=== PATIENT | female | born 1970 | race Caucasian/White ===

== ENCOUNTER 2016-10-11 20:53 | Emergency (ER) | payer MEDICARE, MEDICAID ==
[~2016-10-11] VITALS: Ht 160 cm; Wt 63.5 kg
--- NOTE | 2016-10-11 21:13 | Emergency Room Report ---
History of Present Illness General Chief Complaint: Female Urogenital Problems Source: Patient, EMS Present Illness HPI Patient is a 46-year-old female brought in from home for a possible clogged Huber catheter. Patient was noted to have a decreased urine output for the past 2 hours. Patient was noted a prior history of spina bifida. She had not been having any noted fever. Allergies: Coded Allergies: PENICILLIN G (Verified Allergy, Unknown, 10/11/16) Patient History Last Menstrual Period: Unable to obtain Now: No Reviewed Nursing Documentation: PMH: Agreed, PSxH: Agreed Nursing Documentation-PMH Past Medical History: No History, Except For Review of Systems All Other Systems: limited - by poor historian Physical Exam Vital Signs Date Time Temp Pulse Resp B/P Pulse Ox O2 Delivery O2 Flow Rate FiO2 10/11/16 20:53 96.8 98 16 112/74 94 Room Air General Appearance: well appearing, no apparent distress, alert, GCS 15 Head: normocephalic, atraumatic ENT: hearing grossly normal, normal voice Neck: full range of motion, supple Respiratory: no respiratory distress, speaking full sentences Cardiovascular #1: normal inspection, regular rate, rhythm Gastrointestinal: non tender, soft Musculoskeletal: no calf tenderness Neurologic: responsive, normal gait, other - eyes open, verbal output with echolalia Psychiatric: normal inspection, mood/affect normal Skin: no rash Medical Decision Making ER Course Patient presented for Huber catheter malfunction. Differential diagnosis included was not limited to the displacement Huber, clogged, renal failure among others.The patient was given prescription for Macrobid. She was discharged with family. The suprapubic catheter appeared to be working well.Patient family was advised to return if she began having fever persistent vomiting or other concerns. Last Vital Signs Date Time Temp Pulse Resp B/P Pulse Ox O2 Delivery O2 Flow Rate FiO2 10/11/16 20:53 96.8 98 16 112/74 94 Room Air Status: improved Disposition: HOME, SELF-CARE Condition: Stable Scripts Nitrofurantoin Monohyd/M-Cryst* (MACROBID 100 MG*) 100 Mg Capsule 100 MG ORAL EVERY 12 HOURS, #7 CAP Prov: Ahsan Simon 10/11/16 Ahsan Simon Oct 11, 2016 21:13
[2016-10-11] MEDS ORDERED: NITROFURANTOIN100 M2 ORAL (21:39)
[2016-10-11 21:51] VITALS: BP 115/86
[2016-10-11 22:00] VITALS: BP 115/86
[2016-11-13] MEDS ORDERED: LEVAQUIN750 MG ORAL (06:54)
== END 2016-10-11 22:10 | disposition home or self-care (01) ==
LOC: EDBD 20:53 → EMR 21:18
DX: Z46.6 Encounter for fitting and adjustment of urinary device (principal); R39.14 Feeling of incomplete bladder emptying; Q05.9 Spina bifida, unspecified; Z88.0 Allergy status to penicillin
CPT/HCPCS: 99283

== ENCOUNTER 2016-11-06 00:41 | Inpatient (IN) | payer MEDICARE, MEDICAID ==
[2016-11-06] VITALS (10 sets, daily range): BP systolic 104–126; BP diastolic 50–80
[~2016-11-06] VITALS: Ht 157.5 cm; Wt 77.1 kg
[~2016-11-06 00:41] MED LIST: NITROFURANTOIN100 M2 ORAL
[2016-11-06] MEDS ORDERED: Azithromycin 500 MG in NS 275 ML IV ONE (00:45)
[2016-11-06] MEDS ORDERED: Ipratropium 0.02% Inh Soln 2.5ml UD HHN ONE (00:45)
[2016-11-06] MEDS ORDERED: Albuterol ud Inhalation HHN ONE (00:45)
[2016-11-06] MEDS ORDERED: cefTRIAXone 1 GM in NS 55 ML IV ONE (00:45)
--- NOTE | 2016-11-06 00:52 | Emergency Room Report ---
History of Present Illness General Chief Complaint: To Be Triaged Source: Patient, Family Member, EMS Present Illness HPI EMS was called because the family is having difficulty with CPAP and the patient had low oxygen saturations. Apparently they couldn't get the oxygen O2 sat above 88%. Once EMS started high flow oxygen the oxygen saturation went up to 98%. The patient denies any pain. She denies any cough. She does have a nebulizer at home. She denies any wheezing also. The patient has spina bifida and mental retardation but is able to answer questions. She also has a suprapubic catheter. H/O hydrocephalus post COYOTE HUNTER shunt. Allergies: Coded Allergies: PENICILLIN G (Verified Allergy, Unknown, 10/11/16) Patient History Past Medical History: see triage record Past Surgical History: other - suprapubic catheter, COYOTE HUNTER shunt Social History: Denies: smoking Social History Narrative at home with sister Last Menstrual Period: Unknown Now: No Reviewed Nursing Documentation: PMH: Agreed, PSxH: Agreed Nursing Documentation-PMH Past Medical History: No History, Except For Hx Neurological Problems: Yes - Spina Bifida (Gustavo in place) Review of Systems All Other Systems: negative except mentioned in HPI Physical Exam Vital Signs Date Time Temp Pulse Resp B/P Pulse Ox O2 Delivery O2 Flow Rate FiO2 11/06/16 00:33 97.9 98 22 123/78 99 Non-Rebreather 15.0 General Appearance: other - short stature, Chronically Ill Head: other - facial assymmetry Eyes: bilateral eye PERRL, bilateral eye normal inspection ENT: moist mucus membranes Neck: supple Respiratory: no retraction, crackles, rales Cardiovascular #1: regular rate, rhythm Cardiovascular #2: 2+ radial (L) Gastrointestinal: normal bowel sounds, non tender, soft, no mass Genitourinary: other - suprapubic catheter Musculoskeletal: other - short stature with deformity of LE Neurologic: alert, responsive, other - yes no questions, LE parasis Psychiatric: depressed affect Skin: normal color, no rash Medical Decision Making Diagnostic Impression: Primary Impression: Sepsis Qualified Codes: A41.9 - Sepsis, unspecified organism Additional Impressions: Bilateral pneumonia Qualified Codes: J18.9 - Pneumonia, unspecified organism Spina bifida Qualified Codes: Q05.2 - Lumbar spina bifida with hydrocephalus Suprapubic catheter S/P COYOTE HUNTER shunt ER Course Patient presents with hypoxia. Ddx: pneumonia, aspiration, asthma, bronchitis amongst others. Patient complex. Also risk for UTI with suprapubic catheter. Evaluation with labs, EKG, CXR. Treatment with albuterol and antibiotics. CXR with bilateral infiltrates. WBC elevated as is lactic acid. Pyuria. Fluid resuscitation for sepsis initiated. BP improved. Patient improved with stable sats. Admitted tele Dr. Pryor. Laboratory Tests Test 11/06/16 00:46 11/06/16 00:57 White Blood Count 24.5 K/UL (4.8-10.8) *H Red Blood Count 6.05 M/UL (4.20-5.40) H Hemoglobin 13.4 G/DL (12.0-16.0) Hematocrit 43.6 % (37.0-47.0) Mean Corpuscular Volume 72 FL (80-99) L Mean Corpuscular Hemoglobin 22.1 PG (27.0-31.0) L Mean Corpuscular Hemoglobin Concent 30.7 G/DL (32.0-36.0) L Red Cell Distribution Width 17.4 % (11.6-14.8) H Platelet Count 365 K/UL (150-450) Mean Platelet Volume 6.2 FL (6.5-10.1) L Neutrophils (%) (Auto) % (45.0-75.0) Lymphocytes (%) (Auto) % (20.0-45.0) Monocytes (%) (Auto) % (1.0-10.0) Eosinophils (%) (Auto) % (0.0-3.0) Basophils (%) (Auto) % (0.0-2.0) Neutrophils % (Manual) Pending Lymphocytes % (Manual) Pending Platelet Estimate Pending Platelet Morphology Pending Prothrombin Time 10.1 SEC (9.30-11.50) Prothrombin Time INR 1.0 (0.9-1.1) PTT 30 SEC (23-33) Sodium Level 140 mEQ/L (135-145) Potassium Level 3.9 mEQ/L (3.4-4.9) Chloride Level 97 mEQ/L (98-107) L Carbon Dioxide Level 29 mEQ/L (20-30) Anion Gap 14 (5-15) Blood Urea Nitrogen 10 mg/dL (7-23) Creatinine 0.4 mg/dL (0.5-0.9) L Estimate Glomerular Filtration Rate > 60 mL/min (>60) Glucose Level 158 mg/dL (74-106) H Lactic Acid Level 3.50 mmol/L (0.66-2.22) H Calcium Level 9.3 mg/dL (8.6-10.2) Total Bilirubin 0.3 mg/dL (0.0-1.2) Aspartate Amino Transferase (AST) 12 U/L (5-40) Alanine Aminotransferase (ALT) 7 U/L (3-33) Alkaline Phosphatase 109 U/L (35-104) H Total Creatine Kinase 14 U/L (26-140) L Troponin I < 0.30 ng/mL (<=0.30) Pro-B-Type Natriuretic Peptide 62 pg/mL (0-125) Total Protein 7.9 g/dL (6.6-8.7) Albumin 3.4 g/dL (3.5-5.2) L Globulin 4.5 g/dL Albumin/Globulin Ratio 0.7 (1.0-2.7) L Urine Color Yellow Urine Appearance Cloudy Urine pH 8 (4.5-8.0) Urine Specific [place] 1.015 (1.005-1.035) Urine Protein 3+ (NEGATIVE) H Urine Glucose (UA) Negative (NEGATIVE) Urine Ketones 1+ (NEGATIVE) H Urine Occult Blood 4+ (NEGATIVE) H Urine Nitrite Positive (NEGATIVE) H Urine Bilirubin Negative (NEGATIVE) Urine Urobilinogen Normal MG/DL (0.0-1.0) Urine Leukocyte Esterase 3+ (NEGATIVE) H Urine RBC 5-10 /HPF (0 - 2) H Urine WBC 15-20 /HPF (0 - 2) H Urine Squamous Epithelial Cells None /LPF (NONE/OCC) Urine Triple Phosphate Crystals Moderate /LPF (NONE) H Urine Amorphous Sediment Many /LPF (NONE) H Urine Bacteria Many /HPF (NONE) H EKG Diagnostic Results Rate: tachycardiac ST Segments: no acute changes Rhythm Strip Diag. Results EP Interpretation: yes Rhythm: no PVC's, no ectopy, other - ST Chest X-Ray Diagnostic Results EP Interpretation: Yes Findings: no effusion, no pneumothorax, other - bilateral infiltrates, COYOTE HUNTER shunt , [place] rods Number of Views: 1 Last Vital Signs Date Time Temp Pulse Resp B/P Pulse Ox O2 Delivery O2 Flow Rate FiO2 11/06/16 00:33 97.9 98 22 123/78 99 Non-Rebreather 15.0 Status: improved Disposition: ADMITTED INPATIENT Condition: Serious Perfecto Patel M.D. Nov 06, 2016 00:52
[2016-11-06 01:07] LABS: APPEARANCE,URINE CLOUDY; KETONES,URINE 1+ (NEGATIVE); LEUKOCYTE ESTERASE ,URINE 3+ (NEGATIVE); NITRITE,URINE POSITIVE (NEGATIVE); PH,URINE 8 (4.5-8.0); PROTEIN,URINE 3+ (NEGATIVE); UROBILINOGEN,URINE NORMAL MG/DL (0.0-1.0)
[2016-11-06 01:08] LABS: MEAN CORPUSCULAR HEMOGLOBIN 22.1 PG (27.0-31.0); MEAN CORPUSCULAR HGB CONC 30.7 G/DL (32.0-36.0); MEAN CORPUSCULAR VOLUME 72 FL (80-99); MEAN PLATELET VOLUME 6.2 FL (6.5-10.1); PLATELET COUNT 365 K/UL (150-450); RED BLOOD COUNT 6.05 M/UL (4.20-5.40); RED CELL DISTRIBUTION WIDTH 17.4 % (11.6-14.8)
[2016-11-06 01:17] LABS: PROTHROMBIN TIME 10.1 SEC (9.30-11.50)
[2016-11-06] MEDS ORDERED: Azithromycin Inj IV ONE (01:18)
[2016-11-06 01:25] LABS: ALANINE AMINOTRANSFERASE 7 U/L (3-33); ALBUMIN/GLOBULIN RATIO 0.7 (1.0-2.7); ANION GAP 14 (5-15); ASPARTATE AMINO TRANSFERASE 12 U/L (5-40); CALCIUM 9.3 mg/dL (8.6-10.2); CARBON DIOXIDE 29 mEQ/L (20-30); CHLORIDE 97 mEQ/L (98-107); CREATININE 0.4 mg/dL (0.5-0.9); GLOMERULAR FILTRATION RATE > 60 mL/min (>60); HEMOLYSIS 8; POTASSIUM 3.9 mEQ/L (3.4-4.9); SODIUM 140 mEQ/L (135-145); TOTAL PROTEIN 7.9 g/dL (6.6-8.7)
[2016-11-06 01:30] LABS: WHITE BLOOD COUNT 24.5 K/UL (4.8-10.8)
[2016-11-06 01:32] LABS: REFLEX LACTIC ACID YES OR NO YES
[2016-11-06 01:38] LABS: WBC,URINE 15-20 /HPF (0 - 2)
[2016-11-06] MEDS ORDERED: DOCUSATE SODIU100 MG ORAL (01:38)
[2016-11-06] MEDS ORDERED: ELIQUIS5 MG PO (01:38)
[2016-11-06] MEDS ORDERED: MULTIVITAMINS1 EAC2 ORAL (01:38)
[2016-11-06] MEDS ORDERED: SENNA8.6 M2 PO (01:38)
[2016-11-06] MEDS ORDERED: ASCORBIC ACID500 MG ORAL (01:38)
[2016-11-06] MEDS ORDERED: TYLENOL325 MG ORAL (01:38)
[2016-11-06] MEDS ORDERED: LACTULOSE20 GM/301 ORAL (01:38)
[2016-11-06 01:39] LABS: AMORPHOUS SEDIMENT,UR MANY /LPF; BACTERIA,URINE MANY /HPF; TRIPLE PHOSPHATE CRYSTAL,UR MODERATE /LPF
[2016-11-06 01:40] LABS: TROPONIN I < 0.30 ng/mL (<=0.30)
[2016-11-06] MEDS ORDERED: Vancomycin 1 GM in D5W 275 ML IVPB ONE (01:45)
[2016-11-06 02:51] LABS: BAND NEUTROPHILS % (MANUAL) 31 % (0-8); BASOPHILS % (MANUAL) 0 % (0-2); EOSINOPHILS % (MANUAL) 0 % (0-3); LYMPHOCYTES % (MANUAL) 7 % (20-45); NEUTROPHILS % (MANUAL) 58 % (45-75); PLATELET ESTIMATE ADEQUATE; PLATELET MORPHOLOGY NORMAL; TOTAL CELLS COUNTED 100
[2016-11-06] MEDS ORDERED: Vancomycin 1gm inj IVPB ONE (02:59)
[2016-11-06 03:14] LABS: REFLEX LACTIC ACID YES OR NO YES
[2016-11-06] MEDS ORDERED: Mylanta II UD 30ml ORAL PRN (07:15)
[2016-11-06] MEDS ORDERED: Nitroglycerin Subl 0.4mg tab (Bottle Of 25) SL PRN (07:15)
[2016-11-06] MEDS ORDERED: DuoNeb 0.5-3(2.5)mg/3ml neb HHN PRN (07:15)
[2016-11-06] MEDS ORDERED: Miralax 17gm pkt ORAL PRN (07:15)
[2016-11-06] MEDS ORDERED: Amikacin Rx to dose MISC PRN (07:15)
[2016-11-06] MEDS ORDERED: Promethazine/Codeine 5ml UD ORAL PRN (07:15)
[2016-11-06] MEDS ORDERED: Amikacin 750 MG in NS 110 ML IV SCH (09:00)
[2016-11-06] MEDS: Heparin 5000 units/ml inj SUBQ SCH ×2 (10:03→21:52)
--- NOTE | 2016-11-06 11:22 | Consultation ---
Consult Note Consult Note ID Dic# [id number] ACE LIND M.D. Nov 06, 2016 11:22
[2016-11-06] MEDS: Vancomycin 1250mg/D5W 275ml IVPB SCH ×2 (12:28)
--- NOTE | 2016-11-06 13:41 | Cardiology Report ---
APPROVED REPORT EKG Measurement Heart [id number] [id number] Sinus tachycardia RAD Otherwise normal ECG
[2016-11-06] MEDS ORDERED: Vancomycin 1 GM in D5W 275 ML IVPB SCH (14:00)
[2016-11-06] MEDS: Aztreonam Inj 1 GM in NS 55 ML IVPB SCH ×2 (14:20→21:53)
--- NOTE | 2016-11-06 14:43 | History and Physical ---
History of Present Illness General Date patient seen: Nov 06, 2016 Reason for Hospitalization: Dyspnea/Respdistress Present Illness HPI 46 year old female with hx of leggett bifida and mental retardation, suprapubic catheter, hydrocephalus with HUMAN SERVICES SUPERVISOR shunt brought in by paramedics with CC of had low oxygen saturations. Once EMS started high flow oxygen the oxygen saturation went up to 98%. Initial evaluation in ER , showed that she had pulmonary edema in her CXR and very high WBC. She looked comfortable. She is admitted to [facility] for sepsis,pulmonary edema. Allergies: Coded Allergies: PENICILLIN G (Verified Allergy, Unknown, 10/11/16) Medication History Scheduled Apixaban (Eliquis), 5 MG PO BID, (Reported) Ascorbic Acid* (Ascorbic Acid*), 500 MG ORAL TWICE A DAY, (Reported) Docusate Sodium* (Docusate Sodium*), 100 MG ORAL TWICE A DAY, (Reported) Multivitamins* (Multivitamins*), 1 TAB ORAL DAILY, (Reported) Nitrofurantoin Monohyd/M-Cryst* (Macrobid 100 Mg*), 100 MG ORAL EVERY 12 HOURS Scheduled PRN Acetaminophen (Tylenol), 650 MG ORAL Q6H PRN for Prn Pain/Headache/Temp > 101, ( Reported) Miscellaneous Medications Lactulose (Lactulose*), 10 ML ORAL, (Reported) Sennosides (Senna), 8.6 MG PO, (Reported) Patient History Healthcare decision maker Resuscitation status Full Code Advanced Directive on File Past Medical/Surgical History Past Medical/Surgical History: (1) S/P HUMAN SERVICES SUPERVISOR shunt (2) Spina bifida (3) Suprapubic catheter Review of Systems All Other Systems: negative except mentioned in HPI Physical Exam General Appearance: WD/WN, no apparent distress Lines, tubes and drains: peripheral HEENT: normocephalic, atraumatic Neck: non-tender, normal alignment Respiratory/Chest: chest wall non-tender, lungs clear Cardiovascular/Chest: normal peripheral pulses Abdomen: normal bowel sounds Skin Exam: normal pigmentation 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, no motor/sensory deficits Last 24 Hour Vital Signs Date Time Temp Pulse Resp B/P Pulse Ox O2 Delivery O2 Flow Rate FiO2 11/06/16 11:36 98.3 108 20 111/80 97 Nasal Cannula 3.0 11/06/16 09:05 103 11/06/16 08:50 98.1 105 20 112/65 96 Nasal Cannula 3.0 11/06/16 08:10 95 17 113/62 97 Nasal Cannula 2.0 11/06/16 07:14 97.7 105 17 121/51 97 Nasal Cannula 2.0 11/06/16 06:44 97.7 105 17 121/51 97 Nasal Cannula 2.0 11/06/16 05:34 97.7 105 17 116/61 97 Nasal Cannula 2.0 11/06/16 03:46 97.7 104 18 126/76 100 Nasal Cannula 2.0 11/06/16 02:30 98.7 105 18 108/62 100 Nasal Cannula 2.0 11/06/16 01:51 101 18 100 Nasal Cannula 2.0 11/06/16 01:23 113 18 96 Nasal Cannula 2.0 11/06/16 01:22 113 18 Nasal Cannula 2.0 11/06/16 00:45 98.7 118 23 104/50 99 Nasal Cannula 4.0 11/06/16 00:45 118 23 Nasal Cannula 4.0 11/06/16 00:33 97.9 98 22 123/78 99 Non-Rebreather 15.0 Intake and Output 11/05/16 11/06/16 19:00 07:00 Intake Total 3935 ml Balance 3935 ml IV Total 1330 ml Other 2605 ml Laboratory Tests Test 11/06/16 00:46 11/06/16 00:57 11/06/16 02:30 11/06/16 10:20 White Blood Count 24.5 K/UL (4.8-10.8) *H Red Blood Count 6.05 M/UL (4.20-5.40) H Hemoglobin 13.4 G/DL (12.0-16.0) Hematocrit 43.6 % (37.0-47.0) Mean Corpuscular Volume 72 FL (80-99) L Mean Corpuscular Hemoglobin 22.1 PG (27.0-31.0) L Mean Corpuscular Hemoglobin Concent 30.7 G/DL (32.0-36.0) L Red Cell Distribution Width 17.4 % (11.6-14.8) H Platelet Count 365 K/UL (150-450) Mean Platelet Volume 6.2 FL (6.5-10.1) L Neutrophils (%) (Auto) % (45.0-75.0) Lymphocytes (%) (Auto) % (20.0-45.0) Monocytes (%) (Auto) % (1.0-10.0) Eosinophils (%) (Auto) % (0.0-3.0) Basophils (%) (Auto) % (0.0-2.0) Differential Total Cells Counted 100 Neutrophils % (Manual) 58 % (45-75) Lymphocytes % (Manual) 7 % (20-45) L Monocytes % (Manual) 4 % (1-10) Eosinophils % (Manual) 0 % (0-3) Basophils % (Manual) 0 % (0-2) Band Neutrophils 31 % (0-8) H Platelet Estimate Adequate Platelet Morphology Normal Red Blood Cell Morphology Normal Prothrombin Time 10.1 SEC (9.30-11.50) Prothromb Time International Ratio 1.0 (0.9-1.1) Activated Partial Thromboplast Time 30 SEC (23-33) Sodium Level 140 mEQ/L (135-145) Potassium Level 3.9 mEQ/L (3.4-4.9) Chloride Level 97 mEQ/L (98-107) L Carbon Dioxide Level 29 mEQ/L (20-30) Anion Gap 14 (5-15) Blood Urea Nitrogen 10 mg/dL (7-23) Creatinine 0.4 mg/dL (0.5-0.9) L Estimat Glomerular Filtration Rate > 60 mL/min (>60) Glucose Level 158 mg/dL (74-106) H Lactic Acid Level 3.50 mmol/L (0.66-2.22) H 3.00 mmol/L (0.66-2.22) H 1.90 mmol/L (0.66-2.22) Calcium Level 9.3 mg/dL (8.6-10.2) Total Bilirubin 0.3 mg/dL (0.0-1.2) Aspartate Amino Transf (AST/SGOT) 12 U/L (5-40) Alanine Aminotransferase (ALT/SGPT) 7 U/L (3-33) Alkaline Phosphatase 109 U/L (35-104) H Total Creatine Kinase 14 U/L (26-140) L Troponin I < 0.30 ng/mL (<=0.30) Pro-B-Type Natriuretic Peptide 62 pg/mL (0-125) Total Protein 7.9 g/dL (6.6-8.7) Albumin 3.4 g/dL (3.5-5.2) L Globulin 4.5 g/dL Albumin/Globulin Ratio 0.7 (1.0-2.7) L Urine Color Yellow Urine Appearance Cloudy Urine pH 8 (4.5-8.0) Urine Specific [place] 1.015 (1.005-1.035) Urine Protein 3+ (NEGATIVE) H Urine Glucose (UA) Negative (NEGATIVE) Urine Ketones 1+ (NEGATIVE) H Urine Occult Blood 4+ (NEGATIVE) H Urine Nitrite Positive (NEGATIVE) H Urine Bilirubin Negative (NEGATIVE) Urine Urobilinogen Normal MG/DL (0.0-1.0) Urine Leukocyte Esterase 3+ (NEGATIVE) H Urine RBC 5-10 /HPF (0 - 2) H Urine WBC 15-20 /HPF (0 - 2) H Urine Squamous Epithelial Cells None /LPF (NONE/OCC) Urine Triple Phosphate Crystals Moderate /LPF (NONE) H Urine Amorphous Sediment Many /LPF (NONE) H Urine Bacteria Many /HPF (NONE) H Height (Feet): 5 Height (Inches): 2.00 Weight (Pounds): 170 Medications Current Medications Medications (Trade) Dose Ordered Sig/Sandeep Route PRN Reason Start Time Stop Time Status Last Admin Dose Admin Acetaminophen (Tylenol) 650 mg Q4H PRN ORAL T>100.5 11/06/16 07:15 12/06/16 07:14 Al Hydroxide/Mg Hydroxide (Mylanta II) 30 ml Q6H PRN ORAL dyspepsia 11/06/16 07:15 12/06/16 07:14 Albuterol/ Ipratropium (DuoNeb 0.5-3(2.5)mg/3ml) 3 ml Q4H PRN HHN Shortness of Breath 11/06/16 07:15 11/11/16 07:14 Aztreonam/Sodium Chloride (Azactam/Sodium Chloride) 55 ml @ 110 mls/hr EVERY 8 HOURS IVPB 11/06/16 14:00 11/13/16 13:59 11/06/16 14:20 Heparin Sodium (Porcine) (Heparin 5000 units/ml) 5,000 units EVERY 12 HOURS SUBQ 4/17/17 09:00 12/06/16 08:59 11/06/16 10:03 Levofloxacin (Levaquin 750mg/ D5W) 150 ml @ 100 mls/hr Q24H IVPB 11/06/16 14:00 11/13/16 13:59 Nitroglycerin (Ntg) 0.4 mg Q5M PRN SL Prn Chest Pain 11/06/16 07:15 12/06/16 07:14 Polyethylene Glycol (Miralax) 17 gm DAILYPRN PRN ORAL Constipation 11/06/16 07:15 12/06/16 07:14 Promethazine HCl/ Codeine 5 ml 5 ml Q4H PRN ORAL For Cough 11/06/16 07:15 12/06/16 07:14 Temazepam (Restoril) 15 mg HSPRN PRN ORAL Insomnia 11/06/16 21:00 11/13/16 20:59 Vancomycin HCl 1.25 gm/Dextrose 275 ml @ 183.333 mls/hr Q12HR@0000,1200 IVPB 11/06/16 12:00 11/11/16 11:59 11/06/16 12:28 Vancomycin HCl 1 ea 1 ea DAILY PRN MISC . 11/06/16 07:30 12/06/16 07:29 Assessment/Plan Problem List: (1) Bilateral pneumonia ICD Codes: J18.9 - Pneumonia, unspecified organism SNOMED: 278486038, 545184007 Qualifiers: Qualified Codes: J18.9 - Pneumonia, unspecified organism (2) Sepsis ICD Codes: A41.9 - Sepsis, unspecified organism SNOMED: 42192225, 009127801 Qualifiers: Qualified Codes: A41.9 - Sepsis, unspecified organism (3) Pulmonary edema ICD Codes: J81.1 - Chronic pulmonary edema SNOMED: 55066635 (4) Spina bifida ICD Codes: Q05.9 - Spina bifida, unspecified SNOMED: 52734951, 440329249 Qualifiers: Qualified Codes: Q05.2 - Lumbar spina bifida with hydrocephalus (5) S/P HUMAN SERVICES SUPERVISOR shunt ICD Codes: Z98.2 - Presence of cerebrospinal fluid drainage device SNOMED: 229179688, 24785178 Assessment/Plan dominguez culture Iv antibiotics check echo sputum for c/s f/u wbc f/u BNP JARET HERNÁNDEZ Nov 06, 2016 14:43
--- NOTE | 2016-11-06 14:48 | Diagnostic Imaging Report ---
Indication: COUGH Technique: One view of the chest Comparison: none Findings: There is scoliotic deformity. There is a spinal fusion alysha. There is a right sided ventriculoperitoneal shunt tubing noted. There is diffuse interstitial and alveolar probable disease, likely pulmonary edema. The heart is mildly enlarged. No definite effusions. Impression: Bilateral diffuse interstitial and alveolar infiltrates versus edema. Borderline cardiomegaly Postsurgical changes, as described This agrees with the preliminary interpretation provided by the emergency room physician
--- NOTE | 2016-11-06 16:06 | Wound Care Consultation ---
Wound Assessment Wound Assessment : Wound Present on Admission: Yes New Wound: No Status Change of Wound: No Wound Location Body Site Modif: left Wound Location Body Site: buttocks Wound Type: pressure ulcer Alyssa Test: Does not Alyssa Pressure Ulcer Stage: IV/unstageable Wound Thickness: Full Thickness Wound Length: 8.0 Wound Width: 10.0 Wound Depth: 0.3 Percent of Wound [place]/Red: 100 Wound Drainage Description: Serosanguineous Wound Drainage Amount: Scant Wound Drainage Odor: Mild Odor Tissue Surrounding Wound: Macerated Wound General Appearance: Reddened, Draining Wound Comment #1 Left buttock stage IV/unstageable chronic pressure ulcer Recommendation -Left buttock chronic stage IV/unstageable pressure ulcer Cleanse with saline, pat dry, apply Hydrogel, apply calcium alginate, cover with bordered gauze daily and PRN soiled/dislodged -Turn and reposition -Keep clean and dry -Optimize nutrition -Offload both heels -Heel protector -Low air loss mattress -Assess and f/u accordingly for any changes YANN OWEN RN Nov 06, 2016 16:06
--- NOTE | 2016-11-06 21:28 | Consultation ---
DATE OF CONSULTATION: INFECTIOUS DISEASES CONSULTATION CONSULTING PHYSICIAN: Serafin Buck M.D REFERRING PHYSICIAN: Chyna Pryor M.D. REASON FOR CONSULTATION: Evaluation of the patient for sepsis, pneumonia, antibiotic management. HISTORY OF PRESENT ILLNESS: The patient is a 46-year-old female with multiple medical problems who resides at home with family, developed sudden onset of shortness of breath, diaphoresis and was brought to the hospital. With impression of pneumonia, the patient has been started on IV antibiotics. An Infectious diseases consultation has been requested for further evaluation of the patient and antibiotic management. The patient has history of episode about a month ago thus the patient was admitted in [facility] for two weeks. Infectious diseases consultation requested for further evaluation of patient antibiotic management. PAST MEDICAL HISTORY: 1. Spina bifida. 2. History of hydrocephalus status post AIR TRAFFIC CONTROL EQUIPMENT REPAIRER shunt. 3. History of suprapubic catheter placement. MEDICATIONS: IV Aztreonam, vancomycin, and amikacin. ALLERGIES: Penicillin. SOCIAL HISTORY: The patient lives at home. FAMILY HISTORY: Noncontributory. REVIEW OF SYMPTOMS: A 10-point review was done and except what is mentioned has been negative. PHYSICAL EXAMINATION: VITAL SIGNS: Temperature 98 degrees, blood pressure 112/65, pulse 86, respiratory rate 18. HEENT: Mild pale conjunctivae. No icterus. NECK: No lymphadenopathy. CHEST: Coarse breathing sounds. HEART: S1 and S2. ABDOMEN: Soft and obese. EXTREMITIES: No cyanosis or lesions. NEUROLOGIC: Awake and alert. LABORATORY DATA: White blood cells 24, hemoglobin 13, platelets 365,000. UA showed 15 to 20 white blood cells and 5 to 10 red blood cells. BUN 10 creatinine 0.4. ALT and AST unremarkable. Alkaline phosphatase 109. ASSESSMENT: The patient is a 46-year-old female, who was brought to the hospital due to shortness of breath. The patient was found to have leukocytosis. The patient has history of penicillin allergy. According to family, the patient does not have a significant cough; however, in view of her leukocytosis, it is important to rule out real bacteremia, also urinary tract infection is the likely source of patient's infection. PLAN: 1. We will continue the patient on the aztreonam, vancomycin, and start the patient on Levaquin. We will hold amikacin. 2. Monitor CBC. 3. Monitor BMP. 4. Monitor cultures( blood, urine, and sputum). 5. Monitor the patient's clinical course and laboratories, based on those we will do further recommendation. Thank you, Dr. Pryor, for allowing me to participate in the care of this patient. I will follow the patient with you during this hospitalization. Serafin Buck M.D. DR: Ki JOB#: [id number] CC:
--- NOTE | 2016-11-06 22:48 | Cardiology Report ---
APPROVED REPORT EXAM: Two-dimensional and M-mode echocardiogram with Doppler and color Doppler. INDICATION Left Ventricular Function M-Mode DIMENSIONS IVSd1.0 (0.7-1.1cm)Left Atrium (MM)3.5 (1.6-4.0cm) LVDd4.5 (3.5-5.6cm)Aortic Root3.4 (2.0-3.7cm) PWd0.7 (0.7-1.1cm)Aortic Cusp Exc.1.9 (1.5-2.0cm) LVDs2.0 (2.5-4.0cm) PWs1.2 cm Technically difficult study due to poor acoustic windows. Study quality precludes accurate assessment of regional wall motion. Normal left ventricular chamber size, systolic function and wall motion. Left ventricular ejection fraction estimated to be 60 %. No evidence of ventricular hypertrophy. No evidence of pericardial fat or effusion. All other cardiac chamber sizes are within normal limits. Mild focal aortic valve sclerosis with adequate cusp excursion. Mildly thickened mitral valve leaflets with normal excursion. Mild mitral annulus and aortic root calcification. Pulmonic valve not well visualized. Normal tricuspid valve structure. A color flow and spectral Doppler study was performed and revealed: No aortic regurgitation. Trace mitral regurgitation. Mitral diastolic velocities suggest reduced left ventricular relaxation (Grade I). Trace tricuspid regurgitation. Tricuspid systolic velocities suggests peak right ventricular systolic pressure of 47 mmHg, consistent with moderate pulmonary hypertension. No pulmonic regurgitation present.
[2016-11-07] VITALS: BP 111/56
[2016-11-07] MEDS: Vancomycin 1250mg/D5W 275ml IVPB SCH ×2 (00:53)
[2016-11-07 04:00] VITALS: BP 117/74
[2016-11-07] MEDS: Aztreonam Inj 1 GM in NS 55 ML IVPB SCH ×3 (06:01→21:43)
[2016-11-07 07:34] VITALS: BP 115/63
[2016-11-07 08:10] LABS: ALANINE AMINOTRANSFERASE 6 U/L (3-33); ANION GAP 10 (5-15); ASPARTATE AMINO TRANSFERASE 9 U/L (5-40); CALCIUM 8.6 mg/dL (8.6-10.2); CARBON DIOXIDE 29 mEQ/L (20-30); CHLORIDE 100 mEQ/L (98-107); CREATININE 0.2 mg/dL (0.5-0.9); GLOMERULAR FILTRATION RATE > 60 mL/min (>60); HEMOLYSIS 3; PHOSPHORUS 3.8 mg/dL (2.5-4.8); POTASSIUM 3.9 mEQ/L (3.4-4.9); SODIUM 139 mEQ/L (135-145); TOTAL PROTEIN 5.9 g/dL (6.6-8.7)
[2016-11-07 08:18] LABS: BASOPHILS % (AUTO) 0.2 % (0.0-2.0); EOSINOPHILS % (AUTO) 2.4 % (0.0-3.0); LYMPHOCYTES % (AUTO) 14.2 % (20.0-45.0); MEAN CORPUSCULAR HEMOGLOBIN 21.4 PG (27.0-31.0); MEAN CORPUSCULAR HGB CONC 29.8 G/DL (32.0-36.0); MEAN CORPUSCULAR VOLUME 72 FL (80-99); MEAN PLATELET VOLUME 6.1 FL (6.5-10.1); MONOCYTES % (AUTO) 2.9 % (1.0-10.0); NEUTROPHILS % (AUTO) 80.3 % (45.0-75.0); PLATELET COUNT 274 K/UL (150-450); RED BLOOD COUNT 4.36 M/UL (4.20-5.40); RED CELL DISTRIBUTION WIDTH 17.3 % (11.6-14.8); WHITE BLOOD COUNT 13.5 K/UL (4.8-10.8)
[2016-11-07] MEDS: Heparin 5000 units/ml inj SUBQ SCH ×2 (08:56→21:52)
--- NOTE | 2016-11-07 09:45 | Cardiology Progress Note ---
Assessment/Plan Assessment/Plan bilat pulm, infiltrate likely infectious mild diastolic dysfunction norm lv systolic function rece pulm embolism pulm htn nephrostomy decub / osteo chronic indwellin catheter dout pulm edema abdiaziz lfollwo repat ekg and trop [id number] Objective Last 24 Hour Vital Signs Date Time Temp Pulse Resp B/P Pulse Ox O2 Delivery O2 Flow Rate FiO2 11/07/16 07:34 97.9 92 15 115/63 93 Room Air 11/07/16 07:33 Nasal Cannula 3.0 32 11/07/16 07:32 98 Nasal Cannula 3.0 11/07/16 07:30 89 18 Nasal Cannula 3.0 11/07/16 04:00 98.0 83 20 117/74 98 Nasal Cannula 2.0 11/07/16 04:00 89 11/07/16 03:44 92 18 97 Nasal Cannula 2.0 11/07/16 00:00 97.2 92 19 111/56 98 Nasal Cannula 2.0 11/07/16 00:00 92 11/06/16 20:00 97.4 99 20 119/76 91 Room Air 11/06/16 20:00 99 11/06/16 19:40 96 Nasal Cannula 3.0 11/06/16 19:40 Nasal Cannula 3.0 32 11/06/16 19:38 103 18 Nasal Cannula 3.0 11/06/16 16:00 103 11/06/16 15:41 97.9 103 20 114/60 95 Nasal Cannula 3.0 11/06/16 12:00 109 11/06/16 11:36 98.3 108 20 111/80 97 Nasal Cannula 3.0 Intake and Output 11/06/16 11/07/16 19:00 07:00 Intake Total 959.666 ml 476.666 ml Output Total 1800 ml 800 ml Balance -840.334 ml -323.334 ml Intake Oral 170 ml IV Total 789.666 ml 476.666 ml Output Urine Total 1800 ml 800 ml # Bowel Movements 2 Laboratory Tests Test 11/06/16 10:20 11/07/16 07:05 Lactic Acid Level 1.90 mmol/L (0.66-2.22) White Blood Count 13.5 K/UL (4.8-10.8) H Red Blood Count 4.36 M/UL (4.20-5.40) Hemoglobin 9.4 G/DL (12.0-16.0) L Hematocrit 31.4 % (37.0-47.0) L Mean Corpuscular Volume 72 FL (80-99) L Mean Corpuscular Hemoglobin 21.4 PG (27.0-31.0) L Mean Corpuscular Hemoglobin Concent 29.8 G/DL (32.0-36.0) L Red Cell Distribution Width 17.3 % (11.6-14.8) H Platelet Count 274 K/UL (150-450) Mean Platelet Volume 6.1 FL (6.5-10.1) L Neutrophils (%) (Auto) 80.3 % (45.0-75.0) H Lymphocytes (%) (Auto) 14.2 % (20.0-45.0) L Monocytes (%) (Auto) 2.9 % (1.0-10.0) Eosinophils (%) (Auto) 2.4 % (0.0-3.0) Basophils (%) (Auto) 0.2 % (0.0-2.0) Sodium Level 139 mEQ/L (135-145) Potassium Level 3.9 mEQ/L (3.4-4.9) Chloride Level 100 mEQ/L (98-107) Carbon Dioxide Level 29 mEQ/L (20-30) Anion Gap 10 (5-15) Blood Urea Nitrogen 7 mg/dL (7-23) Creatinine 0.2 mg/dL (0.5-0.9) L Estimat Glomerular Filtration Rate > 60 mL/min (>60) Glucose Level 108 mg/dL (74-106) H Calcium Level 8.6 mg/dL (8.6-10.2) Phosphorus Level 3.8 mg/dL (2.5-4.8) Total Bilirubin < 0.2 mg/dL (0.0-1.2) Aspartate Amino Transf (AST/SGOT) 9 U/L (5-40) Alanine Aminotransferase (ALT/SGPT) 6 U/L (3-33) Alkaline Phosphatase 81 U/L (35-104) Pro-B-Type Natriuretic Peptide 364 pg/mL (0-125) H Total Protein 5.9 g/dL (6.6-8.7) L Albumin 3.0 g/dL (3.5-5.2) L Globulin 2.9 g/dL Albumin/Globulin Ratio 1.0 (1.0-2.7) Microbiology Date/Time Source Procedure Growth Status 11/06/16 00:46 Blood Blood Culture - Preliminary NO GROWTH AFTER 24 HOURS Resulted 11/06/16 00:31 Blood Blood Culture - Preliminary NO GROWTH AFTER 24 HOURS Resulted SABINE BOSS Nov 07, 2016 09:45
[2016-11-07] MEDS ORDERED: NS 275ml ONE (10:57)
[2016-11-07] MEDS ORDERED: Tubing IV Secondary IV ONE (10:57)
--- NOTE | 2016-11-07 11:43 | Diagnostic Imaging Report ---
Indication: DYSPNEA Technique: One view of the chest Comparison: 11/06/2016 Findings: Allowing for technical differences, stable or slightly improved bilateral interstitial and alveolar infiltrates versus edema. The heart remains mildly enlarged. Other findings are unchanged Impression: Stable or minimally improved bilateral parenchymal disease, over one day
[2016-11-07 11:47] LABS: TROPONIN I < 0.30 ng/mL (<=0.30)
[2016-11-07] MEDS ORDERED: LR 1000ml ONE (12:00)
[2016-11-07] MEDS ORDERED: Lidocaine 1% MPF 10mg/ml 5ml ONE (12:00)
[2016-11-07] MEDS ORDERED: Propofol 10mg/ml 20ml IV ONE (12:00)
[2016-11-07 12:18] VITALS: BP 117/60
--- NOTE | 2016-11-07 13:22 | Pulmonology Progress Note ---
Assessment/Plan Problems: (1) Bilateral pneumonia (2) Sepsis (3) Pulmonary edema (4) Spina bifida (5) S/P GUIDE RAIL CLEANER shunt Assessment/Plan improving cardio note appreciated IV antibiotics check cultures med/surg Subjective ROS Limited/Unobtainable: No Constitutional: Reports: no symptoms HEENT: Repors: no symptoms Allergies: Coded Allergies: PENICILLIN G (Verified Allergy, Unknown, 10/11/16) All Systems: reviewed and negative except above Objective Last 24 Hour Vital Signs Date Time Temp Pulse Resp B/P Pulse Ox O2 Delivery O2 Flow Rate FiO2 11/07/16 12:18 97.0 89 14 117/60 98 Room Air 11/07/16 08:00 100 11/07/16 07:34 97.9 92 15 115/63 93 Room Air 11/07/16 07:33 Nasal Cannula 3.0 32 11/07/16 07:32 98 Nasal Cannula 3.0 11/07/16 07:30 89 18 Nasal Cannula 3.0 11/07/16 04:00 98.0 83 20 117/74 98 Nasal Cannula 2.0 11/07/16 04:00 89 11/07/16 03:44 92 18 97 Nasal Cannula 2.0 11/07/16 00:00 97.2 92 19 111/56 98 Nasal Cannula 2.0 11/07/16 00:00 92 11/06/16 20:00 97.4 99 20 119/76 91 Room Air 11/06/16 20:00 99 11/06/16 19:40 96 Nasal Cannula 3.0 11/06/16 19:40 Nasal Cannula 3.0 32 11/06/16 19:38 103 18 Nasal Cannula 3.0 11/06/16 16:00 103 11/06/16 15:41 97.9 103 20 114/60 95 Nasal Cannula 3.0 Intake and Output 11/06/16 11/07/16 19:00 07:00 Intake Total 959.666 ml 476.666 ml Output Total 1800 ml 800 ml Balance -840.334 ml -323.334 ml Intake Oral 170 ml IV Total 789.666 ml 476.666 ml Output Urine Total 1800 ml 800 ml # Bowel Movements 2 General Appearance: WD/WN HEENT: normocephalic, atraumatic Respiratory/Chest: chest wall non-tender, lungs clear Breasts: no masses Cardiovascular: normal peripheral pulses, normal rate Abdomen: normal bowel sounds Genitourinary: normal external genitalia Neurologic/Psychiatric: buhr dresser II-XII grossly normal Microbiology Date/Time Source Procedure Growth Status 11/06/16 00:46 Blood Blood Culture - Preliminary NO GROWTH AFTER 24 HOURS Resulted 11/06/16 00:31 Blood Blood Culture - Preliminary NO GROWTH AFTER 24 HOURS Resulted 11/06/16 00:57 Urine,Clean Catch Urine Culture - Preliminary Resulted Laboratory Tests 11/07/16 07:05: White Blood Count 13.5H, Red Blood Count 4.36, Hemoglobin 9.4L, Hematocrit 31.4L , Mean Corpuscular Volume 72L, Mean Corpuscular Hemoglobin 21.4L, Mean Corpuscular Hemoglobin Concent 29.8L, Red Cell Distribution Width 17.3H, Platelet Count 274, Mean Platelet Volume 6.1L, Neutrophils (%) (Auto) 80.3H, Lymphocytes (%) (Auto) 14.2L, Monocytes (%) (Auto) 2.9, Eosinophils (%) (Auto) 2.4, Basophils (%) (Auto) 0.2, Sodium Level 139, Potassium Level 3.9, Chloride Level 100, Carbon Dioxide Level 29, Anion Gap 10, Blood Urea Nitrogen 7, Creatinine 0.2L, Estimat Glomerular Filtration Rate > 60, Glucose Level 108H, Calcium Level 8.6, Phosphorus Level 3.8, Total Bilirubin < 0.2, Aspartate Amino Transf (AST/SGOT) 9, Alanine Aminotransferase (ALT/SGPT) 6, Alkaline Phosphatase 81, Pro-B-Type Natriuretic Peptide 364H, Total Protein 5.9L, Albumin 3.0L, Globulin 2.9, Albumin/Globulin Ratio 1.0 11/07/16 11:20: Troponin I < 0.30, Vancomycin Level Trough 20.4H Current Medications Medications (Trade) Dose Ordered Sig/Sandeep Route PRN Reason Start Time Stop Time Status Last Admin Dose Admin Acetaminophen (Tylenol) 650 mg Q4H PRN ORAL T>100.5 11/06/16 07:15 12/06/16 07:14 Al Hydroxide/Mg Hydroxide (Mylanta II) 30 ml Q6H PRN ORAL dyspepsia 11/06/16 07:15 12/06/16 07:14 Albuterol/ Ipratropium (DuoNeb 0.5-3(2.5)mg/3ml) 3 ml Q4H PRN HHN Shortness of Breath 11/06/16 07:15 11/11/16 07:14 11/07/16 03:44 Aztreonam/Sodium Chloride (Azactam/Sodium Chloride) 55 ml @ 110 mls/hr EVERY 8 HOURS IVPB 11/06/16 14:00 11/13/16 13:59 11/07/16 06:01 Heparin Sodium (Porcine) (Heparin 5000 units/ml) 5,000 units EVERY 12 HOURS SUBQ 11/06/16 09:00 12/06/16 08:59 11/07/16 08:56 Levofloxacin 150 ml @ 100 mls/hr Q24H IVPB 11/06/16 14:00 11/13/16 13:59 11/06/16 14:55 Nitroglycerin (Ntg) 0.4 mg Q5M PRN SL Prn Chest Pain 11/06/16 07:15 12/06/16 07:14 Polyethylene Glycol (Miralax) 17 gm DAILYPRN PRN ORAL Constipation 11/06/16 07:15 12/06/16 07:14 Promethazine HCl/ Codeine 5 ml 5 ml Q4H PRN ORAL For Cough 11/06/16 07:15 12/06/16 07:14 Temazepam (Restoril) 15 mg HSPRN PRN ORAL Insomnia 11/06/16 21:00 11/13/16 20:59 Vancomycin HCl 1 ea 1 ea DAILY PRN MISC . 11/06/16 07:30 12/06/16 07:29 Vancomycin HCl/ Dextrose (Vancomycin/D5W) 275 ml @ 183.708 mls/hr Q12HR@0300,1500 IVPB 11/07/16 15:00 11/12/16 14:59 JARET HERNÁNDEZ Nov 07, 2016 13:22
[2016-11-07] MEDS ORDERED: Vancomycin 1gm/D5W 275ml IVPB SCH ×2 (15:00)
[2016-11-07 16:01] VITALS: BP 121/69
[2016-11-07] MEDS ORDERED: Nitroglycerin Subl 0.4mg tab (Bottle Of 25) SL PRN (18:00)
[2016-11-07] MEDS ORDERED: Mylanta II UD 30ml ORAL PRN (19:15)
[2016-11-07] MEDS ORDERED: DuoNeb 0.5-3(2.5)mg/3ml neb HHN PRN (19:15)
[2016-11-07] MEDS ORDERED: Promethazine/Codeine 5ml UD ORAL PRN (19:15)
[2016-11-07 20:00] VITALS: BP_SYST 114; BP_SYST 176; BP_DIAS 64; BP_DIAS 90
--- NOTE | 2016-11-07 20:48 | Consultation ---
DATE OF CONSULTATION: 11/07/2016 CARDIOLOGY CONSULTATION REFERRING PHYSICIAN: Chyna Pryor M.D. REASON FOR REFERRAL: Possible pulmonary edema. HISTORY OF PRESENT ILLNESS: This is a very unfortunate young female with multiple medical problems. The patient was apparently brought to the emergency room of [facility] because of low oxygen saturation and concern about pneumonia versus pulmonary edema has been there, so this consultation is requested. The patient herself is really not able to provide any meaningful answers and reliable answers and her responses to the questions appeared to be different on repeat questioning. It appears from [facility] data, which I have been able to report that the patient was at [facility] in August 2016 with a diagnosis of sepsis secondary to catheter associated E. coli urinary tract infection and recent pulmonary embolism in the segmental branch of the left lower lobe and has been in a convalescent facility, was noted to be in low oxygen saturation. PAST MEDICAL HISTORY: Positive sepsis, as mentioned history of pulmonary embolism, sleep apnea, stricture status post left nephrostomy tube due to urinary obstruction and hydronephrosis and history of ureteral erosion, long-term indwelling Huber catheter, history of cystocele and bladder prolapse complicated by incomplete emptying and stones, uterine prolapse, chronic left buttock and sacral stage IV decubitus ulcers complicated by osteomyelitis with posterior iliac crest and sacral osteomyelitis, Down's syndrome with congenital cognitive impairment, spina bifida complicated with chronic paraplegia, status post hip and spinal surgery and MANAGER PROGRAMMING shunting, chronic anemia secondary to chronic disease and she has had femur fracture surgery, cystoscopy, debridement of wounds. ALLERGIES: She is allergic to penicillin. SOCIAL HISTORY: She does not smoke or drink. She lives at the present time at the facility. She is single. Never worked. REVIEW OF SYSTEMS: Really unable to obtain. Information is obtained from review of the [facility] medical records. On questioning, review of systems, the patient denies and then admits to abdominal pain. Denies and admits to chest pain. Denies and admits to shortness of breath. Denies and admits to coughing on questioning. Denies history of having any fevers or chills. She indicates she is 11 years old. PHYSICAL EXAMINATION: GENERAL: The patient is a middle-aged female. NECK: Supple. No jugular venous distention. LUNGS: Crackles noted bilaterally. CARDIAC: Regular rate and rhythm. No heaves, thrills, gallops, or rubs are noted. ABDOMEN: Soft and nontender. Positive bowel sounds. EXTREMITIES: There is no clubbing, cyanosis, nor is there any edema. NEUROLOGICAL: She is awake, alert, and responsive and in no apparent respiratory distress. Lower extremities are malformed and no edema is noted. LABORATORY AND DIAGNOSTIC DATA: White count 24.5 yesterday and now gone to 13.5, hemoglobin 13.4, yesterday and now to 9.4, and the platelet count of 365,000 and now down to 274,000. She had a differential of 58 polys and 31% bands yesterday. Her sodium is 139, potassium 3.9, chloride 100, bicarbonate 29, BUN of 7, creatinine 0.2 and glucose of 108. Liver function tests were all normal, except pro-BNP was only 364 and was 62 at the time of admission yesterday. The lactic acid was 3.5 and now down to 1.9. Coagulation, INR 1.2 and PTT of 30. Urinalysis shows 15 to 20 WBCs, 5 to 10 RBCs, and 3+ leukocyte esterase. Chest x-ray shows bilateral diffuse interstitial and alveolar infiltrates versus edema, borderline cardiomegaly. An echocardiogram has been performed and shows technically difficult study with normal left ventricular systolic function with extent visualized ejection fraction 50%. No significant valvular pathology. There is mild diastolic relaxation abnormality. Pulmonary systolic pressure is 47. Telemetry shows sinus rhythm. EKG shows sinus tachycardia, rate of 115 from yesterday and no ST or T-wave abnormalities were noted. ASSESSMENT: 1. Bilateral pulmonary infiltrates probably likely infectious and less likely pulmonary edema. 2. Diastolic dysfunction. 3. History of pulmonary embolism on Eliquis. 4. Recurrent infections urinary tract infection. 5. Down's syndrome. 6. Spina bifida. 7. Sacral decubitus ulcers. 8. Hydrocephalus status post ventriculoperitoneal shunting. 9. Hydronephrosis status post nephrostomy tube placement. 10. Pulmonary embolism. PLAN: Dr. Pryor, this patient was seen in cardiac consultation. The patient's LV function appears to be normal and she has no significant ST or T-wave abnormalities on her EKG and repeat troponin was negative yesterday and I will repeat again. Her proBNP was only 62 yesterday and it is only 364 today, not much to suggest congestive heart failure in the patient's diagnosis for this respiratory insufficiency. The fact that she has such elevated white count with left shift is more suggestive of infectious process than heart failure, as a cause of her symptoms. I will repeat the cardiac enzymes and an EKG and will follow vital signs and provide further assistance as become necessary. She does have some pulmonary hypertension, which may be result of her obesity as well as pulmonary emboli that she had sustained previously. The patient has been followed by Infectious Disease and I will follow the patient along with you. Irving Mackey M.D. DR: URIEL JOB#: [id number] CC:
[2016-11-08] VITALS (7 sets, daily range): BP systolic 105–127; BP diastolic 61–83
[2016-11-08] MEDS: Vancomycin 1 GM in D5W 275 ML IVPB SCH ×2 (02:47→16:03)
[2016-11-08] MEDS: Aztreonam Inj 1 GM in NS 55 ML IVPB SCH ×3 (05:37→20:47)
[2016-11-08 06:55] LABS: BASOPHILS % (AUTO) 0.7 % (0.0-2.0); EOSINOPHILS % (AUTO) 2.8 % (0.0-3.0); LYMPHOCYTES % (AUTO) 16.9 % (20.0-45.0); MEAN CORPUSCULAR HEMOGLOBIN 21.8 PG (27.0-31.0); MEAN CORPUSCULAR HGB CONC 30.6 G/DL (32.0-36.0); MEAN CORPUSCULAR VOLUME 71 FL (80-99); MEAN PLATELET VOLUME 6.2 FL (6.5-10.1); NEUTROPHILS % (AUTO) 75.7 % (45.0-75.0); PLATELET COUNT 293 K/UL (150-450); RED BLOOD COUNT 4.97 M/UL (4.20-5.40); RED CELL DISTRIBUTION WIDTH 17.1 % (11.6-14.8); WHITE BLOOD COUNT 10.1 K/UL (4.8-10.8)
[2016-11-08 07:02] LABS: PROTHROMBIN TIME 10.5 SEC (9.30-11.50)
[2016-11-08 07:06] LABS: ALANINE AMINOTRANSFERASE 5 U/L (3-33); ALBUMIN/GLOBULIN RATIO 0.7 (1.0-2.7); ANION GAP 11 (5-15); ASPARTATE AMINO TRANSFERASE 10 U/L (5-40); CALCIUM 9.1 mg/dL (8.6-10.2); CARBON DIOXIDE 30 mEQ/L (20-30); CHLORIDE 97 mEQ/L (98-107); CREATININE 0.3 mg/dL (0.5-0.9); GLOMERULAR FILTRATION RATE > 60 mL/min (>60); HEMOLYSIS 12; MAGNESIUM 1.8 mg/dL (1.7-2.5); PHOSPHORUS 4.3 mg/dL (2.5-4.8); POTASSIUM 4.3 mEQ/L (3.4-4.9); SODIUM 138 mEQ/L (135-145)
[2016-11-08] MEDS ORDERED: Miralax 17gm pkt ORAL PRN (07:15)
[2016-11-08] MEDS: Heparin 5000 units/ml inj SUBQ SCH ×2 (08:46→20:54)
[2016-11-08] MEDS ORDERED: Tubing IV Secondary IV ONE (09:52)
--- NOTE | 2016-11-08 16:08 | Infectious Diseases Prog Note ---
Assessment/Plan Assessment/Plan A: The patient is a 46-year-old female with Sepsis Pneumonia cxray : Stable or minimally improved bilateral parenchymal disease, over one day UTI : GNR x 2 Spina bifida History of hydrocephalus status post LOW PRESSURE KETTLE OPERATOR shunt History of suprapubic catheter placement PLAN: cont on the aztreonam, vancomycin and Levaquin d# 2 Monitor CBC. Monitor BMP. Monitor cultures( blood, urine, and sputum) Subjective Constitutional: Denies: anorexia, chills, drenching sweats, fatigue, fever, no symptoms, other Allergies: Coded Allergies: PENICILLIN G (Verified Allergy, Unknown, 10/11/16) Objective Vital Signs Last 24 Hour Vital Signs Date Time Temp Pulse Resp B/P Pulse Ox O2 Delivery O2 Flow Rate FiO2 11/08/16 12:15 97.2 81 18 127/80 92 Nasal Cannula 2.0 11/08/16 08:56 95 Nasal Cannula 3.0 11/08/16 08:56 90 16 Nasal Cannula 3.0 11/08/16 08:56 Nasal Cannula 3.0 32 11/08/16 08:15 97.3 85 18 115/74 91 Nasal Cannula 2.0 11/08/16 04:00 97.3 96 18 120/73 98 Nasal Cannula 2.0 11/08/16 00:00 97.3 90 18 116/74 96 Nasal Cannula 2.0 11/07/16 20:45 94 Nasal Cannula 2.0 11/07/16 20:00 98.1 94 18 114/64 90 Room Air 11/07/16 19:34 Nasal Cannula 3.0 32 11/07/16 19:33 90 18 Nasal Cannula 3.0 11/07/16 19:33 96 Nasal Cannula 3.0 11/07/16 16:01 97.0 101 20 121/69 96 Room Air 11/07/16 16:00 94 Height (Feet): 5 Height (Inches): 2.00 Weight (Pounds): 170 HEENT: anicteric Respiratory/Chest: normal breath sounds Cardiovascular: regular rhythm Abdomen: no organomegaly Microbiology Date/Time Source Procedure Growth Status 11/06/16 00:46 Blood Blood Culture - Preliminary NO GROWTH AFTER 48 HOURS Resulted 11/06/16 00:31 Blood Blood Culture - Preliminary NO GROWTH AFTER 48 HOURS Resulted 11/06/16 00:57 Urine,Clean Catch Urine Culture - Preliminary Gram Negative Bacillus 1 Gram Negative Bacillus 2 Resulted Laboratory Tests Test 11/08/16 06:25 White Blood Count 10.1 K/UL (4.8-10.8) Red Blood Count 4.97 M/UL (4.20-5.40) Hemoglobin 10.8 G/DL (12.0-16.0) L Hematocrit 35.4 % (37.0-47.0) L Mean Corpuscular Volume 71 FL (80-99) L Mean Corpuscular Hemoglobin 21.8 PG (27.0-31.0) L Mean Corpuscular Hemoglobin Concent 30.6 G/DL (32.0-36.0) L Red Cell Distribution Width 17.1 % (11.6-14.8) H Platelet Count 293 K/UL (150-450) Mean Platelet Volume 6.2 FL (6.5-10.1) L Neutrophils (%) (Auto) 75.7 % (45.0-75.0) H Lymphocytes (%) (Auto) 16.9 % (20.0-45.0) L Monocytes (%) (Auto) 4.0 % (1.0-10.0) Eosinophils (%) (Auto) 2.8 % (0.0-3.0) Basophils (%) (Auto) 0.7 % (0.0-2.0) Prothrombin Time 10.5 SEC (9.30-11.50) Prothromb Time International Ratio 1.0 (0.9-1.1) Activated Partial Thromboplast Time 29 SEC (23-33) Sodium Level 138 mEQ/L (135-145) Potassium Level 4.3 mEQ/L (3.4-4.9) Chloride Level 97 mEQ/L (98-107) L Carbon Dioxide Level 30 mEQ/L (20-30) Anion Gap 11 (5-15) Blood Urea Nitrogen 7 mg/dL (7-23) Creatinine 0.3 mg/dL (0.5-0.9) L Estimat Glomerular Filtration Rate > 60 mL/min (>60) Glucose Level 112 mg/dL (74-106) H Calcium Level 9.1 mg/dL (8.6-10.2) Phosphorus Level 4.3 mg/dL (2.5-4.8) Magnesium Level 1.8 mg/dL (1.7-2.5) Total Bilirubin < 0.2 mg/dL (0.0-1.2) Aspartate Amino Transf (AST/SGOT) 10 U/L (5-40) Alanine Aminotransferase (ALT/SGPT) 5 U/L (3-33) Alkaline Phosphatase 82 U/L (35-104) Total Protein 7.0 g/dL (6.6-8.7) Albumin 3.1 g/dL (3.5-5.2) L Globulin 3.9 g/dL Albumin/Globulin Ratio 0.7 (1.0-2.7) L Current Medications Medications (Trade) Dose Ordered Sig/Sandeep Route PRN Reason Start Time Stop Time Status Last Admin Dose Admin Acetaminophen (Tylenol) 650 mg Q4H PRN ORAL T>100.5 11/07/16 19:15 12/07/16 19:14 Al Hydroxide/Mg Hydroxide (Mylanta II) 30 ml Q6H PRN ORAL dyspepsia 11/07/16 19:15 12/07/16 19:14 Albuterol/ Ipratropium (DuoNeb 0.5-3(2.5)mg/3ml) 3 ml Q4H PRN HHN Shortness of Breath 11/07/16 19:15 11/12/16 19:14 Aztreonam 1 gm/ Sodium Chloride 55 ml @ 110 mls/hr EVERY 8 HOURS IVPB 11/07/16 22:00 11/14/16 21:59 11/08/16 13:28 Heparin Sodium (Porcine) (Heparin 5000 units/ml) 5,000 units EVERY 12 HOURS SUBQ 11/07/16 21:00 12/07/16 20:59 11/08/16 08:46 Levofloxacin 150 ml @ 100 mls/hr Q24H IVPB 11/08/16 14:00 11/15/16 13:59 11/08/16 14:02 Nitroglycerin (Ntg) 0.4 mg Q5M PRN SL Prn Chest Pain 11/07/16 18:00 12/07/16 17:59 Polyethylene Glycol (Miralax) 17 gm DAILYPRN PRN ORAL Constipation 11/08/16 07:15 12/08/16 07:14 Promethazine HCl/ Codeine (Phenergan with Codeine) 5 ml Q4H PRN ORAL For Cough 11/07/16 19:15 12/07/16 19:14 Temazepam (Restoril) 15 mg HSPRN PRN ORAL Insomnia 11/07/16 21:00 11/14/16 20:59 Vancomycin HCl (Vanco rx to dose) 1 ea DAILY PRN MISC . 11/08/16 09:00 12/08/16 08:59 Vancomycin HCl/ Dextrose (Vancomycin/D5W) 275 ml @ 183.708 mls/hr Q12HR@0300,1500 IVPB 11/08/16 03:00 11/13/16 02:59 11/08/16 02:47 ACE LIND M.D. Nov 08, 2016 16:07
--- NOTE | 2016-11-08 18:06 | Pulmonology Progress Note ---
Assessment/Plan Problems: (1) Bilateral pneumonia (2) Sepsis (3) Pulmonary edema (4) Spina bifida (5) S/P NURSE MIDWIFE shunt Assessment/Plan afebrile wbc normal now cultures still pending improving cardio note appreciated IV antibiotics check cultures med/surg Subjective ROS Limited/Unobtainable: No Interval Events: comfortable, awake, wants her mama Allergies: Coded Allergies: PENICILLIN G (Verified Allergy, Unknown, 10/11/16) Objective Last 24 Hour Vital Signs Date Time Temp Pulse Resp B/P Pulse Ox O2 Delivery O2 Flow Rate FiO2 11/08/16 16:00 97.4 81 18 127/77 98 Nasal Cannula 2.0 11/08/16 12:15 97.2 81 18 127/80 92 Nasal Cannula 2.0 11/08/16 08:56 95 Nasal Cannula 3.0 11/08/16 08:56 90 16 Nasal Cannula 3.0 11/08/16 08:56 Nasal Cannula 3.0 32 11/08/16 08:15 97.3 85 18 115/74 91 Nasal Cannula 2.0 11/08/16 04:00 97.3 96 18 120/73 98 Nasal Cannula 2.0 11/08/16 00:00 97.3 90 18 116/74 96 Nasal Cannula 2.0 11/07/16 20:45 94 Nasal Cannula 2.0 11/07/16 20:00 98.1 94 18 114/64 90 Room Air 11/07/16 19:34 Nasal Cannula 3.0 32 11/07/16 19:33 90 18 Nasal Cannula 3.0 11/07/16 19:33 96 Nasal Cannula 3.0 Intake and Output 11/07/16 11/08/16 18:59 06:59 Intake Total 1138.708 ml 385.000 ml Output Total 1500 ml 550 ml Balance -361.292 ml -165.000 ml Intake Oral 750 ml IV Total 388.708 ml 385.000 ml Output Urine Total 1500 ml 550 ml Objective General Appearance: WD/WN HEENT: normocephalic Respiratory/Chest: chest wall non-tender, lungs clear Cardiovascular: normal peripheral pulses, normal rate Abdomen: normal bowel sounds EXT: no c/c/e Microbiology Date/Time Source Procedure Growth Status 11/06/16 00:46 Blood Blood Culture - Preliminary NO GROWTH AFTER 48 HOURS Resulted 11/06/16 00:31 Blood Blood Culture - Preliminary NO GROWTH AFTER 48 HOURS Resulted 11/06/16 00:57 Urine,Clean Catch Urine Culture - Preliminary Gram Negative Bacillus 1 Gram Negative Bacillus 2 Resulted Laboratory Tests 11/08/16 06:25: White Blood Count 10.1, Red Blood Count 4.97, Hemoglobin 10.8L, Hematocrit 35.4L , Mean Corpuscular Volume 71L, Mean Corpuscular Hemoglobin 21.8L, Mean Corpuscular Hemoglobin Concent 30.6L, Red Cell Distribution Width 17.1H, Platelet Count 293, Mean Platelet Volume 6.2L, Neutrophils (%) (Auto) 75.7H, Lymphocytes (%) (Auto) 16.9L, Monocytes (%) (Auto) 4.0, Eosinophils (%) (Auto) 2.8, Basophils (%) (Auto) 0.7, Prothrombin Time 10.5, Prothromb Time International Ratio 1.0, Activated Partial Thromboplast Time 29, Sodium Level 138, Potassium Level 4.3, Chloride Level 97L, Carbon Dioxide Level 30, Anion Gap 11, Blood Urea Nitrogen 7, Creatinine 0.3L, Estimat Glomerular Filtration Rate > 60, Glucose Level 112H, Calcium Level 9.1, Phosphorus Level 4.3, Magnesium Level 1.8, Total Bilirubin < 0.2, Aspartate Amino Transf (AST/SGOT) 10 , Alanine Aminotransferase (ALT/SGPT) 5, Alkaline Phosphatase 82, Total Protein 7.0, Albumin 3.1L, Globulin 3.9, Albumin/Globulin Ratio 0.7L Current Medications Medications (Trade) Dose Ordered Sig/Sandeep Route PRN Reason Start Time Stop Time Status Last Admin Dose Admin Acetaminophen (Tylenol) 650 mg Q4H PRN ORAL T>100.5 11/07/16 19:15 12/07/16 19:14 Al Hydroxide/Mg Hydroxide (Mylanta II) 30 ml Q6H PRN ORAL dyspepsia 11/07/16 19:15 12/07/16 19:14 Albuterol/ Ipratropium (DuoNeb 0.5-3(2.5)mg/3ml) 3 ml Q4H PRN HHN Shortness of Breath 11/07/16 19:15 11/12/16 19:14 Aztreonam 1 gm/ Sodium Chloride 55 ml @ 110 mls/hr EVERY 8 HOURS IVPB 11/07/16 22:00 11/14/16 21:59 11/08/16 13:28 Heparin Sodium (Porcine) (Heparin 5000 units/ml) 5,000 units EVERY 12 HOURS SUBQ 11/07/16 21:00 12/07/16 20:59 11/08/16 08:46 Levofloxacin 150 ml @ 100 mls/hr Q24H IVPB 11/08/16 14:00 11/15/16 13:59 11/08/16 14:02 Nitroglycerin (Ntg) 0.4 mg Q5M PRN SL Prn Chest Pain 11/07/16 18:00 12/07/16 17:59 Polyethylene Glycol (Miralax) 17 gm DAILYPRN PRN ORAL Constipation 11/08/16 07:15 12/08/16 07:14 Promethazine HCl/ Codeine (Phenergan with Codeine) 5 ml Q4H PRN ORAL For Cough 11/07/16 19:15 12/07/16 19:14 Temazepam (Restoril) 15 mg HSPRN PRN ORAL Insomnia 11/07/16 21:00 11/14/16 20:59 Vancomycin HCl (Vanco rx to dose) 1 ea DAILY PRN MISC . 11/08/16 09:00 12/08/16 08:59 Vancomycin HCl/ Dextrose (Vancomycin/D5W) 275 ml @ 183.708 mls/hr Q12HR@0300,1500 IVPB 11/08/16 03:00 11/13/16 02:59 11/08/16 16:03 JARET HERNÁNDEZ Nov 08, 2016 18:06
[2016-11-09] MEDS: Vancomycin 1 GM in D5W 275 ML IVPB SCH (02:56)
[2016-11-09 03:49] VITALS: BP 112/71
[2016-11-09] MEDS: Aztreonam Inj 1 GM in NS 55 ML IVPB SCH ×3 (04:51→21:42)
[2016-11-09 07:20] LABS: BASOPHILS % (AUTO) 0.6 % (0.0-2.0); EOSINOPHILS % (AUTO) 3.4 % (0.0-3.0); MEAN CORPUSCULAR HEMOGLOBIN 21.8 PG (27.0-31.0); MEAN CORPUSCULAR HGB CONC 29.8 G/DL (32.0-36.0); MEAN CORPUSCULAR VOLUME 73 FL (80-99); MEAN PLATELET VOLUME 5.9 FL (6.5-10.1); MONOCYTES % (AUTO) 5.5 % (1.0-10.0); NEUTROPHILS % (AUTO) 68.6 % (45.0-75.0); PLATELET COUNT 358 K/UL (150-450); RED BLOOD COUNT 5.44 M/UL (4.20-5.40); RED CELL DISTRIBUTION WIDTH 17.8 % (11.6-14.8); WHITE BLOOD COUNT 8.4 K/UL (4.8-10.8)
[2016-11-09 07:46] LABS: ALANINE AMINOTRANSFERASE 7 U/L (3-33); ALBUMIN/GLOBULIN RATIO 0.8 (1.0-2.7); ANION GAP 10 (5-15); ASPARTATE AMINO TRANSFERASE 9 U/L (5-40); CALCIUM 9.2 mg/dL (8.6-10.2); CARBON DIOXIDE 32 mEQ/L (20-30); CHLORIDE 96 mEQ/L (98-107); CREATININE 0.3 mg/dL (0.5-0.9); GLOMERULAR FILTRATION RATE > 60 mL/min (>60); HEMOLYSIS 4; MAGNESIUM 1.9 mg/dL (1.7-2.5); PHOSPHORUS 4.6 mg/dL (2.5-4.8); POTASSIUM 3.8 mEQ/L (3.4-4.9); SODIUM 138 mEQ/L (135-145); TOTAL PROTEIN 7.2 g/dL (6.6-8.7)
[2016-11-09 08:14] VITALS: BP 115/60
[2016-11-09 09:24] LABS: ERYTHROCYTE SEDIMENTATION RATE 30 MM/HR (0-20)
[2016-11-09] MEDS: Heparin 5000 units/ml inj SUBQ SCH ×2 (09:56→21:50)
--- NOTE | 2016-11-09 10:25 | Infectious Diseases Prog Note ---
Assessment/Plan Assessment/Plan A: The patient is a 46-year-old female with leukocytosis , SP Sepsis Pneumonia cxray : Stable or minimally improved bilateral parenchymal disease, over one day UTI : P mirabilis, E coli Spina bifida History of hydrocephalus status post SOLDERER TORCH shunt History of suprapubic catheter placement PLAN: cont on the aztreonam and Levaquin d# 3 / 7 , DC vancomycin d# 3 Monitor CBC. Monitor BMP. Monitor cultures( blood and sputum) Subjective Constitutional: Denies: anorexia, chills, drenching sweats, fatigue, fever, no symptoms, other Allergies: Coded Allergies: PENICILLIN G (Verified Allergy, Unknown, 10/11/16) Objective Vital Signs Last 24 Hour Vital Signs Date Time Temp Pulse Resp B/P Pulse Ox O2 Delivery O2 Flow Rate FiO2 11/09/16 08:14 98.4 74 20 115/60 100 Nasal Cannula 2.0 11/09/16 07:26 81 18 Nasal Cannula 2.0 28 11/09/16 07:26 Nasal Cannula 2.0 28 11/09/16 07:26 98 Nasal Cannula 2.0 28 11/09/16 03:49 97.9 82 18 112/71 98 Nasal Cannula 2.0 11/08/16 23:36 97.9 99 18 105/61 97 Room Air 11/08/16 20:00 98.2 85 18 115/83 94 Nasal Cannula 2.0 11/08/16 19:30 93 Nasal Cannula 2.0 28 11/08/16 19:30 86 18 Nasal Cannula 2.0 28 11/08/16 19:30 Nasal Cannula 2.0 28 11/08/16 16:00 97.4 81 18 127/77 98 Nasal Cannula 2.0 11/08/16 12:15 97.2 81 18 127/80 92 Nasal Cannula 2.0 Height (Feet): 5 Height (Inches): 2.00 Weight (Pounds): 170 HEENT: atraumatic Respiratory/Chest: normal breath sounds Cardiovascular: regular rhythm Abdomen: no organomegaly Laboratory Tests Test 11/09/16 06:35 White Blood Count 8.4 K/UL (4.8-10.8) Red Blood Count 5.44 M/UL (4.20-5.40) H Hemoglobin 11.9 G/DL (12.0-16.0) L Hematocrit 39.8 % (37.0-47.0) Mean Corpuscular Volume 73 FL (80-99) L Mean Corpuscular Hemoglobin 21.8 PG (27.0-31.0) L Mean Corpuscular Hemoglobin Concent 29.8 G/DL (32.0-36.0) L Red Cell Distribution Width 17.8 % (11.6-14.8) H Platelet Count 358 K/UL (150-450) Mean Platelet Volume 5.9 FL (6.5-10.1) L Neutrophils (%) (Auto) 68.6 % (45.0-75.0) Lymphocytes (%) (Auto) 22.0 % (20.0-45.0) Monocytes (%) (Auto) 5.5 % (1.0-10.0) Eosinophils (%) (Auto) 3.4 % (0.0-3.0) H Basophils (%) (Auto) 0.6 % (0.0-2.0) Erythrocyte Sedimentation Rate 30 MM/HR (0-20) H Sodium Level 138 mEQ/L (135-145) Potassium Level 3.8 mEQ/L (3.4-4.9) Chloride Level 96 mEQ/L (98-107) L Carbon Dioxide Level 32 mEQ/L (20-30) H Anion Gap 10 (5-15) Blood Urea Nitrogen 7 mg/dL (7-23) Creatinine 0.3 mg/dL (0.5-0.9) L Estimat Glomerular Filtration Rate > 60 mL/min (>60) Glucose Level 97 mg/dL (74-106) Calcium Level 9.2 mg/dL (8.6-10.2) Phosphorus Level 4.6 mg/dL (2.5-4.8) Magnesium Level 1.9 mg/dL (1.7-2.5) Total Bilirubin < 0.2 mg/dL (0.0-1.2) Aspartate Amino Transf (AST/SGOT) 9 U/L (5-40) Alanine Aminotransferase (ALT/SGPT) 7 U/L (3-33) Alkaline Phosphatase 83 U/L (35-104) Total Protein 7.2 g/dL (6.6-8.7) Albumin 3.2 g/dL (3.5-5.2) L Globulin 4.0 g/dL Albumin/Globulin Ratio 0.8 (1.0-2.7) L Current Medications Medications (Trade) Dose Ordered Sig/Sandeep Route PRN Reason Start Time Stop Time Status Last Admin Dose Admin Acetaminophen (Tylenol) 650 mg Q4H PRN ORAL T>100.5 11/07/16 19:15 12/07/16 19:14 Al Hydroxide/Mg Hydroxide (Mylanta II) 30 ml Q6H PRN ORAL dyspepsia 11/07/16 19:15 12/07/16 19:14 Albuterol/ Ipratropium (DuoNeb 0.5-3(2.5)mg/3ml) 3 ml Q4H PRN HHN Shortness of Breath 11/07/16 19:15 11/12/16 19:14 Aztreonam 1 gm/ Sodium Chloride 55 ml @ 110 mls/hr EVERY 8 HOURS IVPB 11/07/16 22:00 11/14/16 21:59 11/09/16 04:51 Heparin Sodium (Porcine) (Heparin 5000 units/ml) 5,000 units EVERY 12 HOURS SUBQ 11/07/16 21:00 12/07/16 20:59 11/09/16 09:56 Levofloxacin 150 ml @ 100 mls/hr Q24H IVPB 11/08/16 14:00 11/15/16 13:59 11/08/16 14:02 Nitroglycerin (Ntg) 0.4 mg Q5M PRN SL Prn Chest Pain 11/07/16 18:00 12/07/16 17:59 Polyethylene Glycol (Miralax) 17 gm DAILYPRN PRN ORAL Constipation 11/08/16 07:15 12/08/16 07:14 Promethazine HCl/ Codeine (Phenergan with Codeine) 5 ml Q4H PRN ORAL For Cough 11/07/16 19:15 12/07/16 19:14 Temazepam (Restoril) 15 mg HSPRN PRN ORAL Insomnia 11/07/16 21:00 11/14/16 20:59 11/08/16 20:46 Vancomycin HCl (Vanco rx to dose) 1 ea DAILY PRN MISC . 11/08/16 09:00 12/08/16 08:59 Vancomycin HCl/ Dextrose (Vancomycin/D5W) 275 ml @ 183.708 mls/hr Q12HR@0300,1500 IVPB 11/08/16 03:00 11/13/16 02:59 11/09/16 02:56 ACE LIND M.D. Nov 09, 2016 10:25
[2016-11-09 12:17] VITALS: BP 123/77
[2016-11-09 15:58] VITALS: BP 123/92
--- NOTE | 2016-11-09 19:12 | Pulmonology Progress Note ---
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 with multiple resistance pattern improving cardio note appreciated IV antibiotics check cultures med/surg dc home when OK with ID to switch to po abx Subjective ROS Limited/Unobtainable: No Interval Events: improving Allergies: Coded Allergies: PENICILLIN G (Verified Allergy, Unknown, 10/11/16) Objective Last 24 Hour Vital Signs Date Time Temp Pulse Resp B/P Pulse Ox O2 Delivery O2 Flow Rate FiO2 11/09/16 15:58 97.8 84 20 123/92 97 Nasal Cannula 2.0 11/09/16 12:17 98.0 83 20 123/77 98 Nasal Cannula 2.0 11/09/16 08:14 98.4 74 20 115/60 100 Nasal Cannula 2.0 11/09/16 07:26 81 18 Nasal Cannula 2.0 28 11/09/16 07:26 Nasal Cannula 2.0 28 11/09/16 07:26 98 Nasal Cannula 2.0 28 11/09/16 03:49 97.9 82 18 112/71 98 Nasal Cannula 2.0 11/08/16 23:36 97.9 99 18 105/61 97 Room Air 11/08/16 20:00 98.2 85 18 115/83 94 Nasal Cannula 2.0 11/08/16 19:30 93 Nasal Cannula 2.0 28 11/08/16 19:30 86 18 Nasal Cannula 2.0 28 11/08/16 19:30 Nasal Cannula 2.0 28 Intake and Output 11/08/16 11/09/16 19:00 07:00 Intake Total 360 ml 385 ml Output Total 2800 ml Balance -2440 ml 385 ml Intake Oral 360 ml IV Total 385 ml Output Urine Total 2800 ml # Voids 1 Objective General Appearance: WD/WN HEENT: normocephalic Respiratory/Chest: chest wall non-tender, lungs clear Cardiovascular: normal peripheral pulses, normal rate Abdomen: normal bowel sounds EXT: no c/c/e Laboratory Tests 11/09/16 06:35: White Blood Count 8.4, Red Blood Count 5.44H, Hemoglobin 11.9L, Hematocrit 39.8 , Mean Corpuscular Volume 73L, Mean Corpuscular Hemoglobin 21.8L, Mean Corpuscular Hemoglobin Concent 29.8L, Red Cell Distribution Width 17.8H, Platelet Count 358, Mean Platelet Volume 5.9L, Neutrophils (%) (Auto) 68.6, Lymphocytes (%) (Auto) 22.0, Monocytes (%) (Auto) 5.5, Eosinophils (%) (Auto) 3.4H, Basophils (%) (Auto) 0.6, Erythrocyte Sedimentation Rate 30H, Sodium Level 138, Potassium Level 3.8, Chloride Level 96L, Carbon Dioxide Level 32H, Anion Gap 10, Blood Urea Nitrogen 7, Creatinine 0.3L, Estimat Glomerular Filtration Rate > 60, Glucose Level 97, Calcium Level 9.2, Phosphorus Level 4.6 , Magnesium Level 1.9, Total Bilirubin < 0.2, Aspartate Amino Transf (AST/SGOT) 9, Alanine Aminotransferase (ALT/SGPT) 7, Alkaline Phosphatase 83, Total Protein 7.2, Albumin 3.2L, Globulin 4.0, Albumin/Globulin Ratio 0.8L Current Medications Medications (Trade) Dose Ordered Sig/Sandeep Route PRN Reason Start Time Stop Time Status Last Admin Dose Admin Acetaminophen (Tylenol) 650 mg Q4H PRN ORAL T>100.5 11/07/16 19:15 12/07/16 19:14 Al Hydroxide/Mg Hydroxide (Mylanta II) 30 ml Q6H PRN ORAL dyspepsia 11/07/16 19:15 12/07/16 19:14 Albuterol/ Ipratropium (DuoNeb 0.5-3(2.5)mg/3ml) 3 ml Q4H PRN HHN Shortness of Breath 11/07/16 19:15 11/12/16 19:14 Aztreonam 1 gm/ Sodium Chloride 55 ml @ 110 mls/hr EVERY 8 HOURS IVPB 11/07/16 22:00 11/14/16 21:59 11/09/16 14:48 Heparin Sodium (Porcine) (Heparin 5000 units/ml) 5,000 units EVERY 12 HOURS SUBQ 11/07/16 21:00 12/07/16 20:59 11/09/16 09:56 Levofloxacin (Levaquin 750mg/ D5W) 150 ml @ 100 mls/hr Q24H IVPB 11/08/16 14:00 11/15/16 13:59 11/09/16 15:30 Nitroglycerin (Ntg) 0.4 mg Q5M PRN SL Prn Chest Pain 11/07/16 18:00 12/07/16 17:59 Polyethylene Glycol (Miralax) 17 gm DAILYPRN PRN ORAL Constipation 11/08/16 07:15 12/08/16 07:14 Promethazine HCl/ Codeine (Phenergan with Codeine) 5 ml Q4H PRN ORAL For Cough 11/07/16 19:15 12/07/16 19:14 Temazepam (Restoril) 15 mg HSPRN PRN ORAL Insomnia 11/07/16 21:00 11/14/16 20:59 11/08/16 20:46 JARET HERNÁNDEZ Nov 09, 2016 19:12
[2016-11-09 20:00] VITALS: BP 117/68
[2016-11-10] VITALS: BP 116/60
[2016-11-10 04:00] VITALS: BP 103/71
[2016-11-10] MEDS: Aztreonam Inj 1 GM in NS 55 ML IVPB SCH ×2 (05:38→14:18)
[2016-11-10 08:19] VITALS: BP 109/73
[2016-11-10] MEDS: Heparin 5000 units/ml inj SUBQ SCH (08:29)
--- NOTE | 2016-11-10 09:48 | Cardiology Report ---
APPROVED REPORT EKG Measurement Heart [id number] Normal sinus rhythm Low voltage QRS Borderline ECG
[2016-11-10 11:49] VITALS: BP 112/70
[2016-11-10 16:04] VITALS: BP 106/65
--- NOTE | 2016-11-10 17:35 | Infectious Diseases Prog Note ---
Assessment/Plan Assessment/Plan A: The patient is a 46-year-old female with leukocytosis , SP Sepsis Pneumonia cxray : Stable or minimally improved bilateral parenchymal disease, over one day UTI : P mirabilis, E coli Spina bifida History of hydrocephalus status post DBA shunt History of suprapubic catheter placement PLAN: cont on the aztreonam and Levaquin d# 4 / 7 , upon DC will cont with oral Levaquin only to complete the 1 wk course ( 11/09 SP vancomycin d# 3) Monitor CBC. Monitor BMP. Monitor cultures( blood and sputum) Subjective Constitutional: Denies: anorexia, chills, drenching sweats, fatigue, fever, no symptoms, other Allergies: Coded Allergies: PENICILLIN G (Verified Allergy, Unknown, 10/11/16) Objective Vital Signs Last 24 Hour Vital Signs Date Time Temp Pulse Resp B/P Pulse Ox O2 Delivery O2 Flow Rate FiO2 11/10/16 16:04 97.4 82 20 106/65 98 Room Air 11/10/16 11:49 98.0 94 20 112/70 97 Nasal Cannula 2.0 11/10/16 08:19 98.4 90 20 109/73 97 Nasal Cannula 2.0 11/10/16 07:05 96 Nasal Cannula 2.0 28 11/10/16 07:05 Nasal Cannula 2.0 28 11/10/16 07:05 80 18 Nasal Cannula 2.0 28 11/10/16 04:00 97.3 87 20 103/71 98 Nasal Cannula 2.0 11/10/16 00:00 97.2 94 22 116/60 97 Nasal Cannula 2.0 11/09/16 20:00 98.2 83 20 117/68 95 Nasal Cannula 2.0 11/09/16 19:37 98 Nasal Cannula 2.0 28 11/09/16 19:37 89 18 Nasal Cannula 2.0 28 11/09/16 19:37 Nasal Cannula 2.0 28 Height (Feet): 5 Height (Inches): 2.00 Weight (Pounds): 170 HEENT: anicteric Respiratory/Chest: no respiratory distress Cardiovascular: regularly irregular Abdomen: no organomegaly Extremities: no cyanosis Current Medications Medications (Trade) Dose Ordered Sig/Sandeep Route PRN Reason Start Time Stop Time Status Last Admin Dose Admin Acetaminophen (Tylenol) 650 mg Q4H PRN ORAL T>100.5 4/18/17 19:15 12/07/16 19:14 Al Hydroxide/Mg Hydroxide (Mylanta II) 30 ml Q6H PRN ORAL dyspepsia 11/07/16 19:15 12/07/16 19:14 Albuterol/ Ipratropium (DuoNeb 0.5-3(2.5)mg/3ml) 3 ml Q4H PRN HHN Shortness of Breath 11/07/16 19:15 11/12/16 19:14 Aztreonam 1 gm/ Sodium Chloride 55 ml @ 110 mls/hr EVERY 8 HOURS IVPB 11/07/16 22:00 11/14/16 21:59 11/10/16 14:18 Heparin Sodium (Porcine) (Heparin 5000 units/ml) 5,000 units EVERY 12 HOURS SUBQ 11/07/16 21:00 12/07/16 20:59 11/10/16 08:29 Levofloxacin (Levaquin 750mg/ D5W) 150 ml @ 100 mls/hr Q24H IVPB 11/08/16 14:00 11/15/16 13:59 11/10/16 14:00 Nitroglycerin (Ntg) 0.4 mg Q5M PRN SL Prn Chest Pain 11/07/16 18:00 12/07/16 17:59 Polyethylene Glycol (Miralax) 17 gm DAILYPRN PRN ORAL Constipation 11/08/16 07:15 12/08/16 07:14 Promethazine HCl/ Codeine (Phenergan with Codeine) 5 ml Q4H PRN ORAL For Cough 11/07/16 19:15 12/07/16 19:14 Temazepam (Restoril) 15 mg HSPRN PRN ORAL Insomnia 11/07/16 21:00 11/14/16 20:59 11/09/16 21:42 ACE LIND M.D. Nov 10, 2016 17:35
[2016-11-10] MEDS ORDERED: Tubing IV Secondary IV ONE (17:44)
--- NOTE | 2016-11-10 21:18 | Cardiology Report ---
APPROVED REPORT EKG Measurement Heart [id number] Normal sinus rhythm Normal ECG
--- NOTE | 2016-11-10 22:19 | Pulmonology Progress Note ---
Assessment/Plan Problems: (1) Bilateral pneumonia (2) Sepsis (3) Pulmonary edema (4) Spina bifida (5) S/P MAJOR GENERAL shunt Assessment/Plan afebrile wbc normal now cultures available now. with multiple resistance pattern improving cardio note appreciated IV antibiotics check cultures med/surg dc home when OK with ID to switch to po abx Subjective Allergies: Coded Allergies: PENICILLIN G (Verified Allergy, Unknown, 10/11/16) Objective Last 24 Hour Vital Signs Date Time Temp Pulse Resp B/P Pulse Ox O2 Delivery O2 Flow Rate FiO2 11/10/16 16:04 97.4 82 20 106/65 98 Room Air 11/10/16 11:49 98.0 94 20 112/70 97 Nasal Cannula 2.0 11/10/16 08:19 98.4 90 20 109/73 97 Nasal Cannula 2.0 11/10/16 07:05 96 Nasal Cannula 2.0 28 11/10/16 07:05 Nasal Cannula 2.0 28 11/10/16 07:05 80 18 Nasal Cannula 2.0 28 11/10/16 04:00 97.3 87 20 103/71 98 Nasal Cannula 2.0 11/10/16 00:00 97.2 94 22 116/60 97 Nasal Cannula 2.0 Intake and Output 11/09/16 11/10/16 19:00 07:00 Intake Total 600 ml 255 ml Output Total 600 ml 575 ml Balance 0 ml -320 ml Intake Oral 600 ml 200 ml IV Total 55 ml Output Urine Total 600 ml 575 ml Objective General Appearance: WD/WN HEENT: normocephalic Respiratory/Chest: chest wall non-tender, lungs clear Cardiovascular: normal peripheral pulses, normal rate Abdomen: normal bowel sounds EXT: no c/c/e JARET HERNÁNDEZ Nov 10, 2016 22:19
[2016-11-13] MEDS ORDERED: LEVAQUIN750 MG ORAL (06:54)
--- NOTE | 2016-11-13 07:02 | Discharge Summary ---
Discharge Summary Hospital Course Date of Admission Nov 06, 2016 at 01:30 Date of Discharge Nov 10, 2016 at 17:45 Admitting Diagnosis pneumonia HPI Eusebia Mueller is a 46 year old female who was admitted on Nov 06, 2016 at 01: 30 for Pneumonia Hospital Course dc summary #[id number] Discharge Medications New Medications: Levofloxacin* (Levaquin*) 750 Mg Tablet 750 MG ORAL DAILY, #3 TAB Continued Medications: Acetaminophen (Tylenol) 325 Mg Tablet 650 MG ORAL Q6H PRN for Prn Pain/Headache/Temp > 101, #30 TAB 0 Refills Apixaban (Eliquis) 5 Mg Tablet 5 MG PO BID, TAB Ascorbic Acid* (Ascorbic Acid*) 500 Mg Tablet 500 MG ORAL TWICE A DAY, TAB Docusate Sodium* (Docusate Sodium*) 100 Mg Capsule 100 MG ORAL TWICE A DAY, CAP Multivitamins* (Multivitamins*) 1 Each Tablet 1 TAB ORAL DAILY, TAB 0 Refills Sennosides (Senna) 8.6 Mg Tablet 8.6 MG PO, TAB Discharge Condition Upon Discharge: stable Discharge Disposition Patient was discharged home with home health services Discharge Diagnoses: Discharge Instructions Discharge Instructions Special Instructions I have been assigned to complete a D/C Summary on this account. I was not involved in the patient management Trinh Muñiz NP (Vanchtein) Nov 13, 2016 07:02
--- NOTE | 2016-11-13 21:08 | Discharge Summary 2 SIG ---
DATE OF ADMISSION: 11/06/2016 DATE OF DISCHARGE: 11/10/2016 REASON FOR ADMISSION: The patient is a 46-year-old female with past medical history of spina bifida, hydrocephalus, status post GLOBAL CREATIVE CHAIRMAN shunt, and suprapubic catheter, who presented to the emergency department due to hypoxemia. The patient was placed on 100% nonrebreathing mask. Pulse oximetry was up from 88 to 98 per minute. Workup in the ED revealed leukocytosis of 24.6, and elevated lactic acid 3.5. Chest x-ray revealed bilateral diffuse interstitial and alveolar infiltrates versus edema. Urinalysis was consistent with UTI. EKG shows sinus tachycardia. The patient was admitted for further management. ADMITTING DIAGNOSES: 1. Sepsis. 2. Bilateral pneumonia. 3. Possible pulmonary edema. 4. Urinary tract infection. 5. Spina bifida. 6. History of hydrocephalus, status post ventriculoperitoneal shunt. 7. Suprapubic catheter. HOSPITAL STAY: The patient was admitted to monitored floor. The patient was pancultured and started on empiric antibiotics. ID doctor and hybrid derivatives trader were called on the case. Urine culture revealed E. coli, Proteus mirabilis. Blood cultures were negative. Follow up chest x-ray revealed minimally improved bilateral parenchymal disease over one day. The patient was on the IV antibiotic as per ID doctor regimen. Upon discharge, she was switched to oral antibiotics to complete 7 days of course. Echocardiogram was done in lieu of possible pulmonary edema revealed preserved ejection fraction of 60%, no evidence of ventricular hypertrophy, right ventricular systolic pressure of 47, consistent with moderate pulmonary hypertension. Progressive Care Unit Registered Nurse doubt pulmonary edema. Per hybrid derivatives trader, bilateral infiltrates are likely infectious. Troponin was repeated and was negative again. EKG was repeated and shows normal sinus rhythm. No ST changes. No T-wave inversion. Leukocytosis resolved. As the patient's clinical condition improved, the patient subsequently was able to be weaned from nonrebreathing mask to oxygen via nasal cannula and into the room air. The patient was stable for discharge home with home health on oral antibiotics to complete 7 days of treatment. DISCHARGE DIAGNOSES: 1. Sepsis. 2. Bilateral pneumonia. 3. Urinary tract infection/Escherichia coli, Proteus mirabilis. 4. History of spina bifida. 5. History of hydrocephalus, status post ventriculoperitoneal shunt. 6. Suprapubic catheter. DISCHARGE MEDICATIONS: See medication reconciliation list. DISCHARGE INSTRUCTIONS: The patient was discharged home with home health to follow. Continue oral Levaquin for additional 3 days. Chyna Pryor M.D. I have been assigned to dictate discharge summary on this account and I was not involved in the patient's management. Trinh Muñiz N.P. (vanchtein) DR: NEETA JOB#: [id number] CC:
== END 2016-11-10 17:45 | disposition home or self-care (01) | DRG 871 ==
LOC: EDBD 00:41 → EMR 01:26 → 2E 01:30 → EDBEDREQ 01:47 → 2E 05:50 → 4W 11-07 17:57
DX: A41.9 Sepsis, unspecified organism (principal); J18.9 Pneumonia, unspecified organism; L89.154 Pressure ulcer of sacral region, stage 4; Q05.4 Unspecified spina bifida with hydrocephalus; N39.0 Urinary tract infection, site not specified; M86.9 Osteomyelitis, unspecified; Z98.2 Presence of cerebrospinal fluid drainage device; Z88.0 Allergy status to penicillin; B96.20 Unspecified Escherichia coli [E. coli] as the cause of diseases classified elsewhere; B96.4 Proteus (mirabilis) (morganii) as the cause of diseases classified elsewhere; Z43.5 Encounter for attention to cystostomy; Q90.9 Down syndrome, unspecified; F79 Unspecified intellectual disabilities; Z86.711 Personal history of pulmonary embolism; Z79.01 Long term (current) use of anticoagulants
CPT/HCPCS: 36415; 71010; 80053; 80069; 80202; 81003; 82550; 83605; 83735; 83880; 84100; 84484; 85007; 85025; 85610; 85651; 85730; 87040; 87086; 87181; 93005; 93306; 94640; 94664; 94760; J7620

== ENCOUNTER 2016-12-18 14:09 | Emergency (ER) | payer MEDICARE, MEDICAID ==
[~2016-12-18] VITALS: Ht 157.5 cm; Wt 81.6 kg
[~2016-12-18 14:09] MED LIST changes: +ASCORBIC ACID500 MG ORAL; +DOCUSATE SODIU100 MG ORAL; +ELIQUIS5 MG PO; +LACTULOSE20 GM/301 ORAL; +LEVAQUIN750 MG ORAL; +MULTIVITAMINS1 EAC2 ORAL; +SENNA8.6 M2 PO; +TYLENOL325 MG ORAL
[2016-12-18 14:50] VITALS: BP 103/70
[2016-12-18 15:30] VITALS: BP 103/70
--- NOTE | 2016-12-18 15:56 | Emergency Room Report ---
History of Present Illness General Chief Complaint: Female Urogenital Problems Source: Family Member Present Illness HPI 46-year-old female presents to ED for suprapubic catheter replacement. Son is at bedside states that patient has history of spina bifida and is non- ambulatory at baseline. They attempted to flush the Mena catheter this morning and was unsuccessful. Noted urine flowing from around the suprapubic catheter site. States that the catheter was working last night. Upon arrival patient showing no signs of distress. No reported fevers or chills. No reported nausea or vomiting. No other aggravating relieving factors. No other associated symptoms Allergies: Coded Allergies: PENICILLIN G (Verified Allergy, Unknown, 10/11/16) Patient History Past Medical History: other - spinabifida Past Surgical History: none Pertinent Family History: none Social History: Denies: alcohol use, drug use, smoking Now: No Immunizations: UTD Reviewed Nursing Documentation: PMH: Agreed, PSxH: Agreed Nursing Documentation-PMH Past Medical History: No History, Except For Hx Hypertension: Yes - shunt in the brain Hx Cancer: No Hx Gastrointestinal Problems: No Hx Neurological Problems: Yes - Spina Bifida (Gustavo in place) Review of Systems All Other Systems: negative except mentioned in HPI Physical Exam Vital Signs Date Time Temp Pulse Resp B/P Pulse Ox O2 Delivery O2 Flow Rate FiO2 12/18/16 14:36 100.4 91 18 103/70 93 Room Air Sp02 EP Interpretation: reviewed, normal General Appearance: no apparent distress, alert, GCS 15, non-toxic Head: normocephalic Eyes: bilateral eye PERRL, bilateral eye normal inspection ENT: normal ENT inspection Neck: normal inspection Respiratory: chest non-tender, lungs clear, normal breath sounds, speaking full sentences Cardiovascular #1: regular rate, rhythm, no edema Gastrointestinal: normal bowel sounds, soft, non-distended, no guarding, no rebound, other - suprapubic catheter site C/D/I patent Rectal: deferred Genitourinary: no CVA tenderness Musculoskeletal: normal inspection Neurologic: alert, oriented x3, responsive, sensory intact, speech normal Psychiatric: normal inspection Skin: normal inspection Lymphatic: normal inspection Medical Decision Making Diagnostic Impression: Primary Impression: Blocked suprapubic catheter Qualified Codes: T83.090A - Other mechanical complication of cystostomy catheter, initial encounter ER Course Hospital Course 46-year-old F presents to ED for suprapubic catheter change Differential diagnoses include: obstruction, UTI, BPH Clinical course Patient placed on stretcher. After initial history and physical I removed the old superpubic catheter. Using sterile technique and was able to replace with a new suprapubic catheter. Urine flow noted. Diagnosis - blocked supraupbic catheter Stable and discharged home with mena + leg bag. Instructed to followup with PMD/urologist. Return to ED if symptoms recur or worsen Last Vital Signs Date Time Temp Pulse Resp B/P Pulse Ox O2 Delivery O2 Flow Rate FiO2 12/18/16 14:36 100.4 91 18 103/70 93 Room Air Status: improved Disposition: HOME, SELF-CARE Condition: Stable Patient Instructions: Suprapubic Catheter Home Guide SHANKAR BLACKWELL M.D. December 18, 2016 15:56
== END 2016-12-18 15:40 | disposition home or self-care (01) ==
LOC: EMR 15:40
DX: T83.090A Other mechanical complication of cystostomy catheter, initial encounter (principal); Y84.6 Urinary catheterization as the cause of abnormal reaction of the patient, or of later complication, without mention of misadventure at the time of the procedure; Y92.89 Other specified places as the place of occurrence of the external cause; Q05.9 Spina bifida, unspecified; G82.20 Paraplegia, unspecified; I10 Essential (primary) hypertension; Z88.0 Allergy status to penicillin; Z98.2 Presence of cerebrospinal fluid drainage device
CPT/HCPCS: 51702

== ENCOUNTER 2016-12-24 18:01 | Emergency (ER) | payer MEDICARE, MEDICAID ==
[~2016-12-24] VITALS: Ht 154.9 cm; Wt 59.0 kg
[2016-12-24 19:25] VITALS: BP 121/67
[2016-12-24 19:26] VITALS: BP 121/67
--- NOTE | 2016-12-27 07:08 | Emergency Room Report ---
History of Present Illness General Chief Complaint: Female Urogenital Problems Source: Family Member Present Illness HPI [id number] brought in for concern for dysfunctional suprapubic catheter. Has had indwelling for a while. Had replaced last week for dysfunction as well. Not followed up with Urologist. Per caregiver, urine leaking "From the vagina" but not coming out from catheter itself. Denies c/o abd pain, nausea/vomiting, diarrhea, fever/chills. Allergies: Coded Allergies: PENICILLIN G (Verified Allergy, Unknown, 10/11/16) Patient History Past Medical History: see triage record, old chart reviewed Past Surgical History: none Pertinent Family History: none Social History: Denies: alcohol use, drug use, smoking Last Menstrual Period: unk Now: No Immunizations: UTD Reviewed Nursing Documentation: PMH: Agreed, PSxH: Agreed Nursing Documentation-PMH Past Medical History: No History, Except For Hx Hypertension: Yes - shunt in the brain Hx Cancer: No Hx Gastrointestinal Problems: No Hx Neurological Problems: Yes - Spina Bifida (Gustavo in place) Review of Systems All Other Systems: negative except mentioned in HPI Physical Exam Vital Signs Date Time Temp Pulse Resp B/P Pulse Ox O2 Delivery O2 Flow Rate FiO2 12/24/16 18:16 98.1 88 23 121/63 90 Room Air Sp02 EP Interpretation: reviewed, normal General Appearance: normal inspection, well appearing, no apparent distress, alert, GCS 15, non-toxic Head: normocephalic, atraumatic Eyes: bilateral eye EOMI, bilateral eye PERRL ENT: normal ENT inspection, hearing grossly normal, normal voice Neck: normal inspection, full range of motion, supple, no bony tend Respiratory: normal inspection, lungs clear, normal breath sounds, no respiratory distress, no retraction, no wheezing Cardiovascular #1: regular rate, rhythm, no edema Gastrointestinal: normal inspection, normal bowel sounds, non tender, soft, no guarding, no hernia Genitourinary: no CVA tenderness, other - Suprapubic catheter in place. No surrounding erythema or sign of infection. Unable to flush or irrigate port. Bedside sono shows catheter balloon in place and full bladder. Neurologic: normal inspection, alert, responsive, nursery laborer III-XII nml as tested, speech normal Psychiatric: normal inspection, judgement/insight normal, mood/affect normal Skin: normal inspection, normal color, no rash Procedures Additional Procedure Procedure Narrative Suprapubic catheter replacement - Balloon deflated on existing catheter and removed - Sterile gloves warn and access site cleaned with chlorhe - Tip of new catheter lubricated - Using sterile procedure, new catheter inserted into site and balloon inflated. Confirmed on bedside sono - Immediate return/drainage of urine from new catheter observed - Bladder empty on serial abd sono - Patient tolerated procedure - No complications Medical Decision Making Diagnostic Impression: Primary Impression: Blocked suprapubic catheter Qualified Codes: T83.090A - Other mechanical complication of cystostomy catheter, initial encounter Additional Impression: Encounter for care or replacement of suprapubic tube ER Course Dysfunctional suprapubic catheter replaced (see procedure note) VSS. Afebrile. No systemic signs or symptoms warranting additional laboratory, imaging or admission Patient to followup with Urologist tomorrow Last Vital Signs Date Time Temp Pulse Resp B/P Pulse Ox O2 Delivery O2 Flow Rate FiO2 12/24/16 19:26 85 21 121/67 94 Room Air 12/24/16 19:25 98.1 Status: improved Disposition: HOME, SELF-CARE Condition: Improved Referrals: NON PHYSICIAN (PCP) Patient Instructions: Suprapubic Catheter Replacement, Care After ANGEL DAWSON M.D. Dec 27, 2016 07:08
== END 2016-12-24 19:26 | disposition home or self-care (01) ==
LOC: EMR 18:41
DX: T83.090A Other mechanical complication of cystostomy catheter, initial encounter (principal); Z88.0 Allergy status to penicillin; I10 Essential (primary) hypertension; Q05.9 Spina bifida, unspecified; X58.XXXA Exposure to other specified factors, initial encounter; Y93.9 Activity, unspecified; Y92.9 Unspecified place or not applicable
CPT/HCPCS: 51702

== ENCOUNTER 2017-01-17 12:52 | Emergency (ER) | payer MEDICARE, MEDICAID ==
[~2017-01-17] VITALS: Ht 154.9 cm; Wt 59.0 kg
[2017-01-17] MEDS ORDERED: Lidocaine 1% Plain 30 ml INJ ONE (13:15)
[2017-01-17] MEDS ORDERED: Bacitracin Oint UD TOPIC ONE (13:42)
[2017-01-17] MEDS ORDERED: BACTRIM-DS1 EA ORAL (13:42)
[2017-01-17 14:01] LABS: APPEARANCE,URINE SLIGHTLY CLOUDY; KETONES,URINE NEGATIVE (NEGATIVE); LEUKOCYTE ESTERASE ,URINE 3+ (NEGATIVE); NITRITE,URINE NEGATIVE (NEGATIVE); PH,URINE 7 (4.5-8.0); PROTEIN,URINE 2+ (NEGATIVE); UROBILINOGEN,URINE NORMAL MG/DL (0.0-1.0)
--- NOTE | 2017-01-17 14:06 | Emergency Room Report ---
History of Present Illness General Chief Complaint: General Complaint Source: Family Member, Medical Record Present Illness HPI [id number] here with marble installation helper with blocked suprapubic catheter. Has occurred frequently. I changed it on las visit here. Intervally has had it changed by outside provider. Urologist stated "it'll happen, keep going to ED." Denies abd pain, nausea/vomiting, fever/chills. Also c/o abscess to left upper chest - wasnt there yesterday per marble installation helper. No history of DM, frequent abscesses. Allergies: Coded Allergies: PENICILLIN G (Verified Allergy, Unknown, 10/11/16) Patient History Limited by: medical condition Past Medical History: see triage record, old chart reviewed Past Surgical History: other - Suprapubic catheter Pertinent Family History: none Social History: Denies: alcohol use, drug use, smoking Now: No Immunizations: UTD Reviewed Nursing Documentation: PMH: Agreed, PSxH: Agreed Nursing Documentation-PMH Past Medical History: No History, Except For Hx Hypertension: Yes - shunt in the brain Hx Cancer: No Hx Gastrointestinal Problems: No Hx Neurological Problems: Yes - Spina Bifida (Gustavo in place) Review of Systems All Other Systems: negative except mentioned in HPI Physical Exam Vital Signs Date Time Temp Pulse Resp B/P Pulse Ox O2 Delivery O2 Flow Rate FiO2 01/17/17 13:04 97.9 91 17 109/61 94 Room Air Sp02 EP Interpretation: reviewed, normal General Appearance: normal inspection, well appearing, no apparent distress, alert, GCS 15, non-toxic Head: normocephalic, atraumatic Eyes: bilateral eye EOMI, bilateral eye PERRL ENT: normal ENT inspection, hearing grossly normal, normal voice Neck: normal inspection, full range of motion, supple, no bony tend Respiratory: normal inspection, lungs clear, normal breath sounds, no respiratory distress, no retraction, no wheezing Cardiovascular #1: regular rate, rhythm, no edema Gastrointestinal: normal inspection, normal bowel sounds, non tender, soft, no guarding, no hernia Genitourinary: no CVA tenderness, other - Suprapubic cath visualized. Scant urine drainage. No site cellulitis. Non-tender suprapubic area and abdomen Musculoskeletal: normal inspection, back normal, normal range of motion, Juliette' s Sign negative Neurologic: normal inspection, alert, responsive, quality analyst/technical writer III-XII nml as tested, speech normal Psychiatric: normal inspection, judgement/insight normal, mood/affect normal Skin: normal inspection, normal color, no rash Lymphatic: other - Left upper chest: 1cm area of fluctuance with ?necrotic tip with foll Procedures Incision and Drainage Incision and Drainage : Consent: Verbal Blade Size: 15 I & D Procedure: betadine prep Wound's Depth, Shape: superficial Wound Explored: clean Anesthesia: Lidocaine w/ Epi Splint Applied?: No Sling Applied?: No Patient Tolerated: Well Complications: None Additional Procedure Procedure Narrative Suprapubic catheter replacement - Balloon deflated on existing catheter and removed - Sterile gloves warn and access site cleaned with chlorhex - Tip of new catheter lubricated, 20F, tri-valve. - Using sterile procedure, new catheter inserted into site and balloon inflated. Confirmed on bedside sono - Immediate return/drainage of urine from new catheter observed - Bladder empty on serial abd sono - Patient tolerated procedure - No complications Medical Decision Making Diagnostic Impression: Primary Impression: Cellulitis Qualified Codes: L03.90 - Cellulitis, unspecified Additional Impression: Blocked suprapubic catheter Qualified Codes: T83.090A - Other mechanical complication of cystostomy catheter, initial encounter ER Course 1) Blocked suprapubic catheter - replaced in ED (see procedure note). UA pending. On Abx for Abscess. Will call for Urine Cx that shows resistant if positive for UTI. Results not back from lab at time of DC and my end of shift. 2) Left upper chest wall abscess. Not a significant amount of pus obtained. Likely folliculitis/cellulitis. Rx Bactrim. PMD followup DC home Last Vital Signs Date Time Temp Pulse Resp B/P Pulse Ox O2 Delivery O2 Flow Rate FiO2 01/17/17 13:04 97.9 91 17 109/61 94 Room Air Status: improved Disposition: HOME, SELF-CARE Condition: Improved Scripts Trimethoprim/Sulfamethoxazole (Bactrim Ds Tablet) 1 Each Tablet 1 TAB ORAL TWICE A DAY for 7 Days, #14 TAB Prov: ANGEL DAWSON M.D. 01/17/17 Patient Instructions: Cellulitis, [id number], Suprapubic Catheter Replacement , Care After Additional Instructions: - Take ALL antibiotics to treat cellulitis of upper left chest - If the Urine Cx comes back in 1-2 days and shows resistant to Bactrim, we will call you with a new antibiotic - Follow up with Urologist regarding recurrent Suprapubic catheter blockage ANGEL DAWSON M.D. Jan 17, 2017 14:06
[2017-01-17 14:07] VITALS: BP 109/61
[2017-01-17 14:09] LABS: SQUAMOUS EPITHELIAL CELL,UR FEW /LPF (NONE/OCC); WBC,URINE 30-40 /HPF (0 - 2)
[2017-01-17 14:10] LABS: BACTERIA,URINE MODERATE /HPF
[2017-01-17 14:12] VITALS: BP 109/61
[2017-01-20] MEDS ORDERED: NITROFURANTOIN100 M2 ORAL (07:51)
== END 2017-01-17 14:00 | disposition home or self-care (01) ==
LOC: EMR 13:20
DX: T83.090A Other mechanical complication of cystostomy catheter, initial encounter (principal); L03.90 Cellulitis, unspecified; Z88.0 Allergy status to penicillin; I10 Essential (primary) hypertension; X58.XXXA Exposure to other specified factors, initial encounter; Y93.9 Activity, unspecified; Y92.9 Unspecified place or not applicable
CPT/HCPCS: 10060; 51702; 81003; 87086; 87181; 99284; J2001

== ENCOUNTER 2017-02-06 12:40 | Emergency (ER) | payer MEDICARE, MEDICAID ==
[~2017-02-06] VITALS: Ht 142.2 cm; Wt 63.5 kg
[~2017-02-06 12:40] MED LIST changes: +BACTRIM-DS1 EA ORAL
[2017-02-06 12:50] VITALS: BP 132/71
[2017-02-06] MEDS ORDERED: NS 1000ml 1,900 ML IVLG ONE (13:45)
[2017-02-06] MEDS ORDERED: Vancomycin 1 GM in NS 275 ML IV ONE (13:45)
[2017-02-06] MEDS ORDERED: Cefepime HCl 1 GM in NS 55 ML IV SCH (13:45)
[2017-02-06 13:48] LABS: APPEARANCE,URINE CLOUDY; KETONES,URINE NEGATIVE (NEGATIVE); LEUKOCYTE ESTERASE ,URINE 3+ (NEGATIVE); NITRITE,URINE POSITIVE (NEGATIVE); PH,URINE 8 (4.5-8.0); PROTEIN,URINE 3+ (NEGATIVE); UROBILINOGEN,URINE NORMAL MG/DL (0.0-1.0)
[2017-02-06 14:00] VITALS: BP 115/51
[2017-02-06 14:02] LABS: RBC,URINE 20-30 /HPF (0 - 2); SQUAMOUS EPITHELIAL CELL,UR FEW /LPF (NONE/OCC); WBC,URINE 60-80 /HPF (0 - 2)
[2017-02-06 14:03] LABS: BACTERIA,URINE MANY /HPF
[2017-02-06] MEDS ORDERED: Aspirin Baby 81mg ORAL ONE (14:15)
[2017-02-06 14:44] LABS: BASOPHILS % (AUTO) 0.6 % (0.0-2.0); EOSINOPHILS % (AUTO) 2.3 % (0.0-3.0); LYMPHOCYTES % (AUTO) 19.3 % (20.0-45.0); MEAN CORPUSCULAR HEMOGLOBIN 22.8 PG (27.0-31.0); MEAN CORPUSCULAR HGB CONC 29.7 G/DL (32.0-36.0); MEAN CORPUSCULAR VOLUME 77 FL (80-99); MEAN PLATELET VOLUME 5.6 FL (6.5-10.1); MONOCYTES % (AUTO) 6.7 % (1.0-10.0); NEUTROPHILS % (AUTO) 71.2 % (45.0-75.0); PLATELET COUNT 374 K/UL (150-450); RED BLOOD COUNT 5.15 M/UL (4.20-5.40); RED CELL DISTRIBUTION WIDTH 17.6 % (11.6-14.8); WHITE BLOOD COUNT 13.2 K/UL (4.8-10.8)
--- NOTE | 2017-02-06 14:48 | Emergency Room Report ---
History of Present Illness General Chief Complaint: Dyspnea/Respdistress Source: Patient (LENOREERROL Dai D.O.) Present Illness HPI This patient is brought in by a family member. The patient has a history of spina bifida. She also has a history of hydrocephalus with a BACK HOE OPERATOR shunt. She has had multiple spinal surgeries. She has an indwelling suprapubic catheter. She was brought in by the family because it is noted that starting this morning she is less talkative and length of herself than usual. Usually she is verbal and communicative. She does only have the vocabulary of a 4-year-old. However , she is able to verbalize basic requests and communicate. The family member also notes that the urine coming from the suprapubic catheter is cloudy. There was concern that she is also having difficulty breathing. Also noted was a distended abdomen today. She does have a history of sepsis to include aspiration pneumonia and pyelonephritis. There were no other specific complaints. (ERROL GROVER D.O.) Allergies: Coded Allergies: PENICILLIN G (Verified Allergy, Unknown, 10/11/16) Patient History Past Medical History: see triage record, other - spina bifida, Developmental delay Past Surgical History: other - spinal rods, BACK HOE OPERATOR shunt, supra-pubic catheter. Social History: Denies: alcohol use, drug use, smoking Reviewed Nursing Documentation: PMH: Agreed, PSxH: Agreed (ERROL GROVER D.O. ) Nursing Documentation-PMH Past Medical History: No History, Except For Hx Hypertension: Yes - shunt in the brain Hx Cancer: No Hx Gastrointestinal Problems: No Hx Neurological Problems: Yes - Spina Bifida (Gustavo in place) (ERROL GROVER D.O.) Review of Systems All Other Systems: negative except mentioned in HPI (ERROL GROVER D.O.) Physical Exam Vital Signs Date Time Temp Pulse Resp B/P Pulse Ox O2 Delivery O2 Flow Rate FiO2 02/06/17 12:50 97 24 Nasal Cannula 4.0 02/06/17 12:50 97.3 132/71 71 Sp02 EP Interpretation: reviewed, normal General Appearance: no apparent distress, alert, GCS 15, non-toxic Head: normocephalic, atraumatic Eyes: bilateral eye PERRL, bilateral eye normal inspection ENT: hearing grossly normal, normal pharynx, no angioedema, normal voice Neck: full range of motion, supple/symm/no masses Respiratory: chest non-tender, lungs clear, normal breath sounds, no respiratory distress, no retraction, no accessory muscle use, speaking full sentences Cardiovascular #1: regular rate, rhythm, no edema Gastrointestinal: normal bowel sounds, soft, no guarding, no rebound, distended , tenderness - mild tenderness diffusely Rectal: deferred Genitourinary: other - supra-pubic catheter in place. Cloudy urine. Musculoskeletal: non-tender, other - At baseline Neurologic: alert, responsive, sensory intact, other - sleepy but arousable and will answer simple questions. Psychiatric: mood/affect normal Skin: warm/dry, well hydrated (ERROL GROVER D.O.) Procedures Central Line Central Line : Central Line Lumen: triple Maximal Sterile Barrier Tech: yes cap, yes mask, yes sterile gown, yes sterile gloves, yes large sterile sheet, yes hand hygiene, yes chlorhexidine prep No Max Barrier Tech Because: emergency insertion Central Line Postion: subclavian (L) Anesthesia: Lidocaine cc's of anesthesia: 3 Complications: none Central Line Post Position: sutured, good blood return, position confirmed w / CXR Attempts: Other - 3 Patient Tolerated: Well Complications: None (Ahsan Simon) Medical Decision Making Diagnostic Impression: Primary Impression: UTI (urinary tract infection) Additional Impressions: EKG abnormalities Dyspnea Hydrocephalus BACK HOE OPERATOR (ventriculoperitoneal) shunt status ER Course This patient has many chronic medical conditions. She has an indwelling suprapubic catheter with cloudy urine. UA is consistent with an infection. However, it is difficult to fully assess given it is likely colonized. The patient is found to have new flipped T waves in leads V1, V2 and V3. Troponin is negative. I did discuss the case with the on-call clinical technician who felt that this patient could be admitted here to [facility]. She was given aspirin. She is also given broad-spectrum antibiotics. At the time of this dictation, she is pending a CT of the abdomen and pelvis and a chest x-ray which I have not visualized. Please see Dr. Simon note for results. Labs Test 02/06/17 13:15 02/06/17 14:30 Urine Color Yellow Urine Appearance Cloudy Urine pH 8 (4.5-8.0) Urine Specific Alexander 1.015 (1.005-1.035) Urine Protein 3+ (NEGATIVE) Urine Glucose (UA) Negative (NEGATIVE) Urine Ketones Negative (NEGATIVE) Urine Occult Blood 4+ (NEGATIVE) Urine Nitrite Positive (NEGATIVE) Urine Bilirubin Negative (NEGATIVE) Urine Urobilinogen Normal MG/DL (0.0-1.0) Urine Leukocyte Esterase 3+ (NEGATIVE) Urine RBC 20-30 /HPF (0 - 2) Urine WBC 60-80 /HPF (0 - 2) Urine Squamous Epithelial Cells Few /LPF (NONE/OCC) Urine Bacteria Many /HPF (NONE) White Blood Count 13.2 K/UL (4.8-10.8) Red Blood Count 5.15 M/UL (4.20-5.40) Hemoglobin 11.7 G/DL (12.0-16.0) Hematocrit 39.5 % (37.0-47.0) Mean Corpuscular Volume 77 FL (80-99) Mean Corpuscular Hemoglobin 22.8 PG (27.0-31.0) Mean Corpuscular Hemoglobin Concent 29.7 G/DL (32.0-36.0) Red Cell Distribution Width 17.6 % (11.6-14.8) Platelet Count 374 K/UL (150-450) Mean Platelet Volume 5.6 FL (6.5-10.1) Neutrophils (%) (Auto) 71.2 % (45.0-75.0) Lymphocytes (%) (Auto) 19.3 % (20.0-45.0) Monocytes (%) (Auto) 6.7 % (1.0-10.0) Eosinophils (%) (Auto) 2.3 % (0.0-3.0) Basophils (%) (Auto) 0.6 % (0.0-2.0) Sodium Level 137 mEQ/L (135-145) Potassium Level 4.1 mEQ/L (3.4-4.9) Chloride Level 92 mEQ/L (98-107) Carbon Dioxide Level 38 mEQ/L (20-30) Anion Gap 7 (5-15) Blood Urea Nitrogen 10 mg/dL (7-23) Creatinine 0.3 mg/dL (0.5-0.9) Estimat Glomerular Filtration Rate > 60 mL/min (>60) Glucose Level 122 mg/dL (74-106) Lactic Acid Level 1.10 mmol/L (0.66-2.22) Calcium Level 8.2 mg/dL (8.6-10.2) Total Bilirubin < 0.2 mg/dL (0.0-1.2) Aspartate Amino Transf (AST/SGOT) 9 U/L (5-40) Alanine Aminotransferase (ALT/SGPT) < 5 U/L (3-33) Alkaline Phosphatase 86 U/L (35-104) Total Creatine Kinase 9 U/L (26-140) Troponin I < 0.30 ng/mL (<=0.30) Total Protein 7.4 g/dL (6.6-8.7) Albumin 3.2 g/dL (3.5-5.2) Globulin 4.2 g/dL Albumin/Globulin Ratio 0.7 (1.0-2.7) (ERROL GROVER D.O.) ER Course The patient was endorsed to me by Dr. Drummond, patient was noted to have a CT pending of head and abdomen pelvis. CT the head read by radiologist showed marked hydrocephalus with BACK HOE OPERATOR shunt present. Patient was noted to the abdominal wall CT multiple findings including BACK HOE OPERATOR shunt discontinuity in the abdominal wall approximately 2 cm. The patient's case was discussed with Dr. Lara from [facility] who agreed except patient in transfer for higher level of care. The patient had been given IV antibiotics for urinary tract infection.The patient's CT findings were consistent with hydrocephalus. The patient's IV access subsequently was dislodged. Patient was noted to have a right upper extremity edema. A right subclavian central venous catheter was attempted without success. A left subclavian central line was placed under sterile technique. Post procedure x-ray showed no evidence of pneumothorax adequate line placement Labs Test 02/06/17 13:15 02/06/17 14:30 Urine Color Yellow Urine Appearance Cloudy Urine pH 8 (4.5-8.0) Urine Specific Alexander 1.015 (1.005-1.035) Urine Protein 3+ (NEGATIVE) Urine Glucose (UA) Negative (NEGATIVE) Urine Ketones Negative (NEGATIVE) Urine Occult Blood 4+ (NEGATIVE) Urine Nitrite Positive (NEGATIVE) Urine Bilirubin Negative (NEGATIVE) Urine Urobilinogen Normal MG/DL (0.0-1.0) Urine Leukocyte Esterase 3+ (NEGATIVE) Urine RBC 20-30 /HPF (0 - 2) Urine WBC 60-80 /HPF (0 - 2) Urine Squamous Epithelial Cells Few /LPF (NONE/OCC) Urine Bacteria Many /HPF (NONE) White Blood Count 13.2 K/UL (4.8-10.8) Red Blood Count 5.15 M/UL (4.20-5.40) Hemoglobin 11.7 G/DL (12.0-16.0) Hematocrit 39.5 % (37.0-47.0) Mean Corpuscular Volume 77 FL (80-99) Mean Corpuscular Hemoglobin 22.8 PG (27.0-31.0) Mean Corpuscular Hemoglobin Concent 29.7 G/DL (32.0-36.0) Red Cell Distribution Width 17.6 % (11.6-14.8) Platelet Count 374 K/UL (150-450) Mean Platelet Volume 5.6 FL (6.5-10.1) Neutrophils (%) (Auto) 71.2 % (45.0-75.0) Lymphocytes (%) (Auto) 19.3 % (20.0-45.0) Monocytes (%) (Auto) 6.7 % (1.0-10.0) Eosinophils (%) (Auto) 2.3 % (0.0-3.0) Basophils (%) (Auto) 0.6 % (0.0-2.0) Sodium Level 137 mEQ/L (135-145) Potassium Level 4.1 mEQ/L (3.4-4.9) Chloride Level 92 mEQ/L (98-107) Carbon Dioxide Level 38 mEQ/L (20-30) Anion Gap 7 (5-15) Blood Urea Nitrogen 10 mg/dL (7-23) Creatinine 0.3 mg/dL (0.5-0.9) Estimat Glomerular Filtration Rate > 60 mL/min (>60) Glucose Level 122 mg/dL (74-106) Lactic Acid Level 1.10 mmol/L (0.66-2.22) Calcium Level 8.2 mg/dL (8.6-10.2) Total Bilirubin < 0.2 mg/dL (0.0-1.2) Aspartate Amino Transf (AST/SGOT) 9 U/L (5-40) Alanine Aminotransferase (ALT/SGPT) < 5 U/L (3-33) Alkaline Phosphatase 86 U/L (35-104) Total Creatine Kinase 9 U/L (26-140) Creatine Kinase MB < 1.5 ng/mL (< 3.8) Creatine Kinase MB Relative Index Troponin I < 0.30 ng/mL (<=0.30) Total Protein 7.4 g/dL (6.6-8.7) Albumin 3.2 g/dL (3.5-5.2) Globulin 4.2 g/dL Albumin/Globulin Ratio 0.7 (1.0-2.7) (Ahsan Simon) EKG Diagnostic Results Rate: normal Rhythm: NSR ST Segments: other Other Impression Flipped T-waves in V1, V2, V3. New from October of this year. (ERROL GROVER D.O.) Rhythm Strip Diag. Results EP Interpretation: yes Rate: 80's Rhythm: NSR, no PVC's, no ectopy (ERROL GROVER D.O.) CT/MRI/US Diagnostic Results CT/MRI/US Diagnostic Results : Imaging Test Ordered: CT abd pending (ERROL GROVER D.O.) Last Vital Signs Date Time Temp Pulse Resp B/P Pulse Ox O2 Delivery O2 Flow Rate FiO2 02/06/17 14:00 89 20 115/51 94 Nasal Cannula 4.0 02/06/17 12:50 97.3 (ERROL GROVER D.O.) Status: unchanged (Ahsan Simon) Disposition: XFER SHT-TRM HOSP Condition: Serious Referrals: NON PHYSICIAN (PCP) ERROL GROVER D.O. Feb 06, 2017 14:48 Ahsan Simon Feb 06, 2017 17:06
[2017-02-06] MEDS ORDERED: Tubing IV Cassette IV ONE (14:52)
[2017-02-06] MEDS ORDERED: Tubing IV Secondary IV ONE (14:52)
[2017-02-06] MEDS ORDERED: Cefepime 1gm vial ONE (14:52)
[2017-02-06] MEDS ORDERED: NS 275 ML ONE (14:52)
[2017-02-06] MEDS ORDERED: Vancomycin 1gm inj IVPB ONE (14:52)
[2017-02-06] MEDS ORDERED: NS 55 ML IV ONE (14:52)
[2017-02-06 14:59] LABS: ALANINE AMINOTRANSFERASE < 5 U/L (3-33); ALBUMIN/GLOBULIN RATIO 0.7 (1.0-2.7); ANION GAP 7 (5-15); ASPARTATE AMINO TRANSFERASE 9 U/L (5-40); CALCIUM 8.2 mg/dL (8.6-10.2); CARBON DIOXIDE 38 mEQ/L (20-30); CHLORIDE 92 mEQ/L (98-107); CREATININE 0.3 mg/dL (0.5-0.9); GLOMERULAR FILTRATION RATE > 60 mL/min (>60); HEMOLYSIS 0; POTASSIUM 4.1 mEQ/L (3.4-4.9); SODIUM 137 mEQ/L (135-145); TOTAL PROTEIN 7.4 g/dL (6.6-8.7); TROPONIN I < 0.30 ng/mL (<=0.30)
[2017-02-06 15:09] LABS: CKMB < 1.5 ng/mL (< 3.8)
--- NOTE | 2017-02-06 15:54 | Diagnostic Imaging Report ---
Indication: Altered mental status Technique: Contiguous 5 mm thick transaxial imaging of the head obtained in a Siemens Sensation [address] scanner. Soft tissue and bone windows generated. Total Dose length Product (DLP): [address] Dose Index Volume (CTDIvol): 70.38 mGy Comparison: none Findings: There is a right posterior parietal ventriculostomy present. The tip is in good position within the left lateral ventricle. The lateral ventricle third ventricle and fourth ventricle are markedly dilated. There is no acute hemorrhage. The fourth ventricle has a highly unusual appearance. There is a little to no cerebellar vermis identified. The fourth ventricle opens up to the right side of the cerebellum. Very little cerebellar parenchymal tissue is noted on the right. The brainstem is also very small. Osseous structures are unremarkable. Impression: Marked hydrocephalus. Ventriculostomy noted in the position. Please correlate clinically. There are no prior studies for comparison. Unusually small posterior fossa structures with absent or small cerebellar vermis and hypoplastic cerebellum/sloan. The CT scanner at [facility] is accredited by the [employer] and the scans are performed using dose optimization techniques as appropriate to a performed exam including Automatic Exposure control.
[2017-02-06 16:00] VITALS: BP 110/47
--- NOTE | 2017-02-06 16:09 | Diagnostic Imaging Report ---
Indication: Abdominal pain Technique: Continuous helical transaxial imaging of the abdomen and pelvis was obtained from the lung bases to the pubic symphysis during intravenous contrast administration. Coronal 2-D reformats were also obtained. Study obtained in a Siemens sensation [address] Total Dose length Product (DLP): [address] Dose Index Volume (CTDIvol): 20 mGy Comparison: None Findings: The heart is moderately enlarged. There is some posterior basilar atelectasis noted. Trace pericardial fluid demonstrated. Spinal rods traversing the entirety of the lumbar spine and visualized portion of the lower thoracic spine. The liver and spleen are prominent. The left kidney is small. There is a ureteral stent present which appears to be in good position. Suprapubic catheter and balloon is noted in the urinary bladder. Multiple small stones are present within the calyces of the left kidney. There is no hydronephrosis definitely seen. Severe deformities of the pelvis which appears hypoplastic noted. Most of the left ilium is absent. Gross spinal dysraphism noted in the posterior lower aspect of the lumbar and sacral spine. Both hips are dislocated. Prominent tumor is also noted posterior to the sacrum tracking to the sacrum and ilium, which appear abnormally sclerotic, suggestive of chronic osteomyelitis.. There is moderate to severe scoliosis convex to the left. HEAD MEN'S GOLF COACH shunt partially visualized in the right subcutaneous fat in the anterior abdominal and chest wall. Note that the is fractured and by 2 cm within the subcutaneous fat. The noncontiguous distal part of the HEAD MEN'S GOLF COACH shunt is in the abdomen. There is no ascites. There is moderate stool in the colon. Impression: HEAD MEN'S GOLF COACH shunt malfunction noted. Noncontiguous, fractured subcutaneous portion of the catheter noted. No acute intra-abdominal findings demonstrated. No evidence of intra-abdominal abscess or bowel obstruction. Chronic, large decubitus ulcer in the sacral region with the bony changes suggestive of chronic osteomyelitis. Deformity, hypoplastic pelvis, chronic dislocation of both hips, scoliosis. These are stigmata of nonspecific neurodegenerative disease. Hepatosplenomegaly Cardiomegaly. Scoliosis with spinal stabilization alysha Suprapubic catheter in good position The CT scanner at [facility] is accredited by the [employer] and the scans are performed using dose optimization techniques as appropriate to a performed exam including Automatic Exposure control.
[2017-02-06 17:00] VITALS: BP 97/67
[2017-02-06] MEDS ORDERED: MYRBETRIQ50 MG PO (17:32)
[2017-02-06 18:00] VITALS: BP 100/74
[2017-02-06] MEDS ORDERED: Lidocaine 1% Plain 30 ml INJ ONE (18:03)
[2017-02-06] MEDS ORDERED: LACTULOSE10 GM/153 PO (18:07)
[2017-02-06 18:40] VITALS: BP 100/74
[2017-02-06] MEDS ORDERED: SENNA8.6 M2 PO (19:10)
--- NOTE | 2017-02-07 08:14 | Diagnostic Imaging Report ---
Indication: Dyspnea Comparison: 11/07/2006 A single view chest radiograph was obtained. 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 The film does not show what was seen on the CT, which showed discontinuous in fracture distal part of the POULTRY FARM LABORER shunt. There is a right lower thoracic and lumbar spinal alysha. Scoliosis is noted. Bones are osteopenic. Cardiomegaly is present. Mild interstitial edema suspected. Impression: Mild interstitial edema suspected. However this appears chronic. Other findings as above
--- NOTE | 2017-02-07 11:37 | Diagnostic Imaging Report ---
Indication: Status post line placement Technique: One view of the chest Comparison: 3 hours earlier Findings: Placed selectively central venous catheter, tip which projects at level of mid superior vena cava. Right ventriculoperitoneal shunt tubing remains. Again demonstrated is retrocardiac consolidation and possibly generalized interstitial congestion. There is no pneumothorax The heart remains enlarged. Again demonstrated is chest wall deformity and a single spinal fusion alysha. Impression: Status post uncomplicated satisfactory left subclavian central venous catheter placement Other stable findings as described
--- NOTE | 2017-02-07 16:33 | Cardiology Report ---
APPROVED REPORT EKG Measurement Heart [id number] Normal sinus rhythm Possible Inferior infarct, age undetermined T wave abnormality, consider anterior ischemia Prolonged QT Abnormal ECG
== END 2017-02-06 19:04 | disposition short-term general hospital (02) ==
LOC: EMR 13:40
DX: N39.0 Urinary tract infection, site not specified (principal); R94.31 Abnormal electrocardiogram [ECG] [EKG]; G91.9 Hydrocephalus, unspecified; Z98.2 Presence of cerebrospinal fluid drainage device; R06.00 Dyspnea, unspecified; I10 Essential (primary) hypertension; Q05.9 Spina bifida, unspecified; Z88.0 Allergy status to penicillin; R16.2 Hepatomegaly with splenomegaly, not elsewhere classified; M41.9 Scoliosis, unspecified
CPT/HCPCS: 36415; 70450; 71010; 74177; 80053; 81003; 82550; 82553; 83605; 84484; 85025; 87040; 87086; 87181; 93005; 96360; 96361; 96374; 99285; J2001; J3370; J7050; Q9967

== ENCOUNTER 2017-03-04 04:23 | Inpatient (IN) | payer MEDICARE, MEDICAID ==
[~2017-03-04] VITALS: Ht 154.9 cm; Wt 56.7 kg
[~2017-03-04 04:23] MED LIST changes: +LACTULOSE10 GM/153 PO; +MYRBETRIQ50 MG PO
[2017-03-04 04:50] VITALS: BP 99/61
--- NOTE | 2017-03-04 04:51 | Emergency Room Report ---
History of Present Illness General Chief Complaint: Fever Source: Family Member, Medical Record Present Illness HPI This is a 46-year-old female who is wheelchair-bound. She has a history of suprapubic catheter and frequent urinary tract infection. She brought in by her brother for chief complaint of fever and weakness. Onset last night. No nausea no vomiting. Fever is 100. No abdominal pain or diarrhea. Allergies: Coded Allergies: PENICILLIN G (Verified Allergy, Unknown, 10/11/16) Patient History Past Medical History: see triage record, old chart reviewed Past Surgical History: other Pertinent Family History: none Social History: Denies: drug use Now: No Immunizations: other Reviewed Nursing Documentation: PMH: Agreed, PSxH: Agreed Nursing Documentation-PMH Hx Hypertension: Yes - shunt in the brain Hx Cancer: No Hx Gastrointestinal Problems: No Hx Neurological Problems: Yes - Spina Bifida (Gustavo in place) Review of Systems Constitutional: Reports: fever, malaise, weakness Eye: Denies: blurred vision, eye pain ENT: Denies: ear pain, nose congestion, throat swelling Respiratory: Denies: cough, shortness of breath Cardiovascular: Denies: chest pain, palpitations Gastrointestinal: Denies: abdominal pain, diarrhea, nausea, vomiting Musculoskeletal: Denies: back pain, joint pain Skin: Denies: rash Neurological: Denies: headache, numbness Endocrine: Denies: increased thirst, increased urine Hematologic/Lymphatic: Denies: easy bruising All Other Systems: negative except mentioned in HPI Physical Exam Vital Signs Date Time Temp Pulse Resp B/P Pulse Ox O2 Delivery O2 Flow Rate FiO2 03/04/17 04:35 99.1 102 20 99/61 87 Room Air vitals with hypoxia. repeat pulse ox is 98% room air Sp02 EP Interpretation: normal General Appearance: alert, mild distress Head: normocephalic, atraumatic Eyes: bilateral eye EOMI, bilateral eye PERRL ENT: hearing grossly normal, normal pharynx Neck: full range of motion, supple, no meningismus Respiratory: chest non-tender, lungs clear, normal breath sounds Cardiovascular #1: regular rate, rhythm, no murmur Gastrointestinal: normal bowel sounds, non tender, no mass, no organomegaly, no bruit, non-distended Genitourinary: other - Suprapubic catheter with cloudy urine Musculoskeletal: back normal, normal range of motion Neurologic: alert Psychiatric: mood/affect normal Skin: warm/dry Procedures Critical Care Time Critical Care Time Critical care is mandated in this patient who presented with sepsis from UTI. Patient require my urgent intervention to attenuate the risks of metabolic collapse which may lead to cardiovascular collapse and . Critical care time is 35 minutes excluding any reportable procedure. Critical care time included evaluation, multiple reevaluation, looking at old charts, interpreting laboratory and diagnostic data, discussing case with patient and family and consultants, and charting. Medical Decision Making Diagnostic Impression: Primary Impression: Sepsis Qualified Codes: A41.9 - Sepsis, unspecified organism Additional Impressions: ESBL (extended spectrum beta-lactamase) producing bacteria infection Proteinuria Qualified Codes: R80.9 - Proteinuria, unspecified ER Course Patient presents with sepsis secondary to UTI infection. She grew out ESBL Escherichia coli and Proteus last month. Both are sensitive to Invanz. Chest x -ray unremarkable. No evidence of CHF. Notice of pneumonia. Again pulse ox is normal on room air. Lab Results Impression labs with leukocytosis EKG Diagnostic Results EKG Time: 06:02 Rate: normal Rhythm: NSR ST Segments: no acute changes Rhythm Strip Diag. Results Rhythm Strip Time: 06:02 EP Interpretation: yes Rate: 92 Rhythm: NSR, no PVC's, no ectopy Chest X-Ray Diagnostic Results Chest X-Ray Diagnostic Results : Chest X-Ray Ordered: Yes # of Views/Limited/Complete: 1 View Indication: Other - Fever EP Interpretation: Yes Interpretation: no consolidation, no effusion, no pneumothorax, no acute cardiopulmonary disease, other - Cardiomegaly Impression: No acute disease Interpreting ER Provider: Electronically signed by Ajit Coates MD Last Vital Signs Date Time Temp Pulse Resp B/P Pulse Ox O2 Delivery O2 Flow Rate FiO2 03/04/17 04:35 99.1 102 20 99/61 87 Room Air Status: improved Disposition: ADMITTED INPATIENT Condition: Serious AJIT COATES M.D. Mar 04, 2017 04:51
[2017-03-04 06:09] LABS: MEAN CORPUSCULAR HEMOGLOBIN 22.4 PG (27.0-31.0); MEAN CORPUSCULAR HGB CONC 30.3 G/DL (32.0-36.0); MEAN CORPUSCULAR VOLUME 74 FL (80-99); PLATELET COUNT 392 K/UL (150-450); RED BLOOD COUNT 4.84 M/UL (4.20-5.40); RED CELL DISTRIBUTION WIDTH 16.8 % (11.6-14.8)
[2017-03-04] MEDS ORDERED: Ertapenem 1 GM in NS 55 ML IV ONE (06:15)
[2017-03-04 06:27] LABS: APPEARANCE,URINE CLOUDY; KETONES,URINE NEGATIVE (NEGATIVE); LEUKOCYTE ESTERASE ,URINE 3+ (NEGATIVE); NITRITE,URINE POSITIVE (NEGATIVE); PH,URINE 8 (4.5-8.0); PROTEIN,URINE 3+ (NEGATIVE); UROBILINOGEN,URINE NORMAL MG/DL (0.0-1.0)
[2017-03-04 06:29] LABS: INR 1.1 (0.9-1.1); PROTHROMBIN TIME 11.7 SEC (9.30-11.50)
[2017-03-04] MEDS ORDERED: Ertapenem (INVanz) Inj ONE (06:31)
[2017-03-04 06:32] LABS: TROPONIN I < 0.30 ng/mL (<=0.30)
[2017-03-04 06:34] LABS: ALANINE AMINOTRANSFERASE 5 U/L (3-33); ALBUMIN/GLOBULIN RATIO 0.6 (1.0-2.7); ANION GAP 6 (5-15); ASPARTATE AMINO TRANSFERASE 8 U/L (5-40); CALCIUM 9.2 mg/dL (8.6-10.2); CARBON DIOXIDE 36 mEQ/L (20-30); CHLORIDE 94 mEQ/L (98-107); CREATININE 0.3 mg/dL (0.5-0.9); GLOMERULAR FILTRATION RATE > 60 mL/min (>60); HEMOLYSIS 0; SODIUM 136 mEQ/L (135-145); TOTAL PROTEIN 7.5 g/dL (6.6-8.7)
[2017-03-04 06:44] LABS: CKMB < 1.5 ng/mL (< 3.8)
[2017-03-04 06:50] LABS: BACTERIA,URINE MODERATE /HPF; SQUAMOUS EPITHELIAL CELL,UR FEW /LPF (NONE/OCC)
[2017-03-04 06:51] LABS: CALCIUM OXALATE CRYSTALS,UR FEW /LPF; TRIPLE PHOSPHATE CRYSTAL,UR FEW /LPF
[2017-03-04 06:53] LABS: ICTOTEST NEGATIVE
[2017-03-04 06:54] VITALS: BP 104/44
[2017-03-04] MEDS ORDERED: Nitroglycerin Subl 0.4mg tab (Bottle Of 25) SL PRN ×2 (08:00→20:00)
[2017-03-04] MEDS ORDERED: Miralax 17gm pkt ORAL PRN ×2 (08:00→20:00)
[2017-03-04] MEDS ORDERED: Morphine Sulfate 2mg/ml Inj IVP PRN ×2 (08:00→20:00)
[2017-03-04] MEDS ORDERED: DuoNeb 0.5-3(2.5)mg/3ml neb HHN PRN ×2 (08:00→20:00)
[2017-03-04 08:01] LABS: ANISOCYTOSIS 1+; BAND NEUTROPHILS % (MANUAL) 0 % (0-8); BASOPHILS % (MANUAL) 0 % (0-2); EOSINOPHILS % (MANUAL) 0 % (0-3); LYMPHOCYTES % (MANUAL) 19 % (20-45); MICROCYTES 1+; NEUTROPHILS % (MANUAL) 76 % (45-75); PLATELET ESTIMATE ADEQUATE; PLATELET MORPHOLOGY NORMAL; TOTAL CELLS COUNTED 100
[2017-03-04 08:02] LABS: HYPOCHROMASIA 1+
[2017-03-04] MEDS ORDERED: Heparin 5000 units/ml inj SUBQ SCH (09:00)
[2017-03-04] MEDS: Docusate 100mg cap ORAL SCH ×2 (09:31→17:08)
[2017-03-04] MEDS ORDERED: Vancomycin 1 GM in D5W 275 ML IVPB SCH (10:00)
--- NOTE | 2017-03-04 10:43 | History and Physical ---
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 Onset last night. No nausea no vomiting. Fever is 100. No abdominal pain or diarrhea. Pt is admitted to telemetry for sepsis. Allergies: Coded Allergies: PENICILLIN G (Verified Allergy, Unknown, 10/11/16) Medication History Scheduled Ascorbic Acid* (Ascorbic Acid*), 500 MG ORAL TWICE A DAY, (Reported) Docusate Sodium* (Docusate Sodium*), 100 MG ORAL TWICE A DAY, (Reported) Mirabegron (Myrbetriq), 50 MG PO DAILY, (Reported) Multivitamins* (Multivitamins*), 1 TAB ORAL DAILY, (Reported) Sennosides (Senna), 8.6 MG PO BID, (Reported) Patient History Healthcare decision maker Quinn Mueller (Brother) Resuscitation status Full Code Advanced Directive on File Past Medical/Surgical History Past Medical/Surgical History: (1) Spina bifida (2) Urinary catheter in place (3) ESBL (extended spectrum beta-lactamase) producing bacteria infection Review of Systems All Other Systems: negative except mentioned in HPI Physical Exam General Appearance: WD/WN Lines, tubes and drains: peripheral HEENT: normocephalic Neck: non-tender, normal alignment Respiratory/Chest: chest wall non-tender, lungs clear Cardiovascular/Chest: normal peripheral pulses, normal rate Abdomen: normal bowel sounds, non tender Genitourinary/Rectal: normal genital exam, normal rectal exam Extremities: normal range of motion Last 24 Hour Vital Signs Date Time Temp Pulse Resp B/P Pulse Ox O2 Delivery O2 Flow Rate FiO2 03/04/17 07:40 98.5 93 24 104/44 97 Room Air 03/04/17 06:54 98.5 93 24 104/44 97 Room Air 03/04/17 04:50 99.1 102 20 99/61 87 Room Air 03/04/17 04:35 99.1 102 20 99/61 87 Room Air Intake and Output 03/03/17 03/04/17 19:00 07:00 Intake Total 0 ml Balance 0 ml Intake Oral 0 ml Other 0 ml Laboratory Tests Test 03/04/17 04:50 03/04/17 06:00 White Blood Count 21.0 K/UL (4.8-10.8) H Red Blood Count 4.84 M/UL (4.20-5.40) Hemoglobin 10.9 G/DL (12.0-16.0) L Hematocrit 35.9 % (37.0-47.0) L Mean Corpuscular Volume 74 FL (80-99) L Mean Corpuscular Hemoglobin 22.4 PG (27.0-31.0) L Mean Corpuscular Hemoglobin Concent 30.3 G/DL (32.0-36.0) L Red Cell Distribution Width 16.8 % (11.6-14.8) H Platelet Count 392 K/UL (150-450) Mean Platelet Volume 6.0 FL (6.5-10.1) L Neutrophils (%) (Auto) % (45.0-75.0) Lymphocytes (%) (Auto) % (20.0-45.0) Monocytes (%) (Auto) % (1.0-10.0) Eosinophils (%) (Auto) % (0.0-3.0) Basophils (%) (Auto) % (0.0-2.0) Differential Total Cells Counted 100 Neutrophils % (Manual) 76 % (45-75) H Lymphocytes % (Manual) 19 % (20-45) L Monocytes % (Manual) 5 % (1-10) Eosinophils % (Manual) 0 % (0-3) Basophils % (Manual) 0 % (0-2) Band Neutrophils 0 % (0-8) Platelet Estimate Adequate Platelet Morphology Normal Hypochromasia 1+ Anisocytosis 1+ Microcytosis 1+ Prothrombin Time 11.7 SEC (9.30-11.50) H Prothromb Time International Ratio 1.1 (0.9-1.1) Activated Partial Thromboplast Time 35 SEC (23-33) H Sodium Level 136 mEQ/L (135-145) Potassium Level 4.0 mEQ/L (3.4-4.9) Chloride Level 94 mEQ/L (98-107) L Carbon Dioxide Level 36 mEQ/L (20-30) H Anion Gap 6 (5-15) Blood Urea Nitrogen 15 mg/dL (7-23) Creatinine 0.3 mg/dL (0.5-0.9) L Estimat Glomerular Filtration Rate > 60 mL/min (>60) Glucose Level 139 mg/dL (74-106) H Lactic Acid Level 1.00 mmol/L (0.66-2.22) Calcium Level 9.2 mg/dL (8.6-10.2) Total Bilirubin 0.2 mg/dL (0.0-1.2) Aspartate Amino Transf (AST/SGOT) 8 U/L (5-40) Alanine Aminotransferase (ALT/SGPT) 5 U/L (3-33) Alkaline Phosphatase 94 U/L (35-104) Total Creatine Kinase 7 U/L (26-140) L Creatine Kinase MB < 1.5 ng/mL (< 3.8) Creatine Kinase MB Relative Index 21.4 Troponin I < 0.30 ng/mL (<=0.30) Total Protein 7.5 g/dL (6.6-8.7) Albumin 3.0 g/dL (3.5-5.2) L Globulin 4.5 g/dL Albumin/Globulin Ratio 0.6 (1.0-2.7) L Urine Color [place] Urine Appearance Cloudy Urine pH 8 (4.5-8.0) Urine Specific [place] 1.010 (1.005-1.035) Urine Protein 3+ (NEGATIVE) H Urine Glucose (UA) Negative (NEGATIVE) Urine Ketones Negative (NEGATIVE) Urine Occult Blood 4+ (NEGATIVE) H Urine Nitrite Positive (NEGATIVE) H Urine Bilirubin Negative (NEGATIVE) Urine Ictotest Negative Urine Urobilinogen Normal MG/DL (0.0-1.0) Urine Leukocyte Esterase 3+ (NEGATIVE) H Urine RBC 5-10 /HPF (0 - 2) H Urine WBC 5-10 /HPF (0 - 2) H Urine Squamous Epithelial Cells Few /LPF (NONE/OCC) Urine Calcium Oxalate Crystals Few /LPF (NONE) Urine Triple Phosphate Crystals Few /LPF (NONE) H Urine Bacteria Moderate /HPF (NONE) H Height (Feet): 5 Height (Inches): 1.00 Weight (Pounds): 125 Medications Current Medications Medications (Trade) Dose Ordered Sig/Sandeep Route PRN Reason Start Time Stop Time Status Last Admin Dose Admin Acetaminophen (Tylenol) 650 mg Q4H PRN ORAL fever>100.5 03/04/17 08:00 04/03/17 07:59 Albuterol/ Ipratropium 3 ml 3 ml Q4H PRN HHN Shortness of Breath 03/04/17 08:00 03/09/17 07:59 Docusate Sodium (Colace) 100 mg TWICE A DAY ORAL 03/04/17 09:00 04/03/17 08:59 03/04/17 09:31 Ertapenem 1 gm/ Sodium Chloride 50 ml @ 100 mls/hr Q24H IVPB 03/05/17 06:00 03/10/17 05:59 Heparin Sodium (Porcine) (Heparin 5000 units/ml) 5,000 units EVERY 12 HOURS SUBQ 03/04/17 09:00 04/03/17 08:59 03/04/17 09:33 Morphine Sulfate (Morphine Sulfate) 2 mg Q4H PRN IVP Moderate Pain (Pain Scale 4-6) 03/04/17 08:00 03/11/17 07:59 Nitroglycerin 0.4 mg 0.4 mg Q5M PRN SL Prn Chest Pain 03/04/17 08:00 04/03/17 07:59 Ondansetron HCl (Zofran) 4 mg Q6H PRN IVP Nausea & Vomiting 03/04/17 08:00 04/03/17 07:59 Polyethylene Glycol (Miralax) 17 gm DAILYPRN PRN ORAL Constipation 03/04/17 08:00 04/03/17 07:59 Sennosides (Senokot) 8.6 mg BID ORAL 03/04/17 09:00 04/03/17 08:59 03/04/17 09:39 Temazepam (Restoril) 15 mg HSPRN PRN ORAL Insomnia 03/04/17 21:00 03/11/17 20:59 Vancomycin HCl/ Dextrose (Vancomycin/D5W) 275 ml @ 183.3 mls/ hr Q24H IVPB 03/04/17 10:00 03/04/17 11:00 Vancomycin HCl/ Dextrose (Vancomycin/D5W) 275 ml @ 183.708 mls/hr Q12H IVPB 03/04/17 22:00 03/09/17 21:59 Assessment/Plan Problem List: (1) Sepsis ICD Codes: A41.9 - Sepsis, unspecified organism SNOMED: 26683028 Qualifiers: Qualified Codes: A41.9 - Sepsis, unspecified organism (2) Spina bifida ICD Codes: Q05.9 - Spina bifida, unspecified SNOMED: 93629844 (3) Suprapubic catheter ICD Codes: Z93.59 - Other cystostomy status SNOMED: 472007402, 822425463 (4) Paraplegia ICD Codes: G82.20 - Paraplegia, unspecified SNOMED: 27392958 Assessment/Plan dominguez cultures IV abx check electrolytes anemia w/u med/surg JARET HERNÁNDEZ Mar 04, 2017 10:43
[2017-03-04 12:24] VITALS: BP 125/65
[2017-03-04 15:32] VITALS: BP 104/71
--- NOTE | 2017-03-04 17:49 | Cardiology Report ---
APPROVED REPORT EKG Measurement Heart [id number] Normal sinus rhythm Inferior infarct, age undetermined Cannot rule out Anterior infarct, age undetermined Abnormal ECG
[2017-03-04 19:42] LABS: APPEARANCE,URINE CLEAR; KETONES,URINE NEGATIVE (NEGATIVE); LEUKOCYTE ESTERASE ,URINE 3+ (NEGATIVE); NITRITE,URINE POSITIVE (NEGATIVE); PH,URINE 7 (4.5-8.0); PROTEIN,URINE 2+ (NEGATIVE); UROBILINOGEN,URINE NORMAL MG/DL (0.0-1.0)
[2017-03-04 19:52] LABS: BACTERIA,URINE FEW /HPF; SQUAMOUS EPITHELIAL CELL,UR FEW /LPF (NONE/OCC)
[2017-03-04 20:00] VITALS: BP 107/59
[2017-03-04] MEDS: Heparin 5000 units/ml inj SUBQ SCH (21:09)
[2017-03-04] MEDS: Vancomycin 750 MG in D5W 275 ML IVPB SCH (21:10)
[2017-03-04] MEDS ORDERED: Vancomycin 750mg/D5W 275ml IVPB SCH ×2 (22:00)
[2017-03-05] VITALS: BP 114/64
[2017-03-05 04:00] VITALS: BP 103/56
[2017-03-05 07:43] LABS: ALANINE AMINOTRANSFERASE 5 U/L (3-33); ALBUMIN/GLOBULIN RATIO 0.6 (1.0-2.7); ANION GAP 4 (5-15); ASPARTATE AMINO TRANSFERASE 7 U/L (5-40); CALCIUM 8.7 mg/dL (8.6-10.2); CARBON DIOXIDE 34 mEQ/L (20-30); CHLORIDE 99 mEQ/L (98-107); CREATININE 0.3 mg/dL (0.5-0.9); GLOMERULAR FILTRATION RATE > 60 mL/min (>60); HEMOLYSIS 2; POTASSIUM 3.8 mEQ/L (3.4-4.9); SODIUM 137 mEQ/L (135-145)
[2017-03-05 07:44] LABS: MEAN CORPUSCULAR HEMOGLOBIN 22.9 PG (27.0-31.0); MEAN CORPUSCULAR HGB CONC 30.3 G/DL (32.0-36.0); MEAN CORPUSCULAR VOLUME 76 FL (80-99); PLATELET COUNT 333 K/UL (150-450); RED CELL DISTRIBUTION WIDTH 17.3 % (11.6-14.8); WHITE BLOOD COUNT 12.8 K/UL (4.8-10.8)
[2017-03-05 07:49] LABS: PROTHROMBIN TIME 10.3 SEC (9.30-11.50)
--- NOTE | 2017-03-05 08:31 | Diagnostic Imaging Report ---
Indication: Dyspnea Comparison: 02/06/17 A single view chest radiograph was obtained. Findings: There is stabilization spinal rods from about the mid part of the thoracic spine to below the [id number] somewhat within the lumbar sacral spine. Bones are osteopenic. There is obvious scoliosis. Heart is enlarged. Interstitial opacities and pulmonary vascularity are slightly prominent but this was also seen previously as well. There is a LUNG PULLER shunt projected over the right side of the chest. Impression: Mild interstitial edema or pneumonitis may be present. However findings appear stable compared to last study.
[2017-03-05 09:24] LABS: ERYTHROCYTE SEDIMENTATION RATE 37 MM/HR (0-20)
[2017-03-05 09:56] LABS: BAND NEUTROPHILS % (MANUAL) 0 % (0-8); BASOPHILS % (MANUAL) 1 % (0-2); EOSINOPHILS % (MANUAL) 2 % (0-3); HYPOCHROMASIA 1+; LYMPHOCYTES % (MANUAL) 13 % (20-45); NEUTROPHILS % (MANUAL) 82 % (45-75); PLATELET ESTIMATE ADEQUATE; PLATELET MORPHOLOGY NORMAL; TOTAL CELLS COUNTED 100
[2017-03-05 09:57] LABS: ANISOCYTOSIS 1+; MICROCYTES 1+; STOMATOCYTES OCCASIONAL
[2017-03-05] MEDS: Vancomycin 750 MG in D5W 275 ML IVPB SCH ×2 (10:00→21:17)
[2017-03-05] MEDS: Docusate 100mg cap ORAL SCH ×2 (10:04→18:24)
[2017-03-05] MEDS: Heparin 5000 units/ml inj SUBQ SCH ×2 (10:06→21:18)
[2017-03-05 10:41] LABS: PATH BLOOD SMEAR/OMC SENT TO PATHOLOGIST; RETICULOCYTE COUNT 0.7 % (0.0-2.0)
[2017-03-05 12:15] VITALS: BP 114/64
[2017-03-05 12:25] LABS: OTHERS PATHOLOGIST COMMENT
--- NOTE | 2017-03-05 14:59 | Pulmonology Progress Note ---
Assessment/Plan Problems: (1) Sepsis (2) Spina bifida (3) Suprapubic catheter (4) Paraplegia Assessment/Plan wbc decreasing continue abx check cultures IV venofer Subjective ROS Limited/Unobtainable: Yes Constitutional: Reports: no symptoms HEENT: Repors: no symptoms Respiratory: Reports: no symptoms Allergies: Coded Allergies: PENICILLIN G (Verified Allergy, Unknown, 10/11/16) Objective Last 24 Hour Vital Signs Date Time Temp Pulse Resp B/P Pulse Ox O2 Delivery O2 Flow Rate FiO2 03/05/17 12:15 97.6 85 20 114/64 97 Nasal Cannula 2.0 03/05/17 08:35 97 Nasal Cannula 2.0 28 03/05/17 08:35 Nasal Cannula 2.0 28 03/05/17 08:32 95 20 Nasal Cannula 2.0 28 03/05/17 04:00 98.1 107 20 103/56 98 Nasal Cannula 2.0 03/05/17 00:00 98.4 95 20 114/64 96 Nasal Cannula 2.0 03/04/17 20:00 97.7 94 20 107/59 96 Nasal Cannula 2.0 03/04/17 19:25 98 03/04/17 16:00 95 03/04/17 15:32 97.5 98 22 104/71 95 Nasal Cannula 2.0 Intake and Output 03/04/17 03/05/17 19:00 07:00 Intake Total 325.000 ml Output Total 1000 ml 375 ml Balance -1000 ml -50.000 ml IV Total 325.000 ml Output Urine Total 1000 ml 375 ml General Appearance: WD/WN HEENT: normocephalic, atraumatic Respiratory/Chest: chest wall non-tender, lungs clear Breasts: no masses Cardiovascular: normal peripheral pulses Genitourinary: normal external genitalia Extremities: no clubbing Skin: no ulcers Neurologic/Psychiatric: no motor/sensory deficits, alert Microbiology Date/Time Source Procedure Growth Status 03/04/17 06:00 Urine,Clean Catch Urine Culture - Preliminary Resulted Laboratory Tests 03/04/17 18:50: Urine Color Pale yellow, Urine Appearance Clear, Urine pH 7, Urine Specific [place] 1.005, Urine Protein 2+H, Urine Glucose (UA) Negative, Urine Ketones Negative, Urine Occult Blood 4+H, Urine Nitrite PositiveH, Urine Bilirubin Negative, Urine Urobilinogen Normal, Urine Leukocyte Esterase 3+H, Urine RBC 5- 10H, Urine WBC 5-10H, Urine Squamous Epithelial Cells Few, Urine Bacteria Few 03/05/17 06:40: White Blood Count 12.8H, Red Blood Count 4.30, Hemoglobin 9.8L, Hematocrit 32.5L , Mean Corpuscular Volume 76L, Mean Corpuscular Hemoglobin 22.9L, Mean Corpuscular Hemoglobin Concent 30.3L, Red Cell Distribution Width 17.3H, Platelet Count 333, Mean Platelet Volume 6.0L, Neutrophils (%) (Auto) , Lymphocytes (%) (Auto) , Monocytes (%) (Auto) , Eosinophils (%) (Auto) , Basophils (%) (Auto) , Differential Total Cells Counted 100, Neutrophils % ( Manual) 82H, Lymphocytes % (Manual) 13L, Monocytes % (Manual) 2, Eosinophils % ( Manual) 2, Basophils % (Manual) 1, Band Neutrophils 0, Other Cell Type Pathologist comment, Platelet Estimate Adequate, Platelet Morphology Normal, Hypochromasia 1+, Anisocytosis 1+, Microcytosis 1+, Stomatocytes Occasional, Erythrocyte Sedimentation Rate 37H, Reticulocyte Count 0.7, Prothrombin Time 10.3, Prothromb Time International Ratio 1.0, Activated Partial Thromboplast Time 36H, Sodium Level 137, Potassium Level 3.8, Chloride Level 99, Carbon Dioxide Level 34H, Anion Gap 4L, Blood Urea Nitrogen 10, Creatinine 0.3L, Estimat Glomerular Filtration Rate > 60, Glucose Level 131H, Calcium Level 8.7, Iron Level 17L, Total Iron Binding Capacity 182L, Percent Iron Saturation 9L, Unsaturated Iron Binding 165, Total Bilirubin < 0.2, Aspartate Amino Transf (AST /SGOT) 7, Alanine Aminotransferase (ALT/SGPT) 5, Alkaline Phosphatase 105H, Lactate Dehydrogenase 127L, Total Protein 7.0, Albumin 2.7L, Globulin 4.3, Albumin/Globulin Ratio 0.6L, Carcinoembryonic Antigen 1.4, Vitamin B12 Level 695 , Folate [Pending] 03/05/17 09:00: Vancomycin Level Trough 8.9 Current Medications Medications (Trade) Dose Ordered Sig/Sandeep Route PRN Reason Start Time Stop Time Status Last Admin Dose Admin Acetaminophen (Tylenol) 650 mg Q4H PRN ORAL fever>100.5 03/04/17 20:00 04/03/17 19:59 Albuterol/ Ipratropium (DuoNeb 0.5-3(2.5)mg/3ml) 3 ml Q4H PRN HHN Shortness of Breath 03/04/17 20:00 03/09/17 19:59 Docusate Sodium (Colace) 100 mg TWICE A DAY ORAL 03/05/17 09:00 04/04/17 08:59 03/05/17 10:04 Ertapenem 1 gm/ Sodium Chloride 50 ml @ 100 mls/hr Q24H IVPB 03/05/17 06:00 03/10/17 05:59 03/05/17 05:30 Heparin Sodium (Porcine) (Heparin 5000 units/ml) 5,000 units EVERY 12 HOURS SUBQ 03/04/17 21:00 04/03/17 20:59 03/05/17 10:06 Morphine Sulfate (Morphine Sulfate) 2 mg Q4H PRN IVP Moderate Pain (Pain Scale 4-6) 03/04/17 20:00 03/11/17 19:59 Nitroglycerin (Ntg) 0.4 mg Q5MIN PRN SL Prn Chest Pain 03/04/17 20:00 04/03/17 19:59 Non-Formulary Medication (Non-Formulary Med) 1 ea DAILY ORAL 03/05/17 09:00 04/04/17 08:59 UNV Ondansetron HCl (Zofran) 4 mg Q6H PRN IVP Nausea & Vomiting 03/04/17 20:00 04/03/17 19:59 Polyethylene Glycol (Miralax) 17 gm DAILYPRN PRN ORAL Constipation 03/04/17 20:00 04/03/17 19:59 Sennosides (Senokot) 8.6 mg BID ORAL 03/05/17 09:00 04/04/17 08:59 03/05/17 10:04 Temazepam (Restoril) 15 mg HSPRN PRN ORAL Insomnia 03/04/17 21:00 03/11/17 20:59 Vancomycin HCl/ Dextrose (Vancomycin/D5W) 275 ml @ 183.708 mls/hr Q12H IVPB 03/04/17 22:00 03/09/17 21:59 03/05/17 10:00 JARET HERNÁNDEZ Mar 05, 2017 14:59
[2017-03-05 15:46] VITALS: BP 115/58
[2017-03-05] MEDS ORDERED: NS 275ml ONE (16:27)
[2017-03-05] MEDS ORDERED: D5NS 1000ml IV ONE (16:27)
[2017-03-05] MEDS ORDERED: Iron Sucrose 100 MG in NS 55 ML IV ONE (17:00)
[2017-03-05 20:00] VITALS: BP 116/61
[2017-03-06] VITALS (7 sets, daily range): BP systolic 100–133; BP diastolic 46–68
[2017-03-06] MEDS: Docusate 100mg cap ORAL SCH (09:38)
[2017-03-06] MEDS: Heparin 5000 units/ml inj SUBQ SCH ×2 (09:40→20:11)
[2017-03-06] MEDS: Vancomycin 750 MG in D5W 275 ML IVPB SCH (10:02)
--- NOTE | 2017-03-06 14:07 | Infectious Diseases Prog Note ---
Assessment/Plan Assessment/Plan ID consult dictated # [id number] Subjective Allergies: Coded Allergies: PENICILLIN G (Verified Allergy, Unknown, 10/11/16) Objective Vital Signs Last 24 Hour Vital Signs Date Time Temp Pulse Resp B/P Pulse Ox O2 Delivery O2 Flow Rate FiO2 03/06/17 12:46 97.5 82 20 124/46 97 2.0 03/06/17 08:56 97.0 89 20 120/61 98 Room Air 03/06/17 07:40 Nasal Cannula 2.0 03/06/17 07:40 98 17 Nasal Cannula 2.0 03/06/17 07:40 97 Nasal Cannula 2.0 03/06/17 04:00 98.1 91 20 123/61 97 Nasal Cannula 2.0 03/06/17 00:00 98.2 83 20 100/51 99 Nasal Cannula 2.0 03/05/17 20:00 97.7 87 20 116/61 99 Nasal Cannula 2.0 03/05/17 19:56 99 20 Nasal Cannula 2.0 28 03/05/17 19:56 Nasal Cannula 2.0 28 03/05/17 19:56 97 Nasal Cannula 2.0 28 03/05/17 15:46 97.8 85 20 115/58 98 Nasal Cannula 2.0 Height (Feet): 5 Height (Inches): 1.00 Weight (Pounds): 125 Microbiology Date/Time Source Procedure Growth Status 03/04/17 05:15 Blood Blood Culture - Preliminary NO GROWTH AFTER 24 HOURS Resulted 03/04/17 05:00 Blood Blood Culture - Preliminary NO GROWTH AFTER 24 HOURS Resulted 03/04/17 06:00 Urine,Clean Catch Urine Culture - Preliminary Gram Negative Bacillus 1 Resulted 03/05/17 20:00 Sacral Lower Gram Stain - Final Resulted 03/05/17 20:00 Sacral Lower Wound Culture Pending Resulted Current Medications Medications (Trade) Dose Ordered Sig/Sandeep Route PRN Reason Start Time Stop Time Status Last Admin Dose Admin Acetaminophen (Tylenol) 650 mg Q4H PRN ORAL fever>100.5 03/04/17 20:00 04/03/17 19:59 Albuterol/ Ipratropium (DuoNeb 0.5-3(2.5)mg/3ml) 3 ml Q4H PRN HHN Shortness of Breath 03/04/17 20:00 03/09/17 19:59 Docusate Sodium (Colace) 100 mg TWICE A DAY ORAL 03/05/17 09:00 04/04/17 08:59 03/06/17 09:38 Ertapenem 1 gm/ Sodium Chloride 50 ml @ 100 mls/hr Q24H IVPB 03/05/17 06:00 03/10/17 05:59 03/06/17 05:10 Heparin Sodium (Porcine) (Heparin 5000 units/ml) 5,000 units EVERY 12 HOURS SUBQ 03/04/17 21:00 04/03/17 20:59 03/06/17 09:40 Morphine Sulfate (Morphine Sulfate) 2 mg Q4H PRN IVP Moderate Pain (Pain Scale 4-6) 03/04/17 20:00 03/11/17 19:59 Nitroglycerin (Ntg) 0.4 mg Q5MIN PRN SL Prn Chest Pain 03/04/17 20:00 04/03/17 19:59 Ondansetron HCl (Zofran) 4 mg Q6H PRN IVP Nausea & Vomiting 03/04/17 20:00 04/03/17 19:59 Polyethylene Glycol (Miralax) 17 gm DAILYPRN PRN ORAL Constipation 03/04/17 20:00 04/03/17 19:59 Sennosides (Senokot) 8.6 mg BID ORAL 03/05/17 09:00 04/04/17 08:59 03/06/17 09:38 Temazepam (Restoril) 15 mg HSPRN PRN ORAL Insomnia 03/04/17 21:00 03/11/17 20:59 Vancomycin HCl/ Dextrose (Vancomycin/D5W) 275 ml @ 183.708 mls/hr Q12H IVPB 03/04/17 22:00 03/09/17 21:59 03/06/17 10:02 DEREK SULLIVAN Mar 06, 2017 14:07
--- NOTE | 2017-03-06 16:07 | Pulmonology Progress Note ---
Assessment/Plan Problems: (1) Sepsis (2) Spina bifida (3) Suprapubic catheter (4) Paraplegia Assessment/Plan wbc decreasing continue abx check cultures IV venofer cultures still pending Subjective ROS Limited/Unobtainable: No Constitutional: Reports: no symptoms HEENT: Repors: no symptoms Respiratory: Reports: no symptoms Allergies: Coded Allergies: PENICILLIN G (Verified Allergy, Unknown, 10/11/16) Objective Last 24 Hour Vital Signs Date Time Temp Pulse Resp B/P Pulse Ox O2 Delivery O2 Flow Rate FiO2 03/06/17 16:02 97.9 98 20 119/57 97 Nasal Cannula 2.0 03/06/17 12:46 97.5 82 20 124/46 97 2.0 03/06/17 08:56 97.0 89 20 120/61 98 Room Air 03/06/17 07:40 Nasal Cannula 2.0 03/06/17 07:40 98 17 Nasal Cannula 2.0 03/06/17 07:40 97 Nasal Cannula 2.0 03/06/17 04:00 98.1 91 20 123/61 97 Nasal Cannula 2.0 03/06/17 00:00 98.2 83 20 100/51 99 Nasal Cannula 2.0 03/05/17 20:00 97.7 87 20 116/61 99 Nasal Cannula 2.0 03/05/17 19:56 99 20 Nasal Cannula 2.0 28 03/05/17 19:56 Nasal Cannula 2.0 28 03/05/17 19:56 97 Nasal Cannula 2.0 28 Intake and Output 03/05/17 03/06/17 19:00 07:00 Intake Total 1100 ml 275.000 ml Output Total 900 ml 450 ml Balance 200 ml -175.000 ml Intake Oral 1100 ml IV Total 275.000 ml Output Urine Total 900 ml 450 ml General Appearance: WD/WN, no acute distress HEENT: normocephalic, atraumatic Respiratory/Chest: chest wall non-tender, lungs clear Breasts: no masses Cardiovascular: normal rate Abdomen: normal bowel sounds, soft, non tender, no organomegaly Extremities: no cyanosis Neurologic/Psychiatric: 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/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 grossly normal, abnormal gait Lymphatic: no neck adenopathy Microbiology Date/Time Source Procedure Growth Status 03/04/17 05:15 Blood Blood Culture - Preliminary NO GROWTH AFTER 24 HOURS Resulted 03/04/17 05:00 Blood Blood Culture - Preliminary NO GROWTH AFTER 24 HOURS Resulted 03/04/17 06:00 Urine,Clean Catch Urine Culture - Preliminary Gram Negative Bacillus 1 Resulted 03/05/17 20:00 Sacral Lower Gram Stain - Final Resulted 03/05/17 20:00 Sacral Lower Wound Culture Pending Resulted Current Medications Medications (Trade) Dose Ordered Sig/Sandeep Route PRN Reason Start Time Stop Time Status Last Admin Dose Admin Acetaminophen (Tylenol) 650 mg Q4H PRN ORAL fever>100.5 03/04/17 20:00 04/03/17 19:59 Albuterol/ Ipratropium (DuoNeb 0.5-3(2.5)mg/3ml) 3 ml Q4H PRN HHN Shortness of Breath 03/04/17 20:00 03/09/17 19:59 Docusate Sodium (Colace) 100 mg TWICE A DAY ORAL 03/05/17 09:00 04/04/17 08:59 03/06/17 09:38 Ertapenem/Sodium Chloride (INVanz/Sodium Chloride) 50 ml @ 100 mls/hr Q24H IVPB 03/05/17 06:00 03/10/17 05:59 03/06/17 05:10 Heparin Sodium (Porcine) (Heparin 5000 units/ml) 5,000 units EVERY 12 HOURS SUBQ 03/04/17 21:00 04/03/17 20:59 03/06/17 09:40 Morphine Sulfate (Morphine Sulfate) 2 mg Q4H PRN IVP Moderate Pain (Pain Scale 4-6) 03/04/17 20:00 03/11/17 19:59 Nitroglycerin (Ntg) 0.4 mg Q5MIN PRN SL Prn Chest Pain 03/04/17 20:00 04/03/17 19:59 Ondansetron HCl (Zofran) 4 mg Q6H PRN IVP Nausea & Vomiting 03/04/17 20:00 04/03/17 19:59 Polyethylene Glycol (Miralax) 17 gm DAILYPRN PRN ORAL Constipation 03/04/17 20:00 04/03/17 19:59 Sennosides (Senokot) 8.6 mg BID ORAL 03/05/17 09:00 04/04/17 08:59 03/06/17 09:38 Temazepam (Restoril) 15 mg HSPRN PRN ORAL Insomnia 03/04/17 21:00 03/11/17 20:59 JARET HERNÁNDEZ Mar 06, 2017 16:07
[2017-03-06] MEDS: Docusate 100mg/10ml Liq NG SCH (17:22)
--- NOTE | 2017-03-06 23:13 | Wound Care Consultation ---
Wound Assessment Wound Assessment #1: Wound Number: #1 Wound Present on Admission: Yes New Wound: No Status Change of Wound: No Wound Location Body Site Modif: left Wound Location Body Site: sacral Wound Type: pressure ulcer Alyssa Test: Does not Alysas Pressure Ulcer Stage: IV/unstageable Wound Thickness: Full Thickness Wound Length: 6.5 Wound Width: 9.5 Wound Depth: utd Percent of Wound Leigh/Red: 20 Percent of Wound Bed Yellow/Wh: 80 Wound Drainage Description: Serosanguineous Wound Drainage Amount: Copious Wound Drainage Odor: None/Absent Tissue Surrounding Wound: Macerated Wound General Appearance: Draining, Unapproximated Wound Assessment #2: Wound Number: #2 Wound Present on Admission: Yes New Wound: No Status Change of Wound: No Wound Location Body Site Modif: right Wound Location Body Site: buttocks Wound Type: pressure ulcer Alyssa Test: Does not Alyssa Pressure Ulcer Stage: IV/unstageable Wound Thickness: Full Thickness Wound Length: 5.5 Wound Width: 4.0 Wound Depth: utd Percent of Wound Leigh/Red: 80 Percent of Wound Purple/Maroon: 20 Wound Drainage Description: Serosanguineous Wound Drainage Amount: Moderate Wound Drainage Odor: None/Absent Tissue Surrounding Wound: purple/maroon Wound General Appearance: Draining Wound Comment #1 Left sacral unstaeable pressure ulcer #2 Right buttocks unstageable pressure ulcer Recommendation -Left sacral unstaeable pressure ulcer and Right buttock unstageable pressure ulcer Cleanse with saline, pat dry, apply Triad cream to periwound area, apply Therahoney to wound bed, apply calcium alginate, cover with bordered gauze daily and PRN soiled/dislodged. -Low air loss mattress -Optimize nutrition -Keep clean and dry -Turn and reposition -Offload both heels -Heel protector on both heels -Assess and f/u accordingly for any changes YANN OWEN RN Mar 06, 2017 23:13
[2017-03-07 00:01] VITALS: BP 112/60
--- NOTE | 2017-03-07 01:15 | Consultation ---
DATE OF CONSULTATION: 03/06/2017 INFECTIOUS DISEASE CONSULTATION This consult is for coverage of Dr. Buck. PRIMARY ATTENDING PHYSICIAN: Chyna Pryor M.D. REASON FOR CONSULTATION: UTI, sepsis. HISTORY OF PRESENT ILLNESS: This is a 46-year-old female with past history of paraplegia and suprapubic catheter, admitted on 03/04/2017 because of weakness and fever. The patient had no fever in the hospital, but had significant leukocytosis and tachycardia at the time of admission. PAST MEDICAL HISTORY: Significant for spina bifida, paraplegia, the patient is wheelchair bound, had history of hydrocephalus, status post OVEN TENDER shunt, status post suprapubic catheter. ALLERGIES: Allergic to penicillin. MEDICATIONS: Getting Colace, Senokot, ertapenem, vancomycin, heparin, temazepam, Tylenol, DuoNeb, morphine, nitroglycerin, Zofran, and MiraLax. SOCIAL HISTORY: Lives at home. No history of alcohol, drug abuse, or smoking. REVIEW OF SYSTEMS: The patient currently has no pain, fever, or any other complaint. PHYSICAL EXAMINATION: VITAL SIGNS: Temperature is 97.5 degrees, pulse of 82, and blood pressure 124/46. GENERAL: The patient is in no acute distress. HEAD AND NECK: [place] conjunctivae. Has some mild nystagmus that is horizontal. HEART: S1 and S2, regular. LUNGS: Clear. ABDOMEN: Obese, soft, and nontender. There is a suprapubic catheter. EXTREMITIES: Has no edema. SKIN: Has some erythema in the buttock area. LABORATORY AND DIAGNOSTIC DATA: WBC yesterday was 12.8, coming down from 21,000 at the time of admission, hemoglobin 9.8, hematocrit 32.5; and platelets are 233,000. Sodium 137, potassium 3.8, chloride 99, bicarbonate 34, BUN 10, creatinine 0.3, and glucose 131. Albumin 2.7. Urine culture Gram-negative rods. Blood cultures x2 so far negative. Chest x-ray was stable compared to previous admission. IMPRESSION: Sepsis, likely due to urinary tract infection. Urine culture grew Gram negative. The patient is allergic to penicillin, has spina bifida, is paraplegic, has suprapubic catheter, and has anemia. RECOMMENDATIONS: We will continue with ertapenem. We will discontinue vancomycin. We will follow up the culture. At the end of my exam, I thank, Dr. Pryor, for involving me in the care of this patient. Anthony Collins M.D. DR: Neema JOB#: [id number] CC:
[2017-03-07 04:00] VITALS: BP 107/58
[2017-03-07 08:36] VITALS: BP 110/61
[2017-03-07] MEDS: Docusate 100mg/10ml Liq NG SCH ×2 (09:53→17:31)
[2017-03-07] MEDS: Heparin 5000 units/ml inj SUBQ SCH ×2 (09:55→20:08)
[2017-03-07 11:56] VITALS: BP 103/67
--- NOTE | 2017-03-07 13:48 | Infectious Diseases Prog Note ---
Assessment/Plan Assessment/Plan Assessment: sepsis, resolving Proteus UTI, complicated Left sacral unstaeable pressure ulcer and Right buttock unstageable pressure ulcer Leukocytosis, improving (last labs 03/05/17) afebrile negative blood cx, 03/04/17 h/o PCN G allergy, tolerating carbapenem spina bifida w/ paraplegic suprapubic catheter DIGITAL OPERATIONS ANALYST shunt anemia Plan: --continue ertapanem D#2 (03/06 s/p IV vancomycin D#2) --further antibiotics recs pending results of sacral wound cx --s/p wound care consult, receiving topical care --monitor CBC --monitor mena output Subjective ROS Limited/Unobtainable: Yes Allergies: Coded Allergies: PENICILLIN G (Verified Allergy, Unknown, 10/11/16) Objective Vital Signs Last 24 Hour Vital Signs Date Time Temp Pulse Resp B/P Pulse Ox O2 Delivery O2 Flow Rate FiO2 03/07/17 11:56 96.9 78 19 103/67 100 Nasal Cannula 2.0 03/07/17 08:36 97.3 77 19 110/61 100 Nasal Cannula 2.0 03/07/17 07:53 Nasal Cannula 2.0 28 03/07/17 07:53 99 Nasal Cannula 2.0 28 03/07/17 07:53 76 20 Nasal Cannula 2.0 28 03/07/17 04:00 97.7 83 18 107/58 99 Nasal Cannula 2.0 03/07/17 00:01 98.2 85 18 112/60 97 Nasal Cannula 2.0 03/06/17 20:00 98.2 94 18 133/68 91 Nasal Cannula 2.0 03/06/17 19:15 85 17 Nasal Cannula 2.0 03/06/17 19:10 Nasal Cannula 2.0 03/06/17 19:10 96 Nasal Cannula 2.0 03/06/17 16:02 97.9 98 20 119/57 97 Nasal Cannula 2.0 Height (Feet): 5 Height (Inches): 1.00 Weight (Pounds): 125 Objective GENERAL: The patient is in no acute distress. HEAD AND NECK: [place] conjunctivae. Has some mild nystagmus that is horizontal. HEART: S1 and S2, regular. LUNGS: Clear. ABDOMEN: Obese, soft, and nontender. There is a suprapubic catheter. EXTREMITIES: Has no edema. SKIN: Has some erythema in the buttock area. Microbiology Date/Time Source Procedure Growth Status 03/05/17 20:00 Sacral Lower Gram Stain - Final Resulted 03/05/17 20:00 Wound Culture - Preliminary Gram Negative Bacillus 1 Resulted Current Medications Medications (Trade) Dose Ordered Sig/Sandeep Route PRN Reason Start Time Stop Time Status Last Admin Dose Admin Acetaminophen (Tylenol) 650 mg Q4H PRN ORAL fever>100.5 03/04/17 20:00 04/03/17 19:59 Albuterol/ Ipratropium (DuoNeb 0.5-3(2.5)mg/3ml) 3 ml Q4H PRN HHN Shortness of Breath 03/04/17 20:00 03/09/17 19:59 Docusate Sodium (Colace) 100 mg TWICE A DAY NG 03/06/17 18:00 04/05/17 17:59 03/07/17 09:53 Ertapenem/Sodium Chloride (INVanz/Sodium Chloride) 50 ml @ 100 mls/hr Q24H IVPB 03/05/17 06:00 03/10/17 05:59 03/07/17 05:41 Heparin Sodium (Porcine) (Heparin 5000 units/ml) 5,000 units EVERY 12 HOURS SUBQ 03/04/17 21:00 04/03/17 20:59 03/07/17 09:55 Morphine Sulfate (Morphine Sulfate) 2 mg Q4H PRN IVP Moderate Pain (Pain Scale 4-6) 03/04/17 20:00 03/11/17 19:59 Nitroglycerin (Ntg) 0.4 mg Q5MIN PRN SL Prn Chest Pain 03/04/17 20:00 04/03/17 19:59 Ondansetron HCl (Zofran) 4 mg Q6H PRN IVP Nausea & Vomiting 03/04/17 20:00 04/03/17 19:59 Polyethylene Glycol (Miralax) 17 gm DAILYPRN PRN ORAL Constipation 03/04/17 20:00 04/03/17 19:59 Sennosides (Senokot) 8.6 mg BID ORAL 03/05/17 09:00 04/04/17 08:59 03/07/17 09:53 Temazepam (Restoril) 15 mg HSPRN PRN ORAL Insomnia 03/04/17 21:00 03/11/17 20:59 Zacarias Ngo M.D. Mar 07, 2017 13:48
[2017-03-07 16:03] VITALS: BP 115/67
--- NOTE | 2017-03-07 17:19 | Pulmonology Progress Note ---
Assessment/Plan Problems: (1) Sepsis (2) Spina bifida (3) Suprapubic catheter (4) Paraplegia Assessment/Plan wbc decreasing continue abx check cultures IV venofer repeat lasb in am probably dc in am cultures still pending Subjective Allergies: Coded Allergies: PENICILLIN G (Verified Allergy, Unknown, 10/11/16) Objective Last 24 Hour Vital Signs Date Time Temp Pulse Resp B/P Pulse Ox O2 Delivery O2 Flow Rate FiO2 03/07/17 16:03 97.3 82 19 115/67 100 Room Air 03/07/17 11:56 96.9 78 19 103/67 100 Nasal Cannula 2.0 03/07/17 08:36 97.3 77 19 110/61 100 Nasal Cannula 2.0 03/07/17 07:53 Nasal Cannula 2.0 28 03/07/17 07:53 99 Nasal Cannula 2.0 28 03/07/17 07:53 76 20 Nasal Cannula 2.0 28 03/07/17 04:00 97.7 83 18 107/58 99 Nasal Cannula 2.0 03/07/17 00:01 98.2 85 18 112/60 97 Nasal Cannula 2.0 03/06/17 20:00 98.2 94 18 133/68 91 Nasal Cannula 2.0 03/06/17 19:15 85 17 Nasal Cannula 2.0 03/06/17 19:10 Nasal Cannula 2.0 03/06/17 19:10 96 Nasal Cannula 2.0 Intake and Output 03/06/17 03/07/17 19:00 07:00 Intake Total 395.000 ml Output Total 600 ml 1160 ml Balance -205.000 ml -1160 ml Intake Oral 120 ml IV Total 275.000 ml Output Urine Total 600 ml 1160 ml General Appearance: WD/WN HEENT: normocephalic, atraumatic Respiratory/Chest: chest wall non-tender, lungs clear Cardiovascular: normal peripheral pulses, normal rate Abdomen: normal bowel sounds, soft, non tender Extremities: no cyanosis, no clubbing Neurologic/Psychiatric: no motor/sensory deficits, responsive Lymphatic: no neck adenopathy Microbiology Date/Time Source Procedure Growth Status 03/05/17 20:00 Sacral Lower Gram Stain - Final Resulted 03/05/17 20:00 Wound Culture - Preliminary Gram Negative Bacillus 1 Resulted Current Medications Medications (Trade) Dose Ordered Sig/Sandeep Route PRN Reason Start Time Stop Time Status Last Admin Dose Admin Acetaminophen (Tylenol) 650 mg Q4H PRN ORAL fever>100.5 03/04/17 20:00 04/03/17 19:59 Albuterol/ Ipratropium (DuoNeb 0.5-3(2.5)mg/3ml) 3 ml Q4H PRN HHN Shortness of Breath 03/04/17 20:00 03/09/17 19:59 Docusate Sodium (Colace) 100 mg TWICE A DAY NG 03/06/17 18:00 04/05/17 17:59 03/07/17 09:53 Ertapenem/Sodium Chloride (INVanz/Sodium Chloride) 50 ml @ 100 mls/hr Q24H IVPB 03/05/17 06:00 03/10/17 05:59 03/07/17 05:41 Heparin Sodium (Porcine) (Heparin 5000 units/ml) 5,000 units EVERY 12 HOURS SUBQ 03/04/17 21:00 04/03/17 20:59 03/07/17 09:55 Morphine Sulfate (Morphine Sulfate) 2 mg Q4H PRN IVP Moderate Pain (Pain Scale 4-6) 03/04/17 20:00 03/11/17 19:59 Nitroglycerin (Ntg) 0.4 mg Q5MIN PRN SL Prn Chest Pain 03/04/17 20:00 04/03/17 19:59 Ondansetron HCl (Zofran) 4 mg Q6H PRN IVP Nausea & Vomiting 03/04/17 20:00 04/03/17 19:59 Polyethylene Glycol (Miralax) 17 gm DAILYPRN PRN ORAL Constipation 03/04/17 20:00 04/03/17 19:59 Sennosides (Senokot) 8.6 mg BID ORAL 03/05/17 09:00 04/04/17 08:59 03/07/17 09:53 Temazepam (Restoril) 15 mg HSPRN PRN ORAL Insomnia 03/04/17 21:00 03/11/17 20:59 JARET HERNÁNDEZ Mar 07, 2017 17:19
[2017-03-07 20:00] VITALS: BP 112/62
[2017-03-08] VITALS: BP 140/76
[2017-03-08 04:00] VITALS: BP 125/71
[2017-03-08 07:27] LABS: BASOPHILS % (AUTO) 0.7 % (0.0-2.0); LYMPHOCYTES % (AUTO) 16.8 % (20.0-45.0); MEAN CORPUSCULAR HEMOGLOBIN 22.4 PG (27.0-31.0); MEAN CORPUSCULAR HGB CONC 29.9 G/DL (32.0-36.0); MEAN CORPUSCULAR VOLUME 75 FL (80-99); MEAN PLATELET VOLUME 5.3 FL (6.5-10.1); MONOCYTES % (AUTO) 4.4 % (1.0-10.0); NEUTROPHILS % (AUTO) 75.2 % (45.0-75.0); PLATELET COUNT 345 K/UL (150-450); RED BLOOD COUNT 4.18 M/UL (4.20-5.40); RED CELL DISTRIBUTION WIDTH 16.8 % (11.6-14.8)
[2017-03-08 07:35] LABS: ALANINE AMINOTRANSFERASE 5 U/L (3-33); ALBUMIN/GLOBULIN RATIO 0.5 (1.0-2.7); ASPARTATE AMINO TRANSFERASE 5 U/L (5-40); CALCIUM 8.4 mg/dL (8.6-10.2); CHLORIDE 92 mEQ/L (98-107); CRP QUANT 5.7 mg/dL (< 0.5); GLOMERULAR FILTRATION RATE > 60 mL/min (>60); HEMOLYSIS 0; MAGNESIUM 1.8 mg/dL (1.7-2.5); PHOSPHORUS 2.4 mg/dL (2.5-4.8); POTASSIUM 3.7 mEQ/L (3.4-4.9); SODIUM 138 mEQ/L (135-145); TOTAL PROTEIN 6.7 g/dL (6.6-8.7)
[2017-03-08 07:49] LABS: ANION GAP 4 (5-15)
[2017-03-08 07:55] LABS: CARBON DIOXIDE 42 mEQ/L (20-30); CREATININE 0.2 mg/dL (0.5-0.9)
[2017-03-08 08:00] VITALS: BP 122/71
[2017-03-08] MEDS: Docusate 100mg/10ml Liq NG SCH ×2 (09:46→18:36)
[2017-03-08] MEDS: Heparin 5000 units/ml inj SUBQ SCH ×2 (09:48→21:27)
[2017-03-08 11:55] VITALS: BP 121/51
[2017-03-08 16:00] VITALS: BP 140/75
--- NOTE | 2017-03-08 18:34 | Infectious Diseases Prog Note ---
Assessment/Plan Assessment/Plan Assessment: 46 y/o with spina bifida, paraplegia, h/o chronic deep sacral pressure ulcer, now with good clinical response to D#3 of ertapenem for treatment of complicated Proteus UTI with h/o SP cath. 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 sepsis, resolving Proteus UTI, complicated Left sacral unstageable pressure ulcer and Right buttock unstageable pressure ulcer; prior CT in January2017 demonstrated bony erosive changes. superficial culture growing carbapenem resistant (amikacin and tmp/smx susceptible) ACB,so leukocytosis resolved despite not on coverage for this Leukocytosis, normalized afebrile negative blood cx, 03/04/17 h/o PCN G allergy, tolerating carbapenem spina bifida w/ paraplegic suprapubic catheter NUCLEAR INSTRUCTOR shunt; h/o fractured distal tip anemia Plan: --continue ertapanem D#3 of 10. Can continue at SNF from ID perspective. (03/06 s/p IV vancomycin D#2) --s/p wound care consult, receiving topical care. If wound fails to show any improvement with chronic wound care, may need outpatient repeat surgical evaluation with bone biopsy for histopath and culture. --monitor CBC --monitor urine cath output Subjective ROS Limited/Unobtainable: Yes Allergies: Coded Allergies: PENICILLIN G (Verified Allergy, Unknown, 10/11/16) Objective Vital Signs Last 24 Hour Vital Signs Date Time Temp Pulse Resp B/P Pulse Ox O2 Delivery O2 Flow Rate FiO2 03/08/17 16:00 97.5 78 18 140/75 93 Room Air 03/08/17 11:55 97.0 77 17 121/51 95 Room Air 03/08/17 10:12 75 18 Nasal Cannula 2.0 03/08/17 10:11 99 Nasal Cannula 2.0 03/08/17 10:10 Nasal Cannula 2.0 03/08/17 08:00 97.7 76 18 122/71 100 Nasal Cannula 2.0 03/08/17 04:00 97.0 80 20 125/71 98 Nasal Cannula 03/08/17 00:00 97.7 89 18 140/76 93 Nasal Cannula 3.5 03/07/17 21:07 Nasal Cannula 2.0 28 03/07/17 21:07 98 Nasal Cannula 2.0 28 03/07/17 21:07 82 20 Nasal Cannula 2.0 28 03/07/17 20:00 97.2 83 18 112/62 97 Nasal Cannula 3.5 Height (Feet): 5 Height (Inches): 1.00 Weight (Pounds): 125 Objective GENERAL: The patient is in no acute distress. HEAD AND NECK: [place] conjunctivae. Has some mild nystagmus that is horizontal. HEART: S1 and S2, regular. LUNGS: Clear. ABDOMEN: Obese, soft, and nontender. There is a suprapubic catheter. EXTREMITIES: Has no edema. SKIN: Has some erythema in the buttock area. Microbiology Date/Time Source Procedure Growth Status 03/05/17 20:00 Sacral Lower Gram Stain - Final Resulted 03/05/17 20:00 Wound Culture - Preliminary Acinetobacter Baumannii Complx Resulted Prior Radiology: Patient : ITZEL KEENE Referring Physician: ERROL GROVER D.O. ID Number: [id number] Service Date: 02/06/17 : 1970 Report Date: 02/06/17 Gender: F Accession No.: [id number] Location: [facility] Procedure: CT Abdomen Pelvis w/Contrast Indication: Abdominal pain Technique: Continuous helical transaxial imaging of the abdomen and pelvis was obtained from the lung bases to the pubic symphysis during intravenous contrast administration. Coronal 2-D reformats were also obtained. Study obtained in a Siemens sensation [address] Total Dose length Product (DLP): [address] Dose Index Volume (CTDIvol): 20 mGy Comparison: None Findings: The heart is moderately enlarged. There is some posterior basilar atelectasis noted. Trace pericardial fluid demonstrated. Spinal rods traversing the entirety of the lumbar spine and visualized portion of the lower thoracic spine. The liver and spleen are prominent. The left kidney is small. There is a ureteral stent present which appears to be in good position. Suprapubic catheter and balloon is noted in the urinary bladder. Multiple small stones are present within the calyces of the left kidney. There is no hydronephrosis definitely seen. Severe deformities of the pelvis which appears hypoplastic noted. Most of the left ilium is absent. Gross spinal dysraphism noted in the posterior lower aspect of the lumbar and sacral spine. Both hips are dislocated. Prominent tumor is also noted posterior to the sacrum tracking to the sacrum and ilium, which appear abnormally sclerotic, suggestive of chronic osteomyelitis.. There is moderate to severe scoliosis convex to the left. NUCLEAR INSTRUCTOR shunt partially visualized in the right subcutaneous fat in the anterior abdominal and chest wall. Note that the is fractured and by 2 cm within the subcutaneous fat. The noncontiguous distal part of the NUCLEAR INSTRUCTOR shunt is in the abdomen. There is no ascites. There is moderate stool in the colon. Impression: NUCLEAR INSTRUCTOR shunt malfunction noted. Noncontiguous, fractured subcutaneous portion of the catheter noted. No acute intra-abdominal findings demonstrated. No evidence of intra-abdominal abscess or bowel obstruction. Chronic, large decubitus ulcer in the sacral region with the bony changes suggestive of chronic osteomyelitis. Deformity, hypoplastic pelvis, chronic dislocation of both hips, scoliosis. These are stigmata of nonspecific neurodegenerative disease. Hepatosplenomegaly Cardiomegaly. Scoliosis with spinal stabilization alysha Suprapubic catheter in good position Laboratory Tests Test 03/08/17 06:40 White Blood Count 10.0 K/UL (4.8-10.8) Red Blood Count 4.18 M/UL (4.20-5.40) L Hemoglobin 9.3 G/DL (12.0-16.0) L Hematocrit 31.2 % (37.0-47.0) L Mean Corpuscular Volume 75 FL (80-99) L Mean Corpuscular Hemoglobin 22.4 PG (27.0-31.0) L Mean Corpuscular Hemoglobin Concent 29.9 G/DL (32.0-36.0) L Red Cell Distribution Width 16.8 % (11.6-14.8) H Platelet Count 345 K/UL (150-450) Mean Platelet Volume 5.3 FL (6.5-10.1) L Neutrophils (%) (Auto) 75.2 % (45.0-75.0) H Lymphocytes (%) (Auto) 16.8 % (20.0-45.0) L Monocytes (%) (Auto) 4.4 % (1.0-10.0) Eosinophils (%) (Auto) 3.0 % (0.0-3.0) Basophils (%) (Auto) 0.7 % (0.0-2.0) Erythrocyte Sedimentation Rate 98 MM/HR (0-20) H Sodium Level 138 mEQ/L (135-145) Potassium Level 3.7 mEQ/L (3.4-4.9) Chloride Level 92 mEQ/L (98-107) L Carbon Dioxide Level 42 mEQ/L (20-30) *H Anion Gap 4 (5-15) L Blood Urea Nitrogen 8 mg/dL (7-23) Creatinine 0.2 mg/dL (0.5-0.9) L Estimat Glomerular Filtration Rate > 60 mL/min (>60) Glucose Level 105 mg/dL (74-106) Calcium Level 8.4 mg/dL (8.6-10.2) L Phosphorus Level 2.4 mg/dL (2.5-4.8) L Magnesium Level 1.8 mg/dL (1.7-2.5) Total Bilirubin < 0.2 mg/dL (0.0-1.2) Aspartate Amino Transf (AST/SGOT) 5 U/L (5-40) Alanine Aminotransferase (ALT/SGPT) 5 U/L (3-33) Alkaline Phosphatase 89 U/L (35-104) C-Reactive Protein, Quantitative 5.7 mg/dL (< 0.5) H Total Protein 6.7 g/dL (6.6-8.7) Albumin 2.5 g/dL (3.5-5.2) L Globulin 4.2 g/dL Albumin/Globulin Ratio 0.5 (1.0-2.7) L Current Medications Medications (Trade) Dose Ordered Sig/Sandeep Route PRN Reason Start Time Stop Time Status Last Admin Dose Admin Acetaminophen (Tylenol) 650 mg Q4H PRN ORAL fever>100.5 03/04/17 20:00 04/03/17 19:59 Albuterol/ Ipratropium (DuoNeb 0.5-3(2.5)mg/3ml) 3 ml Q4H PRN HHN Shortness of Breath 03/04/17 20:00 03/09/17 19:59 Docusate Sodium (Colace) 100 mg TWICE A DAY NG 03/06/17 18:00 04/05/17 17:59 03/08/17 09:46 Ertapenem/Sodium Chloride (INVanz/Sodium Chloride) 50 ml @ 100 mls/hr Q24H IVPB 03/05/17 06:00 03/10/17 05:59 03/08/17 05:15 Heparin Sodium (Porcine) (Heparin 5000 units/ml) 5,000 units EVERY 12 HOURS SUBQ 03/04/17 21:00 04/03/17 20:59 03/08/17 09:48 Morphine Sulfate (Morphine Sulfate) 2 mg Q4H PRN IVP Moderate Pain (Pain Scale 4-6) 03/04/17 20:00 03/11/17 19:59 Nitroglycerin (Ntg) 0.4 mg Q5MIN PRN SL Prn Chest Pain 03/04/17 20:00 04/03/17 19:59 Ondansetron HCl (Zofran) 4 mg Q6H PRN IVP Nausea & Vomiting 03/04/17 20:00 04/03/17 19:59 Polyethylene Glycol (Miralax) 17 gm DAILYPRN PRN ORAL Constipation 03/04/17 20:00 04/03/17 19:59 03/07/17 17:31 Sennosides (Senokot) 8.6 mg BID ORAL 03/05/17 09:00 04/04/17 08:59 03/08/17 09:46 Temazepam (Restoril) 15 mg HSPRN PRN ORAL Insomnia 03/04/17 21:00 03/11/17 20:59 Zacarias Ngo M.D. Mar 08, 2017 18:34
[2017-03-08 20:00] VITALS: BP 152/83
--- NOTE | 2017-03-08 21:50 | Pulmonology Progress Note ---
Assessment/Plan Problems: (1) Sepsis (2) Spina bifida (3) Suprapubic catheter (4) Paraplegia Assessment/Plan wbc decreasing continue abx, Ertapenem for total of 10 days check cultures IV venofer repeat lasb in am probably dc in am dc home in am to finish abx Subjective ROS Limited/Unobtainable: No Constitutional: Reports: no symptoms HEENT: Repors: no symptoms Respiratory: Reports: no symptoms Allergies: Coded Allergies: PENICILLIN G (Verified Allergy, Unknown, 10/11/16) Objective Last 24 Hour Vital Signs Date Time Temp Pulse Resp B/P Pulse Ox O2 Delivery O2 Flow Rate FiO2 03/08/17 20:00 98.2 85 19 152/83 94 Nasal Cannula 03/08/17 16:00 97.5 78 18 140/75 93 Room Air 03/08/17 11:55 97.0 77 17 121/51 95 Room Air 03/08/17 10:12 75 18 Nasal Cannula 2.0 03/08/17 10:11 99 Nasal Cannula 2.0 03/08/17 10:10 Nasal Cannula 2.0 03/08/17 08:00 97.7 76 18 122/71 100 Nasal Cannula 2.0 03/08/17 04:00 97.0 80 20 125/71 98 Nasal Cannula 03/08/17 00:00 97.7 89 18 140/76 93 Nasal Cannula 3.5 Intake and Output 03/07/17 03/08/17 19:00 07:00 Intake Total 240 ml Output Total 420 ml 650 ml Balance -180 ml -650 ml Intake Oral 240 ml Output Urine Total 420 ml 650 ml General Appearance: WD/WN HEENT: normocephalic, atraumatic Respiratory/Chest: chest wall non-tender, lungs clear Breasts: no masses Cardiovascular: normal peripheral pulses Abdomen: normal bowel sounds, soft, non tender Genitourinary: normal external genitalia Extremities: no cyanosis Laboratory Tests 03/08/17 06:40: White Blood Count 10.0, Red Blood Count 4.18L, Hemoglobin 9.3L, Hematocrit 31.2L , Mean Corpuscular Volume 75L, Mean Corpuscular Hemoglobin 22.4L, Mean Corpuscular Hemoglobin Concent 29.9L, Red Cell Distribution Width 16.8H, Platelet Count 345, Mean Platelet Volume 5.3L, Neutrophils (%) (Auto) 75.2H, Lymphocytes (%) (Auto) 16.8L, Monocytes (%) (Auto) 4.4, Eosinophils (%) (Auto) 3.0, Basophils (%) (Auto) 0.7, Erythrocyte Sedimentation Rate 98H, Sodium Level 138, Potassium Level 3.7, Chloride Level 92L, Carbon Dioxide Level 42*H, Anion Gap 4L, Blood Urea Nitrogen 8, Creatinine 0.2L, Estimat Glomerular Filtration Rate > 60, Glucose Level 105, Calcium Level 8.4L, Phosphorus Level 2.4L, Magnesium Level 1.8, Total Bilirubin < 0.2, Aspartate Amino Transf (AST/SGOT) 5 , Alanine Aminotransferase (ALT/SGPT) 5, Alkaline Phosphatase 89, C-Reactive Protein, Quantitative 5.7H, Total Protein 6.7, Albumin 2.5L, Globulin 4.2, Albumin/Globulin Ratio 0.5L Current Medications Medications (Trade) Dose Ordered Sig/Sandeep Route PRN Reason Start Time Stop Time Status Last Admin Dose Admin Acetaminophen (Tylenol) 650 mg Q4H PRN ORAL fever>100.5 03/04/17 20:00 04/03/17 19:59 Albuterol/ Ipratropium (DuoNeb 0.5-3(2.5)mg/3ml) 3 ml Q4H PRN HHN Shortness of Breath 03/04/17 20:00 03/09/17 19:59 Docusate Sodium (Colace) 100 mg TWICE A DAY NG 03/06/17 18:00 04/05/17 17:59 03/08/17 18:36 Ertapenem/Sodium Chloride (INVanz/Sodium Chloride) 50 ml @ 100 mls/hr Q24H IVPB 03/05/17 06:00 03/10/17 05:59 03/08/17 05:15 Heparin Sodium (Porcine) (Heparin 5000 units/ml) 5,000 units EVERY 12 HOURS SUBQ 03/04/17 21:00 04/03/17 20:59 03/08/17 21:27 Morphine Sulfate (Morphine Sulfate) 2 mg Q4H PRN IVP Moderate Pain (Pain Scale 4-6) 03/04/17 20:00 03/11/17 19:59 Nitroglycerin (Ntg) 0.4 mg Q5MIN PRN SL Prn Chest Pain 8/13/17 20:00 04/03/17 19:59 Ondansetron HCl (Zofran) 4 mg Q6H PRN IVP Nausea & Vomiting 03/04/17 20:00 04/03/17 19:59 Polyethylene Glycol (Miralax) 17 gm DAILYPRN PRN ORAL Constipation 03/04/17 20:00 04/03/17 19:59 03/07/17 17:31 Sennosides (Senokot) 8.6 mg BID ORAL 03/05/17 09:00 04/04/17 08:59 03/08/17 18:36 Temazepam (Restoril) 15 mg HSPRN PRN ORAL Insomnia 03/04/17 21:00 03/11/17 20:59 JARET HERNÁNDEZ Mar 08, 2017 21:50
[2017-03-09 00:05] VITALS: BP 147/88
[2017-03-09 04:14] VITALS: BP 121/56
--- NOTE | 2017-03-09 07:37 | Pulmonology Progress Note ---
Assessment/Plan Assessment/Plan ASSESSMENT sepsis complicated UTI with Proteus hx of recurrent UTI spina bifida paraplegia s/p catheter status anemia Lt sacral decub POA R buttock decub POA PLAN OF CARE MS floor abx ID follows urine cx + Proteus wound cx +ACB ,blood cx preliminary negative leucocytosis resoled CXR with Mild interstitial edema or pneumonitis may be present. However findings appear stable compared to last study. O2 HHN prn monitor HH , transfuse prn, stable small trend down today, goal to keep Hgb above 7 DVT prophylaxis PT/OT wound care as per wound nurse recommendations dc today after HH services arranged for IV abx, need Invanz for 7 more days as per ID recommendations case discussed and evaluated by supervising physician Subjective Allergies: Coded Allergies: PENICILLIN G (Verified Allergy, Unknown, 10/11/16) Subjective leukocytosis resolved, afebrile no signs of respiratory distress pulse oximetry stable on O2- 2L via NC Objective Last 24 Hour Vital Signs Date Time Temp Pulse Resp B/P Pulse Ox O2 Delivery O2 Flow Rate FiO2 03/09/17 04:14 98.6 71 19 121/56 96 Nasal Cannula 03/09/17 00:05 98.6 81 19 147/88 96 Nasal Cannula 03/08/17 23:53 97 Nasal Cannula 1.0 24 03/08/17 23:53 79 16 Nasal Cannula 1.0 24 03/08/17 23:53 Nasal Cannula 1.0 24 03/08/17 20:00 98.2 85 19 152/83 94 Nasal Cannula 03/08/17 16:00 97.5 78 18 140/75 93 Room Air 03/08/17 11:55 97.0 77 17 121/51 95 Room Air 03/08/17 10:12 75 18 Nasal Cannula 2.0 03/08/17 10:11 99 Nasal Cannula 2.0 03/08/17 10:10 Nasal Cannula 2.0 03/08/17 08:00 97.7 76 18 122/71 100 Nasal Cannula 2.0 Intake and Output 03/08/17 03/09/17 19:00 07:00 Intake Total 1120 ml 180 ml Output Total 1200 ml 1400 ml Balance -80 ml -1220 ml Intake Oral 1120 ml 180 ml Output Urine Total 1200 ml 1400 ml General Appearance: other - chronically ill looking, bedridden, middle age female in NAD HEENT: normocephalic, atraumatic, anicteric Respiratory/Chest: lungs clear, no respiratory distress, no accessory muscle use Cardiovascular: normal rate, regular rhythm Abdomen: soft, non tender Genitourinary: other - s/p catheter Extremities: no edema Neurologic/Psychiatric: abnormal gait - bedridden , alert, responsive Musculoskeletal: atrophy Current Medications Medications (Trade) Dose Ordered Sig/Sandeep Route PRN Reason Start Time Stop Time Status Last Admin Dose Admin Acetaminophen (Tylenol) 650 mg Q4H PRN ORAL fever>100.5 03/04/17 20:00 04/03/17 19:59 Albuterol/ Ipratropium (DuoNeb 0.5-3(2.5)mg/3ml) 3 ml Q4H PRN HHN Shortness of Breath 03/04/17 20:00 03/09/17 19:59 Docusate Sodium (Colace) 100 mg TWICE A DAY NG 03/06/17 18:00 04/05/17 17:59 03/08/17 18:36 Ertapenem/Sodium Chloride (INVanz/Sodium Chloride) 50 ml @ 100 mls/hr Q24H IVPB 03/05/17 06:00 03/10/17 05:59 03/09/17 06:12 Heparin Sodium (Porcine) (Heparin 5000 units/ml) 5,000 units EVERY 12 HOURS SUBQ 03/04/17 21:00 04/03/17 20:59 03/08/17 21:27 Morphine Sulfate (Morphine Sulfate) 2 mg Q4H PRN IVP Moderate Pain (Pain Scale 4-6) 03/04/17 20:00 03/11/17 19:59 Nitroglycerin (Ntg) 0.4 mg Q5MIN PRN SL Prn Chest Pain 03/04/17 20:00 04/03/17 19:59 Ondansetron HCl (Zofran) 4 mg Q6H PRN IVP Nausea & Vomiting 03/04/17 20:00 04/03/17 19:59 Polyethylene Glycol (Miralax) 17 gm DAILYPRN PRN ORAL Constipation 03/04/17 20:00 04/03/17 19:59 03/07/17 17:31 Sennosides (Senokot) 8.6 mg BID ORAL 03/05/17 09:00 04/04/17 08:59 03/08/17 18:36 Temazepam (Restoril) 15 mg HSPRN PRN ORAL Insomnia 03/04/17 21:00 03/11/17 20:59 Antonino ([facility])Trinh NP Mar 09, 2017 07:37
[2017-03-09 08:00] VITALS: BP 127/77
[2017-03-09] MEDS: Docusate 100mg/10ml Liq NG SCH ×2 (08:48→18:00)
[2017-03-09] MEDS: Heparin 5000 units/ml inj SUBQ SCH ×2 (08:52→21:29)
[2017-03-09 11:52] VITALS: BP 107/75
--- NOTE | 2017-03-09 14:06 | Infectious Diseases Prog Note ---
Assessment/Plan Assessment/Plan Assessment: 46 y/o with spina bifida, paraplegia, h/o chronic deep sacral pressure ulcer, now with good clinical response to D#4 of ertapenem for treatment of complicated Proteus UTI with h/o SP cath. 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 sepsis, resolving Proteus UTI, complicated Left sacral unstageable pressure ulcer and Right buttock unstageable pressure ulcer; prior CT in January2017 demonstrated bony erosive changes. superficial culture growing carbapenem resistant (amikacin and tmp/smx susceptible) ACB,so leukocytosis resolved despite not on coverage for this Leukocytosis, normalized afebrile negative blood cx, 03/04/17 h/o PCN G allergy, tolerating carbapenem spina bifida w/ paraplegic suprapubic urinary catheter W[employer] shunt; h/o fractured distal tip anemia Plan: --continue ertapanem D#4 of 10. Can continue with HH from ID perspective. confirm with rn case manager that home health will be able to administer abx through peripheral IV for this fairly short course. (03/06 s/p IV vancomycin D#2) --s/p wound care consult, receiving topical care. If wound fails to show any improvement with chronic wound care, may need outpatient repeat surgical evaluation with bone biopsy for histopath and culture. --monitor CBC --monitor urine cath output Subjective Constitutional: Reports: no symptoms Respiratory: Reports: no symptoms Cardiovascular: Reports: no symptoms Allergies: Coded Allergies: PENICILLIN G (Verified Allergy, Unknown, 10/11/16) Objective Vital Signs Last 24 Hour Vital Signs Date Time Temp Pulse Resp B/P Pulse Ox O2 Delivery O2 Flow Rate FiO2 03/09/17 11:52 97.9 75 20 107/75 97 Nasal Cannula 2.0 03/09/17 08:38 Nasal Cannula 1.0 24 03/09/17 08:37 100 Nasal Cannula 1.0 24 03/09/17 08:35 74 16 Nasal Cannula 1.0 24 03/09/17 08:00 97.5 70 19 127/77 98 Nasal Cannula 2.0 03/09/17 04:14 98.6 71 19 121/56 96 Nasal Cannula 03/09/17 00:05 98.6 81 19 147/88 96 Nasal Cannula 03/08/17 23:53 97 Nasal Cannula 1.0 24 03/08/17 23:53 79 16 Nasal Cannula 1.0 24 03/08/17 23:53 Nasal Cannula 1.0 24 03/08/17 20:00 98.2 85 19 152/83 94 Nasal Cannula 03/08/17 16:00 97.5 78 18 140/75 93 Room Air Height (Feet): 5 Height (Inches): 1.00 Weight (Pounds): 125 Objective GENERAL: The patient is in no acute distress. HEAD AND NECK: [place] conjunctivae. Has some mild nystagmus that is horizontal. HEART: S1 and S2, regular. LUNGS: Clear. ABDOMEN: Obese, soft, and nontender. There is a suprapubic catheter. EXTREMITIES: Has no edema. SKIN: Has some erythema in the buttock area. Lines: R EJ PIV c/d/i. Current Medications Medications (Trade) Dose Ordered Sig/Sandeep Route PRN Reason Start Time Stop Time Status Last Admin Dose Admin Acetaminophen (Tylenol) 650 mg Q4H PRN ORAL fever>100.5 03/04/17 20:00 04/03/17 19:59 Albuterol/ Ipratropium (DuoNeb 0.5-3(2.5)mg/3ml) 3 ml Q4H PRN HHN Shortness of Breath 03/04/17 20:00 03/09/17 19:59 Docusate Sodium (Colace) 100 mg TWICE A DAY NG 03/06/17 18:00 04/05/17 17:59 03/09/17 08:48 Ertapenem/Sodium Chloride (INVanz/Sodium Chloride) 50 ml @ 100 mls/hr Q24H IVPB 03/05/17 06:00 03/14/17 05:59 03/09/17 06:12 Heparin Sodium (Porcine) (Heparin 5000 units/ml) 5,000 units EVERY 12 HOURS SUBQ 03/04/17 21:00 04/03/17 20:59 03/09/17 08:52 Morphine Sulfate (Morphine Sulfate) 2 mg Q4H PRN IVP Moderate Pain (Pain Scale 4-6) 03/04/17 20:00 03/11/17 19:59 Nitroglycerin (Ntg) 0.4 mg Q5MIN PRN SL Prn Chest Pain 03/04/17 20:00 04/03/17 19:59 Ondansetron HCl (Zofran) 4 mg Q6H PRN IVP Nausea & Vomiting 03/04/17 20:00 04/03/17 19:59 Polyethylene Glycol (Miralax) 17 gm DAILYPRN PRN ORAL Constipation 03/04/17 20:00 04/03/17 19:59 03/07/17 17:31 Sennosides (Senokot) 8.6 mg BID ORAL 03/05/17 09:00 04/04/17 08:59 03/09/17 08:48 Temazepam (Restoril) 15 mg HSPRN PRN ORAL Insomnia 03/04/17 21:00 03/11/17 20:59 Zacarias Ngo M.D. Mar 09, 2017 14:06
[2017-03-09 16:00] VITALS: BP 107/74
[2017-03-09 20:00] VITALS: BP 129/81
[2017-03-10] VITALS: BP 120/63
[2017-03-10 04:00] VITALS: BP 97/64
[2017-03-10 08:18] VITALS: BP 116/68
[2017-03-10] MEDS: Heparin 5000 units/ml inj SUBQ SCH ×2 (08:58→21:43)
[2017-03-10] MEDS: Docusate 100mg/10ml Liq NG SCH ×2 (09:00→18:24)
[2017-03-10] MEDS ORDERED: Tubing IV Secondary IV ONE (09:23)
[2017-03-10] MEDS ORDERED: NS 275ml ONE (09:24)
--- NOTE | 2017-03-10 11:02 | Pulmonology Progress Note ---
Assessment/Plan Assessment/Plan ASSESSMENT sepsis complicated UTI with Proteus hx of recurrent UTI spina bifida paraplegia s/p catheter status anemia Lt sacral decub POA R buttock decub POA PLAN OF CARE MS floor abx ID follows urine cx + Proteus wound cx +ACB ,blood cx preliminary negative leucocytosis resoled CXR with Mild interstitial edema or pneumonitis may be present. However findings appear stable compared to last study. O2 HHN prn monitor HH , transfuse prn, stable goal to keep Hgb above 7 DVT prophylaxis PT/OT wound care as per wound nurse recommendations dc today after HH services arranged for IV abx, need Invanz for 6 more days as per ID recommendations case discussed and evaluated by supervising physician Subjective Allergies: Coded Allergies: PENICILLIN G (Verified Allergy, Unknown, 10/11/16) Subjective leukocytosis resolved, afebrile no signs of respiratory distress pulse oximetry stable on O2- 2L via NC was not dc yesterday 03/09 as ordered ( no arrangements were made for HH services) Objective Last 24 Hour Vital Signs Date Time Temp Pulse Resp B/P Pulse Ox O2 Delivery O2 Flow Rate FiO2 03/10/17 08:18 98.4 77 20 116/68 95 Nasal Cannula 2.0 03/10/17 04:00 98.6 82 20 97/64 96 Nasal Cannula 2.0 03/10/17 00:00 97.7 69 18 120/63 97 Nasal Cannula 2.0 03/09/17 20:00 97.2 85 20 129/81 96 Nasal Cannula 2.0 03/09/17 19:34 97 Nasal Cannula 2.0 28 03/09/17 19:34 Nasal Cannula 2.0 28 03/09/17 19:34 83 18 Nasal Cannula 2.0 28 03/09/17 16:00 97.9 84 20 107/74 97 Nasal Cannula 2.0 03/09/17 11:52 97.9 75 20 107/75 97 Nasal Cannula 2.0 Intake and Output 03/09/17 03/10/17 19:00 07:00 Intake Total 120 ml Output Total 800 ml 650 ml Balance -800 ml -530 ml Intake Oral 120 ml Output Urine Total 800 ml 650 ml # Bowel Movements 1 2 Objective General Appearance: other - chronically ill looking, bedridden, middle age female in NAD HEENT: normocephalic, atraumatic, anicteric Respiratory/Chest: lungs clear, no respiratory distress, no accessory muscle use Cardiovascular: normal rate, regular rhythm Abdomen: soft, non tender Genitourinary: other - s/p catheter Extremities: no edema Neurologic/Psychiatric: abnormal gait - bedridden , alert, responsive Musculoskeletal: atrophy Laboratory Tests 03/09/17 18:00: Stool Occult Blood [Pending] Current Medications Medications (Trade) Dose Ordered Sig/Sandeep Route PRN Reason Start Time Stop Time Status Last Admin Dose Admin Acetaminophen (Tylenol) 650 mg Q4H PRN ORAL fever>100.5 03/04/17 20:00 04/03/17 19:59 Docusate Sodium (Colace) 100 mg TWICE A DAY NG 03/06/17 18:00 04/05/17 17:59 03/09/17 08:48 Ertapenem/Sodium Chloride (INVanz/Sodium Chloride) 50 ml @ 100 mls/hr Q24H IVPB 03/05/17 06:00 03/14/17 05:59 03/10/17 06:54 Heparin Sodium (Porcine) (Heparin 5000 units/ml) 5,000 units EVERY 12 HOURS SUBQ 03/04/17 21:00 04/03/17 20:59 03/10/17 08:58 Morphine Sulfate (Morphine Sulfate) 2 mg Q4H PRN IVP Moderate Pain (Pain Scale 4-6) 03/04/17 20:00 03/11/17 19:59 Nitroglycerin (Ntg) 0.4 mg Q5MIN PRN SL Prn Chest Pain 03/04/17 20:00 04/03/17 19:59 Ondansetron HCl (Zofran) 4 mg Q6H PRN IVP Nausea & Vomiting 03/04/17 20:00 04/03/17 19:59 Polyethylene Glycol (Miralax) 17 gm DAILYPRN PRN ORAL Constipation 03/04/17 20:00 04/03/17 19:59 03/07/17 17:31 Sennosides (Senokot) 8.6 mg BID ORAL 03/05/17 09:00 04/04/17 08:59 03/09/17 08:48 Temazepam (Restoril) 15 mg HSPRN PRN ORAL Insomnia 03/04/17 21:00 03/11/17 20:59 Trinh Muñiz NP ([facility]) Mar 10, 2017 11:02
[2017-03-10 11:33] VITALS: BP 118/65
--- NOTE | 2017-03-10 14:48 | Infectious Diseases Prog Note ---
Assessment/Plan Assessment/Plan Assessment: 46 y/o with spina bifida, paraplegia, h/o chronic deep sacral pressure ulcer, now with good clinical response to D#5 of ertapenem for treatment of complicated Proteus UTI with h/o SP cath. 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 sepsis, resolving Proteus UTI, complicated Left sacral unstageable pressure ulcer and Right buttock unstageable pressure ulcer; prior CT in January2017 demonstrated bony erosive changes. 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 Can continue with HH from ID perspective. confirm with case operator that home health will be able to administer abx through peripheral IV for this fairly short course. (03/06 s/p IV vancomycin D#2) --s/p wound care consult, receiving topical care, has colonization of wound with ACB, proteus, and MRSA. If wound fails to show any improvement with chronic wound care, may need outpatient repeat surgical evaluation with bone biopsy for histopath and culture and eventual flap coverage. --monitor CBC --monitor urine cath output Subjective Constitutional: Reports: no symptoms Respiratory: Reports: no symptoms Cardiovascular: Reports: no symptoms Allergies: Coded Allergies: PENICILLIN G (Verified Allergy, Unknown, 10/11/16) Objective Vital Signs Last 24 Hour Vital Signs Date Time Temp Pulse Resp B/P Pulse Ox O2 Delivery O2 Flow Rate FiO2 03/10/17 11:33 98.0 72 20 118/65 95 Nasal Cannula 2.0 03/10/17 08:18 98.4 77 20 116/68 95 Nasal Cannula 2.0 03/10/17 06:54 Nasal Cannula 1.0 24 03/10/17 06:53 98 Nasal Cannula 2.0 28 03/10/17 04:00 98.6 82 20 97/64 96 Nasal Cannula 2.0 03/10/17 00:00 97.7 69 18 120/63 97 Nasal Cannula 2.0 03/09/17 20:00 97.2 85 20 129/81 96 Nasal Cannula 2.0 03/09/17 19:34 97 Nasal Cannula 2.0 28 03/09/17 19:34 Nasal Cannula 2.0 28 03/09/17 19:34 83 18 Nasal Cannula 2.0 28 03/09/17 16:00 97.9 84 20 107/74 97 Nasal Cannula 2.0 Height (Feet): 5 Height (Inches): 1.00 Weight (Pounds): 125 Objective GENERAL: The patient is in no acute distress. HEAD AND NECK: [place] conjunctivae. Has some mild nystagmus that is horizontal. HEART: S1 and S2, regular. LUNGS: Clear. ABDOMEN: Obese, soft, and nontender. There is a suprapubic catheter. EXTREMITIES: Has no edema. SKIN: Has some erythema in the buttock area. Lines: R EJ PIV c/d/i. Laboratory Tests Test 03/09/17 18:00 Stool Occult Blood Pending Current Medications Medications (Trade) Dose Ordered Sig/Sandeep Route PRN Reason Start Time Stop Time Status Last Admin Dose Admin Acetaminophen (Tylenol) 650 mg Q4H PRN ORAL fever>100.5 03/04/17 20:00 04/03/17 19:59 Docusate Sodium (Colace) 100 mg TWICE A DAY NG 03/06/17 18:00 04/05/17 17:59 03/09/17 08:48 Ertapenem/Sodium Chloride (INVanz/Sodium Chloride) 50 ml @ 100 mls/hr Q24H IVPB 03/05/17 06:00 03/14/17 05:59 03/10/17 06:54 Heparin Sodium (Porcine) (Heparin 5000 units/ml) 5,000 units EVERY 12 HOURS SUBQ 03/04/17 21:00 04/03/17 20:59 03/10/17 08:58 Morphine Sulfate (Morphine Sulfate) 2 mg Q4H PRN IVP Moderate Pain (Pain Scale 4-6) 03/04/17 20:00 03/11/17 19:59 Nitroglycerin (Ntg) 0.4 mg Q5MIN PRN SL Prn Chest Pain 03/04/17 20:00 04/03/17 19:59 Ondansetron HCl (Zofran) 4 mg Q6H PRN IVP Nausea & Vomiting 03/04/17 20:00 04/03/17 19:59 Polyethylene Glycol (Miralax) 17 gm DAILYPRN PRN ORAL Constipation 03/04/17 20:00 04/03/17 19:59 03/07/17 17:31 Sennosides (Senokot) 8.6 mg BID ORAL 03/05/17 09:00 04/04/17 08:59 03/09/17 08:48 Temazepam (Restoril) 15 mg HSPRN PRN ORAL Insomnia 03/04/17 21:00 03/11/17 20:59 Zacarias Ngo M.D. Mar 10, 2017 14:48
[2017-03-10 16:15] VITALS: BP 109/78
[2017-03-10 20:00] VITALS: BP 144/83
[2017-03-11] VITALS: BP 134/71
[2017-03-11 04:00] VITALS: BP 128/69
[2017-03-11 08:09] VITALS: BP 104/58
--- NOTE | 2017-03-11 08:54 | Pulmonology Progress Note ---
Assessment/Plan Assessment/Plan ASSESSMENT sepsis complicated UTI with Proteus hx of recurrent UTI spina bifida paraplegia s/p catheter status anemia Lt sacral decub POA R buttock decub POA PLAN OF CARE MS floor abx ID follows urine cx + Proteus wound cx +ACB ,blood cx preliminary negative leucocytosis resoled CXR with Mild interstitial edema or pneumonitis may be present. However findings appear stable compared to last study. O2 HHN prn monitor HH , transfuse prn, stable goal to keep Hgb above 7 DVT prophylaxis PT/OT wound care as per wound nurse recommendations check O2 sat on RA 15 min after O2 removed dc today after HH services arranged for IV abx, need Invanz for 5 more days as per ID recommendations case discussed and evaluated by supervising physician Subjective Allergies: Coded Allergies: PENICILLIN G (Verified Allergy, Unknown, 10/11/16) Subjective leukocytosis resolved, afebrile no signs of respiratory distress pulse oximetry stable on O2- 2L via NC was not dc 03/09 as ordered ( no arrangements were made for HH services) Objective Last 24 Hour Vital Signs Date Time Temp Pulse Resp B/P Pulse Ox O2 Delivery O2 Flow Rate FiO2 03/11/17 08:09 97.5 67 17 104/58 91 Nasal Cannula 2.0 03/11/17 04:00 97.5 84 18 128/69 97 Nasal Cannula 2.0 03/11/17 01:35 Nasal Cannula 2.0 28 03/11/17 01:35 99 Nasal Cannula 2.0 28 03/11/17 00:00 97.1 82 18 134/71 96 Nasal Cannula 2.0 03/10/17 21:10 96.8 03/10/17 20:00 98.2 87 18 144/83 98 Nasal Cannula 2.0 03/10/17 16:15 98.2 79 20 109/78 99 Nasal Cannula 2.0 03/10/17 11:33 98.0 72 20 118/65 95 Nasal Cannula 2.0 Intake and Output 03/10/17 03/11/17 19:00 07:00 Intake Total 1010 ml 240 ml Output Total 600 ml 1200 ml Balance 410 ml -960 ml Intake Oral 960 ml 240 ml IV Total 50 ml Output Urine Total 600 ml 1200 ml Objective General Appearance: other - chronically ill looking, bedridden, middle age female in NAD HEENT: normocephalic, atraumatic, anicteric Respiratory/Chest: lungs clear, no respiratory distress, no accessory muscle use Cardiovascular: normal rate, regular rhythm Abdomen: soft, non tender Genitourinary: other - s/p catheter Extremities: no edema Neurologic/Psychiatric: abnormal gait - bedridden , alert, responsive Musculoskeletal: atrophy Current Medications Medications (Trade) Dose Ordered Sig/Sandeep Route PRN Reason Start Time Stop Time Status Last Admin Dose Admin Acetaminophen (Tylenol) 650 mg Q4H PRN ORAL fever>100.5 03/04/17 20:00 04/03/17 19:59 Docusate Sodium (Colace) 100 mg TWICE A DAY NG 03/06/17 18:00 04/05/17 17:59 03/10/17 18:24 Ertapenem/Sodium Chloride (INVanz/Sodium Chloride) 50 ml @ 100 mls/hr Q24H IVPB 03/05/17 06:00 03/14/17 05:59 03/11/17 06:07 Heparin Sodium (Porcine) (Heparin 5000 units/ml) 5,000 units EVERY 12 HOURS SUBQ 03/04/17 21:00 04/03/17 20:59 03/10/17 21:43 Morphine Sulfate (Morphine Sulfate) 2 mg Q4H PRN IVP Moderate Pain (Pain Scale 4-6) 03/04/17 20:00 03/11/17 19:59 Nitroglycerin (Ntg) 0.4 mg Q5MIN PRN SL Prn Chest Pain 03/04/17 20:00 04/03/17 19:59 Ondansetron HCl (Zofran) 4 mg Q6H PRN IVP Nausea & Vomiting 03/04/17 20:00 04/03/17 19:59 Polyethylene Glycol (Miralax) 17 gm DAILYPRN PRN ORAL Constipation 03/04/17 20:00 04/03/17 19:59 03/07/17 17:31 Sennosides (Senokot) 8.6 mg BID ORAL 03/05/17 09:00 04/04/17 08:59 03/10/17 17:14 Temazepam (Restoril) 15 mg HSPRN PRN ORAL Insomnia 03/04/17 21:00 03/11/17 20:59 Trinh Muñiz NP ([facility]) Mar 11, 2017 08:54
[2017-03-11] MEDS ORDERED: DuoNeb 0.5-3(2.5)mg/3ml neb HHN PRN (09:00)
[2017-03-11] MEDS: Docusate 100mg/10ml Liq NG SCH ×2 (09:30→17:19)
[2017-03-11] MEDS: Heparin 5000 units/ml inj SUBQ SCH ×2 (09:32→22:16)
[2017-03-11] MEDS ORDERED: Morphine Sulfate 2mg/ml Inj IVP PRN (10:00)
[2017-03-11 12:00] VITALS: BP 114/68
[2017-03-11 16:00] VITALS: BP 128/68
--- NOTE | 2017-03-11 16:17 | Infectious Diseases Prog Note ---
Assessment/Plan Assessment/Plan Assessment: 46 y/o with spina bifida, paraplegia, h/o chronic deep sacral pressure ulcer, now with good clinical response to D#6 of ertapenem for treatment of complicated Proteus UTI with h/o SP cath. 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 sepsis, resolving Proteus UTI, complicated Left sacral unstageable pressure ulcer and Right buttock unstageable pressure ulcer; prior CT in January2017 demonstrated bony erosive changes. 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 Can continue with HH from ID perspective. confirm with behavioral health case manager that home health will be able to administer abx through peripheral IV for this fairly short course. (03/06 s/p IV vancomycin D#2) --s/p wound care consult, receiving topical care, has colonization of wound with ACB, proteus, and MRSA. If wound fails to show any improvement with chronic wound care, may need outpatient repeat surgical evaluation with bone biopsy for histopath and culture and eventual flap coverage. --monitor CBC --monitor urine cath output Subjective Constitutional: Reports: no symptoms Respiratory: Reports: no symptoms Cardiovascular: Reports: no symptoms Genitourinary: Reports: no symptoms Skin: Reports: no symptoms Allergies: Coded Allergies: PENICILLIN G (Verified Allergy, Unknown, 10/11/16) Objective Vital Signs Last 24 Hour Vital Signs Date Time Temp Pulse Resp B/P Pulse Ox O2 Delivery O2 Flow Rate FiO2 03/11/17 12:00 97.7 70 18 114/68 92 Room Air 03/11/17 10:08 Nasal Cannula 2.0 03/11/17 10:07 98 Nasal Cannula 2.0 03/11/17 08:09 97.5 67 17 104/58 91 Nasal Cannula 2.0 03/11/17 04:00 97.5 84 18 128/69 97 Nasal Cannula 2.0 03/11/17 01:35 Nasal Cannula 2.0 28 03/11/17 01:35 99 Nasal Cannula 2.0 28 03/11/17 00:00 97.1 82 18 134/71 96 Nasal Cannula 2.0 03/10/17 21:10 96.8 03/10/17 20:00 98.2 87 18 144/83 98 Nasal Cannula 2.0 Height (Feet): 5 Height (Inches): 1.00 Weight (Pounds): 125 Objective GENERAL: The patient is in no acute distress. HEAD AND NECK: [place] conjunctivae. Has some mild nystagmus that is horizontal. HEART: S1 and S2, regular. LUNGS: Clear. ABDOMEN: Obese, soft, and nontender. There is a suprapubic catheter. EXTREMITIES: Has no edema. SKIN: Has some erythema in the buttock area. Lines: R EJ PIV c/d/i. Current Medications Medications (Trade) Dose Ordered Sig/Sandeep Route PRN Reason Start Time Stop Time Status Last Admin Dose Admin Acetaminophen (Tylenol) 650 mg Q4H PRN ORAL fever>100.5 03/04/17 20:00 04/03/17 19:59 Albuterol/ Ipratropium (DuoNeb 0.5-3(2.5)mg/3ml) 3 ml Q4H PRN HHN Shortness of Breath 03/11/17 09:00 03/16/17 08:59 Docusate Sodium (Colace) 100 mg TWICE A DAY NG 03/06/17 18:00 04/05/17 17:59 03/11/17 09:30 Ertapenem/Sodium Chloride (INVanz/Sodium Chloride) 50 ml @ 100 mls/hr Q24H IVPB 03/05/17 06:00 03/14/17 05:59 03/11/17 06:07 Heparin Sodium (Porcine) (Heparin 5000 units/ml) 5,000 units EVERY 12 HOURS SUBQ 03/04/17 21:00 04/03/17 20:59 03/11/17 09:32 Morphine Sulfate (Morphine Sulfate) 2 mg Q4H PRN IVP Moderate Pain (Pain Scale 4-6) 03/11/17 10:00 03/18/17 09:59 Nitroglycerin (Ntg) 0.4 mg Q5MIN PRN SL Prn Chest Pain 03/04/17 20:00 04/03/17 19:59 Ondansetron HCl (Zofran) 4 mg Q6H PRN IVP Nausea & Vomiting 03/04/17 20:00 04/03/17 19:59 Polyethylene Glycol (Miralax) 17 gm DAILYPRN PRN ORAL Constipation 03/04/17 20:00 04/03/17 19:59 03/07/17 17:31 Sennosides (Senokot) 8.6 mg BID ORAL 03/05/17 09:00 04/04/17 08:59 03/11/17 09:44 Temazepam (Restoril) 15 mg HSPRN PRN ORAL Insomnia 03/11/17 10:00 03/18/17 09:59 Zacarias Ngo M.D. Mar 11, 2017 16:17
[2017-03-11 20:00] VITALS: BP 137/70
[2017-03-12] VITALS (7 sets, daily range): BP systolic 110–119; BP diastolic 53–76
[2017-03-12 06:16] LABS: BASOPHILS % (AUTO) 0.8 % (0.0-2.0); EOSINOPHILS % (AUTO) 2.3 % (0.0-3.0); LYMPHOCYTES % (AUTO) 21.2 % (20.0-45.0); MEAN CORPUSCULAR HEMOGLOBIN 23.2 PG (27.0-31.0); MEAN CORPUSCULAR HGB CONC 30.8 G/DL (32.0-36.0); MEAN CORPUSCULAR VOLUME 75 FL (80-99); MEAN PLATELET VOLUME 5.6 FL (6.5-10.1); MONOCYTES % (AUTO) 4.5 % (1.0-10.0); NEUTROPHILS % (AUTO) 71.2 % (45.0-75.0); PLATELET COUNT 402 K/UL (150-450); RED BLOOD COUNT 5.36 M/UL (4.20-5.40); WHITE BLOOD COUNT 10.2 K/UL (4.8-10.8)
[2017-03-12 06:34] LABS: ANION GAP 10 (5-15); CALCIUM 9.1 mg/dL (8.6-10.2); CARBON DIOXIDE 31 mEQ/L (20-30); CHLORIDE 95 mEQ/L (98-107); CREATININE 0.4 mg/dL (0.5-0.9); GLOMERULAR FILTRATION RATE > 60 mL/min (>60); HEMOLYSIS 27; SODIUM 136 mEQ/L (135-145)
[2017-03-12] MEDS ORDERED: INVANZ1 GM IVPB (07:57)
[2017-03-12] MEDS: Docusate 100mg/10ml Liq NG SCH ×2 (08:34→17:41)
[2017-03-12] MEDS: Heparin 5000 units/ml inj SUBQ SCH ×2 (08:37→21:00)
--- NOTE | 2017-03-12 13:35 | Infectious Diseases Prog Note ---
Assessment/Plan Assessment/Plan A; Complicated UTI Anemia Paraplegia Sacral pressure ulcer MRSA colonization P; continue Ertapenem X 3 days Subjective ROS Limited/Unobtainable: No Constitutional: Reports: no symptoms Respiratory: Reports: no symptoms Cardiovascular: Reports: no symptoms Gastrointestinal/Abdominal: Reports: no symptoms Genitourinary: Reports: no symptoms Allergies: Coded Allergies: PENICILLIN G (Verified Allergy, Unknown, 10/11/16) Objective Vital Signs Last 24 Hour Vital Signs Date Time Temp Pulse Resp B/P Pulse Ox O2 Delivery O2 Flow Rate FiO2 03/12/17 12:00 96.4 77 18 115/76 98 Nasal Cannula 2.0 03/12/17 11:00 87 Room Air 03/12/17 10:36 91 Room Air 03/12/17 10:21 Nasal Cannula 2.0 03/12/17 10:21 96 Nasal Cannula 2.0 03/12/17 08:00 97.9 96 18 114/53 93 Nasal Cannula 2.0 03/12/17 04:00 98.6 104 18 119/69 95 Nasal Cannula 2.0 03/12/17 00:00 98.1 85 20 110/59 97 Nasal Cannula 2.0 03/11/17 20:00 98.1 92 18 137/70 96 Nasal Cannula 2.0 03/11/17 19:05 98 Nasal Cannula 2.0 03/11/17 19:05 Nasal Cannula 2.0 03/11/17 16:00 97.0 70 18 128/68 87 Room Air Height (Feet): 5 Height (Inches): 1.00 Weight (Pounds): 125 General Appearance: no acute distress HEENT: mucous membranes moist Respiratory/Chest: lungs clear Cardiovascular: normal rate Abdomen: soft, non tender Genitourinary: other - suprapubic catheter Extremities: no edema Skin: ulcers Neurologic/Psychiatric: alert, responsive, other - paraplegic Laboratory Tests Test 03/12/17 05:50 White Blood Count 10.2 K/UL (4.8-10.8) Red Blood Count 5.36 M/UL (4.20-5.40) Hemoglobin 12.4 G/DL (12.0-16.0) Hematocrit 40.3 % (37.0-47.0) Mean Corpuscular Volume 75 FL (80-99) L Mean Corpuscular Hemoglobin 23.2 PG (27.0-31.0) L Mean Corpuscular Hemoglobin Concent 30.8 G/DL (32.0-36.0) L Red Cell Distribution Width 18.0 % (11.6-14.8) H Platelet Count 402 K/UL (150-450) Mean Platelet Volume 5.6 FL (6.5-10.1) L Neutrophils (%) (Auto) 71.2 % (45.0-75.0) Lymphocytes (%) (Auto) 21.2 % (20.0-45.0) Monocytes (%) (Auto) 4.5 % (1.0-10.0) Eosinophils (%) (Auto) 2.3 % (0.0-3.0) Basophils (%) (Auto) 0.8 % (0.0-2.0) Sodium Level 136 mEQ/L (135-145) Potassium Level 5.0 mEQ/L (3.4-4.9) H Chloride Level 95 mEQ/L (98-107) L Carbon Dioxide Level 31 mEQ/L (20-30) H Anion Gap 10 (5-15) Blood Urea Nitrogen 11 mg/dL (7-23) Creatinine 0.4 mg/dL (0.5-0.9) L Estimat Glomerular Filtration Rate > 60 mL/min (>60) Glucose Level 114 mg/dL (74-106) H Calcium Level 9.1 mg/dL (8.6-10.2) Current Medications Medications (Trade) Dose Ordered Sig/Sandeep Route PRN Reason Start Time Stop Time Status Last Admin Dose Admin Acetaminophen (Tylenol) 650 mg Q4H PRN ORAL fever>100.5 03/04/17 20:00 04/03/17 19:59 Albuterol/ Ipratropium (DuoNeb 0.5-3(2.5)mg/3ml) 3 ml Q4H PRN HHN Shortness of Breath 03/11/17 09:00 03/16/17 08:59 Docusate Sodium (Colace) 100 mg TWICE A DAY NG 03/06/17 18:00 04/05/17 17:59 03/12/17 08:34 Ertapenem/Sodium Chloride (INVanz/Sodium Chloride) 50 ml @ 100 mls/hr Q24H IVPB 03/05/17 06:00 03/14/17 05:59 03/12/17 05:16 Heparin Sodium (Porcine) (Heparin 5000 units/ml) 5,000 units EVERY 12 HOURS SUBQ 03/04/17 21:00 04/03/17 20:59 03/12/17 08:37 Morphine Sulfate (Morphine Sulfate) 2 mg Q4H PRN IVP Moderate Pain (Pain Scale 4-6) 03/11/17 10:00 03/18/17 09:59 Nitroglycerin (Ntg) 0.4 mg Q5MIN PRN SL Prn Chest Pain 03/04/17 20:00 04/03/17 19:59 Ondansetron HCl (Zofran) 4 mg Q6H PRN IVP Nausea & Vomiting 03/04/17 20:00 04/03/17 19:59 Polyethylene Glycol (Miralax) 17 gm DAILYPRN PRN ORAL Constipation 03/04/17 20:00 04/03/17 19:59 03/07/17 17:31 Sennosides (Senokot) 8.6 mg BID ORAL 03/05/17 09:00 04/04/17 08:59 03/12/17 08:34 Temazepam (Restoril) 15 mg HSPRN PRN ORAL Insomnia 03/11/17 10:00 03/18/17 09:59 03/11/17 22:09 DEREK SULLIVAN Mar 12, 2017 13:35
--- NOTE | 2017-03-12 16:07 | Wound Care Consultation ---
Wound Assessment Wound Assessment #1: Wound Number: #1 Wound Present on Admission: Yes New Wound: No Status Change of Wound: No Wound Location Body Site Modif: left Wound Location Body Site: sacral Wound Type: pressure ulcer Alyssa Test: Does not Alyssa Pressure Ulcer Stage: IV/unstageable Wound Thickness: Full Thickness Wound Length: 6.5 Wound Width: 9.5 Wound Depth: utd Percent of Wound [place]/Red: 75 Percent of Wound Bed Yellow/Wh: 25 Wound Drainage Description: Serosanguineous Wound Drainage Amount: Moderate - noted decrease in drainage. Wound Drainage Odor: None/Absent Tissue Surrounding Wound: Macerated - noted decrease in masceration. Wound General Appearance: Reddened, Draining, Unapproximated, Necrotic Wound Assessment #2: Wound Number: #2 Wound Present on Admission: Yes New Wound: No Status Change of Wound: No Wound Location Body Site Modif: right Wound Location Body Site: buttocks Wound Type: pressure ulcer Alyssa Test: Does not Alyssa Pressure Ulcer Stage: III - admitted unstageable appearing stage III. Wound Thickness: Full Thickness Wound Length: 4.0 Wound Width: 3.0 Wound Depth: 0.3 Percent of Wound [place]/Red: 90 Percent of Wound Bed Yellow/Wh: 10 Wound Drainage Description: Serosanguineous Wound Drainage Amount: Moderate Wound Drainage Odor: None/Absent Wound General Appearance: Reddened, Necrotic Wound Assessment #3: Wound Number: #3 Wound Present on Admission: No New Wound: Yes Status Change of Wound: No Wound Location Body Site Modif: right Wound Location Body Site: ischial tuberosity Wound Type: pressure ulcer Alyssa Test: Does not Alyssa Pressure Ulcer Stage: deep tissue injury Wound Thickness: Full Thickness Wound Length: 4.5 Wound Width: 2.5 Wound Depth: utd Percent of Wound Purple/Maroon: 100 Wound Drainage Amount: None Wound Drainage Odor: None/Absent Tissue Surrounding Wound: Intact Wound General Appearance: Reddened - maroon. Wound Assessment #4: Wound Number: #4 Wound Present on Admission: No New Wound: Yes Status Change of Wound: No Wound Location Body Site Modif: right, upper Wound Location Body Site: trochanter Wound Type: pressure ulcer Alyssa Test: Does not Alyssa Pressure Ulcer Stage: deep tissue injury Wound Thickness: Full Thickness Wound Length: 2.5 Wound Width: 2.0 Wound Depth: utd Percent of Wound Purple/Maroon: 100 Wound Drainage Amount: None Wound Drainage Odor: None/Absent Tissue Surrounding Wound: Intact Wound General Appearance: Reddened - maroon. Wound Comment #1 Left sacral unstageable pressure ulcer - no further deterioration present current recommended wound care is effective. #2 Right buttocks unstageable appearing stage III pressure ulcer.- noted good progress to unstageable wound now appearing stage III decrease in size, noted increase in pink tissue to wound bed. #3 Right upper trochanter deep tissue injury. #4 Right ischial tuberosity deep tissue injury. Recommendation -Left sacral unstageable pressure ulcer and Right buttock unstageable pressure ulcer appearing stage III. Cleanse with saline, pat dry, apply Triad cream to periwound area, apply Therahoney to wound bed, apply calcium alginate, cover with bordered gauze daily and PRN soiled/dislodged. -Right upper trochanter deep tissue injury. -Right ischial tuberosity deep tissue injury. Cleanse with normal saline, pat dry, apply No sting skin barrier film, cover with Biatain Silicone DAILY and PRN if soiled/dislodged. Avoid shear or friction. OFFLOAD affected sites. -Low air loss mattress -Optimize nutrition -Keep clean and dry -Turn and reposition -Offload both heels -Heel protector on both heels -Assess and f/u with MD for any further changed of condition noted. VINAY STRE[address] Mar 12, 2017 16:07
--- NOTE | 2017-03-12 16:31 | Pulmonology Progress Note ---
Assessment/Plan Problems: (1) Sepsis (2) Spina bifida (3) Suprapubic catheter (4) Paraplegia (5) Restrictive lung disease due to kyphoscoliosis Assessment/Plan wbc decreasing continue abx, Ertapenem for total of 10 days check cultures hypoxemia secondary to restrictive lung disease caused by Spina Bifida dc home in am to finish abx Subjective ROS Limited/Unobtainable: No Interval Events: comfortable, NAD Allergies: Coded Allergies: PENICILLIN G (Verified Allergy, Unknown, 10/11/16) Objective Last 24 Hour Vital Signs Date Time Temp Pulse Resp B/P Pulse Ox O2 Delivery O2 Flow Rate FiO2 03/12/17 16:00 96.8 68 18 116/62 97 Nasal Cannula 2.0 03/12/17 12:00 96.4 77 18 115/76 98 Nasal Cannula 2.0 03/12/17 11:00 87 Room Air 03/12/17 10:36 91 Room Air 03/12/17 10:21 Nasal Cannula 2.0 03/12/17 10:21 96 Nasal Cannula 2.0 03/12/17 08:00 97.9 96 18 114/53 93 Nasal Cannula 2.0 03/12/17 04:00 98.6 104 18 119/69 95 Nasal Cannula 2.0 03/12/17 00:00 98.1 85 20 110/59 97 Nasal Cannula 2.0 03/11/17 20:00 98.1 92 18 137/70 96 Nasal Cannula 2.0 03/11/17 19:05 98 Nasal Cannula 2.0 03/11/17 19:05 Nasal Cannula 2.0 Intake and Output 03/11/17 03/12/17 19:00 07:00 Intake Total 610 ml 410 ml Output Total 2800 ml Balance 610 ml -2390 ml Intake Oral 610 ml 360 ml IV Total 50 ml Output Urine Total 2800 ml General Appearance: WD/WN HEENT: normocephalic, atraumatic Respiratory/Chest: chest wall non-tender, lungs clear, normal breath sounds Abdomen: soft, non tender Extremities: no clubbing 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 Lymphatic: no neck adenopathy Laboratory Tests 03/12/17 05:50: White Blood Count 10.2, Red Blood Count 5.36, Hemoglobin 12.4, Hematocrit 40.3, Mean Corpuscular Volume 75L, Mean Corpuscular Hemoglobin 23.2L, Mean Corpuscular Hemoglobin Concent 30.8L, Red Cell Distribution Width 18.0H, Platelet Count 402, Mean Platelet Volume 5.6L, Neutrophils (%) (Auto) 71.2, Lymphocytes (%) (Auto) 21.2, Monocytes (%) (Auto) 4.5, Eosinophils (%) (Auto) 2.3, Basophils (%) (Auto) 0.8, Sodium Level 136, Potassium Level 5.0H, Chloride Level 95L, Carbon Dioxide Level 31H, Anion Gap 10, Blood Urea Nitrogen 11, Creatinine 0.4L, Estimat Glomerular Filtration Rate > 60, Glucose Level 114H, Calcium Level 9.1 Current Medications Medications (Trade) Dose Ordered Sig/Sandeep Route PRN Reason Start Time Stop Time Status Last Admin Dose Admin Acetaminophen (Tylenol) 650 mg Q4H PRN ORAL fever>100.5 03/04/17 20:00 04/03/17 19:59 Albuterol/ Ipratropium (DuoNeb 0.5-3(2.5)mg/3ml) 3 ml Q4H PRN HHN Shortness of Breath 03/11/17 09:00 03/16/17 08:59 Docusate Sodium (Colace) 100 mg TWICE A DAY NG 03/06/17 18:00 04/05/17 17:59 03/12/17 08:34 Ertapenem/Sodium Chloride (INVanz/Sodium Chloride) 50 ml @ 100 mls/hr Q24H IVPB 03/05/17 06:00 03/14/17 05:59 03/12/17 05:16 Heparin Sodium (Porcine) (Heparin 5000 units/ml) 5,000 units EVERY 12 HOURS SUBQ 03/04/17 21:00 04/03/17 20:59 03/12/17 08:37 Morphine Sulfate (Morphine Sulfate) 2 mg Q4H PRN IVP Moderate Pain (Pain Scale 4-6) 03/11/17 10:00 03/18/17 09:59 Nitroglycerin (Ntg) 0.4 mg Q5MIN PRN SL Prn Chest Pain 03/04/17 20:00 04/03/17 19:59 Ondansetron HCl (Zofran) 4 mg Q6H PRN IVP Nausea & Vomiting 03/04/17 20:00 04/03/17 19:59 Polyethylene Glycol (Miralax) 17 gm DAILYPRN PRN ORAL Constipation 03/04/17 20:00 04/03/17 19:59 03/07/17 17:31 Sennosides (Senokot) 8.6 mg BID ORAL 03/05/17 09:00 04/04/17 08:59 03/12/17 08:34 Temazepam (Restoril) 15 mg HSPRN PRN ORAL Insomnia 03/11/17 10:00 03/18/17 09:59 03/11/17 22:09 JARET HERNÁNDEZ Mar 12, 2017 16:31
[2017-03-13 04:19] VITALS: BP 97/51
[2017-03-13] MEDS: Docusate 100mg/10ml Liq NG SCH (08:55)
[2017-03-13] MEDS: Heparin 5000 units/ml inj SUBQ SCH (08:57)
[2017-03-13 08:58] VITALS: BP 114/63
[2017-03-13 12:36] VITALS: BP 117/77
--- NOTE | 2017-03-13 18:23 | Pulmonology Progress Note ---
Assessment/Plan Problems: (1) Sepsis (2) Spina bifida (3) Suprapubic catheter (4) Paraplegia (5) Restrictive lung disease due to kyphoscoliosis Assessment/Plan wbc decreasing continue abx, Ertapenem for total of 10 days check cultures hypoxemia secondary to restrictive lung disease caused by Spina Bifida dc home itoday to finish abx Subjective ROS Limited/Unobtainable: No Constitutional: Reports: no symptoms HEENT: Repors: no symptoms Respiratory: Reports: no symptoms Allergies: Coded Allergies: PENICILLIN G (Verified Allergy, Unknown, 10/11/16) Objective Last 24 Hour Vital Signs Date Time Temp Pulse Resp B/P Pulse Ox O2 Delivery O2 Flow Rate FiO2 03/13/17 12:36 97.5 86 19 117/77 98 Nasal Cannula 2.0 03/13/17 09:44 97.3 03/13/17 08:58 97.3 95 19 114/63 99 Room Air 03/13/17 07:40 Nasal Cannula 2.0 28 03/13/17 07:40 96 Nasal Cannula 2.0 28 03/13/17 04:19 97.3 88 20 97/51 95 Room Air 03/12/17 23:58 97.3 80 18 112/56 94 Nasal Cannula 3.0 03/12/17 23:18 98 Nasal Cannula 2.0 28 03/12/17 23:18 Nasal Cannula 2.0 28 03/12/17 20:00 96.8 80 18 112/58 95 Nasal Cannula 3.0 Intake and Output 03/12/17 03/13/17 19:00 07:00 Intake Total 740 ml Output Total 400 ml 950 ml Balance 340 ml -950 ml Intake Oral 740 ml Output Urine Total 400 ml 950 ml # Voids 1 # Bowel Movements 1 2 General Appearance: WD/WN HEENT: normocephalic Respiratory/Chest: chest wall non-tender Breasts: no masses Cardiovascular: normal peripheral pulses Abdomen: normal bowel sounds, soft, non tender Genitourinary: normal external genitalia 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
--- NOTE | 2017-03-15 15:29 | Discharge Summary ---
Discharge Summary Hospital Course Date of Admission Mar 04, 2017 at 06:12 Date of Discharge Mar 13, 2017 at 13:49 Admitting Diagnosis sepsis, uti HPI Eusebia Mueller is a 46 year old female who was admitted on Mar 04, 2017 at 06: 12 for Sepsis,Urinary Tract Infection Hospital Course [id number] Discharge Discharge Disposition Patient was discharged to Home with Discharge Diagnoses: Dulce Gong NP Mar 15, 2017 15:29
--- NOTE | 2017-03-16 06:47 | Discharge Summary 2 SIG ---
DATE OF ADMISSION: 03/04/2017 DATE OF DISCHARGE: 03/13/2017 CONSULTANTS: Zacarias Ngo M.D. 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 On evaluation at ED, labs showed leukocytosis. WBC was elevated to 21. Urinalysis with pyuria. She had a history of ESBL E. coli and Proteus last month. She had an EKG done, which showed normal sinus rhythm, and chest x-ray showed no consolidation, no effusion, no pneumothorax, and no acute cardiopulmonary disease. There was no evidence of CHF, no evidence of pneumonia. She was admitted to telemetry for sepsis. She was pancultured and was started on ertapenem. She is allergic to penicillin. Vancomycin was discontinued. She had a left sacral unstageable pressure ulcer and the right buttock unstageable pressure ulcer with prior CT scan in January 2017 showing bony erosive changes. Superficial culture showed carbapenem-resistant Acinetobacter, Proteus, and MRSA. She was given local wound care and topical care for wound colonized with Acinetobacter, Proteus, and MRSA. She had been afebrile with resolution of leukocytosis while on treatment for UTI. Chest x-ray showed mild interstitial edema or pneumonitis, appeared to be stable compared to last study. Hypoxemia was assessed to be secondary to restrictive lung disease caused by spina bifida. She was eventually discharged home with home health to continue ertapenem for 10 days. FINAL DIAGNOSES: 1. Sepsis. 2. Spina bifida. 3. Suprapubic catheter. 4. Paraplegia. 5. Restrictive lung disease due to kyphoscoliosis. 6. Complicated urinary tract infection. 7. Sacral unsteageable pressure ulcer, present on admission. 8. Anemia. 9. Ventriculoperitoneal shunt. 10. Right trochanter and ischial tuberosity DTI. DISPOSITION: The patient was discharged home with home health. FOLLOWUP: The patient was advised to follow up with PMD in a week. DISCHARGE MEDICATIONS: Refer to medication list. Chyna Pryor M.D. I have been assigned to dictate discharge summary on this account and I was not involved in the patient's management. Dulce Gong N.P. DR: Brendan JOB#: [id number] CC: IZAIAH
== END 2017-03-13 13:49 | disposition home health service (06) | DRG 872 ==
LOC: ENRESERVDT → ENRESERV → ENRESERVTM → EMR 05:02 → 2E 06:12 → EDBEDREQSVC 06:15 → EDBEDREQ 06:19 → 4W 20:05
DX: A41.9 Sepsis, unspecified organism (principal); L89.150 Pressure ulcer of sacral region, unstageable; G82.20 Paraplegia, unspecified; L89.210 Pressure ulcer of right hip, unstageable; J98.4 Other disorders of lung; Q67.5 Congenital deformity of spine; L89.310 Pressure ulcer of right buttock, unstageable; Q05.4 Unspecified spina bifida with hydrocephalus; N39.0 Urinary tract infection, site not specified; Z98.2 Presence of cerebrospinal fluid drainage device; Z88.0 Allergy status to penicillin; D64.9 Anemia, unspecified; B96.4 Proteus (mirabilis) (morganii) as the cause of diseases classified elsewhere; Z22.39 Carrier of other specified bacterial diseases; Z22.322 Carrier or suspected carrier of Methicillin resistant Staphylococcus aureus; Z43.5 Encounter for attention to cystostomy
CPT/HCPCS: 36415; 71010; 80048; 80053; 80202; 81001; 81003; 82270; 82378; 82550; 82553; 82607; 82746; 83540; 83550; 83605; 83615; 83735; 84100; 84484; 85007; 85025; 85044; 85060; 85610; 85651; 85730; 86140; 87040; 87070; 87086; 87181; 87205; 93005; 94664; 94760; 96360; 96361; 96375

== ENCOUNTER 2017-03-21 17:04 | Inpatient (IN) | payer MEDICARE, MEDICAID ==
[~2017-03-21] VITALS: Ht 152.4 cm; Wt 61.2 kg
[~2017-03-21 17:04] MED LIST changes: +INVANZ1 GM IVPB
[2017-03-21] MEDS ORDERED: Cefepime HCl 1 GM in NS 55 ML IV STA (17:23)
[2017-03-21] MEDS ORDERED: metroNIDAZOLE 500mg 100 ML IV STA (17:23)
[2017-03-21] MEDS ORDERED: Vancomycin 1 GM in NS 275 ML IV ONE (17:30)
--- NOTE | 2017-03-21 18:04 | Emergency Room Report ---
History of Present Illness General Chief Complaint: Upper Respiratory Illness Source: Patient, Medical Record Present Illness HPI The patient is discharged from the hospital on Tuesday 03/13. Antibiotics were stopped at that time. She's had fevers and her urine has been turbid. Also her saturation dropped today to 85% today. She's on oxygen and was discharged on oxygen from the hospital. Her brother denies any cough. She is a sacral decubitus which is followed by a tractor trailer mechanic. Temperature last night was 100. No chills or rigors. No change in bowels. The patient suffers from spina bifida. 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 He doesn't think this is what the problem is although she has some altered mental status recently. She does not answer if pain. These are her discharge diagnoses: FINAL DIAGNOSES: 1. Sepsis. 2. Spina bifida. 3. Suprapubic catheter. 4. Paraplegia. 5. Restrictive lung disease due to kyphoscoliosis. 6. Complicated urinary tract infection. 7. Sacral unsteageable pressure ulcer, present on admission. 8. Anemia. 9. Ventriculoperitoneal shunt. 10. Right trochanter and ischial tuberosity DTI. 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 Reviewed Nursing Documentation: PMH: Agreed, PSxH: Agreed Nursing Documentation-PM Past Medical History: No History, Except For Hx Hypertension: Yes - shunt in the brain Hx Cancer: No Hx Gastrointestinal Problems: No Hx Neurological Problems: Yes - Spina Bifida (Gustavo in place) Hx Cerebrovascular Accident: No Hx Transient Ischemic Attacks: No Hx Dementia: No Hx Alzheimer's Disease: No Hx Parkinson's Disease: No Hx Meningitis: No Hx Encephalitis: No Hx Seizures: No Hx Epilepsy: No Hx Multiple Sclerosis: No Hx Cerebral Palsy: No Hx Amyotrophic Lat Sclerosis: No Hx Guillian-Buckley Syndrome: No Hx Paralysis: Yes - below waist Hx Peripheral Neuropathy: No Hx Spinal Cord Injury: Yes - spinal bifida Hx Head Trauma: No Hx Traumatic Brain Injury: No Hx Memory Loss: No Hx Concentration Difficulty: No Hx Speech Problem: Yes Hx Tremors: No Hx Vertigo: No Hx Headaches: No Hx Aphasia: No Hx Dysphasia: No Hx Numbness: No Hx Weakness: No Hx Fatigue: No Hx Neurologic Surgery: No Hx Brain Shunt: Yes Review of Systems All Other Systems: limited Physical Exam Vital Signs Date Time Temp Pulse Resp B/P (MAP) Pulse Ox O2 Delivery O2 Flow Rate FiO2 03/21/17 17:15 98.6 82 18 100/53 97 Nasal Cannula 2.0 Sp02 EP Interpretation: reviewed, normal General Appearance: no apparent distress, lethargic - but responsive, other, Chronically Ill Head: normocephalic Eyes: bilateral eye PERRL, bilateral eye EOMI - nystagmus ENT: moist mucus membranes - poor dentition Neck: supple Respiratory: lungs clear, normal breath sounds, decreased breath sounds Cardiovascular #1: regular rate, rhythm Cardiovascular #2: 2+ radial (L) Gastrointestinal: normal inspection, normal bowel sounds, non tender, no mass, non-distended, other - suprapubic cath Musculoskeletal: other - shortened LE with paraplegia Neurologic: responsive, DTRs symmetric - hyper upper, motor weakness - LE, other - spasticity upper extrem, nystagmus, occasionally vocalized and repeats phrases spoken to her Psychiatric: depressed affect Skin: warm/dry, other - decubitus sacral Stage 4 Procedures Additional Procedure Procedure Narrative EJ started by REUBEN - bloods drawn Medical Decision Making Diagnostic Impression: Primary Impression: Sepsis Qualified Codes: A41.9 - Sepsis, unspecified organism Additional Impressions: UTI (urinary tract infection) Qualified Codes: T83.510A - Infection and inflammatory reaction due to cystostomy catheter, initial encounter; N39.0 - Urinary tract infection, site not specified Spina bifida Qualified Codes: Q05.4 - Unspecified spina bifida with hydrocephalus Paraplegia Suprapubic catheter Decubitus skin ulcer Qualified Codes: L89.154 - Pressure ulcer of sacral region, stage 4 Restrictive lung disease due to kyphoscoliosis ER Course The patient presents with fever, altered mental status and decreased oxygen saturation. Differential includes sepsis, pneumonia, urinary tract infection with sepsis amongst others. Evaluation with with blood cultures, lactate, EKG. The patient be treated with IV hydration and antibiotics. Very complicated patient needs readmission to the hospital as potential for resistant organisms. Bloods drawn and IV begun by REUBEN. Labs with leukocytosis. CXR no infiltrate. Pyuria. Patient VS improved. Admit telemetry Dr. Pryor. Laboratory Tests Test 03/21/17 18:00 White Blood Count 14.7 K/UL (4.8-10.8) H Red Blood Count 4.42 M/UL (4.20-5.40) Hemoglobin 10.4 G/DL (12.0-16.0) L Hematocrit 32.8 % (37.0-47.0) L Mean Corpuscular Volume 74 FL (80-99) L Mean Corpuscular Hemoglobin 23.6 PG (27.0-31.0) L Mean Corpuscular Hemoglobin Concent 31.8 G/DL (32.0-36.0) L Red Cell Distribution Width 18.8 % (11.6-14.8) H Platelet Count 423 K/UL (150-450) Mean Platelet Volume 5.6 FL (6.5-10.1) L Neutrophils (%) (Auto) 67.5 % (45.0-75.0) Lymphocytes (%) (Auto) 22.8 % (20.0-45.0) Monocytes (%) (Auto) 5.9 % (1.0-10.0) Eosinophils (%) (Auto) 2.9 % (0.0-3.0) Basophils (%) (Auto) 0.9 % (0.0-2.0) Prothrombin Time 10.7 SEC (9.30-11.50) Prothrombin Time INR 1.0 (0.9-1.1) PTT 32 SEC (23-33) Urine Color Yellow Urine Appearance Slightly cloudy Urine pH 6.5 (4.5-8.0) Urine Specific [place] 1.010 (1.005-1.035) Urine Protein 3+ (NEGATIVE) H Urine Glucose (UA) Negative (NEGATIVE) Urine Ketones Negative (NEGATIVE) Urine Occult Blood 4+ (NEGATIVE) H Urine Nitrite Negative (NEGATIVE) Urine Bilirubin Negative (NEGATIVE) Urine Urobilinogen Normal MG/DL (0.0-1.0) Urine Leukocyte Esterase 3+ (NEGATIVE) H Urine RBC 10-15 /HPF (0 - 2) H Urine WBC Tntc /HPF (0 - 2) H Urine Squamous Epithelial Cells Moderate /LPF (NONE/OCC) H Urine Calcium Oxalate Crystals Few /LPF (NONE) Urine Bacteria Moderate /HPF (NONE) H Urine Yeast Moderate /HPF (NONE) H Sodium Level 134 mEQ/L (135-145) L Potassium Level 4.0 mEQ/L (3.4-4.9) Chloride Level 91 mEQ/L (98-107) L Carbon Dioxide Level 36 mEQ/L (20-30) H Anion Gap 7 (5-15) Blood Urea Nitrogen 18 mg/dL (7-23) Creatinine 0.3 mg/dL (0.5-0.9) L Estimate Glomerular Filtration Rate > 60 mL/min (>60) Glucose Level 99 mg/dL (74-106) Lactic Acid Level 0.80 mmol/L (0.66-2.22) Calcium Level 8.7 mg/dL (8.6-10.2) Total Bilirubin 0.2 mg/dL (0.0-1.2) Aspartate Amino Transferase (AST) 9 U/L (5-40) Alanine Aminotransferase (ALT) 6 U/L (3-33) Alkaline Phosphatase 80 U/L (35-104) Total Creatine Kinase 14 U/L (26-140) L Troponin I < 0.30 ng/mL (<=0.30) Pro-B-Type Natriuretic Peptide 289 pg/mL (0-125) H Total Protein 7.8 g/dL (6.6-8.7) Albumin 3.0 g/dL (3.5-5.2) L Globulin 4.8 g/dL Albumin/Globulin Ratio 0.6 (1.0-2.7) L EKG Diagnostic Results Rate: normal Rhythm: NSR ST Segments: no acute changes Rhythm Strip Diag. Results EP Interpretation: yes Rhythm: NSR, no PVC's, no ectopy Chest X-Ray Diagnostic Results Chest X-Ray Diagnostic Results : Chest X-Ray Ordered: Yes # of Views/Limited/Complete: 1 View Indication: Other EP Interpretation: Yes Interpretation: no consolidation, no effusion, no pneumothorax, other - poor inspiration Impression: Other Interpreting ER Provider: signed Perfecto Patel MD Last Vital Signs Date Time Temp Pulse Resp B/P (MAP) Pulse Ox O2 Delivery O2 Flow Rate FiO2 03/22/17 00:30 73 03/22/17 00:00 96.9 16 101/53 100 Nasal Cannula 2.0 Status: improved Disposition: ADMITTED INPATIENT Condition: Serious Referrals: NON PHYSICIAN (PCP) Perfecto Patel M.D. Mar 21, 2017 18:04
[2017-03-21 18:15] VITALS: BP 115/53
[2017-03-21] MEDS ORDERED: Cefepime 1gm vial ONE (18:15)
[2017-03-21 18:23] LABS: BASOPHILS % (AUTO) 0.9 % (0.0-2.0); EOSINOPHILS % (AUTO) 2.9 % (0.0-3.0); LYMPHOCYTES % (AUTO) 22.8 % (20.0-45.0); MEAN CORPUSCULAR HEMOGLOBIN 23.6 PG (27.0-31.0); MEAN CORPUSCULAR HGB CONC 31.8 G/DL (32.0-36.0); MEAN CORPUSCULAR VOLUME 74 FL (80-99); MEAN PLATELET VOLUME 5.6 FL (6.5-10.1); MONOCYTES % (AUTO) 5.9 % (1.0-10.0); NEUTROPHILS % (AUTO) 67.5 % (45.0-75.0); PLATELET COUNT 423 K/UL (150-450); RED BLOOD COUNT 4.42 M/UL (4.20-5.40); RED CELL DISTRIBUTION WIDTH 18.8 % (11.6-14.8); WHITE BLOOD COUNT 14.7 K/UL (4.8-10.8)
[2017-03-21 18:25] LABS: APPEARANCE,URINE SLIGHTLY CLOUDY; KETONES,URINE NEGATIVE (NEGATIVE); LEUKOCYTE ESTERASE ,URINE 3+ (NEGATIVE); NITRITE,URINE NEGATIVE (NEGATIVE); PH,URINE 6.5 (4.5-8.0); PROTEIN,URINE 3+ (NEGATIVE); UROBILINOGEN,URINE NORMAL MG/DL (0.0-1.0)
[2017-03-21 18:33] LABS: SQUAMOUS EPITHELIAL CELL,UR MODERATE /LPF (NONE/OCC); WBC,URINE TNTC /HPF (0 - 2)
[2017-03-21 18:34] LABS: BACTERIA,URINE MODERATE /HPF; CALCIUM OXALATE CRYSTALS,UR FEW /LPF
[2017-03-21 18:35] LABS: YEAST,URINE MODERATE /HPF
[2017-03-21 18:38] LABS: PROTHROMBIN TIME 10.7 SEC (9.30-11.50)
[2017-03-21 18:44] LABS: ALANINE AMINOTRANSFERASE 6 U/L (3-33); ALBUMIN/GLOBULIN RATIO 0.6 (1.0-2.7); ANION GAP 7 (5-15); ASPARTATE AMINO TRANSFERASE 9 U/L (5-40); CALCIUM 8.7 mg/dL (8.6-10.2); CARBON DIOXIDE 36 mEQ/L (20-30); CHLORIDE 91 mEQ/L (98-107); CREATININE 0.3 mg/dL (0.5-0.9); GLOMERULAR FILTRATION RATE > 60 mL/min (>60); HEMOLYSIS 2; SODIUM 134 mEQ/L (135-145); TOTAL PROTEIN 7.8 g/dL (6.6-8.7); TROPONIN I < 0.30 ng/mL (<=0.30)
[2017-03-21 19:22] VITALS: BP 106/52
[2017-03-21] MEDS ORDERED: Vancomycin 1gm inj IVPB ONE ×2 (20:18→20:32)
[2017-03-21 20:45] VITALS: BP 98/54
[2017-03-21] MEDS ORDERED: DuoNeb 0.5-3(2.5)mg/3ml neb HHN PRN (21:45)
[2017-03-21] MEDS ORDERED: Morphine Sulfate 2mg/ml Inj IVP PRN (21:45)
[2017-03-21] MEDS ORDERED: Miralax 17gm pkt ORAL PRN (21:45)
[2017-03-21] MEDS ORDERED: Nitroglycerin Subl 0.4mg tab (Bottle Of 25) SL PRN (21:45)
[2017-03-21 22:02] VITALS: BP 107/32
[2017-03-21 23:00] VITALS: BP 101/53
[2017-03-22 03:52] VITALS: BP 105/69
[2017-03-22] MEDS ORDERED: Vancomycin 1gm inj IVPB ONE (04:07)
[2017-03-22] MEDS: Vancomycin 1 GM in D5W 275 ML IVPB SCH ×2 (04:23→12:39)
[2017-03-22 08:24] VITALS: BP 104/61
[2017-03-22 08:24] LABS: BASOPHILS % (AUTO) 0.8 % (0.0-2.0); EOSINOPHILS % (AUTO) 3.2 % (0.0-3.0); LYMPHOCYTES % (AUTO) 15.2 % (20.0-45.0); MEAN CORPUSCULAR HEMOGLOBIN 22.9 PG (27.0-31.0); MEAN CORPUSCULAR HGB CONC 30.1 G/DL (32.0-36.0); MEAN CORPUSCULAR VOLUME 76 FL (80-99); MEAN PLATELET VOLUME 5.7 FL (6.5-10.1); MONOCYTES % (AUTO) 4.6 % (1.0-10.0); NEUTROPHILS % (AUTO) 76.4 % (45.0-75.0); PLATELET COUNT 367 K/UL (150-450); RED BLOOD COUNT 4.39 M/UL (4.20-5.40); RED CELL DISTRIBUTION WIDTH 18.6 % (11.6-14.8); WHITE BLOOD COUNT 9.6 K/UL (4.8-10.8)
[2017-03-22] MEDS: Heparin 5000 units/ml inj SUBQ SCH ×2 (08:28→20:47)
[2017-03-22 08:47] LABS: ALANINE AMINOTRANSFERASE 7 U/L (3-33); ALBUMIN/GLOBULIN RATIO 0.6 (1.0-2.7); ANION GAP 8 (5-15); ASPARTATE AMINO TRANSFERASE 14 U/L (5-40); CALCIUM 8.5 mg/dL (8.6-10.2); CARBON DIOXIDE 33 mEQ/L (20-30); CHLORIDE 98 mEQ/L (98-107); CREATININE 0.3 mg/dL (0.5-0.9); GLOMERULAR FILTRATION RATE > 60 mL/min (>60); HEMOLYSIS 8; POTASSIUM 3.9 mEQ/L (3.4-4.9); SODIUM 139 mEQ/L (135-145); TOTAL PROTEIN 7.1 g/dL (6.6-8.7)
--- NOTE | 2017-03-22 11:01 | Diagnostic Imaging Report ---
Indication: Dyspnea Comparison: 03/04/17 A single view chest radiograph was obtained. Findings: The heart is enlarged. Pulmonary vascularity is mildly prominent but stable. There is a right-sided DISC RECORDIST shunt. Spinous stabilization alysha noted a from the midthoracic spine into the lumbar spine. Impression: Cardiopulmonary status appears stable. Mild congestion could be present. Please correlate clinically
[2017-03-22 11:51] VITALS: BP 114/60
--- NOTE | 2017-03-22 13:03 | History and Physical ---
History of Present Illness General Date patient seen: Mar 22, 2017 Reason for Hospitalization: Upper Respiratory Illness Present Illness HPI 46 year old female with hx of spina bifida a TECHNICIAN AUTOMATIC shunt discharged from the hospital on Tuesday 03/13 with home Iv abx, she started having fevers and also her saturation dropped today to 85% today. Her brother denies any cough. She has a sacral decubitus which is followed by a lumber carrier operator. Temperature last night was 100. No chills or rigors. No change in bowels. She was tachycardic and admitted to telemetry for further w/u. Allergies: Coded Allergies: PENICILLIN G (Verified Allergy, Unknown, 10/11/16) Medication History Scheduled Ascorbic Acid* (Ascorbic Acid*), 500 MG ORAL TWICE A DAY, (Reported) Docusate Sodium* (Docusate Sodium*), 100 MG ORAL TWICE A DAY, (Reported) Ertapenem Sodium* (INVanz*), 1 GM IVPB Q24H, (Reported) Mirabegron (Myrbetriq), 50 MG PO DAILY, (Reported) Multivitamins* (Multivitamins*), 1 TAB ORAL DAILY, (Reported) Sennosides (Senna), 8.6 MG PO BID, (Reported) Patient History Healthcare decision maker Resuscitation status Full Code Advanced Directive on File No Past Medical/Surgical History Past Medical/Surgical History: (1) Spina bifida (2) Restrictive lung disease due to kyphoscoliosis (3) Paraplegia (4) Decubitus skin ulcer Review of Systems All Other Systems: negative except mentioned in HPI Physical Exam General Appearance: WD/WN Lines, tubes and drains: peripheral HEENT: normocephalic, atraumatic Neck: non-tender, normal alignment, limited range of motion Respiratory/Chest: normal breath sounds Cardiovascular/Chest: normal peripheral pulses, normal rate Last 24 Hour Vital Signs Date Time Temp Pulse Resp B/P (MAP) Pulse Ox O2 Delivery O2 Flow Rate FiO2 03/22/17 11:51 97.7 73 20 114/60 96 Nasal Cannula 2.0 03/22/17 08:24 97.3 77 20 104/61 95 Nasal Cannula 2.0 03/22/17 08:00 70 03/22/17 04:00 73 03/22/17 03:52 97.0 71 18 105/69 98 Nasal Cannula 2.0 03/22/17 00:30 73 03/22/17 00:00 96.9 76 16 101/53 100 Nasal Cannula 2.0 76 76 03/21/17 23:00 96.9 76 16 101/53 100 Nasal Cannula 2.0 76 76 03/21/17 22:02 96.9 78 17 107/32 100 Nasal Cannula 2.0 78 78 03/21/17 20:45 96.9 87 18 98/54 100 Nasal Cannula 2.0 87 03/21/17 19:22 96.9 76 16 106/52 100 Nasal Cannula 2.0 03/21/17 18:15 98.7 72 18 115/53 99 Room Air 03/21/17 17:45 72 19 Nasal Cannula 2.0 03/21/17 17:15 98.6 82 18 100/53 97 Nasal Cannula 2.0 Laboratory Tests Test 03/21/17 18:00 03/22/17 07:30 White Blood Count 14.7 K/UL (4.8-10.8) H 9.6 K/UL (4.8-10.8) Red Blood Count 4.42 M/UL (4.20-5.40) 4.39 M/UL (4.20-5.40) Hemoglobin 10.4 G/DL (12.0-16.0) L 10.1 G/DL (12.0-16.0) L Hematocrit 32.8 % (37.0-47.0) L 33.4 % (37.0-47.0) L Mean Corpuscular Volume 74 FL (80-99) L 76 FL (80-99) L Mean Corpuscular Hemoglobin 23.6 PG (27.0-31.0) L 22.9 PG (27.0-31.0) L Mean Corpuscular Hemoglobin Concent 31.8 G/DL (32.0-36.0) L 30.1 G/DL (32.0-36.0) L Red Cell Distribution Width 18.8 % (11.6-14.8) H 18.6 % (11.6-14.8) H Platelet Count 423 K/UL (150-450) 367 K/UL (150-450) Mean Platelet Volume 5.6 FL (6.5-10.1) L 5.7 FL (6.5-10.1) L Neutrophils (%) (Auto) 67.5 % (45.0-75.0) 76.4 % (45.0-75.0) H Lymphocytes (%) (Auto) 22.8 % (20.0-45.0) 15.2 % (20.0-45.0) L Monocytes (%) (Auto) 5.9 % (1.0-10.0) 4.6 % (1.0-10.0) Eosinophils (%) (Auto) 2.9 % (0.0-3.0) 3.2 % (0.0-3.0) H Basophils (%) (Auto) 0.9 % (0.0-2.0) 0.8 % (0.0-2.0) Prothrombin Time 10.7 SEC (9.30-11.50) Prothromb Time International Ratio 1.0 (0.9-1.1) Activated Partial Thromboplast Time 32 SEC (23-33) Urine Color Yellow Urine Appearance Slightly cloudy Urine pH 6.5 (4.5-8.0) Urine Specific [place] 1.010 (1.005-1.035) Urine Protein 3+ (NEGATIVE) H Urine Glucose (UA) Negative (NEGATIVE) Urine Ketones Negative (NEGATIVE) Urine Occult Blood 4+ (NEGATIVE) H Urine Nitrite Negative (NEGATIVE) Urine Bilirubin Negative (NEGATIVE) Urine Urobilinogen Normal MG/DL (0.0-1.0) Urine Leukocyte Esterase 3+ (NEGATIVE) H Urine RBC 10-15 /HPF (0 - 2) H Urine WBC Tntc /HPF (0 - 2) H Urine Squamous Epithelial Cells Moderate /LPF (NONE/OCC) H Urine Calcium Oxalate Crystals Few /LPF (NONE) Urine Bacteria Moderate /HPF (NONE) H Urine Yeast Moderate /HPF (NONE) H Sodium Level 134 mEQ/L (135-145) L 139 mEQ/L (135-145) Potassium Level 4.0 mEQ/L (3.4-4.9) 3.9 mEQ/L (3.4-4.9) Chloride Level 91 mEQ/L (98-107) L 98 mEQ/L (98-107) Carbon Dioxide Level 36 mEQ/L (20-30) H 33 mEQ/L (20-30) H Anion Gap 7 (5-15) 8 (5-15) Blood Urea Nitrogen 18 mg/dL (7-23) 11 mg/dL (7-23) Creatinine 0.3 mg/dL (0.5-0.9) L 0.3 mg/dL (0.5-0.9) L Estimat Glomerular Filtration Rate > 60 mL/min (>60) > 60 mL/min (>60) Glucose Level 99 mg/dL (74-106) 131 mg/dL (74-106) H Lactic Acid Level 0.80 mmol/L (0.66-2.22) Calcium Level 8.7 mg/dL (8.6-10.2) 8.5 mg/dL (8.6-10.2) L Total Bilirubin 0.2 mg/dL (0.0-1.2) < 0.2 mg/dL (0.0-1.2) Aspartate Amino Transf (AST/SGOT) 9 U/L (5-40) 14 U/L (5-40) Alanine Aminotransferase (ALT/SGPT) 6 U/L (3-33) 7 U/L (3-33) Alkaline Phosphatase 80 U/L (35-104) 83 U/L (35-104) Total Creatine Kinase 14 U/L (26-140) L Troponin I < 0.30 ng/mL (<=0.30) Pro-B-Type Natriuretic Peptide 289 pg/mL (0-125) H Total Protein 7.8 g/dL (6.6-8.7) 7.1 g/dL (6.6-8.7) Albumin 3.0 g/dL (3.5-5.2) L 2.8 g/dL (3.5-5.2) L Globulin 4.8 g/dL 4.3 g/dL Albumin/Globulin Ratio 0.6 (1.0-2.7) L 0.6 (1.0-2.7) L Microbiology Date/Time Source Procedure Growth Status 03/21/17 18:00 Blood Blood Culture - Preliminary Resulted 03/21/17 18:00 Indwelling Cath Urine Culture - Preliminary Resulted 03/22/17 02:00 Back Gram Stain - Final Resulted 03/22/17 02:00 Back Wound Culture Pending Resulted Height (Feet): 5 Height (Inches): 0.00 Weight (Pounds): 135 Medications Current Medications Medications (Trade) Dose Ordered Sig/Sandeep Route PRN Reason Start Time Stop Time Status Last Admin Dose Admin Acetaminophen (Tylenol) 650 mg Q4H PRN ORAL fever 03/21/17 21:45 04/20/17 21:44 Albuterol/ Ipratropium (DuoNeb 0.5-3(2.5)mg/3ml) 3 ml Q4H PRN HHN Shortness of Breath 03/21/17 21:45 03/26/17 21:44 Cefepime HCl 1 gm/ Dextrose 55 ml @ 110 mls/hr Q12HR@0200,1400 IVPB 03/22/17 14:00 03/29/17 13:59 Heparin Sodium (Porcine) (Heparin 5000 units/ml) 5,000 units EVERY 12 HOURS SUBQ 03/22/17 09:00 04/21/17 08:59 03/22/17 08:28 Morphine Sulfate (Morphine Sulfate) 2 mg Q4H PRN IVP Moderate Pain (Pain Scale 4-6) 03/21/17 21:45 03/28/17 21:44 Nitroglycerin (Ntg) 0.4 mg Q5MIN X 3 DOSES PRN SL Prn Chest Pain 03/21/17 21:45 04/20/17 21:44 Ondansetron HCl (Zofran) 4 mg Q6H PRN IVP Nausea & Vomiting 03/21/17 21:45 04/20/17 21:44 Polyethylene Glycol (Miralax) 17 gm DAILYPRN PRN ORAL Constipation 03/21/17 21:45 04/20/17 21:44 Temazepam (Restoril) 15 mg HSPRN PRN ORAL Insomnia 03/21/17 21:45 03/28/17 21:44 Vancomycin HCl (Vanco rx to dose) 1 ea DAILY PRN MISC PER RX PROTOCOL 03/22/17 10:00 04/21/17 09:59 Vancomycin HCl 1 gm/Dextrose 275 ml @ 183.3 mls/ hr Q8HR@0500,1300,2100 IVPB 03/22/17 05:00 03/27/17 04:59 03/22/17 12:39 Assessment/Plan Problem List: (1) Sepsis ICD Codes: A41.9 - Sepsis, unspecified organism SNOMED: 45742578 Qualifiers: Qualified Codes: A41.9 - Sepsis, unspecified organism (2) Decubitus skin ulcer ICD Codes: L89.90 - Pressure ulcer of unspecified site, unspecified stage SNOMED: 495718131 Qualifiers: Qualified Codes: L89.154 - Pressure ulcer of sacral region, stage 4 (3) Paraplegia ICD Codes: G82.20 - Paraplegia, unspecified SNOMED: 83116890 (4) Suprapubic catheter ICD Codes: Z93.59 - Other cystostomy status SNOMED: 302536184, 470100550 (5) Restrictive lung disease due to kyphoscoliosis ICD Codes: J98.4 - Other disorders of lung; M41.9 - Scoliosis, unspecified SNOMED: 553513206 (6) UTI (urinary tract infection) ICD Codes: N39.0 - Urinary tract infection, site not specified SNOMED: 49284681 Qualifiers: Qualified Codes: T83.510A - Infection and inflammatory reaction due to cystostomy catheter, initial encounter; N39.0 - Urinary tract infection, site not specified (7) Spina bifida ICD Codes: Q05.9 - Spina bifida, unspecified SNOMED: 36735800 Qualifiers: Qualified Codes: Q05.4 - Unspecified spina bifida with hydrocephalus Assessment/Plan Iv fluids IV antibiotics dominguez culture ID evaluation wound care dvt prophylaxis AJRET HERNÁNDEZ Mar 22, 2017 13:03
[2017-03-22 15:57] VITALS: BP 109/52
[2017-03-22] MEDS: Cefepime 1gm/D5W 55ml IVPB SCH ×2 (16:08)
--- NOTE | 2017-03-22 17:02 | Infectious Diseases Prog Note ---
Infectious Disease Consult Infectious Disease Consult Infectious Disease Consult INFECTIOUS DISEASE CONSULTATION DATE OF CONSULTATION: 22Mar2017 CONSULTING PHYSICIAN: Zacarias Ngo M.D., MTM&H, CTropMed Covering for Dr. Buck REFERRING PHYSICIAN: Jaret Pryor MD REASON FOR CONSULTATION: Fever, recent abx for UTI HISTORY OF PRESENT ILLNESS: 46y/o female with spina bidida, paraplegia, h/o chronic deep sacral pressure with radiographic evidence of chronic osteomyelitis of sacrum and ilium , recently hospitalized for complicated SP cath associated Proteus UTI requiring admission at [facility], discharged on 03/13/17 on D6/10 of IV ertapenem, now admitted with low grade temps to 100F, turbid urine from SP cath, and acute desats to 85% x1. ID consultation now requested for additional evaluation and management, currently on full D#1 IV vanc/cefepime. she's been on chronic/subacute supplemental O2, patient denies subjective fevers , chills, no change in bowel habits. She has an indwelling SP cath from which a U/A obtained last night demonstrated pyuria with cx pending. evaluated by global process owner now and in the past. aerobic blood cx bottle from admission growing GPC in clusters at <24 hrs culture time. She does have a COMMUNITY HEALTH AGENT shunt known to be fractured/non contiguous for some time, with non contiguous distal part in the abdomen. Also is s/p mid thoracic to lumbar spinal fusion for severe scolosios. 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 PAST MEDICAL HISTORY: 1. Sepsis. 2. Spina bifida. 3. Suprapubic catheter. 4. Paraplegia. 5. Restrictive lung disease due to kyphoscoliosis. 6. Complicated urinary tract infection. 7. Sacral unsteageable pressure ulcer, with prior radiographic sclerotic bony changes suggestive of chronic sacral/ileal osteomyelitis 8. Anemia. 9. Ventriculoperitoneal shunt, non functioning, fractured at level of anterior chest wall 10. Right trochanter and ischial tuberosity DTI. 11. SP catheter complicated Proteus UTI, s/p 10 Days ertapenem completed on 12. chronic dislocation of both hips 13. L nephrolithiasis 14. Hepatosplenomegaly ALLERGIES: PCN G-->reaction unknown. tolerates carbapenem. ANTIBIOTICS: Vancomycin 1gm IV q8hr (03/21-- cefepime 1gm IV q12hr (03/21-- s/p flagyl x1 dose (03/21) Home and hospitalized medications reviewed. SOCIAL HISTORY: currently at SNF. FAMILY HISTORY: Noncontributory REVIEW OF SYSTEMS: 11 point ROS negative except for that mentioned in HPI above. PHYSICAL EXAM: VITAL SIGNS: Tm 98.7F Tc 97.5F bp 109/52 hr 76 97% on 2L NC GENERAL: The patient is in no acute distress. HEAD AND NECK: [place] conjunctivae. Has some mild nystagmus that is horizontal. oral mucosa dry, pharynx w/o exudate or effusion. No icterus. Head normocephalic, neck supple. no pain along COMMUNITY HEALTH AGENT shunt path. NECK: No cervical LAD HEART: S1 and S2, regular, no murmurs, no rubs LUNGS: Clear to auscultation b/l anteriorly. ABDOMEN: Obese, soft, and nontender. no pain along path of COMMUNITY HEALTH AGENT shunt. : There is a suprapubic catheter w/o surrounding erythema EXTREMITIES: Has no edema. no erythema. extremities not cool. SKIN: deferred perirectal exam. Lines: R EJ PIV c/d/i. LABORATORY AND DIAGNOSTIC DATA: 03/21 blood cx: aerobic bottle: GPC clusters (pending speciation) ucx: pending 03/22 sacral wound cx: pending WBC 14.7, hgb 10.4, plt 428, n 67.5%, eos 2.9% PRIOR MICRO PATIENT: ITZEL KEENE LOC: 4W U # : [id number] AGE/SX: 46/F ROOM: [facility] REG : 03/04/[address]: JARET PRYOR : 1970 BED: 1 DIS : STATUS: ADM IN TLOC: SPEC #: [id number] FABIANO: 03/04/17 STATUS: COMP REQ #: [id number] RECD: 03/04/[address]: CHRIS TRIPLETT M.D. SOURCE: URINE CC ENTR: 03/04/[address]: AYESHA: ORDERED: URINE CULT Procedure Result URINE CULTURE Final Organism 1 PROTEUS MIRABILIS COLONY COUNT: >100,000 CFU/ML PRO CODIE M.I.C. RX --------- --- AMPICILLIN <=2 S CEFAZOLIN <=4 S CEFTRIAXONE <=1 S CIPROFLOXACIN >=4 R ERTAPENEM <=0.5 S GENTAMICIN <=1 S LEVOFLOXACIN 4 I TRIMETHOPRIM/SULFA >=320 R AMIKACIN 4 S PIPERACILLIN/TAZOBACTAM <=4 S --------- Specimen: [id number] Collected: 03/05/17 Received: 03/05/17 (Continued) Procedure Result WOUND CULTURE Final (continued) OSVALDO CPLX PRO MIRABI STA AUR MR M.I.C. RX M.I.C. RX M.I.C. RX --------- --- --------- --- --------- --- AMPICILLIN <=2 S CEFAZOLIN 8 S CEFTAZIDIME >=64 R CEFTRIAXONE >=64 R <=1 S CEFEPIME >=64 R CIPROFLOXACIN >=4 R >=4 R >=8 R CLINDAMYCIN 2 I ERYTHROMYCIN >=8 R ERTAPENEM <=0.5 S GENTAMICIN >=16 R <=1 S <=0.5 S LEVOFLOXACIN >=8 R 4 I >=8 R IMIPENEM >=16 R OXACILLIN >=4 R BENZYLPENICILLIN >=0.5 R TETRACYCLINE <=1 S TRIMETHOPRIM/SULFA <=20 S >=320 R <=10 S VANCOMYCIN 1 S AMIKACIN <=2 S 4 S PIPERACILLIN/TAZOBACTAM <=4 S RIFAMPIN <=0.5 S RADIOLOGY: Patient : ITZEL KEENE Referring Physician: Perfecto Patel M.D. ID Number: [id number] Service Date: 03/21/17 : 1970 Report Date: 03/21/17 Gender: F Accession No.: [id number] Location: 2E Procedure: XRAY Chest 1v Indication: Dyspnea Comparison: 03/04/17 A single view chest radiograph was obtained. Findings: The heart is enlarged. Pulmonary vascularity is mildly prominent but stable. There is a right-sided COMMUNITY HEALTH AGENT shunt. Spinous stabilization alysha noted a from the midthoracic spine into the lumbar spine. Impression: Cardiopulmonary status appears stable. Mild congestion could be present. Please correlate clinically ASSESSMENT AND PLAN ASSESSMENT: Admitted with probable recurrent SP cath associated urosepsis, now with GPC clusters in blood concerning for skin (eg. chronic sacral wound source). she does have a COMMUNITY HEALTH AGENT shunt that is fractured at upper abd level w/o any change in neurological status and no prior h/o SERVICE DESK TECHNICIAN infection. If this gram positive cocci in blood ends up being staph aureus, will need TTE, consider imaging of her spinal hardware, and consider eval of COMMUNITY HEALTH AGENT shunt. sepsis leukocytosis low grade fever, resolving pyuria, pending urine cx, probable suprapubic catheter associated complicated UTI gram positive cocci bacteremia, pending identification; no indwelling PICC or CVC h/o Proteus UTI, complicated, s/p 10D ertapenem completed on 17mar2017 Left sacral unstageable pressure ulcer and Right buttock unstageable pressure ulcer; prior CT in January2017 demonstrated bony erosive changes. superficial culture growing carbapenem resistant (amikacin and tmp/smx susceptible) ACB, Proteus, and MRSA PCXR negative for infiltrate or effusion h/o PCN G allergy, tolerating carbapenem spina bifida w/ paraplegic suprapubic urinary catheter COMMUNITY HEALTH AGENT shunt; h/o fractured distal tip anemia PLAN: --continue empiric IV cefepime 1gm q12hr and IV vancomycin D#1. --f/u 03/21 blood cx final result --surveillance blood cx now --renal u/s to r/o pyelonephritis or evidence of infected L renal stone --f/u 03/21 urine cx --ESR and CRP --s/p wound care consult, receiving topical care, has colonization of wound with ACB, proteus, and MRSA previously, with repeat culture pending. If wound fails to show any improvement with chronic wound care, and if her current bacteremia ends up being clearly secondary to this wound, may need outpatient repeat surgical evaluation with bone biopsy for histopath and culture and eventual flap coverage. --monitor CBC --monitor SP urine cath output --monitor temp curve Thank you for this consultation. Will continue to follow. Covering for Dr. Buck, please call me with questions, Zacarias Ngo M.D. Mar 22, 2017 17:02
--- NOTE | 2017-03-22 18:28 | Consultation ---
History of Present Illness General Date patient seen: Mar 22, 2017 Time patient seen: 18:25 Chief Complaint: Upper Respiratory Illness Referring physician: omayra Reason for Consultation: SP tube Present Illness HPI 46 yo female hx of MRCP, spina bifida, SP tube dependence. Re-admission for sepsis workup. Etiology unclear right now, possibly decubitus ulcer infection vs. UTI. Patient minimally communicative. Allergies: Coded Allergies: PENICILLIN G (Verified Allergy, Unknown, 10/11/16) Medication History Scheduled Ascorbic Acid* (Ascorbic Acid*), 500 MG ORAL TWICE A DAY, (Reported) Docusate Sodium* (Docusate Sodium*), 100 MG ORAL TWICE A DAY, (Reported) Ertapenem Sodium* (INVanz*), 1 GM IVPB Q24H, (Reported) Mirabegron (Myrbetriq), 50 MG PO DAILY, (Reported) Multivitamins* (Multivitamins*), 1 TAB ORAL DAILY, (Reported) Sennosides (Senna), 8.6 MG PO BID, (Reported) Patient History Limited by: language barrier, medical condition History Provided By: Family Member, Medical Record Healthcare decision maker Resuscitation status Full Code Advanced Directive on File No Past Medical/Surgical History Past Medical/Surgical History: (1) Decubitus skin ulcer (2) Paraplegia (3) Suprapubic catheter (4) Spina bifida Review of Systems Constitutional: Denies: no symptoms, see HPI, chills, sweats, fever, malaise, weakness, other All Other Systems: negative except mentioned in HPI Physical Exam General Appearance: no apparent distress Cardiovascular/Chest: normal rate Abdomen: other - obese, SP tube site clean dry intact Last 24 Hour Vital Signs Date Time Temp Pulse Resp B/P (MAP) Pulse Ox O2 Delivery O2 Flow Rate FiO2 03/22/17 16:00 79 03/22/17 15:57 97.5 76 20 109/52 97 Nasal Cannula 2.0 03/22/17 12:00 75 03/22/17 11:51 97.7 73 20 114/60 96 Nasal Cannula 2.0 03/22/17 09:50 75 19 Nasal Cannula 2.0 03/22/17 09:50 97 Nasal Cannula 2.0 28 03/22/17 09:50 Nasal Cannula 2.0 28 03/22/17 08:24 97.3 77 20 104/61 95 Nasal Cannula 2.0 03/22/17 08:00 70 03/22/17 04:00 73 03/22/17 03:52 97.0 71 18 105/69 98 Nasal Cannula 2.0 03/22/17 00:30 73 03/22/17 00:00 96.9 76 16 101/53 100 Nasal Cannula 2.0 76 76 03/21/17 23:00 96.9 76 16 101/53 100 Nasal Cannula 2.0 76 76 03/21/17 22:02 96.9 78 17 107/32 100 Nasal Cannula 2.0 78 78 03/21/17 20:45 96.9 87 18 98/54 100 Nasal Cannula 2.0 87 03/21/17 19:22 96.9 76 16 106/52 100 Nasal Cannula 2.0 Intake and Output 03/22/17 03/23/17 19:00 07:00 Intake Total 360 ml Output Total 400 ml Balance -40 ml Intake Oral 360 ml Output Urine Total 400 ml Laboratory Tests Test 03/22/17 07:30 White Blood Count 9.6 K/UL (4.8-10.8) Red Blood Count 4.39 M/UL (4.20-5.40) Hemoglobin 10.1 G/DL (12.0-16.0) L Hematocrit 33.4 % (37.0-47.0) L Mean Corpuscular Volume 76 FL (80-99) L Mean Corpuscular Hemoglobin 22.9 PG (27.0-31.0) L Mean Corpuscular Hemoglobin Concent 30.1 G/DL (32.0-36.0) L Red Cell Distribution Width 18.6 % (11.6-14.8) H Platelet Count 367 K/UL (150-450) Mean Platelet Volume 5.7 FL (6.5-10.1) L Neutrophils (%) (Auto) 76.4 % (45.0-75.0) H Lymphocytes (%) (Auto) 15.2 % (20.0-45.0) L Monocytes (%) (Auto) 4.6 % (1.0-10.0) Eosinophils (%) (Auto) 3.2 % (0.0-3.0) H Basophils (%) (Auto) 0.8 % (0.0-2.0) Sodium Level 139 mEQ/L (135-145) Potassium Level 3.9 mEQ/L (3.4-4.9) Chloride Level 98 mEQ/L (98-107) Carbon Dioxide Level 33 mEQ/L (20-30) H Anion Gap 8 (5-15) Blood Urea Nitrogen 11 mg/dL (7-23) Creatinine 0.3 mg/dL (0.5-0.9) L Estimat Glomerular Filtration Rate > 60 mL/min (>60) Glucose Level 131 mg/dL (74-106) H Calcium Level 8.5 mg/dL (8.6-10.2) L Total Bilirubin < 0.2 mg/dL (0.0-1.2) Aspartate Amino Transf (AST/SGOT) 14 U/L (5-40) Alanine Aminotransferase (ALT/SGPT) 7 U/L (3-33) Alkaline Phosphatase 83 U/L (35-104) Total Protein 7.1 g/dL (6.6-8.7) Albumin 2.8 g/dL (3.5-5.2) L Globulin 4.3 g/dL Albumin/Globulin Ratio 0.6 (1.0-2.7) L Microbiology Date/Time Source Procedure Growth Status 03/22/17 02:00 Back Gram Stain - Final Resulted 03/22/17 02:00 Back Wound Culture Pending Resulted Height (Feet): 5 Height (Inches): 0.00 Weight (Pounds): 135 Medications Current Medications Medications (Trade) Dose Ordered Sig/Sandeep Route PRN Reason Start Time Stop Time Status Last Admin Dose Admin Acetaminophen (Tylenol) 650 mg Q4H PRN ORAL fever 03/21/17 21:45 04/20/17 21:44 Albuterol/ Ipratropium (DuoNeb 0.5-3(2.5)mg/3ml) 3 ml Q4H PRN HHN Shortness of Breath 03/21/17 21:45 03/26/17 21:44 Cefepime HCl 1 gm/ Dextrose 55 ml @ 110 mls/hr Q12HR@0200,1400 IVPB 03/22/17 14:00 03/29/17 13:59 03/22/17 16:08 Heparin Sodium (Porcine) (Heparin 5000 units/ml) 5,000 units EVERY 12 HOURS SUBQ 03/22/17 09:00 04/21/17 08:59 03/22/17 08:28 Morphine Sulfate (Morphine Sulfate) 2 mg Q4H PRN IVP Moderate Pain (Pain Scale 4-6) 03/21/17 21:45 03/28/17 21:44 Nitroglycerin (Ntg) 0.4 mg Q5MIN X 3 DOSES PRN SL Prn Chest Pain 03/21/17 21:45 04/20/17 21:44 Ondansetron HCl (Zofran) 4 mg Q6H PRN IVP Nausea & Vomiting 03/21/17 21:45 04/20/17 21:44 Polyethylene Glycol (Miralax) 17 gm DAILYPRN PRN ORAL Constipation 03/21/17 21:45 04/20/17 21:44 Temazepam (Restoril) 15 mg HSPRN PRN ORAL Insomnia 03/21/17 21:45 03/28/17 21:44 Vancomycin HCl (Vanco rx to dose) 1 ea DAILY PRN MISC PER RX PROTOCOL 03/22/17 10:00 04/21/17 09:59 Vancomycin HCl 1 gm/Dextrose 275 ml @ 183.3 mls/ hr Q8HR@0500,1300,2100 IVPB 03/22/17 05:00 03/27/17 04:59 03/22/17 12:39 Objective Narrative Procedure: under sterile conditions old SP tube removed and replaced with [address] with 20 mL water in balloon. Bladder irrigated, minimal debris found. Assessment/Plan Status: stable Assessment/Plan 46 yo female with multiple medical conditions, possible sepsis. UTI could be source, old SP tube was about 3 weeks old. Changed and bladder irrigated. Will allow hospitalist and ID team to continue further workup. 1. continue monthly SP tube changes. Eris Devi M.D. Mar 22, 2017 18:28
[2017-03-22 20:00] VITALS: BP 121/72
--- NOTE | 2017-03-22 21:21 | Wound Care Consultation ---
Wound Assessment Wound Assessment #1: Wound Number: 1 Wound Present on Admission: Yes New Wound: No Status Change of Wound: No Wound Location Body Site Modif: right Wound Location Body Site: buttocks Wound Type: pressure ulcer Alyssa Test: Does not Alyssa Pressure Ulcer Stage: IV/unstageable Wound Thickness: Full Thickness Wound Length: 10.0 Wound Width: 7.5 Wound Depth: 0.5 Percent of Wound [place]/Red: 70 Percent of Wound Bed Yellow/Wh: 20 Percent of Wound Purple/Maroon: 10 Wound Drainage Amount: Moderate Wound Drainage Odor: None/Absent Tissue Surrounding Wound: Macerated Wound Undermining at 6:00: 0.5 Wound Undermining at 9:00: 0.5 Wound General Appearance: Reddened, Draining Wound Assessment #2: Wound Number: 2 Wound Present on Admission: Yes New Wound: No Status Change of Wound: No Wound Location Body Site Modif: mid Wound Location Body Site: sacral - extended to left buttock Wound Type: pressure ulcer Alyssa Test: Does not Alyssa Pressure Ulcer Stage: III - scattered Wound Thickness: Full Thickness Wound Length: 10.0 Wound Width: 5.5 Wound Depth: 0.2 Percent of Wound [place]/Red: 80 Percent of Wound Bed Yellow/Wh: 20 Wound Drainage Description: Serosanguineous Wound Drainage Amount: Moderate Wound Drainage Odor: None/Absent Tissue Surrounding Wound: Macerated Wound General Appearance: Reddened, Draining Wound Assessment #3: Wound Number: 3 Wound Present on Admission: Yes New Wound: No Status Change of Wound: No Wound Location Body Site Modif: left Wound Location Body Site: trochanter Wound Type: pressure ulcer Alyssa Test: Does not Alyssa Pressure Ulcer Stage: deep tissue injury Wound Thickness: Full Thickness Wound Length: 2.5 Wound Width: 3.0 Wound Depth: utd Percent of Wound Purple/Maroon: 100 Wound Drainage Amount: None Wound Drainage Odor: None/Absent Tissue Surrounding Wound: Erythemic Wound General Appearance: Reddened Wound Comment #1 Sacral scattered stage III pressure ulcer #2 Right buttock stage IV pressure ulcer #3 Left trochanter DTI pressure ulcer Recommendation -Mid sacral stage III pressure ulcer extended to left buttock and Right buttock stage IV pressure ulcer Cleanse with saline, pat dry, apply Triad cream to periwound area, apply Therahoney to wound bed, apply calcium alginate, cover with bordered gauze daily and PRN soiled/dislodged. -Local wound per protocol for DTI pressure ulcer on Left trochanter -Low air loss mattress -Optimize nutrition -Keep clean and dry -Turn and reposition -Offload both heels -Heel protector on both heels -Assess and f/u accordingly for any changes YANN OWEN RN Mar 22, 2017 21:21
[2017-03-23] VITALS: BP 133/74
[2017-03-23] MEDS: Cefepime 1gm/D5W 55ml IVPB SCH ×4 (01:52→13:59)
[2017-03-23 04:00] VITALS: BP 112/65
[2017-03-23 08:00] VITALS: BP 115/74
[2017-03-23] MEDS: Heparin 5000 units/ml inj SUBQ SCH ×2 (08:25→20:40)
--- NOTE | 2017-03-23 11:56 | Diagnostic Imaging Report ---
Indication:Elevated Bun and Creatinine. History of pyelonephritis. Suprapubic catheter. Technique: Grayscale and duplex Doppler imaging of the kidneys performed. Comparison: None Findings: There is no obvious hydronephrosis or renal abscess identified. Evaluation of the kidneys in the setting of a infection is limited by ultrasound. Generally an abscess will be visible. However bacterial nephritis, even severe may be undetectable by ultrasound. Generally, contrast-enhanced CT is a much better exam in the setting of infection. There is an apparent stent partially visualized within the left kidney at the level of the renal pelvis. The bladder is nondistended on this examination. There is a suprapubic catheter noted. The right kidney measures about 12 cm. The left kidney measures about 10 cm in length. Impression: Negative ultrasound evaluation of the kidneys. No obvious renal abscess. Apparent left ureteral stent only imaged at the level the renal pelvis. Suprapubic catheter. Bladder nondistended.
[2017-03-23 12:00] VITALS: BP 123/75
--- NOTE | 2017-03-23 12:21 | Pulmonology Progress Note ---
Assessment/Plan Problems: (1) Sepsis (2) Decubitus skin ulcer (3) Paraplegia (4) Suprapubic catheter (5) Restrictive lung disease due to kyphoscoliosis (6) UTI (urinary tract infection) (7) Spina bifida Assessment/Plan IV abx vital signs better check cultures dvt prophylaxis suprapubic catheter was changed yesterday. Subjective Interval Events: awake comfortable Allergies: Coded Allergies: PENICILLIN G (Verified Allergy, Unknown, 10/11/16) Objective Last 24 Hour Vital Signs Date Time Temp Pulse Resp B/P (MAP) Pulse Ox O2 Delivery O2 Flow Rate FiO2 03/23/17 08:00 83 03/23/17 08:00 97.6 83 21 115/74 98 Nasal Cannula 2.0 03/23/17 06:36 98 Nasal Cannula 2.0 03/23/17 06:36 64 17 Nasal Cannula 2.0 03/23/17 06:36 Nasal Cannula 2.0 03/23/17 04:00 77 03/23/17 04:00 97.0 82 20 112/65 89 Nasal Cannula 2.0 03/23/17 00:00 97.0 77 21 133/74 97 Nasal Cannula 2.0 03/23/17 00:00 76 03/22/17 20:00 85 03/22/17 20:00 97.7 86 20 121/72 97 Nasal Cannula 2.0 03/22/17 16:00 79 03/22/17 15:57 97.5 76 20 109/52 97 Nasal Cannula 2.0 General Appearance: WD/WN HEENT: normocephalic, atraumatic Respiratory/Chest: chest wall non-tender, lungs clear Cardiovascular: normal peripheral pulses, normal rate Abdomen: normal bowel sounds, soft, non tender Genitourinary: normal external genitalia Extremities: no cyanosis Skin: no rash Microbiology Date/Time Source Procedure Growth Status 03/21/17 18:15 Blood Blood Culture - Preliminary NO GROWTH AFTER 24 HOURS Resulted 03/21/17 18:00 Blood Blood Culture - Preliminary Staphylococcus Sp Coag Neg Resulted 03/21/17 18:00 Indwelling Cath Urine Culture - Preliminary Gram Negative Bacillus 1 Resulted 03/22/17 02:00 Back Gram Stain - Final Resulted 03/22/17 02:00 Wound Culture - Preliminary Staphylococcus Aureus Resulted 03/21/17 18:17 Rectum VRE Culture - Final Enterococcus Faecalis - Vre Complete Laboratory Tests 03/22/17 19:45: Erythrocyte Sedimentation Rate 98H, C-Reactive Protein, Quantitative 5.0H, Vancomycin Level Trough 28.6H Current Medications Medications (Trade) Dose Ordered Sig/Sandeep Route PRN Reason Start Time Stop Time Status Last Admin Dose Admin Acetaminophen (Tylenol) 650 mg Q4H PRN ORAL fever 03/21/17 21:45 04/20/17 21:44 Albuterol/ Ipratropium (DuoNeb 0.5-3(2.5)mg/3ml) 3 ml Q4H PRN HHN Shortness of Breath 03/21/17 21:45 03/26/17 21:44 Cefepime HCl 1 gm/ Dextrose 55 ml @ 110 mls/hr Q12HR@0200,1400 IVPB 03/22/17 14:00 03/29/17 13:59 03/23/17 01:52 Heparin Sodium (Porcine) (Heparin 5000 units/ml) 5,000 units EVERY 12 HOURS SUBQ 03/22/17 09:00 04/21/17 08:59 03/23/17 08:25 Morphine Sulfate (Morphine Sulfate) 2 mg Q4H PRN IVP Moderate Pain (Pain Scale 4-6) 03/21/17 21:45 03/28/17 21:44 Nitroglycerin (Ntg) 0.4 mg Q5MIN X 3 DOSES PRN SL Prn Chest Pain 03/21/17 21:45 04/20/17 21:44 Ondansetron HCl (Zofran) 4 mg Q6H PRN IVP Nausea & Vomiting 03/21/17 21:45 04/20/17 21:44 Polyethylene Glycol (Miralax) 17 gm DAILYPRN PRN ORAL Constipation 03/21/17 21:45 04/20/17 21:44 Temazepam (Restoril) 15 mg HSPRN PRN ORAL Insomnia 03/21/17 21:45 03/28/17 21:44 Vancomycin HCl (Vanco rx to dose) 1 ea DAILY PRN MISC PER RX PROTOCOL 03/22/17 10:00 04/21/17 09:59 JARET HERNÁNDEZ Mar 23, 2017 12:21
--- NOTE | 2017-03-23 15:54 | Infectious Diseases Prog Note ---
Assessment/Plan Assessment/Plan ASSESSMENT: Admitted with probable recurrent SP cath associated gram negative urosepsis, s/ p change of SP cath yesterday, with resolution of low grade fevers and leukocytosis. admission blood cx growing coag neg staph both bottle from one set and second set ngtd at >24 hrs. 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 She is responding to treatment for SP cath associated urosepsis, s/p cath change yesterday, pending speciation of this urinary pathogen. sepsis SP cath associated gram negative complicated UTI s/p renal u/s negative for abscess or infected stone. does have a ureteral stent. leukocytosis, resolved low grade fever, resolved pyuria, pending urine cx, probable suprapubic catheter associated complicated UTI CoNS from one blood cx, suspect contaminant; no indwelling PICC or CVC h/o Proteus UTI, complicated, s/p 10D ertapenem completed on 17mar2017 Left sacral unstageable pressure ulcer and Right buttock unstageable pressure ulcer; prior CT in January2017 demonstrated bony erosive changes. superficial culture growing carbapenem resistant (amikacin and tmp/smx susceptible) ACB, Proteus, and MRSA PCXR negative for infiltrate or effusion elevated inflammatory markers h/o PCN G allergy, tolerated carbapenem, tolerating cephalosporin spina bifida w/ paraplegic suprapubic urinary catheter LICENSED MORTGAGE LOAN OFFICER shunt; h/o fractured distal tip anemia PLAN: --continue empiric IV cefepime 1gm q12hr and IV vancomycin D#2. --f/u 03/21 blood cx final result, the other set remains negative at 48 hrs. --f/u 03/22 surveillance blood cx --f/u 03/21 urine cx --s/p wound care consult, receiving topical care, has colonization of wound with ACB, proteus, and MRSA previously, with repeat culture with a staph aureus pending sens. If wound fails to show any improvement with chronic wound care , may need outpatient repeat surgical evaluation with bone biopsy for histopath and culture and eventual flap coverage. isolated cons from blood cx not associated with this wound. --monitor CBC --monitor SP urine cath output --monitor temp curve further abx recs pending identification of urinary pathogen. if 2nd set of blood cx from 03/11 remains neg at >72 hrs and surveillance blood cx from 03/22 neg at >48 hrs, will consider d/c vancomycin over the weekend. Subjective Constitutional: Reports: no symptoms Respiratory: Reports: no symptoms Gastrointestinal/Abdominal: Reports: no symptoms Allergies: Coded Allergies: PENICILLIN G (Verified Allergy, Unknown, 10/11/16) Objective Vital Signs Last 24 Hour Vital Signs Date Time Temp Pulse Resp B/P (MAP) Pulse Ox O2 Delivery O2 Flow Rate FiO2 03/23/17 12:00 86 03/23/17 12:00 98.1 85 19 123/75 95 Nasal Cannula 2.0 03/23/17 08:00 83 03/23/17 08:00 97.6 83 21 115/74 98 Nasal Cannula 2.0 03/23/17 06:36 98 Nasal Cannula 2.0 03/23/17 06:36 64 17 Nasal Cannula 2.0 03/23/17 06:36 Nasal Cannula 2.0 03/23/17 04:00 77 03/23/17 04:00 97.0 82 20 112/65 89 Nasal Cannula 2.0 03/23/17 00:00 97.0 77 21 133/74 97 Nasal Cannula 2.0 03/23/17 00:00 76 03/22/17 20:00 85 03/22/17 20:00 97.7 86 20 121/72 97 Nasal Cannula 2.0 03/22/17 16:00 79 03/22/17 15:57 97.5 76 20 109/52 97 Nasal Cannula 2.0 Height (Feet): 5 Height (Inches): 0.00 Weight (Pounds): 135 Objective GENERAL: The patient is in no acute distress. HEAD AND NECK: [place] conjunctivae. Has some mild nystagmus that is horizontal. oral mucosa dry, pharynx w/o exudate or effusion. No icterus. Head normocephalic, neck supple. no pain along LICENSED MORTGAGE LOAN OFFICER shunt path. NECK: No cervical LAD HEART: S1 and S2, regular, no murmurs, no rubs LUNGS: Clear to auscultation b/l anteriorly. ABDOMEN: Obese, soft, and nontender. no pain along path of LICENSED MORTGAGE LOAN OFFICER shunt. : There is a suprapubic catheter w/o surrounding erythema EXTREMITIES: Has no edema. no erythema. extremities not cool. SKIN: deferred perirectal exam. Lines: R EJ PIV c/d/i. Microbiology Date/Time Source Procedure Growth Status 03/21/17 18:15 Blood Blood Culture - Preliminary NO GROWTH AFTER 24 HOURS Resulted 03/21/17 18:00 Blood Blood Culture - Preliminary Staphylococcus Sp Coag Neg Resulted 03/21/17 18:00 Indwelling Cath Urine Culture - Preliminary Gram Negative Bacillus 1 Resulted 03/22/17 02:00 Back Gram Stain - Final Resulted 03/22/17 02:00 Wound Culture - Preliminary Staphylococcus Aureus Resulted 03/21/17 18:17 Rectum VRE Culture - Final Enterococcus Faecalis - Vre Complete Laboratory Tests Test 03/22/17 19:45 Erythrocyte Sedimentation Rate 98 MM/HR (0-20) H C-Reactive Protein, Quantitative 5.0 mg/dL (< 0.5) H Vancomycin Level Trough 28.6 ug/mL (5.0-12.0) H Patient : ITZEL KEENE Referring Physician: Zacarias Ngo M.D. ID Number: [id number] Service Date: 03/22/17 : 1970 Report Date: 03/22/17 Gender: F Accession No.: [id number] Location: Procedure: US Renal Indication:Elevated Bun and Creatinine. History of pyelonephritis. Suprapubic catheter. Technique: Grayscale and duplex Doppler imaging of the kidneys performed. Comparison: None Findings: There is no obvious hydronephrosis or renal abscess identified. Evaluation of the kidneys in the setting of a infection is limited by ultrasound. Generally an abscess will be visible. However bacterial nephritis, even severe may be undetectable by ultrasound. Generally, contrast-enhanced CT is a much better exam in the setting of infection. There is an apparent stent partially visualized within the left kidney at the level of the renal pelvis. The bladder is nondistended on this examination. There is a suprapubic catheter noted. The right kidney measures about 12 cm. The left kidney measures about 10 cm in length. Impression: Negative ultrasound evaluation of the kidneys. No obvious renal abscess. Apparent left ureteral stent only imaged at the level the renal pelvis. Suprapubic catheter. Bladder nondistended. Current Medications Medications (Trade) Dose Ordered Sig/Sandeep Route PRN Reason Start Time Stop Time Status Last Admin Dose Admin Acetaminophen (Tylenol) 650 mg Q4H PRN ORAL fever 03/21/17 21:45 04/20/17 21:44 Albuterol/ Ipratropium (DuoNeb 0.5-3(2.5)mg/3ml) 3 ml Q4H PRN HHN Shortness of Breath 03/21/17 21:45 03/26/17 21:44 Cefepime HCl 1 gm/ Dextrose 55 ml @ 110 mls/hr Q12HR@0200,1400 IVPB 03/22/17 14:00 03/29/17 13:59 03/23/17 13:59 Heparin Sodium (Porcine) (Heparin 5000 units/ml) 5,000 units EVERY 12 HOURS SUBQ 03/22/17 09:00 04/21/17 08:59 03/23/17 08:25 Morphine Sulfate (Morphine Sulfate) 2 mg Q4H PRN IVP Moderate Pain (Pain Scale 4-6) 03/21/17 21:45 03/28/17 21:44 Nitroglycerin (Ntg) 0.4 mg Q5MIN X 3 DOSES PRN SL Prn Chest Pain 03/21/17 21:45 04/20/17 21:44 Ondansetron HCl (Zofran) 4 mg Q6H PRN IVP Nausea & Vomiting 03/21/17 21:45 04/20/17 21:44 Polyethylene Glycol (Miralax) 17 gm DAILYPRN PRN ORAL Constipation 03/21/17 21:45 04/20/17 21:44 Temazepam (Restoril) 15 mg HSPRN PRN ORAL Insomnia 03/21/17 21:45 03/28/17 21:44 Vancomycin HCl (Vanco rx to dose) 1 ea DAILY PRN MISC PER RX PROTOCOL 03/22/17 10:00 04/21/17 09:59 Zacarias Ngo M.D. Mar 23, 2017 15:54
[2017-03-23 16:00] VITALS: BP 134/76
[2017-03-23 20:13] VITALS: BP 130/82
[2017-03-23] MEDS ORDERED: Vancomycin 1250mg/D5W 250ml 250 ML IVPB SCH (22:00)
[2017-03-24 00:02] VITALS: BP 115/64
[2017-03-24] MEDS: Cefepime 1gm/D5W 55ml IVPB SCH ×2 (01:50)
[2017-03-24 04:02] VITALS: BP 108/60
[2017-03-24] MEDS ORDERED: Nitroglycerin Subl 0.4mg tab (Bottle Of 25) SL PRN (06:45)
[2017-03-24] MEDS ORDERED: Morphine Sulfate 2mg/ml Inj IVP PRN (07:00)
[2017-03-24] MEDS ORDERED: Miralax 17gm pkt ORAL PRN (07:00)
[2017-03-24] MEDS ORDERED: DuoNeb 0.5-3(2.5)mg/3ml neb HHN PRN (07:15)
[2017-03-24 08:00] VITALS: BP 112/61
[2017-03-24] MEDS ORDERED: Vancomycin 750mg/NS 250ml 250 ML IVPB SCH (09:00)
[2017-03-24] MEDS: Heparin 5000 units/ml inj SUBQ SCH ×2 (09:38→21:39)
[2017-03-24] MEDS ORDERED: NS 275ml ONE ×2 (09:46→16:06)
[2017-03-24] MEDS ORDERED: D5W 275ml ONE (09:46)
[2017-03-24] MEDS ORDERED: Tubing IV Secondary IV ONE ×2 (09:46→16:06)
[2017-03-24] MEDS ORDERED: Sterile Water Irrig 1000ml IRRIG ONE (09:46)
[2017-03-24] MEDS: Vancomycin 750mg/NS 250ml 250 ML IVPB SCH ×2 (10:37→21:29)
[2017-03-24 12:00] VITALS: BP 123/73
--- NOTE | 2017-03-24 13:52 | Infectious Diseases Prog Note ---
Assessment/Plan Assessment/Plan ASSESSMENT: Admitted with SP cath associated stenotrophomonas complicated UTI, s/p change of SP cath 03/22/17, with resolution of low grade fevers and leukocytosis. admission blood cx growing coag neg staph both bottle from one set and second set ngtd at >48 hrs, and surveillance blood cx from 03/22 ngtd. 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 She is responding to treatment for SP cath associated urosepsis, s/p cath change, and will narrow therapy now. drug of choice for Stenotrophomas is tmp/smx. sepsis SP cath associated stenotrophomas UTI s/p renal u/s negative for abscess or infected stone. does have a L ureteral stent. leukocytosis, resolved low grade fever, resolved CoNS from one blood cx, suspect contaminant; no indwelling PICC or CVC h/o Proteus UTI, complicated, s/p 10D ertapenem completed on 17mar2017 Left sacral unstageable pressure ulcer and Right buttock unstageable pressure ulcer; prior CT in January2017 demonstrated bony erosive changes. superficial culture growing carbapenem resistant (amikacin and tmp/smx susceptible) ACB, Proteus, and MRSA PCXR negative for infiltrate or effusion elevated inflammatory markers h/o PCN G allergy, tolerated carbapenem, tolerating cephalosporin spina bifida w/ paraplegic suprapubic urinary catheter DIETETIC INTERN shunt; h/o fractured distal tip anemia PLAN: --D/c empiric IV cefepime 1gm q12hr (D#3) now --Continue IV vancomycin D#3, plan to d/c on sunday after 5 days therapy if surveillance blood cx remains negative --Start tmp/smx DS suspension twice daily for 14 days, D#0 for the stenotrophomas UTI --f/u 03/22 surveillance blood cx --s/p wound care consult, receiving topical care, has colonization of wound with ACB, proteus, and MRSA previously, with repeat culture with MRSA (tmp/smx sensitive) considered colonized. If wound fails to show any improvement with chronic wound care, may need outpatient repeat surgical evaluation with bone biopsy for histopath and culture and eventual flap coverage. isolated cons from blood cx not associated with this wound. --monitor CBC --monitor SCr, check BMP in AM. --monitor SP urine cath output --monitor temp curve Subjective Constitutional: Reports: no symptoms Gastrointestinal/Abdominal: Reports: no symptoms Genitourinary: Reports: no symptoms Allergies: Coded Allergies: PENICILLIN G (Verified Allergy, Unknown, 10/11/16) Objective Vital Signs Last 24 Hour Vital Signs Date Time Temp Pulse Resp B/P (MAP) Pulse Ox O2 Delivery O2 Flow Rate FiO2 03/24/17 12:00 98.2 92 19 123/73 94 Nasal Cannula 2.0 03/24/17 08:00 Nasal Cannula 2.0 28 03/24/17 08:00 95 Nasal Cannula 2.0 28 03/24/17 08:00 97.8 83 19 112/61 97 Nasal Cannula 2.0 03/24/17 07:58 82 20 Nasal Cannula 2.0 28 03/24/17 04:02 97.7 81 22 108/60 96 Nasal Cannula 2.0 03/24/17 00:02 98.1 87 17 115/64 96 Room Air 03/24/17 00:00 89 03/23/17 20:13 97.9 91 20 130/82 94 Nasal Cannula 2.0 03/23/17 20:00 97 03/23/17 19:47 Nasal Cannula 2.0 28 03/23/17 19:47 93 Nasal Cannula 2.0 28 03/23/17 19:46 95 18 Nasal Cannula 2.0 28 03/23/17 16:00 97.6 83 21 134/76 97 Room Air 03/23/17 16:00 85 Height (Feet): 5 Height (Inches): 0.00 Weight (Pounds): 135 Objective GENERAL: The patient is in no acute distress. HEAD AND NECK: [place] conjunctivae. Has some mild nystagmus that is horizontal. oral mucosa dry, pharynx w/o exudate or effusion. No icterus. Head normocephalic, neck supple. no pain along DIETETIC INTERN shunt path. NECK: No cervical LAD HEART: S1 and S2, regular, no murmurs, no rubs LUNGS: Clear to auscultation b/l anteriorly. ABDOMEN: Obese, soft, and nontender. no pain along path of DIETETIC INTERN shunt. : There is a suprapubic catheter w/o surrounding erythema. catheter changed 03/22/17. EXTREMITIES: Has no edema. no erythema. extremities not cool. SKIN: deferred perirectal exam. Lines: R EJ PIV c/d/i. Microbiology Date/Time Source Procedure Growth Status 03/21/17 18:15 Blood Blood Culture - Preliminary NO GROWTH AFTER 24 HOURS Resulted 03/21/17 18:00 Blood Blood Culture - Final Staphylococcus Sp Coag Neg Complete 03/21/17 18:17 Nasal Nares MRSA Culture - Final Staphylococcus Aureus - Mrsa Complete 03/21/17 18:00 Indwelling Cath Urine Culture - Final Stenotrophomonas Maltophilia Complete 03/22/17 02:00 Back Gram Stain - Final Complete 03/22/17 02:00 Wound Culture - Final Staphylococcus Aureus - Mrsa Complete 03/21/17 18:17 Rectum VRE Culture - Final Enterococcus Faecalis - Vre Complete Laboratory Tests Test 03/23/17 19:45 Random Vancomycin Level 5.6 ug/mL Current Medications Medications (Trade) Dose Ordered Sig/Sandeep Route PRN Reason Start Time Stop Time Status Last Admin Dose Admin Acetaminophen (Tylenol) 650 mg Q4H PRN ORAL fever 03/24/17 09:45 04/20/17 21:44 Albuterol/ Ipratropium (DuoNeb 0.5-3(2.5)mg/3ml) 3 ml Q4H PRN HHN Shortness of Breath 03/24/17 07:15 03/26/17 07:14 Cefepime HCl 1 gm/ Dextrose 55 ml @ 110 mls/hr Q12HR@0200,1400 IVPB 03/24/17 14:00 03/29/17 13:59 Heparin Sodium (Porcine) (Heparin 5000 units/ml) 5,000 units EVERY 12 HOURS SUBQ 03/24/17 09:00 04/21/17 08:59 03/24/17 09:38 Morphine Sulfate (Morphine Sulfate) 2 mg Q4H PRN IVP Moderate Pain (Pain Scale 4-6) 03/24/17 07:00 03/28/17 06:59 Nitroglycerin (Ntg) 0.4 mg Q5MIN X 3 DOSES PRN SL Prn Chest Pain 03/24/17 06:45 04/20/17 21:44 Ondansetron HCl (Zofran) 4 mg Q6H PRN IVP Nausea & Vomiting 03/24/17 09:45 04/20/17 21:44 Polyethylene Glycol (Miralax) 17 gm DAILYPRN PRN ORAL Constipation 03/24/17 07:00 04/20/17 06:59 Temazepam (Restoril) 15 mg HSPRN PRN ORAL Insomnia 03/24/17 20:00 03/28/17 19:59 Vancomycin HCl (Vanco rx to dose) 1 ea DAILY PRN MISC PER RX PROTOCOL 03/24/17 09:00 04/21/17 09:59 Vancomycin/Sodium Chloride 250 ml @ 166.667 mls/hr Q12HR@0900,2100 IVPB 03/24/17 09:00 03/29/17 08:59 03/24/17 10:37 Zacarias Ngo M.D. Mar 24, 2017 13:52
[2017-03-24] MEDS ORDERED: Cefepime HCl 1 GM in D5W 55 ML IVPB SCH (14:00)
--- NOTE | 2017-03-24 15:23 | Pulmonology Progress Note ---
Assessment/Plan Problems: (1) Sepsis (2) Decubitus skin ulcer (3) Paraplegia (4) Suprapubic catheter (5) Restrictive lung disease due to kyphoscoliosis (6) UTI (urinary tract infection) (7) Spina bifida Assessment/Plan IV abx vital signs better check cultures dvt prophylaxis suprapubic catheter was changed yesterday. Subjective Allergies: Coded Allergies: PENICILLIN G (Verified Allergy, Unknown, 10/11/16) Objective Last 24 Hour Vital Signs Date Time Temp Pulse Resp B/P (MAP) Pulse Ox O2 Delivery O2 Flow Rate FiO2 03/24/17 12:00 98.2 92 19 123/73 94 Nasal Cannula 2.0 03/24/17 08:00 Nasal Cannula 2.0 28 03/24/17 08:00 95 Nasal Cannula 2.0 28 03/24/17 08:00 97.8 83 19 112/61 97 Nasal Cannula 2.0 03/24/17 07:58 82 20 Nasal Cannula 2.0 28 03/24/17 04:02 97.7 81 22 108/60 96 Nasal Cannula 2.0 03/24/17 00:02 98.1 87 17 115/64 96 Room Air 03/24/17 00:00 89 03/23/17 20:13 97.9 91 20 130/82 94 Nasal Cannula 2.0 03/23/17 20:00 97 03/23/17 19:47 Nasal Cannula 2.0 28 03/23/17 19:47 93 Nasal Cannula 2.0 28 03/23/17 19:46 95 18 Nasal Cannula 2.0 28 03/23/17 16:00 97.6 83 21 134/76 97 Room Air 03/23/17 16:00 85 Intake and Output 03/24/17 03/25/17 19:00 07:00 Intake Total 850.000 ml Balance 850.000 ml Intake Oral 600 ml IV Total 250.000 ml Microbiology Date/Time Source Procedure Growth Status 03/21/17 18:15 Blood Blood Culture - Preliminary NO GROWTH AFTER 24 HOURS Resulted 03/21/17 18:00 Blood Blood Culture - Final Staphylococcus Sp Coag Neg Complete 03/21/17 18:17 Nasal Nares MRSA Culture - Final Staphylococcus Aureus - Mrsa Complete 03/21/17 18:00 Indwelling Cath Urine Culture - Final Stenotrophomonas Maltophilia Complete 03/22/17 02:00 Back Gram Stain - Final Complete 03/22/17 02:00 Wound Culture - Final Staphylococcus Aureus - Mrsa Complete 03/21/17 18:17 Rectum VRE Culture - Final Enterococcus Faecalis - Vre Complete Laboratory Tests 03/23/17 19:45: Random Vancomycin Level 5.6 Current Medications Medications (Trade) Dose Ordered Sig/Sandeep Route PRN Reason Start Time Stop Time Status Last Admin Dose Admin Acetaminophen (Tylenol) 650 mg Q4H PRN ORAL fever 03/24/17 09:45 04/20/17 21:44 Albuterol/ Ipratropium (DuoNeb 0.5-3(2.5)mg/3ml) 3 ml Q4H PRN HHN Shortness of Breath 03/24/17 07:15 03/26/17 07:14 Heparin Sodium (Porcine) (Heparin 5000 units/ml) 5,000 units EVERY 12 HOURS SUBQ 03/24/17 09:00 04/21/17 08:59 03/24/17 09:38 Morphine Sulfate (Morphine Sulfate) 2 mg Q4H PRN IVP Moderate Pain (Pain Scale 4-6) 03/24/17 07:00 03/28/17 06:59 Nitroglycerin (Ntg) 0.4 mg Q5MIN X 3 DOSES PRN SL Prn Chest Pain 03/24/17 06:45 04/20/17 21:44 Ondansetron HCl (Zofran) 4 mg Q6H PRN IVP Nausea & Vomiting 03/24/17 09:45 04/20/17 21:44 Polyethylene Glycol (Miralax) 17 gm DAILYPRN PRN ORAL Constipation 03/24/17 07:00 04/20/17 06:59 Temazepam (Restoril) 15 mg HSPRN PRN ORAL Insomnia 03/24/17 20:00 03/28/17 19:59 Trimethoprim/ Sulfamethoxazole (Bactrim-DS) 20 ml EVERY 12 HOURS NG 03/24/17 15:00 04/07/17 14:59 Vancomycin HCl (Vanco rx to dose) 1 ea DAILY PRN MISC PER RX PROTOCOL 03/24/17 09:00 04/21/17 09:59 Vancomycin/Sodium Chloride 250 ml @ 166.667 mls/hr Q12HR@0900,2100 IVPB 03/24/17 09:00 03/29/17 08:59 03/24/17 10:37 JARET HERNÁNDEZ Mar 24, 2017 15:23
[2017-03-24 16:00] VITALS: BP 114/68
[2017-03-24] MEDS: Bactrim Susp 20ml NG SCH ×2 (16:49→21:29)
[2017-03-24 20:00] VITALS: BP 135/70
[2017-03-25] VITALS: BP 121/71
[2017-03-25 04:00] VITALS: BP 116/73
[2017-03-25 08:15] VITALS: BP 110/55
[2017-03-25] MEDS: Vancomycin 750mg/NS 250ml 250 ML IVPB SCH (08:16)
[2017-03-25] MEDS: Bactrim Susp 20ml NG SCH ×2 (08:16→21:13)
[2017-03-25] MEDS: Heparin 5000 units/ml inj SUBQ SCH ×2 (08:19→21:16)
[2017-03-25 09:06] LABS: ANION GAP 11 (5-15); CALCIUM 9.1 mg/dL (8.6-10.2); CARBON DIOXIDE 33 mEQ/L (20-30); CHLORIDE 96 mEQ/L (98-107); CREATININE 0.4 mg/dL (0.5-0.9); GLOMERULAR FILTRATION RATE > 60 mL/min (>60); HEMOLYSIS 7; POTASSIUM 4.8 mEQ/L (3.4-4.9); SODIUM 140 mEQ/L (135-145)
[2017-03-25 12:07] VITALS: BP 113/62
--- NOTE | 2017-03-25 14:01 | Pulmonology Progress Note ---
Assessment/Plan Problems: (1) Sepsis (2) Decubitus skin ulcer (3) Paraplegia (4) Suprapubic catheter (5) Restrictive lung disease due to kyphoscoliosis (6) UTI (urinary tract infection) (7) Spina bifida Assessment/Plan IV abx vital signs better check cultures dvt prophylaxis suprapubic catheter was changed yesterday. Subjective Allergies: Coded Allergies: PENICILLIN G (Verified Allergy, Unknown, 10/11/16) Objective Last 24 Hour Vital Signs Date Time Temp Pulse Resp B/P (MAP) Pulse Ox O2 Delivery O2 Flow Rate FiO2 03/25/17 12:07 97.9 91 18 113/62 99 Nasal Cannula 2.0 03/25/17 08:15 98.2 93 20 110/55 97 Room Air 03/25/17 08:14 Nasal Cannula 2.0 28 03/25/17 08:13 97 Nasal Cannula 2.0 28 03/25/17 08:12 89 16 Nasal Cannula 2.0 28 03/25/17 04:00 98.2 97 20 116/73 96 Nasal Cannula 2.0 03/25/17 00:00 98.6 90 20 121/71 94 Room Air 03/24/17 20:25 97 Nasal Cannula 2.0 28 03/24/17 20:25 97 17 Nasal Cannula 2.0 28 03/24/17 20:25 Nasal Cannula 2.0 28 03/24/17 20:00 98.9 92 20 135/70 96 Nasal Cannula 2.0 03/24/17 16:00 98.1 82 19 114/68 95 Nasal Cannula 2.0 Intake and Output 03/25/17 03/26/17 19:00 07:00 Intake Total 813.337 ml Balance 813.337 ml Intake Oral 480 ml IV Total 333.337 ml Microbiology Date/Time Source Procedure Growth Status 03/22/17 19:45 Blood Blood Culture - Preliminary NO GROWTH AFTER 48 HOURS Resulted 03/22/17 19:30 Blood Blood Culture - Preliminary NO GROWTH AFTER 48 HOURS Resulted Laboratory Tests 03/25/17 06:00: Sodium Level 140, Potassium Level 4.8, Chloride Level 96L, Carbon Dioxide Level 33H, Anion Gap 11, Blood Urea Nitrogen 13, Creatinine 0.4L, Estimat Glomerular Filtration Rate > 60, Glucose Level 98, Calcium Level 9.1 Current Medications Medications (Trade) Dose Ordered Sig/Sandeep Route PRN Reason Start Time Stop Time Status Last Admin Dose Admin Acetaminophen (Tylenol) 650 mg Q4H PRN ORAL fever 03/24/17 09:45 04/20/17 21:44 Albuterol/ Ipratropium (DuoNeb 0.5-3(2.5)mg/3ml) 3 ml Q4H PRN HHN Shortness of Breath 03/24/17 07:15 03/26/17 07:14 Heparin Sodium (Porcine) (Heparin 5000 units/ml) 5,000 units EVERY 12 HOURS SUBQ 03/24/17 09:00 04/21/17 08:59 03/25/17 08:19 Morphine Sulfate (Morphine Sulfate) 2 mg Q4H PRN IVP Moderate Pain (Pain Scale 4-6) 03/24/17 07:00 03/28/17 06:59 Nitroglycerin (Ntg) 0.4 mg Q5MIN X 3 DOSES PRN SL Prn Chest Pain 03/24/17 06:45 04/20/17 21:44 Ondansetron HCl (Zofran) 4 mg Q6H PRN IVP Nausea & Vomiting 03/24/17 09:45 04/20/17 21:44 Polyethylene Glycol (Miralax) 17 gm DAILYPRN PRN ORAL Constipation 03/24/17 07:00 04/20/17 06:59 Temazepam (Restoril) 15 mg HSPRN PRN ORAL Insomnia 03/24/17 20:00 03/28/17 19:59 Trimethoprim/ Sulfamethoxazole (Bactrim-DS) 20 ml EVERY 12 HOURS NG 03/24/17 15:00 04/07/17 14:59 03/25/17 08:16 Vancomycin HCl (Vanco rx to dose) 1 ea DAILY PRN MISC PER RX PROTOCOL 03/24/17 09:00 04/21/17 09:59 Vancomycin/Sodium Chloride 250 ml @ 166.667 mls/hr Q12HR@0900,2100 IVPB 03/24/17 09:00 03/29/17 08:59 03/25/17 08:16 JARET HERNÁNDEZ Mar 25, 2017 14:01
--- NOTE | 2017-03-25 15:40 | Infectious Diseases Prog Note ---
Assessment/Plan Assessment/Plan ASSESSMENT: Admitted with SP cath associated stenotrophomonas complicated UTI, s/p change of SP cath 03/22/17, with resolution of low grade fevers and leukocytosis. admission blood cx growing coag neg staph both bottle from one set and second set ngtd at >48 hrs, and surveillance blood cx from 03/22 ngtd. 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 She is responding to treatment for SP cath associated urosepsis, s/p cath change, and narrowed abx 03/25/17. sepsis SP cath associated stenotrophomas UTI s/p renal u/s negative for abscess or infected stone. does have a L ureteral stent. leukocytosis, resolved low grade fever, resolved CoNS from one blood cx, suspect contaminant; no indwelling PICC or CVC 03/22 surveillance blood cx ngtd at >72 hrs h/o Proteus UTI, complicated, s/p 10D ertapenem completed on [id number] Left sacral unstageable pressure ulcer and Right buttock unstageable pressure ulcer; prior CT in January2017 demonstrated bony erosive changes. superficial culture growing carbapenem resistant (amikacin and tmp/smx susceptible) ACB, Proteus, and MRSA PCXR negative for infiltrate or effusion elevated inflammatory markers h/o PCN G allergy, tolerated carbapenem, tolerating cephalosporin spina bifida w/ paraplegic suprapubic urinary catheter PREFITTER DOORS shunt; h/o fractured distal tip anemia PLAN: --Continue IV vancomycin D#4, plan to d/c on sunday after 5 days therapy if surveillance blood cx remains negative (03/24 s/p IV cefepime 1gm q12hr D#3) --Continue tmp/smx DS suspension twice daily D#08/05 for the stenotrophomas UTI --f/u 03/22 surveillance blood cx --s/p wound care consult, receiving topical care, has colonization of wound with ACB, proteus, and MRSA previously, with repeat culture with MRSA (tmp/smx sensitive) considered colonized. If wound fails to show any improvement with chronic wound care, may need outpatient repeat surgical evaluation with bone biopsy for histopath and culture and eventual flap coverage. isolated cons from blood cx not associated with this wound. --monitor CBC --monitor SCr, check BMP in AM. --monitor SP urine cath output --monitor temp curve Subjective ROS Limited/Unobtainable: Yes Allergies: Coded Allergies: PENICILLIN G (Verified Allergy, Unknown, 10/11/16) Objective Vital Signs Last 24 Hour Vital Signs Date Time Temp Pulse Resp B/P (MAP) Pulse Ox O2 Delivery O2 Flow Rate FiO2 03/25/17 12:07 97.9 91 18 113/62 99 Nasal Cannula 2.0 03/25/17 08:15 98.2 93 20 110/55 97 Room Air 03/25/17 08:14 Nasal Cannula 2.0 28 03/25/17 08:13 97 Nasal Cannula 2.0 28 03/25/17 08:12 89 16 Nasal Cannula 2.0 28 03/25/17 04:00 98.2 97 20 116/73 96 Nasal Cannula 2.0 03/25/17 00:00 98.6 90 20 121/71 94 Room Air 03/24/17 20:25 97 Nasal Cannula 2.0 28 03/24/17 20:25 97 17 Nasal Cannula 2.0 28 03/24/17 20:25 Nasal Cannula 2.0 28 03/24/17 20:00 98.9 92 20 135/70 96 Nasal Cannula 2.0 03/24/17 16:00 98.1 82 19 114/68 95 Nasal Cannula 2.0 Height (Feet): 5 Height (Inches): 0.00 Weight (Pounds): 135 Objective GENERAL: The patient is in no acute distress. HEAD AND NECK: [place] conjunctivae. Has some mild nystagmus that is horizontal. oral mucosa dry, pharynx w/o exudate or effusion. No icterus. Head normocephalic, neck supple. no pain along PREFITTER DOORS shunt path. NECK: No cervical LAD HEART: S1 and S2, regular, no murmurs, no rubs LUNGS: Clear to auscultation b/l anteriorly. ABDOMEN: Obese, soft, and nontender. no pain along path of PREFITTER DOORS shunt. : There is a suprapubic catheter w/o surrounding erythema. catheter changed 03/22/17. EXTREMITIES: Has no edema. no erythema. extremities not cool. SKIN: deferred perirectal exam. Lines: R EJ PIV c/d/i. Microbiology Date/Time Source Procedure Growth Status 03/22/17 19:45 Blood Blood Culture - Preliminary NO GROWTH AFTER 48 HOURS Resulted 03/22/17 19:30 Blood Blood Culture - Preliminary NO GROWTH AFTER 48 HOURS Resulted Laboratory Tests Test 03/25/17 06:00 Sodium Level 140 mEQ/L (135-145) Potassium Level 4.8 mEQ/L (3.4-4.9) Chloride Level 96 mEQ/L (98-107) L Carbon Dioxide Level 33 mEQ/L (20-30) H Anion Gap 11 (5-15) Blood Urea Nitrogen 13 mg/dL (7-23) Creatinine 0.4 mg/dL (0.5-0.9) L Estimat Glomerular Filtration Rate > 60 mL/min (>60) Glucose Level 98 mg/dL (74-106) Calcium Level 9.1 mg/dL (8.6-10.2) Current Medications Medications (Trade) Dose Ordered Sig/Sandeep Route PRN Reason Start Time Stop Time Status Last Admin Dose Admin Acetaminophen (Tylenol) 650 mg Q4H PRN ORAL fever 03/24/17 09:45 04/20/17 21:44 Albuterol/ Ipratropium (DuoNeb 0.5-3(2.5)mg/3ml) 3 ml Q4H PRN HHN Shortness of Breath 03/24/17 07:15 03/26/17 07:14 Heparin Sodium (Porcine) (Heparin 5000 units/ml) 5,000 units EVERY 12 HOURS SUBQ 03/24/17 09:00 04/21/17 08:59 03/25/17 08:19 Morphine Sulfate (Morphine Sulfate) 2 mg Q4H PRN IVP Moderate Pain (Pain Scale 4-6) 03/24/17 07:00 03/28/17 06:59 Nitroglycerin (Ntg) 0.4 mg Q5MIN X 3 DOSES PRN SL Prn Chest Pain 03/24/17 06:45 04/20/17 21:44 Ondansetron HCl (Zofran) 4 mg Q6H PRN IVP Nausea & Vomiting 03/24/17 09:45 04/20/17 21:44 Polyethylene Glycol (Miralax) 17 gm DAILYPRN PRN ORAL Constipation 03/24/17 07:00 04/20/17 06:59 Temazepam (Restoril) 15 mg HSPRN PRN ORAL Insomnia 03/24/17 20:00 03/28/17 19:59 Trimethoprim/ Sulfamethoxazole (Bactrim-DS) 20 ml EVERY 12 HOURS NG 03/24/17 15:00 04/07/17 14:59 03/25/17 08:16 Vancomycin HCl (Vanco rx to dose) 1 ea DAILY PRN MISC PER RX PROTOCOL 03/24/17 09:00 04/21/17 09:59 Vancomycin/Sodium Chloride 250 ml @ 166.667 mls/hr Q12HR@0900,2100 IVPB 03/24/17 09:00 03/29/17 08:59 03/25/17 08:16 Zacarias Ngo M.D. Mar 25, 2017 15:40
[2017-03-25 15:50] VITALS: BP 110/79
[2017-03-25 20:00] VITALS: BP 144/77
[2017-03-25] MEDS ORDERED: Vancomycin 750mg/NS 250ml 250 ML IVPB SCH (21:00)
[2017-03-26] VITALS: BP 119/58
[2017-03-26 04:46] VITALS: BP 109/67
[2017-03-26 08:00] VITALS: BP 117/64
[2017-03-26] MEDS: Bactrim Susp 20ml NG SCH ×2 (08:27→22:00)
[2017-03-26] MEDS: Heparin 5000 units/ml inj SUBQ SCH ×2 (08:29→22:01)
[2017-03-26 12:34] VITALS: BP 127/75
--- NOTE | 2017-03-26 15:02 | Infectious Diseases Prog Note ---
Assessment/Plan Assessment/Plan ASSESSMENT: Admitted with SP cath associated stenotrophomonas complicated UTI, s/p change of SP cath 03/22/17, with resolution of low grade fevers and leukocytosis. admission blood cx growing coag neg staph both bottle from one set and second set ngtd at >48 hrs, and surveillance blood cx from 03/22 ngtd. 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 She is responding to treatment for SP cath associated urosepsis, s/p cath change, and narrowed abx 03/25/17. sepsis SP cath associated stenotrophomas UTI s/p renal u/s negative for abscess or infected stone. does have a L ureteral stent. leukocytosis, resolved low grade fever, resolved CoNS from one blood cx, suspect contaminant; no indwelling PICC or CVC 03/22 surveillance blood cx neg h/o Proteus UTI, complicated, s/p 10D ertapenem completed on [id number] Left sacral unstageable pressure ulcer and Right buttock unstageable pressure ulcer; prior CT in January2017 demonstrated bony erosive changes. superficial culture growing carbapenem resistant (amikacin and tmp/smx susceptible) ACB, Proteus, and MRSA PCXR negative for infiltrate or effusion elevated inflammatory markers h/o PCN G allergy, tolerated carbapenem, tolerating cephalosporin spina bifida w/ paraplegic suprapubic urinary catheter BOAT WORKER shunt; h/o fractured distal tip anemia PLAN: --Continue tmp/smx DS suspension twice daily D#2/ for the stenotrophomas UTI --Dc'ed IV vancomycin D#5 this morning. (03/24 s/p IV cefepime 1gm q12hr D#3) --f/u 03/22 surveillance blood cx --s/p wound care consult, receiving topical care, has colonization of wound with ACB, proteus, and MRSA previously, with repeat culture with MRSA (tmp/smx sensitive) considered colonized. If wound fails to show any improvement with chronic wound care, may need outpatient repeat surgical evaluation with bone biopsy for histopath and culture and eventual flap coverage. isolated cons from blood cx not associated with this wound. --monitor CBC --monitor SCr --monitor SP urine cath output --monitor temp curve Subjective Constitutional: Reports: no symptoms HEENT: Reports: no symptoms Respiratory: Reports: no symptoms Cardiovascular: Reports: no symptoms Genitourinary: Reports: no symptoms Skin: Reports: no symptoms Allergies: Coded Allergies: PENICILLIN G (Verified Allergy, Unknown, 10/11/16) Objective Vital Signs Last 24 Hour Vital Signs Date Time Temp Pulse Resp B/P (MAP) Pulse Ox O2 Delivery O2 Flow Rate FiO2 03/26/17 12:34 98.2 96 20 127/75 91 Nasal Cannula 2.0 03/26/17 08:00 99.6 96 18 117/64 93 Nasal Cannula 2.0 03/26/17 07:56 Nasal Cannula 2.0 28 03/26/17 07:55 92 Nasal Cannula 2.0 28 03/26/17 07:52 Room Air 03/26/17 07:51 Room Air 03/26/17 07:50 97 16 Nasal Cannula 2.0 03/26/17 04:46 97.6 84 18 109/67 97 Nasal Cannula 2.0 03/26/17 00:00 97.8 96 18 119/58 96 Nasal Cannula 2.0 03/25/17 21:45 Nasal Cannula 2.0 28 03/25/17 21:45 87 16 Nasal Cannula 2.0 03/25/17 21:45 97 Nasal Cannula 2.0 28 03/25/17 20:00 97.7 89 18 144/77 99 Nasal Cannula 2.0 03/25/17 15:50 98.1 84 20 110/79 94 Nasal Cannula 2.0 Height (Feet): 5 Height (Inches): 0.00 Weight (Pounds): 135 Objective GENERAL: The patient is in no acute distress. HEAD AND NECK: [place] conjunctivae. Has some mild nystagmus that is horizontal. oral mucosa dry, pharynx w/o exudate or effusion. No icterus. Head normocephalic, neck supple. no pain along BOAT WORKER shunt path. NECK: No cervical LAD HEART: S1 and S2, regular, no murmurs, no rubs LUNGS: Clear to auscultation b/l anteriorly. ABDOMEN: Obese, soft, and nontender. no pain along path of BOAT WORKER shunt. : There is a suprapubic catheter w/o surrounding erythema. catheter changed 03/22/17. EXTREMITIES: Has no edema. no erythema. extremities not cool. SKIN: deferred perirectal exam. Lines: No CVC, no picc. Current Medications Medications (Trade) Dose Ordered Sig/Sandeep Route PRN Reason Start Time Stop Time Status Last Admin Dose Admin Acetaminophen (Tylenol) 650 mg Q4H PRN ORAL fever 03/24/17 09:45 04/20/17 21:44 Heparin Sodium (Porcine) (Heparin 5000 units/ml) 5,000 units EVERY 12 HOURS SUBQ 03/24/17 09:00 04/21/17 08:59 03/26/17 08:29 Morphine Sulfate (Morphine Sulfate) 2 mg Q4H PRN IVP Moderate Pain (Pain Scale 4-6) 03/24/17 07:00 03/28/17 06:59 Nitroglycerin (Ntg) 0.4 mg Q5MIN X 3 DOSES PRN SL Prn Chest Pain 03/24/17 06:45 04/20/17 21:44 Ondansetron HCl (Zofran) 4 mg Q6H PRN IVP Nausea & Vomiting 03/24/17 09:45 04/20/17 21:44 Polyethylene Glycol (Miralax) 17 gm DAILYPRN PRN ORAL Constipation 03/24/17 07:00 04/20/17 06:59 Temazepam (Restoril) 15 mg HSPRN PRN ORAL Insomnia 03/24/17 20:00 03/28/17 19:59 Trimethoprim/ Sulfamethoxazole (Bactrim-DS) 20 ml EVERY 12 HOURS NG 03/24/17 15:00 04/07/17 14:59 03/26/17 08:27 Zacarias Ngo M.D. Mar 26, 2017 15:02
[2017-03-26] MEDS ORDERED: SULFAMETHOXAZO480 ML ORAL (15:04)
--- NOTE | 2017-03-26 15:27 | Pulmonology Progress Note ---
Assessment/Plan Assessment/Plan ASSESSMENT sepsis UTI with Stenotrophomonas , suprapubic catheter associated hx of complicated UTI paraplegia spina bifida restrictive lung disease 2 to kyphoscoliosis SOLID WASTE ENGINEER shunt suprapubic catheter status ( change 03/22) anemia sacral decub st 3, POA; R buttock decub st 4, POA PLAN OF CARE [facility] floor IVF abx, ID follows urine cx + Stenotrophomonas blood cx 07/26 + SCON, repeated 03/22 -negative DVT prophylaxis wound care as per wound nurse recommendations bowel regimen s/p catheter changed 03/22, renal US negative O2 prn keep sat above 92% pulmonary toilet prn CXR no acute changes, mild congestion bowel regimen dc today to SNF on oral Bactrim x 12 more days case discussed and evaluated by supervising physician Subjective Allergies: Coded Allergies: PENICILLIN G (Verified Allergy, Unknown, 10/11/16) Subjective leukocytosis resolved, afebrile no signs of respiratory distress Objective Last 24 Hour Vital Signs Date Time Temp Pulse Resp B/P (MAP) Pulse Ox O2 Delivery O2 Flow Rate FiO2 03/26/17 12:34 98.2 96 20 127/75 91 Nasal Cannula 2.0 03/26/17 08:00 99.6 96 18 117/64 93 Nasal Cannula 2.0 03/26/17 07:56 Nasal Cannula 2.0 28 03/26/17 07:55 92 Nasal Cannula 2.0 28 03/26/17 07:52 Room Air 03/26/17 07:51 Room Air 03/26/17 07:50 97 16 Nasal Cannula 2.0 03/26/17 04:46 97.6 84 18 109/67 97 Nasal Cannula 2.0 03/26/17 00:00 97.8 96 18 119/58 96 Nasal Cannula 2.0 03/25/17 21:45 Nasal Cannula 2.0 28 03/25/17 21:45 87 16 Nasal Cannula 2.0 28 03/25/17 21:45 97 Nasal Cannula 2.0 28 03/25/17 20:00 97.7 89 18 144/77 99 Nasal Cannula 2.0 03/25/17 15:50 98.1 84 20 110/79 94 Nasal Cannula 2.0 Intake and Output 03/26/17 03/27/17 19:00 07:00 Intake Total 480 ml Balance 480 ml Intake Oral 480 ml Objective GENERAL: bedridden middle age female, chronically ill looking in NAD HEAD AND NECK: Mild horizontal nystagmus, No icterus. NC/AT, no TTP along SOLID WASTE ENGINEER shunt path. NECK: Supple, no JVD, no cervical LAD, trachea midline HEART: S1 and S2, regular, no murmurs, no rubs LUNGS: CTAB ABDOMEN: Obese, soft, and nontender. no TTP along path of SOLID WASTE ENGINEER shunt. : suprapubic catheter w/o surrounding erythema. catheter changed 03/22/17. EXTREMITIES: No edema. no erythema. Warm to touch Current Medications Medications (Trade) Dose Ordered Sig/Sandeep Route PRN Reason Start Time Stop Time Status Last Admin Dose Admin Acetaminophen (Tylenol) 650 mg Q4H PRN ORAL fever 03/24/17 09:45 04/20/17 21:44 Heparin Sodium (Porcine) (Heparin 5000 units/ml) 5,000 units EVERY 12 HOURS SUBQ 03/24/17 09:00 04/21/17 08:59 03/26/17 08:29 Morphine Sulfate (Morphine Sulfate) 2 mg Q4H PRN IVP Moderate Pain (Pain Scale 4-6) 03/24/17 07:00 03/28/17 06:59 Nitroglycerin (Ntg) 0.4 mg Q5MIN X 3 DOSES PRN SL Prn Chest Pain 03/24/17 06:45 04/20/17 21:44 Ondansetron HCl (Zofran) 4 mg Q6H PRN IVP Nausea & Vomiting 03/24/17 09:45 04/20/17 21:44 Polyethylene Glycol (Miralax) 17 gm DAILYPRN PRN ORAL Constipation 03/24/17 07:00 04/20/17 06:59 Temazepam (Restoril) 15 mg HSPRN PRN ORAL Insomnia 03/24/17 20:00 03/28/17 19:59 Trimethoprim/ Sulfamethoxazole (Bactrim-DS) 20 ml EVERY 12 HOURS NG 03/24/17 15:00 04/07/17 14:59 03/26/17 08:27 Trinh Muñiz NP ([place]) Mar 26, 2017 15:27
[2017-03-26 16:59] VITALS: BP 116/76
[2017-03-26 20:00] VITALS: BP 114/78
[2017-03-27] VITALS: BP 150/73
[2017-03-27 04:00] VITALS: BP 103/77
[2017-03-27 08:00] VITALS: BP 112/71
[2017-03-27] MEDS: Bactrim Susp 20ml NG SCH (09:05)
[2017-03-27] MEDS: Heparin 5000 units/ml inj SUBQ SCH (09:07)
[2017-03-27 12:00] VITALS: BP 109/70
--- NOTE | 2017-03-27 13:34 | Infectious Diseases Prog Note ---
Assessment/Plan Assessment/Plan ASSESSMENT: Admitted with SP cath associated stenotrophomonas complicated UTI, s/p change of SP cath 03/22/17, with resolution of low grade fevers and leukocytosis. admission blood cx growing coag neg staph both bottle from one set and second set neg hrs, and surveillance blood cx from 03/22 ngtd. 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 She is responding to treatment for SP cath associated urosepsis, s/p cath change, and narrowed abx 03/25/17. sepsis SP cath associated stenotrophomas UTI s/p renal u/s negative for abscess or infected stone. does have a L ureteral stent. leukocytosis, resolved low grade fever, resolved CoNS from one blood cx, suspect contaminant; no indwelling PICC or CVC 03/22 surveillance blood cx neg h/o Proteus UTI, complicated, s/p 10D ertapenem completed on [id number] Left sacral unstageable pressure ulcer and Right buttock unstageable pressure ulcer; prior CT in January2017 demonstrated bony erosive changes. superficial culture growing carbapenem resistant (amikacin and tmp/smx susceptible) ACB, Proteus, and MRSA PCXR negative for infiltrate or effusion elevated inflammatory markers h/o PCN G allergy, tolerated carbapenem, tolerating cephalosporin spina bifida w/ paraplegic suprapubic urinary catheter CONTRACTS DIRECTOR shunt; h/o fractured distal tip anemia PLAN: --Continue tmp/smx DS suspension twice daily D#3/ for the stenotrophomas UTI (03/26 s/p IV vancomycin D#5) (03/24 s/p IV cefepime 1gm q12hr D#3) --s/p wound care consult, receiving topical care, has colonization of wound with ACB, proteus, and MRSA previously, with repeat culture with MRSA (tmp/smx sensitive) considered colonized. If wound fails to show any improvement with chronic wound care, may need outpatient repeat surgical evaluation with bone biopsy for histopath and culture and eventual flap coverage. isolated cons from blood cx not associated with this wound. --monitor CBC --monitor SCr --monitor SP urine cath output --monitor temp curve Okay for discharge from ID standpoint on tmp/smx through PEG. Subjective ROS Limited/Unobtainable: Yes Allergies: Coded Allergies: PENICILLIN G (Verified Allergy, Unknown, 10/11/16) Objective Vital Signs Last 24 Hour Vital Signs Date Time Temp Pulse Resp B/P (MAP) Pulse Ox O2 Delivery O2 Flow Rate FiO2 03/27/17 12:00 97.5 85 20 109/70 93 Nasal Cannula 2.0 03/27/17 08:00 97.3 81 20 112/71 96 Nasal Cannula 2.0 03/27/17 04:00 98.1 82 18 103/77 96 Nasal Cannula 2.0 03/27/17 00:00 98.0 88 18 150/73 94 Nasal Cannula 2.0 03/26/17 20:00 97.7 91 18 114/78 95 Nasal Cannula 03/26/17 19:14 94 Nasal Cannula 2.0 28 03/26/17 19:14 88 18 Nasal Cannula 2.0 28 03/26/17 19:14 Nasal Cannula 2.0 28 03/26/17 16:59 97.7 96 20 116/76 95 Nasal Cannula 2.0 Height (Feet): 5 Height (Inches): 0.00 Weight (Pounds): 135 Objective GENERAL: The patient is in no acute distress. HEAD AND NECK: [place] conjunctivae. Has some mild nystagmus that is horizontal. oral mucosa dry, pharynx w/o exudate or effusion. No icterus. Head normocephalic, neck supple. no pain along CONTRACTS DIRECTOR shunt path. NECK: No cervical LAD HEART: S1 and S2, regular, no murmurs, no rubs LUNGS: Clear to auscultation b/l anteriorly. ABDOMEN: Obese, soft, and nontender. no pain along path of CONTRACTS DIRECTOR shunt. : There is a suprapubic catheter w/o surrounding erythema. catheter changed 03/22/17. EXTREMITIES: Has no edema. no erythema. extremities not cool. SKIN: deferred perirectal exam. Lines: No CVC, no picc. Current Medications Medications (Trade) Dose Ordered Sig/Sandeep Route PRN Reason Start Time Stop Time Status Last Admin Dose Admin Acetaminophen (Tylenol) 650 mg Q4H PRN ORAL fever 03/24/17 09:45 04/20/17 21:44 Heparin Sodium (Porcine) (Heparin 5000 units/ml) 5,000 units EVERY 12 HOURS SUBQ 03/24/17 09:00 04/21/17 08:59 03/27/17 09:07 Morphine Sulfate (Morphine Sulfate) 2 mg Q4H PRN IVP Moderate Pain (Pain Scale 4-6) 03/24/17 07:00 03/28/17 06:59 Nitroglycerin (Ntg) 0.4 mg Q5MIN X 3 DOSES PRN SL Prn Chest Pain 03/24/17 06:45 04/20/17 21:44 Ondansetron HCl (Zofran) 4 mg Q6H PRN IVP Nausea & Vomiting 03/24/17 09:45 04/20/17 21:44 Polyethylene Glycol (Miralax) 17 gm DAILYPRN PRN ORAL Constipation 03/24/17 07:00 04/20/17 06:59 Temazepam (Restoril) 15 mg HSPRN PRN ORAL Insomnia 03/24/17 20:00 03/28/17 19:59 Trimethoprim/ Sulfamethoxazole (Bactrim-DS) 20 ml EVERY 12 HOURS NG 03/24/17 15:00 04/07/17 14:59 03/27/17 09:05 Zacarias Ngo M.D. Mar 27, 2017 13:34
[2017-03-27 16:00] VITALS: BP 112/68
--- NOTE | 2017-03-27 16:25 | Pulmonology Progress Note ---
Assessment/Plan Problems: (1) Sepsis (2) Decubitus skin ulcer (3) Paraplegia (4) Suprapubic catheter (5) Restrictive lung disease due to kyphoscoliosis (6) UTI (urinary tract infection) (7) Spina bifida Assessment/Plan change abx to po vital signs better check cultures dvt prophylaxis dc home with oral abx home benedicto Subjective ROS Limited/Unobtainable: No Constitutional: Reports: no symptoms HEENT: Repors: no symptoms Respiratory: Reports: no symptoms Allergies: Coded Allergies: PENICILLIN G (Verified Allergy, Unknown, 10/11/16) Objective Last 24 Hour Vital Signs Date Time Temp Pulse Resp B/P (MAP) Pulse Ox O2 Delivery O2 Flow Rate FiO2 03/27/17 12:00 97.5 85 20 109/70 93 Nasal Cannula 2.0 03/27/17 08:00 97.3 81 20 112/71 96 Nasal Cannula 2.0 03/27/17 04:00 98.1 82 18 103/77 96 Nasal Cannula 2.0 03/27/17 00:00 98.0 88 18 150/73 94 Nasal Cannula 2.0 03/26/17 20:00 97.7 91 18 114/78 95 Nasal Cannula 03/26/17 19:14 94 Nasal Cannula 2.0 28 03/26/17 19:14 88 18 Nasal Cannula 2.0 28 03/26/17 19:14 Nasal Cannula 2.0 28 03/26/17 16:59 97.7 96 20 116/76 95 Nasal Cannula 2.0 General Appearance: WD/WN HEENT: normocephalic, atraumatic Respiratory/Chest: chest wall non-tender, lungs clear Breasts: no masses Cardiovascular: normal peripheral pulses Abdomen: normal bowel sounds, soft, non tender Genitourinary: normal external genitalia Extremities: no cyanosis Skin: no lesions Neurologic/Psychiatric: 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 normal, no motor/sensory deficits Lymphatic: no neck adenopathy, no groin adenopathy Musculoskeletal: normal muscle bulk Current Medications Medications (Trade) Dose Ordered Sig/Sandeep Route PRN Reason Start Time Stop Time Status Last Admin Dose Admin Acetaminophen (Tylenol) 650 mg Q4H PRN ORAL fever 03/24/17 09:45 04/20/17 21:44 Heparin Sodium (Porcine) (Heparin 5000 units/ml) 5,000 units EVERY 12 HOURS SUBQ 03/24/17 09:00 04/21/17 08:59 03/27/17 09:07 Morphine Sulfate (Morphine Sulfate) 2 mg Q4H PRN IVP Moderate Pain (Pain Scale 4-6) 03/24/17 07:00 03/28/17 06:59 Nitroglycerin (Ntg) 0.4 mg Q5MIN X 3 DOSES PRN SL Prn Chest Pain 03/24/17 06:45 04/20/17 21:44 Ondansetron HCl (Zofran) 4 mg Q6H PRN IVP Nausea & Vomiting 03/24/17 09:45 04/20/17 21:44 Polyethylene Glycol (Miralax) 17 gm DAILYPRN PRN ORAL Constipation 03/24/17 07:00 04/20/17 06:59 Temazepam (Restoril) 15 mg HSPRN PRN ORAL Insomnia 03/24/17 20:00 03/28/17 19:59 Trimethoprim/ Sulfamethoxazole (Bactrim-DS) 20 ml EVERY 12 HOURS NG 03/24/17 15:00 04/07/17 14:59 03/27/17 09:05 JARET HERNÁNDEZ Mar 27, 2017 16:25
--- NOTE | 2017-03-29 11:51 | Discharge Summary ---
Discharge Summary Hospital Course Date of Admission Mar 21, 2017 at 17:46 Date of Discharge Mar 27, 2017 at 18:15 Admitting Diagnosis sepsis HPI Eusebia Mueller is a 46 year old female who was admitted on Mar 21, 2017 at 17: 46 for Sepsis Hospital Course [id number] Discharge Discharge Disposition Patient was discharged to Home with HH Discharge Diagnoses: Dulce Gong NP Mar 29, 2017 11:51
--- NOTE | 2017-03-30 03:30 | Discharge Summary 2 SIG ---
DATE OF ADMISSION: 03/21/2017 DATE OF DISCHARGE: 03/27/2017 CONSULTANTS: 1. Zacarias Ngo M.D. 2. Eris Devi M.D. 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 She was discharged on 02/10/2017 to continue home intravenous antibiotics. She started to develop fever and O2 saturation dropped to 85% and had fever. She was then taken to [facility] ED for further evaluation. On arrival to ED, O2 saturation was 87% on room air. Laboratories showed leukocytosis. WBC was elevated to 21. Chest x-ray showed mild interstitial edema and pneumonitis. Urinalysis showed infection. She has a history of Proteus urinary tract infection and was on ertapenem. She had a stage III mid sacral pressure ulcer extending to the left buttock and right buttock stage IV pressure ulcer. Wound care was provided. Suprapubic catheter was replaced by urologist on 03/22/2017. She was recommended to continue monthly suprapubic tube change. She had a blood culture that showed coagulase negative Staph from one sample, suspect contaminant. Wound culture with Acinetobacter, Proteus, and methicillin-resistant Staphylococcus aureus. Repeat blood culture did not isolate any growth. Vancomycin was discontinued. Urine showed growth of Stenotrophomonas. Vancomycin and cefepime discontinued and was given Bactrim b.i.d. She was eventually discharged to home to continue with antibiotic treatment. DISPOSITION: Home with home health. DISCHARGE MEDICATIONS: Refer to med list. FOLLOWUP: Follow up with PMD in a week. FINAL DIAGNOSES: 1. Sepsis. 2. Paraplegia. 3. Urinary tract infection with Stenotrophomonas, suprapubic catheter associated. 4. Spina bifida. 5. Restrictive lung disease secondary to kyphoscoliosis. 6. Ventriculoperitoneal shunt. 7. Suprapubic catheter, change on 03/22/2017. 8. Anemia. 9. Sacral decubitus stage III and right buttock decubitus ulcer stage IV, present on admission. 10. Elevated inflammatory markers. Mirali Zarrabi, M.D. I have been assigned to dictate discharge summary on this account and I was not involved in the patient's management. Dulce Gong N.P. DR: HÉCTOR JOB#: [id number] CC: [id number]
== END 2017-03-27 18:15 | disposition home health service (06) | DRG 871 ==
LOC: EMR 17:43 → 2E 17:46 → EDBEDREQ 21:31 → 4E 03-24 06:54
PROC: 0T2BX0Z Change Drainage Device in Bladder, External Approach (ICD-10-PCS; principal; 2017-03-22)
DX: A41.9 Sepsis, unspecified organism (principal); L89.153 Pressure ulcer of sacral region, stage 3; G82.20 Paraplegia, unspecified; L89.220 Pressure ulcer of left hip, unstageable; L89.314 Pressure ulcer of right buttock, stage 4; Q05.4 Unspecified spina bifida with hydrocephalus; L89.310 Pressure ulcer of right buttock, unstageable; J98.4 Other disorders of lung; M41.80 Other forms of scoliosis, site unspecified; N39.0 Urinary tract infection, site not specified; T83.518A Infection and inflammatory reaction due to other urinary catheter, initial encounter; Z98.2 Presence of cerebrospinal fluid drainage device; D50.9 Iron deficiency anemia, unspecified; Y84.6 Urinary catheterization as the cause of abnormal reaction of the patient, or of later complication, without mention of misadventure at the time of the procedure; B96.89 Other specified bacterial agents as the cause of diseases classified elsewhere; Z43.5 Encounter for attention to cystostomy; Z88.0 Allergy status to penicillin; Z22.322 Carrier or suspected carrier of Methicillin resistant Staphylococcus aureus
CPT/HCPCS: 36415; 71010; 76775; 80048; 80053; 80202; 81003; 82550; 83605; 83880; 84484; 85025; 85610; 85651; 85730; 86140; 87040; 87070; 87081; 87086; 87181; 87205; 93005; 94664; 94760; 99285

== ENCOUNTER 2018-03-11 18:34 | Inpatient (IN) | payer MEDICARE, MEDICAID ==
[~2018-03-11] VITALS: Ht 157.5 cm; Wt 60.4 kg
[~2018-03-11 18:34] MED LIST changes: +SULFAMETHOXAZO480 ML ORAL
--- NOTE | 2018-03-11 19:04 | Emergency Room Report ---
History of Present Illness General Chief Complaint: General Complaint Source: Patient, Medical Record Present Illness HPI Patient is a 47-year-old female brought in by brother after decreased urine output. Patient was noted to have prior history of spina bifida. She had chronic indwelling Huber catheter. The patient had been having decreased amount of urine output. The patient catheter change approximately 3 weeks ago. She not been noted to have any fever. Patient has home health nurse. Allergies: Coded Allergies: PENICILLIN G (Verified Allergy, Unknown, 10/11/16) Patient History Past Medical History: see triage record Reviewed Nursing Documentation: PMH: Agreed; PSxH: Agreed Nursing Documentation-PMH Past Medical History: No History, Except For Hx Hypertension: Yes Hx Cancer: No Hx Gastrointestinal Problems: No Hx Neurological Problems: Yes - Spina Bifida (Gustavo in place) Hx Cerebrovascular Accident: No Hx Transient Ischemic Attacks: No Hx Dementia: No Hx Alzheimer's Disease: No Hx Parkinson's Disease: No Hx Meningitis: No Hx Encephalitis: No Hx Seizures: No Hx Epilepsy: No Hx Multiple Sclerosis: No Hx Cerebral Palsy: No Hx Amyotrophic Lat Sclerosis: No Hx Guillian-Fenton Syndrome: No Hx Paralysis: Yes - below waist Hx Peripheral Neuropathy: No Hx Spinal Cord Injury: Yes - spinal bifida Hx Head Trauma: No Hx Traumatic Brain Injury: No Hx Memory Loss: No Hx Concentration Difficulty: No Hx Speech Problem: Yes Hx Tremors: No Hx Vertigo: No Hx Headaches: No Hx Aphasia: No Hx Dysphasia: No Hx Numbness: No Hx Weakness: No Hx Fatigue: No Hx Neurologic Surgery: No Hx Brain Shunt: Yes Physical Exam Vital Signs Date Time Temp Pulse Resp B/P (MAP) Pulse Ox O2 Delivery O2 Flow Rate FiO2 03/11/18 18:40 99.3 125 18 103/67 93 Room Air 99.3 Medical Decision Making Diagnostic Impression: Primary Impression: Spina bifida Additional Impressions: Urinary catheter in place Urinary tract infection 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 Differential diagnosis included wasn't limited to pneumonia, urinary tract infection, drug fever, allergic reaction, sepsis, cholecystitis, among others.Because of complexity of patient' s case laboratory testing and imaging studies were ordered. The patient noted have evidence of had decreased urine output. The laboratory testing was ordered due to patient's symptoms. Patient was started on IV antibiotics and IV fluids. Dr. Pryor was contacted for inpatient management due to complexity of medical condition. Labs Test 03/11/18 19:36 03/11/18 20:03 White Blood Count 22.4 K/UL (4.8-10.8) Red Blood Count 5.12 M/UL (4.20-5.40) Hemoglobin 11.6 G/DL (12.0-16.0) Hematocrit 37.2 % (37.0-47.0) Mean Corpuscular Volume 73 FL (80-99) Mean Corpuscular Hemoglobin 22.6 PG (27.0-31.0) Mean Corpuscular Hemoglobin Concent 31.1 G/DL (32.0-36.0) Red Cell Distribution Width 15.9 % (11.6-14.8) Platelet Count 369 K/UL (150-450) Mean Platelet Volume 5.7 FL (6.5-10.1) Neutrophils (%) (Auto) % (45.0-75.0) Lymphocytes (%) (Auto) % (20.0-45.0) Monocytes (%) (Auto) % (1.0-10.0) Eosinophils (%) (Auto) % (0.0-3.0) Basophils (%) (Auto) % (0.0-2.0) Differential Total Cells Counted 100 Neutrophils % (Manual) 80 % (45-75) Lymphocytes % (Manual) 14 % (20-45) Monocytes % (Manual) 5 % (1-10) Eosinophils % (Manual) 0 % (0-3) Basophils % (Manual) 0 % (0-2) Band Neutrophils 1 % (0-8) Platelet Estimate Adequate Platelet Morphology Normal Hypochromasia 1+ Anisocytosis 1+ Sodium Level 132 MMOL/L (136-145) Potassium Level 6.0 MMOL/L (3.5-5.1) Chloride Level 99 MMOL/L (98-107) Carbon Dioxide Level 21 MMOL/L (21-32) Anion Gap 13 mmol/L (5-15) Blood Urea Nitrogen 54 mg/dL (7-18) Creatinine 1.1 MG/DL (0.55-1.30) Estimat Glomerular Filtration Rate 53.7 mL/min (>60) Glucose Level 171 MG/DL (74-106) Calcium Level 8.9 MG/DL (8.5-10.1) Total Bilirubin 0.5 MG/DL (0.2-1.0) Aspartate Amino Transf (AST/SGOT) 12 U/L (15-37) Alanine Aminotransferase (ALT/SGPT) 9 U/L (12-78) Alkaline Phosphatase 136 U/L (46-116) Total Creatine Kinase 17 U/L (26-308) Creatine Kinase MB < 0.5 NG/ML (0.0-3.6) Creatine Kinase MB Relative Index 2.9 Troponin I 0.000 ng/mL (0.000-0.056) Total Protein 9.1 G/DL (6.4-8.2) Albumin 3.1 G/DL (3.4-5.0) Globulin 6.0 g/dL Albumin/Globulin Ratio 0.5 (1.0-2.7) Urine Color Yellow Urine Appearance Slightly cloudy Urine pH 9 (4.5-8.0) Urine Specific [place] 1.010 (1.005-1.035) Urine Protein 3+ (NEGATIVE) Urine Glucose (UA) Negative (NEGATIVE) Urine Ketones Negative (NEGATIVE) Urine Occult Blood 5+ (NEGATIVE) Urine Nitrite Negative (NEGATIVE) Urine Bilirubin Negative (NEGATIVE) Urine Urobilinogen Normal MG/DL (0.0-1.0) Urine Leukocyte Esterase 3+ (NEGATIVE) Urine RBC 10-15 /HPF (0 - 2) Urine WBC 5-10 /HPF (0 - 2) Urine Squamous Epithelial Cells Few /LPF (NONE/OCC) Urine Uric Acid Crystals Few /LPF (NONE) Urine Amorphous Sediment Few /LPF (NONE) Urine Bacteria Many /HPF (NONE) EKG Diagnostic Results Rate: tachycardiac Rhythm: NSR ST Segments: no acute changes Last Vital Signs Date Time Temp Pulse Resp B/P (MAP) Pulse Ox O2 Delivery O2 Flow Rate FiO2 03/11/18 18:40 99.3 125 18 103/67 93 Room Air 99.3 Status: unchanged Disposition: ADMITTED INPATIENT Condition: Ahsan George MD Mar 11, 2018 19:04
[2018-03-11] MEDS ORDERED: Sodium Chloride 500ML 500 ML IV ONE (19:15)
[2018-03-11 19:59] LABS: HEMATOCRIT 37.2 % (37.0-47.0); HEMOGLOBIN 11.6 G/DL (12.0-16.0); MEAN CORPUSCULAR VOLUME 73 FL (80-99); PLATELET COUNT 369 K/UL (150-450); RED BLOOD COUNT 5.12 M/UL (4.20-5.40); RED CELL DISTRIBUTION WIDTH 15.9 % (11.6-14.8)
[2018-03-11 20:05] LABS: WHITE BLOOD COUNT 22.4 K/UL (4.8-10.8)
[2018-03-11 20:26] LABS: ALANINE AMINOTRANSFERASE 9 U/L (12-78); ALBUMIN 3.1 G/DL (3.4-5.0); ALBUMIN/GLOBULIN RATIO 0.5 (1.0-2.7); ALKALINE PHOSPHATASE 136 U/L (46-116); ANION GAP 13 mmol/L (5-15); ASPARTATE AMINO TRANSFERASE 12 U/L (15-37); BILIRUBIN,TOTAL 0.5 MG/DL (0.2-1.0); BLOOD UREA NITROGEN 54 mg/dL (7-18); CALCIUM 8.9 MG/DL (8.5-10.1); CARBON DIOXIDE 21 MMOL/L (21-32); CHLORIDE 99 MMOL/L (98-107); CKMB < 0.5 NG/ML (0.0-3.6); CREATINE KINASE 17 U/L (26-308); CREATININE 1.1 MG/DL (0.55-1.30); SODIUM 132 MMOL/L (136-145)
[2018-03-11 20:45] LABS: APPEARANCE,URINE SLIGHTLY CLOUDY; BILIRUBIN, URINE NEGATIVE (NEGATIVE); GLUCOSE, URINE (UA) NEGATIVE (NEGATIVE); KETONES,URINE NEGATIVE (NEGATIVE); LEUKOCYTE ESTERASE ,URINE 3+ (NEGATIVE); NITRITE,URINE NEGATIVE (NEGATIVE); PH,URINE 9 (4.5-8.0); PROTEIN,URINE 3+ (NEGATIVE); UROBILINOGEN,URINE NORMAL MG/DL (0.0-1.0)
[2018-03-11 20:46] LABS: COLOR,URINE YELLOW
[2018-03-11 22:38] VITALS: BP 113/79
[2018-03-11 23:30] VITALS: BP 113/63
[2018-03-12 04:00] VITALS: BP 115/68
[2018-03-12] MEDS ORDERED: BIOTIN800 MCG PO (05:51)
[2018-03-12] MEDS ORDERED: ELIQUIS5 MG PO (05:51)
[2018-03-12] MEDS ORDERED: ZINC SULFATE220 M2 ORAL (05:51)
[2018-03-12] MEDS ORDERED: Morphine Sulfate 2mg/ml Inj(IV/IM USE ONLY) IVP PRN ×2 (06:45→16:30)
[2018-03-12] MEDS ORDERED: Miralax 17gm pkt ORAL PRN (06:45)
[2018-03-12] MEDS ORDERED: Albuterol/Ipratropium 3ml neb HHN PRN ×2 (06:45→16:30)
[2018-03-12 08:00] VITALS: BP 104/59
[2018-03-12] MEDS ORDERED: Vancomycin 1 GM in D5W 275 ML IVPB SCH (08:00)
[2018-03-12] MEDS ORDERED: Sodium Polystyrene Sulfonate 15gm Powder ORAL SCH (08:15)
[2018-03-12] MEDS ORDERED: Heparin 5000 units/ml inj SUBQ SCH (09:00)
--- NOTE | 2018-03-12 09:54 | Diagnostic Imaging Report ---
Indication: Shortness of breath Technique: One view of the chest Comparison: 03/21/2017 Findings: Ventriculoperitoneal shunt tubing overlies the right neck, chest, and abdomen. There is a spinal fusion alysha again noted. There is mild scoliotic deformity. No definite acute infiltrates, effusions, or congestion. The heart size is upper limits of normal. No significant interim change Impression: Stable findings as noted. No definite acute process
[2018-03-12 12:00] VITALS: BP 113/58
--- NOTE | 2018-03-12 12:07 | History and Physical ---
History of Present Illness General Date patient seen: Mar 12, 2018 Reason for Hospitalization: General Complaint Present Illness HPI 47-year-old female with hx of spina bifida brought in by brother with CC of decreased urine output from suprapubic catheter. The patient catheter was changed approximately 3 weeks ago. She not been noted to have any fever. She was found to be in renal failure with hyperkalemia. She was also tachycardic and admitted to telemetry for further work up. Allergies: Coded Allergies: PENICILLIN G (Verified Allergy, Unknown, 10/11/16) Medication History Scheduled Apixaban (Eliquis), 5 MG PO BID, (Reported) Ascorbic Acid* (Ascorbic Acid*), 500 MG ORAL TWICE A DAY, (Reported) Docusate Sodium* (Docusate Sodium*), 100 MG ORAL TWICE A DAY, (Reported) Ertapenem Sodium* (INVanz*), 1 GM IVPB Q24H, (Reported) Mirabegron (Myrbetriq), 50 MG PO DAILY, (Reported) Multivitamins* (Multivitamins*), 1 TAB ORAL DAILY, (Reported) Sennosides (Senna), 8.6 MG PO BID, (Reported) Zinc Sulfate (Zinc Sulfate), 220 MG ORAL DAILY, (Reported) Miscellaneous Medications Biotin (Biotin), 1,000 MCG PO, (Reported) Patient History Healthcare decision maker Resuscitation status Full Code Advanced Directive on File Past Medical/Surgical History Past Medical/Surgical History: (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 (2) Spina bifida (3) Restrictive lung disease due to kyphoscoliosis (4) Paraplegia Review of Systems All Other Systems: negative except mentioned in HPI Physical Exam General Appearance: cachetic Lines, tubes and drains: peripheral HEENT: normocephalic, atraumatic Neck: non-tender, normal alignment Respiratory/Chest: chest wall non-tender, lungs clear Cardiovascular/Chest: normal peripheral pulses Abdomen: normal bowel sounds, non tender Genitourinary/Rectal: normal genital exam, normal rectal exam Extremities: normal range of motion Skin Exam: normal pigmentation 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 Last 24 Hour Vital Signs Date Time Temp Pulse Resp B/P (MAP) Pulse Ox O2 Delivery O2 Flow Rate FiO2 03/12/18 09:58 97 18 Room Air 21 03/12/18 09:00 Room Air 03/12/18 08:00 99.2 103 18 104/59 (74) 95 99.2 03/12/18 04:00 110 03/12/18 04:00 99.0 112 18 115/68 (84) 95 99.0 03/12/18 00:00 Room Air 03/12/18 00:00 114 03/11/18 23:31 118 03/11/18 23:30 99.4 118 20 113/63 (80) 97 99.4 03/11/18 23:15 99.3 18 113/79 93 Room Air 99.3 03/11/18 22:38 99.3 18 113/79 93 Room Air 99.3 03/11/18 18:40 99.3 125 18 103/67 93 Room Air 99.3 Intake and Output 03/11/18 03/12/18 19:00 07:00 Intake Total 0 ml Output Total 100 ml Balance -100 ml Intake Oral 0 ml Output Urine Total 100 ml # Voids 2 # Bowel Movements 2 Laboratory Tests Test 03/11/18 19:36 03/11/18 20:03 03/11/18 23:13 White Blood Count 22.4 K/UL (4.8-10.8) *H Red Blood Count 5.12 M/UL (4.20-5.40) Hemoglobin 11.6 G/DL (12.0-16.0) L Hematocrit 37.2 % (37.0-47.0) Mean Corpuscular Volume 73 FL (80-99) L Mean Corpuscular Hemoglobin 22.6 PG (27.0-31.0) L Mean Corpuscular Hemoglobin Concent 31.1 G/DL (32.0-36.0) L Red Cell Distribution Width 15.9 % (11.6-14.8) H Platelet Count 369 K/UL (150-450) Mean Platelet Volume 5.7 FL (6.5-10.1) L Neutrophils (%) (Auto) % (45.0-75.0) Lymphocytes (%) (Auto) % (20.0-45.0) Monocytes (%) (Auto) % (1.0-10.0) Eosinophils (%) (Auto) % (0.0-3.0) Basophils (%) (Auto) % (0.0-2.0) Differential Total Cells Counted 100 Neutrophils % (Manual) 80 % (45-75) H Lymphocytes % (Manual) 14 % (20-45) L Monocytes % (Manual) 5 % (1-10) Eosinophils % (Manual) 0 % (0-3) Basophils % (Manual) 0 % (0-2) Band Neutrophils 1 % (0-8) Platelet Estimate Adequate Platelet Morphology Normal Hypochromasia 1+ Anisocytosis 1+ Sodium Level 132 MMOL/L (136-145) L Potassium Level 6.0 MMOL/L (3.5-5.1) *H Chloride Level 99 MMOL/L (98-107) Carbon Dioxide Level 21 MMOL/L (21-32) Anion Gap 13 mmol/L (5-15) Blood Urea Nitrogen 54 mg/dL (7-18) H Creatinine 1.1 MG/DL (0.55-1.30) Estimat Glomerular Filtration Rate 53.7 mL/min (>60) Glucose Level 171 MG/DL (74-106) H Calcium Level 8.9 MG/DL (8.5-10.1) Total Bilirubin 0.5 MG/DL (0.2-1.0) Aspartate Amino Transf (AST/SGOT) 12 U/L (15-37) L Alanine Aminotransferase (ALT/SGPT) 9 U/L (12-78) L Alkaline Phosphatase 136 U/L (46-116) H Total Creatine Kinase 17 U/L (26-308) L Creatine Kinase MB < 0.5 NG/ML (0.0-3.6) Creatine Kinase MB Relative Index 2.9 Troponin I 0.000 ng/mL (0.000-0.056) Total Protein 9.1 G/DL (6.4-8.2) H Albumin 3.1 G/DL (3.4-5.0) L Globulin 6.0 g/dL Albumin/Globulin Ratio 0.5 (1.0-2.7) L Urine Color Yellow Urine Appearance Slightly cloudy Urine pH 9 (4.5-8.0) Urine Specific [place] 1.010 (1.005-1.035) Urine Protein 3+ (NEGATIVE) H Urine Glucose (UA) Negative (NEGATIVE) Urine Ketones Negative (NEGATIVE) Urine Occult Blood 5+ (NEGATIVE) H Urine Nitrite Negative (NEGATIVE) Urine Bilirubin Negative (NEGATIVE) Urine Urobilinogen Normal MG/DL (0.0-1.0) Urine Leukocyte Esterase 3+ (NEGATIVE) H Urine RBC 10-15 /HPF (0 - 2) H Urine WBC 5-10 /HPF (0 - 2) H Urine Squamous Epithelial Cells Few /LPF (NONE/OCC) Urine Uric Acid Crystals Few /LPF (NONE) H Urine Amorphous Sediment Few /LPF (NONE) H Urine Bacteria Many /HPF (NONE) H Lactic Acid Level 2.20 mmol/L (0.4-2.0) H Height (Feet): 5 Height (Inches): 2.00 Weight (Pounds): 120 Medications Current Medications Medications (Trade) Dose Ordered Sig/Sandeep Route PRN Reason Start Time Stop Time Status Last Admin Dose Admin Acetaminophen (Tylenol) 650 mg Q4H PRN ORAL fever 03/12/18 06:45 04/11/18 06:44 Albuterol/ Ipratropium (Albuterol/ Ipratropium) 3 ml Q4H PRN HHN Shortness of Breath 03/12/18 06:45 03/17/18 06:44 Heparin Sodium (Porcine) (Heparin 5000 units/ml) 5,000 units EVERY 12 HOURS SUBQ 03/12/18 09:00 04/11/18 08:59 03/12/18 08:23 Morphine Sulfate (Morphine Sulfate) 2 mg Q4H PRN IVP Moderate Pain (Pain Scale 4-6) 03/12/18 06:45 03/19/18 06:44 Ondansetron HCl (Zofran) 4 mg Q6H PRN IVP Nausea & Vomiting 03/12/18 06:45 04/11/18 06:44 Phenazopyridine HCl (Pyridium) 100 mg DAILY PRN ORAL dysuria 03/12/18 06:45 04/11/18 06:44 Polyethylene Glycol (Miralax) 17 gm DAILYPRN PRN ORAL Constipation 03/12/18 06:45 04/11/18 06:44 Sodium Chloride 1,000 ml @ 150 mls/hr Q6H40M IV 03/12/18 06:45 04/11/18 06:44 03/12/18 06:54 Temazepam (Restoril) 15 mg HSPRN PRN ORAL Insomnia 03/12/18 06:45 03/19/18 06:44 Vancomycin HCl (Vanco rx to dose) 1 ea DAILY PRN MISC . 03/12/18 08:00 04/11/18 07:59 Vancomycin HCl 1 gm/Dextrose 275 ml @ 183.3 mls/ hr Q12H IVPB 03/12/18 08:00 03/17/18 07:59 03/12/18 08:15 Assessment/Plan Problem List: (1) Sepsis ICD Codes: A41.9 - Sepsis, unspecified organism SNOMED: 87797441 (2) Urinary tract infection ICD Codes: N39.0 - Urinary tract infection, site not specified SNOMED: 27761831 (3) ATN (acute tubular necrosis) ICD Codes: N17.0 - Acute kidney failure with tubular necrosis SNOMED: 36080312 (4) Hyperkalemia ICD Codes: E87.5 - Hyperkalemia SNOMED: 24808758 (5) Paraplegia ICD Codes: G82.20 - Paraplegia, unspecified SNOMED: 48518386 (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 Chyna Pryor MD Mar 12, 2018 12:07
--- NOTE | 2018-03-12 12:40 | Consultation ---
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 Catheter was changed ~3 weeks ago. In ED found to have ANGEL, tachycardia and hyperkalemia. Denies fever Of note, admitted here on 03/2017 with CAUTI 2ry to [place], low grade CONS bacteremia, thought to be contaminant. Treated with 14 days of Bactrim. Also hx of Proteus UTI in 04/2017, s/p 10 days of ertapenem Noted per RN, suprapubic catheter not functioning well and leaking. Urology has been notified. Allergies: Coded Allergies: PENICILLIN G (Verified Allergy, Unknown, 03/12/18) Tolerates cabapenem, cephalosporin Medication History Scheduled Apixaban (Eliquis), 5 MG PO BID, (Reported) Ascorbic Acid* (Ascorbic Acid*), 500 MG ORAL TWICE A DAY, (Reported) Docusate Sodium* (Docusate Sodium*), 100 MG ORAL TWICE A DAY, (Reported) Ertapenem Sodium* (INVanz*), 1 GM IVPB Q24H, (Reported) Mirabegron (Myrbetriq), 50 MG PO DAILY, (Reported) Multivitamins* (Multivitamins*), 1 TAB ORAL DAILY, (Reported) Sennosides (Senna), 8.6 MG PO BID, (Reported) Zinc Sulfate (Zinc Sulfate), 220 MG ORAL DAILY, (Reported) Miscellaneous Medications Biotin (Biotin), 1,000 MCG PO, (Reported) Patient History Healthcare decision maker Resuscitation status Full Code Advanced Directive on File Patient History Narrative Pmhx: as above Shx: reviewed FHx: non contributory Review of Systems All Other Systems: negative except mentioned in HPI Physical Exam Physical Exam Narrative Physical exam: General: Patient Chronically ill HEENT: dry oral mucous membranes Neck limited ROM CV: tachycardia, no murmurs. Abdomen, soft nondistended Extremity decreased ROM, Neuro: Moves all extremities, dehydration mena catheter draining small amount of cloudy urine. Last 24 Hour Vital Signs Date Time Temp Pulse Resp B/P (MAP) Pulse Ox O2 Delivery O2 Flow Rate FiO2 03/12/18 12:00 95 03/12/18 09:58 97 18 Room Air 21 03/12/18 09:00 Room Air 03/12/18 08:00 110 03/12/18 08:00 99.2 103 18 104/59 (74) 95 99.2 03/12/18 04:00 110 03/12/18 04:00 99.0 112 18 115/68 (84) 95 99.0 03/12/18 00:00 Room Air 03/12/18 00:00 114 03/11/18 23:31 118 03/11/18 23:30 99.4 118 20 113/63 (80) 97 99.4 03/11/18 23:15 99.3 18 113/79 93 Room Air 99.3 03/11/18 22:38 99.3 18 113/79 93 Room Air 99.3 03/11/18 18:40 99.3 125 18 103/67 93 Room Air 99.3 Intake and Output 03/11/18 03/12/18 19:00 07:00 Intake Total 0 ml Output Total 100 ml Balance -100 ml Intake Oral 0 ml Output Urine Total 100 ml # Voids 2 # Bowel Movements 2 Laboratory Tests Test 03/11/18 19:36 03/11/18 20:03 03/11/18 23:13 03/12/18 04:50 White Blood Count 22.4 K/UL (4.8-10.8) *H Red Blood Count 5.12 M/UL (4.20-5.40) Hemoglobin 11.6 G/DL (12.0-16.0) L Hematocrit 37.2 % (37.0-47.0) Mean Corpuscular Volume 73 FL (80-99) L Mean Corpuscular Hemoglobin 22.6 PG (27.0-31.0) L Mean Corpuscular Hemoglobin Concent 31.1 G/DL (32.0-36.0) L Red Cell Distribution Width 15.9 % (11.6-14.8) H Platelet Count 369 K/UL (150-450) Mean Platelet Volume 5.7 FL (6.5-10.1) L Neutrophils (%) (Auto) % (45.0-75.0) Lymphocytes (%) (Auto) % (20.0-45.0) Monocytes (%) (Auto) % (1.0-10.0) Eosinophils (%) (Auto) % (0.0-3.0) Basophils (%) (Auto) % (0.0-2.0) Differential Total Cells Counted 100 Neutrophils % (Manual) 80 % (45-75) H Lymphocytes % (Manual) 14 % (20-45) L Monocytes % (Manual) 5 % (1-10) Eosinophils % (Manual) 0 % (0-3) Basophils % (Manual) 0 % (0-2) Band Neutrophils 1 % (0-8) Platelet Estimate Adequate Platelet Morphology Normal Hypochromasia 1+ Anisocytosis 1+ Sodium Level 132 MMOL/L (136-145) L Pending Potassium Level 6.0 MMOL/L (3.5-5.1) *H Pending Chloride Level 99 MMOL/L (98-107) Pending Carbon Dioxide Level 21 MMOL/L (21-32) Pending Anion Gap 13 mmol/L (5-15) Blood Urea Nitrogen 54 mg/dL (7-18) H Pending Creatinine 1.1 MG/DL (0.55-1.30) Pending Estimat Glomerular Filtration Rate 53.7 mL/min (>60) Pending Glucose Level 171 MG/DL (74-106) H Pending Calcium Level 8.9 MG/DL (8.5-10.1) Pending Total Bilirubin 0.5 MG/DL (0.2-1.0) Aspartate Amino Transf (AST/SGOT) 12 U/L (15-37) L Alanine Aminotransferase (ALT/SGPT) 9 U/L (12-78) L Alkaline Phosphatase 136 U/L (46-116) H Total Creatine Kinase 17 U/L (26-308) L Creatine Kinase MB < 0.5 NG/ML (0.0-3.6) Creatine Kinase MB Relative Index 2.9 Troponin I 0.000 ng/mL (0.000-0.056) Total Protein 9.1 G/DL (6.4-8.2) H Albumin 3.1 G/DL (3.4-5.0) L Globulin 6.0 g/dL Albumin/Globulin Ratio 0.5 (1.0-2.7) L Urine Color Yellow Urine Appearance Slightly cloudy Urine pH 9 (4.5-8.0) Urine Specific [place] 1.010 (1.005-1.035) Urine Protein 3+ (NEGATIVE) H Urine Glucose (UA) Negative (NEGATIVE) Urine Ketones Negative (NEGATIVE) Urine Occult Blood 5+ (NEGATIVE) H Urine Nitrite Negative (NEGATIVE) Urine Bilirubin Negative (NEGATIVE) Urine Urobilinogen Normal MG/DL (0.0-1.0) Urine Leukocyte Esterase 3+ (NEGATIVE) H Urine RBC 10-15 /HPF (0 - 2) H Urine WBC 5-10 /HPF (0 - 2) H Urine Squamous Epithelial Cells Few /LPF (NONE/OCC) Urine Uric Acid Crystals Few /LPF (NONE) H Urine Amorphous Sediment Few /LPF (NONE) H Urine Bacteria Many /HPF (NONE) H Lactic Acid Level 2.20 mmol/L (0.4-2.0) H Height (Feet): 5 Height (Inches): 2.00 Weight (Pounds): 120 Medications Current Medications Medications (Trade) Dose Ordered Sig/Sandeep Route PRN Reason Start Time Stop Time Status Last Admin Dose Admin Acetaminophen (Tylenol) 650 mg Q4H PRN ORAL fever 03/12/18 06:45 04/11/18 06:44 Albuterol/ Ipratropium (Albuterol/ Ipratropium) 3 ml Q4H PRN HHN Shortness of Breath 03/12/18 06:45 03/17/18 06:44 Heparin Sodium (Porcine) (Heparin 5000 units/ml) 5,000 units EVERY 12 HOURS SUBQ 03/12/18 09:00 04/11/18 08:59 03/12/18 08:23 Morphine Sulfate (Morphine Sulfate) 2 mg Q4H PRN IVP Moderate Pain (Pain Scale 4-6) 03/12/18 06:45 03/19/18 06:44 Ondansetron HCl (Zofran) 4 mg Q6H PRN IVP Nausea & Vomiting 03/12/18 06:45 04/11/18 06:44 Phenazopyridine HCl (Pyridium) 100 mg DAILY PRN ORAL dysuria 03/12/18 06:45 04/11/18 06:44 Polyethylene Glycol (Miralax) 17 gm DAILYPRN PRN ORAL Constipation 03/12/18 06:45 04/11/18 06:44 Sodium Chloride 1,000 ml @ 150 mls/hr Q6H40M IV 03/12/18 06:45 04/11/18 06:44 03/12/18 06:54 Temazepam (Restoril) 15 mg HSPRN PRN ORAL Insomnia 03/12/18 06:45 03/19/18 06:44 Vancomycin HCl (Vanco rx to dose) 1 ea DAILY PRN MISC . 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 Will continue to follow along with you. Discussed with Joaquina Rivera M.D. Mar 12, 2018 12:40
[2018-03-12] MEDS ORDERED: Cefepime HCl 1 GM in D5W 55 ML IVPB SCH (14:00)
[2018-03-12 15:03] LABS: ANION GAP 13 mmol/L (5-15); BLOOD UREA NITROGEN 31 mg/dL (7-18); CALCIUM 7.7 MG/DL (8.5-10.1); CARBON DIOXIDE 22 MMOL/L (21-32); CHLORIDE 100 MMOL/L (98-107); CREATININE 0.6 MG/DL (0.55-1.30); POTASSIUM 4.2 MMOL/L (3.5-5.1); SODIUM 135 MMOL/L (136-145)
[2018-03-12 16:28] VITALS: BP 116/50
[2018-03-12 20:00] VITALS: BP 130/71
[2018-03-12] MEDS: Vancomycin 1 GM in D5W 275 ML IVPB SCH (21:01)
[2018-03-12] MEDS: Heparin 5000 units/ml inj SUBQ SCH (21:05)
[2018-03-12 23:54] LABS: BILIRUBIN, URINE NEGATIVE (NEGATIVE); COLOR,URINE PALE YELLOW; GLUCOSE, URINE (UA) NEGATIVE (NEGATIVE); KETONES,URINE NEGATIVE (NEGATIVE); LEUKOCYTE ESTERASE ,URINE 3+ (NEGATIVE); NITRITE,URINE NEGATIVE (NEGATIVE); PH,URINE 8 (4.5-8.0); PROTEIN,URINE 2+ (NEGATIVE); UROBILINOGEN,URINE NORMAL MG/DL (0.0-1.0)
[2018-03-13] VITALS: BP 127/68
[2018-03-13 00:06] LABS: APPEARANCE,URINE CLOUDY
[2018-03-13] MEDS ORDERED: Sodium Chloride 500ML 500 ML IV ONE (00:30)
[2018-03-13] MEDS: Cefepime HCl 1 GM in D5W 55 ML IVPB SCH ×3 (00:42→20:36)
[2018-03-13 04:00] VITALS: BP 92/51
--- NOTE | 2018-03-13 07:32 | Consultation ---
DATE OF CONSULTATION: 03/12/2018 UROLOGY CONSULTATION CONSULTING PHYSICIAN: Waldemar Lui M.D. ATTENDING/REFERRING PHYSICIAN: Chyna Pryor M.D. CHIEF COMPLAINT/HISTORY OF PRESENT ILLNESS: I was asked by Dr. Pryor to evaluate this 47-year-old female regarding history of a suprapubic tube in the setting of infection and poor urine output. Briefly, the patient has history of spina bifida and neurogenic bladder secondary to same. She is managed with a chronic indwelling suprapubic catheter. The output decreased today. The catheter was changed last about 3 weeks ago. Given the above, I was asked to evaluate the patient and change the catheter. PAST MEDICAL HISTORY: 1. Spina bifida with paraplegia. 2. Neurogenic bladder secondary to same. 3. Urinary tract infection. 4. Hydrocephalus. 5. Restrictive lung disease. 6. Decubitus ulceration. 7. Anemia. PAST SURGICAL HISTORY: 1. SP tube placement. 2. Ventriculoperitoneal shunt. 3. Spinal surgery. MEDICATIONS: Please see chart for current medications and administration details. ALLERGIES: Include penicillin. SOCIAL HISTORY: Unremarkable for tobacco, alcohol, or drug use. FAMILY HISTORY: Noncontributory. REVIEW OF SYSTEMS: A 14-system review of systems is limited by the patient's difficulty communicating, but appeared unremarkable outside of what was described above. PHYSICAL EXAMINATION: GENERAL: The patient is a middle-aged female, awake and alert, somewhat oriented, in no obvious distress. HEENT: NC/AT. EOMI. Oropharynx clear. NECK: Supple. Full range of motion. CHEST: Within normal limits. ABDOMEN: Soft, nontender, and nondistended. EXTREMITIES: Normally perfused. No cyanosis, clubbing, or edema. BACK: No CVA tenderness to percussion. NEUROLOGIC: Notable for spina bifida and paraplegia. GENITOURINARY: Reveals a suprapubic catheter in place with poor urine output. LABORATORY DATA: White blood cell count 22.4, hematocrit 37.2, platelets 369,000. Sodium 135, potassium 4.2, chloride 100, bicarbonate 22, BUN 31, creatinine 0.6, glucose 122, calcium 7.7. Urinalysis, specific gravity 1.010, pH 9.0. Dip test notable for 3+ protein, 5+ occult blood, and 3+ leukocyte esterase. Microanalysis with 10-15 red blood cells and 5-10 white blood cells per high-power field, there are many bacteria seen. Microbiology, sacral wound culture and urine culture pending. DIAGNOSTIC IMAGING: Chest x-ray, stable findings, no acute process. ASSESSMENT AND PLAN: In summary, the patient is a 47-year-old with history of spina bifida and neurogenic bladder secondary to the same. She is managed with a suprapubic catheter. She presents to the hospital with decreased output from the same. Physical exam reveals a suprapubic catheter in place and the patient with spina bifida and paraplegia with poor output. Laboratory data is notable for elevated white blood cell count and evidence of infection of the urinary tract. There is no relevant diagnostic imaging. Today at the bedside, I removed and replaced the patient's suprapubic catheter. It was hand-irrigated and irrigated easily indicating good position within the bladder. It can be kept in place as needed. The patient should be continued on antibiotics. She is currently receiving cefepime and vancomycin for antibiotic coverage. These can be adjusted as culture results warrant. Once the infection has been treated, she can be discharged home to finish 10 days of total therapy. Her suprapubic catheter can be changed as needed per her usual regimen. Thank you for allowing me to participate in the care of this nice lady. Please do not hesitate to contact me for any questions that you may further have regarding her care. I will be happy to see her with you as needed. Waldemar Lui M.D. DR: Laith JOB#: [id number] CC:
[2018-03-13 07:36] LABS: BASOPHILS % (AUTO) 0.6 % (0.0-2.0); EOSINOPHILS % (AUTO) 1.3 % (0.0-3.0); HEMATOCRIT 29.5 % (37.0-47.0); HEMOGLOBIN 9.3 G/DL (12.0-16.0); MEAN CORPUSCULAR VOLUME 72 FL (80-99); NEUTROPHILS % (AUTO) 70.1 % (45.0-75.0); PLATELET COUNT 275 K/UL (150-450); RED CELL DISTRIBUTION WIDTH 16.2 % (11.6-14.8); WHITE BLOOD COUNT 8.7 K/UL (4.8-10.8)
[2018-03-13 07:50] LABS: ALANINE AMINOTRANSFERASE 11 U/L (12-78); ALBUMIN 2.3 G/DL (3.4-5.0); ALBUMIN/GLOBULIN RATIO 0.5 (1.0-2.7); ALKALINE PHOSPHATASE 120 U/L (46-116); ANION GAP 12 mmol/L (5-15); ASPARTATE AMINO TRANSFERASE 12 U/L (15-37); BILIRUBIN,TOTAL 0.3 MG/DL (0.2-1.0); BLOOD UREA NITROGEN 19 mg/dL (7-18); CALCIUM 7.6 MG/DL (8.5-10.1); CARBON DIOXIDE 23 MMOL/L (21-32); CHLORIDE 106 MMOL/L (98-107); CREATININE 0.5 MG/DL (0.55-1.30); POTASSIUM 2.9 MMOL/L (3.5-5.1); SODIUM 141 MMOL/L (136-145)
[2018-03-13 08:00] VITALS: BP 112/62
[2018-03-13] MEDS: Heparin 5000 units/ml inj SUBQ SCH ×2 (08:09→20:08)
[2018-03-13] MEDS: Vancomycin 1 GM in D5W 275 ML IVPB SCH (08:16)
[2018-03-13 12:00] VITALS: BP 107/51
--- NOTE | 2018-03-13 12:08 | Pulmonology Progress Note ---
Assessment/Plan Problems: (1) Sepsis (2) Urinary tract infection (3) ATN (acute tubular necrosis) (4) Hyperkalemia (5) Paraplegia (6) HEALTH TECH (ventriculoperitoneal) shunt status (7) Spina bifida Assessment/Plan bun/creatinine decreasing suprapubic catheter was changed Urology consult was appreciated check cultures continue abx dvt prophylaxis. Subjective ROS Limited/Unobtainable: No Constitutional: Reports: no symptoms HEENT: Repors: no symptoms Allergies: Coded Allergies: PENICILLIN G (Verified Allergy, Unknown, 03/12/18) Tolerates cabapenem, cephalosporin Objective Last 24 Hour Vital Signs Date Time Temp Pulse Resp B/P (MAP) Pulse Ox O2 Delivery O2 Flow Rate FiO2 03/13/18 09:00 Room Air 03/13/18 08:00 97.7 89 18 112/62 (79) 97.7 03/13/18 04:00 98.9 98 19 92/51 (65) 94 98.9 03/13/18 01:40 99.2 03/13/18 00:41 100.0 03/13/18 00:00 100.0 103 19 127/68 (87) 93 100.0 03/12/18 21:00 Room Air 03/12/18 20:00 100.0 108 19 130/71 (90) 92 100.0 03/12/18 16:28 98.1 98 20 116/50 (72) 97 98.1 Intake and Output 03/12/18 03/13/18 19:00 07:00 Intake Total 270 ml 1050.0 ml Output Total 1300 ml Balance 270 ml -250.0 ml Intake Oral 120 ml IV Total 150 ml 1050.0 ml Output Urine Total 1300 ml # Voids 2 2 General Appearance: WD/WN HEENT: normocephalic, atraumatic Cardiovascular: normal peripheral pulses, normal rate Abdomen: normal bowel sounds, soft, non tender, non distended Genitourinary: normal external genitalia Extremities: no clubbing Skin: no rash Neurologic/Psychiatric: normal mood/affect Microbiology Date/Time Source Procedure Growth Status 03/11/18 20:03 Blood Blood Culture - Preliminary NO GROWTH AFTER 24 HOURS Resulted 03/11/18 20:03 Blood Blood Culture - Preliminary NO GROWTH AFTER 24 HOURS Resulted 03/11/18 23:30 Sacral Wound Gram Stain - Final Resulted 03/11/18 23:30 Wound Culture - Preliminary Staphylococcus Aureus Gram Negative Bacillus 2 Resulted Laboratory Tests 03/12/18 14:10: Sodium Level 135L, Potassium Level 4.2, Chloride Level 100, Carbon Dioxide Level 22, Anion Gap 13, Blood Urea Nitrogen 31H, Creatinine 0.6, Estimat Glomerular Filtration Rate > 60, Glucose Level 122H, Calcium Level 7.7L 03/12/18 22:40: Urine Color Pale yellow, Urine Appearance Cloudy, Urine pH 8, Urine Specific [place] 1.010, Urine Protein 2+H, Urine Glucose (UA) Negative, Urine Ketones Negative, Urine Occult Blood 5+H, Urine Nitrite Negative, Urine Bilirubin Negative, Urine Urobilinogen Normal, Urine Leukocyte Esterase 3+H, Urine RBC TntcH, Urine WBC TntcH, Urine Squamous Epithelial Cells Few, Urine Bacteria ManyH 03/13/18 06:05: Sodium Level 141, Potassium Level 2.9L, Chloride Level 106, Carbon Dioxide Level 23, Anion Gap 12, Blood Urea Nitrogen 19H, Creatinine 0.5L, Estimat Glomerular Filtration Rate > 60, Glucose Level 100, Calcium Level 7.6L, White Blood Count 8.7#, Red Blood Count 4.10L, Hemoglobin 9.3L, Hematocrit 29.5L, Mean Corpuscular Volume 72L, Mean Corpuscular Hemoglobin 22.8L, Mean Corpuscular Hemoglobin Concent 31.7L, Red Cell Distribution Width 16.2H, Platelet Count 275, Mean Platelet Volume 6.9, Neutrophils (%) (Auto) 70.1, Lymphocytes (%) (Auto) 18.0L, Monocytes (%) (Auto) 10.0, Eosinophils (%) (Auto) 1.3, Basophils (%) (Auto) 0.6, Total Bilirubin 0.3, Aspartate Amino Transf (AST/ SGOT) 12L, Alanine Aminotransferase (ALT/SGPT) 11L, Alkaline Phosphatase 120H, Total Protein 6.7, Albumin 2.3L, Globulin 4.4, Albumin/Globulin Ratio 0.5L Current Medications Medications (Trade) Dose Ordered Sig/Sandeep Route PRN Reason Start Time Stop Time Status Last Admin Dose Admin Acetaminophen (Tylenol) 650 mg Q4H PRN ORAL fever 03/12/18 16:20 04/11/18 16:19 03/13/18 00:41 Albuterol/ Ipratropium (Albuterol/ Ipratropium) 3 ml Q4H PRN HHN Shortness of Breath 03/12/18 16:30 03/17/18 16:29 Cefepime HCl 1 gm/ Dextrose 55 ml @ 110 mls/hr Q12HR@0930,2130 IVPB 03/12/18 21:30 03/19/18 21:29 03/13/18 10:24 Heparin Sodium (Porcine) (Heparin 5000 units/ml) 5,000 units EVERY 12 HOURS SUBQ 03/12/18 21:00 04/11/18 08:59 03/13/18 08:09 Morphine Sulfate (Morphine Sulfate) 2 mg Q4H PRN IVP Moderate Pain (Pain Scale 4-6) 03/12/18 16:30 03/19/18 16:29 Ondansetron HCl (Zofran) 4 mg Q6H PRN IVP Nausea & Vomiting 03/12/18 16:30 04/11/18 16:29 Phenazopyridine HCl (Pyridium) 100 mg DAILYPRN PRN ORAL dysuria 03/12/18 16:30 04/11/18 16:29 Polyethylene Glycol (Miralax) 17 gm DAILYPRN PRN ORAL Constipation 03/13/18 16:30 04/11/18 16:29 Sodium Chloride 1,000 ml @ 150 mls/hr Q6H40M IV 03/12/18 16:15 04/11/18 06:44 03/13/18 05:03 Temazepam (Restoril) 15 mg HSPRN PRN ORAL Insomnia 03/12/18 21:00 03/19/18 20:59 Vancomycin HCl (Vanco rx to dose) 1 ea DAILY PRN MISC . 03/12/18 16:30 04/11/18 16:29 Vancomycin HCl 1 gm/Dextrose 275 ml @ 183.3 mls/ hr Q12H IVPB 03/12/18 20:00 03/17/18 07:59 03/13/18 08:16 Chyna Pryor MD Mar 13, 2018 12:08
--- NOTE | 2018-03-13 15:49 | Infectious Diseases Prog Note ---
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 Will continue to follow along with you. Discussed with RN. Subjective Allergies: Coded Allergies: PENICILLIN G (Verified Allergy, Unknown, 03/12/18) Tolerates cabapenem, cephalosporin Subjective tm 100 leukocytois resolved bcx ntd ucx p Objective Vital Signs Last 24 Hour Vital Signs Date Time Temp Pulse Resp B/P (MAP) Pulse Ox O2 Delivery O2 Flow Rate FiO2 03/13/18 12:00 98.1 82 20 107/51 (69) 98.1 03/13/18 09:00 Room Air 03/13/18 08:00 97.7 89 18 112/62 (79) 97.7 03/13/18 04:00 98.9 98 19 92/51 (65) 94 98.9 03/13/18 01:40 99.2 03/13/18 00:41 100.0 03/13/18 00:00 100.0 103 19 127/68 (87) 93 100.0 03/12/18 21:00 Room Air 03/12/18 20:00 100.0 108 19 130/71 (90) 92 100.0 03/12/18 16:28 98.1 98 20 116/50 (72) 97 98.1 Height (Feet): 5 Height (Inches): 2.00 Weight (Pounds): 133 Objective General: Patient Chronically ill HEENT: dry oral mucous membranes Neck limited ROM CV: tachycardia, no murmurs. Abdomen, soft nondistended Extremity decreased ROM, Neuro: Moves all extremities, dehydration mena catheter draining small amount of cloudy urine. Microbiology Date/Time Source Procedure Growth Status 03/11/18 20:03 Blood Blood Culture - Preliminary NO GROWTH AFTER 24 HOURS Resulted 03/11/18 20:03 Blood Blood Culture - Preliminary NO GROWTH AFTER 24 HOURS Resulted 03/11/18 23:30 Sacral Wound Gram Stain - Final Resulted 03/11/18 23:30 Wound Culture - Preliminary Staphylococcus Aureus Gram Negative Bacillus 2 Resulted Laboratory Tests Test 03/12/18 22:40 03/13/18 06:05 Urine Color Pale yellow Urine Appearance Cloudy Urine pH 8 (4.5-8.0) Urine Specific [place] 1.010 (1.005-1.035) Urine Protein 2+ (NEGATIVE) H Urine Glucose (UA) Negative (NEGATIVE) Urine Ketones Negative (NEGATIVE) Urine Occult Blood 5+ (NEGATIVE) H Urine Nitrite Negative (NEGATIVE) Urine Bilirubin Negative (NEGATIVE) Urine Urobilinogen Normal MG/DL (0.0-1.0) Urine Leukocyte Esterase 3+ (NEGATIVE) H Urine RBC Tntc /HPF (0 - 2) H Urine WBC Tntc /HPF (0 - 2) H Urine Squamous Epithelial Cells Few /LPF (NONE/OCC) Urine Bacteria Many /HPF (NONE) H White Blood Count 8.7 K/UL (4.8-10.8) # Red Blood Count 4.10 M/UL (4.20-5.40) L Hemoglobin 9.3 G/DL (12.0-16.0) L Hematocrit 29.5 % (37.0-47.0) L Mean Corpuscular Volume 72 FL (80-99) L Mean Corpuscular Hemoglobin 22.8 PG (27.0-31.0) L Mean Corpuscular Hemoglobin Concent 31.7 G/DL (32.0-36.0) L Red Cell Distribution Width 16.2 % (11.6-14.8) H Platelet Count 275 K/UL (150-450) Mean Platelet Volume 6.9 FL (6.5-10.1) Neutrophils (%) (Auto) 70.1 % (45.0-75.0) Lymphocytes (%) (Auto) 18.0 % (20.0-45.0) L Monocytes (%) (Auto) 10.0 % (1.0-10.0) Eosinophils (%) (Auto) 1.3 % (0.0-3.0) Basophils (%) (Auto) 0.6 % (0.0-2.0) Sodium Level 141 MMOL/L (136-145) Potassium Level 2.9 MMOL/L (3.5-5.1) L Chloride Level 106 MMOL/L (98-107) Carbon Dioxide Level 23 MMOL/L (21-32) Anion Gap 12 mmol/L (5-15) Blood Urea Nitrogen 19 mg/dL (7-18) H Creatinine 0.5 MG/DL (0.55-1.30) L Estimat Glomerular Filtration Rate > 60 mL/min (>60) Glucose Level 100 MG/DL (74-106) Calcium Level 7.6 MG/DL (8.5-10.1) L Total Bilirubin 0.3 MG/DL (0.2-1.0) Aspartate Amino Transf (AST/SGOT) 12 U/L (15-37) L Alanine Aminotransferase (ALT/SGPT) 11 U/L (12-78) L Alkaline Phosphatase 120 U/L (46-116) H Total Protein 6.7 G/DL (6.4-8.2) Albumin 2.3 G/DL (3.4-5.0) L Globulin 4.4 g/dL Albumin/Globulin Ratio 0.5 (1.0-2.7) L Current Medications Medications (Trade) Dose Ordered Sig/Sandeep Route PRN Reason Start Time Stop Time Status Last Admin Dose Admin Acetaminophen (Tylenol) 650 mg Q4H PRN ORAL fever 03/12/18 16:20 04/11/18 16:19 03/13/18 00:41 Albuterol/ Ipratropium (Albuterol/ Ipratropium) 3 ml Q4H PRN HHN Shortness of Breath 03/12/18 16:30 03/17/18 16:29 Cefepime HCl 1 gm/ Dextrose 55 ml @ 110 mls/hr Q12HR@0930,2130 IVPB 03/12/18 21:30 03/19/18 21:29 03/13/18 10:24 Heparin Sodium (Porcine) (Heparin 5000 units/ml) 5,000 units EVERY 12 HOURS SUBQ 03/12/18 21:00 04/11/18 08:59 03/13/18 08:09 Morphine Sulfate (Morphine Sulfate) 2 mg Q4H PRN IVP Moderate Pain (Pain Scale 4-6) 03/12/18 16:30 03/19/18 16:29 Ondansetron HCl (Zofran) 4 mg Q6H PRN IVP Nausea & Vomiting 03/12/18 16:30 04/11/18 16:29 Phenazopyridine HCl (Pyridium) 100 mg DAILYPRN PRN ORAL dysuria 03/12/18 16:30 04/11/18 16:29 Polyethylene Glycol (Miralax) 17 gm DAILYPRN PRN ORAL Constipation 03/13/18 16:30 04/11/18 16:29 Potassium Chloride 100 ml @ 100 mls/hr Q1H IVPB 03/13/18 12:30 03/13/18 16:29 03/13/18 14:58 Sodium Chloride 1,000 ml @ 50 mls/hr Q20H IV 03/13/18 12:30 04/11/18 12:29 03/13/18 12:14 Temazepam (Restoril) 15 mg HSPRN PRN ORAL Insomnia 03/12/18 21:00 03/19/18 20:59 Vancomycin HCl (Vanco rx to dose) 1 ea DAILY PRN MISC . 03/12/18 16:30 04/11/18 16:29 Vancomycin HCl 1 gm/Dextrose 275 ml @ 183.3 mls/ hr Q12H IVPB 03/12/18 20:00 03/17/18 07:59 03/13/18 08:16 Joaquina Hill M.D. Mar 13, 2018 15:49
[2018-03-13 16:00] VITALS: BP 110/59
[2018-03-13] MEDS ORDERED: Miralax 17gm pkt ORAL PRN (16:30)
[2018-03-13 20:00] VITALS: BP 127/61
[2018-03-14] VITALS: BP 127/79
[2018-03-14 04:00] VITALS: BP 112/70
[2018-03-14 04:54] LABS: BASOPHILS % (AUTO) 0.7 % (0.0-2.0); EOSINOPHILS % (AUTO) 2.6 % (0.0-3.0); HEMATOCRIT 29.7 % (37.0-47.0); HEMOGLOBIN 9.2 G/DL (12.0-16.0); LYMPHOCYTES % (AUTO) 23.6 % (20.0-45.0); MEAN CORPUSCULAR VOLUME 72 FL (80-99); MONOCYTES % (AUTO) 8.9 % (1.0-10.0); NEUTROPHILS % (AUTO) 64.3 % (45.0-75.0); PLATELET COUNT 299 K/UL (150-450); RED CELL DISTRIBUTION WIDTH 16.4 % (11.6-14.8); WHITE BLOOD COUNT 9.1 K/UL (4.8-10.8)
[2018-03-14 05:04] LABS: ALANINE AMINOTRANSFERASE 11 U/L (12-78); ALBUMIN 2.3 G/DL (3.4-5.0); ALBUMIN/GLOBULIN RATIO 0.4 (1.0-2.7); ALKALINE PHOSPHATASE 120 U/L (46-116); ANION GAP 10 mmol/L (5-15); ASPARTATE AMINO TRANSFERASE 10 U/L (15-37); BILIRUBIN,TOTAL 0.2 MG/DL (0.2-1.0); BLOOD UREA NITROGEN 14 mg/dL (7-18); CALCIUM 8.1 MG/DL (8.5-10.1); CARBON DIOXIDE 27 MMOL/L (21-32); CHLORIDE 104 MMOL/L (98-107); CREATININE 0.6 MG/DL (0.55-1.30); PHOSPHORUS 2.7 MG/DL (2.5-4.9); SODIUM 141 MMOL/L (136-145)
[2018-03-14 08:00] VITALS: BP 123/73
[2018-03-14] MEDS ORDERED: Vancomycin 1gm/D5W 275ml IVPB SCH ×2 (08:00)
[2018-03-14] MEDS: Heparin 5000 units/ml inj SUBQ SCH ×2 (09:19→21:14)
[2018-03-14] MEDS: Cefepime HCl 1 GM in D5W 55 ML IVPB SCH ×2 (11:01→21:15)
[2018-03-14 12:00] VITALS: BP 137/78
--- NOTE | 2018-03-14 12:09 | Infectious Diseases Prog Note ---
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 Will continue to follow along with you. Discussed with RN. Subjective Allergies: Coded Allergies: PENICILLIN G (Verified Allergy, Unknown, 03/12/18) Tolerates cabapenem, cephalosporin Subjective afebrile in ~36hrs no leukocytois bcx ntd Objective Vital Signs Last 24 Hour Vital Signs Date Time Temp Pulse Resp B/P (MAP) Pulse Ox O2 Delivery O2 Flow Rate FiO2 03/14/18 08:00 97.7 83 20 123/73 (90) 97.7 03/14/18 07:10 90 19 Room Air 21 03/14/18 04:00 99.3 88 20 112/70 (84) 94 99.3 03/14/18 00:00 99.9 95 20 127/79 (95) 94 99.9 03/13/18 21:00 Room Air 03/13/18 20:00 98.6 95 18 127/61 (83) 93 98.6 03/13/18 19:10 92 20 Room Air 21 03/13/18 16:00 98.2 86 18 110/59 (76) 98.2 Height (Feet): 5 Height (Inches): 2.00 Weight (Pounds): 133 Objective General: Patient Chronically ill HEENT: dry oral mucous membranes Neck limited ROM CV: tachycardia, no murmurs. Abdomen, soft nondistended Extremity decreased ROM, Neuro: Moves all extremities, dehydration mena catheter draining small amount of cloudy urine. Microbiology Date/Time Source Procedure Growth Status 03/12/18 07:10 Blood Blood Culture - Preliminary NO GROWTH AFTER 24 HOURS Resulted 03/12/18 07:00 Blood Blood Culture - Preliminary NO GROWTH AFTER 24 HOURS Resulted 03/11/18 20:03 Blood Blood Culture - Preliminary NO GROWTH AFTER 48 HOURS Resulted 03/11/18 20:03 Blood Blood Culture - Preliminary NO GROWTH AFTER 48 HOURS Resulted 03/12/18 22:40 Urine,Clean Catch Urine Culture - Preliminary NO GROWTH Resulted 03/11/18 23:30 Sacral Wound Gram Stain - Final Complete 03/11/18 23:30 Wound Culture - Final Staphylococcus Aureus - Mrsa Proteus Mirabilis Diphtheroids Complete Laboratory Tests Test 03/13/18 19:20 03/14/18 04:20 Vancomycin Level Trough 39.4 ug/mL (5.0-12.0) H White Blood Count 9.1 K/UL (4.8-10.8) Red Blood Count 4.10 M/UL (4.20-5.40) L Hemoglobin 9.2 G/DL (12.0-16.0) L Hematocrit 29.7 % (37.0-47.0) L Mean Corpuscular Volume 72 FL (80-99) L Mean Corpuscular Hemoglobin 22.4 PG (27.0-31.0) L Mean Corpuscular Hemoglobin Concent 31.0 G/DL (32.0-36.0) L Red Cell Distribution Width 16.4 % (11.6-14.8) H Platelet Count 299 K/UL (150-450) Mean Platelet Volume 6.1 FL (6.5-10.1) L Neutrophils (%) (Auto) 64.3 % (45.0-75.0) Lymphocytes (%) (Auto) 23.6 % (20.0-45.0) Monocytes (%) (Auto) 8.9 % (1.0-10.0) Eosinophils (%) (Auto) 2.6 % (0.0-3.0) Basophils (%) (Auto) 0.7 % (0.0-2.0) Sodium Level 141 MMOL/L (136-145) Potassium Level 3.0 MMOL/L (3.5-5.1) L Chloride Level 104 MMOL/L (98-107) Carbon Dioxide Level 27 MMOL/L (21-32) Anion Gap 10 mmol/L (5-15) Blood Urea Nitrogen 14 mg/dL (7-18) Creatinine 0.6 MG/DL (0.55-1.30) Estimat Glomerular Filtration Rate > 60 mL/min (>60) Glucose Level 105 MG/DL (74-106) Calcium Level 8.1 MG/DL (8.5-10.1) L Phosphorus Level 2.7 MG/DL (2.5-4.9) Magnesium Level 1.5 MG/DL (1.8-2.4) L Total Bilirubin 0.2 MG/DL (0.2-1.0) Aspartate Amino Transf (AST/SGOT) 10 U/L (15-37) L Alanine Aminotransferase (ALT/SGPT) 11 U/L (12-78) L Alkaline Phosphatase 120 U/L (46-116) H Total Protein 7.7 G/DL (6.4-8.2) Albumin 2.3 G/DL (3.4-5.0) L Globulin 5.4 g/dL Albumin/Globulin Ratio 0.4 (1.0-2.7) L Random Vancomycin Level 12.4 ug/mL Current Medications Medications (Trade) Dose Ordered Sig/Sandeep Route PRN Reason Start Time Stop Time Status Last Admin Dose Admin Acetaminophen (Tylenol) 650 mg Q4H PRN ORAL fever 03/12/18 16:20 04/11/18 16:19 03/13/18 00:41 Albuterol/ Ipratropium (Albuterol/ Ipratropium) 3 ml Q4H PRN HHN Shortness of Breath 03/12/18 16:30 03/17/18 16:29 Cefepime HCl 1 gm/ Dextrose 55 ml @ 110 mls/hr Q12HR@0930,2130 IVPB 03/12/18 21:30 03/19/18 21:29 03/14/18 11:01 Heparin Sodium (Porcine) (Heparin 5000 units/ml) 5,000 units EVERY 12 HOURS SUBQ 03/12/18 21:00 04/11/18 08:59 03/14/18 09:19 Morphine Sulfate (Morphine Sulfate) 2 mg Q4H PRN IVP Moderate Pain (Pain Scale 4-6) 03/12/18 16:30 03/19/18 16:29 Ondansetron HCl (Zofran) 4 mg Q6H PRN IVP Nausea & Vomiting 03/12/18 16:30 04/11/18 16:29 Phenazopyridine HCl (Pyridium) 100 mg DAILYPRN PRN ORAL dysuria 03/12/18 16:30 04/11/18 16:29 Polyethylene Glycol (Miralax) 17 gm DAILYPRN PRN ORAL Constipation 03/13/18 16:30 04/11/18 16:29 Sodium Chloride 1,000 ml @ 50 mls/hr Q20H IV 03/13/18 12:30 04/11/18 12:29 03/14/18 09:17 Temazepam (Restoril) 15 mg HSPRN PRN ORAL Insomnia 03/12/18 21:00 03/19/18 20:59 Vancomycin HCl (Vanco rx to dose) 1 ea DAILY PRN MISC . 03/12/18 16:30 04/11/18 16:29 Vancomycin HCl 1 gm/Dextrose 275 ml @ 183.708 mls/hr Q24H IVPB 03/14/18 08:00 03/19/18 07:59 03/14/18 09:07 Joaquina Hill M.D. Mar 14, 2018 12:09
--- NOTE | 2018-03-14 12:38 | Pulmonology Progress Note ---
Assessment/Plan Problems: (1) Sepsis (2) Urinary tract infection (3) ATN (acute tubular necrosis) (4) Hyperkalemia (5) Paraplegia (6) PHARMACIST CRITICAL CARE (ventriculoperitoneal) shunt status (7) Spina bifida Assessment/Plan bun/creatinine decreasing suprapubic catheter was changed Urology consult was appreciated check cultures continue abx dvt prophylaxis. dc planning soon Subjective ROS Limited/Unobtainable: No Constitutional: Reports: no symptoms HEENT: Repors: no symptoms Respiratory: Reports: no symptoms Allergies: Coded Allergies: PENICILLIN G (Verified Allergy, Unknown, 03/12/18) Tolerates cabapenem, cephalosporin Objective Last 24 Hour Vital Signs Date Time Temp Pulse Resp B/P (MAP) Pulse Ox O2 Delivery O2 Flow Rate FiO2 03/14/18 12:00 97.6 63 137/78 (97) 98 97.6 03/14/18 08:00 97.7 83 20 123/73 (90) 97.7 03/14/18 07:10 90 19 Room Air 21 03/14/18 04:00 99.3 88 20 112/70 (84) 94 99.3 03/14/18 00:00 99.9 95 20 127/79 (95) 94 99.9 03/13/18 21:00 Room Air 03/13/18 20:00 98.6 95 18 127/61 (83) 93 98.6 03/13/18 19:10 92 20 Room Air 21 03/13/18 16:00 98.2 86 18 110/59 (76) 98.2 Intake and Output 03/13/18 03/14/18 19:00 07:00 Intake Total 1300 ml 260 ml Output Total 2200 ml 2550 ml Balance -900 ml -2290 ml Intake Oral 1250 ml 60 ml IV Total 50 ml 200 ml Output Urine Total 2200 ml 2550 ml General Appearance: WD/WN HEENT: normocephalic, atraumatic Respiratory/Chest: chest wall non-tender, lungs clear Breasts: no masses Cardiovascular: normal peripheral pulses, normal rate Abdomen: normal bowel sounds, soft, non tender Genitourinary: normal external genitalia Extremities: no clubbing Skin: no rash 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 Microbiology Date/Time Source Procedure Growth Status 03/12/18 07:10 Blood Blood Culture - Preliminary NO GROWTH AFTER 24 HOURS Resulted 03/12/18 07:00 Blood Blood Culture - Preliminary NO GROWTH AFTER 24 HOURS Resulted 03/11/18 20:03 Blood Blood Culture - Preliminary NO GROWTH AFTER 48 HOURS Resulted 03/11/18 20:03 Blood Blood Culture - Preliminary NO GROWTH AFTER 48 HOURS Resulted 03/12/18 22:40 Urine,Clean Catch Urine Culture - Preliminary NO GROWTH Resulted 03/11/18 23:30 Sacral Wound Gram Stain - Final Complete 03/11/18 23:30 Wound Culture - Final Staphylococcus Aureus - Mrsa Proteus Mirabilis Diphtheroids Complete Laboratory Tests 03/13/18 19:20: Vancomycin Level Trough 39.4H 03/14/18 04:20: White Blood Count 9.1, Red Blood Count 4.10L, Hemoglobin 9.2L, Hematocrit 29.7L , Mean Corpuscular Volume 72L, Mean Corpuscular Hemoglobin 22.4L, Mean Corpuscular Hemoglobin Concent 31.0L, Red Cell Distribution Width 16.4H, Platelet Count 299, Mean Platelet Volume 6.1L, Neutrophils (%) (Auto) 64.3, Lymphocytes (%) (Auto) 23.6, Monocytes (%) (Auto) 8.9, Eosinophils (%) (Auto) 2.6, Basophils (%) (Auto) 0.7, Sodium Level 141, Potassium Level 3.0L, Chloride Level 104, Carbon Dioxide Level 27, Anion Gap 10, Blood Urea Nitrogen 14, Creatinine 0.6, Estimat Glomerular Filtration Rate > 60, Glucose Level 105, Calcium Level 8.1L, Phosphorus Level 2.7, Magnesium Level 1.5L, Total Bilirubin 0.2, Aspartate Amino Transf (AST/SGOT) 10L, Alanine Aminotransferase (ALT/SGPT) 11L, Alkaline Phosphatase 120H, Total Protein 7.7, Albumin 2.3L, Globulin 5.4, Albumin/Globulin Ratio 0.4L, Random Vancomycin Level 12.4 Current Medications Medications (Trade) Dose Ordered Sig/Sandeep Route PRN Reason Start Time Stop Time Status Last Admin Dose Admin Acetaminophen (Tylenol) 650 mg Q4H PRN ORAL fever 03/12/18 16:20 04/11/18 16:19 03/13/18 00:41 Albuterol/ Ipratropium (Albuterol/ Ipratropium) 3 ml Q4H PRN HHN Shortness of Breath 03/12/18 16:30 03/17/18 16:29 Cefepime HCl 1 gm/ Dextrose 55 ml @ 110 mls/hr Q12HR@0930,2130 IVPB 03/12/18 21:30 03/19/18 21:29 03/14/18 11:01 Heparin Sodium (Porcine) (Heparin 5000 units/ml) 5,000 units EVERY 12 HOURS SUBQ 03/12/18 21:00 04/11/18 08:59 03/14/18 09:19 Morphine Sulfate (Morphine Sulfate) 2 mg Q4H PRN IVP Moderate Pain (Pain Scale 4-6) 03/12/18 16:30 03/19/18 16:29 Ondansetron HCl (Zofran) 4 mg Q6H PRN IVP Nausea & Vomiting 03/12/18 16:30 04/11/18 16:29 Phenazopyridine HCl (Pyridium) 100 mg DAILYPRN PRN ORAL dysuria 03/12/18 16:30 04/11/18 16:29 Polyethylene Glycol (Miralax) 17 gm DAILYPRN PRN ORAL Constipation 03/13/18 16:30 04/11/18 16:29 Sodium Chloride 1,000 ml @ 50 mls/hr Q20H IV 03/13/18 12:30 04/11/18 12:29 03/14/18 09:17 Temazepam (Restoril) 15 mg HSPRN PRN ORAL Insomnia 03/12/18 21:00 03/19/18 20:59 Chyna Pryor MD Mar 14, 2018 12:38
[2018-03-14 16:00] VITALS: BP 147/95
[2018-03-14 20:00] VITALS: BP 123/68
[2018-03-15] VITALS: BP 121/70
[2018-03-15 04:00] VITALS: BP 108/52
[2018-03-15 08:00] VITALS: BP 98/55
[2018-03-15] MEDS: Cefepime HCl 1 GM in D5W 55 ML IVPB SCH (08:46)
[2018-03-15] MEDS: Heparin 5000 units/ml inj SUBQ SCH (08:52)
[2018-03-15 12:00] VITALS: BP 134/69
--- NOTE | 2018-03-15 13:04 | Pulmonology Progress Note ---
Assessment/Plan Problems: (1) Sepsis (2) Urinary tract infection (3) ATN (acute tubular necrosis) (4) Hyperkalemia (5) Paraplegia (6) PART TIME RECEPTIONIST (ventriculoperitoneal) shunt status (7) Spina bifida Assessment/Plan urine culture negative sofar bun/creatinine decreasing suprapubic catheter was changed Urology consult was appreciated check cultures continue abx dvt prophylaxis. dc planning soon Subjective ROS Limited/Unobtainable: No Interval Events: doing better, afebrile Allergies: Coded Allergies: PENICILLIN G (Verified Allergy, Unknown, 03/12/18) Tolerates cabapenem, cephalosporin Objective Last 24 Hour Vital Signs Date Time Temp Pulse Resp B/P (MAP) Pulse Ox O2 Delivery O2 Flow Rate FiO2 03/15/18 12:00 97.5 90 21 134/69 (90) 94 97.5 03/15/18 09:00 Room Air 03/15/18 08:00 98.1 97 22 98/55 (69) 93 98.1 03/15/18 04:00 97.7 95 20 108/52 (70) 96 97.7 03/15/18 00:00 97.5 92 20 121/70 (87) 93 97.5 03/14/18 21:00 Room Air 03/14/18 20:00 98.1 87 20 123/68 (86) 95 98.1 03/14/18 19:02 88 18 Room Air 21 03/14/18 16:00 97.6 80 147/95 (112) 98 97.6 Intake and Output 03/14/18 03/15/18 19:00 07:00 Intake Total 1470 ml 915 ml Output Total 2000 ml 360 ml Balance -530 ml 555 ml Intake Oral 1320 ml 360 ml IV Total 150 ml 555 ml Output Urine Total 2000 ml 360 ml General Appearance: WD/WN HEENT: normocephalic, atraumatic Respiratory/Chest: chest wall non-tender, lungs clear Breasts: no masses Cardiovascular: normal peripheral pulses Abdomen: normal bowel sounds, soft, non tender Genitourinary: normal external genitalia Extremities: no cyanosis 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, no motor/sensory deficits Lymphatic: no neck adenopathy Musculoskeletal: normal muscle bulk Microbiology Date/Time Source Procedure Growth Status 03/12/18 22:40 Urine,Clean Catch Urine Culture - Preliminary NO GROWTH AFTER 24 HOURS Resulted Current Medications Medications (Trade) Dose Ordered Sig/Asndeep Route PRN Reason Start Time Stop Time Status Last Admin Dose Admin Acetaminophen (Tylenol) 650 mg Q4H PRN ORAL fever 03/12/18 16:20 04/11/18 16:19 03/13/18 00:41 Albuterol/ Ipratropium (Albuterol/ Ipratropium) 3 ml Q4H PRN HHN Shortness of Breath 03/12/18 16:30 03/17/18 16:29 Cefepime HCl 1 gm/ Dextrose 55 ml @ 110 mls/hr Q12HR@0930,2130 IVPB 03/12/18 21:30 03/19/18 21:29 03/15/18 08:46 Heparin Sodium (Porcine) (Heparin 5000 units/ml) 5,000 units EVERY 12 HOURS SUBQ 03/12/18 21:00 04/11/18 08:59 03/15/18 08:52 Morphine Sulfate (Morphine Sulfate) 2 mg Q4H PRN IVP Moderate Pain (Pain Scale 4-6) 03/12/18 16:30 03/19/18 16:29 03/14/18 18:56 Ondansetron HCl (Zofran) 4 mg Q6H PRN IVP Nausea & Vomiting 03/12/18 16:30 04/11/18 16:29 Phenazopyridine HCl (Pyridium) 100 mg DAILYPRN PRN ORAL dysuria 03/12/18 16:30 04/11/18 16:29 Polyethylene Glycol (Miralax) 17 gm DAILYPRN PRN ORAL Constipation 03/13/18 16:30 04/11/18 16:29 Sodium Chloride 1,000 ml @ 50 mls/hr Q20H IV 03/13/18 12:30 04/11/18 12:29 03/14/18 23:46 Temazepam (Restoril) 15 mg HSPRN PRN ORAL Insomnia 03/12/18 21:00 03/19/18 20:59 Chyna Pryor MD Mar 15, 2018 13:04
[2018-03-15] MEDS ORDERED: CEPHALEXIN500 MG ORAL (13:14)
[2018-03-15 16:00] VITALS: BP 128/76
--- NOTE | 2018-03-15 17:35 | Infectious Diseases Prog Note ---
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 Will continue to follow along with you. Discussed with RN, case finisher and Dr Pryor. Subjective Allergies: Coded Allergies: PENICILLIN G (Verified Allergy, Unknown, 03/12/18) Tolerates cabapenem, cephalosporin Subjective afebrile in >48 hrs no leukocytois bcx ntd Objective Vital Signs Last 24 Hour Vital Signs Date Time Temp Pulse Resp B/P (MAP) Pulse Ox O2 Delivery O2 Flow Rate FiO2 03/15/18 16:00 98.1 85 20 128/76 (93) 95 98.1 03/15/18 12:00 97.5 90 21 134/69 (90) 94 97.5 03/15/18 09:00 Room Air 03/15/18 08:00 98.1 97 22 98/55 (69) 93 98.1 03/15/18 04:00 97.7 95 20 108/52 (70) 96 97.7 03/15/18 00:00 97.5 92 20 121/70 (87) 93 97.5 03/14/18 21:00 Room Air 03/14/18 20:00 98.1 87 20 123/68 (86) 95 98.1 03/14/18 19:02 88 18 Room Air 21 Height (Feet): 5 Height (Inches): 2.00 Weight (Pounds): 133 Objective General: Patient Chronically ill HEENT: dry oral mucous membranes Neck limited ROM CV: tachycardia, no murmurs. Abdomen, soft nondistended Extremity decreased ROM, Neuro: Moves all extremities, dehydration mena catheter draining small amount of cloudy urine. Microbiology Date/Time Source Procedure Growth Status 03/12/18 22:40 Urine,Clean Catch Urine Culture - Preliminary NO GROWTH AFTER 24 HOURS Resulted Current Medications Medications (Trade) Dose Ordered Sig/Sandeep Route PRN Reason Start Time Stop Time Status Last Admin Dose Admin Acetaminophen (Tylenol) 650 mg Q4H PRN ORAL fever 03/12/18 16:20 04/11/18 16:19 03/13/18 00:41 Albuterol/ Ipratropium (Albuterol/ Ipratropium) 3 ml Q4H PRN HHN Shortness of Breath 03/12/18 16:30 03/17/18 16:29 Cefepime HCl 1 gm/ Dextrose 55 ml @ 110 mls/hr Q12HR@0930,2130 IVPB 03/12/18 21:30 03/19/18 21:29 03/15/18 08:46 Heparin Sodium (Porcine) (Heparin 5000 units/ml) 5,000 units EVERY 12 HOURS SUBQ 03/12/18 21:00 04/11/18 08:59 03/15/18 08:52 Morphine Sulfate (Morphine Sulfate) 2 mg Q4H PRN IVP Moderate Pain (Pain Scale 4-6) 03/12/18 16:30 03/19/18 16:29 03/14/18 18:56 Ondansetron HCl (Zofran) 4 mg Q6H PRN IVP Nausea & Vomiting 03/12/18 16:30 04/11/18 16:29 Phenazopyridine HCl (Pyridium) 100 mg DAILYPRN PRN ORAL dysuria 03/12/18 16:30 04/11/18 16:29 Polyethylene Glycol (Miralax) 17 gm DAILYPRN PRN ORAL Constipation 03/13/18 16:30 04/11/18 16:29 Sodium Chloride 1,000 ml @ 50 mls/hr Q20H IV 03/13/18 12:30 04/11/18 12:29 03/14/18 23:46 Temazepam (Restoril) 15 mg HSPRN PRN ORAL Insomnia 03/12/18 21:00 03/19/18 20:59 Joaquina Hill M.D. Mar 15, 2018 17:35
--- NOTE | 2018-03-17 09:59 | Discharge Summary ---
Discharge Summary Discharge Summary _ DATE OF ADMISSION: 03/11/2018 DATE OF DISCHARGE: 03/15/2018 REASON FOR ADMISSION: 47 years old female with past medical history of spina bifida with paraplegia, recurrent urinary tract infection, suprapubic catheter, ventriculoperitoneal shunt, was brought to emergency Department from home due to decreased urinary output. Upon evaluation patient had fever and was tachycardic. Blood pressure was low. Laboratory workup revealed leukocytosis with WBC 22.4, hemoglobin 11.6 hematocrit 37.2. Lactic acid 2.2 . Potassium 6.0, BUN 54 creatinine 1.1. Urinalysis with evidence of UTI. Patient admitted with diagnoses of sepsis, UTI with history of recurrent UTI, acute tubular necrosis ,hyperkalemia. 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 spina bifida with paraplegia. CONSULTANTS: ID specialist Dr. Buck Urologist Dr. Lui [facility] COURSE: Patient admitted. Patient started on on IV hydration and empiric antibiotics. ID specialist closely followed. Blood culture were negative, initial and repeated. Urine culture was negative. Sacral decubitus culture revealed [place] and MRSA , t likely colonization , since no evidence of infection. Patient was treated with IV antibiotic based on ID specialist recommendations. Prior to discharge IV antibiotic changed to oral Keflex to complete the course. Urologist seen and evaluated the patient. Suprapubic catheter was changed. Hand irrigated easily. Urologist recommended to continue antibiotic for total of 10 days treatment and change suprapubic per patient's usual regimen. Neurogenic bladder due to spina bifida. Renal parameters and electrolytes were closely monitored. Hyperkalemia was treated. Acute kidney injury resolved prior to discharge, likely due to sepsis. BUN 14 and creatinine 0.6. DVT prophylaxis provided. Wound care for sacral decub provided as per wound protocol. Supportive care provided. Bowel regimen instituted. Pain management was addressed. 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 DISCHARGE INSTRUCTIONS: Patient was discharged home with home health services. Follow up with primary care provider in one week. I have been assigned to dictate discharge summary for this account. I was not involved in the patient's management. Trinh Muñiz NP Mar 17, 2018 09:59
== END 2018-03-15 18:30 | disposition home or self-care (01) | DRG 871 ==
LOC: EMR 19:16 → 2E 21:06 → EDBEDREQ 22:16 → 2E 23:29 → 4E 03-12 15:50
DX: A41.9 Sepsis, unspecified organism (principal); N17.0 Acute kidney failure with tubular necrosis; N39.0 Urinary tract infection, site not specified; G82.20 Paraplegia, unspecified; Q05.9 Spina bifida, unspecified; E87.5 Hyperkalemia; N31.9 Neuromuscular dysfunction of bladder, unspecified; L89.159 Pressure ulcer of sacral region, unspecified stage; Z88.0 Allergy status to penicillin; Z98.2 Presence of cerebrospinal fluid drainage device
CPT/HCPCS: 36415; 71045; 80048; 80053; 80202; 81001; 81003; 82550; 82553; 83605; 83735; 84100; 84484; 85007; 85025; 87040; 87070; 87086; 87181; 87205; 93005; 94664; 99285

== ENCOUNTER 2018-08-23 22:56 | Emergency (ER) | payer MEDICARE, MEDICAID ==
[~2018-08-23] VITALS: Ht 137.2 cm; Wt 68.0 kg
[~2018-08-23 22:56] MED LIST changes: +BIOTIN800 MCG PO; +CEPHALEXIN500 MG ORAL; +ZINC SULFATE220 M2 ORAL
--- NOTE | 2018-08-23 23:00 | NUR ---
ED Nurse Note: Patient LEMUEL RA 826 from home c/o abdominal pain. Per patient's patient has a new mass on the left side of the abdomen. AO3. NAD. Denies SOB. Attached to monitor. Family at bedside.
[2018-08-23 23:13] VITALS: BP 107/72
--- NOTE | 2018-08-23 23:44 | Diagnostic Imaging Report ---
EXAM: CT Abdomen and Pelvis Without Intravenous Contrast CLINICAL HISTORY: PAIN TECHNIQUE: Axial computed tomography images of the abdomen and pelvis without intravenous contrast. CTDI is 0.15, 15.70 mGy and DLP is 740 mGy-cm. One or more of the following dose reduction techniques were used: automated exposure control, adjustment of the mA and/or kV according to patient size, use of iterative reconstruction technique. COMPARISON: CT abdomen and pelvis dated 02/06/2017 FINDINGS: Lung bases: Heart is enlarged. Dependent atelectasis. ABDOMEN: Liver: Unremarkable. Gallbladder and bile ducts: Unremarkable. Pancreas: Unremarkable. Spleen: Unremarkable. Adrenals: Unremarkable. Kidneys and ureters: Nonobstructing calculus within both kidneys. Marked atrophy of the left kidney with stable double-J left ureteral stent. No hydronephrosis. Double-J right ureteral stent which appears to be in appropriate position. No hydronephrosis. Stomach and bowel: Unremarkable. PELVIS: Appendix: Appendix is unremarkable. Bladder: Urinary bladder is decompressed with suprapubic catheter noted. Reproductive: Unremarkable as visualized. ABDOMEN and PELVIS: Intraperitoneal space: Unremarkable. Bones/joints: Scoliosis of the spine with orthopedic hardware noted. Chronic degenerative changes of the hips with chronic dislocation right hip. Post surgical changes within the right femur. Spinal dysraphism noted. No acute fracture. Soft tissues: Unremarkable. Vasculature: Unremarkable. No abdominal aortic aneurysm. Lymph nodes: Subcentimeter retroperitoneal lymph nodes, likely reactive. 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 Other findings: Nodular hyperdense lesion seen within the posterior left upper quadrant which may represent fatty infarct. This is unchanged. IMPRESSION: Bilateral double-J ureteral stents which appear in appropriate position. Nonobstructing calculus within both kidneys. No hydronephrosis.
--- NOTE | 2018-08-24 00:50 | NUR ---
ED Nurse Note: Patient cleared for discharge per ERMD. NAD. VSS. Patient given prescriptions and discharge instructions; verbalized understanding. ID band removed. Patient left department with [facility] on [facility] with all personal belongings.
--- NOTE | 2018-08-24 00:52 | Emergency Room Report ---
History of Present Illness General Chief Complaint: Abdominal Pain Source: Patient, Family Member, EMS Present Illness HPI Is a 48 year female who is bedbound. She has spina bifida. Patient presents with chief complaint of abdominal mass. Family noticed her abdominal area is swollen and there was concern. His been ongoing for about a week. No trauma. No pain. No other complaint. Allergies: Coded Allergies: PENICILLIN G (Verified Allergy, Unknown, 03/12/18) Tolerates cabapenem, cephalosporin PENICILLINS (Unverified Allergy, Unknown, 08/23/18) Patient History Past Medical History: see triage record, old chart reviewed Past Surgical History: other Pertinent Family History: none Social History: Denies: smoking Last Menstrual Period: UNK Now: No Immunizations: other Reviewed Nursing Documentation: PMH: Agreed; PSxH: Agreed Nursing Documentation-PMH Past Medical History: No History, Except For Hx Hypertension: Yes Hx Diabetes: Yes Hx Cancer: No - spina bifida Hx Gastrointestinal Problems: No Hx Neurological Problems: Yes - Spina Bifida (Gustavo in place) Hx Cerebrovascular Accident: No Hx Transient Ischemic Attacks: No Hx Dementia: No Hx Alzheimer's Disease: No Hx Parkinson's Disease: No Hx Meningitis: No Hx Encephalitis: No Hx Seizures: No Hx Epilepsy: No Hx Multiple Sclerosis: No Hx Cerebral Palsy: No Hx Amyotrophic Lat Sclerosis: No Hx Guillian-[place] Syndrome: No Hx Paralysis: Yes - Below the waste Hx Peripheral Neuropathy: No Hx Spinal Cord Injury: Yes - Spina Bifida Hx Head Trauma: No Hx Traumatic Brain Injury: No Hx Memory Loss: No Hx Concentration Difficulty: No Hx Speech Problem: Yes Hx Tremors: No Hx Vertigo: No Hx Headaches: No Hx Aphasia: No Hx Dysphasia: No Hx Numbness: No Hx Weakness: No Hx Fatigue: No Hx Neurologic Surgery: No Hx Brain Shunt: Yes Review of Systems Eye: Denies: eye pain, blurred vision ENT: Denies: ear pain, nose congestion, throat swelling Respiratory: Denies: cough, shortness of breath Cardiovascular: Denies: chest pain, palpitations Gastrointestinal: Denies: abdominal pain, diarrhea, nausea, vomiting Musculoskeletal: Denies: back pain, joint pain Skin: Denies: rash Neurological: Denies: headache, numbness Endocrine: Denies: increased thirst, increased urine Hematologic/Lymphatic: Denies: easy bruising All Other Systems: negative except mentioned in HPI Physical Exam Vital Signs Date Time Temp Pulse Resp B/P (MAP) Pulse Ox O2 Delivery O2 Flow Rate FiO2 08/23/18 22:50 98.2 90 18 107/72 94 Room Air vitals normal Sp02 EP Interpretation: reviewed, normal General Appearance: well appearing, no apparent distress, alert Head: normocephalic, atraumatic Eyes: bilateral eye PERRL, bilateral eye EOMI ENT: hearing grossly normal, normal pharynx Neck: full range of motion, supple, no meningismus Respiratory: chest non-tender, lungs clear, normal breath sounds Cardiovascular #1: regular rate, rhythm, no murmur Gastrointestinal: normal bowel sounds, non tender, no mass, no organomegaly, no bruit, non-distended, other - Mild abdominal distention, soft Musculoskeletal: back normal, normal range of motion Neurologic: alert, oriented x3 Psychiatric: mood/affect normal Skin: warm/dry Medical Decision Making Diagnostic Impression: Primary Impression: Gaseous abdominal distention ER Course Patient with abdominal distention. Most likely gas. Abdominal exam benign. CT negative. We'll discharge home. CT/MRI/US Diagnostic Results CT/MRI/US Diagnostic Results : Imaging Test Ordered: CT abdomen and pelvis Impression Read by radiologist. Negative. Last Vital Signs Date Time Temp Pulse Resp B/P (MAP) Pulse Ox O2 Delivery O2 Flow Rate FiO2 08/23/18 23:13 90 18 Room Air 08/23/18 23:13 98.2 107/72 94 Status: improved Disposition: HOME, SELF-CARE Condition: Stable Additional Instructions: Follow-up with your doctor in 7 days. Return if worse. Ajit Coates MD Aug 24, 2018 00:52
[2018-08-24 00:55] VITALS: BP 107/72
== END 2018-08-24 00:50 | disposition home or self-care (01) ==
LOC: EDBD 22:56 → EMR 23:09
DX: R14.0 Abdominal distension (gaseous) (principal); Q05.9 Spina bifida, unspecified; I10 Essential (primary) hypertension; E11.9 Type 2 diabetes mellitus without complications; Z88.0 Allergy status to penicillin
CPT/HCPCS: 74176; 99284

== ENCOUNTER 2018-10-07 16:05 | Inpatient (IN) | payer MEDICARE, MEDICAID ==
[~2018-10-07] VITALS: Ht 157.5 cm; Wt 59.0 kg
--- NOTE | 2018-10-07 16:35 | NUR ---
ED Nurse Note: Pt on wheelchair came in with brother due to cloudy urine noted in Huber catheter, coughing with congestion noticed since yesterday. Pt Aox1, vital signs stable at this time. Will cont to monitor.
[2018-10-07 17:26] LABS: APPEARANCE,URINE SLIGHTLY CLOUDY; BILIRUBIN, URINE NEGATIVE (NEGATIVE); COLOR,URINE PALE YELLOW; GLUCOSE, URINE (UA) NEGATIVE (NEGATIVE); KETONES,URINE NEGATIVE (NEGATIVE); LEUKOCYTE ESTERASE ,URINE 3+ (NEGATIVE); NITRITE,URINE POSITIVE (NEGATIVE); PH,URINE 8 (4.5-8.0); PROTEIN,URINE 3+ (NEGATIVE); UROBILINOGEN,URINE NORMAL MG/DL (0.0-1.0)
[2018-10-07 17:32] LABS: BASOPHILS % (AUTO) 0.8 % (0.0-2.0); EOSINOPHILS % (AUTO) 3.2 % (0.0-3.0); HEMATOCRIT 36.4 % (37.0-47.0); HEMOGLOBIN 11.2 G/DL (12.0-16.0); LYMPHOCYTES % (AUTO) 23.4 % (20.0-45.0); MEAN CORPUSCULAR VOLUME 75 FL (80-99); MONOCYTES % (AUTO) 6.9 % (1.0-10.0); NEUTROPHILS % (AUTO) 65.8 % (45.0-75.0); PLATELET COUNT 392 K/UL (150-450); RED BLOOD COUNT 4.88 M/UL (4.20-5.40); RED CELL DISTRIBUTION WIDTH 17.1 % (11.6-14.8); WHITE BLOOD COUNT 14.6 K/UL (4.8-10.8)
--- NOTE | 2018-10-07 17:34 | NUR ---
ED Nurse Note: REPORT RECEIVED FROM EMMA GARNER.
[2018-10-07 17:39] VITALS: BP 110/65
[2018-10-07 17:39] LABS: ANION GAP 7 mmol/L (5-15); BLOOD UREA NITROGEN 16 mg/dL (7-18); CARBON DIOXIDE 32 MMOL/L (21-32); CHLORIDE 97 MMOL/L (98-107); CREATININE 0.4 MG/DL (0.55-1.30); POTASSIUM 4.4 MMOL/L (3.5-5.1); SODIUM 136 MMOL/L (136-145)
[2018-10-07 17:43] LABS: ALANINE AMINOTRANSFERASE 6 U/L (12-78); ALBUMIN 2.8 G/DL (3.4-5.0); ALBUMIN/GLOBULIN RATIO 0.5 (1.0-2.7); ALKALINE PHOSPHATASE 109 U/L (46-116); ASPARTATE AMINO TRANSFERASE 15 U/L (15-37); BILIRUBIN,TOTAL 0.3 MG/DL (0.2-1.0)
--- NOTE | 2018-10-07 19:03 | NUR ---
ED Nurse Note: REPORT GIVEN TO EMMA FLETCHER.
--- NOTE | 2018-10-07 19:40 | NUR ---
ED Nurse Note: RECEIVED REPORT FROM RN JASWINDER, NOTED PT IN BED RESTING, FATHER AT THE BEDSIDE, SUPRAPUBIC CATH INTACT WITH CLOUDY YELLOW URINE IN BAG. PT CLEANED AND CHANGED, NOTED PRESSURE ULCER POSTERIOR COCCYX AREA UNSTAGEABLE WITH FOUL ODOR, PICTURE TAKEN.
--- NOTE | 2018-10-07 20:59 | Emergency Room Report ---
History of Present Illness General Chief Complaint: General Complaint Source: Family Member Present Illness HPI The patient is accompanied by her brother. She has a history of developmental delay, CP shunt and suprapubic catheter. She is nonambulatory at baseline. The brother brings her in because he noted that her urine was cloudy. He also reports that she has had a cough and congestion for the past few days it. He states she has a history of getting sepsis easily, especially pneumonia. There is no fever or chills. There is no nausea or vomiting. There is no chest pain or shortness of breath. There are no other complaints. Allergies: Coded Allergies: PENICILLIN G (Verified Allergy, Unknown, 03/12/18) Tolerates cabapenem, cephalosporin PENICILLINS (Unverified Allergy, Unknown, 08/23/18) Patient History Past Medical History: see triage record, other - Development delay, hydrocephalus, spinabifida, scoliosis Past Surgical History: other - supra-pubic catheter, FERTILIZER LOADER shunt, spinal fixation Social History: Denies: smoking, alcohol use, drug use Now: No Reviewed Nursing Documentation: PMH: Agreed; PSxH: Agreed Nursing Documentation-PMH Hx Hypertension: Yes Hx Diabetes: Yes Hx Cancer: No - spina bifida Hx Gastrointestinal Problems: No Hx Neurological Problems: Yes - Spina Bifida (Gustavo in place) Hx Cerebrovascular Accident: No Hx Transient Ischemic Attacks: No Hx Dementia: No Hx Alzheimer's Disease: No Hx Parkinson's Disease: No Hx Meningitis: No Hx Encephalitis: No Hx Seizures: No Hx Epilepsy: No Hx Multiple Sclerosis: No Hx Cerebral Palsy: No Hx Amyotrophic Lat Sclerosis: No Hx Guillian-[place] Syndrome: No Hx Paralysis: Yes - Below the waste Hx Peripheral Neuropathy: No Hx Spinal Cord Injury: Yes - Spina Bifida Hx Head Trauma: No Hx Traumatic Brain Injury: No Hx Memory Loss: No Hx Concentration Difficulty: No Hx Speech Problem: Yes Hx Tremors: No Hx Vertigo: No Hx Headaches: No Hx Aphasia: No Hx Dysphasia: No Hx Numbness: No Hx Weakness: No Hx Fatigue: No Hx Neurologic Surgery: No Hx Brain Shunt: Yes Review of Systems All Other Systems: negative except mentioned in HPI Physical Exam Vital Signs Date Time Temp Pulse Resp B/P (MAP) Pulse Ox O2 Delivery O2 Flow Rate FiO2 10/07/18 16:28 98.2 88 22 107/71 90 Room Air Sp02 EP Interpretation: reviewed, normal General Appearance: no apparent distress, alert, GCS 15, non-toxic Head: normocephalic, atraumatic ENT: hearing grossly normal, normal pharynx, no angioedema Respiratory: chest non-tender, lungs clear, normal breath sounds, no respiratory distress, no retraction, no accessory muscle use, speaking full sentences Cardiovascular #1: regular rate, rhythm Gastrointestinal: normal bowel sounds, non tender, soft, non-distended, no guarding, no rebound Rectal: deferred Musculoskeletal: other - At baseline, kyphoscoliosis, contractures Neurologic: alert, other - At baseline Psychiatric: mood/affect normal Skin: warm/dry, well hydrated, other - See RN skin exam Medical Decision Making Diagnostic Impression: Primary Impression: Pyelonephritis ER Course This patient is admitted for pyelonephritis. The patient's chest x-ray is limited, but there is no obvious pneumonia identified. The patient was given Rocephin IV. She also has an elevated white blood cell count. She has a history of developing sepsis easily and so I felt that this patient should be admitted for IV antibiotics. She also has an indwelling suprapubic catheter so this could be a resistant infection. The patient is admitted for IV antibiotics and further motion and treatment. Laboratory Tests Test 10/07/18 17:00 White Blood Count 14.6 K/UL (4.8-10.8) H Red Blood Count 4.88 M/UL (4.20-5.40) Hemoglobin 11.2 G/DL (12.0-16.0) L Hematocrit 36.4 % (37.0-47.0) L Mean Corpuscular Volume 75 FL (80-99) L Mean Corpuscular Hemoglobin 22.9 PG (27.0-31.0) L Mean Corpuscular Hemoglobin Concent 30.7 G/DL (32.0-36.0) L Red Cell Distribution Width 17.1 % (11.6-14.8) H Platelet Count 392 K/UL (150-450) Mean Platelet Volume 5.1 FL (6.5-10.1) L Neutrophils (%) (Auto) 65.8 % (45.0-75.0) Lymphocytes (%) (Auto) 23.4 % (20.0-45.0) Monocytes (%) (Auto) 6.9 % (1.0-10.0) Eosinophils (%) (Auto) 3.2 % (0.0-3.0) H Basophils (%) (Auto) 0.8 % (0.0-2.0) Urine Color Pale yellow Urine Appearance Slightly cloudy Urine pH 8 (4.5-8.0) Urine Specific [place] 1.010 (1.005-1.035) Urine Protein 3+ (NEGATIVE) H Urine Glucose (UA) Negative (NEGATIVE) Urine Ketones Negative (NEGATIVE) Urine Blood 5+ (NEGATIVE) H Urine Nitrite Positive (NEGATIVE) H Urine Bilirubin Negative (NEGATIVE) Urine Urobilinogen Normal MG/DL (0.0-1.0) Urine Leukocyte Esterase 3+ (NEGATIVE) H Urine RBC 10-15 /HPF (0 - 2) H Urine WBC 5-10 /HPF (0 - 2) H Urine Squamous Epithelial Cells Moderate /LPF (NONE/OCC) H Urine Bacteria Many /HPF (NONE) H Urine HCG, Qualitative Negative (NEGATIVE) Sodium Level 136 MMOL/L (136-145) Potassium Level 4.4 MMOL/L (3.5-5.1) Chloride Level 97 MMOL/L (98-107) L Carbon Dioxide Level 32 MMOL/L (21-32) Anion Gap 7 mmol/L (5-15) Blood Urea Nitrogen 16 mg/dL (7-18) Creatinine 0.4 MG/DL (0.55-1.30) L Estimate Glomerular Filtration Rate > 60 mL/min (>60) Glucose Level 90 MG/DL (74-106) Calcium Level 9.0 MG/DL (8.5-10.1) Total Bilirubin 0.3 MG/DL (0.2-1.0) Aspartate Amino Transferase (AST) 15 U/L (15-37) Alanine Aminotransferase (ALT) 6 U/L (12-78) L Alkaline Phosphatase 109 U/L (46-116) Total Protein 8.5 G/DL (6.4-8.2) H Albumin 2.8 G/DL (3.4-5.0) L Globulin 5.7 g/dL Albumin/Globulin Ratio 0.5 (1.0-2.7) L Lipase 92 U/L (73-393) EKG Diagnostic Results Rate: normal Rhythm: NSR ST Segments: no acute changes Rhythm Strip Diag. Results EP Interpretation: yes Rate: 80's Rhythm: NSR, no PVC's, no ectopy Chest X-Ray Diagnostic Results Chest X-Ray Diagnostic Results : Chest X-Ray Ordered: Yes # of Views/Limited/Complete: 1 View Indication: Other - cough EP Interpretation: Yes Interpretation: no consolidation, no effusion, no pneumothorax, no acute cardiopulmonary disease Impression: No acute disease Electronically Signed by: Liberty Doyle DO Last Vital Signs Date Time Temp Pulse Resp B/P (MAP) Pulse Ox O2 Delivery O2 Flow Rate FiO2 10/07/18 17:39 98.4 87 21 110/65 93 Room Air Disposition: ADMITTED INPATIENT Condition: Serious Referrals: NON PHYSICIAN (PCP) Liberty Doyle DO Oct 07, 2018 20:59
[2018-10-07] MEDS ORDERED: cefTRIAXone 1 GM in NS 55 ML IVPB ONE (21:00)
--- NOTE | 2018-10-07 21:43 | NUR ---
ED Nurse Note: REPORT GIVEN TO RN RAPHAEL PT vss, resp even and unlabored on RA pt transferred to [facility].
--- NOTE | 2018-10-07 21:44 | NUR ---
ED Nurse Note: all belongings sent w/ pt.
[2018-10-07] MEDS ORDERED: Miralax 17gm pkt ORAL PRN (21:45)
[2018-10-07] MEDS ORDERED: Morphine Sulfate 2mg/ml Inj(IV/IM USE ONLY) IVP PRN (21:45)
[2018-10-07] MEDS ORDERED: Albuterol/Ipratropium 3ml neb HHN PRN (21:45)
--- NOTE | 2018-10-07 22:15 | NUR ---
NURSE NOTES: Received patient from ER, patient is Turkmen speaking, total care, verbal but confused and disoriented, VSS, afebrile, patient turned and repositioned in bed, call light is within reach, bed is in low position, locked, belongings list been verified with ER nurse and accounted for. Will continue to monitor for safety and comfort.
[2018-10-07] MEDS: Vancomycin 1 GM in D5W 275 ML IVPB SCH (23:42)
[2018-10-08] VITALS: BP 118/65
[2018-10-08 04:00] VITALS: BP 119/85
--- NOTE | 2018-10-08 06:55 | NUR ---
HAND-OFF: Report given to Sanam CARTER.
[2018-10-08 08:00] VITALS: BP 130/67
--- NOTE | 2018-10-08 08:00 | NUR ---
NURSE NOTES: RECEIVED PATIENT IN BED, RESTING AND ALERT TO NAME. PATIENT PALAUAN SPEAKING. IV INTACT. SPO2 HIGH 80'S. NOTIFIED MD AND WILL INPUT O2 ORDERS. NC 2 L APPLIED. PATIENT O2 INCREASED TO MID 90'S. BED IN LOWEST POSITION, CALL LIGHT WITHIN REACH. WILL CONTINUE TO MONITOR.
[2018-10-08] MEDS: Heparin 5000 units/ml inj SUBQ SCH ×2 (08:08→20:56)
[2018-10-08 08:49] LABS: BASOPHILS % (AUTO) 0.6 % (0.0-2.0); EOSINOPHILS % (AUTO) 4.1 % (0.0-3.0); HEMATOCRIT 36.8 % (37.0-47.0); HEMOGLOBIN 11.2 G/DL (12.0-16.0); LYMPHOCYTES % (AUTO) 18.3 % (20.0-45.0); MEAN CORPUSCULAR VOLUME 75 FL (80-99); MONOCYTES % (AUTO) 4.9 % (1.0-10.0); NEUTROPHILS % (AUTO) 72.1 % (45.0-75.0); PLATELET COUNT 384 K/UL (150-450); RED BLOOD COUNT 4.89 M/UL (4.20-5.40); RED CELL DISTRIBUTION WIDTH 17.4 % (11.6-14.8); WHITE BLOOD COUNT 10.1 K/UL (4.8-10.8)
[2018-10-08 08:59] LABS: ALANINE AMINOTRANSFERASE 9 U/L (12-78); ALBUMIN 2.6 G/DL (3.4-5.0); ALBUMIN/GLOBULIN RATIO 0.5 (1.0-2.7); ALKALINE PHOSPHATASE 99 U/L (46-116); ANION GAP 6 mmol/L (5-15); ASPARTATE AMINO TRANSFERASE 7 U/L (15-37); BILIRUBIN,TOTAL 0.2 MG/DL (0.2-1.0); BLOOD UREA NITROGEN 13 mg/dL (7-18); CALCIUM 8.6 MG/DL (8.5-10.1); CARBON DIOXIDE 33 MMOL/L (21-32); CHLORIDE 102 MMOL/L (98-107); CREATININE 0.5 MG/DL (0.55-1.30); POTASSIUM 3.6 MMOL/L (3.5-5.1); SODIUM 141 MMOL/L (136-145)
--- NOTE | 2018-10-08 11:21 | NUR ---
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
[2018-10-08] MEDS: Vancomycin 1 GM in D5W 275 ML IVPB SCH (11:29)
[2018-10-08 12:00] VITALS: BP 112/62
--- NOTE | 2018-10-08 12:38 | Diagnostic Imaging Report ---
Indication: Cough Comparison: 03/11/2018 A single view chest radiograph was obtained. Findings: Lung volumes remain low. No obvious infiltrate identified. There is likely scarring or atelectasis at the left lung base with a similar appearance previously. Spinal stabilization rods noted and projected over the mid thoracic spine extending into the lumbar spine. Ventriculoperitoneal shunt noted over the right side of the chest. Bones are osteopenic. IMPRESSION: No acute findings appreciated. No significant change
--- NOTE | 2018-10-08 13:26 | Consultation ---
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 Of note, patient admitted here back in February 2018 for UTI. Allergies: Coded Allergies: PENICILLIN G (Verified Allergy, Unknown, 03/12/18) Tolerates cabapenem, cephalosporin PENICILLINS (Unverified Allergy, Unknown, 08/23/18) Medication History Scheduled Apixaban (Eliquis), 5 MG PO BID, (Reported) Ascorbic Acid* (Ascorbic Acid*), 500 MG ORAL TWICE A DAY, (Reported) Docusate Sodium* (Docusate Sodium*), 100 MG ORAL TWICE A DAY, (Reported) Ertapenem Sodium* (INVanz*), 1 GM IVPB Q24H, (Reported) Mirabegron (Myrbetriq), 50 MG PO DAILY, (Reported) Multivitamins* (Multivitamins*), 1 TAB ORAL DAILY, (Reported) Sennosides (Senna), 8.6 MG PO BID, (Reported) Zinc Sulfate (Zinc Sulfate), 220 MG ORAL DAILY, (Reported) Miscellaneous Medications Biotin (Biotin), 1,000 MCG PO, (Reported) Patient History Healthcare decision maker Resuscitation status Full Code Advanced Directive on File No Patient History Narrative Pmhx: as above Shx:Denies: smoking, alcohol use, drug use Fhx non contributory Review of Systems All Other Systems: negative except mentioned in HPI Physical Exam Physical Exam Narrative General Appearance: no apparent distress, alert HEENT normocephalic, atraumatic hearing grossly normal, normal pharynx, no angioedema Respiratory: chest non-tender, lungs clear, normal breath sounds, no respiratory distress, no retraction, no accessory muscle use, speaking full sentences Cardiovascular: regular rate, rhythm Gastrointestinal: normal bowel sounds, non tender, soft, non-distended, no guarding, no rebound Musculoskeletal: other - At baseline, kyphoscoliosis, contractures Neurologic: alert, other - At baseline Skin: warm/dry, well hydrated, other - See RN skin exam Last 24 Hour Vital Signs Date Time Temp Pulse Resp B/P (MAP) Pulse Ox O2 Delivery O2 Flow Rate FiO2 10/08/18 09:00 Nasal Cannula 2.0 10/08/18 08:00 97.7 102 18 130/67 (88) 10/08/18 04:00 98.0 78 20 119/85 (96) 10/08/18 00:00 98.9 98 20 118/65 (82) 10/07/18 22:58 Room Air 10/07/18 21:44 98.4 80 18 105/61 96 Room Air 10/07/18 17:39 98.4 87 21 110/65 93 Room Air 10/07/18 16:38 88 22 Room Air 10/07/18 16:28 98.2 88 22 107/71 90 Room Air Intake and Output 10/07/18 10/08/18 19:00 07:00 Intake Total 1055 ml Output Total 300 ml 400 ml Balance -300 ml 655 ml IV Total 1055 ml Output Urine Total 300 ml 400 ml # Bowel Movements 1 Laboratory Tests Test 10/07/18 17:00 10/08/18 08:25 White Blood Count 14.6 K/UL (4.8-10.8) H 10.1 K/UL (4.8-10.8) Red Blood Count 4.88 M/UL (4.20-5.40) 4.89 M/UL (4.20-5.40) Hemoglobin 11.2 G/DL (12.0-16.0) L 11.2 G/DL (12.0-16.0) L Hematocrit 36.4 % (37.0-47.0) L 36.8 % (37.0-47.0) L Mean Corpuscular Volume 75 FL (80-99) L 75 FL (80-99) L Mean Corpuscular Hemoglobin 22.9 PG (27.0-31.0) L 22.9 PG (27.0-31.0) L Mean Corpuscular Hemoglobin Concent 30.7 G/DL (32.0-36.0) L 30.5 G/DL (32.0-36.0) L Red Cell Distribution Width 17.1 % (11.6-14.8) H 17.4 % (11.6-14.8) H Platelet Count 392 K/UL (150-450) 384 K/UL (150-450) Mean Platelet Volume 5.1 FL (6.5-10.1) L 5.6 FL (6.5-10.1) L Neutrophils (%) (Auto) 65.8 % (45.0-75.0) 72.1 % (45.0-75.0) Lymphocytes (%) (Auto) 23.4 % (20.0-45.0) 18.3 % (20.0-45.0) L Monocytes (%) (Auto) 6.9 % (1.0-10.0) 4.9 % (1.0-10.0) Eosinophils (%) (Auto) 3.2 % (0.0-3.0) H 4.1 % (0.0-3.0) H Basophils (%) (Auto) 0.8 % (0.0-2.0) 0.6 % (0.0-2.0) Urine Color Pale yellow Urine Appearance Slightly cloudy Urine pH 8 (4.5-8.0) Urine Specific [place] 1.010 (1.005-1.035) Urine Protein 3+ (NEGATIVE) H Urine Glucose (UA) Negative (NEGATIVE) Urine Ketones Negative (NEGATIVE) Urine Blood 5+ (NEGATIVE) H Urine Nitrite Positive (NEGATIVE) H Urine Bilirubin Negative (NEGATIVE) Urine Urobilinogen Normal MG/DL (0.0-1.0) Urine Leukocyte Esterase 3+ (NEGATIVE) H Urine RBC 10-15 /HPF (0 - 2) H Urine WBC 5-10 /HPF (0 - 2) H Urine Squamous Epithelial Cells Moderate /LPF (NONE/OCC) H Urine Bacteria Many /HPF (NONE) H Urine HCG, Qualitative Negative (NEGATIVE) Sodium Level 136 MMOL/L (136-145) 141 MMOL/L (136-145) Potassium Level 4.4 MMOL/L (3.5-5.1) 3.6 MMOL/L (3.5-5.1) Chloride Level 97 MMOL/L (98-107) L 102 MMOL/L (98-107) Carbon Dioxide Level 32 MMOL/L (21-32) 33 MMOL/L (21-32) H Anion Gap 7 mmol/L (5-15) 6 mmol/L (5-15) Blood Urea Nitrogen 16 mg/dL (7-18) 13 mg/dL (7-18) Creatinine 0.4 MG/DL (0.55-1.30) L 0.5 MG/DL (0.55-1.30) L Estimat Glomerular Filtration Rate > 60 mL/min (>60) > 60 mL/min (>60) Glucose Level 90 MG/DL (74-106) 164 MG/DL (74-106) H Calcium Level 9.0 MG/DL (8.5-10.1) 8.6 MG/DL (8.5-10.1) Total Bilirubin 0.3 MG/DL (0.2-1.0) 0.2 MG/DL (0.2-1.0) Aspartate Amino Transf (AST/SGOT) 15 U/L (15-37) 7 U/L (15-37) L Alanine Aminotransferase (ALT/SGPT) 6 U/L (12-78) L 9 U/L (12-78) L Alkaline Phosphatase 109 U/L (46-116) 99 U/L (46-116) Total Protein 8.5 G/DL (6.4-8.2) H 8.0 G/DL (6.4-8.2) Albumin 2.8 G/DL (3.4-5.0) L 2.6 G/DL (3.4-5.0) L Globulin 5.7 g/dL 5.4 g/dL Albumin/Globulin Ratio 0.5 (1.0-2.7) L 0.5 (1.0-2.7) L Lipase 92 U/L (73-393) Microbiology Date/Time Source Procedure Growth Status 10/07/18 17:00 Urine,Clean Catch Urine Culture - Preliminary Resulted Height (Feet): 5 Height (Inches): 2.00 Weight (Pounds): 130 Medications Current Medications Medications (Trade) Dose Ordered Sig/Sandeep Route PRN Reason Start Time Stop Time Status Last Admin Dose Admin Acetaminophen (Tylenol) 650 mg Q4H PRN ORAL fever 10/07/18 21:45 11/06/18 21:44 Albuterol/ Ipratropium (Albuterol/ Ipratropium) 3 ml Q4H PRN HHN Shortness of Breath 10/07/18 21:45 10/12/18 21:44 Heparin Sodium (Porcine) (Heparin 5000 units/ml) 5,000 units EVERY 12 HOURS SUBQ 10/08/18 09:00 11/07/18 08:59 10/08/18 08:08 Morphine Sulfate (Morphine Sulfate) 2 mg Q4H PRN IVP Moderate Pain (Pain Scale 4-6) 10/07/18 21:45 10/14/18 21:44 Ondansetron HCl (Zofran) 4 mg Q6H PRN IVP Nausea & Vomiting 10/07/18 21:45 11/06/18 21:44 Phenazopyridine HCl (Pyridium) 100 mg DAILY PRN ORAL dysuria 10/07/18 21:45 11/06/18 21:44 Polyethylene Glycol (Miralax) 17 gm DAILYPRN PRN ORAL Constipation 10/07/18 21:45 11/06/18 21:44 Temazepam (Restoril) 15 mg HSPRN PRN ORAL Insomnia 10/07/18 21:45 10/14/18 21:44 Vancomycin HCl 1 gm/Dextrose 275 ml @ 183.3 mls/ hr Q12HR@1100,2300 IVPB 10/07/18 23:00 10/12/18 22:59 10/08/18 11:29 Assessment/Plan Assessment/Plan Abx: IV Vancomycin 10/07- Ceftriaxone x1 10/07 Assessment: Probable UTI -u.a wbc 5-10, nit +, leuk +3; ucx p Afebrile Leukocytosis, resolved -CXR: No acute findings appreciated. 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 Will continue to follow along with you. Joaquina Hill M.D. Oct 08, 2018 13:26
--- NOTE | 2018-10-08 13:30 | History and Physical ---
History of Present Illness General Reason for Hospitalization: General Complaint Present Illness HPI 48 year old female with history of developmental delay, CP shunt and suprapubic catheter, nonambulatory at baseline. The brother brings her in because he noted that her urine was cloudy. He also reports that she has had a cough and congestion for the past few days it. There is no fever or chills. There is no nausea or vomiting. There is no chest pain or shortness of breath. she was found to be septic and admitted for further evaluation. Allergies: Coded Allergies: PENICILLIN G (Verified Allergy, Unknown, 03/12/18) Tolerates cabapenem, cephalosporin PENICILLINS (Unverified Allergy, Unknown, 08/23/18) Medication History Scheduled Apixaban (Eliquis), 5 MG PO BID, (Reported) Ascorbic Acid* (Ascorbic Acid*), 500 MG ORAL TWICE A DAY, (Reported) Ciprofloxacin (Cipro), 500 MG PO EVERY 12 HOURS Docusate Sodium* (Docusate Sodium*), 100 MG ORAL TWICE A DAY, (Reported) Ertapenem Sodium* (INVanz*), 1 GM IVPB Q24H, (Reported) Mirabegron (Myrbetriq), 50 MG PO DAILY, (Reported) Multivitamins* (Multivitamins*), 1 TAB ORAL DAILY, (Reported) Sennosides (Senna), 8.6 MG PO BID, (Reported) Zinc Sulfate (Zinc Sulfate), 220 MG ORAL DAILY, (Reported) Miscellaneous Medications Biotin (Biotin), 1,000 MCG PO, (Reported) Patient History Healthcare decision maker Resuscitation status Full Code Advanced Directive on File No Past Medical/Surgical History Past Medical/Surgical History: (1) Restrictive lung disease due to kyphoscoliosis (2) Suprapubic catheter (3) Spina bifida (4) Paraplegia Review of Systems Constitutional: Reports: no symptoms Eye: Reports: no symptoms Physical Exam General Appearance: WD/WN, no apparent distress Lines, tubes and drains: peripheral, central line, other - suprapubic catheter HEENT: normocephalic, atraumatic Neck: non-tender, normal alignment Respiratory/Chest: chest wall non-tender, lungs clear Breasts: no masses Cardiovascular/Chest: normal peripheral pulses Abdomen: normal bowel sounds, non tender Genitourinary/Rectal: normal genital exam Extremities: normal range of motion Skin Exam: normal pigmentation Neurologic: abstract checker II-XII grossly normal Last 24 Hour Vital Signs Date Time Temp Pulse Resp B/P (MAP) Pulse Ox O2 Delivery O2 Flow Rate FiO2 10/08/18 09:00 Nasal Cannula 2.0 10/08/18 08:00 97.7 102 18 130/67 (88) 10/08/18 04:00 98.0 78 20 119/85 (96) 10/08/18 00:00 98.9 98 20 118/65 (82) 10/07/18 22:58 Room Air 10/07/18 21:44 98.4 80 18 105/61 96 Room Air 10/07/18 17:39 98.4 87 21 110/65 93 Room Air 10/07/18 16:38 88 22 Room Air 10/07/18 16:28 98.2 88 22 107/71 90 Room Air Intake and Output 10/07/18 10/08/18 19:00 07:00 Intake Total 1055 ml Output Total 300 ml 400 ml Balance -300 ml 655 ml IV Total 1055 ml Output Urine Total 300 ml 400 ml # Bowel Movements 1 Laboratory Tests Test 10/07/18 17:00 10/08/18 08:25 White Blood Count 14.6 K/UL (4.8-10.8) H 10.1 K/UL (4.8-10.8) Red Blood Count 4.88 M/UL (4.20-5.40) 4.89 M/UL (4.20-5.40) Hemoglobin 11.2 G/DL (12.0-16.0) L 11.2 G/DL (12.0-16.0) L Hematocrit 36.4 % (37.0-47.0) L 36.8 % (37.0-47.0) L Mean Corpuscular Volume 75 FL (80-99) L 75 FL (80-99) L Mean Corpuscular Hemoglobin 22.9 PG (27.0-31.0) L 22.9 PG (27.0-31.0) L Mean Corpuscular Hemoglobin Concent 30.7 G/DL (32.0-36.0) L 30.5 G/DL (32.0-36.0) L Red Cell Distribution Width 17.1 % (11.6-14.8) H 17.4 % (11.6-14.8) H Platelet Count 392 K/UL (150-450) 384 K/UL (150-450) Mean Platelet Volume 5.1 FL (6.5-10.1) L 5.6 FL (6.5-10.1) L Neutrophils (%) (Auto) 65.8 % (45.0-75.0) 72.1 % (45.0-75.0) Lymphocytes (%) (Auto) 23.4 % (20.0-45.0) 18.3 % (20.0-45.0) L Monocytes (%) (Auto) 6.9 % (1.0-10.0) 4.9 % (1.0-10.0) Eosinophils (%) (Auto) 3.2 % (0.0-3.0) H 4.1 % (0.0-3.0) H Basophils (%) (Auto) 0.8 % (0.0-2.0) 0.6 % (0.0-2.0) Urine Color Pale yellow Urine Appearance Slightly cloudy Urine pH 8 (4.5-8.0) Urine Specific [place] 1.010 (1.005-1.035) Urine Protein 3+ (NEGATIVE) H Urine Glucose (UA) Negative (NEGATIVE) Urine Ketones Negative (NEGATIVE) Urine Blood 5+ (NEGATIVE) H Urine Nitrite Positive (NEGATIVE) H Urine Bilirubin Negative (NEGATIVE) Urine Urobilinogen Normal MG/DL (0.0-1.0) Urine Leukocyte Esterase 3+ (NEGATIVE) H Urine RBC 10-15 /HPF (0 - 2) H Urine WBC 5-10 /HPF (0 - 2) H Urine Squamous Epithelial Cells Moderate /LPF (NONE/OCC) H Urine Bacteria Many /HPF (NONE) H Urine HCG, Qualitative Negative (NEGATIVE) Sodium Level 136 MMOL/L (136-145) 141 MMOL/L (136-145) Potassium Level 4.4 MMOL/L (3.5-5.1) 3.6 MMOL/L (3.5-5.1) Chloride Level 97 MMOL/L (98-107) L 102 MMOL/L (98-107) Carbon Dioxide Level 32 MMOL/L (21-32) 33 MMOL/L (21-32) H Anion Gap 7 mmol/L (5-15) 6 mmol/L (5-15) Blood Urea Nitrogen 16 mg/dL (7-18) 13 mg/dL (7-18) Creatinine 0.4 MG/DL (0.55-1.30) L 0.5 MG/DL (0.55-1.30) L Estimat Glomerular Filtration Rate > 60 mL/min (>60) > 60 mL/min (>60) Glucose Level 90 MG/DL (74-106) 164 MG/DL (74-106) H Calcium Level 9.0 MG/DL (8.5-10.1) 8.6 MG/DL (8.5-10.1) Total Bilirubin 0.3 MG/DL (0.2-1.0) 0.2 MG/DL (0.2-1.0) Aspartate Amino Transf (AST/SGOT) 15 U/L (15-37) 7 U/L (15-37) L Alanine Aminotransferase (ALT/SGPT) 6 U/L (12-78) L 9 U/L (12-78) L Alkaline Phosphatase 109 U/L (46-116) 99 U/L (46-116) Total Protein 8.5 G/DL (6.4-8.2) H 8.0 G/DL (6.4-8.2) Albumin 2.8 G/DL (3.4-5.0) L 2.6 G/DL (3.4-5.0) L Globulin 5.7 g/dL 5.4 g/dL Albumin/Globulin Ratio 0.5 (1.0-2.7) L 0.5 (1.0-2.7) L Lipase 92 U/L (73-393) Microbiology Date/Time Source Procedure Growth Status 10/07/18 17:00 Urine,Clean Catch Urine Culture - Preliminary Resulted Height (Feet): 5 Height (Inches): 2.00 Weight (Pounds): 130 Medications Current Medications Medications (Trade) Dose Ordered Sig/Sandeep Route PRN Reason Start Time Stop Time Status Last Admin Dose Admin Acetaminophen (Tylenol) 650 mg Q4H PRN ORAL fever 10/07/18 21:45 11/06/18 21:44 Albuterol/ Ipratropium (Albuterol/ Ipratropium) 3 ml Q4H PRN HHN Shortness of Breath 10/07/18 21:45 10/12/18 21:44 Ceftriaxone Sodium 1 gm/ Dextrose 55 ml @ 110 mls/hr Q24H IVPB 10/08/18 21:00 10/15/18 20:59 UNV Heparin Sodium (Porcine) (Heparin 5000 units/ml) 5,000 units EVERY 12 HOURS SUBQ 10/08/18 09:00 11/07/18 08:59 10/08/18 08:08 Morphine Sulfate (Morphine Sulfate) 2 mg Q4H PRN IVP Moderate Pain (Pain Scale 4-6) 10/07/18 21:45 10/14/18 21:44 Ondansetron HCl (Zofran) 4 mg Q6H PRN IVP Nausea & Vomiting 10/07/18 21:45 11/06/18 21:44 Phenazopyridine HCl (Pyridium) 100 mg DAILY PRN ORAL dysuria 10/07/18 21:45 11/06/18 21:44 Polyethylene Glycol (Miralax) 17 gm DAILYPRN PRN ORAL Constipation 10/07/18 21:45 11/06/18 21:44 Temazepam (Restoril) 15 mg HSPRN PRN ORAL Insomnia 10/07/18 21:45 10/14/18 21:44 Vancomycin HCl 1 gm/Dextrose 275 ml @ 183.3 mls/ hr Q12HR@1100,2300 IVPB 10/07/18 23:00 10/12/18 22:59 10/08/18 11:29 Assessment/Plan Problem List: (1) Sepsis ICD Codes: A41.9 - Sepsis, unspecified organism SNOMED: 92015998 (2) Pyelonephritis ICD Codes: N12 - Tubulo-interstitial nephritis, not specified as acute or chronic SNOMED: 99306749 (3) Spina bifida ICD Codes: Q05.9 - Spina bifida, unspecified SNOMED: 43377930 (4) Suprapubic catheter ICD Codes: Z93.59 - Other cystostomy status SNOMED: 304588228, 042646516 (5) Paraplegia ICD Codes: G82.20 - Paraplegia, unspecified SNOMED: 07132443 (6) Restrictive lung disease due to kyphoscoliosis ICD Codes: J98.4 - Other disorders of lung; M41.9 - Scoliosis, unspecified SNOMED: 418868019 Assessment/Plan dominguez culture iv abx ID evaluation. check electrolytes symptomatic treatment dvt prophylaxis. Chyna Pryor MD Oct 08, 2018 13:30
[2018-10-08 13:58] LABS: APPEARANCE,URINE SLIGHTLY CLOUDY; BILIRUBIN, URINE NEGATIVE (NEGATIVE); COLOR,URINE PALE YELLOW; GLUCOSE, URINE (UA) NEGATIVE (NEGATIVE); KETONES,URINE NEGATIVE (NEGATIVE); LEUKOCYTE ESTERASE ,URINE 3+ (NEGATIVE); NITRITE,URINE POSITIVE (NEGATIVE); PH,URINE 8 (4.5-8.0); PROTEIN,URINE 3+ (NEGATIVE); UROBILINOGEN,URINE NORMAL MG/DL (0.0-1.0)
--- NOTE | 2018-10-08 14:24 | NUR ---
NURSE NOTES:WOUND CARE NOTES:Pt presented on admission with resolving full thickness pressure injury to sacrum. Historical scars noted to lumbar area. Base of wound at sacrum with scattered slough,Bone is palpable ,otherwise pink. (+) maceration along borders. NO odor noted. Small amt serous exudate.(L)2.1cm x (W)1.4cm x (D)0.7cm. Hyperpigmentation noted periwound. Shearing with loose dry skin noted to R buttocks /R ischial area . Both heels are soft with dry peeling skin. Both heels are blanchable. Tx.Plan: Cleanse sacral wound with Saline.Apply Therahoney. Apply Triad periwound. Cover with Optifoam drsg Daily and prn. Apply Triad Paste to L Buttocks/L Ischial area with each perineal care. Apply Cavilon Skin Barrier to both heels. Off-load heels with Pillow. Reposition at least every 2hours or as tolerated. APM/JOSE mattress.
--- NOTE | 2018-10-08 15:13 | Consultation ---
History of Present Illness General Date patient seen: Oct 08, 2018 Chief Complaint: General Complaint Present Illness HPI This is a 48-year-old female with multiple medical comorbidities who is care dependent who presents with worsening cloudy urine, nasal congestion, respiratory concerns. In emergency department patient was identified to have a leukocytosis and given her history with suprapubic catheter and prior UTI was admitted for care and management. Upon admission patient was noted to have multiple wounds requiring care therefore surgery was called to evaluate and assist with care and management. Patient seen, patient evaluated, chart reviewed. Patient is very pleasant with history developed mental delay seemingly comfortable in hospital bed. Allergies: Coded Allergies: PENICILLIN G (Verified Allergy, Unknown, 03/12/18) Tolerates cabapenem, cephalosporin PENICILLINS (Unverified Allergy, Unknown, 08/23/18) Medication History Scheduled Apixaban (Eliquis), 5 MG PO BID, (Reported) Ascorbic Acid* (Ascorbic Acid*), 500 MG ORAL TWICE A DAY, (Reported) Docusate Sodium* (Docusate Sodium*), 100 MG ORAL TWICE A DAY, (Reported) Ertapenem Sodium* (INVanz*), 1 GM IVPB Q24H, (Reported) Mirabegron (Myrbetriq), 50 MG PO DAILY, (Reported) Multivitamins* (Multivitamins*), 1 TAB ORAL DAILY, (Reported) Sennosides (Senna), 8.6 MG PO BID, (Reported) Zinc Sulfate (Zinc Sulfate), 220 MG ORAL DAILY, (Reported) Miscellaneous Medications Biotin (Biotin), 1,000 MCG PO, (Reported) Patient History Limited by: medical condition History Provided By: Medical Record, PMD Healthcare decision maker Resuscitation status Full Code Advanced Directive on File No Past Medical/Surgical History Past Medical/Surgical History: (1) Pulmonary edema (2) Encounter for care or replacement of suprapubic tube (3) Cellulitis (4) Blocked suprapubic catheter (5) Urinary catheter in place (6) Hyperkalemia (7) Hypotension (8) Paraplegia (9) Pyelonephritis (10) Sepsis (11) ATN (acute tubular necrosis) (12) Spina bifida (13) Suprapubic catheter (14) Restrictive lung disease due to kyphoscoliosis Review of Systems ROS Narrative CAnnot Obtain given patient's history Physical Exam General Appearance: no apparent distress Lines, tubes and drains: peripheral HEENT: mucous membranes moist Neck: supple, normal inspection Respiratory/Chest: no respiratory distress, no accessory muscle use, decreased breath sounds Cardiovascular/Chest: normal rate, regular rhythm Abdomen: normal bowel sounds, soft, no organomegaly, no mass Extremities: other Skin Exam: other Neurologic: alert, responsive Last 24 Hour Vital Signs Date Time Temp Pulse Resp B/P (MAP) Pulse Ox O2 Delivery O2 Flow Rate FiO2 10/08/18 12:00 97.5 71 16 112/62 (79) 95 10/08/18 09:00 Nasal Cannula 2.0 10/08/18 08:00 97.7 102 18 130/67 (88) 10/08/18 04:00 98.0 78 20 119/85 (96) 10/08/18 00:00 98.9 98 20 118/65 (82) 10/07/18 22:58 Room Air 10/07/18 21:44 98.4 80 18 105/61 96 Room Air 10/07/18 17:39 98.4 87 21 110/65 93 Room Air 10/07/18 16:38 88 22 Room Air 10/07/18 16:28 98.2 88 22 107/71 90 Room Air Intake and Output 10/07/18 10/08/18 19:00 07:00 Intake Total 1055 ml Output Total 300 ml 400 ml Balance -300 ml 655 ml IV Total 1055 ml Output Urine Total 300 ml 400 ml # Bowel Movements 1 Laboratory Tests Test 10/07/18 17:00 10/08/18 08:25 10/08/18 11:55 White Blood Count 14.6 K/UL (4.8-10.8) H 10.1 K/UL (4.8-10.8) Red Blood Count 4.88 M/UL (4.20-5.40) 4.89 M/UL (4.20-5.40) Hemoglobin 11.2 G/DL (12.0-16.0) L 11.2 G/DL (12.0-16.0) L Hematocrit 36.4 % (37.0-47.0) L 36.8 % (37.0-47.0) L Mean Corpuscular Volume 75 FL (80-99) L 75 FL (80-99) L Mean Corpuscular Hemoglobin 22.9 PG (27.0-31.0) L 22.9 PG (27.0-31.0) L Mean Corpuscular Hemoglobin Concent 30.7 G/DL (32.0-36.0) L 30.5 G/DL (32.0-36.0) L Red Cell Distribution Width 17.1 % (11.6-14.8) H 17.4 % (11.6-14.8) H Platelet Count 392 K/UL (150-450) 384 K/UL (150-450) Mean Platelet Volume 5.1 FL (6.5-10.1) L 5.6 FL (6.5-10.1) L Neutrophils (%) (Auto) 65.8 % (45.0-75.0) 72.1 % (45.0-75.0) Lymphocytes (%) (Auto) 23.4 % (20.0-45.0) 18.3 % (20.0-45.0) L Monocytes (%) (Auto) 6.9 % (1.0-10.0) 4.9 % (1.0-10.0) Eosinophils (%) (Auto) 3.2 % (0.0-3.0) H 4.1 % (0.0-3.0) H Basophils (%) (Auto) 0.8 % (0.0-2.0) 0.6 % (0.0-2.0) Urine Color Pale yellow Pale yellow Urine Appearance Slightly cloudy Slightly cloudy Urine pH 8 (4.5-8.0) 8 (4.5-8.0) Urine Specific [place] 1.010 (1.005-1.035) 1.010 (1.005-1.035) Urine Protein 3+ (NEGATIVE) H 3+ (NEGATIVE) H Urine Glucose (UA) Negative (NEGATIVE) Negative (NEGATIVE) Urine Ketones Negative (NEGATIVE) Negative (NEGATIVE) Urine Blood 5+ (NEGATIVE) H 5+ (NEGATIVE) H Urine Nitrite Positive (NEGATIVE) H Positive (NEGATIVE) H Urine Bilirubin Negative (NEGATIVE) Negative (NEGATIVE) Urine Urobilinogen Normal MG/DL (0.0-1.0) Normal MG/DL (0.0-1.0) Urine Leukocyte Esterase 3+ (NEGATIVE) H 3+ (NEGATIVE) H Urine RBC 10-15 /HPF (0 - 2) H 10-15 /HPF (0 - 2) H Urine WBC 5-10 /HPF (0 - 2) H 10-15 /HPF (0 - 2) H Urine Squamous Epithelial Cells Moderate /LPF (NONE/OCC) H Few /LPF (NONE/OCC) Urine Bacteria Many /HPF (NONE) H Few /HPF (NONE) Urine HCG, Qualitative Negative (NEGATIVE) Sodium Level 136 MMOL/L (136-145) 141 MMOL/L (136-145) Potassium Level 4.4 MMOL/L (3.5-5.1) 3.6 MMOL/L (3.5-5.1) Chloride Level 97 MMOL/L (98-107) L 102 MMOL/L (98-107) Carbon Dioxide Level 32 MMOL/L (21-32) 33 MMOL/L (21-32) H Anion Gap 7 mmol/L (5-15) 6 mmol/L (5-15) Blood Urea Nitrogen 16 mg/dL (7-18) 13 mg/dL (7-18) Creatinine 0.4 MG/DL (0.55-1.30) L 0.5 MG/DL (0.55-1.30) L Estimat Glomerular Filtration Rate > 60 mL/min (>60) > 60 mL/min (>60) Glucose Level 90 MG/DL (74-106) 164 MG/DL (74-106) H Calcium Level 9.0 MG/DL (8.5-10.1) 8.6 MG/DL (8.5-10.1) Total Bilirubin 0.3 MG/DL (0.2-1.0) 0.2 MG/DL (0.2-1.0) Aspartate Amino Transf (AST/SGOT) 15 U/L (15-37) 7 U/L (15-37) L Alanine Aminotransferase (ALT/SGPT) 6 U/L (12-78) L 9 U/L (12-78) L Alkaline Phosphatase 109 U/L (46-116) 99 U/L (46-116) Total Protein 8.5 G/DL (6.4-8.2) H 8.0 G/DL (6.4-8.2) Albumin 2.8 G/DL (3.4-5.0) L 2.6 G/DL (3.4-5.0) L Globulin 5.7 g/dL 5.4 g/dL Albumin/Globulin Ratio 0.5 (1.0-2.7) L 0.5 (1.0-2.7) L Lipase 92 U/L (73-393) Microbiology Date/Time Source Procedure Growth Status 10/08/18 13:52 Nasopharynx Influenza Types A,B Antigen (KRISTINA) - Final Complete 10/07/18 17:00 Urine,Clean Catch Urine Culture - Preliminary Resulted Height (Feet): 5 Height (Inches): 2.00 Weight (Pounds): 130 Medications Current Medications Medications (Trade) Dose Ordered Sig/Sandeep Route PRN Reason Start Time Stop Time Status Last Admin Dose Admin Acetaminophen (Tylenol) 650 mg Q4H PRN ORAL fever 10/07/18 21:45 11/06/18 21:44 Albuterol/ Ipratropium (Albuterol/ Ipratropium) 3 ml Q4H PRN HHN Shortness of Breath 10/07/18 21:45 10/12/18 21:44 Ceftriaxone Sodium 1 gm/ Dextrose 55 ml @ 110 mls/hr Q24H IVPB 10/08/18 21:00 10/15/18 20:59 Heparin Sodium (Porcine) (Heparin 5000 units/ml) 5,000 units EVERY 12 HOURS SUBQ 10/08/18 09:00 11/07/18 08:59 10/08/18 08:08 Morphine Sulfate (Morphine Sulfate) 2 mg Q4H PRN IVP Moderate Pain (Pain Scale 4-6) 10/07/18 21:45 10/14/18 21:44 Ondansetron HCl (Zofran) 4 mg Q6H PRN IVP Nausea & Vomiting 10/07/18 21:45 11/06/18 21:44 Phenazopyridine HCl (Pyridium) 100 mg DAILY PRN ORAL dysuria 10/07/18 21:45 11/06/18 21:44 Polyethylene Glycol (Miralax) 17 gm DAILYPRN PRN ORAL Constipation 10/07/18 21:45 11/06/18 21:44 Temazepam (Restoril) 15 mg HSPRN PRN ORAL Insomnia 10/07/18 21:45 10/14/18 21:44 Vancomycin HCl (Vanco rx to dose) 1 ea DAILY PRN MISC Per rx protocol 10/08/18 14:00 11/07/18 13:59 Vancomycin HCl 1 gm/Dextrose 275 ml @ 183.3 mls/ hr Q12HR@1100,2300 IVPB 10/07/18 23:00 10/12/18 22:59 10/08/18 11:29 Assessment/Plan Problem List: (1) Decubitus skin ulcer Assessment & Plan: Patient presented on admission with resolving 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 Historical scars noted to lumbar area. Base of wound at sacrum with scattered slough, Bone is palpable , otherwise pink. (+) maceration along borders. NO odor noted. Small amt serous exudate.(L)2.1cm x (W)1.4cm x (D)0.7cm. Hyperpigmentation noted periwound. Shearing with loose dry skin noted to R buttocks /R ischial area Both heels are soft with dry peeling skin. Both heels are blanchable. Hypoalbuminemia noted Malnutrition Tx.Plan: Cleanse sacral wound with Saline.Apply Therahoney. Apply Triad periwound. Cover with Optifoam drsg Daily and prn. Apply Triad Paste to L Buttocks/L Ischial area with each perineal care. Apply Cavilon Skin Barrier to both heels. Off-load heels with Pillow. Reposition at least every 2hours or as tolerated. APM/JOSE mattress. Nutritional optimization for wound healing Nutrition consult Labs noted ICD Codes: L89.90 - Pressure ulcer of unspecified site, unspecified stage SNOMED: 544900027 (2) Suprapubic catheter Assessment & Plan: noted prior hx uti associated currently with likely uti / infectious etiology on IV abx as per ID cont with abx and strict catheter precautions. ICD Codes: Z93.59 - Other cystostomy status SNOMED: 293336768, [id number] Saad Neves Oct 08, 2018 15:13
--- NOTE | 2018-10-08 15:37 | Cardiology Report ---
APPROVED REPORT EKG Measurement Heart [id number] Normal sinus rhythm Low voltage QRS Borderline ECG
[2018-10-08 16:00] VITALS: BP 112/71
--- NOTE | 2018-10-08 19:16 | NUR ---
HAND-OFF: Report given to EMMA LIM.
--- NOTE | 2018-10-08 19:29 | NUR ---
NURSE NOTES: Received patient in bed, asleep, no acute distress noted or reported, VSS, afebrile, call light is within reach, bed is in lowest position, locked and alarm is on. Will continue to monitor for safety and comfort.
[2018-10-08 20:00] VITALS: BP 116/78
[2018-10-08] MEDS: cefTRIAXone 1 GM in D5W 55 ML IVPB SCH (20:53)
--- NOTE | 2018-10-08 23:39 | Internal Med Progress Note ---
Subjective Physician Name GuerreroWil lozano Attending Physician Chyna Pryor MD Current Medications Medications (Trade) Dose Ordered Sig/Sandeep Route PRN Reason Start Time Stop Time Status Last Admin Dose Admin Acetaminophen (Tylenol) 650 mg Q4H PRN ORAL fever 10/07/18 21:45 11/06/18 21:44 10/08/18 20:55 Albuterol/ Ipratropium (Albuterol/ Ipratropium) 3 ml Q4H PRN HHN Shortness of Breath 10/07/18 21:45 10/12/18 21:44 Ceftriaxone Sodium 1 gm/ Dextrose 55 ml @ 110 mls/hr Q24H IVPB 10/08/18 21:00 10/15/18 20:59 10/08/18 20:53 Heparin Sodium (Porcine) (Heparin 5000 units/ml) 5,000 units EVERY 12 HOURS SUBQ 10/08/18 09:00 11/07/18 08:59 10/08/18 20:56 Morphine Sulfate (Morphine Sulfate) 2 mg Q4H PRN IVP Moderate Pain (Pain Scale 4-6) 10/07/18 21:45 10/14/18 21:44 Ondansetron HCl (Zofran) 4 mg Q6H PRN IVP Nausea & Vomiting 10/07/18 21:45 11/06/18 21:44 Phenazopyridine HCl (Pyridium) 100 mg DAILY PRN ORAL dysuria 10/07/18 21:45 11/06/18 21:44 Polyethylene Glycol (Miralax) 17 gm DAILYPRN PRN ORAL Constipation 10/07/18 21:45 11/06/18 21:44 Temazepam (Restoril) 15 mg HSPRN PRN ORAL Insomnia 10/07/18 21:45 10/14/18 21:44 Vancomycin HCl (Vanco rx to dose) 1 ea DAILY PRN MISC Per rx protocol 10/08/18 14:00 11/07/18 13:59 Vancomycin HCl/ Dextrose 275 ml @ 137.5 mls/ hr Q12H IVPB 10/08/18 23:00 10/13/18 22:59 Allergies: Coded Allergies: PENICILLIN G (Verified Allergy, Unknown, 03/12/18) Tolerates cabapenem, cephalosporin PENICILLINS (Unverified Allergy, Unknown, 08/23/18) Subjective awake, responsive, slow expressive, NAD Objective Last Vital Signs Date Time Temp Pulse Resp B/P (MAP) Pulse Ox O2 Delivery O2 Flow Rate FiO2 10/08/18 21:00 Nasal Cannula 2.0 10/08/18 20:00 97.9 87 18 116/78 (91) 10/08/18 16:00 97 Laboratory Tests Test 10/08/18 08:25 10/08/18 11:55 10/08/18 21:45 White Blood Count 10.1 K/UL (4.8-10.8) Red Blood Count 4.89 M/UL (4.20-5.40) Hemoglobin 11.2 G/DL (12.0-16.0) L Hematocrit 36.8 % (37.0-47.0) L Mean Corpuscular Volume 75 FL (80-99) L Mean Corpuscular Hemoglobin 22.9 PG (27.0-31.0) L Mean Corpuscular Hemoglobin Concent 30.5 G/DL (32.0-36.0) L Red Cell Distribution Width 17.4 % (11.6-14.8) H Platelet Count 384 K/UL (150-450) Mean Platelet Volume 5.6 FL (6.5-10.1) L Neutrophils (%) (Auto) 72.1 % (45.0-75.0) Lymphocytes (%) (Auto) 18.3 % (20.0-45.0) L Monocytes (%) (Auto) 4.9 % (1.0-10.0) Eosinophils (%) (Auto) 4.1 % (0.0-3.0) H Basophils (%) (Auto) 0.6 % (0.0-2.0) Sodium Level 141 MMOL/L (136-145) Potassium Level 3.6 MMOL/L (3.5-5.1) Chloride Level 102 MMOL/L (98-107) Carbon Dioxide Level 33 MMOL/L (21-32) H Anion Gap 6 mmol/L (5-15) Blood Urea Nitrogen 13 mg/dL (7-18) Creatinine 0.5 MG/DL (0.55-1.30) L Estimat Glomerular Filtration Rate > 60 mL/min (>60) Glucose Level 164 MG/DL (74-106) H Calcium Level 8.6 MG/DL (8.5-10.1) Total Bilirubin 0.2 MG/DL (0.2-1.0) Aspartate Amino Transf (AST/SGOT) 7 U/L (15-37) L Alanine Aminotransferase (ALT/SGPT) 9 U/L (12-78) L Alkaline Phosphatase 99 U/L (46-116) Total Protein 8.0 G/DL (6.4-8.2) Albumin 2.6 G/DL (3.4-5.0) L Globulin 5.4 g/dL Albumin/Globulin Ratio 0.5 (1.0-2.7) L Urine Color Pale yellow Urine Appearance Slightly cloudy Urine pH 8 (4.5-8.0) Urine Specific [place] 1.010 (1.005-1.035) Urine Protein 3+ (NEGATIVE) H Urine Glucose (UA) Negative (NEGATIVE) Urine Ketones Negative (NEGATIVE) Urine Blood 5+ (NEGATIVE) H Urine Nitrite Positive (NEGATIVE) H Urine Bilirubin Negative (NEGATIVE) Urine Urobilinogen Normal MG/DL (0.0-1.0) Urine Leukocyte Esterase 3+ (NEGATIVE) H Urine RBC 10-15 /HPF (0 - 2) H Urine WBC 10-15 /HPF (0 - 2) H Urine Squamous Epithelial Cells Few /LPF (NONE/OCC) Urine Bacteria Few /HPF (NONE) Vancomycin Level Trough 11.6 ug/mL (5.0-12.0) Microbiology Date/Time Source Procedure Growth Status 10/08/18 13:52 Nasopharynx Influenza Types A,B Antigen (KRISTINA) - Final Complete 10/07/18 17:00 Urine,Clean Catch Urine Culture - Preliminary Resulted Intake and Output 10/07/18 10/08/18 19:00 07:00 Intake Total 1055 ml Output Total 300 ml 400 ml Balance -300 ml 655 ml IV Total 1055 ml Output Urine Total 300 ml 400 ml # Bowel Movements 1 Objective General: No acute distress, awake and responsive. HEENT: NCAT, sclera anicteric, PERRL, EOMI. Neck: Supple, no significant jugular venous distention, Lungs: Fair inspiratory effort, decrease air at bases, no Wheeze or Rales. Heart: Regular rate and rhythm, normal S1/S2, no murmur. Abdomen: soft, nontender, nondistended. Normoactive bowel sounds. / Rectal: suprapubic cath Extremities: No Cyanosis , clubbing or edema. Neuro: A&O x 3, Able to move upper extremitas only, paraplegia. Skin: warm, no rash,t Assessment/Plan Assessment/Plan 1) Sepsis ICD Codes: A41.9 - Sepsis, unspecified organism SNOMED: 81678964 (2) Pyelonephritis ICD Codes: N12 - Tubulo-interstitial nephritis, not specified as acute or chronic SNOMED: 63199569 (3) Spina bifida ICD Codes: Q05.9 - Spina bifida, unspecified SNOMED: 21009766 (4) Neurogenetic bladder s/p Suprapubic catheter ICD Codes: Z93.59 - Other cystostomy status SNOMED: 636703853, 950913058 (5) Paraplegia ICD Codes: G82.20 - Paraplegia, unspecified SNOMED: 21135451 (6) Restrictive lung disease due to kyphoscoliosis ICD Codes: J98.4 - Other disorders of lung; M41.9 - Scoliosis, unspecified SNOMED: 929111782 Abx: Rocephin and Vanco IV Monitor labs and cultures Heparin SQ Full code. Wil Masters MD Oct 08, 2018 23:39
[2018-10-08] MEDS: Vancomycin 1.5gm Premix q24h IVPB SCH (23:41)
[2018-10-09] VITALS: BP 118/78
[2018-10-09 04:00] VITALS: BP 129/75
--- NOTE | 2018-10-09 07:30 | NUR ---
nurse notes received patient in bed, awake, no sign of distress,HL not in place, plastic is already out, on fall and aspiration precaution , turn q2h for comfort and good circulation,kept clean dry and comfortable in bed evie irwin
--- NOTE | 2018-10-09 07:38 | NUR ---
HAND-OFF: Report given to Nishi CARTER.
[2018-10-09 08:00] VITALS: BP 145/75
[2018-10-09] MEDS: Heparin 5000 units/ml inj SUBQ SCH ×2 (08:26→21:09)
--- NOTE | 2018-10-09 09:50 | NUR ---
nurse notes dressing changed done, sacral area tolerated well evie irwin
[2018-10-09] MEDS: Vancomycin 1.5gm Premix q24h IVPB SCH (10:44)
[2018-10-09 12:00] VITALS: BP 117/66
--- NOTE | 2018-10-09 13:00 | Pulmonology Progress Note ---
Assessment/Plan Problems: (1) Sepsis (2) Pyelonephritis (3) Spina bifida (4) Suprapubic catheter (5) Paraplegia (6) Restrictive lung disease due to kyphoscoliosis Assessment/Plan check cultures continue abx symptomatic treatment dvrt prophylaxis supra-pubic catheter care check electrolytes Subjective ROS Limited/Unobtainable: No Constitutional: Reports: no symptoms HEENT: Repors: no symptoms Respiratory: Reports: no symptoms Allergies: Coded Allergies: PENICILLIN G (Verified Allergy, Unknown, 03/12/18) Tolerates cabapenem, cephalosporin PENICILLINS (Unverified Allergy, Unknown, 08/23/18) Objective Last 24 Hour Vital Signs Date Time Temp Pulse Resp B/P (MAP) Pulse Ox O2 Delivery O2 Flow Rate FiO2 10/09/18 12:00 96.8 61 14 117/66 (83) 10/09/18 08:10 Nasal Cannula 2.0 10/09/18 08:00 96.3 70 13 145/75 (98) 10/09/18 04:00 98.5 89 18 129/75 (93) 10/09/18 00:00 98.9 85 20 118/78 (91) 10/08/18 21:00 Nasal Cannula 2.0 10/08/18 20:00 97.9 87 18 116/78 (91) 10/08/18 16:00 98.9 83 18 112/71 (85) 97 Intake and Output 10/08/18 10/09/18 18:59 06:59 Intake Total 960 ml Output Total 700 ml 400 ml Balance 260 ml -400 ml Intake Oral 960 ml Output Urine Total 700 ml 400 ml General Appearance: WD/WN HEENT: normocephalic, anicteric Respiratory/Chest: chest wall non-tender, lungs clear, chest wall tender Cardiovascular: normal peripheral pulses, regular rhythm Abdomen: normal bowel sounds, no organomegaly Genitourinary: normal external genitalia Skin: no rash Microbiology Date/Time Source Procedure Growth Status 10/08/18 13:52 Nasopharynx Influenza Types A,B Antigen (KRISTINA) - Final Complete 10/08/18 11:55 Indwelling Cath Urine Culture - Preliminary Resulted 10/07/18 17:00 Urine,Clean Catch Urine Culture - Preliminary Gram Negative Bacillus 1 Resulted Laboratory Tests 10/08/18 21:45: Vancomycin Level Trough 11.6 Current Medications Medications (Trade) Dose Ordered Sig/Sandeep Route PRN Reason Start Time Stop Time Status Last Admin Dose Admin Acetaminophen (Tylenol) 650 mg Q4H PRN ORAL fever 10/07/18 21:45 11/06/18 21:44 10/08/18 20:55 Albuterol/ Ipratropium (Albuterol/ Ipratropium) 3 ml Q4H PRN HHN Shortness of Breath 10/07/18 21:45 10/12/18 21:44 Ceftriaxone Sodium 1 gm/ Dextrose 55 ml @ 110 mls/hr Q24H IVPB 10/08/18 21:00 10/15/18 20:59 10/08/18 20:53 Heparin Sodium (Porcine) (Heparin 5000 units/ml) 5,000 units EVERY 12 HOURS SUBQ 10/08/18 09:00 11/07/18 08:59 10/09/18 08:26 Morphine Sulfate (Morphine Sulfate) 2 mg Q4H PRN IVP Moderate Pain (Pain Scale 4-6) 10/07/18 21:45 10/14/18 21:44 Ondansetron HCl (Zofran) 4 mg Q6H PRN IVP Nausea & Vomiting 10/07/18 21:45 11/06/18 21:44 Phenazopyridine HCl (Pyridium) 100 mg DAILY PRN ORAL dysuria 10/07/18 21:45 11/06/18 21:44 Polyethylene Glycol (Miralax) 17 gm DAILYPRN PRN ORAL Constipation 10/07/18 21:45 11/06/18 21:44 Temazepam (Restoril) 15 mg HSPRN PRN ORAL Insomnia 10/07/18 21:45 10/14/18 21:44 Vancomycin HCl (Vanco rx to dose) 1 ea DAILY PRN MISC Per rx protocol 10/08/18 14:00 11/07/18 13:59 Vancomycin HCl/ Dextrose 275 ml @ 137.5 mls/ hr Q12H IVPB 10/08/18 23:00 10/13/18 22:59 10/09/18 10:44 Chyna Pryor MD Oct 09, 2018 13:00
--- NOTE | 2018-10-09 14:16 | Surgery Progress Note ---
Surgery Progress Note Subjective Additional Comments no acute events. leukocytosis improved. labs okay. cultures noted with UTI Objective Last 24 Hour Vital Signs Date Time Temp Pulse Resp B/P (MAP) Pulse Ox O2 Delivery O2 Flow Rate FiO2 10/09/18 12:00 96.8 61 14 117/66 (83) 10/09/18 08:10 Nasal Cannula 2.0 10/09/18 08:00 96.3 70 13 145/75 (98) 10/09/18 04:00 98.5 89 18 129/75 (93) 10/09/18 00:00 98.9 85 20 118/78 (91) 10/08/18 21:00 Nasal Cannula 2.0 10/08/18 20:00 97.9 87 18 116/78 (91) 10/08/18 16:00 98.9 83 18 112/71 (85) 97 I&O Intake and Output 10/08/18 10/09/18 18:59 06:59 Intake Total 960 ml Output Total 700 ml 400 ml Balance 260 ml -400 ml Intake Oral 960 ml Output Urine Total 700 ml 400 ml Dressing: other Wound: other Drains: other Cardiovascular: RSR Respiratory: clear Abdomen: soft, other, non-distended Extremities: no cyanosis Laboratory Tests Test 10/08/18 21:45 Vancomycin Level Trough 11.6 ug/mL (5.0-12.0) Plan Problems: (1) Decubitus skin ulcer Assessment & Plan: Patient presented on admission with resolving 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 Historical scars noted to lumbar area. Base of wound at sacrum with scattered slough, Bone is palpable , otherwise pink. (+) maceration along borders. NO odor noted. Small amt serous exudate.(L)2.1cm x (W)1.4cm x (D)0.7cm. Hyperpigmentation noted periwound. Shearing with loose dry skin noted to R buttocks /R ischial area Both heels are soft with dry peeling skin. Both heels are blanchable. Hypoalbuminemia noted Malnutrition Tx.Plan: Cleanse sacral wound with Saline.Apply Therahoney. Apply Triad periwound. Cover with Optifoam drsg Daily and prn. Apply Triad Paste to L Buttocks/L Ischial area with each perineal care. Apply Cavilon Skin Barrier to both heels. Off-load heels with Pillow. Reposition at least every 2hours or as tolerated. APM/JOSE mattress. Nutritional optimization for wound healing Nutrition consult Labs noted (2) Suprapubic catheter Assessment & Plan: noted prior hx uti associated currently with likely uti / infectious etiology micro with uti on IV abx as per ID cont with abx and strict catheter precautions. Saad Neves Oct 09, 2018 14:16
--- NOTE | 2018-10-09 15:09 | Infectious Diseases Prog Note ---
Assessment/Plan Assessment/Plan Abx: IV Vancomycin 10/07- Ceftriaxone x1 10/07 Assessment: Probable UTI -u.a wbc 5-10, nit +, leuk +3; ucx >100k GNR Afebrile Leukocytosis, resolved -CXR: No acute findings appreciated. 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 Will continue to follow along with you. Subjective Allergies: Coded Allergies: PENICILLIN G (Verified Allergy, Unknown, 03/12/18) Tolerates cabapenem, cephalosporin PENICILLINS (Unverified Allergy, Unknown, 08/23/18) Subjective afebrile at 2l NC Objective Vital Signs Last 24 Hour Vital Signs Date Time Temp Pulse Resp B/P (MAP) Pulse Ox O2 Delivery O2 Flow Rate FiO2 10/09/18 12:00 96.8 61 14 117/66 (83) 10/09/18 08:10 Nasal Cannula 2.0 10/09/18 08:00 96.3 70 13 145/75 (98) 10/09/18 04:00 98.5 89 18 129/75 (93) 10/09/18 00:00 98.9 85 20 118/78 (91) 10/08/18 21:00 Nasal Cannula 2.0 10/08/18 20:00 97.9 87 18 116/78 (91) 10/08/18 16:00 98.9 83 18 112/71 (85) 97 Height (Feet): 5 Height (Inches): 2.00 Weight (Pounds): 130 Objective General Appearance: no apparent distress, alert HEENT normocephalic, atraumatic hearing grossly normal, normal pharynx, no angioedema Respiratory: chest non-tender, lungs clear, normal breath sounds, no respiratory distress, no retraction, no accessory muscle use, speaking full sentences Cardiovascular: regular rate, rhythm Gastrointestinal: normal bowel sounds, non tender, soft, non-distended, no guarding, no rebound Musculoskeletal: other - At baseline, kyphoscoliosis, contractures Neurologic: alert, other - At baseline Skin: warm/dry, well hydrated, other - See RN skin exam Microbiology Date/Time Source Procedure Growth Status 10/08/18 13:52 Nasopharynx Influenza Types A,B Antigen (KRISTINA) - Final Complete 10/08/18 11:55 Indwelling Cath Urine Culture - Preliminary Resulted 10/07/18 17:00 Urine,Clean Catch Urine Culture - Preliminary Gram Negative Bacillus 1 Resulted Laboratory Tests Test 10/08/18 21:45 Vancomycin Level Trough 11.6 ug/mL (5.0-12.0) Current Medications Medications (Trade) Dose Ordered Sig/Sandeep Route PRN Reason Start Time Stop Time Status Last Admin Dose Admin Acetaminophen (Tylenol) 650 mg Q4H PRN ORAL fever 10/07/18 21:45 11/06/18 21:44 10/08/18 20:55 Albuterol/ Ipratropium (Albuterol/ Ipratropium) 3 ml Q4H PRN HHN Shortness of Breath 10/07/18 21:45 10/12/18 21:44 Ceftriaxone Sodium 1 gm/ Dextrose 55 ml @ 110 mls/hr Q24H IVPB 10/08/18 21:00 10/15/18 20:59 10/08/18 20:53 Heparin Sodium (Porcine) (Heparin 5000 units/ml) 5,000 units EVERY 12 HOURS SUBQ 10/08/18 09:00 11/07/18 08:59 10/09/18 08:26 Morphine Sulfate (Morphine Sulfate) 2 mg Q4H PRN IVP Moderate Pain (Pain Scale 4-6) 10/07/18 21:45 10/14/18 21:44 Ondansetron HCl (Zofran) 4 mg Q6H PRN IVP Nausea & Vomiting 10/07/18 21:45 11/06/18 21:44 Phenazopyridine HCl (Pyridium) 100 mg DAILY PRN ORAL dysuria 10/07/18 21:45 11/06/18 21:44 Polyethylene Glycol (Miralax) 17 gm DAILYPRN PRN ORAL Constipation 10/07/18 21:45 11/06/18 21:44 Temazepam (Restoril) 15 mg HSPRN PRN ORAL Insomnia 10/07/18 21:45 10/14/18 21:44 Vancomycin HCl (Vanco rx to dose) 1 ea DAILY PRN MISC Per rx protocol 10/08/18 14:00 11/07/18 13:59 Vancomycin HCl/ Dextrose 275 ml @ 137.5 mls/ hr Q12H IVPB 10/08/18 23:00 10/13/18 22:59 10/09/18 10:44 Joaquina Hill M.D. Oct 09, 2018 15:09
[2018-10-09 16:00] VITALS: BP 140/57
--- NOTE | 2018-10-09 18:21 | Internal Med Progress Note ---
Subjective Physician Name GuerreroWil lozano Attending Physician Chyna Pryor MD Current Medications Medications (Trade) Dose Ordered Sig/Sandeep Route PRN Reason Start Time Stop Time Status Last Admin Dose Admin Acetaminophen (Tylenol) 650 mg Q4H PRN ORAL fever 10/07/18 21:45 11/06/18 21:44 10/08/18 20:55 Albuterol/ Ipratropium (Albuterol/ Ipratropium) 3 ml Q4H PRN HHN Shortness of Breath 10/07/18 21:45 10/12/18 21:44 Ceftriaxone Sodium 1 gm/ Dextrose 55 ml @ 110 mls/hr Q24H IVPB 10/08/18 21:00 10/15/18 20:59 10/08/18 20:53 Heparin Sodium (Porcine) (Heparin 5000 units/ml) 5,000 units EVERY 12 HOURS SUBQ 10/08/18 09:00 11/07/18 08:59 10/09/18 08:26 Morphine Sulfate (Morphine Sulfate) 2 mg Q4H PRN IVP Moderate Pain (Pain Scale 4-6) 10/07/18 21:45 10/14/18 21:44 Ondansetron HCl (Zofran) 4 mg Q6H PRN IVP Nausea & Vomiting 10/07/18 21:45 11/06/18 21:44 Phenazopyridine HCl (Pyridium) 100 mg DAILY PRN ORAL dysuria 10/07/18 21:45 11/06/18 21:44 Polyethylene Glycol (Miralax) 17 gm DAILYPRN PRN ORAL Constipation 10/07/18 21:45 11/06/18 21:44 Temazepam (Restoril) 15 mg HSPRN PRN ORAL Insomnia 10/07/18 21:45 10/14/18 21:44 Allergies: Coded Allergies: PENICILLIN G (Verified Allergy, Unknown, 03/12/18) Tolerates cabapenem, cephalosporin PENICILLINS (Unverified Allergy, Unknown, 08/23/18) Subjective awake, responsive, mentally challenged, NAD Objective Last Vital Signs Date Time Temp Pulse Resp B/P (MAP) Pulse Ox O2 Delivery O2 Flow Rate FiO2 10/09/18 16:00 97.7 77 14 140/57 (84) 10/09/18 08:10 Nasal Cannula 2.0 10/08/18 16:00 97 Laboratory Tests Test 10/08/18 21:45 Vancomycin Level Trough 11.6 ug/mL (5.0-12.0) Microbiology Date/Time Source Procedure Growth Status 10/08/18 13:52 Nasopharynx Influenza Types A,B Antigen (KRISTINA) - Final Complete 10/08/18 11:55 Indwelling Cath Urine Culture - Preliminary Resulted 10/07/18 17:00 Urine,Clean Catch Urine Culture - Preliminary Gram Negative Bacillus 1 Resulted Intake and Output 10/08/18 10/09/18 19:00 07:00 Intake Total 960 ml Output Total 700 ml 400 ml Balance 260 ml -400 ml Intake Oral 960 ml Output Urine Total 700 ml 400 ml Objective General: No acute distress, awake and responsive. HEENT: NCAT, sclera anicteric, PERRL, EOMI. Neck: Supple, no significant jugular venous distention, Lungs: Fair inspiratory effort, decrease air at bases, no Wheeze or Rales. Heart: Regular rate and rhythm, normal S1/S2, no murmur. Abdomen: soft, nontender, nondistended. Normoactive bowel sounds. / Rectal: suprapubic cath Extremities: No Cyanosis , clubbing or edema. Neuro: A&O x 3, Able to move upper extremitas only, paraplegia. Skin: warm, no rash,t Assessment/Plan Assessment/Plan 1) Sepsis ICD Codes: A41.9 - Sepsis, unspecified organism SNOMED: 14031902 (2) Pyelonephritis / GNB UTI. ICD Codes: N12 - Tubulo-interstitial nephritis, not specified as acute or chronic SNOMED: 09515564 (3) Spina bifida ICD Codes: Q05.9 - Spina bifida, unspecified SNOMED: 29322528 (4) Neurogenetic bladder s/p Suprapubic catheter ICD Codes: Z93.59 - Other cystostomy status SNOMED: 160777159, 000160508 (5) Paraplegia ICD Codes: G82.20 - Paraplegia, unspecified SNOMED: 20812283 (6) Restrictive lung disease due to kyphoscoliosis ICD Codes: J98.4 - Other disorders of lung; M41.9 - Scoliosis, unspecified SNOMED: 265695956 (7) Decubitus skin ulcer Abx: Rocephin Monitor labs and cultures Heparin SQ Full code. Guerrero,Wil MD Oct 09, 2018 18:21
--- NOTE | 2018-10-09 19:55 | NUR ---
HAND-OFF: Report given to EMMA FALL. EMMA BERMUDEZ
[2018-10-09 20:00] VITALS: BP 135/62
--- NOTE | 2018-10-09 20:20 | NUR ---
NURSE NOTES: Received patient awake in bed, unable to verbalize needs, no s/s of acute distress. Nasal cannula on 2L noted. Suprapubic catheter noted, draining well, dressing intact. IV site asymptomatic, dressing reinforced. Call light within reach. 3 side rails up.
[2018-10-09] MEDS: cefTRIAXone 1 GM in D5W 55 ML IVPB SCH (20:53)
[2018-10-10] VITALS: BP 122/76
[2018-10-10 04:00] VITALS: BP 118/63
--- NOTE | 2018-10-10 07:10 | NUR ---
HAND-OFF: Report given to EMMA Almodovar.
[2018-10-10 08:00] VITALS: BP 117/61
[2018-10-10] MEDS: Heparin 5000 units/ml inj SUBQ SCH ×2 (08:26→20:23)
[2018-10-10 09:39] LABS: BASOPHILS % (AUTO) 0.7 % (0.0-2.0); EOSINOPHILS % (AUTO) 4.8 % (0.0-3.0); HEMATOCRIT 32.5 % (37.0-47.0); HEMOGLOBIN 9.8 G/DL (12.0-16.0); LYMPHOCYTES % (AUTO) 22.9 % (20.0-45.0); MEAN CORPUSCULAR VOLUME 75 FL (80-99); MONOCYTES % (AUTO) 4.3 % (1.0-10.0); NEUTROPHILS % (AUTO) 67.4 % (45.0-75.0); PLATELET COUNT 343 K/UL (150-450); RED BLOOD COUNT 4.33 M/UL (4.20-5.40); RED CELL DISTRIBUTION WIDTH 17.2 % (11.6-14.8)
[2018-10-10 10:01] LABS: ALANINE AMINOTRANSFERASE 8 U/L (12-78); ALBUMIN 2.5 G/DL (3.4-5.0); ALBUMIN/GLOBULIN RATIO 0.5 (1.0-2.7); ALKALINE PHOSPHATASE 86 U/L (46-116); ANION GAP 5 mmol/L (5-15); ASPARTATE AMINO TRANSFERASE 6 U/L (15-37); BILIRUBIN,TOTAL 0.1 MG/DL (0.2-1.0); BLOOD UREA NITROGEN 14 mg/dL (7-18); CALCIUM 8.5 MG/DL (8.5-10.1); CARBON DIOXIDE 35 MMOL/L (21-32); CHLORIDE 101 MMOL/L (98-107); CREATININE 0.5 MG/DL (0.55-1.30); POTASSIUM 3.5 MMOL/L (3.5-5.1); SODIUM 141 MMOL/L (136-145)
--- NOTE | 2018-10-10 10:22 | NUR ---
nurse notes received patient in bed, awake, no sign of distress,HL patent, on fall and aspiration precaution , turn q2h for comfort and good circulation,kept clean dry and comfortable in bed evie irwin
[2018-10-10 12:00] VITALS: BP 105/66
--- NOTE | 2018-10-10 12:50 | Pulmonology Progress Note ---
Assessment/Plan Problems: (1) Sepsis (2) Pyelonephritis (3) Spina bifida (4) Suprapubic catheter (5) Paraplegia (6) Restrictive lung disease due to kyphoscoliosis Assessment/Plan doing better afebrile check cultures continue abx symptomatic treatment dvrt prophylaxis supra-pubic catheter care check electrolytes dc in 1-2 days Subjective ROS Limited/Unobtainable: No Constitutional: Reports: no symptoms HEENT: Repors: no symptoms Respiratory: Reports: no symptoms Allergies: Coded Allergies: PENICILLIN G (Verified Allergy, Unknown, 03/12/18) Tolerates cabapenem, cephalosporin PENICILLINS (Unverified Allergy, Unknown, 08/23/18) Objective Last 24 Hour Vital Signs Date Time Temp Pulse Resp B/P (MAP) Pulse Ox O2 Delivery O2 Flow Rate FiO2 10/10/18 08:15 Nasal Cannula 2.0 10/10/18 08:00 97.5 82 17 117/61 (79) 10/10/18 04:00 97.7 82 16 118/63 (81) 10/10/18 00:00 97.8 92 16 122/76 (91) 10/09/18 21:00 Nasal Cannula 2.0 10/09/18 20:00 97.3 72 16 135/62 (86) 10/09/18 16:00 97.7 77 14 140/57 (84) Intake and Output 10/09/18 10/10/18 18:59 06:59 Intake Total 3012.5 ml Output Total 1800 ml 950 ml Balance 1212.5 ml -950 ml Intake Oral 1500 ml IV Total 1512.5 ml Output Urine Total 1800 ml 950 ml Objective General Appearance: WD/WN Respiratory/Chest: chest wall non-tender, lungs clear Cardiovascular: normal peripheral pulses, regular rhythm Abdomen: normal bowel sounds Genitourinary: normal external genitalia Skin: no rash Microbiology Date/Time Source Procedure Growth Status 10/08/18 08:25 Blood Blood Culture - Preliminary NO GROWTH AFTER 24 HOURS Resulted 10/08/18 08:10 Blood Blood Culture - Preliminary NO GROWTH AFTER 24 HOURS Resulted 10/08/18 13:52 Nasopharynx Influenza Types A,B Antigen (KRISTINA) - Final Complete 10/08/18 11:55 Indwelling Cath Urine Culture - Preliminary Resulted 10/07/18 17:00 Urine,Clean Catch Urine Culture - Preliminary Proteus Mirabilis Gram Negative Bacillus 2 Streptococcus Species Resulted Laboratory Tests 10/10/18 09:20: White Blood Count 8.0, Red Blood Count 4.33, Hemoglobin 9.8L, Hematocrit 32.5L, Mean Corpuscular Volume 75L, Mean Corpuscular Hemoglobin 22.7L, Mean Corpuscular Hemoglobin Concent 30.3L, Red Cell Distribution Width 17.2H, Platelet Count 343, Mean Platelet Volume 4.7L, Neutrophils (%) (Auto) 67.4, Lymphocytes (%) (Auto) 22.9, Monocytes (%) (Auto) 4.3, Eosinophils (%) (Auto) 4.8H, Basophils (%) (Auto) 0.7, Sodium Level 141, Potassium Level 3.5, Chloride Level 101, Carbon Dioxide Level 35H, Anion Gap 5, Blood Urea Nitrogen 14, Creatinine 0.5L, Estimat Glomerular Filtration Rate > 60, Glucose Level 128H, Calcium Level 8.5, Total Bilirubin 0.1L, Aspartate Amino Transf (AST/SGOT) 6L, Alanine Aminotransferase (ALT/SGPT) 8L, Alkaline Phosphatase 86, Total Protein 7.7, Albumin 2.5L, Globulin 5.2, Albumin/Globulin Ratio 0.5L Current Medications Medications (Trade) Dose Ordered Sig/Sandeep Route PRN Reason Start Time Stop Time Status Last Admin Dose Admin Acetaminophen (Tylenol) 650 mg Q4H PRN ORAL fever 10/07/18 21:45 11/06/18 21:44 10/08/18 20:55 Albuterol/ Ipratropium (Albuterol/ Ipratropium) 3 ml Q4H PRN HHN Shortness of Breath 10/07/18 21:45 10/12/18 21:44 Ceftriaxone Sodium 1 gm/ Dextrose 55 ml @ 110 mls/hr Q24H IVPB 10/08/18 21:00 10/15/18 20:59 10/09/18 20:53 Heparin Sodium (Porcine) (Heparin 5000 units/ml) 5,000 units EVERY 12 HOURS SUBQ 10/08/18 09:00 11/07/18 08:59 10/10/18 08:26 Morphine Sulfate (Morphine Sulfate) 2 mg Q4H PRN IVP Moderate Pain (Pain Scale 4-6) 10/07/18 21:45 10/14/18 21:44 Ondansetron HCl (Zofran) 4 mg Q6H PRN IVP Nausea & Vomiting 10/07/18 21:45 11/06/18 21:44 Phenazopyridine HCl (Pyridium) 100 mg DAILY PRN ORAL dysuria 10/07/18 21:45 11/06/18 21:44 Polyethylene Glycol (Miralax) 17 gm DAILYPRN PRN ORAL Constipation 10/07/18 21:45 11/06/18 21:44 Temazepam (Restoril) 15 mg HSPRN PRN ORAL Insomnia 10/07/18 21:45 10/14/18 21:44 Chyna Pryor MD Oct 10, 2018 12:50
--- NOTE | 2018-10-10 13:48 | Infectious Diseases Prog Note ---
Assessment/Plan Assessment/Plan Abx: IV Vancomycin 10/07- Ceftriaxone x1 10/07 Assessment: Probable UTI -u.a wbc 5-10, nit +, leuk +3; ucx >100k P. mirabilis (R amp, bactrim; otherwise S); >100k GNR #2, >100k Srep sp Afebrile Leukocytosis, resolved -CXR: No acute findings appreciated. No significant change -influenza sc neg Sacral decub ulcer- no signs of infection -hx of wound cx 02/2018 MRSA, P.mirabilis: colonizers Hx of UTI -MRSA 02/2018 -S. 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 Will continue to follow along with you. Subjective Allergies: Coded Allergies: PENICILLIN G (Verified Allergy, Unknown, 03/12/18) Tolerates cabapenem, cephalosporin PENICILLINS (Unverified Allergy, Unknown, 08/23/18) Subjective afebrile at 2l NC Objective Vital Signs Last 24 Hour Vital Signs Date Time Temp Pulse Resp B/P (MAP) Pulse Ox O2 Delivery O2 Flow Rate FiO2 10/10/18 12:00 97.5 80 19 105/66 (79) 10/10/18 08:15 Nasal Cannula 2.0 10/10/18 08:00 97.5 82 17 117/61 (79) 10/10/18 04:00 97.7 82 16 118/63 (81) 10/10/18 00:00 97.8 92 16 122/76 (91) 10/09/18 21:00 Nasal Cannula 2.0 10/09/18 20:00 97.3 72 16 135/62 (86) 10/09/18 16:00 97.7 77 14 140/57 (84) Height (Feet): 5 Height (Inches): 2.00 Weight (Pounds): 130 Objective General Appearance: no apparent distress, alert HEENT normocephalic, atraumatic hearing grossly normal, normal pharynx, no angioedema Respiratory: chest non-tender, lungs clear, normal breath sounds, no respiratory distress, no retraction, no accessory muscle use, speaking full sentences Cardiovascular: regular rate, rhythm Gastrointestinal: normal bowel sounds, non tender, soft, non-distended, no guarding, no rebound Musculoskeletal: other - At baseline, kyphoscoliosis, contractures Neurologic: alert, other - At baseline Skin: warm/dry, well hydrated, other - See RN skin exam Microbiology Date/Time Source Procedure Growth Status 10/08/18 08:25 Blood Blood Culture - Preliminary NO GROWTH AFTER 24 HOURS Resulted 10/08/18 08:10 Blood Blood Culture - Preliminary NO GROWTH AFTER 24 HOURS Resulted 10/08/18 13:52 Nasopharynx Influenza Types A,B Antigen (KRISTINA) - Final Complete 10/08/18 11:55 Indwelling Cath Urine Culture - Preliminary Resulted 10/07/18 17:00 Urine,Clean Catch Urine Culture - Preliminary Proteus Mirabilis Gram Negative Bacillus 2 Streptococcus Species Resulted Laboratory Tests Test 10/10/18 09:20 White Blood Count 8.0 K/UL (4.8-10.8) Red Blood Count 4.33 M/UL (4.20-5.40) Hemoglobin 9.8 G/DL (12.0-16.0) L Hematocrit 32.5 % (37.0-47.0) L Mean Corpuscular Volume 75 FL (80-99) L Mean Corpuscular Hemoglobin 22.7 PG (27.0-31.0) L Mean Corpuscular Hemoglobin Concent 30.3 G/DL (32.0-36.0) L Red Cell Distribution Width 17.2 % (11.6-14.8) H Platelet Count 343 K/UL (150-450) Mean Platelet Volume 4.7 FL (6.5-10.1) L Neutrophils (%) (Auto) 67.4 % (45.0-75.0) Lymphocytes (%) (Auto) 22.9 % (20.0-45.0) Monocytes (%) (Auto) 4.3 % (1.0-10.0) Eosinophils (%) (Auto) 4.8 % (0.0-3.0) H Basophils (%) (Auto) 0.7 % (0.0-2.0) Sodium Level 141 MMOL/L (136-145) Potassium Level 3.5 MMOL/L (3.5-5.1) Chloride Level 101 MMOL/L (98-107) Carbon Dioxide Level 35 MMOL/L (21-32) H Anion Gap 5 mmol/L (5-15) Blood Urea Nitrogen 14 mg/dL (7-18) Creatinine 0.5 MG/DL (0.55-1.30) L Estimat Glomerular Filtration Rate > 60 mL/min (>60) Glucose Level 128 MG/DL (74-106) H Calcium Level 8.5 MG/DL (8.5-10.1) Total Bilirubin 0.1 MG/DL (0.2-1.0) L Aspartate Amino Transf (AST/SGOT) 6 U/L (15-37) L Alanine Aminotransferase (ALT/SGPT) 8 U/L (12-78) L Alkaline Phosphatase 86 U/L (46-116) Total Protein 7.7 G/DL (6.4-8.2) Albumin 2.5 G/DL (3.4-5.0) L Globulin 5.2 g/dL Albumin/Globulin Ratio 0.5 (1.0-2.7) L Current Medications Medications (Trade) Dose Ordered Sig/Sandeep Route PRN Reason Start Time Stop Time Status Last Admin Dose Admin Acetaminophen (Tylenol) 650 mg Q4H PRN ORAL fever 10/07/18 21:45 11/06/18 21:44 10/08/18 20:55 Albuterol/ Ipratropium (Albuterol/ Ipratropium) 3 ml Q4H PRN HHN Shortness of Breath 10/07/18 21:45 10/12/18 21:44 Ceftriaxone Sodium 1 gm/ Dextrose 55 ml @ 110 mls/hr Q24H IVPB 10/08/18 21:00 10/15/18 20:59 10/09/18 20:53 Heparin Sodium (Porcine) (Heparin 5000 units/ml) 5,000 units EVERY 12 HOURS SUBQ 10/08/18 09:00 11/07/18 08:59 10/10/18 08:26 Morphine Sulfate (Morphine Sulfate) 2 mg Q4H PRN IVP Moderate Pain (Pain Scale 4-6) 10/07/18 21:45 10/14/18 21:44 Ondansetron HCl (Zofran) 4 mg Q6H PRN IVP Nausea & Vomiting 10/07/18 21:45 11/06/18 21:44 Phenazopyridine HCl (Pyridium) 100 mg DAILY PRN ORAL dysuria 10/07/18 21:45 11/06/18 21:44 Polyethylene Glycol (Miralax) 17 gm DAILYPRN PRN ORAL Constipation 10/07/18 21:45 11/06/18 21:44 Temazepam (Restoril) 15 mg HSPRN PRN ORAL Insomnia 10/07/18 21:45 10/14/18 21:44 Joaquina Hill M.D. Oct 10, 2018 13:48
--- NOTE | 2018-10-10 14:06 | Surgery Progress Note ---
Surgery Progress Note Subjective Symptoms: improved, pain absent, passing flatus Objective Last 24 Hour Vital Signs Date Time Temp Pulse Resp B/P (MAP) Pulse Ox O2 Delivery O2 Flow Rate FiO2 10/10/18 12:00 97.5 80 19 105/66 (79) 10/10/18 08:15 Nasal Cannula 2.0 10/10/18 08:00 97.5 82 17 117/61 (79) 10/10/18 04:00 97.7 82 16 118/63 (81) 10/10/18 00:00 97.8 92 16 122/76 (91) 10/09/18 21:00 Nasal Cannula 2.0 10/09/18 20:00 97.3 72 16 135/62 (86) 10/09/18 16:00 97.7 77 14 140/57 (84) I&O Intake and Output 10/09/18 10/10/18 18:59 06:59 Intake Total 3012.5 ml Output Total 1800 ml 950 ml Balance 1212.5 ml -950 ml Intake Oral 1500 ml IV Total 1512.5 ml Output Urine Total 1800 ml 950 ml Dressing: saturated Wound: clean Drains: other Cardiovascular: RSR Respiratory: decreased breath sounds Abdomen: soft, present bowel sounds, non-distended Extremities: no cyanosis Laboratory Tests Test 10/10/18 09:20 White Blood Count 8.0 K/UL (4.8-10.8) Red Blood Count 4.33 M/UL (4.20-5.40) Hemoglobin 9.8 G/DL (12.0-16.0) L Hematocrit 32.5 % (37.0-47.0) L Mean Corpuscular Volume 75 FL (80-99) L Mean Corpuscular Hemoglobin 22.7 PG (27.0-31.0) L Mean Corpuscular Hemoglobin Concent 30.3 G/DL (32.0-36.0) L Red Cell Distribution Width 17.2 % (11.6-14.8) H Platelet Count 343 K/UL (150-450) Mean Platelet Volume 4.7 FL (6.5-10.1) L Neutrophils (%) (Auto) 67.4 % (45.0-75.0) Lymphocytes (%) (Auto) 22.9 % (20.0-45.0) Monocytes (%) (Auto) 4.3 % (1.0-10.0) Eosinophils (%) (Auto) 4.8 % (0.0-3.0) H Basophils (%) (Auto) 0.7 % (0.0-2.0) Sodium Level 141 MMOL/L (136-145) Potassium Level 3.5 MMOL/L (3.5-5.1) Chloride Level 101 MMOL/L (98-107) Carbon Dioxide Level 35 MMOL/L (21-32) H Anion Gap 5 mmol/L (5-15) Blood Urea Nitrogen 14 mg/dL (7-18) Creatinine 0.5 MG/DL (0.55-1.30) L Estimat Glomerular Filtration Rate > 60 mL/min (>60) Glucose Level 128 MG/DL (74-106) H Calcium Level 8.5 MG/DL (8.5-10.1) Total Bilirubin 0.1 MG/DL (0.2-1.0) L Aspartate Amino Transf (AST/SGOT) 6 U/L (15-37) L Alanine Aminotransferase (ALT/SGPT) 8 U/L (12-78) L Alkaline Phosphatase 86 U/L (46-116) Total Protein 7.7 G/DL (6.4-8.2) Albumin 2.5 G/DL (3.4-5.0) L Globulin 5.2 g/dL Albumin/Globulin Ratio 0.5 (1.0-2.7) L Plan Problems: (1) Decubitus skin ulcer Assessment & Plan: Patient presented on admission with resolving 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 Historical scars noted to lumbar area. Base of wound at sacrum with scattered slough, Bone is palpable , otherwise pink. (+) maceration along borders. NO odor noted. Small amt serous exudate.(L)2.1cm x (W)1.4cm x (D)0.7cm. Hyperpigmentation noted periwound. Shearing with loose dry skin noted to R buttocks /R ischial area Both heels are soft with dry peeling skin. Both heels are blanchable. Hypoalbuminemia noted Malnutrition Tx.Plan: Cleanse sacral wound with Saline.Apply Therahoney. Apply Triad periwound. Cover with Optifoam drsg Daily and prn. Apply Triad Paste to L Buttocks/L Ischial area with each perineal care. Apply Cavilon Skin Barrier to both heels. Off-load heels with Pillow. Reposition at least every 2hours or as tolerated. APM/JOSE mattress. Nutritional optimization for wound healing Nutrition consult Labs noted (2) Suprapubic catheter Assessment & Plan: noted prior hx uti associated currently with likely uti / infectious etiology micro with uti on IV abx as per ID cont with abx and strict catheter precautions. Saad Neves Oct 10, 2018 14:06
[2018-10-10 16:00] VITALS: BP 115/73
--- NOTE | 2018-10-10 18:50 | Internal Med Progress Note ---
Subjective Date of Service: Oct 10, 2018 Physician Name Niraj Teixeira Attending Physician Chyna Pryor MD Current Medications Medications (Trade) Dose Ordered Sig/Sandeep Route PRN Reason Start Time Stop Time Status Last Admin Dose Admin Acetaminophen (Tylenol) 650 mg Q4H PRN ORAL fever 10/07/18 21:45 11/06/18 21:44 10/08/18 20:55 Albuterol/ Ipratropium (Albuterol/ Ipratropium) 3 ml Q4H PRN HHN Shortness of Breath 10/07/18 21:45 10/12/18 21:44 Ceftriaxone Sodium 1 gm/ Dextrose 55 ml @ 110 mls/hr Q24H IVPB 10/08/18 21:00 10/15/18 20:59 10/09/18 20:53 Heparin Sodium (Porcine) (Heparin 5000 units/ml) 5,000 units EVERY 12 HOURS SUBQ 10/08/18 09:00 11/07/18 08:59 10/10/18 08:26 Morphine Sulfate (Morphine Sulfate) 2 mg Q4H PRN IVP Moderate Pain (Pain Scale 4-6) 10/07/18 21:45 10/14/18 21:44 Ondansetron HCl (Zofran) 4 mg Q6H PRN IVP Nausea & Vomiting 10/07/18 21:45 11/06/18 21:44 Phenazopyridine HCl (Pyridium) 100 mg DAILY PRN ORAL dysuria 10/07/18 21:45 11/06/18 21:44 Polyethylene Glycol (Miralax) 17 gm DAILYPRN PRN ORAL Constipation 10/07/18 21:45 11/06/18 21:44 Temazepam (Restoril) 15 mg HSPRN PRN ORAL Insomnia 10/07/18 21:45 10/14/18 21:44 Allergies: Coded Allergies: PENICILLIN G (Verified Allergy, Unknown, 03/12/18) Tolerates cabapenem, cephalosporin PENICILLINS (Unverified Allergy, Unknown, 08/23/18) ROS Limited/Unobtainable: No Constitutional: Reports: no symptoms HEENT: Reports: no symptoms Cardiovascular: Reports: no symptoms Respiratory: Reports: no symptoms Gastrointestinal/Abdominal: Reports: no symptoms Genitourinary: Reports: no symptoms Neurologic/Psychiatric: Reports: no symptoms Subjective 48 YO F admitted with. Cover for Int Med-Dr Masters Objective Last Vital Signs Date Time Temp Pulse Resp B/P (MAP) Pulse Ox O2 Delivery O2 Flow Rate FiO2 10/10/18 16:00 98.2 80 19 115/73 (87) 10/10/18 08:15 Nasal Cannula 2.0 10/08/18 16:00 97 Laboratory Tests Test 10/10/18 09:20 White Blood Count 8.0 K/UL (4.8-10.8) Red Blood Count 4.33 M/UL (4.20-5.40) Hemoglobin 9.8 G/DL (12.0-16.0) L Hematocrit 32.5 % (37.0-47.0) L Mean Corpuscular Volume 75 FL (80-99) L Mean Corpuscular Hemoglobin 22.7 PG (27.0-31.0) L Mean Corpuscular Hemoglobin Concent 30.3 G/DL (32.0-36.0) L Red Cell Distribution Width 17.2 % (11.6-14.8) H Platelet Count 343 K/UL (150-450) Mean Platelet Volume 4.7 FL (6.5-10.1) L Neutrophils (%) (Auto) 67.4 % (45.0-75.0) Lymphocytes (%) (Auto) 22.9 % (20.0-45.0) Monocytes (%) (Auto) 4.3 % (1.0-10.0) Eosinophils (%) (Auto) 4.8 % (0.0-3.0) H Basophils (%) (Auto) 0.7 % (0.0-2.0) Sodium Level 141 MMOL/L (136-145) Potassium Level 3.5 MMOL/L (3.5-5.1) Chloride Level 101 MMOL/L (98-107) Carbon Dioxide Level 35 MMOL/L (21-32) H Anion Gap 5 mmol/L (5-15) Blood Urea Nitrogen 14 mg/dL (7-18) Creatinine 0.5 MG/DL (0.55-1.30) L Estimat Glomerular Filtration Rate > 60 mL/min (>60) Glucose Level 128 MG/DL (74-106) H Calcium Level 8.5 MG/DL (8.5-10.1) Total Bilirubin 0.1 MG/DL (0.2-1.0) L Aspartate Amino Transf (AST/SGOT) 6 U/L (15-37) L Alanine Aminotransferase (ALT/SGPT) 8 U/L (12-78) L Alkaline Phosphatase 86 U/L (46-116) Total Protein 7.7 G/DL (6.4-8.2) Albumin 2.5 G/DL (3.4-5.0) L Globulin 5.2 g/dL Albumin/Globulin Ratio 0.5 (1.0-2.7) L Microbiology Date/Time Source Procedure Growth Status 10/08/18 08:25 Blood Blood Culture - Preliminary NO GROWTH AFTER 24 HOURS Resulted 10/08/18 08:10 Blood Blood Culture - Preliminary NO GROWTH AFTER 24 HOURS Resulted 10/08/18 13:52 Nasopharynx Influenza Types A,B Antigen (KRISTINA) - Final Complete 10/08/18 11:55 Indwelling Cath Urine Culture - Preliminary Resulted Intake and Output 10/09/18 10/10/18 19:00 07:00 Intake Total 3012.5 ml Output Total 1800 ml 950 ml Balance 1212.5 ml -950 ml Intake Oral 1500 ml IV Total 1512.5 ml Output Urine Total 1800 ml 950 ml Objective Objective General: No acute distress, awake and responsive. HEENT: NCAT, sclera anicteric, PERRL, EOMI. Neck: Supple, no significant jugular venous distention, Lungs: Fair inspiratory effort, decrease air at bases, no Wheeze or Rales. Heart: Regular rate and rhythm, normal S1/S2, no murmur. Abdomen: soft, nontender, nondistended. Normoactive bowel sounds. / Rectal: suprapubic cath Extremities: No Cyanosis , clubbing or edema. Neuro: A&O x 3, Able to move upper extremitas only, paraplegia. Skin: warm, no rash,t Assessment/Plan Assessment/Plan Assessment/Plan Assessment/Plan 1) Sepsis ICD Codes: A41.9 - Sepsis, unspecified organism SNOMED: 29506508 (2) Pyelonephritis / GNB UTI. ICD Codes: N12 - Tubulo-interstitial nephritis, not specified as acute or chronic SNOMED: 79820595 (3) Spina bifida ICD Codes: Q05.9 - Spina bifida, unspecified SNOMED: 55313554 (4) Neurogenetic bladder s/p Suprapubic catheter ICD Codes: Z93.59 - Other cystostomy status SNOMED: 140128396, 069681194 (5) Paraplegia ICD Codes: G82.20 - Paraplegia, unspecified SNOMED: 51737249 (6) Restrictive lung disease due to kyphoscoliosis ICD Codes: J98.4 - Other disorders of lung; M41.9 - Scoliosis, unspecified SNOMED: 494887915 (7) Decubitus skin ulcer Abx: Rocephin Monitor labs and cultures Heparin SQ Full code. Niraj Teixeira MD Oct 10, 2018 18:49
--- NOTE | 2018-10-10 19:19 | NUR ---
HAND-OFF: Report given to EMMA Joseph.
--- NOTE | 2018-10-10 19:48 | NUR ---
NURSE NOTES: Received patient awake in bed, able to verbalize needs, no c/o pain at this time, no s/s of acute distress. IV patent and asymptomatic. Bed on lowest position, 2 side rails up, call light within reach. Family at the bedside.
[2018-10-10 20:00] VITALS: BP 129/87
[2018-10-10] MEDS: cefTRIAXone 1 GM in D5W 55 ML IVPB SCH (20:23)
[2018-10-11] VITALS: BP 130/87
[2018-10-11 04:00] VITALS: BP 119/76
[2018-10-11 07:32] LABS: BASOPHILS % (AUTO) 0.5 % (0.0-2.0); EOSINOPHILS % (AUTO) 3.7 % (0.0-3.0); HEMATOCRIT 36.2 % (37.0-47.0); HEMOGLOBIN 11.2 G/DL (12.0-16.0); LYMPHOCYTES % (AUTO) 23.3 % (20.0-45.0); MEAN CORPUSCULAR VOLUME 76 FL (80-99); MONOCYTES % (AUTO) 5.2 % (1.0-10.0); NEUTROPHILS % (AUTO) 67.3 % (45.0-75.0); PLATELET COUNT 351 K/UL (150-450); RED BLOOD COUNT 4.78 M/UL (4.20-5.40); RED CELL DISTRIBUTION WIDTH 17.9 % (11.6-14.8); WHITE BLOOD COUNT 8.9 K/UL (4.8-10.8)
[2018-10-11 07:35] VITALS: BP 117/71
[2018-10-11 07:45] LABS: BLOOD UREA NITROGEN 14 mg/dL (7-18); CALCIUM 8.7 MG/DL (8.5-10.1); CARBON DIOXIDE 39 MMOL/L (21-32); CHLORIDE 101 MMOL/L (98-107); CREATININE 0.5 MG/DL (0.55-1.30); POTASSIUM 4.3 MMOL/L (3.5-5.1); SODIUM 139 MMOL/L (136-145)
--- NOTE | 2018-10-11 07:48 | NUR ---
HAND-OFF: Report given to EMMA Burk.
--- NOTE | 2018-10-11 07:53 | NUR ---
NURSE NOTES: pt awake alert, no distress. no sob. call light within reach. bed in lowest position, locked. will monitor.
[2018-10-11] MEDS: Heparin 5000 units/ml inj SUBQ SCH (08:10)
--- NOTE | 2018-10-11 10:01 | NUR ---
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
[2018-10-11 12:00] VITALS: BP 110/81
--- NOTE | 2018-10-11 12:02 | NUR ---
RD ASSESSMENT & RECOMMENDATIONS SEE CARE ACTIVITY FOR COMPLETE ASSESSMENT DAILY ESTIMATED NEEDS: Needs based on wound, paraplegia/ 59kg 28-33kcal/kg kcals/kg 4956-4100 total kcals 1.25-1.5 g protein/kg 73-88 g total protein 25-30 mL/kg 0187-2984 total fluid mLs NUTRITION DIAGNOSIS: (1) Increased kcal/pro/micronutrients needs R/T wound healing as evidenced by pt is paraplegic, h/o spina bifida, adm w/ resolving full thickness pressure wound @ sacral. CURRENT DIET:REGULAR PO DIET RECOMMENDATIONS: REGULAR/ texture as tolerated or per ACOUSTICAL MATERIAL WORKER ADDITIONAL RECOMMENDATIONS: 1) Wound healing: GREGG BID + MVI x 1, Vit C 500mg QD 2) Txr pt to bed with bedscale, obtain calibrated bedscale wt 3) Monitor for continued good PO intake . . . .
[2018-10-11] MEDS ORDERED: CIPRO500 MG/51 PO (14:18)
--- NOTE | 2018-10-11 14:19 | Pulmonology Progress Note ---
Assessment/Plan Problems: (1) Sepsis (2) Pyelonephritis (3) Spina bifida (4) Suprapubic catheter (5) Paraplegia (6) Restrictive lung disease due to kyphoscoliosis Assessment/Plan doing better afebrile check cultures continue abx symptomatic treatment dvrt prophylaxis supra-pubic catheter care check electrolytes dc in 1-2 days cultures are available now, will dc home with po Cipro Subjective ROS Limited/Unobtainable: No Constitutional: Reports: no symptoms HEENT: Repors: no symptoms Respiratory: Reports: no symptoms Allergies: Coded Allergies: PENICILLIN G (Verified Allergy, Unknown, 03/12/18) Tolerates cabapenem, cephalosporin PENICILLINS (Unverified Allergy, Unknown, 08/23/18) Objective Last 24 Hour Vital Signs Date Time Temp Pulse Resp B/P (MAP) Pulse Ox O2 Delivery O2 Flow Rate FiO2 10/11/18 12:00 98.5 76 18 110/81 (91) 99 10/11/18 07:47 Nasal Cannula 2.0 10/11/18 07:35 98.5 94 18 117/71 (86) 99 10/11/18 04:00 98.5 92 18 119/76 (90) 99 10/11/18 00:00 97.9 79 18 130/87 (101) 94 10/10/18 21:54 Nasal Cannula 2.0 10/10/18 20:00 98.4 91 18 129/87 (101) 94 10/10/18 16:00 98.2 80 19 115/73 (87) Intake and Output 10/10/18 10/11/18 19:00 07:00 Intake Total 900 ml Output Total 1000 ml 1300 ml Balance -100 ml -1300 ml Intake Oral 900 ml Output Urine Total 1000 ml 1300 ml Objective General Appearance: WD/WN Respiratory/Chest: chest wall non-tender, lungs clear Cardiovascular: normal peripheral pulses, regular rhythm Abdomen: normal bowel sounds Genitourinary: normal external genitalia Skin: no rash Laboratory Tests 10/11/18 06:47: White Blood Count 8.9, Red Blood Count 4.78, Hemoglobin 11.2L, Hematocrit 36.2L , Mean Corpuscular Volume 76L, Mean Corpuscular Hemoglobin 23.5L, Mean Corpuscular Hemoglobin Concent 31.0L, Red Cell Distribution Width 17.9H, Platelet Count 351, Mean Platelet Volume 5.3L, Neutrophils (%) (Auto) 67.3, Lymphocytes (%) (Auto) 23.3, Monocytes (%) (Auto) 5.2, Eosinophils (%) (Auto) 3.7H, Basophils (%) (Auto) 0.5, Sodium Level 139, Potassium Level 4.3, Chloride Level 101, Carbon Dioxide Level 39H, Blood Urea Nitrogen 14, Creatinine 0.5L, Estimat Glomerular Filtration Rate > 60, Glucose Level 104, Calcium Level 8.7 Current Medications Medications (Trade) Dose Ordered Sig/Sandeep Route PRN Reason Start Time Stop Time Status Last Admin Dose Admin Acetaminophen (Tylenol) 650 mg Q4H PRN ORAL fever 10/07/18 21:45 11/06/18 21:44 10/08/18 20:55 Albuterol/ Ipratropium (Albuterol/ Ipratropium) 3 ml Q4H PRN HHN Shortness of Breath 10/07/18 21:45 10/12/18 21:44 Ceftriaxone Sodium 1 gm/ Dextrose 55 ml @ 110 mls/hr Q24H IVPB 10/08/18 21:00 10/15/18 20:59 10/10/18 20:23 Heparin Sodium (Porcine) (Heparin 5000 units/ml) 5,000 units EVERY 12 HOURS SUBQ 10/08/18 09:00 11/07/18 08:59 10/11/18 08:10 Morphine Sulfate (Morphine Sulfate) 2 mg Q4H PRN IVP Moderate Pain (Pain Scale 4-6) 10/07/18 21:45 10/14/18 21:44 Ondansetron HCl (Zofran) 4 mg Q6H PRN IVP Nausea & Vomiting 10/07/18 21:45 11/06/18 21:44 Phenazopyridine HCl (Pyridium) 100 mg DAILY PRN ORAL dysuria 10/07/18 21:45 11/06/18 21:44 Polyethylene Glycol (Miralax) 17 gm DAILYPRN PRN ORAL Constipation 10/07/18 21:45 11/06/18 21:44 Temazepam (Restoril) 15 mg HSPRN PRN ORAL Insomnia 10/07/18 21:45 10/14/18 21:44 Chyna Pryor MD Oct 11, 2018 14:19
--- NOTE | 2018-10-11 14:32 | NUR ---
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
--- NOTE | 2018-10-11 15:12 | Surgery Progress Note ---
Surgery Progress Note Subjective Additional Comments no acute events. doing well. comfortable. labs improved. on abx Objective Last 24 Hour Vital Signs Date Time Temp Pulse Resp B/P (MAP) Pulse Ox O2 Delivery O2 Flow Rate FiO2 10/11/18 12:00 98.5 76 18 110/81 (91) 99 10/11/18 07:47 Nasal Cannula 2.0 10/11/18 07:35 98.5 94 18 117/71 (86) 99 10/11/18 04:00 98.5 92 18 119/76 (90) 99 10/11/18 00:00 97.9 79 18 130/87 (101) 94 10/10/18 21:54 Nasal Cannula 2.0 10/10/18 20:00 98.4 91 18 129/87 (101) 94 10/10/18 16:00 98.2 80 19 115/73 (87) I&O Intake and Output 10/10/18 10/11/18 19:00 07:00 Intake Total 900 ml Output Total 1000 ml 1300 ml Balance -100 ml -1300 ml Intake Oral 900 ml Output Urine Total 1000 ml 1300 ml Dressing: other Wound: other Drains: other Cardiovascular: RSR Respiratory: clear Abdomen: soft, present bowel sounds, non-distended Extremities: other Laboratory Tests Test 10/11/18 06:47 White Blood Count 8.9 K/UL (4.8-10.8) Red Blood Count 4.78 M/UL (4.20-5.40) Hemoglobin 11.2 G/DL (12.0-16.0) L Hematocrit 36.2 % (37.0-47.0) L Mean Corpuscular Volume 76 FL (80-99) L Mean Corpuscular Hemoglobin 23.5 PG (27.0-31.0) L Mean Corpuscular Hemoglobin Concent 31.0 G/DL (32.0-36.0) L Red Cell Distribution Width 17.9 % (11.6-14.8) H Platelet Count 351 K/UL (150-450) Mean Platelet Volume 5.3 FL (6.5-10.1) L Neutrophils (%) (Auto) 67.3 % (45.0-75.0) Lymphocytes (%) (Auto) 23.3 % (20.0-45.0) Monocytes (%) (Auto) 5.2 % (1.0-10.0) Eosinophils (%) (Auto) 3.7 % (0.0-3.0) H Basophils (%) (Auto) 0.5 % (0.0-2.0) Sodium Level 139 MMOL/L (136-145) Potassium Level 4.3 MMOL/L (3.5-5.1) Chloride Level 101 MMOL/L (98-107) Carbon Dioxide Level 39 MMOL/L (21-32) H Blood Urea Nitrogen 14 mg/dL (7-18) Creatinine 0.5 MG/DL (0.55-1.30) L Estimat Glomerular Filtration Rate > 60 mL/min (>60) Glucose Level 104 MG/DL (74-106) Calcium Level 8.7 MG/DL (8.5-10.1) Plan Problems: (1) Decubitus skin ulcer Assessment & Plan: Patient presented on admission with resolving 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 Historical scars noted to lumbar area. Base of wound at sacrum with scattered slough, Bone is palpable , otherwise pink. (+) maceration along borders. NO odor noted. Small amt serous exudate.(L)2.1cm x (W)1.4cm x (D)0.7cm. Hyperpigmentation noted periwound. Shearing with loose dry skin noted to R buttocks /R ischial area Both heels are soft with dry peeling skin. Both heels are blanchable. Hypoalbuminemia noted Malnutrition Tx.Plan: Cleanse sacral wound with Saline.Apply Therahoney. Apply Triad periwound. Cover with Optifoam drsg Daily and prn. Apply Triad Paste to L Buttocks/L Ischial area with each perineal care. Apply Cavilon Skin Barrier to both heels. Off-load heels with Pillow. Reposition at least every 2hours or as tolerated. APM/JOSE mattress. Nutritional optimization for wound healing Nutrition consult Labs noted (2) Suprapubic catheter Assessment & Plan: noted prior hx uti associated currently with likely uti / infectious etiology micro with uti on IV abx as per ID cont with abx and strict catheter precautions. Saad Neves Oct 11, 2018 15:12
--- NOTE | 2018-10-11 15:43 | Infectious Diseases Prog Note ---
Assessment/Plan Assessment/Plan Abx: IV Vancomycin 10/07- Ceftriaxone x1 10/07 Assessment: Probable UTI -u.a wbc 5-10, nit +, leuk +3; ucx >100k P. mirabilis (R amp, bactrim; otherwise S); >100k PsA (I cefepime; R ceftazidime), >100k E. fecalis (S Amp, vanco, nitrofurantoin) Afebrile Leukocytosis, resolved -CXR: No acute findings appreciated. No significant change -influenza sc neg Sacral decub ulcer- no signs of infection -hx of wound cx 02/2018 MRSA, P.mirabilis: colonizers Hx of UTI -MRSA 02/2018 -S. 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 10/09/18 SP IV Vancomycin #3 03/21/18 SP Keflex #3 03/19 SP Cefepime #4 03/14/18 SP IV Vancomcyin #3 -04/07/17 SP Bactrim #14 -/ s/p IV vancomycin D#5 -9/ s/p IV cefepime 1gm q12hr D#3 -02/2017 SP Ertapenem #14 -f.u cx -Monitor CBC/CMP, temperatures -suprapubic catheter -wound care per hospital protocol Thank you for this consultation. Will continue to follow along with you. Subjective Allergies: Coded Allergies: PENICILLIN G (Verified Allergy, Unknown, 03/12/18) Tolerates cabapenem, cephalosporin PENICILLINS (Unverified Allergy, Unknown, 08/23/18) Subjective afebrile at 2l NC Objective Vital Signs Last 24 Hour Vital Signs Date Time Temp Pulse Resp B/P (MAP) Pulse Ox O2 Delivery O2 Flow Rate FiO2 10/11/18 12:00 98.5 76 18 110/81 (91) 99 10/11/18 07:47 Nasal Cannula 2.0 10/11/18 07:35 98.5 94 18 117/71 (86) 99 10/11/18 04:00 98.5 92 18 119/76 (90) 99 10/11/18 00:00 97.9 79 18 130/87 (101) 94 10/10/18 21:54 Nasal Cannula 2.0 10/10/18 20:00 98.4 91 18 129/87 (101) 94 10/10/18 16:00 98.2 80 19 115/73 (87) Height (Feet): 5 Height (Inches): 2.00 Weight (Pounds): 130 Objective General Appearance: no apparent distress, alert HEENT normocephalic, atraumatic hearing grossly normal, normal pharynx, no angioedema Respiratory: chest non-tender, lungs clear, normal breath sounds, no respiratory distress, no retraction, no accessory muscle use, speaking full sentences Cardiovascular: regular rate, rhythm Gastrointestinal: normal bowel sounds, non tender, soft, non-distended, no guarding, no rebound Musculoskeletal: other - At baseline, kyphoscoliosis, contractures Neurologic: alert, other - At baseline Skin: warm/dry, well hydrated, other - See RN skin exam Laboratory Tests Test 10/11/18 06:47 White Blood Count 8.9 K/UL (4.8-10.8) Red Blood Count 4.78 M/UL (4.20-5.40) Hemoglobin 11.2 G/DL (12.0-16.0) L Hematocrit 36.2 % (37.0-47.0) L Mean Corpuscular Volume 76 FL (80-99) L Mean Corpuscular Hemoglobin 23.5 PG (27.0-31.0) L Mean Corpuscular Hemoglobin Concent 31.0 G/DL (32.0-36.0) L Red Cell Distribution Width 17.9 % (11.6-14.8) H Platelet Count 351 K/UL (150-450) Mean Platelet Volume 5.3 FL (6.5-10.1) L Neutrophils (%) (Auto) 67.3 % (45.0-75.0) Lymphocytes (%) (Auto) 23.3 % (20.0-45.0) Monocytes (%) (Auto) 5.2 % (1.0-10.0) Eosinophils (%) (Auto) 3.7 % (0.0-3.0) H Basophils (%) (Auto) 0.5 % (0.0-2.0) Sodium Level 139 MMOL/L (136-145) Potassium Level 4.3 MMOL/L (3.5-5.1) Chloride Level 101 MMOL/L (98-107) Carbon Dioxide Level 39 MMOL/L (21-32) H Blood Urea Nitrogen 14 mg/dL (7-18) Creatinine 0.5 MG/DL (0.55-1.30) L Estimat Glomerular Filtration Rate > 60 mL/min (>60) Glucose Level 104 MG/DL (74-106) Calcium Level 8.7 MG/DL (8.5-10.1) Current Medications Medications (Trade) Dose Ordered Sig/Sandeep Route PRN Reason Start Time Stop Time Status Last Admin Dose Admin Acetaminophen (Tylenol) 650 mg Q4H PRN ORAL fever 10/07/18 21:45 11/06/18 21:44 10/08/18 20:55 Albuterol/ Ipratropium (Albuterol/ Ipratropium) 3 ml Q4H PRN HHN Shortness of Breath 10/07/18 21:45 10/12/18 21:44 Ceftriaxone Sodium 1 gm/ Dextrose 55 ml @ 110 mls/hr Q24H IVPB 10/08/18 21:00 10/15/18 20:59 10/10/18 20:23 Heparin Sodium (Porcine) (Heparin 5000 units/ml) 5,000 units EVERY 12 HOURS SUBQ 10/08/18 09:00 11/07/18 08:59 10/11/18 08:10 Morphine Sulfate (Morphine Sulfate) 2 mg Q4H PRN IVP Moderate Pain (Pain Scale 4-6) 10/07/18 21:45 10/14/18 21:44 Ondansetron HCl (Zofran) 4 mg Q6H PRN IVP Nausea & Vomiting 10/07/18 21:45 11/06/18 21:44 Phenazopyridine HCl (Pyridium) 100 mg DAILY PRN ORAL dysuria 10/07/18 21:45 11/06/18 21:44 Polyethylene Glycol (Miralax) 17 gm DAILYPRN PRN ORAL Constipation 10/07/18 21:45 11/06/18 21:44 Temazepam (Restoril) 15 mg HSPRN PRN ORAL Insomnia 10/07/18 21:45 10/14/18 21:44 Joaquina Hill M.D. Oct 11, 2018 15:43
--- NOTE | 2018-10-11 15:53 | Internal Med Progress Note ---
Subjective Physician Name GuerreroWil lozano Attending Physician Chyna Pryor MD Current Medications Medications (Trade) Dose Ordered Sig/Sandeep Route PRN Reason Start Time Stop Time Status Last Admin Dose Admin Acetaminophen (Tylenol) 650 mg Q4H PRN ORAL fever 10/07/18 21:45 11/06/18 21:44 10/08/18 20:55 Albuterol/ Ipratropium (Albuterol/ Ipratropium) 3 ml Q4H PRN HHN Shortness of Breath 10/07/18 21:45 10/12/18 21:44 Ciprofloxacin (Cipro 500mg tab) 500 mg EVERY 12 HOURS ORAL 10/11/18 15:45 10/18/18 15:44 UNV Heparin Sodium (Porcine) (Heparin 5000 units/ml) 5,000 units EVERY 12 HOURS SUBQ 10/08/18 09:00 11/07/18 08:59 10/11/18 08:10 Morphine Sulfate (Morphine Sulfate) 2 mg Q4H PRN IVP Moderate Pain (Pain Scale 4-6) 10/07/18 21:45 10/14/18 21:44 Nitrofurantoin (Macrobid) 100 mg EVERY 12 HOURS ORAL 10/11/18 15:45 11/10/18 15:44 UNV Ondansetron HCl (Zofran) 4 mg Q6H PRN IVP Nausea & Vomiting 10/07/18 21:45 11/06/18 21:44 Phenazopyridine HCl (Pyridium) 100 mg DAILY PRN ORAL dysuria 10/07/18 21:45 11/06/18 21:44 Polyethylene Glycol (Miralax) 17 gm DAILYPRN PRN ORAL Constipation 10/07/18 21:45 11/06/18 21:44 Temazepam (Restoril) 15 mg HSPRN PRN ORAL Insomnia 10/07/18 21:45 10/14/18 21:44 Allergies: Coded Allergies: PENICILLIN G (Verified Allergy, Unknown, 03/12/18) Tolerates cabapenem, cephalosporin PENICILLINS (Unverified Allergy, Unknown, 08/23/18) Subjective awake, responsive, mentally challenged, NAD Objective Last Vital Signs Date Time Temp Pulse Resp B/P (MAP) Pulse Ox O2 Delivery O2 Flow Rate FiO2 10/11/18 12:00 98.5 76 18 110/81 (91) 99 10/11/18 07:47 Nasal Cannula 2.0 Laboratory Tests Test 10/11/18 06:47 White Blood Count 8.9 K/UL (4.8-10.8) Red Blood Count 4.78 M/UL (4.20-5.40) Hemoglobin 11.2 G/DL (12.0-16.0) L Hematocrit 36.2 % (37.0-47.0) L Mean Corpuscular Volume 76 FL (80-99) L Mean Corpuscular Hemoglobin 23.5 PG (27.0-31.0) L Mean Corpuscular Hemoglobin Concent 31.0 G/DL (32.0-36.0) L Red Cell Distribution Width 17.9 % (11.6-14.8) H Platelet Count 351 K/UL (150-450) Mean Platelet Volume 5.3 FL (6.5-10.1) L Neutrophils (%) (Auto) 67.3 % (45.0-75.0) Lymphocytes (%) (Auto) 23.3 % (20.0-45.0) Monocytes (%) (Auto) 5.2 % (1.0-10.0) Eosinophils (%) (Auto) 3.7 % (0.0-3.0) H Basophils (%) (Auto) 0.5 % (0.0-2.0) Sodium Level 139 MMOL/L (136-145) Potassium Level 4.3 MMOL/L (3.5-5.1) Chloride Level 101 MMOL/L (98-107) Carbon Dioxide Level 39 MMOL/L (21-32) H Blood Urea Nitrogen 14 mg/dL (7-18) Creatinine 0.5 MG/DL (0.55-1.30) L Estimat Glomerular Filtration Rate > 60 mL/min (>60) Glucose Level 104 MG/DL (74-106) Calcium Level 8.7 MG/DL (8.5-10.1) Intake and Output 10/10/18 10/11/18 19:00 07:00 Intake Total 900 ml Output Total 1000 ml 1300 ml Balance -100 ml -1300 ml Intake Oral 900 ml Output Urine Total 1000 ml 1300 ml Objective General: No acute distress, awake and responsive. HEENT: NCAT, sclera anicteric, PERRL, EOMI. Neck: Supple, no significant jugular venous distention, Lungs: Fair inspiratory effort, decrease air at bases, no Wheeze or Rales. Heart: Regular rate and rhythm, normal S1/S2, no murmur. Abdomen: soft, nontender, nondistended. Normoactive bowel sounds. / Rectal: suprapubic cath Extremities: No Cyanosis , clubbing or edema. Neuro: A&O x 3, Able to move upper extremitas only, paraplegia. Skin: warm, no rash,t Assessment/Plan Assessment/Plan 1) Sepsis ICD Codes: A41.9 - Sepsis, unspecified organism SNOMED: 17970064 (2) Pyelonephritis PSEUDOMONAS AERUGINOSA / ENTEROCOCCUS FAECALIS UTI. ICD Codes: N12 - Tubulo-interstitial nephritis, not specified as acute or chronic SNOMED: 21369478 (3) Spina bifida ICD Codes: Q05.9 - Spina bifida, unspecified SNOMED: 84151846 (4) Neurogenetic bladder s/p Suprapubic catheter ICD Codes: Z93.59 - Other cystostomy status SNOMED: 722856297, 925912087 (5) Paraplegia ICD Codes: G82.20 - Paraplegia, unspecified SNOMED: 61047673 (6) Restrictive lung disease due to kyphoscoliosis ICD Codes: J98.4 - Other disorders of lung; M41.9 - Scoliosis, unspecified SNOMED: 812394749 (7) Decubitus skin ulcer Abx: Ciprofloxacin, Macrobid Monitor labs and cultures Heparin SQ Full code. Wil Masters MD Oct 11, 2018 15:53
[2018-10-11 16:19] VITALS: BP 130/81
--- NOTE | 2018-10-11 16:42 | NUR ---
NURSE NOTES: pt left in stable condition, iv removed from left foot, no bleeding. abx sent with the pt.
[2018-10-11] MEDS ORDERED: Ciprofloxacin 500mg tab ORAL SCH (17:00)
[2018-10-12] MEDS ORDERED: Ciprofloxacin 500mg tab ORAL SCH (09:00)
--- NOTE | 2018-10-14 12:43 | Discharge Summary ---
Discharge Summary Discharge Summary _ DATE OF ADMISSION: 10/07/2018 DATE OF DISCHARGE: 10/11/2018 DISCHARGED BY: Dr. Masters REASON FOR ADMISSION: 48 years old female with past medical history of spina bifida , MECHANICAL ARTIST, shunt suprapubic catheter, developmental delay , nonambulatory at baseline , was brought for evaluation by her brother after he noted cloudy urine. He also reported that patient had cough and congestion for the past few days. No documented fever or chills. No reported chest pain or shortness of breath. Upon evaluation vital signs were stable. Laboratory workup revealed leukocytosis WBC 14.6, hemoglobin 11.2, hematocrit 36.4. Urinalysis revealed evidence of UTI. Urine test was negative. Stable electrolytes and renal parameters. Stable LFT. EKG revealed normal sinus rhythm. Chest X-ray revealed no acute findings. Patient was admitted for pyelonephritis. CONSULTANTS: pulmonary Dr. Pryor ID specialist Dr. Buck surgery Dr. Neves [facility] COURSE: Patient admitted to medical surgical floor. Patient started on IV fluids and empiric antibiotics. Infectious disease specialist closely followed. Urine culture revealed Proteus, Pseudomonas aeruginosa and Enterococci. Blood cultures were negative. Rapid influenza screen test was negative. Repeated urine culture revealed Pseudomonas and Enterococci. Patient remained afebrile. Leukocytosis resolved. Pyridium provided as needed for comfort. Sacral decubitus ulcer revealed no signs of infection. Patient was on IV antibiotic , while in the hospital , t which changed to oral ciprofloxacin and nitrofurantoin for additional 5 days based on urine culture to complete the course at home. Wound care for sacral decubitus ulcer stage IV , present on admission , provided as per general surgeon recommendation. Continue wound care at home. Bowel regimen instituted. Supportive care provided. Antiemetic were on board as needed. Pain management was addressed. DVT prophylaxis provided. Suprapubic catheter care provided. Supplemental oxygen provided as needed to keep pulse oximetry above 92%. Pulse oximetry was stable on 2 L of oxygen via nasal cannula. Chest x-ray revealed no acute cardiopulmonary pathology. Patient clinically stabilized and was ready for discharge home to complete the course of antibiotic FINAL DIAGNOSES: Sepsis Pyelonephritis Pseudomonas aeruginosa, Enterococcus faecalis UTI Spina bifida Neurogenic bladder , status post suprapubic catheter Paraplegia Restrictive lung disease due to kyphoscoliosis Sacral decubitus ulcer stage IV, present on admission MECHANICAL ARTIST shunt DISCHARGE MEDICATIONS: See Medication Reconciliation list. DISCHARGE INSTRUCTIONS: Patient was discharged home . Follow up with primary care provider in one week. I have been assigned to dictate discharge summary for this account. I was not involved in the patient's management. Trinh Muñiz NP Oct 14, 2018 12:43
== END 2018-10-11 16:24 | disposition home or self-care (01) | DRG 871 ==
LOC: EMR 17:00 → EDBEDREQ 19:06 → 4E 19:21 → EDBEDREQ 20:52 → 4E 10-08 00:58
DX: A41.9 Sepsis, unspecified organism (principal); L89.154 Pressure ulcer of sacral region, stage 4; N39.0 Urinary tract infection, site not specified; G82.20 Paraplegia, unspecified; N12 Tubulo-interstitial nephritis, not specified as acute or chronic; F79 Unspecified intellectual disabilities; Q05.9 Spina bifida, unspecified; M41.9 Scoliosis, unspecified; Z43.5 Encounter for attention to cystostomy; J98.4 Other disorders of lung; Z98.2 Presence of cerebrospinal fluid drainage device; B95.2 Enterococcus as the cause of diseases classified elsewhere; B96.5 Pseudomonas (aeruginosa) (mallei) (pseudomallei) as the cause of diseases classified elsewhere; N31.9 Neuromuscular dysfunction of bladder, unspecified; Z86.14 Personal history of Methicillin resistant Staphylococcus aureus infection; Z88.0 Allergy status to penicillin
CPT/HCPCS: 36415; 71045; 80048; 80053; 80202; 81001; 81003; 81025; 82962; 83690; 85025; 86710; 87040; 87086; 87181; 93005; 96361; 96365; 99285

== ENCOUNTER 2018-12-02 18:09 | Inpatient (IN) | payer MEDICARE, MEDICAID ==
[~2018-12-02] VITALS: Ht 160 cm; Wt 63.0 kg
[~2018-12-02 18:09] MED LIST changes: +CIPRO500 MG/51 PO
[2018-12-02 19:20] VITALS: BP 108/67
--- NOTE | 2018-12-02 19:30 | NUR ---
ED Nurse Note: received report from RN Lexie and assumed care. pt's brother at the bedside, pt brother brought pt in because pt was acting differently, decrease in oral intake and per brother statement, pt usually has uti when changes in condition. pt AA&ox1, icelandic speaking, resp even and unlabored on RA, noted suprapubic cath x 1, sediments noted in urine, yellow and cloudy. vss. will cont monitor.
--- NOTE | 2018-12-02 19:31 | NUR ---
HAND-OFF: Report given to Carrie CARTER. patient is stable in bed, brother at bedside. attempted to start an IV, unable to. endorsed to Carrie CARTER
--- NOTE | 2018-12-02 19:35 | NUR ---
ED Nurse Note: pt cleaned and changed, noted pressure wound on back and sacral area, picture taken.
--- NOTE | 2018-12-02 20:00 | NUR ---
ED Nurse Note: IV 20G INSERTED BY ERMD LEFT EJ, PT TOLERATED WELL, DRESSING APPLIED.
[2018-12-02 20:20] VITALS: BP 104/64
[2018-12-02 20:24] LABS: APPEARANCE,URINE SLIGHTLY CLOUDY; BILIRUBIN, URINE NEGATIVE (NEGATIVE); COLOR,URINE PALE YELLOW; GLUCOSE, URINE (UA) NEGATIVE (NEGATIVE); KETONES,URINE NEGATIVE (NEGATIVE); LEUKOCYTE ESTERASE ,URINE 3+ (NEGATIVE); NITRITE,URINE NEGATIVE (NEGATIVE); PH,URINE 8 (4.5-8.0); PROTEIN,URINE 3+ (NEGATIVE); UROBILINOGEN,URINE NORMAL MG/DL (0.0-1.0)
[2018-12-02 20:26] LABS: ANION GAP 7 mmol/L (5-15); BLOOD UREA NITROGEN 21 mg/dL (7-18); CALCIUM 9.2 MG/DL (8.5-10.1); CARBON DIOXIDE 34 MMOL/L (21-32); CHLORIDE 102 MMOL/L (98-107); CREATININE 0.5 MG/DL (0.55-1.30); SODIUM 143 MMOL/L (136-145)
[2018-12-02 20:31] LABS: BASOPHILS % (AUTO) 0.9 % (0.0-2.0); EOSINOPHILS % (AUTO) 2.3 % (0.0-3.0); HEMATOCRIT 38.4 % (37.0-47.0); HEMOGLOBIN 11.8 G/DL (12.0-16.0); LYMPHOCYTES % (AUTO) 20.7 % (20.0-45.0); MEAN CORPUSCULAR VOLUME 71 FL (80-99); MONOCYTES % (AUTO) 5.3 % (1.0-10.0); NEUTROPHILS % (AUTO) 70.9 % (45.0-75.0); PLATELET COUNT 336 K/UL (150-450); RED BLOOD COUNT 5.43 M/UL (4.20-5.40); RED CELL DISTRIBUTION WIDTH 16.2 % (11.6-14.8); WHITE BLOOD COUNT 15.3 K/UL (4.8-10.8)
[2018-12-02 20:38] LABS: ALANINE AMINOTRANSFERASE 6 U/L (12-78); ALBUMIN 3.1 G/DL (3.4-5.0); ALBUMIN/GLOBULIN RATIO 0.5 (1.0-2.7); ALKALINE PHOSPHATASE 94 U/L (46-116); ASPARTATE AMINO TRANSFERASE 11 U/L (15-37); BILIRUBIN,TOTAL 0.2 MG/DL (0.2-1.0)
[2018-12-02] MEDS ORDERED: Vancomycin 1 GM in NS 275 ML IV ONE (21:00)
--- NOTE | 2018-12-02 21:30 | NUR ---
ED Nurse Note: NOTED PULLED OUT EJ NEXT TO PT, DRESSING APPLIED, 24G IV STARTED ON RIGHT HAND. PT TOLERATED WELL.
[2018-12-02] MEDS ORDERED: Acetaminophen 650 MG SUPP RECTAL ONE ×2 (21:41→22:00)
--- NOTE | 2018-12-02 21:45 | NUR ---
ED Nurse Note: pt had bm x1, formed brown stool, pt cleaned and changed
--- NOTE | 2018-12-02 21:47 | Emergency Room Report ---
History of Present Illness General Chief Complaint: Female Urogenital Problems Source: Patient Present Illness HPI 48-year-old female presents ED for evaluation. Family at bedside states that patient is wheelchair bound, has spina bifida history. Has chronic Huber catheter. Family noted cloudy sediment in the Huber catheter for the last few days. Patient also noted to be increasingly irritable to the family. Family states that whenever this happened she has an infection. No reported fevers or chills. No reported chest pain or shortness of breath. No other aggravating relieving factors. No other associated symptoms Allergies: Coded Allergies: PENICILLIN G (Verified Allergy, Unknown, 12/02/18) Tolerates cabapenem, cephalosporin PENICILLINS (Unverified Allergy, Unknown, 12/02/18) Patient History Past Medical History: DM, HTN, other - spina bifida Past Surgical History: none Pertinent Family History: none Social History: Denies: smoking, alcohol use, drug use Now: No Immunizations: UTD Reviewed Nursing Documentation: PMH: Agreed; PSxH: Agreed Nursing Documentation-PMH Past Medical History: No History, Except For Hx Hypertension: Yes Hx Diabetes: Yes Hx Cancer: No - spina bifida Hx Gastrointestinal Problems: No Hx Neurological Problems: Yes - Spina Bifida (Gustavo in place) Hx Cerebrovascular Accident: No Hx Transient Ischemic Attacks: No Hx Dementia: No Hx Alzheimer's Disease: No Hx Parkinson's Disease: No Hx Meningitis: No Hx Encephalitis: No Hx Seizures: No Hx Epilepsy: No Hx Multiple Sclerosis: No Hx Cerebral Palsy: No Hx Amyotrophic Lat Sclerosis: No Hx Guillian-Chandler Syndrome: No Hx Paralysis: Yes - Below the waste Hx Peripheral Neuropathy: No Hx Spinal Cord Injury: Yes - Spina Bifida Hx Head Trauma: No Hx Traumatic Brain Injury: No Hx Memory Loss: No Hx Concentration Difficulty: No Hx Speech Problem: Yes Hx Tremors: No Hx Vertigo: No Hx Headaches: No Hx Aphasia: No Hx Dysphasia: No Hx Numbness: No Hx Weakness: No Hx Fatigue: No Hx Neurologic Surgery: No Hx Brain Shunt: Yes Review of Systems All Other Systems: negative except mentioned in HPI Physical Exam Vital Signs Date Time Temp Pulse Resp B/P (MAP) Pulse Ox O2 Delivery O2 Flow Rate FiO2 12/02/18 18:16 98.4 96 18 92 Room Air 12/02/18 19:20 108/67 Sp02 EP Interpretation: reviewed, normal General Appearance: no apparent distress, alert, GCS 15, non-toxic Head: normocephalic, atraumatic Eyes: bilateral eye normal inspection, bilateral eye PERRL ENT: hearing grossly normal, normal pharynx, no angioedema, normal voice Neck: full range of motion, supple/symm/no masses Respiratory: chest non-tender, lungs clear, normal breath sounds, speaking full sentences Cardiovascular #1: regular rate, rhythm, no edema Cardiovascular #2: 2+ carotid (R), 2+ carotid (L), 2+ radial (R), 2+ radial (L) , 2+ dorsalis pedis (R), 2+ dorsalis pedis (L) Gastrointestinal: normal bowel sounds, non tender, soft, non-distended, no guarding, no rebound Rectal: deferred Genitourinary: normal inspection, no CVA tenderness Musculoskeletal: back normal Neurologic: alert, oriented x3, responsive, motor strength/tone normal, sensory intact, speech normal Psychiatric: judgement/insight normal, memory normal, mood/affect normal, no suicidal/homicidal ideation Reflexes: 3+ bicep (R), 3+ bicep (L), 3+ tricep (R), 3+ tricep (L), 3+ knee (R) , 3+ knee (L) Skin: normal color, no rash, warm/dry, well hydrated Lymphatic: no adenopathy Medical Decision Making Diagnostic Impression: Primary Impression: Spina bifida Qualified Codes: Q05.9 - Spina bifida, unspecified Additional Impression: UTI (urinary tract infection) Qualified Codes: N39.0 - Urinary tract infection, site not specified ER Course Hospital Course 48 yo F with cloudy sediment in catheter. h/o UTI. increaed irritability Differential diagnoses include: Pneumonia, UTI, sepsis, dehydration Clinical course Patient placed on stretcher. 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 After initial history and physical, I ordered labs, IV fluids, EKG, chest x-ray, blood cultures, UA. Labs - electrolytes ok, no leukocytosis, hb/hct stable, UA + bacteria, lactic ok CXR - no acute process Patient has difficult IV access. Peripheral EJ line placed broad spectrum Abx given. IVFs given. Case discussed with Dr Pryor and they agreed to admit patient to their service for further care and support I feel this is a highly complex case requiring extensive working including EKG/ Rhythm strip, Xray/CT/US, Blood/urine lab work, repeat exams while in ED, and administration of strong opiates/narcotics for pain control, admission to hospital or close patient follow up. Diagnosis - UTI, spina bifida Patient admitted to floor in serious condition Labs Test 12/02/18 19:40 White Blood Count 15.3 K/UL (4.8-10.8) Red Blood Count 5.43 M/UL (4.20-5.40) Hemoglobin 11.8 G/DL (12.0-16.0) Hematocrit 38.4 % (37.0-47.0) Mean Corpuscular Volume 71 FL (80-99) Mean Corpuscular Hemoglobin 21.7 PG (27.0-31.0) Mean Corpuscular Hemoglobin Concent 30.7 G/DL (32.0-36.0) Red Cell Distribution Width 16.2 % (11.6-14.8) Platelet Count 336 K/UL (150-450) Mean Platelet Volume 5.0 FL (6.5-10.1) Neutrophils (%) (Auto) 70.9 % (45.0-75.0) Lymphocytes (%) (Auto) 20.7 % (20.0-45.0) Monocytes (%) (Auto) 5.3 % (1.0-10.0) Eosinophils (%) (Auto) 2.3 % (0.0-3.0) Basophils (%) (Auto) 0.9 % (0.0-2.0) Urine Color Pale yellow Urine Appearance Slightly cloudy Urine pH 8 (4.5-8.0) Urine Specific Perry 1.010 (1.005-1.035) Urine Protein 3+ (NEGATIVE) Urine Glucose (UA) Negative (NEGATIVE) Urine Ketones Negative (NEGATIVE) Urine Blood 4+ (NEGATIVE) Urine Nitrite Negative (NEGATIVE) Urine Bilirubin Negative (NEGATIVE) Urine Urobilinogen Normal MG/DL (0.0-1.0) Urine Leukocyte Esterase 3+ (NEGATIVE) Urine RBC Tntc /HPF (0 - 2) Urine WBC Tntc /HPF (0 - 2) Urine Squamous Epithelial Cells Few /LPF (NONE/OCC) Urine Bacteria Many /HPF (NONE) Sodium Level 143 MMOL/L (136-145) Potassium Level 4.0 MMOL/L (3.5-5.1) Chloride Level 102 MMOL/L (98-107) Carbon Dioxide Level 34 MMOL/L (21-32) Anion Gap 7 mmol/L (5-15) Blood Urea Nitrogen 21 mg/dL (7-18) Creatinine 0.5 MG/DL (0.55-1.30) Estimat Glomerular Filtration Rate > 60 mL/min (>60) Glucose Level 110 MG/DL (74-106) Lactic Acid Level 1.60 mmol/L (0.4-2.0) Calcium Level 9.2 MG/DL (8.5-10.1) Total Bilirubin 0.2 MG/DL (0.2-1.0) Aspartate Amino Transf (AST/SGOT) 11 U/L (15-37) Alanine Aminotransferase (ALT/SGPT) 6 U/L (12-78) Alkaline Phosphatase 94 U/L (46-116) Pro-B-Type Natriuretic Peptide 35 pg/mL (0-125) Total Protein 9.0 G/DL (6.4-8.2) Albumin 3.1 G/DL (3.4-5.0) Globulin 5.9 g/dL Albumin/Globulin Ratio 0.5 (1.0-2.7) Chest X-Ray Diagnostic Results Chest X-Ray Diagnostic Results : Chest X-Ray Ordered: Yes # of Views/Limited/Complete: 1 View Indication: Other EP Interpretation: Yes Interpretation: no consolidation, no effusion, no pneumothorax, no acute cardiopulmonary disease Impression: No acute disease Electronically Signed by: Electronically signed by Jamie Barrios MD Last Vital Signs Date Time Temp Pulse Resp B/P (MAP) Pulse Ox O2 Delivery O2 Flow Rate FiO2 12/02/18 19:20 98.4 98 18 108/67 96 Room Air Status: improved Disposition: ADMITTED INPATIENT Condition: Serious Referrals: NON PHYSICIAN (PCP) Jamie Barrios MD December 02, 2018 21:47
--- NOTE | 2018-12-02 22:01 | NUR ---
ED Nurse Note: report given to RN Sandoval from [facility], notified RN regarding pt's condition, temp 101.4 and given tylenol 650mg rectal, pt uses bipap at night for sleep apnea, o2=3L via NC for comfort at home. all belonging sent w/ pt.
--- NOTE | 2018-12-02 22:10 | NUR ---
ED Nurse Note: PT sent to [facility], all belongings sent w/ pt, pt transferred to floor via gurney by driver license technician. vss.
[2018-12-02] MEDS ORDERED: Miralax 17gm pkt ORAL PRN (22:30)
[2018-12-02] MEDS ORDERED: Albuterol/Ipratropium 3ml neb HHN PRN (22:30)
[2018-12-02] MEDS: Morphine Sulfate 2mg/ml Inj(IV/IM USE ONLY) IVP PRN (23:30)
--- NOTE | 2018-12-02 23:50 | NUR ---
NURSE NOTES: Pt is admitted from ER in stable condition, vitals stable. Report received from [facility]. Pt has Hx spina bifida; paraplegic. Pt has sacral and buttocks pressure ulcers, pt also has flaking skin and ecchymosis on the back. Wound care provided per protocol , wound picture uploaded in the [facility]. Dr. Pryor is called for admission orders, admission orders acknowledged from Dr. Pryor. Pt uses CPAP for sleep apnea during night at home, CPAP placed by RT per dr. Pryor's order. Pt has a suprapubic catheter draining cloudy urine. UA done at ER. Pt oriented to the unit. Pt is given some hydration and snack. Pt has no belongings, pt's belongings taken home by her brother. Fall precaution in place. Bed locked low in position,side rails up call light within reach. Bed alarm on. Pt will be turned at least q2hrs. Pt will be monitored.
--- NOTE | 2018-12-02 23:55 | NUR ---
NURSE NOTES: Dr. Pryor is called for wound care physician consult, no orders received.
[2018-12-03] VITALS: BP 113/58
[2018-12-03] MEDS ORDERED: Vancomycin 1 GM in D5W 275 ML IV SCH (00:30)
--- NOTE | 2018-12-03 02:54 | NUR ---
NURSE NOTES: Pt is transferred from room 402-1 to room 401-1. Pt is in bed, asleep. RR 18. CPAP on.
[2018-12-03 04:00] VITALS: BP 126/73
[2018-12-03 06:44] LABS: BASOPHILS % (AUTO) 0.3 % (0.0-2.0); HEMATOCRIT 35.8 % (37.0-47.0); HEMOGLOBIN 10.9 G/DL (12.0-16.0); LYMPHOCYTES % (AUTO) 20.2 % (20.0-45.0); MEAN CORPUSCULAR VOLUME 71 FL (80-99); MONOCYTES % (AUTO) 4.7 % (1.0-10.0); NEUTROPHILS % (AUTO) 71.9 % (45.0-75.0); PLATELET COUNT 330 K/UL (150-450); RED BLOOD COUNT 5.04 M/UL (4.20-5.40); RED CELL DISTRIBUTION WIDTH 17.2 % (11.6-14.8); WHITE BLOOD COUNT 14.3 K/UL (4.8-10.8)
[2018-12-03 06:56] LABS: ALANINE AMINOTRANSFERASE 6 U/L (12-78); ALBUMIN 2.8 G/DL (3.4-5.0); ALBUMIN/GLOBULIN RATIO 0.5 (1.0-2.7); ALKALINE PHOSPHATASE 86 U/L (46-116); ANION GAP 7 mmol/L (5-15); ASPARTATE AMINO TRANSFERASE 9 U/L (15-37); BILIRUBIN,TOTAL 0.3 MG/DL (0.2-1.0); BLOOD UREA NITROGEN 22 mg/dL (7-18); CALCIUM 8.7 MG/DL (8.5-10.1); CARBON DIOXIDE 31 MMOL/L (21-32); CHLORIDE 103 MMOL/L (98-107); CREATININE 0.4 MG/DL (0.55-1.30); POTASSIUM 3.7 MMOL/L (3.5-5.1); SODIUM 141 MMOL/L (136-145)
--- NOTE | 2018-12-03 07:15 | NUR ---
HAND-OFF: Report given to Helen Dai RN.Informed to have P200 mattress on pt's bed.
--- NOTE | 2018-12-03 07:41 | NUR ---
NURSE NOTES: Patient is resting in bed. Bed is locked and in lowest position. Suprapubic catheter is anchored and draining. No reports of discomfort at the moment. Will continue to monitor.
[2018-12-03 08:00] VITALS: BP 124/67
[2018-12-03] MEDS: Heparin 5000 units/ml inj SUBQ SCH ×2 (08:22→21:00)
[2018-12-03] MEDS: Vancomycin 750mg/D5W 275ml IVPB SCH ×4 (08:23→20:59)
--- NOTE | 2018-12-03 09:44 | Diagnostic Imaging Report ---
Indication: Dyspnea Comparison: 10/07/2018 A single view chest radiograph was obtained. Findings: No obvious infiltrate identified. The heart is enlarged. Right-sided thoracolumbar stabilization alysha noted. DRY ICE MAKER shunt projected over the right chest. Bones are osteopenic. IMPRESSION: No acute cardiopulmonary abnormalities. No change
--- NOTE | 2018-12-03 09:48 | NUR ---
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 WEAKNESS . SPINA BIFIDA VS: BP 100/51, P 92, T 100.9, RR 18, SpO2 92 WBC 15.3, RBC 5.43, H&H 11.8/35.8, BUN 21, CR 0.5, URINE: Bacteria-MANY, Protein 3+, Blood 4+ IS:NSx1L IV VANCOMYCIN 275ml IV TYLENOL 650 RECTAL ADMITTED TO MED/SURG DCP: RETURN HOME
--- NOTE | 2018-12-03 11:53 | NUR ---
RD ASSESSMENT & RECOMMENDATIONS SEE CARE ACTIVITY FOR COMPLETE ASSESSMENT DAILY ESTIMATED NEEDS: Needs based on wound, paraplegia/ 63kg 27-32kcal/kg kcals/kg 6159-0785 total kcals 1.25-1.5 g protein/kg 79-95 g total protein 25-30 mL/kg 2102-5401 total fluid mLs NUTRITION DIAGNOSIS: Increased kcal/pro/micronutrients needs R/T wound healing as evidenced by pt is paraplegic, h/o spina bifida, adm w/ sacral wound/ unstageable, R buttock full thickness wound, full WC eval is pending. PO DIET RECOMMENDATIONS: REGULAR/ texture as tolerated or per MEETING MANAGER ---- ADDITIONAL RECOMMENDATIONS: 1) Wound healing: GREGG BID + MVI x 1, Vit C 500mg QD 2) Obtain calibrated bedscale wt 3) Monitor for continued good PO intake 4) F/up w/ WC eval and H&P 5) MEETING MANAGER eval as appropriate . .
--- NOTE | 2018-12-03 11:59 | Consultation ---
History of Present Illness General Date patient seen: December 03, 2018 Chief Complaint: Female Urogenital Problems Present Illness HPI 48 y/o F with hx of DM2, HTN, spina bifida, wheelchair bound, chronic mena presented to ED on 12/02 with increasing irritability and cloudy sediments in mena catheter. Denied f/c, CP, SOB. Allergies: Coded Allergies: PENICILLIN G (Verified Allergy, Unknown, 12/02/18) Tolerates cabapenem, cephalosporin PENICILLINS (Unverified Allergy, Unknown, 12/02/18) Medication History Scheduled Apixaban (Eliquis), 5 MG PO BID, (Reported) Ascorbic Acid* (Ascorbic Acid*), 500 MG ORAL TWICE A DAY, (Reported) Ciprofloxacin (Cipro), 500 MG PO EVERY 12 HOURS Docusate Sodium* (Docusate Sodium*), 100 MG ORAL TWICE A DAY, (Reported) Ertapenem Sodium* (INVanz*), 1 GM IVPB Q24H, (Reported) Mirabegron (Myrbetriq), 50 MG PO DAILY, (Reported) Multivitamins* (Multivitamins*), 1 TAB ORAL DAILY, (Reported) Sennosides (Senna), 8.6 MG PO BID, (Reported) Zinc Sulfate (Zinc Sulfate), 220 MG ORAL DAILY, (Reported) Miscellaneous Medications Biotin (Biotin), 1,000 MCG PO, (Reported) Patient History Healthcare decision maker Resuscitation status Full Code Advanced Directive on File Patient History Narrative Pmhx: as above Shx: Denies: smoking, alcohol use, drug use Fhx: non contributory Review of Systems All Other Systems: negative except mentioned in HPI Physical Exam Physical Exam Narrative General Appearance: no apparent distress, alertnon-toxic HEENT: normocephalic, atraumatic bilateral eye PERRL normal pharynx Neck: full range of motion, supple/symm/no masses Respiratory: chest non-tender, lungs clear, normal breath sounds, speaking full sentences Cardiovascular : regular rate, rhythm, no edema Gastrointestinal: normal bowel sounds, non tender, soft, non-distended, no guarding, no rebound Genitourinary: normal inspection, no CVA tenderness Musculoskeletal: back normal Neurologic: alert, oriented x3, responsive, motor strength/tone normal, sensory intact, speech normal Skin: normal color, no rash, warm/dry, well hydrated Last 24 Hour Vital Signs Date Time Temp Pulse Resp B/P (MAP) Pulse Ox O2 Delivery O2 Flow Rate FiO2 12/03/18 10:32 Nasal Cannula 4.0 12/03/18 08:00 97.3 75 16 124/67 (86) 100 12/03/18 08:00 Nasal Cannula 2.0 12/03/18 07:20 3.0 32 12/03/18 05:05 82 12 97 Facial 30 12/03/18 04:00 98.1 76 18 126/73 (90) 99 12/03/18 03:12 80 12 98 Facial 30 12/03/18 00:10 89 14 Bi-pap 30 12/03/18 00:08 89 14 98 Facial 30 12/03/18 00:00 97.7 94 18 113/58 (76) 98 12/02/18 23:02 Bi-pap 30.0 12/02/18 22:00 100.9 98 18 100/51 96 Room Air 12/02/18 20:20 99.4 97 18 104/64 93 Room Air 12/02/18 19:20 98 18 Room Air 12/02/18 19:20 98.4 98 18 108/67 96 Room Air 12/02/18 18:16 98.4 96 18 92 Room Air Intake and Output 12/02/18 12/03/18 19:00 07:00 Intake Total 2000 ml Output Total 1200 ml Balance 800 ml Intake Oral 1000 ml IV Total 1000 ml Output Urine Total 1200 ml Laboratory Tests Test 12/02/18 19:40 12/03/18 05:28 White Blood Count 15.3 K/UL (4.8-10.8) H 14.3 K/UL (4.8-10.8) H Red Blood Count 5.43 M/UL (4.20-5.40) H 5.04 M/UL (4.20-5.40) Hemoglobin 11.8 G/DL (12.0-16.0) L 10.9 G/DL (12.0-16.0) L Hematocrit 38.4 % (37.0-47.0) 35.8 % (37.0-47.0) L Mean Corpuscular Volume 71 FL (80-99) L 71 FL (80-99) L Mean Corpuscular Hemoglobin 21.7 PG (27.0-31.0) L 21.7 PG (27.0-31.0) L Mean Corpuscular Hemoglobin Concent 30.7 G/DL (32.0-36.0) L 30.5 G/DL (32.0-36.0) L Red Cell Distribution Width 16.2 % (11.6-14.8) H 17.2 % (11.6-14.8) H Platelet Count 336 K/UL (150-450) 330 K/UL (150-450) Mean Platelet Volume 5.0 FL (6.5-10.1) L 5.9 FL (6.5-10.1) L Neutrophils (%) (Auto) 70.9 % (45.0-75.0) 71.9 % (45.0-75.0) Lymphocytes (%) (Auto) 20.7 % (20.0-45.0) 20.2 % (20.0-45.0) Monocytes (%) (Auto) 5.3 % (1.0-10.0) 4.7 % (1.0-10.0) Eosinophils (%) (Auto) 2.3 % (0.0-3.0) 3.0 % (0.0-3.0) Basophils (%) (Auto) 0.9 % (0.0-2.0) 0.3 % (0.0-2.0) Urine Color Pale yellow Urine Appearance Slightly cloudy Urine pH 8 (4.5-8.0) Urine Specific [place] 1.010 (1.005-1.035) Urine Protein 3+ (NEGATIVE) H Urine Glucose (UA) Negative (NEGATIVE) Urine Ketones Negative (NEGATIVE) Urine Blood 4+ (NEGATIVE) H Urine Nitrite Negative (NEGATIVE) Urine Bilirubin Negative (NEGATIVE) Urine Urobilinogen Normal MG/DL (0.0-1.0) Urine Leukocyte Esterase 3+ (NEGATIVE) H Urine RBC Tntc /HPF (0 - 2) H Urine WBC Tntc /HPF (0 - 2) H Urine Squamous Epithelial Cells Few /LPF (NONE/OCC) Urine Bacteria Many /HPF (NONE) H Sodium Level 143 MMOL/L (136-145) 141 MMOL/L (136-145) Potassium Level 4.0 MMOL/L (3.5-5.1) 3.7 MMOL/L (3.5-5.1) Chloride Level 102 MMOL/L (98-107) 103 MMOL/L (98-107) Carbon Dioxide Level 34 MMOL/L (21-32) H 31 MMOL/L (21-32) Anion Gap 7 mmol/L (5-15) 7 mmol/L (5-15) Blood Urea Nitrogen 21 mg/dL (7-18) H 22 mg/dL (7-18) H Creatinine 0.5 MG/DL (0.55-1.30) L 0.4 MG/DL (0.55-1.30) L Estimat Glomerular Filtration Rate > 60 mL/min (>60) > 60 mL/min (>60) Glucose Level 110 MG/DL (74-106) H 119 MG/DL (74-106) H Lactic Acid Level 1.60 mmol/L (0.4-2.0) Calcium Level 9.2 MG/DL (8.5-10.1) 8.7 MG/DL (8.5-10.1) Total Bilirubin 0.2 MG/DL (0.2-1.0) 0.3 MG/DL (0.2-1.0) Aspartate Amino Transf (AST/SGOT) 11 U/L (15-37) L 9 U/L (15-37) L Alanine Aminotransferase (ALT/SGPT) 6 U/L (12-78) L 6 U/L (12-78) L Alkaline Phosphatase 94 U/L (46-116) 86 U/L (46-116) Pro-B-Type Natriuretic Peptide 35 pg/mL (0-125) Total Protein 9.0 G/DL (6.4-8.2) H 8.3 G/DL (6.4-8.2) H Albumin 3.1 G/DL (3.4-5.0) L 2.8 G/DL (3.4-5.0) L Globulin 5.9 g/dL 5.5 g/dL Albumin/Globulin Ratio 0.5 (1.0-2.7) L 0.5 (1.0-2.7) L Height (Feet): 5 Height (Inches): 3.00 Weight (Pounds): 139 Medications Current Medications Medications (Trade) Dose Ordered Sig/Sandeep Route PRN Reason Start Time Stop Time Status Last Admin Dose Admin Acetaminophen (Tylenol) 650 mg Q4H PRN ORAL fever 12/02/18 22:30 01/01/19 22:29 Albuterol/ Ipratropium (Albuterol/ Ipratropium) 3 ml Q4H PRN HHN Shortness of Breath 12/02/18 22:30 12/07/18 22:29 Heparin Sodium (Porcine) (Heparin 5000 units/ml) 5,000 units EVERY 12 HOURS SUBQ 12/03/18 09:00 01/02/19 08:59 12/03/18 08:22 Morphine Sulfate (Morphine Sulfate) 2 mg Q4H PRN IVP Moderate Pain (Pain Scale 4-6) 12/02/18 22:30 12/09/18 22:29 12/02/18 23:30 Ondansetron HCl (Zofran) 4 mg Q6H PRN IVP Nausea & Vomiting 12/02/18 22:30 01/01/19 22:29 Phenazopyridine HCl (Pyridium) 100 mg DAILY PRN ORAL dysuria 12/02/18 22:30 01/01/19 22:29 Polyethylene Glycol (Miralax) 17 gm DAILYPRN PRN ORAL Constipation 12/02/18 22:30 01/01/19 22:29 Temazepam (Restoril) 15 mg HSPRN PRN ORAL Insomnia 12/02/18 22:30 12/09/18 22:29 12/02/18 23:29 Vancomycin HCl (Vanco rx to dose) 1 ea DAILY PRN MISC VANC MONITORING 12/02/18 23:00 01/01/19 22:59 Vancomycin HCl 750 mg/Dextrose 275 ml @ 183.333 mls/hr Q12H IVPB 12/03/18 09:00 12/08/18 08:59 12/03/18 08:23 Assessment/Plan Assessment/Plan: Abx: IV Vancomycin 12/02- Assessment: Sepsis-2ry to UTI -u/a wbc tnct, nit +, leuk +3; ucx p -CXR: No acute cardiopulmonary abnormalities. No change Low grade fever Leukocytosis, improving hx of UTI -09/2018 ucx >100k P. mirabilis (R amp, bactrim; otherwise S); >100k PsA (I cefepime; R ceftazidime), >100k E. fecalis (S Amp, vanco, nitrofurantoin) --MRSA 02/2018 -S. 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 Will continue to follow along with you. Discussed with Joaquina Rivera M.D. December 03, 2018 11:59
[2018-12-03 12:00] VITALS: BP 130/77
[2018-12-03] MEDS: Ciprofloxacin 500mg tab ORAL SCH ×2 (12:28→20:58)
--- NOTE | 2018-12-03 13:08 | History and Physical ---
History of Present Illness General Date patient seen: December 03, 2018 Reason for Hospitalization: Female Urogenital Problems Present Illness HPI 48 year old female with history of developmental delay, CP shunt and suprapubic catheter, nonambulatory at baseline. She was brought to ER because her urine was cloudy. Family noted cloudy sediment in the Huber catheter for the last few days. Patient also noted to be increasingly irritable to the family. Family states that whenever this happened she has an infection There is no fever or chills. There is no nausea or vomiting. There is no chest pain or shortness of breath. she was found to be septic and admitted for further evaluation. Allergies: Coded Allergies: PENICILLIN G (Verified Allergy, Unknown, 12/02/18) Tolerates cabapenem, cephalosporin PENICILLINS (Unverified Allergy, Unknown, 12/02/18) Medication History Scheduled Apixaban (Eliquis), 5 MG PO BID, (Reported) Ascorbic Acid* (Ascorbic Acid*), 500 MG ORAL TWICE A DAY, (Reported) Ciprofloxacin (Cipro), 500 MG PO EVERY 12 HOURS Docusate Sodium* (Docusate Sodium*), 100 MG ORAL TWICE A DAY, (Reported) Ertapenem Sodium* (INVanz*), 1 GM IVPB Q24H, (Reported) Mirabegron (Myrbetriq), 50 MG PO DAILY, (Reported) Multivitamins* (Multivitamins*), 1 TAB ORAL DAILY, (Reported) Sennosides (Senna), 8.6 MG PO BID, (Reported) Zinc Sulfate (Zinc Sulfate), 220 MG ORAL DAILY, (Reported) Miscellaneous Medications Biotin (Biotin), 1,000 MCG PO, (Reported) Patient History Healthcare decision maker Resuscitation status Full Code Advanced Directive on File Past Medical/Surgical History Past Medical/Surgical History: (1) Spina bifida (2) Urinary catheter in place (3) Restrictive lung disease due to kyphoscoliosis (4) Suprapubic catheter (5) Decubitus skin ulcer (6) Paraplegia Review of Systems All Other Systems: negative except mentioned in HPI Physical Exam General Appearance: WD/WN Lines, tubes and drains: peripheral HEENT: normocephalic, atraumatic Neck: non-tender, normal alignment Respiratory/Chest: chest wall non-tender, lungs clear Breasts: no masses Cardiovascular/Chest: normal peripheral pulses Abdomen: normal bowel sounds, non tender Genitourinary/Rectal: normal genital exam Extremities: normal range of motion Neurologic: track rider II-XII grossly normal Last 24 Hour Vital Signs Date Time Temp Pulse Resp B/P (MAP) Pulse Ox O2 Delivery O2 Flow Rate FiO2 12/03/18 10:32 Nasal Cannula 4.0 12/03/18 08:00 97.3 75 16 124/67 (86) 100 12/03/18 08:00 Nasal Cannula 2.0 12/03/18 07:20 3.0 32 12/03/18 05:05 82 12 97 Facial 30 12/03/18 04:00 98.1 76 18 126/73 (90) 99 12/03/18 03:12 80 12 98 Facial 30 12/03/18 00:10 89 14 Bi-pap 30 12/03/18 00:08 89 14 98 Facial 30 12/03/18 00:00 97.7 94 18 113/58 (76) 98 12/02/18 23:02 Bi-pap 30.0 12/02/18 22:00 100.9 98 18 100/51 96 Room Air 12/02/18 20:20 99.4 97 18 104/64 93 Room Air 12/02/18 19:20 98 18 Room Air 12/02/18 19:20 98.4 98 18 108/67 96 Room Air 12/02/18 18:16 98.4 96 18 92 Room Air Intake and Output 12/02/18 12/03/18 19:00 07:00 Intake Total 2000 ml Output Total 1200 ml Balance 800 ml Intake Oral 1000 ml IV Total 1000 ml Output Urine Total 1200 ml Laboratory Tests Test 12/02/18 19:40 12/03/18 05:28 White Blood Count 15.3 K/UL (4.8-10.8) H 14.3 K/UL (4.8-10.8) H Red Blood Count 5.43 M/UL (4.20-5.40) H 5.04 M/UL (4.20-5.40) Hemoglobin 11.8 G/DL (12.0-16.0) L 10.9 G/DL (12.0-16.0) L Hematocrit 38.4 % (37.0-47.0) 35.8 % (37.0-47.0) L Mean Corpuscular Volume 71 FL (80-99) L 71 FL (80-99) L Mean Corpuscular Hemoglobin 21.7 PG (27.0-31.0) L 21.7 PG (27.0-31.0) L Mean Corpuscular Hemoglobin Concent 30.7 G/DL (32.0-36.0) L 30.5 G/DL (32.0-36.0) L Red Cell Distribution Width 16.2 % (11.6-14.8) H 17.2 % (11.6-14.8) H Platelet Count 336 K/UL (150-450) 330 K/UL (150-450) Mean Platelet Volume 5.0 FL (6.5-10.1) L 5.9 FL (6.5-10.1) L Neutrophils (%) (Auto) 70.9 % (45.0-75.0) 71.9 % (45.0-75.0) Lymphocytes (%) (Auto) 20.7 % (20.0-45.0) 20.2 % (20.0-45.0) Monocytes (%) (Auto) 5.3 % (1.0-10.0) 4.7 % (1.0-10.0) Eosinophils (%) (Auto) 2.3 % (0.0-3.0) 3.0 % (0.0-3.0) Basophils (%) (Auto) 0.9 % (0.0-2.0) 0.3 % (0.0-2.0) Urine Color Pale yellow Urine Appearance Slightly cloudy Urine pH 8 (4.5-8.0) Urine Specific [place] 1.010 (1.005-1.035) Urine Protein 3+ (NEGATIVE) H Urine Glucose (UA) Negative (NEGATIVE) Urine Ketones Negative (NEGATIVE) Urine Blood 4+ (NEGATIVE) H Urine Nitrite Negative (NEGATIVE) Urine Bilirubin Negative (NEGATIVE) Urine Urobilinogen Normal MG/DL (0.0-1.0) Urine Leukocyte Esterase 3+ (NEGATIVE) H Urine RBC Tntc /HPF (0 - 2) H Urine WBC Tntc /HPF (0 - 2) H Urine Squamous Epithelial Cells Few /LPF (NONE/OCC) Urine Bacteria Many /HPF (NONE) H Sodium Level 143 MMOL/L (136-145) 141 MMOL/L (136-145) Potassium Level 4.0 MMOL/L (3.5-5.1) 3.7 MMOL/L (3.5-5.1) Chloride Level 102 MMOL/L (98-107) 103 MMOL/L (98-107) Carbon Dioxide Level 34 MMOL/L (21-32) H 31 MMOL/L (21-32) Anion Gap 7 mmol/L (5-15) 7 mmol/L (5-15) Blood Urea Nitrogen 21 mg/dL (7-18) H 22 mg/dL (7-18) H Creatinine 0.5 MG/DL (0.55-1.30) L 0.4 MG/DL (0.55-1.30) L Estimat Glomerular Filtration Rate > 60 mL/min (>60) > 60 mL/min (>60) Glucose Level 110 MG/DL (74-106) H 119 MG/DL (74-106) H Lactic Acid Level 1.60 mmol/L (0.4-2.0) Calcium Level 9.2 MG/DL (8.5-10.1) 8.7 MG/DL (8.5-10.1) Total Bilirubin 0.2 MG/DL (0.2-1.0) 0.3 MG/DL (0.2-1.0) Aspartate Amino Transf (AST/SGOT) 11 U/L (15-37) L 9 U/L (15-37) L Alanine Aminotransferase (ALT/SGPT) 6 U/L (12-78) L 6 U/L (12-78) L Alkaline Phosphatase 94 U/L (46-116) 86 U/L (46-116) Pro-B-Type Natriuretic Peptide 35 pg/mL (0-125) Total Protein 9.0 G/DL (6.4-8.2) H 8.3 G/DL (6.4-8.2) H Albumin 3.1 G/DL (3.4-5.0) L 2.8 G/DL (3.4-5.0) L Globulin 5.9 g/dL 5.5 g/dL Albumin/Globulin Ratio 0.5 (1.0-2.7) L 0.5 (1.0-2.7) L Height (Feet): 5 Height (Inches): 3.00 Weight (Pounds): 139 Medications Current Medications Medications (Trade) Dose Ordered Sig/Sandeep Route PRN Reason Start Time Stop Time Status Last Admin Dose Admin Acetaminophen (Tylenol) 650 mg Q4H PRN ORAL fever 12/02/18 22:30 01/01/19 22:29 Albuterol/ Ipratropium (Albuterol/ Ipratropium) 3 ml Q4H PRN HHN Shortness of Breath 12/02/18 22:30 12/07/18 22:29 Cefepime HCl 1 gm/ Dextrose 55 ml @ 110 mls/hr EVERY 12 HOURS IVPB 12/03/18 13:00 12/10/18 12:59 Ciprofloxacin (Cipro 500mg tab) 500 mg EVERY 12 HOURS ORAL 12/03/18 12:00 12/10/18 11:59 12/03/18 12:28 Heparin Sodium (Porcine) (Heparin 5000 units/ml) 5,000 units EVERY 12 HOURS SUBQ 12/03/18 09:00 01/02/19 08:59 12/03/18 08:22 Morphine Sulfate (Morphine Sulfate) 2 mg Q4H PRN IVP Moderate Pain (Pain Scale 4-6) 12/02/18 22:30 12/09/18 22:29 12/02/18 23:30 Ondansetron HCl (Zofran) 4 mg Q6H PRN IVP Nausea & Vomiting 12/02/18 22:30 01/01/19 22:29 Phenazopyridine HCl (Pyridium) 100 mg DAILY PRN ORAL dysuria 12/02/18 22:30 01/01/19 22:29 Polyethylene Glycol (Miralax) 17 gm DAILYPRN PRN ORAL Constipation 12/02/18 22:30 01/01/19 22:29 Temazepam (Restoril) 15 mg HSPRN PRN ORAL Insomnia 12/02/18 22:30 12/09/18 22:29 12/02/18 23:29 Vancomycin HCl (Vanco rx to dose) 1 ea DAILY PRN MISC VANC MONITORING 12/02/18 23:00 01/01/19 22:59 Vancomycin HCl 750 mg/Dextrose 275 ml @ 183.333 mls/hr Q12H IVPB 12/03/18 09:00 12/08/18 08:59 12/03/18 08:23 Assessment/Plan Problem List: (1) Sepsis ICD Codes: A41.9 - Sepsis, unspecified organism SNOMED: 11444092 (2) UTI (urinary tract infection) ICD Codes: N39.0 - Urinary tract infection, site not specified SNOMED: 59484880 Qualifiers: Qualified Codes: N39.0 - Urinary tract infection, site not specified (3) Decubitus skin ulcer ICD Codes: L89.90 - Pressure ulcer of unspecified site, unspecified stage SNOMED: 213742596 (4) Restrictive lung disease due to kyphoscoliosis ICD Codes: J98.4 - Other disorders of lung; M41.9 - Scoliosis, unspecified SNOMED: 015331200 (5) Suprapubic catheter ICD Codes: Z93.59 - Other cystostomy status SNOMED: 355678889, 183775909 (6) Paraplegia ICD Codes: G82.20 - Paraplegia, unspecified SNOMED: 80021597 (7) Spina bifida ICD Codes: Q05.9 - Spina bifida, unspecified SNOMED: 20770873 Qualifiers: Qualified Codes: Q05.9 - Spina bifida, unspecified Assessment/Plan: urine cultures IV abx avoid PCN wound cultures symptomatic treatment check electrolytes dvt prophylaxis. Chyna Pryor MD December 03, 2018 13:08
[2018-12-03] MEDS: Cefepime HCl 1 GM in D5W 55 ML IVPB SCH ×2 (14:05→20:07)
[2018-12-03 16:00] VITALS: BP 127/80
--- NOTE | 2018-12-03 16:04 | Consultation ---
History of Present Illness General Date patient seen: December 03, 2018 Reason for Hospitalization: Female Urogenital Problems Present Illness HPI 48 year old female known to me from prior with multiple medical comorbidities who presented with discomfort and cloudy urine concerning for infection. Admitted for care once noted to have leukocytosis and abnormal labs. On admission noted to have multiple wounds requiring care. Surgery called to evaluate and assist with care. patient seen, chart reviewed, patient examined. states she is comfortable now Allergies: Coded Allergies: PENICILLIN G (Verified Allergy, Unknown, 12/02/18) Tolerates cabapenem, cephalosporin PENICILLINS (Unverified Allergy, Unknown, 12/02/18) Medication History Scheduled Apixaban (Eliquis), 5 MG PO BID, (Reported) Ascorbic Acid* (Ascorbic Acid*), 500 MG ORAL TWICE A DAY, (Reported) Ciprofloxacin (Cipro), 500 MG PO EVERY 12 HOURS Docusate Sodium* (Docusate Sodium*), 100 MG ORAL TWICE A DAY, (Reported) Ertapenem Sodium* (INVanz*), 1 GM IVPB Q24H, (Reported) Mirabegron (Myrbetriq), 50 MG PO DAILY, (Reported) Multivitamins* (Multivitamins*), 1 TAB ORAL DAILY, (Reported) Sennosides (Senna), 8.6 MG PO BID, (Reported) Zinc Sulfate (Zinc Sulfate), 220 MG ORAL DAILY, (Reported) Miscellaneous Medications Biotin (Biotin), 1,000 MCG PO, (Reported) Patient History Limited by: medical condition History Provided By: Patient, Medical Record Healthcare decision maker Resuscitation status Full Code Advanced Directive on File Past Medical/Surgical History Past Medical/Surgical History: (1) Paraplegia (2) Sepsis (3) ATN (acute tubular necrosis) (4) Suprapubic catheter (5) Restrictive lung disease due to kyphoscoliosis (6) Hyperkalemia (7) Cellulitis (8) Pulmonary edema (9) Hypotension (10) Urinary catheter in place (11) Encounter for care or replacement of suprapubic tube (12) Blocked suprapubic catheter (13) Decubitus skin ulcer (14) Spina bifida (15) UTI (urinary tract infection) Review of Systems Review of Symptoms General ROS: no weight loss or fever Psychological ROS: no depression or mood changes, no memory loss Ophthalmic ROS: no visual changes or eye irritation ENT ROS: no nasal congestion, hearing loss, dizziness Allergy and Immunology ROS: no allergic symptoms or urticaria Hematological and Lymphatic ROS: no swollen glands, unusual bleeding or bruising Endocrine ROS: no polyuria, polydipsia, weight changes, temperature intolerance Respiratory ROS: no cough, shortness of breath, or wheezing Cardiovascular ROS: no chest pain or dyspnea on exertion Gastrointestinal ROS: denies abdominal pain, bright red blood in stool. Musculoskeletal ROS: no myalgias or arthralgias Neurological ROS: no TIA or stroke symptoms Dermatological ROS: no new or changing skin lesions, rashes or pruritis Physical Exam Physical Exam General appearance: alert, cooperative, no distress, appears stated age Head: Normocephalic, without obvious abnormality, atraumatic Eyes: conjunctivae/corneas clear. PERRL, EOM's intact. Fundi benign Throat: Lips, mucosa, and tongue normal. Teeth and gums normal Neck: supple, symmetrical, trachea midline, no adenopathy, thyroid: not enlarged, symmetric, no tenderness/mass/nodules, no carotid bruit and no JVD Lungs: clear to auscultation bilaterally Heart: regular rate and rhythm, S1, S2 normal, no murmur, click, rub or gallop Abdomen: soft, non-tender. Bowel sounds normal. No masses, no organomegaly Extremities: extremities normal, atraumatic, no cyanosis or edema Pulses: 2+ and symmetric Skin: Skin color, texture, turgor normal. No rashes or lesions Neurologic: Grossly normal Last 24 Hour Vital Signs Date Time Temp Pulse Resp B/P (MAP) Pulse Ox O2 Delivery O2 Flow Rate FiO2 12/03/18 12:00 98.8 79 16 130/77 (94) 100 12/03/18 10:32 Nasal Cannula 4.0 12/03/18 08:00 97.3 75 16 124/67 (86) 100 12/03/18 08:00 Nasal Cannula 2.0 12/03/18 07:20 3.0 32 12/03/18 05:05 82 12 97 Facial 30 12/03/18 04:00 98.1 76 18 126/73 (90) 99 12/03/18 03:12 80 12 98 Facial 30 12/03/18 00:10 89 14 Bi-pap 30 12/03/18 00:08 89 14 98 Facial 30 12/03/18 00:00 97.7 94 18 113/58 (76) 98 12/02/18 23:02 Bi-pap 30.0 12/02/18 22:00 100.9 98 18 100/51 96 Room Air 12/02/18 20:20 99.4 97 18 104/64 93 Room Air 12/02/18 19:20 98 18 Room Air 12/02/18 19:20 98.4 98 18 108/67 96 Room Air 12/02/18 18:16 98.4 96 18 92 Room Air Intake and Output 12/02/18 12/03/18 18:59 06:59 Intake Total 2000 ml Output Total 1200 ml Balance 800 ml Intake Oral 1000 ml IV Total 1000 ml Output Urine Total 1200 ml Laboratory Tests Test 12/02/18 19:40 12/03/18 05:28 White Blood Count 15.3 K/UL (4.8-10.8) H 14.3 K/UL (4.8-10.8) H Red Blood Count 5.43 M/UL (4.20-5.40) H 5.04 M/UL (4.20-5.40) Hemoglobin 11.8 G/DL (12.0-16.0) L 10.9 G/DL (12.0-16.0) L Hematocrit 38.4 % (37.0-47.0) 35.8 % (37.0-47.0) L Mean Corpuscular Volume 71 FL (80-99) L 71 FL (80-99) L Mean Corpuscular Hemoglobin 21.7 PG (27.0-31.0) L 21.7 PG (27.0-31.0) L Mean Corpuscular Hemoglobin Concent 30.7 G/DL (32.0-36.0) L 30.5 G/DL (32.0-36.0) L Red Cell Distribution Width 16.2 % (11.6-14.8) H 17.2 % (11.6-14.8) H Platelet Count 336 K/UL (150-450) 330 K/UL (150-450) Mean Platelet Volume 5.0 FL (6.5-10.1) L 5.9 FL (6.5-10.1) L Neutrophils (%) (Auto) 70.9 % (45.0-75.0) 71.9 % (45.0-75.0) Lymphocytes (%) (Auto) 20.7 % (20.0-45.0) 20.2 % (20.0-45.0) Monocytes (%) (Auto) 5.3 % (1.0-10.0) 4.7 % (1.0-10.0) Eosinophils (%) (Auto) 2.3 % (0.0-3.0) 3.0 % (0.0-3.0) Basophils (%) (Auto) 0.9 % (0.0-2.0) 0.3 % (0.0-2.0) Urine Color Pale yellow Urine Appearance Slightly cloudy Urine pH 8 (4.5-8.0) Urine Specific [place] 1.010 (1.005-1.035) Urine Protein 3+ (NEGATIVE) H Urine Glucose (UA) Negative (NEGATIVE) Urine Ketones Negative (NEGATIVE) Urine Blood 4+ (NEGATIVE) H Urine Nitrite Negative (NEGATIVE) Urine Bilirubin Negative (NEGATIVE) Urine Urobilinogen Normal MG/DL (0.0-1.0) Urine Leukocyte Esterase 3+ (NEGATIVE) H Urine RBC Tntc /HPF (0 - 2) H Urine WBC Tntc /HPF (0 - 2) H Urine Squamous Epithelial Cells Few /LPF (NONE/OCC) Urine Bacteria Many /HPF (NONE) H Sodium Level 143 MMOL/L (136-145) 141 MMOL/L (136-145) Potassium Level 4.0 MMOL/L (3.5-5.1) 3.7 MMOL/L (3.5-5.1) Chloride Level 102 MMOL/L (98-107) 103 MMOL/L (98-107) Carbon Dioxide Level 34 MMOL/L (21-32) H 31 MMOL/L (21-32) Anion Gap 7 mmol/L (5-15) 7 mmol/L (5-15) Blood Urea Nitrogen 21 mg/dL (7-18) H 22 mg/dL (7-18) H Creatinine 0.5 MG/DL (0.55-1.30) L 0.4 MG/DL (0.55-1.30) L Estimat Glomerular Filtration Rate > 60 mL/min (>60) > 60 mL/min (>60) Glucose Level 110 MG/DL (74-106) H 119 MG/DL (74-106) H Lactic Acid Level 1.60 mmol/L (0.4-2.0) Calcium Level 9.2 MG/DL (8.5-10.1) 8.7 MG/DL (8.5-10.1) Total Bilirubin 0.2 MG/DL (0.2-1.0) 0.3 MG/DL (0.2-1.0) Aspartate Amino Transf (AST/SGOT) 11 U/L (15-37) L 9 U/L (15-37) L Alanine Aminotransferase (ALT/SGPT) 6 U/L (12-78) L 6 U/L (12-78) L Alkaline Phosphatase 94 U/L (46-116) 86 U/L (46-116) Pro-B-Type Natriuretic Peptide 35 pg/mL (0-125) Total Protein 9.0 G/DL (6.4-8.2) H 8.3 G/DL (6.4-8.2) H Albumin 3.1 G/DL (3.4-5.0) L 2.8 G/DL (3.4-5.0) L Globulin 5.9 g/dL 5.5 g/dL Albumin/Globulin Ratio 0.5 (1.0-2.7) L 0.5 (1.0-2.7) L Height (Feet): 5 Height (Inches): 3.00 Weight (Pounds): 139 Medications Current Medications Medications (Trade) Dose Ordered Sig/Sandeep Route PRN Reason Start Time Stop Time Status Last Admin Dose Admin Acetaminophen (Tylenol) 650 mg Q4H PRN ORAL fever 12/02/18 22:30 01/01/19 22:29 Albuterol/ Ipratropium (Albuterol/ Ipratropium) 3 ml Q4H PRN HHN Shortness of Breath 12/02/18 22:30 12/07/18 22:29 Cefepime HCl 1 gm/ Dextrose 55 ml @ 110 mls/hr EVERY 12 HOURS IVPB 12/03/18 13:00 12/10/18 12:59 12/03/18 14:05 Ciprofloxacin (Cipro 500mg tab) 500 mg EVERY 12 HOURS ORAL 12/03/18 12:00 12/10/18 11:59 12/03/18 12:28 Heparin Sodium (Porcine) (Heparin 5000 units/ml) 5,000 units EVERY 12 HOURS SUBQ 12/03/18 09:00 01/02/19 08:59 12/03/18 08:22 Morphine Sulfate (Morphine Sulfate) 2 mg Q4H PRN IVP Moderate Pain (Pain Scale 4-6) 12/02/18 22:30 12/09/18 22:29 12/02/18 23:30 Ondansetron HCl (Zofran) 4 mg Q6H PRN IVP Nausea & Vomiting 12/02/18 22:30 01/01/19 22:29 Phenazopyridine HCl (Pyridium) 100 mg DAILY PRN ORAL dysuria 12/02/18 22:30 01/01/19 22:29 Polyethylene Glycol (Miralax) 17 gm DAILYPRN PRN ORAL Constipation 12/02/18 22:30 01/01/19 22:29 Temazepam (Restoril) 15 mg HSPRN PRN ORAL Insomnia 12/02/18 22:30 12/09/18 22:29 12/02/18 23:29 Vancomycin HCl (Vanco rx to dose) 1 ea DAILY PRN MISC VANC MONITORING 12/02/18 23:00 01/01/19 22:59 Vancomycin HCl 750 mg/Dextrose 275 ml @ 183.333 mls/hr Q12H IVPB 12/03/18 09:00 12/08/18 08:59 12/03/18 08:23 Assessment/Plan Problem List: (1) Paraplegia ICD Codes: G82.20 - Paraplegia, unspecified SNOMED: 97529722 (2) Sepsis Assessment & Plan: HD stable, leukocytosis, abnormal labs pending blood cultures on IV Abx as per ID trend labs ICD Codes: A41.9 - Sepsis, unspecified organism SNOMED: 46870168 (3) ATN (acute tubular necrosis) ICD Codes: N17.0 - Acute kidney failure with tubular necrosis SNOMED: 77077309 (4) Suprapubic catheter ICD Codes: Z93.59 - Other cystostomy status SNOMED: 142063067, 225750124 (5) Restrictive lung disease due to kyphoscoliosis ICD Codes: J98.4 - Other disorders of lung; M41.9 - Scoliosis, unspecified SNOMED: 195734763 (6) Hyperkalemia ICD Codes: E87.5 - Hyperkalemia SNOMED: 26301181 (7) Cellulitis ICD Codes: L03.90 - Cellulitis, unspecified SNOMED: 534359753 (8) Pulmonary edema ICD Codes: J81.1 - Chronic pulmonary edema SNOMED: 97131152 (9) Hypotension ICD Codes: I95.9 - Hypotension, unspecified SNOMED: 48531265 (10) Urinary catheter in place ICD Codes: Z92.89 - Personal history of other medical treatment SNOMED: 684801728 (11) Encounter for care or replacement of suprapubic tube ICD Codes: Z43.5 - Encounter for attention to cystostomy SNOMED: 033528554, 80110226 (12) Blocked suprapubic catheter ICD Codes: T83.090A - Other mechanical complication of cystostomy catheter, initial encounter SNOMED: 755745767, 150521934 (13) Decubitus skin ulcer Assessment & Plan: Patient presented on admission with resolving 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 Historical scars noted to lumbar area. Base of wound at sacrum with scattered slough, Bone is palpable , otherwise pink. (+) maceration along borders. No odor noted. Small amt serous exudate. Hyperpigmentation noted periwound. Both heels are soft with dry peeling skin. Both heels are blanchable. Tx.Plan: Cleanse sacral wound with Saline.Apply Therahoney. Apply Triad periwound. Cover with Optifoam drsg Daily and prn. Apply Triad Paste to L Buttocks/L Ischial area with each perineal care. Apply Cavilon Skin Barrier to both heels. Off-load heels with Pillow. Reposition at least every 2hours or as tolerated. APM/JOSE mattress. Nutritional optimization for wound healing Nutrition consult Labs noted ICD Codes: L89.90 - Pressure ulcer of unspecified site, unspecified stage SNOMED: 057919407 (14) Spina bifida Assessment & Plan: DAILY ESTIMATED NEEDS: Needs based on wound, paraplegia/ 63kg 27-32kcal/kg kcals/kg 9353-2141 total kcals 1.25-1.5 g protein/kg 79-95 g total protein 25-30 mL/kg 6267-4976 total fluid mLs NUTRITION DIAGNOSIS: Increased kcal/pro/micronutrients needs R/T wound healing as evidenced by pt is paraplegic, h/o spina bifida, adm w/ sacral wound/ unstageable, R buttock full thickness wound, full WC eval is pending. PO DIET RECOMMENDATIONS: REGULAR/ texture as tolerated or per MOBILE LOUNGE DRIVER OR OPERATOR ---- ADDITIONAL RECOMMENDATIONS: 1) Wound healing: GREGG BID + MVI x 1, Vit C 500mg QD 2) Obtain calibrated bedscale wt 3) Monitor for continued good PO intake 4) F/up w/ WC eval and H&P 5) MOBILE LOUNGE DRIVER OR OPERATOR eval as appropriate ICD Codes: Q05.9 - Spina bifida, unspecified SNOMED: 72514347 Qualifiers: Qualified Codes: Q05.9 - Spina bifida, unspecified (15) UTI (urinary tract infection) ICD Codes: N39.0 - Urinary tract infection, site not specified SNOMED: 65595765 Qualifiers: Qualified Codes: N39.0 - Urinary tract infection, site not specified Saad Neves December 03, 2018 16:04
--- NOTE | 2018-12-03 16:09 | NUR ---
NURSE NOTES:WOUND CARE NOTES:Pt presented on admission with resolving pressure injury to sacrum with pink epithelial and # 2 full thickness pressure injuries within base of wound at R and L sacrum. (L)sacral wound moist viable ,macerated borders.[place] epithelial periwound (L)1cm x (W)0.8cm x (D)0.4cm. R sacrum full thickness pressure injury .Base of wound moist-viable ,macerated borders, [place] epithelial periwound. Multiple partial thickness wounds scattered to R and L buttocks and both ischial l areas. Both heels are soft but pink and blanchable. No evidence of Skin breakdown noted to all other bony prominences. Tx.Plan: Cleanse wounds R and L sacrum with Saline. Apply Therahoney to wounds. Apply Triad Paste to surrounding areas. Cover with Optifoam drsg. Change every 3 days and prn. Apply Cavilon Skin Barrier to R and L heels and Malleoli daily. Reposition at least every 2hours or as tolerated. APM/JOSE Mattress overlay. Off-load heels with pillow.
--- NOTE | 2018-12-03 19:19 | NUR ---
HAND-OFF: Report given to EMMA Palma.
--- NOTE | 2018-12-03 19:20 | NUR ---
NURSE NOTES: Received patient in bed, no acute distress noted, patient is bed bound, on 3 liters of oxygen, family at bedside, call light is within reach, bed is in low position, locked and alarm is on. Will continue to monitor for safety and comfort.
[2018-12-03 20:00] VITALS: BP 129/72
[2018-12-03] MEDS: Morphine Sulfate 2mg/ml Inj(IV/IM USE ONLY) IVP PRN (20:58)
[2018-12-04] VITALS: BP 110/53
[2018-12-04 04:00] VITALS: BP 105/66
--- NOTE | 2018-12-04 06:49 | NUR ---
HAND-OFF: Report given to Perfecto CARTER.
--- NOTE | 2018-12-04 07:35 | NUR ---
NURSE NOTES: Received patient on bed, awake. IV site in tact and patent. Dressings dry and intact. Bed in low and locked position, call light in reach. No signs of respiratory distress or pain. Suprapubic catheter in pace and intact and patent. Room board updated, will continue to monitor.
[2018-12-04 08:00] VITALS: BP 105/59
[2018-12-04] MEDS: Cefepime HCl 1 GM in D5W 55 ML IVPB SCH ×2 (08:26→20:41)
[2018-12-04] MEDS: Ciprofloxacin 500mg tab ORAL SCH ×2 (08:38→20:41)
[2018-12-04] MEDS: Heparin 5000 units/ml inj SUBQ SCH ×2 (08:39→20:43)
[2018-12-04 09:11] LABS: BASOPHILS % (AUTO) 0.3 % (0.0-2.0); EOSINOPHILS % (AUTO) 4.4 % (0.0-3.0); HEMATOCRIT 35.6 % (37.0-47.0); HEMOGLOBIN 10.6 G/DL (12.0-16.0); LYMPHOCYTES % (AUTO) 21.8 % (20.0-45.0); MEAN CORPUSCULAR VOLUME 72 FL (80-99); MONOCYTES % (AUTO) 4.2 % (1.0-10.0); NEUTROPHILS % (AUTO) 69.2 % (45.0-75.0); PLATELET COUNT 294 K/UL (150-450); RED BLOOD COUNT 4.97 M/UL (4.20-5.40); RED CELL DISTRIBUTION WIDTH 16.8 % (11.6-14.8); WHITE BLOOD COUNT 9.1 K/UL (4.8-10.8)
[2018-12-04 09:45] LABS: ALANINE AMINOTRANSFERASE < 6 U/L (12-78); ALBUMIN 2.7 G/DL (3.4-5.0); ALBUMIN/GLOBULIN RATIO 0.5 (1.0-2.7); ALKALINE PHOSPHATASE 79 U/L (46-116); ANION GAP 6 mmol/L (5-15); ASPARTATE AMINO TRANSFERASE 9 U/L (15-37); BILIRUBIN,TOTAL 0.2 MG/DL (0.2-1.0); BLOOD UREA NITROGEN 15 mg/dL (7-18); CALCIUM 8.5 MG/DL (8.5-10.1); CARBON DIOXIDE 31 MMOL/L (21-32); CHLORIDE 102 MMOL/L (98-107); CREATININE 0.5 MG/DL (0.55-1.30); POTASSIUM 3.3 MMOL/L (3.5-5.1); SODIUM 139 MMOL/L (136-145)
[2018-12-04] MEDS: Vancomycin 750mg/D5W 275ml IVPB SCH ×4 (10:53→21:34)
[2018-12-04 12:00] VITALS: BP 120/60
--- NOTE | 2018-12-04 12:49 | Pulmonology Progress Note ---
Assessment/Plan Problems: (1) Sepsis (2) UTI (urinary tract infection) (3) Decubitus skin ulcer (4) Restrictive lung disease due to kyphoscoliosis (5) Suprapubic catheter (6) Paraplegia (7) Spina bifida Assessment/Plan BC negative so far urine cultures pending wbc decreasing K supplement check electrolytes in am dc home soon, once urine cultures are available dvt prophylaxis. Subjective ROS Limited/Unobtainable: No Constitutional: Reports: no symptoms HEENT: Repors: no symptoms Respiratory: Reports: no symptoms Allergies: Coded Allergies: PENICILLIN G (Verified Allergy, Unknown, 12/02/18) Tolerates cabapenem, cephalosporin PENICILLINS (Unverified Allergy, Unknown, 12/02/18) Objective Last 24 Hour Vital Signs Date Time Temp Pulse Resp B/P (MAP) Pulse Ox O2 Delivery O2 Flow Rate FiO2 12/04/18 12:00 98.2 78 20 120/60 (80) 100 12/04/18 09:00 Nasal Cannula 2.0 12/04/18 08:00 97.8 76 18 105/59 (74) 98 12/04/18 05:48 69 12 98 12/04/18 04:00 97.8 65 16 105/66 (79) 65 12/04/18 02:42 70 15 98 Facial 30 12/04/18 01:30 75 12 98 Facial 30 12/04/18 00:00 97.6 78 16 110/53 (72) 78 12/03/18 23:00 76 12 98 Facial 30 12/03/18 21:00 Nasal Cannula 2.0 12/03/18 20:00 96.0 89 19 129/72 (91) 89 12/03/18 16:00 98.4 79 18 127/80 (96) 100 Intake and Output 12/03/18 12/04/18 19:00 07:00 Intake Total 600 ml Output Total 1600 ml 800 ml Balance -1000 ml -800 ml Intake Oral 600 ml Output Urine Total 1600 ml 800 ml General Appearance: WD/WN HEENT: normocephalic, atraumatic Respiratory/Chest: chest wall non-tender, lungs clear Cardiovascular: normal peripheral pulses, normal rate Abdomen: normal bowel sounds, soft, non tender, no scars Extremities: no clubbing Skin: no rash Microbiology Date/Time Source Procedure Growth Status 12/02/18 19:40 Blood Blood Culture - Preliminary NO GROWTH AFTER 24 HOURS Resulted 12/02/18 19:30 Blood Blood Culture - Preliminary NO GROWTH AFTER 24 HOURS Resulted 12/02/18 19:40 Urine,Clean Catch Urine Culture - Preliminary Resulted Laboratory Tests 12/04/18 08:05: White Blood Count 9.1, Red Blood Count 4.97, Hemoglobin 10.6L, Hematocrit 35.6L , Mean Corpuscular Volume 72L, Mean Corpuscular Hemoglobin 21.4L, Mean Corpuscular Hemoglobin Concent 29.8L, Red Cell Distribution Width 16.8H, Platelet Count 294, Mean Platelet Volume 5.8L, Neutrophils (%) (Auto) 69.2, Lymphocytes (%) (Auto) 21.8, Monocytes (%) (Auto) 4.2, Eosinophils (%) (Auto) 4.4H, Basophils (%) (Auto) 0.3, Sodium Level 139, Potassium Level 3.3L, Chloride Level 102, Carbon Dioxide Level 31, Anion Gap 6, Blood Urea Nitrogen 15 , Creatinine 0.5L, Estimat Glomerular Filtration Rate > 60, Glucose Level 157H, Calcium Level 8.5, Total Bilirubin 0.2, Aspartate Amino Transf (AST/SGOT) 9L, Alanine Aminotransferase (ALT/SGPT) < 6L, Alkaline Phosphatase 79, Pro-B-Type Natriuretic Peptide 148H, Total Protein 8.0, Albumin 2.7L, Globulin 5.3, Albumin /Globulin Ratio 0.5L, Vancomycin Level Trough 12.2H Current Medications Medications (Trade) Dose Ordered Sig/Sandeep Route PRN Reason Start Time Stop Time Status Last Admin Dose Admin Acetaminophen (Tylenol) 650 mg Q4H PRN ORAL fever 12/02/18 22:30 01/01/19 22:29 Albuterol/ Ipratropium (Albuterol/ Ipratropium) 3 ml Q4H PRN HHN Shortness of Breath 12/02/18 22:30 12/07/18 22:29 Cefepime HCl 1 gm/ Dextrose 55 ml @ 110 mls/hr EVERY 12 HOURS IVPB 12/03/18 13:00 12/10/18 12:59 12/04/18 08:26 Ciprofloxacin (Cipro 500mg tab) 500 mg EVERY 12 HOURS ORAL 12/03/18 12:00 12/10/18 11:59 12/04/18 08:38 Heparin Sodium (Porcine) (Heparin 5000 units/ml) 5,000 units EVERY 12 HOURS SUBQ 12/03/18 09:00 01/02/19 08:59 12/04/18 08:39 Morphine Sulfate (Morphine Sulfate) 2 mg Q4H PRN IVP Moderate Pain (Pain Scale 4-6) 12/02/18 22:30 12/09/18 22:29 12/03/18 20:58 Ondansetron HCl (Zofran) 4 mg Q6H PRN IVP Nausea & Vomiting 12/02/18 22:30 01/01/19 22:29 Phenazopyridine HCl (Pyridium) 100 mg DAILY PRN ORAL dysuria 12/02/18 22:30 01/01/19 22:29 Polyethylene Glycol (Miralax) 17 gm DAILYPRN PRN ORAL Constipation 12/02/18 22:30 01/01/19 22:29 Temazepam (Restoril) 15 mg HSPRN PRN ORAL Insomnia 12/02/18 22:30 12/09/18 22:29 12/02/18 23:29 Vancomycin HCl (Vanco rx to dose) 1 ea DAILY PRN MISC VANC MONITORING 12/02/18 23:00 01/01/19 22:59 Vancomycin HCl 750 mg/Dextrose 275 ml @ 183.333 mls/hr Q12H IVPB 12/03/18 09:00 12/08/18 08:59 12/04/18 10:53 Chyna Pryor MD December 04, 2018 12:49
--- NOTE | 2018-12-04 13:54 | Diagnostic Imaging Report ---
Indication: Dyspnea Comparison: 12/02/2018 A single view chest radiograph was obtained. Findings: Evidence of worsening vascular congestion with prominent vascularity and heart size. No change otherwise. IMPRESSION: Worsening CHF
[2018-12-04 16:00] VITALS: BP 121/80
--- NOTE | 2018-12-04 16:44 | Surgery Progress Note ---
Surgery Progress Note Subjective Additional Comments no acute events. comfortable. stable. labs noted. leukocytosis resolved. Objective Last 24 Hour Vital Signs Date Time Temp Pulse Resp B/P (MAP) Pulse Ox O2 Delivery O2 Flow Rate FiO2 12/04/18 12:00 98.2 78 20 120/60 (80) 100 12/04/18 09:00 Nasal Cannula 2.0 12/04/18 08:00 97.8 76 18 105/59 (74) 98 12/04/18 05:48 69 12 98 12/04/18 04:00 97.8 65 16 105/66 (79) 65 12/04/18 02:42 70 15 98 Facial 30 12/04/18 01:30 75 12 98 Facial 30 12/04/18 00:00 97.6 78 16 110/53 (72) 78 12/03/18 23:00 76 12 98 Facial 30 12/03/18 21:00 Nasal Cannula 2.0 12/03/18 20:00 96.0 89 19 129/72 (91) 89 I&O Intake and Output 12/03/18 12/04/18 19:00 07:00 Intake Total 600 ml Output Total 1600 ml 800 ml Balance -1000 ml -800 ml Intake Oral 600 ml Output Urine Total 1600 ml 800 ml Dressing: saturated Wound: other Drains: other Cardiovascular: RSR Respiratory: decreased breath sounds Abdomen: soft, non-tender, present bowel sounds, non-distended Extremities: no cyanosis Laboratory Tests Test 12/04/18 08:05 White Blood Count 9.1 K/UL (4.8-10.8) Red Blood Count 4.97 M/UL (4.20-5.40) Hemoglobin 10.6 G/DL (12.0-16.0) L Hematocrit 35.6 % (37.0-47.0) L Mean Corpuscular Volume 72 FL (80-99) L Mean Corpuscular Hemoglobin 21.4 PG (27.0-31.0) L Mean Corpuscular Hemoglobin Concent 29.8 G/DL (32.0-36.0) L Red Cell Distribution Width 16.8 % (11.6-14.8) H Platelet Count 294 K/UL (150-450) Mean Platelet Volume 5.8 FL (6.5-10.1) L Neutrophils (%) (Auto) 69.2 % (45.0-75.0) Lymphocytes (%) (Auto) 21.8 % (20.0-45.0) Monocytes (%) (Auto) 4.2 % (1.0-10.0) Eosinophils (%) (Auto) 4.4 % (0.0-3.0) H Basophils (%) (Auto) 0.3 % (0.0-2.0) Sodium Level 139 MMOL/L (136-145) Potassium Level 3.3 MMOL/L (3.5-5.1) L Chloride Level 102 MMOL/L (98-107) Carbon Dioxide Level 31 MMOL/L (21-32) Anion Gap 6 mmol/L (5-15) Blood Urea Nitrogen 15 mg/dL (7-18) Creatinine 0.5 MG/DL (0.55-1.30) L Estimat Glomerular Filtration Rate > 60 mL/min (>60) Glucose Level 157 MG/DL (74-106) H Calcium Level 8.5 MG/DL (8.5-10.1) Total Bilirubin 0.2 MG/DL (0.2-1.0) Aspartate Amino Transf (AST/SGOT) 9 U/L (15-37) L Alanine Aminotransferase (ALT/SGPT) < 6 U/L (12-78) L Alkaline Phosphatase 79 U/L (46-116) Pro-B-Type Natriuretic Peptide 148 pg/mL (0-125) H Total Protein 8.0 G/DL (6.4-8.2) Albumin 2.7 G/DL (3.4-5.0) L Globulin 5.3 g/dL Albumin/Globulin Ratio 0.5 (1.0-2.7) L Vancomycin Level Trough 12.2 ug/mL (5.0-12.0) H Plan Problems: (1) Paraplegia (2) Sepsis Assessment & Plan: HD stable, leukocytosis, abnormal labs pending blood cultures on IV Abx as per ID trend labs (3) ATN (acute tubular necrosis) (4) Suprapubic catheter (5) Restrictive lung disease due to kyphoscoliosis (6) Hyperkalemia (7) Cellulitis (8) Pulmonary edema (9) Hypotension (10) Urinary catheter in place (11) Encounter for care or replacement of suprapubic tube (12) Blocked suprapubic catheter (13) Decubitus skin ulcer Assessment & Plan: Patient presented on admission with resolving 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 Historical scars noted to lumbar area. Base of wound at sacrum with scattered slough, Bone is palpable , otherwise pink. (+) maceration along borders. No odor noted. Small amt serous exudate. Hyperpigmentation noted periwound. Both heels are soft with dry peeling skin. Both heels are blanchable. Pt presented on admission with resolving pressure injury to sacrum with pink epithelial and # 2 full thickness pressure injuries within base of wound at R and L sacrum. (L)sacral wound moist viable ,macerated borders.[place] epithelial periwound (L)1cm x (W)0.8cm x (D)0.4cm. R sacrum full thickness pressure injury .Base of wound moist-viable ,macerated borders, [place] epithelial periwound. Multiple partial thickness wounds scattered to R and L buttocks and both ischial l areas. Both heels are soft but pink and blanchable. No evidence of Skin breakdown noted to all other bony prominences. Tx.Plan: Cleanse wounds R and L sacrum with Saline. Apply Therahoney to wounds. Apply Triad Paste to surrounding areas. Cover with Optifoam drsg. Change every 3 days and prn. Apply Cavilon Skin Barrier to R and L heels and Malleoli daily. Reposition at least every 2hours or as tolerated. APM/JOSE Mattress overlay. Off-load heels with pillow. Nutritional optimization for wound healing Nutrition consult Labs noted (14) Spina bifida Assessment & Plan: DAILY ESTIMATED NEEDS: Needs based on wound, paraplegia/ 63kg 27-32kcal/kg kcals/kg 1462-6901 total kcals 1.25-1.5 g protein/kg 79-95 g total protein 25-30 mL/kg 2933-5310 total fluid mLs NUTRITION DIAGNOSIS: Increased kcal/pro/micronutrients needs R/T wound healing as evidenced by pt is paraplegic, h/o spina bifida, adm w/ sacral wound/ unstageable, R buttock full thickness wound, full WC eval is pending. PO DIET RECOMMENDATIONS: REGULAR/ texture as tolerated or per VP PRODUCT ---- ADDITIONAL RECOMMENDATIONS: 1) Wound healing: GREGG BID + MVI x 1, Vit C 500mg QD 2) Obtain calibrated bedscale wt 3) Monitor for continued good PO intake 4) F/up w/ WC eval and H&P 5) VP PRODUCT eval as appropriate (15) UTI (urinary tract infection) Saad Neves December 04, 2018 16:44
--- NOTE | 2018-12-04 18:35 | Infectious Diseases Prog Note ---
Assessment/Plan Assessment/Plan Abx: IV Vancomycin 12/02- Assessment: Sepsis-2ry to UTI -u/a wbc tnct, nit +, leuk +3; ucx p -CXR: No acute cardiopulmonary abnormalities. No change -Bcx NTD Low grade fever; improving Leukocytosis, SP hx of UTI -09/2018 ucx >100k P. mirabilis (R amp, bactrim; otherwise S); >100k PsA (I cefepime; R ceftazidime), >100k E. fecalis (S Amp, vanco, nitrofurantoin) --MRSA 02/2018 -S. 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 Will continue to follow along with you. Discussed with RN. Subjective Allergies: Coded Allergies: PENICILLIN G (Verified Allergy, Unknown, 12/02/18) Tolerates cabapenem, cephalosporin PENICILLINS (Unverified Allergy, Unknown, 12/02/18) Subjective afebrile >36hrs bcxNTD ucx p leukocytosis resolved Objective Vital Signs Last 24 Hour Vital Signs Date Time Temp Pulse Resp B/P (MAP) Pulse Ox O2 Delivery O2 Flow Rate FiO2 12/04/18 16:00 98.8 76 20 121/80 (94) 100 12/04/18 12:00 98.2 78 20 120/60 (80) 100 12/04/18 09:00 Nasal Cannula 2.0 12/04/18 08:00 97.8 76 18 105/59 (74) 98 12/04/18 05:48 69 12 98 12/04/18 04:00 97.8 65 16 105/66 (79) 65 12/04/18 02:42 70 15 98 Facial 30 12/04/18 01:30 75 12 98 Facial 30 12/04/18 00:00 97.6 78 16 110/53 (72) 78 12/03/18 23:00 76 12 98 Facial 30 12/03/18 21:00 Nasal Cannula 2.0 12/03/18 20:00 96.0 89 19 129/72 (91) 89 Height (Feet): 5 Height (Inches): 3.00 Weight (Pounds): 139 Objective General Appearance: no apparent distress, alertnon-toxic HEENT: normocephalic, atraumatic bilateral eye PERRL normal pharynx Neck: full range of motion, supple/symm/no masses Respiratory: chest non-tender, lungs clear, normal breath sounds, speaking full sentences Cardiovascular : regular rate, rhythm, no edema Gastrointestinal: normal bowel sounds, non tender, soft, non-distended, no guarding, no rebound Genitourinary: normal inspection, no CVA tenderness Musculoskeletal: back normal Neurologic: alert, oriented x3, responsive, motor strength/tone normal, sensory intact, speech normal Skin: normal color, no rash, warm/dry, well hydrated Microbiology Date/Time Source Procedure Growth Status 12/02/18 19:40 Blood Blood Culture - Preliminary NO GROWTH AFTER 24 HOURS Resulted 12/02/18 19:30 Blood Blood Culture - Preliminary NO GROWTH AFTER 24 HOURS Resulted 12/02/18 19:40 Urine,Clean Catch Urine Culture - Preliminary Resulted Laboratory Tests Test 12/04/18 08:05 White Blood Count 9.1 K/UL (4.8-10.8) Red Blood Count 4.97 M/UL (4.20-5.40) Hemoglobin 10.6 G/DL (12.0-16.0) L Hematocrit 35.6 % (37.0-47.0) L Mean Corpuscular Volume 72 FL (80-99) L Mean Corpuscular Hemoglobin 21.4 PG (27.0-31.0) L Mean Corpuscular Hemoglobin Concent 29.8 G/DL (32.0-36.0) L Red Cell Distribution Width 16.8 % (11.6-14.8) H Platelet Count 294 K/UL (150-450) Mean Platelet Volume 5.8 FL (6.5-10.1) L Neutrophils (%) (Auto) 69.2 % (45.0-75.0) Lymphocytes (%) (Auto) 21.8 % (20.0-45.0) Monocytes (%) (Auto) 4.2 % (1.0-10.0) Eosinophils (%) (Auto) 4.4 % (0.0-3.0) H Basophils (%) (Auto) 0.3 % (0.0-2.0) Sodium Level 139 MMOL/L (136-145) Potassium Level 3.3 MMOL/L (3.5-5.1) L Chloride Level 102 MMOL/L (98-107) Carbon Dioxide Level 31 MMOL/L (21-32) Anion Gap 6 mmol/L (5-15) Blood Urea Nitrogen 15 mg/dL (7-18) Creatinine 0.5 MG/DL (0.55-1.30) L Estimat Glomerular Filtration Rate > 60 mL/min (>60) Glucose Level 157 MG/DL (74-106) H Calcium Level 8.5 MG/DL (8.5-10.1) Total Bilirubin 0.2 MG/DL (0.2-1.0) Aspartate Amino Transf (AST/SGOT) 9 U/L (15-37) L Alanine Aminotransferase (ALT/SGPT) < 6 U/L (12-78) L Alkaline Phosphatase 79 U/L (46-116) Pro-B-Type Natriuretic Peptide 148 pg/mL (0-125) H Total Protein 8.0 G/DL (6.4-8.2) Albumin 2.7 G/DL (3.4-5.0) L Globulin 5.3 g/dL Albumin/Globulin Ratio 0.5 (1.0-2.7) L Vancomycin Level Trough 12.2 ug/mL (5.0-12.0) H Current Medications Medications (Trade) Dose Ordered Sig/Sandeep Route PRN Reason Start Time Stop Time Status Last Admin Dose Admin Acetaminophen (Tylenol) 650 mg Q4H PRN ORAL fever 12/02/18 22:30 01/01/19 22:29 Albuterol/ Ipratropium (Albuterol/ Ipratropium) 3 ml Q4H PRN HHN Shortness of Breath 12/02/18 22:30 12/07/18 22:29 Cefepime HCl 1 gm/ Dextrose 55 ml @ 110 mls/hr EVERY 12 HOURS IVPB 12/03/18 13:00 12/10/18 12:59 12/04/18 08:26 Ciprofloxacin (Cipro 500mg tab) 500 mg EVERY 12 HOURS ORAL 12/03/18 12:00 12/10/18 11:59 12/04/18 08:38 Heparin Sodium (Porcine) (Heparin 5000 units/ml) 5,000 units EVERY 12 HOURS SUBQ 12/03/18 09:00 01/02/19 08:59 12/04/18 08:39 Morphine Sulfate (Morphine Sulfate) 2 mg Q4H PRN IVP Moderate Pain (Pain Scale 4-6) 12/02/18 22:30 12/09/18 22:29 12/03/18 20:58 Ondansetron HCl (Zofran) 4 mg Q6H PRN IVP Nausea & Vomiting 12/02/18 22:30 01/01/19 22:29 Phenazopyridine HCl (Pyridium) 100 mg DAILY PRN ORAL dysuria 12/02/18 22:30 01/01/19 22:29 Polyethylene Glycol (Miralax) 17 gm DAILYPRN PRN ORAL Constipation 12/02/18 22:30 01/01/19 22:29 Temazepam (Restoril) 15 mg HSPRN PRN ORAL Insomnia 12/02/18 22:30 12/09/18 22:29 12/02/18 23:29 Vancomycin HCl (Vanco rx to dose) 1 ea DAILY PRN MISC VANC MONITORING 12/02/18 23:00 01/01/19 22:59 Vancomycin HCl 750 mg/Dextrose 275 ml @ 183.333 mls/hr Q12H IVPB 12/03/18 09:00 12/08/18 08:59 12/04/18 10:53 Joaquina Hill M.D. December 04, 2018 18:35
--- NOTE | 2018-12-04 19:30 | NUR ---
HAND-OFF: Report given to EMMA Wu.
--- NOTE | 2018-12-04 19:40 | NUR ---
NURSE NOTES: Pt is in bed, awake and verbal. No acute distress noted. No SOB. Pt's brother is by bedside. Brother had question regarding the chest x-ray, dr. Pryor's phone number given to pt's brother to contact. Wound dressing dry and intact. Suprapubic cath draining yellow urine. Bed locked low in position,side rails up and call light within reach. Bed alarm on.
[2018-12-04 20:00] VITALS: BP 148/83
--- NOTE | 2018-12-04 21:21 | NUR ---
RESPIRATORY NOTE: Pt placed on BiPAP for nightly use. Pt is on BiPAP 15/5, backup rate 12, 30%. Pt placed on a Facial mask, skin intact, no redness/irritations noted. Foam tape applied on pt's nosebridge/cheeks/chin to prevent any mask irritations. Pt alert/awake, follows commands. B/S guillermo. clear/diminished, nonproductive cough. BiPAP plugged into red outlet, alarms audible. Pt resting comfortably on current settings, in no apparent distress at this time. Will continue plan of care.
[2018-12-05] VITALS: BP 120/65
[2018-12-05 04:00] VITALS: BP 102/61
--- NOTE | 2018-12-05 05:00 | NUR ---
NURSE NOTES: Pt is on biPAP, no acute distress noted. No SOB. Vitals stable. Pt was turned at least q2hrs. Pt is on p200 matrass. Wound dressing dry and intact.
--- NOTE | 2018-12-05 07:10 | NUR ---
HAND-OFF: Report given to EMMA Pacheco.
--- NOTE | 2018-12-05 07:30 | NUR ---
NURSE NOTES: Received pt from RN SONIA. Pt is forgetful and orient x3. pt has NC 2LMP. pt has supra pubic cath is running well. pt has DILLON 22G SL.all needs attended, bed is locked and is in the lowest position, call light within easy reach. will continue to monitor.
[2018-12-05 08:00] VITALS: BP 121/59
[2018-12-05] MEDS: Ciprofloxacin 500mg tab ORAL SCH ×2 (08:50→20:17)
[2018-12-05] MEDS: Vancomycin 750mg/D5W 275ml IVPB SCH ×2 (08:51)
[2018-12-05] MEDS: Cefepime HCl 1 GM in D5W 55 ML IVPB SCH ×2 (08:51→20:13)
[2018-12-05] MEDS: Heparin 5000 units/ml inj SUBQ SCH ×2 (08:52→20:14)
--- NOTE | 2018-12-05 11:56 | Pulmonology Progress Note ---
Assessment/Plan Problems: (1) Sepsis (2) UTI (urinary tract infection) (3) Decubitus skin ulcer (4) Restrictive lung disease due to kyphoscoliosis (5) Suprapubic catheter (6) Paraplegia (7) Spina bifida Assessment/Plan c xr showing pulmonary edema, will give one dose of laxis and repeat cxr in am. BC negative so far urine cultures pending, two strains of GNR wbc decreasing K supplement check electrolytes in am dc home soon, once urine cultures are available dvt prophylaxis. Subjective ROS Limited/Unobtainable: No Interval Events: no new complains, comfortable Allergies: Coded Allergies: PENICILLIN G (Verified Allergy, Unknown, 12/02/18) Tolerates cabapenem, cephalosporin PENICILLINS (Unverified Allergy, Unknown, 12/02/18) Objective Last 24 Hour Vital Signs Date Time Temp Pulse Resp B/P (MAP) Pulse Ox O2 Delivery O2 Flow Rate FiO2 12/05/18 09:00 Nasal Cannula 2.0 12/05/18 08:00 97.5 67 20 121/59 (79) 100 12/05/18 07:03 67 98 12/05/18 07:01 Bi-pap 30 12/05/18 07:01 67 13 99 Facial 30 12/05/18 07:01 99 Bi-pap 30 12/05/18 05:26 70 15 97 Facial 30 12/05/18 04:00 97.1 75 18 102/61 (75) 98 12/05/18 02:53 69 14 98 Facial 30 12/05/18 01:27 68 14 98 Facial 30 12/05/18 00:00 97.8 76 18 120/65 (83) 98 12/04/18 23:12 67 15 97 Facial 30 12/04/18 21:19 68 15 99 Facial 30 12/04/18 21:00 Nasal Cannula 2.0 12/04/18 20:20 Nasal Cannula 2.0 28 12/04/18 20:20 99 Nasal Cannula 2.0 28 12/04/18 20:00 98.6 94 18 148/83 (104) 98 12/04/18 16:00 98.8 76 20 121/80 (94) 100 12/04/18 12:00 98.2 78 20 120/60 (80) 100 Intake and Output 12/04/18 12/05/18 18:59 06:59 Intake Total 810.000 ml 330.000 ml Output Total 1725 ml 1050 ml Balance -915.000 ml -720.000 ml Intake Oral 480 ml IV Total 330.000 ml 330.000 ml Output Urine Total 1725 ml 1050 ml General Appearance: WD/WN HEENT: normocephalic, atraumatic Respiratory/Chest: chest wall non-tender, lungs clear Breasts: no masses Cardiovascular: normal peripheral pulses, normal rate, regular rhythm Abdomen: normal bowel sounds, soft, non tender Genitourinary: normal external genitalia 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 Complete Current Medications Medications (Trade) Dose Ordered Sig/Sandeep Route PRN Reason Start Time Stop Time Status Last Admin Dose Admin Acetaminophen (Tylenol) 650 mg Q4H PRN ORAL fever 12/02/18 22:30 01/01/19 22:29 Albuterol/ Ipratropium (Albuterol/ Ipratropium) 3 ml Q4H PRN HHN Shortness of Breath 12/02/18 22:30 12/07/18 22:29 Cefepime HCl 1 gm/ Dextrose 55 ml @ 110 mls/hr EVERY 12 HOURS IVPB 12/03/18 13:00 12/10/18 12:59 12/05/18 08:51 Ciprofloxacin (Cipro 500mg tab) 500 mg EVERY 12 HOURS ORAL 12/03/18 12:00 12/10/18 11:59 12/05/18 08:50 Heparin Sodium (Porcine) (Heparin 5000 units/ml) 5,000 units EVERY 12 HOURS SUBQ 12/03/18 09:00 01/02/19 08:59 12/05/18 08:52 Morphine Sulfate (Morphine Sulfate) 2 mg Q4H PRN IVP Moderate Pain (Pain Scale 4-6) 12/02/18 22:30 12/09/18 22:29 12/03/18 20:58 Ondansetron HCl (Zofran) 4 mg Q6H PRN IVP Nausea & Vomiting 12/02/18 22:30 01/01/19 22:29 Phenazopyridine HCl (Pyridium) 100 mg DAILY PRN ORAL dysuria 12/02/18 22:30 01/01/19 22:29 Polyethylene Glycol (Miralax) 17 gm DAILYPRN PRN ORAL Constipation 12/02/18 22:30 01/01/19 22:29 Temazepam (Restoril) 15 mg HSPRN PRN ORAL Insomnia 12/02/18 22:30 12/09/18 22:29 12/04/18 20:41 Vancomycin HCl (Vanco rx to dose) 1 ea DAILY PRN MISC VANC MONITORING 12/02/18 23:00 01/01/19 22:59 Vancomycin HCl 750 mg/Dextrose 275 ml @ 183.333 mls/hr Q12H IVPB 12/03/18 09:00 12/08/18 08:59 12/05/18 08:51 Chyna Pryor MD December 05, 2018 11:56
--- NOTE | 2018-12-05 11:58 | Infectious Diseases Prog Note ---
Assessment/Plan Assessment/Plan Abx: IV Vancomycin 12/02- Assessment: Sepsis-2ry to UTI -u/a wbc tnct, nit +, leuk +3; ucx >100k GNB #1, >100k GNB #2 -CXR: No acute cardiopulmonary abnormalities. No change -Bcx NTD Low grade fever; improving Leukocytosis, SP hx of UTI -09/2018 ucx >100k P. mirabilis (R amp, bactrim; otherwise S); >100k PsA (I cefepime; R ceftazidime), >100k E. fecalis (S Amp, vanco, nitrofurantoin) --MRSA 02/2018 -S. 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 Will continue to follow along with you. Discussed with RN. Subjective Allergies: Coded Allergies: PENICILLIN G (Verified Allergy, Unknown, 12/02/18) Tolerates cabapenem, cephalosporin PENICILLINS (Unverified Allergy, Unknown, 12/02/18) Subjective afebrile >48hrs bcxNTD no leukocytosis Objective Vital Signs Last 24 Hour Vital Signs Date Time Temp Pulse Resp B/P (MAP) Pulse Ox O2 Delivery O2 Flow Rate FiO2 12/05/18 09:00 Nasal Cannula 2.0 12/05/18 08:00 97.5 67 20 121/59 (79) 100 12/05/18 07:03 67 98 12/05/18 07:01 Bi-pap 30 12/05/18 07:01 67 13 99 Facial 30 12/05/18 07:01 99 Bi-pap 30 12/05/18 05:26 70 15 97 Facial 30 12/05/18 04:00 97.1 75 18 102/61 (75) 98 12/05/18 02:53 69 14 98 Facial 30 12/05/18 01:27 68 14 98 Facial 30 12/05/18 00:00 97.8 76 18 120/65 (83) 98 12/04/18 23:12 67 15 97 Facial 30 12/04/18 21:19 68 15 99 Facial 30 12/04/18 21:00 Nasal Cannula 2.0 12/04/18 20:20 Nasal Cannula 2.0 28 12/04/18 20:20 99 Nasal Cannula 2.0 28 12/04/18 20:00 98.6 94 18 148/83 (104) 98 12/04/18 16:00 98.8 76 20 121/80 (94) 100 12/04/18 12:00 98.2 78 20 120/60 (80) 100 Height (Feet): 5 Height (Inches): 3.00 Weight (Pounds): 139 Objective General Appearance: no apparent distress, alertnon-toxic HEENT: normocephalic, atraumatic bilateral eye PERRL normal pharynx Neck: full range of motion, supple/symm/no masses Respiratory: chest non-tender, lungs clear, normal breath sounds, speaking full sentences Cardiovascular : regular rate, rhythm, no edema Gastrointestinal: normal bowel sounds, non tender, soft, non-distended, no guarding, no rebound Genitourinary: normal inspection, no CVA tenderness Musculoskeletal: back normal Neurologic: alert, oriented x3, responsive, motor strength/tone normal, sensory intact, speech normal Skin: normal color, no rash, warm/dry, well hydrated Microbiology Date/Time Source Procedure Growth Status 12/02/18 19:40 Blood Blood Culture - Preliminary NO GROWTH AFTER 48 HOURS Resulted 12/02/18 19:30 Blood Blood Culture - Preliminary NO GROWTH AFTER 48 HOURS Resulted 12/02/18 19:40 Urine,Clean Catch Urine Culture - Preliminary Gram Negative Bacillus 1 Gram Negative Bacillus 2 Resulted 12/02/18 21:33 Rectum - Final NO CARBAPENEM-RESISTANT ENTEROBACTERI... Complete Current Medications Medications (Trade) Dose Ordered Sig/Sandeep Route PRN Reason Start Time Stop Time Status Last Admin Dose Admin Acetaminophen (Tylenol) 650 mg Q4H PRN ORAL fever 12/02/18 22:30 01/01/19 22:29 Albuterol/ Ipratropium (Albuterol/ Ipratropium) 3 ml Q4H PRN HHN Shortness of Breath 12/02/18 22:30 12/07/18 22:29 Cefepime HCl 1 gm/ Dextrose 55 ml @ 110 mls/hr EVERY 12 HOURS IVPB 12/03/18 13:00 12/10/18 12:59 12/05/18 08:51 Ciprofloxacin (Cipro 500mg tab) 500 mg EVERY 12 HOURS ORAL 12/03/18 12:00 12/10/18 11:59 12/05/18 08:50 Furosemide (Lasix) 20 mg ONCE ONCE IV 12/05/18 12:00 12/05/18 12:01 UNV Heparin Sodium (Porcine) (Heparin 5000 units/ml) 5,000 units EVERY 12 HOURS SUBQ 12/03/18 09:00 01/02/19 08:59 12/05/18 08:52 Morphine Sulfate (Morphine Sulfate) 2 mg Q4H PRN IVP Moderate Pain (Pain Scale 4-6) 12/02/18 22:30 12/09/18 22:29 12/03/18 20:58 Ondansetron HCl (Zofran) 4 mg Q6H PRN IVP Nausea & Vomiting 12/02/18 22:30 01/01/19 22:29 Phenazopyridine HCl (Pyridium) 100 mg DAILY PRN ORAL dysuria 12/02/18 22:30 01/01/19 22:29 Polyethylene Glycol (Miralax) 17 gm DAILYPRN PRN ORAL Constipation 12/02/18 22:30 01/01/19 22:29 Temazepam (Restoril) 15 mg HSPRN PRN ORAL Insomnia 12/02/18 22:30 12/09/18 22:29 12/04/18 20:41 Vancomycin HCl (Vanco rx to dose) 1 ea DAILY PRN MISC VANC MONITORING 12/02/18 23:00 01/01/19 22:59 Vancomycin HCl 750 mg/Dextrose 275 ml @ 183.333 mls/hr Q12H IVPB 12/03/18 09:00 12/08/18 08:59 12/05/18 08:51 Joaquina Hill M.D. December 05, 2018 11:58
[2018-12-05 12:00] VITALS: BP 121/75
--- NOTE | 2018-12-05 14:40 | Surgery Progress Note ---
Surgery Progress Note Subjective Additional Comments no acute events. resting comfortable. no complaints. no n/v/f/c. labs noted Objective Last 24 Hour Vital Signs Date Time Temp Pulse Resp B/P (MAP) Pulse Ox O2 Delivery O2 Flow Rate FiO2 12/05/18 12:00 98.2 73 20 121/75 (90) 98 12/05/18 09:00 Nasal Cannula 2.0 12/05/18 08:00 97.5 67 20 121/59 (79) 100 12/05/18 07:03 67 98 12/05/18 07:01 Bi-pap 30 12/05/18 07:01 67 13 99 Facial 30 12/05/18 07:01 99 Bi-pap 30 12/05/18 05:26 70 15 97 Facial 30 12/05/18 04:00 97.1 75 18 102/61 (75) 98 12/05/18 02:53 69 14 98 Facial 30 12/05/18 01:27 68 14 98 Facial 30 12/05/18 00:00 97.8 76 18 120/65 (83) 98 12/04/18 23:12 67 15 97 Facial 30 12/04/18 21:19 68 15 99 Facial 30 12/04/18 21:00 Nasal Cannula 2.0 12/04/18 20:20 Nasal Cannula 2.0 28 12/04/18 20:20 99 Nasal Cannula 2.0 28 12/04/18 20:00 98.6 94 18 148/83 (104) 98 12/04/18 16:00 98.8 76 20 121/80 (94) 100 I&O Intake and Output 12/04/18 12/05/18 19:00 07:00 Intake Total 810.000 ml 330.000 ml Output Total 1725 ml 1050 ml Balance -915.000 ml -720.000 ml Intake Oral 480 ml IV Total 330.000 ml 330.000 ml Output Urine Total 1725 ml 1050 ml Dressing: saturated Wound: other Drains: other Cardiovascular: RSR Respiratory: clear Abdomen: soft, present bowel sounds, non-distended Extremities: no tenderness, no cyanosis Plan Problems: (1) Paraplegia (2) Sepsis Assessment & Plan: HD stable, leukocytosis resolved, abnormal labs cultures ntoed urine with gram negative on IV Abx as per ID trend labs (3) ATN (acute tubular necrosis) (4) Suprapubic catheter (5) Restrictive lung disease due to kyphoscoliosis (6) Hyperkalemia (7) Cellulitis (8) Pulmonary edema (9) Hypotension (10) Urinary catheter in place (11) Encounter for care or replacement of suprapubic tube (12) Blocked suprapubic catheter (13) Decubitus skin ulcer Assessment & Plan: Patient presented on admission with resolving 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 Historical scars noted to lumbar area. Base of wound at sacrum with scattered slough, Bone is palpable , otherwise pink. (+) maceration along borders. No odor noted. Small amt serous exudate. Hyperpigmentation noted periwound. Both heels are soft with dry peeling skin. Both heels are blanchable. Pt presented on admission with resolving pressure injury to sacrum with pink epithelial and # 2 full thickness pressure injuries within base of wound at R and L sacrum. (L)sacral wound moist viable ,macerated borders.[place] epithelial periwound (L)1cm x (W)0.8cm x (D)0.4cm. R sacrum full thickness pressure injury .Base of wound moist-viable ,macerated borders, [place] epithelial periwound. Multiple partial thickness wounds scattered to R and L buttocks and both ischial l areas. Both heels are soft but pink and blanchable. No evidence of Skin breakdown noted to all other bony prominences. Tx.Plan: Cleanse wounds R and L sacrum with Saline. Apply Therahoney to wounds. Apply Triad Paste to surrounding areas. Cover with Optifoam drsg. Change every 3 days and prn. Apply Cavilon Skin Barrier to R and L heels and Malleoli daily. Reposition at least every 2hours or as tolerated. APM/JOSE Mattress overlay. Off-load heels with pillow. Nutritional optimization for wound healing Nutrition consult Labs noted (14) Spina bifida Assessment & Plan: DAILY ESTIMATED NEEDS: Needs based on wound, paraplegia/ 63kg 27-32kcal/kg kcals/kg 5695-8615 total kcals 1.25-1.5 g protein/kg 79-95 g total protein 25-30 mL/kg 3441-9365 total fluid mLs NUTRITION DIAGNOSIS: Increased kcal/pro/micronutrients needs R/T wound healing as evidenced by pt is paraplegic, h/o spina bifida, adm w/ sacral wound/ unstageable, R buttock full thickness wound, full WC eval is pending. PO DIET RECOMMENDATIONS: REGULAR/ texture as tolerated or per EVENT SECURITY OFFICER ---- ADDITIONAL RECOMMENDATIONS: 1) Wound healing: GREGG BID + MVI x 1, Vit C 500mg QD 2) Obtain calibrated bedscale wt 3) Monitor for continued good PO intake 4) F/up w/ WC eval and H&P 5) EVENT SECURITY OFFICER eval as appropriate (15) UTI (urinary tract infection) Saad Neves December 05, 2018 14:40
[2018-12-05 16:00] VITALS: BP 125/78
--- NOTE | 2018-12-05 19:35 | NUR ---
HAND-OFF: Report given to EMMA FALL.
[2018-12-05 20:00] VITALS: BP 134/87
--- NOTE | 2018-12-05 20:10 | NUR ---
NURSE NOTES: Received patient awake in bed, no s/s of acute distress, no c/o pain at this time. Suprapubic catheter noted, urine light yellow. IV access asymptomatic, on saline lock. Fall and safety precautions taken. Sister Karolyn added to contact list. Contact info written on face sheet in patient's paper chart.
[2018-12-06] VITALS: BP 126/72
[2018-12-06 04:00] VITALS: BP 121/56
[2018-12-06 04:39] LABS: APPEARANCE,URINE SLIGHTLY CLOUDY; BILIRUBIN, URINE NEGATIVE (NEGATIVE); COLOR,URINE PALE YELLOW; GLUCOSE, URINE (UA) NEGATIVE (NEGATIVE); KETONES,URINE NEGATIVE (NEGATIVE); LEUKOCYTE ESTERASE ,URINE 3+ (NEGATIVE); NITRITE,URINE POSITIVE (NEGATIVE); PH,URINE 7 (4.5-8.0); PROTEIN,URINE 3+ (NEGATIVE); UROBILINOGEN,URINE NORMAL MG/DL (0.0-1.0)
--- NOTE | 2018-12-06 07:21 | NUR ---
HAND-OFF: Report given to EMMA Pacheco.
--- NOTE | 2018-12-06 07:30 | NUR ---
NURSE NOTES: Received pt from EMMA FALL. Pt is forgetful and orient x3. pt has NC 2LMP. pt has supra pubic cath is running well. pt has DILLON 22G SL.all needs attended, bed is locked and is in the lowest position, call light within easy reach. will continue to monitor.
[2018-12-06 07:37] LABS: BASOPHILS % (AUTO) 0.6 % (0.0-2.0); HEMATOCRIT 34.1 % (37.0-47.0); HEMOGLOBIN 10.4 G/DL (12.0-16.0); LYMPHOCYTES % (AUTO) 22.4 % (20.0-45.0); MEAN CORPUSCULAR VOLUME 71 FL (80-99); MONOCYTES % (AUTO) 5.6 % (1.0-10.0); NEUTROPHILS % (AUTO) 67.5 % (45.0-75.0); PLATELET COUNT 328 K/UL (150-450); RED BLOOD COUNT 4.82 M/UL (4.20-5.40); RED CELL DISTRIBUTION WIDTH 17.1 % (11.6-14.8); WHITE BLOOD COUNT 9.3 K/UL (4.8-10.8)
[2018-12-06 07:59] LABS: ALANINE AMINOTRANSFERASE 9 U/L (12-78); ALBUMIN 2.9 G/DL (3.4-5.0); ALBUMIN/GLOBULIN RATIO 0.6 (1.0-2.7); ALKALINE PHOSPHATASE 82 U/L (46-116); ANION GAP 5 mmol/L (5-15); ASPARTATE AMINO TRANSFERASE 10 U/L (15-37); BILIRUBIN,TOTAL 0.2 MG/DL (0.2-1.0); BLOOD UREA NITROGEN 15 mg/dL (7-18); CALCIUM 8.8 MG/DL (8.5-10.1); CARBON DIOXIDE 34 MMOL/L (21-32); CHLORIDE 102 MMOL/L (98-107); CREATININE 0.4 MG/DL (0.55-1.30); POTASSIUM 3.9 MMOL/L (3.5-5.1); SODIUM 141 MMOL/L (136-145)
[2018-12-06 08:00] VITALS: BP 117/63
--- NOTE | 2018-12-06 08:55 | NUR ---
RADIOLOGY DEPT.,CHEST X-RAY DONE.-P.DYE
[2018-12-06] MEDS: Cefepime HCl 1 GM in D5W 55 ML IVPB SCH (09:08)
[2018-12-06] MEDS: Ciprofloxacin 500mg tab ORAL SCH (09:08)
[2018-12-06] MEDS: Heparin 5000 units/ml inj SUBQ SCH (09:08)
[2018-12-06 11:57] VITALS: BP 125/72
--- NOTE | 2018-12-06 12:17 | Diagnostic Imaging Report ---
Indication: Dyspnea Comparison: 12/04/2018 A single view chest radiograph was obtained. Findings: Cardiomegaly is present. There is a thoracic spine stabilization rods noted. There is a right-sided FOOD PRODUCTION ASSOCIATE shunt. Pulmonary vascularity may be slightly improved compared to the previous occasion. Correlate clinically. IMPRESSION: Mild CHF may be slightly improved.
--- NOTE | 2018-12-06 12:44 | Pulmonology Progress Note ---
Assessment/Plan Problems: (1) Sepsis (2) UTI (urinary tract infection) (3) Decubitus skin ulcer (4) Restrictive lung disease due to kyphoscoliosis (5) Suprapubic catheter (6) Paraplegia (7) Spina bifida Assessment/Plan c xr showing pulmonary edema, better than yesterday BC negative so far urine cultures pending, two strains of GNR, Pseudomonas and Proteus wbc decreasing, normal now K supplement check electrolytes in am dc home in am dvt prophylaxis. Subjective ROS Limited/Unobtainable: No Constitutional: Reports: no symptoms HEENT: Repors: no symptoms Respiratory: Reports: no symptoms Allergies: Coded Allergies: PENICILLIN G (Verified Allergy, Unknown, 12/02/18) Tolerates cabapenem, cephalosporin PENICILLINS (Unverified Allergy, Unknown, 12/02/18) Objective Last 24 Hour Vital Signs Date Time Temp Pulse Resp B/P (MAP) Pulse Ox O2 Delivery O2 Flow Rate FiO2 12/06/18 11:57 99.3 77 18 125/72 (89) 96 12/06/18 09:00 Nasal Cannula 2.0 12/06/18 08:00 98.0 85 18 117/63 (81) 98 12/06/18 07:40 Nasal Cannula 2.0 28 12/06/18 07:40 99 Nasal Cannula 2.0 28 12/06/18 04:00 97.8 72 20 121/56 (77) 99 12/06/18 02:57 65 16 98 Facial 30 12/06/18 01:32 75 15 99 Facial 30 12/06/18 00:00 97.3 80 20 126/72 (90) 99 12/05/18 22:32 Bi-pap 30 12/05/18 22:32 99 Bi-pap 30 12/05/18 22:30 80 13 99 Facial 30 12/05/18 21:00 Nasal Cannula 2.0 12/05/18 20:00 98.7 85 18 134/87 (103) 99 12/05/18 16:00 98.1 74 20 125/78 (94) 99 Intake and Output 12/05/18 12/06/18 18:59 06:59 Intake Total 1330.000 ml Output Total 1300 ml 1700 ml Balance 30.000 ml -1700 ml Intake Oral 1000 ml IV Total 330.000 ml Output Urine Total 1300 ml 1700 ml # Voids 2 General Appearance: WD/WN HEENT: normocephalic Respiratory/Chest: chest wall non-tender, lungs clear Cardiovascular: normal peripheral pulses, normal rate, no JVD Abdomen: soft, non tender Genitourinary: normal external genitalia Extremities: no clubbing Skin: no rash Laboratory Tests 12/06/18 04:00: Urine Color Pale yellow, Urine Appearance Slightly cloudy, Urine pH 7, Urine Specific [place] 1.005, Urine Protein 3+H, Urine Glucose (UA) Negative, Urine Ketones Negative, Urine Blood 5+H, Urine Nitrite PositiveH, Urine Bilirubin Negative, Urine Urobilinogen Normal, Urine Leukocyte Esterase 3+H, Urine RBC 20- 30H, Urine WBC 60-80H, Urine Squamous Epithelial Cells Few, Urine Bacteria ManyH , Urine Mucus FewH 12/06/18 05:24: White Blood Count 9.3, Red Blood Count 4.82, Hemoglobin 10.4L, Hematocrit 34.1L , Mean Corpuscular Volume 71L, Mean Corpuscular Hemoglobin 21.6L, Mean Corpuscular Hemoglobin Concent 30.5L, Red Cell Distribution Width 17.1H, Platelet Count 328, Mean Platelet Volume 5.5L, Neutrophils (%) (Auto) 67.5, Lymphocytes (%) (Auto) 22.4, Monocytes (%) (Auto) 5.6, Eosinophils (%) (Auto) 4.0H, Basophils (%) (Auto) 0.6, Sodium Level 141, Potassium Level 3.9, Chloride Level 102, Carbon Dioxide Level 34H, Anion Gap 5, Blood Urea Nitrogen 15, Creatinine 0.4L, Estimat Glomerular Filtration Rate > 60, Glucose Level 118H, Calcium Level 8.8, Total Bilirubin 0.2, Aspartate Amino Transf (AST/SGOT) 10L, Alanine Aminotransferase (ALT/SGPT) 9L, Alkaline Phosphatase 82, Pro-B-Type Natriuretic Peptide 254H, Total Protein 7.9, Albumin 2.9L, Globulin 5.0, Albumin /Globulin Ratio 0.6L Current Medications Medications (Trade) Dose Ordered Sig/Sandeep Route PRN Reason Start Time Stop Time Status Last Admin Dose Admin Acetaminophen (Tylenol) 650 mg Q4H PRN ORAL fever 12/02/18 22:30 01/01/19 22:29 Albuterol/ Ipratropium (Albuterol/ Ipratropium) 3 ml Q4H PRN HHN Shortness of Breath 12/02/18 22:30 12/07/18 22:29 Cefepime HCl 1 gm/ Dextrose 55 ml @ 110 mls/hr EVERY 12 HOURS IVPB 12/03/18 13:00 12/10/18 12:59 12/06/18 09:08 Ciprofloxacin (Cipro 500mg tab) 500 mg EVERY 12 HOURS ORAL 12/03/18 12:00 12/10/18 11:59 12/06/18 09:08 Heparin Sodium (Porcine) (Heparin 5000 units/ml) 5,000 units EVERY 12 HOURS SUBQ 12/03/18 09:00 01/02/19 08:59 12/06/18 09:08 Morphine Sulfate (Morphine Sulfate) 2 mg Q4H PRN IVP Moderate Pain (Pain Scale 4-6) 12/02/18 22:30 12/09/18 22:29 12/03/18 20:58 Ondansetron HCl (Zofran) 4 mg Q6H PRN IVP Nausea & Vomiting 12/02/18 22:30 01/01/19 22:29 Phenazopyridine HCl (Pyridium) 100 mg DAILY PRN ORAL dysuria 12/02/18 22:30 01/01/19 22:29 Polyethylene Glycol (Miralax) 17 gm DAILYPRN PRN ORAL Constipation 12/02/18 22:30 01/01/19 22:29 Temazepam (Restoril) 15 mg HSPRN PRN ORAL Insomnia 12/02/18 22:30 12/09/18 22:29 12/04/18 20:41 Chyna Pryor MD December 06, 2018 12:44
[2018-12-06 16:00] VITALS: BP 114/72
--- NOTE | 2018-12-06 16:07 | Surgery Progress Note ---
Surgery Progress Note Subjective Additional Comments no acute events. exam stable. labs improved. blood cultures noted on IV Abx. comfortable. Objective Last 24 Hour Vital Signs Date Time Temp Pulse Resp B/P (MAP) Pulse Ox O2 Delivery O2 Flow Rate FiO2 12/06/18 11:57 99.3 77 18 125/72 (89) 96 12/06/18 09:00 Nasal Cannula 2.0 12/06/18 08:00 98.0 85 18 117/63 (81) 98 12/06/18 07:40 Nasal Cannula 2.0 28 12/06/18 07:40 99 Nasal Cannula 2.0 28 12/06/18 04:00 97.8 72 20 121/56 (77) 99 12/06/18 02:57 65 16 98 Facial 30 12/06/18 01:32 75 15 99 Facial 30 12/06/18 00:00 97.3 80 20 126/72 (90) 99 12/05/18 22:32 Bi-pap 30 12/05/18 22:32 99 Bi-pap 30 12/05/18 22:30 80 13 99 Facial 30 12/05/18 21:00 Nasal Cannula 2.0 12/05/18 20:00 98.7 85 18 134/87 (103) 99 I&O Intake and Output 12/05/18 12/06/18 19:00 07:00 Intake Total 1330.000 ml Output Total 1300 ml 1700 ml Balance 30.000 ml -1700 ml Intake Oral 1000 ml IV Total 330.000 ml Output Urine Total 1300 ml 1700 ml # Voids 2 Wound: clean Drains: other Cardiovascular: RSR Respiratory: decreased breath sounds Abdomen: soft, present bowel sounds, non-distended Extremities: no cyanosis Laboratory Tests Test 12/06/18 04:00 12/06/18 05:24 Urine Color Pale yellow Urine Appearance Slightly cloudy Urine pH 7 (4.5-8.0) Urine Specific [place] 1.005 (1.005-1.035) Urine Protein 3+ (NEGATIVE) H Urine Glucose (UA) Negative (NEGATIVE) Urine Ketones Negative (NEGATIVE) Urine Blood 5+ (NEGATIVE) H Urine Nitrite Positive (NEGATIVE) H Urine Bilirubin Negative (NEGATIVE) Urine Urobilinogen Normal MG/DL (0.0-1.0) Urine Leukocyte Esterase 3+ (NEGATIVE) H Urine RBC 20-30 /HPF (0 - 2) H Urine WBC 60-80 /HPF (0 - 2) H Urine Squamous Epithelial Cells Few /LPF (NONE/OCC) Urine Bacteria Many /HPF (NONE) H Urine Mucus Few /LPF (NONE/OCC) H White Blood Count 9.3 K/UL (4.8-10.8) Red Blood Count 4.82 M/UL (4.20-5.40) Hemoglobin 10.4 G/DL (12.0-16.0) L Hematocrit 34.1 % (37.0-47.0) L Mean Corpuscular Volume 71 FL (80-99) L Mean Corpuscular Hemoglobin 21.6 PG (27.0-31.0) L Mean Corpuscular Hemoglobin Concent 30.5 G/DL (32.0-36.0) L Red Cell Distribution Width 17.1 % (11.6-14.8) H Platelet Count 328 K/UL (150-450) Mean Platelet Volume 5.5 FL (6.5-10.1) L Neutrophils (%) (Auto) 67.5 % (45.0-75.0) Lymphocytes (%) (Auto) 22.4 % (20.0-45.0) Monocytes (%) (Auto) 5.6 % (1.0-10.0) Eosinophils (%) (Auto) 4.0 % (0.0-3.0) H Basophils (%) (Auto) 0.6 % (0.0-2.0) Sodium Level 141 MMOL/L (136-145) Potassium Level 3.9 MMOL/L (3.5-5.1) Chloride Level 102 MMOL/L (98-107) Carbon Dioxide Level 34 MMOL/L (21-32) H Anion Gap 5 mmol/L (5-15) Blood Urea Nitrogen 15 mg/dL (7-18) Creatinine 0.4 MG/DL (0.55-1.30) L Estimat Glomerular Filtration Rate > 60 mL/min (>60) Glucose Level 118 MG/DL (74-106) H Calcium Level 8.8 MG/DL (8.5-10.1) Total Bilirubin 0.2 MG/DL (0.2-1.0) Aspartate Amino Transf (AST/SGOT) 10 U/L (15-37) L Alanine Aminotransferase (ALT/SGPT) 9 U/L (12-78) L Alkaline Phosphatase 82 U/L (46-116) Pro-B-Type Natriuretic Peptide 254 pg/mL (0-125) H Total Protein 7.9 G/DL (6.4-8.2) Albumin 2.9 G/DL (3.4-5.0) L Globulin 5.0 g/dL Albumin/Globulin Ratio 0.6 (1.0-2.7) L Plan Problems: (1) Paraplegia (2) Sepsis Assessment & Plan: HD stable, leukocytosis resolved, abnormal labs cultures ntoed urine with gram negative on IV Abx as per ID trend labs (3) ATN (acute tubular necrosis) (4) Suprapubic catheter (5) Restrictive lung disease due to kyphoscoliosis (6) Hyperkalemia (7) Cellulitis (8) Pulmonary edema (9) Hypotension (10) Urinary catheter in place (11) Encounter for care or replacement of suprapubic tube (12) Blocked suprapubic catheter (13) Decubitus skin ulcer Assessment & Plan: Patient presented on admission with resolving 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 Historical scars noted to lumbar area. Base of wound at sacrum with scattered slough, Bone is palpable , otherwise pink. (+) maceration along borders. No odor noted. Small amt serous exudate. Hyperpigmentation noted periwound. Both heels are soft with dry peeling skin. Both heels are blanchable. Pt presented on admission with resolving pressure injury to sacrum with pink epithelial and # 2 full thickness pressure injuries within base of wound at R and L sacrum. (L)sacral wound moist viable ,macerated borders.[place] epithelial periwound (L)1cm x (W)0.8cm x (D)0.4cm. R sacrum full thickness pressure injury .Base of wound moist-viable ,macerated borders, [place] epithelial periwound. Multiple partial thickness wounds scattered to R and L buttocks and both ischial l areas. Both heels are soft but pink and blanchable. No evidence of Skin breakdown noted to all other bony prominences. Tx.Plan: Cleanse wounds R and L sacrum with Saline. Apply Therahoney to wounds. Apply Triad Paste to surrounding areas. Cover with Optifoam drsg. Change every 3 days and prn. Apply Cavilon Skin Barrier to R and L heels and [place] daily. Reposition at least every 2hours or as tolerated. APM/JOSE Mattress overlay. Off-load heels with pillow. Nutritional optimization for wound healing Nutrition consult Labs noted (14) Spina bifida Assessment & Plan: DAILY ESTIMATED NEEDS: Needs based on wound, paraplegia/ 63kg 27-32kcal/kg kcals/kg 4523-3895 total kcals 1.25-1.5 g protein/kg 79-95 g total protein 25-30 mL/kg 7190-6775 total fluid mLs NUTRITION DIAGNOSIS: Increased kcal/pro/micronutrients needs R/T wound healing as evidenced by pt is paraplegic, h/o spina bifida, adm w/ sacral wound/ unstageable, R buttock full thickness wound, full WC eval is pending. PO DIET RECOMMENDATIONS: REGULAR/ texture as tolerated or per COOK FROZEN DESSERT ---- ADDITIONAL RECOMMENDATIONS: 1) Wound healing: GREGG BID + MVI x 1, Vit C 500mg QD 2) Obtain calibrated bedscale wt 3) Monitor for continued good PO intake 4) F/up w/ WC eval and H&P 5) COOK FROZEN DESSERT eval as appropriate (15) UTI (urinary tract infection) Saad Neves December 06, 2018 16:07
--- NOTE | 2018-12-06 16:10 | Consultation ---
History of Present Illness General Date patient seen: December 06, 2018 Chief Complaint: Female Urogenital Problems Present Illness HPI afebrile>72hrs no leukocytosis Bcx N TD Allergies: Coded Allergies: PENICILLIN G (Verified Allergy, Unknown, 12/02/18) Tolerates cabapenem, cephalosporin PENICILLINS (Unverified Allergy, Unknown, 12/02/18) Medication History Scheduled Apixaban (Eliquis), 5 MG PO BID, (Reported) Ascorbic Acid* (Ascorbic Acid*), 500 MG ORAL TWICE A DAY, (Reported) Ciprofloxacin (Cipro), 500 MG PO EVERY 12 HOURS Docusate Sodium* (Docusate Sodium*), 100 MG ORAL TWICE A DAY, (Reported) Ertapenem Sodium* (INVanz*), 1 GM IVPB Q24H, (Reported) Mirabegron (Myrbetriq), 50 MG PO DAILY, (Reported) Multivitamins* (Multivitamins*), 1 TAB ORAL DAILY, (Reported) Sennosides (Senna), 8.6 MG PO BID, (Reported) Zinc Sulfate (Zinc Sulfate), 220 MG ORAL DAILY, (Reported) Miscellaneous Medications Biotin (Biotin), 1,000 MCG PO, (Reported) Patient History Healthcare decision maker Resuscitation status Full Code Advanced Directive on File Physical Exam Physical Exam Narrative HEENT: normocephalic, atraumatic bilateral eye PERRL normal pharynx Neck: full range of motion, supple/symm/no masses Respiratory: chest non-tender, lungs clear, normal breath sounds, speaking full sentences Cardiovascular : regular rate, rhythm, no edema Gastrointestinal: normal bowel sounds, non tender, soft, non-distended, no guarding, no rebound Genitourinary: normal inspection, no CVA tenderness Musculoskeletal: back normal Neurologic: alert, oriented x3, responsive, motor strength/tone normal, sensory intact, speech normal Skin: normal color, no rash, warm/dry, well hydrated Last 24 Hour Vital Signs Date Time Temp Pulse Resp B/P (MAP) Pulse Ox O2 Delivery O2 Flow Rate FiO2 12/06/18 11:57 99.3 77 18 125/72 (89) 96 12/06/18 09:00 Nasal Cannula 2.0 12/06/18 08:00 98.0 85 18 117/63 (81) 98 12/06/18 07:40 Nasal Cannula 2.0 28 12/06/18 07:40 99 Nasal Cannula 2.0 28 12/06/18 04:00 97.8 72 20 121/56 (77) 99 12/06/18 02:57 65 16 98 Facial 30 12/06/18 01:32 75 15 99 Facial 30 12/06/18 00:00 97.3 80 20 126/72 (90) 99 12/05/18 22:32 Bi-pap 30 12/05/18 22:32 99 Bi-pap 30 12/05/18 22:30 80 13 99 Facial 30 12/05/18 21:00 Nasal Cannula 2.0 12/05/18 20:00 98.7 85 18 134/87 (103) 99 12/05/18 16:00 98.1 74 20 125/78 (94) 99 Intake and Output 12/05/18 12/06/18 19:00 07:00 Intake Total 1330.000 ml Output Total 1300 ml 1700 ml Balance 30.000 ml -1700 ml Intake Oral 1000 ml IV Total 330.000 ml Output Urine Total 1300 ml 1700 ml # Voids 2 Laboratory Tests Test 12/06/18 04:00 12/06/18 05:24 Urine Color Pale yellow Urine Appearance Slightly cloudy Urine pH 7 (4.5-8.0) Urine Specific [place] 1.005 (1.005-1.035) Urine Protein 3+ (NEGATIVE) H Urine Glucose (UA) Negative (NEGATIVE) Urine Ketones Negative (NEGATIVE) Urine Blood 5+ (NEGATIVE) H Urine Nitrite Positive (NEGATIVE) H Urine Bilirubin Negative (NEGATIVE) Urine Urobilinogen Normal MG/DL (0.0-1.0) Urine Leukocyte Esterase 3+ (NEGATIVE) H Urine RBC 20-30 /HPF (0 - 2) H Urine WBC 60-80 /HPF (0 - 2) H Urine Squamous Epithelial Cells Few /LPF (NONE/OCC) Urine Bacteria Many /HPF (NONE) H Urine Mucus Few /LPF (NONE/OCC) H White Blood Count 9.3 K/UL (4.8-10.8) Red Blood Count 4.82 M/UL (4.20-5.40) Hemoglobin 10.4 G/DL (12.0-16.0) L Hematocrit 34.1 % (37.0-47.0) L Mean Corpuscular Volume 71 FL (80-99) L Mean Corpuscular Hemoglobin 21.6 PG (27.0-31.0) L Mean Corpuscular Hemoglobin Concent 30.5 G/DL (32.0-36.0) L Red Cell Distribution Width 17.1 % (11.6-14.8) H Platelet Count 328 K/UL (150-450) Mean Platelet Volume 5.5 FL (6.5-10.1) L Neutrophils (%) (Auto) 67.5 % (45.0-75.0) Lymphocytes (%) (Auto) 22.4 % (20.0-45.0) Monocytes (%) (Auto) 5.6 % (1.0-10.0) Eosinophils (%) (Auto) 4.0 % (0.0-3.0) H Basophils (%) (Auto) 0.6 % (0.0-2.0) Sodium Level 141 MMOL/L (136-145) Potassium Level 3.9 MMOL/L (3.5-5.1) Chloride Level 102 MMOL/L (98-107) Carbon Dioxide Level 34 MMOL/L (21-32) H Anion Gap 5 mmol/L (5-15) Blood Urea Nitrogen 15 mg/dL (7-18) Creatinine 0.4 MG/DL (0.55-1.30) L Estimat Glomerular Filtration Rate > 60 mL/min (>60) Glucose Level 118 MG/DL (74-106) H Calcium Level 8.8 MG/DL (8.5-10.1) Total Bilirubin 0.2 MG/DL (0.2-1.0) Aspartate Amino Transf (AST/SGOT) 10 U/L (15-37) L Alanine Aminotransferase (ALT/SGPT) 9 U/L (12-78) L Alkaline Phosphatase 82 U/L (46-116) Pro-B-Type Natriuretic Peptide 254 pg/mL (0-125) H Total Protein 7.9 G/DL (6.4-8.2) Albumin 2.9 G/DL (3.4-5.0) L Globulin 5.0 g/dL Albumin/Globulin Ratio 0.6 (1.0-2.7) L Height (Feet): 5 Height (Inches): 3.00 Weight (Pounds): 139 Medications Current Medications Medications (Trade) Dose Ordered Sig/Sandeep Route PRN Reason Start Time Stop Time Status Last Admin Dose Admin Acetaminophen (Tylenol) 650 mg Q4H PRN ORAL fever 12/02/18 22:30 01/01/19 22:29 Albuterol/ Ipratropium (Albuterol/ Ipratropium) 3 ml Q4H PRN HHN Shortness of Breath 12/02/18 22:30 12/07/18 22:29 Cefepime HCl 1 gm/ Dextrose 55 ml @ 110 mls/hr EVERY 12 HOURS IVPB 12/03/18 13:00 12/10/18 12:59 12/06/18 09:08 Ciprofloxacin (Cipro 500mg tab) 500 mg EVERY 12 HOURS ORAL 12/03/18 12:00 12/10/18 11:59 12/06/18 09:08 Heparin Sodium (Porcine) (Heparin 5000 units/ml) 5,000 units EVERY 12 HOURS SUBQ 12/03/18 09:00 01/02/19 08:59 12/06/18 09:08 Morphine Sulfate (Morphine Sulfate) 2 mg Q4H PRN IVP Moderate Pain (Pain Scale 4-6) 12/02/18 22:30 12/09/18 22:29 12/03/18 20:58 Ondansetron HCl (Zofran) 4 mg Q6H PRN IVP Nausea & Vomiting 12/02/18 22:30 01/01/19 22:29 Phenazopyridine HCl (Pyridium) 100 mg DAILY PRN ORAL dysuria 12/02/18 22:30 01/01/19 22:29 Polyethylene Glycol (Miralax) 17 gm DAILYPRN PRN ORAL Constipation 12/02/18 22:30 01/01/19 22:29 Temazepam (Restoril) 15 mg HSPRN PRN ORAL Insomnia 12/02/18 22:30 12/09/18 22:29 12/04/18 20:41 Assessment/Plan Assessment/Plan: Assessment: Sepsis-2ry to UTI -u/a wbc tnct, nit +, leuk +3; ucx >100k P. mirabilis (R ancef, amp, bactrim; S Cipro), >100k PsA (R Ceftazidime; I Cefepime; S Cipro/levo) -CXR: No acute cardiopulmonary abnormalities. No change -Bcx NTD Low grade fever; SP Leukocytosis, SP hx of UTI -09/2018 ucx >100k P. mirabilis (R amp, bactrim; otherwise S); >100k PsA (I cefepime; R ceftazidime), >100k E. fecalis (S Amp, vanco, nitrofurantoin) --MRSA 02/2018 -S. maltophilia 03/2017 -Proteus 02/2017 Sacral decub ulcer- no signs of infection -hx of wound cx 02/2018 MRSA, P.mirabilis: colonizers DM2 HTN wheelchair bound chronic mena h/o PCN G allergy, tolerates carbapenem, cephalosporin spina bifida w/ paraplegic (alysha in place) suprapubic urinary catheter [employer] shunt; h/o fractured distal tip Plan: -D/c empiric Cefepime #4 -Continue PO Cipro #4/10 for UTI -12/05 SP IV Vancomycin #4 -f/u cx -Monitor CBC/CMP, temperatures -aspiration precautions -Wound care per hospital protocol Thank you for this consultation. Will continue to follow along with you. Discussed with Joaquina Rivera M.D. December 06, 2018 16:10
--- NOTE | 2018-12-06 18:13 | NUR ---
NURSE NOTES: pt has discharge order, all discharge assessments and instructions done. pt is stable, V/S stable. pt's sister HAMMAD and father are aware about discharging and all instructions. wound treatment done as order, pictures taken and uploaded to the computer. iv access D/C and pt left hospital with accompany of ambulance personnel.
[2018-12-06] MEDS ORDERED: D5 1/2NS 1000ml IV ONE (18:14)
[2018-12-06] MEDS ORDERED: Tubing IV Secondary IV ONE (18:14)
--- NOTE | 2018-12-08 12:53 | Discharge Summary ---
Discharge Summary Discharge Summary _ DATE OF ADMISSION: 12/02/2018 DATE OF DISCHARGE: 12/06/2018 DISCHARGED BY: Dr. 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 Family noted cloudy 6 sediment in the Huber catheter but the suprapubic catheter for the last few days. Patient also was becoming increasingly irritable per family it usually happened when she had infection. No documented fever or chills. No nausea or vomiting. No chest pain or shortness of breath. Upon evaluation emergency department patient was found to have leukocytosis to 15.3 hemoglobin 11.8 hematocrit 38.4. Urinalysis evidence of UTI. Stable electrolytes and renal parameters. Lactic acid 1.6 glucose 110 stable LFT. proBNP 35 albumin 3.1 chest x-ray revealed no acute cardiopulmonary pathology CONSULTANTS: ID specialist Dr. Hill surgery Dr. Neves HOSPITAL COURSE: Patient admitted to the floor and started on the IV fluids and empiric antibiotic ID specialist closely followed. DVT prophylaxis provided. Supplemental oxygen provided as needed to keep pulse oximetry above 92%. Pulmonary toilet was on standby as needed. Patient was followed -up with chest x-ray , which showed some vascular congestion and cardiomegaly. Pro BNP 254 . Patient received 1 dose of Lasix. Patient with noted improvement in breathing prior to discharge. Blood cultures were negative. Urine culture revealed growth of Enterococcus faecalis, Proteus mirabilis and Pseudomonas aeruginosa all with colony count more than 100,000 K. Repeated urine culture showed growth of Enterococcus faecalis VRE with colony count more than 100,000. Antibiotic regimen provided as per ID specialist recommendation. Leukocytosis resolved. Low-grade fever improved. Sacral decubitus ulcer did not show any signs of infection. Wound care provided as per surgeon recommendation. Continue wound care at the at home as recommended by surgeon. Protein supplements provided as per screening unit registered nurse recommendations. Renal parameters and electrolytes were closely monitored. Electrolytes corrected as needed/potassium, and nephrotoxins were avoided. DVT prophylaxis provided. Bowel regimen instituted. Supportive care provided. Patient clinically stabilized and was ready for discharge home. FINAL DIAGNOSES: Sepsis due to UTI UTI Restrictive lung disease due to kyphoscoliosis Suprapubic catheter Spina bifida Paraplegia Decubitus ulcer, present on admission Protein calorie malnutrition DISCHARGE MEDICATIONS: See Medication Reconciliation list. DISCHARGE INSTRUCTIONS: Patient was discharged home Follow up with primary care provider in one week. I have been assigned to dictate discharge summary for this account. I was not involved in the patient's management. Trinh Muñiz NP December 08, 2018 12:53
== END 2018-12-06 18:15 | disposition home or self-care (01) | DRG 871 ==
LOC: EMR 18:50 → 4E 19:37 → EDBEDREQ 19:54 → 4E 21:42
DX: A41.9 Sepsis, unspecified organism (principal); L89.154 Pressure ulcer of sacral region, stage 4; N17.0 Acute kidney failure with tubular necrosis; N39.0 Urinary tract infection, site not specified; G82.20 Paraplegia, unspecified; E46 Unspecified protein-calorie malnutrition; T83.090A Other mechanical complication of cystostomy catheter, initial encounter; N99.512 Cystostomy malfunction; Q05.9 Spina bifida, unspecified; J98.4 Other disorders of lung; M41.80 Other forms of scoliosis, site unspecified; Z93.59 Other cystostomy status; Y83.3 Surgical operation with formation of external stoma as the cause of abnormal reaction of the patient, or of later complication, without mention of misadventure at the time of the procedure; Z88.0 Allergy status to penicillin; E11.9 Type 2 diabetes mellitus without complications; L89.90 Pressure ulcer of unspecified site, unspecified stage
CPT/HCPCS: 36415; 71045; 80053; 80202; 81001; 81003; 83605; 83880; 85025; 87040; 87081; 87086; 87181; 94660; 94664; 94760; 96361; 96365; 99285; J8499

== ENCOUNTER 2019-07-11 21:27 | Inpatient (IN) | payer MEDICARE, MEDICAID ==
[~2019-07-11] VITALS: Ht 147.3 cm; Wt 60.3 kg
--- NOTE | 2019-07-11 21:30 | NUR ---
ED Nurse Note: BROUGHT IN BY [facility] FROM HOME C/O SOB. SPO2 AT SCENE 88% ON NRB 10L. HX OF FREQUENT PNA. PATIENT OPENS EYES SPONTANEOUSLY, FOLLOWS COMMAND, APHASIC. CHANGED INTO GOWN; ATTACHED TO MONITOR; SPO2 96% ON 2L NC. NAD. SUPRAPUBIC CATHETER NOTED. IV ACCESS ESTABLISHED. BLOOD, INITIAL LACTIC, BLOOD CULTURE, URINE COLLECTED; SENT DOWN TO LAB. FAMILY A BEDSIDE.
--- NOTE | 2019-07-11 21:38 | Emergency Room Report ---
History of Present Illness General Chief Complaint: Dyspnea/Respdistress Source: Family Member, Medical Record, EMS Present Illness HPI Is a 49-year-old female with a history of spina bifida status post ADMINISTRATIVE OPERATIONS COORDINATOR shunt. She is wheelchair-bound and is a paraplegic. She has bilateral renal stents and suprapubic catheter. She presents with complaint of shortness of breath. Onset just prior to arrival. Family said that she appeared to be choking and pale. Said that she was agitated and try to pull off the oxygen. They called 911. EMS said that her oxygenation was 88% on room air. They put her on oxygen and brought her here. Unable to get any history from this patient because she is nonverbal. Family says she appeared to be pale. There was no fever or chills. Allergies: Coded Allergies: PENICILLIN G (Verified Allergy, Unknown, 12/02/18) Tolerates cabapenem, cephalosporin PENICILLINS (Unverified Allergy, Unknown, 12/02/18) Patient History Past Medical History: see triage record, old chart reviewed Past Surgical History: other Pertinent Family History: none Social History: Denies: smoking Now: No Immunizations: other Reviewed Nursing Documentation: PMH: Agreed; PSxH: Agreed Nursing Documentation-PMH Past Medical History: No History, Except For Hx Hypertension: Yes Hx Diabetes: Yes Hx Cancer: No Hx Gastrointestinal Problems: No Hx Neurological Problems: Yes Hx Cerebrovascular Accident: No Hx Transient Ischemic Attacks: No Hx Dementia: No Hx Alzheimer's Disease: No Hx Parkinson's Disease: No Hx Meningitis: No Hx Encephalitis: No Hx Seizures: No Hx Epilepsy: No Hx Multiple Sclerosis: No Hx Cerebral Palsy: No Hx Amyotrophic Lat Sclerosis: No Hx Guillian-Downey Syndrome: No Hx Paralysis: Yes - Below the waste Hx Peripheral Neuropathy: No Hx Spinal Cord Injury: Yes - Spina Bifida Hx Head Trauma: No Hx Traumatic Brain Injury: No Hx Memory Loss: No Hx Concentration Difficulty: No Hx Speech Problem: Yes Hx Tremors: No Hx Vertigo: No Hx Headaches: No Hx Aphasia: No Hx Dysphasia: No Hx Numbness: No Hx Weakness: No Hx Fatigue: No Hx Neurologic Surgery: No Hx Brain Shunt: Yes Review of Systems Eye: Denies: eye pain, blurred vision ENT: Denies: ear pain, nose congestion, throat swelling Respiratory: Reports: shortness of breath; Denies: cough Cardiovascular: Denies: chest pain, palpitations Gastrointestinal: Denies: abdominal pain, diarrhea, nausea, vomiting Musculoskeletal: Denies: back pain, joint pain Skin: Denies: rash Neurological: Denies: headache, numbness Endocrine: Denies: increased thirst, increased urine Hematologic/Lymphatic: Denies: easy bruising All Other Systems: negative except mentioned in HPI Physical Exam Vital Signs Date Time Temp Pulse Resp B/P (MAP) Pulse Ox O2 Delivery O2 Flow Rate FiO2 07/11/19 21:23 98.4 90 20 128/48 (74) 99 Room Air Vitals normal Sp02 EP Interpretation: reviewed, normal General Appearance: well appearing, no apparent distress, alert Head: normocephalic, atraumatic Eyes: bilateral eye PERRL, bilateral eye EOMI ENT: hearing grossly normal, normal pharynx Neck: full range of motion, supple, no meningismus Respiratory: chest non-tender, normal breath sounds, decreased breath sounds Cardiovascular #1: regular rate, rhythm, no murmur Gastrointestinal: normal bowel sounds, non tender, no mass, no organomegaly, no bruit, non-distended Musculoskeletal: back normal, other - Lower extremities are atrophied. She has ulceration to the lateral lower extremities. Psychiatric: mood/affect normal Medical Decision Making Diagnostic Impression: Primary Impression: HCAP (healthcare-associated pneumonia) Additional Impressions: Respiratory failure with hypoxia Qualified Codes: J96.21 - Acute and chronic respiratory failure with hypoxia UTI (urinary tract infection) Qualified Codes: N30.00 - Acute cystitis without hematuria Spina bifida Qualified Codes: Q05.4 - Unspecified spina bifida with hydrocephalus ER Course Patient presents with respiratory distress. She has a history of pneumonia. Gave her antibiotics here. Labs unremarkable. Breathing treatment. Patient felt better. Will admit for IV antibiotics. I discussed the case with Dr. Neri for admission. EKG Diagnostic Results Rate: normal Rhythm: NSR ST Segments: no acute changes Rhythm Strip Diag. Results EP Interpretation: yes Rate: 88 Rhythm: NSR, no PVC's, no ectopy Chest X-Ray Diagnostic Results Chest X-Ray Diagnostic Results : Chest X-Ray Ordered: Yes # of Views/Limited/Complete: 1 View Indication: Shortness of Breath EP Interpretation: Yes Interpretation: no pneumothorax, other - Bilateral lower lobe infiltrates Impression: Other - b/l lower lobe infiltrates Electronically Signed by: Ajit Coates MD Last Vital Signs Date Time Temp Pulse Resp B/P (MAP) Pulse Ox O2 Delivery O2 Flow Rate FiO2 07/11/19 21:23 98.4 90 20 128/48 (74) 99 Room Air Status: improved Disposition: ADMITTED INPATIENT Condition: Serious Ajit Coates MD Jul 11, 2019 21:38
[2019-07-11] MEDS ORDERED: PROTONIX20 MG ORAL (21:48)
[2019-07-11] MEDS ORDERED: ELIQUIS5 MG PO (21:48)
--- NOTE | 2019-07-11 22:01 | NUR ---
ED Nurse Note: IMAGING AT BEDSIDE.
[2019-07-11 22:03] VITALS: BP 128/48
[2019-07-11 22:20] LABS: BASOPHILS % (AUTO) 0.3 % (0.0-2.0); EOSINOPHILS % (AUTO) 1.7 % (0.0-3.0); HEMATOCRIT 37.5 % (37.0-47.0); HEMOGLOBIN 10.9 G/DL (12.0-16.0); LYMPHOCYTES % (AUTO) 23.2 % (20.0-45.0); MEAN CORPUSCULAR VOLUME 70 FL (80-99); MONOCYTES % (AUTO) 6.5 % (1.0-10.0); NEUTROPHILS % (AUTO) 68.4 % (45.0-75.0); PLATELET COUNT 308 K/UL (150-450); RED BLOOD COUNT 5.35 M/UL (4.20-5.40); RED CELL DISTRIBUTION WIDTH 18.9 % (11.6-14.8); WHITE BLOOD COUNT 9.9 K/UL (4.8-10.8)
[2019-07-11 22:21] LABS: APPEARANCE,URINE CLOUDY; BILIRUBIN, URINE NEGATIVE (NEGATIVE); COLOR,URINE PALE YELLOW; GLUCOSE, URINE (UA) NEGATIVE (NEGATIVE); KETONES,URINE NEGATIVE (NEGATIVE); LEUKOCYTE ESTERASE ,URINE 3+ (NEGATIVE); NITRITE,URINE NEGATIVE (NEGATIVE); PH,URINE 7 (4.5-8.0); PROTEIN,URINE 2+ (NEGATIVE); UROBILINOGEN,URINE NORMAL MG/DL (0.0-1.0)
[2019-07-11 22:30] LABS: ANION GAP 2 mmol/L (5-15); BLOOD UREA NITROGEN 19 mg/dL (7-18); CALCIUM 8.6 MG/DL (8.5-10.1); CARBON DIOXIDE 38 MMOL/L (21-32); CHLORIDE 99 MMOL/L (98-107); CREATININE 0.4 MG/DL (0.55-1.30); POTASSIUM 3.8 MMOL/L (3.5-5.1); SODIUM 139 MMOL/L (136-145)
[2019-07-11] MEDS ORDERED: Cefepime HCl 1 GM in D5W 55 ML IVPB ONE (22:30)
[2019-07-11] MEDS ORDERED: Albuterol ud Inhalation HHN ONE (22:30)
--- NOTE | 2019-07-11 22:30 | NUR ---
ED Nurse Note: RT AT BEDSIDE FOR BREATHING TX
[2019-07-11 22:44] LABS: ALANINE AMINOTRANSFERASE 21 U/L (12-78); ALBUMIN/GLOBULIN RATIO 0.6 (1.0-2.7); ALKALINE PHOSPHATASE 98 U/L (46-116); ASPARTATE AMINO TRANSFERASE 12 U/L (15-37); BILIRUBIN,TOTAL 0.1 MG/DL (0.2-1.0); CKMB < 0.5 NG/ML (0.0-3.6)
--- NOTE | 2019-07-11 22:52 | Diagnostic Imaging Report ---
EXAM: XR Chest, 1 View CLINICAL HISTORY: SOB TECHNIQUE: Frontal view of the chest. COMPARISON: No relevant prior studies available. FINDINGS: Lungs: Bilateral pulmonary edema/infiltrates. Pleural space: Possible small pleural effusions. No pneumothorax. Heart: Cardiomegaly. Mediastinum: Unremarkable. Bones/joints: Spine postop changes. Tubes, lines and devices: DOG SITTER shunt catheter. IMPRESSION: 1. Bilateral pulmonary edema/infiltrates. 2. Possible small pleural effusions.
--- NOTE | 2019-07-11 23:40 | NUR ---
ED Nurse Note: SACRAL WOUND NOTED; PHOTOS TAKEN AND UPLOADED. VRE CRE MRSA SWAB COLLECTED; SENT DOWN TO LAB.
[2019-07-12] VITALS (16 sets, daily range): BP systolic 96–144; BP diastolic 46–75
--- NOTE | 2019-07-12 00:20 | NUR ---
NURSE NOTES: Received report from Sixto Whitney RN ED. Patient was transferred from ED to telemetry via gurney accompanied by 2 staff members without any incident. Patient is awake, nonverbal, lying in semi greer's; resting comfortably; on oxygen via NC @ 2LPM. No signs of pain nor distress noted. Patient was put on tele box, SR on the monitor, 87 bpm. Checked IV site and flushed. No erythema, bleeding or infiltration noted. With suprapubic catheter draining well to gravity. Body assessment done with sacral wound, and multiple old healed scars at the back and hip. Bed at lowest position, brakes on, [id number]. Call light within reach. Paged Dr. Neri for admitting orders. Will continue to monitor. Addendum: 07/13/19 at 2248 by Maggie Portillo RN Belongings list checked with transferring RN.
--- NOTE | 2019-07-12 00:20 | NUR ---
TRANSFER TO FLOOR: Patient transferred to [facility] 216-2 as ordered, per shahana mccord. Report given to tori case. patient stable for transport. pt transferred to floor via gurney with doris and rn. belongings list and admission packet sent with patient.
--- NOTE | 2019-07-12 03:00 | NUR ---
NURSE NOTES: Received admitting orders from Dr. Neri, noted and carried out.
[2019-07-12] MEDS: Albuterol ud Inhalation HHN SCH ×3 (03:13→10:35)
[2019-07-12] MEDS ORDERED: Albuterol/Ipratropium 3ml neb HHN PRN ×2 (03:45→15:00)
--- NOTE | 2019-07-12 04:30 | NUR ---
NURSE NOTES: Called [facility] and spoke with Shalini regarding patient's medication Zosyn and was advised to confirm with Dr Neri if it is ok to administer medication since patient is allergic to penicillin. Paged Dr. Neri, awaiting for callback.
[2019-07-12] MEDS ORDERED: Vancomycin 1gm in D5W 275ml IVPB SCH (05:00)
--- NOTE | 2019-07-12 05:00 | NUR ---
NURSE NOTES: Paged Dr. Neri regarding Zosyn. Awaiting for callback.
--- NOTE | 2019-07-12 05:30 | NUR ---
NURSE NOTES: Paged Dr. Neri regarding Zosyn. Awaiting for callback.
--- NOTE | 2019-07-12 07:00 | NUR ---
NURSE NOTES: Per Dr. Pearson, to consult with Dr. Pearson regarding Bipap settings and to notify Dr. Sanabria about zosyn antibiotic since patient is allergic to penicillin and to stop zosyn. Noted and carried out. Will endorsed to AM shift RN. Addendum: 07/12/19 at 0730 by Maggie Portillo RN Wrong entry.
--- NOTE | 2019-07-12 07:10 | NUR ---
HAND-OFF: Report given to EMMA Meek. Plan of care endorsed.
--- NOTE | 2019-07-12 07:10 | NUR ---
NURSE NOTES: Received report from EMMA Serrano. The patient is resting on the bed and only arousable to deep pain. The patient's oxygen saturation is low 90s in 2L NC. Notified to Dr. Pearson and Dr. Neri. The patient's bed in the lowest position, call light in reach, and fall and aspiration precaution reinforced. Suprapubic cath intact and draining well. IV site intact and patent. Will continue plan fo care.
[2019-07-12] MEDS ORDERED: Piperacillin/Tazobactam 3.375 GM in NS 110 ML IVPB SCH (08:00)
--- NOTE | 2019-07-12 08:20 | NUR ---
NURSE NOTES: Notified Dr. Sanabria regarding new admission with consult. Notified the patient's condition including respiratory status, ENVELOPE MACHINE ADJUSTER shunt, suprapubic catheter with UA result. Dr. Sanabria ordered to continue Vancomycin QD pharmacy to dose but discontinue Zosyn as the patient is allergic to Penicillin. Dr. Sanabria ordered Azetreonam 2gm IVPB Q8HR. Will carry out the order as soon as possible. Will continue plan of care.
[2019-07-12] MEDS: Eliquis 5mg tablet ORAL SCH ×3 (09:00→17:33)
[2019-07-12] MEDS ORDERED: Aztreonam Inj 2 GM in D5W 110 ML IVPB SCH (09:00)
[2019-07-12] MEDS: Sennosides 8.6mg tab ORAL SCH ×3 (09:00→17:33)
--- NOTE | 2019-07-12 09:00 | NUR ---
NURSE NOTES: Dr. Neri at the bedside assessed the patient. Dr. Neri ordered stat chest x-ray, strict NPO, continuous bipap, and transfer to [facility]. Notified to the charge nurse. Will carry out the order as soon as possible. Will continue plan of care.
--- NOTE | 2019-07-12 09:35 | NUR ---
NURSE NOTES: The patient is on Bipap 10/[address] Neri's order. The patient's oxygen saturation within normal range. Will wait for Dr. Pearson's order.
--- NOTE | 2019-07-12 10:15 | NUR ---
NURSE NOTES: Reported ABG result to Dr. Neri and Dr. Pearson. Will continue plan of care.
--- NOTE | 2019-07-12 10:22 | History & Physical ---
History and Physical History & Physicial Dictation completed on 1022 hrs -[id number] Denise Neri MD Jul 12, 2019 10:22
--- NOTE | 2019-07-12 10:24 | General Progress Note ---
Assessment/Plan Assessment/Plan: seen and examined. Full Dictation in progress A/P: 1- Acute Hypoxemic respiratory failure 2- Sepsis 2- PNA 3- UTI 4- Neurologic bladder Plan: urology, ID Pulmonary services are consulted Transfer to Step Down Subjective Allergies: Coded Allergies: PENICILLIN G (Verified Allergy, Unknown, 12/02/18) Tolerates cabapenem, cephalosporin PENICILLINS (Unverified Allergy, Unknown, 12/02/18) Objective Last 24 Hour Vital Signs Date Time Temp Pulse Resp B/P (MAP) Pulse Ox O2 Delivery O2 Flow Rate FiO2 07/12/19 08:00 99.5 97 20 120/67 (84) 97 07/12/19 07:59 100 22 98 Nasal Cannula 4.0 36 98 18 97 07/12/19 04:00 98 07/12/19 04:00 2.0 28 07/12/19 04:00 98.4 90 20 130/75 (93) 98 07/12/19 03:17 103 20 97 Nasal Cannula 4.0 36 101 20 95 07/12/19 03:12 Nasal Cannula 2.0 07/12/19 00:20 93.9 90 20 144/52 (82) 98 07/12/19 00:20 98.4 89 18 134/65 98 Room Air 4.0 36 07/12/19 00:20 88 07/12/19 00:00 98.4 88 18 134/65 98 Room Air 4.0 36 07/11/19 22:32 85 18 98 Nasal Cannula 4.0 36 07/11/19 22:32 90 16 100 Nasal Cannula 4.0 36 85 18 98 07/11/19 22:03 98.4 89 20 128/48 99 Room Air 07/11/19 22:03 90 20 Room Air 07/11/19 21:23 98.4 90 20 128/48 (74) 99 Room Air Intake and Output 07/11/19 07/12/19 19:00 07:00 Output Total 600 ml Balance -600 ml Output Urine Total 600 ml # Bowel Movements 1 Laboratory Tests 07/11/19 21:45: White Blood Count 9.9, Red Blood Count 5.35, Hemoglobin 10.9L, Hematocrit 37.5, Mean Corpuscular Volume 70L, Mean Corpuscular Hemoglobin 20.3L, Mean Corpuscular Hemoglobin Concent 29.0L, Red Cell Distribution Width 18.9H, Platelet Count 308, Mean Platelet Volume 5.3L, Neutrophils (%) (Auto) 68.4, Lymphocytes (%) (Auto) 23.2, Monocytes (%) (Auto) 6.5, Eosinophils (%) (Auto) 1.7, Basophils (%) (Auto) 0.3, Prothrombin Time 10.2, Prothromb Time International Ratio 1.0, Activated Partial Thromboplast Time 29, Urine Color Pale yellow, Urine Appearance Cloudy, Urine pH 7, Urine Specific [place] 1.010, Urine Protein 2+H, Urine Glucose (UA) Negative, Urine Ketones Negative, Urine Blood 3+H, Urine Nitrite Negative, Urine Bilirubin Negative, Urine Urobilinogen Normal, Urine Leukocyte Esterase 3+H, Urine RBC 2-4H, Urine WBC TntcH, Urine Squamous Epithelial Cells Few, Urine Bacteria ManyH, Sodium Level 139, Potassium Level 3.8, Chloride Level 99, Carbon Dioxide Level 38H, Anion Gap 2L, Blood Urea Nitrogen 19H, Creatinine 0.4L, Estimat Glomerular Filtration Rate > 60, Glucose Level 133H, Lactic Acid Level 1.70, Calcium Level 8.6, Total Bilirubin 0.1L, Aspartate Amino Transf (AST/SGOT) 12L, Alanine Aminotransferase (ALT/SGPT) 21, Alkaline Phosphatase 98, Creatine Kinase MB < 0.5, Troponin I 0.000, Total Protein 7.9, Albumin 3.0L, Globulin 4.9, Albumin/Globulin Ratio 0.6L Height (Feet): 4 Height (Inches): 10.00 Weight (Pounds): 145 Denise Neri MD Jul 12, 2019 10:24
--- NOTE | 2019-07-12 10:41 | NUR ---
NURSE NOTES: Dr. Pearson ordered to increase Bipap to 17/5 and repeat ABG in an hour. Setting adjusted by respiratory therapist. Will continue plan of care. Still waiting for the [facility] bed assignment for transfer.
[2019-07-12 11:08] LABS: CHOLESTEROL 100 MG/DL (< 200); HDL CHOLESTEROL 21 MG/DL (40-60); TRIGLYCERIDES 126 MG/DL (30-150)
--- NOTE | 2019-07-12 11:26 | NUR ---
NURSE NOTES: Notified Dr. Pearson and Dr. Neri regarding abnormal ABG result. Dr. Pearson ordered the patient to be transferred to ICU stat with intubation. Notified to charge nurse. Will continue plan of care until ICU bed is available.
--- NOTE | 2019-07-12 11:38 | Diagnostic Imaging Report ---
EXAM: XR Chest, 1 View CLINICAL HISTORY: COUGH TECHNIQUE: Frontal view of the chest. COMPARISON: Chest radiograph on 07/11/2019 FINDINGS: Hardware: Right-sided ventriculoperitoneal shunt catheter. Lungs/pleura: Persistent diffuse hazy opacities throughout the lungs, slightly decreased in the right lung. Possible small bilateral pleural effusions. Heart/mediastinum: Stable enlargement of the cardiomediastinal silhouette. Soft tissues: Unremarkable. Bones: No acute fracture. Probable spinal fusion alysha again noted. Upper abdomen: Normal. IMPRESSION: Persistent diffuse hazy opacities throughout the lungs, slightly decreased in the right lung. Possible small bilateral pleural effusions.
--- NOTE | 2019-07-12 11:50 | NUR ---
NURSE NOTES: Safely transferred the patient to ICU 246-G with the charge nurse per Dr. Pearson's order. Full report given to EMMA Aguilera, the receiving nurse. Comprehensive report and detailed patient's condition information provided to EMMA Aguilera. Endorsed plan of care.
--- NOTE | 2019-07-12 12:00 | NUR ---
NURSE NOTES: Received pt transferred from Tele via hospital bed. Hand off report was received from Gaviota CARTER. Pt has no belongings, list was signed with the transferring nurse. Pt is awake, alert, with incomprehensible speech/rambling. continuous pillowcase cutter was placed on pt, displays NSR with heart rate in the 70's with weak peripheral pulses. Temp 99.7F axillary. Pt is currently on Bipap with settings 17/5 with O2Sat in the low 90's/upper 80's. Bilateral diminished lung sounds are noted on auscultation. Pt has one peripheral IV access on left FA #[id number], patent/intact. Suprapubic catheter is in place 22F, patent/draining mildly cloudy/dark yellow urine. Abdomen is round, soft, nontender to touch with hypoactive bowel sounds. Skin has sacral old/healed pressure wound/now DTI and right hip skin tear. Bilateral lower extremities/feet are contracted with 0/5 strength. Head of bed is at semi-greer's, bed locked, in lowest position, three side rails up and call light within reach.
--- NOTE | 2019-07-12 12:41 | Infectious Diseases Prog Note ---
Assessment/Plan Problems: (1) Pneumonia of both lower lobes Assessment & Plan: possible aspiration related . continue vancomycin and start aztreonam empirically, send sputum culture if she produces ant, aspiration precaution (2) Catheter-associated urinary tract infection Assessment & Plan: will send urine culture and start aztreonam empirically , continue local catheter care, may need to change the suprapubic catheter (3) Sepsis Assessment & Plan: due to the above, continue wide spectrum antibiotics pending cultures (4) Decubitus skin ulcer Assessment & Plan: of the sacrum, continue off loading and local wound care as per hospital protocol (5) Respiratory failure with hypoxia Assessment & Plan: due to the above, on BIPAP , monitor ABG and CXR , pulmonary is following (6) Spina bifida Subjective Allergies: Coded Allergies: PENICILLIN G (Verified Allergy, Unknown, 12/02/18) Tolerates cabapenem, cephalosporin PENICILLINS (Unverified Allergy, Unknown, 12/02/18) Objective Vital Signs Last 24 Hour Vital Signs Date Time Temp Pulse Resp B/P (MAP) Pulse Ox O2 Delivery O2 Flow Rate FiO2 07/12/19 10:38 96 19 98 Bi-Pap 100 07/12/19 10:36 99 19 98 Facial 100 07/12/19 09:44 Bi-pap 07/12/19 09:00 Nasal Cannula 2.0 07/12/19 08:00 95 07/12/19 08:00 99.5 97 20 120/67 (84) 97 07/12/19 08:00 2.0 07/12/19 07:59 100 22 98 Nasal Cannula 4.0 36 98 18 97 07/12/19 04:00 98 07/12/19 04:00 2.0 28 07/12/19 04:00 98.4 90 20 130/75 (93) 98 07/12/19 03:17 103 20 97 Nasal Cannula 4.0 36 101 20 95 07/12/19 03:12 Nasal Cannula 2.0 07/12/19 00:20 93.9 90 20 144/52 (82) 98 07/12/19 00:20 98.4 89 18 134/65 98 Room Air 4.0 36 07/12/19 00:20 88 07/12/19 00:00 98.4 88 18 134/65 98 Room Air 4.0 36 07/11/19 22:32 85 18 98 Nasal Cannula 4.0 36 07/11/19 22:32 90 16 100 Nasal Cannula 4.0 36 85 18 98 07/11/19 22:03 98.4 89 20 128/48 99 Room Air 07/11/19 22:03 90 20 Room Air 07/11/19 21:23 98.4 90 20 128/48 (74) 99 Room Air Height (Feet): 4 Height (Inches): 10.00 Weight (Pounds): 145 Laboratory Tests Test 07/11/19 21:45 07/12/19 10:00 07/12/19 10:15 07/12/19 11:26 White Blood Count 9.9 K/UL (4.8-10.8) Red Blood Count 5.35 M/UL (4.20-5.40) Hemoglobin 10.9 G/DL (12.0-16.0) L Hematocrit 37.5 % (37.0-47.0) Mean Corpuscular Volume 70 FL (80-99) L Mean Corpuscular Hemoglobin 20.3 PG (27.0-31.0) L Mean Corpuscular Hemoglobin Concent 29.0 G/DL (32.0-36.0) L Red Cell Distribution Width 18.9 % (11.6-14.8) H Platelet Count 308 K/UL (150-450) Mean Platelet Volume 5.3 FL (6.5-10.1) L Neutrophils (%) (Auto) 68.4 % (45.0-75.0) Lymphocytes (%) (Auto) 23.2 % (20.0-45.0) Monocytes (%) (Auto) 6.5 % (1.0-10.0) Eosinophils (%) (Auto) 1.7 % (0.0-3.0) Basophils (%) (Auto) 0.3 % (0.0-2.0) Prothrombin Time 10.2 SEC (9.30-11.50) Prothromb Time International Ratio 1.0 (0.9-1.1) Activated Partial Thromboplast Time 29 SEC (23-33) Urine Color Pale yellow Urine Appearance Cloudy Urine pH 7 (4.5-8.0) Urine Specific [place] 1.010 (1.005-1.035) Urine Protein 2+ (NEGATIVE) H Urine Glucose (UA) Negative (NEGATIVE) Urine Ketones Negative (NEGATIVE) Urine Blood 3+ (NEGATIVE) H Urine Nitrite Negative (NEGATIVE) Urine Bilirubin Negative (NEGATIVE) Urine Urobilinogen Normal MG/DL (0.0-1.0) Urine Leukocyte Esterase 3+ (NEGATIVE) H Urine RBC 2-4 /HPF (0 - 2) H Urine WBC Tntc /HPF (0 - 2) H Urine Squamous Epithelial Cells Few /LPF (NONE/OCC) Urine Bacteria Many /HPF (NONE) H Sodium Level 139 MMOL/L (136-145) Potassium Level 3.8 MMOL/L (3.5-5.1) Chloride Level 99 MMOL/L (98-107) Carbon Dioxide Level 38 MMOL/L (21-32) H Anion Gap 2 mmol/L (5-15) L Blood Urea Nitrogen 19 mg/dL (7-18) H Creatinine 0.4 MG/DL (0.55-1.30) L Estimat Glomerular Filtration Rate > 60 mL/min (>60) Glucose Level 133 MG/DL (74-106) H Lactic Acid Level 1.70 mmol/L (0.4-2.0) Calcium Level 8.6 MG/DL (8.5-10.1) Total Bilirubin 0.1 MG/DL (0.2-1.0) L Aspartate Amino Transf (AST/SGOT) 12 U/L (15-37) L Alanine Aminotransferase (ALT/SGPT) 21 U/L (12-78) Alkaline Phosphatase 98 U/L (46-116) Creatine Kinase MB < 0.5 NG/ML (0.0-3.6) Troponin I 0.000 ng/mL (0.000-0.056) Total Protein 7.9 G/DL (6.4-8.2) Albumin 3.0 G/DL (3.4-5.0) L Globulin 4.9 g/dL Albumin/Globulin Ratio 0.6 (1.0-2.7) L Hemoglobin A1c 6.0 % (4.3-6.0) Pro-B-Type Natriuretic Peptide 358 pg/mL (0-125) H Triglycerides Level 126 MG/DL (30-150) Cholesterol Level 100 MG/DL (< 200) LDL Cholesterol 63 mg/dL (<100) HDL Cholesterol 21 MG/DL (40-60) L Cholesterol/HDL Ratio 4.8 (3.3-4.4) H Thyroid Stimulating Hormone (TSH) 2.756 uiU/mL (0.358-3.740) Arterial Blood pH 7.210 (7.350-7.450) 7.209 (7.350-7.450) Arterial Blood Partial Pressure CO2 90.2 mmHg (35.0-45.0) *H 119.7 mmHg (35.0-45.0) *H Arterial Blood Partial Pressure O2 86.1 mmHg (75.0-100.0) 91.9 mmHg (75.0-100.0) Arterial Blood HCO3 35.3 mmol/L (22.0-26.0) H 46.7 mmol/L (22.0-26.0) *H Arterial Blood Oxygen Saturation 94.7 % (95-100) L 95.8 % (95-100) Arterial Blood Base Excess 5.2 (-2-2) H 15 (-2-2) *H Gerard Test Positive Positive Current Medications Medications (Trade) Dose Ordered Sig/Sandeep Route PRN Reason Start Time Stop Time Status Last Admin Dose Admin Acetaminophen (Tylenol) 650 mg Q6H PRN ORAL Mild Pain/Temp > 100.5 07/12/19 12:30 08/11/19 12:29 Albuterol/ Ipratropium (Albuterol/ Ipratropium) 3 ml Q4HRT PRN HHN Shortness of Breath 07/12/19 15:00 07/17/19 03:44 Apixaban (Eliquis) 5 mg BID ORAL 07/12/19 18:00 08/11/19 08:59 Aztreonam 2 gm/ Dextrose 110 ml @ 220 mls/hr Q8H IVPB 07/12/19 17:00 07/19/19 08:59 Pantoprazole (Protonix) 40 mg DAILY ORAL 07/13/19 09:00 08/11/19 08:59 Sennosides (Senokot) 8.6 mg BID ORAL 07/12/19 18:00 08/11/19 08:59 Vancomycin HCl (Vanco rx to dose) 1 ea DAILY PRN MISC rx protocol 07/13/19 09:00 08/11/19 08:59 Vancomycin HCl 1 gm/Dextrose 275 ml @ 183.708 mls/hr Q12H IVPB 07/12/19 17:00 07/17/19 04:59 Gigi Sanabria M.D. Jul 12, 2019 12:41
--- NOTE | 2019-07-12 13:00 | NUR ---
NURSE NOTES: Urine, sputum and blood cultures have been collected and sent to lab. Venous duplex of lower extremities was done, resulted negative. Chest xray was done and ET tube has been confirmed in place.
[2019-07-12 13:12] LABS: BASOPHILS % (AUTO) 0.7 % (0.0-2.0); EOSINOPHILS % (AUTO) 0.8 % (0.0-3.0); HEMATOCRIT 29.4 % (37.0-47.0); HEMOGLOBIN 8.6 G/DL (12.0-16.0); MEAN CORPUSCULAR VOLUME 71 FL (80-99); MONOCYTES % (AUTO) 7.3 % (1.0-10.0); NEUTROPHILS % (AUTO) 75.3 % (45.0-75.0); PLATELET COUNT 304 K/UL (150-450); RED BLOOD COUNT 4.18 M/UL (4.20-5.40); RED CELL DISTRIBUTION WIDTH 18.9 % (11.6-14.8); WHITE BLOOD COUNT 11.1 K/UL (4.8-10.8)
[2019-07-12 13:19] LABS: ANION GAP 1 mmol/L (5-15); BLOOD UREA NITROGEN 14 mg/dL (7-18); CALCIUM 7.9 MG/DL (8.5-10.1); CARBON DIOXIDE 39 MMOL/L (21-32); CHLORIDE 104 MMOL/L (98-107); CREATININE 0.3 MG/DL (0.55-1.30); POTASSIUM 4.2 MMOL/L (3.5-5.1); SODIUM 144 MMOL/L (136-145)
[2019-07-12 13:22] LABS: ALANINE AMINOTRANSFERASE 13 U/L (12-78); ALBUMIN 2.8 G/DL (3.4-5.0); ALBUMIN/GLOBULIN RATIO 0.6 (1.0-2.7); ALKALINE PHOSPHATASE 86 U/L (46-116); ASPARTATE AMINO TRANSFERASE 9 U/L (15-37); BILIRUBIN,TOTAL 0.2 MG/DL (0.2-1.0); PHOSPHORUS 3.7 MG/DL (2.5-4.9)
--- NOTE | 2019-07-12 13:27 | Consultation ---
Consult Note Assessment/Plan DICT # [id number] Regino Pearson MD Jul 12, 2019 13:27
--- NOTE | 2019-07-12 14:00 | NUR ---
NURSE NOTES: Patient arrived to the ICU and was urgently intubated at 1312 by ER MD. After intubation, patient because hypotensive. Dr Pearson arrived shortly after and ordered a Bronchoscopy as well as a Bolus of 1L of IVF to be urgently given to avoid pressers. Initially patient's SBP was 77. After 250 ml, patient's BP improved. Bronchoscopy was performed bedside by Dr Pearson and tolerated by patient with the assistance of the RTs at bedside. Sputum was sent to the lab. Consents were obtained. Patient will continue to be monitored and MD orders carried out.
--- NOTE | 2019-07-12 14:00 | History and Physical Report ---
DATE OF ADMISSION: 07/11/2019 SOURCE OF INFORMATION: EMR. HISTORY OF PRESENT ILLNESS: The patient is a 49-year-old female with history of spina bifida, bed-bound, who is lethargic at the time of evaluation. Therefore, the source of information is from the ER attending documentation. Per ER documentation, the patient had been brought. The patient is wheelchair bound, paraplegic. She has bilateral renal stents and suprapubic catheter. The patient had been reported to be found choking and pale and hypoxemic at room air per EMS report. REVIEW OF SYSTEMS: Cannot be obtained as detailed above. ALLERGIES: To penicillin. PAST MEDICAL HISTORY: Including, but not limited to, the spina bifida, paraplegia, bilateral renal and suprapubic catheter, wheelchair bound. SOCIAL HISTORY: No reported history of illicit drug abuse, smoking, or alcohol abuse exist. CURRENT HOME MEDICATIONS: Including, but not limited to Eliquis, ertapenem, ciprofloxacin. PHYSICAL EXAMINATION: VITAL SIGNS: Blood pressure 120/40, temperature 98.2, pulse oximetry is 98% on 4 liters of nasal cannula, pulse rate 90-100, temperature 98.5. HEAD AND NECK: Atraumatic, normocephalic. CHEST: Diffuse bronchial breathing sounds. No wheezing. HEART: S1, S2. Regular rate and rhythm. ABDOMEN: Obese, positive for suprapubic catheter. MUSCULOSKELETAL: The atrophy of the lower extremities, paraplegia are noted. NEUROLOGY: The patient is delirious. LABORATORY AND DIAGNOSTIC DATA: Dated July 11 shows hemoglobin of 10.9, BUN 19. Many urine bacteria, positive for 3+ blood. Chest x-ray dated July 11 shows bilateral infiltrate and edema. ASSESSMENT AND PLAN: 1. Sepsis - healthcare associated. 2. Pneumonia, healthcare associated. 3. UTI - healthcare associated. 4. Congenital abnormalities, spina bifida, paraplegic, wheelchair-bound. 5. On New oral anticoagulation 6. GI and DVT prophylaxis. PLAN OF CARE: We will start the patient on empiric antibiotic treatment. Breathing treatments continue. Urology, Infectious Disease, Pulmonary have been consulted and notified. The time of this dictation does not reflect the actual time of encounter on July 11. Denise Neri M.D. DR: YUDY JOB#: [id number] CC: IZAIAH
--- NOTE | 2019-07-12 14:30 | Operative Note - PDOC ---
Operative Note Operative Note Date of Operation/Procedure: Jul 12, 2019 Chief Complaint: LUNG INFILTRATES Pre-op Diagnosis: LUNG INFILTRATES Procedure: FLEXIBLE FIBEROPTIC BRONCHOSCOPY WITH BRONCHOALVEOLAR LAVAGE AND THERAPEUTIC ASPIRATION OF MUCOUS PLUG LEFT LUNG Post-op Diagnosis: SAME Post-op Diagnosis: same as pre-op Operative Findings: consistent w/pre-op dx studies Surgeon: Regino Pearson MD V Belt Finisher: None Additional Surgeons: None Anesthesiologist: N/A Anesthesia: other - ICU sedation Specimen: yes - POOLED BAL Complications: none Condition: stable Estimated Blood Loss: none Drains: none Packing: N/A Implant(s) used?: No Indications for Procedure RESPIRATORY FAILURE Description of Procedure After consent obtained, patient verified as Eusebia Mueller, time out done. Bronchoscopy then passed through ETT into trachea. Careful inspection of tracheobronchial tree. Thorough aspiration of mucous plug L lung and BAL. At the conclusion of the procedure b airways clean and patent, bronchoscope then withdrawn. Regino Pearson MD Jul 12, 2019 14:30
[2019-07-12] MEDS ORDERED: Etomidate 40mg/20ml Inj IV ONE (14:32)
[2019-07-12] MEDS ORDERED: Rocuronium Bromide 50mg/5ml Inj IV ONE (14:32)
--- NOTE | 2019-07-12 14:40 | Emergency Room Report ---
History of Present Illness General Chief Complaint: Dyspnea/Respdistress Source: Family Member, Medical Record, EMS Present Illness HPI Called by primary care doctor and pulmonology for patient intubation. In short this is a 49-year-old female who presented to emergency room. With history of spina bifida status post MACHINE ADJUSTER LEADER shunt, bilateral renal stents suprapubic catheter, complaining of shortness of breath found to have healthcare associated pneumonia , respiratory failure with hypoxia, urinary tract infection. She was initially placed on nasal cannula with ABG showing respiratory failure and increase in CO2. Patient then transferred onto [facility] with repeat ABG performed showing worsening CO2 retention. As per nursing patient also becoming more lethargic with shallow respirations. Decision made to intubate patient. Allergies: Coded Allergies: PENICILLIN G (Verified Allergy, Unknown, 12/02/18) Tolerates cabapenem, cephalosporin PENICILLINS (Unverified Allergy, Unknown, 12/02/18) Patient History Now: No Nursing Documentation-PMH Past Medical History: No History, Except For Hx Hypertension: Yes Hx Diabetes: Yes Hx Cancer: No Hx Gastrointestinal Problems: No Hx Neurological Problems: Yes Hx Cerebrovascular Accident: No Hx Transient Ischemic Attacks: No Hx Dementia: No Hx Alzheimer's Disease: No Hx Parkinson's Disease: No Hx Meningitis: No Hx Encephalitis: No Hx Seizures: No Hx Epilepsy: No Hx Multiple Sclerosis: No Hx Cerebral Palsy: No Hx Amyotrophic Lat Sclerosis: No Hx Guillian-Hooper Syndrome: No Hx Paralysis: Yes - Below the waste Hx Peripheral Neuropathy: No Hx Spinal Cord Injury: Yes - Spina Bifida Hx Head Trauma: No Hx Traumatic Brain Injury: No Hx Memory Loss: No Hx Concentration Difficulty: No Hx Speech Problem: Yes Hx Tremors: No Hx Vertigo: No Hx Headaches: No Hx Aphasia: No Hx Dysphasia: No Hx Numbness: No Hx Weakness: No Hx Fatigue: No Hx Neurologic Surgery: No Hx Brain Shunt: Yes Physical Exam Vital Signs Date Time Temp Pulse Resp B/P (MAP) Pulse Ox O2 Delivery O2 Flow Rate FiO2 07/11/19 21:23 98.4 90 20 128/48 (74) 99 Room Air 07/11/19 22:32 4.0 36 Procedures Intubation Intubation : Consent: Emergent Time of Intubation: 13:12 Intubation Method: orotracheal Tube Size (cm): 8.0 Medications: Etomidate, Succinylcholine Breath Sounds after Intubation: equal, right greater than left, left greater than right Intubation Complications: no complications Post Intubation Xray: Yes Attempts: One Patient Tolerated: Well Complications: None Progress Patient tolerated procedure well. Procedure was done with glide scope assist. Medical Decision Making Diagnostic Impression: Primary Impression: HCAP (healthcare-associated pneumonia) Additional Impressions: Respiratory failure with hypoxia Qualified Codes: J96.21 - Acute and chronic respiratory failure with hypoxia UTI (urinary tract infection) Qualified Codes: N30.00 - Acute cystitis without hematuria Spina bifida Qualified Codes: Q05.4 - Unspecified spina bifida with hydrocephalus ER Course Discussed case with primary care doctor and pulmonology. Patient intubated as noted in procedure note. Patient tolerated procedure well. No complications. Nurses updated all care providers. Last Vital Signs Date Time Temp Pulse Resp B/P (MAP) Pulse Ox O2 Delivery O2 Flow Rate FiO2 07/12/19 14:28 80 14 100 Mechanical Ventilator 40 07/12/19 12:00 98.2 114/55 (74) 07/12/19 09:00 2.0 Disposition: ADMITTED INPATIENT Condition: Serious Referrals: NON PHYSICIAN (PCP) Kirill Guzmán M.D. Jul 12, 2019 14:40
--- NOTE | 2019-07-12 14:57 | Diagnostic Imaging Report ---
EXAM: XR Chest, 1 View CLINICAL HISTORY: F/U TECHNIQUE: Frontal view of the chest. COMPARISON: Chest radiograph on 07/12/2019 at 1018 hrs. FINDINGS: Hardware: Interval placement of an endotracheal tube which terminates in the region of the mid/lower thoracic trachea. Right-sided DRAFTER ASSISTANT shunt catheter again noted. Lungs/pleura: Persistent diffuse hazy opacities again noted throughout the lungs, slightly decreased in the left lung. Possible small bilateral pleural effusions. Heart/mediastinum: Normal. No cardiomegaly. Soft tissues: Unremarkable. Bones: No acute fracture. Probable spinal fusion alysha again noted. Upper abdomen: Normal. IMPRESSION: 1. Interval placement of an endotracheal tube which terminates in the region of the mid/lower thoracic trachea. 2. Persistent diffuse hazy opacities again noted throughout the lungs, slightly decreased in the left lung. Possible small bilateral pleural effusions.
[2019-07-12] MEDS ORDERED: Albuterol ud Inhalation HHN SCH (15:00)
--- NOTE | 2019-07-12 15:00 | NUR ---
NURSE NOTES: Pt was seen by Dr Devi for urology consult. No new orders received at this time. VS remain stable. Wound photos were taken and will be uploaded.
--- NOTE | 2019-07-12 15:15 | Consultation ---
History of Present Illness General Date patient seen: Jul 12, 2019 Time patient seen: 15:11 Chief Complaint: Dyspnea/Respdistress Referring physician: shahana Present Illness HPI 49 yo female, spina bifida, neurogenic bladder, recurrent UTI. Admitted for respiratory distress. Likely pneumonia. History garnered from chart review. SP tube has been upsized recently to 22 iranian and changed recently. Remote history of kidney stones and stent placement, but unclear where this was done. Patient seems to have outpatient urologist. Allergies: Coded Allergies: PENICILLIN G (Verified Allergy, Unknown, 12/02/18) Tolerates cabapenem, cephalosporin PENICILLINS (Unverified Allergy, Unknown, 12/02/18) Medication History Scheduled Apixaban (Eliquis), 5 MG PO BID, (Reported) Apixaban (Eliquis), 5 MG PO BID, (Reported) Ascorbic Acid* (Ascorbic Acid*), 500 MG ORAL TWICE A DAY, (Reported) Ciprofloxacin (Cipro), 500 MG PO EVERY 12 HOURS Docusate Sodium* (Docusate Sodium*), 100 MG ORAL TWICE A DAY, (Reported) Ertapenem Sodium* (INVanz*), 1 GM IVPB Q24H, (Reported) Mirabegron (Myrbetriq), 50 MG PO DAILY, (Reported) Multivitamins* (Multivitamins*), 1 TAB ORAL DAILY, (Reported) Pantoprazole Sodium (Protonix), 40 MG ORAL DAILY, (Reported) Sennosides (Senna), 8.6 MG PO BID, (Reported) Zinc Sulfate (Zinc Sulfate), 220 MG ORAL DAILY, (Reported) Miscellaneous Medications Biotin (Biotin), 1,000 MCG PO, (Reported) Patient History Healthcare decision maker Resuscitation status Full Code Advanced Directive on File Past Medical/Surgical History Past Medical/Surgical History: (1) Suprapubic catheter (2) Respiratory failure with hypoxia Review of Systems All Other Systems: negative except mentioned in HPI Physical Exam General Appearance: overweight, other - sedated Abdomen: other - sp tube in good position, draining, insertion site c/d/i Last 24 Hour Vital Signs Date Time Temp Pulse Resp B/P (MAP) Pulse Ox O2 Delivery O2 Flow Rate FiO2 07/12/19 14:28 80 14 100 Mechanical Ventilator 40 07/12/19 14:20 79 14 40 07/12/19 14:00 73 14 110/46 (67) 98 07/12/19 13:00 99.9 89 17 111/59 (76) 100 07/12/19 12:00 98.2 96 20 114/55 (74) 99 07/12/19 10:38 96 19 98 Bi-Pap 100 07/12/19 10:36 99 19 98 Facial 100 07/12/19 09:44 Bi-pap 07/12/19 09:00 Nasal Cannula 2.0 07/12/19 08:00 95 07/12/19 08:00 99.5 97 20 120/67 (84) 97 07/12/19 08:00 2.0 07/12/19 07:59 100 22 98 Nasal Cannula 4.0 36 98 18 97 07/12/19 04:00 98 07/12/19 04:00 2.0 28 07/12/19 04:00 98.4 90 20 130/75 (93) 98 07/12/19 03:17 103 20 97 Nasal Cannula 4.0 36 101 20 95 07/12/19 03:12 Nasal Cannula 2.0 07/12/19 00:20 93.9 90 20 144/52 (82) 98 07/12/19 00:20 98.4 89 18 134/65 98 Room Air 4.0 36 07/12/19 00:20 88 07/12/19 00:00 98.4 88 18 134/65 98 Room Air 4.0 36 07/11/19 22:32 85 18 98 Nasal Cannula 4.0 36 07/11/19 22:32 90 16 100 Nasal Cannula 4.0 36 85 18 98 07/11/19 22:03 98.4 89 20 128/48 99 Room Air 07/11/19 22:03 90 20 Room Air 07/11/19 21:23 98.4 90 20 128/48 (74) 99 Room Air Intake and Output 07/11/19 07/12/19 19:00 07:00 Output Total 600 ml Balance -600 ml Output Urine Total 600 ml # Bowel Movements 1 Laboratory Tests Test 07/11/19 21:45 07/12/19 10:00 07/12/19 10:15 07/12/19 11:26 White Blood Count 9.9 K/UL (4.8-10.8) Red Blood Count 5.35 M/UL (4.20-5.40) Hemoglobin 10.9 G/DL (12.0-16.0) L Hematocrit 37.5 % (37.0-47.0) Mean Corpuscular Volume 70 FL (80-99) L Mean Corpuscular Hemoglobin 20.3 PG (27.0-31.0) L Mean Corpuscular Hemoglobin Concent 29.0 G/DL (32.0-36.0) L Red Cell Distribution Width 18.9 % (11.6-14.8) H Platelet Count 308 K/UL (150-450) Mean Platelet Volume 5.3 FL (6.5-10.1) L Neutrophils (%) (Auto) 68.4 % (45.0-75.0) Lymphocytes (%) (Auto) 23.2 % (20.0-45.0) Monocytes (%) (Auto) 6.5 % (1.0-10.0) Eosinophils (%) (Auto) 1.7 % (0.0-3.0) Basophils (%) (Auto) 0.3 % (0.0-2.0) Prothrombin Time 10.2 SEC (9.30-11.50) Prothromb Time International Ratio 1.0 (0.9-1.1) Activated Partial Thromboplast Time 29 SEC (23-33) Urine Color Pale yellow Urine Appearance Cloudy Urine pH 7 (4.5-8.0) Urine Specific [place] 1.010 (1.005-1.035) Urine Protein 2+ (NEGATIVE) H Urine Glucose (UA) Negative (NEGATIVE) Urine Ketones Negative (NEGATIVE) Urine Blood 3+ (NEGATIVE) H Urine Nitrite Negative (NEGATIVE) Urine Bilirubin Negative (NEGATIVE) Urine Urobilinogen Normal MG/DL (0.0-1.0) Urine Leukocyte Esterase 3+ (NEGATIVE) H Urine RBC 2-4 /HPF (0 - 2) H Urine WBC Tntc /HPF (0 - 2) H Urine Squamous Epithelial Cells Few /LPF (NONE/OCC) Urine Bacteria Many /HPF (NONE) H Sodium Level 139 MMOL/L (136-145) Potassium Level 3.8 MMOL/L (3.5-5.1) Chloride Level 99 MMOL/L (98-107) Carbon Dioxide Level 38 MMOL/L (21-32) H Anion Gap 2 mmol/L (5-15) L Blood Urea Nitrogen 19 mg/dL (7-18) H Creatinine 0.4 MG/DL (0.55-1.30) L Estimat Glomerular Filtration Rate > 60 mL/min (>60) Glucose Level 133 MG/DL (74-106) H Lactic Acid Level 1.70 mmol/L (0.4-2.0) Calcium Level 8.6 MG/DL (8.5-10.1) Total Bilirubin 0.1 MG/DL (0.2-1.0) L Aspartate Amino Transf (AST/SGOT) 12 U/L (15-37) L Alanine Aminotransferase (ALT/SGPT) 21 U/L (12-78) Alkaline Phosphatase 98 U/L (46-116) Creatine Kinase MB < 0.5 NG/ML (0.0-3.6) Troponin I 0.000 ng/mL (0.000-0.056) Total Protein 7.9 G/DL (6.4-8.2) Albumin 3.0 G/DL (3.4-5.0) L Globulin 4.9 g/dL Albumin/Globulin Ratio 0.6 (1.0-2.7) L Hemoglobin A1c 6.0 % (4.3-6.0) Pro-B-Type Natriuretic Peptide 358 pg/mL (0-125) H Triglycerides Level 126 MG/DL (30-150) Cholesterol Level 100 MG/DL (< 200) LDL Cholesterol 63 mg/dL (<100) HDL Cholesterol 21 MG/DL (40-60) L Cholesterol/HDL Ratio 4.8 (3.3-4.4) H Thyroid Stimulating Hormone (TSH) 2.756 uiU/mL (0.358-3.740) Arterial Blood pH 7.210 (7.350-7.450) 7.209 (7.350-7.450) Arterial Blood Partial Pressure CO2 90.2 mmHg (35.0-45.0) *H 119.7 mmHg (35.0-45.0) *H Arterial Blood Partial Pressure O2 86.1 mmHg (75.0-100.0) 91.9 mmHg (75.0-100.0) Arterial Blood HCO3 35.3 mmol/L (22.0-26.0) H 46.7 mmol/L (22.0-26.0) *H Arterial Blood Oxygen Saturation 94.7 % (95-100) L 95.8 % (95-100) Arterial Blood Base Excess 5.2 (-2-2) H 15 (-2-2) *H Gerard Test Positive Positive Test 07/12/19 12:45 White Blood Count 11.1 K/UL (4.8-10.8) H Red Blood Count 4.18 M/UL (4.20-5.40) L Hemoglobin 8.6 G/DL (12.0-16.0) L Hematocrit 29.4 % (37.0-47.0) L Mean Corpuscular Volume 71 FL (80-99) L Mean Corpuscular Hemoglobin 20.5 PG (27.0-31.0) L Mean Corpuscular Hemoglobin Concent 29.1 G/DL (32.0-36.0) L Red Cell Distribution Width 18.9 % (11.6-14.8) H Platelet Count 304 K/UL (150-450) Mean Platelet Volume 5.3 FL (6.5-10.1) L Neutrophils (%) (Auto) 75.3 % (45.0-75.0) H Lymphocytes (%) (Auto) 16.0 % (20.0-45.0) L Monocytes (%) (Auto) 7.3 % (1.0-10.0) Eosinophils (%) (Auto) 0.8 % (0.0-3.0) Basophils (%) (Auto) 0.7 % (0.0-2.0) Sodium Level 144 MMOL/L (136-145) Potassium Level 4.2 MMOL/L (3.5-5.1) Chloride Level 104 MMOL/L (98-107) Carbon Dioxide Level 39 MMOL/L (21-32) H Anion Gap 1 mmol/L (5-15) L Blood Urea Nitrogen 14 mg/dL (7-18) Creatinine 0.3 MG/DL (0.55-1.30) L Estimat Glomerular Filtration Rate > 60 mL/min (>60) Glucose Level 102 MG/DL (74-106) Lactic Acid Level 1.40 mmol/L (0.4-2.0) Calcium Level 7.9 MG/DL (8.5-10.1) L Phosphorus Level 3.7 MG/DL (2.5-4.9) Magnesium Level 2.0 MG/DL (1.8-2.4) Total Bilirubin 0.2 MG/DL (0.2-1.0) Aspartate Amino Transf (AST/SGOT) 9 U/L (15-37) L Alanine Aminotransferase (ALT/SGPT) 13 U/L (12-78) Alkaline Phosphatase 86 U/L (46-116) Troponin I 0.003 ng/mL (0.000-0.056) Total Protein 7.2 G/DL (6.4-8.2) Albumin 2.8 G/DL (3.4-5.0) L Globulin 4.4 g/dL Albumin/Globulin Ratio 0.6 (1.0-2.7) L Height (Feet): 4 Height (Inches): 10.00 Weight (Pounds): 145 Medications Current Medications Medications (Trade) Dose Ordered Sig/Sandeep Route PRN Reason Start Time Stop Time Status Last Admin Dose Admin Acetaminophen (Tylenol) 650 mg Q6H PRN ORAL Mild Pain/Temp > 100.5 07/12/19 12:30 08/11/19 12:29 Albuterol/ Ipratropium (Albuterol/ Ipratropium) 3 ml Q4HRT PRN HHN Shortness of Breath 07/12/19 15:00 07/17/19 03:44 Apixaban (Eliquis) 5 mg BID ORAL 07/12/19 18:00 08/11/19 08:59 Aztreonam 2 gm/ Dextrose 110 ml @ 220 mls/hr Q8H IVPB 07/12/19 17:00 07/19/19 08:59 Pantoprazole (Protonix) 40 mg DAILY ORAL 07/13/19 09:00 08/11/19 08:59 Sennosides (Senokot) 8.6 mg BID ORAL 07/12/19 18:00 08/11/19 08:59 Vancomycin HCl (Vanco rx to dose) 1 ea DAILY PRN MISC rx protocol 07/13/19 09:00 08/11/19 08:59 Vancomycin HCl 1 gm/Dextrose 275 ml @ 183.708 mls/hr Q12H IVPB 07/12/19 17:00 12/26/19 04:59 Assessment/Plan Status: stable Assessment/Plan: 49 yo female with likely PNA and UTI. UTI may be just colonization given her SP tube is chronic. Unclear stone history. 1. abx per ID 2. change SP tube every 4-6 weeks. Eris Devi M.D. Jul 12, 2019 15:15
--- NOTE | 2019-07-12 16:15 | Consultation ---
DATE OF CONSULTATION: 07/12/2019 PULMONARY CONSULTATION CONSULTING PHYSICIAN: Regino Pearson M.D. REFERRING PHYSICIAN: Denise Neri M.D. REASON FOR CONSULTATION: Respiratory failure. HISTORY OF PRESENT ILLNESS: The patient is a very unfortunate 49-year-old female with a history of spina bifida, CREDIT PRODUCT ANALYST shunt, decubitus ulcers, nephrostomy tubes, presenting with bilateral pneumonia, respiratory failure, and UTI. She was initially on BiPAP on the floor, but subsequently was retaining, a repeat gas showed a pCO2 of 119, so I ordered her to be intubated and no history was obtainable from the patient. The patient was on Eliquis twice a day. It is unclear why. Nonetheless, she was intubated having bilateral rhonchi and thick secretions. I will proceed with bronchoscopy shortly. PAST MEDICAL HISTORY: 1. Spina bifida. 2. CREDIT PRODUCT ANALYST shunt. 3. Nephrostomy. 4. Decubitus ulcer. 5. Likely prior DVT. ALLERGIES: Penicillin. MEDICATIONS: Prior to admission medications reviewed. Current medications reviewed. SOCIAL HISTORY: Unobtainable. FAMILY HISTORY: Unobtainable. REVIEW OF SYSTEMS: Unobtainable. PHYSICAL EXAMINATION: VITAL SIGNS: The patient is intubated. T-max 99.5, pulse 97, blood pressure 120/67, respiratory rate 20, and saturating 97% on 2 L. GENERAL: She is an overweight female, in no distress, intubated. HEENT: Normocephalic, atraumatic. Oropharynx is clear. NECK: Supple. CHEST: Bilateral coarse rhonchi. HEART: Regular rate and rhythm. ABDOMEN: Soft, nontender, and nondistended. EXTREMITIES: No cyanosis, clubbing. Trace edema is noted. Suprapubic catheter noted. ANCILLARY DATA: White count 11.1, hemoglobin 8.6, hematocrit 29.4, and platelet count 304. ABG 7.2/19/91/46/95. Chemistry reviewed. Urinalysis noted. Cultures pending. Chest x-ray, diffuse bilateral infiltrates. ASSESSMENT: The patient is a 49-year-old female with a history of spina bifida, prior decubitus ulcers, suprapubic catheter, presenting with acute on chronic respiratory failure with bilateral pneumonia and UTI, now intubated. PROBLEM LIST: 1. Ventilator-dependent respiratory failure. 2. Acute on chronic hypercapnic respiratory failure. 3. Bilateral pneumonia. 4. UTI. 5. Spina bifida. 6. Decubitus ulcer. 7. Likely prior venous thromboembolism. 8. Suprapubic catheter. 9. History of CREDIT PRODUCT ANALYST shunt. TREATMENT PLAN: 1. Continue ventilatory support. 2. Settings reviewed and adjusted. 3. Repeat ABG pending. 4. Bronchoscopy today for BAL and lavage. 5. Antibiotics per ID (the patient is currently on aztreonam and vancomycin). 6. Galye-und-njksf and p.r.n. DuoNebs. 7. Monitor volumes and renal function, IV fluid hydration. 8. The patient may need a central line for pressors if she does not respond to IV fluids. 9. DVT prophylaxis. The patient is on Eliquis. 10. We will place an NG tube for oral medications. If NG tube unable to be placed, we will adjust Eliquis to heparin. 11. Continue PPI. 12. The patient is a Full Code, continue to discuss goals of the care. 13. A 60 minutes critical care time spent in the care of this patient. Dr. Neri, thank you for allowing me to assist in the care of your patient. If I may be of any assistance in the future, please do not hesitate to ask. Jimmy Griffin JOB#: [id number] CC:
--- NOTE | 2019-07-12 17:15 | Consultation ---
DATE OF CONSULTATION: 07/12/2019 INFECTIOUS DISEASE CONSULTATION CONSULTING PHYSICIAN: Gigi Sanabria M.D. REQUESTING PHYSICIAN: Denise Neri M.D. REASON FOR CONSULTATION: Pneumonia, catheter-associated UTI, and sepsis with respiratory failure. Recommendation for antibiotics treatment in the patient with penicillin allergy. HISTORY OF PRESENT ILLNESS: The patient is a 49-year-old female with past medical history of spina bifida and WINDOWS SYSTEMS ADMIN shunt placement, who is a wheelchair bound and paraplegic, status post suprapubic catheter, was brought into the emergency room at [facility] with progressive shortness of breath started yesterday. The patient was choking in pain as per family report, she was agitated and was trying to pull her oxygen off. Paramedics were called and her oxygen saturation was found to be 88% on room air. The patient was started on oxygen and was brought into the emergency room at [facility] for evaluation. No fever or chills as per the family. Her temperature was 98.4, saturating 99% on room air. Chest x-ray showed bilateral basal infiltrates concerning for pneumonia. Urinalysis showed evidence of infection. The patient was started on vancomycin and Levaquin and admitted to the step-down unit. Infectious Disease consultation was requested for antibiotics treatment and further management since she is allergic to penicillin. The patient was transferred subsequently to ICU due to alteration in mental status and more hypoxemia with CO2 retention up to 119 based on her last ABG blood test and she is being intubated at this point. She could not provide any history. She was lethargic and barely responsive to her name. REVIEW OF SYSTEMS: Unable to obtain. The patient could not provide any details. Per history was mainly obtained from the medical record by nursing staff. PAST MEDICAL HISTORY: Significant for hypertension, diabetes, paraplegia, spina bifida, status post WINDOWS SYSTEMS ADMIN shunt. PAST SURGICAL HISTORY: She had WINDOWS SYSTEMS ADMIN shunt and suprapubic catheter placement. FAMILY HISTORY: Noncontributory. SOCIAL HISTORY: The patient lives at home. She is bed ridden with family. No recent drugs, tobacco, or alcohol. ALLERGIES: She is allergic to penicillin, unclear reaction. Tolerated carbapenem and cephalosporin as per the report. LABORATORY AND DIAGNOSTIC DATA: Laboratories showed white count of 11.1, hemoglobin of 8.6, platelet count of 304. BUN of 19, creatinine of 0.4. AST of 12, ALT of 21, alkaline phosphatase of 98. Urinalysis showed +3 leukocyte esterase, wbc too numerous to count, and many urine bacteria. Imaging, chest x-ray on admission showed bilateral pulmonary edema, infiltrates, possible small pleural effusion. Repeated chest x-ray today showed persistent diffuse hazy opacity throughout the lungs, slightly decreased in the right lung, possible small bilateral pleural effusion. PHYSICAL EXAMINATION: VITAL SIGNS: Temperature 99.5, pulse 96, respirations 19, saturation 98% on BiPAP with FiO2 of 100%. GENERAL: Middle-aged female, morbidly obese, lethargic, barely responsive, lying in bed, not in acute distress. HEENT: Normocephalic and atraumatic. Pupils reactive to light. Pale sclerae. Moist oral mucosa. No exudate or ulceration. NECK: Supple. No lymphadenopathy. Old scar in the lower mid anterior neck site. CARDIOVASCULAR: She is tachycardic. S1, S2 normal. No murmur or gallop. LUNGS: She had diminished breathing sounds at the bases with crackles. Normal breathing efforts. ABDOMEN: Soft, obese, nontender, distended . Hypoactive bowel sounds. Suprapubic catheter site with mild draining of brownish fluid around the catheter and minimally inflamed skin. GENITOURINARY: Normal genitalia with suprapubic catheter in place. EXTREMITIES: No edema or cyanosis. No clubbing. SKIN: No rash. No hives. She had sacral pressure wound with no drainage or foul smell. ASSESSMENT AND RECOMMENDATION: 1. Pneumonia of both lower lobes, possible aspiration related. Continue vancomycin dose per pharmacy. Start aztreonam empirically since she has allergy to penicillin. We will send sputum culture if she produces any. Aspiration precaution. Keep head of bed more than 30 degrees. 2. Catheter-associated UTI. We will send urine culture and start aztreonam empirically. Continue local catheter care. May need to change her suprapubic catheter, if she grew any resistant organism from the urine. 3. Sepsis due to the above. Continue wide-spectrum antibiotics. Pending cultures. Continue blood pressure support. 4. Decubitus skin ulcer of the sacrum. Continue offloading and local wound care as per hospital protocol. 5. Respiratory failure with hypoxemia and CO2 retention. Due to the above on BiPAP, but being now intubated as per Pulmonary. Monitor ABG and chest x-ray. Pulmonary team is following. 6. Spina bifida. Continue supportive care as needed. Thank you for the consult. ID will continue to follow. Gigi Sanabria M.D. DR: ARNULFO JOB#: [id number] CC: [email or web address]
[2019-07-12] MEDS: Aztreonam Inj 2 GM in D5W 110 ML IVPB SCH (17:48)
[2019-07-12] MEDS: Vancomycin 1 GM in D5W 275 ML IVPB SCH (17:49)
--- NOTE | 2019-07-12 18:30 | NUR ---
NURSE NOTES: NGT was placed in left nare per MD order. KUB has been done and confirmed placement. Pt was cleaned, oral care done, gown/bed linens were changed. Pt has been repositioned. IV antibiotics are infusing. VS remain stable.
--- NOTE | 2019-07-12 18:43 | Diagnostic Imaging Report ---
History: NGT Exam: XR ABDOMEN Comparison: FINDINGS/IMPRESSION: 3 images. Nasogastric tube tip at the body of the stomach.
--- NOTE | 2019-07-12 19:30 | NUR ---
HAND-OFF: Report given to Ioana CARTER. Endorsed plan of care. VS remain stable.
--- NOTE | 2019-07-12 19:30 | NUR ---
NURSE NOTES: Received report from EMMA Aguilera. Pt is awake, alert, able to make needs known to staff. no moaning no facial grimaces. no s/s of acute distress noted. SR on radiation monitor HR 62. ETT to vent. satting 100%. Bilateral diminished lung sounds are noted on auscultation. Peripheral IV access on left FA #18G, patent/intact. Suprapubic catheter intact draining with light christy urine with sediments. Abdomen is round, soft, nontender to touch with hypoactive bowel sounds. Noted with sacral old, healed pressure wound DTI and right hip skin tear. Bilateral lower extremities feet are contracted , able to squeeze hands.bed alarm on. bed locked and in low position. will continue plan of care.
--- NOTE | 2019-07-12 20:49 | NUR ---
NURSE NOTES: Patient Temp 100.6 axillary cooling measure provided not effective. Tylenol 650mg via NGT given. will recheck Temp. Brother at bedside. Oral care and suctioned patient. noted with white tongue, will monitor and inform MD in am.
--- NOTE | 2019-07-12 21:30 | NUR ---
NURSE NOTES: Temp 99.0 axillary. patient watching TV. denies any pain or discomfort. skin warm and dry to touch.frequent visual checks continued. turned and repositioned. placed call light on patient right hand. will continue plan of care.
--- NOTE | 2019-07-12 23:30 | NUR ---
NURSE NOTES: Patient in bed sleeping comfortably. no s/s of acute distress noted. no n/v. no moaning no facial grimaces. turned and repositioned. frequent visual checks continued.
[2019-07-13] VITALS (23 sets, daily range): BP systolic 98–134; BP diastolic 45–73
[2019-07-13] MEDS: Aztreonam Inj 2 GM in D5W 110 ML IVPB SCH ×2 (00:54→09:04)
--- NOTE | 2019-07-13 01:30 | NUR ---
NURSE NOTES: Bed bath given tolerated well. suprapubic cath intact draining. denies any pain or discomfort. call light within easy reach. oral care and oral suctioned provided.
--- NOTE | 2019-07-13 03:30 | NUR ---
NURSE NOTES: patient in bed sleeping comfortably, easily arousable to verbal and tactile stimuli.suprapubic cath intact draining. denies any pain or discomfort. call light within easy reach.oral care and oral suctioned provided. Turned and repositioned. will continue plan of care.
[2019-07-13] MEDS: Vancomycin 1 GM in D5W 275 ML IVPB SCH ×2 (05:22→17:33)
--- NOTE | 2019-07-13 05:30 | NUR ---
NURSE NOTES: Patient in bed sleeping comfortably. no s/s of acute distress noted. no n/v. no moaning no facial grimaces. turned and repositioned. oral care provided, suctioned orally for secretion.frequent visual checks continued. will continue plan of care.
[2019-07-13 05:40] LABS: BASOPHILS % (AUTO) 0.3 % (0.0-2.0); EOSINOPHILS % (AUTO) 0.6 % (0.0-3.0); HEMATOCRIT 29.5 % (37.0-47.0); HEMOGLOBIN 9.3 G/DL (12.0-16.0); MEAN CORPUSCULAR VOLUME 67 FL (80-99); MONOCYTES % (AUTO) 5.4 % (1.0-10.0); NEUTROPHILS % (AUTO) 81.7 % (45.0-75.0); PLATELET COUNT 261 K/UL (150-450); WHITE BLOOD COUNT 16.9 K/UL (4.8-10.8)
[2019-07-13 06:00] LABS: ALANINE AMINOTRANSFERASE 13 U/L (12-78); ALBUMIN 2.5 G/DL (3.4-5.0); ALBUMIN/GLOBULIN RATIO 0.6 (1.0-2.7); ALKALINE PHOSPHATASE 79 U/L (46-116); ANION GAP 6 mmol/L (5-15); ASPARTATE AMINO TRANSFERASE 9 U/L (15-37); BILIRUBIN,TOTAL 0.3 MG/DL (0.2-1.0); BLOOD UREA NITROGEN 17 mg/dL (7-18); CARBON DIOXIDE 32 MMOL/L (21-32); CHLORIDE 104 MMOL/L (98-107); CREATININE 0.4 MG/DL (0.55-1.30); POTASSIUM 3.1 MMOL/L (3.5-5.1); SODIUM 142 MMOL/L (136-145)
--- NOTE | 2019-07-13 07:00 | NUR ---
RESPIRATORY NOTES: Received Patient on Vent settings ACVC 500, RR 14, FIO2 40%, PEEP +5. Patient intubated with a 8.0 ETT with a lip line of 21cm, secured with anchorfast. Suctioned small amount of quiroz secretions through ETT. Patient awake and alert. Vent plugged into red outlet. Alarms are on and audible. Will continue to monitor throughout the day.
--- NOTE | 2019-07-13 07:34 | NUR ---
HAND-OFF: Report given to Francisco Bashir RN.Endorsed to follow up with Md patient with white tongue and low grade fever.
--- NOTE | 2019-07-13 07:35 | NUR ---
NURSE NOTES: Late entry; PT and report received from EMMA Triplett; PT received intubated ETT 8.0; 21cm @ R-lip; AC 14, TV 500, 40%, peep 5; no S/S of respiratory distress, site monitor shows BP 109/51; HR 57; o2 saturation 99%; reported PT had 1 episode of fever overnight, fan is on at bedside, cooling measures with moist towel implemented; NPO status PT has NGtube in L-nare; has suprapubic catheter; paraplegia bilateral lower extremities due to spinal bifida; lower extremities elevated on pillows, PT has bilateral upper extremities 4/5 strength; able to follow commands; nod head yes/no to questions; responsive to name; press call light for RN; PIV in L-forearm 18g TKO flushes well, patent, intact; will continue with plan of care for PT.
--- NOTE | 2019-07-13 08:18 | NUR ---
NURSE NOTES: MD Halle made rounds, updates given and reported morning labs for PT; orders given for K to be replaced with 40mEq PO once; and nystatin. Will place orders for .
--- NOTE | 2019-07-13 08:49 | General Progress Note ---
Assessment/Plan Status: stable Assessment/Plan: S, O: Intubated, awake, not following command, vent setting reviewed PHYSICAL EXAMINATION:HEAD AND NECK: intubated , Atraumatic, normocephalic. CHEST: Diffuse bronchial breathing sounds. No wheezing.HEART: S1, S2. Regular rate and rhythm. ABDOMEN: Obese, positive for suprapubic catheter.MUSCULOSKELETAL: The atrophy of the lower extremities, paraplegia are noted.NEUROLOGY: The patient is Intubated, limited eval LABORATORY AND DIAGNOSTIC DATA: Dated July 13 reviewed ASSESSMENT AND PLAN: 1. Sepsis - healthcare associated. 2. Pneumonia, healthcare associated. 3. UTI - healthcare associated. 4. Congenital abnormalities, spina bifida, paraplegic, wheelchair-bound. 5. On New oral anticoagulation 6. GI and DVT prophylaxis. PLAN OF CARE: Current Pulmonary and ID care S/P Bronch, pending cultures Notes from urology, ID Pulmonary reviewed Discussed the care with ID and Pulmonary I spent 60 minutes in direct patient care. Subjective Allergies: Coded Allergies: PENICILLIN G (Verified Allergy, Unknown, 12/02/18) Tolerates cabapenem, cephalosporin PENICILLINS (Unverified Allergy, Unknown, 12/02/18) Objective Last 24 Hour Vital Signs Date Time Temp Pulse Resp B/P (MAP) Pulse Ox O2 Delivery O2 Flow Rate FiO2 07/13/19 08:38 56 14 40 07/13/19 07:17 62 14 40 07/13/19 06:00 58 14 103/54 (70) 99 07/13/19 05:16 55 14 40 07/13/19 05:00 60 14 100/73 (82) 100 07/13/19 04:00 Mechanical Ventilator 07/13/19 04:00 57 07/13/19 04:00 40 07/13/19 04:00 99.1 58 14 101/50 (67) 100 07/13/19 03:29 61 14 40 07/13/19 03:00 54 14 116/53 (74) 100 07/13/19 02:00 56 14 104/45 (64) 100 07/13/19 01:13 65 14 40 07/13/19 01:00 63 14 126/54 (78) 100 07/13/19 00:00 58 07/13/19 00:00 98.9 57 16 120/51 (74) 100 07/13/19 00:00 40 07/13/19 00:00 Mechanical Ventilator 07/12/19 23:00 58 16 109/53 (71) 100 07/12/19 22:40 53 14 40 07/12/19 22:00 60 16 114/65 (81) 100 07/12/19 21:19 99.0 07/12/19 21:00 64 14 40 07/12/19 21:00 100.6 62 16 114/65 (81) 100 07/12/19 20:00 40 07/12/19 20:00 Mechanical Ventilator 07/12/19 20:00 71 07/12/19 20:00 100.3 71 16 121/53 (75) 100 07/12/19 19:00 77 16 112/51 (71) 100 07/12/19 18:45 61 14 40 07/12/19 18:00 77 16 110/60 (77) 100 07/12/19 17:02 68 14 40 07/12/19 17:00 63 14 114/58 (76) 100 07/12/19 16:00 66 07/12/19 16:00 40 07/12/19 16:00 98.9 69 14 103/46 (65) 100 07/12/19 16:00 Mechanical Ventilator 07/12/19 15:00 64 14 96/50 (65) 100 07/12/19 14:28 80 14 100 Mechanical Ventilator 40 07/12/19 14:20 79 14 40 07/12/19 14:00 73 14 110/46 (67) 98 07/12/19 13:00 99.9 89 17 111/59 (76) 100 07/12/19 12:00 98.2 96 20 114/55 (74) 99 07/12/19 12:00 Mechanical Ventilator 07/12/19 12:00 88 07/12/19 10:38 96 19 98 Bi-Pap 100 07/12/19 10:36 99 19 98 Facial 100 07/12/19 09:44 Bi-pap 07/12/19 09:00 Nasal Cannula 2.0 Intake and Output 07/12/19 07/13/19 18:59 06:59 Intake Total 1000 ml 757.416 ml Output Total 230 ml 565 ml Balance 770 ml 192.416 ml Intake IV Total 1000 ml 697.416 ml Other 60 ml Output Urine Total 230 ml 565 ml # Bowel Movements 3 1 Laboratory Tests 07/12/19 10:00: Hemoglobin A1c 6.0, Pro-B-Type Natriuretic Peptide 358H, Triglycerides Level 126 , Cholesterol Level 100, LDL Cholesterol 63, HDL Cholesterol 21L, Cholesterol/ HDL Ratio 4.8H, Thyroid Stimulating Hormone (TSH) 2.756 07/12/19 10:15: Arterial Blood pH 7.210*L, Arterial Blood Partial Pressure CO2 90.2*H, Arterial Blood Partial Pressure O2 86.1, Arterial Blood HCO3 35.3H, Arterial Blood Oxygen Saturation 94.7L, Arterial Blood Base Excess 5.2H, Gerard Test Positive 07/12/19 11:26: Arterial Blood pH 7.209*L, Arterial Blood Partial Pressure CO2 119.7*H, Arterial Blood Partial Pressure O2 91.9, Arterial Blood HCO3 46.7*H, Arterial Blood Oxygen Saturation 95.8, Arterial Blood Base Excess 15*H, Gerard Test Positive 07/12/19 12:45: White Blood Count 11.1H, Red Blood Count 4.18L, Hemoglobin 8.6L, Hematocrit 29.4L, Mean Corpuscular Volume 71L, Mean Corpuscular Hemoglobin 20.5L, Mean Corpuscular Hemoglobin Concent 29.1L, Red Cell Distribution Width 18.9H, Platelet Count 304, Mean Platelet Volume 5.3L, Neutrophils (%) (Auto) 75.3H, Lymphocytes (%) (Auto) 16.0L, Monocytes (%) (Auto) 7.3, Eosinophils (%) (Auto) 0.8, Basophils (%) (Auto) 0.7, Sodium Level 144, Potassium Level 4.2, Chloride Level 104, Carbon Dioxide Level 39H, Anion Gap 1L, Blood Urea Nitrogen 14, Creatinine 0.3L, Estimat Glomerular Filtration Rate > 60, Glucose Level 102, Lactic Acid Level 1.40, Calcium Level 7.9L, Phosphorus Level 3.7, Magnesium Level 2.0, Total Bilirubin 0.2, Aspartate Amino Transf (AST/SGOT) 9L, Alanine Aminotransferase (ALT/SGPT) 13, Alkaline Phosphatase 86, Troponin I 0.003, Total Protein 7.2, Albumin 2.8L, Globulin 4.4, Albumin/Globulin Ratio 0.6L 07/12/19 15:40: Arterial Blood pH 7.460H, Arterial Blood Partial Pressure CO2 50.1H, Arterial Blood Partial Pressure O2 86.1, Arterial Blood HCO3 34.8H, Arterial Blood Oxygen Saturation 97.0, Arterial Blood Base Excess 9.7*H, Gerard Test Positive 07/12/19 17:00: D-Dimer 0.72H 07/13/19 05:03: White Blood Count 16.9#H, Red Blood Count 4.40, Hemoglobin 9.3L, Hematocrit 29.5L, Mean Corpuscular Volume 67L, Mean Corpuscular Hemoglobin 21.1L, Mean Corpuscular Hemoglobin Concent 31.4L, Red Cell Distribution Width 18.0H, Platelet Count 261, Mean Platelet Volume 5.6L, Neutrophils (%) (Auto) 81.7H, Lymphocytes (%) (Auto) 12.0L, Monocytes (%) (Auto) 5.4, Eosinophils (%) (Auto) 0.6, Basophils (%) (Auto) 0.3, Sodium Level 142, Potassium Level 3.1L, Chloride Level 104, Carbon Dioxide Level 32, Anion Gap 6, Blood Urea Nitrogen 17, Creatinine 0.4L, Estimat Glomerular Filtration Rate > 60, Glucose Level 124H, Calcium Level 8.0L, Total Bilirubin 0.3, Aspartate Amino Transf (AST/SGOT) 9L, Alanine Aminotransferase (ALT/SGPT) 13, Alkaline Phosphatase 79, Total Protein 6.7, Albumin 2.5L, Globulin 4.2, Albumin/Globulin Ratio 0.6L Height (Feet): 4 Height (Inches): 10.00 Weight (Pounds): 131 Denise Neri MD Jul 13, 2019 08:49
[2019-07-13] MEDS: Eliquis 5mg tablet ORAL SCH ×2 (09:05→17:33)
[2019-07-13] MEDS: Sennosides 8.6mg tab ORAL SCH ×2 (09:05→17:33)
[2019-07-13] MEDS: Nystatin Susp 500,000 units/5ml ORAL SCH ×4 (09:06→21:25)
--- NOTE | 2019-07-13 10:12 | Diagnostic Imaging Report ---
EXAM: XR Chest, 1 View CLINICAL HISTORY: F/U TECHNIQUE: Frontal view of the chest. COMPARISON: Chest x-rays dated 07/12/19 FINDINGS: Lungs: Subsegmental atelectasis versus infiltrates in bilateral lung bases. Mild bilateral pulmonary vascular congestion. Pleural space: Cannot exclude tiny effusions. No visible pneumothorax. Heart: Unremarkable. No cardiomegaly. Mediastinum: Unremarkable. Bones/joints: Unremarkable. Tubes, lines and devices: Stable positioning of endotracheal tube. Telemetry leads overlie the thorax. NG tube extends below the diaphragm and its tip is not visualized. GRINDING WHEEL OPERATOR shunt catheter tubing coursing down the right neck and thorax. IMPRESSION: No significant interval change from the prior exam.
--- NOTE | 2019-07-13 10:41 | NUR ---
NURSE NOTES: Informed MD Lili about PT having fever last night and this morning, informed cooling measures in place, d-dimer lab results from this morning, PT having episodes of SB; HR going as low as 46. No new orders given by . Will continue to monitor PT.
--- NOTE | 2019-07-13 10:59 | NUR ---
RD ASSESSMENT & RECOMMENDATIONS SEE CARE ACTIVITY FOR COMPLETE ASSESSMENT DAILY ESTIMATED NEEDS: Needs based on wound, critical care/ 47.6kg abw 25-30 kcals/kg 4403-1695 total kcals 1.25-2 g protein/kg 60-95 g total protein 25-30 mL/kg 6812-5676 total fluid mLs NUTRITION DIAGNOSIS: Increased kcal/pro needs r/t wound healing as evidenced by h/o spina bifida, adm w/ R-ischial and sacral wound, eval pending. ENTERAL NUTRITION RECOMMENDATIONS: Vital AF 1.2 @50ml/hr x24 hrs to provide 1200ml, 1440 kcal, 90g pro, 973ml free H2O - As medically able, rec Vital 1.2 to meet est nutritional needs if unable to wean. - With GI access, start @20ml/hr for 6 hrs, advance as tolerated 10ml/hr q4-6 hrs to goal. - Flush per MD. HOB over 30 degrees - TF at goal meets 100% est kcal and pro needs: ADDITIONAL RECOMMENDATIONS: 1) Wound care: w/ GI access add GREGG in 4oz H2O BID Add VIT C 250mg daily; F/up w/ WC eval 2) Maintain calibrated bed scale wts 3) NISS for BG control on TF . . .
--- NOTE | 2019-07-13 12:56 | Pulmonolgy Critical Care Note ---
Critical Care - Asmt/Plan Problems: (1) Pneumonia of both lower lobes Assessment & Plan: VDRF, intubated 07/12/19, S/P FOB 07/12/19 (2) Catheter-associated urinary tract infection Assessment & Plan: GNR (3) Respiratory failure with hypoxia Assessment & Plan: Acute on chronic hypercapnic and hypoxemic RF 2/2 PNA VDRF as able Duplex neg, minimally elevated d-dimer, unlikely VTE and already on a NOAC (4) HCAP (healthcare-associated pneumonia) (5) Paraplegia (6) Sepsis (7) Suprapubic catheter (8) Restrictive lung disease due to kyphoscoliosis (9) Decubitus skin ulcer (10) Spina bifida Respiratory: monitor respiratory rate, weaning trial - SBT in am, other - HHN's , pulmonary hygiene/mobilize Cardiac: continue to monitor HR/BP Renal: check electrolytes, other - Replet K, start [id number]@100/hr Infectious Disease: check cultures, continue antibiotics - Aztreonam/Vanco per ID Gastrointestinal: start feedings - NGTF's, hold in am for SBT Endocrine: monitor blood sugar Hematologic: monitor H/H Neurologic: keep patient comfortable Prophylaxis: Protonix, other - Eliquis Disposition: keep in ICU Time Spent (Minutes): 40 Notes 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, ID Discussed with: nurses, consultants, other - FC, continue to discuss [facility] Critical Care - Objective Last 24 Hour Vital Signs Date Time Temp Pulse Resp B/P (MAP) Pulse Ox O2 Delivery O2 Flow Rate FiO2 07/13/19 12:00 99.9 62 14 104/54 (71) 100 07/13/19 12:00 40 07/13/19 12:00 Mechanical Ventilator 07/13/19 12:00 64 07/13/19 11:00 52 14 104/48 (66) 100 07/13/19 10:57 53 14 40 07/13/19 10:00 54 14 98/58 (71) 100 07/13/19 09:53 100.4 07/13/19 09:00 57 14 111/53 (72) 100 07/13/19 08:38 56 14 40 07/13/19 08:00 100.7 57 14 109/51 (70) 99 07/13/19 08:00 Mechanical Ventilator 07/13/19 08:00 66 07/13/19 08:00 40 07/13/19 07:17 62 14 40 07/13/19 07:00 65 14 105/65 (78) 98 07/13/19 06:00 58 14 103/54 (70) 99 07/13/19 05:16 55 14 40 07/13/19 05:00 60 14 100/73 (82) 100 07/13/19 04:00 Mechanical Ventilator 07/13/19 04:00 57 07/13/19 04:00 40 07/13/19 04:00 99.1 58 14 101/50 (67) 100 07/13/19 03:29 61 14 40 07/13/19 03:00 54 14 116/53 (74) 100 07/13/19 02:00 56 14 104/45 (64) 100 07/13/19 01:13 65 14 40 07/13/19 01:00 63 14 126/54 (78) 100 07/13/19 00:00 58 07/13/19 00:00 98.9 57 16 120/51 (74) 100 07/13/19 00:00 40 07/13/19 00:00 Mechanical Ventilator 07/12/19 23:00 58 16 109/53 (71) 100 07/12/19 22:40 53 14 40 07/12/19 22:00 60 16 114/65 (81) 100 07/12/19 21:00 64 14 40 07/12/19 21:00 100.6 62 16 114/65 (81) 100 07/12/19 20:00 40 07/12/19 20:00 Mechanical Ventilator 07/12/19 20:00 71 07/12/19 20:00 100.3 71 16 121/53 (75) 100 07/12/19 19:00 77 16 112/51 (71) 100 07/12/19 18:45 61 14 40 07/12/19 18:00 77 16 110/60 (77) 100 07/12/19 17:02 68 14 40 07/12/19 17:00 63 14 114/58 (76) 100 07/12/19 16:00 66 07/12/19 16:00 40 07/12/19 16:00 98.9 69 14 103/46 (65) 100 07/12/19 16:00 Mechanical Ventilator 07/12/19 15:00 64 14 96/50 (65) 100 07/12/19 14:28 80 14 100 Mechanical Ventilator 40 07/12/19 14:20 79 14 40 07/12/19 14:00 73 14 110/46 (67) 98 07/12/19 13:00 99.9 89 17 111/59 (76) 100 Status: awake - intubated Condition: critical HEENT: atraumatic, normocephalic Neck: full ROM Lungs: rhonchi Heart: HR/BP stable Abdomen: soft, non-tender, active bowel sounds, other - SPC Extremities: no C/C/E Decubiti: location - sac , stage - DTI Micro: Microbiology Date/Time Source Procedure Growth Status 07/11/19 21:45 Blood Blood Culture - Preliminary NO GROWTH AFTER 24 HOURS Resulted 07/11/19 21:30 Blood Blood Culture - Preliminary NO GROWTH AFTER 24 HOURS Resulted 07/12/19 13:35 Sputum Expectorated Gram Stain - Final Resulted 07/12/19 13:35 Sputum Expectorated Sputum Culture Pending Resulted 07/12/19 12:45 Urine,Suprapubic Urine Culture - Preliminary NO GROWTH Resulted 07/11/19 21:45 Urine,Clean Catch Urine Culture - Preliminary Gram Negative Gustavo Resulted Blood Sugars: BS controlled Critical Care - Subjective ROS Limited/Unobtainable: Yes ICU Day: 2 Intubation Day: 2 Interval Events: S/P FOB GNR in urine SB this am + lots of oral secretions Awake and alert on vent Condition: unchanged IV Access: peripheral EKG Rhythm: Sinus Bradycardia FI02: 40 Vent Support Breath Rate: 14 Vent Support Mode: AC Vent Tidal Volume: 500 Sputum Amount: Moderate PEEP: 5.0 PIP: 28 Secretions: Moderate thin clear Fluids: SLIV Drips: N/A I&O: Intake and Output 07/12/19 07/13/19 18:59 06:59 Intake Total 1000 ml 848.708 ml Output Total 230 ml 565 ml Balance 770 ml 283.708 ml Intake IV Total 1000 ml 788.708 ml Other 60 ml Output Urine Total 230 ml 565 ml # Bowel Movements 3 1 Subjective: ANDREWS CXR: B infiltrates ET-Tube: 8.0 ET Position: 21 Labs: Laboratory Tests Test 07/12/19 15:40 07/12/19 17:00 07/13/19 05:03 Arterial Blood pH 7.460 (7.350-7.450) Arterial Blood Partial Pressure CO2 50.1 mmHg (35.0-45.0) H Arterial Blood Partial Pressure O2 86.1 mmHg (75.0-100.0) Arterial Blood HCO3 34.8 mmol/L (22.0-26.0) H Arterial Blood Oxygen Saturation 97.0 % (95-100) Arterial Blood Base Excess 9.7 (-2-2) *H Gerard Test Positive D-Dimer 0.72 mg/L FEU (0.00-0.49) H White Blood Count 16.9 K/UL (4.8-10.8) #H Red Blood Count 4.40 M/UL (4.20-5.40) Hemoglobin 9.3 G/DL (12.0-16.0) L Hematocrit 29.5 % (37.0-47.0) L Mean Corpuscular Volume 67 FL (80-99) L Mean Corpuscular Hemoglobin 21.1 PG (27.0-31.0) L Mean Corpuscular Hemoglobin Concent 31.4 G/DL (32.0-36.0) L Red Cell Distribution Width 18.0 % (11.6-14.8) H Platelet Count 261 K/UL (150-450) Mean Platelet Volume 5.6 FL (6.5-10.1) L Neutrophils (%) (Auto) 81.7 % (45.0-75.0) H Lymphocytes (%) (Auto) 12.0 % (20.0-45.0) L Monocytes (%) (Auto) 5.4 % (1.0-10.0) Eosinophils (%) (Auto) 0.6 % (0.0-3.0) Basophils (%) (Auto) 0.3 % (0.0-2.0) Sodium Level 142 MMOL/L (136-145) Potassium Level 3.1 MMOL/L (3.5-5.1) L Chloride Level 104 MMOL/L (98-107) Carbon Dioxide Level 32 MMOL/L (21-32) Anion Gap 6 mmol/L (5-15) Blood Urea Nitrogen 17 mg/dL (7-18) Creatinine 0.4 MG/DL (0.55-1.30) L Estimat Glomerular Filtration Rate > 60 mL/min (>60) Glucose Level 124 MG/DL (74-106) H Calcium Level 8.0 MG/DL (8.5-10.1) L Total Bilirubin 0.3 MG/DL (0.2-1.0) Aspartate Amino Transf (AST/SGOT) 9 U/L (15-37) L Alanine Aminotransferase (ALT/SGPT) 13 U/L (12-78) Alkaline Phosphatase 79 U/L (46-116) Total Protein 6.7 G/DL (6.4-8.2) Albumin 2.5 G/DL (3.4-5.0) L Globulin 4.2 g/dL Albumin/Globulin Ratio 0.6 (1.0-2.7) L Regino Pearson MD Jul 13, 2019 12:56
--- NOTE | 2019-07-13 13:00 | NUR ---
NURSE NOTES: MD Lili made rounds, told to start feeding via NGtube with Jevity 1.2; goal 60cc/hr; told that if PT doesn't tolerate feeding, place PT on D5 1/2NS w/ 20mEq KCl @ 100cc/hr. PT placed on p200 mattress. also ordered 2D echo for PT. Will place orders on behalf of .
--- NOTE | 2019-07-13 13:46 | NUR ---
NURSE NOTES: MD Daniele made rounds, informed MD about fever/PT going SB to HR 48; informed MD that nystatin has been ordered, reported PT started on feeding per MD Lili. No new orders given by MD Daniele. Will continue to monitor PT.
[2019-07-13] MEDS ORDERED: D5 1/2NS w/KCl 20mEq 1,000 ML IV SCH (14:00)
--- NOTE | 2019-07-13 14:00 | Infectious Diseases Prog Note ---
Assessment/Plan Problems: (1) Pneumonia of both lower lobes Assessment & Plan: possible aspiration related S/P intubation and bronchoscopy with BAL . still has low grade fever with worsening WBC today. will continue vancomycin and switch aztreonam to meropenem to broaden her coverage pending BAL culture and other cultures , aspiration precaution (2) Catheter-associated urinary tract infection Assessment & Plan: with gram negative rods , await final urine culture and switch aztreonam empirically to meropenem to cover for possible ESBL producing organisms , continue local catheter care, may need to change the suprapubic catheter (3) Sepsis Assessment & Plan: due to the above, continue wide spectrum antibiotics pending cultures (4) Decubitus skin ulcer Assessment & Plan: of the sacrum, continue off loading and local wound care as per hospital protocol (5) Respiratory failure with hypoxia Assessment & Plan: due to the above, with CO2 retention S/P intubation on mechanical ventilation , monitor ABG and CXR , pulmonary is following (6) Spina bifida Subjective ROS Limited/Unobtainable: Yes Allergies: Coded Allergies: PENICILLIN G (Verified Allergy, Unknown, 12/02/18) Tolerates cabapenem, cephalosporin PENICILLINS (Unverified Allergy, Unknown, 12/02/18) Subjective she was intubated due to respiratory failure and retaining CO2, and had bronchoscopy done yesterday and BAL with cultures. she more more awake and responsive today , still intubated, on mechanical ventilation. had low grade fever , with clear thin secretions . no diarrhea . oral thrush Objective Vital Signs Last 24 Hour Vital Signs Date Time Temp Pulse Resp B/P (MAP) Pulse Ox O2 Delivery O2 Flow Rate FiO2 07/13/19 13:04 51 14 40 07/13/19 13:00 97.5 61 14 134/57 (82) 100 07/13/19 12:00 99.9 62 14 104/54 (71) 100 07/13/19 12:00 40 07/13/19 12:00 Mechanical Ventilator 07/13/19 12:00 64 07/13/19 11:00 52 14 104/48 (66) 100 07/13/19 10:57 53 14 40 07/13/19 10:00 54 14 98/58 (71) 100 07/13/19 09:53 100.4 07/13/19 09:00 57 14 111/53 (72) 100 07/13/19 08:38 56 14 40 07/13/19 08:00 100.7 57 14 109/51 (70) 99 07/13/19 08:00 Mechanical Ventilator 07/13/19 08:00 66 07/13/19 08:00 40 07/13/19 07:17 62 14 40 07/13/19 07:00 65 14 105/65 (78) 98 07/13/19 06:00 58 14 103/54 (70) 99 07/13/19 05:16 55 14 40 07/13/19 05:00 60 14 100/73 (82) 100 07/13/19 04:00 Mechanical Ventilator 07/13/19 04:00 57 07/13/19 04:00 40 07/13/19 04:00 99.1 58 14 101/50 (67) 100 07/13/19 03:29 61 14 40 07/13/19 03:00 54 14 116/53 (74) 100 07/13/19 02:00 56 14 104/45 (64) 100 07/13/19 01:13 65 14 40 07/13/19 01:00 63 14 126/54 (78) 100 07/13/19 00:00 58 07/13/19 00:00 98.9 57 16 120/51 (74) 100 07/13/19 00:00 40 07/13/19 00:00 Mechanical Ventilator 07/12/19 23:00 58 16 109/53 (71) 100 07/12/19 22:40 53 14 40 07/12/19 22:00 60 16 114/65 (81) 100 07/12/19 21:00 64 14 40 07/12/19 21:00 100.6 62 16 114/65 (81) 100 07/12/19 20:00 40 07/12/19 20:00 Mechanical Ventilator 07/12/19 20:00 71 07/12/19 20:00 100.3 71 16 121/53 (75) 100 07/12/19 19:00 77 16 112/51 (71) 100 07/12/19 18:45 61 14 40 07/12/19 18:00 77 16 110/60 (77) 100 07/12/19 17:02 68 14 40 07/12/19 17:00 63 14 114/58 (76) 100 07/12/19 16:00 66 07/12/19 16:00 40 07/12/19 16:00 98.9 69 14 103/46 (65) 100 07/12/19 16:00 Mechanical Ventilator 07/12/19 15:00 64 14 96/50 (65) 100 07/12/19 14:28 80 14 100 Mechanical Ventilator 40 07/12/19 14:20 79 14 40 07/12/19 14:00 73 14 110/46 (67) 98 Height (Feet): 4 Height (Inches): 10.00 Weight (Pounds): 131 General Appearance: WD/WN, no acute distress HEENT: normocephalic, atraumatic, anicteric, mucous membranes moist, PERRL, supple, no JVD, other - ET tube in her moputh with mild thrush Respiratory/Chest: chest wall non-tender, no respiratory distress, no accessory muscle use, decreased breath sounds, crackles/rales Cardiovascular: normal peripheral pulses, normal rate, regular rhythm, no gallop/murmur, no JVD Abdomen: normal bowel sounds, soft, non tender, no organomegaly, non distended , no mass, no scars Extremities: no cyanosis, no clubbing Skin: no rash, no lesions, ulcers 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, alert, responsive Lymphatic: no neck adenopathy, no groin adenopathy Musculoskeletal: normal muscle bulk, no effusion Microbiology Date/Time Source Procedure Growth Status 07/11/19 21:45 Blood Blood Culture - Preliminary NO GROWTH AFTER 24 HOURS Resulted 07/11/19 21:30 Blood Blood Culture - Preliminary NO GROWTH AFTER 24 HOURS Resulted 07/12/19 13:35 Sputum Expectorated Gram Stain - Final Resulted 07/12/19 13:35 Sputum Expectorated Sputum Culture Pending Resulted 07/12/19 12:45 Urine,Suprapubic Urine Culture - Preliminary NO GROWTH Resulted 07/11/19 21:45 Urine,Clean Catch Urine Culture - Preliminary Gram Negative Gustavo Resulted Laboratory Tests Test 07/12/19 15:40 07/12/19 17:00 07/13/19 05:03 Arterial Blood pH 7.460 (7.350-7.450) Arterial Blood Partial Pressure CO2 50.1 mmHg (35.0-45.0) H Arterial Blood Partial Pressure O2 86.1 mmHg (75.0-100.0) Arterial Blood HCO3 34.8 mmol/L (22.0-26.0) H Arterial Blood Oxygen Saturation 97.0 % (95-100) Arterial Blood Base Excess 9.7 (-2-2) *H Gerard Test Positive D-Dimer 0.72 mg/L FEU (0.00-0.49) H White Blood Count 16.9 K/UL (4.8-10.8) #H Red Blood Count 4.40 M/UL (4.20-5.40) Hemoglobin 9.3 G/DL (12.0-16.0) L Hematocrit 29.5 % (37.0-47.0) L Mean Corpuscular Volume 67 FL (80-99) L Mean Corpuscular Hemoglobin 21.1 PG (27.0-31.0) L Mean Corpuscular Hemoglobin Concent 31.4 G/DL (32.0-36.0) L Red Cell Distribution Width 18.0 % (11.6-14.8) H Platelet Count 261 K/UL (150-450) Mean Platelet Volume 5.6 FL (6.5-10.1) L Neutrophils (%) (Auto) 81.7 % (45.0-75.0) H Lymphocytes (%) (Auto) 12.0 % (20.0-45.0) L Monocytes (%) (Auto) 5.4 % (1.0-10.0) Eosinophils (%) (Auto) 0.6 % (0.0-3.0) Basophils (%) (Auto) 0.3 % (0.0-2.0) Sodium Level 142 MMOL/L (136-145) Potassium Level 3.1 MMOL/L (3.5-5.1) L Chloride Level 104 MMOL/L (98-107) Carbon Dioxide Level 32 MMOL/L (21-32) Anion Gap 6 mmol/L (5-15) Blood Urea Nitrogen 17 mg/dL (7-18) Creatinine 0.4 MG/DL (0.55-1.30) L Estimat Glomerular Filtration Rate > 60 mL/min (>60) Glucose Level 124 MG/DL (74-106) H Calcium Level 8.0 MG/DL (8.5-10.1) L Total Bilirubin 0.3 MG/DL (0.2-1.0) Aspartate Amino Transf (AST/SGOT) 9 U/L (15-37) L Alanine Aminotransferase (ALT/SGPT) 13 U/L (12-78) Alkaline Phosphatase 79 U/L (46-116) Total Protein 6.7 G/DL (6.4-8.2) Albumin 2.5 G/DL (3.4-5.0) L Globulin 4.2 g/dL Albumin/Globulin Ratio 0.6 (1.0-2.7) L Current Medications Medications (Trade) Dose Ordered Sig/Sandeep Route PRN Reason Start Time Stop Time Status Last Admin Dose Admin Acetaminophen (Tylenol) 650 mg Q6H PRN ORAL Mild Pain/Temp > 100.5 07/12/19 12:30 08/11/19 12:29 07/13/19 09:05 Albuterol/ Ipratropium (Albuterol/ Ipratropium) 3 ml Q4HRT PRN HHN Shortness of Breath 07/12/19 15:00 07/17/19 03:44 Apixaban (Eliquis) 5 mg BID ORAL 07/12/19 18:00 08/11/19 08:59 07/13/19 09:05 Meropenem 1 gm/ Sodium Chloride 55 ml @ 110 mls/hr Q8HR IVPB 07/13/19 15:00 07/18/19 14:59 Nystatin (Nystatin) 5 ml QID ORAL 07/13/19 09:00 07/20/19 08:59 07/13/19 09:06 Pantoprazole (Protonix) 40 mg DAILY ORAL 07/13/19 09:00 08/11/19 08:59 07/13/19 09:05 Sennosides (Senokot) 8.6 mg BID ORAL 07/12/19 18:00 08/11/19 08:59 07/13/19 09:05 Vancomycin HCl (Vanco rx to dose) 1 ea DAILY PRN MISC rx protocol 07/13/19 09:00 08/11/19 08:59 Vancomycin HCl 1 gm/Dextrose 275 ml @ 183.708 mls/hr Q12H IVPB 07/12/19 17:00 07/17/19 04:59 07/13/19 05:22 Gigi Sanabria M.D. Jul 13, 2019 14:00
[2019-07-13] MEDS: Meropenem 1 GM in NS 55 ML IVPB SCH ×2 (15:56→22:00)
[2019-07-13] MEDS ORDERED: D5W 275ml ONE (16:12)
[2019-07-13] MEDS ORDERED: NS 275ml ONE ×3 (16:12→16:21)
[2019-07-13] MEDS ORDERED: Sterile Water Irrig 1000ml IRRIG ONE (16:17)
--- NOTE | 2019-07-13 19:30 | NUR ---
NURSE NOTES: Received pt awake AOx3,paraplegic but able to move her arms slightly but flaccid on her lower extremities. SB-SR on the monitor, Mds are aware with the HR 45/min. Orally intubated on AC mode , BP stable. Left posterior arm IV access were swollen. IV antibiotics were stop by EMMA Bashir, Dr Guardado were notified that pt is a hard iv access. For PICC line placement in am. Suprapubic cath with yellowish colored urine, moderate in amt.,Fdg tolerating at this time. HOB kept elevated. On aspiration precaution.Sacral decub with optifoam drsg dry and intact, on P200 mattress. Turned q 2hrs prn with good skin care done.Will continue to monitor.
--- NOTE | 2019-07-13 21:00 | NUR ---
NURSE NOTES: Had x1 formed stool. Cleaned up pt.
--- NOTE | 2019-07-13 22:30 | NUR ---
NURSE NOTES: Unable to administer iv antibiotics due to no IV access and pt is a hard stick, Dr Neri was aware . For PICC line placement in am.
[2019-07-14] VITALS (23 sets, daily range): BP systolic 94–136; BP diastolic 40–73
--- NOTE | 2019-07-14 | NUR ---
NURSE NOTES: Tolerating fdg, no residuals. Fdg increased to 30ml/hr. will continue to monitor.
--- NOTE | 2019-07-14 02:00 | NUR ---
NURSE NOTES: Suctioned tk whitish quiroz secretions moderate in amt. 02 sat >100%.
--- NOTE | 2019-07-14 03:28 | NUR ---
NURSE NOTES: Resting well at this time with vss,
--- NOTE | 2019-07-14 04:09 | NUR ---
NURSE NOTES: Ativan 1mg ivp was given due to pt anxiety and extreme agitation. Addendum: 07/14/19 at 0439 by ALESSIA GUTIÉRREZ RN Wrong pt.
[2019-07-14 04:50] LABS: BASOPHILS % (AUTO) 0.6 % (0.0-2.0); EOSINOPHILS % (AUTO) 1.2 % (0.0-3.0); HEMATOCRIT 28.5 % (37.0-47.0); HEMOGLOBIN 8.8 G/DL (12.0-16.0); LYMPHOCYTES % (AUTO) 12.7 % (20.0-45.0); MEAN CORPUSCULAR VOLUME 68 FL (80-99); MONOCYTES % (AUTO) 4.3 % (1.0-10.0); NEUTROPHILS % (AUTO) 81.3 % (45.0-75.0); PLATELET COUNT 237 K/UL (150-450); RED CELL DISTRIBUTION WIDTH 18.1 % (11.6-14.8); WHITE BLOOD COUNT 15.5 K/UL (4.8-10.8)
[2019-07-14] MEDS: Vancomycin 1 GM in D5W 275 ML IVPB SCH ×2 (04:58→17:10)
[2019-07-14 05:02] LABS: ALANINE AMINOTRANSFERASE 13 U/L (12-78); ALBUMIN 2.2 G/DL (3.4-5.0); ALBUMIN/GLOBULIN RATIO 0.5 (1.0-2.7); ALKALINE PHOSPHATASE 75 U/L (46-116); ANION GAP 6 mmol/L (5-15); ASPARTATE AMINO TRANSFERASE 11 U/L (15-37); BILIRUBIN,TOTAL 0.3 MG/DL (0.2-1.0); BLOOD UREA NITROGEN 17 mg/dL (7-18); CALCIUM 7.8 MG/DL (8.5-10.1); CARBON DIOXIDE 29 MMOL/L (21-32); CHLORIDE 103 MMOL/L (98-107); CREATININE 0.3 MG/DL (0.55-1.30); POTASSIUM 3.2 MMOL/L (3.5-5.1); SODIUM 138 MMOL/L (136-145)
[2019-07-14] MEDS: Meropenem 1 GM in NS 55 ML IVPB SCH ×3 (06:13→22:09)
[2019-07-14] MEDS ORDERED: Heparin1,000 units/500ml Premix(Conc:2 units/ml) ONE (07:00)
[2019-07-14] MEDS ORDERED: Lidocaine 1% Plain 30 ml INJ ONE (07:00)
--- NOTE | 2019-07-14 07:29 | NUR ---
RESPIRATORY NOTE: received pt orally intubated on current vent settings. no signs of resp distress noted at this time. pt ETT size 8.0 placed 21cm at the lip. ETT secured via anchor fast with no visible redness or skin wounds around facial and mouth area. alarms are set and audible with ambu bag at bedside. will cont to monitor.
--- NOTE | 2019-07-14 07:36 | NUR ---
HAND-OFF: Report given to Yasmine CARTER.
--- NOTE | 2019-07-14 08:02 | NUR ---
NURSE NOTES: Patient awake when received, noted with low grade fever 99.9, cooling measure applied.Orally intubated ETT 03/12 AC 14 VT 500 FIO2 40% PEEP 5. On Jevity 1.2 at 40 and residual 10cc at this time,GT placement intact, NGT left nare.Right finger gauge 24 peripheral line with no apparent infiltrate.Left forearm previously infiltrate elevated with pillow and ice pack applied.Patient turned and repositioned, mouth care done.Suctioned as tolerated, HOB elevated to prevent aspiration.Awaiting for picc placement.Call light within easy reach, will continue to monitor
[2019-07-14] MEDS: Eliquis 5mg tablet ORAL SCH ×2 (08:29→17:11)
[2019-07-14] MEDS: Sennosides 8.6mg tab ORAL SCH ×2 (08:30→17:11)
[2019-07-14] MEDS: Nystatin Susp 500,000 units/5ml ORAL SCH ×4 (08:30→21:18)
[2019-07-14] MEDS ORDERED: Lidocaine 1% Plain 30 ml INJ PRN (10:00)
[2019-07-14] MEDS ORDERED: Heparin1,000 units/500ml Premix(Conc:2 units/ml) IV PRN (10:00)
--- NOTE | 2019-07-14 10:02 | NUR ---
NURSE NOTES: Patient awake watching tv with no apparent s/s acute distress.Turned and repositioned.Tolerate well feeding.Keep HOB elevated at 35 degree to prevent aspiration.Will continue to monitor.Call light within easy reach
--- NOTE | 2019-07-14 10:44 | General Progress Note ---
Assessment/Plan Status: stable Assessment/Plan: S, O: Intubated, awake, not following command, vent setting reviewed PHYSICAL EXAMINATION:HEAD AND NECK: intubated , Atraumatic, normocephalic. CHEST: Diffuse bronchial breathing sounds. No wheezing.HEART: S1, S2. Regular rate and rhythm. ABDOMEN: Obese, positive for suprapubic catheter.MUSCULOSKELETAL: The atrophy of the lower extremities, paraplegia are noted.NEUROLOGY: The patient is Intubated, limited eval LABORATORY AND DIAGNOSTIC DATA: Dated July 14 reviewed ASSESSMENT AND PLAN: 1. Sepsis - healthcare associated. 2. Pneumonia, healthcare associated. 3. UTI - healthcare associated. 4. Congenital abnormalities, spina bifida, paraplegic, wheelchair-bound. 5. On New oral anticoagulation 6. GI and DVT prophylaxis. PLAN OF CARE: Current Pulmonary and ID care S/P Bronch, pending cultures Notes from urology, ID Pulmonary reviewed Discussed the care with ID and Pulmonary Decreasing WBC counts, afebrile, KCL supplement I spent 60 minutes in direct patient care. Subjective Allergies: Coded Allergies: PENICILLIN G (Verified Allergy, Unknown, 12/02/18) Tolerates cabapenem, cephalosporin PENICILLINS (Unverified Allergy, Unknown, 12/02/18) Objective Last 24 Hour Vital Signs Date Time Temp Pulse Resp B/P (MAP) Pulse Ox O2 Delivery O2 Flow Rate FiO2 07/14/19 09:00 56 14 101/45 (63) 100 07/14/19 08:59 99.2 07/14/19 08:38 68 14 40 07/14/19 08:00 70 14 106/50 (68) 100 07/14/19 08:00 40 07/14/19 08:00 68 07/14/19 08:00 Mechanical Ventilator 07/14/19 07:26 61 14 40 07/14/19 07:00 99.3 75 16 94/47 (63) 100 07/14/19 06:00 61 14 103/44 (63) 100 07/14/19 05:13 61 14 40 07/14/19 05:00 62 14 103/44 (63) 99 07/14/19 04:00 66 07/14/19 04:00 66 14 103/45 (64) 100 07/14/19 04:00 Mechanical Ventilator 07/14/19 04:00 40 07/14/19 03:00 60 14 97/47 (64) 97 07/14/19 02:50 64 14 40 07/14/19 02:00 63 14 104/46 (65) 97 07/14/19 01:41 63 14 40 07/14/19 01:00 64 14 105/46 (65) 97 07/14/19 00:00 Mechanical Ventilator 07/14/19 00:00 40 07/14/19 00:00 98.6 68 14 103/43 (63) 100 07/14/19 00:00 51 07/14/19 00:00 68 07/13/19 23:10 51 14 40 07/13/19 23:00 55 14 103/45 (64) 100 07/13/19 22:00 54 14 121/56 (77) 100 07/13/19 21:12 58 14 40 07/13/19 21:00 53 14 120/56 (77) 100 07/13/19 20:00 Mechanical Ventilator 07/13/19 20:00 99.8 51 14 121/56 (77) 100 07/13/19 20:00 51 07/13/19 19:44 52 14 40 07/13/19 18:00 66 13 134/68 (90) 97 07/13/19 17:00 61 14 98/48 (65) 96 07/13/19 16:30 69 14 40 07/13/19 16:00 100.1 66 14 132/65 (87) 97 07/13/19 16:00 51 07/13/19 16:00 Mechanical Ventilator 07/13/19 16:00 40 07/13/19 15:22 70 14 40 07/13/19 15:00 52 14 129/63 (85) 100 07/13/19 14:00 55 14 124/59 (80) 100 07/13/19 13:04 51 14 40 07/13/19 13:00 97.5 61 14 134/57 (82) 100 07/13/19 12:00 99.9 62 14 104/54 (71) 100 07/13/19 12:00 40 07/13/19 12:00 Mechanical Ventilator 07/13/19 12:00 64 07/13/19 11:00 52 14 104/48 (66) 100 07/13/19 10:57 53 14 40 Intake and Output 07/13/19 07/14/19 19:00 07:00 Intake Total 315 ml 750 ml Output Total 410 ml 480 ml Balance -95 ml 270 ml Intake Free Water 60 ml IV Total 165 ml 330 ml Tube Feeding 90 ml 360 ml Other 60 ml Output Urine Total 410 ml 480 ml # Bowel Movements 6 Laboratory Tests 07/13/19 16:10: Vancomycin Level Trough 14.6H 07/14/19 04:00: White Blood Count 15.5H, Red Blood Count 4.20, Hemoglobin 8.8L, Hematocrit 28.5L , Mean Corpuscular Volume 68L, Mean Corpuscular Hemoglobin 20.9L, Mean Corpuscular Hemoglobin Concent 30.9L, Red Cell Distribution Width 18.1H, Platelet Count 237, Mean Platelet Volume 5.6L, Neutrophils (%) (Auto) 81.3H, Lymphocytes (%) (Auto) 12.7L, Monocytes (%) (Auto) 4.3, Eosinophils (%) (Auto) 1.2, Basophils (%) (Auto) 0.6, Sodium Level 138, Potassium Level 3.2L, Chloride Level 103, Carbon Dioxide Level 29, Anion Gap 6, Blood Urea Nitrogen 17, Creatinine 0.3L, Estimat Glomerular Filtration Rate > 60, Glucose Level 116H, Calcium Level 7.8L, Total Bilirubin 0.3, Aspartate Amino Transf (AST/SGOT) 11L, Alanine Aminotransferase (ALT/SGPT) 13, Alkaline Phosphatase 75, Total Protein 6.6, Albumin 2.2L, Globulin 4.4, Albumin/Globulin Ratio 0.5L Height (Feet): 4 Height (Inches): 10.00 Weight (Pounds): 154 Denise Neri MD Jul 14, 2019 10:44
[2019-07-14] MEDS: Sodium Chloride for KCL Premix x 2hrs IV SCH ×2 (11:15→13:02)
--- NOTE | 2019-07-14 11:40 | NUR ---
NURSE NOTES: Patient edematous and Potassium started , mix with TKO
--- NOTE | 2019-07-14 11:55 | Pulmonolgy Critical Care Note ---
Critical Care - Asmt/Plan Problems: (1) Pneumonia of both lower lobes Assessment & Plan: VDRF, intubated 07/12/19, S/P FOB 07/12/19 (2) Catheter-associated urinary tract infection Assessment & Plan: GNR (3) Respiratory failure with hypoxia Assessment & Plan: Acute on chronic hypercapnic and hypoxemic RF 2/2 PNA VDRF as able Duplex neg, minimally elevated d-dimer, unlikely VTE and already on a NOAC (4) HCAP (healthcare-associated pneumonia) (5) Paraplegia (6) Sepsis (7) Suprapubic catheter (8) Restrictive lung disease due to kyphoscoliosis (9) Decubitus skin ulcer (10) Spina bifida Respiratory: monitor respiratory rate, weaning trial, other - HHN's Cardiac: continue to monitor HR/BP Renal: other - SLIV Infectious Disease: continue antibiotics - OTILIA/VANCO per ID Gastrointestinal: continue feedings/current rate Endocrine: monitor blood sugar Neurologic: keep patient comfortable Prophylaxis: Protonix, other - Eliquis Time Spent (Minutes): other - 35 Notes Reviewed: client development manager, ID Discussed with: nurses, consultants, other - FC continue to discuss C Critical Care - Objective Last 24 Hour Vital Signs Date Time Temp Pulse Resp B/P (MAP) Pulse Ox O2 Delivery O2 Flow Rate FiO2 07/14/19 11:10 67 14 40 07/14/19 10:00 69 14 110/54 (72) 99 07/14/19 09:00 56 14 101/45 (63) 100 07/14/19 08:59 99.2 07/14/19 08:38 68 14 40 07/14/19 08:00 70 14 106/50 (68) 100 07/14/19 08:00 40 07/14/19 08:00 68 07/14/19 08:00 Mechanical Ventilator 07/14/19 07:26 61 14 40 07/14/19 07:00 99.3 75 16 94/47 (63) 100 07/14/19 06:00 61 14 103/44 (63) 100 07/14/19 05:13 61 14 40 07/14/19 05:00 62 14 103/44 (63) 99 07/14/19 04:00 66 07/14/19 04:00 66 14 103/45 (64) 100 07/14/19 04:00 Mechanical Ventilator 07/14/19 04:00 40 07/14/19 03:00 60 14 97/47 (64) 97 07/14/19 02:50 64 14 40 07/14/19 02:00 63 14 104/46 (65) 97 07/14/19 01:41 63 14 40 07/14/19 01:00 64 14 105/46 (65) 97 07/14/19 00:00 Mechanical Ventilator 07/14/19 00:00 40 07/14/19 00:00 98.6 68 14 103/43 (63) 100 07/14/19 00:00 51 07/14/19 00:00 68 07/13/19 23:10 51 14 40 07/13/19 23:00 55 14 103/45 (64) 100 07/13/19 22:00 54 14 121/56 (77) 100 07/13/19 21:12 58 14 40 07/13/19 21:00 53 14 120/56 (77) 100 07/13/19 20:00 Mechanical Ventilator 07/13/19 20:00 99.8 51 14 121/56 (77) 100 07/13/19 20:00 51 07/13/19 19:44 52 14 40 07/13/19 18:00 66 13 134/68 (90) 97 07/13/19 17:00 61 14 98/48 (65) 96 07/13/19 16:30 69 14 40 07/13/19 16:00 100.1 66 14 132/65 (87) 97 07/13/19 16:00 51 07/13/19 16:00 Mechanical Ventilator 07/13/19 16:00 40 07/13/19 15:22 70 14 40 07/13/19 15:00 52 14 129/63 (85) 100 07/13/19 14:00 55 14 124/59 (80) 100 07/13/19 13:04 51 14 40 07/13/19 13:00 97.5 61 14 134/57 (82) 100 07/13/19 12:00 99.9 62 14 104/54 (71) 100 07/13/19 12:00 40 07/13/19 12:00 Mechanical Ventilator 07/13/19 12:00 64 Status: awake - on vent Condition: improving HEENT: atraumatic, normocephalic Lungs: rhonchi Heart: HR/BP stable Abdomen: soft, non-tender, active bowel sounds Extremities: edema - trace Decubiti: location - sac, stage - dti Micro: Microbiology Date/Time Source Procedure Growth Status 07/12/19 13:00 Blood Blood Culture - Preliminary NO GROWTH AFTER 24 HOURS Resulted 07/12/19 12:45 Blood Blood Culture - Preliminary NO GROWTH AFTER 24 HOURS Resulted 07/11/19 21:45 Blood Blood Culture - Preliminary NO GROWTH AFTER 48 HOURS Resulted 07/11/19 21:30 Blood Blood Culture - Preliminary NO GROWTH AFTER 48 HOURS Resulted 07/12/19 13:35 Sputum Expectorated Gram Stain - Final Resulted 07/12/19 13:35 Sputum Expectorated Sputum Culture - Preliminary NORMAL UPPER RESPIRATORY KORTNEY PRESENT Resulted 07/11/19 23:30 Nasal Nares MRSA Culture - Final NO METHICILLIN RESISTANT STAPH AUREUS... Complete 07/12/19 12:45 Urine,Suprapubic Urine Culture - Preliminary Gram Negative Bacillus 1 Resulted 07/11/19 21:45 Urine,Clean Catch Urine Culture - Preliminary Gram Negative Gustavo Resulted 07/11/19 23:30 Rectum - Final NO CARBAPENEM-RESISTANT ENTEROBACTERI... Complete 07/11/19 23:30 Rectum VRE Culture - Final NO VANCOMYCIN RESISTANT ENTEROCOCCUS ... Complete Critical Care - Subjective ROS Limited/Unobtainable: Yes ICU Day: 3 Intubation Day: 3 Interval Events: Tm 100 awake on vent O2 needs Condition: stable IV Access: PICC EKG Rhythm: Sinus Rhythm FI02: 40 Vent Support Breath Rate: 14 Vent Support Mode: AC Vent Tidal Volume: 500 Sputum Amount: Small PEEP: 5.0 PIP: 27 Secretions: small Fluids: SLIV Tube Feeding Amount: 40 I&O: Intake and Output 07/13/19 07/14/19 19:00 07:00 Intake Total 315 ml 750 ml Output Total 410 ml 480 ml Balance -95 ml 270 ml Intake Free Water 60 ml IV Total 165 ml 330 ml Tube Feeding 90 ml 360 ml Other 60 ml Output Urine Total 410 ml 480 ml # Bowel Movements 6 Subjective: ANDREWS ET-Tube: 8.0 ET Position: 21 Labs: Laboratory Tests Test 07/13/19 16:10 07/14/19 04:00 Vancomycin Level Trough 14.6 ug/mL (5.0-12.0) H White Blood Count 15.5 K/UL (4.8-10.8) H Red Blood Count 4.20 M/UL (4.20-5.40) Hemoglobin 8.8 G/DL (12.0-16.0) L Hematocrit 28.5 % (37.0-47.0) L Mean Corpuscular Volume 68 FL (80-99) L Mean Corpuscular Hemoglobin 20.9 PG (27.0-31.0) L Mean Corpuscular Hemoglobin Concent 30.9 G/DL (32.0-36.0) L Red Cell Distribution Width 18.1 % (11.6-14.8) H Platelet Count 237 K/UL (150-450) Mean Platelet Volume 5.6 FL (6.5-10.1) L Neutrophils (%) (Auto) 81.3 % (45.0-75.0) H Lymphocytes (%) (Auto) 12.7 % (20.0-45.0) L Monocytes (%) (Auto) 4.3 % (1.0-10.0) Eosinophils (%) (Auto) 1.2 % (0.0-3.0) Basophils (%) (Auto) 0.6 % (0.0-2.0) Sodium Level 138 MMOL/L (136-145) Potassium Level 3.2 MMOL/L (3.5-5.1) L Chloride Level 103 MMOL/L (98-107) Carbon Dioxide Level 29 MMOL/L (21-32) Anion Gap 6 mmol/L (5-15) Blood Urea Nitrogen 17 mg/dL (7-18) Creatinine 0.3 MG/DL (0.55-1.30) L Estimat Glomerular Filtration Rate > 60 mL/min (>60) Glucose Level 116 MG/DL (74-106) H Calcium Level 7.8 MG/DL (8.5-10.1) L Total Bilirubin 0.3 MG/DL (0.2-1.0) Aspartate Amino Transf (AST/SGOT) 11 U/L (15-37) L Alanine Aminotransferase (ALT/SGPT) 13 U/L (12-78) Alkaline Phosphatase 75 U/L (46-116) Total Protein 6.6 G/DL (6.4-8.2) Albumin 2.2 G/DL (3.4-5.0) L Globulin 4.4 g/dL Albumin/Globulin Ratio 0.5 (1.0-2.7) L Regino Pearson MD Jul 14, 2019 11:55
--- NOTE | 2019-07-14 12:00 | NUR ---
RADIOLOGY NOTE: LEFT UPPER EXTREMITY PICC PLACED.
--- NOTE | 2019-07-14 12:10 | NUR ---
NURSE NOTES: No significant change in condition.Seen by Dr Pearson and started on weaning CPAP PS 12, tolerate well at this time.Turned and repositioned for skin management.Call light within easy reach, will continue to monitor
--- NOTE | 2019-07-14 13:19 | NUR ---
NURSE NOTES: Seen by Dr Sanabria,will follow up with new order
--- NOTE | 2019-07-14 13:33 | Diagnostic Imaging Report ---
Indication: roasterman venous access Findings: After the indications, procedure, risks, complications, and alternatives of the procedure were explained, written informed consent was obtained. The left upper extremity was prepped with alcohol. All elements of maximal sterile barrier technique were followed including usage of a cap, mask, sterile gown, sterile gloves, hand hygiene and a large sterile sheet. Sonographic evaluation of the upper extremity was performed demonstrating a patent and compressible brachial vein. Access was obtained under real-time ultrasound guidance (with utilization of sterile gel and sterile probe cover) and digital image was saved and archived. An .018 wire was introduced. Needle exchanged for a 5 Singaporean peel-away sheath. Measurements were obtained. A 5 Singaporean dual-lumen Power PICC line catheter was cut to 40 cm and introduced over the wire. Peel-away sheath and wire were removed.Catheter was secured to the skin using 2-0 Prolene suture. Both ports aspirate and flush easily. Post procedure chest x-ray demonstrates good position of the PICC line catheter within the SVC. Impression: Successful placement of an upper extremity PICC line catheter
--- NOTE | 2019-07-14 13:38 | Infectious Diseases Prog Note ---
Assessment/Plan Problems: (1) Pneumonia of both lower lobes Assessment & Plan: possible aspiration related S/P intubation and bronchoscopy with BAL . with improvement in her oxygen level , responded to vancomycin and meropenem coverage , pending BAL culture and other cultures , aspiration precaution, monitor CXR and ABG, continue weaning trials as per pulmonary (2) Catheter-associated urinary tract infection Assessment & Plan: with gram negative rods , await final urine culture , on meropenem to cover for possible ESBL producing organisms , continue local catheter care, may need to change the suprapubic catheter (3) Sepsis Assessment & Plan: due to the above, continue wide spectrum antibiotics pending cultures (4) Decubitus skin ulcer Assessment & Plan: of the sacrum, continue off loading and local wound care as per hospital protocol (5) Respiratory failure with hypoxia Assessment & Plan: due to the above, with CO2 retention S/P intubation on mechanical ventilation , monitor ABG and CXR , pulmonary is following (6) Spina bifida Subjective ROS Limited/Unobtainable: Yes Allergies: Coded Allergies: PENICILLIN G (Verified Allergy, Unknown, 12/02/18) Tolerates cabapenem, cephalosporin PENICILLINS (Unverified Allergy, Unknown, 12/02/18) Subjective she was more awake and alert and responsive today , still intubated due to respiratory failure and retaining CO2, had bronchoscopy done and BAL with cultures pending . no fever or chills today , with clear thin secretions . no diarrhea . mild oral thrush Objective Vital Signs Last 24 Hour Vital Signs Date Time Temp Pulse Resp B/P (MAP) Pulse Ox O2 Delivery O2 Flow Rate FiO2 07/14/19 13:00 74 20 114/45 (68) 100 07/14/19 12:55 77 19 40 40 07/14/19 12:00 Mechanical Ventilator 07/14/19 12:00 98.8 72 14 136/51 (79) 100 07/14/19 12:00 40 07/14/19 12:00 68 07/14/19 11:10 67 14 40 07/14/19 11:00 68 15 119/56 (77) 99 07/14/19 10:00 69 14 110/54 (72) 99 07/14/19 09:00 56 14 101/45 (63) 100 07/14/19 08:59 99.2 12/23/19 08:38 68 14 40 07/14/19 08:00 70 14 106/50 (68) 100 07/14/19 08:00 40 07/14/19 08:00 68 07/14/19 08:00 Mechanical Ventilator 07/14/19 07:26 61 14 40 07/14/19 07:00 99.3 75 16 94/47 (63) 100 07/14/19 06:00 61 14 103/44 (63) 100 07/14/19 05:13 61 14 40 07/14/19 05:00 62 14 103/44 (63) 99 07/14/19 04:00 66 07/14/19 04:00 66 14 103/45 (64) 100 07/14/19 04:00 Mechanical Ventilator 07/14/19 04:00 40 07/14/19 03:00 60 14 97/47 (64) 97 07/14/19 02:50 64 14 40 07/14/19 02:00 63 14 104/46 (65) 97 07/14/19 01:41 63 14 40 07/14/19 01:00 64 14 105/46 (65) 97 07/14/19 00:00 Mechanical Ventilator 07/14/19 00:00 40 07/14/19 00:00 98.6 68 14 103/43 (63) 100 07/14/19 00:00 51 07/14/19 00:00 68 07/13/19 23:10 51 14 40 07/13/19 23:00 55 14 103/45 (64) 100 07/13/19 22:00 54 14 121/56 (77) 100 07/13/19 21:12 58 14 40 07/13/19 21:00 53 14 120/56 (77) 100 07/13/19 20:00 Mechanical Ventilator 07/13/19 20:00 99.8 51 14 121/56 (77) 100 07/13/19 20:00 51 07/13/19 19:44 52 14 40 07/13/19 18:00 66 13 134/68 (90) 97 07/13/19 17:00 61 14 98/48 (65) 96 07/13/19 16:30 69 14 40 07/13/19 16:00 100.1 66 14 132/65 (87) 97 07/13/19 16:00 51 07/13/19 16:00 Mechanical Ventilator 07/13/19 16:00 40 07/13/19 15:22 70 14 40 07/13/19 15:00 52 14 129/63 (85) 100 07/13/19 14:00 55 14 124/59 (80) 100 Height (Feet): 4 Height (Inches): 10.00 Weight (Pounds): 154 General Appearance: WD/WN, no acute distress HEENT: normocephalic, atraumatic, anicteric, mucous membranes moist, PERRL, supple, no JVD Respiratory/Chest: no respiratory distress, no accessory muscle use, decreased breath sounds, crackles/rales Cardiovascular: normal peripheral pulses, normal rate, regular rhythm, no gallop/murmur, no JVD Abdomen: normal bowel sounds, soft, non tender, no organomegaly, non distended , no mass, no scars Extremities: no cyanosis, no clubbing Skin: no rash, no lesions, ulcers Neurologic/Psychiatric: 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 normal, alert, responsive Lymphatic: no neck adenopathy, no groin adenopathy Musculoskeletal: normal muscle bulk, no effusion Microbiology Date/Time Source Procedure Growth Status 07/12/19 13:00 Blood Blood Culture - Preliminary NO GROWTH AFTER 24 HOURS Resulted 07/12/19 12:45 Blood Blood Culture - Preliminary NO GROWTH AFTER 24 HOURS Resulted 07/11/19 21:45 Blood Blood Culture - Preliminary NO GROWTH AFTER 48 HOURS Resulted 07/11/19 21:30 Blood Blood Culture - Preliminary NO GROWTH AFTER 48 HOURS Resulted 07/12/19 13:35 Sputum Expectorated Gram Stain - Final Resulted 07/12/19 13:35 Sputum Expectorated Sputum Culture - Preliminary NORMAL UPPER RESPIRATORY KORTNEY PRESENT Resulted 07/11/19 23:30 Nasal Nares MRSA Culture - Final NO METHICILLIN RESISTANT STAPH AUREUS... Complete 07/12/19 12:45 Urine,Suprapubic Urine Culture - Preliminary Gram Negative Bacillus 1 Resulted 07/11/19 21:45 Urine,Clean Catch Urine Culture - Preliminary Gram Negative Gustavo Resulted 07/11/19 23:30 Rectum - Final NO CARBAPENEM-RESISTANT ENTEROBACTERI... Complete 07/11/19 23:30 Rectum VRE Culture - Final NO VANCOMYCIN RESISTANT ENTEROCOCCUS ... Complete Laboratory Tests Test 07/13/19 16:10 12/23/19 04:00 Vancomycin Level Trough 14.6 ug/mL (5.0-12.0) H White Blood Count 15.5 K/UL (4.8-10.8) H Red Blood Count 4.20 M/UL (4.20-5.40) Hemoglobin 8.8 G/DL (12.0-16.0) L Hematocrit 28.5 % (37.0-47.0) L Mean Corpuscular Volume 68 FL (80-99) L Mean Corpuscular Hemoglobin 20.9 PG (27.0-31.0) L Mean Corpuscular Hemoglobin Concent 30.9 G/DL (32.0-36.0) L Red Cell Distribution Width 18.1 % (11.6-14.8) H Platelet Count 237 K/UL (150-450) Mean Platelet Volume 5.6 FL (6.5-10.1) L Neutrophils (%) (Auto) 81.3 % (45.0-75.0) H Lymphocytes (%) (Auto) 12.7 % (20.0-45.0) L Monocytes (%) (Auto) 4.3 % (1.0-10.0) Eosinophils (%) (Auto) 1.2 % (0.0-3.0) Basophils (%) (Auto) 0.6 % (0.0-2.0) Sodium Level 138 MMOL/L (136-145) Potassium Level 3.2 MMOL/L (3.5-5.1) L Chloride Level 103 MMOL/L (98-107) Carbon Dioxide Level 29 MMOL/L (21-32) Anion Gap 6 mmol/L (5-15) Blood Urea Nitrogen 17 mg/dL (7-18) Creatinine 0.3 MG/DL (0.55-1.30) L Estimat Glomerular Filtration Rate > 60 mL/min (>60) Glucose Level 116 MG/DL (74-106) H Calcium Level 7.8 MG/DL (8.5-10.1) L Total Bilirubin 0.3 MG/DL (0.2-1.0) Aspartate Amino Transf (AST/SGOT) 11 U/L (15-37) L Alanine Aminotransferase (ALT/SGPT) 13 U/L (12-78) Alkaline Phosphatase 75 U/L (46-116) Total Protein 6.6 G/DL (6.4-8.2) Albumin 2.2 G/DL (3.4-5.0) L Globulin 4.4 g/dL Albumin/Globulin Ratio 0.5 (1.0-2.7) L Current Medications Medications (Trade) Dose Ordered Sig/Sandeep Route PRN Reason Start Time Stop Time Status Last Admin Dose Admin Acetaminophen (Tylenol) 650 mg Q6H PRN ORAL Mild Pain/Temp > 100.5 07/12/19 12:30 08/11/19 12:29 07/14/19 08:29 Albuterol/ Ipratropium (Albuterol/ Ipratropium) 3 ml Q4HRT PRN HHN Shortness of Breath 07/12/19 15:00 07/17/19 03:44 Apixaban (Eliquis) 5 mg BID ORAL 07/12/19 18:00 08/11/19 08:59 07/14/19 08:29 Chlorhexidine Gluconate (Debora-Hex 2%) 1 applic DAILY@2000 TOPIC 07/14/19 20:00 08/13/19 19:59 Heparin Sodium/ Sodium Chloride (Heparin 1000 units/500ml Premix) 1,000 unit ONCE PRN IV PICC PLACEMENT 07/14/19 10:00 07/14/19 23:59 Lidocaine HCl (Xylocaine 1% 30ml) 30 ml ONCE PRN INJ PICC PLACEMENT 07/14/19 10:00 07/14/19 23:59 Meropenem 1 gm/ Sodium Chloride 55 ml @ 110 mls/hr Q8HR IVPB 07/13/19 15:00 07/18/19 14:59 07/14/19 06:13 Nystatin (Nystatin) 5 ml QID ORAL 07/13/19 09:00 07/20/19 08:59 07/14/19 12:55 Pantoprazole (Protonix) 40 mg DAILY ORAL 07/13/19 09:00 08/11/19 08:59 07/14/19 08:28 Sennosides (Senokot) 8.6 mg BID ORAL 07/12/19 18:00 08/11/19 08:59 07/14/19 08:30 Sodium Chloride 200 ml @ 100 mls/hr Q2H IV 07/14/19 11:15 07/14/19 14:00 Vancomycin HCl (Vanco rx to dose) 1 ea DAILY PRN MISC rx protocol 07/13/19 09:00 08/11/19 08:59 Vancomycin HCl 1 gm/Dextrose 275 ml @ 183.708 mls/hr Q12H IVPB 07/12/19 17:00 07/17/19 04:59 07/14/19 04:58 Gigi Sanabria M.D. Jul 14, 2019 13:38
[2019-07-14] MEDS ORDERED: Tubing IV Secondary IV ONE (13:49)
--- NOTE | 2019-07-14 14:03 | NUR ---
NURSE NOTES: Patient turned and repositioned, HOB elevated to prevent aspiration.Call light within easy reach.No significant change in condition at this time.Kept on close monitoring
--- NOTE | 2019-07-14 14:24 | NUR ---
ST NOTES: REFERRED FOR SWALLOW EVAL. PATIENT STILL INTUBATED. PLEASE RE-CONSULT WHEN INDICATED. WILL DC FROM [facility] AT THIS TIME.
--- NOTE | 2019-07-14 16:14 | NUR ---
NURSE NOTES: Pt suctioned and tolerate well.Still noted with large amount clear secretion.HOB elevated to prevent aspiration.Will continue to monitor
--- NOTE | 2019-07-14 18:01 | NUR ---
NURSE NOTES: ADLS done, mouth care and suctioned provided.Tolerate well feeding.HOB elevated to prevent aspiration.Call light within easy reach.Will continue to monitor
--- NOTE | 2019-07-14 18:48 | NUR ---
RESPIRATORY NOTE: Received pt on AC 14, 500VT, 40%, PEEP +5. Pt intubated w/ ETT 8.0 @ 21 cm lipline, secured by anchorfast. Pt is alert/awake, follows commands. B/S guillermo. rhonchi, sxn small to moderate amounts of thick, pale-yellow to quiroz-yellow secretions. Vent plugged into red outlet, ambubag at bedside. Pt resting comfortably, in no apparent distress at this time. Will continue to monitor pt.
--- NOTE | 2019-07-14 19:11 | NUR ---
HAND-OFF: Report given to EMMA Mesa.
--- NOTE | 2019-07-14 19:51 | NUR ---
NURSE NOTES: Received pt with eyes close, orally intubated on ac mode SB-SR on the monitor. Bp stable, slightly febrile 100F, Tolerated NGT fdg at this time at 40ml/hr, no residuals. Increased to 50ml/hr. HOB kept elevated oN aspiration precaution, Pt with sacral decub with drsg dry and intact, On p200 mattress. Turned q 2hrs prn with good skin care done. Cooling measures were started.Will continue to monitor.
[2019-07-14] MEDS: Dyna-Hex 2% Top Sol 2oz TOPIC SCH (20:15)
--- NOTE | 2019-07-14 21:30 | NUR ---
NURSE NOTES: Pt had soft formed bowel movement. cleaned up pt
--- NOTE | 2019-07-14 22:00 | NUR ---
NURSE NOTES: Family at bedside- updated with pts condition.
[2019-07-15] VITALS (25 sets, daily range): BP systolic 87–128; BP diastolic 38–69
--- NOTE | 2019-07-15 | NUR ---
NURSE NOTES: Turned q 2hrs prn with good skin care done. Optifoam drsg was changed, soiled with stools,
--- NOTE | 2019-07-15 01:00 | NUR ---
NURSE NOTES: Tolerated NGT fdg, increased to 60ml/hr. HOB kept elevated. On aspiration precaution.
--- NOTE | 2019-07-15 03:00 | NUR ---
NURSE NOTES: Left upper arm PICC line drsg was changed
--- NOTE | 2019-07-15 05:00 | NUR ---
NURSE NOTES: Complete bath with bed changed was done.
[2019-07-15] MEDS: Vancomycin 1 GM in D5W 275 ML IVPB SCH (05:01)
[2019-07-15] MEDS: Meropenem 1 GM in NS 55 ML IVPB SCH ×3 (05:57→21:32)
--- NOTE | 2019-07-15 06:00 | NUR ---
NURSE NOTES: SWuctioned tk clear to beige secretions from ETT and mouth. Oral care done.
[2019-07-15 07:01] LABS: HEMATOCRIT 24.5 % (37.0-47.0); HEMOGLOBIN 7.3 G/DL (12.0-16.0); MEAN CORPUSCULAR VOLUME 69 FL (80-99); PLATELET COUNT 207 K/UL (150-450); RED BLOOD COUNT 3.53 M/UL (4.20-5.40); RED CELL DISTRIBUTION WIDTH 18.5 % (11.6-14.8); WHITE BLOOD COUNT 11.2 K/UL (4.8-10.8)
--- NOTE | 2019-07-15 07:15 | NUR ---
RESPIRATORY NOTE: Received patient on AC 14, 500Vt, 40% O2, and PEEP of 5. Patient intubated with ETT 8.0 at 21cm at the lip, secured with an anchorfast. Patient is alert and awake, follows commands. Breath Sounds are bilateral rhonchi. Suctioned moderate amounts of white-yellow secretions. Vent is plugged into red outlet, ambubag at bedside. Patient is resting comfortably, no sign of apparent distress at the this time. Will continue to monitor patient.
--- NOTE | 2019-07-15 07:20 | NUR ---
NURSE NOTES: RECEIVED BED SIDE REPORT FROM NIC CARTER OF NOC SHIFT.REC,D PT WITH HOB ELEVATED 45 DEGREE AWAKE , SEEMS RESTING COMFORTABLY ORALLY INTUBATED WITH ET-TUBE ,SZ#8 ,21CM AT RT BRIGHT CONNECTED TO VENTILATOR.PT TOLERATING WELL CURRENTS VENT SETTINGS,AC-14,TV 500,PEEP5 ,FI02 40%, O2 SAT 100%.RENDERED ORAL CARE AND SX,D MOD AMT OF WHITE TICK SECRETIONS.PICC-LINE ON LT UA INTACT. SUPRA PUBIC CATHETER DRAINING WELL YELLOW URINE COLOR .FULL BODY ASSESSMENT DONE.PT REPOSITIONED IN BED Q 2HRS TO PREVENT FURTHER SKIN BREAK DOWN.PLACED A TELEPHONE CALL TO DR MENDEZ ON HIS EMERGENCY VOICE MAIL REGARDING AND LEFT A MESSAGE REGARDING HGB 7.3 & HCT 24.5 .A WAITING FOR M.D TO CALL ME BACK. WILL CONT TO MONITOR.
--- NOTE | 2019-07-15 07:25 | NUR ---
HAND-OFF: Report given to Yunier CARTER.
[2019-07-15 08:35] LABS: ANION GAP 7 mmol/L (5-15); BLOOD UREA NITROGEN 13 mg/dL (7-18); CALCIUM 7.7 MG/DL (8.5-10.1); CARBON DIOXIDE 30 MMOL/L (21-32); CHLORIDE 105 MMOL/L (98-107); CREATININE 0.4 MG/DL (0.55-1.30); POTASSIUM 3.3 MMOL/L (3.5-5.1); SODIUM 141 MMOL/L (136-145)
[2019-07-15 08:39] LABS: ALANINE AMINOTRANSFERASE 8 U/L (12-78); ALBUMIN 2.1 G/DL (3.4-5.0); ALBUMIN/GLOBULIN RATIO 0.5 (1.0-2.7); ALKALINE PHOSPHATASE 67 U/L (46-116); ASPARTATE AMINO TRANSFERASE 7 U/L (15-37); BILIRUBIN,TOTAL 0.3 MG/DL (0.2-1.0)
[2019-07-15] MEDS ORDERED: NS 275ml ONE (09:37)
[2019-07-15] MEDS: Nystatin Susp 500,000 units/5ml ORAL SCH ×4 (10:00→21:32)
[2019-07-15] MEDS: Sennosides 8.6mg tab ORAL SCH ×2 (10:00→17:43)
[2019-07-15] MEDS: Eliquis 5mg tablet ORAL SCH ×2 (10:00→17:42)
--- NOTE | 2019-07-15 10:00 | NUR ---
NURSE NOTES: PLACED A TELEPHONE CALL TO DR MENDEZ REGARDING K+ 3.3 .MESSAGE LEFT ON HIS EMERGENCY VOICE MAIL. A WAITING FOR M.D TO CALL ME BACK. WILL CONT TO MONITOR.
[2019-07-15 10:54] LABS: BASOPHILS % (AUTO) 0.3 % (0.0-2.0); EOSINOPHILS % (AUTO) 2.2 % (0.0-3.0); HEMATOCRIT 30.7 % (37.0-47.0); HEMOGLOBIN 9.2 G/DL (12.0-16.0); LYMPHOCYTES % (AUTO) 14.4 % (20.0-45.0); MEAN CORPUSCULAR VOLUME 68 FL (80-99); MONOCYTES % (AUTO) 5.9 % (1.0-10.0); NEUTROPHILS % (AUTO) 77.2 % (45.0-75.0); PLATELET COUNT 258 K/UL (150-450); RED BLOOD COUNT 4.51 M/UL (4.20-5.40); RED CELL DISTRIBUTION WIDTH 18.1 % (11.6-14.8); WHITE BLOOD COUNT 12.9 K/UL (4.8-10.8)
--- NOTE | 2019-07-15 12:00 | NUR ---
NURSE NOTES:DR MENDEZ CALL ME BACK,RECEIVED A T.O TO GIVE KCL 40MEQ X1 VIA NGT. NEW ORDER NOTED AND CARRIED OUT. WILL CONT TO MONITOR.
--- NOTE | 2019-07-15 12:17 | NUR ---
RESPIRATORY NOTE: Patient weaned on a CPAP of 12 only lasted around 50 minutes before SpO2 stat started to drop
--- NOTE | 2019-07-15 13:15 | NUR ---
NURSE NOTES:PT WEANED BY RT .PT WEANED ON A CPAP OF 12 ,LASTED ABOUT 40 TO 50MINUTES BEFORE PT O2 SAT DROPPING AT 85%.PT PLACED BACK TO THE CURRENTS VENT SETTINGS THEM O2 SAT INCREASED TO 98%.DR ORTIZ AND DR MENDEZ CAME TO SEE THE PT AND MADE AWARE & NOTIFIED REGARDING PT WAS PLACED BY RT ON CPAP OF 12 AND LAST ONLY 40 TO 5O MINUTES BEFORE STARTED DESATURATING.Claribel ORTIZ STATED THAT WILL ORDER CHEST X-RAY. WILL CONT TO MONITOR.
--- NOTE | 2019-07-15 13:33 | Pulmonolgy Critical Care Note ---
Critical Care - Asmt/Plan Problems: (1) Pneumonia of both lower lobes Assessment & Plan: VDRF, intubated 07/12/19, S/P FOB 07/12/19 (2) Catheter-associated urinary tract infection Assessment & Plan: PsA and proteus (3) Respiratory failure with hypoxia Assessment & Plan: Acute on chronic hypercapnic and hypoxemic RF 2/2 PNA VDRF as able Duplex neg, minimally elevated d-dimer, unlikely VTE and already on a NOAC (4) HCAP (healthcare-associated pneumonia) (5) Paraplegia (6) Sepsis (7) Suprapubic catheter (8) Restrictive lung disease due to kyphoscoliosis (9) Decubitus skin ulcer (10) Spina bifida Respiratory: monitor respiratory rate, adjust FIO2, CXR, weaning trial - as able, other - HHN's Cardiac: continue to monitor HR/BP Renal: other - SLIV, replete electrolytes Infectious Disease: continue antibiotics - Vanco/Nikki per ID Gastrointestinal: continue feedings/current rate Endocrine: monitor blood sugar Hematologic: monitor H/H Neurologic: keep patient comfortable Prophylaxis: Protonix, other - Eliquis Disposition: keep in ICU Time Spent (Minutes): other Notes Reviewed: hand flatwork finisher, ID Discussed with: nurses, consultants, other - FC, continue to discuss GOC Critical Care - Objective Last 24 Hour Vital Signs Date Time Temp Pulse Resp B/P (MAP) Pulse Ox O2 Delivery O2 Flow Rate FiO2 07/15/19 13:19 67 16 40 07/15/19 13:00 67 15 94/44 (61) 100 07/15/19 12:00 62 07/15/19 12:00 40 07/15/19 12:00 98.1 66 22 100/64 (76) 99 07/15/19 12:00 Mechanical Ventilator 07/15/19 11:20 71 20 40 40 07/15/19 11:00 68 15 99/38 (58) 100 07/15/19 10:00 65 15 107/57 (74) 100 07/15/19 09:11 64 15 40 07/15/19 09:00 64 15 103/53 (70) 100 07/15/19 08:00 40 07/15/19 08:00 67 18 98/43 (61) 100 07/15/19 08:00 65 07/15/19 08:00 Mechanical Ventilator 07/15/19 07:23 71 15 40 07/15/19 07:00 98.8 70 18 116/50 (72) 100 07/15/19 06:00 54 15 102/46 (64) 99 07/15/19 05:25 61 14 40 07/15/19 05:00 57 16 101/46 (64) 99 07/15/19 04:00 Mechanical Ventilator 07/15/19 04:00 40 07/15/19 04:00 98.8 56 16 101/40 (60) 100 07/15/19 04:00 70 07/15/19 03:00 56 15 93/41 (58) 100 07/15/19 02:46 56 14 40 07/15/19 02:00 56 15 87/43 (58) 100 07/15/19 01:28 64 14 40 07/15/19 01:00 58 15 96/44 (61) 100 07/15/19 00:00 71 07/15/19 00:00 40 07/15/19 00:00 99.2 71 14 95/46 (62) 100 07/15/19 00:00 Mechanical Ventilator 07/14/19 23:00 71 14 105/55 (72) 100 07/14/19 22:51 66 14 40 07/14/19 22:00 69 15 106/50 (68) 100 07/14/19 21:25 76 15 40 07/14/19 21:00 99.8 75 16 95/40 (58) 100 07/14/19 20:00 Mechanical Ventilator 07/14/19 20:00 100.0 55 14 108/54 (72) 100 07/14/19 18:45 53 14 40 07/14/19 18:00 69 20 109/56 (73) 100 07/14/19 17:00 69 20 113/73 (86) 100 07/14/19 16:52 73 19 40 07/14/19 16:00 98.8 78 20 109/70 (83) 100 07/14/19 16:00 Mechanical Ventilator 07/14/19 16:00 75 07/14/19 16:00 40 07/14/19 15:03 81 23 40 40 07/14/19 15:00 78 20 135/55 (81) 100 07/14/19 14:00 82 20 133/62 (85) 100 Status: awake - on vent Condition: improving HEENT: atraumatic, normocephalic Neck: full ROM Lungs: rhonchi Heart: HR/BP stable Abdomen: soft, non-tender, active bowel sounds Extremities: edema - trace Decubiti: location - sac, stage - DTI Micro: Microbiology Date/Time Source Procedure Growth Status 07/12/19 13:35 Sputum Expectorated Gram Stain - Final Complete 07/12/19 13:35 Sputum Expectorated Sputum Culture - Final NORMAL UPPER RESPIRATORY KORTNEY PRESENT Complete Blood Sugars: BS controlled Critical Care - Subjective ROS Limited/Unobtainable: Yes ICU Day: 4 Intubation Day: 4 Interval Events: Failed SBT S/p PICC IV Access: PICC - LUE EKG Rhythm: Sinus Rhythm FI02: 40 Vent Support Breath Rate: 14 Vent Support Mode: AC Vent Tidal Volume: 500 Sputum Amount: Scant PEEP: 5.0 PIP: 26 Secretions: scant Fluids: SLIV Tube Feeding Amount: 60 Residuals: 0 I&O: Intake and Output 07/14/19 07/15/19 19:00 07:00 Intake Total 1018.708 ml 800 ml Output Total 400 ml 1190 ml Balance 618.708 ml -390 ml Intake Free Water 100 ml 70 ml IV Total 438.708 ml Tube Feeding 480 ml 730 ml Output Urine Total 400 ml 1190 ml # Bowel Movements 5 5 Subjective: ANDREWS ET-Tube: 8.0 ET Position: 21 Labs: Laboratory Tests Test 07/15/19 06:00 07/15/19 07:35 07/15/19 10:40 White Blood Count 11.2 K/UL (4.8-10.8) H 12.9 K/UL (4.8-10.8) H Red Blood Count 3.53 M/UL (4.20-5.40) L 4.51 M/UL (4.20-5.40) Hemoglobin 7.3 G/DL (12.0-16.0) L 9.2 G/DL (12.0-16.0) L Hematocrit 24.5 % (37.0-47.0) L 30.7 % (37.0-47.0) L Mean Corpuscular Volume 69 FL (80-99) L 68 FL (80-99) L Mean Corpuscular Hemoglobin 20.6 PG (27.0-31.0) L 20.3 PG (27.0-31.0) L Mean Corpuscular Hemoglobin Concent 29.7 G/DL (32.0-36.0) L 29.9 G/DL (32.0-36.0) L Red Cell Distribution Width 18.5 % (11.6-14.8) H 18.1 % (11.6-14.8) H Platelet Count 207 K/UL (150-450) 258 K/UL (150-450) Mean Platelet Volume 5.9 FL (6.5-10.1) L 6.2 FL (6.5-10.1) L Neutrophils (%) (Auto) % (45.0-75.0) 77.2 % (45.0-75.0) H Lymphocytes (%) (Auto) % (20.0-45.0) 14.4 % (20.0-45.0) L Monocytes (%) (Auto) % (1.0-10.0) 5.9 % (1.0-10.0) Eosinophils (%) (Auto) % (0.0-3.0) 2.2 % (0.0-3.0) Basophils (%) (Auto) % (0.0-2.0) 0.3 % (0.0-2.0) Differential Total Cells Counted 100 Neutrophils % (Manual) 78 % (45-75) H Lymphocytes % (Manual) 11 % (20-45) L Monocytes % (Manual) 10 % (1-10) Eosinophils % (Manual) 1 % (0-3) Basophils % (Manual) 0 % (0-2) Band Neutrophils 0 % (0-8) Platelet Estimate Adequate Platelet Morphology Normal Hypochromasia 1+ Anisocytosis 1+ Microcytosis 2+ Sodium Level 141 MMOL/L (136-145) Potassium Level 3.3 MMOL/L (3.5-5.1) L Chloride Level 105 MMOL/L (98-107) Carbon Dioxide Level 30 MMOL/L (21-32) Anion Gap 7 mmol/L (5-15) Blood Urea Nitrogen 13 mg/dL (7-18) Creatinine 0.4 MG/DL (0.55-1.30) L Estimat Glomerular Filtration Rate > 60 mL/min (>60) Glucose Level 148 MG/DL (74-106) H Calcium Level 7.7 MG/DL (8.5-10.1) L Total Bilirubin 0.3 MG/DL (0.2-1.0) Aspartate Amino Transf (AST/SGOT) 7 U/L (15-37) L Alanine Aminotransferase (ALT/SGPT) 8 U/L (12-78) L Alkaline Phosphatase 67 U/L (46-116) Total Protein 6.4 G/DL (6.4-8.2) Albumin 2.1 G/DL (3.4-5.0) L Globulin 4.3 g/dL Albumin/Globulin Ratio 0.5 (1.0-2.7) L Regino Pearson MD Jul 15, 2019 13:33
--- NOTE | 2019-07-15 13:54 | Infectious Diseases Prog Note ---
Assessment/Plan Problems: (1) Pneumonia of both lower lobes Assessment & Plan: possible aspiration related S/P intubation and bronchoscopy with BAL . with improvement in her oxygen level , responded to meropenem coverage , pending BAL culture and other cultures , aspiration precaution, monitor CXR as per pulmonary (2) Catheter-associated urinary tract infection Assessment & Plan: with MDR pseudomonas aeruginosa and proteus mirabilis already on meropenem , continue local catheter care, recommend to change the suprapubic catheter (3) Sepsis Assessment & Plan: due to the above, continue wide spectrum antibiotics pending cultures (4) Decubitus skin ulcer Assessment & Plan: of the sacrum, continue off loading and local wound care as per hospital protocol (5) Respiratory failure with hypoxia Assessment & Plan: due to the above, with CO2 retention S/P intubation on mechanical ventilation , monitor ABG and CXR , pulmonary is following (6) Spina bifida Subjective ROS Limited/Unobtainable: Yes Allergies: Coded Allergies: PENICILLIN G (Verified Allergy, Unknown, 12/02/18) Tolerates cabapenem, cephalosporin PENICILLINS (Unverified Allergy, Unknown, 12/02/18) Subjective she was extubated and started on BIPAP , awake and responsive . no fever or chills today , has mild cough no phlegm . no diarrhea . mild oral thrush Objective Vital Signs Last 24 Hour Vital Signs Date Time Temp Pulse Resp B/P (MAP) Pulse Ox O2 Delivery O2 Flow Rate FiO2 07/15/19 13:19 67 16 40 07/15/19 13:00 67 15 94/44 (61) 100 07/15/19 12:00 62 07/15/19 12:00 40 07/15/19 12:00 98.1 66 22 100/64 (76) 99 07/15/19 12:00 Mechanical Ventilator 07/15/19 11:20 71 20 40 40 07/15/19 11:00 68 15 99/38 (58) 100 07/15/19 10:00 65 15 107/57 (74) 100 07/15/19 09:11 64 15 40 07/15/19 09:00 64 15 103/53 (70) 100 07/15/19 08:00 40 07/15/19 08:00 67 18 98/43 (61) 100 07/15/19 08:00 65 07/15/19 08:00 Mechanical Ventilator 07/15/19 07:23 71 15 40 07/15/19 07:00 98.8 70 18 116/50 (72) 100 07/15/19 06:00 54 15 102/46 (64) 99 07/15/19 05:25 61 14 40 07/15/19 05:00 57 16 101/46 (64) 99 07/15/19 04:00 Mechanical Ventilator 07/15/19 04:00 40 07/15/19 04:00 98.8 56 16 101/40 (60) 100 07/15/19 04:00 70 07/15/19 03:00 56 15 93/41 (58) 100 07/15/19 02:46 56 14 40 07/15/19 02:00 56 15 87/43 (58) 100 07/15/19 01:28 64 14 40 07/15/19 01:00 58 15 96/44 (61) 100 07/15/19 00:00 71 07/15/19 00:00 40 07/15/19 00:00 99.2 71 14 95/46 (62) 100 07/15/19 00:00 Mechanical Ventilator 07/14/19 23:00 71 14 105/55 (72) 100 07/14/19 22:51 66 14 40 07/14/19 22:00 69 15 106/50 (68) 100 07/14/19 21:25 76 15 40 07/14/19 21:00 99.8 75 16 95/40 (58) 100 07/14/19 20:00 Mechanical Ventilator 07/14/19 20:00 100.0 55 14 108/54 (72) 100 07/14/19 18:45 53 14 40 07/14/19 18:00 69 20 109/56 (73) 100 07/14/19 17:00 69 20 113/73 (86) 100 07/14/19 16:52 73 19 40 07/14/19 16:00 98.8 78 20 109/70 (83) 100 07/14/19 16:00 Mechanical Ventilator 07/14/19 16:00 75 07/14/19 16:00 40 07/14/19 15:03 81 23 40 40 07/14/19 15:00 78 20 135/55 (81) 100 07/14/19 14:00 82 20 133/62 (85) 100 Height (Feet): 4 Height (Inches): 10.00 Weight (Pounds): 149 General Appearance: WD/WN, no acute distress HEENT: normocephalic, atraumatic, anicteric, mucous membranes moist, PERRL Respiratory/Chest: chest wall non-tender, no respiratory distress, no accessory muscle use, decreased breath sounds, crackles/rales Cardiovascular: normal peripheral pulses, normal rate, regular rhythm, no gallop/murmur, no JVD Abdomen: normal bowel sounds, soft, non tender, no organomegaly, non distended , no mass, no scars Genitourinary: normal external genitalia Extremities: no cyanosis, no clubbing Skin: no rash, no lesions, no ulcers Neurologic/Psychiatric: material spreader II-XII grossly normal, alert, responsive Lymphatic: no neck adenopathy, no groin adenopathy Musculoskeletal: normal muscle bulk, no effusion Laboratory Tests Test 07/15/19 06:00 07/15/19 07:35 07/15/19 10:40 White Blood Count 11.2 K/UL (4.8-10.8) H 12.9 K/UL (4.8-10.8) H Red Blood Count 3.53 M/UL (4.20-5.40) L 4.51 M/UL (4.20-5.40) Hemoglobin 7.3 G/DL (12.0-16.0) L 9.2 G/DL (12.0-16.0) L Hematocrit 24.5 % (37.0-47.0) L 30.7 % (37.0-47.0) L Mean Corpuscular Volume 69 FL (80-99) L 68 FL (80-99) L Mean Corpuscular Hemoglobin 20.6 PG (27.0-31.0) L 20.3 PG (27.0-31.0) L Mean Corpuscular Hemoglobin Concent 29.7 G/DL (32.0-36.0) L 29.9 G/DL (32.0-36.0) L Red Cell Distribution Width 18.5 % (11.6-14.8) H 18.1 % (11.6-14.8) H Platelet Count 207 K/UL (150-450) 258 K/UL (150-450) Mean Platelet Volume 5.9 FL (6.5-10.1) L 6.2 FL (6.5-10.1) L Neutrophils (%) (Auto) % (45.0-75.0) 77.2 % (45.0-75.0) H Lymphocytes (%) (Auto) % (20.0-45.0) 14.4 % (20.0-45.0) L Monocytes (%) (Auto) % (1.0-10.0) 5.9 % (1.0-10.0) Eosinophils (%) (Auto) % (0.0-3.0) 2.2 % (0.0-3.0) Basophils (%) (Auto) % (0.0-2.0) 0.3 % (0.0-2.0) Differential Total Cells Counted 100 Neutrophils % (Manual) 78 % (45-75) H Lymphocytes % (Manual) 11 % (20-45) L Monocytes % (Manual) 10 % (1-10) Eosinophils % (Manual) 1 % (0-3) Basophils % (Manual) 0 % (0-2) Band Neutrophils 0 % (0-8) Platelet Estimate Adequate Platelet Morphology Normal Hypochromasia 1+ Anisocytosis 1+ Microcytosis 2+ Sodium Level 141 MMOL/L (136-145) Potassium Level 3.3 MMOL/L (3.5-5.1) L Chloride Level 105 MMOL/L (98-107) Carbon Dioxide Level 30 MMOL/L (21-32) Anion Gap 7 mmol/L (5-15) Blood Urea Nitrogen 13 mg/dL (7-18) Creatinine 0.4 MG/DL (0.55-1.30) L Estimat Glomerular Filtration Rate > 60 mL/min (>60) Glucose Level 148 MG/DL (74-106) H Calcium Level 7.7 MG/DL (8.5-10.1) L Total Bilirubin 0.3 MG/DL (0.2-1.0) Aspartate Amino Transf (AST/SGOT) 7 U/L (15-37) L Alanine Aminotransferase (ALT/SGPT) 8 U/L (12-78) L Alkaline Phosphatase 67 U/L (46-116) Total Protein 6.4 G/DL (6.4-8.2) Albumin 2.1 G/DL (3.4-5.0) L Globulin 4.3 g/dL Albumin/Globulin Ratio 0.5 (1.0-2.7) L Current Medications Medications (Trade) Dose Ordered Sig/Sandeep Route PRN Reason Start Time Stop Time Status Last Admin Dose Admin Acetaminophen (Tylenol) 650 mg Q6H PRN ORAL Mild Pain/Temp > 100.5 07/12/19 12:30 08/11/19 12:29 07/14/19 08:29 Albuterol/ Ipratropium (Albuterol/ Ipratropium) 3 ml Q4HRT PRN HHN Shortness of Breath 07/12/19 15:00 07/17/19 03:44 Apixaban (Eliquis) 5 mg BID ORAL 07/12/19 18:00 08/11/19 08:59 07/15/19 10:00 Chlorhexidine Gluconate (Debora-Hex 2%) 1 applic DAILY@2000 TOPIC 07/14/19 20:00 08/13/19 19:59 07/14/19 20:15 Meropenem 1 gm/ Sodium Chloride 55 ml @ 110 mls/hr Q8HR IVPB 07/13/19 15:00 07/18/19 14:59 07/15/19 05:57 Nystatin (Nystatin) 5 ml QID ORAL 07/13/19 09:00 07/20/19 08:59 07/15/19 13:05 Pantoprazole (Protonix) 40 mg DAILY ORAL 07/13/19 09:00 08/11/19 08:59 07/15/19 10:00 Sennosides (Senokot) 8.6 mg BID ORAL 07/12/19 18:00 08/11/19 08:59 07/15/19 10:00 Vancomycin HCl (Vanco rx to dose) 1 ea DAILY PRN MISC rx protocol 07/13/19 09:00 08/11/19 08:59 Vancomycin HCl 1 gm/Dextrose 275 ml @ 183.708 mls/hr Q12H IVPB 07/12/19 17:00 07/17/19 04:59 07/15/19 05:01 Gigi Sanabria M.D. Jul 15, 2019 13:54
--- NOTE | 2019-07-15 15:16 | NUR ---
NURSE NOTES:WOUND CARE NOTES:Pt presented on admission with full thickness pressure injury sacrum with surrounding hyperpigmentation and historical surgical scars. Base of wound is moist and viable. Borders are macerated(L)2.5cm x (W)2cm.Resolving pressure injury R ischium. Loose dry eschar removed. [place] epithelial at base of injury. Both heels are boggy but blanchable. Tx.Plan: Apply Moisture Barrier Paste to Sacrum. Cover with Optifoam drsg. Change every 3 days and prn. Apply Moisture Barrier Paste to R and L ischium. Cover each site with Optifoam drsg. Change every 3 days and prn. Reposition at least every 2hours or as tolerated. Off-load heels with pillow.
--- NOTE | 2019-07-15 16:37 | NUR ---
CASE MANAGEMENT:REVIEW 07/15/19 SI;HCA PNA. HCA SEPSIS. UTI. RESP FAILURE W/HYPOXIA 97.8 63 15 104/50 98% MECH VENT FiO2 40 WBC 12.9 H/H 9.2/30.7 K 3.3 ALB 2.1 IS;MEROPENEM IV Q8 HR VANCO IV DUONEB HHN K CL ICU STATUS
--- NOTE | 2019-07-15 18:08 | General Progress Note ---
Assessment/Plan Status: stable Assessment/Plan: S, O: Intubated, awake, is following command, vent setting reviewed PHYSICAL EXAMINATION:HEAD AND NECK: intubated , Atraumatic, normocephalic. CHEST: Diffuse bronchial breathing sounds. No wheezing.HEART: S1, S2. Regular rate and rhythm. ABDOMEN: Obese, positive for suprapubic catheter.MUSCULOSKELETAL: The atrophy of the lower extremities, paraplegia are noted.NEUROLOGY: The patient is Intubated, limited eval LABORATORY AND DIAGNOSTIC DATA: Dated July 15 reviewed ASSESSMENT AND PLAN: 1. Sepsis - healthcare associated. 2. Pneumonia, healthcare associated. 3. UTI - healthcare associated. 4. Congenital abnormalities, spina bifida, paraplegic, wheelchair-bound. 5. On New oral anticoagulation 6. GI and DVT prophylaxis. PLAN OF CARE: Current Pulmonary and ID care S/P Bronch, pending cultures Notes from urology, ID Pulmonary reviewed Discussed the care with ID and Pulmonary Decreasing WBC counts, afebrile, Again, KCL supplement failed first attempt for extubation , will continue additional attempts per pulmonary I spent 60 minutes in direct patient care. Subjective Allergies: Coded Allergies: PENICILLIN G (Verified Allergy, Unknown, 12/02/18) Tolerates cabapenem, cephalosporin PENICILLINS (Unverified Allergy, Unknown, 12/02/18) Objective Last 24 Hour Vital Signs Date Time Temp Pulse Resp B/P (MAP) Pulse Ox O2 Delivery O2 Flow Rate FiO2 07/15/19 17:00 65 15 113/60 (77) 100 07/15/19 16:55 63 15 40 07/15/19 16:02 65 15 40 07/15/19 16:00 65 07/15/19 16:00 97.8 63 15 104/50 (68) 98 07/15/19 16:00 Mechanical Ventilator 07/15/19 16:00 40 07/15/19 15:00 64 15 107/62 (77) 100 07/15/19 14:00 61 15 120/53 (75) 100 07/15/19 14:00 66 15 120/53 (75) 100 07/15/19 13:19 67 16 40 07/15/19 13:00 67 15 94/44 (61) 100 07/15/19 12:15 40 07/15/19 12:00 62 07/15/19 12:00 98.1 66 22 100/64 (76) 99 07/15/19 12:00 Mechanical Ventilator 07/15/19 11:20 71 20 40 40 07/15/19 11:00 68 15 99/38 (58) 100 07/15/19 10:00 65 15 107/57 (74) 100 07/15/19 09:11 64 15 40 07/15/19 09:00 64 15 103/53 (70) 100 07/15/19 08:00 40 07/15/19 08:00 67 18 98/43 (61) 100 07/15/19 08:00 65 07/15/19 08:00 Mechanical Ventilator 07/15/19 07:23 71 15 40 07/15/19 07:00 98.8 70 18 116/50 (72) 100 07/15/19 06:00 54 15 102/46 (64) 99 07/15/19 05:25 61 14 40 07/15/19 05:00 57 16 101/46 (64) 99 07/15/19 04:00 Mechanical Ventilator 07/15/19 04:00 40 07/15/19 04:00 98.8 56 16 101/40 (60) 100 07/15/19 04:00 70 07/15/19 03:00 56 15 93/41 (58) 100 07/15/19 02:46 56 14 40 07/15/19 02:00 56 15 87/43 (58) 100 07/15/19 01:28 64 14 40 07/15/19 01:00 58 15 96/44 (61) 100 07/15/19 00:00 71 07/15/19 00:00 40 07/15/19 00:00 99.2 71 14 95/46 (62) 100 07/15/19 00:00 Mechanical Ventilator 07/14/19 23:00 71 14 105/55 (72) 100 07/14/19 22:51 66 14 40 07/14/19 22:00 69 15 106/50 (68) 100 07/14/19 21:25 76 15 40 07/14/19 21:00 99.8 75 16 95/40 (58) 100 07/14/19 20:00 Mechanical Ventilator 07/14/19 20:00 100.0 55 14 108/54 (72) 100 07/14/19 18:45 53 14 40 Intake and Output 07/14/19 07/15/19 19:00 07:00 Intake Total 1018.708 ml 800 ml Output Total 400 ml 1190 ml Balance 618.708 ml -390 ml Intake Free Water 100 ml 70 ml IV Total 438.708 ml Tube Feeding 480 ml 730 ml Output Urine Total 400 ml 1190 ml # Bowel Movements 5 5 Laboratory Tests 07/15/19 06:00: White Blood Count 11.2H, Red Blood Count 3.53L, Hemoglobin 7.3L, Hematocrit 24.5L, Mean Corpuscular Volume 69L, Mean Corpuscular Hemoglobin 20.6L, Mean Corpuscular Hemoglobin Concent 29.7L, Red Cell Distribution Width 18.5H, Platelet Count 207, Mean Platelet Volume 5.9L, Neutrophils (%) (Auto) , Lymphocytes (%) (Auto) , Monocytes (%) (Auto) , Eosinophils (%) (Auto) , Basophils (%) (Auto) , Differential Total Cells Counted 100, Neutrophils % ( Manual) 78H, Lymphocytes % (Manual) 11L, Monocytes % (Manual) 10, Eosinophils % (Manual) 1, Basophils % (Manual) 0, Band Neutrophils 0, Platelet Estimate Adequate, Platelet Morphology Normal, Hypochromasia 1+, Anisocytosis 1+, Microcytosis 2+ 07/15/19 07:35: Sodium Level 141, Potassium Level 3.3L, Chloride Level 105, Carbon Dioxide Level 30, Anion Gap 7, Blood Urea Nitrogen 13, Creatinine 0.4L, Estimat Glomerular Filtration Rate > 60, Glucose Level 148H, Calcium Level 7.7L, Total Bilirubin 0.3, Aspartate Amino Transf (AST/SGOT) 7L, Alanine Aminotransferase ( ALT/SGPT) 8L, Alkaline Phosphatase 67, Total Protein 6.4, Albumin 2.1L, Globulin 4.3, Albumin/Globulin Ratio 0.5L 07/15/19 10:40: White Blood Count 12.9H, Red Blood Count 4.51, Hemoglobin 9.2L, Hematocrit 30.7L , Mean Corpuscular Volume 68L, Mean Corpuscular Hemoglobin 20.3L, Mean Corpuscular Hemoglobin Concent 29.9L, Red Cell Distribution Width 18.1H, Platelet Count 258, Mean Platelet Volume 6.2L, Neutrophils (%) (Auto) 77.2H, Lymphocytes (%) (Auto) 14.4L, Monocytes (%) (Auto) 5.9, Eosinophils (%) (Auto) 2.2, Basophils (%) (Auto) 0.3 Height (Feet): 4 Height (Inches): 10.00 Weight (Pounds): 149 Denise Neri MD Jul 15, 2019 18:08
--- NOTE | 2019-07-15 18:58 | NUR ---
RESPIRATORY NOTE: Received pt on AC 14, 500VT, 40%, PEEP +5. Pt intubated w/ ETT 8.0 @ 21cm lipline, secured by anchorfast. Pt is alert/awake, follows commands. B/S guillermo. rhonchi, sxn small amounts of thin/thick, pale-yellow secretions. Vent plugged into red outlet, ambubag at bedside. Pt resting comfortably, in no apparent distress at this time. Will continue to monitor pt.
--- NOTE | 2019-07-15 19:10 | NUR ---
HAND-OFF: Report given to .MUKUL CARTER.
--- NOTE | 2019-07-15 19:20 | NUR ---
NURSE NOTES: Received patient and report from EMMA Faye. Pt's awake, alert, non verbal, Orally intubated ETT 8, 21LL, AC 14 VT 500 FIO2 40% PEEP 5. On Jevity 1.2 at 60ml/hr and residual 15cc at this time. NGT placement intact in left nare. Right finger gauge 24 peripheral line clamped, intact. Left UA PICC noted, intact, no redness noted. Patient turned and repositioned, oral care done. Suprapubic cath draining cloudy urine noted. Suctioned as tolerated, HOB elevated to prevent aspiration.Call light within easy reach, will continue to monitor
[2019-07-15] MEDS: Dyna-Hex 2% Top Sol 2oz TOPIC SCH (21:32)
--- NOTE | 2019-07-15 22:00 | NUR ---
NURSE NOTES: Pt's resting in bed, accompanied by her family members. Pt's in stable condition, in no acute distress. VS stable. Will continue to monitor.
[2019-07-16] VITALS (24 sets, daily range): BP systolic 99–138; BP diastolic 43–90
--- NOTE | 2019-07-16 | NUR ---
NURSE NOTES: Pt's resting in bed, asleep with eyes closed. VS stable, no acute distress noted. Will continue to monitor.
--- NOTE | 2019-07-16 02:00 | NUR ---
NURSE NOTES: Pt's resting in bed, asleep with eyes closed. VS stable, no acute distress noted. Will continue to monitor.
--- NOTE | 2019-07-16 04:00 | NUR ---
NURSE NOTES: Pt's resting in bed, asleep with eyes closed. VS stable, no acute distress noted. Will continue to monitor.
[2019-07-16 04:29] LABS: BASOPHILS % (AUTO) 0.4 % (0.0-2.0); EOSINOPHILS % (AUTO) 2.7 % (0.0-3.0); HEMATOCRIT 29.6 % (37.0-47.0); HEMOGLOBIN 8.9 G/DL (12.0-16.0); LYMPHOCYTES % (AUTO) 15.3 % (20.0-45.0); MEAN CORPUSCULAR VOLUME 68 FL (80-99); MONOCYTES % (AUTO) 5.8 % (1.0-10.0); NEUTROPHILS % (AUTO) 75.8 % (45.0-75.0); PLATELET COUNT 269 K/UL (150-450); RED BLOOD COUNT 4.33 M/UL (4.20-5.40); RED CELL DISTRIBUTION WIDTH 18.2 % (11.6-14.8); WHITE BLOOD COUNT 11.7 K/UL (4.8-10.8)
[2019-07-16 04:52] LABS: ALANINE AMINOTRANSFERASE 14 U/L (12-78); ALBUMIN 2.3 G/DL (3.4-5.0); ALBUMIN/GLOBULIN RATIO 0.5 (1.0-2.7); ALKALINE PHOSPHATASE 70 U/L (46-116); ANION GAP 5 mmol/L (5-15); ASPARTATE AMINO TRANSFERASE 9 U/L (15-37); BILIRUBIN,TOTAL 0.2 MG/DL (0.2-1.0); BLOOD UREA NITROGEN 12 mg/dL (7-18); CALCIUM 7.9 MG/DL (8.5-10.1); CARBON DIOXIDE 29 MMOL/L (21-32); CHLORIDE 105 MMOL/L (98-107); CREATININE 0.4 MG/DL (0.55-1.30); POTASSIUM 3.9 MMOL/L (3.5-5.1); SODIUM 139 MMOL/L (136-145)
[2019-07-16] MEDS: Meropenem 1 GM in NS 55 ML IVPB SCH ×3 (05:38→22:31)
--- NOTE | 2019-07-16 06:00 | NUR ---
NURSE NOTES: Pt's resting in bed, asleep with eyes closed. VS stable, no acute distress noted. Will continue to monitor.
--- NOTE | 2019-07-16 07:26 | NUR ---
RESPIRATORY NOTE: Received pt on AC 14-500ml-40%FiO2- peep 5 with ETT 8.0@21 cm lip line, secured by anchor fast. Pt is awake, alert and able to follow simple commands. No SOB or resp distress noted. Alarms are set and audible, vent is plugged into the red outlet, ambu bag is at bedside. Will continue to monitor pt.
--- NOTE | 2019-07-16 07:30 | NUR ---
HAND-OFF: Report given to EMMA Grove.
--- NOTE | 2019-07-16 07:35 | NUR ---
NURSE NOTES: upon initial assessment patient is noted to follow commands, track staff and use gestures to make needs known, report no pain at this time by shaking head from left to right, has thick quiroz-pink frothy secretions suctioned from ET tube, currently remains on AC 14, TV: 500, Fio2: 40% and Peep of 5 with Et-tube of 8.0 at 21cm. Patient has a Left upper arm PICC line with TKO fluids running, patient has sacral wound and a right buttock DTI,
--- NOTE | 2019-07-16 07:55 | NUR ---
NURSE NOTES: On bedside report, NG-tube noted to be displaced to approximately 30-32cm. tube feeding is on hold, Dr. Pearson called to inform of ng-tube displacement and awaiting for call back.
--- NOTE | 2019-07-16 08:55 | NUR ---
NURSE NOTES: Dr. Pearson returned call and ordered to have an abdominal X-ray taken to confirm NG-tube placement after reposition, patient is currently relaxed and sleeping, HR is 64-65 in sinus rhythm with BP of 104/85, remains on AC setting with RR of 17 and saturating at 100%, tube feeding remains on hold.
--- NOTE | 2019-07-16 10:33 | Diagnostic Imaging Report ---
EXAM: XR Abdomen, 2 Views CLINICAL HISTORY: NGT TECHNIQUE: Frontal view of the abdomen/pelvis . COMPARISON: Abdomen x-ray 07/12/19 FINDINGS: Lower thorax: Complete opacification of the left hemithorax may be pleural effusion or airspace disease, cannot exclude mucous impaction. Gastrointestinal tract: Large stool in the colon may be constipation. Nonspecific gassy small bowel. No definite obstruction. Bones/joints: Superiorly dislocated right femur with intramedullary alysha and wires. Tubes, lines and devices: NG tube traverses diaphragm into the stomach, good position. Bilateral nephroureteral tubes. Right chest and abdominal wall CARPET WEAVER shunt catheter. IMPRESSION: 1. NG tube traverses diaphragm into the stomach, good position. 2. Complete opacification of the left hemithorax may be pleural effusion or airspace disease, cannot exclude mucous impaction. Not fully imaged. 3. Bilateral nephroureteral tubes. 4. Superiorly dislocated right femur with intramedullary alysha and wires. 5. Large stool in the colon may be constipation. Nonspecific gassy small bowel. No definite obstruction. <MYCVCSECTION> Communications: 07/16/19 10:42 Verify Receipt with Nurse Verified receipt with [facility] in ICU for [facility] on 07/16 10:42 (-08:00)
--- NOTE | 2019-07-16 11:05 | NUR ---
NURSE NOTES: Abdominal X-ray confirms NG-tube is in good position, tube feeding started at 40ml/hr and morning medication given, Patient remains awake and oriented while weaning with PS of 8 and FIO2 of 40% with Peep of 5.
[2019-07-16] MEDS: Nystatin Susp 500,000 units/5ml ORAL SCH ×4 (11:07→21:05)
[2019-07-16] MEDS: Eliquis 5mg tablet ORAL SCH ×2 (11:07→17:36)
[2019-07-16] MEDS: Sennosides 8.6mg tab ORAL SCH ×2 (11:07→17:36)
--- NOTE | 2019-07-16 12:47 | General Progress Note ---
Assessment/Plan Status: stable Assessment/Plan: S, O: Intubated, awake, is following command, vent setting reviewed PHYSICAL EXAMINATION:HEAD AND NECK: intubated , Atraumatic, normocephalic. CHEST: Diffuse bronchial breathing sounds. No wheezing.HEART: S1, S2. Regular rate and rhythm. ABDOMEN: Obese, positive for suprapubic catheter.MUSCULOSKELETAL: The atrophy of the lower extremities, paraplegia are noted.NEUROLOGY: The patient is Intubated, limited eval LABORATORY AND DIAGNOSTIC DATA: Dated July 15 reviewed ASSESSMENT AND PLAN: 1. Sepsis - healthcare associated. 2. Pneumonia, healthcare associated. 3. UTI - healthcare associated. 4. Congenital abnormalities, spina bifida, paraplegic, wheelchair-bound. 5. On New oral anticoagulation 6. GI and DVT prophylaxis. PLAN OF CARE: Current Pulmonary and ID care S/P Bronch, pending cultures Notes from urology, ID Pulmonary reviewed Discussed the care with ID and Pulmonary Decreasing WBC counts, afebrile, failed second attempt for extubation , will continue additional attempts per pulmonary I spent 60 minutes in direct patient care. Subjective Allergies: Coded Allergies: PENICILLIN G (Verified Allergy, Unknown, 12/02/18) Tolerates cabapenem, cephalosporin PENICILLINS (Unverified Allergy, Unknown, 12/02/18) Objective Last 24 Hour Vital Signs Date Time Temp Pulse Resp B/P (MAP) Pulse Ox O2 Delivery O2 Flow Rate FiO2 07/16/19 12:00 98 07/16/19 12:00 Mechanical Ventilator 07/16/19 12:00 97.1 102 18 130/64 (86) 96 07/16/19 12:00 40 07/16/19 11:05 91 19 40 07/16/19 11:00 98 19 138/70 (92) 99 07/16/19 10:00 71 17 120/90 (100) 99 07/16/19 09:00 64 16 108/55 (72) 100 07/16/19 09:00 65 20 40 07/16/19 08:00 98.8 65 15 104/85 (91) 99 07/16/19 08:00 72 07/16/19 08:00 40 07/16/19 08:00 Mechanical Ventilator 07/16/19 07:26 61 20 40 07/16/19 07:00 71 14 120/58 (78) 100 07/16/19 06:00 70 14 100/57 (71) 100 07/16/19 05:05 74 15 40 07/16/19 05:00 75 14 110/57 (74) 100 07/16/19 04:00 68 07/16/19 04:00 Mechanical Ventilator 07/16/19 04:00 68 14 115/58 (77) 100 07/16/19 04:00 40 07/16/19 03:06 62 14 40 07/16/19 03:00 98.2 69 14 102/43 (62) 100 07/16/19 02:00 59 14 110/57 (74) 100 07/16/19 01:04 57 14 40 07/16/19 01:00 60 14 100/58 (72) 100 07/16/19 00:00 64 14 100/59 (73) 100 07/16/19 00:00 66 07/16/19 00:00 Mechanical Ventilator 07/16/19 00:00 40 07/15/19 23:17 74 15 40 07/15/19 23:00 74 14 104/59 (74) 100 07/15/19 22:00 71 14 89/69 (76) 100 07/15/19 21:05 75 15 40 07/15/19 21:00 72 14 110/50 (70) 100 07/15/19 20:00 98.4 72 14 111/50 (70) 100 07/15/19 20:00 72 07/15/19 20:00 Mechanical Ventilator 07/15/19 19:00 70 14 128/56 (80) 100 07/15/19 18:55 65 15 40 07/15/19 18:00 63 14 113/53 (73) 100 07/15/19 17:00 65 15 113/60 (77) 100 07/15/19 16:55 63 15 40 07/15/19 16:02 65 15 40 07/15/19 16:00 65 07/15/19 16:00 97.8 63 15 104/50 (68) 98 07/15/19 16:00 Mechanical Ventilator 07/15/19 16:00 40 07/15/19 15:00 64 15 107/62 (77) 100 07/15/19 14:00 61 15 120/53 (75) 100 07/15/19 14:00 66 15 120/53 (75) 100 12/24/19 13:19 67 16 40 07/15/19 13:00 67 15 94/44 (61) 100 Intake and Output 07/15/19 07/16/19 19:00 07:00 Intake Total 1075 ml 930 ml Output Total 900 ml 780 ml Balance 175 ml 150 ml Intake Free Water 300 ml 100 ml IV Total 55 ml 110 ml Tube Feeding 720 ml 720 ml Output Urine Total 900 ml 780 ml # Bowel Movements 4 1 Laboratory Tests 07/16/19 04:00: White Blood Count 11.7H, Red Blood Count 4.33, Hemoglobin 8.9L, Hematocrit 29.6L , Mean Corpuscular Volume 68L, Mean Corpuscular Hemoglobin 20.7L, Mean Corpuscular Hemoglobin Concent 30.2L, Red Cell Distribution Width 18.2H, Platelet Count 269, Mean Platelet Volume 5.6L, Neutrophils (%) (Auto) 75.8H, Lymphocytes (%) (Auto) 15.3L, Monocytes (%) (Auto) 5.8, Eosinophils (%) (Auto) 2.7, Basophils (%) (Auto) 0.4, Sodium Level 139, Potassium Level 3.9, Chloride Level 105, Carbon Dioxide Level 29, Anion Gap 5, Blood Urea Nitrogen 12, Creatinine 0.4L, Estimat Glomerular Filtration Rate > 60, Glucose Level 153H, Calcium Level 7.9L, Total Bilirubin 0.2, Aspartate Amino Transf (AST/SGOT) 9L, Alanine Aminotransferase (ALT/SGPT) 14, Alkaline Phosphatase 70, Total Protein 7.1, Albumin 2.3L, Globulin 4.8, Albumin/Globulin Ratio 0.5L 07/16/19 12:29: Arterial Blood pH 7.331L, Arterial Blood Partial Pressure CO2 50.6H, Arterial Blood Partial Pressure O2 65.5L, Arterial Blood HCO3 26.1H, Arterial Blood Oxygen Saturation 89.8*L, Arterial Blood Base Excess -0.2, Gerard Test Positive Height (Feet): 4 Height (Inches): 10.00 Weight (Pounds): 145 Denise Neri MD Jul 16, 2019 12:47
--- NOTE | 2019-07-16 14:15 | NUR ---
NURSE NOTES: Patient placed back to AC 14 and stopped weaning trial, she remained awake and alert, expressed she was tiring and would like to be placed back to AC and rest, saturations are stable at 94-97% on Fio2 of 40% with RR of 20-25, thick tannish secretions noted while suctioning.
--- NOTE | 2019-07-16 15:08 | NUR ---
NURSE NOTES: Dr. Bonilla covering for Dr. martin assessed patient at the bedside, updated on patient condition and progress while weaning, patient placed back to AC setting at 1415 since she expressed she was tiring, saturations remains 95-98% with RR of 20-25, hR noted to increase to 110. she remained awake and alert throughout weaning trial watching television, tube feeding remains at 40ml/hr with no residual noted and NG-tube at 60cm. after reviewing ABG results, he decided to place orders for ABG, Chest X-ray, Duoneb Q6hrs and a Pro BNP for 07/17/19 in the morning, continue to wean.
--- NOTE | 2019-07-16 15:31 | Pulmonolgy Critical Care Note ---
Critical Care - Asmt/Plan Assessment/Plan: (1) Pneumonia of both lower lobes Assessment & Plan: VDRF, intubated 07/12/19, S/P FOB 07/12/19 (2) Catheter-associated urinary tract infection Assessment & Plan: PsA and proteus (3) Respiratory failure with hypoxia Assessment & Plan: Acute on chronic hypercapnic and hypoxemic RF 2/2 PNA VDRF as able Duplex neg, minimally elevated d-dimer, unlikely VTE and already on a NOAC (4) HCAP (healthcare-associated pneumonia) (5) Paraplegia (6) Sepsis (7) Suprapubic catheter (8) Restrictive lung disease due to kyphoscoliosis (9) Decubitus skin ulcer (10) Spina bifida Respiratory: monitor respiratory rate, CXR, weaning trial Cardiac: continue to monitor HR/BP Renal: F/U I&O Time Spent (Minutes): 40 Discussed with: nurses Critical Care - Objective Last 24 Hour Vital Signs Date Time Temp Pulse Resp B/P (MAP) Pulse Ox O2 Delivery O2 Flow Rate FiO2 07/16/19 15:00 75 17 99/57 (71) 100 07/16/19 14:40 81 14 40 07/16/19 14:00 101 21 131/66 (87) 97 07/16/19 13:00 105 20 128/83 (98) 97 07/16/19 12:38 107 26 40 07/16/19 12:00 98 07/16/19 12:00 Mechanical Ventilator 07/16/19 12:00 97.1 102 18 130/64 (86) 96 07/16/19 12:00 40 07/16/19 11:05 91 19 40 07/16/19 11:00 98 19 138/70 (92) 99 07/16/19 10:00 71 17 120/90 (100) 99 07/16/19 09:00 64 16 108/55 (72) 100 07/16/19 09:00 65 20 40 07/16/19 08:00 98.8 65 15 104/85 (91) 99 07/16/19 08:00 72 07/16/19 08:00 40 07/16/19 08:00 Mechanical Ventilator 07/16/19 07:26 61 20 40 07/16/19 07:00 71 14 120/58 (78) 100 07/16/19 06:00 70 14 100/57 (71) 100 07/16/19 05:05 74 15 40 07/16/19 05:00 75 14 110/57 (74) 100 07/16/19 04:00 68 07/16/19 04:00 Mechanical Ventilator 07/16/19 04:00 68 14 115/58 (77) 100 07/16/19 04:00 40 07/16/19 03:06 62 14 40 07/16/19 03:00 98.2 69 14 102/43 (62) 100 07/16/19 02:00 59 14 110/57 (74) 100 07/16/19 01:04 57 14 40 07/16/19 01:00 60 14 100/58 (72) 100 07/16/19 00:00 64 14 100/59 (73) 100 07/16/19 00:00 66 07/16/19 00:00 Mechanical Ventilator 07/16/19 00:00 40 07/15/19 23:17 74 15 40 07/15/19 23:00 74 14 104/59 (74) 100 07/15/19 22:00 71 14 89/69 (76) 100 07/15/19 21:05 75 15 40 07/15/19 21:00 72 14 110/50 (70) 100 07/15/19 20:00 98.4 72 14 111/50 (70) 100 07/15/19 20:00 72 07/15/19 20:00 Mechanical Ventilator 07/15/19 19:00 70 14 128/56 (80) 100 07/15/19 18:55 65 15 40 07/15/19 18:00 63 14 113/53 (73) 100 07/15/19 17:00 65 15 113/60 (77) 100 07/15/19 16:55 63 15 40 07/15/19 16:02 65 15 40 07/15/19 16:00 65 07/15/19 16:00 97.8 63 15 104/50 (68) 98 07/15/19 16:00 Mechanical Ventilator 07/15/19 16:00 40 Status: sedated Condition: improving HEENT: atraumatic Lungs: rhonchi Heart: HR/BP stable Abdomen: soft, non-tender Extremities: no C/C/E Critical Care - Subjective ROS Limited/Unobtainable: Yes Interval Events: SBT today with PS 8, still acidotic, mildly. Coarse ronchi. No fevers. FI02: 40 Vent Support Breath Rate: 14 Vent Support Mode: AC Vent Tidal Volume: 500 Sputum Amount: Scant PEEP: 5.0 PIP: 31 Tube Feeding Amount: 40 I&O: Intake and Output 07/15/19 07/16/19 19:00 07:00 Intake Total 1075 ml 930 ml Output Total 900 ml 780 ml Balance 175 ml 150 ml Intake Free Water 300 ml 100 ml IV Total 55 ml 110 ml Tube Feeding 720 ml 720 ml Output Urine Total 900 ml 780 ml # Bowel Movements 4 1 ET-Tube: 8.0 ET Position: 21 Walker Bonilla MD Jul 16, 2019 15:31
[2019-07-16] MEDS ORDERED: NS 275ml ONE (16:15)
[2019-07-16] MEDS ORDERED: NS Irrig 1000ml ONE (16:15)
--- NOTE | 2019-07-16 19:21 | NUR ---
HAND-OFF: Report given to EMMA Velázquez.
--- NOTE | 2019-07-16 19:30 | NUR ---
NURSE NOTES: Received patient and report from EMMA Grove. Pt's awake, alert, non verbal, Orally intubated ETT 8, 21LL, AC 14 VT 500 FIO2 40% PEEP 5. On Jevity 1.2 at 60ml/hr and no residual at this time. NGT placement intact in left nare. Right finger gauge 24 peripheral line clamped, intact. Left UA PICC noted, intact, no redness noted. Patient turned and repositioned. Suprapubic cath draining cloudy straw urine noted. Suctioned as tolerated, HOB elevated to prevent aspiration.Call light within easy reach, will continue to monitor
--- NOTE | 2019-07-16 19:45 | Infectious Diseases Prog Note ---
Assessment/Plan Problems: (1) Pneumonia of both lower lobes Assessment & Plan: possible aspiration related S/P intubation and bronchoscopy with BAL . with improvement in her oxygen level , responded to meropenem coverage , sputum culture grew normal respiratory sunny . will treat with meropenem for two weeks total . aspiration precaution, monitor CXR as per pulmonary (2) Catheter-associated urinary tract infection Assessment & Plan: with MDR pseudomonas aeruginosa and Enterococcus Faecalis vancomycin resistant , will add zyvox and continue meropenem for total of two weeks , continue local catheter care, recommend to change the suprapubic catheter if not done yet (3) Sepsis Assessment & Plan: ruled out with negative blood culture x 2, already on wide spectrum antibiotics for pneumonia and CAUTI coverage (4) Decubitus skin ulcer Assessment & Plan: of the sacrum, continue off loading and local wound care as per hospital protocol (5) Respiratory failure with hypoxia Assessment & Plan: due to the above, with CO2 retention S/P intubation on mechanical ventilation , monitor ABG and CXR , pulmonary is following (6) Spina bifida Subjective ROS Limited/Unobtainable: Yes Allergies: Coded Allergies: PENICILLIN G (Verified Allergy, Unknown, 12/02/18) Tolerates cabapenem, cephalosporin PENICILLINS (Unverified Allergy, Unknown, 12/02/18) Subjective she was resting in bed comfortable still intubated on mechanical ventilation and failed weaning trials today again , awake and responsive . no fever or chills today , has mild cough no phlegm . no diarrhea . mild oral thrush Objective Vital Signs Last 24 Hour Vital Signs Date Time Temp Pulse Resp B/P (MAP) Pulse Ox O2 Delivery O2 Flow Rate FiO2 07/16/19 18:00 85 16 116/65 (82) 96 07/16/19 18:00 85 15 115/65 (82) 100 07/16/19 17:11 62 15 40 07/16/19 17:00 60 15 105/56 (72) 100 07/16/19 16:00 99.4 67 18 102/54 (70) 100 07/16/19 16:00 40 07/16/19 16:00 Mechanical Ventilator 07/16/19 15:40 62 07/16/19 15:00 75 17 99/57 (71) 100 07/16/19 14:40 81 14 40 07/16/19 14:00 101 21 131/66 (87) 97 07/16/19 13:00 105 20 128/83 (98) 97 07/16/19 12:38 107 26 40 07/16/19 12:00 98 07/16/19 12:00 Mechanical Ventilator 07/16/19 12:00 97.1 102 18 130/64 (86) 96 07/16/19 12:00 40 07/16/19 11:05 91 19 40 07/16/19 11:00 98 19 138/70 (92) 99 07/16/19 10:00 71 17 120/90 (100) 99 07/16/19 09:00 64 16 108/55 (72) 100 07/16/19 09:00 65 20 40 07/16/19 08:00 98.8 65 15 104/85 (91) 99 07/16/19 08:00 72 07/16/19 08:00 40 07/16/19 08:00 Mechanical Ventilator 07/16/19 07:26 61 20 40 07/16/19 07:00 71 14 120/58 (78) 100 07/16/19 06:00 70 14 100/57 (71) 100 07/16/19 05:05 74 15 40 07/16/19 05:00 75 14 110/57 (74) 100 07/16/19 04:00 68 07/16/19 04:00 Mechanical Ventilator 07/16/19 04:00 68 14 115/58 (77) 100 07/16/19 04:00 40 07/16/19 03:06 62 14 40 07/16/19 03:00 98.2 69 14 102/43 (62) 100 07/16/19 02:00 59 14 110/57 (74) 100 07/16/19 01:04 57 14 40 07/16/19 01:00 60 14 100/58 (72) 100 07/16/19 00:00 64 14 100/59 (73) 100 07/16/19 00:00 66 07/16/19 00:00 Mechanical Ventilator 07/16/19 00:00 40 07/15/19 23:17 74 15 40 07/15/19 23:00 74 14 104/59 (74) 100 07/15/19 22:00 71 14 89/69 (76) 100 07/15/19 21:05 75 15 40 07/15/19 21:00 72 14 110/50 (70) 100 07/15/19 20:00 98.4 72 14 111/50 (70) 100 07/15/19 20:00 72 07/15/19 20:00 Mechanical Ventilator Height (Feet): 4 Height (Inches): 10.00 Weight (Pounds): 145 General Appearance: WD/WN, no acute distress HEENT: normocephalic, atraumatic, anicteric, mucous membranes moist, PERRL, other - ET tube in place Respiratory/Chest: no respiratory distress, no accessory muscle use, decreased breath sounds, crackles/rales Cardiovascular: normal peripheral pulses, normal rate, regular rhythm, no gallop/murmur, no JVD Abdomen: normal bowel sounds, soft, non tender, no organomegaly, non distended , no mass, no scars Genitourinary: normal external genitalia, other - suprapubic catheter in place Extremities: no cyanosis, no clubbing Skin: no rash, no lesions, ulcers Neurologic/Psychiatric: alert, responsive Lymphatic: no neck adenopathy, no groin adenopathy Musculoskeletal: normal muscle bulk, no effusion Laboratory Tests Test 07/16/19 04:00 07/16/19 12:29 White Blood Count 11.7 K/UL (4.8-10.8) H Red Blood Count 4.33 M/UL (4.20-5.40) Hemoglobin 8.9 G/DL (12.0-16.0) L Hematocrit 29.6 % (37.0-47.0) L Mean Corpuscular Volume 68 FL (80-99) L Mean Corpuscular Hemoglobin 20.7 PG (27.0-31.0) L Mean Corpuscular Hemoglobin Concent 30.2 G/DL (32.0-36.0) L Red Cell Distribution Width 18.2 % (11.6-14.8) H Platelet Count 269 K/UL (150-450) Mean Platelet Volume 5.6 FL (6.5-10.1) L Neutrophils (%) (Auto) 75.8 % (45.0-75.0) H Lymphocytes (%) (Auto) 15.3 % (20.0-45.0) L Monocytes (%) (Auto) 5.8 % (1.0-10.0) Eosinophils (%) (Auto) 2.7 % (0.0-3.0) Basophils (%) (Auto) 0.4 % (0.0-2.0) Sodium Level 139 MMOL/L (136-145) Potassium Level 3.9 MMOL/L (3.5-5.1) Chloride Level 105 MMOL/L (98-107) Carbon Dioxide Level 29 MMOL/L (21-32) Anion Gap 5 mmol/L (5-15) Blood Urea Nitrogen 12 mg/dL (7-18) Creatinine 0.4 MG/DL (0.55-1.30) L Estimat Glomerular Filtration Rate > 60 mL/min (>60) Glucose Level 153 MG/DL (74-106) H Calcium Level 7.9 MG/DL (8.5-10.1) L Total Bilirubin 0.2 MG/DL (0.2-1.0) Aspartate Amino Transf (AST/SGOT) 9 U/L (15-37) L Alanine Aminotransferase (ALT/SGPT) 14 U/L (12-78) Alkaline Phosphatase 70 U/L (46-116) Total Protein 7.1 G/DL (6.4-8.2) Albumin 2.3 G/DL (3.4-5.0) L Globulin 4.8 g/dL Albumin/Globulin Ratio 0.5 (1.0-2.7) L Arterial Blood pH 7.331 (7.350-7.450) Arterial Blood Partial Pressure CO2 50.6 mmHg (35.0-45.0) H Arterial Blood Partial Pressure O2 65.5 mmHg (75.0-100.0) L Arterial Blood HCO3 26.1 mmol/L (22.0-26.0) H Arterial Blood Oxygen Saturation 89.8 % (95-100) *L Arterial Blood Base Excess -0.2 (-2-2) Gerard Test Positive Current Medications Medications (Trade) Dose Ordered Sig/Sandeep Route PRN Reason Start Time Stop Time Status Last Admin Dose Admin Acetaminophen (Tylenol) 650 mg Q6H PRN ORAL Mild Pain/Temp > 100.5 07/12/19 12:30 08/11/19 12:29 07/14/19 08:29 Albuterol/ Ipratropium (Albuterol/ Ipratropium) 3 ml Q4HRT PRN HHN Shortness of Breath 07/12/19 15:00 07/17/19 03:44 Albuterol/ Ipratropium (Albuterol/ Ipratropium) 3 ml Q6HRT HHN 07/16/19 19:00 07/21/19 18:59 Apixaban (Eliquis) 5 mg BID ORAL 07/12/19 18:00 08/11/19 08:59 07/16/19 17:36 Chlorhexidine Gluconate (Debora-Hex 2%) 1 applic DAILY@2000 TOPIC 07/14/19 20:00 08/13/19 19:59 07/15/19 21:32 Meropenem 1 gm/ Sodium Chloride 55 ml @ 110 mls/hr Q8HR IVPB 07/13/19 15:00 07/18/19 14:59 07/16/19 13:53 Nystatin (Nystatin) 5 ml QID ORAL 07/13/19 09:00 07/20/19 08:59 07/16/19 17:37 Pantoprazole (Protonix) 40 mg DAILY ORAL 07/13/19 09:00 08/11/19 08:59 07/16/19 11:07 Sennosides (Senokot) 8.6 mg BID ORAL 07/12/19 18:00 08/11/19 08:59 07/16/19 17:36 Gigi Sanabria M.D. Jul 16, 2019 19:45
[2019-07-16] MEDS: Albuterol/Ipratropium 3ml neb HHN SCH (20:02)
[2019-07-16] MEDS: Dyna-Hex 2% Top Sol 2oz TOPIC SCH (21:05)
--- NOTE | 2019-07-16 22:00 | NUR ---
NURSE NOTES: Pt's resting in in no acute distress. VS stable. Will continue to monitor.
[2019-07-17] VITALS (24 sets, daily range): BP systolic 100–142; BP diastolic 50–79
--- NOTE | 2019-07-17 | NUR ---
NURSE NOTES: Pt's resting in bed, in no acute distress. VS stable. Will continue to monitor.
[2019-07-17] MEDS: Albuterol/Ipratropium 3ml neb HHN SCH ×4 (01:15→19:36)
--- NOTE | 2019-07-17 02:00 | NUR ---
NURSE NOTES: Pt's resting in bed, eyes closed, in no acute distress. VS stable. Will continue to monitor.
--- NOTE | 2019-07-17 04:00 | NUR ---
NURSE NOTES: Pt's resting in bed, eyes closed, in no acute distress. VS stable. Will continue to monitor.
[2019-07-17 04:42] LABS: BASOPHILS % (AUTO) 0.5 % (0.0-2.0); EOSINOPHILS % (AUTO) 2.5 % (0.0-3.0); HEMATOCRIT 27.6 % (37.0-47.0); HEMOGLOBIN 8.6 G/DL (12.0-16.0); MEAN CORPUSCULAR VOLUME 67 FL (80-99); MONOCYTES % (AUTO) 5.5 % (1.0-10.0); NEUTROPHILS % (AUTO) 77.5 % (45.0-75.0); PLATELET COUNT 287 K/UL (150-450); RED CELL DISTRIBUTION WIDTH 17.7 % (11.6-14.8); WHITE BLOOD COUNT 11.7 K/UL (4.8-10.8)
[2019-07-17 05:10] LABS: ALANINE AMINOTRANSFERASE 11 U/L (12-78); ALBUMIN 2.4 G/DL (3.4-5.0); ALBUMIN/GLOBULIN RATIO 0.5 (1.0-2.7); ALKALINE PHOSPHATASE 68 U/L (46-116); ANION GAP 6 mmol/L (5-15); ASPARTATE AMINO TRANSFERASE 8 U/L (15-37); BILIRUBIN,TOTAL 0.2 MG/DL (0.2-1.0); BLOOD UREA NITROGEN 16 mg/dL (7-18); CALCIUM 8.2 MG/DL (8.5-10.1); CARBON DIOXIDE 29 MMOL/L (21-32); CHLORIDE 104 MMOL/L (98-107); CREATININE 0.3 MG/DL (0.55-1.30); POTASSIUM 3.6 MMOL/L (3.5-5.1); SODIUM 138 MMOL/L (136-145)
--- NOTE | 2019-07-17 06:00 | NUR ---
NURSE NOTES: Pt's resting in bed, eyes closed, in no acute distress. VS stable. Will continue to monitor.
[2019-07-17] MEDS: Meropenem 1 GM in NS 55 ML IVPB SCH ×3 (06:25→21:01)
--- NOTE | 2019-07-17 07:00 | NUR ---
RESPIRATORY NOTES: Received Patient on Vent settings ACVC 500, RR 14, FIO2 40%, PEEP +5. Patient intubated with a 8.0 ETT with a lip line of 21cm, secured with anchorfast. Suctioned small amount of white/ quiroz secretions through ETT. Patient awake and alert. Vent plugged into red outlet. Alarms are on and audible. Will continue to monitor throughout the day.
--- NOTE | 2019-07-17 07:30 | NUR ---
HAND-OFF: Report given to EMMA Aguilera.
--- NOTE | 2019-07-17 07:39 | NUR ---
RESPIRATORY NOTES: Attempted to wean patient however patient failed weaning trail. Placed on PS +8 PEEP +5 FIO2 40%. Immediately spontaneous tidal volumes dropped to <100mL and saturations dropped from 100% to 93%. Patient became agitated. Placed back onto ACVC settings. RN aware.
--- NOTE | 2019-07-17 08:00 | NUR ---
NURSE NOTES: Received change of shift report from Eber RN. Pt is awake, alert, orally intubated, oriented to name, nods head to yes/no questions. ETT 8.0 at 21cm right lipline with vent settings AC14, VT 500, Peep 5.0, FIO2 40% at 100% O2Sat. Bilateral inspiratory/expiratory rhonchi/rales is heard on auscultation. NSR on security monitor, heart rate fluctuating in the 70's with weak peripheral pulses on palpation. Pt has left upper arm double lumen PICC, currently TKO. Temp 98.5F axillary. NGT with feeding Jevity 1.2 infusing at goal rate of 60ml/hour. Pt is tolerating NGT feed well with zero residual. Abdomen is large, round, soft, nontender to touch with hypoactive bowel sounds. Pt has suprapubic catheter, draining mildly cloudy/yellow urine. Skin has sacral DTI, right hip and left FA skin tears, covered with optifoam dressings, dry/intact. Pt is on pressure releasing mattress with bilateral off heels. HOB at 30degrees, bed locked, three side rails up, and call light is within reach. Will continue with plan of care.
--- NOTE | 2019-07-17 09:02 | NUR ---
RD ASSESSMENT & RECOMMENDATIONS SEE CARE ACTIVITY FOR COMPLETE ASSESSMENT DAILY ESTIMATED NEEDS: Needs based on wound, critical care/ 47.6kg abw 25-30 kcals/kg 9644-8943 total kcals 1.25-2 g protein/kg 60-95 g total protein 25-30 mL/kg 8574-8427 total fluid mLs NUTRITION DIAGNOSIS: * Increased kcal/pro needs r/t wound healing as evidenced by h/o spina bifida, adm w/ full thickness wound @ sacrum and resolving pressure injury @ R-ischium. * Swallowing difficulty R/T respiratory status as evidenced by orally intubated, on NGT feeding. CURRENT TF:Jevity 1.2 @ 60ml/hr x 24 hrs PO DIET RECOMMENDATIONS: RN ONCOLOGY RESEARCH eval post extubation ENTERAL NUTRITION RECOMMENDATIONS: Vital AF 1.2 @ 45ml/hr x24 hrs to provide 1080ml, 1296kcal, 81g prot, 876ml free water - Rec TF change to Vital AF for GLYCEMIC CONTROL and CRITICAL CARE - Start Vital AF @25ml/hr for 6 hrs, advance as tolerated 10ml/hr q4-6 hrs to goal. - HOB over 30 degrees/ water flush of 140ml q 6hrs - TF at goal meets 100% est kcal and pro needs: ADDITIONAL RECOMMENDATIONS: 1) Wound care: add GREGG in 4oz H2O BID via NGT Add VIT C 500mg daily 2) Maintain calibrated bed scale wts 3) NISS for BG control on TF . . .
--- NOTE | 2019-07-17 09:15 | NUR ---
RESPIRATORY NOTES: Weaning trail attempted for a second time. Patient passed. Weaning started at 0915. Placed patient on PS +8 PEEP +5 fio2 40%. Will continue to closely monitor patient. RN Ale aware. RSBI 55, NIF -20, RR 22, VT >450mL
--- NOTE | 2019-07-17 09:35 | NUR ---
RADIOLOGY DEPT., CHEST X-RAY DONE.-P.DYE
[2019-07-17] MEDS: Sennosides 8.6mg tab ORAL SCH ×2 (09:56→18:12)
[2019-07-17] MEDS: Eliquis 5mg tablet ORAL SCH ×2 (09:56→18:12)
[2019-07-17] MEDS: Nystatin Susp 500,000 units/5ml ORAL SCH ×4 (09:56→21:09)
--- NOTE | 2019-07-17 10:00 | NUR ---
NURSE NOTES: AM meds were administered. NGT feed is currently on hold, while pt is being weaned off AC vent settings, currently on PS 8, Peep 5, FIO2 40%, started at 0915 by RT at bedside. Current O2Sat is 96%, RR 20. Pt was repositioned, HOB at high greer's now. VS remain stable. No s/s of pain/discomfort is noted.
--- NOTE | 2019-07-17 11:44 | NUR ---
RESPIRATORY NOTES: Weaning successful. ABG drawn on PS +8 PEEP +5 FIO2 40%. RN jamie aware. Placed patient back onto previous ACVC settings at 1142.
--- NOTE | 2019-07-17 12:30 | NUR ---
NURSE NOTES: Pt was weaned today for 2.5 hours and ABGs were drawn while pt was still on CPAP (per Dr Bonilla's order). Chest xray was done this morning, results still pending. Will contact Dr Hernández with results. Pt is currently resting with stable VS while on AC vent settings; remains afebrile. Pt was seen by Dr Neri at beside, no new orders were received at this time.
--- NOTE | 2019-07-17 13:26 | Diagnostic Imaging Report ---
Indication: Dyspnea Technique: XRAY Chest 1v Comparison: 07/13/2019 Findings: Heart size and mediastinal contours stable. Endotracheal tube, enteric tube and left arm PICC line stable in position. Spinal fixation hardware is again noted. Likely [employer] shunt catheter unchanged. There is worsening of aeration with increasing airspace opacification in the left lower lung with volume loss. There is increasing airspace disease in the right lung is well. Osseous structures stable. Impression: Worsening of aeration with increasing dense airspace consolidation in the left lower lung with volume loss which may be related to atelectasis and/or pneumonia. Support lines/tubes unchanged in position.
--- NOTE | 2019-07-17 13:58 | NUR ---
HEMATOLOGY TECHNOLOGISTOUTPATIENT PHYSICAL THERAPIST ASSISTANT SI; RESP FAILURE ETT/VENT SUPPORT,PNA T. 98.5 HR 83 RR 19 B/P 124/65 AC 14 TV 500 FIO2 40% PEEP 5 WBC 11.7 BNP 354 PH 7.36 PCO2 48.3 PO2 63.7 HCO3 27.1 O2 SAT 98.4 IS: ZYVOX IV MEROPENEM IV ELIQUISE ICU STATUS
--- NOTE | 2019-07-17 14:00 | NUR ---
NURSE NOTES: Pt was seen by Dr Hernández at bedside. Per MD, ok to maintain pt on CPAP as she is able to tolerate, however to switch back to AC during HS. Per MD no plan for extubation today; will repeat weaning again tomorrow. Pt is resting currently with stable VS. Pt was noted to have brown/hard/stool which was manually decompacted. Pt was cleaned and repositioned.
--- NOTE | 2019-07-17 14:54 | Pulmonolgy Critical Care Note ---
Critical Care - Asmt/Plan Problems: (1) Pneumonia of both lower lobes Assessment & Plan: VDRF, intubated 07/12/19, S/P FOB 07/12/19 (2) Catheter-associated urinary tract infection Assessment & Plan: PsA and proteus (3) Respiratory failure with hypoxia Assessment & Plan: Acute on chronic hypercapnic and hypoxemic RF 2/2 PNA VDRF as able Duplex neg, minimally elevated d-dimer, unlikely VTE and already on a NOAC (4) HCAP (healthcare-associated pneumonia) (5) Paraplegia (6) Sepsis (7) Suprapubic catheter (8) Restrictive lung disease due to kyphoscoliosis (9) Decubitus skin ulcer (10) Spina bifida Respiratory: monitor respiratory rate, weaning trial - daily SBT, other - HHN's , add Mucomyst Cardiac: continue to monitor HR/BP Renal: check electrolytes Infectious Disease: continue antibiotics - OTILIA/ZYVOX Gastrointestinal: continue feedings/current rate - hold in am for SBT Endocrine: monitor blood sugar Hematologic: monitor H/H Neurologic: keep patient comfortable Prophylaxis: Protonix, other - Eliquis Disposition: keep in ICU Time Spent (Minutes): other - 35 Notes Reviewed: assistant oceanographer, ID Discussed with: nurses, consultants, other - FC continue to discuss C Critical Care - Objective Last 24 Hour Vital Signs Date Time Temp Pulse Resp B/P (MAP) Pulse Ox O2 Delivery O2 Flow Rate FiO2 07/17/19 13:30 71 14 98 Mechanical Ventilator 40 07/17/19 13:28 77 14 100 Mechanical Ventilator 40 75 14 40 07/17/19 12:00 Mechanical Ventilator 07/17/19 12:00 40 07/17/19 11:42 89 19 40 07/17/19 11:29 95 22 40 40 07/17/19 11:00 95 21 142/70 (94) 100 07/17/19 10:00 93 20 142/70 (94) 100 07/17/19 09:15 89 24 40 40 07/17/19 09:00 83 19 127/66 (86) 100 07/17/19 08:00 98.5 90 20 124/65 (84) 100 07/17/19 08:00 82 07/17/19 08:00 Mechanical Ventilator 07/17/19 08:00 40 07/17/19 07:34 77 21 97 Mechanical Ventilator 40 74 15 40 07/17/19 07:00 67 16 119/58 (78) 100 07/17/19 06:00 66 16 125/57 (79) 100 07/17/19 05:21 75 17 40 07/17/19 05:00 68 16 110/56 (74) 100 07/17/19 04:00 Mechanical Ventilator 07/17/19 04:00 63 07/17/19 04:00 68 16 103/51 (68) 100 07/17/19 04:00 40 07/17/19 03:16 70 14 40 07/17/19 03:00 70 16 100/58 (72) 100 07/17/19 02:00 68 16 108/60 (76) 100 07/17/19 01:15 61 14 100 Mechanical Ventilator 40 60 14 40 07/17/19 01:00 72 16 110/60 (77) 100 07/17/19 00:00 74 07/17/19 00:00 72 16 107/53 (71) 100 07/17/19 00:00 Mechanical Ventilator 07/16/19 23:19 71 15 40 07/16/19 23:00 75 16 102/73 (83) 100 07/16/19 22:00 75 16 110/60 (77) 100 07/16/19 21:28 85 17 40 07/16/19 21:00 77 16 118/58 (78) 100 07/16/19 20:02 87 18 100 Mechanical Ventilator 40 92 21 40 07/16/19 20:00 82 16 113/73 (86) 96 07/16/19 20:00 Mechanical Ventilator 07/16/19 20:00 40 07/16/19 20:00 70 07/16/19 19:00 80 16 110/68 (82) 96 07/16/19 18:00 85 16 116/65 (82) 96 07/16/19 18:00 85 15 115/65 (82) 100 07/16/19 17:11 62 15 40 07/16/19 17:00 60 15 105/56 (72) 100 07/16/19 16:00 99.4 67 18 102/54 (70) 100 07/16/19 16:00 40 07/16/19 16:00 Mechanical Ventilator 07/16/19 15:40 62 07/16/19 15:00 75 17 99/57 (71) 100 07/16/19 14:40 81 14 40 Status: awake - on vent Condition: critical HEENT: atraumatic Neck: full ROM Lungs: rhonchi Heart: HR/BP stable Abdomen: soft, non-tender, active bowel sounds, other - SPC Extremities: no C/C/E Decubiti: location - sac, R hip, L FA, stage - DTI Blood Sugars: BS controlled Critical Care - Subjective ROS Limited/Unobtainable: Yes ICU Day: 6 Intubation Day: 6 Interval Events: Anabel SBT 7.36/48/63/ but placed back on AC Awake and able to follow some commands Condition: stable IV Access: PICC - LUE EKG Rhythm: Sinus Rhythm FI02: 40 Vent Support Breath Rate: 14 Vent Support Mode: AC Vent Tidal Volume: 500 Sputum Amount: Moderate PEEP: 5.0 PIP: 34 Secretions: moderate thick quiroz Fluids: SLIV Drips: N/A Tube Feeding Amount: 40 I&O: Intake and Output 07/16/19 07/17/19 19:00 07:00 Intake Total 595 ml 890 ml Output Total 1590 ml 530 ml Balance -995 ml 360 ml Intake Free Water 200 ml IV Total 55 ml 410 ml Tube Feeding 320 ml 480 ml Other 20 ml Output Urine Total 1590 ml 530 ml # Bowel Movements 1 Subjective: ANDREWS CXR: B inf ET-Tube: 8.0 ET Position: 21 Labs: Laboratory Tests Test 07/17/19 04:00 07/17/19 11:25 White Blood Count 11.7 K/UL (4.8-10.8) H Red Blood Count 4.10 M/UL (4.20-5.40) L Hemoglobin 8.6 G/DL (12.0-16.0) L Hematocrit 27.6 % (37.0-47.0) L Mean Corpuscular Volume 67 FL (80-99) L Mean Corpuscular Hemoglobin 21.0 PG (27.0-31.0) L Mean Corpuscular Hemoglobin Concent 31.2 G/DL (32.0-36.0) L Red Cell Distribution Width 17.7 % (11.6-14.8) H Platelet Count 287 K/UL (150-450) Mean Platelet Volume 6.0 FL (6.5-10.1) L Neutrophils (%) (Auto) 77.5 % (45.0-75.0) H Lymphocytes (%) (Auto) 14.0 % (20.0-45.0) L Monocytes (%) (Auto) 5.5 % (1.0-10.0) Eosinophils (%) (Auto) 2.5 % (0.0-3.0) Basophils (%) (Auto) 0.5 % (0.0-2.0) Sodium Level 138 MMOL/L (136-145) Potassium Level 3.6 MMOL/L (3.5-5.1) Chloride Level 104 MMOL/L (98-107) Carbon Dioxide Level 29 MMOL/L (21-32) Anion Gap 6 mmol/L (5-15) Blood Urea Nitrogen 16 mg/dL (7-18) Creatinine 0.3 MG/DL (0.55-1.30) L Estimat Glomerular Filtration Rate > 60 mL/min (>60) Glucose Level 142 MG/DL (74-106) H Calcium Level 8.2 MG/DL (8.5-10.1) L Total Bilirubin 0.2 MG/DL (0.2-1.0) Aspartate Amino Transf (AST/SGOT) 8 U/L (15-37) L Alanine Aminotransferase (ALT/SGPT) 11 U/L (12-78) L Alkaline Phosphatase 68 U/L (46-116) Pro-B-Type Natriuretic Peptide 354 pg/mL (0-125) H Total Protein 7.2 G/DL (6.4-8.2) Albumin 2.4 G/DL (3.4-5.0) L Globulin 4.8 g/dL Albumin/Globulin Ratio 0.5 (1.0-2.7) L Arterial Blood pH 7.367 (7.350-7.450) Arterial Blood Partial Pressure CO2 48.3 mmHg (35.0-45.0) H Arterial Blood Partial Pressure O2 63.7 mmHg (75.0-100.0) L Arterial Blood HCO3 27.1 mmol/L (22.0-26.0) H Arterial Blood Oxygen Saturation 90.4 % (95-100) L Arterial Blood Base Excess 1.3 (-2-2) Gerard Test Positive Regino Pearson MD Jul 17, 2019 14:54
--- NOTE | 2019-07-17 14:56 | NUR ---
RESPIRATORY NOTES: Started SBT at [address] Pearson. PS +8 PEEP +5 FIO2 40%. Will continue to closely monitor.
[2019-07-17] MEDS ORDERED: Albuterol/Ipratropium 3ml neb HHN PRN (15:00)
--- NOTE | 2019-07-17 15:00 | Infectious Diseases Prog Note ---
Assessment/Plan Problems: (1) Pneumonia of both lower lobes Assessment & Plan: possible aspiration related S/P intubation and bronchoscopy with BAL . with improvement in her oxygen level , responded to meropenem coverage , sputum culture grew normal respiratory sunny . will treat with meropenem for two weeks total . aspiration precaution, monitor CXR as per pulmonary (2) Catheter-associated urinary tract infection Assessment & Plan: with MDR pseudomonas aeruginosa , ESBL producing E coli and Enterococcus Faecalis vancomycin resistant , continue zyvox and meropenem for total of two weeks , continue local catheter care, recommend to change the suprapubic catheter if not done yet. D/W nurse (3) Sepsis Assessment & Plan: ruled out with negative blood culture x 2, already on wide spectrum antibiotics for pneumonia and CAUTI coverage (4) Decubitus skin ulcer Assessment & Plan: of the sacrum, continue off loading and local wound care as per hospital protocol (5) Respiratory failure with hypoxia Assessment & Plan: due to the above, with CO2 retention S/P intubation on mechanical ventilation , on weaning trials , monitor ABG and CXR , pulmonary is following (6) Spina bifida Subjective ROS Limited/Unobtainable: Yes Allergies: Coded Allergies: PENICILLIN G (Verified Allergy, Unknown, 12/02/18) Tolerates cabapenem, cephalosporin PENICILLINS (Unverified Allergy, Unknown, 12/02/18) Subjective she was comfortable lying in bed, still intubated on mechanical ventilation , awake and responsive . no fever or chills today , has mild cough no phlegm . no diarrhea . mild oral thrush Objective Vital Signs Last 24 Hour Vital Signs Date Time Temp Pulse Resp B/P (MAP) Pulse Ox O2 Delivery O2 Flow Rate FiO2 07/17/19 14:54 93 23 40 40 07/17/19 13:30 71 14 98 Mechanical Ventilator 40 07/17/19 13:28 77 14 100 Mechanical Ventilator 40 75 14 40 07/17/19 12:00 Mechanical Ventilator 07/17/19 12:00 40 07/17/19 11:42 89 19 40 07/17/19 11:29 95 22 40 40 07/17/19 11:00 95 21 142/70 (94) 100 07/17/19 10:00 93 20 142/70 (94) 100 07/17/19 09:15 89 24 40 40 07/17/19 09:00 83 19 127/66 (86) 100 07/17/19 08:00 98.5 90 20 124/65 (84) 100 07/17/19 08:00 82 07/17/19 08:00 Mechanical Ventilator 07/17/19 08:00 40 07/17/19 07:34 77 21 97 Mechanical Ventilator 40 74 15 40 07/17/19 07:00 67 16 119/58 (78) 100 07/17/19 06:00 66 16 125/57 (79) 100 07/17/19 05:21 75 17 40 07/17/19 05:00 68 16 110/56 (74) 100 07/17/19 04:00 Mechanical Ventilator 07/17/19 04:00 63 07/17/19 04:00 68 16 103/51 (68) 100 07/17/19 04:00 40 07/17/19 03:16 70 14 40 07/17/19 03:00 70 16 100/58 (72) 100 07/17/19 02:00 68 16 108/60 (76) 100 07/17/19 01:15 61 14 100 Mechanical Ventilator 40 60 14 40 07/17/19 01:00 72 16 110/60 (77) 100 07/17/19 00:00 74 07/17/19 00:00 72 16 107/53 (71) 100 07/17/19 00:00 Mechanical Ventilator 07/16/19 23:19 71 15 40 07/16/19 23:00 75 16 102/73 (83) 100 07/16/19 22:00 75 16 110/60 (77) 100 07/16/19 21:28 85 17 40 07/16/19 21:00 77 16 118/58 (78) 100 07/16/19 20:02 87 18 100 Mechanical Ventilator 40 92 21 40 07/16/19 20:00 82 16 113/73 (86) 96 07/16/19 20:00 Mechanical Ventilator 07/16/19 20:00 40 07/16/19 20:00 70 07/16/19 19:00 80 16 110/68 (82) 96 07/16/19 18:00 85 16 116/65 (82) 96 07/16/19 18:00 85 15 115/65 (82) 100 07/16/19 17:11 62 15 40 07/16/19 17:00 60 15 105/56 (72) 100 07/16/19 16:00 99.4 67 18 102/54 (70) 100 07/16/19 16:00 40 07/16/19 16:00 Mechanical Ventilator 07/16/19 15:40 62 07/16/19 15:00 75 17 99/57 (71) 100 Height (Feet): 4 Height (Inches): 10.00 Weight (Pounds): 145 General Appearance: WD/WN, no acute distress HEENT: normocephalic, atraumatic, anicteric, mucous membranes moist, PERRL, supple, no JVD Respiratory/Chest: chest wall non-tender, lungs clear, normal breath sounds, no respiratory distress, no accessory muscle use Cardiovascular: normal peripheral pulses, normal rate, regular rhythm, no gallop/murmur, no JVD Abdomen: normal bowel sounds, soft, non tender, no organomegaly, non distended , no mass, no scars Extremities: no cyanosis, no clubbing Skin: no rash, no lesions, no ulcers Neurologic/Psychiatric: alert, responsive Lymphatic: no neck adenopathy, no groin adenopathy Musculoskeletal: normal muscle bulk, no effusion Laboratory Tests Test 07/17/19 04:00 07/17/19 11:25 White Blood Count 11.7 K/UL (4.8-10.8) H Red Blood Count 4.10 M/UL (4.20-5.40) L Hemoglobin 8.6 G/DL (12.0-16.0) L Hematocrit 27.6 % (37.0-47.0) L Mean Corpuscular Volume 67 FL (80-99) L Mean Corpuscular Hemoglobin 21.0 PG (27.0-31.0) L Mean Corpuscular Hemoglobin Concent 31.2 G/DL (32.0-36.0) L Red Cell Distribution Width 17.7 % (11.6-14.8) H Platelet Count 287 K/UL (150-450) Mean Platelet Volume 6.0 FL (6.5-10.1) L Neutrophils (%) (Auto) 77.5 % (45.0-75.0) H Lymphocytes (%) (Auto) 14.0 % (20.0-45.0) L Monocytes (%) (Auto) 5.5 % (1.0-10.0) Eosinophils (%) (Auto) 2.5 % (0.0-3.0) Basophils (%) (Auto) 0.5 % (0.0-2.0) Sodium Level 138 MMOL/L (136-145) Potassium Level 3.6 MMOL/L (3.5-5.1) Chloride Level 104 MMOL/L (98-107) Carbon Dioxide Level 29 MMOL/L (21-32) Anion Gap 6 mmol/L (5-15) Blood Urea Nitrogen 16 mg/dL (7-18) Creatinine 0.3 MG/DL (0.55-1.30) L Estimat Glomerular Filtration Rate > 60 mL/min (>60) Glucose Level 142 MG/DL (74-106) H Calcium Level 8.2 MG/DL (8.5-10.1) L Total Bilirubin 0.2 MG/DL (0.2-1.0) Aspartate Amino Transf (AST/SGOT) 8 U/L (15-37) L Alanine Aminotransferase (ALT/SGPT) 11 U/L (12-78) L Alkaline Phosphatase 68 U/L (46-116) Pro-B-Type Natriuretic Peptide 354 pg/mL (0-125) H Total Protein 7.2 G/DL (6.4-8.2) Albumin 2.4 G/DL (3.4-5.0) L Globulin 4.8 g/dL Albumin/Globulin Ratio 0.5 (1.0-2.7) L Arterial Blood pH 7.367 (7.350-7.450) Arterial Blood Partial Pressure CO2 48.3 mmHg (35.0-45.0) H Arterial Blood Partial Pressure O2 63.7 mmHg (75.0-100.0) L Arterial Blood HCO3 27.1 mmol/L (22.0-26.0) H Arterial Blood Oxygen Saturation 90.4 % (95-100) L Arterial Blood Base Excess 1.3 (-2-2) Gerard Test Positive Current Medications Medications (Trade) Dose Ordered Sig/Sandeep Route PRN Reason Start Time Stop Time Status Last Admin Dose Admin Acetaminophen (Tylenol) 650 mg Q6H PRN ORAL Mild Pain/Temp > 100.5 07/12/19 12:30 08/11/19 12:29 07/14/19 08:29 Acetylcysteine (Mucomyst) 200 mg Q6HRT HHN 07/17/19 19:00 08/16/19 18:59 UNV Albuterol/ Ipratropium (Albuterol/ Ipratropium) 3 ml Q4H PRN HHN Shortness of Breath 07/17/19 15:00 07/22/19 14:59 UNV Albuterol/ Ipratropium (Albuterol/ Ipratropium) 3 ml Q6HRT HHN 07/16/19 19:00 07/21/19 18:59 07/17/19 13:31 Apixaban (Eliquis) 5 mg BID ORAL 07/12/19 18:00 08/11/19 08:59 07/17/19 09:56 Chlorhexidine Gluconate (Debora-Hex 2%) 1 applic DAILY@2000 TOPIC 07/14/19 20:00 08/13/19 19:59 07/16/19 21:05 Linezolid 300 ml @ 300 mls/hr Q12HR IVPB 07/16/19 21:00 07/23/19 20:59 07/17/19 09:57 Meropenem 1 gm/ Sodium Chloride 55 ml @ 110 mls/hr Q8HR IVPB 07/13/19 15:00 07/26/19 23:59 07/17/19 06:25 Nystatin (Nystatin) 5 ml QID ORAL 07/13/19 09:00 07/20/19 08:59 07/17/19 09:56 Pantoprazole (Protonix) 40 mg DAILY ORAL 07/13/19 09:00 08/11/19 08:59 07/17/19 09:56 Sennosides (Senokot) 8.6 mg BID ORAL 07/12/19 18:00 08/11/19 08:59 07/17/19 09:56 Gigi Sanabria M.D. Jul 17, 2019 15:00
--- NOTE | 2019-07-17 16:00 | NUR ---
NURSE NOTES: Pt is currently on CPAP with PS 8, Peep 5, FIO2 40% by Dr Hernández; currently tolerating well with O2Sat fluctuating from 96-99%. VS remain stable. Pt is afebrile. Per Dr Hernández ok to leave NGT feeding on now since no plan for extubation today. Pt was repositioned. Oral care was done.
[2019-07-17] MEDS ORDERED: NS 275ml ONE (17:44)
[2019-07-17] MEDS ORDERED: Tubing IV Secondary IV ONE (17:49)
--- NOTE | 2019-07-17 17:59 | NUR ---
RESPIRATORY NOTES: Placed Patient back on previous ACVC settings because of SOB at 1755.
--- NOTE | 2019-07-17 18:15 | NUR ---
NURSE NOTES: Pt was cleaned and repositioned. Oral care was done and pt suctioned. VS remain stable with no signs/symptoms of pain or discomfort noted. NGT feed-tube/bag was replaced, zero residual. Family is now at bedside.
--- NOTE | 2019-07-17 19:28 | NUR ---
HAND-OFF: Report given to Pasquale CARTER. Endorsed plan of care. VS remain stable. Family is at bedside.
--- NOTE | 2019-07-17 19:29 | NUR ---
NURSE NOTES: Received change of shift report from Ale CARTER. Pt is awake, alert, orally intubated, oriented to name, nods head to yes/no questions. ETT 8.0 at 21cm right lipline with vent settings AC14, VT 500, Peep 5.0, FIO2 40% at 100% O2Sat. NSR on acid conditioner, heart rate fluctuating in the 90. Weak peripheral pulses on palpation. Pt has left upper arm double lumen PICC, currently TKO. NGT with feeding Jevity 1.2 infusing at goal rate of 40ml/hour. Pt is tolerating NGT feed well with zero residual. Abdomen is large, round, soft, nontender to touch with hypoactive bowel sounds. Pt has suprapubic catheter, draining mildly cloudy/yellow urine. Skin has sacral DTI, right hip and left FA skin tears, covered with optifoam dressings, dry/intact. Pt is on pressure releasing mattress with bilateral off heels. HOB at 30degrees, bed locked, three side rails up, and call light is within reach. Will continue with plan of care.
[2019-07-17] MEDS: Acetylcysteine 20% Soln 4ml HHN SCH (19:36)
--- NOTE | 2019-07-17 20:00 | NUR ---
NURSE NOTES: Repositioned and oral care given. no signs of acute distress at this time, vitals have remained stable, afebrile at this time.
[2019-07-17] MEDS: Dyna-Hex 2% Top Sol 2oz TOPIC SCH (21:09)
--- NOTE | 2019-07-17 21:48 | General Progress Note ---
Assessment/Plan Status: stable Assessment/Plan: S, O: Intubated, awake, is following command, vent setting reviewed PHYSICAL EXAMINATION:HEAD AND NECK: intubated , Atraumatic, normocephalic. CHEST: Diffuse bronchial breathing sounds. No wheezing.HEART: S1, S2. Regular rate and rhythm. ABDOMEN: Obese, positive for suprapubic catheter.MUSCULOSKELETAL: The atrophy of the lower extremities, paraplegia are noted.NEUROLOGY: The patient is Intubated, limited eval LABORATORY AND DIAGNOSTIC DATA: Dated July 17 reviewed ASSESSMENT AND PLAN: 1. Sepsis - healthcare associated. 2. Pneumonia, healthcare associated. 3. UTI - healthcare associated. 4. Congenital abnormalities, spina bifida, paraplegic, wheelchair-bound. 5. On New oral anticoagulation 6. GI and DVT prophylaxis. PLAN OF CARE: Current Pulmonary and ID care S/P Bronch, pending cultures Notes from urology, ID Pulmonary reviewed Discussed the care with ID and Pulmonary Stable WBC counts, afebrile, failed second attempt for extubation , will continue additional attempts per pulmonary D/w Rn at bed side I spent 60 minutes in direct patient care. Subjective Allergies: Coded Allergies: PENICILLIN G (Verified Allergy, Unknown, 12/02/18) Tolerates cabapenem, cephalosporin PENICILLINS (Unverified Allergy, Unknown, 12/02/18) Objective Last 24 Hour Vital Signs Date Time Temp Pulse Resp B/P (MAP) Pulse Ox O2 Delivery O2 Flow Rate FiO2 07/17/19 21:00 85 16 102/53 (69) 98 07/17/19 20:33 98 17 40 07/17/19 20:00 Mechanical Ventilator 07/17/19 20:00 96 07/17/19 20:00 99.0 95 19 102/50 (67) 99 07/17/19 20:00 40 07/17/19 19:36 86 17 100 Mechanical Ventilator 40 85 14 40 07/17/19 19:00 92 22 125/60 (81) 97 07/17/19 18:00 90 22 40 07/17/19 18:00 102 22 118/76 (90) 97 07/17/19 17:22 94 22 40 40 07/17/19 17:00 97 22 116/56 (76) 96 07/17/19 16:00 Mechanical Ventilator 07/17/19 16:00 40 07/17/19 16:00 101 07/17/19 16:00 98.2 98 22 119/71 (87) 96 07/17/19 15:00 99 21 117/59 (78) 95 07/17/19 14:54 93 23 40 40 07/17/19 14:00 75 14 110/66 (81) 99 07/17/19 13:30 71 14 98 Mechanical Ventilator 40 07/17/19 13:28 77 14 100 Mechanical Ventilator 40 75 14 40 07/17/19 13:00 73 16 117/64 (81) 99 07/17/19 12:00 98.4 90 19 114/58 (76) 96 07/17/19 12:00 Mechanical Ventilator 07/17/19 12:00 40 07/17/19 12:00 85 07/17/19 11:42 89 19 40 07/17/19 11:29 95 22 40 40 07/17/19 11:00 95 21 142/70 (94) 100 07/17/19 10:00 93 20 142/70 (94) 100 07/17/19 09:15 89 24 40 40 07/17/19 09:00 83 19 127/66 (86) 100 07/17/19 08:00 98.5 90 20 124/65 (84) 100 07/17/19 08:00 82 07/17/19 08:00 Mechanical Ventilator 07/17/19 08:00 40 07/17/19 07:34 77 21 97 Mechanical Ventilator 40 74 15 40 07/17/19 07:00 67 16 119/58 (78) 100 07/17/19 06:00 66 16 125/57 (79) 100 07/17/19 05:21 75 17 40 07/17/19 05:00 68 16 110/56 (74) 100 07/17/19 04:00 Mechanical Ventilator 07/17/19 04:00 63 07/17/19 04:00 68 16 103/51 (68) 100 07/17/19 04:00 40 07/17/19 03:16 70 14 40 07/17/19 03:00 70 16 100/58 (72) 100 07/17/19 02:00 68 16 108/60 (76) 100 07/17/19 01:15 61 14 100 Mechanical Ventilator 40 60 14 40 07/17/19 01:00 72 16 110/60 (77) 100 07/17/19 00:00 74 07/17/19 00:00 72 16 107/53 (71) 100 07/17/19 00:00 Mechanical Ventilator 07/16/19 23:19 71 15 40 07/16/19 23:00 75 16 102/73 (83) 100 07/16/19 22:00 75 16 110/60 (77) 100 Intake and Output 07/16/19 07/17/19 19:00 07:00 Intake Total 595 ml 890 ml Output Total 1590 ml 530 ml Balance -995 ml 360 ml Intake Free Water 200 ml IV Total 55 ml 410 ml Tube Feeding 320 ml 480 ml Other 20 ml Output Urine Total 1590 ml 530 ml # Bowel Movements 1 Laboratory Tests 07/17/19 04:00: White Blood Count 11.7H, Red Blood Count 4.10L, Hemoglobin 8.6L, Hematocrit 27.6L, Mean Corpuscular Volume 67L, Mean Corpuscular Hemoglobin 21.0L, Mean Corpuscular Hemoglobin Concent 31.2L, Red Cell Distribution Width 17.7H, Platelet Count 287, Mean Platelet Volume 6.0L, Neutrophils (%) (Auto) 77.5H, Lymphocytes (%) (Auto) 14.0L, Monocytes (%) (Auto) 5.5, Eosinophils (%) (Auto) 2.5, Basophils (%) (Auto) 0.5, Sodium Level 138, Potassium Level 3.6, Chloride Level 104, Carbon Dioxide Level 29, Anion Gap 6, Blood Urea Nitrogen 16, Creatinine 0.3L, Estimat Glomerular Filtration Rate > 60, Glucose Level 142H, Calcium Level 8.2L, Total Bilirubin 0.2, Aspartate Amino Transf (AST/SGOT) 8L, Alanine Aminotransferase (ALT/SGPT) 11L, Alkaline Phosphatase 68, Pro-B-Type Natriuretic Peptide 354H, Total Protein 7.2, Albumin 2.4L, Globulin 4.8, Albumin /Globulin Ratio 0.5L 07/17/19 11:25: Arterial Blood pH 7.367, Arterial Blood Partial Pressure CO2 48.3H, Arterial Blood Partial Pressure O2 63.7L, Arterial Blood HCO3 27.1H, Arterial Blood Oxygen Saturation 90.4L, Arterial Blood Base Excess 1.3, Gerard Test Positive Height (Feet): 4 Height (Inches): 10.00 Weight (Pounds): 145 Denise Neri MD Jul 17, 2019 21:48
--- NOTE | 2019-07-17 22:00 | NUR ---
NURSE NOTES: Repositioned and adjusted pillows, no signs of acute distress at this time. Patient is awake and calm.
[2019-07-18] VITALS (24 sets, daily range): BP systolic 96–137; BP diastolic 46–73
--- NOTE | 2019-07-18 | NUR ---
NURSE NOTES: Repositioned and suctioned. Patient remains stable, is awake and able to nod head to simple questions, no signs of distress. Patient cooperative to plan of care. Vitals are stable, no fever.
[2019-07-18] MEDS: Acetylcysteine 20% Soln 4ml HHN SCH ×4 (00:01→19:16)
--- NOTE | 2019-07-18 02:00 | NUR ---
NURSE NOTES: Repositioned patient and given oral suction. No apparent distress noted. Vitals have remained stable, patient awake and alert. no acute changes
--- NOTE | 2019-07-18 04:00 | NUR ---
NURSE NOTES: Sponge bath given. Vitals continue to remain stable. Patient remains awake and alert. No acute events. Repositioned patient and adjusted pillows.
[2019-07-18] MEDS: Meropenem 1 GM in NS 55 ML IVPB SCH ×3 (05:15→21:10)
--- NOTE | 2019-07-18 06:00 | NUR ---
NURSE NOTES: epositioned patient and given oral suction. No apparent distress noted. Vitals have remained stable, patient awake and alert. no acute changes
--- NOTE | 2019-07-18 06:11 | NUR ---
RESPIRATORY NOTES: Received Patient on Vent settings ACVC 500, RR 14, FIO2 40%, PEEP +5. Patient intubated with a 8.0 ETT with a lip line of 21cm, secured with anchorfast. Suctioned moderate amount of quiroz secretions through ETT Q2 and PRN. Patient awake and alert. Vent plugged into red outlet. Alarms are on and audible. Will continue to monitor throughout the day.
--- NOTE | 2019-07-18 07:03 | NUR ---
RESPIRATORY NOTES: Weaning started at 0656. Placed Patient on PS +16 PEEP +5 FIO2 40%. Will titrate Pressure Support throughout the day. EMMA estrada.
[2019-07-18] MEDS: Albuterol/Ipratropium 3ml neb HHN SCH ×4 (07:04→19:15)
--- NOTE | 2019-07-18 07:17 | NUR ---
HAND-OFF: Report given to Francisco CARTER.
--- NOTE | 2019-07-18 07:20 | NUR ---
NURSE NOTES: Late entry. PT and report received from EMMA Giordano; PT received intubated ETT 8.0; 21cm @ R-lip; AC 14, TV 500, 40%, peep 5; no S/S of respiratory distress, no reports of fever from PM shift nurse, PT has NGtube in L-nare feeding held for weaning but PT has Jevity 1.2 @ 60cc/hr at goal; A/O x 3-4 able to follow commands; nod head yes/no to questions; responsive to name; press call light for RN; PT has JASON-PICC running TKO. PT has suprapubic catheter intact and draining; paraplegia of the bilateral lower extremities due to spinal bifida; lower extremities elevated on pillows. PT received in the process of weaning by RT Otilia; reported that PT was able to tolerate 20min of weaning and placed back to AC mode. Will continue to monitor PT.
--- NOTE | 2019-07-18 07:20 | NUR ---
RESPIRATORY NOTES: Weaning stopped. Patient went apneic multiple times. Placed back on ACVC at 0715 because of lack of spontaneous effort.
--- NOTE | 2019-07-18 08:33 | General Progress Note ---
Assessment/Plan Status: stable Assessment/Plan: S, O: Intubated, awake, is following command, vent setting reviewed PHYSICAL EXAMINATION:HEAD AND NECK: intubated , Atraumatic, normocephalic. CHEST: Diffuse bronchial breathing sounds. No wheezing.HEART: S1, S2. Regular rate and rhythm. ABDOMEN: Obese, positive for suprapubic catheter.MUSCULOSKELETAL: The atrophy of the lower extremities, paraplegia are noted.NEUROLOGY: The patient is Intubated, limited eval LABORATORY AND DIAGNOSTIC DATA: Dated July 18 reviewed ASSESSMENT AND PLAN: 1.VDRF 2. Sepsis - healthcare associated. 3. Pneumonia, healthcare associated. 3. UTI - healthcare associated. 4. Congenital abnormalities, spina bifida, paraplegic, wheelchair-bound. 5. On New oral anticoagulation 6. GI and DVT prophylaxis. PLAN OF CARE: Current Pulmonary and ID care S/P Bronch, pending cultures Notes from ID Pulmonary reviewed Stable WBC counts, afebrile, failed second attempt for extubation , will continue additional attempts per pulmonary D/w Rn at bed side I spent 60 minutes in direct patient care. Subjective Allergies: Coded Allergies: PENICILLIN G (Verified Allergy, Unknown, 12/02/18) Tolerates cabapenem, cephalosporin PENICILLINS (Unverified Allergy, Unknown, 12/02/18) Objective Last 24 Hour Vital Signs Date Time Temp Pulse Resp B/P (MAP) Pulse Ox O2 Delivery O2 Flow Rate FiO2 07/18/19 07:04 100 07/18/19 07:00 72 17 131/71 (91) 100 07/18/19 06:56 71 16 99 Mechanical Ventilator 40 69 14 40 40 07/18/19 06:00 57 14 114/55 (74) 100 07/18/19 05:26 67 14 40 07/18/19 05:00 98.7 71 14 112/55 (74) 100 07/18/19 04:00 78 15 109/59 (76) 100 07/18/19 04:00 40 07/18/19 04:00 Mechanical Ventilator 07/18/19 04:00 80 07/18/19 03:11 73 20 40 07/18/19 03:00 79 17 114/58 (76) 100 07/18/19 02:00 70 16 111/62 (78) 100 07/18/19 01:00 73 18 116/69 (85) 100 07/18/19 00:00 Mechanical Ventilator 07/18/19 00:00 99.2 84 15 96/54 (68) 100 07/18/19 00:00 73 14 100 Mechanical Ventilator 40 71 15 40 07/18/19 00:00 100 07/18/19 00:00 40 07/17/19 23:09 81 15 40 07/17/19 23:00 82 14 114/65 (81) 99 07/17/19 22:00 86 17 108/79 (89) 99 07/17/19 21:00 85 16 102/53 (69) 98 07/17/19 20:33 98 17 40 07/17/19 20:00 Mechanical Ventilator 07/17/19 20:00 96 07/17/19 20:00 99.0 95 19 102/50 (67) 99 07/17/19 20:00 40 07/17/19 19:36 86 17 100 Mechanical Ventilator 40 85 14 40 07/17/19 19:00 92 22 125/60 (81) 97 07/17/19 18:00 90 22 40 07/17/19 18:00 102 22 118/76 (90) 97 07/17/19 17:22 94 22 40 40 07/17/19 17:00 97 22 116/56 (76) 96 07/17/19 16:00 Mechanical Ventilator 07/17/19 16:00 40 07/17/19 16:00 101 07/17/19 16:00 98.2 98 22 119/71 (87) 96 07/17/19 15:00 99 21 117/59 (78) 95 07/17/19 14:54 93 23 40 40 07/17/19 14:00 75 14 110/66 (81) 99 07/17/19 13:30 71 14 98 Mechanical Ventilator 40 07/17/19 13:28 77 14 100 Mechanical Ventilator 40 75 14 40 07/17/19 13:00 73 16 117/64 (81) 99 07/17/19 12:00 98.4 90 19 114/58 (76) 96 07/17/19 12:00 Mechanical Ventilator 07/17/19 12:00 40 07/17/19 12:00 85 07/17/19 11:42 89 19 40 07/17/19 11:29 95 22 40 40 07/17/19 11:00 95 21 142/70 (94) 100 07/17/19 10:00 93 20 142/70 (94) 100 07/17/19 09:15 89 24 40 40 07/17/19 09:00 83 19 127/66 (86) 100 Intake and Output 07/17/19 07/18/19 19:00 07:00 Intake Total 730 ml 1080 ml Output Total 525 ml 605 ml Balance 205 ml 475 ml IV Total 410 ml 410 ml Tube Feeding 320 ml 670 ml Output Urine Total 525 ml 605 ml # Bowel Movements 1 Laboratory Tests 07/17/19 11:25: Arterial Blood pH 7.367, Arterial Blood Partial Pressure CO2 48.3H, Arterial Blood Partial Pressure O2 63.7L, Arterial Blood HCO3 27.1H, Arterial Blood Oxygen Saturation 90.4L, Arterial Blood Base Excess 1.3, Gerard Test Positive Height (Feet): 4 Height (Inches): 10.00 Weight (Pounds): 143 Denise Neri MD Jul 18, 2019 08:33
[2019-07-18] MEDS: Eliquis 5mg tablet ORAL SCH ×2 (08:46→18:30)
[2019-07-18] MEDS: Sennosides 8.6mg tab ORAL SCH ×2 (08:46→18:29)
[2019-07-18] MEDS: Nystatin Susp 500,000 units/5ml ORAL SCH (08:46)
--- NOTE | 2019-07-18 08:57 | NUR ---
RESPIRATORY NOTES: Attempted weaning again at 0850. Weaning successful. Placed Patient on PS +16 PEEP +5 Fio2 40%. Will continue to closely monitor.
--- NOTE | 2019-07-18 10:47 | NUR ---
RESPIRATORY NOTES: Weaning settings changed. Titrated PS from +16 to +14. Current weaning settings PS +14 PEEP +5 FIO2 40%.
[2019-07-18 11:05] LABS: BASOPHILS % (AUTO) 0.6 % (0.0-2.0); EOSINOPHILS % (AUTO) 3.1 % (0.0-3.0); HEMOGLOBIN 9.1 G/DL (12.0-16.0); LYMPHOCYTES % (AUTO) 13.2 % (20.0-45.0); MEAN CORPUSCULAR VOLUME 68 FL (80-99); MONOCYTES % (AUTO) 5.5 % (1.0-10.0); NEUTROPHILS % (AUTO) 77.7 % (45.0-75.0); PLATELET COUNT 327 K/UL (150-450); WHITE BLOOD COUNT 11.4 K/UL (4.8-10.8)
[2019-07-18 11:11] LABS: ANION GAP 7 mmol/L (5-15); BLOOD UREA NITROGEN 14 mg/dL (7-18); CALCIUM 8.4 MG/DL (8.5-10.1); CARBON DIOXIDE 27 MMOL/L (21-32); CHLORIDE 101 MMOL/L (98-107); CREATININE 0.4 MG/DL (0.55-1.30); POTASSIUM 3.7 MMOL/L (3.5-5.1); SODIUM 135 MMOL/L (136-145)
[2019-07-18 11:15] LABS: ALANINE AMINOTRANSFERASE 15 U/L (12-78); ALBUMIN 2.6 G/DL (3.4-5.0); ALBUMIN/GLOBULIN RATIO 0.5 (1.0-2.7); ALKALINE PHOSPHATASE 69 U/L (46-116); ASPARTATE AMINO TRANSFERASE 9 U/L (15-37); BILIRUBIN,TOTAL 0.3 MG/DL (0.2-1.0)
--- NOTE | 2019-07-18 12:47 | NUR ---
RESPIRATORY NOTES: Weaning settings changed. Titrated PS from +14 to +12. Current weaning settings PS +12 PEEP +5 FIO2 40%.
--- NOTE | 2019-07-18 13:04 | NUR ---
ASSOCIATE ART DIRECTORRELIABILITY TECHNICIANS SI: RESP FAILURE ETT/VENT SUPPORT T. 98.3 HR 72 RR 16 B/P 131/71 CPAP PEEP 5PS 12 FIO2 40% PH 7.40 PCO2 46.0 PO2 102.6 HCO3 28.0 O2 SAT 96.8 WBC 11.4 NA 135 IS: ZYVOX IV MEROPENEM IV ALB INLINE TX ICU STATUS
--- NOTE | 2019-07-18 13:06 | NUR ---
RESPIRATORY NOTES: Weaning stopped at 1306. Patient became SOB and could not pull tidal volumes greater than 150mL. RSBI 365. Back on previous ACVC settings.
--- NOTE | 2019-07-18 13:36 | Pulmonolgy Critical Care Note ---
Critical Care - Asmt/Plan Problems: (1) Pneumonia of both lower lobes Assessment & Plan: VDRF, intubated 07/12/19, S/P FOB 07/12/19 (2) Catheter-associated urinary tract infection Assessment & Plan: PsA and proteus (3) Respiratory failure with hypoxia Assessment & Plan: Acute on chronic hypercapnic and hypoxemic RF 2/2 PNA VDRF as able Duplex neg, minimally elevated d-dimer, unlikely VTE and already on a NOAC (4) HCAP (healthcare-associated pneumonia) (5) Paraplegia (6) Sepsis (7) Suprapubic catheter (8) Restrictive lung disease due to kyphoscoliosis (9) Decubitus skin ulcer (10) Spina bifida Respiratory: monitor respiratory rate, adjust FIO2, weaning trial - SBT in am, other - DUOnebs and NAC Cardiac: continue to monitor HR/BP Renal: F/U I&O, other - lasix 20 IV x 1 Infectious Disease: continue antibiotics - OTILIA/Zyvox Gastrointestinal: continue feedings/current rate - NGTF's, hold in am for SBT Endocrine: monitor blood sugar Hematologic: monitor H/H Neurologic: keep patient comfortable Prophylaxis: Protonix, other - Eliquis Disposition: keep in ICU Time Spent (Minutes): other - 35 Notes Reviewed: physical therapy manager, ID Discussed with: nurses, consultants, other - FC, continue to discuss [facility] Critical Care - Objective Last 24 Hour Vital Signs Date Time Temp Pulse Resp B/P (MAP) Pulse Ox O2 Delivery O2 Flow Rate FiO2 07/18/19 13:08 77 15 40 07/18/19 13:06 40 07/18/19 13:00 81 17 137/73 (94) 100 07/18/19 12:43 76 16 100 Mechanical Ventilator 40 72 21 40 40 07/18/19 12:00 98.1 71 20 114/64 (81) 100 07/18/19 12:00 40 07/18/19 11:00 70 19 132/72 (92) 100 07/18/19 10:50 40 07/18/19 10:49 76 20 40 40 07/18/19 10:00 70 19 119/72 (88) 100 07/18/19 09:00 70 19 133/67 (89) 99 07/18/19 08:59 74 18 40 40 07/18/19 08:50 40 07/18/19 08:00 98.3 72 15 128/61 (83) 98 07/18/19 08:00 60 07/18/19 08:00 40 07/18/19 08:00 Mechanical Ventilator 07/18/19 07:20 40 07/18/19 07:04 100 07/18/19 07:00 72 17 131/71 (91) 100 07/18/19 06:56 71 16 99 Mechanical Ventilator 40 69 14 40 40 07/18/19 06:00 57 14 114/55 (74) 100 07/18/19 05:26 67 14 40 07/18/19 05:00 98.7 71 14 112/55 (74) 100 07/18/19 04:00 78 15 109/59 (76) 100 07/18/19 04:00 40 07/18/19 04:00 Mechanical Ventilator 07/18/19 04:00 80 07/18/19 03:11 73 20 40 07/18/19 03:00 79 17 114/58 (76) 100 07/18/19 02:00 70 16 111/62 (78) 100 07/18/19 01:00 73 18 116/69 (85) 100 07/18/19 00:00 Mechanical Ventilator 07/18/19 00:00 99.2 84 15 96/54 (68) 100 07/18/19 00:00 73 14 100 Mechanical Ventilator 40 71 15 40 07/18/19 00:00 100 07/18/19 00:00 40 07/17/19 23:09 81 15 40 07/17/19 23:00 82 14 114/65 (81) 99 07/17/19 22:00 86 17 108/79 (89) 99 07/17/19 21:00 85 16 102/53 (69) 98 07/17/19 20:33 98 17 40 07/17/19 20:00 Mechanical Ventilator 07/17/19 20:00 96 07/17/19 20:00 99.0 95 19 102/50 (67) 99 07/17/19 20:00 40 07/17/19 19:36 86 17 100 Mechanical Ventilator 40 85 14 40 07/17/19 19:00 92 22 125/60 (81) 97 07/17/19 18:00 90 22 40 07/17/19 18:00 102 22 118/76 (90) 97 07/17/19 17:22 94 22 40 40 07/17/19 17:00 97 22 116/56 (76) 96 07/17/19 16:00 Mechanical Ventilator 07/17/19 16:00 40 07/17/19 16:00 101 07/17/19 16:00 98.2 98 22 119/71 (87) 96 07/17/19 15:00 99 21 117/59 (78) 95 07/17/19 14:54 93 23 40 40 07/17/19 14:00 75 14 110/66 (81) 99 Status: sedated - intubated Condition: improving HEENT: atraumatic, normocephalic Lungs: rales, rhonchi Heart: HR/BP stable Abdomen: soft, non-tender, active bowel sounds Extremities: no C/C/E Blood Sugars: BS controlled Critical Care - Subjective ROS Limited/Unobtainable: Yes ICU Day: 7 Intubation Day: 7 Interval Events: Anabel PS 16 then fatigued and failed SBT Condition: stable IV Access: PICC - LUE EKG Rhythm: Sinus Rhythm FI02: 40 Vent Support Breath Rate: 14 Vent Support Mode: AC Vent Tidal Volume: 500 Sputum Amount: Small PEEP: 5.0 PIP: 44 Secretions: small thin Fluids: SLIV Drips: N/A Tube Feeding Amount: 60 Residuals: 0 I&O: Intake and Output 07/17/19 07/18/19 19:00 07:00 Intake Total 730 ml 1080 ml Output Total 525 ml 605 ml Balance 205 ml 475 ml IV Total 410 ml 410 ml Tube Feeding 320 ml 670 ml Output Urine Total 525 ml 605 ml # Bowel Movements 1 Subjective: ANDREWS CXR: P inf and PVC ET-Tube: 8.0 ET Position: 21 Labs: Laboratory Tests Test 07/18/19 10:00 07/18/19 10:35 White Blood Count 11.4 K/UL (4.8-10.8) H Red Blood Count 4.40 M/UL (4.20-5.40) Hemoglobin 9.1 G/DL (12.0-16.0) L Hematocrit 30.0 % (37.0-47.0) L Mean Corpuscular Volume 68 FL (80-99) L Mean Corpuscular Hemoglobin 20.6 PG (27.0-31.0) L Mean Corpuscular Hemoglobin Concent 30.3 G/DL (32.0-36.0) L Red Cell Distribution Width 18.0 % (11.6-14.8) H Platelet Count 327 K/UL (150-450) Mean Platelet Volume 5.5 FL (6.5-10.1) L Neutrophils (%) (Auto) 77.7 % (45.0-75.0) H Lymphocytes (%) (Auto) 13.2 % (20.0-45.0) L Monocytes (%) (Auto) 5.5 % (1.0-10.0) Eosinophils (%) (Auto) 3.1 % (0.0-3.0) H Basophils (%) (Auto) 0.6 % (0.0-2.0) Sodium Level 135 MMOL/L (136-145) L Potassium Level 3.7 MMOL/L (3.5-5.1) Chloride Level 101 MMOL/L (98-107) Carbon Dioxide Level 27 MMOL/L (21-32) Anion Gap 7 mmol/L (5-15) Blood Urea Nitrogen 14 mg/dL (7-18) Creatinine 0.4 MG/DL (0.55-1.30) L Estimat Glomerular Filtration Rate > 60 mL/min (>60) Glucose Level 157 MG/DL (74-106) H Calcium Level 8.4 MG/DL (8.5-10.1) L Total Bilirubin 0.3 MG/DL (0.2-1.0) Aspartate Amino Transf (AST/SGOT) 9 U/L (15-37) L Alanine Aminotransferase (ALT/SGPT) 15 U/L (12-78) Alkaline Phosphatase 69 U/L (46-116) Total Protein 7.7 G/DL (6.4-8.2) Albumin 2.6 G/DL (3.4-5.0) L Globulin 5.1 g/dL Albumin/Globulin Ratio 0.5 (1.0-2.7) L Arterial Blood pH 7.403 (7.350-7.450) Arterial Blood Partial Pressure CO2 46.0 mmHg (35.0-45.0) H Arterial Blood Partial Pressure O2 102.6 mmHg (75.0-100.0) H Arterial Blood HCO3 28.0 mmol/L (22.0-26.0) H Arterial Blood Oxygen Saturation 96.8 % (95-100) Arterial Blood Base Excess 2.8 (-2-2) H Gerard Test Positive Regino Pearson MD Jul 18, 2019 13:36
--- NOTE | 2019-07-18 13:39 | NUR ---
NURSE NOTES: MD Lili made rounds, was told to endorse to tomorrow AM shift nurse to call with results of weaning results for possible extubation, orders to stop oral nystatin given. Will continue with plan of care for PT.
--- NOTE | 2019-07-18 13:42 | NUR ---
NURSE NOTES: Per MD Lili; PT to get Lasix 20mg IVP once. Will place order for .
--- NOTE | 2019-07-18 14:13 | Infectious Diseases Prog Note ---
Assessment/Plan Problems: (1) Pneumonia of both lower lobes Assessment & Plan: possible aspiration related S/P intubation and bronchoscopy with BAL . with improvement in her oxygen level , responded to meropenem coverage , sputum culture grew normal respiratory sunny . will treat with meropenem for two weeks total . aspiration precaution, monitor CXR as per pulmonary (2) Catheter-associated urinary tract infection Assessment & Plan: with MDR pseudomonas aeruginosa , ESBL producing E coli and Enterococcus Faecalis vancomycin resistant , continue zyvox and meropenem for total of two weeks , continue local catheter care, recommend to change the suprapubic catheter if not done yet. D/W nurse (3) Sepsis Assessment & Plan: ruled out with negative blood culture x 2, already on wide spectrum antibiotics for pneumonia and CAUTI coverage (4) Decubitus skin ulcer Assessment & Plan: of the sacrum, continue off loading and local wound care as per hospital protocol (5) Respiratory failure with hypoxia Assessment & Plan: due to the above, with CO2 retention S/P intubation on mechanical ventilation , on weaning trials , monitor ABG and CXR , pulmonary is following (6) Spina bifida Subjective ROS Limited/Unobtainable: Yes Allergies: Coded Allergies: PENICILLIN G (Verified Allergy, Unknown, 12/02/18) Tolerates cabapenem, cephalosporin PENICILLINS (Unverified Allergy, Unknown, 12/02/18) Subjective she was comfortable lying in bed, still intubated on mechanical ventilation , awake and responsive . no fever or chills today , has mild cough no phlegm . no diarrhea . mild oral thrush Objective Vital Signs Last 24 Hour Vital Signs Date Time Temp Pulse Resp B/P (MAP) Pulse Ox O2 Delivery O2 Flow Rate FiO2 07/18/19 13:08 77 15 40 07/18/19 13:06 40 07/18/19 13:00 81 17 137/73 (94) 100 07/18/19 12:43 76 16 100 Mechanical Ventilator 40 72 21 40 40 07/18/19 12:00 98.1 71 20 114/64 (81) 100 07/18/19 12:00 Mechanical Ventilator 07/18/19 12:00 72 07/18/19 12:00 40 07/18/19 11:00 70 19 132/72 (92) 100 07/18/19 10:50 40 07/18/19 10:49 76 20 40 40 07/18/19 10:00 70 19 119/72 (88) 100 07/18/19 09:00 70 19 133/67 (89) 99 07/18/19 08:59 74 18 40 40 07/18/19 08:50 40 07/18/19 08:00 98.3 72 15 128/61 (83) 98 07/18/19 08:00 60 07/18/19 08:00 40 07/18/19 08:00 Mechanical Ventilator 07/18/19 07:20 40 07/18/19 07:04 100 07/18/19 07:00 72 17 131/71 (91) 100 07/18/19 06:56 71 16 99 Mechanical Ventilator 40 69 14 40 40 07/18/19 06:00 57 14 114/55 (74) 100 07/18/19 05:26 67 14 40 07/18/19 05:00 98.7 71 14 112/55 (74) 100 07/18/19 04:00 78 15 109/59 (76) 100 07/18/19 04:00 40 07/18/19 04:00 Mechanical Ventilator 07/18/19 04:00 80 07/18/19 03:11 73 20 40 07/18/19 03:00 79 17 114/58 (76) 100 07/18/19 02:00 70 16 111/62 (78) 100 07/18/19 01:00 73 18 116/69 (85) 100 07/18/19 00:00 Mechanical Ventilator 07/18/19 00:00 99.2 84 15 96/54 (68) 100 07/18/19 00:00 73 14 100 Mechanical Ventilator 40 71 15 40 07/18/19 00:00 100 07/18/19 00:00 40 07/17/19 23:09 81 15 40 07/17/19 23:00 82 14 114/65 (81) 99 07/17/19 22:00 86 17 108/79 (89) 99 07/17/19 21:00 85 16 102/53 (69) 98 07/17/19 20:33 98 17 40 07/17/19 20:00 Mechanical Ventilator 07/17/19 20:00 96 07/17/19 20:00 99.0 95 19 102/50 (67) 99 07/17/19 20:00 40 07/17/19 19:36 86 17 100 Mechanical Ventilator 40 85 14 40 07/17/19 19:00 92 22 125/60 (81) 97 07/17/19 18:00 90 22 40 07/17/19 18:00 102 22 118/76 (90) 97 07/17/19 17:22 94 22 40 40 07/17/19 17:00 97 22 116/56 (76) 96 07/17/19 16:00 Mechanical Ventilator 07/17/19 16:00 40 07/17/19 16:00 101 07/17/19 16:00 98.2 98 22 119/71 (87) 96 07/17/19 15:00 99 21 117/59 (78) 95 07/17/19 14:54 93 23 40 40 Height (Feet): 4 Height (Inches): 10.00 Weight (Pounds): 143 General Appearance: WD/WN, no acute distress HEENT: normocephalic, atraumatic, anicteric, mucous membranes moist, PERRL Respiratory/Chest: chest wall non-tender, decreased breath sounds, crackles/ rales Cardiovascular: normal peripheral pulses, normal rate, regular rhythm, no gallop/murmur, no JVD Abdomen: normal bowel sounds, soft, non tender, no organomegaly, non distended , no mass, no scars Genitourinary: normal external genitalia Extremities: no cyanosis, no clubbing Skin: no rash, no lesions 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, alert, responsive Lymphatic: no neck adenopathy, no groin adenopathy Musculoskeletal: normal muscle bulk, no effusion Laboratory Tests Test 07/18/19 10:00 07/18/19 10:35 White Blood Count 11.4 K/UL (4.8-10.8) H Red Blood Count 4.40 M/UL (4.20-5.40) Hemoglobin 9.1 G/DL (12.0-16.0) L Hematocrit 30.0 % (37.0-47.0) L Mean Corpuscular Volume 68 FL (80-99) L Mean Corpuscular Hemoglobin 20.6 PG (27.0-31.0) L Mean Corpuscular Hemoglobin Concent 30.3 G/DL (32.0-36.0) L Red Cell Distribution Width 18.0 % (11.6-14.8) H Platelet Count 327 K/UL (150-450) Mean Platelet Volume 5.5 FL (6.5-10.1) L Neutrophils (%) (Auto) 77.7 % (45.0-75.0) H Lymphocytes (%) (Auto) 13.2 % (20.0-45.0) L Monocytes (%) (Auto) 5.5 % (1.0-10.0) Eosinophils (%) (Auto) 3.1 % (0.0-3.0) H Basophils (%) (Auto) 0.6 % (0.0-2.0) Sodium Level 135 MMOL/L (136-145) L Potassium Level 3.7 MMOL/L (3.5-5.1) Chloride Level 101 MMOL/L (98-107) Carbon Dioxide Level 27 MMOL/L (21-32) Anion Gap 7 mmol/L (5-15) Blood Urea Nitrogen 14 mg/dL (7-18) Creatinine 0.4 MG/DL (0.55-1.30) L Estimat Glomerular Filtration Rate > 60 mL/min (>60) Glucose Level 157 MG/DL (74-106) H Calcium Level 8.4 MG/DL (8.5-10.1) L Total Bilirubin 0.3 MG/DL (0.2-1.0) Aspartate Amino Transf (AST/SGOT) 9 U/L (15-37) L Alanine Aminotransferase (ALT/SGPT) 15 U/L (12-78) Alkaline Phosphatase 69 U/L (46-116) Total Protein 7.7 G/DL (6.4-8.2) Albumin 2.6 G/DL (3.4-5.0) L Globulin 5.1 g/dL Albumin/Globulin Ratio 0.5 (1.0-2.7) L Arterial Blood pH 7.403 (7.350-7.450) Arterial Blood Partial Pressure CO2 46.0 mmHg (35.0-45.0) H Arterial Blood Partial Pressure O2 102.6 mmHg (75.0-100.0) H Arterial Blood HCO3 28.0 mmol/L (22.0-26.0) H Arterial Blood Oxygen Saturation 96.8 % (95-100) Arterial Blood Base Excess 2.8 (-2-2) H Gerard Test Positive Current Medications Medications (Trade) Dose Ordered Sig/Sandeep Route PRN Reason Start Time Stop Time Status Last Admin Dose Admin Acetaminophen (Tylenol) 650 mg Q6H PRN ORAL Mild Pain/Temp > 100.5 07/12/19 12:30 08/11/19 12:29 07/14/19 08:29 Acetylcysteine (Mucomyst) 200 mg Q6HRT HHN 07/17/19 19:00 08/16/19 18:59 07/18/19 12:47 Albuterol/ Ipratropium (Albuterol/ Ipratropium) 3 ml Q4H PRN HHN Shortness of Breath 07/17/19 15:00 07/22/19 14:59 Albuterol/ Ipratropium (Albuterol/ Ipratropium) 3 ml Q6HRT N 07/16/19 19:00 07/21/19 18:59 07/18/19 12:47 Apixaban (Eliquis) 5 mg BID ORAL 07/12/19 18:00 08/11/19 08:59 07/18/19 08:46 Chlorhexidine Gluconate (Debora-Hex 2%) 1 applic DAILY@2000 TOPIC 07/14/19 20:00 08/13/19 19:59 07/17/19 21:09 Furosemide (Lasix) 20 mg ONCE IV 07/18/19 13:45 07/18/19 14:45 Linezolid 300 ml @ 300 mls/hr Q12HR IVPB 07/16/19 21:00 07/23/19 20:59 07/18/19 08:46 Meropenem 1 gm/ Sodium Chloride 55 ml @ 110 mls/hr Q8HR IVPB 07/13/19 15:00 07/26/19 23:59 07/18/19 05:15 Pantoprazole (Protonix) 40 mg DAILY ORAL 07/13/19 09:00 08/11/19 08:59 07/18/19 08:46 Sennosides (Senokot) 8.6 mg BID ORAL 07/12/19 18:00 08/11/19 08:59 07/18/19 08:46 Gigi Sanabria M.D. Jul 18, 2019 14:13
--- NOTE | 2019-07-18 16:00 | NUR ---
NURSE NOTES: PT observed removing BP cuff, reorientated PT not to remove cuff. No S/S of respiratory distress noted. Will continue to monitor.
[2019-07-18] MEDS ORDERED: Tubing IV Secondary IV ONE (16:19)
--- NOTE | 2019-07-18 19:23 | NUR ---
HAND-OFF: Report and PT given to EMMA Giordano.
--- NOTE | 2019-07-18 20:00 | NUR ---
NURSE NOTES: Repositioned and oral care given. Vitals are stable and no acute distress afebrile with temperature of 98.7F. Patient is awake and alert.
[2019-07-18] MEDS: Dyna-Hex 2% Top Sol 2oz TOPIC SCH (21:10)
--- NOTE | 2019-07-18 22:00 | NUR ---
NURSE NOTES: Patient repositioned, oral care given, vitals are stable. NAD at this time, patient is calm and collective at this time.
[2019-07-19] VITALS (24 sets, daily range): BP systolic 96–145; BP diastolic 45–89
--- NOTE | 2019-07-19 | NUR ---
NURSE NOTES: Repositioned, vitals remains stable, no acute distress, no feed residuals.
[2019-07-19] MEDS: Albuterol/Ipratropium 3ml neb HHN SCH ×4 (01:17→19:29)
[2019-07-19] MEDS: Acetylcysteine 20% Soln 4ml HHN SCH ×4 (01:17→19:29)
--- NOTE | 2019-07-19 02:00 | NUR ---
NURSE NOTES: Patient repositioned and given oral care. No acute distress at this time.
--- NOTE | 2019-07-19 04:00 | NUR ---
NURSE NOTES: Patient cleaned and repositioned. Blood drawn and taken to lab. Vitals remains stable, no fevers. Will continue to monitor.
[2019-07-19] MEDS: Meropenem 1 GM in NS 55 ML IVPB SCH ×3 (05:18→22:49)
[2019-07-19 05:42] LABS: BASOPHILS % (AUTO) 0.4 % (0.0-2.0); EOSINOPHILS % (AUTO) 3.1 % (0.0-3.0); HEMATOCRIT 30.4 % (37.0-47.0); HEMOGLOBIN 9.3 G/DL (12.0-16.0); LYMPHOCYTES % (AUTO) 14.1 % (20.0-45.0); MEAN CORPUSCULAR VOLUME 68 FL (80-99); MONOCYTES % (AUTO) 5.2 % (1.0-10.0); NEUTROPHILS % (AUTO) 77.1 % (45.0-75.0); PLATELET COUNT 355 K/UL (150-450); RED CELL DISTRIBUTION WIDTH 17.2 % (11.6-14.8); WHITE BLOOD COUNT 12.5 K/UL (4.8-10.8)
[2019-07-19 06:30] LABS: ALANINE AMINOTRANSFERASE 13 U/L (12-78); ALBUMIN 2.7 G/DL (3.4-5.0); ALBUMIN/GLOBULIN RATIO 0.5 (1.0-2.7); ALKALINE PHOSPHATASE 77 U/L (46-116); ASPARTATE AMINO TRANSFERASE 9 U/L (15-37); BILIRUBIN,TOTAL 0.2 MG/DL (0.2-1.0); BLOOD UREA NITROGEN 18 mg/dL (7-18); CALCIUM 8.8 MG/DL (8.5-10.1); CHLORIDE 100 MMOL/L (98-107); CREATININE 0.4 MG/DL (0.55-1.30); POTASSIUM 3.4 MMOL/L (3.5-5.1); SODIUM 136 MMOL/L (136-145)
--- NOTE | 2019-07-19 07:16 | NUR ---
HAND-OFF: Report given to Mel HIRSCH
--- NOTE | 2019-07-19 07:17 | NUR ---
NURSE NOTES: Pt received from EMMA Giordano in stable condition without cardiopulmonary distress. Pt is awake in bed, AAOx3, opens eyes spontaneously, able to follow commands, tracks eyes but with uncoordinated movements, pupils are equal and round, 4mm bilaterally and react to light. 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 Pt is intubated with 8 ETT 21cm at right lip AC 14 TV 500 FiO2 45% Peep 5 with spO2 98%. Lung sounds noted with rhonchi all lobes with sounds noted more diminished on left upper and lower lobes. Pt has a left nare NGT running Jevity at 60cc/hr with no gastric residuals noted at this time. Pt's abdomen is round and non-tender with bowel sounds present on all quadrants. Skin alterations noted. Pt has a JASON PICC line wityh dry and intact dressing running NS at 5cc/hr TKO. Pt has a suprapubic catheter noted in lower pelvic region draining yellow urine. Bed is in lowest position, alarm on, side rails up x 3, call light within reach, will continue to monitor. Message left for Dr. Neri for pt's potassium today of 3.4. Awaiting call back.
[2019-07-19 07:41] LABS: CARBON DIOXIDE 27 MMOL/L (21-32)
--- NOTE | 2019-07-19 07:52 | NUR ---
Received call back from Dr. Shah with new order for K-dur 40meq once via NGT. order placed. Addendum: 07/19/19 at 0753 by Mitra Le[address] RN Dr Neri
[2019-07-19] MEDS: Sennosides 8.6mg tab ORAL SCH (08:52)
[2019-07-19] MEDS: Eliquis 5mg tablet ORAL SCH (08:52)
--- NOTE | 2019-07-19 08:58 | NUR ---
NURSE NOTES: Pt now being weaned on CPAP with PS10, oral care provided and pt suctioned. Will continue to monitor. Pt in no acute distress spO2 noted 100% with RR 25.
--- NOTE | 2019-07-19 10:15 | General Progress Note ---
Assessment/Plan Status: stable Assessment/Plan: S, O: Intubated, awake, is following command, vent setting reviewed PHYSICAL EXAMINATION:HEAD AND NECK: intubated , Atraumatic, normocephalic. CHEST: Diffuse bronchial breathing sounds. No wheezing.HEART: S1, S2. Regular rate and rhythm. ABDOMEN: Obese, positive for suprapubic catheter.MUSCULOSKELETAL: The atrophy of the lower extremities, paraplegia are noted.NEUROLOGY: The patient is Intubated, limited eval LABORATORY AND DIAGNOSTIC DATA: Dated July 18 reviewed ASSESSMENT AND PLAN: 1.VDRF 2. Sepsis - healthcare associated. 3. Pneumonia, healthcare associated. 3. UTI - healthcare associated. 4. Congenital abnormalities, spina bifida, paraplegic, wheelchair-bound. 5. On New oral anticoagulation 6. GI and DVT prophylaxis. PLAN OF CARE: Current Pulmonary and ID care S/P Bronch, pending cultures Notes from ID Pulmonary reviewed Stable WBC counts, afebrile, failed second attempt for extubation , will continue additional attempts per pulmonary D/w Rn at bed side I spent 60 minutes in direct patient care. Subjective Allergies: Coded Allergies: PENICILLIN G (Verified Allergy, Unknown, 12/02/18) Tolerates cabapenem, cephalosporin PENICILLINS (Unverified Allergy, Unknown, 12/02/18) Objective Last 24 Hour Vital Signs Date Time Temp Pulse Resp B/P (MAP) Pulse Ox O2 Delivery O2 Flow Rate FiO2 07/19/19 08:57 45 07/19/19 08:42 67 14 45 45 07/19/19 08:00 97.5 84 16 119/70 (86) 100 07/19/19 08:00 45 07/19/19 07:01 67 14 100 Mechanical Ventilator 45 71 14 45 07/19/19 07:00 69 14 98/68 (78) 100 07/19/19 06:35 77 16 07/19/19 06:00 74 14 109/58 (75) 100 07/19/19 05:00 80 16 45 07/19/19 05:00 73 17 96/45 (62) 99 07/19/19 04:00 77 07/19/19 04:00 40 07/19/19 04:00 98.9 75 16 106/61 (76) 100 07/19/19 04:00 Mechanical Ventilator 07/19/19 03:06 84 15 45 07/19/19 03:00 85 17 116/53 (74) 99 07/19/19 02:00 68 15 133/59 (83) 100 07/19/19 01:17 62 15 100 Mechanical Ventilator 45 60 14 45 07/19/19 01:00 60 14 113/54 (73) 100 07/19/19 00:00 40 07/19/19 00:00 70 07/19/19 00:00 Mechanical Ventilator 07/19/19 00:00 99.0 85 17 113/75 (88) 99 07/18/19 23:01 80 14 45 07/18/19 23:00 78 15 118/58 (78) 100 07/18/19 22:00 84 16 111/67 (82) 100 07/18/19 21:07 86 16 45 07/18/19 21:00 88 15 117/60 (79) 99 07/18/19 20:00 98.7 81 15 96/67 (77) 100 07/18/19 20:00 85 07/18/19 20:00 40 07/18/19 20:00 Mechanical Ventilator 07/18/19 19:16 78 13 100 Mechanical Ventilator 45 69 14 45 07/18/19 19:00 70 14 100/52 (68) 100 07/18/19 18:00 83 15 105/59 (74) 100 07/18/19 17:17 78 18 40 07/18/19 17:00 72 15 97/56 (70) 99 07/18/19 16:00 98.0 76 15 96/46 (63) 100 07/18/19 16:00 Mechanical Ventilator 07/18/19 16:00 66 07/18/19 15:00 78 15 108/59 (75) 99 07/18/19 14:46 76 14 40 07/18/19 14:00 76 14 110/52 (71) 100 07/18/19 13:08 77 15 40 07/18/19 13:06 40 07/18/19 13:00 81 17 137/73 (94) 100 07/18/19 12:43 76 16 100 Mechanical Ventilator 40 72 21 40 40 07/18/19 12:00 98.1 71 20 114/64 (81) 100 07/18/19 12:00 Mechanical Ventilator 07/18/19 12:00 72 07/18/19 12:00 40 07/18/19 11:00 70 19 132/72 (92) 100 07/18/19 10:50 40 07/18/19 10:49 76 20 40 40 Intake and Output 07/18/19 07/19/19 19:00 07:00 Intake Total 895 ml 1180 ml Output Total 965 ml 590 ml Balance -70 ml 590 ml Intake Free Water 50 ml IV Total 355 ml 410 ml Tube Feeding 540 ml 720 ml Output Urine Total 965 ml 590 ml Laboratory Tests 07/18/19 10:35: Arterial Blood pH 7.403, Arterial Blood Partial Pressure CO2 46.0H, Arterial Blood Partial Pressure O2 102.6H, Arterial Blood HCO3 28.0H, Arterial Blood Oxygen Saturation 96.8, Arterial Blood Base Excess 2.8H, Gerard Test Positive 07/19/19 04:00: White Blood Count 12.5H, Red Blood Count 4.50, Hemoglobin 9.3L, Hematocrit 30.4L , Mean Corpuscular Volume 68L, Mean Corpuscular Hemoglobin 20.6L, Mean Corpuscular Hemoglobin Concent 30.5L, Red Cell Distribution Width 17.2H, Platelet Count 355, Mean Platelet Volume 5.5L, Neutrophils (%) (Auto) 77.1H, Lymphocytes (%) (Auto) 14.1L, Monocytes (%) (Auto) 5.2, Eosinophils (%) (Auto) 3.1H, Basophils (%) (Auto) 0.4, Sodium Level 136, Potassium Level 3.4L, Chloride Level 100, Carbon Dioxide Level 27, Blood Urea Nitrogen 18, Creatinine 0.4L, Estimat Glomerular Filtration Rate > 60, Glucose Level 168H, Calcium Level 8.8, Total Bilirubin 0.2, Aspartate Amino Transf (AST/SGOT) 9L, Alanine Aminotransferase (ALT/SGPT) 13, Alkaline Phosphatase 77, Total Protein 8.0, Albumin 2.7L, Globulin 5.3, Albumin/Globulin Ratio 0.5L 07/19/19 09:00: Arterial Blood pH 7.427, Arterial Blood Partial Pressure CO2 45.0, Arterial Blood Partial Pressure O2 87.7, Arterial Blood HCO3 29.0H, Arterial Blood Oxygen Saturation 96.0, Arterial Blood Base Excess 4.1H, Gerard Test Positive Height (Feet): 4 Height (Inches): 10.00 Weight (Pounds): 141 Rezvani,Mohammad MD Jul 19, 2019 10:15
--- NOTE | 2019-07-19 11:13 | NUR ---
NURSE NOTES: Spoke to Dr Pearson to let him know pt is tolerating CPAP mode. Per Dr Pearson, Dr. Billingsley will be making rounds today to determine readiness for extubation.
--- NOTE | 2019-07-19 12:00 | NUR ---
NURSE NOTES: Pt repositioned and oral care provided. Pt in stable condition on CPAP mode with PS8, tolerating weaning. Still awaiting Dr. Billingsley to see pt today. Will continue to monitor.
--- NOTE | 2019-07-19 14:00 | NUR ---
NURSE NOTES: Suprapubic catheter care provided, dressing changed. Will continue to monitor. Pt repositioned and in no acute distress.
[2019-07-19] MEDS ORDERED: Acetaminophen 650mg/20.3ml GT PRN (15:30)
--- NOTE | 2019-07-19 16:00 | NUR ---
NURSE NOTES: Pt repositioned and oral care provided. Pt in no acute distress at this time. Will continue to monitor.
[2019-07-19] MEDS: Sennosides 8.6mg tab GT SCH (18:06)
[2019-07-19] MEDS: Eliquis 5mg tablet GT SCH (18:07)
--- NOTE | 2019-07-19 18:08 | NUR ---
NURSE NOTES: oral care provided, pt repositioned and in no acute distress, still on CPAP, VS stable and charted. 1800 meds given. Will continue to monitor.
--- NOTE | 2019-07-19 18:17 | NUR ---
NURSE NOTES: Dr Billingsley at bedside and wants to keep pt on CPAP overnight with ABGs in the morning + STAT CXR. Will not extubate at this time until CXR and ABG results return. RT notified.
--- NOTE | 2019-07-19 18:18 | Pulmonolgy Critical Care Note ---
Critical Care - Asmt/Plan Assessment/Plan: (1) Pneumonia of both lower lobes Assessment & Plan: VDRF, intubated 07/12/19, S/P FOB 07/12/19 (2) Catheter-associated urinary tract infection Assessment & Plan: PsA and proteus (3) Respiratory failure with hypoxia Assessment & Plan: Acute on chronic hypercapnic and hypoxemic RF 2/2 PNA VDRF as able Duplex neg, minimally elevated d-dimer, unlikely VTE and already on a NOAC (4) HCAP (healthcare-associated pneumonia) (5) Paraplegia (6) Sepsis (7) Suprapubic catheter (8) Restrictive lung disease due to kyphoscoliosis (9) Decubitus skin ulcer (10) Spina bifida Respiratory: monitor respiratory rate, adjust FIO2, weaning trial - SBT in am, other - DUOnebs and NAC, if cxr improved and abg stable in am will extubate in am Cardiac: continue to monitor HR/BP Renal: F/U I&O, other - lasix 20 IV x 1 Infectious Disease: continue antibiotics - OTILIA/Zyvox Gastrointestinal: continue feedings/current rate - NGTF's, hold in am for SBT Endocrine: monitor blood sugar Hematologic: monitor H/H Neurologic: keep patient comfortable Prophylaxis: Protonix, other - Eliquis Disposition: keep in ICU Time Spent (Minutes): other - 35 Notes Reviewed: log cutter, ID Discussed with: nurses, consultants, other - FC, continue to discuss GOC Critical Care - Objective Last 24 Hour Vital Signs Date Time Temp Pulse Resp B/P (MAP) Pulse Ox O2 Delivery O2 Flow Rate FiO2 07/19/19 18:00 92 24 114/61 (78) 100 07/19/19 17:23 100 07/19/19 17:19 94 28 45 07/19/19 17:00 79 26 106/89 (95) 100 07/19/19 16:00 45 07/19/19 16:00 Mechanical Ventilator Mechanical Ventilator Mechanical Ventilator Mechanical Ventilator 07/19/19 16:00 100 07/19/19 16:00 97.4 96 24 125/48 (73) 95 07/19/19 15:09 94 25 45 07/19/19 15:00 96 23 114/57 (76) 98 07/19/19 14:00 98 23 122/66 (84) 99 07/19/19 13:20 87 23 100 Mechanical Ventilator 45 79 24 45 07/19/19 13:00 90 22 124/80 (95) 100 07/19/19 12:00 98.6 88 19 123/56 (78) 100 07/19/19 12:00 Mechanical Ventilator Mechanical Ventilator Mechanical Ventilator Mechanical Ventilator 07/19/19 12:00 90 07/19/19 11:11 45 07/19/19 11:00 89 19 134/76 (95) 100 07/19/19 10:47 92 26 45 07/19/19 10:00 86 23 145/77 (99) 100 07/19/19 09:00 85 23 113/53 (73) 100 07/19/19 08:57 45 07/19/19 08:42 67 14 45 45 07/19/19 08:00 97.5 84 16 119/70 (86) 100 07/19/19 08:00 84 07/19/19 08:00 45 07/19/19 08:00 Mechanical Ventilator Mechanical Ventilator Mechanical Ventilator Mechanical Ventilator 07/19/19 07:01 67 14 100 Mechanical Ventilator 45 71 14 45 07/19/19 07:00 69 14 98/68 (78) 100 07/19/19 06:35 77 16 07/19/19 06:00 74 14 109/58 (75) 100 07/19/19 05:00 80 16 45 07/19/19 05:00 73 17 96/45 (62) 99 07/19/19 04:00 77 07/19/19 04:00 40 07/19/19 04:00 98.9 75 16 106/61 (76) 100 07/19/19 04:00 Mechanical Ventilator 07/19/19 03:06 84 15 45 07/19/19 03:00 85 17 116/53 (74) 99 07/19/19 02:00 68 15 133/59 (83) 100 07/19/19 01:17 62 15 100 Mechanical Ventilator 45 60 14 45 07/19/19 01:00 60 14 113/54 (73) 100 07/19/19 00:00 40 07/19/19 00:00 70 07/19/19 00:00 Mechanical Ventilator 07/19/19 00:00 99.0 85 17 113/75 (88) 99 07/18/19 23:01 80 14 45 07/18/19 23:00 78 15 118/58 (78) 100 07/18/19 22:00 84 16 111/67 (82) 100 07/18/19 21:07 86 16 45 07/18/19 21:00 88 15 117/60 (79) 99 07/18/19 20:00 98.7 81 15 96/67 (77) 100 07/18/19 20:00 85 07/18/19 20:00 40 07/18/19 20:00 Mechanical Ventilator 07/18/19 19:16 78 13 100 Mechanical Ventilator 45 69 14 45 07/18/19 19:00 70 14 100/52 (68) 100 Status: awake Lungs: rhonchi - scant Heart: HR/BP stable Abdomen: soft, non-tender Extremities: edema Critical Care - Subjective Condition: critical, improving EKG Rhythm: Sinus Rhythm FI02: 45 Vent Support Breath Rate: 14 Vent Support Mode: CPAP Vent Tidal Volume: 500 Sputum Amount: None PEEP: 5.0 PIP: 13 Tube Feeding Amount: 60 I&O: Intake and Output 07/18/19 07/19/19 19:00 07:00 Intake Total 895 ml 1180 ml Output Total 965 ml 590 ml Balance -70 ml 590 ml Intake Free Water 50 ml IV Total 355 ml 410 ml Tube Feeding 540 ml 720 ml Output Urine Total 965 ml 590 ml Subjective: on vent cpap 5 ps 8 today tv 400 rr 20 comfortable no cxr for 2 days with last read of 'worsenign" infiltrates on [place] left unable to view film ABG noted she is awake and follows commands, simple ET-Tube: 8.0 ET Position: 21 Labs: Current Medications Medications (Trade) Dose Ordered Sig/Sandeep Route PRN Reason Start Time Stop Time Status Last Admin Dose Admin Acetaminophen (Tylenol) 650 mg Q6H PRN GT Mild Pain/Temp > 100.5 07/19/19 15:30 08/11/19 12:29 Acetylcysteine (Mucomyst) 200 mg Q6HRT HHN 07/17/19 19:00 08/16/19 18:59 07/19/19 13:19 Albuterol/ Ipratropium (Albuterol/ Ipratropium) 3 ml Q4H PRN HHN Shortness of Breath 07/17/19 15:00 07/22/19 14:59 Albuterol/ Ipratropium (Albuterol/ Ipratropium) 3 ml Q6HRT HHN 07/16/19 19:00 07/21/19 18:59 07/19/19 13:19 Apixaban (Eliquis) 5 mg BID GT 07/19/19 18:00 08/11/19 08:59 07/19/19 18:07 Chlorhexidine Gluconate (Debora-Hex 2%) 1 applic DAILY@2000 TOPIC 07/14/19 20:00 08/13/19 19:59 07/18/19 21:10 Famotidine (Pepcid) 20 mg BID GT 07/19/19 18:00 08/18/19 17:59 07/19/19 18:06 Linezolid 300 ml @ 300 mls/hr Q12HR IVPB 07/16/19 21:00 07/23/19 20:59 07/19/19 08:52 Meropenem 1 gm/ Sodium Chloride 55 ml @ 110 mls/hr Q8HR IVPB 07/13/19 15:00 07/26/19 23:59 07/19/19 14:25 Sennosides (Senokot) 8.6 mg BID GT 07/19/19 18:00 08/11/19 08:59 07/19/19 18:06 Laboratory Tests Test 07/19/19 04:00 07/19/19 09:00 White Blood Count 12.5 K/UL (4.8-10.8) H Red Blood Count 4.50 M/UL (4.20-5.40) Hemoglobin 9.3 G/DL (12.0-16.0) L Hematocrit 30.4 % (37.0-47.0) L Mean Corpuscular Volume 68 FL (80-99) L Mean Corpuscular Hemoglobin 20.6 PG (27.0-31.0) L Mean Corpuscular Hemoglobin Concent 30.5 G/DL (32.0-36.0) L Red Cell Distribution Width 17.2 % (11.6-14.8) H Platelet Count 355 K/UL (150-450) Mean Platelet Volume 5.5 FL (6.5-10.1) L Neutrophils (%) (Auto) 77.1 % (45.0-75.0) H Lymphocytes (%) (Auto) 14.1 % (20.0-45.0) L Monocytes (%) (Auto) 5.2 % (1.0-10.0) Eosinophils (%) (Auto) 3.1 % (0.0-3.0) H Basophils (%) (Auto) 0.4 % (0.0-2.0) Sodium Level 136 MMOL/L (136-145) Potassium Level 3.4 MMOL/L (3.5-5.1) L Chloride Level 100 MMOL/L (98-107) Carbon Dioxide Level 27 MMOL/L (21-32) Blood Urea Nitrogen 18 mg/dL (7-18) Creatinine 0.4 MG/DL (0.55-1.30) L Estimat Glomerular Filtration Rate > 60 mL/min (>60) Glucose Level 168 MG/DL (74-106) H Calcium Level 8.8 MG/DL (8.5-10.1) Total Bilirubin 0.2 MG/DL (0.2-1.0) Aspartate Amino Transf (AST/SGOT) 9 U/L (15-37) L Alanine Aminotransferase (ALT/SGPT) 13 U/L (12-78) Alkaline Phosphatase 77 U/L (46-116) Total Protein 8.0 G/DL (6.4-8.2) Albumin 2.7 G/DL (3.4-5.0) L Globulin 5.3 g/dL Albumin/Globulin Ratio 0.5 (1.0-2.7) L Arterial Blood pH 7.427 (7.350-7.450) Arterial Blood Partial Pressure CO2 45.0 mmHg (35.0-45.0) Arterial Blood Partial Pressure O2 87.7 mmHg (75.0-100.0) Arterial Blood HCO3 29.0 mmol/L (22.0-26.0) H Arterial Blood Oxygen Saturation 96.0 % (95-100) Arterial Blood Base Excess 4.1 (-2-2) H Gerard Test Positive Clara Billingsley DO Jul 19, 2019 18:18
--- NOTE | 2019-07-19 19:16 | NUR ---
Dr Billingsley reviewed CXR images with RAD team on the unit and decided pt may be extubated now. Hailey RT notified and orders placed for extubation.
--- NOTE | 2019-07-19 19:22 | NUR ---
HAND-OFF: Report given to EMMA Walsh. Pt in stable condition and tolerated CPAP all day, ready for extubation.
--- NOTE | 2019-07-19 19:23 | NUR ---
NURSE NOTES: Received patient from EMMA Manriquez. Will continue plan of care.
--- NOTE | 2019-07-19 20:00 | NUR ---
NURSE NOTES: Patient is awake, alert and oriented x3. Orders from MD to OK extubation and patient was extubated by RT around 1949. Currently placed on nasal cannula of 3L; tolerating well with O2 saturation of 93%, able to speak a bit. Remains on left nares NGT running Jevity @ 60ml/hr. Suprapubic catheter patent and draining well. Vital signs are stable. Bed low, locked and alarm is on. Will continue plan of care.
--- NOTE | 2019-07-19 20:06 | NUR ---
Patient received on CPAP 5 PS 10 FiO2 .45 which she's been on since 8:00 am. Weaning parameters and ABG done which were all within normal limits. DR. Torres seen patient at shift change and ordered to extubate pt. FiO2 titrated down to .35 and breathing tx given, extubated patient right after. Patient awake and responsive has a good cough, no stridor noted placed on 3l NC tolerating well with SpO2 of 97%. Bipap was ordered for prn use. Will continue to monitor.
[2019-07-19] MEDS: Dyna-Hex 2% Top Sol 2oz TOPIC SCH (20:16)
--- NOTE | 2019-07-19 20:31 | Infectious Diseases Prog Note ---
Assessment/Plan Problems: (1) Pneumonia of both lower lobes Assessment & Plan: possible aspiration related, S/P intubation and bronchoscopy with BAL . with improvement in her oxygen level , responded to meropenem coverage , sputum culture grew normal respiratory sunny . will treat with meropenem for two weeks total . aspiration precaution, monitor CXR as per pulmonary (2) Catheter-associated urinary tract infection Assessment & Plan: with MDR pseudomonas aeruginosa , ESBL producing E coli and Enterococcus Faecalis vancomycin resistant , continue zyvox and meropenem for total of two weeks , continue local catheter care, recommend to change the suprapubic catheter if not done yet. D/W nurse (3) Sepsis Assessment & Plan: ruled out with negative blood culture x 2, already on wide spectrum antibiotics for pneumonia and CAUTI coverage (4) Decubitus skin ulcer Assessment & Plan: of the sacrum, continue off loading and local wound care as per hospital protocol (5) Respiratory failure with hypoxia Assessment & Plan: due to the above, with CO2 retention S/P intubation on mechanical ventilation , failing weaning trials , monitor ABG and CXR , pulmonary is following (6) Spina bifida Subjective ROS Limited/Unobtainable: Yes Allergies: Coded Allergies: PENICILLIN G (Verified Allergy, Unknown, 12/02/18) Tolerates cabapenem, cephalosporin PENICILLINS (Unverified Allergy, Unknown, 12/02/18) Subjective she was comfortable lying in bed, still intubated on mechanical ventilation , awake and responsive . no fever or chills today , no secretions . no diarrhea . mild oral thrush Objective Vital Signs Last 24 Hour Vital Signs Date Time Temp Pulse Resp B/P (MAP) Pulse Ox O2 Delivery O2 Flow Rate FiO2 07/19/19 20:16 97 Nasal Cannula 3.0 32 07/19/19 20:00 3.0 07/19/19 19:55 Nasal Cannula 3.0 32 07/19/19 19:25 87 19 100 Mechanical Ventilator 35 88 21 35 07/19/19 19:00 82 18 117/55 (75) 100 07/19/19 18:00 92 24 114/61 (78) 100 07/19/19 17:23 100 07/19/19 17:19 94 28 45 07/19/19 17:00 79 26 106/89 (95) 100 07/19/19 16:00 45 07/19/19 16:00 Mechanical Ventilator Mechanical Ventilator Mechanical Ventilator Mechanical Ventilator 07/19/19 16:00 100 07/19/19 16:00 97.4 96 24 125/48 (73) 95 07/19/19 15:09 94 25 45 07/19/19 15:00 96 23 114/57 (76) 98 07/19/19 14:00 98 23 122/66 (84) 99 07/19/19 13:20 87 23 100 Mechanical Ventilator 45 79 24 45 07/19/19 13:00 90 22 124/80 (95) 100 07/19/19 12:00 98.6 88 19 123/56 (78) 100 07/19/19 12:00 Mechanical Ventilator Mechanical Ventilator Mechanical Ventilator Mechanical Ventilator 07/19/19 12:00 90 07/19/19 11:11 45 07/19/19 11:00 89 19 134/76 (95) 100 07/19/19 10:47 92 26 45 07/19/19 10:00 86 23 145/77 (99) 100 07/19/19 09:00 85 23 113/53 (73) 100 07/19/19 08:57 45 07/19/19 08:42 67 14 45 45 07/19/19 08:00 97.5 84 16 119/70 (86) 100 07/19/19 08:00 84 07/19/19 08:00 45 07/19/19 08:00 Mechanical Ventilator Mechanical Ventilator Mechanical Ventilator Mechanical Ventilator 07/19/19 07:01 67 14 100 Mechanical Ventilator 45 71 14 45 07/19/19 07:00 69 14 98/68 (78) 100 07/19/19 06:35 77 16 07/19/19 06:00 74 14 109/58 (75) 100 07/19/19 05:00 80 16 45 07/19/19 05:00 73 17 96/45 (62) 99 07/19/19 04:00 77 07/19/19 04:00 40 07/19/19 04:00 98.9 75 16 106/61 (76) 100 07/19/19 04:00 Mechanical Ventilator 07/19/19 03:06 84 15 45 07/19/19 03:00 85 17 116/53 (74) 99 07/19/19 02:00 68 15 133/59 (83) 100 07/19/19 01:17 62 15 100 Mechanical Ventilator 45 60 14 45 07/19/19 01:00 60 14 113/54 (73) 100 07/19/19 00:00 40 07/19/19 00:00 70 07/19/19 00:00 Mechanical Ventilator 07/19/19 00:00 99.0 85 17 113/75 (88) 99 07/18/19 23:01 80 14 45 07/18/19 23:00 78 15 118/58 (78) 100 07/18/19 22:00 84 16 111/67 (82) 100 07/18/19 21:07 86 16 45 07/18/19 21:00 88 15 117/60 (79) 99 Height (Feet): 4 Height (Inches): 10.00 Weight (Pounds): 141 General Appearance: WD/WN, no acute distress HEENT: normocephalic, atraumatic, anicteric, mucous membranes moist, PERRL Respiratory/Chest: chest wall non-tender, no respiratory distress, no accessory muscle use, decreased breath sounds, crackles/rales Cardiovascular: normal peripheral pulses, normal rate, regular rhythm, no gallop/murmur, no JVD Abdomen: normal bowel sounds, soft, non tender, no organomegaly, non distended , no mass, no scars Genitourinary: normal external genitalia Extremities: no cyanosis, no clubbing Skin: no rash, no lesions, no ulcers Neurologic/Psychiatric: first breaker feeder II-XII grossly normal, alert, responsive Laboratory Tests Test 07/19/19 04:00 07/19/19 09:00 White Blood Count 12.5 K/UL (4.8-10.8) H Red Blood Count 4.50 M/UL (4.20-5.40) Hemoglobin 9.3 G/DL (12.0-16.0) L Hematocrit 30.4 % (37.0-47.0) L Mean Corpuscular Volume 68 FL (80-99) L Mean Corpuscular Hemoglobin 20.6 PG (27.0-31.0) L Mean Corpuscular Hemoglobin Concent 30.5 G/DL (32.0-36.0) L Red Cell Distribution Width 17.2 % (11.6-14.8) H Platelet Count 355 K/UL (150-450) Mean Platelet Volume 5.5 FL (6.5-10.1) L Neutrophils (%) (Auto) 77.1 % (45.0-75.0) H Lymphocytes (%) (Auto) 14.1 % (20.0-45.0) L Monocytes (%) (Auto) 5.2 % (1.0-10.0) Eosinophils (%) (Auto) 3.1 % (0.0-3.0) H Basophils (%) (Auto) 0.4 % (0.0-2.0) Sodium Level 136 MMOL/L (136-145) Potassium Level 3.4 MMOL/L (3.5-5.1) L Chloride Level 100 MMOL/L (98-107) Carbon Dioxide Level 27 MMOL/L (21-32) Blood Urea Nitrogen 18 mg/dL (7-18) Creatinine 0.4 MG/DL (0.55-1.30) L Estimat Glomerular Filtration Rate > 60 mL/min (>60) Glucose Level 168 MG/DL (74-106) H Calcium Level 8.8 MG/DL (8.5-10.1) Total Bilirubin 0.2 MG/DL (0.2-1.0) Aspartate Amino Transf (AST/SGOT) 9 U/L (15-37) L Alanine Aminotransferase (ALT/SGPT) 13 U/L (12-78) Alkaline Phosphatase 77 U/L (46-116) Total Protein 8.0 G/DL (6.4-8.2) Albumin 2.7 G/DL (3.4-5.0) L Globulin 5.3 g/dL Albumin/Globulin Ratio 0.5 (1.0-2.7) L Arterial Blood pH 7.427 (7.350-7.450) Arterial Blood Partial Pressure CO2 45.0 mmHg (35.0-45.0) Arterial Blood Partial Pressure O2 87.7 mmHg (75.0-100.0) Arterial Blood HCO3 29.0 mmol/L (22.0-26.0) H Arterial Blood Oxygen Saturation 96.0 % (95-100) Arterial Blood Base Excess 4.1 (-2-2) H Gerard Test Positive Current Medications Medications (Trade) Dose Ordered Sig/Sandeep Route PRN Reason Start Time Stop Time Status Last Admin Dose Admin Acetaminophen (Tylenol) 650 mg Q6H PRN GT Mild Pain/Temp > 100.5 07/19/19 15:30 08/11/19 12:29 Acetylcysteine (Mucomyst) 200 mg Q6HRT HHN 07/17/19 19:00 08/16/19 18:59 07/19/19 19:29 Albuterol/ Ipratropium (Albuterol/ Ipratropium) 3 ml Q4H PRN [facility] Shortness of Breath 07/17/19 15:00 07/22/19 14:59 Albuterol/ Ipratropium (Albuterol/ Ipratropium) 3 ml Q6HRT HHN 07/16/19 19:00 07/21/19 18:59 07/19/19 19:29 Apixaban (Eliquis) 5 mg BID GT 07/19/19 18:00 08/11/19 08:59 07/19/19 18:07 Chlorhexidine Gluconate (Debora-Hex 2%) 1 applic DAILY@2000 TOPIC 07/14/19 20:00 08/13/19 19:59 07/19/19 20:16 Famotidine (Pepcid) 20 mg BID GT 07/19/19 18:00 08/18/19 17:59 07/19/19 18:06 Linezolid 300 ml @ 300 mls/hr Q12HR IVPB 07/16/19 21:00 07/23/19 20:59 07/19/19 20:16 Meropenem 1 gm/ Sodium Chloride 55 ml @ 110 mls/hr Q8HR IVPB 07/13/19 15:00 07/26/19 23:59 07/19/19 14:25 Sennosides (Senokot) 8.6 mg BID GT 07/19/19 18:00 08/11/19 08:59 07/19/19 18:06 Gigi Sanabria M.D. Jul 19, 2019 20:31
--- NOTE | 2019-07-19 22:00 | NUR ---
NURSE NOTES: Patient is stable and tolerating the nasal cannula at 3L well. O2 sat 92%. She is also able to ask for help and speak more. Family members at bedside.
[2019-07-20] VITALS (14 sets, daily range): BP systolic 84–150; BP diastolic 58–85
--- NOTE | 2019-07-20 | NUR ---
NURSE NOTES: Patient is awake and alert x3. Bed bath and linen change provided. Wound care pictures are taken and dressings are placed. Patient is stable and tolerating nasal cannula at 3L well O2 saturating at 96%. Turned and repositioned. Patient states she feels better. Will continue plan of care.
[2019-07-20] MEDS: Albuterol/Ipratropium 3ml neb HHN SCH ×4 (01:56→19:18)
[2019-07-20] MEDS: Acetylcysteine 20% Soln 4ml HHN SCH ×4 (01:56→19:18)
--- NOTE | 2019-07-20 02:00 | NUR ---
NURSE NOTES: Patient is stable. Nasal suctioning provided for congestion. Patient is also seen trying to take off the respiratory treatment mask and refuses it. Nasal cannula at 3L place back.
--- NOTE | 2019-07-20 04:00 | NUR ---
NURSE NOTES: Patient is stable and sleeping. Remains on nasal cannula at 3L O2 saturating at 97%. No changes in patient condition.
[2019-07-20] MEDS: Meropenem 1 GM in NS 55 ML IVPB SCH ×3 (05:50→22:14)
--- NOTE | 2019-07-20 06:00 | NUR ---
NURSE NOTES: Patient is sleeping comfortably. Doing well on nasal cannula at 3L and saturating 98%. Vital signs are stable, no change in condition.
--- NOTE | 2019-07-20 07:10 | NUR ---
HAND-OFF: Report given to EMMA Manriquez.
--- NOTE | 2019-07-20 07:15 | NUR ---
Report received from EMMA Walsh and given to EMMA Romo.
--- NOTE | 2019-07-20 07:56 | NUR ---
NURSE NOTES: Received report from EMMA Manriquez. Patient awake and alert, oriented x3. On O2 4L/min via NC and O2 sat 94% on the monitor. NGT intact and running with Jevity 1.2 @ 60ml/hr. Suprapubic cath intact and draining with yellow color urine. Left upper arm PICC intact and clean with TKO. Kept dry, clean, comfortable and HOB>30. Will continue plan of care.
--- NOTE | 2019-07-20 08:43 | NUR ---
NURSE NOTES: Seen by Dr. Neri and assessed patient. New orders read back and confirmed by
[2019-07-20] MEDS: Sennosides 8.6mg tab GT SCH ×2 (08:55→17:54)
[2019-07-20] MEDS: Eliquis 5mg tablet GT SCH ×2 (08:56→17:54)
--- NOTE | 2019-07-20 10:14 | General Progress Note ---
Assessment/Plan Status: stable Assessment/Plan: S, O: Extubated, awake, is following command, seems comfortable PHYSICAL EXAMINATION:HEAD AND NECK: awake , Atraumatic, normocephalic. CHEST: Diffuse bronchial breathing sounds. No wheezing.HEART: S1, S2. Regular rate and rhythm. ABDOMEN: Obese, positive for suprapubic catheter.MUSCULOSKELETAL: The atrophy of the lower extremities, paraplegia are noted.NEUROLOGY: The patient is Intubated, limited eval Medication and LABORATORY AND DIAGNOSTIC DATA: Dated July 19 reviewed ASSESSMENT AND PLAN: 1.VDRF, post extubation 2. Sepsis - healthcare associated. 3. Pneumonia, healthcare associated. 3. UTI - healthcare associated. 4. Congenital abnormalities, spina bifida, paraplegic, wheelchair-bound. 5. On New oral anticoagulation 6. GI and DVT prophylaxis. PLAN OF CARE: Current Pulmonary and ID care S/P Bronch, pending cultures Notes from ID Pulmonary reviewed Stable WBC counts, afebrile, D/w Rn at bed side for following items: extraction of NG tube, ok to transfer to [facility], Asp precaution I spent 60 minutes in direct patient care. Subjective Allergies: Coded Allergies: PENICILLIN G (Verified Allergy, Unknown, 12/02/18) Tolerates cabapenem, cephalosporin PENICILLINS (Unverified Allergy, Unknown, 12/02/18) Objective Last 24 Hour Vital Signs Date Time Temp Pulse Resp B/P (MAP) Pulse Ox O2 Delivery O2 Flow Rate FiO2 07/20/19 08:00 4.0 07/20/19 08:00 Nasal Cannula 4.0 07/20/19 07:05 116 20 98 Nasal Cannula 3.0 32 101 19 93 07/20/19 07:00 118 25 111/69 (83) 94 07/20/19 06:55 93 Nasal Cannula 3.0 32 07/20/19 06:00 113 20 112/79 (90) 93 07/20/19 05:00 109 21 84/58 (67) 93 07/20/19 04:00 98.8 107 21 112/70 (84) 98 07/20/19 04:00 3.0 07/20/19 03:00 101 20 105/65 (78) 95 07/20/19 02:59 110 07/20/19 02:00 113 21 135/78 (97) 93 07/20/19 01:57 113 18 98 Nasal Cannula 106 19 96 07/20/19 01:00 101 21 105/67 (80) 95 07/20/19 00:00 98.0 99 20 113/83 (93) 100 07/19/19 23:17 104 07/19/19 23:00 105 22 122/79 (93) 93 07/19/19 22:00 105 23 116/68 (84) 90 07/19/19 21:00 102 21 112/62 (79) 92 07/19/19 20:16 97 Nasal Cannula 3.0 32 07/19/19 20:00 98.3 108 20 96/53 (67) 96 07/19/19 20:00 3.0 07/19/19 19:55 Nasal Cannula 3.0 32 07/19/19 19:39 93 07/19/19 19:25 87 19 100 Mechanical Ventilator 35 88 21 35 07/19/19 19:00 82 18 117/55 (75) 100 07/19/19 18:00 92 24 114/61 (78) 100 07/19/19 17:23 100 07/19/19 17:19 94 28 45 07/19/19 17:00 79 26 106/89 (95) 100 07/19/19 16:00 45 07/19/19 16:00 Mechanical Ventilator Mechanical Ventilator Mechanical Ventilator Mechanical Ventilator 07/19/19 16:00 100 07/19/19 16:00 97.4 96 24 125/48 (73) 95 07/19/19 15:09 94 25 45 07/19/19 15:00 96 23 114/57 (76) 98 07/19/19 14:00 98 23 122/66 (84) 99 07/19/19 13:20 87 23 100 Mechanical Ventilator 45 79 24 45 07/19/19 13:00 90 22 124/80 (95) 100 07/19/19 12:00 98.6 88 19 123/56 (78) 100 07/19/19 12:00 Mechanical Ventilator Mechanical Ventilator Mechanical Ventilator Mechanical Ventilator 07/19/19 12:00 90 07/19/19 11:11 45 07/19/19 11:00 89 19 134/76 (95) 100 07/19/19 10:47 92 26 45 Intake and Output 07/19/19 07/20/19 19:00 07:00 Intake Total 1125 ml 1240 ml Output Total 1875 ml 1900 ml Balance -750 ml -660 ml Intake Free Water 50 ml IV Total 355 ml 520 ml Tube Feeding 720 ml 720 ml Output Urine Total 1875 ml 1900 ml Height (Feet): 4 Height (Inches): 10.00 Weight (Pounds): 142 Denise Neri MD Jul 20, 2019 10:14
--- NOTE | 2019-07-20 10:20 | NUR ---
NURSE NOTES: Oral suction provided and repositioned patient.
--- NOTE | 2019-07-20 12:10 | NUR ---
TRANSFER TO FLOOR: Patient transferred to [facility] via hospital bed. Report given to Walker/Charge nurse. No belongings. Patient is on O2 3L/min via NC. No distress/SOB noted. Patient kody any pain/discomfort. Endorsed plan of care.
--- NOTE | 2019-07-20 12:38 | Infectious Diseases Prog Note ---
Assessment/Plan Problems: (1) Pneumonia of both lower lobes Assessment & Plan: possible aspiration related, S/P extubation and bronchoscopy with BAL . responded to meropenem coverage , sputum culture grew normal respiratory sunny . will treat with meropenem for two weeks total . aspiration precaution, monitor CXR as per pulmonary (2) Catheter-associated urinary tract infection Assessment & Plan: with MDR pseudomonas aeruginosa , ESBL producing E coli and Enterococcus Faecalis vancomycin resistant , continue zyvox and meropenem for total of two weeks , continue local catheter care, recommend to change the suprapubic catheter if not done yet. D/W nurse (3) Sepsis Assessment & Plan: ruled out with negative blood culture x 2, already on wide spectrum antibiotics for pneumonia and CAUTI coverage (4) Decubitus skin ulcer Assessment & Plan: of the sacrum, continue off loading and local wound care as per hospital protocol (5) Respiratory failure with hypoxia Assessment & Plan: due to the above, with CO2 retention S/P intubation on mechanical ventilation , failing weaning trials , monitor ABG and CXR , pulmonary is following (6) Spina bifida Subjective Constitutional: Reports: no symptoms HEENT: Reports: no symptoms Respiratory: Reports: dry cough Breasts: Reports: no symptoms Cardiovascular: Reports: no symptoms Gastrointestinal/Abdominal: Reports: no symptoms Genitourinary: Reports: no symptoms Neurologic: Reports: no symptoms Psychiatric: Reports: no symptoms Skin: Reports: ulcer Endocrine: Reports: no symptoms Hematologic: Reports: no symptoms Musculoskeletal: Reports: no symptoms Allergies: Coded Allergies: PENICILLIN G (Verified Allergy, Unknown, 12/02/18) Tolerates cabapenem, cephalosporin PENICILLINS (Unverified Allergy, Unknown, 12/02/18) Subjective she was comfortable lying in bed, still intubated on mechanical ventilation , awake and responsive . no fever or chills today , no secretions . no diarrhea . mild oral thrush Objective Vital Signs Last 24 Hour Vital Signs Date Time Temp Pulse Resp B/P (MAP) Pulse Ox O2 Delivery O2 Flow Rate FiO2 07/20/19 12:00 3.0 07/20/19 11:00 100 20 126/83 (97) 99 07/20/19 10:00 100 20 128/71 (90) 98 07/20/19 09:00 106 21 112/71 (85) 94 07/20/19 08:00 98.2 104 22 120/68 (85) 96 07/20/19 08:00 109 07/20/19 08:00 4.0 07/20/19 08:00 Nasal Cannula 4.0 07/20/19 07:05 116 20 98 Nasal Cannula 3.0 32 101 19 93 07/20/19 07:00 118 25 111/69 (83) 94 07/20/19 06:55 93 Nasal Cannula 3.0 32 07/20/19 06:00 113 20 112/79 (90) 93 07/20/19 05:00 109 21 84/58 (67) 93 07/20/19 04:00 98.8 107 21 112/70 (84) 98 07/20/19 04:00 3.0 07/20/19 03:00 101 20 105/65 (78) 95 07/20/19 02:59 110 07/20/19 02:00 113 21 135/78 (97) 93 07/20/19 01:57 113 18 98 Nasal Cannula 106 19 96 07/20/19 01:00 101 21 105/67 (80) 95 07/20/19 00:00 98.0 99 20 113/83 (93) 100 07/19/19 23:17 104 07/19/19 23:00 105 22 122/79 (93) 93 07/19/19 22:00 105 23 116/68 (84) 90 07/19/19 21:00 102 21 112/62 (79) 92 07/19/19 20:16 97 Nasal Cannula 3.0 32 07/19/19 20:00 98.3 108 20 96/53 (67) 96 07/19/19 20:00 3.0 07/19/19 19:55 Nasal Cannula 3.0 32 07/19/19 19:39 93 07/19/19 19:25 87 19 100 Mechanical Ventilator 35 88 21 35 07/19/19 19:00 82 18 117/55 (75) 100 07/19/19 18:00 92 24 114/61 (78) 100 07/19/19 17:23 100 07/19/19 17:19 94 28 45 07/19/19 17:00 79 26 106/89 (95) 100 07/19/19 16:00 45 07/19/19 16:00 Mechanical Ventilator Mechanical Ventilator Mechanical Ventilator Mechanical Ventilator 07/19/19 16:00 100 07/19/19 16:00 97.4 96 24 125/48 (73) 95 07/19/19 15:09 94 25 45 07/19/19 15:00 96 23 114/57 (76) 98 07/19/19 14:00 98 23 122/66 (84) 99 07/19/19 13:20 87 23 100 Mechanical Ventilator 45 79 24 45 07/19/19 13:00 90 22 124/80 (95) 100 Height (Feet): 4 Height (Inches): 10.00 Weight (Pounds): 142 General Appearance: WD/WN, no acute distress HEENT: normocephalic, atraumatic, anicteric, mucous membranes moist, EOMI, pharynx normal, supple Respiratory/Chest: chest wall non-tender, no respiratory distress, no accessory muscle use, decreased breath sounds, crackles/rales Cardiovascular: normal peripheral pulses, normal rate, regular rhythm, no gallop/murmur, no JVD Abdomen: normal bowel sounds, soft, non tender, no organomegaly, non distended , no mass, no scars Genitourinary: normal external genitalia Extremities: no cyanosis, no clubbing Skin: no rash, no lesions Neurologic/Psychiatric: alert, responsive Lymphatic: no neck adenopathy, no groin adenopathy Musculoskeletal: normal muscle bulk, no effusion Current Medications Medications (Trade) Dose Ordered Sig/Sandeep Route PRN Reason Start Time Stop Time Status Last Admin Dose Admin Acetaminophen (Tylenol) 650 mg Q6H PRN GT Mild Pain/Temp > 100.5 07/19/19 15:30 08/11/19 12:29 Acetylcysteine (Mucomyst) 200 mg Q6HRT N 07/17/19 19:00 08/16/19 18:59 07/20/19 06:55 Albuterol/ Ipratropium (Albuterol/ Ipratropium) 3 ml Q4H PRN HHN Shortness of Breath 07/17/19 15:00 07/22/19 14:59 Albuterol/ Ipratropium (Albuterol/ Ipratropium) 3 ml Q6HRT N 07/16/19 19:00 07/21/19 18:59 07/20/19 06:55 Apixaban (Eliquis) 5 mg BID GT 07/19/19 18:00 08/11/19 08:59 07/20/19 08:56 Chlorhexidine Gluconate (Debora-Hex 2%) 1 applic DAILY@2000 TOPIC 07/14/19 20:00 08/13/19 19:59 07/19/19 20:16 Famotidine (Pepcid) 20 mg BID GT 07/19/19 18:00 08/18/19 17:59 07/20/19 08:55 Linezolid 300 ml @ 300 mls/hr Q12HR IVPB 07/16/19 21:00 07/23/19 20:59 07/20/19 08:56 Meropenem 1 gm/ Sodium Chloride 55 ml @ 110 mls/hr Q8HR IVPB 07/13/19 15:00 07/26/19 23:59 07/20/19 05:50 Sennosides (Senokot) 8.6 mg BID GT 07/19/19 18:00 08/11/19 08:59 07/20/19 08:55 Gigi Sanabria M.D. Jul 20, 2019 12:38
[2019-07-20] MEDS ORDERED: Acetaminophen 650mg/20.3ml GT PRN (12:44)
--- NOTE | 2019-07-20 13:20 | NUR ---
RESPIRATORY NOTE: Manually administered Mucomyst 20% and Duoneb because the scanner doesn't work.
--- NOTE | 2019-07-20 13:52 | NUR ---
RD ASSESSMENT & RECOMMENDATIONS SEE CARE ACTIVITY FOR COMPLETE ASSESSMENT DAILY ESTIMATED NEEDS: Needs based on wound, critical care/ 47.6kg abw 25-30 kcals/kg 4672-8325 total kcals 1.25-2 g protein/kg 60-95 g total protein 25-30 mL/kg 6124-7141 total fluid mLs NUTRITION DIAGNOSIS: * Increased kcal/pro needs r/t wound healing as evidenced by h/o spina bifida, adm w/ full thickness wound @ sacrum and resolving pressure injury @ R-ischium. * Swallowing difficulty R/T respiratory status as evidenced by orally intubated, on NGT feeding. (CURRENT TF: Jevity 1.2 @ 45ml/hr x 24 hrs) PO DIET RECOMMENDATIONS: DAY HABILITATION SPECIALIST eval post extubation ENTERAL NUTRITION RECOMMENDATIONS: Glucerna 1.2 @ 45ml/hr x24 hrs to provide 1080ml, 1296kcal, 65g prot, 869ml free water - Rec TF change to Glucerna 1.2 for GLYCEMIC CONTROL. - Start @25ml/hr for 6 hrs, advance as tolerated 10ml/hr q4-6 hrs to goal. - HOB over 30 degrees/ water flush of 140ml q 6hrs - TF at goal meets 100% est kcal and pro needs: ADDITIONAL RECOMMENDATIONS: 1) Wound care: add GREGG in 4oz H2O BID via NGT Add VIT C 500mg daily 2) Maintain calibrated bed scale wts 3) NISS for BG control on TF 4) F/up w/ DAY HABILITATION SPECIALIST eval for oral diet -> REC CCHO LOW . .
--- NOTE | 2019-07-20 18:40 | Pulmonolgy Critical Care Note ---
Critical Care - Asmt/Plan Assessment/Plan: (1) Pneumonia of both lower lobes Assessment & Plan: VDRF, intubated 07/12/19, S/P FOB 07/12/19 (2) Catheter-associated urinary tract infection Assessment & Plan: PsA and proteus (3) Respiratory failure with hypoxia Assessment & Plan: Acute on chronic hypercapnic and hypoxemic RF 2/2 PNA VDRF as able Duplex neg, minimally elevated d-dimer, unlikely VTE and already on a NOAC (4) HCAP (healthcare-associated pneumonia) (5) Paraplegia (6) Sepsis (7) Suprapubic catheter (8) Restrictive lung disease due to kyphoscoliosis (9) Decubitus skin ulcer (10) Spina bifida Respiratory: monitor respiratory rate, adjust FIO2, weaning trial - SBT in am, other - DUOnebs and NAC, if cxr improved and abg stable in am will extubate in am Cardiac: continue to monitor HR/BP Renal: F/U I&O, other - lasix 20 IV x 1 Infectious Disease: continue antibiotics - OTILIA/Zyvox Gastrointestinal: continue feedings/current rate - NGTF's, hold in am for SBT Endocrine: monitor blood sugar Hematologic: monitor H/H Neurologic: keep patient comfortable Prophylaxis: Protonix, other - Eliquis Disposition: keep in ICU Time Spent (Minutes): other - 35 Notes Reviewed: manager user interface, ID Discussed with: nurses, consultants, other - FC, continue to discuss GOC ordered bipap 18/5 qhs and prn distress added nt suction q 4 nebs q 4 cxr in am prn abgf ontinue o2 needs swallow Respiratory: CXR Cardiac: continue to monitor HR/BP Infectious Disease: continue antibiotics Prophylaxis: Protonix Time Spent (Minutes): 40 Notes Reviewed: manager user interface, renal Discussed with: nurses Critical Care - Objective Last 24 Hour Vital Signs Date Time Temp Pulse Resp B/P (MAP) Pulse Ox O2 Delivery O2 Flow Rate FiO2 07/20/19 16:00 Nasal Cannula 3.0 07/20/19 16:00 3.0 07/20/19 16:00 95 07/20/19 16:00 99 07/20/19 13:35 76 20 100 Nasal Cannula 3.0 32 73 21 97 07/20/19 12:00 3.0 07/20/19 12:00 Nasal Cannula 3.0 07/20/19 12:00 95 07/20/19 12:00 95 20 129/75 (93) 94 07/20/19 11:00 100 20 126/83 (97) 99 07/20/19 10:00 100 20 128/71 (90) 98 07/20/19 09:00 106 21 112/71 (85) 94 07/20/19 08:00 98.2 104 22 120/68 (85) 96 07/20/19 08:00 109 07/20/19 08:00 4.0 07/20/19 08:00 Nasal Cannula 4.0 07/20/19 07:05 116 20 98 Nasal Cannula 3.0 32 101 19 93 07/20/19 07:00 118 25 111/69 (83) 94 07/20/19 06:55 93 Nasal Cannula 3.0 32 07/20/19 06:00 113 20 112/79 (90) 93 07/20/19 05:00 109 21 84/58 (67) 93 07/20/19 04:00 98.8 107 21 112/70 (84) 98 07/20/19 04:00 3.0 07/20/19 03:00 101 20 105/65 (78) 95 07/20/19 02:59 110 07/20/19 02:00 113 21 135/78 (97) 93 07/20/19 01:57 113 18 98 Nasal Cannula 106 19 96 07/20/19 01:00 101 21 105/67 (80) 95 07/20/19 00:00 98.0 99 20 113/83 (93) 100 07/19/19 23:17 104 07/19/19 23:00 105 22 122/79 (93) 93 07/19/19 22:00 105 23 116/68 (84) 90 07/19/19 21:00 102 21 112/62 (79) 92 07/19/19 20:16 97 Nasal Cannula 3.0 32 07/19/19 20:00 98.3 108 20 96/53 (67) 96 07/19/19 20:00 3.0 07/19/19 19:55 Nasal Cannula 3.0 32 07/19/19 19:39 93 07/19/19 19:25 87 19 100 Mechanical Ventilator 35 88 21 35 07/19/19 19:00 82 18 117/55 (75) 100 Status: awake Condition: improving Lungs: rhonchi Heart: HR/BP stable Abdomen: soft, non-tender Extremities: edema Critical Care - Subjective ROS Limited/Unobtainable: Yes Condition: improving FI02: 32 Vent Support Breath Rate: 14 Vent Support Mode: CPAP Vent Tidal Volume: 500 Sputum Amount: None PEEP: 5.0 PIP: 13 Tube Feeding Amount: 45 I&O: Intake and Output 07/19/19 07/20/19 19:00 07:00 Intake Total 1125 ml 1240 ml Output Total 1875 ml 1900 ml Balance -750 ml -660 ml Intake Free Water 50 ml IV Total 355 ml 520 ml Tube Feeding 720 ml 720 ml Output Urine Total 1875 ml 1900 ml Subjective: extuated and toelrated transferred to tele cxr yesterday reviewed prior to extubation today with se;cretions and difficulty expectorating also states sh suese bipap 18/5 at home which was not ordered upon transfer ET-Tube: 8.0 ET Position: 21 Labs: Current Medications Medications (Trade) Dose Ordered Sig/Sandeep Route PRN Reason Start Time Stop Time Status Last Admin Dose Admin Acetaminophen (Tylenol) 650 mg Q6H PRN GT Mild Pain/Temp > 100.5 07/20/19 12:44 08/11/19 12:43 Acetylcysteine (Mucomyst) 200 mg Q6HRT [facility] 07/20/19 13:00 08/16/19 18:59 07/20/19 13:20 Albuterol/ Ipratropium (Albuterol/ Ipratropium) 3 ml Q4H PRN N Shortness of Breath 07/20/19 12:44 07/22/19 12:43 Albuterol/ Ipratropium (Albuterol/ Ipratropium) 3 ml Q6HRT N 07/20/19 13:00 07/21/19 18:59 07/20/19 13:20 Apixaban (Eliquis) 5 mg BID GT 07/20/19 18:00 08/11/19 08:59 07/20/19 17:54 Chlorhexidine Gluconate (Debora-Hex 2%) 1 applic DAILY@1999 TOPIC 07/20/19 20:00 08/13/19 19:59 Famotidine (Pepcid) 20 mg BID GT 07/20/19 18:00 08/18/19 17:59 07/20/19 17:53 Linezolid 300 ml @ 300 mls/hr Q12HR IVPB 07/20/19 21:00 07/23/19 20:59 Meropenem 1 gm/ Sodium Chloride 55 ml @ 110 mls/hr Q8HR IVPB 07/20/19 14:00 07/26/19 23:59 07/20/19 14:11 Sennosides (Senokot) 8.6 mg BID GT 07/20/19 18:00 08/11/19 08:59 07/20/19 17:54 Clara Billingsley DO Jul 20, 2019 18:40
[2019-07-20] MEDS ORDERED: NS 275ml ONE (19:38)
--- NOTE | 2019-07-20 19:45 | NUR ---
NURSE NOTES: Received patient from EMMA Downs. patient is observed resting in bed, AO X3, denies pain at this time. patient is on 3 L O2 via NC, tolerating well. no s/sx of respiratory distress noted. NGT noted in left nares, patent and intact, placement confirmed by auscultation; running Jevity 1.2 at 45 cc/hr. HOB elevated to 30 degrees, no residual noted. suprapubic f/c noted, patent and intact, draining yellow urine to gravity. JASON PICC noted, patent and intact, running NS at TKO. dressing dry and intact. bed in lowest position and locked, siderails up X3, call light within reach. will continue to monitor.
--- NOTE | 2019-07-20 19:51 | NUR ---
HAND-OFF: Report given to EMMA Barker. Patient is in stable condition.
[2019-07-20] MEDS: Dyna-Hex 2% Top Sol 2oz TOPIC SCH (20:31)
--- NOTE | 2019-07-20 22:25 | NUR ---
RESPIRATORY NOTE: Pt on BIPAP per MD orders. Pt is on 18/5, 35% Full Face mask, tape in place, skin intact. Pt sat 96% on 35% FIO2. Alarms on and audible. Bipap is not plugged in red outlet, RN aware. Recommended to transfer pt to room with red outlet.
[2019-07-21] VITALS: BP 115/57
[2019-07-21] MEDS: Albuterol/Ipratropium 3ml neb HHN SCH ×3 (01:10→12:49)
[2019-07-21] MEDS: Acetylcysteine 20% Soln 4ml HHN SCH ×4 (01:11→19:50)
[2019-07-21 04:00] VITALS: BP 126/60
[2019-07-21] MEDS: Meropenem 1 GM in NS 55 ML IVPB SCH ×3 (05:55→22:30)
--- NOTE | 2019-07-21 07:04 | NUR ---
NURSE NOTES: Received patient from EMMA Barker, in bed, AO X3, denies pain at this time. patient is on 3 L O2 via NC, tolerating well. no s/sx of respiratory distress noted. NGT noted in left nares, patent and intact, placement confirmed by auscultation; running Jevity 1.2 at 45 cc/hr. HOB elevated to 30 degrees, no residual noted. suprapubic f/c noted, patent and intact, draining yellow urine to gravity. JASON PICC noted, patent and intact at TKO. dressing dry and intact. bed in lowest position and locked, siderails up X3, call light within reach. will continue with the plan of care.
--- NOTE | 2019-07-21 07:37 | NUR ---
HAND-OFF: Report given to EMMA Downs. patient is in stable condition.
[2019-07-21 07:51] LABS: BASOPHILS % (AUTO) 0.7 % (0.0-2.0); EOSINOPHILS % (AUTO) 3.6 % (0.0-3.0); HEMOGLOBIN 9.8 G/DL (12.0-16.0); MEAN CORPUSCULAR VOLUME 70 FL (80-99); MONOCYTES % (AUTO) 5.9 % (1.0-10.0); NEUTROPHILS % (AUTO) 74.8 % (45.0-75.0); PLATELET COUNT 404 K/UL (150-450); RED BLOOD COUNT 4.68 M/UL (4.20-5.40); RED CELL DISTRIBUTION WIDTH 17.7 % (11.6-14.8); WHITE BLOOD COUNT 11.5 K/UL (4.8-10.8)
[2019-07-21 08:00] VITALS: BP 110/62
[2019-07-21 08:26] LABS: ALANINE AMINOTRANSFERASE 12 U/L (12-78); ALBUMIN 2.8 G/DL (3.4-5.0); ALBUMIN/GLOBULIN RATIO 0.5 (1.0-2.7); ALKALINE PHOSPHATASE 82 U/L (46-116); ANION GAP 2 mmol/L (5-15); ASPARTATE AMINO TRANSFERASE 9 U/L (15-37); BILIRUBIN,TOTAL 0.2 MG/DL (0.2-1.0); BLOOD UREA NITROGEN 19 mg/dL (7-18); CALCIUM 8.7 MG/DL (8.5-10.1); CARBON DIOXIDE 34 MMOL/L (21-32); CHLORIDE 99 MMOL/L (98-107); CREATININE 0.4 MG/DL (0.55-1.30); POTASSIUM 3.9 MMOL/L (3.5-5.1); SODIUM 135 MMOL/L (136-145)
[2019-07-21] MEDS: Eliquis 5mg tablet GT SCH ×2 (08:55→18:24)
[2019-07-21] MEDS: Sennosides 8.6mg tab GT SCH ×2 (08:57→18:23)
--- NOTE | 2019-07-21 10:11 | NUR ---
ST NOTES: REFERRED BY DR MENDEZ FOR SWALLOW EVALUATION, SEE FULL REPORT. DYSPHAGIA RISK FACTORS FOR THIS 49 Y.O. [place]-SPEAKING FEMALE: ACUTE ISSUES: BILATERAL (LL) PNA AND (HCAP VERUS ASPIRATION RELATED), SEPSIS, RESP FAILURE WITH HYPOXIA DESAT TO 88%, INTUBATED 07/13-07/20/19 AND ONE DAY S/P EXTUBATION, NOW ON 4 LITERS NC WITH RR 18-22, GOOD SATS 99% Fi02 36% ON CPAP AT NIGHT (LAST ON 07/19), UTI. 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 LIVES AT HOME ? DIET. LAST ADMIT NOT SEEN BY SENIOR LICENSING MANAGER AT [facility] WAS 12/08/18 DOWNGRADED TO MECH SOFT CHOPPED AND THIN LIQUIDS. WHEN SEEN BY SENIOR LICENSING MANAGER 2 YEARS AGO 03/05/17 HAD PNEUMONITIS AND APPEARED TO HAVE A MILD OROPHARYNGEAL DYSPHAGIA AND CLEARED ON MECH SOFT FINELY CHOPPED. FAMILY NOT IN FAVOR OF NONORAL FEEDINGS AND UNABLE TO HAVE MOD BARIUM SWALLOW STUDY DUE TO SCHEDULE CONFLICTS. PATIENT NPO NOW AND HAS NGT FEEDINGS (12 FR NGT) WITH MILD ORAL SECRETIONS THAT REQUIRE SUCTIONING WHICH SHE DISLIKES. ALERT AND ABLE TO COMMUNICATE SOME NEEDS IN [place] BUT MOD-SEVERE DYSPHONIA (VOICE BREATHY HOARSE) AND VERY DYSARTHRIC (IMPRECISE ARTICULATION). FOLLOWED SOME COMMANDS BUT REFUSED PO TRIALS WITH SENIOR LICENSING MANAGER EVEN WHEN SPOKEN TO IN [place]. INITIAL IMPRESSIONS: LIMITED EVAL PATIENT REFUSED ALL PO TRIALS WITH SENIOR LICENSING MANAGER HIGH RISK FOR PERSISTENT AND WORSENED OROPHARYNGEAL DYSPHAGIA WITH HIGH RISK FOR SILENT ASPIRATION GIVEN NEUROLOGICAL DX. HIGH RISK FOR POOR PO INTAKE (REFUSING PO TRIALS) DYSPHAGIA FOR ORAL SECRETIONS AND NEEDED ORAL SUCTION OF MILD AMOUNTS OF SALIVA FROM BILATERAL CHEEKS AND BACK OF THROAT. TONGUE SPEED MODERATELY SLOW AND WEAK AND POOR ROM FOR ELEVATION AND DEPRESSION. TONGUE DEVIATES SLIGHTLY LEFT WITH PROTRUSION. VOICE/COUGH WEAK AND LIPS ARE GROSSLY FUNCTIONAL (MILD RIGHT ASYMMETRY AND POSSIBLE WEAKNESS WITH RETRACTION). DIFFICULT TO VISUALIZE VELUM. GOOD DENTITION. RECOMMENDATIONS: CONTINUE WITH NPO AND NONORAL FEEDINGS (NGT) FOR NOW CONTINUE WITH ORAL CARE/SUCTION AND ASPIRATION PRECAUTIONS WITH NGT FEEDINGS PRN (EDUCATED/TRAINED OFFSET PRINTING OPERATOR JUMMY AND JOVANI ARAYA) CONSIDER MOD BARIUM SWALLOW STUDY ONLY WHEN PT RECEPTIVE TO PO TRIALS AND BARIUM (TRIED TO GET FAMILY INVOLVED BUT SISTER AND BROTHER DID NOT ANSWER PHONE AND NO WAY TO LEAVE MESSAGE). LEFT MESSAGES WITH DR MENDEZ AND DR EVANS Addendum: 07/21/19 at 1505 by JOSÉ GIMENEZ SPOKE WITH SISTER WHO WANTED TO SPEAK WITH SANDY DELA CRUZ PRESENT. ASKED Ana DELA CRUZ AND DR MENDEZ TO CALL PATIENT'S SISTER REGARDING MY RECOMMENDATIONS. D/W DR CASTRO ALSO WHO AGREED WITH NEED FOR NONORAL FEEDINGS IF FAMILY IS RECEPTIVE.
--- NOTE | 2019-07-21 10:57 | NUR ---
RADIOLOGY DEPT., CHEST X-RAY DONE.-P.DYE
[2019-07-21 12:00] VITALS: BP 109/72
--- NOTE | 2019-07-21 12:21 | General Progress Note ---
Assessment/Plan Status: stable Assessment/Plan: S, O: Extubated, awake, is following command, seems comfortable PHYSICAL EXAMINATION:HEAD AND NECK: awake , Atraumatic, normocephalic. CHEST: Diffuse bronchial breathing sounds. No wheezing.HEART: S1, S2. Regular rate and rhythm. ABDOMEN: Obese, positive for suprapubic catheter.MUSCULOSKELETAL: The atrophy of the lower extremities, paraplegia are noted.NEUROLOGY: The patient is Intubated, limited eval Medication and LABORATORY AND DIAGNOSTIC DATA: Dated July 20 reviewed ASSESSMENT AND PLAN: 1.VDRF, post extubation 2. Sepsis - healthcare associated. 3. Pneumonia, healthcare associated. 3. UTI - healthcare associated. 4. Congenital abnormalities, spina bifida, paraplegic, wheelchair-bound. 5. On New oral anticoagulation 6. GI and DVT prophylaxis. PLAN OF CARE: Current Pulmonary and ID care S/P Bronch, pending cultures Notes from ID Pulmonary reviewed Stable WBC counts, afebrile, Patient refuses ST. Medically needs SNIF Subjective Allergies: Coded Allergies: PENICILLIN G (Verified Allergy, Unknown, 12/02/18) Tolerates cabapenem, cephalosporin PENICILLINS (Unverified Allergy, Unknown, 12/02/18) Objective Last 24 Hour Vital Signs Date Time Temp Pulse Resp B/P (MAP) Pulse Ox O2 Delivery O2 Flow Rate FiO2 07/21/19 08:00 97.7 92 19 110/62 (78) 98 07/21/19 08:00 92 07/21/19 08:00 35 07/21/19 08:00 Bi-pap 07/21/19 07:45 100 22 96 Nasal Cannula 4.0 36 100 18 96 07/21/19 07:45 99 Nasal Cannula 4.0 36 07/21/19 05:15 96 20 93 Full Face 35 07/21/19 04:00 97.9 94 20 126/60 (82) 96 07/21/19 04:00 86 07/21/19 04:00 35 07/21/19 04:00 Bi-pap 07/21/19 03:06 92 16 96 Full Face 35 07/21/19 01:11 97 16 100 Bi-Pap 35 87 19 96 07/21/19 01:03 87 21 96 Full Face 35 07/21/19 00:00 98.0 91 18 115/57 (76) 97 07/21/19 00:00 Bi-pap 07/21/19 00:00 98 07/21/19 00:00 35 07/20/19 23:20 93 20 96 35 07/20/19 23:20 94 21 96 Bi-Pap 35 07/20/19 23:17 93 16 96 Full Face 35 07/20/19 22:20 94 22 96 Full Face 35 07/20/19 20:00 97.9 98 20 150/85 (106) 95 07/20/19 20:00 99 07/20/19 20:00 3.0 07/20/19 20:00 Nasal Cannula 3.0 07/20/19 19:18 94 21 100 Nasal Cannula 4.0 36 92 18 99 07/20/19 19:18 99 Nasal Cannula 4.0 36 07/20/19 16:00 Nasal Cannula 3.0 07/20/19 16:00 3.0 07/20/19 16:00 95 07/20/19 16:00 99 07/20/19 13:35 76 20 100 Nasal Cannula 3.0 32 73 21 97 Intake and Output 07/20/19 07/21/19 19:00 07:00 Intake Total 225 ml 855 ml Output Total 1140 ml 700 ml Balance -915 ml 155 ml Intake Free Water 50 ml IV Total 355 ml Tube Feeding 225 ml 450 ml Output Urine Total 1140 ml 700 ml Laboratory Tests 07/21/19 07:10: White Blood Count 11.5H, Red Blood Count 4.68, Hemoglobin 9.8L, Hematocrit 33.0L , Mean Corpuscular Volume 70L, Mean Corpuscular Hemoglobin 21.0L, Mean Corpuscular Hemoglobin Concent 29.7L, Red Cell Distribution Width 17.7H, Platelet Count 404, Mean Platelet Volume 5.7L, Neutrophils (%) (Auto) 74.8, Lymphocytes (%) (Auto) 15.0L, Monocytes (%) (Auto) 5.9, Eosinophils (%) (Auto) 3.6H, Basophils (%) (Auto) 0.7, Sodium Level 135L, Potassium Level 3.9, Chloride Level 99, Carbon Dioxide Level 34H, Anion Gap 2L, Blood Urea Nitrogen 19H, Creatinine 0.4L, Estimat Glomerular Filtration Rate > 60, Glucose Level 127H, Calcium Level 8.7, Total Bilirubin 0.2, Aspartate Amino Transf (AST/SGOT) 9L, Alanine Aminotransferase (ALT/SGPT) 12, Alkaline Phosphatase 82, Total Protein 8.3H, Albumin 2.8L, Globulin 5.5, Albumin/Globulin Ratio 0.5L Height (Feet): 4 Height (Inches): 10.00 Weight (Pounds): 77 Denise Neri MD Jul 21, 2019 12:21
--- NOTE | 2019-07-21 12:54 | Diagnostic Imaging Report ---
Indication: Shortness of breath Technique: One view of the chest Comparison: 07/19/2019 Findings: Interim removal of previously demonstrated endotracheal tube. There is increasing opacification and volume loss of the left lung. There is mild prominence of the interstitial markings in the otherwise well-aerated right lung. Ventriculoperitoneal shunt tubing, nasogastric tube, spinal fusion hardware remain Impression: Worsening left lung parenchymal disease and volume loss, over 2 days Mild interstitial congestion on the right is stable Interim extubation
--- NOTE | 2019-07-21 13:51 | Infectious Diseases Prog Note ---
Assessment/Plan Problems: (1) Pneumonia of both lower lobes Assessment & Plan: possible aspiration related, S/P extubation and bronchoscopy with BAL . responded to meropenem coverage , sputum culture grew normal respiratory sunny . will treat with meropenem for two weeks total . aspiration precaution, monitor CXR as per pulmonary (2) Catheter-associated urinary tract infection Assessment & Plan: with MDR pseudomonas aeruginosa , ESBL producing E coli and Enterococcus Faecalis vancomycin resistant , continue zyvox and meropenem for total of two weeks , continue local catheter care, recommend to change the suprapubic catheter if not done yet. D/W nurse (3) Sepsis Assessment & Plan: ruled out with negative blood culture x 2, already on wide spectrum antibiotics for pneumonia and CAUTI coverage (4) Decubitus skin ulcer Assessment & Plan: of the sacrum, continue off loading and local wound care as per hospital protocol (5) Respiratory failure with hypoxia Assessment & Plan: due to the above, with CO2 retention S/P intubation on mechanical ventilation , failing weaning trials , monitor ABG and CXR , pulmonary is following (6) Spina bifida Subjective Allergies: Coded Allergies: PENICILLIN G (Verified Allergy, Unknown, 12/02/18) Tolerates cabapenem, cephalosporin PENICILLINS (Unverified Allergy, Unknown, 12/02/18) Subjective she was comfortable lying in bed, still intubated on mechanical ventilation , awake and responsive . no fever or chills today , no secretions . no diarrhea . mild oral thrush Objective Vital Signs Last 24 Hour Vital Signs Date Time Temp Pulse Resp B/P (MAP) Pulse Ox O2 Delivery O2 Flow Rate FiO2 07/21/19 12:49 99 22 96 Nasal Cannula 4.0 36 100 18 93 07/21/19 12:00 98.1 101 19 109/72 (84) 95 07/21/19 12:00 Bi-pap 07/21/19 12:00 101 07/21/19 12:00 35 07/21/19 08:00 97.7 92 19 110/62 (78) 98 07/21/19 08:00 92 07/21/19 08:00 35 07/21/19 08:00 Bi-pap 07/21/19 07:45 100 22 96 Nasal Cannula 4.0 36 100 18 96 07/21/19 07:45 99 Nasal Cannula 4.0 36 07/21/19 05:15 96 20 93 Full Face 35 07/21/19 04:00 97.9 94 20 126/60 (82) 96 07/21/19 04:00 86 07/21/19 04:00 35 07/21/19 04:00 Bi-pap 07/21/19 03:06 92 16 96 Full Face 35 07/21/19 01:11 97 16 100 Bi-Pap 35 87 19 96 07/21/19 01:03 87 21 96 Full Face 35 07/21/19 00:00 98.0 91 18 115/57 (76) 97 07/21/19 00:00 Bi-pap 07/21/19 00:00 98 07/21/19 00:00 35 07/20/19 23:20 93 20 96 35 07/20/19 23:20 94 21 96 Bi-Pap 35 07/20/19 23:17 93 16 96 Full Face 35 07/20/19 22:20 94 22 96 Full Face 35 07/20/19 20:00 97.9 98 20 150/85 (106) 95 07/20/19 20:00 99 07/20/19 20:00 3.0 07/20/19 20:00 Nasal Cannula 3.0 07/20/19 19:18 94 21 100 Nasal Cannula 4.0 36 92 18 99 07/20/19 19:18 99 Nasal Cannula 4.0 36 07/20/19 16:00 Nasal Cannula 3.0 07/20/19 16:00 3.0 07/20/19 16:00 95 07/20/19 16:00 99 Height (Feet): 4 Height (Inches): 10.00 Weight (Pounds): 77 Laboratory Tests Test 07/21/19 07:10 White Blood Count 11.5 K/UL (4.8-10.8) H Red Blood Count 4.68 M/UL (4.20-5.40) Hemoglobin 9.8 G/DL (12.0-16.0) L Hematocrit 33.0 % (37.0-47.0) L Mean Corpuscular Volume 70 FL (80-99) L Mean Corpuscular Hemoglobin 21.0 PG (27.0-31.0) L Mean Corpuscular Hemoglobin Concent 29.7 G/DL (32.0-36.0) L Red Cell Distribution Width 17.7 % (11.6-14.8) H Platelet Count 404 K/UL (150-450) Mean Platelet Volume 5.7 FL (6.5-10.1) L Neutrophils (%) (Auto) 74.8 % (45.0-75.0) Lymphocytes (%) (Auto) 15.0 % (20.0-45.0) L Monocytes (%) (Auto) 5.9 % (1.0-10.0) Eosinophils (%) (Auto) 3.6 % (0.0-3.0) H Basophils (%) (Auto) 0.7 % (0.0-2.0) Sodium Level 135 MMOL/L (136-145) L Potassium Level 3.9 MMOL/L (3.5-5.1) Chloride Level 99 MMOL/L (98-107) Carbon Dioxide Level 34 MMOL/L (21-32) H Anion Gap 2 mmol/L (5-15) L Blood Urea Nitrogen 19 mg/dL (7-18) H Creatinine 0.4 MG/DL (0.55-1.30) L Estimat Glomerular Filtration Rate > 60 mL/min (>60) Glucose Level 127 MG/DL (74-106) H Calcium Level 8.7 MG/DL (8.5-10.1) Total Bilirubin 0.2 MG/DL (0.2-1.0) Aspartate Amino Transf (AST/SGOT) 9 U/L (15-37) L Alanine Aminotransferase (ALT/SGPT) 12 U/L (12-78) Alkaline Phosphatase 82 U/L (46-116) Total Protein 8.3 G/DL (6.4-8.2) H Albumin 2.8 G/DL (3.4-5.0) L Globulin 5.5 g/dL Albumin/Globulin Ratio 0.5 (1.0-2.7) L Current Medications Medications (Trade) Dose Ordered Sig/Sandeep Route PRN Reason Start Time Stop Time Status Last Admin Dose Admin Acetaminophen (Tylenol) 650 mg Q6H PRN GT Mild Pain/Temp > 100.5 07/20/19 12:44 08/11/19 12:43 Acetylcysteine (Mucomyst) 200 mg Q6HRT HHN 07/20/19 13:00 08/16/19 18:59 07/21/19 12:54 Albuterol/ Ipratropium (Albuterol/ Ipratropium) 3 ml Q4H PRN HHN Shortness of Breath 07/20/19 12:44 07/22/19 12:43 Albuterol/ Ipratropium (Albuterol/ Ipratropium) 3 ml Q6HRT HHN 07/20/19 13:00 07/21/19 18:59 07/21/19 12:49 Apixaban (Eliquis) 5 mg BID GT 07/20/19 18:00 08/11/19 08:59 07/21/19 08:55 Chlorhexidine Gluconate (Debora-Hex 2%) 1 applic DAILY@2000 TOPIC 07/20/19 20:00 08/13/19 19:59 07/20/19 20:31 Famotidine (Pepcid) 20 mg BID GT 07/20/19 18:00 08/18/19 17:59 07/21/19 08:57 Linezolid 300 ml @ 300 mls/hr Q12HR IVPB 07/20/19 21:00 07/23/19 20:59 07/21/19 08:59 Meropenem 1 gm/ Sodium Chloride 55 ml @ 110 mls/hr Q8HR IVPB 07/20/19 14:00 07/26/19 23:59 07/21/19 05:55 Sennosides (Senokot) 8.6 mg BID GT 07/20/19 18:00 08/11/19 08:59 07/21/19 08:57 Gigi Sanabria M.D. Jul 21, 2019 13:51
--- NOTE | 2019-07-21 14:19 | Infectious Diseases Prog Note ---
Assessment/Plan Problems: (1) Pneumonia of both lower lobes Assessment & Plan: possible aspiration related, S/P extubation and bronchoscopy with BAL . responded to meropenem coverage , sputum culture grew normal respiratory sunny . will treat with meropenem for two weeks total . aspiration precaution, monitor CXR as per pulmonary (2) Catheter-associated urinary tract infection Assessment & Plan: with MDR pseudomonas aeruginosa , ESBL producing E coli and Enterococcus Faecalis vancomycin resistant , continue zyvox and meropenem for total of two weeks , continue local catheter care, recommend to change the suprapubic catheter if not done yet. D/W nurse (3) Sepsis Assessment & Plan: ruled out with negative blood culture x 2, already on wide spectrum antibiotics for pneumonia and CAUTI coverage (4) Decubitus skin ulcer Assessment & Plan: of the sacrum, continue off loading and local wound care as per hospital protocol (5) Respiratory failure with hypoxia Assessment & Plan: due to the above, with CO2 retention S/P intubation on mechanical ventilation , failing weaning trials , monitor ABG and CXR , pulmonary is following (6) At risk for aspiration pneumonia Assessment & Plan: aspiration precaution, may benefit from tube feeding , since weak oral phase Subjective Constitutional: Reports: no symptoms HEENT: Reports: no symptoms Respiratory: Reports: shortness of breath, productive cough Breasts: Reports: no symptoms Cardiovascular: Reports: no symptoms Gastrointestinal/Abdominal: Reports: no symptoms Genitourinary: Reports: no symptoms Neurologic: Reports: no symptoms Psychiatric: Reports: no symptoms Skin: Reports: no symptoms Endocrine: Reports: no symptoms Hematologic: Reports: no symptoms Musculoskeletal: Reports: no symptoms Allergies: Coded Allergies: PENICILLIN G (Verified Allergy, Unknown, 12/02/18) Tolerates cabapenem, cephalosporin PENICILLINS (Unverified Allergy, Unknown, 12/02/18) Subjective she was comfortable lying in bed, awake and responsive was congested and coughing today , possible aspiration . no fever or chills today , no diarrhea Objective Vital Signs Last 24 Hour Vital Signs Date Time Temp Pulse Resp B/P (MAP) Pulse Ox O2 Delivery O2 Flow Rate FiO2 07/21/19 12:49 99 22 96 Nasal Cannula 4.0 36 100 18 93 07/21/19 12:00 98.1 101 19 109/72 (84) 95 07/21/19 12:00 Bi-pap 07/21/19 12:00 101 07/21/19 12:00 35 07/21/19 08:00 97.7 92 19 110/62 (78) 98 07/21/19 08:00 92 07/21/19 08:00 35 07/21/19 08:00 Bi-pap 07/21/19 07:45 100 22 96 Nasal Cannula 4.0 36 100 18 96 07/21/19 07:45 99 Nasal Cannula 4.0 36 07/21/19 05:15 96 20 93 Full Face 35 07/21/19 04:00 97.9 94 20 126/60 (82) 96 07/21/19 04:00 86 07/21/19 04:00 35 07/21/19 04:00 Bi-pap 07/21/19 03:06 92 16 96 Full Face 35 07/21/19 01:11 97 16 100 Bi-Pap 35 87 19 96 07/21/19 01:03 87 21 96 Full Face 35 07/21/19 00:00 98.0 91 18 115/57 (76) 97 07/21/19 00:00 Bi-pap 07/21/19 00:00 98 07/21/19 00:00 35 07/20/19 23:20 93 20 96 35 07/20/19 23:20 94 21 96 Bi-Pap 35 07/20/19 23:17 93 16 96 Full Face 35 07/20/19 22:20 94 22 96 Full Face 35 07/20/19 20:00 97.9 98 20 150/85 (106) 95 07/20/19 20:00 99 07/20/19 20:00 3.0 07/20/19 20:00 Nasal Cannula 3.0 07/20/19 19:18 94 21 100 Nasal Cannula 4.0 36 92 18 99 07/20/19 19:18 99 Nasal Cannula 4.0 36 07/20/19 16:00 Nasal Cannula 3.0 07/20/19 16:00 3.0 07/20/19 16:00 95 07/20/19 16:00 99 Height (Feet): 4 Height (Inches): 10.00 Weight (Pounds): 77 General Appearance: WD/WN, no acute distress HEENT: normocephalic, atraumatic, anicteric, mucous membranes moist, PERRL Respiratory/Chest: chest wall non-tender, no respiratory distress, no accessory muscle use, decreased breath sounds, crackles/rales Cardiovascular: normal peripheral pulses, normal rate, regular rhythm, no gallop/murmur, no JVD Abdomen: normal bowel sounds, soft, non tender, no organomegaly, non distended , no mass, no scars Extremities: no cyanosis, no clubbing Skin: no rash, no lesions, no ulcers Neurologic/Psychiatric: alert, responsive Lymphatic: no neck adenopathy, no groin adenopathy Musculoskeletal: normal muscle bulk, no effusion Laboratory Tests Test 07/21/19 07:10 White Blood Count 11.5 K/UL (4.8-10.8) H Red Blood Count 4.68 M/UL (4.20-5.40) Hemoglobin 9.8 G/DL (12.0-16.0) L Hematocrit 33.0 % (37.0-47.0) L Mean Corpuscular Volume 70 FL (80-99) L Mean Corpuscular Hemoglobin 21.0 PG (27.0-31.0) L Mean Corpuscular Hemoglobin Concent 29.7 G/DL (32.0-36.0) L Red Cell Distribution Width 17.7 % (11.6-14.8) H Platelet Count 404 K/UL (150-450) Mean Platelet Volume 5.7 FL (6.5-10.1) L Neutrophils (%) (Auto) 74.8 % (45.0-75.0) Lymphocytes (%) (Auto) 15.0 % (20.0-45.0) L Monocytes (%) (Auto) 5.9 % (1.0-10.0) Eosinophils (%) (Auto) 3.6 % (0.0-3.0) H Basophils (%) (Auto) 0.7 % (0.0-2.0) Sodium Level 135 MMOL/L (136-145) L Potassium Level 3.9 MMOL/L (3.5-5.1) Chloride Level 99 MMOL/L (98-107) Carbon Dioxide Level 34 MMOL/L (21-32) H Anion Gap 2 mmol/L (5-15) L Blood Urea Nitrogen 19 mg/dL (7-18) H Creatinine 0.4 MG/DL (0.55-1.30) L Estimat Glomerular Filtration Rate > 60 mL/min (>60) Glucose Level 127 MG/DL (74-106) H Calcium Level 8.7 MG/DL (8.5-10.1) Total Bilirubin 0.2 MG/DL (0.2-1.0) Aspartate Amino Transf (AST/SGOT) 9 U/L (15-37) L Alanine Aminotransferase (ALT/SGPT) 12 U/L (12-78) Alkaline Phosphatase 82 U/L (46-116) Total Protein 8.3 G/DL (6.4-8.2) H Albumin 2.8 G/DL (3.4-5.0) L Globulin 5.5 g/dL Albumin/Globulin Ratio 0.5 (1.0-2.7) L Current Medications Medications (Trade) Dose Ordered Sig/Sandeep Route PRN Reason Start Time Stop Time Status Last Admin Dose Admin Acetaminophen (Tylenol) 650 mg Q6H PRN GT Mild Pain/Temp > 100.5 07/20/19 12:44 08/11/19 12:43 Acetylcysteine (Mucomyst) 200 mg Q6HRT [facility] 07/20/19 13:00 08/16/19 18:59 07/21/19 12:54 Albuterol/ Ipratropium (Albuterol/ Ipratropium) 3 ml Q4H PRN N Shortness of Breath 07/20/19 12:44 07/22/19 12:43 Albuterol/ Ipratropium (Albuterol/ Ipratropium) 3 ml Q6HRT N 07/20/19 13:00 07/21/19 18:59 07/21/19 12:49 Apixaban (Eliquis) 5 mg BID GT 07/20/19 18:00 08/11/19 08:59 07/21/19 08:55 Chlorhexidine Gluconate (Debora-Hex 2%) 1 applic DAILY@2000 TOPIC 07/20/19 20:00 08/13/19 19:59 07/20/19 20:31 Famotidine (Pepcid) 20 mg BID GT 07/20/19 18:00 08/18/19 17:59 07/21/19 08:57 Linezolid 300 ml @ 300 mls/hr Q12HR IVPB 07/20/19 21:00 07/23/19 20:59 07/21/19 08:59 Meropenem 1 gm/ Sodium Chloride 55 ml @ 110 mls/hr Q8HR IVPB 07/20/19 14:00 07/26/19 23:59 07/21/19 05:55 Sennosides (Senokot) 8.6 mg BID GT 07/20/19 18:00 08/11/19 08:59 07/21/19 08:57 Gigi Sanabria M.D. Jul 21, 2019 14:19
--- NOTE | 2019-07-21 14:41 | Pulmonology Progress Note ---
Assessment/Plan Problems: (1) Pneumonia of both lower lobes (2) Respiratory failure with hypoxia (3) UTI (urinary tract infection) (4) Paraplegia (5) Restrictive lung disease due to kyphoscoliosis (6) Pulmonary edema (7) Spina bifida Assessment/Plan Optimize pulmonary hygiene/mobilize as tolerated Titrate O2 HHN's and NAC Abx (OTILIA/Zyvox) per ID NPO, NGTF's, [employer] therapy Monitor volumes and renal function DVT Px: Eliquis FC Subjective Allergies: Coded Allergies: PENICILLIN G (Verified Allergy, Unknown, 12/02/18) Tolerates cabapenem, cephalosporin PENICILLINS (Unverified Allergy, Unknown, 12/02/18) Subjective TTF AFVSS O2 needs stable did not participate with AIRLINE [employer]ENT + cough + SOB no FC Objective Last 24 Hour Vital Signs Date Time Temp Pulse Resp B/P (MAP) Pulse Ox O2 Delivery O2 Flow Rate FiO2 07/21/19 12:49 99 22 96 Nasal Cannula 4.0 36 100 18 93 07/21/19 12:00 98.1 101 19 109/72 (84) 95 07/21/19 12:00 Bi-pap 07/21/19 12:00 101 07/21/19 12:00 35 07/21/19 08:00 97.7 92 19 110/62 (78) 98 07/21/19 08:00 92 07/21/19 08:00 35 07/21/19 08:00 Bi-pap 07/21/19 07:45 100 22 96 Nasal Cannula 4.0 36 100 18 96 07/21/19 07:45 99 Nasal Cannula 4.0 36 07/21/19 05:15 96 20 93 Full Face 35 07/21/19 04:00 97.9 94 20 126/60 (82) 96 07/21/19 04:00 86 07/21/19 04:00 35 07/21/19 04:00 Bi-pap 07/21/19 03:06 92 16 96 Full Face 35 07/21/19 01:11 97 16 100 Bi-Pap 35 87 19 96 07/21/19 01:03 87 21 96 Full Face 35 07/21/19 00:00 98.0 91 18 115/57 (76) 97 07/21/19 00:00 Bi-pap 07/21/19 00:00 98 07/21/19 00:00 35 07/20/19 23:20 93 20 96 35 07/20/19 23:20 94 21 96 Bi-Pap 35 07/20/19 23:17 93 16 96 Full Face 35 07/20/19 22:20 94 22 96 Full Face 35 07/20/19 20:00 97.9 98 20 150/85 (106) 95 07/20/19 20:00 99 07/20/19 20:00 3.0 07/20/19 20:00 Nasal Cannula 3.0 07/20/19 19:18 94 21 100 Nasal Cannula 4.0 36 92 18 99 07/20/19 19:18 99 Nasal Cannula 4.0 36 07/20/19 16:00 Nasal Cannula 3.0 07/20/19 16:00 3.0 07/20/19 16:00 95 07/20/19 16:00 99 Intake and Output 07/20/19 07/21/19 19:00 07:00 Intake Total 225 ml 855 ml Output Total 1140 ml 700 ml Balance -915 ml 155 ml Intake Free Water 50 ml IV Total 355 ml Tube Feeding 225 ml 450 ml Output Urine Total 1140 ml 700 ml General Appearance: no acute distress, cachetic HEENT: normocephalic, atraumatic Respiratory/Chest: rhonchi Cardiovascular: normal peripheral pulses, normal rate, regular rhythm Abdomen: normal bowel sounds, soft, non tender, no organomegaly, non distended , no mass Extremities: no cyanosis, no clubbing, no edema Laboratory Tests 07/21/19 07:10: White Blood Count 11.5H, Red Blood Count 4.68, Hemoglobin 9.8L, Hematocrit 33.0L , Mean Corpuscular Volume 70L, Mean Corpuscular Hemoglobin 21.0L, Mean Corpuscular Hemoglobin Concent 29.7L, Red Cell Distribution Width 17.7H, Platelet Count 404, Mean Platelet Volume 5.7L, Neutrophils (%) (Auto) 74.8, Lymphocytes (%) (Auto) 15.0L, Monocytes (%) (Auto) 5.9, Eosinophils (%) (Auto) 3.6H, Basophils (%) (Auto) 0.7, Sodium Level 135L, Potassium Level 3.9, Chloride Level 99, Carbon Dioxide Level 34H, Anion Gap 2L, Blood Urea Nitrogen 19H, Creatinine 0.4L, Estimat Glomerular Filtration Rate > 60, Glucose Level 127H, Calcium Level 8.7, Total Bilirubin 0.2, Aspartate Amino Transf (AST/SGOT) 9L, Alanine Aminotransferase (ALT/SGPT) 12, Alkaline Phosphatase 82, Total Protein 8.3H, Albumin 2.8L, Globulin 5.5, Albumin/Globulin Ratio 0.5L Current Medications Medications (Trade) Dose Ordered Sig/Sandeep Route PRN Reason Start Time Stop Time Status Last Admin Dose Admin Acetaminophen (Tylenol) 650 mg Q6H PRN GT Mild Pain/Temp > 100.5 07/20/19 12:44 08/11/19 12:43 Acetylcysteine (Mucomyst) 200 mg Q6HRT N 07/20/19 13:00 08/16/19 18:59 07/21/19 12:54 Albuterol/ Ipratropium (Albuterol/ Ipratropium) 3 ml Q4H PRN N Shortness of Breath 07/20/19 12:44 07/22/19 12:43 Albuterol/ Ipratropium (Albuterol/ Ipratropium) 3 ml Q6HRT N 07/20/19 13:00 07/21/19 18:59 07/21/19 12:49 Apixaban (Eliquis) 5 mg BID GT 07/20/19 18:00 08/11/19 08:59 07/21/19 08:55 Chlorhexidine Gluconate (Debora-Hex 2%) 1 applic DAILY@2000 TOPIC 07/20/19 20:00 08/13/19 19:59 07/20/19 20:31 Famotidine (Pepcid) 20 mg BID GT 07/20/19 18:00 08/18/19 17:59 07/21/19 08:57 Linezolid 300 ml @ 300 mls/hr Q12HR IVPB 07/20/19 21:00 07/23/19 20:59 07/21/19 08:59 Meropenem 1 gm/ Sodium Chloride 55 ml @ 110 mls/hr Q8HR IVPB 07/20/19 14:00 07/26/19 23:59 07/21/19 05:55 Sennosides (Senokot) 8.6 mg BID GT 07/20/19 18:00 08/11/19 08:59 07/21/19 08:57 Regino Pearson MD Jul 21, 2019 14:41
--- NOTE | 2019-07-21 14:56 | NUR ---
RN STAFFINGMANAGER SOCIAL WORK SI: PNA,RESPIRATORY DISTRESS T. 98.1 HR 101 RR 19 B/P 109/72 WBC 11.5 BUN 19 IS: MEROPENEM IV ZOSYN IV ELIQUISE NGT SWALLOW EVAL FAILED TELE STATUS
--- NOTE | 2019-07-21 15:53 | Diagnostic Imaging Report ---
Indication: Shortness of breath Technique: One view of the chest Comparison: 07/17/2019 Findings: Endotracheal tube, nasogastric tube are again demonstrated. There is increasing volume loss an opacity of the left lung. Left arm PICC remains. Spinal fusion hardware again demonstrated Impression: Suspect increasing left pleural fluid and left lung parenchymal atelectasis. Other stable findings as described
[2019-07-21 16:00] VITALS: BP 117/88
--- NOTE | 2019-07-21 19:30 | NUR ---
NURSE NOTES: Pt report received from JIM CARTER. pt appears stable. pt is alert and oriented times two, however is able to respond yes or no to simple answers. pt is on mri specialist showing NSR, no cardiac distress noted. pt is on 2 L NC, able to sat at 95 %, no resp distress noted. pt bed is low, locked, armed, bed rails up times 3, call light within easy reach. will follow plan of care.
--- NOTE | 2019-07-21 19:39 | NUR ---
HAND-OFF: Report given to EMMA Bonilla. Patient is in stable condition.
[2019-07-21] MEDS: Albuterol/Ipratropium 3ml neb HHN PRN (19:49)
[2019-07-21 20:00] VITALS: BP 123/73
--- NOTE | 2019-07-21 20:00 | NUR ---
NURSE NOTES: Pt is currently off restraints. no restraints needed at this time. no indications of pulling medical devices. no abnormalities noted. on restraint body site. will re- evaluate if restraints are needed for further use, as of now, restraints are not needed. pt is stable.
[2019-07-21] MEDS: Dyna-Hex 2% Top Sol 2oz TOPIC SCH (20:26)
--- NOTE | 2019-07-21 20:30 | NUR ---
NURSE NOTES: Received patient from EMMA Elizabeth, patient in stable condition AOx2, able to make needs known to a degree, PICC line left upper arm Fr.5 double lumen, flushed and aspirated with no complications , NGT continuous, patent, F/C draining to gravity, O2@2L n/c, Bipap noc, bed low&locked, side rails upx3, call light within reach, will continue to monitor and reassess
--- NOTE | 2019-07-21 20:30 | NUR ---
HAND-OFF: Report given to Lucila PETER NOC. Pt remains stable.
[2019-07-22] VITALS: BP 133/74
[2019-07-22] MEDS: Acetylcysteine 20% Soln 4ml HHN SCH ×4 (01:14→19:05)
[2019-07-22] MEDS: Albuterol/Ipratropium 3ml neb HHN PRN ×2 (01:14→06:30)
[2019-07-22 04:00] VITALS: BP 116/62
[2019-07-22] MEDS: Meropenem 1 GM in NS 55 ML IVPB SCH ×3 (05:39→22:29)
[2019-07-22 06:10] LABS: BASOPHILS % (AUTO) 0.6 % (0.0-2.0); EOSINOPHILS % (AUTO) 3.3 % (0.0-3.0); HEMATOCRIT 33.7 % (37.0-47.0); LYMPHOCYTES % (AUTO) 15.1 % (20.0-45.0); MEAN CORPUSCULAR VOLUME 70 FL (80-99); MONOCYTES % (AUTO) 5.2 % (1.0-10.0); NEUTROPHILS % (AUTO) 75.9 % (45.0-75.0); PLATELET COUNT 421 K/UL (150-450); RED BLOOD COUNT 4.79 M/UL (4.20-5.40); RED CELL DISTRIBUTION WIDTH 17.7 % (11.6-14.8); WHITE BLOOD COUNT 12.2 K/UL (4.8-10.8)
[2019-07-22 06:24] LABS: ALANINE AMINOTRANSFERASE 11 U/L (12-78); ALBUMIN 2.8 G/DL (3.4-5.0); ALBUMIN/GLOBULIN RATIO 0.5 (1.0-2.7); ALKALINE PHOSPHATASE 88 U/L (46-116); ANION GAP 1 mmol/L (5-15); ASPARTATE AMINO TRANSFERASE 10 U/L (15-37); BILIRUBIN,TOTAL 0.2 MG/DL (0.2-1.0); BLOOD UREA NITROGEN 19 mg/dL (7-18); CALCIUM 8.6 MG/DL (8.5-10.1); CARBON DIOXIDE 37 MMOL/L (21-32); CHLORIDE 98 MMOL/L (98-107); CREATININE 0.3 MG/DL (0.55-1.30); POTASSIUM 4.1 MMOL/L (3.5-5.1); SODIUM 136 MMOL/L (136-145)
--- NOTE | 2019-07-22 07:30 | NUR ---
NURSE NOTES: receive dpatient report from génesis case. patient is on bed awake. not in acute distress. on 4li nc. saturating 92-94%. ngt on running feeding at prescribed rate. bed is low and locked for safety. will follow plan of care.
--- NOTE | 2019-07-22 07:56 | NUR ---
HAND-OFF: Report given to EMMA Beach, patient in stable condition,plan of care endorsed.
[2019-07-22 08:00] VITALS: BP 136/69
[2019-07-22] MEDS: Sennosides 8.6mg tab GT SCH ×2 (08:15→17:09)
[2019-07-22] MEDS: Eliquis 5mg tablet GT SCH ×2 (08:15→17:10)
[2019-07-22 12:00] VITALS: BP 131/80
--- NOTE | 2019-07-22 12:12 | General Progress Note ---
Assessment/Plan Status: stable Assessment/Plan: S, O: Extubated, awake, is following command, seems comfortable PHYSICAL EXAMINATION:HEAD AND NECK: awake , Atraumatic, normocephalic. CHEST: Diffuse bronchial breathing sounds. No wheezing.HEART: S1, S2. Regular rate and rhythm. ABDOMEN: Obese, positive for suprapubic catheter.MUSCULOSKELETAL: The atrophy of the lower extremities, paraplegia are noted.NEUROLOGY: The patient is Intubated, limited eval Medication and LABORATORY AND DIAGNOSTIC DATA: Dated July 22 reviewed ASSESSMENT AND PLAN: 1.VDRF, post extubation 2. Sepsis - healthcare associated. 3. Pneumonia, healthcare associated. 3. UTI - healthcare associated. 4. Congenital abnormalities, spina bifida, paraplegic, wheelchair-bound. 5. On New oral anticoagulation 6. GI and DVT prophylaxis. PLAN OF CARE: Current Pulmonary and ID care S/P Bronch, pending cultures Notes from ID Pulmonary reviewed Stable WBC counts, afebrile, Patient refuses ST. Medically needs SNIF D/w the brother ( reportedly DPOA), updated about overall medical cnd re-assess feeding. attempt feeding off NG today Subjective Allergies: Coded Allergies: PENICILLIN G (Verified Allergy, Unknown, 12/02/18) Tolerates cabapenem, cephalosporin PENICILLINS (Unverified Allergy, Unknown, 12/02/18) Objective Last 24 Hour Vital Signs Date Time Temp Pulse Resp B/P (MAP) Pulse Ox O2 Delivery O2 Flow Rate FiO2 07/22/19 08:37 91 07/22/19 08:00 97.5 98 20 136/69 (91) 95 07/22/19 08:00 35 07/22/19 06:34 94 18 98 Bi-Pap 35 90 16 98 07/22/19 06:33 98 Bi-Pap 35 07/22/19 06:02 91 20 97 Full Face 35 07/22/19 04:00 2.0 35 07/22/19 04:00 97.9 100 16 116/62 (80) 95 07/22/19 04:00 96 07/22/19 03:30 88 20 97 Full Face 35 07/22/19 01:14 95 18 98 Bi-Pap 35 93 18 95 07/22/19 01:00 91 17 93 Full Face 35 07/22/19 00:00 108 07/22/19 00:00 98.6 108 16 133/74 (93) 95 07/22/19 00:00 2.0 35 07/21/19 21:00 Nasal Cannula 4.0 07/21/19 20:00 99 07/21/19 20:00 2.0 35 07/21/19 20:00 Bi-pap 07/21/19 20:00 98.2 99 16 123/73 (90) 95 07/21/19 19:54 93 Nasal Cannula 4.0 36 07/21/19 19:50 103 18 97 Nasal Cannula 4.0 36 101 18 93 07/21/19 16:00 35 07/21/19 16:00 99 07/21/19 16:00 97.7 99 19 117/88 (98) 96 07/21/19 16:00 Bi-pap 07/21/19 12:49 99 22 96 Nasal Cannula 4.0 36 100 18 93 Intake and Output 07/21/19 07/22/19 19:00 07:00 Intake Total 300 ml Output Total 600 ml Balance -600 ml 300 ml IV Total 300 ml Output Urine Total 600 ml # Bowel Movements 1 Laboratory Tests 07/22/19 05:50: White Blood Count 12.2H, Red Blood Count 4.79, Hemoglobin 10.0L, Hematocrit 33.7L, Mean Corpuscular Volume 70L, Mean Corpuscular Hemoglobin 20.9L, Mean Corpuscular Hemoglobin Concent 29.8L, Red Cell Distribution Width 17.7H, Platelet Count 421, Mean Platelet Volume 5.3L, Neutrophils (%) (Auto) 75.9H, Lymphocytes (%) (Auto) 15.1L, Monocytes (%) (Auto) 5.2, Eosinophils (%) (Auto) 3.3H, Basophils (%) (Auto) 0.6, Sodium Level 136, Potassium Level 4.1, Chloride Level 98, Carbon Dioxide Level 37H, Anion Gap 1L, Blood Urea Nitrogen 19H, Creatinine 0.3L, Estimat Glomerular Filtration Rate > 60, Glucose Level 118H, Calcium Level 8.6, Total Bilirubin 0.2, Aspartate Amino Transf (AST/SGOT) 10L, Alanine Aminotransferase (ALT/SGPT) 11L, Alkaline Phosphatase 88, Total Protein 8.3H, Albumin 2.8L, Globulin 5.5, Albumin/Globulin Ratio 0.5L Height (Feet): 4 Height (Inches): 10.00 Weight (Pounds): 160 Denise Neri MD Jul 22, 2019 12:12
--- NOTE | 2019-07-22 12:19 | NUR ---
ST NOTES: SWALLOW STATUS: PATIENT ALERT AND ASKING (IN DYSARTHRIC SPEECH) FOR SOMETHING TO EAT/DRINK IN CHINESE. MORE ALERT AND RECEPTIVE TO PO TRIALS. VOICE STILL SOMETIMES SOUNDS WET ? PHLEGM WHICH SHE DOES NOT TRY TO COUGH UP WHEN TOLD TO IN CHINESE. SHE WILL NOT ALLOW ORAL SUCTION. GIVEN PO TRIAL OF NECTAR THICK LIQUID TSP (TO ASSESS MOD BARIUM SWALLOW STUDY READINESS), COUGHED AFTER THE SWALLOW AND SWALLOWED 3 TIMES WITH MILD DELAY EACH TIME AND FAIR HYOLARYNGEAL EXCURSION. DIFFICULT TO VISUALIZE ORAL RESIDUE SINCE SHE WILL NOT ALLOW FOR ORAL INSPECTION. SHE REFUSED MORE THICKENED WATER TRIALS. ASKED FOR APPLE JUICE (MAY PREFER SWEETS). GIVEN HONEY THICK LIQUID TSP (APPLE FLAVORED AND HER PREFERENCE), NO OVERT ASPIRATION BUT DID SWALLOW 3 TIMES AGAIN. NO ORAL RESIDUE NOTED AFTER THE 3RD SWALLOW FOR BOTH TRIALS. STILL RECEIVING NGT (12 PERSIAN) NGT FEEDINGS. HOLD PO INTAKE FOR MBSS. NEW STRAP MAKER RUBY AND JOVANI ROBERTSON EDUCATED/TRAINED IN ORAL CARE/SUCTION PRN AND ASPIRATION PRECAUTIONS WITH NGT FEEDINGS. PLAN: COMPLETE MOD BARIUM SWALLOW STUDY TODAY OR ON SUNDAY. CONTINUE WITH NONORAL FEEDINGS AND ORAL CARE/SUCTION PRN (IF RECEPTIVE) Addendum: 07/22/19 at 1441 by JOSÉ JAMES TURF MANAGER COMPLETE MOD BARIUM SWALLOW STUDY SUNDAY DUE TO SCHEDULE CONFLICT WITH BREATHING TX AND PATIENT NOT CONSISTENTLY ALERT NOW. PATIENT UNLIKELY TO MEET NUTRITION/HYDRATION NEEDS ON DIET IRRELEVANT OF ASPIRATION RISK. PATIENT ALSO HAS HIGHLY SELECTIVE FOOD/LIQUIDS PREFERENCES.
--- NOTE | 2019-07-22 13:02 | Pulmonology Progress Note ---
Assessment/Plan Problems: (1) Pneumonia of both lower lobes (2) Respiratory failure with hypoxia (3) UTI (urinary tract infection) (4) Paraplegia (5) Restrictive lung disease due to kyphoscoliosis (6) Pulmonary edema (7) Spina bifida Assessment/Plan Optimize pulmonary hygiene/mobilize as tolerated Titrate O2 HHN's and NAC Abx (OTILIA/Zyvox) per ID NPO, NGTF's, DIRECT MAIL MARKETER therapy Monitor volumes and renal function DVT Px: Eliquis FC Subjective Allergies: Coded Allergies: PENICILLIN G (Verified Allergy, Unknown, 12/02/18) Tolerates cabapenem, cephalosporin PENICILLINS (Unverified Allergy, Unknown, 12/02/18) Subjective TTF AFVSS O2 needs stable DIRECT MAIL MARKETER eval noted + cough + SOB no FC Objective Last 24 Hour Vital Signs Date Time Temp Pulse Resp B/P (MAP) Pulse Ox O2 Delivery O2 Flow Rate FiO2 07/22/19 08:37 91 07/22/19 08:00 97.5 98 20 136/69 (91) 95 07/22/19 08:00 35 07/22/19 06:34 94 18 98 Bi-Pap 35 90 16 98 07/22/19 06:33 98 Bi-Pap 35 07/22/19 06:02 91 20 97 Full Face 35 07/22/19 04:00 2.0 35 07/22/19 04:00 97.9 100 16 116/62 (80) 95 07/22/19 04:00 96 07/22/19 03:30 88 20 97 Full Face 35 07/22/19 01:14 95 18 98 Bi-Pap 35 93 18 95 07/22/19 01:00 91 17 93 Full Face 35 07/22/19 00:00 108 07/22/19 00:00 98.6 108 16 133/74 (93) 95 07/22/19 00:00 2.0 35 07/21/19 21:00 Nasal Cannula 4.0 07/21/19 20:00 99 07/21/19 20:00 2.0 35 07/21/19 20:00 Bi-pap 07/21/19 20:00 98.2 99 16 123/73 (90) 95 07/21/19 19:54 93 Nasal Cannula 4.0 36 07/21/19 19:50 103 18 97 Nasal Cannula 4.0 36 101 18 93 07/21/19 16:00 35 07/21/19 16:00 99 07/21/19 16:00 97.7 99 19 117/88 (98) 96 07/21/19 16:00 Bi-pap Intake and Output 07/21/19 07/22/19 19:00 07:00 Intake Total 300 ml Output Total 600 ml Balance -600 ml 300 ml IV Total 300 ml Output Urine Total 600 ml # Bowel Movements 1 General Appearance: no acute distress, cachetic HEENT: normocephalic, atraumatic, anicteric, mucous membranes moist Respiratory/Chest: crackles/rales Cardiovascular: normal peripheral pulses, normal rate, regular rhythm Abdomen: normal bowel sounds, soft, non tender, no organomegaly Extremities: no cyanosis, no clubbing, no edema Laboratory Tests 07/22/19 05:50: White Blood Count 12.2H, Red Blood Count 4.79, Hemoglobin 10.0L, Hematocrit 33.7L, Mean Corpuscular Volume 70L, Mean Corpuscular Hemoglobin 20.9L, Mean Corpuscular Hemoglobin Concent 29.8L, Red Cell Distribution Width 17.7H, Platelet Count 421, Mean Platelet Volume 5.3L, Neutrophils (%) (Auto) 75.9H, Lymphocytes (%) (Auto) 15.1L, Monocytes (%) (Auto) 5.2, Eosinophils (%) (Auto) 3.3H, Basophils (%) (Auto) 0.6, Sodium Level 136, Potassium Level 4.1, Chloride Level 98, Carbon Dioxide Level 37H, Anion Gap 1L, Blood Urea Nitrogen 19H, Creatinine 0.3L, Estimat Glomerular Filtration Rate > 60, Glucose Level 118H, Calcium Level 8.6, Total Bilirubin 0.2, Aspartate Amino Transf (AST/SGOT) 10L, Alanine Aminotransferase (ALT/SGPT) 11L, Alkaline Phosphatase 88, Total Protein 8.3H, Albumin 2.8L, Globulin 5.5, Albumin/Globulin Ratio 0.5L Current Medications Medications (Trade) Dose Ordered Sig/Sandeep Route PRN Reason Start Time Stop Time Status Last Admin Dose Admin Acetaminophen (Tylenol) 650 mg Q6H PRN GT Mild Pain/Temp > 100.5 07/20/19 12:44 08/11/19 12:43 Acetylcysteine (Mucomyst) 200 mg Q6HRT HHN 07/20/19 13:00 08/16/19 18:59 07/22/19 06:30 Apixaban (Eliquis) 5 mg BID GT 07/20/19 18:00 08/11/19 08:59 07/22/19 08:15 Chlorhexidine Gluconate (Debora-Hex 2%) 1 applic DAILY@2000 TOPIC 07/20/19 20:00 08/13/19 19:59 07/21/19 20:26 Famotidine (Pepcid) 20 mg BID GT 07/20/19 18:00 08/18/19 17:59 07/22/19 08:15 Linezolid 300 ml @ 300 mls/hr Q12HR IVPB 07/20/19 21:00 07/23/19 20:59 07/22/19 08:16 Meropenem 1 gm/ Sodium Chloride 55 ml @ 110 mls/hr Q8HR IVPB 07/20/19 14:00 07/26/19 23:59 07/22/19 05:39 Sennosides (Senokot) 8.6 mg BID GT 07/20/19 18:00 08/11/19 08:59 07/22/19 08:15 Regino Pearson MD Jul 22, 2019 13:02
[2019-07-22] MEDS: Albuterol/Ipratropium 3ml neb HHN SCH ×2 (13:15→19:05)
[2019-07-22] MEDS ORDERED: Albuterol/Ipratropium 3ml neb HHN PRN (13:15)
--- NOTE | 2019-07-22 14:15 | Infectious Diseases Prog Note ---
Assessment/Plan Problems: (1) Pneumonia of both lower lobes Assessment & Plan: possible aspiration related, S/P extubation and bronchoscopy with BAL . responded to meropenem coverage , sputum culture grew normal respiratory sunny . will treat with meropenem for two weeks total . aspiration precaution, monitor CXR as per pulmonary . EOT 07/27/2019 (2) Catheter-associated urinary tract infection Assessment & Plan: with MDR pseudomonas aeruginosa , ESBL producing E coli and Enterococcus Faecalis vancomycin resistant , continue zyvox and meropenem for total of two weeks , continue local catheter care, recommend to change the suprapubic catheter if not done yet. D/W nurse (3) Sepsis Assessment & Plan: ruled out with negative blood culture x 2, already on wide spectrum antibiotics for pneumonia and CAUTI coverage (4) Decubitus skin ulcer Assessment & Plan: of the sacrum, continue off loading and local wound care as per hospital protocol (5) Respiratory failure with hypoxia Assessment & Plan: due to the above, with CO2 retention S/P intubation on mechanical ventilation , failing weaning trials , monitor ABG and CXR , pulmonary is following (6) At risk for aspiration pneumonia Assessment & Plan: aspiration precaution, may benefit from tube feeding , since weak oral phase Subjective Constitutional: Reports: no symptoms HEENT: Reports: no symptoms Respiratory: Reports: dry cough Breasts: Reports: no symptoms Cardiovascular: Reports: no symptoms Gastrointestinal/Abdominal: Reports: no symptoms Genitourinary: Reports: no symptoms Neurologic: Reports: no symptoms Psychiatric: Reports: no symptoms Skin: Reports: no symptoms Endocrine: Reports: no symptoms Hematologic: Reports: no symptoms Musculoskeletal: Reports: no symptoms Allergies: Coded Allergies: PENICILLIN G (Verified Allergy, Unknown, 12/02/18) Tolerates cabapenem, cephalosporin PENICILLINS (Unverified Allergy, Unknown, 12/02/18) Subjective she was comfortable lying in bed, awake and responsive was congested and coughing today , possible aspiration . no fever or chills today , no diarrhea Objective Vital Signs Last 24 Hour Vital Signs Date Time Temp Pulse Resp B/P (MAP) Pulse Ox O2 Delivery O2 Flow Rate FiO2 07/22/19 13:20 96 18 97 Nasal Cannula 36 94 18 96 07/22/19 12:00 97.7 97 18 131/80 (97) 96 07/22/19 12:00 35 07/22/19 08:37 91 07/22/19 08:00 97.5 98 20 136/69 (91) 95 07/22/19 08:00 35 07/22/19 06:34 94 18 98 Bi-Pap 35 90 16 98 07/22/19 06:33 98 Bi-Pap 35 07/22/19 06:02 91 20 97 Full Face 35 07/22/19 04:00 2.0 35 07/22/19 04:00 97.9 100 16 116/62 (80) 95 07/22/19 04:00 96 07/22/19 03:30 88 20 97 Full Face 35 07/22/19 01:14 95 18 98 Bi-Pap 35 93 18 95 07/22/19 01:00 91 17 93 Full Face 35 07/22/19 00:00 108 07/22/19 00:00 98.6 108 16 133/74 (93) 95 07/22/19 00:00 2.0 35 07/21/19 21:00 Nasal Cannula 4.0 07/21/19 20:00 99 07/21/19 20:00 2.0 35 07/21/19 20:00 Bi-pap 07/21/19 20:00 98.2 99 16 123/73 (90) 95 07/21/19 19:54 93 Nasal Cannula 4.0 36 07/21/19 19:50 103 18 97 Nasal Cannula 4.0 36 101 18 93 07/21/19 16:00 35 07/21/19 16:00 99 07/21/19 16:00 97.7 99 19 117/88 (98) 96 07/21/19 16:00 Bi-pap Height (Feet): 4 Height (Inches): 10.00 Weight (Pounds): 160 General Appearance: WD/WN, no acute distress HEENT: normocephalic, atraumatic, anicteric, mucous membranes moist, pharynx normal, supple, no JVD Respiratory/Chest: chest wall non-tender, no respiratory distress, no accessory muscle use, decreased breath sounds, crackles/rales Cardiovascular: normal peripheral pulses, normal rate, regular rhythm, no gallop/murmur, no JVD Abdomen: normal bowel sounds, soft, non tender, no organomegaly, non distended , no mass, no scars Extremities: no cyanosis, no clubbing Skin: no rash, no lesions, no ulcers Neurologic/Psychiatric: alert, responsive Lymphatic: no neck adenopathy, no groin adenopathy Musculoskeletal: normal muscle bulk, no effusion Laboratory Tests Test 07/22/19 05:50 White Blood Count 12.2 K/UL (4.8-10.8) H Red Blood Count 4.79 M/UL (4.20-5.40) Hemoglobin 10.0 G/DL (12.0-16.0) L Hematocrit 33.7 % (37.0-47.0) L Mean Corpuscular Volume 70 FL (80-99) L Mean Corpuscular Hemoglobin 20.9 PG (27.0-31.0) L Mean Corpuscular Hemoglobin Concent 29.8 G/DL (32.0-36.0) L Red Cell Distribution Width 17.7 % (11.6-14.8) H Platelet Count 421 K/UL (150-450) Mean Platelet Volume 5.3 FL (6.5-10.1) L Neutrophils (%) (Auto) 75.9 % (45.0-75.0) H Lymphocytes (%) (Auto) 15.1 % (20.0-45.0) L Monocytes (%) (Auto) 5.2 % (1.0-10.0) Eosinophils (%) (Auto) 3.3 % (0.0-3.0) H Basophils (%) (Auto) 0.6 % (0.0-2.0) Sodium Level 136 MMOL/L (136-145) Potassium Level 4.1 MMOL/L (3.5-5.1) Chloride Level 98 MMOL/L (98-107) Carbon Dioxide Level 37 MMOL/L (21-32) H Anion Gap 1 mmol/L (5-15) L Blood Urea Nitrogen 19 mg/dL (7-18) H Creatinine 0.3 MG/DL (0.55-1.30) L Estimat Glomerular Filtration Rate > 60 mL/min (>60) Glucose Level 118 MG/DL (74-106) H Calcium Level 8.6 MG/DL (8.5-10.1) Total Bilirubin 0.2 MG/DL (0.2-1.0) Aspartate Amino Transf (AST/SGOT) 10 U/L (15-37) L Alanine Aminotransferase (ALT/SGPT) 11 U/L (12-78) L Alkaline Phosphatase 88 U/L (46-116) Total Protein 8.3 G/DL (6.4-8.2) H Albumin 2.8 G/DL (3.4-5.0) L Globulin 5.5 g/dL Albumin/Globulin Ratio 0.5 (1.0-2.7) L Current Medications Medications (Trade) Dose Ordered Sig/Sandeep Route PRN Reason Start Time Stop Time Status Last Admin Dose Admin Acetaminophen (Tylenol) 650 mg Q6H PRN GT Mild Pain/Temp > 100.5 07/20/19 12:44 08/11/19 12:43 Acetylcysteine (Mucomyst) 200 mg Q6HRT N 07/20/19 13:00 08/16/19 18:59 07/22/19 13:15 Albuterol/ Ipratropium (Albuterol/ Ipratropium) 3 ml Q4H PRN N Shortness of Breath 07/22/19 13:15 07/27/19 13:14 Albuterol/ Ipratropium (Albuterol/ Ipratropium) 3 ml Q6HRT N 07/22/19 13:15 07/27/19 13:14 07/22/19 13:15 Apixaban (Eliquis) 5 mg BID GT 07/20/19 18:00 08/11/19 08:59 07/22/19 08:15 Chlorhexidine Gluconate (Debora-Hex 2%) 1 applic DAILY@2000 TOPIC 07/20/19 20:00 08/13/19 19:59 07/21/19 20:26 Famotidine (Pepcid) 20 mg BID GT 07/20/19 18:00 08/18/19 17:59 07/22/19 08:15 Linezolid 300 ml @ 300 mls/hr Q12HR IVPB 07/20/19 21:00 07/23/19 20:59 07/22/19 08:16 Meropenem 1 gm/ Sodium Chloride 55 ml @ 110 mls/hr Q8HR IVPB 07/20/19 14:00 07/26/19 23:59 07/22/19 14:06 Sennosides (Senokot) 8.6 mg BID GT 07/20/19 18:00 08/11/19 08:59 07/22/19 08:15 Gigi Sanabria M.D. Jul 22, 2019 14:15
[2019-07-22 16:00] VITALS: BP 134/66
--- NOTE | 2019-07-22 19:32 | NUR ---
HAND-OFF: Report given to gualberto case.
--- NOTE | 2019-07-22 19:33 | NUR ---
NURSE NOTES: Got report from Baylee CARTER. Pt in stable condition. Denies any pain. No s/s of distress or discomfort noted. Pt resting in bed comfortably. Bed in low and locked position, call light within reach, bedside table within reach. Continue to monitor.
[2019-07-22 20:00] VITALS: BP 150/86
[2019-07-22] MEDS: Dyna-Hex 2% Top Sol 2oz TOPIC SCH (20:00)
[2019-07-23] VITALS: BP 124/76
[2019-07-23] MEDS: Albuterol/Ipratropium 3ml neb HHN SCH ×4 (01:42→18:56)
[2019-07-23] MEDS: Acetylcysteine 20% Soln 4ml HHN SCH ×4 (01:42→18:57)
[2019-07-23 04:00] VITALS: BP 126/77
[2019-07-23] MEDS: Meropenem 1 GM in NS 55 ML IVPB SCH ×3 (05:41→22:16)
--- NOTE | 2019-07-23 07:34 | NUR ---
NURSE NOTES: Received report from EMMA Robert. Pt in bed, Bipap on, pt is able to open eyes to verbal response and no to simple questions, no c/o pain, no apparent distress noted, JASON PICC DL running to TKO, bed in lowest position, call light within reach.
--- NOTE | 2019-07-23 07:34 | NUR ---
HAND-OFF: Report given to Aliza CARTER.
[2019-07-23 08:00] VITALS: BP 127/81
--- NOTE | 2019-07-23 08:43 | General Progress Note ---
Assessment/Plan Status: stable Assessment/Plan: S, O: Extubated, awake, is following command, seems comfortable. NG tube and Huber in place PHYSICAL EXAMINATION:HEAD AND NECK: awake , Atraumatic, normocephalic. CHEST: Diffuse bronchial breathing sounds. No wheezing.HEART: S1, S2. Regular rate and rhythm. ABDOMEN: Obese, positive for suprapubic catheter.MUSCULOSKELETAL: The atrophy of the lower extremities, paraplegia are noted.NEUROLOGY: The patient is Intubated, limited eval Medication and LABORATORY AND DIAGNOSTIC DATA: Dated Jul 23 reviewed ASSESSMENT AND PLAN: 1.VDRF, post extubation 2. Sepsis - healthcare associated. 3. Pneumonia, healthcare associated. 3. UTI - healthcare associated. 4. Congenital abnormalities, spina bifida, paraplegic, wheelchair-bound. 5. On New oral anticoagulation 6. GI and DVT prophylaxis. PLAN OF CARE: Current Pulmonary and ID care S/P Bronch, pending cultures Notes from ID Pulmonary reviewed Stable WBC counts, afebrile, Patient refuses ST. Medically needs SNIF D/w the brother ( reportedly DPOA), updated about overall medical cnd re-assessed feeding Worsening wbc and increased pulmonary infiltrate Subjective Allergies: Coded Allergies: PENICILLIN G (Verified Allergy, Unknown, 12/02/18) Tolerates cabapenem, cephalosporin PENICILLINS (Unverified Allergy, Unknown, 12/02/18) Objective Last 24 Hour Vital Signs Date Time Temp Pulse Resp B/P (MAP) Pulse Ox O2 Delivery O2 Flow Rate FiO2 07/23/19 07:59 96 20 100 Bi-Pap 40 92 20 100 07/23/19 07:58 92 Nasal Cannula 4.0 36 07/23/19 05:14 74 22 93 Facial 40 07/23/19 04:00 94 07/23/19 04:00 97.5 95 20 126/77 (93) 96 07/23/19 04:00 35 07/23/19 03:04 54 25 93 Facial 40 07/23/19 01:43 95 22 95 Bi-Pap 40 91 20 92 07/23/19 01:23 91 20 94 Full Face 40 07/23/19 00:15 93 18 92 Full Face 40 07/23/19 00:00 97.9 101 20 124/76 (92) 95 07/23/19 00:00 104 07/22/19 21:00 35 07/22/19 21:00 Nasal Cannula 4.0 07/22/19 20:00 98.2 99 16 150/86 (107) 95 07/22/19 20:00 98 07/22/19 19:06 95 17 92 Nasal Cannula 36 96 15 90 07/22/19 19:06 90 Nasal Cannula 4.0 36 07/22/19 16:09 93 07/22/19 16:00 35 07/22/19 16:00 97.5 99 20 134/66 (88) 95 07/22/19 14:59 75 16 96 Nasal Cannula 4.0 36 07/22/19 13:20 96 18 97 Nasal Cannula 36 94 18 96 07/22/19 12:06 97 07/22/19 12:00 97.7 97 18 131/80 (97) 96 07/22/19 12:00 35 Intake and Output 07/22/19 07/23/19 19:00 07:00 Intake Total 620 ml Output Total 800 ml Balance -180 ml Intake Free Water 80 ml Tube Feeding 540 ml Output Urine Total 800 ml # Bowel Movements 1 1 Height (Feet): 4 Height (Inches): 10.00 Weight (Pounds): 160 Denise Neri MD Jul 23, 2019 08:43
[2019-07-23] MEDS: Sennosides 8.6mg tab GT SCH ×2 (09:00→17:39)
[2019-07-23] MEDS: Eliquis 5mg tablet GT SCH ×2 (09:00→17:39)
[2019-07-23 09:04] LABS: BASOPHILS % (AUTO) 0.5 % (0.0-2.0); HEMOGLOBIN 10.5 G/DL (12.0-16.0); LYMPHOCYTES % (AUTO) 15.3 % (20.0-45.0); MEAN CORPUSCULAR VOLUME 70 FL (80-99); MONOCYTES % (AUTO) 5.2 % (1.0-10.0); PLATELET COUNT 458 K/UL (150-450); RED BLOOD COUNT 5.03 M/UL (4.20-5.40); RED CELL DISTRIBUTION WIDTH 17.4 % (11.6-14.8); WHITE BLOOD COUNT 11.7 K/UL (4.8-10.8)
[2019-07-23 10:49] LABS: ALANINE AMINOTRANSFERASE 16 U/L (12-78); ALBUMIN/GLOBULIN RATIO 0.5 (1.0-2.7); ALKALINE PHOSPHATASE 93 U/L (46-116); ANION GAP 2 mmol/L (5-15); ASPARTATE AMINO TRANSFERASE 13 U/L (15-37); BILIRUBIN,TOTAL 0.3 MG/DL (0.2-1.0); BLOOD UREA NITROGEN 21 mg/dL (7-18); CALCIUM 9.1 MG/DL (8.5-10.1); CARBON DIOXIDE 37 MMOL/L (21-32); CHLORIDE 99 MMOL/L (98-107); CREATININE 0.4 MG/DL (0.55-1.30); POTASSIUM 3.8 MMOL/L (3.5-5.1); SODIUM 138 MMOL/L (136-145)
[2019-07-23 12:00] VITALS: BP 122/60
[2019-07-23 16:00] VITALS: BP 113/69
--- NOTE | 2019-07-23 18:35 | NUR ---
NURSE NOTES: Pt's brother and POA, Quinn is asking for the pt to be transferred to [facility] as she has been a pt there a number of time. RN notified Dr. Neri of request to transfer pt and provided MD with contact numbers for Quinn and as well as the pt's sister, Karolyn. RN also left a message for SANDY Sousa as SANDY Aguiar has a full voicemail.
--- NOTE | 2019-07-23 19:05 | NUR ---
HAND-OFF: Report given to EMMA Robert.
--- NOTE | 2019-07-23 19:30 | Pulmonology Progress Note ---
Assessment/Plan Assessment/Plan (1) Pneumonia of both lower lobes (2) Respiratory failure with hypoxia (3) UTI (urinary tract infection) (4) Paraplegia (5) Restrictive lung disease due to kyphoscoliosis (6) Pulmonary edema (7) Spina bifida Assessment/Plan Optimize pulmonary hygiene/mobilize as tolerated Titrate O2 HHN's and NAC Abx (OTILIA/Zyvox) per ID NPO, NGTF's, FRUIT STUFFER therapy Monitor volumes and renal function DVT Px: Eliquis bipap qhs cxr am cxr 07/21 with increased LLL infiltrate collapse Subjective Constitutional: Reports: no symptoms HEENT: Repors: no symptoms Respiratory: Reports: no symptoms Cardiovascular: Reports: no symptoms Gastrointestinal/Abdominal: Reports: no symptoms Genitourinary: Reports: no symptoms Allergies: Coded Allergies: PENICILLIN G (Verified Allergy, Unknown, 12/02/18) Tolerates cabapenem, cephalosporin PENICILLINS (Unverified Allergy, Unknown, 12/02/18) Subjective no newevents no cp nv or bleeding no fever not etting oob on bipap and comfortable TV 500 on current settings Objective Last 24 Hour Vital Signs Date Time Temp Pulse Resp B/P (MAP) Pulse Ox O2 Delivery O2 Flow Rate FiO2 07/23/19 18:58 116 24 90 Facial 40 07/23/19 18:57 95 Bi-Pap 40 07/23/19 16:00 97.9 108 18 113/69 (84) 98 07/23/19 16:00 4.0 07/23/19 15:30 110 07/23/19 13:39 110 18 95 Bi-Pap 40 107 18 90 07/23/19 12:00 97.9 96 18 122/60 (80) 96 07/23/19 12:00 4.0 07/23/19 11:37 105 07/23/19 09:00 Nasal Cannula 4.0 07/23/19 08:40 101 07/23/19 08:00 35 07/23/19 08:00 98.1 88 21 127/81 (96) 96 07/23/19 07:59 96 20 100 Bi-Pap 40 92 20 100 07/23/19 07:58 92 Nasal Cannula 4.0 36 07/23/19 05:14 74 22 93 Facial 40 07/23/19 04:00 94 07/23/19 04:00 97.5 95 20 126/77 (93) 96 07/23/19 04:00 35 07/23/19 03:04 54 25 93 Facial 40 07/23/19 01:43 95 22 95 Bi-Pap 40 91 20 92 07/23/19 01:23 91 20 94 Full Face 40 07/23/19 00:15 93 18 92 Full Face 40 07/23/19 00:00 97.9 101 20 124/76 (92) 95 07/23/19 00:00 104 07/22/19 21:00 35 07/22/19 21:00 Nasal Cannula 4.0 07/22/19 20:00 98.2 99 16 150/86 (107) 95 07/22/19 20:00 98 Intake and Output 07/22/19 07/23/19 19:00 07:00 Intake Total 620 ml Output Total 800 ml Balance -180 ml Intake Free Water 80 ml Tube Feeding 540 ml Output Urine Total 800 ml # Bowel Movements 1 1 General Appearance: WD/WN Respiratory/Chest: rhonchi Cardiovascular: normal rate, regular rhythm, regularly irregular Abdomen: soft, non tender, no organomegaly Neurologic/Psychiatric: alert Lymphatic: no neck adenopathy Laboratory Tests 07/23/19 07:55: White Blood Count 11.7H, Red Blood Count 5.03, Hemoglobin 10.5L, Hematocrit 35.0L, Mean Corpuscular Volume 70L, Mean Corpuscular Hemoglobin 20.9L, Mean Corpuscular Hemoglobin Concent 30.0L, Red Cell Distribution Width 17.4H, Platelet Count 458H, Mean Platelet Volume 5.4L, Neutrophils (%) (Auto) 76.0H, Lymphocytes (%) (Auto) 15.3L, Monocytes (%) (Auto) 5.2, Eosinophils (%) (Auto) 3.0, Basophils (%) (Auto) 0.5, Sodium Level 138, Potassium Level 3.8, Chloride Level 99, Carbon Dioxide Level 37H, Anion Gap 2L, Blood Urea Nitrogen 21H, Creatinine 0.4L, Estimat Glomerular Filtration Rate > 60, Glucose Level 115H, Calcium Level 9.1, Total Bilirubin 0.3, Aspartate Amino Transf (AST/SGOT) 13L, Alanine Aminotransferase (ALT/SGPT) 16, Alkaline Phosphatase 93, Total Protein 8.5H, Albumin 3.0L, Globulin 5.5, Albumin/Globulin Ratio 0.5L Current Medications Medications (Trade) Dose Ordered Sig/Sandeep Route PRN Reason Start Time Stop Time Status Last Admin Dose Admin Acetaminophen (Tylenol) 650 mg Q6H PRN GT Mild Pain/Temp > 100.5 07/20/19 12:44 08/11/19 12:43 Acetylcysteine (Mucomyst) 200 mg Q6HRT N 07/20/19 13:00 08/16/19 18:59 07/23/19 13:36 Albuterol/ Ipratropium (Albuterol/ Ipratropium) 3 ml Q4H PRN N Shortness of Breath 07/22/19 13:15 07/27/19 13:14 Albuterol/ Ipratropium (Albuterol/ Ipratropium) 3 ml Q6HRT N 07/22/19 13:15 07/27/19 13:14 07/23/19 13:36 Apixaban (Eliquis) 5 mg BID GT 07/20/19 18:00 08/11/19 08:59 07/23/19 17:39 Chlorhexidine Gluconate (Debora-Hex 2%) 1 applic DAILY@2000 TOPIC 07/20/19 20:00 08/13/19 19:59 07/21/19 20:26 Famotidine (Pepcid) 20 mg BID GT 07/20/19 18:00 08/18/19 17:59 07/23/19 17:39 Linezolid 300 ml @ 300 mls/hr Q12HR IVPB 07/20/19 21:00 07/27/19 23:59 07/23/19 09:00 Meropenem 1 gm/ Sodium Chloride 55 ml @ 110 mls/hr Q8HR IVPB 07/20/19 14:00 07/27/19 23:59 07/23/19 13:38 Sennosides (Senokot) 8.6 mg BID GT 07/20/19 18:00 08/11/19 08:59 07/23/19 17:39 Clara Billingsley DO Jul 23, 2019 19:30
[2019-07-23 20:00] VITALS: BP 125/68
[2019-07-23] MEDS: Dyna-Hex 2% Top Sol 2oz TOPIC SCH (20:00)
--- NOTE | 2019-07-23 20:38 | Infectious Diseases Prog Note ---
Assessment/Plan Problems: (1) Pneumonia of both lower lobes Assessment & Plan: with worsening left side infiltrates and hypoxemia , suspect recurrent aspiration , already on meropenem and zyvox coverage for two weeks , will treat with meropenem and zyvox for two weeks . aspiration precaution, monitor CXR as per pulmonary . EOT 07/27/2019 (2) Catheter-associated urinary tract infection Assessment & Plan: with MDR pseudomonas aeruginosa , ESBL producing E coli and Enterococcus Faecalis vancomycin resistant , continue zyvox and meropenem for total of two weeks , continue local catheter care, recommend to change the suprapubic catheter if not done yet. D/W nurse (3) Sepsis Assessment & Plan: ruled out with negative blood culture x 2, already on wide spectrum antibiotics for pneumonia and CAUTI coverage (4) Decubitus skin ulcer Assessment & Plan: of the sacrum, continue off loading and local wound care as per hospital protocol (5) Respiratory failure with hypoxia Assessment & Plan: due to the above, with CO2 retention S/P intubation on mechanical ventilation , failing weaning trials , monitor ABG and CXR , pulmonary is following (6) At risk for aspiration pneumonia Assessment & Plan: aspiration precaution, may benefit from tube feeding , since weak oral phase Subjective Constitutional: Reports: no symptoms Respiratory: Reports: shortness of breath, productive cough Breasts: Reports: no symptoms Cardiovascular: Reports: no symptoms Gastrointestinal/Abdominal: Reports: no symptoms Genitourinary: Reports: no symptoms Neurologic: Reports: no symptoms Psychiatric: Reports: no symptoms Skin: Reports: no symptoms Endocrine: Reports: no symptoms Hematologic: Reports: no symptoms Musculoskeletal: Reports: no symptoms Allergies: Coded Allergies: PENICILLIN G (Verified Allergy, Unknown, 12/02/18) Tolerates cabapenem, cephalosporin PENICILLINS (Unverified Allergy, Unknown, 12/02/18) Subjective she was lying in bed, awake and responsive , was congested and coughing , required BIPAP . no fever or chills today , no diarrhea Objective Vital Signs Last 24 Hour Vital Signs Date Time Temp Pulse Resp B/P (MAP) Pulse Ox O2 Delivery O2 Flow Rate FiO2 07/23/19 18:58 116 24 90 Facial 40 07/23/19 18:57 95 Bi-Pap 40 07/23/19 16:00 97.9 108 18 113/69 (84) 98 07/23/19 16:00 4.0 07/23/19 15:30 110 07/23/19 13:39 110 18 95 Bi-Pap 40 107 18 90 07/23/19 12:00 97.9 96 18 122/60 (80) 96 07/23/19 12:00 4.0 07/23/19 11:37 105 07/23/19 09:00 Nasal Cannula 4.0 07/23/19 08:40 101 07/23/19 08:00 35 07/23/19 08:00 98.1 88 21 127/81 (96) 96 07/23/19 07:59 96 20 100 Bi-Pap 40 92 20 100 07/23/19 07:58 92 Nasal Cannula 4.0 36 07/23/19 05:14 74 22 93 Facial 40 07/23/19 04:00 94 07/23/19 04:00 97.5 95 20 126/77 (93) 96 07/23/19 04:00 35 07/23/19 03:04 54 25 93 Facial 40 07/23/19 01:43 95 22 95 Bi-Pap 40 91 20 92 07/23/19 01:23 91 20 94 Full Face 40 07/23/19 00:15 93 18 92 Full Face 40 07/23/19 00:00 97.9 101 20 124/76 (92) 95 07/23/19 00:00 104 07/22/19 21:00 35 07/22/19 21:00 Nasal Cannula 4.0 Height (Feet): 4 Height (Inches): 10.00 Weight (Pounds): 160 General Appearance: WD/WN, no acute distress HEENT: normocephalic, atraumatic, anicteric, mucous membranes moist, PERRL Respiratory/Chest: chest wall non-tender, no respiratory distress, no accessory muscle use, decreased breath sounds, crackles/rales Cardiovascular: normal peripheral pulses, normal rate, regular rhythm, no gallop/murmur, no JVD Abdomen: normal bowel sounds, soft, non tender, no organomegaly, non distended , no mass, no scars Genitourinary: normal external genitalia Extremities: no cyanosis, no clubbing Skin: no rash, no lesions Neurologic/Psychiatric: alert, responsive Lymphatic: no neck adenopathy, no groin adenopathy Musculoskeletal: normal muscle bulk, no effusion Laboratory Tests Test 07/23/19 07:55 White Blood Count 11.7 K/UL (4.8-10.8) H Red Blood Count 5.03 M/UL (4.20-5.40) Hemoglobin 10.5 G/DL (12.0-16.0) L Hematocrit 35.0 % (37.0-47.0) L Mean Corpuscular Volume 70 FL (80-99) L Mean Corpuscular Hemoglobin 20.9 PG (27.0-31.0) L Mean Corpuscular Hemoglobin Concent 30.0 G/DL (32.0-36.0) L Red Cell Distribution Width 17.4 % (11.6-14.8) H Platelet Count 458 K/UL (150-450) H Mean Platelet Volume 5.4 FL (6.5-10.1) L Neutrophils (%) (Auto) 76.0 % (45.0-75.0) H Lymphocytes (%) (Auto) 15.3 % (20.0-45.0) L Monocytes (%) (Auto) 5.2 % (1.0-10.0) Eosinophils (%) (Auto) 3.0 % (0.0-3.0) Basophils (%) (Auto) 0.5 % (0.0-2.0) Sodium Level 138 MMOL/L (136-145) Potassium Level 3.8 MMOL/L (3.5-5.1) Chloride Level 99 MMOL/L (98-107) Carbon Dioxide Level 37 MMOL/L (21-32) H Anion Gap 2 mmol/L (5-15) L Blood Urea Nitrogen 21 mg/dL (7-18) H Creatinine 0.4 MG/DL (0.55-1.30) L Estimat Glomerular Filtration Rate > 60 mL/min (>60) Glucose Level 115 MG/DL (74-106) H Calcium Level 9.1 MG/DL (8.5-10.1) Total Bilirubin 0.3 MG/DL (0.2-1.0) Aspartate Amino Transf (AST/SGOT) 13 U/L (15-37) L Alanine Aminotransferase (ALT/SGPT) 16 U/L (12-78) Alkaline Phosphatase 93 U/L (46-116) Total Protein 8.5 G/DL (6.4-8.2) H Albumin 3.0 G/DL (3.4-5.0) L Globulin 5.5 g/dL Albumin/Globulin Ratio 0.5 (1.0-2.7) L Current Medications Medications (Trade) Dose Ordered Sig/Sandeep Route PRN Reason Start Time Stop Time Status Last Admin Dose Admin Acetaminophen (Tylenol) 650 mg Q6H PRN GT Mild Pain/Temp > 100.5 07/20/19 12:44 08/11/19 12:43 Acetylcysteine (Mucomyst) 200 mg Q6HRT N 07/20/19 13:00 08/16/19 18:59 07/23/19 13:36 Albuterol/ Ipratropium (Albuterol/ Ipratropium) 3 ml Q4H PRN N Shortness of Breath 07/22/19 13:15 07/27/19 13:14 Albuterol/ Ipratropium (Albuterol/ Ipratropium) 3 ml Q6HRT [facility] 07/22/19 13:15 07/27/19 13:14 07/23/19 13:36 Apixaban (Eliquis) 5 mg BID GT 07/20/19 18:00 08/11/19 08:59 07/23/19 17:39 Chlorhexidine Gluconate (Debora-Hex 2%) 1 applic DAILY@2000 TOPIC 07/20/19 20:00 08/13/19 19:59 07/21/19 20:26 Famotidine (Pepcid) 20 mg BID GT 07/20/19 18:00 08/18/19 17:59 07/23/19 17:39 Linezolid 300 ml @ 300 mls/hr Q12HR IVPB 07/20/19 21:00 07/27/19 23:59 07/23/19 09:00 Meropenem 1 gm/ Sodium Chloride 55 ml @ 110 mls/hr Q8HR IVPB 07/20/19 14:00 07/27/19 23:59 07/23/19 13:38 Sennosides (Senokot) 8.6 mg BID GT 07/20/19 18:00 08/11/19 08:59 07/23/19 17:39 Gigi Sanabria M.D. Jul 23, 2019 20:38
[2019-07-24] VITALS: BP 133/76
[2019-07-24] MEDS: Albuterol/Ipratropium 3ml neb HHN SCH ×4 (00:28→19:29)
[2019-07-24] MEDS: Acetylcysteine 20% Soln 4ml HHN SCH ×4 (00:28→19:35)
[2019-07-24 04:00] VITALS: BP 126/74
[2019-07-24] MEDS: Meropenem 1 GM in NS 55 ML IVPB SCH ×3 (05:35→22:09)
--- NOTE | 2019-07-24 07:42 | NUR ---
HAND-OFF: Report given to Aliza CARTER.
--- NOTE | 2019-07-24 07:43 | NUR ---
NURSE NOTES: Received report from EMMA Robert. PT in bed, awake, alert but no oriented, able to answer simple question, no c/o pain, no apparent distress noted, oral care and oral suctioning provided to pt HOB >30degrees, on 4L NC, bed in lowest position, call light within reach.
[2019-07-24 08:00] VITALS: BP 122/88
[2019-07-24] MEDS: Eliquis 5mg tablet GT SCH ×2 (09:00→18:31)
[2019-07-24] MEDS: Sennosides 8.6mg tab GT SCH ×2 (09:00→18:31)
--- NOTE | 2019-07-24 09:09 | NUR ---
RADIOLOGY DEPT., CHEST X-RAY DONE.-P.DYE
--- NOTE | 2019-07-24 09:25 | NUR ---
CASE MANAGEMENT:REVIEW 07/24/19 SI: SEPSIS. PNA. UTI 97.7 103 20 122/88 92% ON 4L/NC IS: IV LINEZOLID Q12 IV MEROPENEM Q8HRS DUONEB HHN Q6HRS RTC MUCOMYST HHN Q6HRS RTC ELIQUIS GT BID PEPCID GT BID : TELEMETRY STATUS PLAN: PATIENT IS FROM HOME....FAMILY WANTS HER TRANSFERRED TO [facility]...PROBABLY NEEDS SNF
--- NOTE | 2019-07-24 09:30 | NUR ---
TRANSFER UPDATE THIS RADAR ENGINEERING TEACHER CALLED PATIENT'S BROTHER CHATO @ [phone] ~ NO ANSWER AND VOICEMAIL NOT SET UP Addendum: 07/24/19 at 0948 by DENISE ZAVALA LVN LVN CALLED [facility] AND SPOKE WITH ELSI WHO STATED PATIENT IS NOT ON THE LIST FOR TRANSFER DISCUSSED TRANSFER WITH DR MENDEZ AND PROVIDED HIM WITH TRANSFER CENTERS NUMBER FAXED FACESHEET TO [facility] T: [phone] F: [phone]
--- NOTE | 2019-07-24 11:31 | NUR ---
NURSE NOTES: Spoke to pt's sister, Karolyn. Family is upset as they would like her to be transferred to [facility]. Per SANDY Sousa transfer will be difficult as it is family request, not for higher level of care. Karolyn is upset with the care at [facility] and specifically with Dr. Neri as he told family that pt is aspirating on her own saliva. Per family, pt is able to eat solid food at home and needs constant observation and que. RN referred Karolyn to SANDY Sousa to discuss transfer and reassured Karolyn the pt is being suctioned PRN and at least Q4 hours as well as by RT. And will contact ST to discuss the swallow eval to possibly get to have NGT removed. Per ST Navya pt is aspirating and is at risk. Navya cannot do video swallow today 1/2 as she is not allowed to see pt today. Navya will contact Dr. Neri and Karolyn directly. RN called Karolyn,
--- NOTE | 2019-07-24 11:47 | Diagnostic Imaging Report ---
Indication: Shortness of breath Technique: One view of the chest Comparison: 07/21/2019 Findings: Left arm PICC remains. There is a nasogastric tube in place. Interstitial edema in the right lung appears slightly increased. However, there appears to be slightly improved aeration of the left lung, although there still considerable interstitial and airspace consolidation and volume loss. Scoliotic deformity, spinal fusion hardware, right-sided ventriculoperitoneal shunt tubing remains Impression: Shifting infiltrates or edema, slightly worsening on the right and slightly improving on the left, since prior exam of 07/21/2019
[2019-07-24 11:52] VITALS: BP 115/75
--- NOTE | 2019-07-24 12:01 | NUR ---
RD ASSESSMENT & RECOMMENDATIONS SEE CARE ACTIVITY FOR COMPLETE ASSESSMENT DAILY ESTIMATED NEEDS: Needs based on wound, critical care/ 47.6kg abw 25-30 kcals/kg 8247-0552 total kcals 1.25-2 g protein/kg 60-95 g total protein 25-30 mL/kg 3670-2432 total fluid mLs NUTRITION DIAGNOSIS: * Increased kcal/pro needs r/t wound healing as evidenced by h/o spina bifida, adm w/ full thickness wound @ sacrum and resolving pressure injury @ R-ischium. * Swallowing difficulty R/T respiratory status as evidenced by orally intubated, on NGT feeding. CURRENT TF:Jevity 1.2 @ 45ml/hr x 24 hrs ENTERAL NUTRITION RECOMMENDATIONS: Glucerna 1.2 @ 45ml/hr x24 hrs to provide 1080ml, 1296kcal, 65g prot, 869ml free water - Rec TF change to Glucerna 1.2 for GLYCEMIC CONTROL. - Start @25ml/hr for 6 hrs, advance as tolerated 10ml/hr q4-6 hrs to goal. - HOB over 30 degrees/ water flush of 140ml q 6hrs - TF at goal meets 100% est kcal and pro needs: ADDITIONAL RECOMMENDATIONS: 1) Wound care: add GREGG in 4oz H2O BID via NGT Add VIT C 500mg daily 2) Maintain calibrated bed scale wts 3) NISS for BG control on TF 4) F/up w/ HEALTHCARE PROJECT MANAGER eval for oral diet -> REC CCHO LOW HEALTHCARE PROJECT MANAGER recs for NGT feeds at this time .
--- NOTE | 2019-07-24 15:09 | Infectious Diseases Prog Note ---
Assessment/Plan Problems: (1) Pneumonia of both lower lobes Assessment & Plan: with shifting infiltrates and hypoxemia , suspect recurrent aspiration , already on meropenem and zyvox coverage for two weeks , will treat with meropenem and zyvox for two weeks . aspiration precaution, monitor CXR as per pulmonary . EOT 07/27/2019 (2) Catheter-associated urinary tract infection Assessment & Plan: with MDR pseudomonas aeruginosa , ESBL producing E coli and Enterococcus Faecalis vancomycin resistant , continue zyvox and meropenem for total of two weeks , continue local catheter care, recommend to change the suprapubic catheter if not done yet. D/W nurse (3) Sepsis Assessment & Plan: ruled out with negative blood culture x 2, already on wide spectrum antibiotics for pneumonia and CAUTI coverage (4) Decubitus skin ulcer Assessment & Plan: of the sacrum, continue off loading and local wound care as per hospital protocol (5) Respiratory failure with hypoxia Assessment & Plan: due to the above, with CO2 retention S/P intubation on mechanical ventilation , failing weaning trials , monitor ABG and CXR , pulmonary is following (6) At risk for aspiration pneumonia Assessment & Plan: aspiration precaution, may benefit from tube feeding , since weak oral phase Subjective Constitutional: Reports: no symptoms HEENT: Reports: no symptoms, congestion Respiratory: Reports: productive cough Breasts: Reports: no symptoms Cardiovascular: Reports: no symptoms Gastrointestinal/Abdominal: Reports: no symptoms Genitourinary: Reports: no symptoms Neurologic: Reports: no symptoms Psychiatric: Reports: no symptoms Skin: Reports: no symptoms Endocrine: Reports: no symptoms Hematologic: Reports: no symptoms Musculoskeletal: Reports: no symptoms Allergies: Coded Allergies: PENICILLIN G (Verified Allergy, Unknown, 12/02/18) Tolerates cabapenem, cephalosporin PENICILLINS (Unverified Allergy, Unknown, 12/02/18) Subjective she was lying in bed, awake and responsive , still coughing with high volume secretions via suctioning , on high flow oxygen . no fever or chills today , no diarrhea Objective Vital Signs Last 24 Hour Vital Signs Date Time Temp Pulse Resp B/P (MAP) Pulse Ox O2 Delivery O2 Flow Rate FiO2 07/24/19 13:45 97 20 97 Nasal Cannula 95 20 95 07/24/19 12:00 4.0 07/24/19 11:52 97.2 104 19 115/75 (88) 94 07/24/19 11:39 106 07/24/19 08:11 103 20 98 Nasal Cannula 101 20 92 07/24/19 08:10 92 Nasal Cannula 4.0 36 07/24/19 08:00 97.7 60 18 122/88 (99) 98 07/24/19 08:00 4.0 07/24/19 07:46 Nasal Cannula 4.0 07/24/19 07:24 99 07/24/19 04:06 4.0 07/24/19 04:00 98.0 99 18 126/74 (91) 99 07/24/19 04:00 101 07/24/19 00:29 101 16 96 Nasal Cannula 36 99 16 95 07/24/19 00:00 97.7 99 18 133/76 (95) 95 07/24/19 00:00 4.0 07/24/19 00:00 104 07/23/19 21:00 Nasal Cannula 4.0 07/23/19 20:00 4.0 07/23/19 20:00 104 07/23/19 20:00 97.9 89 20 125/68 (87) 100 07/23/19 18:58 116 24 90 Facial 40 07/23/19 18:57 95 Bi-Pap 40 07/23/19 16:00 97.9 108 18 113/69 (84) 98 07/23/19 16:00 4.0 07/23/19 15:30 110 Height (Feet): 4 Height (Inches): 10.00 Weight (Pounds): 161 General Appearance: WD/WN, no acute distress HEENT: normocephalic, atraumatic, anicteric, mucous membranes moist, PERRL Respiratory/Chest: chest wall non-tender, no respiratory distress, no accessory muscle use, decreased breath sounds, crackles/rales Cardiovascular: normal peripheral pulses, normal rate, regularly irregular, no gallop/murmur, no JVD Abdomen: normal bowel sounds, soft, non tender, no organomegaly, non distended , no mass, no scars Extremities: no cyanosis, no clubbing Skin: no rash, no lesions, no ulcers Neurologic/Psychiatric: alert, responsive Lymphatic: no neck adenopathy, no groin adenopathy Musculoskeletal: normal muscle bulk, no effusion Current Medications Medications (Trade) Dose Ordered Sig/Sandeep Route PRN Reason Start Time Stop Time Status Last Admin Dose Admin Acetaminophen (Tylenol) 650 mg Q6H PRN GT Mild Pain/Temp > 100.5 07/20/19 12:44 08/11/19 12:43 Acetylcysteine (Mucomyst) 200 mg Q6HRT N 07/20/19 13:00 08/16/19 18:59 07/24/19 13:00 Albuterol/ Ipratropium (Albuterol/ Ipratropium) 3 ml Q4H PRN N Shortness of Breath 07/22/19 13:15 07/27/19 13:14 Albuterol/ Ipratropium (Albuterol/ Ipratropium) 3 ml Q6HRT N 07/22/19 13:15 07/27/19 13:14 07/24/19 13:48 Apixaban (Eliquis) 5 mg BID GT 07/20/19 18:00 08/11/19 08:59 07/24/19 09:00 Chlorhexidine Gluconate (Debora-Hex 2%) 1 applic DAILY@2000 TOPIC 07/20/19 20:00 08/13/19 19:59 07/23/19 20:00 Famotidine (Pepcid) 20 mg BID GT 07/20/19 18:00 08/18/19 17:59 07/24/19 09:00 Linezolid 300 ml @ 300 mls/hr Q12HR IVPB 07/20/19 21:00 07/27/19 23:59 07/24/19 09:00 Meropenem 1 gm/ Sodium Chloride 55 ml @ 110 mls/hr Q8HR IVPB 07/20/19 14:00 07/27/19 23:59 07/24/19 14:46 Sennosides (Senokot) 8.6 mg BID GT 07/20/19 18:00 08/11/19 08:59 07/24/19 09:00 Gigi Sanabria M.D. Jul 24, 2019 15:09
--- NOTE | 2019-07-24 15:17 | General Progress Note ---
Assessment/Plan Status: stable Assessment/Plan: S, O: Extubated, awake, is following command, seems comfortable. lots of gurgling noises from upper respiratory tract, NG tube and Huber in place. PHYSICAL EXAMINATION:HEAD AND NECK: awake , Atraumatic, normocephalic. CHEST: Diffuse bronchial breathing sounds. No wheezing.HEART: S1, S2. Regular rate and rhythm. ABDOMEN: Obese, positive for suprapubic catheter.MUSCULOSKELETAL: The atrophy of the lower extremities, paraplegia are noted.NEUROLOGY: The patient is ex-tubated, not verbal, limited eval Medication and LABORATORY AND DIAGNOSTIC DATA: Dated Jul 24 reviewed ASSESSMENT AND PLAN: 1.VDRF, post extubation 2. Sepsis - healthcare associated. 3. Pneumonia, healthcare associated. 3. UTI - healthcare associated. 4. Congenital abnormalities, spina bifida, paraplegic, wheelchair-bound. 5. On New oral anticoagulation 6. GI and DVT prophylaxis. 7. Dysphagia, on NG tube, high risk for aspiration PLAN OF CARE: Current Pulmonary and ID care S/P Bronch, pending cultures Notes from ID Pulmonary reviewed Stable WBC counts, afebrile, Medically needs SNIF D/w the brother ( reportedly DPOA), updated about overall medical cnd on Jul 22. I called. I can not leave a VM Family requested transfer to [facility]. Subjective Allergies: Coded Allergies: PENICILLIN G (Verified Allergy, Unknown, 12/02/18) Tolerates cabapenem, cephalosporin PENICILLINS (Unverified Allergy, Unknown, 12/02/18) Objective Last 24 Hour Vital Signs Date Time Temp Pulse Resp B/P (MAP) Pulse Ox O2 Delivery O2 Flow Rate FiO2 07/24/19 13:45 97 20 97 Nasal Cannula 95 20 95 07/24/19 12:00 4.0 07/24/19 11:52 97.2 104 19 115/75 (88) 94 07/24/19 11:39 106 07/24/19 08:11 103 20 98 Nasal Cannula 101 20 92 07/24/19 08:10 92 Nasal Cannula 4.0 36 07/24/19 08:00 97.7 60 18 122/88 (99) 98 07/24/19 08:00 4.0 07/24/19 07:46 Nasal Cannula 4.0 07/24/19 07:24 99 07/24/19 04:06 4.0 07/24/19 04:00 98.0 99 18 126/74 (91) 99 07/24/19 04:00 101 07/24/19 00:29 101 16 96 Nasal Cannula 36 99 16 95 07/24/19 00:00 97.7 99 18 133/76 (95) 95 07/24/19 00:00 4.0 07/24/19 00:00 104 07/23/19 21:00 Nasal Cannula 4.0 07/23/19 20:00 4.0 07/23/19 20:00 104 07/23/19 20:00 97.9 89 20 125/68 (87) 100 07/23/19 18:58 116 24 90 Facial 40 07/23/19 18:57 95 Bi-Pap 40 07/23/19 16:00 97.9 108 18 113/69 (84) 98 07/23/19 16:00 4.0 07/23/19 15:30 110 Intake and Output 07/23/19 07/24/19 19:00 07:00 Output Total 800 ml 1400 ml Balance -800 ml -1400 ml Output Urine Total 800 ml 1400 ml # Bowel Movements 1 1 Height (Feet): 4 Height (Inches): 10.00 Weight (Pounds): 161 Denise Neri MD Jul 24, 2019 15:17
[2019-07-24 16:00] VITALS: BP 120/78
--- NOTE | 2019-07-24 16:48 | Pulmonology Progress Note ---
Assessment/Plan Problems: (1) Pneumonia of both lower lobes (2) Respiratory failure with hypoxia (3) UTI (urinary tract infection) (4) Paraplegia (5) Restrictive lung disease due to kyphoscoliosis (6) Pulmonary edema (7) Spina bifida Assessment/Plan Optimize pulmonary hygiene/mobilize as tolerated Titrate O2 HHN's and NAC Abx (OTILIA/Zyvox) per ID NPO, NGTF's, TALENT ACQUISITION RELATIONSHIP MANAGER therapy Monitor volumes and renal function DVT Px: Eliquis FC Subjective Allergies: Coded Allergies: PENICILLIN G (Verified Allergy, Unknown, 12/02/18) Tolerates cabapenem, cephalosporin PENICILLINS (Unverified Allergy, Unknown, 12/02/18) Subjective TTtele AFVSS O2 needs stable CXR worse + cough + SOB no FC Objective Last 24 Hour Vital Signs Date Time Temp Pulse Resp B/P (MAP) Pulse Ox O2 Delivery O2 Flow Rate FiO2 07/24/19 16:00 4.0 07/24/19 13:45 97 20 97 Nasal Cannula 95 20 95 07/24/19 12:00 4.0 07/24/19 11:52 97.2 104 19 115/75 (88) 94 07/24/19 11:39 106 07/24/19 08:11 103 20 98 Nasal Cannula 101 20 92 07/24/19 08:10 92 Nasal Cannula 4.0 36 07/24/19 08:00 97.7 60 18 122/88 (99) 98 07/24/19 08:00 4.0 07/24/19 07:46 Nasal Cannula 4.0 07/24/19 07:24 99 07/24/19 04:06 4.0 07/24/19 04:00 98.0 99 18 126/74 (91) 99 07/24/19 04:00 101 07/24/19 00:29 101 16 96 Nasal Cannula 36 99 16 95 07/24/19 00:00 97.7 99 18 133/76 (95) 95 07/24/19 00:00 4.0 07/24/19 00:00 104 07/23/19 21:00 Nasal Cannula 4.0 07/23/19 20:00 4.0 07/23/19 20:00 104 07/23/19 20:00 97.9 89 20 125/68 (87) 100 07/23/19 18:58 116 24 90 Facial 40 07/23/19 18:57 95 Bi-Pap 40 Intake and Output 07/23/19 07/24/19 19:00 07:00 Output Total 800 ml 1400 ml Balance -800 ml -1400 ml Output Urine Total 800 ml 1400 ml # Bowel Movements 1 1 General Appearance: no acute distress, cachetic HEENT: normocephalic, atraumatic, anicteric, mucous membranes moist Respiratory/Chest: rhonchi Cardiovascular: normal peripheral pulses, normal rate, regular rhythm Abdomen: normal bowel sounds, soft, non tender, no organomegaly, non distended Extremities: no cyanosis, no clubbing, no edema Current Medications Medications (Trade) Dose Ordered Sig/Sandeep Route PRN Reason Start Time Stop Time Status Last Admin Dose Admin Acetaminophen (Tylenol) 650 mg Q6H PRN GT Mild Pain/Temp > 100.5 07/20/19 12:44 08/11/19 12:43 Acetylcysteine (Mucomyst) 200 mg Q6HRT N 07/20/19 13:00 08/16/19 18:59 07/24/19 13:00 Albuterol/ Ipratropium (Albuterol/ Ipratropium) 3 ml Q4H PRN N Shortness of Breath 07/22/19 13:15 07/27/19 13:14 Albuterol/ Ipratropium (Albuterol/ Ipratropium) 3 ml Q6HRT N 07/22/19 13:15 07/27/19 13:14 07/24/19 13:48 Apixaban (Eliquis) 5 mg BID GT 07/20/19 18:00 08/11/19 08:59 07/24/19 09:00 Chlorhexidine Gluconate (Debora-Hex 2%) 1 applic DAILY@2000 TOPIC 07/20/19 20:00 08/13/19 19:59 07/23/19 20:00 Famotidine (Pepcid) 20 mg BID GT 07/20/19 18:00 08/18/19 17:59 07/24/19 09:00 Linezolid 300 ml @ 300 mls/hr Q12HR IVPB 07/20/19 21:00 07/27/19 23:59 07/24/19 09:00 Meropenem 1 gm/ Sodium Chloride 55 ml @ 110 mls/hr Q8HR IVPB 07/20/19 14:00 07/27/19 23:59 07/24/19 14:46 Sennosides (Senokot) 8.6 mg BID GT 07/20/19 18:00 08/11/19 08:59 07/24/19 09:00 Regino Pearson MD Jul 24, 2019 16:48
--- NOTE | 2019-07-24 19:29 | NUR ---
HAND-OFF: Report given to EMMA Berry. Pt stable. Family updated on transfer status.
--- NOTE | 2019-07-24 19:48 | NUR ---
NURSE NOTES: RECEIVED PATIENT RESTING IN BED, NO COMPLAINTS OF PAIN AT THIS TIME. FALL AND ASPIRATION PRECAUTIONS IN PLACE: CALL LIGHT WITHIN REACH, BED IN LOW POSITION AND BED ALARM ON; HOB ELEVATED AT LEAST 30 DEGREES. WILL CONTINUE WITH PLAN OF CARE.
[2019-07-24 20:00] VITALS: BP 111/70
[2019-07-24] MEDS: Dyna-Hex 2% Top Sol 2oz TOPIC SCH (20:37)
[2019-07-25] VITALS: BP 115/72
[2019-07-25] MEDS: Acetylcysteine 20% Soln 4ml HHN SCH ×4 (02:05→18:47)
[2019-07-25 04:00] VITALS: BP 135/65
[2019-07-25] MEDS: Meropenem 1 GM in NS 55 ML IVPB SCH ×2 (05:51→14:02)
[2019-07-25] MEDS: Albuterol/Ipratropium 3ml neb HHN SCH ×3 (07:28→18:46)
--- NOTE | 2019-07-25 07:28 | NUR ---
NURSE NOTES: Received report from Kristi CARTER. Pt alert and orientedx 2 with herself and purpose and able to follow the simple direction. Pt in bed and HOB elevated with 45 degree. On 4LPM via N/C. Bed in lowest position and locked. Call light within easy reach. Side railsx2 up for safety. No c/o pain. Denied SOB. IV site in left upper arm PICC with 2 lumens SL patent asymptomatic and able to flush to both lumens. Supra pubic cath in medial low abdomen patent and asymptomatic. Will continue to plan of care.
--- NOTE | 2019-07-25 07:28 | NUR ---
HAND-OFF: Report given to Timbo PETERSON RN. PATIENT ASLEEP, NO SIGNS OF DISTRESS NOTED.
[2019-07-25 08:00] VITALS: BP 135/75
[2019-07-25] MEDS: Eliquis 5mg tablet GT SCH ×3 (09:00→18:18)
[2019-07-25] MEDS: Sennosides 8.6mg tab GT SCH ×2 (09:40→18:08)
--- NOTE | 2019-07-25 11:54 | General Progress Note ---
Assessment/Plan Status: stable Assessment/Plan: S, O: Extubated,delirious today , is partially following command, seems comfortable. lots of gurgling noises from upper respiratory tract, NG tube and Huber in place. PHYSICAL EXAMINATION:HEAD AND NECK: awake , Atraumatic, normocephalic. CHEST: Diffuse bronchial breathing sounds. No wheezing.HEART: S1, S2. Regular rate and rhythm. ABDOMEN: Obese, positive for suprapubic catheter.MUSCULOSKELETAL: The atrophy of the lower extremities, paraplegia are noted.NEUROLOGY: The patient is ex-tubated, not verbal, limited eval Medication and LABORATORY AND DIAGNOSTIC DATA: Dated Jul 24 reviewed ASSESSMENT AND PLAN: 1.VDRF, post extubation 2. Sepsis - healthcare associated. 3. Pneumonia, healthcare associated. 3. UTI - healthcare associated. 4. Congenital abnormalities, spina bifida, paraplegic, wheelchair-bound. 5. On New oral anticoagulation 6. GI and DVT prophylaxis. 7. Dysphagia, on NG tube, high risk for aspiration PLAN OF CARE: Current Pulmonary and ID care S/P Bronch, pending cultures Notes from ID Pulmonary reviewed Stable WBC counts, afebrile, Medically needs SNIF D/w the brother ( reportedly DPOA), updated about overall medical cnd on Jul 22. I called IRON Brother, yesterday . I can not leave a VM Family requested transfer to [facility]. Subjective Allergies: Coded Allergies: PENICILLIN G (Verified Allergy, Unknown, 12/02/18) Tolerates cabapenem, cephalosporin PENICILLINS (Unverified Allergy, Unknown, 12/02/18) Objective Last 24 Hour Vital Signs Date Time Temp Pulse Resp B/P (MAP) Pulse Ox O2 Delivery O2 Flow Rate FiO2 07/25/19 09:00 Nasal Cannula 4.0 07/25/19 08:00 4.0 07/25/19 08:00 100 07/25/19 08:00 98.1 102 18 135/75 (95) 98 07/25/19 07:43 101 21 97 Nasal Cannula 108 22 96 07/25/19 07:28 96 Nasal Cannula 4.0 36 07/25/19 04:00 108 07/25/19 04:00 4.0 07/25/19 04:00 98.2 105 18 135/65 (88) 96 1/3/20 02:06 102 20 99 Nasal Cannula 103 20 97 07/25/19 01:00 102 17 90 Facial 40 07/25/19 00:00 4.0 07/25/19 00:00 97.8 102 19 115/72 (86) 93 07/25/19 00:00 103 07/24/19 21:00 Nasal Cannula 4.0 07/24/19 20:00 4.0 07/24/19 20:00 99 07/24/19 20:00 97.7 105 19 111/70 (84) 92 07/24/19 19:39 98 20 98 Nasal Cannula 97 20 96 07/24/19 19:37 96 Nasal Cannula 4.0 36 07/24/19 16:18 107 07/24/19 16:00 4.0 07/24/19 16:00 98.6 82 18 120/78 (92) 98 07/24/19 13:45 97 20 97 Nasal Cannula 95 20 95 07/24/19 12:00 4.0 Intake and Output 07/24/19 07/25/19 19:00 07:00 Intake Total 1080 ml Output Total 600 ml Balance 480 ml Intake Free Water 130 ml IV Total 410 ml Tube Feeding 540 ml Output Urine Total 600 ml # Bowel Movements 1 Height (Feet): 4 Height (Inches): 10.00 Weight (Pounds): 156 Denise Neri MD Jul 25, 2019 11:54
[2019-07-25 11:55] VITALS: BP 118/63
--- NOTE | 2019-07-25 12:31 | NUR ---
SWALLOW STATUS: PATIENT CLEARED FOR ST INTERVENTION BY RN MIN. PATIENT SEEN AT BEDSIDE AND WAS AGREEABLE TO INTERVENTION. BEFORE P.O. TRIALS OF HONEY THICK CONSISTENCY WERE PRESENTED, PATIENTS RESTING BASELINE FOR RESPIRATION RATE WAS TAKEN: SHE WAS BREATHING BETWEEN 30-36 BPM WHICH CONTRAINDICATES P.O. TRIALS. P.O. TRIALS DEFERRED. D/W RN: CONTINUE NON/ORAL FEEDING MANAGEMENT. HIGH ASPIRATION RISK.
--- NOTE | 2019-07-25 13:47 | NUR ---
CASE MANAGEMENT:REVIEW 07/25/19 SI: SEPSIS. PNA. UTI 98.6 103 20 118/63 98% ON 4L/NC IS: IV LINEZOLID Q12 IV MEROPENEM Q8HRS DUONEB HHN Q6HRS RTC MUCOMYST HHN Q6HRS RTC ELIQUIS GT BID PEPCID GT BID : TELEMETRY STATUS PLAN: PATIENT IS FROM HOME....FAMILY WANTS PATIENT TRANSFERRED TO [facility].
--- NOTE | 2019-07-25 13:49 | NUR ---
DISCHARGE PLANNING PATIENT'S MARCO A ZHANG IS DR AVINA...DR OLIVAS IS COVERING FOR DR KAILYN MARINO SPOKE WITH DR OLIVAS YESTERDAY AND REQUESTED HE PLACE PATIENT ON TRANSFER CENTER'S LIST AT [facility] CALLED [facility] AND SPOKE WITH SHWETA WHO STATED MD HAS NOT CALLED THEM TO ADD PATIENT TO LIST. HE ALSO MENTIONED THEY HAVE NOT RUN THE FINANCIAL[employer] [facility] T: [phone] Addendum: 07/25/19 at 1412 by DENISE ZAVALA LVN LVN RECEIVED CALL FROM GIANCARLO AT [facility] STATING DR MENDEZ CALLED AND PLACED PATIENT ON THE LIST FOR TRANSFER GIANCARLO REQUESTED ADDITIONAL CLINICALS TO BE FAXED ALONG WITH THE [facility], AGAIN. FAXED TO [facility] T: [phone] F: [phone]
--- NOTE | 2019-07-25 14:03 | Pulmonology Progress Note ---
Assessment/Plan Assessment/Plan Pulmonary Progress Note Assessment/Plan Problems: (1) Pneumonia of both lower lobes (2) Respiratory failure with hypoxia (3) UTI (urinary tract infection) (4) Paraplegia (5) Restrictive lung disease due to kyphoscoliosis (6) Pulmonary edema (7) Spina bifida Assessment/Plan Optimize pulmonary hygiene/mobilize as tolerated Titrate O2 HHN's and NAC Abx (OTILIA/Zyvox) per ID NPO, NGTF's, HEAD WRESTLING COACH therapy Monitor volumes and renal function DVT Px: Eliquis FC Subjective Allergies: Coded Allergies: PENICILLIN G (Verified Allergy, Unknown, 12/02/18) Tolerates cabapenem, cephalosporin PENICILLINS (Unverified Allergy, Unknown, 12/02/18) Subjective TTtele AFVSS O2 needs stable CXR worse + cough + SOB no FC Objective Vital Signs Noted General Appearance: no acute distress, cachetic HEENT: normocephalic, atraumatic, anicteric, mucous membranes moist Respiratory/Chest: rhonchi Cardiovascular: normal peripheral pulses, normal rate, regular rhythm Abdomen: normal bowel sounds, soft, non tender, no organomegaly, non distended Extremities: no cyanosis, no clubbing, no edema Current Medications Medications (Trade) Dose Ordered Sig/Sandeep Route PRN Reason Start Time Stop Time Status Last Admin Dose Admin Acetaminophen (Tylenol) 650 mg Q6H PRN GT Mild Pain/Temp > 100.5 07/20/19 12:44 08/11/19 12:43 Acetylcysteine (Mucomyst) 200 mg Q6HRT HHN 07/20/19 13:00 08/16/19 18:59 07/24/19 13:00 Albuterol/ Ipratropium (Albuterol/ Ipratropium) 3 ml Q4H PRN HHN Shortness of Breath 07/22/19 13:15 07/27/19 13:14 Albuterol/ Ipratropium (Albuterol/ Ipratropium) 3 ml Q6HRT HHN 07/22/19 13:15 07/27/19 13:14 07/24/19 13:48 Apixaban (Eliquis) 5 mg BID GT 07/20/19 18:00 08/11/19 08:59 07/24/19 09:00 Chlorhexidine Gluconate (Debora-Hex 2%) 1 applic DAILY@2000 TOPIC 07/20/19 20:00 08/13/19 19:59 07/23/19 20:00 Famotidine (Pepcid) 20 mg BID GT 07/20/19 18:00 08/18/19 17:59 07/24/19 09:00 Linezolid 300 ml @ 300 mls/hr Q12HR IVPB 07/20/19 21:00 07/27/19 23:59 07/24/19 09:00 Meropenem 1 gm/ Sodium Chloride 55 ml @ 110 mls/hr Q8HR IVPB 07/20/19 14:00 07/27/19 23:59 07/24/19 14:46 Sennosides (Senokot) 8.6 mg BID GT 07/20/19 18:00 08/11/19 08:59 07/24/19 09:00 Subjective ROS Limited/Unobtainable: No Allergies: Coded Allergies: PENICILLIN G (Verified Allergy, Unknown, 12/02/18) Tolerates cabapenem, cephalosporin PENICILLINS (Unverified Allergy, Unknown, 12/02/18) Objective Last 24 Hour Vital Signs Date Time Temp Pulse Resp B/P (MAP) Pulse Ox O2 Delivery O2 Flow Rate FiO2 07/25/19 12:00 99 07/25/19 12:00 4.0 07/25/19 11:55 98.6 103 20 118/63 (81) 97 07/25/19 09:00 Nasal Cannula 4.0 07/25/19 08:00 4.0 07/25/19 08:00 100 07/25/19 08:00 98.1 102 18 135/75 (95) 98 07/25/19 07:43 101 21 97 Nasal Cannula 108 22 96 07/25/19 07:28 96 Nasal Cannula 4.0 36 07/25/19 04:00 108 07/25/19 04:00 4.0 07/25/19 04:00 98.2 105 18 135/65 (88) 96 07/25/19 02:06 102 20 99 Nasal Cannula 103 20 97 07/25/19 01:00 102 17 90 Facial 40 07/25/19 00:00 4.0 07/25/19 00:00 97.8 102 19 115/72 (86) 93 07/25/19 00:00 103 07/24/19 21:00 Nasal Cannula 4.0 07/24/19 20:00 4.0 07/24/19 20:00 99 07/24/19 20:00 97.7 105 19 111/70 (84) 92 07/24/19 19:39 98 20 98 Nasal Cannula 97 20 96 07/24/19 19:37 96 Nasal Cannula 4.0 36 07/24/19 16:18 107 07/24/19 16:00 4.0 07/24/19 16:00 98.6 82 18 120/78 (92) 98 Intake and Output 07/24/19 07/25/19 19:00 07:00 Intake Total 1080 ml Output Total 600 ml Balance 480 ml Intake Free Water 130 ml IV Total 410 ml Tube Feeding 540 ml Output Urine Total 600 ml # Bowel Movements 1 Current Medications Medications (Trade) Dose Ordered Sig/Sandeep Route PRN Reason Start Time Stop Time Status Last Admin Dose Admin Acetaminophen (Tylenol) 650 mg Q6H PRN GT Mild Pain/Temp > 100.5 07/20/19 12:44 08/11/19 12:43 Acetylcysteine (Mucomyst) 200 mg Q6HRT N 07/20/19 13:00 08/16/19 18:59 07/25/19 13:10 Albuterol/ Ipratropium (Albuterol/ Ipratropium) 3 ml Q4H PRN HHN Shortness of Breath 07/22/19 13:15 07/27/19 13:14 Albuterol/ Ipratropium (Albuterol/ Ipratropium) 3 ml Q6HRT N 07/22/19 13:15 07/27/19 13:14 07/25/19 13:10 Apixaban (Eliquis) 5 mg BID GT 07/20/19 18:00 08/11/19 08:59 07/25/19 09:40 Chlorhexidine Gluconate (Debora-Hex 2%) 1 applic DAILY@1999 TOPIC 07/20/19 20:00 08/13/19 19:59 07/24/19 20:37 Famotidine (Pepcid) 20 mg BID GT 07/20/19 18:00 08/18/19 17:59 07/25/19 09:40 Linezolid 300 ml @ 300 mls/hr Q12HR IVPB 07/20/19 21:00 07/27/19 23:59 07/25/19 09:41 Meropenem 1 gm/ Sodium Chloride 55 ml @ 110 mls/hr Q8HR IVPB 07/20/19 14:00 07/27/19 23:59 07/25/19 05:51 Sennosides (Senokot) 8.6 mg BID GT 07/20/19 18:00 08/11/19 08:59 07/25/19 09:40 Perfecto Youngblood MD Jul 25, 2019 14:03
--- NOTE | 2019-07-25 15:13 | Infectious Diseases Prog Note ---
Assessment/Plan Problems: (1) Pneumonia of both lower lobes Assessment & Plan: with shifting infiltrates and hypoxemia , suspect recurrent aspiration , already on meropenem and zyvox coverage for two weeks , will treat with meropenem and zyvox for two weeks . aspiration precaution, monitor CXR as per pulmonary , may need tube feeding and tracheostomy . EOT 07/27/2019 (2) Catheter-associated urinary tract infection Assessment & Plan: with MDR pseudomonas aeruginosa , ESBL producing E coli and Enterococcus Faecalis vancomycin resistant , continue zyvox and meropenem for total of two weeks , continue local catheter care, recommend to change the suprapubic catheter if not done yet. D/W nurse (3) Sepsis Assessment & Plan: ruled out with negative blood culture x 2, already on wide spectrum antibiotics for pneumonia and CAUTI coverage (4) Decubitus skin ulcer Assessment & Plan: of the sacrum, continue off loading and local wound care as per hospital protocol (5) Respiratory failure with hypoxia Assessment & Plan: due to the above, with CO2 retention S/P intubation on mechanical ventilation , failing weaning trials , monitor ABG and CXR , pulmonary is following (6) At risk for aspiration pneumonia Assessment & Plan: aspiration precaution, may benefit from tube feeding , since weak oral phase Subjective Constitutional: Reports: no symptoms HEENT: Reports: no symptoms Respiratory: Reports: productive cough Breasts: Reports: no symptoms Cardiovascular: Reports: no symptoms Gastrointestinal/Abdominal: Reports: no symptoms Genitourinary: Reports: no symptoms Neurologic: Reports: no symptoms Psychiatric: Reports: no symptoms Skin: Reports: no symptoms Endocrine: Reports: no symptoms Hematologic: Reports: no symptoms Musculoskeletal: Reports: no symptoms Allergies: Coded Allergies: PENICILLIN G (Verified Allergy, Unknown, 12/02/18) Tolerates cabapenem, cephalosporin PENICILLINS (Unverified Allergy, Unknown, 12/02/18) Subjective she was lying in bed, awake and responsive , still coughing with high volume secretions via suctioning , on high flow oxygen . no fever or chills today , no diarrhea Objective Vital Signs Last 24 Hour Vital Signs Date Time Temp Pulse Resp B/P (MAP) Pulse Ox O2 Delivery O2 Flow Rate FiO2 07/25/19 13:25 106 21 98 Nasal Cannula 102 20 94 07/25/19 12:00 99 07/25/19 12:00 4.0 07/25/19 11:55 98.6 103 20 118/63 (81) 97 07/25/19 09:00 Nasal Cannula 4.0 07/25/19 08:00 4.0 07/25/19 08:00 100 07/25/19 08:00 98.1 102 18 135/75 (95) 98 07/25/19 07:43 101 21 97 Nasal Cannula 108 22 96 07/25/19 07:28 96 Nasal Cannula 4.0 36 07/25/19 04:00 108 07/25/19 04:00 4.0 07/25/19 04:00 98.2 105 18 135/65 (88) 96 07/25/19 02:06 102 20 99 Nasal Cannula 103 20 97 07/25/19 01:00 102 17 90 Facial 40 07/25/19 00:00 4.0 07/25/19 00:00 97.8 102 19 115/72 (86) 93 07/25/19 00:00 103 07/24/19 21:00 Nasal Cannula 4.0 07/24/19 20:00 4.0 07/24/19 20:00 99 07/24/19 20:00 97.7 105 19 111/70 (84) 92 07/24/19 19:39 98 20 98 Nasal Cannula 97 20 96 07/24/19 19:37 96 Nasal Cannula 4.0 36 07/24/19 16:18 107 07/24/19 16:00 4.0 07/24/19 16:00 98.6 82 18 120/78 (92) 98 Height (Feet): 4 Height (Inches): 10.00 Weight (Pounds): 156 General Appearance: WD/WN, no acute distress HEENT: normocephalic, atraumatic, anicteric, mucous membranes moist, PERRL Respiratory/Chest: chest wall non-tender, no respiratory distress, no accessory muscle use, decreased breath sounds, crackles/rales Cardiovascular: normal peripheral pulses, normal rate, regular rhythm, no gallop/murmur, no JVD Abdomen: normal bowel sounds, soft, non tender, no organomegaly, non distended , no mass, no scars Genitourinary: normal external genitalia Extremities: no cyanosis, no clubbing Skin: no rash, no lesions, ulcers 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, alert, responsive Lymphatic: no neck adenopathy, no groin adenopathy Musculoskeletal: normal muscle bulk, no effusion Current Medications Medications (Trade) Dose Ordered Sig/Sandeep Route PRN Reason Start Time Stop Time Status Last Admin Dose Admin Acetaminophen (Tylenol) 650 mg Q6H PRN GT Mild Pain/Temp > 100.5 07/20/19 12:44 08/11/19 12:43 Acetylcysteine (Mucomyst) 200 mg Q6HRT N 07/20/19 13:00 08/16/19 18:59 07/25/19 13:10 Albuterol/ Ipratropium (Albuterol/ Ipratropium) 3 ml Q4H PRN N Shortness of Breath 07/22/19 13:15 07/27/19 13:14 Albuterol/ Ipratropium (Albuterol/ Ipratropium) 3 ml Q6HRT N 07/22/19 13:15 07/27/19 13:14 07/25/19 13:10 Apixaban (Eliquis) 5 mg BID GT 07/20/19 18:00 08/11/19 08:59 07/25/19 09:40 Chlorhexidine Gluconate (Debora-Hex 2%) 1 applic DAILY@2000 TOPIC 07/20/19 20:00 08/13/19 19:59 07/24/19 20:37 Famotidine (Pepcid) 20 mg BID GT 07/20/19 18:00 08/18/19 17:59 07/25/19 09:40 Linezolid 300 ml @ 300 mls/hr Q12HR IVPB 07/20/19 21:00 07/27/19 23:59 07/25/19 09:41 Meropenem 1 gm/ Sodium Chloride 55 ml @ 110 mls/hr Q8HR IVPB 07/20/19 14:00 07/27/19 23:59 07/25/19 14:02 Sennosides (Senokot) 8.6 mg BID GT 07/20/19 18:00 08/11/19 08:59 07/25/19 09:40 Gigi Sanabria M.D. Jul 25, 2019 15:13
[2019-07-25 16:00] VITALS: BP 129/62
[2019-07-25] MEDS ORDERED: Fleet's Enema 133ml RECTAL SCH (16:00)
--- NOTE | 2019-07-25 19:30 | NUR ---
NURSE NOTES: Received report from BRIAN Aguiar. Patient is in bed, awake and responsive to verbal and tactile stimuli. Breathing regular and unlabored with no s/s of SOB noted, however patient sounds congested. Patient has CPT around the clock, every 4 hours. Patient is on a NC at 4L to maintain saturation above 92%. Patient has a PICC on the L upper arm, patent and intact. Patient also has a NGT in place in the L nostril, patent, intact, with no residual present, running Jevity 1.2 at 45ml/hr. Patient is not in any distress at this time. Bed is in lowest position, breaks engaged, and call light within reach. All needs attended to, will continue to monitor.
--- NOTE | 2019-07-25 19:30 | NUR ---
HAND-OFF: Report given to Stefania TORRES. Pt remains stable.
[2019-07-25 20:00] VITALS: BP 121/71
--- NOTE | 2019-07-25 21:30 | NUR ---
NURSE NOTES: Patient's saturation remains in the high 80's and low 90's. Patient is not in any distress. RT saw patient and all the scheduled treatments provided. No distress noted at this time, will continue to monitor.
[2019-07-25] MEDS: Dyna-Hex 2% Top Sol 2oz TOPIC SCH (22:19)
[2019-07-26] VITALS: BP 130/71
[2019-07-26] MEDS: Meropenem 1 GM in NS 55 ML IVPB SCH ×4 (00:04→22:08)
[2019-07-26] MEDS: Albuterol/Ipratropium 3ml neb HHN SCH ×4 (01:29→21:07)
[2019-07-26] MEDS: Acetylcysteine 20% Soln 4ml HHN SCH ×4 (01:29→21:08)
[2019-07-26 04:00] VITALS: BP 111/69
--- NOTE | 2019-07-26 07:14 | NUR ---
HAND-OFF: Report given to EMMA Padilla. Plan of care endorsed.
--- NOTE | 2019-07-26 07:14 | NUR ---
NURSE NOTES: Nurse report given by EMMA Moody. Patient's laying in bed on Semi-greer position. AO x 2, denies pain, no s/s of distress or SOB, bed low and locked, call light within reach, side rails x 2, bed alarm is armed. Patient has suprapubic catheter, draining well. IV is PICC double lumens, no s/s of tenderness or redness. Patient's on NGT feeding, running 45cc, placement was checked with air and X-ray confirmation. Patient's on 4 L nasal cannula, saturated at 95%. Will continue to monitor.
[2019-07-26 08:00] VITALS: BP 137/85
[2019-07-26] MEDS: Sennosides 8.6mg tab GT SCH ×2 (09:01→17:29)
[2019-07-26] MEDS: Eliquis 5mg tablet GT SCH ×2 (09:01→17:29)
--- NOTE | 2019-07-26 11:36 | General Progress Note ---
Assessment/Plan Status: stable Assessment/Plan: S, O: Extubated,delirious today , is partially following command, seems comfortable. lots of gurgling noises from upper respiratory tract, NG tube and Huber in place. PHYSICAL EXAMINATION:HEAD AND NECK: awake , Atraumatic, normocephalic. CHEST: Diffuse bronchial breathing sounds. No wheezing.HEART: S1, S2. Regular rate and rhythm. ABDOMEN: Obese, positive for suprapubic catheter.MUSCULOSKELETAL: The atrophy of the lower extremities, paraplegia are noted.NEUROLOGY: The patient is ex-tubated, not verbal, limited eval Medication and LABORATORY AND DIAGNOSTIC DATA: Dated Jul 26 reviewed ASSESSMENT AND PLAN: 1.VDRF, post extubation 2. Sepsis - healthcare associated. 3. Pneumonia, healthcare associated. 3. UTI - healthcare associated. 4. Congenital abnormalities, spina bifida, paraplegic, wheelchair-bound. 5. On New oral anticoagulation 6. GI and DVT prophylaxis. 7. Dysphagia, on NG tube, high risk for aspiration PLAN OF CARE: Current Pulmonary and ID care S/P Bronch, pending cultures Notes from ID Pulmonary reviewed Stable WBC counts, afebrile, Medically needs SNIF D/w the brother ( reportedly DPOA), updated about overall medical cnd on Jul 22. I called IRON Brother, Jul 25 . I can not leave a VM Family requested transfer to [facility]. Patient is on waiting list Subjective Allergies: Coded Allergies: PENICILLIN G (Verified Allergy, Unknown, 12/02/18) Tolerates cabapenem, cephalosporin PENICILLINS (Unverified Allergy, Unknown, 12/02/18) Objective Last 24 Hour Vital Signs Date Time Temp Pulse Resp B/P (MAP) Pulse Ox O2 Delivery O2 Flow Rate FiO2 07/26/19 09:00 Nasal Cannula 4.0 07/26/19 08:00 4.0 07/26/19 08:00 101 07/26/19 08:00 97.7 103 19 137/85 (102) 96 07/26/19 07:59 105 18 98 Nasal Cannula 4.0 36 100 22 96 07/26/19 07:58 96 Nasal Cannula 4.0 36 07/26/19 04:00 99 07/26/19 04:00 98.6 100 24 111/69 (83) 96 07/26/19 04:00 4.0 07/26/19 01:29 98 18 96 Nasal Cannula 4.0 36 94 20 94 07/26/19 00:00 98 07/26/19 00:00 4.0 07/26/19 00:00 97.5 95 19 130/71 (90) 92 07/25/19 21:00 Nasal Cannula 4.0 07/25/19 20:00 4.0 07/25/19 20:00 97.9 100 17 121/71 (88) 92 07/25/19 20:00 99 07/25/19 19:26 102 20 97 Nasal Cannula 99 22 96 07/25/19 19:26 95 Nasal Cannula 4.0 36 07/25/19 16:00 97.0 106 18 129/62 (84) 98 07/25/19 16:00 4.0 07/25/19 16:00 106 07/25/19 13:25 106 21 98 Nasal Cannula 102 20 94 07/25/19 12:00 99 07/25/19 12:00 4.0 07/25/19 11:55 98.6 103 20 118/63 (81) 97 Intake and Output 07/25/19 07/26/19 19:00 07:00 Intake Total 45 ml 360 ml Output Total 400 ml Balance -355 ml 360 ml Tube Feeding 45 ml 360 ml Output Urine Total 400 ml # Voids 1 Height (Feet): 4 Height (Inches): 10.00 Weight (Pounds): 158 Denise Neri MD Jul 26, 2019 11:36
[2019-07-26 12:00] VITALS: BP 139/82
--- NOTE | 2019-07-26 14:43 | Infectious Diseases Prog Note ---
Assessment/Plan Problems: (1) Pneumonia of both lower lobes Assessment & Plan: with shifting infiltrates and hypoxemia , suspect recurrent aspiration , already on meropenem and zyvox coverage for two weeks . aspiration precaution, monitor CXR as per pulmonary , may need tube feeding and tracheostomy . EOT 07/27/2019 (2) Catheter-associated urinary tract infection Assessment & Plan: with MDR pseudomonas aeruginosa , ESBL producing E coli and Enterococcus Faecalis vancomycin resistant , continue zyvox and meropenem for total of two weeks , continue local catheter care, recommend to change the suprapubic catheter if not done yet. D/W nurse (3) Sepsis Assessment & Plan: ruled out with negative blood culture x 2, already on wide spectrum antibiotics for pneumonia and CAUTI coverage (4) Decubitus skin ulcer Assessment & Plan: of the sacrum, continue off loading and local wound care as per hospital protocol (5) Respiratory failure with hypoxia Assessment & Plan: due to the above, with CO2 retention S/P intubation on mechanical ventilation , failing weaning trials , monitor ABG and CXR , pulmonary is following (6) At risk for aspiration pneumonia Assessment & Plan: aspiration precaution, may benefit from tube feeding , since weak oral phase Subjective Constitutional: Reports: no symptoms HEENT: Reports: no symptoms Respiratory: Reports: shortness of breath, productive cough Breasts: Reports: no symptoms Cardiovascular: Reports: no symptoms Gastrointestinal/Abdominal: Reports: no symptoms Genitourinary: Reports: no symptoms Neurologic: Reports: no symptoms Psychiatric: Reports: no symptoms Skin: Reports: no symptoms Endocrine: Reports: no symptoms Hematologic: Reports: no symptoms Musculoskeletal: Reports: no symptoms Allergies: Coded Allergies: PENICILLIN G (Verified Allergy, Unknown, 12/02/18) Tolerates cabapenem, cephalosporin PENICILLINS (Unverified Allergy, Unknown, 12/02/18) Subjective she was lying in bed, awake and responsive , still coughing and congested , with high volume secretions via suctioning , on high flow oxygen . no fever or chills today , no diarrhea Objective Vital Signs Last 24 Hour Vital Signs Date Time Temp Pulse Resp B/P (MAP) Pulse Ox O2 Delivery O2 Flow Rate FiO2 07/26/19 12:00 97.9 100 18 139/82 (101) 96 07/26/19 12:00 97 07/26/19 12:00 4.0 1/4/20 09:00 Nasal Cannula 4.0 07/26/19 08:00 4.0 07/26/19 08:00 101 07/26/19 08:00 97.7 103 19 137/85 (102) 96 07/26/19 07:59 105 18 98 Nasal Cannula 4.0 36 100 22 96 07/26/19 07:58 96 Nasal Cannula 4.0 36 07/26/19 04:00 99 07/26/19 04:00 98.6 100 24 111/69 (83) 96 07/26/19 04:00 4.0 07/26/19 01:29 98 18 96 Nasal Cannula 4.0 36 94 20 94 07/26/19 00:00 98 07/26/19 00:00 4.0 07/26/19 00:00 97.5 95 19 130/71 (90) 92 07/25/19 21:00 Nasal Cannula 4.0 07/25/19 20:00 4.0 07/25/19 20:00 97.9 100 17 121/71 (88) 92 07/25/19 20:00 99 07/25/19 19:26 102 20 97 Nasal Cannula 99 22 96 07/25/19 19:26 95 Nasal Cannula 4.0 36 07/25/19 16:00 97.0 106 18 129/62 (84) 98 07/25/19 16:00 4.0 07/25/19 16:00 106 Height (Feet): 4 Height (Inches): 10.00 Weight (Pounds): 158 General Appearance: WD/WN, no acute distress HEENT: normocephalic, atraumatic, anicteric, mucous membranes moist, PERRL Respiratory/Chest: chest wall non-tender, no respiratory distress, no accessory muscle use, decreased breath sounds, crackles/rales, expiratory wheezing Cardiovascular: normal peripheral pulses, normal rate, regular rhythm, no gallop/murmur, no JVD Abdomen: normal bowel sounds, soft, non tender, no organomegaly, non distended , no mass, no scars Genitourinary: normal external genitalia Extremities: no cyanosis, no clubbing Skin: no rash, no lesions, no ulcers 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, alert, responsive Lymphatic: no neck adenopathy, no groin adenopathy Musculoskeletal: normal muscle bulk, no effusion Current Medications Medications (Trade) Dose Ordered Sig/Sandeep Route PRN Reason Start Time Stop Time Status Last Admin Dose Admin Acetaminophen (Tylenol) 650 mg Q6H PRN GT Mild Pain/Temp > 100.5 07/20/19 12:44 08/11/19 12:43 Acetylcysteine (Mucomyst) 200 mg Q6HRT N 07/20/19 13:00 08/16/19 18:59 07/26/19 07:58 Albuterol/ Ipratropium (Albuterol/ Ipratropium) 3 ml Q4H PRN HHN Shortness of Breath 07/22/19 13:15 07/27/19 13:14 Albuterol/ Ipratropium (Albuterol/ Ipratropium) 3 ml Q6HRT N 07/22/19 13:15 07/27/19 13:14 07/26/19 07:58 Apixaban (Eliquis) 5 mg BID GT 07/25/19 18:11 08/24/19 18:10 07/26/19 09:01 Chlorhexidine Gluconate (Debora-Hex 2%) 1 applic DAILY@2000 TOPIC 07/20/19 20:00 08/13/19 19:59 07/25/19 22:19 Famotidine (Pepcid) 20 mg BID GT 07/20/19 18:00 08/18/19 17:59 07/26/19 09:01 Linezolid 300 ml @ 300 mls/hr Q12HR IVPB 07/20/19 21:00 07/27/19 23:59 07/26/19 09:01 Meropenem 1 gm/ Sodium Chloride 55 ml @ 110 mls/hr Q8HR IVPB 07/20/19 14:00 07/27/19 23:59 07/26/19 14:40 Sennosides (Senokot) 8.6 mg BID GT 07/20/19 18:00 08/11/19 08:59 07/26/19 09:01 Gigi Sanabria M.D. Jul 26, 2019 14:43
[2019-07-26 16:00] VITALS: BP 136/69
[2019-07-26] MEDS ORDERED: Tubing IV Secondary IV ONE (16:49)
[2019-07-26] MEDS ORDERED: NS 275ml ONE (16:49)
--- NOTE | 2019-07-26 19:12 | NUR ---
HAND-OFF: Report given to EMMA Moody. Plan of care endorsed, patient's stable.
[2019-07-26 20:00] VITALS: BP 138/88
[2019-07-26] MEDS: Dyna-Hex 2% Top Sol 2oz TOPIC SCH (20:08)
--- NOTE | 2019-07-26 20:39 | NUR ---
NURSE NOTES: Received report from EMMA Padilla. Patient is in bed, awake and responsive. Breathing regular and unlabored with no s/s of SOB noted, however patient is very congested. Patient has CPT around the clock. Patient is currently on a 4L NC with saturation of 94%. Patient's PICC line is intact, patent and saline locked. NGT is patent, intact and running feeding of Jevity 1.2 at 45mls/hr. Patient has a suprapubic catheter in place with presence of christy/yellow like urine. No c/o pain noted. Patient is not in any acute distress at this time. Bed is in lowest position, breaks engaged, and call light is within reach. All other needs attended to, will continue to monitor.
--- NOTE | 2019-07-26 21:15 | Pulmonology Progress Note ---
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 therapy Monitor volumes and renal function DVT Px: Eliquis FC Subjective Allergies: Coded Allergies: PENICILLIN G (Verified Allergy, Unknown, 12/02/18) Tolerates cabapenem, cephalosporin PENICILLINS (Unverified Allergy, Unknown, 12/02/18) Subjective TTtele AFVSS O2 needs stable CXR worse + cough + SOB no FC Objective Vital Signs Noted General Appearance: no acute distress, cachetic HEENT: normocephalic, atraumatic, anicteric, mucous membranes moist Respiratory/Chest: rhonchi Cardiovascular: normal peripheral pulses, normal rate, regular rhythm Abdomen: normal bowel sounds, soft, non tender, no organomegaly, non distended Extremities: no cyanosis, no clubbing, no edema Current Medications Medications (Trade) Dose Ordered Sig/Sandeep Route PRN Reason Start Time Stop Time Status Last Admin Dose Admin Acetaminophen (Tylenol) 650 mg Q6H PRN GT Mild Pain/Temp > 100.5 07/20/19 12:44 08/11/19 12:43 Acetylcysteine (Mucomyst) 200 mg Q6HRT HHN 07/20/19 13:00 08/16/19 18:59 07/24/19 13:00 Albuterol/ Ipratropium (Albuterol/ Ipratropium) 3 ml Q4H PRN HHN Shortness of Breath 07/22/19 13:15 07/27/19 13:14 Albuterol/ Ipratropium (Albuterol/ Ipratropium) 3 ml Q6HRT HHN 07/22/19 13:15 07/27/19 13:14 07/24/19 13:48 Apixaban (Eliquis) 5 mg BID GT 07/20/19 18:00 08/11/19 08:59 07/24/19 09:00 Chlorhexidine Gluconate (Debora-Hex 2%) 1 applic DAILY@2000 TOPIC 07/20/19 20:00 08/13/19 19:59 07/23/19 20:00 Famotidine (Pepcid) 20 mg BID GT 07/20/19 18:00 08/18/19 17:59 07/24/19 09:00 Linezolid 300 ml @ 300 mls/hr Q12HR IVPB 07/20/19 21:00 07/27/19 23:59 07/24/19 09:00 Meropenem 1 gm/ Sodium Chloride 55 ml @ 110 mls/hr Q8HR IVPB 07/20/19 14:00 07/27/19 23:59 07/24/19 14:46 Sennosides (Senokot) 8.6 mg BID GT 07/20/19 18:00 08/11/19 08:59 07/24/19 09:00 Subjective ROS Limited/Unobtainable: No Allergies: Coded Allergies: PENICILLIN G (Verified Allergy, Unknown, 12/02/18) Tolerates cabapenem, cephalosporin PENICILLINS (Unverified Allergy, Unknown, 12/02/18) Objective Last 24 Hour Vital Signs Date Time Temp Pulse Resp B/P (MAP) Pulse Ox O2 Delivery O2 Flow Rate FiO2 07/26/19 16:00 98.2 102 20 136/69 (91) 93 07/26/19 16:00 4.0 07/26/19 16:00 96 07/26/19 14:46 102 20 97 Nasal Cannula 4.0 36 99 20 89 07/26/19 12:00 97.9 100 18 139/82 (101) 96 07/26/19 12:00 97 07/26/19 12:00 4.0 07/26/19 09:00 Nasal Cannula 4.0 07/26/19 08:00 4.0 07/26/19 08:00 101 07/26/19 08:00 97.7 103 19 137/85 (102) 96 07/26/19 07:59 105 18 98 Nasal Cannula 4.0 36 100 22 96 07/26/19 07:58 96 Nasal Cannula 4.0 36 07/26/19 04:00 99 07/26/19 04:00 98.6 100 24 111/69 (83) 96 07/26/19 04:00 4.0 1/4/20 01:29 98 18 96 Nasal Cannula 4.0 36 94 20 94 07/26/19 00:00 98 07/26/19 00:00 4.0 07/26/19 00:00 97.5 95 19 130/71 (90) 92 Intake and Output 07/25/19 07/26/19 19:00 07:00 Intake Total 45 ml 360 ml Output Total 400 ml Balance -355 ml 360 ml Tube Feeding 45 ml 360 ml Output Urine Total 400 ml # Voids 1 Current Medications Medications (Trade) Dose Ordered Sig/Sandeep Route PRN Reason Start Time Stop Time Status Last Admin Dose Admin Acetaminophen (Tylenol) 650 mg Q6H PRN GT Mild Pain/Temp > 100.5 07/20/19 12:44 08/11/19 12:43 Acetylcysteine (Mucomyst) 200 mg Q6HRT N 07/20/19 13:00 08/16/19 18:59 07/26/19 21:08 Albuterol/ Ipratropium (Albuterol/ Ipratropium) 3 ml Q4H PRN N Shortness of Breath 07/22/19 13:15 07/27/19 13:14 Albuterol/ Ipratropium (Albuterol/ Ipratropium) 3 ml Q6HRT N 07/22/19 13:15 07/27/19 13:14 07/26/19 21:07 Apixaban (Eliquis) 5 mg BID GT 07/25/19 18:11 08/24/19 18:10 07/26/19 17:29 Chlorhexidine Gluconate (Debora-Hex 2%) 1 applic DAILY@2000 TOPIC 07/20/19 20:00 08/13/19 19:59 07/26/19 20:08 Famotidine (Pepcid) 20 mg BID GT 07/20/19 18:00 08/18/19 17:59 07/26/19 17:29 Linezolid 300 ml @ 300 mls/hr Q12HR IVPB 07/20/19 21:00 07/27/19 23:59 07/26/19 20:08 Meropenem 1 gm/ Sodium Chloride 55 ml @ 110 mls/hr Q8HR IVPB 07/20/19 14:00 07/27/19 23:59 07/26/19 14:40 Sennosides (Senokot) 8.6 mg BID GT 07/20/19 18:00 08/11/19 08:59 07/26/19 17:29 Perfecto Youngblood MD Jul 26, 2019 21:15
--- NOTE | 2019-07-26 22:00 | NUR ---
NURSE NOTES: RT placed the patient on BIPAP per MD orders, turned off the patients NGT feeding because it interferes with the BIPAP. Per MD orders, after placement of the BIPAP, ABG's were drawn. The results came back. Notified Dr. Youngblood about the abnormal results at 0140. No response yet. Will wait for any changes. Patient remains on the BIPAP, saturating in the 90's. Currently stable with no acute distress noted. Will continue to monitor.
[2019-07-27] VITALS (8 sets, daily range): BP systolic 109–139; BP diastolic 56–86
[2019-07-27] MEDS: Albuterol/Ipratropium 3ml neb HHN SCH ×3 (01:32→13:25)
[2019-07-27] MEDS: Acetylcysteine 20% Soln 4ml HHN SCH ×4 (01:32→19:00)
[2019-07-27] MEDS: Meropenem 1 GM in NS 55 ML IVPB SCH ×3 (05:41→22:48)
--- NOTE | 2019-07-27 07:40 | NUR ---
NURSE NOTES: Received report from EMMA Moody. The patient is on 4L NC but SpO2 is 90%. The patient's bed in the lowest position, call light in reach, and fall and aspiration precaution reinforced. JASON PICC line double lumen intact and patent. Notified abnormal ABG to Dr. Pearson and Dr. Youngblood. Asked the respiratory therapist to check the condition while the primary nurse at the bedside. Will continue plan of care.
--- NOTE | 2019-07-27 07:40 | NUR ---
HAND-OFF: Report given to EMMA Meek. Patient is stable, endorsed plan of care.
--- NOTE | 2019-07-27 08:00 | NUR ---
NURSE NOTES: Received bilateral wrist soft restraints order from Dr. Neri for pulling out Bipap and episode of dropping SpO2 after she pulled out her Bipap. Will carry out the order as soon as possible. Will continue plan of care.
[2019-07-27] MEDS: Eliquis 5mg tablet GT SCH ×2 (09:34→17:58)
[2019-07-27] MEDS: Sennosides 8.6mg tab GT SCH ×2 (09:34→17:58)
--- NOTE | 2019-07-27 11:10 | NUR ---
NURSE NOTES: CORE INSERTER called @1110 due to episode of oxygen desaturation. The patient's SpO2 dropped to 81% even though the patient was on Bipap. Notified to Dr. Youngblood, Dr. Pearson, and Dr. Neri for the CORE INSERTER. No new order. The patient's vital signs are as follows: BP-114/56, HR-89, SpO2 84% initial and increased to 90% after adjusting Bipap, Temp-98.0F, and BS-114. Stat ABG done. RT came and adjusted the Bipap for the patient. Pending for ABG result. Will carry out the order as soon as possible as the physician orders. Will continue plan of care.
--- NOTE | 2019-07-27 11:30 | NUR ---
NURSE NOTES: Notified abnormal ABG result to Dr. Youngblood and Dr. Pearson. No new order. Will continue plan of care.
--- NOTE | 2019-07-27 14:00 | NUR ---
NURSE NOTES: The patient is on Bipap for breathing support. The patient is stable. Will continue plan of care.
--- NOTE | 2019-07-27 15:07 | NUR ---
NURSE NOTES: Dr. Youngblood at the bedside assessed the patient. Notified BROOMCORN SORTER, current Bipap setting, and current ABG result. Dr. Youngblood ordered stat CXR, ABG @1700, and stat transfer to [facility]. Notified to the charge nurse. Will continue plan of care. until transfer to [facility].
[2019-07-27 15:34] LABS: BASOPHILS % (AUTO) 0.5 % (0.0-2.0); HEMATOCRIT 34.3 % (37.0-47.0); HEMOGLOBIN 10.2 G/DL (12.0-16.0); LYMPHOCYTES % (AUTO) 18.8 % (20.0-45.0); MEAN CORPUSCULAR VOLUME 71 FL (80-99); MONOCYTES % (AUTO) 5.2 % (1.0-10.0); NEUTROPHILS % (AUTO) 72.4 % (45.0-75.0); PLATELET COUNT 377 K/UL (150-450); RED BLOOD COUNT 4.86 M/UL (4.20-5.40); RED CELL DISTRIBUTION WIDTH 17.5 % (11.6-14.8); WHITE BLOOD COUNT 10.8 K/UL (4.8-10.8)
[2019-07-27 15:53] LABS: ALANINE AMINOTRANSFERASE 31 U/L (12-78); ALBUMIN 2.6 G/DL (3.4-5.0); ALBUMIN/GLOBULIN RATIO 0.5 (1.0-2.7); ALKALINE PHOSPHATASE 87 U/L (46-116); ANION GAP 0 mmol/L (5-15); ASPARTATE AMINO TRANSFERASE 19 U/L (15-37); BILIRUBIN,TOTAL 0.3 MG/DL (0.2-1.0); BLOOD UREA NITROGEN 15 mg/dL (7-18); CALCIUM 8.6 MG/DL (8.5-10.1); CHLORIDE 99 MMOL/L (98-107); CREATININE 0.3 MG/DL (0.55-1.30); POTASSIUM 3.8 MMOL/L (3.5-5.1); SODIUM 139 MMOL/L (136-145)
--- NOTE | 2019-07-27 15:55 | General Progress Note ---
Assessment/Plan Status: stable Assessment/Plan: S, O: Extubated,delirious today , is partially following command, seems comfortable. lots of gurgling noises from upper respiratory tract, NG tube and Huber in place. on BIPAP mask PHYSICAL EXAMINATION:HEAD AND NECK: awake , Atraumatic, normocephalic. CHEST: Diffuse bronchial breathing sounds. No wheezing.HEART: S1, S2. Regular rate and rhythm. ABDOMEN: Obese, positive for suprapubic catheter.MUSCULOSKELETAL: The atrophy of the lower extremities, paraplegia are noted.NEUROLOGY: The patient is ex-tubated, not verbal, limited eval Medication and LABORATORY AND DIAGNOSTIC DATA: Dated Jul 27 reviewed ASSESSMENT AND PLAN: 1.VDRF, post extubation 2. Sepsis - healthcare associated. 3. Pneumonia, healthcare associated. 3. UTI - healthcare associated. 4. Congenital abnormalities, spina bifida, paraplegic, wheelchair-bound. 5. On New oral anticoagulation 6. GI and DVT prophylaxis. 7. Dysphagia, on NG tube, high risk for aspiration PLAN OF CARE: Current Pulmonary and ID care S/P Bronch, pending cultures Notes from ID Pulmonary reviewed Stable WBC counts, afebrile, D/w the brother ( reportedly DPOA), updated about overall medical cnd on Jul 22. I called IRON Brother, Jul 25 . I can not leave a VM Family requested transfer to [facility]. Patient is on waiting list Ok to transfer to [facility]. note from pulmonary reviewed Subjective Allergies: Coded Allergies: PENICILLIN G (Verified Allergy, Unknown, 12/02/18) Tolerates cabapenem, cephalosporin PENICILLINS (Unverified Allergy, Unknown, 12/02/18) Objective Last 24 Hour Vital Signs Date Time Temp Pulse Resp B/P (MAP) Pulse Ox O2 Delivery O2 Flow Rate FiO2 07/27/19 13:27 94 17 99 Full Face 100 07/27/19 13:27 90 20 100 Bi-Pap 100 94 17 99 07/27/19 12:00 97.3 79 18 112/81 (91) 95 07/27/19 12:00 89 07/27/19 10:05 83 18 96 Full Face 40 07/27/19 09:15 64 16 100 Full Face 40 07/27/19 08:00 97.7 71 18 129/75 (93) 98 07/27/19 08:00 70 07/27/19 07:09 85 18 100 Bi-Pap 40 83 18 96 07/27/19 06:56 83 18 96 Full Face 40 07/27/19 06:55 96 Bi-Pap 07/27/19 04:55 86 18 98 Full Face 40 07/27/19 04:00 4.0 07/27/19 04:00 80 07/27/19 04:00 97.9 81 20 132/79 (96) 94 07/27/19 02:50 81 17 97 Full Face 40 07/27/19 01:33 93 20 99 Bi-Pap 40 89 20 97 07/27/19 00:31 84 16 98 Full Face 40 07/27/19 00:00 4.0 07/27/19 00:00 98.5 83 20 120/73 (89) 98 07/27/19 00:00 86 16 97 Full Face 40 07/27/19 00:00 94 07/26/19 21:00 Nasal Cannula 4.0 07/26/19 20:39 99 20 97 Nasal Cannula 4.0 36 97 20 92 07/26/19 20:00 95 07/26/19 20:00 4.0 07/26/19 20:00 98.0 96 18 138/88 (105) 93 07/26/19 19:00 94 Nasal Cannula 4.0 36 07/26/19 16:00 98.2 102 20 136/69 (91) 93 07/26/19 16:00 4.0 07/26/19 16:00 96 Intake and Output 07/26/19 07/27/19 19:00 07:00 Intake Total 890 ml Output Total 650 ml 700 ml Balance 240 ml -700 ml Intake Free Water 350 ml Tube Feeding 540 ml Output Urine Total 650 ml 700 ml Stool Total 0 ml Laboratory Tests 07/27/19 11:08: Arterial Blood pH 7.433, Arterial Blood Partial Pressure CO2 65.0*H, Arterial Blood Partial Pressure O2 45.3*L, Arterial Blood HCO3 42.5*H, Arterial Blood Oxygen Saturation 81.9*L, Arterial Blood Base Excess 15.6*H, Gerard Test Positive 07/27/19 14:14: White Blood Count 10.8, Red Blood Count 4.86, Hemoglobin 10.2L, Hematocrit 34.3L , Mean Corpuscular Volume 71L, Mean Corpuscular Hemoglobin 20.9L, Mean Corpuscular Hemoglobin Concent 29.6L, Red Cell Distribution Width 17.5H, Platelet Count 377, Mean Platelet Volume 5.1L, Neutrophils (%) (Auto) 72.4, Lymphocytes (%) (Auto) 18.8L, Monocytes (%) (Auto) 5.2, Eosinophils (%) (Auto) 3.0, Basophils (%) (Auto) 0.5, Sodium Level [Pending], Potassium Level [Pending] , Chloride Level [Pending], Carbon Dioxide Level [Pending], Blood Urea Nitrogen [Pending], Creatinine [Pending], Estimat Glomerular Filtration Rate [Pending], Glucose Level [Pending], Calcium Level [Pending], Total Bilirubin [Pending], Aspartate Amino Transf (AST/SGOT) [Pending], Alanine Aminotransferase (ALT/SGPT ) [Pending], Alkaline Phosphatase [Pending], Total Protein [Pending], Albumin [ Pending], Globulin [Pending] Height (Feet): 4 Height (Inches): 10.00 Weight (Pounds): 158 Denise Neri MD Jul 27, 2019 15:55
[2019-07-27 16:01] LABS: CARBON DIOXIDE 40 MMOL/L (21-32)
--- NOTE | 2019-07-27 17:12 | Infectious Diseases Prog Note ---
Assessment/Plan Problems: (1) Pneumonia of both lower lobes Assessment & Plan: with shifting infiltrates and hypoxemia , suspect recurrent aspiration , already on meropenem and zyvox coverage for two weeks . aspiration precaution, monitor CXR as per pulmonary , may need tube feeding and tracheostomy . EOT 07/27/2019 (2) Catheter-associated urinary tract infection Assessment & Plan: with MDR pseudomonas aeruginosa , ESBL producing E coli and Enterococcus Faecalis vancomycin resistant , continue zyvox and meropenem for total of two weeks , continue local catheter care, recommend to change the suprapubic catheter if not done yet. D/W nurse (3) Sepsis Assessment & Plan: ruled out with negative blood culture x 2, already on wide spectrum antibiotics for pneumonia and CAUTI coverage (4) Decubitus skin ulcer Assessment & Plan: of the sacrum, continue off loading and local wound care as per hospital protocol (5) Respiratory failure with hypoxia Assessment & Plan: now worse, started on BIPAP , SUSPECT RECURRENT ASPIRATION , monitor ABG and CXR , pulmonary is following (6) At risk for aspiration pneumonia Assessment & Plan: aspiration precaution, may benefit from tube feeding , since weak oral phase Subjective Constitutional: Reports: no symptoms HEENT: Reports: no symptoms, congestion Respiratory: Reports: productive cough Breasts: Reports: no symptoms Cardiovascular: Reports: no symptoms Gastrointestinal/Abdominal: Reports: no symptoms Genitourinary: Reports: no symptoms Neurologic: Reports: no symptoms Psychiatric: Reports: no symptoms Skin: Reports: no symptoms Endocrine: Reports: no symptoms Hematologic: Reports: no symptoms Musculoskeletal: Reports: no symptoms Allergies: Coded Allergies: PENICILLIN G (Verified Allergy, Unknown, 12/02/18) Tolerates cabapenem, cephalosporin PENICILLINS (Unverified Allergy, Unknown, 12/02/18) Subjective she was lying in bed, awake and responsive , still coughing and congested , with high volume secretions via suctioning , on high flow oxygen . no fever or chills today , no diarrhea Objective Vital Signs Last 24 Hour Vital Signs Date Time Temp Pulse Resp B/P (MAP) Pulse Ox O2 Delivery O2 Flow Rate FiO2 07/27/19 16:00 45 07/27/19 16:00 85 18 96 Full Face 100 07/27/19 16:00 97.9 82 18 119/76 (90) 99 07/27/19 15:57 92 19 97 Bi-Pap 100 07/27/19 13:27 94 17 99 Full Face 100 07/27/19 13:27 90 20 100 Bi-Pap 100 94 17 99 07/27/19 12:00 45 07/27/19 12:00 97.3 79 18 112/81 (91) 95 07/27/19 12:00 89 07/27/19 10:05 83 18 96 Full Face 40 07/27/19 09:15 64 16 100 Full Face 40 07/27/19 09:00 Bi-pap 07/27/19 08:00 45 07/27/19 08:00 97.7 71 18 129/75 (93) 98 07/27/19 08:00 70 07/27/19 07:09 85 18 100 Bi-Pap 40 83 18 96 07/27/19 06:56 83 18 96 Full Face 40 07/27/19 06:55 96 Bi-Pap 07/27/19 04:55 86 18 98 Full Face 40 07/27/19 04:00 4.0 07/27/19 04:00 80 07/27/19 04:00 97.9 81 20 132/79 (96) 94 07/27/19 02:50 81 17 97 Full Face 40 07/27/19 01:33 93 20 99 Bi-Pap 40 89 20 97 07/27/19 00:31 84 16 98 Full Face 40 07/27/19 00:00 4.0 07/27/19 00:00 98.5 83 20 120/73 (89) 98 07/27/19 00:00 86 16 97 Full Face 40 07/27/19 00:00 94 07/26/19 21:00 Nasal Cannula 4.0 07/26/19 20:39 99 20 97 Nasal Cannula 4.0 36 97 20 92 07/26/19 20:00 95 07/26/19 20:00 4.0 07/26/19 20:00 98.0 96 18 138/88 (105) 93 07/26/19 19:00 94 Nasal Cannula 4.0 36 Height (Feet): 4 Height (Inches): 10.00 Weight (Pounds): 158 General Appearance: WD/WN, no acute distress HEENT: normocephalic, atraumatic, anicteric, mucous membranes moist, PERRL Respiratory/Chest: chest wall non-tender, no respiratory distress, no accessory muscle use, decreased breath sounds, crackles/rales Cardiovascular: normal peripheral pulses, normal rate, regular rhythm, no gallop/murmur, no JVD Abdomen: normal bowel sounds, soft, non tender, no organomegaly, non distended , no mass, no scars Extremities: no cyanosis, no clubbing Skin: no rash, no lesions, no ulcers Neurologic/Psychiatric: manager strategic II-XII grossly normal, alert, responsive Laboratory Tests Test 07/27/19 11:08 07/27/19 14:14 Arterial Blood pH 7.433 (7.350-7.450) Arterial Blood Partial Pressure CO2 65.0 mmHg (35.0-45.0) *H Arterial Blood Partial Pressure O2 45.3 mmHg (75.0-100.0) Arterial Blood HCO3 42.5 mmol/L (22.0-26.0) *H Arterial Blood Oxygen Saturation 81.9 % (95-100) *L Arterial Blood Base Excess 15.6 (-2-2) *H Gerard Test Positive White Blood Count 10.8 K/UL (4.8-10.8) Red Blood Count 4.86 M/UL (4.20-5.40) Hemoglobin 10.2 G/DL (12.0-16.0) L Hematocrit 34.3 % (37.0-47.0) L Mean Corpuscular Volume 71 FL (80-99) L Mean Corpuscular Hemoglobin 20.9 PG (27.0-31.0) L Mean Corpuscular Hemoglobin Concent 29.6 G/DL (32.0-36.0) L Red Cell Distribution Width 17.5 % (11.6-14.8) H Platelet Count 377 K/UL (150-450) Mean Platelet Volume 5.1 FL (6.5-10.1) L Neutrophils (%) (Auto) 72.4 % (45.0-75.0) Lymphocytes (%) (Auto) 18.8 % (20.0-45.0) L Monocytes (%) (Auto) 5.2 % (1.0-10.0) Eosinophils (%) (Auto) 3.0 % (0.0-3.0) Basophils (%) (Auto) 0.5 % (0.0-2.0) Sodium Level 139 MMOL/L (136-145) Potassium Level 3.8 MMOL/L (3.5-5.1) Chloride Level 99 MMOL/L (98-107) Carbon Dioxide Level 40 MMOL/L (21-32) H Anion Gap 0 mmol/L (5-15) L Blood Urea Nitrogen 15 mg/dL (7-18) Creatinine 0.3 MG/DL (0.55-1.30) L Estimat Glomerular Filtration Rate > 60 mL/min (>60) Glucose Level 99 MG/DL (74-106) Calcium Level 8.6 MG/DL (8.5-10.1) Total Bilirubin 0.3 MG/DL (0.2-1.0) Aspartate Amino Transf (AST/SGOT) 19 U/L (15-37) Alanine Aminotransferase (ALT/SGPT) 31 U/L (12-78) Alkaline Phosphatase 87 U/L (46-116) Total Protein 7.5 G/DL (6.4-8.2) Albumin 2.6 G/DL (3.4-5.0) L Globulin 4.9 g/dL Albumin/Globulin Ratio 0.5 (1.0-2.7) L Current Medications Medications (Trade) Dose Ordered Sig/Sandeep Route PRN Reason Start Time Stop Time Status Last Admin Dose Admin Acetaminophen (Tylenol) 650 mg Q6H PRN GT Mild Pain/Temp > 100.5 07/20/19 12:44 08/11/19 12:43 Acetylcysteine (Mucomyst) 200 mg Q6HRT HHN 07/20/19 13:00 08/16/19 18:59 07/27/19 13:00 Apixaban (Eliquis) 5 mg BID GT 07/25/19 18:11 08/24/19 18:10 07/27/19 09:34 Chlorhexidine Gluconate (Debora-Hex 2%) 1 applic DAILY@2000 TOPIC 07/20/19 20:00 08/13/19 19:59 07/26/19 20:08 Famotidine (Pepcid) 20 mg BID GT 07/20/19 18:00 08/18/19 17:59 07/27/19 09:34 Linezolid 300 ml @ 300 mls/hr Q12HR IVPB 07/20/19 21:00 07/27/19 23:59 07/27/19 09:35 Meropenem 1 gm/ Sodium Chloride 55 ml @ 110 mls/hr Q8HR IVPB 07/20/19 14:00 07/27/19 23:59 07/27/19 13:03 Sennosides (Senokot) 8.6 mg BID GT 07/20/19 18:00 08/11/19 08:59 07/27/19 09:34 Giig Sanabria M.D. Jul 27, 2019 17:12
--- NOTE | 2019-07-27 17:40 | NUR ---
NURSE NOTES: Paged Dr. Youngblood regarding 1699 ABG and CXR result. Per Dr. Youngblood, stat transfer to [facility] or ICU whichever is faster, change Bipap setting to 20/5, and timed ABG on 1999. Notified to charge nurse and nursing schedule supervisor. Called nursing schedule supervisor regarding stat transfer order. Per nursing schedule supervisor, due to staffing, the patient will be transferred to [facility] on 1899. The charge nurse was notified. Called RT to change bipap setting based on Dr. Youngblood order. Will closely monitor the patient.
--- NOTE | 2019-07-27 18:06 | Diagnostic Imaging Report ---
Indication: Shortness of breath, COPD Technique: One view of the chest Comparison: 07/24/2019 Findings: Again demonstrated is cardiomegaly. There is opacification of much of the right lower hemithorax now evident. There is apparent elevation the right hemidiaphragm. A linear interface along the right perihilar region raises possibility of right lower lobe atelectasis. There is again demonstrated interstitial edema. Spinal fusion alysha, nasogastric tube, right-sided ventriculoperitoneal shunt tubing are again demonstrated. Impression: Increasing right basilar opacity, may indicate right lower lobe atelectasis. Persistent interstitial congestion Mild cardiomegaly
--- NOTE | 2019-07-27 19:20 | NUR ---
HAND-OFF: Report given to EMMA Nicolas. The patient is on Bipap as ordered for breathing support. The patient's bed in the lowest position, call light in reach, and fall and aspiration precaution reinforced. PICC line on JASON double lumen intact and patent. NG tube intact and patent. Suprapubic catheter intact and patent. Bilateral soft wrist restraints on per order, skin, circulation, and sensation intact. Endorsed plan fo care.
--- NOTE | 2019-07-27 19:47 | NUR ---
NURSE NOTES: Received pt from EMMA Nicolas. Pt awake and on bipap. Will transfer pt to [facility] when bed available. Will continue to monitor.
--- NOTE | 2019-07-27 19:58 | Pulmonology Progress Note ---
Assessment/Plan Assessment/Plan Pulmonary Progress Note Assessment/Plan Problems: (1) Pneumonia of both lower lobes (2) Respiratory failure with hypoxia (3) UTI (urinary tract infection) (4) Paraplegia (5) Restrictive lung disease due to kyphoscoliosis (6) Pulmonary edema (7) Spina bifida Assessment/Plan Less SOB Optimize pulmonary hygiene/mobilize as tolerated Titrate O2 HHN's and NAC Abx (OTILIA/Zyvox) per ID NPO, NGTF's, [employer] DRUM CONTINUOUS PROCESS therapy Monitor volumes and renal function DVT Px: Eliquis FC Subjective Allergies: Coded Allergies: PENICILLIN G (Verified Allergy, Unknown, 12/02/18) Tolerates cabapenem, cephalosporin PENICILLINS (Unverified Allergy, Unknown, 12/02/18) Subjective TTtele AFVSS O2 needs stable CXR worse + cough + SOB no FC Objective Vital Signs Noted General Appearance: no acute distress, cachetic HEENT: normocephalic, atraumatic, anicteric, mucous membranes moist Respiratory/Chest: rhonchi Cardiovascular: normal peripheral pulses, normal rate, regular rhythm Abdomen: normal bowel sounds, soft, non tender, no organomegaly, non distended Extremities: no cyanosis, no clubbing, no edema Current Medications Medications (Trade) Dose Ordered Sig/Sandeep Route PRN Reason Start Time Stop Time Status Last Admin Dose Admin Acetaminophen (Tylenol) 650 mg Q6H PRN GT Mild Pain/Temp > 100.5 07/20/19 12:44 08/11/19 12:43 Acetylcysteine (Mucomyst) 200 mg Q6HRT HHN 07/20/19 13:00 08/16/19 18:59 07/24/19 13:00 Albuterol/ Ipratropium (Albuterol/ Ipratropium) 3 ml Q4H PRN HHN Shortness of Breath 07/22/19 13:15 07/27/19 13:14 Albuterol/ Ipratropium (Albuterol/ Ipratropium) 3 ml Q6HRT HHN 07/22/19 13:15 07/27/19 13:14 07/24/19 13:48 Apixaban (Eliquis) 5 mg BID GT 07/20/19 18:00 08/11/19 08:59 07/24/19 09:00 Chlorhexidine Gluconate (Debora-Hex 2%) 1 applic DAILY@2000 TOPIC 07/20/19 20:00 08/13/19 19:59 07/23/19 20:00 Famotidine (Pepcid) 20 mg BID GT 07/20/19 18:00 08/18/19 17:59 07/24/19 09:00 Linezolid 300 ml @ 300 mls/hr Q12HR IVPB 07/20/19 21:00 07/27/19 23:59 07/24/19 09:00 Meropenem 1 gm/ Sodium Chloride 55 ml @ 110 mls/hr Q8HR IVPB 07/20/19 14:00 07/27/19 23:59 07/24/19 14:46 Sennosides (Senokot) 8.6 mg BID GT 07/20/19 18:00 08/11/19 08:59 07/24/19 09:00 Subjective ROS Limited/Unobtainable: No Allergies: Coded Allergies: PENICILLIN G (Verified Allergy, Unknown, 12/02/18) Tolerates cabapenem, cephalosporin PENICILLINS (Unverified Allergy, Unknown, 12/02/18) Objective Last 24 Hour Vital Signs Date Time Temp Pulse Resp B/P (MAP) Pulse Ox O2 Delivery O2 Flow Rate FiO2 07/27/19 17:23 89 18 98 Full Face 100 07/27/19 16:00 78 07/27/19 16:00 45 07/27/19 16:00 85 18 96 Full Face 100 07/27/19 16:00 97.9 82 18 119/76 (90) 99 07/27/19 15:57 92 19 97 Bi-Pap 100 07/27/19 13:27 94 17 99 Full Face 100 07/27/19 13:27 90 20 100 Bi-Pap 100 94 17 99 07/27/19 12:00 45 07/27/19 12:00 97.3 79 18 112/81 (91) 95 07/27/19 12:00 89 07/27/19 10:05 83 18 96 Full Face 40 07/27/19 09:15 64 16 100 Full Face 40 07/27/19 09:00 Bi-pap 07/27/19 08:00 45 07/27/19 08:00 97.7 71 18 129/75 (93) 98 07/27/19 08:00 70 07/27/19 07:09 85 18 100 Bi-Pap 40 83 18 96 07/27/19 06:56 83 18 96 Full Face 40 07/27/19 06:55 96 Bi-Pap 07/27/19 04:55 86 18 98 Full Face 40 07/27/19 04:00 4.0 07/27/19 04:00 80 07/27/19 04:00 97.9 81 20 132/79 (96) 94 07/27/19 02:50 81 17 97 Full Face 40 07/27/19 01:33 93 20 99 Bi-Pap 40 89 20 97 07/27/19 00:31 84 16 98 Full Face 40 07/27/19 00:00 4.0 07/27/19 00:00 98.5 83 20 120/73 (89) 98 07/27/19 00:00 86 16 97 Full Face 40 07/27/19 00:00 94 07/26/19 21:00 Nasal Cannula 4.0 07/26/19 20:39 99 20 97 Nasal Cannula 4.0 36 97 20 92 07/26/19 20:00 95 07/26/19 20:00 4.0 07/26/19 20:00 98.0 96 18 138/88 (105) 93 Intake and Output 07/26/19 07/27/19 18:59 06:59 Intake Total 890 ml Output Total 650 ml 700 ml Balance 240 ml -700 ml Intake Free Water 350 ml Tube Feeding 540 ml Output Urine Total 650 ml 700 ml Stool Total 0 ml Laboratory Tests 07/27/19 11:08: Arterial Blood pH 7.433, Arterial Blood Partial Pressure CO2 65.0*H, Arterial Blood Partial Pressure O2 45.3*L, Arterial Blood HCO3 42.5*H, Arterial Blood Oxygen Saturation 81.9*L, Arterial Blood Base Excess 15.6*H, Gerard Test Positive 07/27/19 14:14: White Blood Count 10.8, Red Blood Count 4.86, Hemoglobin 10.2L, Hematocrit 34.3L , Mean Corpuscular Volume 71L, Mean Corpuscular Hemoglobin 20.9L, Mean Corpuscular Hemoglobin Concent 29.6L, Red Cell Distribution Width 17.5H, Platelet Count 377, Mean Platelet Volume 5.1L, Neutrophils (%) (Auto) 72.4, Lymphocytes (%) (Auto) 18.8L, Monocytes (%) (Auto) 5.2, Eosinophils (%) (Auto) 3.0, Basophils (%) (Auto) 0.5, Sodium Level 139, Potassium Level 3.8, Chloride Level 99, Carbon Dioxide Level 40H, Anion Gap 0L, Blood Urea Nitrogen 15, Creatinine 0.3L, Estimat Glomerular Filtration Rate > 60, Glucose Level 99, Calcium Level 8.6, Total Bilirubin 0.3, Aspartate Amino Transf (AST/SGOT) 19, Alanine Aminotransferase (ALT/SGPT) 31, Alkaline Phosphatase 87, Total Protein 7.5, Albumin 2.6L, Globulin 4.9, Albumin/Globulin Ratio 0.5L 07/27/19 17:00: Arterial Blood pH 7.378, Arterial Blood Partial Pressure CO2 75.3*H, Arterial Blood Partial Pressure O2 86.0, Arterial Blood HCO3 43.3*H, Arterial Blood Oxygen Saturation 95.8, Arterial Blood Base Excess 15.2*H, Gerard Test Positive Current Medications Medications (Trade) Dose Ordered Sig/Sandeep Route PRN Reason Start Time Stop Time Status Last Admin Dose Admin Acetaminophen (Tylenol) 650 mg Q6H PRN GT Mild Pain/Temp > 100.5 07/20/19 12:44 08/11/19 12:43 Acetylcysteine (Mucomyst) 200 mg Q6HRT HHN 07/20/19 13:00 08/16/19 18:59 07/27/19 13:00 Apixaban (Eliquis) 5 mg BID GT 07/25/19 18:11 08/24/19 18:10 07/27/19 09:34 Chlorhexidine Gluconate (Debora-Hex 2%) 1 applic DAILY@2000 TOPIC 07/20/19 20:00 08/13/19 19:59 07/26/19 20:08 Famotidine (Pepcid) 20 mg BID GT 07/20/19 18:00 08/18/19 17:59 07/27/19 09:34 Linezolid 300 ml @ 300 mls/hr Q12HR IVPB 07/20/19 21:00 07/27/19 23:59 07/27/19 09:35 Meropenem 1 gm/ Sodium Chloride 55 ml @ 110 mls/hr Q8HR IVPB 07/20/19 14:00 07/27/19 23:59 07/27/19 13:03 Sennosides (Senokot) 8.6 mg BID GT 07/20/19 18:00 08/11/19 08:59 07/27/19 09:34 Perfecto Youngblood MD Jul 27, 2019 19:58
[2019-07-27] MEDS ORDERED: Albuterol/Ipratropium 3ml neb HHN PRN (20:00)
--- NOTE | 2019-07-27 20:30 | NUR ---
NURSE NOTES: BrotherQuinn is refusing pt transfer and is demanding immediate transfer to [facility] or discharge now so that he can take pt to [facility] himself. We explained to the the brother that pt is unstable and he continues to demand for immediate discharge or transfer. Called and spoke with Dr. Youngblood, he ordered to continue transfer and call security if need be. Will explain to the brother and will continue to monitor.
[2019-07-27] MEDS: Dyna-Hex 2% Top Sol 2oz TOPIC SCH (21:52)
[2019-07-28] MEDS: Albuterol/Ipratropium 3ml neb HHN SCH ×4 (01:28→18:36)
[2019-07-28] MEDS: Acetylcysteine 20% Soln 4ml HHN SCH ×4 (01:28→18:36)
--- NOTE | 2019-07-28 03:38 | NUR ---
NURSE NOTES: Called and left a message with Dr. Neri regarding IV fluids. Awaiting call back.
[2019-07-28 04:00] VITALS: BP 118/73
--- NOTE | 2019-07-28 06:00 | NUR ---
NURSE NOTES: Dr. Neri gave IV fluid orders only when shes NPO. Will input orders and will continue to monitor.
[2019-07-28] MEDS ORDERED: D5NS 1,000 ML IV SCH (06:15)
--- NOTE | 2019-07-28 07:45 | NUR ---
HAND-OFF: Report given to EMMA Carnes. Pt stable.
--- NOTE | 2019-07-28 07:46 | NUR ---
NURSE NOTES: Patient received lying in bed, semi-greer's position, on BiPAP, saturating 98%, no respiratory distress, saturating at 98%. Patient able to open eyes spontaneously, denies pain. Left nare NG tube in place, clamped. Running IV fluids D5 1/2 NS at 100 ml/hr through left upper Arm PICC, double lumen. Bilateral soft wrist restraints in place, pulses palpable and skin is intact. Suprapubic catheter in place, draining to yellow christy urine. Heels offloaded. Sinus Rhythm on the monitor. Will continue to monitor the patient.
[2019-07-28 08:00] VITALS: BP 112/74
[2019-07-28] MEDS ORDERED: Albuterol/Ipratropium 3ml neb HHN PRN (08:00)
[2019-07-28] MEDS: Eliquis 5mg tablet GT SCH ×2 (09:00→18:10)
[2019-07-28] MEDS: Sennosides 8.6mg tab GT SCH ×2 (09:00→18:10)
[2019-07-28] MEDS: D5NS 1,000 ML IV SCH ×2 (09:02→18:10)
--- NOTE | 2019-07-28 09:08 | NUR ---
NURSE NOTES: Maribel called from case management, Stefania will be available at 10:30 AM.
--- NOTE | 2019-07-28 09:51 | General Progress Note ---
Assessment/Plan Status: stable Assessment/Plan: S, O: Extubated,delirious today , is partially following command, seems comfortable. lots of gurgling noises from upper respiratory tract, NG tube and Huber in place. on BIPAP mask PHYSICAL EXAMINATION:HEAD AND NECK: awake , Atraumatic, normocephalic. CHEST: Diffuse bronchial breathing sounds. No wheezing.HEART: S1, S2. Regular rate and rhythm. ABDOMEN: Obese, positive for suprapubic catheter.MUSCULOSKELETAL: The atrophy of the lower extremities, paraplegia are noted.NEUROLOGY: The patient is ex-tubated, not verbal, limited eval Medication and LABORATORY AND DIAGNOSTIC DATA: Dated Jul 27 reviewed ASSESSMENT AND PLAN: 1.VDRF, post extubation 2. Sepsis - healthcare associated. 3. Pneumonia, healthcare associated. 3. UTI - healthcare associated. 4. Congenital abnormalities, spina bifida, paraplegic, wheelchair-bound. 5. On New oral anticoagulation 6. GI and DVT prophylaxis. 7. Dysphagia, on NG tube, high risk for aspiration PLAN OF CARE: Current Pulmonary and ID care S/P Bronch, pending cultures Notes from ID Pulmonary reviewed Stable WBC counts, afebrile, D/w the brother ( reportedly DPOA), updated about overall medical cnd on Jul 22. I called DPOA Brother, Jul 25 . I can not leave a Family requested transfer to [facility]. Patient is on waiting list Ok to transfer to [place]. note from pulmonary reviewed I called a DPOA at [phone], I can not leave a Subjective Allergies: Coded Allergies: PENICILLIN G (Verified Allergy, Unknown, 12/02/18) Tolerates cabapenem, cephalosporin PENICILLINS (Unverified Allergy, Unknown, 12/02/18) Objective Last 24 Hour Vital Signs Date Time Temp Pulse Resp B/P (MAP) Pulse Ox O2 Delivery O2 Flow Rate FiO2 07/28/19 08:41 88 17 98 Facial 85 07/28/19 08:00 97.9 80 18 112/74 (87) 98 07/28/19 06:56 85 17 98 Bi-Pap 85 81 17 96 07/28/19 06:54 96 Bi-Pap 07/28/19 06:54 84 17 91 Facial 85 07/28/19 04:47 87 19 91 Facial 85 07/28/19 04:00 97.3 86 16 118/73 (88) 90 07/28/19 04:00 85 07/28/19 04:00 80 07/28/19 03:09 79 16 97 Full Face 85 07/28/19 01:29 87 20 98 Bi-Pap 85 82 17 97 07/28/19 01:28 84 16 97 Full Face 85 07/28/19 00:00 85 07/28/19 00:00 89 07/27/19 23:10 97.5 82 18 109/66 (80) 98 07/27/19 22:50 89 17 98 Full Face 85 07/27/19 21:21 88 16 99 Full Face 100 07/27/19 21:00 Bi-pap 07/27/19 20:15 91 17 97 Full Face 100 07/27/19 20:15 96 Bi-Pap 07/27/19 20:05 89 22 84 07/27/19 20:00 70 07/27/19 20:00 45 07/27/19 20:00 97.9 83 20 139/86 (103) 94 07/27/19 17:23 89 18 98 Full Face 100 07/27/19 16:00 78 07/27/19 16:00 45 07/27/19 16:00 85 18 96 Full Face 100 07/27/19 16:00 97.9 82 18 119/76 (90) 99 07/27/19 15:57 92 19 97 Bi-Pap 100 07/27/19 13:27 94 17 99 Full Face 100 07/27/19 13:27 90 20 100 Bi-Pap 100 94 17 99 07/27/19 12:00 45 07/27/19 12:00 97.3 79 18 112/81 (91) 95 07/27/19 12:00 89 07/27/19 10:05 83 18 96 Full Face 40 Intake and Output 07/27/19 07/28/19 19:00 07:00 Output Total 325 ml Balance -325 ml Output Urine Total 325 ml Laboratory Tests 07/27/19 11:08: Arterial Blood pH 7.433, Arterial Blood Partial Pressure CO2 65.0*H, Arterial Blood Partial Pressure O2 45.3*L, Arterial Blood HCO3 42.5*H, Arterial Blood Oxygen Saturation 81.9*L, Arterial Blood Base Excess 15.6*H, Gerard Test Positive 07/27/19 14:14: White Blood Count 10.8, Red Blood Count 4.86, Hemoglobin 10.2L, Hematocrit 34.3L , Mean Corpuscular Volume 71L, Mean Corpuscular Hemoglobin 20.9L, Mean Corpuscular Hemoglobin Concent 29.6L, Red Cell Distribution Width 17.5H, Platelet Count 377, Mean Platelet Volume 5.1L, Neutrophils (%) (Auto) 72.4, Lymphocytes (%) (Auto) 18.8L, Monocytes (%) (Auto) 5.2, Eosinophils (%) (Auto) 3.0, Basophils (%) (Auto) 0.5, Sodium Level 139, Potassium Level 3.8, Chloride Level 99, Carbon Dioxide Level 40H, Anion Gap 0L, Blood Urea Nitrogen 15, Creatinine 0.3L, Estimat Glomerular Filtration Rate > 60, Glucose Level 99, Calcium Level 8.6, Total Bilirubin 0.3, Aspartate Amino Transf (AST/SGOT) 19, Alanine Aminotransferase (ALT/SGPT) 31, Alkaline Phosphatase 87, Total Protein 7.5, Albumin 2.6L, Globulin 4.9, Albumin/Globulin Ratio 0.5L 07/27/19 17:00: Arterial Blood pH 7.378, Arterial Blood Partial Pressure CO2 75.3*H, Arterial Blood Partial Pressure O2 86.0, Arterial Blood HCO3 43.3*H, Arterial Blood Oxygen Saturation 95.8, Arterial Blood Base Excess 15.2*H, Gerard Test Positive 07/27/19 22:02: Arterial Blood pH 7.410, Arterial Blood Partial Pressure CO2 66.9*H, Arterial Blood Partial Pressure O2 67.0L, Arterial Blood HCO3 41.6*H, Arterial Blood Oxygen Saturation 92.5L, Arterial Blood Base Excess 14.6*H, Gerard Test Positive 07/28/19 08:50: White Blood Count [Pending], Red Blood Count [Pending], Hemoglobin [Pending], Hematocrit [Pending], Mean Corpuscular Volume [Pending], Mean Corpuscular Hemoglobin [Pending], Mean Corpuscular Hemoglobin Concent [Pending], Red Cell Distribution Width [Pending], Platelet Count [Pending], Mean Platelet Volume [ Pending], Neutrophils (%) (Auto) [Pending], Lymphocytes (%) (Auto) [Pending], Monocytes (%) (Auto) [Pending], Eosinophils (%) (Auto) [Pending], Basophils (%) (Auto) [Pending], Sodium Level [Pending], Potassium Level [Pending], Chloride Level [Pending], Carbon Dioxide Level [Pending], Blood Urea Nitrogen [Pending], Creatinine [Pending], Estimat Glomerular Filtration Rate [Pending], Glucose Level [Pending], Calcium Level [Pending] Height (Feet): 4 Height (Inches): 10.00 Weight (Pounds): 155 Denise Neri MD Jul 28, 2019 09:51
[2019-07-28 09:56] LABS: BASOPHILS % (AUTO) 0.5 % (0.0-2.0); EOSINOPHILS % (AUTO) 2.9 % (0.0-3.0); HEMATOCRIT 29.6 % (37.0-47.0); HEMOGLOBIN 8.7 G/DL (12.0-16.0); LYMPHOCYTES % (AUTO) 15.3 % (20.0-45.0); MEAN CORPUSCULAR VOLUME 72 FL (80-99); MONOCYTES % (AUTO) 5.4 % (1.0-10.0); NEUTROPHILS % (AUTO) 75.9 % (45.0-75.0); PLATELET COUNT 317 K/UL (150-450); RED BLOOD COUNT 4.11 M/UL (4.20-5.40); RED CELL DISTRIBUTION WIDTH 17.9 % (11.6-14.8); WHITE BLOOD COUNT 10.6 K/UL (4.8-10.8)
--- NOTE | 2019-07-28 09:57 | NUR ---
NURSE NOTES: Dr. Smallwood aware of family wanting to transfer to [facility], per MD there is a process for the transfer and we will have to wait on it, there is no need for him at this time.
--- NOTE | 2019-07-28 10:00 | NUR ---
NURSE NOTES: Sister of patient called wanted to speak to Dr. Neri, Dr. Neri responded, per MD, he will talk to DPOA. Will inform the sister.
--- NOTE | 2019-07-28 11:30 | NUR ---
NURSE NOTES: Karolyn, sister of patient made third call, directed to Thea - prefabricated houses trimmer.
--- NOTE | 2019-07-28 11:47 | NUR ---
RD ASSESSMENT & RECOMMENDATIONS SEE CARE ACTIVITY FOR COMPLETE ASSESSMENT DAILY ESTIMATED NEEDS: Needs based on wound, critical care/ 47.6kg abw 25-30 kcals/kg 5909-3783 total kcals 1.25-2 g protein/kg 60-95 g total protein 25-30 mL/kg 6832-6391 total fluid mLs NUTRITION DIAGNOSIS: * Increased kcal/pro needs r/t wound healing as evidenced by h/o spina bifida, adm w/ full thickness wound @ sacrum and resolving pressure injury @ R-ischium. * Swallowing difficulty R/T respiratory status as evidenced by orally intubated, on NGT feeding. CURRENT TF:Jevity 1.2 @ 45ml/hr x 24 hrs ENTERAL NUTRITION RECOMMENDATIONS: Glucerna 1.2 @ 45ml/hr x24 hrs to provide 1080ml, 1296kcal, 65g prot, 869ml free water - Rec TF change to Glucerna 1.2 for GLYCEMIC CONTROL. - Start @25ml/hr for 6 hrs, advance as tolerated 10ml/hr q4-6 hrs to goal. - HOB over 30 degrees/ water flush of 140ml q 6hrs - TF at goal meets 100% est kcal and pro needs: ADDITIONAL RECOMMENDATIONS: 1) Wound care: add GREGG in 4oz H2O BID via NGT Add VIT C 500mg daily 2) Maintain calibrated bed scale wts 3) NISS for BG control on TF 4) F/up w/ PARTS SALES COUNTERPERSON eval for oral diet -> REC CCHO LOW PARTS SALES COUNTERPERSON recs for NGT feeds at this time 5) 07/28, on Bipap, monitor ability to feed.
[2019-07-28 11:55] LABS: ANION GAP 1 mmol/L (5-15); BLOOD UREA NITROGEN 15 mg/dL (7-18); CALCIUM 8.2 MG/DL (8.5-10.1); CARBON DIOXIDE 39 MMOL/L (21-32); CHLORIDE 101 MMOL/L (98-107); CREATININE 0.3 MG/DL (0.55-1.30); POTASSIUM 3.5 MMOL/L (3.5-5.1); SODIUM 141 MMOL/L (136-145)
[2019-07-28 12:00] VITALS: BP 114/72
--- NOTE | 2019-07-28 12:02 | NUR ---
NURSE NOTES: Called [facility], spoke to Dejan, will call us back, left unit phone number.
--- NOTE | 2019-07-28 12:26 | NUR ---
NURSE NOTES: Spoke to Dejan from [facility], per Dejan, accepting MD in [facility] needs to call them to accept patient. Left a message and number to Dr. Funes.
--- NOTE | 2019-07-28 12:41 | NUR ---
NURSING CISCO CONSULTANT NOTE: Received call from primary nurse, Trice, regarding phone calls from family regarding transfer to [facility]. Family members asked to speak to a aquacultural worker supervisor. I just spoke to brother and DPOA Quinn ([phone]). He said that family was under the impression that patient would be transferred over the weekend and now it's Sunday, and she is still at [facility]. Reassured Quinn that [facility] has the transfer request and that we are providing care for his sister while she is at [facility] and that is our priority. I asked Quinn to please have family members stop calling nursing staff regarding the transfer and that we are communicating with him as the DPOA. Primary RN spoke to Case Management and [facility] regarding this request too.
[2019-07-28] MEDS ORDERED: Acetaminophen 650mg/20.3ml GT PRN (12:45)
--- NOTE | 2019-07-28 13:00 | NUR ---
NURSE NOTES: Patient repositioned. No complains of pain noted. Tried to release restraints, patient still kept trying to removed BiPAP. Suprapubic catheter in place and draining. Will continue to monitor.
--- NOTE | 2019-07-28 14:19 | NUR ---
ST NOTES: SWALLOW STATUS: SPOKE WITH RN LAST SUNDAY ABOUT HAVING THE FAMILY CALL ME ABOUT WHY PATIENT IS UNSAFE FOR PO INTAKE UNTIL SHE IS READY FOR A MODIFIED BARIUM SWALLOW STUDY. THE FAMILY NEVER CALLED ME THAT DAY. PER RECENT 07/27/19 CXR: Impression: Increasing right basilar opacity, may indicate right lower lobe atelectasis. Persistent interstitial congestion Mild cardiomegaly PER RT: PATIENT HAS RHONCHI PATIENT STILL PLANNING ON TRANSFERRING TO [facility] (WAS SUPPOSED TO GO OVER THE WEEKEND). RT NOT AVAILABLE DUE TO CODE ON ANOTHER PATIENT (NEED RT TO CHANGE PT TO NC IF TOLERATED). PATIENT NOT ALERT NOW AND STILL ON BIPAP WILL HOLD ON PO TRIALS OR MOD BARIUM SWALLOW STUDY UNTIL PATIENT TRANSFERS TO [facility]. PATIENT HAD AN EPISODE OF DESATURATION YESTERDAY ON [place] (TO 81%). PER RD, TUBE FEEDINGS SHOULD BE CHANGED (SEE RD NOTE). PLAN: CONTINUE WITH NONORAL FEEDINGS AND ORAL CARE F/UP WITH AIR DEODORIZER SERVICER AT [facility] FOR MOD BARIUM SWALLOW STUDY TO FURTHER ASSESS SWALLOW, DETERMINE SILENT ASPIRATION RISK AND ETIOLOGY, AND ATTEMPT TRIAL TX TECHNIQUES. D/W EMMA DIAZ Addendum: 07/28/19 at 1423 by JOSÉ GIMENEZ ABOVE NOTE IS THE WEEKLY SUMMARY Addendum: 07/28/19 at 1425 by JOSÉ JAMES AIR DEODORIZER SERVICER PER ST ON 07/25/18 PATIENT WAS SOB (RESP RATE 35-36 BPM) AND UNABLE TO TOLERATE FURTHER PO TRIALS SAFELY (SEE NOTE).
--- NOTE | 2019-07-28 15:03 | Infectious Diseases Prog Note ---
Assessment/Plan Problems: (1) Pneumonia of both lower lobes Assessment & Plan: with new right lower lobe infiltrates and hypoxemia , suspect recurrent aspiration , will restart meropenem and zyvox coverage for another two weeks . aspiration precaution, monitor CXR as per pulmonary , may need tube feeding and tracheostomy . will send sputum culture (2) Catheter-associated urinary tract infection Assessment & Plan: with MDR pseudomonas aeruginosa , ESBL producing E coli and Enterococcus Faecalis vancomycin resistant , restart zyvox and meropenem for total of two weeks , continue local catheter care, recommend to change the suprapubic catheter if not done yet. D/W nurse (3) Sepsis Assessment & Plan: ruled out with negative blood culture x 2, already on wide spectrum antibiotics for pneumonia and CAUTI coverage (4) Decubitus skin ulcer Assessment & Plan: of the sacrum, continue off loading and local wound care as per hospital protocol (5) Respiratory failure with hypoxia Assessment & Plan: now worse, started on BIPAP , SUSPECT RECURRENT ASPIRATION , monitor ABG and CXR , pulmonary is following (6) At risk for aspiration pneumonia Assessment & Plan: aspiration precaution, may benefit from tube feeding , since weak oral phase Subjective ROS Limited/Unobtainable: Yes Allergies: Coded Allergies: PENICILLIN G (Verified Allergy, Unknown, 12/02/18) Tolerates cabapenem, cephalosporin PENICILLINS (Unverified Allergy, Unknown, 12/02/18) Subjective she was transferred to step down unit , and started on BIPAP due to respiratory distress and possible aspiration , awake and responsive , still congested , no fever or chills today , no diarrhea Objective Vital Signs Last 24 Hour Vital Signs Date Time Temp Pulse Resp B/P (MAP) Pulse Ox O2 Delivery O2 Flow Rate FiO2 07/28/19 13:20 83 17 99 Bi-Pap 85 78 17 97 07/28/19 13:19 77 16 99 Facial 80 07/28/19 12:14 80 20 97 Facial 85 07/28/19 09:00 Bi-pap 07/28/19 08:41 88 17 98 Facial 85 07/28/19 08:00 85 07/28/19 08:00 97.9 80 18 112/74 (87) 98 07/28/19 08:00 76 07/28/19 06:56 85 17 98 Bi-Pap 85 81 17 96 07/28/19 06:54 96 Bi-Pap 07/28/19 06:54 84 17 91 Facial 85 07/28/19 04:47 87 19 91 Facial 85 07/28/19 04:00 97.3 86 16 118/73 (88) 90 07/28/19 04:00 85 07/28/19 04:00 80 07/28/19 03:09 79 16 97 Full Face 85 07/28/19 01:29 87 20 98 Bi-Pap 85 82 17 97 07/28/19 01:28 84 16 97 Full Face 85 07/28/19 00:00 85 07/28/19 00:00 89 07/27/19 23:10 97.5 82 18 109/66 (80) 98 07/27/19 22:50 89 17 98 Full Face 85 07/27/19 21:21 88 16 99 Full Face 100 07/27/19 21:00 Bi-pap 07/27/19 20:15 91 17 97 Full Face 100 07/27/19 20:15 96 Bi-Pap 07/27/19 20:05 89 22 84 07/27/19 20:00 70 07/27/19 20:00 45 07/27/19 20:00 97.9 83 20 139/86 (103) 94 07/27/19 17:23 89 18 98 Full Face 100 07/27/19 16:00 78 07/27/19 16:00 45 07/27/19 16:00 85 18 96 Full Face 100 07/27/19 16:00 97.9 82 18 119/76 (90) 99 07/27/19 15:57 92 19 97 Bi-Pap 100 Height (Feet): 4 Height (Inches): 10.00 Weight (Pounds): 155 General Appearance: WD/WN, no acute distress HEENT: normocephalic, atraumatic, anicteric, mucous membranes moist, PERRL Respiratory/Chest: chest wall non-tender, no respiratory distress, no accessory muscle use, decreased breath sounds, crackles/rales Cardiovascular: normal peripheral pulses, normal rate, regular rhythm, no gallop/murmur, no JVD Abdomen: normal bowel sounds, soft, non tender, no organomegaly, non distended , no mass, no scars, distended, guarding Extremities: no cyanosis, no clubbing Skin: no rash, no lesions, ulcers Neurologic/Psychiatric: alert, responsive Lymphatic: no neck adenopathy, no groin adenopathy Musculoskeletal: normal muscle bulk, no effusion Laboratory Tests Test 07/27/19 17:00 07/27/19 22:02 07/28/19 08:50 07/28/19 11:30 Arterial Blood pH 7.378 (7.350-7.450) 7.410 (7.350-7.450) Arterial Blood Partial Pressure CO2 75.3 mmHg (35.0-45.0) *H 66.9 mmHg (35.0-45.0) *H Arterial Blood Partial Pressure O2 86.0 mmHg (75.0-100.0) 67.0 mmHg (75.0-100.0) L Arterial Blood HCO3 43.3 mmol/L (22.0-26.0) *H 41.6 mmol/L (22.0-26.0) *H Arterial Blood Oxygen Saturation 95.8 % (95-100) 92.5 % (95-100) L Arterial Blood Base Excess 15.2 (-2-2) *H 14.6 (-2-2) *H Gerard Test Positive Positive White Blood Count 10.6 K/UL (4.8-10.8) Red Blood Count 4.11 M/UL (4.20-5.40) L Hemoglobin 8.7 G/DL (12.0-16.0) L Hematocrit 29.6 % (37.0-47.0) L Mean Corpuscular Volume 72 FL (80-99) L Mean Corpuscular Hemoglobin 21.1 PG (27.0-31.0) L Mean Corpuscular Hemoglobin Concent 29.3 G/DL (32.0-36.0) L Red Cell Distribution Width 17.9 % (11.6-14.8) H Platelet Count 317 K/UL (150-450) Mean Platelet Volume 5.4 FL (6.5-10.1) L Neutrophils (%) (Auto) 75.9 % (45.0-75.0) H Lymphocytes (%) (Auto) 15.3 % (20.0-45.0) L Monocytes (%) (Auto) 5.4 % (1.0-10.0) Eosinophils (%) (Auto) 2.9 % (0.0-3.0) Basophils (%) (Auto) 0.5 % (0.0-2.0) Sodium Level 141 MMOL/L (136-145) Potassium Level 3.5 MMOL/L (3.5-5.1) Chloride Level 101 MMOL/L (98-107) Carbon Dioxide Level 39 MMOL/L (21-32) H Anion Gap 1 mmol/L (5-15) L Blood Urea Nitrogen 15 mg/dL (7-18) Creatinine 0.3 MG/DL (0.55-1.30) L Estimat Glomerular Filtration Rate > 60 mL/min (>60) Glucose Level 115 MG/DL (74-106) H Calcium Level 8.2 MG/DL (8.5-10.1) L Current Medications Medications (Trade) Dose Ordered Sig/Sandeep Route PRN Reason Start Time Stop Time Status Last Admin Dose Admin Acetaminophen (Tylenol) 650 mg Q6H PRN GT Mild Pain/Temp > 100.5 07/28/19 12:45 08/11/19 12:43 Acetylcysteine (Mucomyst) 200 mg Q6HRT N 07/28/19 13:00 08/16/19 18:59 07/28/19 13:21 Albuterol/ Ipratropium (Albuterol/ Ipratropium) 3 ml Q4H PRN HHN Shortness of Breath 07/28/19 08:00 08/01/19 19:59 Albuterol/ Ipratropium (Albuterol/ Ipratropium) 3 ml Q6HRT N 07/28/19 13:00 08/02/19 00:59 07/28/19 13:21 Apixaban (Eliquis) 5 mg BID GT 07/28/19 09:00 08/24/19 18:10 07/28/19 09:00 Chlorhexidine Gluconate (Debora-Hex 2%) 1 applic DAILY@2000 TOPIC 07/28/19 20:00 08/13/19 19:59 Dextrose/Sodium Chloride 1,000 ml @ 100 mls/hr Q10H IV 07/28/19 08:00 08/27/19 06:14 07/28/19 09:02 Famotidine (Pepcid) 20 mg BID GT 07/28/19 09:00 08/18/19 17:59 07/28/19 09:00 Sennosides (Senokot) 8.6 mg BID GT 07/28/19 09:00 08/11/19 08:59 07/28/19 09:00 Gigi Sanabria M.D. Jul 28, 2019 15:03
[2019-07-28 16:00] VITALS: BP 111/60
[2019-07-28] MEDS: Meropenem 1 GM in NS 55 ML IVPB SCH (19:33)
--- NOTE | 2019-07-28 19:36 | NUR ---
HAND-OFF: Report given to EMMA Elizabeth. Addendum: 07/28/19 at 1937 by Trice Santoyo RN Report given to EMMA Daniels.
--- NOTE | 2019-07-28 19:45 | NUR ---
NURSE NOTES: Received report from Trice Santoyo RN. Pt is on continuous BIPAP 20/5, FiO2 85%, satting at 96%, BP 122/89, T 98.0. No pain or distress noted at this time, pt denies pain, FLACC 0. Pt is NPO r/t BIPAP. Left upper PICC running D5 0.45NS at 100ml/hr. PICC site is intact, patent, asymptomatic and clean and dry. Will continue close monitoring and plan of care.
[2019-07-28 20:00] VITALS: BP 122/89
[2019-07-28] MEDS: Dyna-Hex 2% Top Sol 2oz TOPIC SCH (20:00)
--- NOTE | 2019-07-28 20:16 | Pulmonology Progress Note ---
Assessment/Plan Assessment/Plan 1) Pneumonia of both lower lobes (2) Respiratory failure with hypoxia (3) UTI (urinary tract infection) (4) Paraplegia (5) Restrictive lung disease due to kyphoscoliosis (6) Pulmonary edema (7) Spina bifida Assessment/Plan Remains on BiPAP, check ABG and adjust Optimize pulmonary hygiene/mobilize as tolerated Titrate O2 HHN's and NAC Abx (OTILIA/Zyvox) per ID NPO, NGTF's, CLERICAL SUPERVISOR therapy Monitor volumes and renal function DVT Px: Eliquis FC Subjective ROS Limited/Unobtainable: Yes Interval Events: Remains on BiPAP, alert, minimal secretions. Allergies: Coded Allergies: PENICILLIN G (Verified Allergy, Unknown, 12/02/18) Tolerates cabapenem, cephalosporin PENICILLINS (Unverified Allergy, Unknown, 12/02/18) Objective Last 24 Hour Vital Signs Date Time Temp Pulse Resp B/P (MAP) Pulse Ox O2 Delivery O2 Flow Rate FiO2 07/28/19 18:36 82 16 98 Facial 65 07/28/19 18:36 98 Bi-Pap 07/28/19 18:36 80 14 99 Bi-Pap 65 79 16 98 07/28/19 17:23 78 16 98 Facial 70 07/28/19 16:00 84 07/28/19 16:00 85 07/28/19 16:00 98.1 83 18 111/60 (77) 100 07/28/19 15:19 83 20 98 Facial 70 07/28/19 13:20 83 17 99 Bi-Pap 85 78 17 97 07/28/19 13:19 77 16 99 Facial 80 07/28/19 12:14 80 20 97 Facial 85 07/28/19 12:00 85 07/28/19 12:00 97.2 78 19 114/72 (86) 100 07/28/19 12:00 83 07/28/19 09:00 Bi-pap 07/28/19 08:41 88 17 98 Facial 85 07/28/19 08:00 85 07/28/19 08:00 97.9 80 18 112/74 (87) 98 07/28/19 08:00 76 07/28/19 06:56 85 17 98 Bi-Pap 85 81 17 96 07/28/19 06:54 96 Bi-Pap 07/28/19 06:54 84 17 91 Facial 85 07/28/19 04:47 87 19 91 Facial 85 07/28/19 04:00 97.3 86 16 118/73 (88) 90 07/28/19 04:00 85 07/28/19 04:00 80 07/28/19 03:09 79 16 97 Full Face 85 07/28/19 01:29 87 20 98 Bi-Pap 85 82 17 97 07/28/19 01:28 84 16 97 Full Face 85 07/28/19 00:00 85 07/28/19 00:00 89 07/27/19 23:10 97.5 82 18 109/66 (80) 98 07/27/19 22:50 89 17 98 Full Face 85 07/27/19 21:21 88 16 99 Full Face 100 07/27/19 21:00 Bi-pap 07/27/19 20:15 91 17 97 Full Face 100 07/27/19 20:15 96 Bi-Pap Intake and Output 07/27/19 07/28/19 19:00 07:00 Intake Total 145 ml Output Total 325 ml Balance -180 ml IV Total 100 ml Tube Feeding 45 ml Output Urine Total 325 ml General Appearance: no acute distress HEENT: mucous membranes moist Respiratory/Chest: other - coarse breath sounds Cardiovascular: normal rate, regular rhythm Abdomen: soft, non tender Extremities: no edema Laboratory Tests 07/27/19 22:02: Arterial Blood pH 7.410, Arterial Blood Partial Pressure CO2 66.9*H, Arterial Blood Partial Pressure O2 67.0L, Arterial Blood HCO3 41.6*H, Arterial Blood Oxygen Saturation 92.5L, Arterial Blood Base Excess 14.6*H, Gerard Test Positive 07/28/19 08:50: White Blood Count 10.6, Red Blood Count 4.11L, Hemoglobin 8.7L, Hematocrit 29.6L , Mean Corpuscular Volume 72L, Mean Corpuscular Hemoglobin 21.1L, Mean Corpuscular Hemoglobin Concent 29.3L, Red Cell Distribution Width 17.9H, Platelet Count 317, Mean Platelet Volume 5.4L, Neutrophils (%) (Auto) 75.9H, Lymphocytes (%) (Auto) 15.3L, Monocytes (%) (Auto) 5.4, Eosinophils (%) (Auto) 2.9, Basophils (%) (Auto) 0.5 07/28/19 11:30: Sodium Level 141, Potassium Level 3.5, Chloride Level 101, Carbon Dioxide Level 39H, Anion Gap 1L, Blood Urea Nitrogen 15, Creatinine 0.3L, Estimat Glomerular Filtration Rate > 60, Glucose Level 115H, Calcium Level 8.2L Current Medications Medications (Trade) Dose Ordered Sig/Sandeep Route PRN Reason Start Time Stop Time Status Last Admin Dose Admin Acetaminophen (Tylenol) 650 mg Q6H PRN GT Mild Pain/Temp > 100.5 07/28/19 12:45 08/11/19 12:43 Acetylcysteine (Mucomyst) 200 mg Q6HRT HHN 07/28/19 13:00 08/16/19 18:59 07/28/19 18:36 Albuterol/ Ipratropium (Albuterol/ Ipratropium) 3 ml Q4H PRN HHN Shortness of Breath 07/28/19 08:00 08/01/19 19:59 Albuterol/ Ipratropium (Albuterol/ Ipratropium) 3 ml Q6HRT HHN 07/28/19 13:00 08/02/19 00:59 07/28/19 18:36 Apixaban (Eliquis) 5 mg BID GT 07/28/19 09:00 08/24/19 18:10 07/28/19 18:10 Chlorhexidine Gluconate (Debora-Hex 2%) 1 applic DAILY@2000 TOPIC 07/28/19 20:00 08/13/19 19:59 Dextrose/Sodium Chloride 1,000 ml @ 100 mls/hr Q10H IV 07/28/19 08:00 08/27/19 06:14 07/28/19 18:10 Famotidine (Pepcid) 20 mg BID GT 07/28/19 09:00 08/18/19 17:59 07/28/19 18:10 Linezolid 300 ml @ 300 mls/hr Q12HR@0500,1700 IVPB 07/28/19 17:00 08/04/19 16:59 07/28/19 18:10 Meropenem 1 gm/ Sodium Chloride 55 ml @ 110 mls/hr Q8H IVPB 07/28/19 18:00 08/02/19 17:59 1/6/20 19:33 Sennosides (Senokot) 8.6 mg BID GT 07/28/19 09:00 08/11/19 08:59 07/28/19 18:10 Walker Bonilla MD Jul 28, 2019 20:16
[2019-07-29] VITALS: BP 111/63
[2019-07-29] MEDS: Acetylcysteine 20% Soln 4ml HHN SCH ×4 (00:41→19:04)
[2019-07-29] MEDS: Albuterol/Ipratropium 3ml neb HHN SCH ×4 (00:41→19:04)
[2019-07-29] MEDS: Meropenem 1 GM in NS 55 ML IVPB SCH ×3 (01:55→20:17)
[2019-07-29] MEDS: D5NS 1,000 ML IV SCH ×2 (03:29→14:36)
[2019-07-29 04:00] VITALS: BP 122/59
--- NOTE | 2019-07-29 07:30 | NUR ---
NURSE NOTES: Recieved pt from EMMA Daniels. Pt is resting in bed, aox1-2, and nonverbal. Pt in no acute distress at this moment. Pt is on bipap as ordered. No arrythmias reported from previous shift. bed is locked and in lowest position, call light is within reach. Will continue to monitor.
--- NOTE | 2019-07-29 07:48 | NUR ---
HAND-OFF: Report given to Shantel Cruz RN. Pt in stable condition.
[2019-07-29 08:00] VITALS: BP 119/71
[2019-07-29] MEDS: Eliquis 5mg tablet GT SCH ×2 (10:15→18:42)
[2019-07-29] MEDS: Sennosides 8.6mg tab GT SCH ×2 (10:15→18:41)
--- NOTE | 2019-07-29 10:30 | NUR ---
NURSE NOTES: Tried to take off bilateral soft wrist restraint for less restrictive measures. Patient tries to pull off Bipap. RT called and placed back on bipap. Patient placed back in bilateral wrist restraints as ordered.
--- NOTE | 2019-07-29 10:45 | NUR ---
NURSE NOTES: Called Dr. Bonilla office and didnt get an answer regarding ordered ABG.
--- NOTE | 2019-07-29 10:49 | Pulmonology Progress Note ---
Assessment/Plan Assessment/Plan 1) Pneumonia of both lower lobes (2) Respiratory failure with hypoxia (3) UTI (urinary tract infection) (4) Paraplegia (5) Restrictive lung disease due to kyphoscoliosis (6) Pulmonary edema (7) Spina bifida Assessment/Plan Remains on BiPAP, check ABG and adjust Optimize pulmonary hygiene/mobilize as tolerated Titrate O2 HHN's and NAC Abx (OTILIA/Zyvox) per ID NPO, NGTF's, CLAY CARMAN therapy Monitor volumes and renal function DVT Px: Eliquis FC Subjective ROS Limited/Unobtainable: Yes Interval Events: remains on BiPAP 09/12, ABG not done Allergies: Coded Allergies: PENICILLIN G (Verified Allergy, Unknown, 12/02/18) Tolerates cabapenem, cephalosporin PENICILLINS (Unverified Allergy, Unknown, 12/02/18) Objective Last 24 Hour Vital Signs Date Time Temp Pulse Resp B/P (MAP) Pulse Ox O2 Delivery O2 Flow Rate FiO2 07/29/19 08:51 58 29 92 Facial 100 07/29/19 08:00 96.3 99 26 119/71 (87) 99 07/29/19 07:09 88 31 92 Facial 100 80 26 98 07/29/19 07:05 92 Bi-Pap 07/29/19 04:48 82 21 92 Facial 100 79 23 95 07/29/19 04:00 85 07/29/19 04:00 78 07/29/19 04:00 97.4 75 21 122/59 (80) 99 07/29/19 02:43 76 17 95 Facial 85 07/29/19 00:42 72 16 99 Facial 90 07/29/19 00:42 73 16 99 Bi-Pap 90 72 16 99 07/29/19 00:00 97.9 68 18 111/63 (79) 96 07/29/19 00:00 85 07/28/19 23:03 83 18 97 Facial 100 07/28/19 21:00 Bi-pap 07/28/19 20:56 82 19 96 Facial 65 07/28/19 20:00 98.0 84 18 122/89 (100) 96 07/28/19 20:00 85 07/28/19 20:00 82 07/28/19 18:36 82 16 98 Facial 65 07/28/19 18:36 98 Bi-Pap 07/28/19 18:36 80 14 99 Bi-Pap 65 79 16 98 07/28/19 17:23 78 16 98 Facial 70 07/28/19 16:00 84 07/28/19 16:00 85 07/28/19 16:00 98.1 83 18 111/60 (77) 100 07/28/19 15:19 83 20 98 Facial 70 07/28/19 13:20 83 17 99 Bi-Pap 85 78 17 97 07/28/19 13:19 77 16 99 Facial 80 07/28/19 12:14 80 20 97 Facial 85 07/28/19 12:00 85 07/28/19 12:00 97.2 78 19 114/72 (86) 100 07/28/19 12:00 83 Intake and Output 07/28/19 07/29/19 19:00 07:00 Intake Total 1575 ml 1010 ml Output Total 300 ml 500 ml Balance 1275 ml 510 ml Intake Free Water 180 ml IV Total 900 ml 1010 ml Tube Feeding 495 ml Output Urine Total 300 ml 500 ml General Appearance: no acute distress - on bipap HEENT: mucous membranes moist Respiratory/Chest: crackles/rales Cardiovascular: regular rhythm, no JVD Abdomen: soft, non tender, non distended Extremities: no edema Microbiology Date/Time Source Procedure Growth Status 07/28/19 15:18 Blood Blood Culture - Preliminary Resulted Laboratory Tests 07/28/19 11:30: Sodium Level 141, Potassium Level 3.5, Chloride Level 101, Carbon Dioxide Level 39H, Anion Gap 1L, Blood Urea Nitrogen 15, Creatinine 0.3L, Estimat Glomerular Filtration Rate > 60, Glucose Level 115H, Calcium Level 8.2L Current Medications Medications (Trade) Dose Ordered Sig/Sandeep Route PRN Reason Start Time Stop Time Status Last Admin Dose Admin Acetaminophen (Tylenol) 650 mg Q6H PRN GT Mild Pain/Temp > 100.5 07/28/19 12:45 08/11/19 12:43 Acetylcysteine (Mucomyst) 200 mg Q6HRT HHN 07/28/19 13:00 08/16/19 18:59 07/29/19 07:14 Albuterol/ Ipratropium (Albuterol/ Ipratropium) 3 ml Q4H PRN HHN Shortness of Breath 07/28/19 08:00 08/01/19 19:59 07/29/19 04:34 Albuterol/ Ipratropium (Albuterol/ Ipratropium) 3 ml Q6HRT HHN 07/28/19 13:00 08/02/19 00:59 07/29/19 07:14 Apixaban (Eliquis) 5 mg BID GT 07/28/19 09:00 08/24/19 18:10 07/29/19 10:15 Chlorhexidine Gluconate (Debora-Hex 2%) 1 applic DAILY@2000 TOPIC 07/28/19 20:00 08/13/19 19:59 07/28/19 20:00 Dextrose/Sodium Chloride 1,000 ml @ 100 mls/hr Q10H IV 07/28/19 08:00 08/27/19 06:14 07/29/19 03:29 Famotidine (Pepcid) 20 mg BID GT 07/28/19 09:00 08/18/19 17:59 07/29/19 10:15 Linezolid 300 ml @ 300 mls/hr Q12HR@0500,1700 IVPB 07/28/19 17:00 08/04/19 16:59 07/29/19 04:12 Meropenem 1 gm/ Sodium Chloride 55 ml @ 110 mls/hr Q8H IVPB 07/28/19 18:00 08/02/19 17:59 07/29/19 01:55 Sennosides (Senokot) 8.6 mg BID GT 07/28/19 09:00 08/11/19 08:59 07/29/19 10:15 Walker Bonilla MD Jul 29, 2019 10:49
--- NOTE | 2019-07-29 10:52 | NUR ---
CASE MANAGEMENT:REVIEW 07/29/2019 SI: SEPSIS. PNA. UTI T 97.4 HR 75 RR 21 B/P 122/59 SATS 99% ON BIPAP FIO2 85 LABS: NONE TODAY IS: IV LINEZOLID Q12H IV MEROPENEM Q8HRS DUONEB HHN Q6HRS RTC MUCOMYST HHN Q6HRS RTC ELIQUIS GT BID PEPCID GT BID : SDU STATUS
--- NOTE | 2019-07-29 11:08 | NUR ---
DISCHARGE PLANNING: NOTE CALL PLACED TO [facility] TRANSF[facility]. THERE NO BEDS AVAILABLE AT THIS TIME.
[2019-07-29 12:00] VITALS: BP 133/90
--- NOTE | 2019-07-29 14:08 | NUR ---
SWALLOW/SPEECH THERAPY NOTE: SWALLOW STATUS: PER RN, PATIENT TOOK OFF HER BIPAP TODAY AND DESATURATED TO 60. THE PATIENT IS STILL NOT CONSISTENTLY STABLE FOR MODIFIED BARIUM SWALLOW STUDY NOR PO INTAKE AT THIS TIME. THE PATIENT WOULD BENEFIT FROM A LONG-TERM (PEG) NONORAL FEEDINGS AT THIS TIME. EVEN IF PT WERE TO TAKE SOME PO WHEN STABLE, SHE WOULD BE UNLIKELY ABLE TO MEET NUTRITION/HYDRATION NEEDS DUE FTT (SHE TENDS TO REFUSE PO AND HAS VERY SPECIFIC FOOD/LIQUID PREFERENCES) AND BREATHING NEEDS (IF OFF BIPAP SHE DESATURATES). IN THE FUTURE AND AN OUTPATIENT, THE PATIENT COULD BE SEEN FOR A MODIFIED BARIUM SWALLOW STUDY TO FURTHER ASSESS SWALLOW, DETERMINE SILENT ASPIRATION RISK, AND ATTEMPT TRIAL TREATMENT TECHNIQUES FOR SOME ORAL GRATIFICATION. PLAN: CONTINUE WITH NONORAL FEEDINGS AND ORAL CARE. CONSIDER PIPELINE TECHNICIAN (PEG) NONORAL FEEDINGS D/W DR MENDEZ AND RNSHILOH. ASKED STAFF TO HAVE FAMILY CALL ME IF THEY HAVE QUESTIONS. FAMILY HAS NOT TRIED TO REACH ME IN THE PAST.
--- NOTE | 2019-07-29 14:37 | Infectious Diseases Prog Note ---
Assessment/Plan Problems: (1) Pneumonia of both lower lobes Assessment & Plan: with new right lower lobe infiltrates and hypoxemia , suspect recurrent aspiration , will restart meropenem and zyvox coverage for another two weeks . aspiration precaution, monitor CXR as per pulmonary , may need tube feeding and tracheostomy . will send sputum culture (2) Catheter-associated urinary tract infection Assessment & Plan: with MDR pseudomonas aeruginosa , ESBL producing E coli and Enterococcus Faecalis vancomycin resistant , restart zyvox and meropenem for total of two weeks , continue local catheter care, recommend to change the suprapubic catheter if not done yet. D/W nurse (3) Sepsis Assessment & Plan: with gram positive cocci in chain , already on zyvox for pneumonia coverage and CAUTI , await final culture results with sensitivity , repeat blood culture to confirm clearance, may need to remove the central line (4) Decubitus skin ulcer Assessment & Plan: of the sacrum, continue off loading and local wound care as per hospital protocol (5) Respiratory failure with hypoxia Assessment & Plan: now worse, started on BIPAP , SUSPECT RECURRENT ASPIRATION , monitor ABG and CXR , pulmonary is following (6) At risk for aspiration pneumonia Assessment & Plan: aspiration precaution, may benefit from tube feeding , since weak oral phase Subjective ROS Limited/Unobtainable: Yes Allergies: Coded Allergies: PENICILLIN G (Verified Allergy, Unknown, 12/02/18) Tolerates cabapenem, cephalosporin PENICILLINS (Unverified Allergy, Unknown, 12/02/18) Subjective she was still in step down unite , and started on BIPAP due to respiratory distress and possible aspiration , awake and responsive , still congested , no fever or chills today , no diarrhea Objective Vital Signs Last 24 Hour Vital Signs Date Time Temp Pulse Resp B/P (MAP) Pulse Ox O2 Delivery O2 Flow Rate FiO2 07/29/19 12:35 98 19 88 Facial 100 98 24 92 Bi-Pap 100 07/29/19 12:00 85 07/29/19 12:00 97.7 90 26 133/90 (104) 99 07/29/19 11:20 95 24 91 Facial 100 07/29/19 09:00 Bi-pap 07/29/19 08:51 58 29 92 Facial 100 07/29/19 08:02 100 07/29/19 08:00 96.3 99 26 119/71 (87) 99 07/29/19 08:00 85 07/29/19 07:09 88 31 92 Facial 100 80 26 98 07/29/19 07:05 92 Bi-Pap 07/29/19 04:48 82 21 92 Facial 100 79 23 95 07/29/19 04:00 85 07/29/19 04:00 78 07/29/19 04:00 97.4 75 21 122/59 (80) 99 07/29/19 02:43 76 17 95 Facial 85 07/29/19 00:42 72 16 99 Facial 90 07/29/19 00:42 73 16 99 Bi-Pap 90 72 16 99 07/29/19 00:00 97.9 68 18 111/63 (79) 96 07/29/19 00:00 85 07/28/19 23:03 83 18 97 Facial 100 07/28/19 21:00 Bi-pap 07/28/19 20:56 82 19 96 Facial 65 07/28/19 20:00 98.0 84 18 122/89 (100) 96 07/28/19 20:00 85 07/28/19 20:00 82 07/28/19 18:36 82 16 98 Facial 65 07/28/19 18:36 98 Bi-Pap 07/28/19 18:36 80 14 99 Bi-Pap 65 79 16 98 07/28/19 17:23 78 16 98 Facial 70 07/28/19 16:00 84 07/28/19 16:00 85 07/28/19 16:00 98.1 83 18 111/60 (77) 100 07/28/19 15:19 83 20 98 Facial 70 Height (Feet): 4 Height (Inches): 10.00 Weight (Pounds): 156 General Appearance: WD/WN, no acute distress HEENT: normocephalic, atraumatic, anicteric, mucous membranes moist, PERRL Respiratory/Chest: chest wall non-tender, lungs clear, normal breath sounds, no respiratory distress, no accessory muscle use Cardiovascular: normal peripheral pulses, normal rate, regular rhythm, no gallop/murmur, no JVD Abdomen: normal bowel sounds, soft, non tender, no organomegaly, non distended , no mass, no scars Extremities: no cyanosis, no clubbing Skin: no rash, no lesions, no ulcers Neurologic/Psychiatric: alert, responsive Lymphatic: no neck adenopathy, no groin adenopathy Musculoskeletal: normal muscle bulk, no effusion Microbiology Date/Time Source Procedure Growth Status 07/28/19 15:18 Blood Blood Culture - Preliminary Resulted Laboratory Tests Test 07/29/19 12:19 Arterial Blood pH 7.426 (7.350-7.450) Arterial Blood Partial Pressure CO2 44.9 mmHg (35.0-45.0) Arterial Blood Partial Pressure O2 53.7 mmHg (75.0-100.0) L Arterial Blood HCO3 28.9 mmol/L (22.0-26.0) H Arterial Blood Oxygen Saturation 85.7 % (95-100) *L Arterial Blood Base Excess 4.0 (-2-2) H Gerard Test Positive Current Medications Medications (Trade) Dose Ordered Sig/Sandeep Route PRN Reason Start Time Stop Time Status Last Admin Dose Admin Acetaminophen (Tylenol) 650 mg Q6H PRN GT Mild Pain/Temp > 100.5 07/28/19 12:45 08/11/19 12:43 Acetylcysteine (Mucomyst) 200 mg Q6HRT HHN 07/28/19 13:00 08/16/19 18:59 07/29/19 12:19 Albuterol/ Ipratropium (Albuterol/ Ipratropium) 3 ml Q4H PRN HHN Shortness of Breath 07/28/19 08:00 08/01/19 19:59 07/29/19 04:34 Albuterol/ Ipratropium (Albuterol/ Ipratropium) 3 ml Q6HRT HHN 07/28/19 13:00 08/02/19 00:59 07/29/19 12:19 Apixaban (Eliquis) 5 mg BID GT 07/28/19 09:00 08/24/19 18:10 07/29/19 10:15 Chlorhexidine Gluconate (Debora-Hex 2%) 1 applic DAILY@2000 TOPIC 07/28/19 20:00 08/13/19 19:59 07/28/19 20:00 Dextrose/Sodium Chloride 1,000 ml @ 100 mls/hr Q10H IV 07/28/19 08:00 08/27/19 06:14 07/29/19 03:29 Famotidine (Pepcid) 20 mg BID GT 07/28/19 09:00 08/18/19 17:59 07/29/19 10:15 Linezolid 300 ml @ 300 mls/hr Q12HR@0500,1700 IVPB 07/28/19 17:00 08/04/19 16:59 07/29/19 04:12 Meropenem 1 gm/ Sodium Chloride 55 ml @ 110 mls/hr Q8H IVPB 07/28/19 18:00 08/02/19 17:59 07/29/19 11:54 Sennosides (Senokot) 8.6 mg BID GT 07/28/19 09:00 08/11/19 08:59 07/29/19 10:15 Gigi Sanabria M.D. Jul 29, 2019 14:37
[2019-07-29 16:00] VITALS: BP 137/72
--- NOTE | 2019-07-29 16:08 | General Progress Note ---
Assessment/Plan Status: stable Assessment/Plan: S, O: Extubated,awake today , is partially following command, seems comfortable. less of gurgling noises from upper respiratory tract, NG tube and Huber in place. on BIPAP mask PHYSICAL EXAMINATION:HEAD AND NECK: awake , Atraumatic, normocephalic. CHEST: Diffuse bronchial breathing sounds. No wheezing.HEART: S1, S2. Regular rate and rhythm. ABDOMEN: Obese, positive for suprapubic catheter.MUSCULOSKELETAL: The atrophy of the lower extremities, paraplegia are noted.NEUROLOGY: The patient is ex-tubated, not verbal, limited eval Medication and LABORATORY AND DIAGNOSTIC DATA: Dated Jul 27 reviewed ASSESSMENT AND PLAN: 1.VDRF, post extubation 2. Sepsis - healthcare associated. 3. Pneumonia, healthcare associated. 3. UTI - healthcare associated. 4. Congenital abnormalities, spina bifida, paraplegic, wheelchair-bound. 5. On New oral anticoagulation 6. GI and DVT prophylaxis. 7. Dysphagia, on NG tube, high risk for aspiration PLAN OF CARE: Current Pulmonary and ID care S/P Bronch, pending cultures Notes from ID Pulmonary reviewed Stable WBC counts, afebrile, D/w the brother ( reportedly DPOA), updated about overall medical cnd on Jul 22. I called DPOA Brother, Jul 25 . I can not leave a Family requested transfer to [facility]. Patient is on waiting list Ok to transfer to [facility]. note from pulmonary reviewed I called a DPOA at [phone], I can not leave a VM Per, DPOA, ok to speak with sister Detailed cnv with sister, requested to hunt the transfer . Otherwise I updated her about overall medical cnd Subjective Allergies: Coded Allergies: PENICILLIN G (Verified Allergy, Unknown, 12/02/18) Tolerates cabapenem, cephalosporin PENICILLINS (Unverified Allergy, Unknown, 12/02/18) Objective Last 24 Hour Vital Signs Date Time Temp Pulse Resp B/P (MAP) Pulse Ox O2 Delivery O2 Flow Rate FiO2 07/29/19 14:15 94 20 92 Facial 100 07/29/19 13:36 97 07/29/19 12:35 98 19 88 Facial 100 98 24 92 Bi-Pap 100 07/29/19 12:00 85 07/29/19 12:00 97.7 90 26 133/90 (104) 99 07/29/19 11:20 95 24 91 Facial 100 07/29/19 09:00 Bi-pap 07/29/19 08:51 58 29 92 Facial 100 07/29/19 08:02 100 07/29/19 08:00 96.3 99 26 119/71 (87) 99 07/29/19 08:00 85 07/29/19 07:09 88 31 92 Facial 100 80 26 98 07/29/19 07:05 92 Bi-Pap 07/29/19 04:48 82 21 92 Facial 100 79 23 95 07/29/19 04:00 85 07/29/19 04:00 78 07/29/19 04:00 97.4 75 21 122/59 (80) 99 07/29/19 02:43 76 17 95 Facial 85 07/29/19 00:42 72 16 99 Facial 90 07/29/19 00:42 73 16 99 Bi-Pap 90 72 16 99 07/29/19 00:00 97.9 68 18 111/63 (79) 96 07/29/19 00:00 85 07/28/19 23:03 83 18 97 Facial 100 07/28/19 21:00 Bi-pap 07/28/19 20:56 82 19 96 Facial 65 07/28/19 20:00 98.0 84 18 122/89 (100) 96 07/28/19 20:00 85 07/28/19 20:00 82 07/28/19 18:36 82 16 98 Facial 65 07/28/19 18:36 98 Bi-Pap 07/28/19 18:36 80 14 99 Bi-Pap 65 79 16 98 07/28/19 17:23 78 16 98 Facial 70 Intake and Output 07/28/19 07/29/19 19:00 07:00 Intake Total 1575 ml 1010 ml Output Total 300 ml 500 ml Balance 1275 ml 510 ml Intake Free Water 180 ml IV Total 900 ml 1010 ml Tube Feeding 495 ml Output Urine Total 300 ml 500 ml Laboratory Tests 07/29/19 12:19: Arterial Blood pH 7.426, Arterial Blood Partial Pressure CO2 44.9, Arterial Blood Partial Pressure O2 53.7L, Arterial Blood HCO3 28.9H, Arterial Blood Oxygen Saturation 85.7*L, Arterial Blood Base Excess 4.0H, Gerard Test Positive Height (Feet): 4 Height (Inches): 10.00 Weight (Pounds): 156 Denise Neri MD Jul 29, 2019 16:08
--- NOTE | 2019-07-29 19:00 | NUR ---
HAND-OFF: Report given to EMMA Laws.
--- NOTE | 2019-07-29 19:12 | NUR ---
RESPIRATORY NOTE: Received pt on BiPAP 20/5, back up rate 16, 100%. Pt is on a Facial mask, skin intact, no redness/breakdowns noted. Foam tape applied on pt's nosebridge/cheeks/chin to prevent mask irritations. Pt awake/disoriented, agitated when touched. B/S guillermo. rhonchi, sxn small to moderate amounts of thick, quiroz-yellow secretions. BiPAP plugged into red outlet, alarms on & audible Pt in no apparent distress at this time. Family present at bedside. Will continue plan of care.
--- NOTE | 2019-07-29 19:30 | NUR ---
NURSE NOTES: patient in bed awake,alert able to make needs known to staff. On BIPAP / Fi02 85% satting 100%. HOB elevated. Denies any pain or discomfort. skin warm and dry to touch. Left upper arm PICC intact running D5NS at 100cc/hr. suprapubic intact. Family at bedside. no s/s of acute distress noted. Instructed patient to use call light for assistance. Bed alarm on. bed locked and in low position. Call light within easy reach,will continue plan of care.
[2019-07-29 20:00] VITALS: BP 145/70
[2019-07-29] MEDS: Dyna-Hex 2% Top Sol 2oz TOPIC SCH (20:17)
--- NOTE | 2019-07-29 23:40 | NUR ---
NURSE NOTES: called Dr Neri per patient sister Karolyn Mueller request for MD to call [facility] for hunt transfer, explained to family that [facility] called and Case manger called [facility] that there is no bed available at this time, [facility] will call once [facility] have bed available but the sister is insisting to call MD, also MD made aware that the brother refused the restraint despite of teaching regarding the importance v/s risk and benefits of restraint, what the best for the patient due to patient pulling out BIPAP and tubing, per Dr. Neri placed the bilateral soft wrist restraint for patient safety. charge nurse and bridges supervisor made aware.
[2019-07-30] VITALS: BP 145/87
[2019-07-30] MEDS: Albuterol/Ipratropium 3ml neb HHN SCH ×4 (01:39→19:58)
[2019-07-30] MEDS: Acetylcysteine 20% Soln 4ml HHN SCH ×4 (01:39→19:58)
[2019-07-30] MEDS: Meropenem 1 GM in NS 55 ML IVPB SCH ×3 (03:18→18:22)
[2019-07-30] MEDS: D5NS 1,000 ML IV SCH ×3 (03:20→20:34)
[2019-07-30 04:00] VITALS: BP 125/84
--- NOTE | 2019-07-30 07:15 | NUR ---
HAND-OFF: Report given to Ricardo CARTER.
--- NOTE | 2019-07-30 07:16 | NUR ---
NURSE NOTES: Report received from EMMA Triplett. Pt is awake and oriented x 1-2. On bilateral restraints since pt is constantly trying to remove Bi-pap. Sinus rhythm on pig iron loader. Pt is on Bi-pap 20/5, 80%. O2 sat 90-94%. Left NGT in place. Suprapubic catheter in place draining large amount of yellow urine to gravity. JASON PICC line patent and asymptomatic. D5NS is running at 100cc/hr. Bed in lowest position. Side rails up x3. Will resume plan of care.
[2019-07-30 08:00] VITALS: BP 151/88
--- NOTE | 2019-07-30 08:49 | Pulmonology Progress Note ---
Assessment/Plan Assessment/Plan 1) Pneumonia of both lower lobes (2) Respiratory failure with hypoxia (3) UTI (urinary tract infection) (4) Paraplegia (5) Restrictive lung disease due to kyphoscoliosis (6) Pulmonary edema (7) Spina bifida Assessment/Plan Remains on BiPAP, change to 18/5 Optimize pulmonary hygiene/mobilize as tolerated Titrate O2 HHN's and NAC Abx (OTILIA/Zyvox) per ID NPO, NGTF's, VOCATIONAL EDUCATION TEACHER therapy Monitor volumes and renal function DVT Px: Eliquis FC Subjective ROS Limited/Unobtainable: Yes Interval Events: remains on BiPAP, ABG noted. NO other events Allergies: Coded Allergies: PENICILLIN G (Verified Allergy, Unknown, 12/02/18) Tolerates cabapenem, cephalosporin PENICILLINS (Unverified Allergy, Unknown, 12/02/18) Objective Last 24 Hour Vital Signs Date Time Temp Pulse Resp B/P (MAP) Pulse Ox O2 Delivery O2 Flow Rate FiO2 07/30/19 07:28 Facial 100 Bi-Pap 07/30/19 07:22 97 Bi-Pap 100 07/30/19 07:13 87 22 97 Facial 100 Bi-Pap 100 07/30/19 05:21 101 25 91 Facial 100 07/30/19 04:00 85 07/30/19 04:00 98.0 99 24 125/84 (98) 91 07/30/19 04:00 102 07/30/19 04:00 98 19 92 Facial 100 07/30/19 01:54 106 28 90 Bi-Pap 100 07/30/19 01:39 103 26 90 Facial 100 Bi-Pap 100 07/30/19 00:00 98.3 99 24 145/87 (106) 95 07/30/19 00:00 99 07/30/19 00:00 85 07/29/19 23:13 103 25 90 Facial 100 07/29/19 21:00 Bi-pap 07/29/19 20:50 97 30 91 Facial 100 07/29/19 20:00 98.0 100 22 145/70 (95) 99 07/29/19 20:00 85 07/29/19 20:00 101 07/29/19 19:19 103 29 95 Bi-Pap 100 07/29/19 19:04 78 22 93 Facial 100 Bi-Pap 100 07/29/19 19:04 93 Bi-Pap 100 07/29/19 17:06 92 27 94 Facial 100 07/29/19 16:00 97.7 92 22 137/72 (93) 99 07/29/19 16:00 97 07/29/19 16:00 85 07/29/19 14:15 94 20 92 Facial 100 07/29/19 13:36 97 07/29/19 12:35 98 19 88 Facial 100 98 24 92 Bi-Pap 100 07/29/19 12:00 85 07/29/19 12:00 97.7 90 26 133/90 (104) 99 07/29/19 11:20 95 24 91 Facial 100 07/29/19 09:00 Bi-pap 07/29/19 08:51 58 29 92 Facial 100 Intake and Output 07/29/19 07/30/19 19:00 07:00 Intake Total 100 ml 1352 ml Output Total 1100 ml 1600 ml Balance -1000 ml -248 ml IV Total 100 ml 1352 ml Output Urine Total 1100 ml 1600 ml General Appearance: no acute distress HEENT: mucous membranes moist Respiratory/Chest: lungs clear Cardiovascular: regular rhythm Abdomen: soft, non tender Extremities: no edema Microbiology Date/Time Source Procedure Growth Status 07/28/19 15:18 Blood Blood Culture - Preliminary Strep Species, Alpha Hemolytic Resulted Laboratory Tests 07/29/19 12:19: Arterial Blood pH 7.426, Arterial Blood Partial Pressure CO2 44.9, Arterial Blood Partial Pressure O2 53.7L, Arterial Blood HCO3 28.9H, Arterial Blood Oxygen Saturation 85.7*L, Arterial Blood Base Excess 4.0H, Gerard Test Positive Current Medications Medications (Trade) Dose Ordered Sig/Sandeep Route PRN Reason Start Time Stop Time Status Last Admin Dose Admin Acetaminophen (Tylenol) 650 mg Q6H PRN GT Mild Pain/Temp > 100.5 07/28/19 12:45 08/11/19 12:43 Acetylcysteine (Mucomyst) 200 mg Q6HRT HHN 07/28/19 13:00 08/16/19 18:59 07/30/19 07:13 Albuterol/ Ipratropium (Albuterol/ Ipratropium) 3 ml Q4H PRN HHN Shortness of Breath 07/28/19 08:00 08/01/19 19:59 07/29/19 04:34 Albuterol/ Ipratropium (Albuterol/ Ipratropium) 3 ml Q6HRT HHN 07/28/19 13:00 08/02/19 00:59 07/30/19 07:13 Apixaban (Eliquis) 5 mg BID GT 07/28/19 09:00 08/24/19 18:10 07/29/19 18:42 Chlorhexidine Gluconate (Debora-Hex 2%) 1 applic DAILY@2000 TOPIC 07/28/19 20:00 08/13/19 19:59 07/29/19 20:17 Dextrose/Sodium Chloride 1,000 ml @ 100 mls/hr Q10H IV 07/28/19 08:00 08/27/19 06:14 07/30/19 03:20 Famotidine (Pepcid) 20 mg BID GT 07/28/19 09:00 08/18/19 17:59 07/29/19 18:41 Linezolid 300 ml @ 300 mls/hr Q12HR@0500,1700 IVPB 07/28/19 17:00 08/04/19 16:59 07/30/19 05:32 Meropenem 1 gm/ Sodium Chloride 55 ml @ 110 mls/hr Q8H IVPB 07/28/19 18:00 08/02/19 17:59 07/30/19 03:18 Sennosides (Senokot) 8.6 mg BID GT 07/28/19 09:00 08/11/19 08:59 07/29/19 18:41 Walker Bonilla MD Jul 30, 2019 08:49
[2019-07-30] MEDS: Eliquis 5mg tablet GT SCH ×2 (09:17→18:21)
[2019-07-30] MEDS: Sennosides 8.6mg tab GT SCH ×2 (09:17→18:21)
[2019-07-30 12:00] VITALS: BP 132/77
--- NOTE | 2019-07-30 12:31 | General Progress Note ---
Assessment/Plan Status: stable Assessment/Plan: S, O: Extubated,awake today , is partially following command, seems comfortable. less of gurgling noises from upper respiratory tract, NG tube and Huber in place. on BIPAP mask PHYSICAL EXAMINATION:HEAD AND NECK: awake , Atraumatic, normocephalic. CHEST: Diffuse bronchial breathing sounds. No wheezing.HEART: S1, S2. Regular rate and rhythm. ABDOMEN: Obese, positive for suprapubic catheter.MUSCULOSKELETAL: The atrophy of the lower extremities, paraplegia are noted.NEUROLOGY: The patient is ex-tubated, not verbal, limited eval Medication and LABORATORY AND DIAGNOSTIC DATA: Dated Jul 28 reviewed ASSESSMENT AND PLAN: 1.VDRF, post extubation 2. Sepsis - healthcare associated. 3. Pneumonia, healthcare associated. 3. UTI - healthcare associated. 4. Congenital abnormalities, spina bifida, paraplegic, wheelchair-bound. 5. On New oral anticoagulation 6. GI and DVT prophylaxis. 7. Dysphagia, on NG tube, high risk for aspiration PLAN OF CARE: Current Pulmonary and ID care S/P Bronch, pending cultures Notes from ID Pulmonary reviewed Stable WBC counts, afebrile, D/w the brother ( reportedly DPOA), updated about overall medical cnd on Jul 22. I called DPOA Brother, Jul 25 . I can not leave a Family requested transfer to [facility]. Patient is on waiting list Ok to transfer to [facility]. note from pulmonary reviewed I called a DPOA at [phone], I can not leave a VM Per, IRON, ok to speak with sister Detailed cnv with sister, requested to hunt the transfer . Otherwise I updated her about overall medical cnd Spoke with IRON, on 07/29/19 , at 6 PM. Notifed about medical necessity for PEG tube placement. reported that he will talk with family and will let me know Received multiple Voice calls from sister, including many Defamatory statements , requesting STAT transfer to higher level of care. FIRE INFORMATION OFFICER and CM are notified Spoke with PCP/ MD @ [facility],07/29/19 , at [address] Ceja. She reported that currently [facility] is backed up and there is no chance for any immediate transfer for this stable patient at this time. Spoke to the sister, requested change of the Attedning to Dr Masters. I notified him and he agreed. I will sign off this case Subjective Allergies: Coded Allergies: PENICILLIN G (Verified Allergy, Unknown, 12/02/18) Tolerates cabapenem, cephalosporin PENICILLINS (Unverified Allergy, Unknown, 12/02/18) Objective Last 24 Hour Vital Signs Date Time Temp Pulse Resp B/P (MAP) Pulse Ox O2 Delivery O2 Flow Rate FiO2 07/30/19 09:24 88 28 100 Facial 100 Bi-Pap 100 07/30/19 09:00 Bi-pap 07/30/19 08:00 99.1 102 22 151/88 (109) 94 07/30/19 08:00 85 07/30/19 07:47 96 07/30/19 07:28 Facial 100 Bi-Pap 07/30/19 07:22 97 Bi-Pap 100 07/30/19 07:13 87 22 97 Facial 100 Bi-Pap 100 07/30/19 05:21 101 25 91 Facial 100 07/30/19 04:00 85 07/30/19 04:00 98.0 99 24 125/84 (98) 91 07/30/19 04:00 102 07/30/19 04:00 98 19 92 Facial 100 07/30/19 01:54 106 28 90 Bi-Pap 100 07/30/19 01:39 103 26 90 Facial 100 Bi-Pap 100 07/30/19 00:00 98.3 99 24 145/87 (106) 95 07/30/19 00:00 99 07/30/19 00:00 85 07/29/19 23:13 103 25 90 Facial 100 07/29/19 21:00 Bi-pap 07/29/19 20:50 97 30 91 Facial 100 07/29/19 20:00 98.0 100 22 145/70 (95) 99 07/29/19 20:00 85 07/29/19 20:00 101 07/29/19 19:19 103 29 95 Bi-Pap 100 07/29/19 19:04 78 22 93 Facial 100 Bi-Pap 100 07/29/19 19:04 93 Bi-Pap 100 07/29/19 17:06 92 27 94 Facial 100 07/29/19 16:00 97.7 92 22 137/72 (93) 99 07/29/19 16:00 97 07/29/19 16:00 85 07/29/19 14:15 94 20 92 Facial 100 07/29/19 13:36 97 07/29/19 12:35 98 19 88 Facial 100 98 24 92 Bi-Pap 100 Intake and Output 07/29/19 07/30/19 19:00 07:00 Intake Total 100 ml 1352 ml Output Total 1100 ml 1600 ml Balance -1000 ml -248 ml IV Total 100 ml 1352 ml Output Urine Total 1100 ml 1600 ml Height (Feet): 4 Height (Inches): 10.00 Weight (Pounds): 157 Denise Neri MD Jul 30, 2019 12:31
--- NOTE | 2019-07-30 14:17 | Infectious Diseases Prog Note ---
Assessment/Plan Problems: (1) Pneumonia of both lower lobes Assessment & Plan: with new right lower lobe infiltrates and hypoxemia , suspect recurrent aspiration , will restart meropenem and zyvox coverage for another two weeks . aspiration precaution, monitor CXR as per pulmonary , may need tube feeding and tracheostomy . will send sputum culture (2) Catheter-associated urinary tract infection Assessment & Plan: with MDR pseudomonas aeruginosa , ESBL producing E coli and Enterococcus Faecalis vancomycin resistant , restart zyvox and meropenem for total of two weeks , continue local catheter care, recommend to change the suprapubic catheter if not done yet. D/W nurse (3) Sepsis Assessment & Plan: with streptococcus alpha hemolytic , already on zyvox for pneumonia coverage and CAUTI , await repeated blood culture to confirm clearance, may need to remove the central line (4) Decubitus skin ulcer Assessment & Plan: of the sacrum, continue off loading and local wound care as per hospital protocol (5) Respiratory failure with hypoxia Assessment & Plan: now worse, started on BIPAP , SUSPECT RECURRENT ASPIRATION , monitor ABG and CXR , pulmonary is following (6) At risk for aspiration pneumonia Assessment & Plan: aspiration precaution, may benefit from tube feeding , since weak oral phase Subjective ROS Limited/Unobtainable: Yes Allergies: Coded Allergies: PENICILLIN G (Verified Allergy, Unknown, 12/02/18) Tolerates cabapenem, cephalosporin PENICILLINS (Unverified Allergy, Unknown, 12/02/18) Subjective she was in step down unite , resting in bed comfortable, on BIPAP due to respiratory distress and possible aspiration , awake and responsive , still congested , no fever or chills today , no diarrhea Objective Vital Signs Last 24 Hour Vital Signs Date Time Temp Pulse Resp B/P (MAP) Pulse Ox O2 Delivery O2 Flow Rate FiO2 07/30/19 12:44 88 27 100 Facial 100 87 27 100 Bi-Pap 100 07/30/19 12:00 98.6 95 21 132/77 (95) 94 07/30/19 12:00 85 07/30/19 11:32 95 07/30/19 09:24 88 28 100 Facial 100 Bi-Pap 100 07/30/19 09:00 Bi-pap 07/30/19 08:00 99.1 102 22 151/88 (109) 94 07/30/19 08:00 85 07/30/19 07:47 96 1/8/20 07:28 Facial 100 Bi-Pap 07/30/19 07:22 97 Bi-Pap 100 07/30/19 07:13 87 22 97 Facial 100 Bi-Pap 100 07/30/19 05:21 101 25 91 Facial 100 07/30/19 04:00 85 07/30/19 04:00 98.0 99 24 125/84 (98) 91 07/30/19 04:00 102 07/30/19 04:00 98 19 92 Facial 100 07/30/19 01:54 106 28 90 Bi-Pap 100 07/30/19 01:39 103 26 90 Facial 100 Bi-Pap 100 07/30/19 00:00 98.3 99 24 145/87 (106) 95 07/30/19 00:00 99 07/30/19 00:00 85 07/29/19 23:13 103 25 90 Facial 100 07/29/19 21:00 Bi-pap 07/29/19 20:50 97 30 91 Facial 100 07/29/19 20:00 98.0 100 22 145/70 (95) 99 07/29/19 20:00 85 07/29/19 20:00 101 07/29/19 19:19 103 29 95 Bi-Pap 100 07/29/19 19:04 78 22 93 Facial 100 Bi-Pap 100 07/29/19 19:04 93 Bi-Pap 100 07/29/19 17:06 92 27 94 Facial 100 07/29/19 16:00 97.7 92 22 137/72 (93) 99 07/29/19 16:00 97 07/29/19 16:00 85 Height (Feet): 4 Height (Inches): 10.00 Weight (Pounds): 157 General Appearance: WD/WN, no acute distress HEENT: normocephalic, atraumatic, anicteric, mucous membranes moist, PERRL Respiratory/Chest: chest wall non-tender, no respiratory distress, no accessory muscle use, decreased breath sounds, crackles/rales Cardiovascular: normal peripheral pulses, normal rate, regular rhythm, no gallop/murmur, no JVD Abdomen: normal bowel sounds, soft, non tender, no organomegaly, non distended , no mass, no scars Genitourinary: normal external genitalia Extremities: no cyanosis, no clubbing Skin: no rash, no lesions Neurologic/Psychiatric: video engineer II-XII grossly normal, oriented x 3, responsive Lymphatic: no neck adenopathy, no groin adenopathy Musculoskeletal: normal muscle bulk, no effusion Microbiology Date/Time Source Procedure Growth Status 07/28/19 15:18 Blood Blood Culture - Preliminary Strep Species, Alpha Hemolytic Resulted Current Medications Medications (Trade) Dose Ordered Sig/Sandeep Route PRN Reason Start Time Stop Time Status Last Admin Dose Admin Acetaminophen (Tylenol) 650 mg Q6H PRN GT Mild Pain/Temp > 100.5 07/28/19 12:45 08/11/19 12:43 Acetylcysteine (Mucomyst) 200 mg Q6HRT HHN 07/28/19 13:00 08/16/19 18:59 07/30/19 12:43 Albuterol/ Ipratropium (Albuterol/ Ipratropium) 3 ml Q4H PRN N Shortness of Breath 07/28/19 08:00 08/01/19 19:59 07/29/19 04:34 Albuterol/ Ipratropium (Albuterol/ Ipratropium) 3 ml Q6HRT HHN 07/28/19 13:00 08/02/19 00:59 07/30/19 12:43 Apixaban (Eliquis) 5 mg BID GT 07/28/19 09:00 08/24/19 18:10 07/30/19 09:17 Chlorhexidine Gluconate (Debora-Hex 2%) 1 applic DAILY@2000 TOPIC 07/28/19 20:00 08/13/19 19:59 07/29/19 20:17 Dextrose/Sodium Chloride 1,000 ml @ 100 mls/hr Q10H IV 07/28/19 08:00 08/27/19 06:14 07/30/19 09:18 Famotidine (Pepcid) 20 mg BID GT 07/28/19 09:00 08/18/19 17:59 07/30/19 09:17 Linezolid 300 ml @ 300 mls/hr Q12HR@0500,1700 IVPB 07/28/19 17:00 08/04/19 16:59 07/30/19 05:32 Meropenem 1 gm/ Sodium Chloride 55 ml @ 110 mls/hr Q8H IVPB 07/28/19 18:00 08/02/19 17:59 07/30/19 09:45 Sennosides (Senokot) 8.6 mg BID GT 07/28/19 09:00 08/11/19 08:59 07/30/19 09:17 Gigi Sanabria M.D. Jul 30, 2019 14:17
--- NOTE | 2019-07-30 15:00 | NUR ---
NURSE NOTES: Spoke with Stefania. No bed available in [facility]. Dr Neri is aware. Pt is on Bipap 20/5, 85%. O2 sat 92-95%. Deep suctioning done by RT as needed. Will continue to monitor.
[2019-07-30 16:00] VITALS: BP 136/81
--- NOTE | 2019-07-30 16:25 | NUR ---
ST NOTES: SWALLOW STATUS: PATIENT STILL ON BIPAP AND HAS HIGH RESP RATE (UP TO 28 BPM) AND DESATURATES WHEN OFF BIPAP. DR KIM SAW PT TO ASSESS FOR NONORAL FEEDINGS (PEG). PLAN: F/UP WHEN OFF BIPAP CONTINUE WITH ORAL CARE/SUCTION PRN AND NONORAL NGT FEEDINGS
--- NOTE | 2019-07-30 17:10 | NUR ---
TIPPLE OPERATOR NOTES SPOKE WITH PT'S SISTER MULTIPLE TIMES THROUGHOUT MY SHIFT. UPDATED ON TRANSFER TO [facility]. [facility] PT'S SISTER MADE AWARE THAT DOCUMENTATION CAN'T BE CHANGED TO HIGHER LEVEL OF CARE DUE TO TREATMENT PT REQUIRE CAN BE RENDERED AT [place]. ALSO EXPLAINED THE TERM LATERAL VS HIGHER LEVEL OF CARE, HAMMAD CONTINUES TO CONFUSE THE TWO, WILL CONTINUE TO EDUCATE ON HIGHER LEVEL OF CARE. HAMMAD INSTRUCTED ME TO CALL AN AMBULANCE TO TRANSFER PT TO [facility] ER, I EXPLAINED TO HAMMAD THAT WILL BE CONSIDERED DUMPING AND THAT WILL NOT BE SAFE FOR THE PT. HAMMAD STATED SHE WILL CALL HER OWN AMBULANCE FOR TRANSFER. RISK AND BENEFITS EXPLAINED TO HAMMAD, UNABLE TO UNDERSTAND TEACHING AT THIS TIME,WILL CONTINUE TO EDUCATE. 1530- RECEIVED A CALL FROM [facility] STATING DR. SANTACRUZ WILL DO AN DIRECT ADMIT TO [facility],I EXPLAINED TO HAMMAD I NEED A BED AND ACCEPTING DRShadi TO TRANSFER A DIRECT ADMIT. I ENCOURAGED HER TO HAVE DR. SANTACRUZ CALL ME FOR FOLLOW UP. 1644- RECEIVED A CALL FROM DR. SANTACRUZ FROM [facility], STATED SHE WILL ACCEPT THE PT A DIRECT ADMIT,I INFORMED DR. SANTACRUZ I NEEDED A BED TO TRANSFER PT A DIRECT ADMIT. DR. SANTACRUZ STATED [facility] IS FULL AT THIS TIME WITH NO BEDS AVAILABLE. PLACED A CALL TO [facility] UPDATED ON TRANSFER WITH BED PENDING. UPDATED CHARGE NURSE ON FLOOR. DCP ONGOING AT THIS TIME REQUESTED A TIME FOR A FAMILY MEETING PER HAMMAD SHE CAN'T COME UNTIL 7PM. INFORMED HAMMAD THAT WAS TO LATE. ENCOURAGED HAMMAD TO SELECT A BETTER TIME TO DISCUSS PT'S CARE PLAN. PER HAMMAD THAT'S THE ONLY TIME I HAVE"! I REQUESTED A TELEPHONE DISCUSSION WITH THE ATTENDING DOCTORS AND HAMMAD DECLINED. WILL CONTINUE TO PROVIDE UPDATES AND DISCUSS ONGOING CONCERNS WITH THE FAMILY. MADE AWARE OF NO FAMILY MEETING SCHEDULED AT THIS TIME.
--- NOTE | 2019-07-30 19:50 | NUR ---
HAND-OFF: Report given to EMMA Horton.
--- NOTE | 2019-07-30 19:51 | NUR ---
NURSE NOTES: received pt from Carissa Mallory RN., pt is awake and AOX2, no dysrhythmia reported from previous shift. pt is on Bipap 20.5 85%, O2sat is at 91% at this moment. Left upper arm PICC line intact, clean, and patent. pt is on NGT on left nare, running at 10cc/hr. supra pubic cath is draining well with gravity. soft restrain on bilateral wrist, pulse noted, no skin issues, and skin color is bed at the lowest position, alarmed, and locked. call light within reach. will continue to monitor pt with plan of care.
[2019-07-30 20:00] VITALS: BP 132/73
--- NOTE | 2019-07-30 20:15 | Consultation ---
DATE OF CONSULTATION: 07/30/2019 CHIEF COMPLAINT: Dysphagia. HISTORY OF PRESENT ILLNESS: Most of the history obtained from chart. The patient is a 49-year-old female with history of spina bifida, TIMBER ESTIMATOR shunt, decubital ulcerations, nephrostomy tube placement presented to the hospital with bilateral pneumonia and respiratory failure, possible aspiration pneumonia. The patient has been admitted on 07/12/2019 and since then in the hospital. GI consult requested because speech therapist thinks that the patient is aspirating into the G-tube. PAST MEDICAL HISTORY: 1. Spina bifida. 2. TIMBER ESTIMATOR shunt. 3. Nephrostomy tube placement. 4. Decubital ulcerations. ALLERGIES: To penicillin. MEDICATIONS: Please see medication reconciliation list. SOCIAL HISTORY: There is no history of tobacco, alcohol, or drug abuse. FAMILY HISTORY: Noncontributory. REVIEW OF SYSTEMS: Limited. PHYSICAL EXAMINATION: VITAL SIGNS: Most recent vital signs temperature is 98.6, pulse 88, respirations 27, blood pressure is 132/77. HEENT: Normocephalic and atraumatic. Sclerae anicteric. NECK: Supple. No evidence of obvious lymphadenopathy. CARDIOVASCULAR: Regular rate and rhythm. Plus S1 and S2. LUNGS: Decreased breath sounds bilaterally and diffusely. ABDOMEN: Soft and nontender. No rebound. No guarding. No peritoneal sign. EXTREMITIES: No cyanosis. No clubbing. LABORATORY AND DIAGNOSTIC DATA: White count is 10, hemoglobin 8.7, hematocrit 29, platelets are 317. Chem-7, sodium 141, potassium 3.5, BUN 16, creatinine 0.3. ASSESSMENT AND PLAN: The patient is a 49-year-old female with multiple medical problems as dictated above now with dysphagia, aspiration pneumonia currently on BiPAP. The patient most probably needs a G-tube given the multiple aspiration pneumonias. I had a long discussion with the speech therapist. Recommendation is that the patient to get a PEG and when more stable we can trial of eating in daytime and feeding tube at nighttime to give adequate nutrition. At this time, family refusing G-tube. They want the patient to be transferred to [facility]. I will have continue talking to them. The patient currently has NG-tube. We are going to start tube feeding through NG tube until we make a decision regarding PEG and when the patient is more stable. I want to thank, Dr. Neri for this kind referral. Tim Davis M.D. DR: Jorge JOB#: [id number] CC: Denise Neri M.D.; Fax#: [phone]
[2019-07-30] MEDS: Dyna-Hex 2% Top Sol 2oz TOPIC SCH (20:34)
--- NOTE | 2019-07-30 23:50 | NUR ---
NURSE NOTES: held feeding due to pt is congested. call light within reach. bipap is on. O2sat at 84-87%. will closely monitor pt.
[2019-07-31] VITALS (13 sets, daily range): BP systolic 86–150; BP diastolic 38–86
--- NOTE | 2019-07-31 | NUR ---
NURSE NOTES: cleaned pt and gave oral care. call light within reach. O2sat is at 87%. will closely monitor pt.
[2019-07-31] MEDS: Albuterol/Ipratropium 3ml neb HHN SCH ×5 (00:59→23:26)
[2019-07-31] MEDS: Acetylcysteine 20% Soln 4ml HHN SCH ×5 (00:59→23:25)
[2019-07-31] MEDS: Meropenem 1 GM in NS 55 ML IVPB SCH ×3 (01:20→17:45)
--- NOTE | 2019-07-31 03:06 | NUR ---
NURSE NOTES: notified Dr. Youngblood regarding pt is desaturating around 81% to 86%. per Dr. Youngblood change bipap setting to 20/7 100% and ABG in AM. will noted and carry on.
--- NOTE | 2019-07-31 03:30 | NUR ---
NURSE NOTES: pt's O2sat is at 89-91%, and pt is sleeping at this moment. will closely monitor pt.
[2019-07-31] MEDS: D5NS 1,000 ML IV SCH ×3 (05:00→22:22)
[2019-07-31 05:58] LABS: BASOPHILS % (AUTO) 0.5 % (0.0-2.0); EOSINOPHILS % (AUTO) 2.9 % (0.0-3.0); HEMATOCRIT 31.4 % (37.0-47.0); HEMOGLOBIN 9.3 G/DL (12.0-16.0); LYMPHOCYTES % (AUTO) 11.1 % (20.0-45.0); MEAN CORPUSCULAR VOLUME 71 FL (80-99); MONOCYTES % (AUTO) 6.9 % (1.0-10.0); NEUTROPHILS % (AUTO) 78.6 % (45.0-75.0); PLATELET COUNT 249 K/UL (150-450); RED BLOOD COUNT 4.44 M/UL (4.20-5.40); RED CELL DISTRIBUTION WIDTH 18.2 % (11.6-14.8); WHITE BLOOD COUNT 10.8 K/UL (4.8-10.8)
[2019-07-31 06:01] LABS: ALANINE AMINOTRANSFERASE 46 U/L (12-78); ALBUMIN 2.1 G/DL (3.4-5.0); ALBUMIN/GLOBULIN RATIO 0.4 (1.0-2.7); ALKALINE PHOSPHATASE 91 U/L (46-116); ANION GAP 8 mmol/L (5-15); ASPARTATE AMINO TRANSFERASE 40 U/L (15-37); BILIRUBIN,TOTAL 0.4 MG/DL (0.2-1.0); BLOOD UREA NITROGEN 4 mg/dL (7-18); CARBON DIOXIDE 31 MMOL/L (21-32); CHLORIDE 106 MMOL/L (98-107); CREATININE 0.4 MG/DL (0.55-1.30); SODIUM 145 MMOL/L (136-145)
[2019-07-31 06:04] LABS: % IRON SATURATION 5 % (15-50); IRON 10 ug/dL (50-175); TOTAL IRON BINDING CAPACITY 202 ug/dL (250-450)
[2019-07-31 06:14] LABS: POTASSIUM 2.5 MMOL/L (3.5-5.1)
--- NOTE | 2019-07-31 06:25 | NUR ---
NURSE NOTES: Dr. Neri aware pt's potassium is critically low at 2.[address] Neri order KCL 40x1 and change attending MD to . will noted and carry on.
--- NOTE | 2019-07-31 07:44 | NUR ---
HAND-OFF: Report given to Perfecto CARTER., pt is in stable condition. endorsed to carry plan of care.
--- NOTE | 2019-07-31 08:38 | NUR ---
NURSE NOTES: Dr. Bonilla at the bedside assessing patient and made aware of patient saturations of 82-86 with bipap at 100% FIO2, Ordered to have a STAT chest X-ray, inform of ABG and change duoneb along with Mucomyst to Q4hrs. RT currently at the bedside getting ABG.
--- NOTE | 2019-07-31 08:50 | Pulmonology Progress Note ---
Assessment/Plan Assessment/Plan 1) Pneumonia of both lower lobes (2) Respiratory failure with hypoxia (3) UTI (urinary tract infection) (4) Paraplegia (5) Restrictive lung disease due to kyphoscoliosis (6) Pulmonary edema (7) Spina bifida Assessment/Plan Remains on BiPAP, 20/7 and saturation in 80s Stat CXR Duonebs and mucomyst q4 Chest PT suction aggressively Transfer to ICU, will likely need intubation if saturation does not improve Abx (OTILIA/Zyvox) per ID NPO, NGTF's, CONSULTATIVE SALES ASSOCIATE therapy Monitor volumes and renal function DVT Px: Eliquis FC Subjective ROS Limited/Unobtainable: Yes Interval Events: Desaturating on BiPAP 100%. Low PO2. Alert but restless Allergies: Coded Allergies: PENICILLIN G (Verified Allergy, Unknown, 12/02/18) Tolerates cabapenem, cephalosporin PENICILLINS (Unverified Allergy, Unknown, 12/02/18) Objective Last 24 Hour Vital Signs Date Time Temp Pulse Resp B/P (MAP) Pulse Ox O2 Delivery O2 Flow Rate FiO2 07/31/19 08:00 86 Bi-Pap 100 07/31/19 07:59 95 25 85 Bi-Pap 90 94 24 85 07/31/19 07:57 94 57 85 Full Face 100 07/31/19 05:06 95 17 90 Full Face 100 07/31/19 04:00 99.0 87 21 142/82 (102) 88 87 07/31/19 04:00 85 07/31/19 03:33 96 07/31/19 03:01 99 17 85 Full Face 100 07/31/19 00:59 98 23 87 Full Face 100 100 23 97 Bi-Pap 100 07/31/19 00:00 99.2 102 25 150/78 (102) 88 102 07/31/19 00:00 85 07/30/19 23:25 103 07/30/19 22:55 99 17 93 Full Face 100 07/30/19 21:30 100 32 92 Facial 100 07/30/19 21:00 Bi-pap 07/30/19 20:03 92 Bi-Pap 100 07/30/19 20:00 85 07/30/19 20:00 99.1 98 32 132/73 (92) 89 07/30/19 20:00 94 07/30/19 19:58 88 30 92 Facial 100 89 27 98 Bi-Pap 100 07/30/19 17:19 86 27 100 Facial 100 Bi-Pap 100 07/30/19 16:00 85 07/30/19 16:00 98.4 99 25 136/81 (99) 95 07/30/19 15:18 90 07/30/19 15:14 90 26 100 Facial 100 Bi-Pap 100 07/30/19 12:44 88 27 100 Facial 100 87 27 100 Bi-Pap 100 07/30/19 12:00 98.6 95 21 132/77 (95) 94 07/30/19 12:00 85 07/30/19 11:32 95 07/30/19 11:11 90 26 100 Facial 100 Bi-Pap 100 07/30/19 09:24 88 28 100 Facial 100 Bi-Pap 100 07/30/19 09:00 Bi-pap Intake and Output 07/30/19 07/31/19 19:00 07:00 Intake Total 2220 ml 1358 ml Output Total 1225 ml 1000 ml Balance 995 ml 358 ml Intake Free Water 30 ml IV Total 2210 ml 1298 ml Tube Feeding 10 ml 30 ml Output Urine Total 1225 ml 1000 ml # Bowel Movements 1 General Appearance: other - Mild distress HEENT: mucous membranes moist Respiratory/Chest: decreased breath sounds - on left Cardiovascular: normal rate Abdomen: soft, non tender Extremities: no edema Neurologic/Psychiatric: alert Microbiology Date/Time Source Procedure Growth Status 07/29/19 18:25 Blood Blood Culture - Preliminary NO GROWTH AFTER 24 HOURS Resulted 07/29/19 17:55 Blood Blood Culture - Preliminary NO GROWTH AFTER 24 HOURS Resulted 07/28/19 15:28 Blood Blood Culture - Preliminary NO GROWTH AFTER 48 HOURS Resulted 07/28/19 15:18 Blood Blood Culture - Preliminary Strep Species, Alpha Hemolytic Resulted Laboratory Tests 07/31/19 02:20: Stool Occult Blood [Pending] 07/31/19 04:30: White Blood Count 10.8, Red Blood Count 4.44, Hemoglobin 9.3L, Hematocrit 31.4L , Mean Corpuscular Volume 71L, Mean Corpuscular Hemoglobin 20.9L, Mean Corpuscular Hemoglobin Concent 29.6L, Red Cell Distribution Width 18.2H, Platelet Count 249, Mean Platelet Volume 5.5L, Neutrophils (%) (Auto) 78.6H, Lymphocytes (%) (Auto) 11.1L, Monocytes (%) (Auto) 6.9, Eosinophils (%) (Auto) 2.9, Basophils (%) (Auto) 0.5, Sodium Level 145, Potassium Level 2.5*L, Chloride Level 106, Carbon Dioxide Level 31, Anion Gap 8, Blood Urea Nitrogen 4L , Creatinine 0.4L, Estimat Glomerular Filtration Rate > 60, Glucose Level 102, Calcium Level 8.0L, Iron Level 10L, Total Iron Binding Capacity 202L, Percent Iron Saturation 5L, Unsaturated Iron Binding 192, Total Bilirubin 0.4, Aspartate Amino Transf (AST/SGOT) 40H, Alanine Aminotransferase (ALT/SGPT) 46, Alkaline Phosphatase 91, Total Protein 6.8, Albumin 2.1L, Globulin 4.7, Albumin/ Globulin Ratio 0.4L 07/31/19 08:30: Arterial Blood pH 7.402, Arterial Blood Partial Pressure CO2 51.6H, Arterial Blood Partial Pressure O2 < 45.3*L, Arterial Blood HCO3 31.4H, Arterial Blood Oxygen Saturation 75.6*L, Arterial Blood Base Excess 5.6H, Gerard Test Positive Current Medications Medications (Trade) Dose Ordered Sig/Sandeep Route PRN Reason Start Time Stop Time Status Last Admin Dose Admin Acetaminophen (Tylenol) 650 mg Q6H PRN GT Mild Pain/Temp > 100.5 07/28/19 12:45 08/11/19 12:43 07/31/19 01:13 Acetylcysteine (Mucomyst) 200 mg Q4HRT N 07/31/19 11:00 08/16/19 18:59 Albuterol/ Ipratropium (Albuterol/ Ipratropium) 3 ml Q4H PRN HHN Shortness of Breath 07/28/19 08:00 08/01/19 19:59 07/29/19 04:34 Albuterol/ Ipratropium (Albuterol/ Ipratropium) 3 ml Q4HRT N 07/31/19 11:00 08/02/19 00:59 Apixaban (Eliquis) 5 mg BID GT 07/28/19 09:00 08/24/19 18:10 07/30/19 18:21 Chlorhexidine Gluconate (Debora-Hex 2%) 1 applic DAILY@1999 TOPIC 07/28/19 20:00 08/13/19 19:59 07/30/19 20:34 Dextrose/Sodium Chloride 1,000 ml @ 100 mls/hr Q10H IV 07/28/19 08:00 08/27/19 06:14 07/31/19 05:00 Famotidine (Pepcid) 20 mg BID GT 07/28/19 09:00 08/18/19 17:59 07/30/19 18:20 Linezolid 300 ml @ 300 mls/hr Q12HR@0500,1700 IVPB 07/28/19 17:00 08/04/19 16:59 07/31/19 05:00 Meropenem 1 gm/ Sodium Chloride 55 ml @ 110 mls/hr Q8H IVPB 07/28/19 18:00 08/02/19 17:59 07/31/19 01:20 Potassium Chloride 100 ml @ 100 mls/hr Q1HR IVPB 07/31/19 08:00 07/31/19 11:59 Sennosides (Senokot) 8.6 mg BID GT 07/28/19 09:00 08/11/19 08:59 07/30/19 18:21 Walker Bonilla MD Jul 31, 2019 08:50
[2019-07-31] MEDS: Eliquis 5mg tablet GT SCH ×2 (09:22→18:25)
[2019-07-31] MEDS: Sennosides 8.6mg tab GT SCH ×2 (09:22→18:25)
--- NOTE | 2019-07-31 10:59 | Infectious Diseases Prog Note ---
Assessment/Plan Problems: (1) Pneumonia of both lower lobes Assessment & Plan: with new right lower lobe infiltrates and hypoxemia , suspect recurrent aspiration , and now with bloody secretions rule out hemorrhagic alveolitis , continue meropenem and zyvox coverage for now . aspiration precaution, repeat CXR today stat , may need tube feeding and tracheostomy . await sputum culture . may need to stop eliquis (2) Catheter-associated urinary tract infection Assessment & Plan: with MDR pseudomonas aeruginosa , ESBL producing E coli and Enterococcus Faecalis vancomycin resistant , back on zyvox and meropenem for total of two weeks , continue local catheter care, recommend to change the suprapubic catheter if not done yet. D/W nurse (3) Sepsis Assessment & Plan: with streptococcus alpha hemolytic , already on zyvox for pneumonia coverage , repeated blood culture is negative so far , may need to remove the central line and put a new one (4) Decubitus skin ulcer Assessment & Plan: of the sacrum, continue off loading and local wound care as per hospital protocol (5) Respiratory failure with hypoxia Assessment & Plan: now worse, with low O2 on ABG, and bloody secretions from the throat , possible hemorrhage , still on BIPAP , monitor ABG and repeat CXR , pulmonary is following (6) At risk for aspiration pneumonia Assessment & Plan: aspiration precaution, may benefit from tube feeding , since weak oral phase Subjective ROS Limited/Unobtainable: Yes Allergies: Coded Allergies: PENICILLIN G (Verified Allergy, Unknown, 12/02/18) Tolerates cabapenem, cephalosporin PENICILLINS (Unverified Allergy, Unknown, 12/02/18) Subjective she was in step down unite , on BIPAP due to respiratory distress and possible aspiration , has bloody suctioning from her mouth , awake and responsive , trying to take off the BIPAP mask , congested , has low grade fever no chills today , no diarrhea. Objective Vital Signs Last 24 Hour Vital Signs Date Time Temp Pulse Resp B/P (MAP) Pulse Ox O2 Delivery O2 Flow Rate FiO2 07/31/19 09:30 92 30 85 Full Face 100 07/31/19 08:00 86 Bi-Pap 100 07/31/19 07:59 95 25 85 Bi-Pap 90 94 24 85 07/31/19 07:57 94 31 85 Full Face 100 07/31/19 05:06 95 17 90 Full Face 100 07/31/19 04:00 99.0 87 21 142/82 (102) 88 87 07/31/19 04:00 85 07/31/19 03:33 96 07/31/19 03:01 99 17 85 Full Face 100 07/31/19 00:59 98 23 87 Full Face 100 100 23 97 Bi-Pap 100 07/31/19 00:00 99.2 102 25 150/78 (102) 88 102 07/31/19 00:00 85 07/30/19 23:25 103 07/30/19 22:55 99 17 93 Full Face 100 07/30/19 21:30 100 32 92 Facial 100 07/30/19 21:00 Bi-pap 07/30/19 20:03 92 Bi-Pap 100 07/30/19 20:00 85 07/30/19 20:00 99.1 98 32 132/73 (92) 89 07/30/19 20:00 94 07/30/19 19:58 88 30 92 Facial 100 89 27 98 Bi-Pap 100 07/30/19 17:19 86 27 100 Facial 100 Bi-Pap 100 07/30/19 16:00 85 07/30/19 16:00 98.4 99 25 136/81 (99) 95 07/30/19 15:18 90 07/30/19 15:14 90 26 100 Facial 100 Bi-Pap 100 07/30/19 12:44 88 27 100 Facial 100 87 27 100 Bi-Pap 100 07/30/19 12:00 98.6 95 21 132/77 (95) 94 07/30/19 12:00 85 07/30/19 11:32 95 07/30/19 11:11 90 26 100 Facial 100 Bi-Pap 100 Height (Feet): 4 Height (Inches): 10.00 Weight (Pounds): 161 General Appearance: WD/WN, no acute distress HEENT: normocephalic, atraumatic, anicteric, PERRL, supple, no JVD Respiratory/Chest: chest wall non-tender, no respiratory distress, no accessory muscle use, decreased breath sounds, crackles/rales Cardiovascular: normal peripheral pulses, normal rate, regular rhythm, no gallop/murmur, no JVD Abdomen: normal bowel sounds, soft, non tender, no organomegaly, non distended , no mass, no scars Extremities: no cyanosis, no clubbing Skin: no rash, no lesions 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, alert, responsive Lymphatic: no neck adenopathy, no groin adenopathy Musculoskeletal: normal muscle bulk, no effusion Microbiology Date/Time Source Procedure Growth Status 07/29/19 18:25 Blood Blood Culture - Preliminary NO GROWTH AFTER 24 HOURS Resulted 07/29/19 17:55 Blood Blood Culture - Preliminary NO GROWTH AFTER 24 HOURS Resulted 07/28/19 15:28 Blood Blood Culture - Preliminary NO GROWTH AFTER 48 HOURS Resulted 07/28/19 15:18 Blood Blood Culture - Preliminary Strep Species, Alpha Hemolytic Resulted Laboratory Tests Test 07/31/19 02:20 07/31/19 04:30 07/31/19 08:30 Stool Occult Blood Pending White Blood Count 10.8 K/UL (4.8-10.8) Red Blood Count 4.44 M/UL (4.20-5.40) Hemoglobin 9.3 G/DL (12.0-16.0) L Hematocrit 31.4 % (37.0-47.0) L Mean Corpuscular Volume 71 FL (80-99) L Mean Corpuscular Hemoglobin 20.9 PG (27.0-31.0) L Mean Corpuscular Hemoglobin Concent 29.6 G/DL (32.0-36.0) L Red Cell Distribution Width 18.2 % (11.6-14.8) H Platelet Count 249 K/UL (150-450) Mean Platelet Volume 5.5 FL (6.5-10.1) L Neutrophils (%) (Auto) 78.6 % (45.0-75.0) H Lymphocytes (%) (Auto) 11.1 % (20.0-45.0) L Monocytes (%) (Auto) 6.9 % (1.0-10.0) Eosinophils (%) (Auto) 2.9 % (0.0-3.0) Basophils (%) (Auto) 0.5 % (0.0-2.0) Sodium Level 145 MMOL/L (136-145) Potassium Level 2.5 MMOL/L (3.5-5.1) *L Chloride Level 106 MMOL/L (98-107) Carbon Dioxide Level 31 MMOL/L (21-32) Anion Gap 8 mmol/L (5-15) Blood Urea Nitrogen 4 mg/dL (7-18) L Creatinine 0.4 MG/DL (0.55-1.30) L Estimat Glomerular Filtration Rate > 60 mL/min (>60) Glucose Level 102 MG/DL (74-106) Calcium Level 8.0 MG/DL (8.5-10.1) L Iron Level 10 ug/dL (50-175) L Total Iron Binding Capacity 202 ug/dL (250-450) L Percent Iron Saturation 5 % (15-50) L Unsaturated Iron Binding 192 ug/dL (112-346) Total Bilirubin 0.4 MG/DL (0.2-1.0) Aspartate Amino Transf (AST/SGOT) 40 U/L (15-37) H Alanine Aminotransferase (ALT/SGPT) 46 U/L (12-78) Alkaline Phosphatase 91 U/L (46-116) Total Protein 6.8 G/DL (6.4-8.2) Albumin 2.1 G/DL (3.4-5.0) L Globulin 4.7 g/dL Albumin/Globulin Ratio 0.4 (1.0-2.7) L Arterial Blood pH 7.402 (7.350-7.450) Arterial Blood Partial Pressure CO2 51.6 mmHg (35.0-45.0) H Arterial Blood Partial Pressure O2 < 45.3 mmHg (75.0-100.0) Arterial Blood HCO3 31.4 mmol/L (22.0-26.0) H Arterial Blood Oxygen Saturation 75.6 % (95-100) *L Arterial Blood Base Excess 5.6 (-2-2) H Gerard Test Positive Current Medications Medications (Trade) Dose Ordered Sig/Sandeep Route PRN Reason Start Time Stop Time Status Last Admin Dose Admin Acetaminophen (Tylenol) 650 mg Q6H PRN GT Mild Pain/Temp > 100.5 07/28/19 12:45 08/11/19 12:43 07/31/19 01:13 Acetylcysteine (Mucomyst) 200 mg Q4HRT HHN 07/31/19 11:00 08/16/19 18:59 Albuterol/ Ipratropium (Albuterol/ Ipratropium) 3 ml Q4H PRN HHN Shortness of Breath 07/28/19 08:00 08/01/19 19:59 07/29/19 04:34 Albuterol/ Ipratropium (Albuterol/ Ipratropium) 3 ml Q4HRT HHN 07/31/19 11:00 08/02/19 00:59 Apixaban (Eliquis) 5 mg BID GT 07/28/19 09:00 08/24/19 18:10 07/31/19 09:22 Chlorhexidine Gluconate (Debora-Hex 2%) 1 applic DAILY@2000 TOPIC 07/28/19 20:00 08/13/19 19:59 07/30/19 20:34 Dextrose/Sodium Chloride 1,000 ml @ 100 mls/hr Q10H IV 07/28/19 08:00 08/27/19 06:14 07/31/19 05:00 Famotidine (Pepcid) 20 mg BID GT 07/28/19 09:00 08/18/19 17:59 07/31/19 09:22 Linezolid 300 ml @ 300 mls/hr Q12HR@0500,1700 IVPB 07/28/19 17:00 08/04/19 16:59 07/31/19 05:00 Meropenem 1 gm/ Sodium Chloride 55 ml @ 110 mls/hr Q8H IVPB 07/28/19 18:00 08/02/19 17:59 07/31/19 09:23 Potassium Chloride 100 ml @ 100 mls/hr Q1HR IVPB 07/31/19 08:00 07/31/19 11:59 07/31/19 09:05 Sennosides (Senokot) 8.6 mg BID GT 07/28/19 09:00 08/11/19 08:59 07/31/19 09:22 Gigi Sanabria M.D. Jul 31, 2019 10:58
[2019-07-31] MEDS ORDERED: Acetylcysteine 20% Soln 4ml HHN SCH (11:00)
[2019-07-31] MEDS ORDERED: Albuterol/Ipratropium 3ml neb HHN SCH (11:00)
--- NOTE | 2019-07-31 11:15 | NUR ---
RADIOLOGY DEPT., CHEST X-RAY DONE.-P.DYE
--- NOTE | 2019-07-31 11:25 | GI Progress Note ---
Assessment/Plan Problems: (1) Paraplegia ICD Codes: G82.20 - Paraplegia, unspecified SNOMED: 34872078 (2) At risk for aspiration pneumonia ICD Codes: Z91.89 - Other specified personal risk factors, not elsewhere classified SNOMED: 192357909 Status: unchanged Status Narrative Discussed with Dr. Davis. Assessment/Plan The patient is a 49-year-old female with multiple medical problems as dictated above now with dysphagia, aspiration pneumonia currently on BiPAP. recommend for GT placement given hx of recurrent aspiration pneumonias family refusing GT, wants transfer [facility] patient to ICU for desaturation cont NGTs PEG if family agrees pulmonary support will follow venofer PEG if family agrees The patient was seen and examined at bedside and all new and available data was reviewed in the patients chart. I agree with the above findings, impression and plan. (Patient seen earlier today. Signature stamp does not reflect patient encounter time.). - Tim Davis MD Subjective Subjective SOB Objective Last 24 Hour Vital Signs Date Time Temp Pulse Resp B/P (MAP) Pulse Ox O2 Delivery O2 Flow Rate FiO2 07/31/19 09:30 92 30 85 Full Face 100 07/31/19 08:00 98.5 96 29 138/64 (88) 88 07/31/19 08:00 86 Bi-Pap 100 07/31/19 08:00 100 07/31/19 07:59 95 25 85 Bi-Pap 90 94 24 85 07/31/19 07:57 94 31 85 Full Face 100 07/31/19 05:06 95 17 90 Full Face 100 07/31/19 04:00 99.0 87 21 142/82 (102) 88 87 07/31/19 04:00 85 07/31/19 03:33 96 07/31/19 03:01 99 17 85 Full Face 100 07/31/19 00:59 98 23 87 Full Face 100 100 23 97 Bi-Pap 100 07/31/19 00:00 99.2 102 25 150/78 (102) 88 102 07/31/19 00:00 85 07/30/19 23:25 103 07/30/19 22:55 99 17 93 Full Face 100 07/30/19 21:30 100 32 92 Facial 100 07/30/19 21:00 Bi-pap 07/30/19 20:03 92 Bi-Pap 100 07/30/19 20:00 85 07/30/19 20:00 99.1 98 32 132/73 (92) 89 07/30/19 20:00 94 07/30/19 19:58 88 30 92 Facial 100 89 27 98 Bi-Pap 100 07/30/19 17:19 86 27 100 Facial 100 Bi-Pap 100 07/30/19 16:00 85 07/30/19 16:00 98.4 99 25 136/81 (99) 95 07/30/19 15:18 90 07/30/19 15:14 90 26 100 Facial 100 Bi-Pap 100 07/30/19 12:44 88 27 100 Facial 100 87 27 100 Bi-Pap 100 07/30/19 12:00 98.6 95 21 132/77 (95) 94 07/30/19 12:00 85 07/30/19 11:32 95 Intake and Output 07/30/19 07/31/19 19:00 07:00 Intake Total 2220 ml 1358 ml Output Total 1225 ml 1000 ml Balance 995 ml 358 ml Intake Free Water 30 ml IV Total 2210 ml 1298 ml Tube Feeding 10 ml 30 ml Output Urine Total 1225 ml 1000 ml # Bowel Movements 1 Laboratory Tests Test 07/31/19 02:20 07/31/19 04:30 07/31/19 08:30 Stool Occult Blood Pending White Blood Count 10.8 K/UL (4.8-10.8) Red Blood Count 4.44 M/UL (4.20-5.40) Hemoglobin 9.3 G/DL (12.0-16.0) L Hematocrit 31.4 % (37.0-47.0) L Mean Corpuscular Volume 71 FL (80-99) L Mean Corpuscular Hemoglobin 20.9 PG (27.0-31.0) L Mean Corpuscular Hemoglobin Concent 29.6 G/DL (32.0-36.0) L Red Cell Distribution Width 18.2 % (11.6-14.8) H Platelet Count 249 K/UL (150-450) Mean Platelet Volume 5.5 FL (6.5-10.1) L Neutrophils (%) (Auto) 78.6 % (45.0-75.0) H Lymphocytes (%) (Auto) 11.1 % (20.0-45.0) L Monocytes (%) (Auto) 6.9 % (1.0-10.0) Eosinophils (%) (Auto) 2.9 % (0.0-3.0) Basophils (%) (Auto) 0.5 % (0.0-2.0) Sodium Level 145 MMOL/L (136-145) Potassium Level 2.5 MMOL/L (3.5-5.1) *L Chloride Level 106 MMOL/L (98-107) Carbon Dioxide Level 31 MMOL/L (21-32) Anion Gap 8 mmol/L (5-15) Blood Urea Nitrogen 4 mg/dL (7-18) L Creatinine 0.4 MG/DL (0.55-1.30) L Estimat Glomerular Filtration Rate > 60 mL/min (>60) Glucose Level 102 MG/DL (74-106) Calcium Level 8.0 MG/DL (8.5-10.1) L Iron Level 10 ug/dL (50-175) L Total Iron Binding Capacity 202 ug/dL (250-450) L Percent Iron Saturation 5 % (15-50) L Unsaturated Iron Binding 192 ug/dL (112-346) Total Bilirubin 0.4 MG/DL (0.2-1.0) Aspartate Amino Transf (AST/SGOT) 40 U/L (15-37) H Alanine Aminotransferase (ALT/SGPT) 46 U/L (12-78) Alkaline Phosphatase 91 U/L (46-116) Total Protein 6.8 G/DL (6.4-8.2) Albumin 2.1 G/DL (3.4-5.0) L Globulin 4.7 g/dL Albumin/Globulin Ratio 0.4 (1.0-2.7) L Arterial Blood pH 7.402 (7.350-7.450) Arterial Blood Partial Pressure CO2 51.6 mmHg (35.0-45.0) H Arterial Blood Partial Pressure O2 < 45.3 mmHg (75.0-100.0) Arterial Blood HCO3 31.4 mmol/L (22.0-26.0) H Arterial Blood Oxygen Saturation 75.6 % (95-100) *L Arterial Blood Base Excess 5.6 (-2-2) H Gerard Test Positive Height (Feet): 4 Height (Inches): 10.00 Weight (Pounds): 161 General Appearance: WD/WN, no apparent distress, alert Cardiovascular: normal rate Respiratory/Chest: normal breath sounds, no respiratory distress Abdominal Exam: normal bowel sounds, non tender, soft Extremities: normal range of motion, non-tender Edu Coates NP Jul 31, 2019 11:25
--- NOTE | 2019-07-31 11:52 | NUR ---
RD ASSESSMENT & RECOMMENDATIONS SEE CARE ACTIVITY FOR COMPLETE ASSESSMENT DAILY ESTIMATED NEEDS: Needs based on wound, critical care/ 47.6kg abw 25-30 kcals/kg 4835-9345 total kcals 1.25-2 g protein/kg 60-95 g total protein 25-30 mL/kg 6864-9302 total fluid mLs NUTRITION DIAGNOSIS: * Increased kcal/pro needs r/t wound healing as evidenced by h/o spina bifida, adm w/ full thickness wound @ sacrum and resolving pressure injurty @ R-ischium. * Swallowing difficulty R/T respiratory status as evidenced by orally intubated, now on bipap, on NGT feeding. CURRENT TF:Vital 1.2 @ 45ml/hr x 24 hrs ENTERAL NUTRITION RECOMMENDATIONS: Glucerna 1.2 @ 45ml/hr x24 hrs to provide 1080ml, 1296kcal, 65g prot, 869ml free water - Rec TF change to Glucerna 1.2. - Start @25ml/hr for 6 hrs, advance as tolerated 10ml/hr q4-6 hrs to goal. - HOB over 30 degrees/ water flush of 140ml q 6hrs - TF at goal meets 100% est kcal and pro needs: ADDITIONAL RECOMMENDATIONS: 1) Wound care: add GREGG in 4oz H2O BID via NGT Add VIT C 500mg daily 2) Maintain calibrated bed scale wts 3) NISS for BG control on TF 4) F/up w/ FIRST COOK eval for oral diet -> REC CCHO LOW FIRST COOK recs for NGT feeds at this time 5) On Bipap, monitor ability to feed-> pending txr to ICU (07/31)
--- NOTE | 2019-07-31 12:10 | Diagnostic Imaging Report ---
Indication: Dyspnea Technique: One view of the chest Comparison: 07/27/2019 Findings: There is complete opacification of the right hemithorax. Rightward mediastinal shift and evidence of endobronchial conclusions of the upper and lower lobe bronchi suggests that this is due to atelectasis. There is a nasogastric tube in place. The left lung and pleural space remain clear. There is thoracic scoliotic deformity. Left arm PICC, ventriculoperitoneal shunt tubing, spinal fusion rods remain Impression: Complete opacification right hemithorax, probably due to complete atelectasis secondary to endobronchial obstruction Other findings as noted Critical value findings phoned to Dr. Bonilla at the time of dictation
--- NOTE | 2019-07-31 12:15 | NUR ---
NURSE NOTES: Patient transferred to ICU to room 246-H for intubation after Dr. Bonilla assessed patient this morning, Patient VS is HR at 94 in sinus rhythm with BP of 131/76. saturations are 88-94% with BIpap at 20/7 with Fio2 of 100%. patient remains awake but is restless, she is able to open eyes and track staff. no pain noted using the FLACC scale.
--- NOTE | 2019-07-31 12:16 | NUR ---
Dr. Root called to have Dr. Irene armas him [phone],left message in answering service,notified RN Perfecto Diallo,I left message also with Dr. Sanabria who made rounds today
--- NOTE | 2019-07-31 12:42 | NUR ---
NURSE NOTES: Dr. Bonilla called to inform of chest X-ray result taken this morning, left message on voice mail. Awaiting call back for orders.
[2019-07-31] MEDS ORDERED: Albuterol/Ipratropium 3ml neb HHN PRN (13:00)
--- NOTE | 2019-07-31 13:25 | NUR ---
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 98.5 HR 95 RR 28 B/P 145/86 BIPAP 20/7 FIO2 100% K 2.5 AST 40 PH 7.40 PCO2 51.6 PO2 45.3 HCO3 31.4 O2 SAT 75.6 CXR= COMPLETE OPACIFICATION RIGHT HEMOTHORAX IS: IRON IV MEROPENEM IV ZYVOX IV IVF D5NS@ 100ML/HR ALB HHN ICU STATUS
--- NOTE | 2019-07-31 13:39 | NUR ---
NURSE NOTES: Called Dr. Bonilla office to inform patient has been transferred to ICU awaiting for ER doctor for intubation, Dr. Bonilla informed he would no be on the case and will have to call Dr. Pryor to call ER doctor for intubation. Dr. Pryor informed to the change of care by physician and awaiting for return call to intubate patient, RTBeto made aware we are waiting for ER doctor to intubate patient.
[2019-07-31] MEDS ORDERED: LORazepam Inj 2mg/ml 1ml IV PRN (14:00)
[2019-07-31] MEDS ORDERED: Morphine Sulfate 4mg/ml Inj (IV USE ONLY) IVP PRN (14:00)
--- NOTE | 2019-07-31 14:37 | NUR ---
NURSE NOTES: Patient intubated by ER physician using ET-tube 7.5 at 26cm on first attempt, patient has thick pink-tannish secretions upon intubation. patient saturations are between 94-98% with RR of 16-20. Awaiting fro Chest X-ray to confirm placement,
--- NOTE | 2019-07-31 16:19 | Emergency Room Report ---
Physical Exam Vital Signs Date Time Temp Pulse Resp B/P (MAP) Pulse Ox O2 Delivery O2 Flow Rate FiO2 07/27/19 07:09 85 18 100 Bi-Pap 40 83 18 96 07/27/19 08:00 97.7 129/75 (93) Medical Decision Making Diagnostic Impression: Primary Impression: HCAP (healthcare-associated pneumonia) Additional Impressions: Respiratory failure with hypoxia Qualified Codes: J96.21 - Acute and chronic respiratory failure with hypoxia UTI (urinary tract infection) Qualified Codes: N30.00 - Acute cystitis without hematuria Spina bifida Qualified Codes: Q05.4 - Unspecified spina bifida with hydrocephalus ER Course Called to the ICU for possible intubation. This is a patient that was admitted for pneumonia with worsening blood gas and decreasing pulse ox. Patient was on BiPAP and in moderate respiratory distress with a pulse ox in the 80s. Intubated with a 8.0 endotracheal tube using glide scope. Confirmed with x-ray , no complications. Tolerated procedure well. Remainder of course per ICU team. Chest X-Ray Diagnostic Results Chest X-Ray Diagnostic Results : Chest X-Ray Ordered: Yes # of Views/Limited/Complete: 1 View Indication: Other - Intubation Interpretation: other - Chest tube in appropriate position. Left-sided opacification Impression: Other - Chest tube satisfactory position Electronically Signed by: Electronically signed by Dr. Alejo Godwin Last Vital Signs Date Time Temp Pulse Resp B/P (MAP) Pulse Ox O2 Delivery O2 Flow Rate FiO2 07/31/19 15:00 92 20 100 Mechanical Ventilator 100 85 20 98 07/31/19 15:00 93/38 (56) 07/31/19 08:00 98.5 Disposition: ADMITTED INPATIENT Condition: Serious Referrals: NON PHYSICIAN (PCP) Procedures Intubation Intubation : Consent: Emergent Time of Intubation: 13:30 Intubation Method: orotracheal Tube Size (cm): 8.0 Medications: Etomidate, Rocuronium Breath Sounds after Intubation: equal Intubation Complications: no complications Post Intubation Xray: Yes Progress/Xray Impression: Endotracheal tube in satisfactory position Attempts: One Patient Tolerated: Well Complications: None Alejo Godwin MD Jul 31, 2019 16:19
--- NOTE | 2019-07-31 16:27 | Diagnostic Imaging Report ---
Indication: Post intubation Technique: One view of the chest Comparison: 07/31/2019 Findings: Interim endotracheal intubation, endotracheal tube tip in the right mainstem bronchus. The right lung has reexpanded in the interim. However, there is now complete opacification of the left hemithorax. The aerated right lung demonstrates interstitial edema. Nasogastric tube, left arm PICC, right-sided ventriculoperitoneal shunt tubing, spinal fusion hardware again demonstrated. Impression: Malpositioned endotracheal tube, tip of the right mainstem bronchus. This critical value findings phoned to ICU charge nurse Mary Ann at the time of interpretation Interim reexpansion of the right lung. However, the left hemithorax is opacified, indicating complete atelectasis of the left lung Interstitial edema seen within the re-aerated right lung Other findings as noted
--- NOTE | 2019-07-31 16:41 | NUR ---
RESPIRATORY NOTE:Per Dr. Root orders to pull ett 3 cm due to left lung collapse. RN and Charge nurse aware of pts ett pulled back by RT.
--- NOTE | 2019-07-31 17:50 | NUR ---
NURSE NOTES: Dr. Bonilla aware of adjustment to ET-tube after chest Xray confirmation, ET-tube pulled back to 24cm. Order for post intubation ABG obtained from Dr. Bonilla,
--- NOTE | 2019-07-31 18:56 | Diagnostic Imaging Report ---
Indication: Status post endotracheal tube repositioning Technique: One view of the chest Comparison: 07/31/2022 at 1447 Findings: Endotracheal tube appears minimally retracted, tip still projects at the level of the right mainstem bronchus orifice. Despite this, there is improved aeration of the left lung. Extensive parenchymal opacities in the right lung appear worse. Stable satisfactory position of nasogastric tube, left arm PICC, ventriculoperitoneal shunt tubing Impression: Only minimally improved position of endotracheal tube, its tip still malpositioned in the orifice of the right mainstem bronchus Improved aeration of the left lung Increased parenchymal disease in the right lung This agrees with the preliminary interpretation provided overnight by [facility]iology service.
--- NOTE | 2019-07-31 19:30 | Internal Med Progress Note ---
Subjective Date of Service: Jul 31, 2019 Physician Name Niraj Teixeira Attending Physician Wil Masters MD Current Medications Medications (Trade) Dose Ordered Sig/Sandeep Route PRN Reason Start Time Stop Time Status Last Admin Dose Admin Acetaminophen (Tylenol) 650 mg Q6H PRN GT Mild Pain/Temp > 100.5 07/31/19 12:45 08/11/19 12:43 Acetylcysteine (Mucomyst) 200 mg Q4HRT HHN 07/31/19 15:00 08/16/19 18:59 07/31/19 15:05 Albuterol/ Ipratropium (Albuterol/ Ipratropium) 3 ml Q4H PRN HHN Shortness of Breath 07/31/19 13:00 08/01/19 12:59 Albuterol/ Ipratropium (Albuterol/ Ipratropium) 3 ml Q4HRT HHN 07/31/19 15:00 08/02/19 00:59 07/31/19 15:05 Apixaban (Eliquis) 5 mg BID GT 07/31/19 18:00 08/24/19 18:10 07/31/19 18:25 Chlorhexidine Gluconate (Debora-Hex 2%) 1 applic DAILY@2000 TOPIC 07/31/19 20:00 08/13/19 19:59 Dextrose/Sodium Chloride 1,000 ml @ 100 mls/hr Q10H IV 07/31/19 12:45 08/27/19 06:14 07/31/19 15:00 Famotidine (Pepcid) 20 mg BID GT 07/31/19 18:00 08/18/19 17:59 07/31/19 18:25 Iron Sucrose 100 mg/Sodium Chloride 60 ml @ 240 mls/hr BEDTIME IV 07/31/19 21:00 08/04/19 21:14 Linezolid 300 ml @ 300 mls/hr Q12HR@0500,1700 IVPB 07/31/19 17:00 08/04/19 16:59 07/31/19 17:45 Lorazepam (Ativan 2mg/ml 1ml) 2 mg Q4H PRN IV For Anxiety 07/31/19 14:00 08/07/19 13:59 Meropenem 1 gm/ Sodium Chloride 55 ml @ 110 mls/hr Q8H IVPB 07/31/19 18:00 08/02/19 17:59 07/31/19 17:45 Morphine Sulfate (Morphine Sulfate) 4 mg Q4H PRN IVP Severe Pain (Pain Scale 7-10) 07/31/19 14:00 08/07/19 13:59 Pantoprazole (Protonix) 40 mg DAILY IV 08/01/19 09:00 08/31/19 08:59 Sennosides (Senokot) 8.6 mg BID GT 07/31/19 18:00 08/11/19 08:59 07/31/19 18:25 Allergies: Coded Allergies: PENICILLIN G (Verified Allergy, Unknown, 12/02/18) Tolerates cabapenem, cephalosporin PENICILLINS (Unverified Allergy, Unknown, 12/02/18) ROS Limited/Unobtainable: Yes Subjective 49 YO F with pneumonia and respiratory failure. Intubated and sedated. Cover for Int Conor-DR Masters. ICU Objective Last Vital Signs Date Time Temp Pulse Resp B/P (MAP) Pulse Ox O2 Delivery O2 Flow Rate FiO2 07/31/19 18:00 108 18 99/50 (66) 91 07/31/19 16:39 100 07/31/19 16:00 Mechanical Ventilator Mechanical Ventilator 07/31/19 16:00 98.9 07/27/19 04:00 4.0 General Appearance: WD/WN, moderate distress EENT: PERRL/EOMI, normal ENT inspection Neck: non-tender, normal alignment, supple Cardiovascular: normal peripheral pulses, normal rate, regular rhythm, no gallop/murmur, no JVD Respiratory/Chest: crackles/rales, rhonchi - bilaterally, expiratory wheezing Abdomen: normal bowel sounds, non tender, soft, no organomegaly, no mass Skin: normal pigmentation, warm/dry Laboratory Tests Test 07/31/19 02:20 07/31/19 04:30 07/31/19 08:30 07/31/19 13:41 Stool Occult Blood Negative (NEGATIVE) White Blood Count 10.8 K/UL (4.8-10.8) Red Blood Count 4.44 M/UL (4.20-5.40) Hemoglobin 9.3 G/DL (12.0-16.0) L Hematocrit 31.4 % (37.0-47.0) L Mean Corpuscular Volume 71 FL (80-99) L Mean Corpuscular Hemoglobin 20.9 PG (27.0-31.0) L Mean Corpuscular Hemoglobin Concent 29.6 G/DL (32.0-36.0) L Red Cell Distribution Width 18.2 % (11.6-14.8) H Platelet Count 249 K/UL (150-450) Mean Platelet Volume 5.5 FL (6.5-10.1) L Neutrophils (%) (Auto) 78.6 % (45.0-75.0) H Lymphocytes (%) (Auto) 11.1 % (20.0-45.0) L Monocytes (%) (Auto) 6.9 % (1.0-10.0) Eosinophils (%) (Auto) 2.9 % (0.0-3.0) Basophils (%) (Auto) 0.5 % (0.0-2.0) Sodium Level 145 MMOL/L (136-145) Potassium Level 2.5 MMOL/L (3.5-5.1) *L Chloride Level 106 MMOL/L (98-107) Carbon Dioxide Level 31 MMOL/L (21-32) Anion Gap 8 mmol/L (5-15) Blood Urea Nitrogen 4 mg/dL (7-18) L Creatinine 0.4 MG/DL (0.55-1.30) L Estimat Glomerular Filtration Rate > 60 mL/min (>60) Glucose Level 102 MG/DL (74-106) Calcium Level 8.0 MG/DL (8.5-10.1) L Iron Level 10 ug/dL (50-175) L Total Iron Binding Capacity 202 ug/dL (250-450) L Percent Iron Saturation 5 % (15-50) L Unsaturated Iron Binding 192 ug/dL (112-346) Total Bilirubin 0.4 MG/DL (0.2-1.0) Aspartate Amino Transf (AST/SGOT) 40 U/L (15-37) H Alanine Aminotransferase (ALT/SGPT) 46 U/L (12-78) Alkaline Phosphatase 91 U/L (46-116) Total Protein 6.8 G/DL (6.4-8.2) Albumin 2.1 G/DL (3.4-5.0) L Globulin 4.7 g/dL Albumin/Globulin Ratio 0.4 (1.0-2.7) L Arterial Blood pH 7.402 (7.350-7.450) 7.418 (7.350-7.450) Arterial Blood Partial Pressure CO2 51.6 mmHg (35.0-45.0) H 51.3 mmHg (35.0-45.0) H Arterial Blood Partial Pressure O2 < 45.3 mmHg (75.0-100.0) 46.6 mmHg (75.0-100.0) Arterial Blood HCO3 31.4 mmol/L (22.0-26.0) H 32.4 mmol/L (22.0-26.0) H Arterial Blood Oxygen Saturation 75.6 % (95-100) *L 80.6 % (95-100) *L Arterial Blood Base Excess 5.6 (-2-2) H 6.8 (-2-2) H Gerard Test Positive Positive Test 07/31/19 17:33 Arterial Blood pH 7.473 (7.350-7.450) Arterial Blood Partial Pressure CO2 36.7 mmHg (35.0-45.0) Arterial Blood Partial Pressure O2 91.2 mmHg (75.0-100.0) Arterial Blood HCO3 26.3 mmol/L (22.0-26.0) H Arterial Blood Oxygen Saturation 96.6 % (95-100) Arterial Blood Base Excess 2.7 (-2-2) H Gerard Test Positive Microbiology Date/Time Source Procedure Growth Status 07/29/19 18:25 Blood Blood Culture - Preliminary NO GROWTH AFTER 24 HOURS Resulted 07/29/19 17:55 Blood Blood Culture - Preliminary NO GROWTH AFTER 24 HOURS Resulted Intake and Output 07/30/19 07/31/19 19:00 07:00 Intake Total 2220 ml 1358 ml Output Total 1225 ml 1000 ml Balance 995 ml 358 ml Intake Free Water 30 ml IV Total 2210 ml 1298 ml Tube Feeding 10 ml 30 ml Output Urine Total 1225 ml 1000 ml # Bowel Movements 1 Assessment/Plan Problem List: (1) Respiratory failure with hypoxia Assessment & Plan: Mechanical vent per pulmonary=Dr Bonilla (2) Pneumonia of both lower lobes Assessment & Plan: See ID note. Continue meropenem and zyvox (3) UTI (urinary tract infection) Assessment & Plan: Pseudamonas, ESBL E. Coli, and vanco resistant enterococcus. See ID=Dr Sanabria. Continue meropenem and zyvox (4) Sepsis (5) Paraplegia (6) Spina bifida Status: not improved Niraj Teixeira MD Jul 31, 2019 19:30
--- NOTE | 2019-07-31 19:40 | NUR ---
HAND-OFF: Report given to EMMA Velázquez. Dr. fermin ordered to have TV changed to 450 and order a Chest in the morning on 08/01/19 at 0400.
--- NOTE | 2019-07-31 20:20 | NUR ---
NURSE NOTES: Received patient from EMMA Velázquez. patient is observed resting in bed, eyes open, AO X2; no s/sx of pain noted at this time. patient is intubated with current settings: ETT: 7.5 marked at 24 cm, at midline of lip at this time; AC: 16, TV: 500, FiO2: 100%, PEEP: 5. saturating at 95%, no s/sx of respiratory distress noted at this time. NGT noted in left nares, placement confirmed via auscultation. Vital AF 1.2 currently running at 20 cc/hr. HOB elevated to 45 degrees, no residual noted. suprapubic catheter noted, draining christy urine to gravity. JASON PICC noted, patent and intact, with D5NS running at 100 cc/hr. dressing dry and intact. bed in lowest position and locked, siderails up X3, call light within reach. family at bedside. will continue to monitor.
[2019-07-31] MEDS: Dyna-Hex 2% Top Sol 2oz TOPIC SCH (20:34)
[2019-07-31] MEDS: Iron Sucrose 100 MG in NS 55 ML IV SCH (20:35)
[2019-07-31] MEDS ORDERED: Iron Sucrose 100 MG in NS 55 ML IV SCH (21:00)
--- NOTE | 2019-07-31 22:00 | NUR ---
NURSE NOTES: all due meds given. patient noted to have temp of 101.1. prescribed tylenol given and cooling measures applied. will continue to monitor.
[2019-07-31] MEDS: Acetaminophen 650mg/20.3ml GT PRN (22:23)
[2019-08-01] VITALS (24 sets, daily range): BP systolic 87–134; BP diastolic 42–73
--- NOTE | 2019-08-01 | NUR ---
NURSE NOTES: bilateral soft wrist restraints removed to perform passive ROM. skin assessed and is intact, peripheral pulses present. patient's temperature: 99.6. will continue to monitor. patient continues to saturate between 90-95%. will continue to monitor. Addendum: 08/01/19 at 0605 by MAGDI CHOE RN RN yady pt
--- NOTE | 2019-08-01 00:15 | NUR ---
NURSE NOTES: bilateral soft wrist restraints applied. pt continues to reach for ET tube. alternative measures were attempted, including reorientation to environment, talk therapy, and television. will continue to monitor and reassess restraint sites.
--- NOTE | 2019-08-01 02:00 | NUR ---
NURSE NOTES: NGT feeding increased to 30 cc/hr. HOB elevated to 45 degrees, no residual noted. will continue to monitor.
[2019-08-01] MEDS: Meropenem 1 GM in NS 55 ML IVPB SCH ×3 (02:30→18:08)
[2019-08-01] MEDS: Albuterol/Ipratropium 3ml neb HHN SCH ×6 (03:32→23:55)
[2019-08-01] MEDS: Acetylcysteine 20% Soln 4ml HHN SCH ×6 (03:32→23:56)
--- NOTE | 2019-08-01 04:30 | NUR ---
NURSE NOTES: pt's temp noted to be 98.4. CHG bath given. labs drawn from PICC line. pt tolerated well. will continue to monitor.
[2019-08-01 05:31] LABS: BASOPHILS % (AUTO) 0.7 % (0.0-2.0); EOSINOPHILS % (AUTO) 2.7 % (0.0-3.0); HEMATOCRIT 29.6 % (37.0-47.0); LYMPHOCYTES % (AUTO) 16.7 % (20.0-45.0); MEAN CORPUSCULAR VOLUME 70 FL (80-99); NEUTROPHILS % (AUTO) 74.9 % (45.0-75.0); PLATELET COUNT 215 K/UL (150-450); RED BLOOD COUNT 4.23 M/UL (4.20-5.40); RED CELL DISTRIBUTION WIDTH 17.7 % (11.6-14.8); WHITE BLOOD COUNT 13.4 K/UL (4.8-10.8)
[2019-08-01 05:46] LABS: ALANINE AMINOTRANSFERASE 31 U/L (12-78); ALBUMIN 1.9 G/DL (3.4-5.0); ALBUMIN/GLOBULIN RATIO 0.4 (1.0-2.7); ALKALINE PHOSPHATASE 80 U/L (46-116); ANION GAP 9 mmol/L (5-15); ASPARTATE AMINO TRANSFERASE 17 U/L (15-37); BILIRUBIN,TOTAL 0.3 MG/DL (0.2-1.0); BLOOD UREA NITROGEN 6 mg/dL (7-18); CALCIUM 7.6 MG/DL (8.5-10.1); CARBON DIOXIDE 28 MMOL/L (21-32); CHLORIDE 107 MMOL/L (98-107); CREATININE 0.4 MG/DL (0.55-1.30); PHOSPHORUS 2.3 MG/DL (2.5-4.9); SODIUM 144 MMOL/L (136-145)
[2019-08-01 06:24] LABS: POTASSIUM 2.7 MMOL/L (3.5-5.1)
--- NOTE | 2019-08-01 07:00 | NUR ---
NURSE NOTES: call Dr. Masters regarding patient's abnormal labs. gave telephone orders; will carry out.
--- NOTE | 2019-08-01 07:31 | NUR ---
RESPIRATORY NOTE: Received pt was intubated with ETT 7.5@23cm lips line, pt is on AC [id number]%FiO2-peep 5, saturates at 95%. Pt is awake, resting comfortably in bed, no SOB or resp distress noted at this time. Breathing TX duoneb and Mucomyst given and chest percussion given without any adverse reactions. Alarms are set and audible, vent is plugged into the red outlet, ambu bag is at bedside. Will continue to monitor pt.
--- NOTE | 2019-08-01 08:12 | NUR ---
HAND-OFF: Report given to EMMA Aguilera. endorsed plan of care to incoming RN.
--- NOTE | 2019-08-01 08:13 | NUR ---
NURSE NOTES: Received change of shift report from Lucero CARTER. Pt is awake, orally intubated, responds by waving hand and nodding head. ETT 7.5 at 24cm lipline with vent settings AC16, VT450, Peep 5.0, FIO2 100%, with O2Sat fluctuating from 92-96%. Bilateral inspiratory/expiratory coarse rhonchi/rales are noted on auscultation. Pt has moderate amount of thin white secretions. NSR on case monitor. IV fluid D5NS is infusing at 100ml/hour via left UA PICC. Pt has left nare NGT with feeding Vital AF 1.2 at 30ml/hour. Suprapubic catheter is in place, draining mildly cloudy/dark yellow urine. Skin is intact with old/healed sacral wound, covered with optifoam. Pt is on P200 pressure releasing mattress. Bed is locked, HOB at 30 degrees, three side rails up. Pt has bilateral soft wrist restraints to prevent self extubation as she is observed reaching to pull out ET tube. Will continue with plan of care.
[2019-08-01] MEDS: D5NS 1,000 ML IV SCH ×2 (09:33→18:08)
[2019-08-01] MEDS: Pantoprazole Inj IV SCH (09:33)
[2019-08-01] MEDS: Eliquis 5mg tablet GT SCH ×2 (09:34→18:08)
[2019-08-01] MEDS: Sennosides 8.6mg tab GT SCH ×2 (09:34→18:08)
--- NOTE | 2019-08-01 09:45 | NUR ---
DISCHARGE SWALLOW/SPEECH THERAPY SUMMARY: PATIENT SEEN FOR DYSPHAGIA, SEE SWALLOW EVALUATION. PATIENT HAS NONORAL FEEDINGS (NGT) AND ORAL CARE FOR NOW SINCE SHE WAS NOT READY TO HAVE A MODIFIED BARIUM SWALLOW STUDY (MBSS) TO FURTHER ASSESS SWALLOW, DETERMINE SILENT ASPIRATION RISK, AND ATTEMPT TRIAL TX TECHNIQUES. FAMILY HAS NOT BEEN RECEPTIVE TO PEG FOR THIS PATIENT. PATIENT NOW TRANSFERRED TO ICU. PLAN: D/C FROM [facility] PLEASE RECONSULT WHEN INDICATED FOR F/UP DYSPHAGIA MANAGEMENT, MBSS, AND TX.
[2019-08-01] MEDS ORDERED: Potassium Phosphate 30 MM in Sodium Chloride 550 ML IV ONE (10:00)
--- NOTE | 2019-08-01 10:00 | General Progress Note ---
Assessment/Plan Problem List: (1) Spina bifida ICD Codes: Q05.9 - Spina bifida, unspecified SNOMED: 48337841 Qualifiers: Qualified Codes: Q05.4 - Unspecified spina bifida with hydrocephalus (2) Respiratory failure with hypoxia ICD Codes: J96.91 - Respiratory failure, unspecified with hypoxia SNOMED: [id number] Qualifiers: Qualified Codes: J96.21 - Acute and chronic respiratory failure with hypoxia (3) Dysphagia ICD Codes: R13.10 - Dysphagia, unspecified SNOMED: 72166264, [id number] Status: not improved Assessment/Plan: NOW INTUBATED IN THE icu needs PEG will d/w the family NGTF for now Subjective ROS Limited/Unobtainable: No Allergies: Coded Allergies: PENICILLIN G (Verified Allergy, Unknown, 12/02/18) Tolerates cabapenem, cephalosporin PENICILLINS (Unverified Allergy, Unknown, 12/02/18) Objective Last 24 Hour Vital Signs Date Time Temp Pulse Resp B/P (MAP) Pulse Ox O2 Delivery O2 Flow Rate FiO2 08/01/19 08:30 90 16 100 08/01/19 07:31 97 16 100 Mechanical Ventilator 100 83 16 100 08/01/19 07:00 84 16 116/50 (72) 98 08/01/19 06:00 88 16 116/56 (76) 96 08/01/19 05:24 83 17 100 08/01/19 05:00 101 18 111/58 (75) 96 08/01/19 04:00 100 08/01/19 04:00 98.4 85 17 87/49 (62) 98 08/01/19 04:00 79 08/01/19 03:33 81 16 98 Mechanical Ventilator 100 85 18 100 08/01/19 03:00 85 16 88/44 (59) 94 08/01/19 02:00 88 16 88/48 (61) 94 08/01/19 01:20 94 19 100 08/01/19 01:00 83 16 90/52 (65) 95 08/01/19 00:00 99.6 82 16 87/42 (57) 96 08/01/19 00:00 100 08/01/19 00:00 91 08/01/19 00:00 Mechanical Ventilator Mechanical Ventilator 07/31/19 23:27 92 16 97 Mechanical Ventilator 100 93 16 100 07/31/19 23:00 90 16 88/47 (61) 97 07/31/19 22:53 99.6 07/31/19 22:00 101 18 109/54 (72) 92 07/31/19 21:14 103 18 100 07/31/19 21:00 109 20 108/57 (74) 93 07/31/19 21:00 Mechanical Ventilator Mechanical Ventilator 07/31/19 20:00 84 07/31/19 20:00 100 07/31/19 20:00 101.1 97 16 86/72 (77) 97 07/31/19 19:28 87 16 100 Mechanical Ventilator 100 89 16 100 07/31/19 18:00 108 18 99/50 (66) 91 07/31/19 17:00 92 17 91/45 (60) 98 07/31/19 16:39 91 16 100 07/31/19 16:00 100 07/31/19 16:00 Mechanical Ventilator Mechanical Ventilator 07/31/19 16:00 98.9 89 16 99/60 (73) 99 07/31/19 16:00 89 07/31/19 15:00 92 20 100 Mechanical Ventilator 100 85 20 98 07/31/19 15:00 87 20 93/38 (56) 97 07/31/19 14:00 92 17 118/45 (69) 99 07/31/19 14:00 100 07/31/19 14:00 8 16 100 07/31/19 13:00 95 28 145/86 (105) 89 07/31/19 12:00 111 07/31/19 12:00 100 07/31/19 11:32 90 25 84 Bi-Pap 100 89 27 82 07/31/19 11:30 92 27 84 Full Face 100 Intake and Output 07/31/19 08/01/19 19:00 07:00 Intake Total 1730 ml 1915 ml Output Total 1700 ml 435 ml Balance 30 ml 1480 ml Intake Free Water 100 ml IV Total 1610 ml 1515 ml Tube Feeding 120 ml 300 ml Output Urine Total 1700 ml 435 ml # Bowel Movements 2 1 Laboratory Tests 07/31/19 13:41: Arterial Blood pH 7.418, Arterial Blood Partial Pressure CO2 51.3H, Arterial Blood Partial Pressure O2 46.6*L, Arterial Blood HCO3 32.4H, Arterial Blood Oxygen Saturation 80.6*L, Arterial Blood Base Excess 6.8H, Gerard Test Positive 07/31/19 17:33: Arterial Blood pH 7.473H, Arterial Blood Partial Pressure CO2 36.7, Arterial Blood Partial Pressure O2 91.2, Arterial Blood HCO3 26.3H, Arterial Blood Oxygen Saturation 96.6, Arterial Blood Base Excess 2.7H, Gerard Test Positive 08/01/19 04:45: White Blood Count 13.4H, Red Blood Count 4.23, Hemoglobin 9.0L, Hematocrit 29.6L , Mean Corpuscular Volume 70L, Mean Corpuscular Hemoglobin 21.3L, Mean Corpuscular Hemoglobin Concent 30.4L, Red Cell Distribution Width 17.7H, Platelet Count 215, Mean Platelet Volume 6.1L, Neutrophils (%) (Auto) 74.9, Lymphocytes (%) (Auto) 16.7L, Monocytes (%) (Auto) 5.0, Eosinophils (%) (Auto) 2.7, Basophils (%) (Auto) 0.7, Sodium Level 144, Potassium Level 2.7*L, Chloride Level 107, Carbon Dioxide Level 28, Anion Gap 9, Blood Urea Nitrogen 6L , Creatinine 0.4L, Estimat Glomerular Filtration Rate > 60, Glucose Level 108H, Calcium Level 7.6L, Phosphorus Level 2.3L, Magnesium Level 1.4L, Total Bilirubin 0.3, Aspartate Amino Transf (AST/SGOT) 17, Alanine Aminotransferase ( ALT/SGPT) 31, Alkaline Phosphatase 80, Total Protein 6.4, Albumin 1.9L, Globulin 4.5, Albumin/Globulin Ratio 0.4L Height (Feet): 4 Height (Inches): 10.00 Weight (Pounds): 162 General Appearance: lethargic EENT: normal ENT inspection Neck: supple Cardiovascular: normal rate Respiratory/Chest: decreased breath sounds Abdomen: normal bowel sounds, non tender, soft Extremities: non-tender Tim Davis MD Aug 01, 2019 10:00
--- NOTE | 2019-08-01 10:00 | NUR ---
NURSE NOTES: Pt was seen by Dr Bonilla. Pt will be administered 40meq KCL, 4gm Mag, Khos 30mm with 40meq KCL per Dr Bonilla's and Dr Masters's orders. ABGs were drawn and results reported to Dr Bonilla. Per MD order, repeat ABG and chest xray tomorrow AM, maintain same vent settings. VS currently remain stable. Pt was suctioned, cleaned and repositioned.
--- NOTE | 2019-08-01 10:14 | NUR ---
RADIOLOGY DEPT., CHEST X-RAY DONE.-P.DYE
--- NOTE | 2019-08-01 10:53 | Pulmonolgy Critical Care Note ---
Critical Care - Asmt/Plan Assessment/Plan: (1) Pneumonia of both lower lobes Assessment & Plan: VDRF, intubated 07/12/19, S/P FOB 07/12/19; Reintubated (2) Catheter-associated urinary tract infection Assessment & Plan: PsA and proteus (3) Respiratory failure with hypoxia Assessment & Plan: Acute on chronic hypercapnic and hypoxemic RF 2/2 PNA VDRF as able Duplex neg, minimally elevated d-dimer, unlikely VTE and already on a NOAC (4) HCAP (healthcare-associated pneumonia) (5) Paraplegia (6) Sepsis (7) Suprapubic catheter (8) Restrictive lung disease due to kyphoscoliosis (9) Decubitus skin ulcer (10) Spina bifida Plan: * cont mechanical ventilatory support, wean as tolerated * Check ABG * Abx per ID * send tracheal aspirate * Good pulmonary hygiene: duonebs and mucomyst q4 * Replete electrolytes * given the recurrent nature of this patient's respiratory failure, if not able to get extubated quickly, may need tracheostomy * needs PEG tube * Unclear if will be able to transfer to [facility] as no bed available there Respiratory: ABG Cardiac: continue to monitor HR/BP Renal: F/U I&O Infectious Disease: continue antibiotics Gastrointestinal: continue feedings/current rate Neurologic: keep patient comfortable Time Spent (Minutes): other - 100 minutes critical care Discussed with: nurses Critical Care - Objective Last 24 Hour Vital Signs Date Time Temp Pulse Resp B/P (MAP) Pulse Ox O2 Delivery O2 Flow Rate FiO2 08/01/19 08:30 90 16 100 08/01/19 07:31 97 16 100 Mechanical Ventilator 100 83 16 100 08/01/19 07:00 84 16 116/50 (72) 98 08/01/19 06:00 88 16 116/56 (76) 96 08/01/19 05:24 83 17 100 08/01/19 05:00 101 18 111/58 (75) 96 08/01/19 04:00 100 08/01/19 04:00 98.4 85 17 87/49 (62) 98 08/01/19 04:00 79 08/01/19 03:33 81 16 98 Mechanical Ventilator 100 85 18 100 08/01/19 03:00 85 16 88/44 (59) 94 08/01/19 02:00 88 16 88/48 (61) 94 08/01/19 01:20 94 19 100 08/01/19 01:00 83 16 90/52 (65) 95 08/01/19 00:00 99.6 82 16 87/42 (57) 96 08/01/19 00:00 100 08/01/19 00:00 91 08/01/19 00:00 Mechanical Ventilator Mechanical Ventilator 07/31/19 23:27 92 16 97 Mechanical Ventilator 100 93 16 100 07/31/19 23:00 90 16 88/47 (61) 97 07/31/19 22:53 99.6 07/31/19 22:00 101 18 109/54 (72) 92 07/31/19 21:14 103 18 100 07/31/19 21:00 109 20 108/57 (74) 93 07/31/19 21:00 Mechanical Ventilator Mechanical Ventilator 07/31/19 20:00 84 07/31/19 20:00 100 07/31/19 20:00 101.1 97 16 86/72 (77) 97 07/31/19 19:28 87 16 100 Mechanical Ventilator 100 89 16 100 07/31/19 18:00 108 18 99/50 (66) 91 07/31/19 17:00 92 17 91/45 (60) 98 07/31/19 16:39 91 16 100 07/31/19 16:00 100 07/31/19 16:00 Mechanical Ventilator Mechanical Ventilator 07/31/19 16:00 98.9 89 16 99/60 (73) 99 07/31/19 16:00 89 07/31/19 15:00 92 20 100 Mechanical Ventilator 100 85 20 98 07/31/19 15:00 87 20 93/38 (56) 97 07/31/19 14:00 92 17 118/45 (69) 99 07/31/19 14:00 100 07/31/19 14:00 8 16 100 07/31/19 13:00 95 28 145/86 (105) 89 07/31/19 12:00 111 07/31/19 12:00 100 07/31/19 11:32 90 25 84 Bi-Pap 100 89 27 82 07/31/19 11:30 92 27 84 Full Face 100 Status: somnolent Condition: critical HEENT: normocephalic Lungs: rales Heart: HR/BP stable Abdomen: soft, non-tender Extremities: no C/C/E Micro: Microbiology Date/Time Source Procedure Growth Status 07/29/19 18:25 Blood Blood Culture - Preliminary NO GROWTH AFTER 48 HOURS Resulted 07/29/19 17:55 Blood Blood Culture - Preliminary NO GROWTH AFTER 48 HOURS Resulted Accucheck: 114 Critical Care - Subjective ROS Limited/Unobtainable: Yes Interval Events: Transferred to ICU for hypoxemic respiratory failure and noted with L lung mucous plugging. Intubated, R lung became plugged. CXR today now with infiltrates but both lung aerated. Thin secretions. Condition: critical IV Access: PICC FI02: 100 Vent Support Breath Rate: 16 Vent Support Mode: AC Vent Tidal Volume: 450 Sputum Amount: Small PEEP: 5.0 PIP: 33 Tube Feeding Amount: 30 I&O: Intake and Output 07/31/19 08/01/19 19:00 07:00 Intake Total 1730 ml 1915 ml Output Total 1700 ml 435 ml Balance 30 ml 1480 ml Intake Free Water 100 ml IV Total 1610 ml 1515 ml Tube Feeding 120 ml 300 ml Output Urine Total 1700 ml 435 ml # Bowel Movements 2 1 ET-Tube: 7.5 ET Position: 24 Walker Bonilla MD Aug 01, 2019 10:53
--- NOTE | 2019-08-01 11:08 | NUR ---
Social Work This Sw met with patient, currently in the ICU who is intubated/sedated. This Sw contacted patient's sister, Karolyn Mueller ([phone]) who is the one of the primary decision makers for patient (along with brother, Quinn: [phone] and patients father), who all lives with patient. Patient is bedridden or wheelchair bound, requires 24 hour care and is transported by family van or ambulance, as needed. Sister explains they have a ramp, along with all of the DME needed (expressed no further needs or concerns at this time). Sister states they also have a private caregiver, along with family care (and home care: unable to recall which home care agency was following). Sister explains patient has MD appointments weekly; family arranges and provides transportation to/from. Sister insisting on patient remaining full code, full treatment (patient does not have an Advance Directive). Family plans for patient to discharge to home with home care upon discharge. No other needs or concerns at this time.
--- NOTE | 2019-08-01 11:42 | Diagnostic Imaging Report ---
Indication: Dyspnea Technique: One view of the chest Comparison: 07/31/2019 Findings: Improved and now satisfactory position of endotracheal tube, tip projecting approximately 2 cm above the mercedes. The tube and line positions are stable. There is bilateral diffuse interstitial and airspace disease, right greater than left, possibly worse on the right as compared to the prior study. Impression: Improved and now satisfactory position of endotracheal tube Bilateral interstitial and airspace disease, right greater than left, probably increased on the right compared to the previous study.
--- NOTE | 2019-08-01 12:00 | NUR ---
NURSE NOTES: Blood culture x2 sets from central and peripheral lines were drawn and sent to lab. Sputum culture was obtained and sent to lab. Mucomyst has been increased to 400mg per Dr Bonilla's order with same frequency.
--- NOTE | 2019-08-01 14:00 | NUR ---
NURSE NOTES: Pt was seen by Dr Masters. updated regarding family's request to transfer pt to [facility]. Per MD, pt will stay at [facility] for now until further notice. VS remain stable. Pt was cleaned and repositioned.
--- NOTE | 2019-08-01 14:36 | NUR ---
RD ASSESSMENT & RECOMMENDATIONS SEE CARE ACTIVITY FOR COMPLETE ASSESSMENT DAILY ESTIMATED NEEDS: Needs based on wound, critical care/ 47.6kg abw 25-30 kcals/kg 8715-2631 total kcals 1.25-2 g protein/kg 60-95 g total protein 25-30 mL/kg 3229-9584 total fluid mLs NUTRITION DIAGNOSIS: * Increased kcal/pro needs r/t wound healing as evidenced by h/o spina bifida, adm w/ full thickness wound @ sacrum and resolving pressure injury @ R-ischium. * Swallowing difficulty R/T respiratory status as evidenced by re-intubated, on NGT feeding. CURRENT TF:Vital 1.2 @ 45ml/hr x 24 hrs PO DIET RECOMMENDATIONS: CASING TESTER eval post extubation ENTERAL NUTRITION RECOMMENDATIONS: Vital AF 1.2 @ 45ml/hr x 24 hrs to provide 1080ml, 1296kcal, 81g prot, 875ml free water - Maintain current TF: meets 100% est kcal/prot needs - Without IVF: water flush of 140ml q 6hrs - HOB over 30 degrees. ADDITIONAL RECOMMENDATIONS: 1) Wound care: add GREGG in 4oz H2O BID via NGT Add VIT C 500mg daily 2) Maintain calibrated bed scale wts 3) NISS for BG control on TF 4) Monitor lytes daily, replete as needed (low K, phos, mag) . .
--- NOTE | 2019-08-01 14:46 | Infectious Diseases Prog Note ---
Assessment/Plan Problems: (1) Pneumonia of both lower lobes Assessment & Plan: with B/L infiltrates worse on the right with hypoxemia , suspect recurrent aspiration , with no more bloody secretions , continue meropenem and zyvox coverage for now pending repeated sputum culture . aspiration precaution, monitor CXR , may need tube feeding and tracheostomy . (2) Catheter-associated urinary tract infection Assessment & Plan: with MDR pseudomonas aeruginosa , ESBL producing E coli and Enterococcus Faecalis vancomycin resistant , back on zyvox and meropenem for total of two weeks , continue local catheter care, recommend to change the suprapubic catheter if not done yet. D/W nurse (3) Sepsis Assessment & Plan: with streptococcus alpha hemolytic , already on zyvox for pneumonia coverage , repeated blood culture is negative so far , may need to remove the central line and put a new one (4) Decubitus skin ulcer Assessment & Plan: of the sacrum, continue off loading and local wound care as per hospital protocol (5) Respiratory failure with hypoxia Assessment & Plan: got worse again , with low O2 on ABG, was reintubated again and on mechanical ventilation , monitor ABG and CXR as per pulmonary , aspiration precaution and keep HOB > 30 DEGREE (6) At risk for aspiration pneumonia Assessment & Plan: aspiration precaution, may benefit from tube feeding , since weak oral phase Subjective ROS Limited/Unobtainable: Yes Allergies: Coded Allergies: PENICILLIN G (Verified Allergy, Unknown, 12/02/18) Tolerates cabapenem, cephalosporin PENICILLINS (Unverified Allergy, Unknown, 12/02/18) Subjective she was transferred to ICU and intubated , started on mechanical ventilation due to respiratory distress and possible aspiration , no more bloody suctioning from her ET tube as per nurse , awake and responsive , still congested with harsh breathing sounds , spiked fever last night , but none today , no diarrhea. Objective Vital Signs Last 24 Hour Vital Signs Date Time Temp Pulse Resp B/P (MAP) Pulse Ox O2 Delivery O2 Flow Rate FiO2 08/01/19 13:00 90 19 124/62 (82) 08/01/19 12:43 90 17 100 08/01/19 12:00 98.9 90 22 129/66 (87) 08/01/19 12:00 89 08/01/19 12:00 100 08/01/19 11:27 85 20 96 Mechanical Ventilator 100 88 19 100 08/01/19 11:00 81 16 116/56 (76) 95 08/01/19 10:00 88 19 134/57 (82) 96 08/01/19 09:00 Mechanical Ventilator Mechanical Ventilator 08/01/19 09:00 94 19 131/72 (91) 97 08/01/19 08:30 90 16 100 08/01/19 08:00 100 08/01/19 08:00 99.1 86 16 118/52 (74) 96 08/01/19 08:00 85 08/01/19 07:31 97 16 100 Mechanical Ventilator 100 83 16 100 08/01/19 07:00 84 16 116/50 (72) 98 08/01/19 06:00 88 16 116/56 (76) 96 08/01/19 05:24 83 17 100 08/01/19 05:00 101 18 111/58 (75) 96 08/01/19 04:00 100 08/01/19 04:00 98.4 85 17 87/49 (62) 98 08/01/19 04:00 79 08/01/19 03:33 81 16 98 Mechanical Ventilator 100 85 18 100 08/01/19 03:00 85 16 88/44 (59) 94 08/01/19 02:00 88 16 88/48 (61) 94 08/01/19 01:20 94 19 100 08/01/19 01:00 83 16 90/52 (65) 95 08/01/19 00:00 99.6 82 16 87/42 (57) 96 08/01/19 00:00 100 08/01/19 00:00 91 08/01/19 00:00 Mechanical Ventilator Mechanical Ventilator 07/31/19 23:27 92 16 97 Mechanical Ventilator 100 93 16 100 07/31/19 23:00 90 16 88/47 (61) 97 07/31/19 22:53 99.6 07/31/19 22:00 101 18 109/54 (72) 92 07/31/19 21:14 103 18 100 07/31/19 21:00 109 20 108/57 (74) 93 07/31/19 21:00 Mechanical Ventilator Mechanical Ventilator 07/31/19 20:00 84 07/31/19 20:00 100 07/31/19 20:00 101.1 97 16 86/72 (77) 97 07/31/19 19:28 87 16 100 Mechanical Ventilator 100 89 16 100 07/31/19 18:00 108 18 99/50 (66) 91 07/31/19 17:00 92 17 91/45 (60) 98 07/31/19 16:39 91 16 100 07/31/19 16:00 100 07/31/19 16:00 Mechanical Ventilator Mechanical Ventilator 07/31/19 16:00 98.9 89 16 99/60 (73) 99 07/31/19 16:00 89 07/31/19 15:00 92 20 100 Mechanical Ventilator 100 85 20 98 07/31/19 15:00 87 20 93/38 (56) 97 Height (Feet): 4 Height (Inches): 10.00 Weight (Pounds): 162 General Appearance: WD/WN, no acute distress HEENT: normocephalic, atraumatic, anicteric, mucous membranes moist, PERRL, supple, no JVD, other - intubated on mechanical ventilation Respiratory/Chest: chest wall non-tender, no respiratory distress, no accessory muscle use, decreased breath sounds, crackles/rales, expiratory wheezing Cardiovascular: normal peripheral pulses, normal rate, regular rhythm, no gallop/murmur, no JVD Abdomen: normal bowel sounds, soft, non tender, no organomegaly, non distended , no mass, no scars Genitourinary: normal external genitalia Extremities: no cyanosis, no clubbing Skin: no rash, no lesions Neurologic/Psychiatric: alert, responsive Lymphatic: no neck adenopathy, no groin adenopathy Musculoskeletal: normal muscle bulk, no effusion Microbiology Date/Time Source Procedure Growth Status 07/29/19 18:25 Blood Blood Culture - Preliminary NO GROWTH AFTER 48 HOURS Resulted 07/29/19 17:55 Blood Blood Culture - Preliminary NO GROWTH AFTER 48 HOURS Resulted 07/31/19 14:00 Sputum Expectorated Gram Stain - Final Resulted 07/31/19 14:00 Sputum Expectorated Sputum Culture Pending Resulted Laboratory Tests Test 07/31/19 17:33 08/01/19 04:45 08/01/19 08:48 Arterial Blood pH 7.473 (7.350-7.450) 7.399 (7.350-7.450) Arterial Blood Partial Pressure CO2 36.7 mmHg (35.0-45.0) 50.0 mmHg (35.0-45.0) H Arterial Blood Partial Pressure O2 91.2 mmHg (75.0-100.0) 60.8 mmHg (75.0-100.0) L Arterial Blood HCO3 26.3 mmol/L (22.0-26.0) H 30.2 mmol/L (22.0-26.0) H Arterial Blood Oxygen Saturation 96.6 % (95-100) 90.0 % (95-100) L Arterial Blood Base Excess 2.7 (-2-2) H 4.7 (-2-2) H Gerard Test Positive Positive White Blood Count 13.4 K/UL (4.8-10.8) H Red Blood Count 4.23 M/UL (4.20-5.40) Hemoglobin 9.0 G/DL (12.0-16.0) L Hematocrit 29.6 % (37.0-47.0) L Mean Corpuscular Volume 70 FL (80-99) L Mean Corpuscular Hemoglobin 21.3 PG (27.0-31.0) L Mean Corpuscular Hemoglobin Concent 30.4 G/DL (32.0-36.0) L Red Cell Distribution Width 17.7 % (11.6-14.8) H Platelet Count 215 K/UL (150-450) Mean Platelet Volume 6.1 FL (6.5-10.1) L Neutrophils (%) (Auto) 74.9 % (45.0-75.0) Lymphocytes (%) (Auto) 16.7 % (20.0-45.0) L Monocytes (%) (Auto) 5.0 % (1.0-10.0) Eosinophils (%) (Auto) 2.7 % (0.0-3.0) Basophils (%) (Auto) 0.7 % (0.0-2.0) Sodium Level 144 MMOL/L (136-145) Potassium Level 2.7 MMOL/L (3.5-5.1) *L Chloride Level 107 MMOL/L (98-107) Carbon Dioxide Level 28 MMOL/L (21-32) Anion Gap 9 mmol/L (5-15) Blood Urea Nitrogen 6 mg/dL (7-18) L Creatinine 0.4 MG/DL (0.55-1.30) L Estimat Glomerular Filtration Rate > 60 mL/min (>60) Glucose Level 108 MG/DL (74-106) H Calcium Level 7.6 MG/DL (8.5-10.1) L Phosphorus Level 2.3 MG/DL (2.5-4.9) L Magnesium Level 1.4 MG/DL (1.8-2.4) L Total Bilirubin 0.3 MG/DL (0.2-1.0) Aspartate Amino Transf (AST/SGOT) 17 U/L (15-37) Alanine Aminotransferase (ALT/SGPT) 31 U/L (12-78) Alkaline Phosphatase 80 U/L (46-116) Total Protein 6.4 G/DL (6.4-8.2) Albumin 1.9 G/DL (3.4-5.0) L Globulin 4.5 g/dL Albumin/Globulin Ratio 0.4 (1.0-2.7) L Current Medications Medications (Trade) Dose Ordered Sig/Sandeep Route PRN Reason Start Time Stop Time Status Last Admin Dose Admin Acetaminophen (Tylenol) 650 mg Q6H PRN GT Mild Pain/Temp > 100.5 07/31/19 12:45 08/11/19 12:43 07/31/19 22:23 Acetylcysteine (Mucomyst) 400 mg Q4HRT [facility] 08/01/19 11:00 08/16/19 18:59 08/01/19 11:12 Albuterol/ Ipratropium (Albuterol/ Ipratropium) 3 ml Q4HRT [facility] 07/31/19 15:00 08/02/19 00:59 08/01/19 11:12 Apixaban (Eliquis) 5 mg BID GT 07/31/19 18:00 08/24/19 18:10 08/01/19 09:34 Chlorhexidine Gluconate (Debora-Hex 2%) 1 applic DAILY@2000 TOPIC 07/31/19 20:00 08/13/19 19:59 07/31/19 20:34 Dextrose/Sodium Chloride 1,000 ml @ 100 mls/hr Q10H IV 07/31/19 12:45 08/27/19 06:14 08/01/19 09:33 Famotidine (Pepcid) 20 mg BID GT 07/31/19 18:00 08/18/19 17:59 08/01/19 09:34 Iron Sucrose 100 mg/Sodium Chloride 60 ml @ 240 mls/hr BEDTIME IV 07/31/19 21:00 08/04/19 21:14 07/31/19 20:35 Linezolid 300 ml @ 300 mls/hr Q12HR@0500,1700 IVPB 07/31/19 17:00 08/04/19 16:59 08/01/19 05:18 Lorazepam (Ativan 2mg/ml 1ml) 2 mg Q4H PRN IV For Anxiety 07/31/19 14:00 08/07/19 13:59 Meropenem 1 gm/ Sodium Chloride 55 ml @ 110 mls/hr Q8H IVPB 07/31/19 18:00 08/02/19 17:59 08/01/19 09:34 Morphine Sulfate (Morphine Sulfate) 4 mg Q4H PRN IVP Severe Pain (Pain Scale 7-10) 07/31/19 14:00 08/07/19 13:59 Pantoprazole (Protonix) 40 mg DAILY IV 08/01/19 09:00 08/31/19 08:59 08/01/19 09:33 Potassium Phosphate 30 mm/ Sodium Chloride 560 ml @ 93.333 mls/ hr ONCE ONCE IV 08/01/19 10:00 08/01/19 15:59 08/01/19 09:33 Potassium Chloride 100 ml @ 100 mls/hr Q1HR IVPB 08/01/19 13:00 08/01/19 16:59 08/01/19 13:06 Sennosides (Senokot) 8.6 mg BID GT 07/31/19 18:00 08/11/19 08:59 08/01/19 09:34 Gigi Sanabria M.D. Aug 01, 2019 14:46
--- NOTE | 2019-08-01 16:00 | NUR ---
NURSE NOTES: NGT feeding Vital AF rate has been increased to goal rate of 45ml/hour. Residual during my shift has been from 0-10ml. Pt was seen by Dr Davis this morning. Per MD, plan for PEG, pending family consent. Also plan for Trach, however still no family consent yet. Family currently is planning to transfer pt to [facility] which is still on hold, pending Dr Masters's approval/and room placement.
--- NOTE | 2019-08-01 16:54 | Internal Med Progress Note ---
Subjective Physician Name Wil Masters Attending Physician Wil Masters MD Current Medications Medications (Trade) Dose Ordered Sig/Sandeep Route PRN Reason Start Time Stop Time Status Last Admin Dose Admin Acetaminophen (Tylenol) 650 mg Q6H PRN GT Mild Pain/Temp > 100.5 07/31/19 12:45 08/11/19 12:43 07/31/19 22:23 Acetylcysteine (Mucomyst) 400 mg Q4HRT N 08/01/19 11:00 08/16/19 18:59 08/01/19 15:11 Albuterol/ Ipratropium (Albuterol/ Ipratropium) 3 ml Q4HRT N 07/31/19 15:00 08/02/19 00:59 08/01/19 15:11 Apixaban (Eliquis) 5 mg BID GT 07/31/19 18:00 08/24/19 18:10 08/01/19 09:34 Chlorhexidine Gluconate (Debora-Hex 2%) 1 applic DAILY@2000 TOPIC 07/31/19 20:00 08/13/19 19:59 07/31/19 20:34 Dextrose/Sodium Chloride 1,000 ml @ 100 mls/hr Q10H IV 07/31/19 12:45 08/27/19 06:14 08/01/19 09:33 Famotidine (Pepcid) 20 mg BID GT 07/31/19 18:00 08/18/19 17:59 08/01/19 09:34 Iron Sucrose 100 mg/Sodium Chloride 60 ml @ 240 mls/hr BEDTIME IV 07/31/19 21:00 08/04/19 21:14 07/31/19 20:35 Linezolid 300 ml @ 300 mls/hr Q12HR@0500,1700 IVPB 07/31/19 17:00 08/04/19 16:59 08/01/19 16:19 Lorazepam (Ativan 2mg/ml 1ml) 2 mg Q4H PRN IV For Anxiety 07/31/19 14:00 08/07/19 13:59 Meropenem 1 gm/ Sodium Chloride 55 ml @ 110 mls/hr Q8H IVPB 07/31/19 18:00 08/02/19 17:59 08/01/19 09:34 Morphine Sulfate (Morphine Sulfate) 4 mg Q4H PRN IVP Severe Pain (Pain Scale 7-10) 07/31/19 14:00 08/07/19 13:59 Pantoprazole (Protonix) 40 mg DAILY IV 08/01/19 09:00 08/31/19 08:59 08/01/19 09:33 Potassium Chloride 100 ml @ 100 mls/hr Q1HR IVPB 08/01/19 13:00 08/01/19 16:59 08/01/19 16:19 Sennosides (Senokot) 8.6 mg BID GT 07/31/19 18:00 08/11/19 08:59 08/01/19 09:34 Allergies: Coded Allergies: PENICILLIN G (Verified Allergy, Unknown, 12/02/18) Tolerates cabapenem, cephalosporin PENICILLINS (Unverified Allergy, Unknown, 12/02/18) Subjective IN ICU, Intubated, awake, responsive, able to F/U with commands. WBC: 13.4. Objective Last Vital Signs Date Time Temp Pulse Resp B/P (MAP) Pulse Ox O2 Delivery O2 Flow Rate FiO2 08/01/19 16:42 84 20 100 08/01/19 16:00 99.0 100/73 (82) 98 08/01/19 15:30 Mechanical Ventilator 07/27/19 04:00 4.0 Laboratory Tests Test 07/31/19 17:33 08/01/19 04:45 08/01/19 08:48 Arterial Blood pH 7.473 (7.350-7.450) 7.399 (7.350-7.450) Arterial Blood Partial Pressure CO2 36.7 mmHg (35.0-45.0) 50.0 mmHg (35.0-45.0) H Arterial Blood Partial Pressure O2 91.2 mmHg (75.0-100.0) 60.8 mmHg (75.0-100.0) L Arterial Blood HCO3 26.3 mmol/L (22.0-26.0) H 30.2 mmol/L (22.0-26.0) H Arterial Blood Oxygen Saturation 96.6 % (95-100) 90.0 % (95-100) L Arterial Blood Base Excess 2.7 (-2-2) H 4.7 (-2-2) H Gerard Test Positive Positive White Blood Count 13.4 K/UL (4.8-10.8) H Red Blood Count 4.23 M/UL (4.20-5.40) Hemoglobin 9.0 G/DL (12.0-16.0) L Hematocrit 29.6 % (37.0-47.0) L Mean Corpuscular Volume 70 FL (80-99) L Mean Corpuscular Hemoglobin 21.3 PG (27.0-31.0) L Mean Corpuscular Hemoglobin Concent 30.4 G/DL (32.0-36.0) L Red Cell Distribution Width 17.7 % (11.6-14.8) H Platelet Count 215 K/UL (150-450) Mean Platelet Volume 6.1 FL (6.5-10.1) L Neutrophils (%) (Auto) 74.9 % (45.0-75.0) Lymphocytes (%) (Auto) 16.7 % (20.0-45.0) L Monocytes (%) (Auto) 5.0 % (1.0-10.0) Eosinophils (%) (Auto) 2.7 % (0.0-3.0) Basophils (%) (Auto) 0.7 % (0.0-2.0) Sodium Level 144 MMOL/L (136-145) Potassium Level 2.7 MMOL/L (3.5-5.1) *L Chloride Level 107 MMOL/L (98-107) Carbon Dioxide Level 28 MMOL/L (21-32) Anion Gap 9 mmol/L (5-15) Blood Urea Nitrogen 6 mg/dL (7-18) L Creatinine 0.4 MG/DL (0.55-1.30) L Estimat Glomerular Filtration Rate > 60 mL/min (>60) Glucose Level 108 MG/DL (74-106) H Calcium Level 7.6 MG/DL (8.5-10.1) L Phosphorus Level 2.3 MG/DL (2.5-4.9) L Magnesium Level 1.4 MG/DL (1.8-2.4) L Total Bilirubin 0.3 MG/DL (0.2-1.0) Aspartate Amino Transf (AST/SGOT) 17 U/L (15-37) Alanine Aminotransferase (ALT/SGPT) 31 U/L (12-78) Alkaline Phosphatase 80 U/L (46-116) Total Protein 6.4 G/DL (6.4-8.2) Albumin 1.9 G/DL (3.4-5.0) L Globulin 4.5 g/dL Albumin/Globulin Ratio 0.4 (1.0-2.7) L Microbiology Date/Time Source Procedure Growth Status 07/29/19 18:25 Blood Blood Culture - Preliminary NO GROWTH AFTER 48 HOURS Resulted 07/29/19 17:55 Blood Blood Culture - Preliminary NO GROWTH AFTER 48 HOURS Resulted 07/31/19 14:00 Sputum Expectorated Gram Stain - Final Resulted 07/31/19 14:00 Sputum Expectorated Sputum Culture Pending Resulted Intake and Output 07/31/19 08/01/19 19:00 07:00 Intake Total 1730 ml 2015 ml Output Total 1700 ml 435 ml Balance 30 ml 1580 ml Intake Free Water 100 ml IV Total 1610 ml 1615 ml Tube Feeding 120 ml 300 ml Output Urine Total 1700 ml 435 ml # Bowel Movements 2 1 Objective General: Intubated, awake, responsive. HEENT: NCAT, sclera anicteric, PERRL, EOMI, ET tube intact. Neck: Supple, no significant jugular venous distention, Lungs: Mechanical breath sound, + coarse breath, no Wheeze. Heart: Regular rate and rhythm, normal S1/S2, no murmurs/gallops Abdomen: soft, nontender, nondistended. Normoactive bowel sounds, morbid obesity. / Rectal: suprapubic cath. Extremities: No Cyanosis , clubbing or edema. Neuro: A&O x 3, Able to move Upper extremities, unable to move LE's. Paraplegic. Skin: warm, no rash. Assessment/Plan Assessment/Plan 1) Pneumonia of both lower lobes Assessment & Plan: VDRF, intubated 07/12/19, S/P FOB 07/12/19; Reintubated (2) Catheter-associated urinary tract infection Assessment & Plan: PsA and proteus (3) Acute Respiratory failure with hypoxia Assessment & Plan: Acute on chronic hypercapnic and hypoxemic RF 2/2 PNA VDRF as able Duplex neg, minimally elevated d-dimer, unlikely VTE On Eliquis. (4) HCAP (healthcare-associated pneumonia) (5) Paraplegia (6) Sepsis (7) Suprapubic catheter (8) Restrictive lung disease due to kyphoscoliosis (9) Decubitus skin ulcer (10) Spina bifida Plan: * cont mechanical ventilatory support, wean as tolerated * Check ABG * Monitor Labs * F/U tracheal aspirate * Good pulmonary hygiene: Duonebs and Mucomyst q4 * given the recurrent nature of this patient's respiratory failure, if not able to get extubated quickly, may need tracheostomy * needs PEG tube * Unclear if will be able to transfer to [facility] as no bed available there * Abx: Zyvox and Meropenem Wil Masters MD Aug 01, 2019 16:54
--- NOTE | 2019-08-01 18:00 | NUR ---
NURSE NOTES: VS remain stable. Pt was cleaned and repositioned. Oral care done and pt was suctioned. Spoke with pt's sister over the phone and updated regarding conversation with Dr Masters for transfer status to [facility]. Pt's sister was informed that MD is aware of her request and currently pt will remain in ICU at [facility] until further notice from Dr Masters/case consultant.
--- NOTE | 2019-08-01 19:30 | NUR ---
HAND-OFF: Report given to Eber RN. Endorsed plan of care. VS remain stable.
--- NOTE | 2019-08-01 19:35 | NUR ---
NURSE NOTES: Received patient and report from EMMA Aguilera. Pt's awake, alert, non verbal, Orally intubated ETT 7.5, 24LL, AC 16, VT450, FIO2 80% PEEP 5. On Vital AF 1.2 at 45ml/hr and no residual at this time via NGT placement intact in left nare. Left UA PICC noted, intact, no redness noted running D5NS at 100ml/hr. Patient turned and repositioned. Suprapubic cath draining cloudy straw urine noted. Suctioned as tolerated, HOB elevated to prevent aspiration.Call light within easy reach, will continue to monitor
[2019-08-01] MEDS: Iron Sucrose 100 MG in NS 55 ML IV SCH (20:47)
[2019-08-01] MEDS: Dyna-Hex 2% Top Sol 2oz TOPIC SCH (20:47)
--- NOTE | 2019-08-01 22:00 | NUR ---
NURSE NOTES: Pt's resting in bed, in no acute distress. VS stable. Will continue to monitor.
[2019-08-02] VITALS (24 sets, daily range): BP systolic 106–135; BP diastolic 47–69
--- NOTE | 2019-08-02 | NUR ---
NURSE NOTES: Pt's resting in bed, asleep with eyes closed. Afebrile. VS stable. Will continue to monitor.
--- NOTE | 2019-08-02 02:00 | NUR ---
NURSE NOTES: Pt's resting in bed, in no acute distress. VS stable. Will continue to monitor.
[2019-08-02] MEDS: Meropenem 1 GM in NS 55 ML IVPB SCH ×3 (02:56→18:01)
[2019-08-02] MEDS: Acetylcysteine 20% Soln 4ml HHN SCH ×6 (03:40→23:15)
[2019-08-02] MEDS: Albuterol/Ipratropium 3ml neb HHN SCH ×6 (03:40→23:15)
--- NOTE | 2019-08-02 04:00 | NUR ---
NURSE NOTES: Pt's resting in bed, in no acute distress. VS stable. Will continue to monitor.
[2019-08-02] MEDS: D5NS 1,000 ML IV SCH ×2 (04:51→15:45)
[2019-08-02 05:37] LABS: HEMATOCRIT 24.3 % (37.0-47.0); HEMOGLOBIN 7.5 G/DL (12.0-16.0); MEAN CORPUSCULAR VOLUME 70 FL (80-99); PLATELET COUNT 187 K/UL (150-450); RED BLOOD COUNT 3.47 M/UL (4.20-5.40); RED CELL DISTRIBUTION WIDTH 17.9 % (11.6-14.8); WHITE BLOOD COUNT 12.2 K/UL (4.8-10.8)
[2019-08-02 05:59] LABS: ANION GAP 6 mmol/L (5-15); BLOOD UREA NITROGEN 3 mg/dL (7-18); CALCIUM 7.2 MG/DL (8.5-10.1); CARBON DIOXIDE 28 MMOL/L (21-32); CHLORIDE 108 MMOL/L (98-107); CREATININE 0.4 MG/DL (0.55-1.30); POTASSIUM 3.4 MMOL/L (3.5-5.1); SODIUM 142 MMOL/L (136-145)
--- NOTE | 2019-08-02 06:00 | NUR ---
NURSE NOTES: Pt's resting in bed, asleep with eyes closed. VS stable. Afebrile. Will continue to monitor.
--- NOTE | 2019-08-02 07:09 | NUR ---
HAND-OFF: Report given to EMMA Grove. Addendum: 08/02/19 at 0745 by MUKUL ALEXANDER RN RN Tonya CARTER's name: Report given to EMMA Singh
--- NOTE | 2019-08-02 07:10 | NUR ---
NURSE NOTES: Late entry: PT and report received from EMMA Velázquez; PT A/O non-verbal, orally intubated ETT 7.5 @ 24cm R-lip, AC 16, TV 450, 80%, peep 5, no S/S of respiratory distress noted during morning rounds saturating at 100%; manager clinical shows SR during morning rounds; PT has L-NGT running Vital 1.2 @ 45cc @ goal, no residual noted patent flushed with 30cc water; PT has suprapubic catheter intact draining; PT has JASON double lumen PICC intact flushes well infusing D5NS @ 100cc/hr. PT has plans for weaning, will continue to monitor PT and follow through with plan of care for PT.
[2019-08-02] MEDS: Sennosides 8.6mg tab GT SCH ×2 (09:34→18:01)
[2019-08-02] MEDS: Eliquis 5mg tablet GT SCH ×2 (09:34→18:01)
[2019-08-02] MEDS: Pantoprazole Inj IV SCH (09:35)
--- NOTE | 2019-08-02 10:04 | NUR ---
NURSE NOTES: PT R-axillary temperature is 100.0; cooling measures implemented with ice packs. Will continue to monitor PT.
--- NOTE | 2019-08-02 10:16 | Diagnostic Imaging Report ---
EXAM: XR Chest, 1 View CLINICAL HISTORY: Shortness of breath TECHNIQUE: Frontal view of the chest. COMPARISON: Chest x-rays dated 08/01/19, 07/31/19 FINDINGS: Lungs: Persistent patchy hazy opacities throughout the right lung and retrocardiac region, not significantly changed compared to the prior exam. Pleural space: Unremarkable. The costophrenic angles are sharp. No visible pneumothorax. Heart: Cardiomegaly. Mediastinum: Unremarkable. Bones/joints: Unremarkable. Tubes, lines and devices: Tip of the endotracheal tube and location of the mercedes are both obscured by the radiodense spinal hardware. NG tube extends below the diaphragm and its tip is not visualized. IMPRESSION: No significant interval change compared to the prior day's chest x-ray.
--- NOTE | 2019-08-02 10:26 | NUR ---
NURSE NOTES: MD Susan made rounds, updates given about PT; informed PT has low K this morning, MD will place orders. Will continue to monitor PT and carry out MD order.
--- NOTE | 2019-08-02 10:27 | General Progress Note ---
Assessment/Plan Problem List: (1) Spina bifida ICD Codes: Q05.9 - Spina bifida, unspecified SNOMED: 98833881 Qualifiers: Qualified Codes: Q05.4 - Unspecified spina bifida with hydrocephalus (2) Respiratory failure with hypoxia ICD Codes: J96.91 - Respiratory failure, unspecified with hypoxia SNOMED: [id number] Qualifiers: Qualified Codes: J96.21 - Acute and chronic respiratory failure with hypoxia (3) Dysphagia ICD Codes: R13.10 - Dysphagia, unspecified SNOMED: 34394961, [id number] Status: not improved Assessment/Plan: NOW INTUBATED IN THE icu needs PEG will d/w the family and will plan for Sunday if they agree ppi repeat labs fu H&H NGTF for now Subjective ROS Limited/Unobtainable: No Allergies: Coded Allergies: PENICILLIN G (Verified Allergy, Unknown, 12/02/18) Tolerates cabapenem, cephalosporin PENICILLINS (Unverified Allergy, Unknown, 12/02/18) Objective Last 24 Hour Vital Signs Date Time Temp Pulse Resp B/P (MAP) Pulse Ox O2 Delivery O2 Flow Rate FiO2 08/02/19 10:00 80 16 110/52 (71) 98 08/02/19 09:29 84 16 80 08/02/19 09:00 100.0 87 16 119/58 (78) 98 08/02/19 09:00 Mechanical Ventilator Mechanical Ventilator 08/02/19 08:00 80 08/02/19 08:00 89 16 115/54 (74) 99 08/02/19 08:00 85 08/02/19 07:29 87 17 99 Mechanical Ventilator 80 87 17 80 08/02/19 07:00 87 17 107/49 (68) 98 08/02/19 06:00 82 17 123/61 (81) 98 08/02/19 05:00 89 16 112/51 (71) 93 08/02/19 04:37 90 16 80 08/02/19 04:00 92 16 109/50 (69) 99 08/02/19 04:00 82 08/02/19 04:00 80 08/02/19 03:10 96 19 99 Mechanical Ventilator 80 95 16 80 08/02/19 03:00 94 19 121/59 (79) 96 08/02/19 02:00 90 16 108/47 (67) 91 08/02/19 01:00 90 20 130/60 (83) 08/02/19 00:34 80 16 80 08/02/19 00:00 80 08/02/19 00:00 83 08/02/19 00:00 90 20 135/65 (88) 93 08/01/19 23:56 91 18 99 Mechanical Ventilator 80 90 16 80 08/01/19 23:00 89 19 121/67 (85) 98 08/01/19 22:00 79 16 112/58 (76) 96 08/01/19 21:00 75 16 106/51 (69) 97 08/01/19 21:00 Mechanical Ventilator Mechanical Ventilator 08/01/19 20:48 76 16 50 08/01/19 20:00 73 08/01/19 20:00 98.9 75 16 106/49 (68) 100 08/01/19 20:00 80 08/01/19 19:25 79 16 99 Mechanical Ventilator 50 79 16 80 08/01/19 19:00 84 16 114/61 (78) 99 08/01/19 18:00 83 17 122/62 (82) 99 08/01/19 17:00 82 17 116/64 (81) 99 08/01/19 16:42 84 20 100 08/01/19 16:00 99.0 84 17 100/73 (82) 98 08/01/19 16:00 86 08/01/19 16:00 100 08/01/19 15:30 85 17 99 Mechanical Ventilator 100 84 16 100 08/01/19 15:11 85 19 95 Mechanical Ventilator 100 08/01/19 15:00 80 18 120/62 (81) 97 08/01/19 14:00 89 16 112/56 (74) 08/01/19 13:00 90 19 124/62 (82) 98 08/01/19 12:43 90 17 100 08/01/19 12:00 98.9 90 22 129/66 (87) 97 08/01/19 12:00 89 08/01/19 12:00 100 08/01/19 11:27 85 20 96 Mechanical Ventilator 100 88 19 100 08/01/19 11:00 81 16 116/56 (76) 95 Intake and Output 08/01/19 08/02/19 19:00 07:00 Intake Total 3358.331 ml 2155 ml Output Total 765 ml 755 ml Balance 2593.331 ml 1400 ml Intake Free Water 110 ml IV Total 2823.331 ml 1615 ml Tube Feeding 425 ml 540 ml Output Urine Total 765 ml 755 ml # Bowel Movements 1 1 Laboratory Tests 08/02/19 04:00: Arterial Blood pH 7.405, Arterial Blood Partial Pressure CO2 46.5H, Arterial Blood Partial Pressure O2 90.8, Arterial Blood HCO3 28.5H, Arterial Blood Oxygen Saturation 96.3, Arterial Blood Base Excess 3.3H, Gerard Test Positive 08/02/19 04:40: White Blood Count 12.2H, Red Blood Count 3.47L, Hemoglobin 7.5L, Hematocrit 24.3L, Mean Corpuscular Volume 70L, Mean Corpuscular Hemoglobin 21.6L, Mean Corpuscular Hemoglobin Concent 30.9L, Red Cell Distribution Width 17.9H, Platelet Count 187, Mean Platelet Volume 5.7L, Neutrophils (%) (Auto) , Lymphocytes (%) (Auto) , Monocytes (%) (Auto) , Eosinophils (%) (Auto) , Basophils (%) (Auto) , Differential Total Cells Counted 100, Neutrophils % ( Manual) 85H, Lymphocytes % (Manual) 10L, Monocytes % (Manual) 4, Eosinophils % ( Manual) 1, Basophils % (Manual) 0, Band Neutrophils 0, Platelet Estimate Adequate, Platelet Morphology Normal, Hypochromasia 2+, Anisocytosis 1+, Sodium Level 142, Potassium Level 3.4L, Chloride Level 108H, Carbon Dioxide Level 28, Anion Gap 6, Blood Urea Nitrogen 3L, Creatinine 0.4L, Estimat Glomerular Filtration Rate > 60, Glucose Level 123H, Calcium Level 7.2L, Magnesium Level 2.0 Height (Feet): 4 Height (Inches): 10.00 Weight (Pounds): 162 General Appearance: lethargic EENT: normal ENT inspection Neck: supple Cardiovascular: normal rate Respiratory/Chest: decreased breath sounds Abdomen: normal bowel sounds, non tender, soft Extremities: non-tender Tim Davis MD Aug 02, 2019 10:27
--- NOTE | 2019-08-02 13:00 | NUR ---
NURSE NOTES: PT VS stable, feeding tolerated, will continue to monitor PT.
[2019-08-02] MEDS ORDERED: D5NS 1000ml IV ONE ×4 (16:08→16:22)
[2019-08-02] MEDS ORDERED: D5 1/2NS 1000ml IV ONE (16:10)
[2019-08-02] MEDS ORDERED: Tubing IV Secondary IV ONE ×3 (16:10→16:22)
[2019-08-02] MEDS ORDERED: NS 275ml ONE ×3 (16:10→16:22)
[2019-08-02] MEDS ORDERED: Sterile Water Irrig 1000ml IRRIG ONE (16:22)
--- NOTE | 2019-08-02 16:52 | Internal Med Progress Note ---
Subjective Date of Service: Aug 02, 2019 Physician Name Niraj Teixeira Attending Physician Wil Masters MD Current Medications Medications (Trade) Dose Ordered Sig/Sandeep Route PRN Reason Start Time Stop Time Status Last Admin Dose Admin Acetaminophen (Tylenol) 650 mg Q6H PRN GT Mild Pain/Temp > 100.5 07/31/19 12:45 08/11/19 12:43 07/31/19 22:23 Acetylcysteine (Mucomyst) 400 mg Q4HRT N 08/01/19 11:00 08/16/19 18:59 08/02/19 16:03 Albuterol/ Ipratropium (Albuterol/ Ipratropium) 3 ml Q4HRT N 08/02/19 03:00 08/07/19 02:59 08/02/19 16:03 Apixaban (Eliquis) 5 mg BID GT 07/31/19 18:00 08/24/19 18:10 08/02/19 09:34 Chlorhexidine Gluconate (Debora-Hex 2%) 1 applic DAILY@2000 TOPIC 07/31/19 20:00 08/13/19 19:59 08/01/19 20:47 Dextrose/Sodium Chloride 1,000 ml @ 100 mls/hr Q10H IV 07/31/19 12:45 08/27/19 06:14 08/02/19 15:45 Famotidine (Pepcid) 20 mg BID GT 07/31/19 18:00 08/18/19 17:59 08/02/19 09:34 Iron Sucrose 100 mg/Sodium Chloride 60 ml @ 240 mls/hr BEDTIME IV 07/31/19 21:00 08/04/19 21:14 08/01/19 20:47 Linezolid 300 ml @ 300 mls/hr Q12HR@0500,1700 IVPB 07/31/19 17:00 08/11/19 23:59 08/02/19 04:58 Lorazepam (Ativan 2mg/ml 1ml) 2 mg Q4H PRN IV For Anxiety 07/31/19 14:00 08/07/19 13:59 Meropenem 1 gm/ Sodium Chloride 55 ml @ 110 mls/hr Q8H IVPB 07/31/19 18:00 1/20/20 23:59 08/02/19 09:35 Morphine Sulfate (Morphine Sulfate) 4 mg Q4H PRN IVP Severe Pain (Pain Scale 7-10) 07/31/19 14:00 08/07/19 13:59 Pantoprazole (Protonix) 40 mg DAILY IV 08/01/19 09:00 08/31/19 08:59 08/02/19 09:35 Sennosides (Senokot) 8.6 mg BID GT 07/31/19 18:00 08/11/19 08:59 08/02/19 09:34 Allergies: Coded Allergies: PENICILLIN G (Verified Allergy, Unknown, 12/02/18) Tolerates cabapenem, cephalosporin PENICILLINS (Unverified Allergy, Unknown, 12/02/18) ROS Limited/Unobtainable: Yes Subjective 49 YO F with pneumonia and respiratory failure. Intubated and sedated. Cover for Int Conor-DR Masters. ICU Objective Last Vital Signs Date Time Temp Pulse Resp B/P (MAP) Pulse Ox O2 Delivery O2 Flow Rate FiO2 08/02/19 16:03 79 16 100 Mechanical Ventilator 80 79 16 80 08/02/19 15:00 121/65 (83) 08/02/19 12:00 99.0 07/27/19 04:00 4.0 Laboratory Tests Test 08/02/19 04:00 08/02/19 04:40 Arterial Blood pH 7.405 (7.350-7.450) Arterial Blood Partial Pressure CO2 46.5 mmHg (35.0-45.0) H Arterial Blood Partial Pressure O2 90.8 mmHg (75.0-100.0) Arterial Blood HCO3 28.5 mmol/L (22.0-26.0) H Arterial Blood Oxygen Saturation 96.3 % (95-100) Arterial Blood Base Excess 3.3 (-2-2) H Gerard Test Positive White Blood Count 12.2 K/UL (4.8-10.8) H Red Blood Count 3.47 M/UL (4.20-5.40) L Hemoglobin 7.5 G/DL (12.0-16.0) L Hematocrit 24.3 % (37.0-47.0) L Mean Corpuscular Volume 70 FL (80-99) L Mean Corpuscular Hemoglobin 21.6 PG (27.0-31.0) L Mean Corpuscular Hemoglobin Concent 30.9 G/DL (32.0-36.0) L Red Cell Distribution Width 17.9 % (11.6-14.8) H Platelet Count 187 K/UL (150-450) Mean Platelet Volume 5.7 FL (6.5-10.1) L Neutrophils (%) (Auto) % (45.0-75.0) Lymphocytes (%) (Auto) % (20.0-45.0) Monocytes (%) (Auto) % (1.0-10.0) Eosinophils (%) (Auto) % (0.0-3.0) Basophils (%) (Auto) % (0.0-2.0) Differential Total Cells Counted 100 Neutrophils % (Manual) 85 % (45-75) H Lymphocytes % (Manual) 10 % (20-45) L Monocytes % (Manual) 4 % (1-10) Eosinophils % (Manual) 1 % (0-3) Basophils % (Manual) 0 % (0-2) Band Neutrophils 0 % (0-8) Platelet Estimate Adequate Platelet Morphology Normal Hypochromasia 2+ Anisocytosis 1+ Sodium Level 142 MMOL/L (136-145) Potassium Level 3.4 MMOL/L (3.5-5.1) L Chloride Level 108 MMOL/L (98-107) H Carbon Dioxide Level 28 MMOL/L (21-32) Anion Gap 6 mmol/L (5-15) Blood Urea Nitrogen 3 mg/dL (7-18) L Creatinine 0.4 MG/DL (0.55-1.30) L Estimat Glomerular Filtration Rate > 60 mL/min (>60) Glucose Level 123 MG/DL (74-106) H Calcium Level 7.2 MG/DL (8.5-10.1) L Magnesium Level 2.0 MG/DL (1.8-2.4) Microbiology Date/Time Source Procedure Growth Status 08/01/19 13:00 Sputum Gram Stain - Final Resulted 08/01/19 13:00 Sputum Sputum Culture Pending Resulted 07/31/19 14:00 Sputum Expectorated Gram Stain - Final Complete 07/31/19 14:00 Sputum Expectorated Sputum Culture - Final NO GROWTH AFTER 48 HOURS Complete Intake and Output 08/01/19 08/02/19 19:00 07:00 Intake Total 3358.331 ml 2155 ml Output Total 765 ml 755 ml Balance 2593.331 ml 1400 ml Intake Free Water 110 ml IV Total 2823.331 ml 1615 ml Tube Feeding 425 ml 540 ml Output Urine Total 765 ml 755 ml # Bowel Movements 1 1 Assessment/Plan Problem List: (1) Respiratory failure with hypoxia Assessment & Plan: Mechanical vent per pulmonary=Dr Bonilla (2) Pneumonia of both lower lobes Assessment & Plan: See ID note. Continue meropenem and zyvox (3) UTI (urinary tract infection) Assessment & Plan: Pseudamonas, ESBL E. Coli, and vanco resistant enterococcus. See ID=Dr Sanabria. Continue meropenem and zyvox (4) Sepsis (5) Paraplegia (6) Spina bifida Niraj Teixeira MD Aug 02, 2019 16:52
--- NOTE | 2019-08-02 17:13 | Pulmonolgy Critical Care Note ---
Critical Care - Asmt/Plan Assessment/Plan: Assessment/Plan: (1) Pneumonia of both lower lobes Assessment & Plan: VDRF, intubated 07/12/19, S/P FOB 07/12/19; Reintubated (2) Catheter-associated urinary tract infection Assessment & Plan: PsA and proteus (3) Respiratory failure with hypoxia Assessment & Plan: Acute on chronic hypercapnic and hypoxemic RF 2/2 PNA VDRF as able Duplex neg, minimally elevated d-dimer, unlikely VTE and already on a NOAC (4) HCAP (healthcare-associated pneumonia) (5) Paraplegia (6) Sepsis (7) Suprapubic catheter (8) Restrictive lung disease due to kyphoscoliosis (9) Decubitus skin ulcer (10) Spina bifida (11) UTI Plan: * cont mechanical ventilatory support, wean as tolerated * Check ABG * Abx per ID * send tracheal aspirate * Good pulmonary hygiene: duonebs and mucomyst q4 * Replete electrolytes * given the recurrent nature of this patient's respiratory failure, if not able to get extubated quickly, may need tracheostomy * needs PEG tube * Unclear if will be able to transfer to [facility] as no bed available there Respiratory: adjust tidal volume, CXR, ABG, weaning trial Cardiac: continue to monitor HR/BP Infectious Disease: check cultures, continue antibiotics Gastrointestinal: hold feedings Endocrine: check TSH Neurologic: PRN Ativan, PRN Morphine Disposition: keep in ICU Time Spent (Minutes): 40 Notes Reviewed: paper pattern folder Discussed with: nurses Critical Care - Objective Last 24 Hour Vital Signs Date Time Temp Pulse Resp B/P (MAP) Pulse Ox O2 Delivery O2 Flow Rate FiO2 08/02/19 16:03 79 16 100 Mechanical Ventilator 80 79 16 80 08/02/19 16:00 80 08/02/19 16:00 81 08/02/19 15:00 80 16 121/65 (83) 100 08/02/19 14:00 84 16 123/67 (85) 100 08/02/19 13:00 88 16 127/66 (86) 99 08/02/19 12:53 80 16 80 08/02/19 12:00 99.0 88 16 131/69 (89) 98 08/02/19 12:00 83 08/02/19 12:00 80 08/02/19 11:45 82 16 99 Mechanical Ventilator 80 82 16 80 08/02/19 11:00 77 16 106/52 (70) 99 08/02/19 10:00 80 16 110/52 (71) 98 08/02/19 09:29 84 16 80 08/02/19 09:00 100.0 87 16 119/58 (78) 98 08/02/19 09:00 Mechanical Ventilator Mechanical Ventilator 08/02/19 08:00 80 08/02/19 08:00 89 16 115/54 (74) 99 08/02/19 08:00 85 08/02/19 07:29 87 17 99 Mechanical Ventilator 80 87 17 80 08/02/19 07:00 87 17 107/49 (68) 98 08/02/19 06:00 82 17 123/61 (81) 98 08/02/19 05:00 89 16 112/51 (71) 93 08/02/19 04:37 90 16 80 08/02/19 04:00 92 16 109/50 (69) 99 08/02/19 04:00 82 08/02/19 04:00 80 08/02/19 03:10 96 19 99 Mechanical Ventilator 80 95 16 80 08/02/19 03:00 94 19 121/59 (79) 96 08/02/19 02:00 90 16 108/47 (67) 91 08/02/19 01:00 90 20 130/60 (83) 08/02/19 00:34 80 16 80 08/02/19 00:00 80 08/02/19 00:00 83 08/02/19 00:00 90 20 135/65 (88) 93 08/01/19 23:56 91 18 99 Mechanical Ventilator 80 90 16 80 08/01/19 23:00 89 19 121/67 (85) 98 08/01/19 22:00 79 16 112/58 (76) 96 08/01/19 21:00 75 16 106/51 (69) 97 08/01/19 21:00 Mechanical Ventilator Mechanical Ventilator 08/01/19 20:48 76 16 50 08/01/19 20:00 73 08/01/19 20:00 98.9 75 16 106/49 (68) 100 08/01/19 20:00 80 08/01/19 19:25 79 16 99 Mechanical Ventilator 50 79 16 80 08/01/19 19:00 84 16 114/61 (78) 99 08/01/19 18:00 83 17 122/62 (82) 99 Status: awake Condition: critical Lungs: rhonchi Heart: HR/BP stable Abdomen: soft, non-tender Extremities: edema Decubiti: location Micro: Microbiology Date/Time Source Procedure Growth Status 08/01/19 13:00 Sputum Gram Stain - Final Resulted 08/01/19 13:00 Sputum Sputum Culture Pending Resulted 07/31/19 14:00 Sputum Expectorated Gram Stain - Final Complete 07/31/19 14:00 Sputum Expectorated Sputum Culture - Final NO GROWTH AFTER 48 HOURS Complete Accucheck: 114 Blood Sugars: BS controlled Critical Care - Subjective ROS Limited/Unobtainable: Yes Condition: critical FI02: 80 Vent Support Breath Rate: 16 Vent Support Mode: AC Vent Tidal Volume: 450 Sputum Amount: Small PEEP: 5.0 PIP: 37 Tube Feeding Amount: 45 I&O: Intake and Output 08/01/19 08/02/19 19:00 07:00 Intake Total 3358.331 ml 2155 ml Output Total 765 ml 755 ml Balance 2593.331 ml 1400 ml Intake Free Water 110 ml IV Total 2823.331 ml 1615 ml Tube Feeding 425 ml 540 ml Output Urine Total 765 ml 755 ml # Bowel Movements 1 1 Subjective: on the vetn awake positive secretions cxr yesterday reviewed opistive uop no fever CXR: Lungs: Persistent patchy hazy opacities throughout the right lung and retrocardiac region, not significantly changed compared to the prior exam. Pleural space: Unremarkable. The costophrenic angles are sharp. No visible pneumothorax. Heart: Cardiomegaly. Mediastinum: Unremarkable. Bones/joints: Unremarkable. Tubes, lines and devices: Tip of the endotracheal tube and location of the mercedes are both obscured by the radiodense spinal hardware. NG tube extends below the diaphragm and its tip is not visualized. ET-Tube: 7.5 ET Position: 24 Labs: Current Medications Medications (Trade) Dose Ordered Sig/Sandeep Route PRN Reason Start Time Stop Time Status Last Admin Dose Admin Acetaminophen (Tylenol) 650 mg Q6H PRN GT Mild Pain/Temp > 100.5 07/31/19 12:45 08/11/19 12:43 07/31/19 22:23 Acetylcysteine (Mucomyst) 400 mg Q4HRT N 08/01/19 11:00 08/16/19 18:59 08/02/19 16:03 Albuterol/ Ipratropium (Albuterol/ Ipratropium) 3 ml Q4HRT [facility] 08/02/19 03:00 08/07/19 02:59 08/02/19 16:03 Apixaban (Eliquis) 5 mg BID GT 07/31/19 18:00 08/24/19 18:10 08/02/19 09:34 Chlorhexidine Gluconate (Debora-Hex 2%) 1 applic DAILY@2000 TOPIC 07/31/19 20:00 08/13/19 19:59 08/01/19 20:47 Dextrose/Sodium Chloride 1,000 ml @ 100 mls/hr Q10H IV 07/31/19 12:45 08/27/19 06:14 08/02/19 15:45 Famotidine (Pepcid) 20 mg BID GT 07/31/19 18:00 08/18/19 17:59 08/02/19 09:34 Iron Sucrose 100 mg/Sodium Chloride 60 ml @ 240 mls/hr BEDTIME IV 07/31/19 21:00 08/04/19 21:14 08/01/19 20:47 Linezolid 300 ml @ 300 mls/hr Q12HR@0500,1700 IVPB 07/31/19 17:00 08/11/19 23:59 08/02/19 04:58 Lorazepam (Ativan 2mg/ml 1ml) 2 mg Q4H PRN IV For Anxiety 07/31/19 14:00 08/07/19 13:59 Meropenem 1 gm/ Sodium Chloride 55 ml @ 110 mls/hr Q8H IVPB 07/31/19 18:00 08/11/19 23:59 08/02/19 09:35 Morphine Sulfate (Morphine Sulfate) 4 mg Q4H PRN IVP Severe Pain (Pain Scale 7-10) 07/31/19 14:00 08/07/19 13:59 Pantoprazole (Protonix) 40 mg DAILY IV 08/01/19 09:00 08/31/19 08:59 08/02/19 09:35 Sennosides (Senokot) 8.6 mg BID GT 07/31/19 18:00 08/11/19 08:59 08/02/19 09:34 Laboratory Tests Test 08/02/19 04:00 08/02/19 04:40 Arterial Blood pH 7.405 (7.350-7.450) Arterial Blood Partial Pressure CO2 46.5 mmHg (35.0-45.0) H Arterial Blood Partial Pressure O2 90.8 mmHg (75.0-100.0) Arterial Blood HCO3 28.5 mmol/L (22.0-26.0) H Arterial Blood Oxygen Saturation 96.3 % (95-100) Arterial Blood Base Excess 3.3 (-2-2) H Gerard Test Positive White Blood Count 12.2 K/UL (4.8-10.8) H Red Blood Count 3.47 M/UL (4.20-5.40) L Hemoglobin 7.5 G/DL (12.0-16.0) L Hematocrit 24.3 % (37.0-47.0) L Mean Corpuscular Volume 70 FL (80-99) L Mean Corpuscular Hemoglobin 21.6 PG (27.0-31.0) L Mean Corpuscular Hemoglobin Concent 30.9 G/DL (32.0-36.0) L Red Cell Distribution Width 17.9 % (11.6-14.8) H Platelet Count 187 K/UL (150-450) Mean Platelet Volume 5.7 FL (6.5-10.1) L Neutrophils (%) (Auto) % (45.0-75.0) Lymphocytes (%) (Auto) % (20.0-45.0) Monocytes (%) (Auto) % (1.0-10.0) Eosinophils (%) (Auto) % (0.0-3.0) Basophils (%) (Auto) % (0.0-2.0) Differential Total Cells Counted 100 Neutrophils % (Manual) 85 % (45-75) H Lymphocytes % (Manual) 10 % (20-45) L Monocytes % (Manual) 4 % (1-10) Eosinophils % (Manual) 1 % (0-3) Basophils % (Manual) 0 % (0-2) Band Neutrophils 0 % (0-8) Platelet Estimate Adequate Platelet Morphology Normal Hypochromasia 2+ Anisocytosis 1+ Sodium Level 142 MMOL/L (136-145) Potassium Level 3.4 MMOL/L (3.5-5.1) L Chloride Level 108 MMOL/L (98-107) H Carbon Dioxide Level 28 MMOL/L (21-32) Anion Gap 6 mmol/L (5-15) Blood Urea Nitrogen 3 mg/dL (7-18) L Creatinine 0.4 MG/DL (0.55-1.30) L Estimat Glomerular Filtration Rate > 60 mL/min (>60) Glucose Level 123 MG/DL (74-106) H Calcium Level 7.2 MG/DL (8.5-10.1) L Magnesium Level 2.0 MG/DL (1.8-2.4) Clara Billingsley DO Aug 02, 2019 17:13
--- NOTE | 2019-08-02 17:30 | NUR ---
NURSE NOTES: PT family at bedside, PT was cleaned and wiped down, 1 large soft BM, will continue to monitor PT.
--- NOTE | 2019-08-02 19:23 | NUR ---
HAND-OFF: Report and PT given to EMMA Carter.
--- NOTE | 2019-08-02 19:25 | NUR ---
RESPIRATORY NOTE: Received pt on AC 16, 450VT, 80%, PEEP +5. Pt intubated w/ ETT 7.5 @ 23cm lipline, secured by anchorfast. Pt is alert/awake, follows commands. B/S guillermo. rhonchi, sxn small to moderate amounts of thick/thin/frothy, pale-yellow secretions. Both hands on soft restraints to prevent pt from self-extubation. Family present at bedside. Vent plugged into red outlet, ambubag at bedside. Pt in no apparent distress at this time. Will continue to monitor pt.
--- NOTE | 2019-08-02 19:30 | NUR ---
NURSE NOTES: Received pt in no acute distress; awake, alert, follow commands. Orally intubated and appears to be toleratign current vent parameters; fiO2 .80 and saturating 100%. Skin warm, temp 99.5; ST on the monitor BP stable. NGT to Left nare in situ at 60cm level; placement verified; no TF residuals. Abdomen soft, globular; Suprapubic cath intact, draining clear straw urine. PICC on JASON intact; IVF D5NS infuses at 100ml/h. Wound dressings dry and intact. Will continue to monitor; follow through with plan of care.
--- NOTE | 2019-08-02 19:36 | Infectious Diseases Prog Note ---
Assessment/Plan Problems: (1) Pneumonia of both lower lobes Assessment & Plan: with B/L infiltrates worse on the right with hypoxemia , suspect recurrent aspiration , thin yellowish/ frothy secretions from ET , continue meropenem and zyvox coverage for two weeks , repeated sputum culture on 07/31 is negative . aspiration precaution, monitor CXR , may need tube feeding and tracheostomy , D/W family . EOT 08/11/19 (2) Sepsis Assessment & Plan: with streptococcus alpha hemolytic , already on zyvox for pneumonia coverage too , repeated blood culture is negative so far on 07/29 , may need to remove the central line and put a new one, will treat with antibiotics for 2 weeks . EOT 08/11/19 (3) Decubitus skin ulcer Assessment & Plan: of the sacrum, continue off loading and local wound care as per hospital protocol (4) Respiratory failure with hypoxia Assessment & Plan: got worse again , with low O2 on ABG, was reintubated again and on mechanical ventilation , monitor ABG and CXR as per pulmonary , aspiration precaution and keep HOB > 30 DEGREE (5) At risk for aspiration pneumonia Assessment & Plan: aspiration precaution, may benefit from tube feeding , since weak oral phase Subjective ROS Limited/Unobtainable: Yes Allergies: Coded Allergies: PENICILLIN G (Verified Allergy, Unknown, 12/02/18) Tolerates cabapenem, cephalosporin PENICILLINS (Unverified Allergy, Unknown, 12/02/18) Subjective she was still in ICU intubated , on mechanical ventilation due to respiratory distress and possible aspiration , has thin frothy yellowish secretions from her ET tube as per respiratory therapy , awake and responsive , still congested with harsh breathing sounds , no fever or chills , has large bowel movement Objective Vital Signs Last 24 Hour Vital Signs Date Time Temp Pulse Resp B/P (MAP) Pulse Ox O2 Delivery O2 Flow Rate FiO2 08/02/19 19:16 102 20 Mechanical Ventilator 80 80 08/02/19 18:00 87 18 113/64 (80) 100 08/02/19 17:13 84 16 80 08/02/19 17:00 70 16 110/55 (73) 100 08/02/19 16:03 79 16 100 Mechanical Ventilator 80 79 16 80 08/02/19 16:00 80 08/02/19 16:00 81 08/02/19 16:00 98.6 78 16 121/65 (83) 100 08/02/19 15:00 80 16 121/65 (83) 100 08/02/19 14:00 84 16 123/67 (85) 100 08/02/19 13:00 88 16 127/66 (86) 99 08/02/19 12:53 80 16 80 08/02/19 12:00 99.0 88 16 131/69 (89) 98 08/02/19 12:00 83 08/02/19 12:00 80 08/02/19 11:45 82 16 99 Mechanical Ventilator 80 82 16 80 08/02/19 11:00 77 16 106/52 (70) 99 08/02/19 10:00 80 16 110/52 (71) 98 08/02/19 09:29 84 16 80 08/02/19 09:00 100.0 87 16 119/58 (78) 98 08/02/19 09:00 Mechanical Ventilator Mechanical Ventilator 08/02/19 08:00 80 08/02/19 08:00 89 16 115/54 (74) 99 08/02/19 08:00 85 08/02/19 07:29 87 17 99 Mechanical Ventilator 80 87 17 80 08/02/19 07:00 87 17 107/49 (68) 98 08/02/19 06:00 82 17 123/61 (81) 98 08/02/19 05:00 89 16 112/51 (71) 93 08/02/19 04:37 90 16 80 08/02/19 04:00 92 16 109/50 (69) 99 08/02/19 04:00 82 08/02/19 04:00 80 08/02/19 03:10 96 19 99 Mechanical Ventilator 80 95 16 80 08/02/19 03:00 94 19 121/59 (79) 96 08/02/19 02:00 90 16 108/47 (67) 91 08/02/19 01:00 90 20 130/60 (83) 08/02/19 00:34 80 16 80 08/02/19 00:00 80 08/02/19 00:00 83 08/02/19 00:00 90 20 135/65 (88) 93 08/01/19 23:56 91 18 99 Mechanical Ventilator 80 90 16 80 08/01/19 23:00 89 19 121/67 (85) 98 08/01/19 22:00 79 16 112/58 (76) 96 08/01/19 21:00 75 16 106/51 (69) 97 08/01/19 21:00 Mechanical Ventilator Mechanical Ventilator 08/01/19 20:48 76 16 50 08/01/19 20:00 73 08/01/19 20:00 98.9 75 16 106/49 (68) 100 08/01/19 20:00 80 Height (Feet): 4 Height (Inches): 10.00 Weight (Pounds): 162 General Appearance: WD/WN, no acute distress HEENT: normocephalic, atraumatic, anicteric, mucous membranes moist, PERRL Respiratory/Chest: chest wall non-tender, no respiratory distress, no accessory muscle use, decreased breath sounds, expiratory wheezing Cardiovascular: normal peripheral pulses, normal rate, regular rhythm, no gallop/murmur, no JVD Abdomen: normal bowel sounds, soft, non tender, no organomegaly, non distended , no mass, no scars Genitourinary: normal external genitalia Extremities: no cyanosis, no clubbing Skin: no rash, no lesions, ulcers Neurologic/Psychiatric: alert, responsive Lymphatic: no neck adenopathy, no groin adenopathy Musculoskeletal: normal muscle bulk Microbiology Date/Time Source Procedure Growth Status 08/01/19 13:00 Sputum Gram Stain - Final Resulted 08/01/19 13:00 Sputum Sputum Culture Pending Resulted 07/31/19 14:00 Sputum Expectorated Gram Stain - Final Complete 07/31/19 14:00 Sputum Expectorated Sputum Culture - Final NO GROWTH AFTER 48 HOURS Complete Laboratory Tests Test 08/02/19 04:00 08/02/19 04:40 Arterial Blood pH 7.405 (7.350-7.450) Arterial Blood Partial Pressure CO2 46.5 mmHg (35.0-45.0) H Arterial Blood Partial Pressure O2 90.8 mmHg (75.0-100.0) Arterial Blood HCO3 28.5 mmol/L (22.0-26.0) H Arterial Blood Oxygen Saturation 96.3 % (95-100) Arterial Blood Base Excess 3.3 (-2-2) H Gerard Test Positive White Blood Count 12.2 K/UL (4.8-10.8) H Red Blood Count 3.47 M/UL (4.20-5.40) L Hemoglobin 7.5 G/DL (12.0-16.0) L Hematocrit 24.3 % (37.0-47.0) L Mean Corpuscular Volume 70 FL (80-99) L Mean Corpuscular Hemoglobin 21.6 PG (27.0-31.0) L Mean Corpuscular Hemoglobin Concent 30.9 G/DL (32.0-36.0) L Red Cell Distribution Width 17.9 % (11.6-14.8) H Platelet Count 187 K/UL (150-450) Mean Platelet Volume 5.7 FL (6.5-10.1) L Neutrophils (%) (Auto) % (45.0-75.0) Lymphocytes (%) (Auto) % (20.0-45.0) Monocytes (%) (Auto) % (1.0-10.0) Eosinophils (%) (Auto) % (0.0-3.0) Basophils (%) (Auto) % (0.0-2.0) Differential Total Cells Counted 100 Neutrophils % (Manual) 85 % (45-75) H Lymphocytes % (Manual) 10 % (20-45) L Monocytes % (Manual) 4 % (1-10) Eosinophils % (Manual) 1 % (0-3) Basophils % (Manual) 0 % (0-2) Band Neutrophils 0 % (0-8) Platelet Estimate Adequate Platelet Morphology Normal Hypochromasia 2+ Anisocytosis 1+ Sodium Level 142 MMOL/L (136-145) Potassium Level 3.4 MMOL/L (3.5-5.1) L Chloride Level 108 MMOL/L (98-107) H Carbon Dioxide Level 28 MMOL/L (21-32) Anion Gap 6 mmol/L (5-15) Blood Urea Nitrogen 3 mg/dL (7-18) L Creatinine 0.4 MG/DL (0.55-1.30) L Estimat Glomerular Filtration Rate > 60 mL/min (>60) Glucose Level 123 MG/DL (74-106) H Calcium Level 7.2 MG/DL (8.5-10.1) L Magnesium Level 2.0 MG/DL (1.8-2.4) Current Medications Medications (Trade) Dose Ordered Sig/Sandeep Route PRN Reason Start Time Stop Time Status Last Admin Dose Admin Acetaminophen (Tylenol) 650 mg Q6H PRN GT Mild Pain/Temp > 100.5 07/31/19 12:45 08/11/19 12:43 07/31/19 22:23 Acetylcysteine (Mucomyst) [address] [facility] 08/01/19 11:00 08/16/19 18:59 08/02/19 19:16 Albuterol/ Ipratropium (Albuterol/ Ipratropium) 3 ml Q4HRT N 08/02/19 03:00 08/07/19 02:59 08/02/19 19:16 Apixaban (Eliquis) 5 mg BID GT 07/31/19 18:00 08/24/19 18:10 08/02/19 18:01 Chlorhexidine Gluconate (Debora-Hex 2%) 1 applic DAILY@1999 TOPIC 07/31/19 20:00 08/13/19 19:59 08/01/19 20:47 Dextrose/Sodium Chloride 1,000 ml @ 100 mls/hr Q10H IV 07/31/19 12:45 08/27/19 06:14 08/02/19 15:45 Famotidine (Pepcid) 20 mg BID GT 07/31/19 18:00 08/18/19 17:59 08/02/19 18:01 Iron Sucrose 100 mg/Sodium Chloride 60 ml @ 240 mls/hr BEDTIME IV 07/31/19 21:00 08/04/19 21:14 08/01/19 20:47 Linezolid 300 ml @ 300 mls/hr Q12HR@0500,1700 IVPB 07/31/19 17:00 08/11/19 23:59 08/02/19 18:01 Lorazepam (Ativan 2mg/ml 1ml) 2 mg Q4H PRN IV For Anxiety 07/31/19 14:00 08/07/19 13:59 Meropenem 1 gm/ Sodium Chloride 55 ml @ 110 mls/hr Q8H IVPB 07/31/19 18:00 08/11/19 23:59 08/02/19 18:01 Morphine Sulfate (Morphine Sulfate) 4 mg Q4H PRN IVP Severe Pain (Pain Scale 7-10) 07/31/19 14:00 08/07/19 13:59 Pantoprazole (Protonix) 40 mg DAILY IV 08/01/19 09:00 08/31/19 08:59 08/02/19 09:35 Sennosides (Senokot) 8.6 mg BID GT 07/31/19 18:00 08/11/19 08:59 08/02/19 18:01 Gigi Sanabria M.D. Aug 02, 2019 19:36
[2019-08-02] MEDS: Dyna-Hex 2% Top Sol 2oz TOPIC SCH (20:24)
[2019-08-02] MEDS: Iron Sucrose 100 MG in NS 55 ML IV SCH (20:30)
--- NOTE | 2019-08-02 22:00 | NUR ---
NURSE NOTES: Awake, alert but calm; bilat soft wrist restraints maintained as pt was noted to be pulling the ETT/NGT out. fiO2 titrated by RT down to 70%. Sats 96-98%
[2019-08-03] VITALS (24 sets, daily range): BP systolic 90–139; BP diastolic 44–68
--- NOTE | 2019-08-03 | NUR ---
NURSE NOTES: Sleeping with HOB elevated, temp 99.5 axillary. extra covers removed. Tolerates TF. No distress; BP stable
--- NOTE | 2019-08-03 02:00 | NUR ---
NURSE NOTES: Sleeping ,no distress, VSS
[2019-08-03] MEDS: D5NS 1,000 ML IV SCH (02:25)
[2019-08-03] MEDS: Meropenem 1 GM in NS 55 ML IVPB SCH ×3 (02:30→17:55)
[2019-08-03] MEDS: Albuterol/Ipratropium 3ml neb HHN SCH ×6 (03:13→22:53)
[2019-08-03] MEDS: Acetylcysteine 20% Soln 4ml HHN SCH ×6 (03:13→22:53)
--- NOTE | 2019-08-03 04:00 | NUR ---
NURSE NOTES: Incontinent of large amount of loose stools. Attempted to insert Flexiseal but pt has poor sphincter tone and cannot hold it in. Complete bed bath done. Sacral, buttocks area reddish and excoriated due to incontinence of stools. Applied skin barrier cream and kept area dry. Diuresing well. Tolerating TF. Temp 99.8 axillary.
--- NOTE | 2019-08-03 06:59 | NUR ---
HAND-OFF: Report given to Natalie Bashir RN.
--- NOTE | 2019-08-03 07:00 | NUR ---
NURSE NOTES: Late entry: PT and report received from EMMA Carter; received PT sleeping during morning rounds, woken up to name, A/O non-verbal, remains orally intubated ETT 7.5 @ 24cm R-lip, AC 16, TV 450, 70%, peep 5; no S/S of respiratory distress saturating at 100%; PT has JASON double lumen PICC infusing D5NS @ 100cc/hr, both lumens remains patent flushed with 10cc NS; PT has L-NGT at 60cm; infusing vital 1.2 @ goal of 45cc no residual noted, flushed with 30cc water. bus monitor shows SR. Suprapubic catheter remains intact draining. Large loose BM and no fever report by PM shift nurse. Will continue to monitor PT and follow through with plan of care for PT.
--- NOTE | 2019-08-03 07:38 | NUR ---
RESPIRATORY NOTE: Received pt on AC 16, 450VT, 70%, PEEP +5. Pt intubated w/ ETT 7.5 @ 23cm lipline, secured by anchorfast. Pt is alert/awake, follows commands. B/S guillermo. rhonchi, sxn small amounts of thick/thin/froth white tannish secretions without incidents. Both hands on soft restraints to prevent pt from self-extubation. Breathing Tx Duoneb and MM given without any adverse reactions. Vent plugged into red outlet, ambubag at bedside. Pt in no apparent distress at this time. Will continue to monitor pt.
[2019-08-03 07:59] LABS: HEMATOCRIT 21.9 % (37.0-47.0); MEAN CORPUSCULAR VOLUME 71 FL (80-99); PLATELET COUNT 180 K/UL (150-450); RED BLOOD COUNT 3.11 M/UL (4.20-5.40); RED CELL DISTRIBUTION WIDTH 17.8 % (11.6-14.8)
[2019-08-03 08:03] LABS: HEMOGLOBIN 6.6 G/DL (12.0-16.0)
--- NOTE | 2019-08-03 08:05 | General Progress Note ---
Assessment/Plan Problem List: (1) Spina bifida ICD Codes: Q05.9 - Spina bifida, unspecified SNOMED: 41579900 Qualifiers: Qualified Codes: Q05.4 - Unspecified spina bifida with hydrocephalus (2) Respiratory failure with hypoxia ICD Codes: J96.91 - Respiratory failure, unspecified with hypoxia SNOMED: 67455905188131903 Qualifiers: Qualified Codes: J96.21 - Acute and chronic respiratory failure with hypoxia (3) Dysphagia ICD Codes: R13.10 - Dysphagia, unspecified SNOMED: 57328503, 601402308 Status: not improved Assessment/Plan: NOW INTUBATED IN THE icu needs PEG trying to get hold of family for consent for PEG ppi repeat labs fu H&H NGTF for now transfuse one unit PRBC today hold laxatives Subjective ROS Limited/Unobtainable: No Allergies: Coded Allergies: PENICILLIN G (Verified Allergy, Unknown, 12/02/18) Tolerates cabapenem, cephalosporin PENICILLINS (Unverified Allergy, Unknown, 12/02/18) Objective Last 24 Hour Vital Signs Date Time Temp Pulse Resp B/P (MAP) Pulse Ox O2 Delivery O2 Flow Rate FiO2 08/03/19 06:21 78 16 08/03/19 06:00 78 16 112/53 (72) 100 08/03/19 05:05 81 16 70 08/03/19 05:00 80 16 105/48 (67) 100 08/03/19 04:00 70 08/03/19 04:00 Mechanical Ventilator Mechanical Ventilator 08/03/19 04:00 99.8 94 16 115/46 (69) 100 08/03/19 04:00 80 08/03/19 03:33 93 17 100 Mechanical Ventilator 70 08/03/19 03:13 93 19 Mechanical Ventilator 70 70 08/03/19 03:00 93 21 120/62 (81) 08/03/19 02:00 95 17 103/53 (70) 98 08/03/19 01:03 87 17 70 08/03/19 01:00 84 16 96/50 (65) 93 08/03/19 00:05 70 08/03/19 00:05 81 08/03/19 00:00 99.5 79 16 93/54 (67) 96 08/03/19 00:00 Mechanical Ventilator Mechanical Ventilator 08/02/19 23:35 84 16 99 Mechanical Ventilator 70 08/02/19 23:15 86 17 Mechanical Ventilator 70 70 08/02/19 23:00 87 19 107/53 (71) 100 08/02/19 22:00 88 18 111/54 (73) 100 08/02/19 21:10 92 19 70 08/02/19 21:00 93 22 120/59 (79) 99 08/02/19 20:00 Mechanical Ventilator Mechanical Ventilator 08/02/19 20:00 80 08/02/19 20:00 97 19 121/57 (78) 99 08/02/19 20:00 97 08/02/19 19:36 81 19 100 Mechanical Ventilator 80 08/02/19 19:16 102 20 Mechanical Ventilator 80 80 08/02/19 19:00 99.5 101 19 106/54 (71) 100 08/02/19 18:00 87 18 113/64 (80) 100 08/02/19 17:13 84 16 80 08/02/19 17:00 70 16 110/55 (73) 100 08/02/19 16:03 79 16 100 Mechanical Ventilator 80 79 16 80 08/02/19 16:00 80 08/02/19 16:00 81 08/02/19 16:00 98.6 78 16 121/65 (83) 100 08/02/19 15:00 80 16 121/65 (83) 100 08/02/19 14:00 84 16 123/67 (85) 100 08/02/19 13:00 88 16 127/66 (86) 99 08/02/19 12:53 80 16 80 08/02/19 12:00 99.0 88 16 131/69 (89) 98 08/02/19 12:00 83 08/02/19 12:00 80 08/02/19 11:45 82 16 99 Mechanical Ventilator 80 82 16 80 08/02/19 11:00 77 16 106/52 (70) 99 08/02/19 10:00 80 16 110/52 (71) 98 08/02/19 09:29 84 16 80 08/02/19 09:00 100.0 87 16 119/58 (78) 98 08/02/19 09:00 Mechanical Ventilator Mechanical Ventilator Intake and Output 08/02/19 08/03/19 19:00 07:00 Intake Total 1725 ml 2410 ml Output Total 840 ml 1575 ml Balance 885 ml 835 ml IV Total 1135 ml 1915 ml Tube Feeding 540 ml 495 ml Other 50 ml Output Urine Total 840 ml 1575 ml # Bowel Movements 1 2 Laboratory Tests 08/03/19 06:00: White Blood Count [Pending], Red Blood Count [Pending], Hemoglobin [Pending], Hematocrit [Pending], Mean Corpuscular Volume [Pending], Mean Corpuscular Hemoglobin [Pending], Mean Corpuscular Hemoglobin Concent [Pending], Red Cell Distribution Width [Pending], Platelet Count [Pending], Mean Platelet Volume [ Pending], Neutrophils (%) (Auto) [Pending], Lymphocytes (%) (Auto) [Pending], Monocytes (%) (Auto) [Pending], Eosinophils (%) (Auto) [Pending], Basophils (%) (Auto) [Pending], Sodium Level [Pending], Potassium Level [Pending], Chloride Level [Pending], Carbon Dioxide Level [Pending], Blood Urea Nitrogen [Pending], Creatinine [Pending], Estimat Glomerular Filtration Rate [Pending], Glucose Level [Pending], Calcium Level [Pending] Height (Feet): 4 Height (Inches): 10.00 Weight (Pounds): 167 General Appearance: lethargic EENT: normal ENT inspection Neck: supple Cardiovascular: normal rate Respiratory/Chest: decreased breath sounds Abdomen: normal bowel sounds, non tender, soft Extremities: non-tender Tim Davis MD Aug 03, 2019 08:05
[2019-08-03 08:18] LABS: ANION GAP 6 mmol/L (5-15); BLOOD UREA NITROGEN 4 mg/dL (7-18); CALCIUM 7.1 MG/DL (8.5-10.1); CARBON DIOXIDE 29 MMOL/L (21-32); CHLORIDE 106 MMOL/L (98-107); CREATININE 0.4 MG/DL (0.55-1.30); SODIUM 142 MMOL/L (136-145)
[2019-08-03 08:19] LABS: POTASSIUM 2.7 MMOL/L (3.5-5.1)
--- NOTE | 2019-08-03 08:40 | NUR ---
NURSE NOTES: Late entry: Two RN telephone consent for 1u pRBC transfusion done with brother of PT. Secondary nurse, EMMA Tucker present to get verification from PT brother. Paperwork placed inside of PT folder. RENNY Garcia made aware.
--- NOTE | 2019-08-03 08:50 | NUR ---
NURSE NOTES: MD Susan ordered 1u pRBC; and Potassium chloride 40mEq IV once for PT low K level. Will place orders on behalf of .
[2019-08-03] MEDS: Pantoprazole Inj IV SCH (09:31)
[2019-08-03] MEDS: Eliquis 5mg tablet GT SCH ×2 (09:32→17:54)
[2019-08-03] MEDS: Acetaminophen 650mg/20.3ml GT PRN (09:32)
[2019-08-03] MEDS ORDERED: DiphenhydrAMINE 25mg Tab ORAL ONE (10:00)
--- NOTE | 2019-08-03 11:30 | NUR ---
NURSE NOTES: PT had large watery BM possibly due to stool softner; MD Susan made aware; will continue to monitor PT and keep PT dry and clean. Total linens changed, creamed posterior sacral area with wipes, dried, applied A&D and Calazime cream to posterior sacral area.
--- NOTE | 2019-08-03 12:41 | NUR ---
NURSE NOTES: PT cooling measures effective, will continue to monitor PT for elevated temperature throughout blood transfusion process.
--- NOTE | 2019-08-03 14:30 | Infectious Diseases Prog Note ---
Assessment/Plan Problems: (1) Pneumonia of both lower lobes Assessment & Plan: with B/L infiltrates worse on the right with hypoxemia , suspect recurrent aspiration , continue meropenem and zyvox coverage for two weeks , repeated sputum culture on 07/31 and 08/01 are negative for pathogens . aspiration precaution, monitor CXR , may need tube feeding and tracheostomy , D/ W family . EOT 08/11/19 (2) Sepsis Assessment & Plan: with streptococcus alpha hemolytic , already on zyvox for pneumonia coverage too , repeated blood culture is negative so far on 07/29 which confirm clearance , may need to remove the central line and put a new one , will treat with antibiotics for 2 weeks . EOT 08/11/19 (3) Decubitus skin ulcer Assessment & Plan: of the sacrum, continue off loading and local wound care as per hospital protocol (4) Respiratory failure with hypoxia Assessment & Plan: got worse again , with low O2 on ABG, was reintubated again and started on mechanical ventilation , monitor ABG and CXR as per pulmonary , aspiration precaution and keep HOB > 30 DEGREE (5) At risk for aspiration pneumonia Assessment & Plan: aspiration precaution, may benefit from tube feeding , since weak oral phase (6) Diarrhea Assessment & Plan: rule out C diff , will order stool for C diff toxin , keep contact isolation (7) Fever Assessment & Plan: rule out resistant bacteria, VS Fungal infection , VS C diff , already on wide spectrum antibiotics , will add micafungin empirically and send blood culture x 2 , and urine culture (8) Anemia Assessment & Plan: recurrent , rule out GI source VS alveolar hemorrhage, recommend to stop eliquis , with close monitor of H/H, and transfusion as needed . GI work up Assessment/Plan D/W RN, and consultants Subjective Constitutional: Reports: fever, fatigue Respiratory: Reports: other - clear secretions Breasts: Reports: no symptoms Cardiovascular: Reports: no symptoms Gastrointestinal/Abdominal: Reports: diarrhea, bloating Genitourinary: Reports: no symptoms Neurologic: Reports: weakness Psychiatric: Reports: no symptoms Skin: Reports: other - redness with erythema in the cruz anal area Endocrine: Reports: no symptoms Hematologic: Reports: no symptoms Musculoskeletal: Reports: no symptoms Allergies: Coded Allergies: PENICILLIN G (Verified Allergy, Unknown, 12/02/18) Tolerates cabapenem, cephalosporin PENICILLINS (Unverified Allergy, Unknown, 12/02/18) Subjective she was still in ICU intubated , on mechanical ventilation due to respiratory distress and possible aspiration , has thin white secretions from her ET tube , fully awake and responsive , still congested with diffuse wheezing , spiked fever again , no chills , has large bowel movement today with diarrhea Objective Vital Signs Last 24 Hour Vital Signs Date Time Temp Pulse Resp B/P (MAP) Pulse Ox O2 Delivery O2 Flow Rate FiO2 08/03/19 13:10 75 16 65 08/03/19 12:00 99.5 84 16 114/55 (74) 100 08/03/19 12:00 60 08/03/19 11:12 83 18 100 Mechanical Ventilator 60 83 16 70 08/03/19 11:00 99.5 79 16 111/51 (71) 100 08/03/19 10:15 99.5 08/03/19 10:00 81 17 113/54 (73) 100 08/03/19 09:00 89 20 117/56 (76) 100 08/03/19 09:00 88 16 65 08/03/19 08:00 78 08/03/19 08:00 101.5 77 16 126/55 (78) 100 08/03/19 08:00 70 08/03/19 07:38 80 17 100 Mechanical Ventilator 70 84 16 70 08/03/19 07:00 82 18 119/58 (78) 100 08/03/19 06:21 78 16 08/03/19 06:00 78 16 112/53 (72) 100 08/03/19 05:05 81 16 70 08/03/19 05:00 80 16 105/48 (67) 100 08/03/19 04:00 70 08/03/19 04:00 Mechanical Ventilator Mechanical Ventilator 08/03/19 04:00 99.8 94 16 115/46 (69) 100 08/03/19 04:00 80 08/03/19 03:33 93 17 100 Mechanical Ventilator 70 08/03/19 03:13 93 19 Mechanical Ventilator 70 70 08/03/19 03:00 93 21 120/62 (81) 08/03/19 02:00 95 17 103/53 (70) 98 08/03/19 01:03 87 17 70 08/03/19 01:00 84 16 96/50 (65) 93 08/03/19 00:05 70 08/03/19 00:05 81 08/03/19 00:00 99.5 79 16 93/54 (67) 96 08/03/19 00:00 Mechanical Ventilator Mechanical Ventilator 08/02/19 23:35 84 16 99 Mechanical Ventilator 70 08/02/19 23:15 86 17 Mechanical Ventilator 70 70 08/02/19 23:00 87 19 107/53 (71) 100 08/02/19 22:00 88 18 111/54 (73) 100 08/02/19 21:10 92 19 70 08/02/19 21:00 93 22 120/59 (79) 99 08/02/19 20:00 Mechanical Ventilator Mechanical Ventilator 08/02/19 20:00 80 08/02/19 20:00 97 19 121/57 (78) 99 08/02/19 20:00 97 08/02/19 19:36 81 19 100 Mechanical Ventilator 80 08/02/19 19:16 102 20 Mechanical Ventilator 80 80 08/02/19 19:00 99.5 101 19 106/54 (71) 100 08/02/19 18:00 87 18 113/64 (80) 100 08/02/19 17:13 84 16 80 08/02/19 17:00 70 16 110/55 (73) 100 08/02/19 16:03 79 16 100 Mechanical Ventilator 80 79 16 80 08/02/19 16:00 80 08/02/19 16:00 81 08/02/19 16:00 98.6 78 16 121/65 (83) 100 08/02/19 15:00 80 16 121/65 (83) 100 Height (Feet): 4 Height (Inches): 10.00 Weight (Pounds): 167 General Appearance: WD/WN, no acute distress HEENT: normocephalic, atraumatic, anicteric, mucous membranes moist, PERRL, supple, no JVD, other - intubated Respiratory/Chest: chest wall non-tender, no respiratory distress, no accessory muscle use, decreased breath sounds, crackles/rales, expiratory wheezing Cardiovascular: normal peripheral pulses, normal rate, regular rhythm, no gallop/murmur, no JVD Abdomen: normal bowel sounds, soft, non tender, no organomegaly, non distended , no mass, no scars Extremities: no cyanosis, no clubbing Skin: no rash, no lesions, other - cruz anal erythema Neurologic/Psychiatric: beef grinder II-XII grossly normal, alert, responsive Lymphatic: no neck adenopathy, no groin adenopathy Musculoskeletal: normal muscle bulk, no effusion Microbiology Date/Time Source Procedure Growth Status 08/01/19 16:00 Blood Blood Culture - Preliminary NO GROWTH AFTER 24 HOURS Resulted 08/01/19 15:30 Blood Blood Culture - Preliminary NO GROWTH AFTER 24 HOURS Resulted 08/01/19 13:00 Sputum Gram Stain - Final Complete 08/01/19 13:00 Sputum Sputum Culture - Final NO GROWTH AFTER 48 HOURS Complete Laboratory Tests Test 08/03/19 06:00 White Blood Count 10.0 K/UL (4.8-10.8) Red Blood Count 3.11 M/UL (4.20-5.40) L Hemoglobin 6.6 G/DL (12.0-16.0) *L Hematocrit 21.9 % (37.0-47.0) L Mean Corpuscular Volume 71 FL (80-99) L Mean Corpuscular Hemoglobin 21.4 PG (27.0-31.0) L Mean Corpuscular Hemoglobin Concent 30.3 G/DL (32.0-36.0) L Red Cell Distribution Width 17.8 % (11.6-14.8) H Platelet Count 180 K/UL (150-450) Mean Platelet Volume 6.0 FL (6.5-10.1) L Neutrophils (%) (Auto) % (45.0-75.0) Lymphocytes (%) (Auto) % (20.0-45.0) Monocytes (%) (Auto) % (1.0-10.0) Eosinophils (%) (Auto) % (0.0-3.0) Basophils (%) (Auto) % (0.0-2.0) Differential Total Cells Counted 100 Neutrophils % (Manual) 74 % (45-75) Lymphocytes % (Manual) 18 % (20-45) L Monocytes % (Manual) 4 % (1-10) Eosinophils % (Manual) 4 % (0-3) H Basophils % (Manual) 0 % (0-2) Band Neutrophils 0 % (0-8) Platelet Estimate Adequate Platelet Morphology Normal Hypochromasia 1+ Anisocytosis 1+ Microcytosis 1+ Sodium Level 142 MMOL/L (136-145) Potassium Level 2.7 MMOL/L (3.5-5.1) *L Chloride Level 106 MMOL/L (98-107) Carbon Dioxide Level 29 MMOL/L (21-32) Anion Gap 6 mmol/L (5-15) Blood Urea Nitrogen 4 mg/dL (7-18) L Creatinine 0.4 MG/DL (0.55-1.30) L Estimat Glomerular Filtration Rate > 60 mL/min (>60) Glucose Level 192 MG/DL (74-106) H Calcium Level 7.1 MG/DL (8.5-10.1) L Phosphorus Level 2.2 MG/DL (2.5-4.9) L Current Medications Medications (Trade) Dose Ordered Sig/Sandeep Route PRN Reason Start Time Stop Time Status Last Admin Dose Admin Acetaminophen (Tylenol) 650 mg Q6H PRN GT Mild Pain/Temp > 100.5 07/31/19 12:45 08/11/19 12:43 08/03/19 09:32 Acetylcysteine (Mucomyst) 400 mg Q4HRT [facility] 08/01/19 11:00 08/16/19 18:59 08/03/19 10:52 Albuterol/ Ipratropium (Albuterol/ Ipratropium) 3 ml Q4HRT [facility] 08/02/19 03:00 08/07/19 02:59 08/03/19 10:52 Apixaban (Eliquis) 5 mg BID GT 07/31/19 18:00 08/24/19 18:10 08/03/19 09:32 Chlorhexidine Gluconate (Debora-Hex 2%) 1 applic DAILY@2000 TOPIC 07/31/19 20:00 08/13/19 19:59 08/02/19 20:24 Famotidine (Pepcid) 20 mg BID GT 07/31/19 18:00 08/18/19 17:59 08/03/19 09:31 Iron Sucrose 100 mg/Sodium Chloride 60 ml @ 240 mls/hr BEDTIME IV 07/31/19 21:00 08/04/19 21:14 08/02/19 20:30 Linezolid 300 ml @ 300 mls/hr Q12HR@0500,1700 IVPB 07/31/19 17:00 08/11/19 23:59 08/03/19 04:50 Lorazepam (Ativan 2mg/ml 1ml) 2 mg Q4H PRN IV For Anxiety 07/31/19 14:00 08/07/19 13:59 Meropenem 1 gm/ Sodium Chloride 55 ml @ 110 mls/hr Q8H IVPB 07/31/19 18:00 08/11/19 23:59 08/03/19 09:31 Micafungin Sodium 100 mg/Sodium Chloride 110 ml @ 110 mls/hr Q24H IVPB 08/03/19 16:00 08/10/19 15:59 Morphine Sulfate (Morphine Sulfate) 4 mg Q4H PRN IVP Severe Pain (Pain Scale 7-10) 07/31/19 14:00 08/07/19 13:59 Pantoprazole (Protonix) 40 mg DAILY IV 08/01/19 09:00 08/31/19 08:59 08/03/19 09:31 Gigi Sanabria M.D. Aug 03, 2019 14:30
--- NOTE | 2019-08-03 16:00 | NUR ---
NURSE NOTES: MD Daniele order BC from PICC, BC from peripheral, urine culture, stool culture. All labs collected sent and dropped off by EMMA Tucker.
--- NOTE | 2019-08-03 16:13 | Internal Med Progress Note ---
Subjective Date of Service: Aug 03, 2019 Physician Name Niraj Teixeira Attending Physician Wil Masters MD Current Medications Medications (Trade) Dose Ordered Sig/Sandeep Route PRN Reason Start Time Stop Time Status Last Admin Dose Admin Acetaminophen (Tylenol) 650 mg Q6H PRN GT Mild Pain/Temp > 100.5 07/31/19 12:45 08/11/19 12:43 08/03/19 09:32 Acetylcysteine (Mucomyst) 400 mg Q4HRT N 08/01/19 11:00 08/16/19 18:59 08/03/19 15:33 Albuterol/ Ipratropium (Albuterol/ Ipratropium) 3 ml Q4HRT N 08/02/19 03:00 08/07/19 02:59 08/03/19 15:33 Apixaban (Eliquis) 5 mg BID GT 07/31/19 18:00 08/24/19 18:10 08/03/19 09:32 Chlorhexidine Gluconate (Deboar-Hex 2%) 1 applic DAILY@2000 TOPIC 07/31/19 20:00 08/13/19 19:59 08/02/19 20:24 Famotidine (Pepcid) 20 mg BID GT 07/31/19 18:00 08/18/19 17:59 08/03/19 09:31 Iron Sucrose 100 mg/Sodium Chloride 60 ml @ 240 mls/hr BEDTIME IV 07/31/19 21:00 08/04/19 21:14 08/02/19 20:30 Linezolid 300 ml @ 300 mls/hr Q12HR@0500,1700 IVPB 07/31/19 17:00 08/11/19 23:59 08/03/19 04:50 Lorazepam (Ativan 2mg/ml 1ml) 2 mg Q4H PRN IV For Anxiety 07/31/19 14:00 08/07/19 13:59 Meropenem 1 gm/ Sodium Chloride 55 ml @ 110 mls/hr Q8H IVPB 07/31/19 18:00 08/11/19 23:59 08/03/19 09:31 Micafungin Sodium 100 mg/Sodium Chloride 110 ml @ 110 mls/hr Q24H IVPB 08/03/19 16:00 08/10/19 15:59 Morphine Sulfate (Morphine Sulfate) 4 mg Q4H PRN IVP Severe Pain (Pain Scale 7-10) 07/31/19 14:00 08/07/19 13:59 Pantoprazole (Protonix) 40 mg DAILY IV 08/01/19 09:00 08/31/19 08:59 08/03/19 09:31 Allergies: Coded Allergies: PENICILLIN G (Verified Allergy, Unknown, 12/02/18) Tolerates cabapenem, cephalosporin PENICILLINS (Unverified Allergy, Unknown, 12/02/18) ROS Limited/Unobtainable: Yes Subjective 49 YO F with pneumonia and respiratory failure. Intubated and sedated. Cover for Int Conor-DR Masters. ICU Objective Last Vital Signs Date Time Temp Pulse Resp B/P (MAP) Pulse Ox O2 Delivery O2 Flow Rate FiO2 08/03/19 15:30 76 17 100 Mechanical Ventilator 60 76 19 60 08/03/19 15:00 126/66 (86) 08/03/19 12:00 99.5 07/27/19 04:00 4.0 Laboratory Tests Test 08/03/19 06:00 White Blood Count 10.0 K/UL (4.8-10.8) Red Blood Count 3.11 M/UL (4.20-5.40) L Hemoglobin 6.6 G/DL (12.0-16.0) *L Hematocrit 21.9 % (37.0-47.0) L Mean Corpuscular Volume 71 FL (80-99) L Mean Corpuscular Hemoglobin 21.4 PG (27.0-31.0) L Mean Corpuscular Hemoglobin Concent 30.3 G/DL (32.0-36.0) L Red Cell Distribution Width 17.8 % (11.6-14.8) H Platelet Count 180 K/UL (150-450) Mean Platelet Volume 6.0 FL (6.5-10.1) L Neutrophils (%) (Auto) % (45.0-75.0) Lymphocytes (%) (Auto) % (20.0-45.0) Monocytes (%) (Auto) % (1.0-10.0) Eosinophils (%) (Auto) % (0.0-3.0) Basophils (%) (Auto) % (0.0-2.0) Differential Total Cells Counted 100 Neutrophils % (Manual) 74 % (45-75) Lymphocytes % (Manual) 18 % (20-45) L Monocytes % (Manual) 4 % (1-10) Eosinophils % (Manual) 4 % (0-3) H Basophils % (Manual) 0 % (0-2) Band Neutrophils 0 % (0-8) Platelet Estimate Adequate Platelet Morphology Normal Hypochromasia 1+ Anisocytosis 1+ Microcytosis 1+ Sodium Level 142 MMOL/L (136-145) Potassium Level 2.7 MMOL/L (3.5-5.1) *L Chloride Level 106 MMOL/L (98-107) Carbon Dioxide Level 29 MMOL/L (21-32) Anion Gap 6 mmol/L (5-15) Blood Urea Nitrogen 4 mg/dL (7-18) L Creatinine 0.4 MG/DL (0.55-1.30) L Estimat Glomerular Filtration Rate > 60 mL/min (>60) Glucose Level 192 MG/DL (74-106) H Calcium Level 7.1 MG/DL (8.5-10.1) L Phosphorus Level 2.2 MG/DL (2.5-4.9) L Microbiology Date/Time Source Procedure Growth Status 08/01/19 16:00 Blood Blood Culture - Preliminary NO GROWTH AFTER 24 HOURS Resulted 08/01/19 15:30 Blood Blood Culture - Preliminary NO GROWTH AFTER 24 HOURS Resulted 08/01/19 13:00 Sputum Gram Stain - Final Complete 08/01/19 13:00 Sputum Sputum Culture - Final NO GROWTH AFTER 48 HOURS Complete Intake and Output 08/02/19 08/03/19 19:00 07:00 Intake Total 1725 ml 2455 ml Output Total 840 ml 1705 ml Balance 885 ml 750 ml IV Total 1135 ml 1915 ml Tube Feeding 540 ml 540 ml Other 50 ml Output Urine Total 840 ml 1705 ml # Bowel Movements 1 2 Objective General Appearance: WD/WN, moderate distress EENT: PERRL/EOMI, normal ENT inspection Neck: non-tender, normal alignment, supple Cardiovascular: normal peripheral pulses, normal rate, regular rhythm, no gallop/murmur, no JVD Respiratory/Chest: Mech Vent; crackles/rales, rhonchi - bilaterally, expiratory wheezing Abdomen: normal bowel sounds, non tender, soft, no organomegaly, no mass Skin: normal pigmentation, warm/dry Assessment/Plan Problem List: (1) Respiratory failure with hypoxia Assessment & Plan: Mechanical vent per pulmonary=Dr Bonilla (2) Pneumonia of both lower lobes Assessment & Plan: See ID note. Continue meropenem and zyvox (3) UTI (urinary tract infection) Assessment & Plan: Pseudamonas, ESBL E. Coli, and vanco resistant enterococcus. See ID=Dr Sanabria. Continue meropenem, linezolid and micafugin (4) Sepsis (5) Paraplegia (6) Spina bifida Niraj Teixeira MD Aug 03, 2019 16:13
[2019-08-03] MEDS: Micafungin 100 MG in NS 110 ML IVPB SCH (16:41)
[2019-08-03] MEDS ORDERED: Tubing Blood Filter IV ONE (17:35)
[2019-08-03] MEDS ORDERED: NS 275ml ONE (17:35)
[2019-08-03] MEDS ORDERED: Tubing IV Secondary IV ONE (17:35)
--- NOTE | 2019-08-03 17:56 | Pulmonolgy Critical Care Note ---
Critical Care - Asmt/Plan Assessment/Plan: Assessment/Plan: (1) Pneumonia of both lower lobes Assessment & Plan: VDRF, intubated 07/12/19, S/P FOB 07/12/19; Reintubated (2) Catheter-associated urinary tract infection Assessment & Plan: PsA and proteus (3) Respiratory failure with hypoxia Assessment & Plan: Acute on chronic hypercapnic and hypoxemic RF 2/2 PNA VDRF as able Duplex neg, minimally elevated d-dimer, unlikely VTE and already on a NOAC (4) HCAP (healthcare-associated pneumonia) (5) Paraplegia (6) Sepsis (7) Suprapubic catheter (8) Restrictive lung disease due to kyphoscoliosis (9) Decubitus skin ulcer (10) Spina bifida (11) UTI (12) severe anemia Plan: * still unclear why pt is on AC [employer], but with current decline in HH will hold. * check stat duplex * cxr in am * cont mechanical ventilatory support, wean as tolerated * Check ABG * Abx per ID * send tracheal aspirate * Good pulmonary hygiene: duonebs and mucomyst q4 * Replete electrolytes * given the recurrent nature of this patient's respiratory failure, if not able to get extubated quickly, may need tracheostomy * needs PEG tube * Unclear if will be able to transfer to [facility] as no bed available there Respiratory: CXR, ABG Cardiac: continue to monitor HR/BP Infectious Disease: check cultures, continue antibiotics Gastrointestinal: continue feedings/current rate Affect: PRN ativan Prophylaxis: Protonix Disposition: keep in ICU Time Spent (Minutes): 40 Discussed with: nurses Critical Care - Objective Last 24 Hour Vital Signs Date Time Temp Pulse Resp B/P (MAP) Pulse Ox O2 Delivery O2 Flow Rate FiO2 08/03/19 17:42 80 19 60 08/03/19 17:00 82 17 90/55 (67) 99 08/03/19 16:00 60 08/03/19 16:00 99.7 77 16 120/56 (77) 100 08/03/19 15:30 76 17 100 Mechanical Ventilator 60 76 19 60 08/03/19 15:00 75 18 126/66 (86) 100 08/03/19 14:00 78 18 139/68 (91) 100 08/03/19 13:10 75 16 65 08/03/19 13:00 72 16 107/53 (71) 100 08/03/19 12:00 99.5 84 16 114/55 (74) 100 08/03/19 12:00 80 08/03/19 12:00 60 08/03/19 11:12 83 18 100 Mechanical Ventilator 60 83 16 70 08/03/19 11:00 99.5 79 16 111/51 (71) 100 08/03/19 10:15 99.5 08/03/19 10:00 81 17 113/54 (73) 100 08/03/19 09:00 89 20 117/56 (76) 100 08/03/19 09:00 88 16 65 08/03/19 08:00 78 08/03/19 08:00 101.5 77 16 126/55 (78) 100 08/03/19 08:00 70 08/03/19 07:38 80 17 100 Mechanical Ventilator 70 84 16 70 08/03/19 07:00 82 18 119/58 (78) 100 08/03/19 06:21 78 16 08/03/19 06:00 78 16 112/53 (72) 100 08/03/19 05:05 81 16 70 08/03/19 05:00 80 16 105/48 (67) 100 08/03/19 04:00 70 08/03/19 04:00 Mechanical Ventilator Mechanical Ventilator 08/03/19 04:00 99.8 94 16 115/46 (69) 100 08/03/19 04:00 80 08/03/19 03:33 93 17 100 Mechanical Ventilator 70 08/03/19 03:13 93 19 Mechanical Ventilator 70 70 08/03/19 03:00 93 21 120/62 (81) 08/03/19 02:00 95 17 103/53 (70) 98 08/03/19 01:03 87 17 70 08/03/19 01:00 84 16 96/50 (65) 93 08/03/19 00:05 70 08/03/19 00:05 81 08/03/19 00:00 99.5 79 16 93/54 (67) 96 08/03/19 00:00 Mechanical Ventilator Mechanical Ventilator 08/02/19 23:35 84 16 99 Mechanical Ventilator 70 08/02/19 23:15 86 17 Mechanical Ventilator 70 70 08/02/19 23:00 87 19 107/53 (71) 100 08/02/19 22:00 88 18 111/54 (73) 100 08/02/19 21:10 92 19 70 08/02/19 21:00 93 22 120/59 (79) 99 08/02/19 20:00 Mechanical Ventilator Mechanical Ventilator 08/02/19 20:00 80 08/02/19 20:00 97 19 121/57 (78) 99 08/02/19 20:00 97 08/02/19 19:36 81 19 100 Mechanical Ventilator 80 08/02/19 19:16 102 20 Mechanical Ventilator 80 80 08/02/19 19:00 99.5 101 19 106/54 (71) 100 08/02/19 18:00 87 18 113/64 (80) 100 Status: awake Condition: critical Heart: HR/BP unstable Abdomen: soft, non-tender Extremities: edema Decubiti: location Micro: Microbiology Date/Time Source Procedure Growth Status 08/01/19 16:00 Blood Blood Culture - Preliminary NO GROWTH AFTER 24 HOURS Resulted 08/01/19 15:30 Blood Blood Culture - Preliminary NO GROWTH AFTER 24 HOURS Resulted 08/01/19 13:00 Sputum Gram Stain - Final Complete 08/01/19 13:00 Sputum Sputum Culture - Final NO GROWTH AFTER 48 HOURS Complete Accucheck: 114 Critical Care - Subjective ROS Limited/Unobtainable: Yes Condition: critical FI02: 60 Vent Support Breath Rate: 16 Vent Support Mode: AC Vent Tidal Volume: 450 Sputum Amount: Moderate PEEP: 5.0 PIP: 30 Tube Feeding Amount: 45 I&O: Intake and Output 08/02/19 08/03/19 19:00 07:00 Intake Total 1725 ml 2455 ml Output Total 840 ml 1705 ml Balance 885 ml 750 ml IV Total 1135 ml 1915 ml Tube Feeding 540 ml 540 ml Other 50 ml Output Urine Total 840 ml 1705 ml # Bowel Movements 1 2 Subjective: on the vent awake positive secretions less than yesterday positive uop no fever positive uop no distress ET-Tube: 7.5 ET Position: 24 Labs: Current Medications Medications (Trade) Dose Ordered Sig/Sandeep Route PRN Reason Start Time Stop Time Status Last Admin Dose Admin Acetaminophen (Tylenol) 650 mg Q6H PRN GT Mild Pain/Temp > 100.5 07/31/19 12:45 08/11/19 12:43 08/03/19 09:32 Acetylcysteine (Mucomyst) 400 mg Q4HRT N 08/01/19 11:00 08/16/19 18:59 08/03/19 15:33 Albuterol/ Ipratropium (Albuterol/ Ipratropium) 3 ml Q4HRT N 08/02/19 03:00 08/07/19 02:59 08/03/19 15:33 Apixaban (Eliquis) 5 mg BID GT 07/31/19 18:00 08/24/19 18:10 08/03/19 09:32 Chlorhexidine Gluconate (Debora-Hex 2%) 1 applic DAILY@2000 TOPIC 07/31/19 20:00 08/13/19 19:59 08/02/19 20:24 Famotidine (Pepcid) 20 mg BID GT 07/31/19 18:00 08/18/19 17:59 08/03/19 09:31 Iron Sucrose 100 mg/Sodium Chloride 60 ml @ 240 mls/hr BEDTIME IV 07/31/19 21:00 08/04/19 21:14 08/02/19 20:30 Linezolid 300 ml @ 300 mls/hr Q12HR@0500,1700 IVPB 07/31/19 17:00 08/11/19 23:59 08/03/19 16:40 Lorazepam (Ativan 2mg/ml 1ml) 2 mg Q4H PRN IV For Anxiety 07/31/19 14:00 08/07/19 13:59 Meropenem 1 gm/ Sodium Chloride 55 ml @ 110 mls/hr Q8H IVPB 07/31/19 18:00 08/11/19 23:59 08/03/19 09:31 Micafungin Sodium 100 mg/Sodium Chloride 110 ml @ 110 mls/hr Q24H IVPB 08/03/19 16:00 08/10/19 15:59 08/03/19 16:41 Morphine Sulfate (Morphine Sulfate) 4 mg Q4H PRN IVP Severe Pain (Pain Scale 7-10) 07/31/19 14:00 08/07/19 13:59 Pantoprazole (Protonix) 40 mg DAILY IV 08/01/19 09:00 08/31/19 08:59 08/03/19 09:31 Laboratory Tests Test 08/03/19 06:00 White Blood Count 10.0 K/UL (4.8-10.8) Red Blood Count 3.11 M/UL (4.20-5.40) L Hemoglobin 6.6 G/DL (12.0-16.0) *L Hematocrit 21.9 % (37.0-47.0) L Mean Corpuscular Volume 71 FL (80-99) L Mean Corpuscular Hemoglobin 21.4 PG (27.0-31.0) L Mean Corpuscular Hemoglobin Concent 30.3 G/DL (32.0-36.0) L Red Cell Distribution Width 17.8 % (11.6-14.8) H Platelet Count 180 K/UL (150-450) Mean Platelet Volume 6.0 FL (6.5-10.1) L Neutrophils (%) (Auto) % (45.0-75.0) Lymphocytes (%) (Auto) % (20.0-45.0) Monocytes (%) (Auto) % (1.0-10.0) Eosinophils (%) (Auto) % (0.0-3.0) Basophils (%) (Auto) % (0.0-2.0) Differential Total Cells Counted 100 Neutrophils % (Manual) 74 % (45-75) Lymphocytes % (Manual) 18 % (20-45) L Monocytes % (Manual) 4 % (1-10) Eosinophils % (Manual) 4 % (0-3) H Basophils % (Manual) 0 % (0-2) Band Neutrophils 0 % (0-8) Platelet Estimate Adequate Platelet Morphology Normal Hypochromasia 1+ Anisocytosis 1+ Microcytosis 1+ Sodium Level 142 MMOL/L (136-145) Potassium Level 2.7 MMOL/L (3.5-5.1) *L Chloride Level 106 MMOL/L (98-107) Carbon Dioxide Level 29 MMOL/L (21-32) Anion Gap 6 mmol/L (5-15) Blood Urea Nitrogen 4 mg/dL (7-18) L Creatinine 0.4 MG/DL (0.55-1.30) L Estimat Glomerular Filtration Rate > 60 mL/min (>60) Glucose Level 192 MG/DL (74-106) H Calcium Level 7.1 MG/DL (8.5-10.1) L Phosphorus Level 2.2 MG/DL (2.5-4.9) L Clara Billingsley DO Aug 03, 2019 17:56
--- NOTE | 2019-08-03 18:53 | NUR ---
NURSE NOTES: PT vent alarm activated, found PT moving and thrashing head side to side, disconnected from vent; immediately reconnected PT back to vent, assessed PT VS, VS stable, oxygen saturation 100%, no S/S of respiratory distress noted. Will continue to monitor PT.
--- NOTE | 2019-08-03 19:19 | NUR ---
RESPIRATORY NOTE: Received pt on AC 16, 450VT, 60%, PEEP +5. Pt intubated w/ ETT 7.5 @ 23cm lipline, secured by anchorfast. Pt is alert/awake, follows commands. B/S guillermo. rhonchi, sxn small to moderate amounts of thick/thin/frothy, pale-yellow secretions. Both hands on soft restraints to prevent pt from self-extubation. Vent plugged into red outlet, ambubag at bedside. Pt resting comfortably, in no apparent distress at this time. Will continue to monitor pt.
--- NOTE | 2019-08-03 19:29 | NUR ---
HAND-OFF: Report and PT given to EMMA Maya. Endorsed to call MD Susan when PT family is visiting so MD can talk to them personally. US tech at bedside during change of shift to do stat venous duplex.
--- NOTE | 2019-08-03 20:00 | NUR ---
NURSE NOTES: received from gonsalo case orally intubated -vent non verbal o2 sat 100 o/o no acute resp distress on soft restraint non complaint reposition and suction
[2019-08-03] MEDS: Dyna-Hex 2% Top Sol 2oz TOPIC SCH (20:39)
[2019-08-03] MEDS: Iron Sucrose 100 MG in NS 55 ML IV SCH (20:39)
--- NOTE | 2019-08-03 21:21 | Diagnostic Imaging Report ---
Indication: Elevated d-dimer, left leg paralysis Technique: Grayscale and duplex images of the bilateral lower extremity veins Comparison: 07/12/2019 Findings: Bilaterally, grayscale and duplex images demonstrate no evidence of intraluminal thrombus. Normal phasic Doppler waveforms demonstrating normal augmentation response and no evidence of valvular insufficiency. Normal compressibility. No significant interim change Impression: Negative
--- NOTE | 2019-08-03 22:00 | NUR ---
NURSE NOTES: reposition and suction
[2019-08-04] VITALS (23 sets, daily range): BP systolic 93–131; BP diastolic 48–81
--- NOTE | 2019-08-04 | NUR ---
NURSE NOTES: guillermo soft restraint dc pt asleep
--- NOTE | 2019-08-04 02:00 | NUR ---
reposition and suction guillermo soft restraints on non complaint
[2019-08-04] MEDS: Meropenem 1 GM in NS 55 ML IVPB SCH ×3 (02:33→17:55)
[2019-08-04] MEDS: Acetylcysteine 20% Soln 4ml HHN SCH ×6 (02:48→22:42)
[2019-08-04] MEDS: Albuterol/Ipratropium 3ml neb HHN SCH ×6 (02:48→22:41)
--- NOTE | 2019-08-04 04:00 | NUR ---
NURSE NOTES: complete bed bath reposition and suction
--- NOTE | 2019-08-04 06:00 | NUR ---
awake no acute resp distress no c/o pain on guillermo soft wrest restraints non complaint
[2019-08-04 06:37] LABS: BASOPHILS % (AUTO) 0.7 % (0.0-2.0); EOSINOPHILS % (AUTO) 6.4 % (0.0-3.0); HEMATOCRIT 27.5 % (37.0-47.0); HEMOGLOBIN 8.5 G/DL (12.0-16.0); LYMPHOCYTES % (AUTO) 17.3 % (20.0-45.0); MEAN CORPUSCULAR VOLUME 73 FL (80-99); MONOCYTES % (AUTO) 8.5 % (1.0-10.0); NEUTROPHILS % (AUTO) 67.2 % (45.0-75.0); PLATELET COUNT 231 K/UL (150-450); RED BLOOD COUNT 3.76 M/UL (4.20-5.40); RED CELL DISTRIBUTION WIDTH 18.8 % (11.6-14.8); WHITE BLOOD COUNT 8.9 K/UL (4.8-10.8)
[2019-08-04 06:51] LABS: ANION GAP 5 mmol/L (5-15); BLOOD UREA NITROGEN 4 mg/dL (7-18); CALCIUM 8.1 MG/DL (8.5-10.1); CARBON DIOXIDE 30 MMOL/L (21-32); CHLORIDE 103 MMOL/L (98-107); CREATININE 0.3 MG/DL (0.55-1.30); POTASSIUM 3.5 MMOL/L (3.5-5.1); SODIUM 138 MMOL/L (136-145)
--- NOTE | 2019-08-04 07:35 | NUR ---
NURSE NOTES: LATE ENTRY: RECEIVED REPORT FROM CHAYITO Rodriguez PT IN BED, EYES OPEN, PUPILS SLUGGISH 3MM. GAG HYPOACTIVE. PT INTUBATED ETTUBE 7.5, 24CM AT LIP. AC 16, VT 450, FI02 60%, PEEP 5. SECRETIONS SCANT LT NARES NGT. VITAL A.F 1.2 RUNNING AT 45ML/HR. ABDOMEN ROUND, NON TENDER. BOWEL SOUNDS HYPOACTIVE. NO BM AT THIS TIME. KNOTT DRAINING LIGHT YELLOW URINE. JASON PICC TKO. PT CALM, NO S/S OF PAIN. BILATERAL RESTRAINTS IN PLACE. AX TEMP 99.1, COOLING MEASURES IN PLACE. SKIN- SEE ASSESSMENT. CONTACT PRECAUTIONS IN PLACE. BED LOCKED IN LOW POSITION. WILL CONTINUE TO MONITOR PT.
--- NOTE | 2019-08-04 07:54 | NUR ---
HAND-OFF: Report given to patito case using sbar.
--- NOTE | 2019-08-04 08:10 | NUR ---
NURSE NOTES: PROOFER HERE TO DO CXR
--- NOTE | 2019-08-04 09:26 | NUR ---
RADIOLOGY DEPT., CHEST X-RAY DONE.-P.DYE
--- NOTE | 2019-08-04 09:38 | NUR ---
RESPIRATORY NOTES PT passed weaning and places on SBT - PS8, PEEP5, Fio2 45% NIF -18, RSBI 73, RR 23, VT 318
--- NOTE | 2019-08-04 09:41 | Pulmonolgy Critical Care Note ---
Critical Care - Asmt/Plan Assessment/Plan: (1) Pneumonia of both lower lobes Assessment & Plan: VDRF, intubated 07/12/19, S/P FOB 07/12/19; Reintubated (2) Catheter-associated urinary tract infection Assessment & Plan: PsA and proteus (3) Respiratory failure with hypoxia Assessment & Plan: Acute on chronic hypercapnic and hypoxemic RF 2/2 PNA VDRF as able Duplex neg, minimally elevated d-dimer, unlikely VTE and already on a NOAC (4) HCAP (healthcare-associated pneumonia) (5) Paraplegia (6) Sepsis (7) Suprapubic catheter (8) Restrictive lung disease due to kyphoscoliosis (9) Decubitus skin ulcer (10) Spina bifida (11) Anemia, acute Plan: * cont mechanical ventilatory support, wean as tolerated * Check ABG * Abx per ID * f/u tracheal aspirate * Good pulmonary hygiene: duonebs and mucomyst q4 * Replete electrolytes * cont to hold eliquis given drop in H/H, monitor * given the recurrent nature of this patient's respiratory failure, if not able to get extubated quickly, may need tracheostomy * needs PEG tube * Unclear if will be able to transfer to [facility] as no bed available there Respiratory: monitor respiratory rate, weaning trial Cardiac: continue to monitor HR/BP Renal: F/U I&O Infectious Disease: continue antibiotics Hematologic: monitor H/H Neurologic: keep patient comfortable Disposition: keep in ICU Time Spent (Minutes): 40 - cc Critical Care - Objective Last 24 Hour Vital Signs Date Time Temp Pulse Resp B/P (MAP) Pulse Ox O2 Delivery O2 Flow Rate FiO2 08/04/19 09:32 67 16 45 45 08/04/19 08:52 71 16 60 08/04/19 07:11 61 16 100 Mechanical Ventilator 60 60 16 60 08/04/19 07:00 61 16 119/56 (77) 100 08/04/19 06:54 61 16 08/04/19 06:00 64 16 107/48 (67) 100 08/04/19 05:21 76 17 60 08/04/19 05:00 81 16 112/50 (70) 100 08/04/19 04:00 60 08/04/19 04:00 64 08/04/19 04:00 99.5 72 17 127/63 (84) 100 08/04/19 03:09 65 16 100 Mechanical Ventilator 60 08/04/19 03:00 60 16 112/49 (70) 100 08/04/19 02:48 65 16 Mechanical Ventilator 60 60 08/04/19 02:00 64 16 104/52 (69) 08/04/19 01:00 69 16 111/56 (74) 100 08/04/19 01:00 66 16 60 08/04/19 01:00 69 16 111/56 (74) 100 08/04/19 00:00 61 08/04/19 00:00 98.5 73 16 112/54 (73) 100 08/04/19 00:00 73 16 112/54 (73) 100 08/04/19 00:00 60 08/03/19 23:13 69 16 100 Mechanical Ventilator 60 08/03/19 23:00 70 16 118/56 (76) 100 08/03/19 22:53 71 16 Mechanical Ventilator 60 60 08/03/19 22:00 75 16 125/61 (82) 100 08/03/19 21:00 81 15 126/60 (82) 100 08/03/19 20:55 83 17 60 08/03/19 20:00 99.5 69 16 99/44 (62) 100 08/03/19 20:00 60 08/03/19 20:00 76 08/03/19 19:36 70 16 100 Mechanical Ventilator 60 08/03/19 19:16 78 18 Mechanical Ventilator 60 60 08/03/19 19:00 77 16 124/61 (82) 99 08/03/19 18:00 80 20 120/68 (85) 100 08/03/19 17:42 80 19 60 08/03/19 17:00 82 17 90/55 (67) 99 08/03/19 16:00 60 08/03/19 16:00 99.7 77 16 120/56 (77) 100 08/03/19 16:00 75 08/03/19 15:30 76 17 100 Mechanical Ventilator 60 76 19 60 08/03/19 15:00 75 18 126/66 (86) 100 08/03/19 14:00 78 18 139/68 (91) 100 08/03/19 13:10 75 16 65 08/03/19 13:00 72 16 107/53 (71) 100 08/03/19 12:00 99.5 84 16 114/55 (74) 100 08/03/19 12:00 80 08/03/19 12:00 60 08/03/19 11:12 83 18 100 Mechanical Ventilator 60 83 16 70 08/03/19 11:00 99.5 79 16 111/51 (71) 100 08/03/19 10:15 99.5 08/03/19 10:00 81 17 113/54 (73) 100 Status: awake Condition: improving HEENT: atraumatic Lungs: clear Heart: HR/BP stable Abdomen: soft, non-tender Extremities: no C/C/E Micro: Microbiology Date/Time Source Procedure Growth Status 08/01/19 16:00 Blood Blood Culture - Preliminary NO GROWTH AFTER 48 HOURS Resulted 08/01/19 15:30 Blood Blood Culture - Preliminary NO GROWTH AFTER 48 HOURS Resulted 08/01/19 13:00 Sputum Gram Stain - Final Complete 08/01/19 13:00 Sputum Sputum Culture - Final NO GROWTH AFTER 48 HOURS Complete 08/03/19 17:30 Urine,Suprapubic Urine Culture - Preliminary NO GROWTH Resulted Accucheck: 114 Critical Care - Subjective ROS Limited/Unobtainable: Yes Interval Events: Good response to PRBC transfusion. No evidence of bleeding. Less secretions. Condition: improving FI02: 45 Vent Support Breath Rate: 16 Vent Support Mode: AC Vent Tidal Volume: 450 Sputum Amount: Small PEEP: 5.0 PIP: 27 Tube Feeding Amount: 45 I&O: Intake and Output 08/03/19 08/04/19 19:00 07:00 Intake Total 1660 ml 705 ml Output Total 1780 ml 1600 ml Balance -120 ml -895 ml Intake Free Water 50 ml IV Total 820 ml 115 ml Tube Feeding 540 ml 540 ml Blood Product 250 ml Other 50 ml Output Urine Total 1780 ml 1600 ml # Bowel Movements 2 1 ET-Tube: 7.5 ET Position: 24 Walker Bonilla MD Aug 04, 2019 09:41
--- NOTE | 2019-08-04 09:51 | NUR ---
NURSE NOTES: LATE ENTRY: RECEIVED CALL FROM MD KIM, TUBE FEEDING INCREASED, PER R.N LAST NIGHT HIGH RESIDUALS. NOW RUNNING AT 45ML/HR. NO BM AT THIS TIME. WILL PLACE ORDER FOR REGLAN.
--- NOTE | 2019-08-04 09:51 | General Progress Note ---
Assessment/Plan Problem List: (1) Spina bifida ICD Codes: Q05.9 - Spina bifida, unspecified SNOMED: 67973949 Qualifiers: Qualified Codes: Q05.4 - Unspecified spina bifida with hydrocephalus (2) Respiratory failure with hypoxia ICD Codes: J96.91 - Respiratory failure, unspecified with hypoxia SNOMED: [id number] Qualifiers: Qualified Codes: J96.21 - Acute and chronic respiratory failure with hypoxia (3) Dysphagia ICD Codes: R13.10 - Dysphagia, unspecified SNOMED: 11118645, [id number] Status: not improved Assessment/Plan: NOW INTUBATED IN THE icu needs PEG trying to get hold of family for consent for PEG ppi repeat labs fu H&H NGTF for now s/p unit PRBC yesterday add shereen family wants to transfer the patient to [facility] and refusing PEG here at [place] hold laxatives Subjective ROS Limited/Unobtainable: No Allergies: Coded Allergies: PENICILLIN G (Verified Allergy, Unknown, 12/02/18) Tolerates cabapenem, cephalosporin PENICILLINS (Unverified Allergy, Unknown, 12/02/18) Objective Last 24 Hour Vital Signs Date Time Temp Pulse Resp B/P (MAP) Pulse Ox O2 Delivery O2 Flow Rate FiO2 08/04/19 09:45 100 08/04/19 09:32 67 16 45 45 08/04/19 08:52 71 16 60 08/04/19 07:11 61 16 100 Mechanical Ventilator 60 60 16 60 08/04/19 07:00 61 16 119/56 (77) 100 08/04/19 06:54 61 16 08/04/19 06:00 64 16 107/48 (67) 100 08/04/19 05:21 76 17 60 08/04/19 05:00 81 16 112/50 (70) 100 08/04/19 04:00 60 08/04/19 04:00 64 08/04/19 04:00 99.5 72 17 127/63 (84) 100 08/04/19 03:09 65 16 100 Mechanical Ventilator 60 08/04/19 03:00 60 16 112/49 (70) 100 08/04/19 02:48 65 16 Mechanical Ventilator 60 60 08/04/19 02:00 64 16 104/52 (69) 08/04/19 01:00 69 16 111/56 (74) 100 08/04/19 01:00 66 16 60 08/04/19 01:00 69 16 111/56 (74) 100 08/04/19 00:00 61 08/04/19 00:00 98.5 73 16 112/54 (73) 100 08/04/19 00:00 73 16 112/54 (73) 100 08/04/19 00:00 60 08/03/19 23:13 69 16 100 Mechanical Ventilator 60 08/03/19 23:00 70 16 118/56 (76) 100 08/03/19 22:53 71 16 Mechanical Ventilator 60 60 08/03/19 22:00 75 16 125/61 (82) 100 08/03/19 21:00 81 15 126/60 (82) 100 08/03/19 20:55 83 17 60 08/03/19 20:00 99.5 69 16 99/44 (62) 100 08/03/19 20:00 60 08/03/19 20:00 76 08/03/19 19:36 70 16 100 Mechanical Ventilator 60 08/03/19 19:16 78 18 Mechanical Ventilator 60 60 08/03/19 19:00 77 16 124/61 (82) 99 08/03/19 18:00 80 20 120/68 (85) 100 08/03/19 17:42 80 19 60 08/03/19 17:00 82 17 90/55 (67) 99 08/03/19 16:00 60 08/03/19 16:00 99.7 77 16 120/56 (77) 100 08/03/19 16:00 75 08/03/19 15:30 76 17 100 Mechanical Ventilator 60 76 19 60 08/03/19 15:00 75 18 126/66 (86) 100 08/03/19 14:00 78 18 139/68 (91) 100 08/03/19 13:10 75 16 65 08/03/19 13:00 72 16 107/53 (71) 100 08/03/19 12:00 99.5 84 16 114/55 (74) 100 08/03/19 12:00 80 08/03/19 12:00 60 08/03/19 11:12 83 18 100 Mechanical Ventilator 60 83 16 70 08/03/19 11:00 99.5 79 16 111/51 (71) 100 08/03/19 10:15 99.5 08/03/19 10:00 81 17 113/54 (73) 100 Intake and Output 08/03/19 08/04/19 19:00 07:00 Intake Total 1660 ml 705 ml Output Total 1780 ml 1600 ml Balance -120 ml -895 ml Intake Free Water 50 ml IV Total 820 ml 115 ml Tube Feeding 540 ml 540 ml Blood Product 250 ml Other 50 ml Output Urine Total 1780 ml 1600 ml # Bowel Movements 2 1 Laboratory Tests 08/04/19 05:32: White Blood Count 8.9, Red Blood Count 3.76L, Hemoglobin 8.5L, Hematocrit 27.5L , Mean Corpuscular Volume 73L, Mean Corpuscular Hemoglobin 22.7L, Mean Corpuscular Hemoglobin Concent 30.9L, Red Cell Distribution Width 18.8H, Platelet Count 231, Mean Platelet Volume 5.6L, Neutrophils (%) (Auto) 67.2, Lymphocytes (%) (Auto) 17.3L, Monocytes (%) (Auto) 8.5, Eosinophils (%) (Auto) 6.4H, Basophils (%) (Auto) 0.7, Sodium Level 138, Potassium Level 3.5, Chloride Level 103, Carbon Dioxide Level 30, Anion Gap 5, Blood Urea Nitrogen 4L, Creatinine 0.3L, Estimat Glomerular Filtration Rate > 60, Glucose Level 145H, Calcium Level 8.1L 08/04/19 09:11: Arterial Blood pH 7.439, Arterial Blood Partial Pressure CO2 47.7H, Arterial Blood Partial Pressure O2 176.0H, Arterial Blood HCO3 31.6H, Arterial Blood Oxygen Saturation 98.9, Arterial Blood Base Excess 6.7H, Gerard Test Positive Height (Feet): 4 Height (Inches): 10.00 Weight (Pounds): 162 General Appearance: lethargic EENT: normal ENT inspection Neck: supple Cardiovascular: normal rate Respiratory/Chest: decreased breath sounds Abdomen: normal bowel sounds, non tender, soft Extremities: non-tender Tim Davis MD Aug 04, 2019 09:51
[2019-08-04] MEDS: Pantoprazole Inj IV SCH (09:56)
[2019-08-04] MEDS ORDERED: Metoclopramide 10mg/2ml Inj IVP PRN (10:00)
--- NOTE | 2019-08-04 10:44 | Diagnostic Imaging Report ---
Indication: Dyspnea Technique: One view of the chest Comparison: 08/02/2019 Findings: Stable satisfactory positions of endotracheal tube, nasogastric tube, PICC. Spinal fusion hardware and ventriculoperitoneal shunt tubing again demonstrated. There is decreased but persistent interstitial and airspace edema diffusely throughout the right lung. Left lung interstitial congestion and basilar opacification persists, unchanged. Impression: Slightly improved parenchymal disease in the right lung, over 2 days. Otherwise stable findings as described
--- NOTE | 2019-08-04 11:04 | NUR ---
RD ASSESSMENT & RECOMMENDATIONS SEE CARE ACTIVITY FOR COMPLETE ASSESSMENT DAILY ESTIMATED NEEDS: Needs based on wound, critical care/ 47.6kg abw 25-30 kcals/kg 2801-0855 total kcals 1.25-2 g protein/kg 60-95 g total protein 25-30 mL/kg 9499-9990 total fluid mLs NUTRITION DIAGNOSIS: * Increased kcal/pro needs r/t wound healing as evidenced by h/o spina bifida, adm w/ full thickness wound @ sacrum and resolving pressure injury @ R-ischium. * Swallowing difficulty R/T respiratory status as evidenced by re-intubated, on NGT feeding. PO DIET RECOMMENDATIONS: SPOT WELDER LINE eval post extubation ENTERAL NUTRITION RECOMMENDATIONS: Vital AF 1.2 @ 45ml/hr x 24 hrs to provide 1080ml, 1296kcal, 81g prot, 875ml free water - Maintain current TF: meets 100% est kcal/prot needs - Without IVF: water flush of 140ml q 6hrs - HOB over 30 degrees. ADDITIONAL RECOMMENDATIONS: 1) Wound care: add GREGG in 4oz H2O BID via NGT Add VIT C 500mg daily 2) Maintain calibrated bed scale wts 3) NISS for BG control on TF 4) Monitor lytes daily, replete as needed (low K, phos, mag) 5) Add Probiotics w/ continued diarrhea. .
--- NOTE | 2019-08-04 12:00 | NUR ---
NURSE NOTES: LATE ENTRY: PT IN BED, EYES OPEN, PUPILS SLUGGISH 3MM. PT INTUBATED ETTUBE 7.5, 24CM AT LIP. AC 16, VT 450, FI02 60%, PEEP 5. WEANING SINCE 0900 ON P12 60%. VSS. SECRETIONS SCANT. VITAL A.F 1.2 RUNNING AT 45ML/HR. NO RESIDUALS NOTED. ONE LOOSE STOOL SMEAR, UNABLE TO OBTAIN SAMPLE. JASON PICC TKO. UPPER ARM SWELLING. MD CASTRO INFORMED, NOVEMBER D/C PICC WITH CULTURE RESULTS. MONITOR CLOSELY AT THIS TIME. PERIPHERAL IV UNABLE TO BE OBTAINED. PT CALM, NO S/S OF PAIN. BILATERAL RESTRAINTS IN PLACE. A FEBRILE. SKIN- SEE ASSESSMENT. CONTACT PRECAUTIONS IN PLACE. BED LOCKED IN LOW POSITION. WILL CONTINUE TO MONITOR PT.
--- NOTE | 2019-08-04 14:19 | Infectious Diseases Prog Note ---
Assessment/Plan Problems: (1) Pneumonia of both lower lobes Assessment & Plan: with B/L infiltrates worse on the right with hypoxemia , suspect recurrent aspiration , continue meropenem and zyvox coverage for two weeks , repeated sputum culture on 07/31 and 08/01 are negative for any pathogens. aspiration precaution, monitor CXR , may need tube feeding and tracheostomy , D/W family . EOT 08/11/19 (2) Sepsis Assessment & Plan: with streptococcus alpha hemolytic , already on zyvox for pneumonia coverage too , repeated blood culture is negative so far on 07/29 which confirm clearance , may need to remove the central line and put a new one , will treat with antibiotics for 2 weeks . EOT 08/11/19 (3) Decubitus skin ulcer Assessment & Plan: of the sacrum, continue off loading and local wound care as per hospital protocol (4) Respiratory failure with hypoxia Assessment & Plan: got worse again , with low O2 on ABG, was reintubated again and started on mechanical ventilation , monitor ABG and CXR as per pulmonary , aspiration precaution and keep HOB > 30 DEGREE (5) At risk for aspiration pneumonia Assessment & Plan: aspiration precaution, may benefit from tube feeding , since weak oral phase (6) Diarrhea Assessment & Plan: rule out C diff , will order stool for C diff toxin , keep contact isolation (7) Fever Assessment & Plan: rule out resistant bacteria, VS Fungal infection , VS C diff , already on wide spectrum antibiotics , will continue micafungin empirically pending repeated blood culture x 2 (8) Anemia Assessment & Plan: recurrent , rule out GI source VS alveolar hemorrhage, close monitor of H/H, and transfusion as needed . GI work up Assessment/Plan D/W RN, and consultants Subjective ROS Limited/Unobtainable: Yes Allergies: Coded Allergies: PENICILLIN G (Verified Allergy, Unknown, 12/02/18) Tolerates cabapenem, cephalosporin PENICILLINS (Unverified Allergy, Unknown, 12/02/18) Subjective she was still in ICU intubated , on mechanical ventilation due to respiratory distress and possible aspiration , has thin white secretions from her ET tube , fully awake and responsive , still congested with diffuse wheezing , no more fever today , no chills , has small bowel movement today with no diarrhea Objective Vital Signs Last 24 Hour Vital Signs Date Time Temp Pulse Resp B/P (MAP) Pulse Ox O2 Delivery O2 Flow Rate FiO2 08/04/19 13:10 82 24 45 08/04/19 13:00 81 18 119/62 (81) 100 08/04/19 12:00 98.5 81 21 105/81 (89) 99 08/04/19 12:00 45 08/04/19 12:00 84 08/04/19 11:23 79 20 100 Mechanical Ventilator 45 77 23 45 08/04/19 11:00 81 19 116/56 (76) 98 08/04/19 09:45 84 18 97 08/04/19 09:45 100 08/04/19 09:32 67 16 45 45 08/04/19 09:30 69 16 100 08/04/19 09:15 70 17 100 08/04/19 09:00 70 16 120/50 (73) 100 08/04/19 08:52 71 16 60 08/04/19 08:45 74 16 100 08/04/19 08:30 69 16 100 08/04/19 08:15 68 16 100 08/04/19 08:00 45 08/04/19 08:00 99.1 61 16 131/56 (81) 100 08/04/19 08:00 60 08/04/19 07:11 61 16 100 Mechanical Ventilator 60 60 16 60 08/04/19 07:00 61 16 119/56 (77) 100 08/04/19 06:54 61 16 08/04/19 06:00 64 16 107/48 (67) 100 08/04/19 05:21 76 17 60 08/04/19 05:00 81 16 112/50 (70) 100 08/04/19 04:00 60 08/04/19 04:00 64 08/04/19 04:00 99.5 72 17 127/63 (84) 100 08/04/19 03:09 65 16 100 Mechanical Ventilator 60 08/04/19 03:00 60 16 112/49 (70) 100 08/04/19 02:48 65 16 Mechanical Ventilator 60 60 08/04/19 02:00 64 16 104/52 (69) 08/04/19 01:00 69 16 111/56 (74) 100 08/04/19 01:00 66 16 60 08/04/19 01:00 69 16 111/56 (74) 100 08/04/19 00:00 61 08/04/19 00:00 98.5 73 16 112/54 (73) 100 08/04/19 00:00 73 16 112/54 (73) 100 08/04/19 00:00 60 08/03/19 23:13 69 16 100 Mechanical Ventilator 60 08/03/19 23:00 70 16 118/56 (76) 100 08/03/19 22:53 71 16 Mechanical Ventilator 60 60 08/03/19 22:00 75 16 125/61 (82) 100 08/03/19 21:00 81 15 126/60 (82) 100 08/03/19 20:55 83 17 60 08/03/19 20:00 99.5 69 16 99/44 (62) 100 08/03/19 20:00 60 08/03/19 20:00 76 08/03/19 19:36 70 16 100 Mechanical Ventilator 60 08/03/19 19:16 78 18 Mechanical Ventilator 60 60 08/03/19 19:00 77 16 124/61 (82) 99 08/03/19 18:00 80 20 120/68 (85) 100 08/03/19 17:42 80 19 60 08/03/19 17:00 82 17 90/55 (67) 99 08/03/19 16:00 60 08/03/19 16:00 99.7 77 16 120/56 (77) 100 08/03/19 16:00 75 08/03/19 15:30 76 17 100 Mechanical Ventilator 60 76 19 60 08/03/19 15:00 75 18 126/66 (86) 100 Height (Feet): 4 Height (Inches): 10.00 Weight (Pounds): 162 General Appearance: WD/WN, no acute distress HEENT: normocephalic, atraumatic, anicteric, mucous membranes moist, PERRL Respiratory/Chest: chest wall non-tender, no respiratory distress, no accessory muscle use, decreased breath sounds, crackles/rales, expiratory wheezing Cardiovascular: normal peripheral pulses, normal rate, regular rhythm, no gallop/murmur, no JVD Abdomen: normal bowel sounds, soft, non tender, no organomegaly, non distended , no mass, no scars, other - suprapubic catheter site clean and intact Genitourinary: normal external genitalia Extremities: no cyanosis, no clubbing Skin: no rash, no lesions, no ulcers Neurologic/Psychiatric: alert, responsive Lymphatic: no neck adenopathy, no groin adenopathy Musculoskeletal: normal muscle bulk, no effusion Microbiology Date/Time Source Procedure Growth Status 08/01/19 16:00 Blood Blood Culture - Preliminary NO GROWTH AFTER 48 HOURS Resulted 08/01/19 15:30 Blood Blood Culture - Preliminary NO GROWTH AFTER 48 HOURS Resulted 08/03/19 17:30 Urine,Suprapubic Urine Culture - Preliminary NO GROWTH Resulted Laboratory Tests Test 08/04/19 05:32 08/04/19 09:11 08/04/19 10:38 White Blood Count 8.9 K/UL (4.8-10.8) Red Blood Count 3.76 M/UL (4.20-5.40) L Hemoglobin 8.5 G/DL (12.0-16.0) L Hematocrit 27.5 % (37.0-47.0) L Mean Corpuscular Volume 73 FL (80-99) L Mean Corpuscular Hemoglobin 22.7 PG (27.0-31.0) L Mean Corpuscular Hemoglobin Concent 30.9 G/DL (32.0-36.0) L Red Cell Distribution Width 18.8 % (11.6-14.8) H Platelet Count 231 K/UL (150-450) Mean Platelet Volume 5.6 FL (6.5-10.1) L Neutrophils (%) (Auto) 67.2 % (45.0-75.0) Lymphocytes (%) (Auto) 17.3 % (20.0-45.0) L Monocytes (%) (Auto) 8.5 % (1.0-10.0) Eosinophils (%) (Auto) 6.4 % (0.0-3.0) H Basophils (%) (Auto) 0.7 % (0.0-2.0) Sodium Level 138 MMOL/L (136-145) Potassium Level 3.5 MMOL/L (3.5-5.1) Chloride Level 103 MMOL/L (98-107) Carbon Dioxide Level 30 MMOL/L (21-32) Anion Gap 5 mmol/L (5-15) Blood Urea Nitrogen 4 mg/dL (7-18) L Creatinine 0.3 MG/DL (0.55-1.30) L Estimat Glomerular Filtration Rate > 60 mL/min (>60) Glucose Level 145 MG/DL (74-106) H Calcium Level 8.1 MG/DL (8.5-10.1) L Arterial Blood pH 7.439 (7.350-7.450) 7.398 (7.350-7.450) Arterial Blood Partial Pressure CO2 47.7 mmHg (35.0-45.0) H 49.4 mmHg (35.0-45.0) H Arterial Blood Partial Pressure O2 176.0 mmHg (75.0-100.0) H 83.7 mmHg (75.0-100.0) Arterial Blood HCO3 31.6 mmol/L (22.0-26.0) H 29.8 mmol/L (22.0-26.0) H Arterial Blood Oxygen Saturation 98.9 % (95-100) 95.2 % (95-100) Arterial Blood Base Excess 6.7 (-2-2) H 4.3 (-2-2) H Gerard Test Positive Positive Current Medications Medications (Trade) Dose Ordered Sig/Sandeep Route PRN Reason Start Time Stop Time Status Last Admin Dose Admin Acetaminophen (Tylenol) 650 mg Q6H PRN GT Mild Pain/Temp > 100.5 07/31/19 12:45 08/11/19 12:43 08/03/19 09:32 Acetylcysteine (Mucomyst) 400 mg Q4HRT [facility] 08/01/19 11:00 08/16/19 18:59 08/04/19 11:09 Albuterol/ Ipratropium (Albuterol/ Ipratropium) 3 ml Q4HRT N 08/02/19 03:00 08/07/19 02:59 08/04/19 11:09 Chlorhexidine Gluconate (Debora-Hex 2%) 1 applic DAILY@1999 TOPIC 07/31/19 20:00 08/13/19 19:59 08/03/19 20:39 Heparin Sodium (Porcine) (Heparin 5000 units/ml) 5,000 units EVERY 12 HOURS SUBQ 08/04/19 21:00 09/03/19 20:59 Iron Sucrose 100 mg/Sodium Chloride 60 ml @ 240 mls/hr BEDTIME IV 07/31/19 21:00 08/04/19 21:14 08/03/19 20:39 Linezolid 300 ml @ 300 mls/hr Q12HR@0500,1700 IVPB 07/31/19 17:00 08/11/19 23:59 08/04/19 04:47 Lorazepam (Ativan 2mg/ml 1ml) 2 mg Q4H PRN IV For Anxiety 07/31/19 14:00 08/07/19 13:59 Meropenem 1 gm/ Sodium Chloride 55 ml @ 110 mls/hr Q8H IVPB 07/31/19 18:00 08/11/19 23:59 08/04/19 09:55 Metoclopramide HCl (Reglan) 5 mg Q6H PRN IVP Nausea & Vomiting 08/04/19 10:00 09/03/19 09:59 Micafungin Sodium 100 mg/Sodium Chloride 110 ml @ 110 mls/hr Q24H IVPB 08/03/19 16:00 08/11/19 23:59 08/03/19 16:41 Morphine Sulfate (Morphine Sulfate) 4 mg Q4H PRN IVP Severe Pain (Pain Scale 7-10) 07/31/19 14:00 08/07/19 13:59 Pantoprazole (Protonix) 40 mg DAILY IV 08/01/19 09:00 08/31/19 08:59 08/04/19 09:56 Gigi Sanabria M.D. Aug 04, 2019 14:19
--- NOTE | 2019-08-04 16:00 | NUR ---
NURSE NOTES: PT REPOSITIONED. RESTRAINTS RELEASED WHILE PROVIDING PT CARE. PT ABLE TO REACH NECK AND SCRATCHED AREA REDNESS NOTED. A&D ONT APPLIED. PT PROCEEDED TO PULL AT NGT. RESTRAINTS REAPPLIED.
--- NOTE | 2019-08-04 16:33 | NUR ---
RESPIRATORY NOTES . PT was beginning to tire out from CPAP. PT placed back on previous vent settings: AC/VC RR 16, VT 450, Fio2 45%, PEEP +5
[2019-08-04] MEDS: Micafungin 100 MG in NS 110 ML IVPB SCH (16:56)
--- NOTE | 2019-08-04 18:42 | NUR ---
NURSE NOTES: RECEIVED CALL FROM FAMILY SALDAÑA. INFORMED THAT PT STABLE. NO WORD FROM [facility] TODAY.
--- NOTE | 2019-08-04 19:17 | NUR ---
HAND-OFF: Report given to CHAYITO Rodriguez PT IN NO ACUTE DISTRESS.
--- NOTE | 2019-08-04 19:19 | Internal Med Progress Note ---
Subjective Date of Service: Aug 04, 2019 Physician Name Niraj Teixeira Attending Physician Wil Masters MD Current Medications Medications (Trade) Dose Ordered Sig/Sandeep Route PRN Reason Start Time Stop Time Status Last Admin Dose Admin Acetaminophen (Tylenol) 650 mg Q6H PRN GT Mild Pain/Temp > 100.5 07/31/19 12:45 08/11/19 12:43 08/03/19 09:32 Acetylcysteine (Mucomyst) 400 mg Q4HRT N 08/01/19 11:00 08/16/19 18:59 08/04/19 19:16 Albuterol/ Ipratropium (Albuterol/ Ipratropium) 3 ml Q4HRT HHN 08/02/19 03:00 08/07/19 02:59 08/04/19 19:16 Chlorhexidine Gluconate (Debora-Hex 2%) 1 applic DAILY@2000 TOPIC 07/31/19 20:00 08/13/19 19:59 08/03/19 20:39 Heparin Sodium (Porcine) (Heparin 5000 units/ml) 5,000 units EVERY 12 HOURS SUBQ 08/04/19 21:00 09/03/19 20:59 Iron Sucrose 100 mg/Sodium Chloride 60 ml @ 240 mls/hr BEDTIME IV 07/31/19 21:00 08/04/19 21:14 08/03/19 20:39 Linezolid 300 ml @ 300 mls/hr Q12HR@0500,1700 IVPB 07/31/19 17:00 08/11/19 23:59 08/04/19 16:56 Lorazepam (Ativan 2mg/ml 1ml) 2 mg Q4H PRN IV For Anxiety 07/31/19 14:00 08/07/19 13:59 Meropenem 1 gm/ Sodium Chloride 55 ml @ 110 mls/hr Q8H IVPB 07/31/19 18:00 08/11/19 23:59 08/04/19 17:55 Metoclopramide HCl (Reglan) 5 mg Q6H PRN IVP Nausea & Vomiting 08/04/19 10:00 09/03/19 09:59 Micafungin Sodium 100 mg/Sodium Chloride 110 ml @ 110 mls/hr Q24H IVPB 08/03/19 16:00 08/11/19 23:59 08/04/19 16:56 Morphine Sulfate (Morphine Sulfate) 4 mg Q4H PRN IVP Severe Pain (Pain Scale 7-10) 07/31/19 14:00 08/07/19 13:59 Pantoprazole (Protonix) 40 mg DAILY IV 08/01/19 09:00 08/31/19 08:59 08/04/19 09:56 Allergies: Coded Allergies: PENICILLIN G (Verified Allergy, Unknown, 12/02/18) Tolerates cabapenem, cephalosporin PENICILLINS (Unverified Allergy, Unknown, 12/02/18) ROS Limited/Unobtainable: Yes Subjective 49 YO F with pneumonia and respiratory failure. Intubated and sedated. Cover for Int Conor-DR Masters. ICU Objective Last Vital Signs Date Time Temp Pulse Resp B/P (MAP) Pulse Ox O2 Delivery O2 Flow Rate FiO2 08/04/19 19:10 77 16 100 Mechanical Ventilator 40 77 16 45 08/04/19 18:00 118/59 (78) 08/04/19 16:00 98.3 07/27/19 04:00 4.0 Laboratory Tests Test 08/04/19 05:32 08/04/19 09:11 08/04/19 10:38 White Blood Count 8.9 K/UL (4.8-10.8) Red Blood Count 3.76 M/UL (4.20-5.40) L Hemoglobin 8.5 G/DL (12.0-16.0) L Hematocrit 27.5 % (37.0-47.0) L Mean Corpuscular Volume 73 FL (80-99) L Mean Corpuscular Hemoglobin 22.7 PG (27.0-31.0) L Mean Corpuscular Hemoglobin Concent 30.9 G/DL (32.0-36.0) L Red Cell Distribution Width 18.8 % (11.6-14.8) H Platelet Count 231 K/UL (150-450) Mean Platelet Volume 5.6 FL (6.5-10.1) L Neutrophils (%) (Auto) 67.2 % (45.0-75.0) Lymphocytes (%) (Auto) 17.3 % (20.0-45.0) L Monocytes (%) (Auto) 8.5 % (1.0-10.0) Eosinophils (%) (Auto) 6.4 % (0.0-3.0) H Basophils (%) (Auto) 0.7 % (0.0-2.0) Sodium Level 138 MMOL/L (136-145) Potassium Level 3.5 MMOL/L (3.5-5.1) Chloride Level 103 MMOL/L (98-107) Carbon Dioxide Level 30 MMOL/L (21-32) Anion Gap 5 mmol/L (5-15) Blood Urea Nitrogen 4 mg/dL (7-18) L Creatinine 0.3 MG/DL (0.55-1.30) L Estimat Glomerular Filtration Rate > 60 mL/min (>60) Glucose Level 145 MG/DL (74-106) H Calcium Level 8.1 MG/DL (8.5-10.1) L Arterial Blood pH 7.439 (7.350-7.450) 7.398 (7.350-7.450) Arterial Blood Partial Pressure CO2 47.7 mmHg (35.0-45.0) H 49.4 mmHg (35.0-45.0) H Arterial Blood Partial Pressure O2 176.0 mmHg (75.0-100.0) H 83.7 mmHg (75.0-100.0) Arterial Blood HCO3 31.6 mmol/L (22.0-26.0) H 29.8 mmol/L (22.0-26.0) H Arterial Blood Oxygen Saturation 98.9 % (95-100) 95.2 % (95-100) Arterial Blood Base Excess 6.7 (-2-2) H 4.3 (-2-2) H Gerard Test Positive Positive Microbiology Date/Time Source Procedure Growth Status 08/03/19 17:30 Urine,Suprapubic Urine Culture - Preliminary NO GROWTH Resulted Intake and Output 08/03/19 08/04/19 19:00 07:00 Intake Total 1660 ml 705 ml Output Total 1780 ml 1600 ml Balance -120 ml -895 ml Intake Free Water 50 ml IV Total 820 ml 115 ml Tube Feeding 540 ml 540 ml Blood Product 250 ml Other 50 ml Output Urine Total 1780 ml 1600 ml # Bowel Movements 2 1 Objective General Appearance: WD/WN, moderate distress EENT: PERRL/EOMI, normal ENT inspection Neck: non-tender, normal alignment, supple Cardiovascular: normal peripheral pulses, normal rate, regular rhythm, no gallop/murmur, no JVD Respiratory/Chest: Mech Vent; crackles/rales, rhonchi - bilaterally, expiratory wheezing Abdomen: normal bowel sounds, non tender, soft, no organomegaly, no mass Skin: normal pigmentation, warm/dry Assessment/Plan Problem List: (1) Respiratory failure with hypoxia Assessment & Plan: Mechanical vent per pulmonary=Dr Bonilla (2) Pneumonia of both lower lobes Assessment & Plan: See ID note. Continue meropenem and zyvox (3) UTI (urinary tract infection) Assessment & Plan: Pseudamonas, ESBL E. Coli, and vanco resistant enterococcus. See ID=Dr Sanabria. Continue meropenem, linezolid and micafugin (4) Sepsis (5) Paraplegia (6) Spina bifida Niraj Teixeira MD Aug 04, 2019 19:19
--- NOTE | 2019-08-04 20:00 | NUR ---
NURSE NOTES:received report from patito case pt orally intubated -vent o2 sat 98 o/o no resp distress noted tolerating tube feeding no residual urinary output good reposition and suction
[2019-08-04] MEDS: Dyna-Hex 2% Top Sol 2oz TOPIC SCH (21:19)
[2019-08-04] MEDS: Iron Sucrose 100 MG in NS 55 ML IV SCH (21:19)
[2019-08-04] MEDS: Heparin 5000 units/ml inj SUBQ SCH (21:24)
--- NOTE | 2019-08-04 22:00 | NUR ---
NURSE NOTES: asleep iv infusing well dressing dry and intact
[2019-08-05] VITALS (24 sets, daily range): BP systolic 104–144; BP diastolic 50–117
--- NOTE | 2019-08-05 | NUR ---
NURSE NOTES: REPOSITION AND SUCTION
--- NOTE | 2019-08-05 02:00 | NUR ---
NURSE NOTES: ASLEEP NO ACUTE RESP DISTRESS NOTED
[2019-08-05] MEDS: Albuterol/Ipratropium 3ml neb HHN SCH ×6 (02:51→22:42)
[2019-08-05] MEDS: Acetylcysteine 20% Soln 4ml HHN SCH ×6 (02:51→22:42)
[2019-08-05] MEDS: Meropenem 1 GM in NS 55 ML IVPB SCH ×3 (02:59→17:45)
--- NOTE | 2019-08-05 04:00 | NUR ---
NURSE NOTES: complete bed bath reposition and suction
[2019-08-05 05:31] LABS: BASOPHILS % (AUTO) 0.6 % (0.0-2.0); EOSINOPHILS % (AUTO) 5.5 % (0.0-3.0); HEMATOCRIT 26.9 % (37.0-47.0); HEMOGLOBIN 8.5 G/DL (12.0-16.0); LYMPHOCYTES % (AUTO) 20.7 % (20.0-45.0); MEAN CORPUSCULAR VOLUME 73 FL (80-99); MONOCYTES % (AUTO) 8.2 % (1.0-10.0); PLATELET COUNT 279 K/UL (150-450); RED BLOOD COUNT 3.71 M/UL (4.20-5.40); RED CELL DISTRIBUTION WIDTH 19.8 % (11.6-14.8); WHITE BLOOD COUNT 8.8 K/UL (4.8-10.8)
[2019-08-05 05:42] LABS: ANION GAP 10 mmol/L (5-15); BLOOD UREA NITROGEN 10 mg/dL (7-18); CALCIUM 7.8 MG/DL (8.5-10.1); CARBON DIOXIDE 31 MMOL/L (21-32); CHLORIDE 102 MMOL/L (98-107); CREATININE 0.4 MG/DL (0.55-1.30); POTASSIUM 3.2 MMOL/L (3.5-5.1); SODIUM 143 MMOL/L (136-145)
--- NOTE | 2019-08-05 06:00 | NUR ---
NURSE NOTES: asleep no acute resp distress
--- NOTE | 2019-08-05 07:00 | NUR ---
RESPIRATORY NOTES: Received Patient on Vent settings ACVC 450, RR 16, FIO2 40%, PEEP +5. Patient is intubated with 7.5 ETT at 23cm at the lip, secured with anchorfast. Suctioned small amount of clear secretions through ETT and mouth Q2 and PRN. Patient awake and alert. Vent plugged into red outlet. Alarms are on and audible. Will continue to monitor throughout the day.
--- NOTE | 2019-08-05 07:28 | NUR ---
HAND-OFF: Report given to osmany rn using sbar .
--- NOTE | 2019-08-05 07:29 | NUR ---
NURSE NOTES: Received report from EMMA Torrez. Patient is intubated, ETT 7.5/24cm at lip line with vent setting AC 16, VT 450, Peep 5 and FiO2 40%. Responsive to verbal with eye tracking. NGT intact and running with Vital AF 1.2 @ 45ml/hr. Suprapubic catheter intact and draining with yellow color urine. Left upper arm PICC intact and clean with TKO. Kept dry, clean, comfortable and HOB>30. Will continue plan of care.
--- NOTE | 2019-08-05 07:52 | NUR ---
RESPIRATORY NOTES: Attempted to wean patient however she failed. RR decreased to 6bpm and VT to 85mL. Desaturated to 86%. Placed Patient back onto ACVC settings.
--- NOTE | 2019-08-05 08:40 | Diagnostic Imaging Report ---
Indication: Dyspnea Technique: One view of the chest Comparison: 08/04/2019 Findings: Stable tube and line positions. Retrocardiac consolidation, bilateral interstitial and hazy airspace disease persists. There is a new band of atelectasis in the right perihilar region. Impression: New right perihilar atelectasis. Otherwise unchanged over one day
[2019-08-05] MEDS: Pantoprazole Inj IV SCH (08:44)
[2019-08-05] MEDS: Heparin 5000 units/ml inj SUBQ SCH ×2 (08:44→21:10)
--- NOTE | 2019-08-05 09:02 | NUR ---
NURSE NOTES: All due meds given as ordered.
[2019-08-05] MEDS ORDERED: NS 275ml ONE ×2 (09:32→09:52)
[2019-08-05] MEDS ORDERED: Tubing IV Secondary IV ONE (09:32)
[2019-08-05] MEDS ORDERED: D5 1/2NS 1000ml IV ONE (09:52)
[2019-08-05] MEDS ORDERED: D5NS 1000ml IV ONE (09:52)
--- NOTE | 2019-08-05 10:39 | NUR ---
NURSE NOTES: Informed Dr. Masters that potassium level. New order read back and confirmed. Will continue plan of care.
--- NOTE | 2019-08-05 11:18 | NUR ---
NURSE NOTES: Seen by Dr. Bonilla and assessed patient. Informed that patient failed weaning this morning and CXR result for today. He ordered ABG for tomorrow. Will continue plan of care.
--- NOTE | 2019-08-05 11:34 | Pulmonolgy Critical Care Note ---
Critical Care - Asmt/Plan Assessment/Plan: (1) Pneumonia of both lower lobes Assessment & Plan: VDRF, intubated 07/12/19, S/P FOB 07/12/19; Reintubated (2) Catheter-associated urinary tract infection Assessment & Plan: PsA and proteus (3) Respiratory failure with hypoxia Assessment & Plan: Acute on chronic hypercapnic and hypoxemic RF 2/2 PNA VDRF as able Duplex neg, minimally elevated d-dimer, unlikely VTE and already on a NOAC (4) HCAP (healthcare-associated pneumonia) (5) Paraplegia (6) Sepsis (7) Suprapubic catheter (8) Restrictive lung disease due to kyphoscoliosis (9) Decubitus skin ulcer (10) Spina bifida (11) Anemia, acute Plan: * cont mechanical ventilatory support, wean as tolerated * Monitor ABG * Abx per ID * Good pulmonary hygiene: duonebs and mucomyst q4 * Replete electrolytes as neded * cont to hold eliquis given drop in H/H, monitor, f/u stool occult blood * given the recurrent nature of this patient's respiratory failure, if not able to get extubated quickly, may need tracheostomy * needs PEG tube * Unclear if will be able to transfer to [facility] as no bed available there Respiratory: weaning trial Cardiac: continue to monitor HR/BP Renal: F/U I&O Infectious Disease: continue antibiotics Gastrointestinal: continue feedings/current rate Hematologic: monitor H/H Disposition: keep in ICU Time Spent (Minutes): 40 - cc Discussed with: nurses Critical Care - Objective Last 24 Hour Vital Signs Date Time Temp Pulse Resp B/P (MAP) Pulse Ox O2 Delivery O2 Flow Rate FiO2 08/05/19 11:00 69 17 113/53 (73) 100 08/05/19 10:00 61 16 113/56 (75) 98 08/05/19 09:29 59 16 40 08/05/19 09:00 59 16 111/55 (73) 99 08/05/19 08:00 40 08/05/19 08:00 68 08/05/19 08:00 98.9 66 15 121/59 (79) 98 08/05/19 08:00 Mechanical Ventilator Mechanical Ventilator 08/05/19 07:51 100 08/05/19 07:48 61 16 40 08/05/19 07:00 68 16 130/73 (92) 99 08/05/19 06:30 68 16 08/05/19 06:00 74 17 125/62 (83) 97 08/05/19 05:05 77 16 40 08/05/19 05:00 74 21 130/70 (90) 96 08/05/19 04:00 72 08/05/19 04:00 Mechanical Ventilator Mechanical Ventilator 08/05/19 04:00 98.8 79 18 124/71 (88) 96 08/05/19 04:00 40 08/05/19 03:00 64 16 105/51 (69) 98 08/05/19 02:53 81 18 99 Mechanical Ventilator 40 81 18 40 08/05/19 02:00 64 16 105/52 (69) 93 08/05/19 01:12 75 18 40 08/05/19 01:00 76 18 109/63 (78) 93 08/05/19 00:00 87 08/05/19 00:00 Mechanical Ventilator Mechanical Ventilator 08/05/19 00:00 40 08/05/19 00:00 99.0 78 19 120/56 (77) 96 08/04/19 23:00 79 17 112/64 (80) 94 08/04/19 22:42 76 16 98 Mechanical Ventilator 40 76 16 45 08/04/19 22:00 67 16 102/52 (69) 94 08/04/19 21:00 68 16 93/49 (64) 95 08/04/19 20:50 70 19 40 08/04/19 20:00 Mechanical Ventilator Mechanical Ventilator 08/04/19 20:00 98.8 84 17 104/51 (68) 92 08/04/19 20:00 40 08/04/19 20:00 88 08/04/19 19:10 77 16 100 Mechanical Ventilator 40 77 16 45 08/04/19 19:00 74 17 109/58 (75) 99 08/04/19 18:00 67 16 118/59 (78) 100 08/04/19 17:00 73 16 102/55 (71) 100 08/04/19 16:30 98 25 45 08/04/19 16:00 98.3 82 19 125/71 (89) 100 08/04/19 16:00 45 08/04/19 16:00 82 08/04/19 16:00 88 08/04/19 15:02 79 25 100 Mechanical Ventilator 45 85 22 45 08/04/19 15:00 85 19 125/55 (78) 100 08/04/19 14:38 45 08/04/19 14:00 79 21 124/66 (85) 100 08/04/19 13:10 82 24 45 08/04/19 13:00 81 18 119/62 (81) 100 08/04/19 12:00 98.5 81 21 105/81 (89) 99 08/04/19 12:00 45 08/04/19 12:00 84 Status: awake Condition: improving Lungs: rhonchi Heart: HR/BP stable Abdomen: soft, non-tender Extremities: edema Micro: Microbiology Date/Time Source Procedure Growth Status 08/03/19 17:33 Blood Blood Culture - Preliminary NO GROWTH AFTER 24 HOURS Resulted 08/03/19 16:35 Blood Blood Culture - Preliminary NO GROWTH AFTER 24 HOURS Resulted 08/03/19 17:30 Urine,Suprapubic Urine Culture - Preliminary Resulted Accucheck: 114 Critical Care - Subjective ROS Limited/Unobtainable: Yes Interval Events: ABG ok but failed weaning trial. No significant secretions per RN. tolerating tube feeds FI02: 40 Vent Support Breath Rate: 16 Vent Support Mode: AC Vent Tidal Volume: 450 Sputum Amount: Small PEEP: 5.0 PIP: 32 Tube Feeding Amount: 45 I&O: Intake and Output 08/04/19 08/05/19 19:00 07:00 Intake Total 680 ml 955 ml Output Total 1245 ml 1400 ml Balance -565 ml -445 ml IV Total 110 ml 415 ml Tube Feeding 540 ml 540 ml Other 30 ml Output Urine Total 1245 ml 1400 ml # Bowel Movements 3 ET-Tube: 7.5 ET Position: 24 Walker Bonilla MD Aug 05, 2019 11:34
--- NOTE | 2019-08-05 12:05 | NUR ---
HAND-OFF: Report given to EMMA Carnes. Endorsed plan of care.
--- NOTE | 2019-08-05 12:06 | NUR ---
NURSE NOTES: Patient received lying in bed, spontaneously opens eyes, no sign of pain noted. Orally intubated, ET 7.5 with Vent settings: AC-16, TV-450, FiO2 - 40%, PEEP - 5, no respiratory distress noted. Left nare NG tube in place, running Vital AF at 45 ml/hr, no residual noted, on aspiration precaution and semi-greer's position. Bilateral soft wrist restraints in place for patient's safety, skin intact, pulses palpable. Left upper arm PICC in place, asymptomatic, running Potassium IV administered by previous RN. Suprapubic catheter in place, draining clear yellow urine. Patient Sinus Bradycardia on the monitor, rate of 58s. Heels offloaded. Will continue to monitor.
--- NOTE | 2019-08-05 12:43 | General Progress Note ---
Assessment/Plan Problem List: (1) Spina bifida ICD Codes: Q05.9 - Spina bifida, unspecified SNOMED: 29926097 Qualifiers: Qualified Codes: Q05.4 - Unspecified spina bifida with hydrocephalus (2) Respiratory failure with hypoxia ICD Codes: J96.91 - Respiratory failure, unspecified with hypoxia SNOMED: 20637182809356665 Qualifiers: Qualified Codes: J96.21 - Acute and chronic respiratory failure with hypoxia (3) Dysphagia ICD Codes: R13.10 - Dysphagia, unspecified SNOMED: 43234836, [id number] Status: not improved Assessment/Plan: NOW INTUBATED IN THE icu needs PEG trying to get hold of family for consent for PEG ppi repeat labs fu H&H NGTF for now s/p unit PRBC yesterday add shereen family wants to transfer the patient to [facility] and refusing PEG here at [place] hold laxatives Subjective ROS Limited/Unobtainable: No Allergies: Coded Allergies: PENICILLIN G (Verified Allergy, Unknown, 12/02/18) Tolerates cabapenem, cephalosporin PENICILLINS (Unverified Allergy, Unknown, 12/02/18) Objective Last 24 Hour Vital Signs Date Time Temp Pulse Resp B/P (MAP) Pulse Ox O2 Delivery O2 Flow Rate FiO2 08/05/19 12:00 40 08/05/19 12:00 65 19 104/79 (87) 100 08/05/19 11:29 67 17 99 Mechanical Ventilator 40 68 16 40 08/05/19 11:00 69 17 113/53 (73) 100 08/05/19 10:00 61 16 113/56 (75) 98 08/05/19 09:29 59 16 40 08/05/19 09:00 59 16 111/55 (73) 99 08/05/19 08:00 40 08/05/19 08:00 68 08/05/19 08:00 98.9 66 15 121/59 (79) 98 08/05/19 08:00 Mechanical Ventilator Mechanical Ventilator 08/05/19 07:51 100 08/05/19 07:48 61 16 40 08/05/19 07:00 68 16 130/73 (92) 99 08/05/19 06:30 68 16 08/05/19 06:00 74 17 125/62 (83) 97 08/05/19 05:05 77 16 40 08/05/19 05:00 74 21 130/70 (90) 96 08/05/19 04:00 72 08/05/19 04:00 Mechanical Ventilator Mechanical Ventilator 08/05/19 04:00 98.8 79 18 124/71 (88) 96 08/05/19 04:00 40 08/05/19 03:00 64 16 105/51 (69) 98 08/05/19 02:53 81 18 99 Mechanical Ventilator 40 81 18 40 08/05/19 02:00 64 16 105/52 (69) 93 08/05/19 01:12 75 18 40 08/05/19 01:00 76 18 109/63 (78) 93 08/05/19 00:00 87 08/05/19 00:00 Mechanical Ventilator Mechanical Ventilator 08/05/19 00:00 40 08/05/19 00:00 99.0 78 19 120/56 (77) 96 08/04/19 23:00 79 17 112/64 (80) 94 08/04/19 22:42 76 16 98 Mechanical Ventilator 40 76 16 45 08/04/19 22:00 67 16 102/52 (69) 94 08/04/19 21:00 68 16 93/49 (64) 95 08/04/19 20:50 70 19 40 08/04/19 20:00 Mechanical Ventilator Mechanical Ventilator 08/04/19 20:00 98.8 84 17 104/51 (68) 92 08/04/19 20:00 40 08/04/19 20:00 88 08/04/19 19:10 77 16 100 Mechanical Ventilator 40 77 16 45 08/04/19 19:00 74 17 109/58 (75) 99 08/04/19 18:00 67 16 118/59 (78) 100 08/04/19 17:00 73 16 102/55 (71) 100 08/04/19 16:30 98 25 45 08/04/19 16:00 98.3 82 19 125/71 (89) 100 08/04/19 16:00 45 08/04/19 16:00 82 08/04/19 16:00 88 08/04/19 15:02 79 25 100 Mechanical Ventilator 45 85 22 45 08/04/19 15:00 85 19 125/55 (78) 100 08/04/19 14:38 45 08/04/19 14:00 79 21 124/66 (85) 100 08/04/19 13:10 82 24 45 08/04/19 13:00 81 18 119/62 (81) 100 Intake and Output 08/04/19 08/05/19 19:00 07:00 Intake Total 680 ml 955 ml Output Total 1245 ml 1400 ml Balance -565 ml -445 ml IV Total 110 ml 415 ml Tube Feeding 540 ml 540 ml Other 30 ml Output Urine Total 1245 ml 1400 ml # Bowel Movements 3 Laboratory Tests 08/05/19 04:00: White Blood Count 8.8, Red Blood Count 3.71L, Hemoglobin 8.5L, Hematocrit 26.9L , Mean Corpuscular Volume 73L, Mean Corpuscular Hemoglobin 23.0L, Mean Corpuscular Hemoglobin Concent 31.6L, Red Cell Distribution Width 19.8H, Platelet Count 279, Mean Platelet Volume 5.8L, Neutrophils (%) (Auto) 65.0, Lymphocytes (%) (Auto) 20.7, Monocytes (%) (Auto) 8.2, Eosinophils (%) (Auto) 5.5H, Basophils (%) (Auto) 0.6, Sodium Level 143, Potassium Level 3.2L, Chloride Level 102, Carbon Dioxide Level 31, Anion Gap 10, Blood Urea Nitrogen 10, Creatinine 0.4L, Estimat Glomerular Filtration Rate > 60, Glucose Level 103 , Calcium Level 7.8L Height (Feet): 4 Height (Inches): 10.00 Weight (Pounds): 160 General Appearance: lethargic EENT: normal ENT inspection Neck: supple Cardiovascular: normal rate Respiratory/Chest: decreased breath sounds Abdomen: normal bowel sounds, non tender, soft Extremities: non-tender Tim Davis MD Aug 05, 2019 12:43
--- NOTE | 2019-08-05 14:00 | NUR ---
NURSE NOTES: Patient repositioned. No signs of pain noted. Oral care provided. Bilateral heels offloaded.
--- NOTE | 2019-08-05 14:01 | Infectious Diseases Prog Note ---
Assessment/Plan Problems: (1) Pneumonia of both lower lobes Assessment & Plan: with B/L infiltrates worse on the right with hypoxemia , suspect recurrent aspiration , continue meropenem and zyvox coverage for two weeks , repeated sputum culture on 07/31 and 08/01 are negative for any pathogens. aspiration precaution, monitor CXR , may need tube feeding and tracheostomy . EOT 08/11/19 (2) Sepsis Assessment & Plan: with streptococcus alpha hemolytic , resolved already on zyvox for pneumonia coverage too , repeated blood culture is negative so far on 07/29 which confirm clearance , may need to remove the central line and put a new one if repeated culture in the future turns positive again , will treat with antibiotics for 2 weeks . EOT 08/11/19 (3) Decubitus skin ulcer Assessment & Plan: of the sacrum, continue off loading and local wound care as per hospital protocol (4) Respiratory failure with hypoxia Assessment & Plan: got worse again , with low O2 on ABG, was reintubated again and started on mechanical ventilation , monitor ABG and CXR as per pulmonary , aspiration precaution and keep HOB > 30 DEGREE (5) At risk for aspiration pneumonia Assessment & Plan: aspiration precaution, may benefit from tube feeding , since weak oral phase (6) Diarrhea Assessment & Plan: rule out C diff , will order stool for C diff toxin , keep contact isolation (7) Fever Assessment & Plan: rule out resistant bacteria, VS Fungal infection , VS C diff , already on wide spectrum antibiotics , will continue micafungin empirically pending repeated blood culture x 2 (8) Anemia Assessment & Plan: recurrent , rule out GI source VS alveolar hemorrhage, close monitor of H/H, and transfusion as needed . GI work up Assessment/Plan D/W RN, and consultants Subjective ROS Limited/Unobtainable: Yes Allergies: Coded Allergies: PENICILLIN G (Verified Allergy, Unknown, 12/02/18) Tolerates cabapenem, cephalosporin PENICILLINS (Unverified Allergy, Unknown, 12/02/18) Subjective she was still in ICU intubated , on mechanical ventilation due to respiratory distress and possible aspiration, has thin white secretions from her ET tube, fully awake and responsive , still congested with mild wheezing , no more fever today , no chills , has small bowel movement today with no diarrhea Objective Vital Signs Last 24 Hour Vital Signs Date Time Temp Pulse Resp B/P (MAP) Pulse Ox O2 Delivery O2 Flow Rate FiO2 08/05/19 13:19 64 16 40 08/05/19 13:00 99.1 66 18 116/71 (86) 98 08/05/19 12:00 40 08/05/19 12:00 Mechanical Ventilator Mechanical Ventilator 08/05/19 12:00 70 08/05/19 12:00 65 19 104/79 (87) 100 08/05/19 11:29 67 17 99 Mechanical Ventilator 40 68 16 40 08/05/19 11:00 69 17 113/53 (73) 100 08/05/19 10:00 61 16 113/56 (75) 98 08/05/19 09:29 59 16 40 08/05/19 09:00 59 16 111/55 (73) 99 08/05/19 08:00 40 08/05/19 08:00 68 08/05/19 08:00 98.9 66 15 121/59 (79) 98 08/05/19 08:00 Mechanical Ventilator Mechanical Ventilator 08/05/19 07:51 100 08/05/19 07:48 61 16 40 08/05/19 07:00 68 16 130/73 (92) 99 08/05/19 06:30 68 16 08/05/19 06:00 74 17 125/62 (83) 97 08/05/19 05:05 77 16 40 08/05/19 05:00 74 21 130/70 (90) 96 08/05/19 04:00 72 08/05/19 04:00 Mechanical Ventilator Mechanical Ventilator 08/05/19 04:00 98.8 79 18 124/71 (88) 96 08/05/19 04:00 40 08/05/19 03:00 64 16 105/51 (69) 98 08/05/19 02:53 81 18 99 Mechanical Ventilator 40 81 18 40 08/05/19 02:00 64 16 105/52 (69) 93 08/05/19 01:12 75 18 40 08/05/19 01:00 76 18 109/63 (78) 93 08/05/19 00:00 87 08/05/19 00:00 Mechanical Ventilator Mechanical Ventilator 08/05/19 00:00 40 08/05/19 00:00 99.0 78 19 120/56 (77) 96 08/04/19 23:00 79 17 112/64 (80) 94 08/04/19 22:42 76 16 98 Mechanical Ventilator 40 76 16 45 08/04/19 22:00 67 16 102/52 (69) 94 08/04/19 21:00 68 16 93/49 (64) 95 08/04/19 20:50 70 19 40 08/04/19 20:00 Mechanical Ventilator Mechanical Ventilator 08/04/19 20:00 98.8 84 17 104/51 (68) 92 08/04/19 20:00 40 08/04/19 20:00 88 08/04/19 19:10 77 16 100 Mechanical Ventilator 40 77 16 45 08/04/19 19:00 74 17 109/58 (75) 99 08/04/19 18:00 67 16 118/59 (78) 100 08/04/19 17:00 73 16 102/55 (71) 100 08/04/19 16:30 98 25 45 08/04/19 16:00 98.3 82 19 125/71 (89) 100 08/04/19 16:00 45 08/04/19 16:00 82 08/04/19 16:00 88 08/04/19 15:02 79 25 100 Mechanical Ventilator 45 85 22 45 08/04/19 15:00 85 19 125/55 (78) 100 08/04/19 14:38 45 08/04/19 14:00 79 21 124/66 (85) 100 Height (Feet): 4 Height (Inches): 10.00 Weight (Pounds): 160 General Appearance: WD/WN, no acute distress HEENT: normocephalic, atraumatic, anicteric, mucous membranes moist, PERRL Respiratory/Chest: chest wall non-tender, lungs clear, normal breath sounds, no respiratory distress, no accessory muscle use Cardiovascular: normal peripheral pulses, normal rate, regular rhythm, no gallop/murmur, no JVD Abdomen: normal bowel sounds, soft, non tender, no organomegaly, non distended , no mass, no scars Extremities: no cyanosis, no clubbing Skin: no rash, no lesions, no ulcers Neurologic/Psychiatric: no motor/sensory deficits, alert, responsive Lymphatic: no neck adenopathy, no groin adenopathy Musculoskeletal: normal muscle bulk, no effusion Microbiology Date/Time Source Procedure Growth Status 1/12/20 17:33 Blood Blood Culture - Preliminary NO GROWTH AFTER 24 HOURS Resulted 08/03/19 16:35 Blood Blood Culture - Preliminary NO GROWTH AFTER 24 HOURS Resulted 08/03/19 17:30 Urine,Suprapubic Urine Culture - Preliminary Resulted Laboratory Tests Test 08/05/19 04:00 White Blood Count 8.8 K/UL (4.8-10.8) Red Blood Count 3.71 M/UL (4.20-5.40) L Hemoglobin 8.5 G/DL (12.0-16.0) L Hematocrit 26.9 % (37.0-47.0) L Mean Corpuscular Volume 73 FL (80-99) L Mean Corpuscular Hemoglobin 23.0 PG (27.0-31.0) L Mean Corpuscular Hemoglobin Concent 31.6 G/DL (32.0-36.0) L Red Cell Distribution Width 19.8 % (11.6-14.8) H Platelet Count 279 K/UL (150-450) Mean Platelet Volume 5.8 FL (6.5-10.1) L Neutrophils (%) (Auto) 65.0 % (45.0-75.0) Lymphocytes (%) (Auto) 20.7 % (20.0-45.0) Monocytes (%) (Auto) 8.2 % (1.0-10.0) Eosinophils (%) (Auto) 5.5 % (0.0-3.0) H Basophils (%) (Auto) 0.6 % (0.0-2.0) Sodium Level 143 MMOL/L (136-145) Potassium Level 3.2 MMOL/L (3.5-5.1) L Chloride Level 102 MMOL/L (98-107) Carbon Dioxide Level 31 MMOL/L (21-32) Anion Gap 10 mmol/L (5-15) Blood Urea Nitrogen 10 mg/dL (7-18) Creatinine 0.4 MG/DL (0.55-1.30) L Estimat Glomerular Filtration Rate > 60 mL/min (>60) Glucose Level 103 MG/DL (74-106) Calcium Level 7.8 MG/DL (8.5-10.1) L Current Medications Medications (Trade) Dose Ordered Sig/Sandeep Route PRN Reason Start Time Stop Time Status Last Admin Dose Admin Acetaminophen (Tylenol) 650 mg Q6H PRN GT Mild Pain/Temp > 100.5 07/31/19 12:45 08/11/19 12:43 08/03/19 09:32 Acetylcysteine (Mucomyst) 400 mg Q4HRT N 08/01/19 11:00 08/16/19 18:59 08/05/19 11:32 Albuterol/ Ipratropium (Albuterol/ Ipratropium) 3 ml Q4HRT N 08/02/19 03:00 08/07/19 02:59 08/05/19 11:32 Chlorhexidine Gluconate (Debora-Hex 2%) 1 applic DAILY@2000 TOPIC 07/31/19 20:00 08/13/19 19:59 08/04/19 21:19 Heparin Sodium (Porcine) (Heparin 5000 units/ml) 5,000 units EVERY 12 HOURS SUBQ 08/04/19 21:00 09/03/19 20:59 08/05/19 08:44 Linezolid 300 ml @ 300 mls/hr Q12HR@0500,1700 IVPB 07/31/19 17:00 08/11/19 23:59 08/05/19 04:39 Lorazepam (Ativan 2mg/ml 1ml) 2 mg Q4H PRN IV For Anxiety 07/31/19 14:00 08/07/19 13:59 Meropenem 1 gm/ Sodium Chloride 55 ml @ 110 mls/hr Q8H IVPB 07/31/19 18:00 08/11/19 23:59 08/05/19 09:37 Metoclopramide HCl (Reglan) 5 mg Q6H PRN IVP Nausea & Vomiting 08/04/19 10:00 09/03/19 09:59 Micafungin Sodium 100 mg/Sodium Chloride 110 ml @ 110 mls/hr Q24H IVPB 08/03/19 16:00 08/11/19 23:59 08/04/19 16:56 Morphine Sulfate (Morphine Sulfate) 4 mg Q4H PRN IVP Severe Pain (Pain Scale 7-10) 07/31/19 14:00 08/07/19 13:59 Pantoprazole (Protonix) 40 mg DAILY IV 08/01/19 09:00 08/31/19 08:59 08/05/19 08:44 Potassium Chloride 100 ml @ 50 mls/hr ONCE ONCE IVPB 08/05/19 13:00 08/05/19 14:59 08/05/19 13:13 Gigi Sanabria M.D. Aug 05, 2019 14:01
[2019-08-05] MEDS: Micafungin 100 MG in NS 110 ML IVPB SCH (16:00)
--- NOTE | 2019-08-05 16:30 | NUR ---
NURSE NOTES: Family member at bedside visiting patient. Patient with no complains of pain.
--- NOTE | 2019-08-05 18:58 | Internal Med Progress Note ---
Subjective Date of Service: Aug 05, 2019 Physician Name LluviaNiraj Attending Physician Wil Masters MD Current Medications Medications (Trade) Dose Ordered Sig/Sandeep Route PRN Reason Start Time Stop Time Status Last Admin Dose Admin Acetaminophen (Tylenol) 650 mg Q6H PRN GT Mild Pain/Temp > 100.5 07/31/19 12:45 08/11/19 12:43 08/03/19 09:32 Acetylcysteine (Mucomyst) 400 mg Q4HRT N 08/01/19 11:00 08/16/19 18:59 08/05/19 15:29 Albuterol/ Ipratropium (Albuterol/ Ipratropium) 3 ml Q4HRT HHN 08/02/19 03:00 08/07/19 02:59 08/05/19 15:29 Chlorhexidine Gluconate (Debora-Hex 2%) 1 applic DAILY@2000 TOPIC 07/31/19 20:00 08/13/19 19:59 08/04/19 21:19 Heparin Sodium (Porcine) (Heparin 5000 units/ml) 5,000 units EVERY 12 HOURS SUBQ 08/04/19 21:00 09/03/19 20:59 08/05/19 08:44 Linezolid 300 ml @ 300 mls/hr Q12HR@0500,1700 IVPB 07/31/19 17:00 08/11/19 23:59 08/05/19 17:50 Lorazepam (Ativan 2mg/ml 1ml) 2 mg Q4H PRN IV For Anxiety 07/31/19 14:00 08/07/19 13:59 Meropenem 1 gm/ Sodium Chloride 55 ml @ 110 mls/hr Q8H IVPB 07/31/19 18:00 08/11/19 23:59 08/05/19 17:45 Metoclopramide HCl (Reglan) 5 mg Q6H PRN IVP Nausea & Vomiting 08/04/19 10:00 09/03/19 09:59 Micafungin Sodium 100 mg/Sodium Chloride 110 ml @ 110 mls/hr Q24H IVPB 08/03/19 16:00 08/11/19 23:59 08/05/19 16:00 Morphine Sulfate (Morphine Sulfate) 4 mg Q4H PRN IVP Severe Pain (Pain Scale 7-10) 1/9/20 14:00 08/07/19 13:59 Pantoprazole (Protonix) 40 mg DAILY IV 08/01/19 09:00 08/31/19 08:59 08/05/19 08:44 Allergies: Coded Allergies: PENICILLIN G (Verified Allergy, Unknown, 12/02/18) Tolerates cabapenem, cephalosporin PENICILLINS (Unverified Allergy, Unknown, 12/02/18) ROS Limited/Unobtainable: Yes Subjective 49 YO F with pneumonia and respiratory failure. Intubated and sedated. Cover for Int Conor-DR Masters. ICU Objective Last Vital Signs Date Time Temp Pulse Resp B/P (MAP) Pulse Ox O2 Delivery O2 Flow Rate FiO2 08/05/19 18:00 63 17 130/117 (121) 100 08/05/19 17:16 40 08/05/19 16:00 Mechanical Ventilator Mechanical Ventilator 08/05/19 13:00 99.1 Laboratory Tests Test 08/05/19 04:00 White Blood Count 8.8 K/UL (4.8-10.8) Red Blood Count 3.71 M/UL (4.20-5.40) L Hemoglobin 8.5 G/DL (12.0-16.0) L Hematocrit 26.9 % (37.0-47.0) L Mean Corpuscular Volume 73 FL (80-99) L Mean Corpuscular Hemoglobin 23.0 PG (27.0-31.0) L Mean Corpuscular Hemoglobin Concent 31.6 G/DL (32.0-36.0) L Red Cell Distribution Width 19.8 % (11.6-14.8) H Platelet Count 279 K/UL (150-450) Mean Platelet Volume 5.8 FL (6.5-10.1) L Neutrophils (%) (Auto) 65.0 % (45.0-75.0) Lymphocytes (%) (Auto) 20.7 % (20.0-45.0) Monocytes (%) (Auto) 8.2 % (1.0-10.0) Eosinophils (%) (Auto) 5.5 % (0.0-3.0) H Basophils (%) (Auto) 0.6 % (0.0-2.0) Sodium Level 143 MMOL/L (136-145) Potassium Level 3.2 MMOL/L (3.5-5.1) L Chloride Level 102 MMOL/L (98-107) Carbon Dioxide Level 31 MMOL/L (21-32) Anion Gap 10 mmol/L (5-15) Blood Urea Nitrogen 10 mg/dL (7-18) Creatinine 0.4 MG/DL (0.55-1.30) L Estimat Glomerular Filtration Rate > 60 mL/min (>60) Glucose Level 103 MG/DL (74-106) Calcium Level 7.8 MG/DL (8.5-10.1) L Microbiology Date/Time Source Procedure Growth Status 08/03/19 17:33 Blood Blood Culture - Preliminary NO GROWTH AFTER 24 HOURS Resulted 08/03/19 16:35 Blood Blood Culture - Preliminary NO GROWTH AFTER 24 HOURS Resulted 08/03/19 17:30 Urine,Suprapubic Urine Culture - Preliminary Resulted Intake and Output 08/04/19 08/05/19 19:00 07:00 Intake Total 680 ml 955 ml Output Total 1245 ml 1400 ml Balance -565 ml -445 ml IV Total 110 ml 415 ml Tube Feeding 540 ml 540 ml Other 30 ml Output Urine Total 1245 ml 1400 ml # Bowel Movements 3 Objective General Appearance: WD/WN, moderate distress EENT: PERRL/EOMI, normal ENT inspection Neck: non-tender, normal alignment, supple Cardiovascular: normal peripheral pulses, normal rate, regular rhythm, no gallop/murmur, no JVD Respiratory/Chest: Mech Vent; crackles/rales, rhonchi - bilaterally, expiratory wheezing Abdomen: normal bowel sounds, non tender, soft, no organomegaly, no mass Skin: normal pigmentation, warm/dry Assessment/Plan Problem List: (1) Respiratory failure with hypoxia Assessment & Plan: Mechanical vent per pulmonary=Dr Bonilla (2) Pneumonia of both lower lobes Assessment & Plan: See ID note. Continue meropenem and zyvox (3) UTI (urinary tract infection) Assessment & Plan: Pseudamonas, ESBL E. Coli, and vanco resistant enterococcus. See ID=Dr Sanabria. Continue meropenem, linezolid and micafugin (4) Sepsis (5) Paraplegia (6) Spina bifida Niraj Teixeira MD Aug 05, 2019 18:58
--- NOTE | 2019-08-05 19:24 | NUR ---
HAND-OFF: Report given to EMMA Jules.
--- NOTE | 2019-08-05 20:00 | NUR ---
NURSE NOTES: received report from judith rn pt non verbal orally intubated -vent with o2 sat 100 o/o no acute resp distress reposition and suction on guillermo soft wrest restraint non complaint
[2019-08-05] MEDS: Dyna-Hex 2% Top Sol 2oz TOPIC SCH (20:03)
--- NOTE | 2019-08-05 22:00 | NUR ---
NURSE NOTES: family at bed side reposition and suction
[2019-08-06] VITALS (25 sets, daily range): BP systolic 81–131; BP diastolic 44–77
--- NOTE | 2019-08-06 | NUR ---
NURSE NOTES: no acute resp distress
--- NOTE | 2019-08-06 02:00 | NUR ---
NURSE NOTES: REPOSITION AND SUCTION TOLERATING TUBE FEEDING NO RESIDUAL
[2019-08-06] MEDS: Meropenem 1 GM in NS 55 ML IVPB SCH ×3 (02:25→17:16)
--- NOTE | 2019-08-06 04:00 | NUR ---
NURSE NOTES: HADE SOFT BM SPECIMEN SENT TO LAB FOR OB COMPLETE BED BATH DONE
[2019-08-06] MEDS: Albuterol/Ipratropium 3ml neb HHN SCH ×6 (04:18→22:35)
[2019-08-06] MEDS: Acetylcysteine 20% Soln 4ml HHN SCH ×6 (04:19→22:36)
--- NOTE | 2019-08-06 06:00 | NUR ---
NURSE NOTES: PT ASLEEP NO ACUTE RESP DISTRESS NOTED
--- NOTE | 2019-08-06 07:33 | NUR ---
HAND-OFF: Report given to RAMEZ CARTER USING SBAR.
--- NOTE | 2019-08-06 07:35 | NUR ---
NURSE NOTES: LATE ENTRY: RECEIVED REPORT FROM CHAYITO Rodriguez PT IN BED, EYES OPEN, PUPILS SLUGGISH 3MM. GAG HYPOACTIVE. PT INTUBATED ETTUBE 7.5, 24CM AT LIP. AC 16, VT 450, FI02 40%, PEEP 5. SECRETIONS SMALL. LT NARES NGT. VITAL A.F 1.2 RUNNING AT 45ML/HR. ABDOMEN ROUND, NON TENDER. BOWEL SOUNDS HYPOACTIVE. NO BM AT THIS TIME. KNOTT DRAINING LIGHT YELLOW URINE. JASON PICC TKO. PT CALM, NO S/S OF PAIN. BILATERAL RESTRAINTS IN PLACE. AX TEMP 99.1, COOLING MEASURES IN PLACE. SKIN- SEE ASSESSMENT. CONTACT PRECAUTIONS IN PLACE. BED LOCKED IN LOW POSITION. WILL CONTINUE TO MONITOR PT.
[2019-08-06] MEDS: Heparin 5000 units/ml inj SUBQ SCH ×2 (09:00→20:53)
--- NOTE | 2019-08-06 09:32 | General Progress Note ---
Assessment/Plan Problem List: (1) Spina bifida ICD Codes: Q05.9 - Spina bifida, unspecified SNOMED: 42272408 Qualifiers: Qualified Codes: Q05.4 - Unspecified spina bifida with hydrocephalus (2) Respiratory failure with hypoxia ICD Codes: J96.91 - Respiratory failure, unspecified with hypoxia SNOMED: 12908234246819516 Qualifiers: Qualified Codes: J96.21 - Acute and chronic respiratory failure with hypoxia (3) Dysphagia ICD Codes: R13.10 - Dysphagia, unspecified SNOMED: 74971379, [id number] Status: not improved Assessment/Plan: NOW INTUBATED IN THE icu needs PEG trying to get hold of family for consent for PEG ppi repeat labs fu H&H NGTF for now s/p unit PRBC this week stool ob neg x1 reglan family wants to transfer the patient to [facility] and refusing PEG here at [place] Subjective ROS Limited/Unobtainable: No Allergies: Coded Allergies: PENICILLIN G (Verified Allergy, Unknown, 12/02/18) Tolerates cabapenem, cephalosporin PENICILLINS (Unverified Allergy, Unknown, 12/02/18) Objective Last 24 Hour Vital Signs Date Time Temp Pulse Resp B/P (MAP) Pulse Ox O2 Delivery O2 Flow Rate FiO2 08/06/19 07:08 64 20 100 Mechanical Ventilator 40 62 20 40 08/06/19 07:00 60 18 99/52 (68) 99 08/06/19 06:00 68 16 08/06/19 06:00 60 18 99/52 (68) 99 08/06/19 05:00 74 20 124/63 (83) 98 08/06/19 04:52 73 16 40 08/06/19 04:02 77 17 100 Mechanical Ventilator 40 77 17 40 08/06/19 04:00 62 08/06/19 04:00 40 08/06/19 04:00 99.1 69 23 112/77 (89) 99 08/06/19 04:00 Mechanical Ventilator Mechanical Ventilator 08/06/19 03:04 76 17 111/62 (78) 98 08/06/19 03:00 72 17 81/44 (56) 99 08/06/19 02:00 69 27 103/55 (71) 99 08/06/19 01:00 66 19 120/62 (81) 100 08/06/19 00:54 72 16 40 08/06/19 00:00 Mechanical Ventilator Mechanical Ventilator 08/06/19 00:00 99.0 72 22 129/70 (89) 100 08/06/19 00:00 40 08/06/19 00:00 71 08/05/19 23:00 83 21 129/68 (88) 97 08/05/19 22:43 75 16 100 Mechanical Ventilator 40 75 16 40 08/05/19 22:00 81 16 132/68 (89) 99 08/05/19 21:11 69 16 40 08/05/19 21:00 88 22 126/65 (85) 98 08/05/19 20:00 99.4 93 22 144/80 (101) 91 08/05/19 20:00 Mechanical Ventilator Mechanical Ventilator 08/05/19 20:00 40 08/05/19 20:00 84 08/05/19 19:22 72 18 98 Mechanical Ventilator 40 71 18 40 08/05/19 19:00 80 15 142/71 (94) 99 08/05/19 18:00 63 17 130/117 (121) 100 08/05/19 17:16 64 16 40 08/05/19 17:00 69 16 122/68 (86) 100 08/05/19 16:00 66 08/05/19 16:00 Mechanical Ventilator Mechanical Ventilator 08/05/19 16:00 40 08/05/19 16:00 77 20 140/72 (94) 100 08/05/19 15:29 68 17 98 Mechanical Ventilator 40 66 16 40 08/05/19 15:00 68 17 125/70 (88) 99 08/05/19 14:00 60 16 108/50 (69) 100 08/05/19 13:19 64 16 40 08/05/19 13:00 99.1 66 18 116/71 (86) 98 08/05/19 12:00 40 08/05/19 12:00 Mechanical Ventilator Mechanical Ventilator 08/05/19 12:00 70 08/05/19 12:00 65 19 104/79 (87) 100 08/05/19 11:29 67 17 99 Mechanical Ventilator 40 68 16 40 08/05/19 11:00 69 17 113/53 (73) 100 08/05/19 10:00 61 16 113/56 (75) 98 Intake and Output 08/05/19 08/06/19 19:00 07:00 Intake Total 575 ml 1295 ml Output Total 1530 ml 1750 ml Balance -955 ml -455 ml Intake Free Water 30 ml 80 ml IV Total 50 ml 630 ml Tube Feeding 495 ml 585 ml Output Urine Total 1530 ml 1750 ml # Bowel Movements 1 Laboratory Tests 08/06/19 04:00: Stool Occult Blood [Pending] Height (Feet): 4 Height (Inches): 10.00 Weight (Pounds): 153 General Appearance: lethargic EENT: normal ENT inspection Neck: supple Cardiovascular: tachycardia Respiratory/Chest: decreased breath sounds Abdomen: normal bowel sounds, non tender, soft Extremities: non-tender Tim Davis MD Aug 06, 2019 09:32
[2019-08-06] MEDS: Pantoprazole Inj IV SCH (09:56)
--- NOTE | 2019-08-06 12:02 | NUR ---
NURSE NOTES: LATE ENTRY: TV ON, PT IN BED, EYES OPEN. PT INTUBATED ETTUBE 7.5, 24CM AT LIP. AC 16, VT 450, FI02 60%, PEEP 5. WEANING SINCE 0900 ON P12 60%. VSS. SECRETIONS SCANT. VITAL A.F 1.2 RUNNING AT 45ML/HR. NO RESIDUALS NOTED. ONE LARGE LOOSE STOOL, LIGHT BROWN. JASON PICC TKO. JASON SWELLING NOTED, NON PITTING. PT CALM, NO S/S OF PAIN. BILATERAL RESTRAINTS IN PLACE. A FEBRILE. SKIN- SEE ASSESSMENT. CONTACT PRECAUTIONS IN PLACE. BED LOCKED IN LOW POSITION. WILL CONTINUE TO MONITOR PT.
--- NOTE | 2019-08-06 12:51 | Internal Med Progress Note ---
Subjective Date of Service: Aug 06, 2019 Physician Name LluviaNiraj Attending Physician Wil Masters MD Current Medications Medications (Trade) Dose Ordered Sig/Sandeep Route PRN Reason Start Time Stop Time Status Last Admin Dose Admin Acetaminophen (Tylenol) 650 mg Q6H PRN GT Mild Pain/Temp > 100.5 07/31/19 12:45 08/11/19 12:43 08/03/19 09:32 Acetylcysteine (Mucomyst) 400 mg Q4HRT N 08/01/19 11:00 08/16/19 18:59 08/06/19 11:23 Albuterol/ Ipratropium (Albuterol/ Ipratropium) 3 ml Q4HRT HHN 08/02/19 03:00 08/07/19 02:59 08/06/19 11:21 Chlorhexidine Gluconate (Debora-Hex 2%) 1 applic DAILY@2000 TOPIC 07/31/19 20:00 08/13/19 19:59 08/05/19 20:03 Heparin Sodium (Porcine) (Heparin 5000 units/ml) 5,000 units EVERY 12 HOURS SUBQ 08/04/19 21:00 09/03/19 20:59 08/05/19 21:10 Linezolid 300 ml @ 300 mls/hr Q12HR@0500,1700 IVPB 07/31/19 17:00 08/11/19 23:59 08/06/19 05:08 Lorazepam (Ativan 2mg/ml 1ml) 2 mg Q4H PRN IV For Anxiety 07/31/19 14:00 08/07/19 13:59 Meropenem 1 gm/ Sodium Chloride 55 ml @ 110 mls/hr Q8H IVPB 07/31/19 18:00 08/11/19 23:59 08/06/19 09:56 Metoclopramide HCl (Reglan) 5 mg Q6H PRN IVP Nausea & Vomiting 08/04/19 10:00 09/03/19 09:59 Micafungin Sodium 100 mg/Sodium Chloride 110 ml @ 110 mls/hr Q24H IVPB 08/03/19 16:00 08/11/19 23:59 08/05/19 16:00 Morphine Sulfate (Morphine Sulfate) 4 mg Q4H PRN IVP Severe Pain (Pain Scale 7-10) 07/31/19 14:00 08/07/19 13:59 Pantoprazole (Protonix) 40 mg DAILY IV 08/01/19 09:00 08/31/19 08:59 08/06/19 09:56 Allergies: Coded Allergies: PENICILLIN G (Verified Allergy, Unknown, 12/02/18) Tolerates cabapenem, cephalosporin PENICILLINS (Unverified Allergy, Unknown, 12/02/18) ROS Limited/Unobtainable: Yes Subjective 49 YO F with pneumonia and respiratory failure. Intubated and sedated. Cover for Int Med-DR Masters. ICU Objective Last Vital Signs Date Time Temp Pulse Resp B/P (MAP) Pulse Ox O2 Delivery O2 Flow Rate FiO2 08/06/19 11:12 68 22 100 Mechanical Ventilator 40 72 23 40 08/06/19 10:00 125/67 (86) 08/06/19 08:00 99.1 Laboratory Tests Test 08/06/19 04:00 Stool Occult Blood Negative (NEGATIVE) Arterial Blood pH 7.532 (7.350-7.450) Arterial Blood Partial Pressure CO2 35.3 mmHg (35.0-45.0) Arterial Blood Partial Pressure O2 114.1 mmHg (75.0-100.0) H Arterial Blood HCO3 29.0 mmol/L (22.0-26.0) H Arterial Blood Oxygen Saturation 98.0 % (95-100) Arterial Blood Base Excess 6.1 (-2-2) H Gerard Test Positive Microbiology Date/Time Source Procedure Growth Status 08/03/19 17:33 Blood Blood Culture - Preliminary NO GROWTH AFTER 48 HOURS Resulted 08/03/19 16:35 Blood Blood Culture - Preliminary NO GROWTH AFTER 48 HOURS Resulted 08/03/19 17:30 Urine,Suprapubic Urine Culture - Preliminary YEAST Resulted Intake and Output 08/05/19 08/06/19 19:00 07:00 Intake Total 575 ml 1295 ml Output Total 1530 ml 1750 ml Balance -955 ml -455 ml Intake Free Water 30 ml 80 ml IV Total 50 ml 630 ml Tube Feeding 495 ml 585 ml Output Urine Total 1530 ml 1750 ml # Bowel Movements 1 Objective General Appearance: WD/WN, moderate distress EENT: PERRL/EOMI, normal ENT inspection Neck: non-tender, normal alignment, supple Cardiovascular: normal peripheral pulses, normal rate, regular rhythm, no gallop/murmur, no JVD Respiratory/Chest: Mech Vent; crackles/rales, rhonchi - bilaterally, expiratory wheezing Abdomen: normal bowel sounds, non tender, soft, no organomegaly, no mass Skin: normal pigmentation, warm/dry Assessment/Plan Problem List: (1) Respiratory failure with hypoxia Assessment & Plan: Mechanical vent per pulmonary=Dr Bonilla (2) Pneumonia of both lower lobes Assessment & Plan: See ID note. Continue meropenem and zyvox (3) UTI (urinary tract infection) Assessment & Plan: Pseudamonas, ESBL E. Coli, and vanco resistant enterococcus. See ID=Dr Sanabria. Continue meropenem, linezolid and micafugin (4) Sepsis (5) Paraplegia (6) Spina bifida Niraj Teixeira MD Aug 06, 2019 12:51
--- NOTE | 2019-08-06 13:42 | NUR ---
NURSE NOTES: MD MONDRAGON HERE TO SEE PT. ABG RESULTS ON CURRENT SETTINGS PH 7.532, PCO2 35.3, PO2 114.1, HCO3 29. ORDER TO DECREASE, ABG IN AM VT TO 400
--- NOTE | 2019-08-06 14:40 | Pulmonolgy Critical Care Note ---
Critical Care - Asmt/Plan Assessment/Plan: (1) Pneumonia of both lower lobes Assessment & Plan: VDRF, intubated 07/12/19, S/P FOB 07/12/19; Reintubated (2) Catheter-associated urinary tract infection Assessment & Plan: PsA and proteus (3) Respiratory failure with hypoxia Assessment & Plan: Acute on chronic hypercapnic and hypoxemic RF 2/2 PNA VDRF as able Duplex neg, minimally elevated d-dimer, unlikely VTE and already on a NOAC (4) HCAP (healthcare-associated pneumonia) (5) Paraplegia (6) Sepsis (7) Suprapubic catheter (8) Restrictive lung disease due to kyphoscoliosis (9) Decubitus skin ulcer (10) Spina bifida (11) Anemia, acute Plan: * cont mechanical ventilatory support, wean as tolerated, drop TV to 400 * PS trials, start at 12 and down as tolerated * Monitor ABG * Abx per ID * Good pulmonary hygiene: duonebs and mucomyst q4 * Replete electrolytes as neded * cont to hold eliquis given drop in H/H, monitor, f/u stool occult blood * given the recurrent nature of this patient's respiratory failure, immobile status, impaired swallow mechanisim, may need tracheostomy * needs PEG tube * Unclear if will be able to transfer to [facility] as no bed available there Respiratory: adjust tidal volume, ABG Cardiac: continue to monitor HR/BP Renal: F/U I&O Infectious Disease: continue antibiotics Neurologic: keep patient comfortable Time Spent (Minutes): 40 - cc Discussed with: nurses Critical Care - Objective Last 24 Hour Vital Signs Date Time Temp Pulse Resp B/P (MAP) Pulse Ox O2 Delivery O2 Flow Rate FiO2 08/06/19 13:40 70 22 40 08/06/19 13:00 65 17 116/57 (76) 99 08/06/19 12:00 59 08/06/19 12:00 Mechanical Ventilator Mechanical Ventilator 08/06/19 12:00 40 08/06/19 12:00 98.6 61 16 126/72 (90) 98 08/06/19 11:12 68 22 100 Mechanical Ventilator 40 72 23 40 08/06/19 11:11 92 08/06/19 11:05 66 24 40 40 08/06/19 11:00 60 16 116/58 (77) 99 08/06/19 10:00 65 19 125/67 (86) 100 08/06/19 09:01 60 16 40 08/06/19 09:00 63 16 97/58 (71) 97 08/06/19 08:00 99.1 74 17 107/49 (68) 98 08/06/19 08:00 Mechanical Ventilator Mechanical Ventilator 08/06/19 08:00 40 08/06/19 08:00 74 08/06/19 07:08 64 20 100 Mechanical Ventilator 40 62 20 40 08/06/19 07:00 60 18 99/52 (68) 99 08/06/19 06:00 68 16 08/06/19 06:00 60 18 99/52 (68) 99 08/06/19 05:00 74 20 124/63 (83) 98 08/06/19 04:52 73 16 40 08/06/19 04:02 77 17 100 Mechanical Ventilator 40 77 17 40 08/06/19 04:00 62 08/06/19 04:00 40 08/06/19 04:00 99.1 69 23 112/77 (89) 99 08/06/19 04:00 Mechanical Ventilator Mechanical Ventilator 08/06/19 03:04 76 17 111/62 (78) 98 08/06/19 03:00 72 17 81/44 (56) 99 08/06/19 02:00 69 27 103/55 (71) 99 08/06/19 01:00 66 19 120/62 (81) 100 08/06/19 00:54 72 16 40 08/06/19 00:00 Mechanical Ventilator Mechanical Ventilator 08/06/19 00:00 99.0 72 22 129/70 (89) 100 08/06/19 00:00 40 08/06/19 00:00 71 08/05/19 23:00 83 21 129/68 (88) 97 08/05/19 22:43 75 16 100 Mechanical Ventilator 40 75 16 40 08/05/19 22:00 81 16 132/68 (89) 99 08/05/19 21:11 69 16 40 08/05/19 21:00 88 22 126/65 (85) 98 08/05/19 20:00 99.4 93 22 144/80 (101) 91 08/05/19 20:00 Mechanical Ventilator Mechanical Ventilator 08/05/19 20:00 40 08/05/19 20:00 84 08/05/19 19:22 72 18 98 Mechanical Ventilator 40 71 18 40 08/05/19 19:00 80 15 142/71 (94) 99 08/05/19 18:00 63 17 130/117 (121) 100 08/05/19 17:16 64 16 40 08/05/19 17:00 69 16 122/68 (86) 100 08/05/19 16:00 66 08/05/19 16:00 Mechanical Ventilator Mechanical Ventilator 08/05/19 16:00 40 08/05/19 16:00 77 20 140/72 (94) 100 08/05/19 15:29 68 17 98 Mechanical Ventilator 40 66 16 40 08/05/19 15:00 68 17 125/70 (88) 99 Status: awake Condition: improving HEENT: atraumatic Lungs: rhonchi Heart: HR/BP stable Abdomen: soft, non-tender Extremities: edema Micro: Microbiology Date/Time Source Procedure Growth Status 08/03/19 17:33 Blood Blood Culture - Preliminary NO GROWTH AFTER 48 HOURS Resulted 08/03/19 16:35 Blood Blood Culture - Preliminary NO GROWTH AFTER 48 HOURS Resulted 08/03/19 17:30 Urine,Suprapubic Urine Culture - Preliminary YEAST Resulted Accucheck: 114 Critical Care - Subjective ROS Limited/Unobtainable: Yes Interval Events: Thick secretions. Did not tolerate PS 8. ABG alkalotic this AM. No family at bedside. FI02: 40 Vent Support Breath Rate: 16 Vent Support Mode: AC Vent Tidal Volume: 400 Sputum Amount: Small PEEP: 5.0 PIP: 31 Tube Feeding Amount: 45 I&O: Intake and Output 08/05/19 08/06/19 19:00 07:00 Intake Total 575 ml 1295 ml Output Total 1530 ml 1750 ml Balance -955 ml -455 ml Intake Free Water 30 ml 80 ml IV Total 50 ml 630 ml Tube Feeding 495 ml 585 ml Output Urine Total 1530 ml 1750 ml # Bowel Movements 1 ET-Tube: 7.5 ET Position: 24 Walker Bonilla MD Aug 06, 2019 14:40
--- NOTE | 2019-08-06 16:00 | NUR ---
NURSE NOTES: LATE ENTRY: PT REPOSITIONED. RESTRAINTS RELEASED WHILE PROVIDING PT CARE. PT ABLE TO REACH NECK, MAKES ATTEMPTS TO PULL NGT. RESTRAINTS REAPPLIED. HOB>30. BED LOCKED IN LOW POSITION. CONTACT PRECAUTIONS IN PLACE.
[2019-08-06] MEDS: Micafungin 100 MG in NS 110 ML IVPB SCH (17:15)
--- NOTE | 2019-08-06 19:00 | NUR ---
HAND-OFF: Report given to CHAYITO Rodriguez PT IN NO ACUTE DISTRESS.
--- NOTE | 2019-08-06 19:23 | NUR ---
NURSE NOTES: received report from patito case pt orally intubated-vent with o2 sat 99 o/o no acute resp distress tolerating tube feeding no residual reposition and suction
--- NOTE | 2019-08-06 20:08 | Infectious Diseases Prog Note ---
Assessment/Plan Problems: (1) Pneumonia of both lower lobes Assessment & Plan: with B/L infiltrates worse on the right with hypoxemia , suspect recurrent aspiration , continue meropenem and zyvox coverage for two weeks , repeated sputum culture on 07/31 and 08/01 are negative for any pathogens. aspiration precaution, monitor CXR , may need tube feeding and tracheostomy . EOT 08/11/19 (2) Sepsis Assessment & Plan: with streptococcus alpha hemolytic , resolved already on zyvox for pneumonia coverage too , repeated blood culture is negative so far on 07/29 which confirm clearance , may need to remove the central line and put a new one if repeated culture in the future turns positive again , will treat with antibiotics for 2 weeks . EOT 08/11/19 (3) Decubitus skin ulcer Assessment & Plan: of the sacrum, continue off loading and local wound care as per hospital protocol (4) Respiratory failure with hypoxia Assessment & Plan: got worse again , with low O2 on ABG, was reintubated again and started on mechanical ventilation , monitor ABG and CXR as per pulmonary , aspiration precaution and keep HOB > 30 DEGREE (5) At risk for aspiration pneumonia Assessment & Plan: aspiration precaution, may benefit from tube feeding , since weak oral phase (6) Diarrhea Assessment & Plan: rule out C diff , will order stool for C diff toxin , keep contact isolation (7) Fever Assessment & Plan: unclear source , all repeated cultures are negative , except urine which grew yeast , already on wide spectrum antibiotics , will stop micafungin empirically and change the suprapubic catheter (8) Anemia Assessment & Plan: recurrent , rule out GI source VS alveolar hemorrhage, close monitor of H/H, and transfusion as needed . GI work up Assessment/Plan D/W RN, and consultants Subjective ROS Limited/Unobtainable: Yes Allergies: Coded Allergies: PENICILLIN G (Verified Allergy, Unknown, 12/02/18) Tolerates cabapenem, cephalosporin PENICILLINS (Unverified Allergy, Unknown, 12/02/18) Subjective she was still in ICU intubated , on mechanical ventilation due to respiratory distress and possible aspiration, has thin white secretions from her ET tube, fully awake and responsive , still congested with mild wheezing , no more fever today , no chills , has small bowel movement today with no diarrhea Objective Vital Signs Last 24 Hour Vital Signs Date Time Temp Pulse Resp B/P (MAP) Pulse Ox O2 Delivery O2 Flow Rate FiO2 08/06/19 19:07 55 16 100 Mechanical Ventilator 40 56 16 40 08/06/19 18:00 63 20 108/57 (74) 100 08/06/19 17:24 63 16 40 08/06/19 17:00 71 18 110/53 (72) 99 08/06/19 16:00 Mechanical Ventilator Mechanical Ventilator 08/06/19 16:00 57 08/06/19 16:00 40 08/06/19 16:00 99.1 65 17 120/69 (86) 99 08/06/19 15:07 64 19 99 Mechanical Ventilator 40 61 20 40 08/06/19 15:06 62 19 97 Mechanical Ventilator 40 08/06/19 15:00 60 18 120/61 (80) 100 08/06/19 14:00 63 18 120/58 (78) 99 08/06/19 13:40 70 22 40 08/06/19 13:00 65 17 116/57 (76) 99 08/06/19 12:00 59 08/06/19 12:00 Mechanical Ventilator Mechanical Ventilator 08/06/19 12:00 40 08/06/19 12:00 98.6 61 16 126/72 (90) 98 08/06/19 11:12 68 22 100 Mechanical Ventilator 40 72 23 40 08/06/19 11:11 92 08/06/19 11:05 66 24 40 40 08/06/19 11:00 60 16 116/58 (77) 99 08/06/19 10:00 65 19 125/67 (86) 100 08/06/19 09:01 60 16 40 08/06/19 09:00 63 16 97/58 (71) 97 08/06/19 08:00 99.1 74 17 107/49 (68) 98 08/06/19 08:00 Mechanical Ventilator Mechanical Ventilator 08/06/19 08:00 40 08/06/19 08:00 74 08/06/19 07:08 64 20 100 Mechanical Ventilator 40 62 20 40 08/06/19 07:00 60 18 99/52 (68) 99 08/06/19 06:00 68 16 08/06/19 06:00 60 18 99/52 (68) 99 08/06/19 05:00 74 20 124/63 (83) 98 08/06/19 04:52 73 16 40 1/15/20 04:02 77 17 100 Mechanical Ventilator 40 77 17 40 08/06/19 04:00 62 08/06/19 04:00 40 08/06/19 04:00 99.1 69 23 112/77 (89) 99 08/06/19 04:00 Mechanical Ventilator Mechanical Ventilator 08/06/19 03:04 76 17 111/62 (78) 98 08/06/19 03:00 72 17 81/44 (56) 99 08/06/19 02:00 69 27 103/55 (71) 99 08/06/19 01:00 66 19 120/62 (81) 100 08/06/19 00:54 72 16 40 08/06/19 00:00 Mechanical Ventilator Mechanical Ventilator 08/06/19 00:00 99.0 72 22 129/70 (89) 100 08/06/19 00:00 40 08/06/19 00:00 71 08/05/19 23:00 83 21 129/68 (88) 97 08/05/19 22:43 75 16 100 Mechanical Ventilator 40 75 16 40 08/05/19 22:00 81 16 132/68 (89) 99 08/05/19 21:11 69 16 40 08/05/19 21:00 88 22 126/65 (85) 98 Height (Feet): 4 Height (Inches): 10.00 Weight (Pounds): 153 General Appearance: WD/WN, no acute distress HEENT: normocephalic, atraumatic, anicteric, mucous membranes moist, PERRL Respiratory/Chest: chest wall non-tender, no respiratory distress, no accessory muscle use Cardiovascular: normal peripheral pulses, normal rate, regular rhythm, no gallop/murmur, no JVD Abdomen: normal bowel sounds, soft, non tender, no organomegaly, non distended , no mass, no scars Genitourinary: normal external genitalia Extremities: no cyanosis, no clubbing Skin: no rash, no lesions, no ulcers Neurologic/Psychiatric: hearings reporter II-XII grossly normal, alert, responsive Lymphatic: no neck adenopathy, no groin adenopathy Laboratory Tests Test 08/06/19 04:00 Stool Occult Blood Negative (NEGATIVE) Arterial Blood pH 7.532 (7.350-7.450) Arterial Blood Partial Pressure CO2 35.3 mmHg (35.0-45.0) Arterial Blood Partial Pressure O2 114.1 mmHg (75.0-100.0) H Arterial Blood HCO3 29.0 mmol/L (22.0-26.0) H Arterial Blood Oxygen Saturation 98.0 % (95-100) Arterial Blood Base Excess 6.1 (-2-2) H Gerard Test Positive Current Medications Medications (Trade) Dose Ordered Sig/Sandeep Route PRN Reason Start Time Stop Time Status Last Admin Dose Admin Acetaminophen (Tylenol) 650 mg Q6H PRN GT Mild Pain/Temp > 100.5 07/31/19 12:45 08/11/19 12:43 08/03/19 09:32 Acetylcysteine (Mucomyst) 400 mg Q4HRT N 08/01/19 11:00 08/16/19 18:59 08/06/19 19:07 Albuterol/ Ipratropium (Albuterol/ Ipratropium) 3 ml Q4HRT HHN 08/02/19 03:00 08/07/19 02:59 08/06/19 19:07 Chlorhexidine Gluconate (Debora-Hex 2%) 1 applic DAILY@2000 TOPIC 07/31/19 20:00 08/13/19 19:59 08/05/19 20:03 Heparin Sodium (Porcine) (Heparin 5000 units/ml) 5,000 units EVERY 12 HOURS SUBQ 08/04/19 21:00 09/03/19 20:59 08/05/19 21:10 Linezolid 300 ml @ 300 mls/hr Q12HR@0500,1700 IVPB 07/31/19 17:00 08/11/19 23:59 08/06/19 17:16 Lorazepam (Ativan 2mg/ml 1ml) 2 mg Q4H PRN IV For Anxiety 07/31/19 14:00 08/07/19 13:59 Meropenem 1 gm/ Sodium Chloride 55 ml @ 110 mls/hr Q8H IVPB 07/31/19 18:00 08/11/19 23:59 08/06/19 17:16 Metoclopramide HCl (Reglan) 5 mg Q6H PRN IVP Nausea & Vomiting 08/04/19 10:00 09/03/19 09:59 Micafungin Sodium 100 mg/Sodium Chloride 110 ml @ 110 mls/hr Q24H IVPB 08/03/19 16:00 08/11/19 23:59 08/06/19 17:15 Morphine Sulfate (Morphine Sulfate) 4 mg Q4H PRN IVP Severe Pain (Pain Scale 7-10) 07/31/19 14:00 08/07/19 13:59 Pantoprazole (Protonix) 40 mg DAILY IV 08/01/19 09:00 08/31/19 08:59 08/06/19 09:56 Gigi Sanabria M.D. Aug 06, 2019 20:08
[2019-08-06] MEDS: Dyna-Hex 2% Top Sol 2oz TOPIC SCH (20:19)
--- NOTE | 2019-08-06 21:14 | NUR ---
RESPIRATORY NOTE: RECEIVED THE PT ON VENT SETTINGS 16/ 400/ 40%/ +5. 7.5 ETT AND 23 CM AT THE LIP, SECURED WITH ANCHOR FAST. VENT PLUGGED INTO RED OUTLET AND BMV AT BEDSIDE. ALARMS ARE ON AND AUDIBLE. PT VITALS STABLE, SAT 98% ON 40% FIO2. B/S RHONCHI. SX MOD AMOUNT OF WHITE THICK SPUTUM THROUGH ETT. WILL CONTINUE TO MONITOR THROUGHOUT THE NIGHT.
[2019-08-07] VITALS (24 sets, daily range): BP systolic 94–129; BP diastolic 46–71
--- NOTE | 2019-08-07 | NUR ---
NURSE NOTES: REPOSITION AND SUCTION NO RESP DISTRESS NOTED
--- NOTE | 2019-08-07 00:25 | NUR ---
NURSE NOTES: FAMILY AT BEDSIDE VISITING
[2019-08-07] MEDS: Meropenem 1 GM in NS 55 ML IVPB SCH ×3 (02:13→17:48)
[2019-08-07] MEDS: Acetylcysteine 20% Soln 4ml HHN SCH ×6 (03:17→22:58)
--- NOTE | 2019-08-07 04:00 | NUR ---
NURSE NOTES: complete bed bath oral care and back care reposition and suction
[2019-08-07 05:44] LABS: BASOPHILS % (AUTO) 0.7 % (0.0-2.0); EOSINOPHILS % (AUTO) 6.8 % (0.0-3.0); HEMOGLOBIN 9.5 G/DL (12.0-16.0); LYMPHOCYTES % (AUTO) 21.9 % (20.0-45.0); MEAN CORPUSCULAR VOLUME 73 FL (80-99); MONOCYTES % (AUTO) 7.1 % (1.0-10.0); NEUTROPHILS % (AUTO) 63.5 % (45.0-75.0); PLATELET COUNT 337 K/UL (150-450); RED BLOOD COUNT 4.09 M/UL (4.20-5.40); RED CELL DISTRIBUTION WIDTH 20.3 % (11.6-14.8); WHITE BLOOD COUNT 9.7 K/UL (4.8-10.8)
[2019-08-07 05:56] LABS: ANION GAP 6 mmol/L (5-15); BLOOD UREA NITROGEN 10 mg/dL (7-18); CALCIUM 8.4 MG/DL (8.5-10.1); CARBON DIOXIDE 30 MMOL/L (21-32); CHLORIDE 103 MMOL/L (98-107); CREATININE 0.4 MG/DL (0.55-1.30); POTASSIUM 3.8 MMOL/L (3.5-5.1); SODIUM 139 MMOL/L (136-145)
--- NOTE | 2019-08-07 06:00 | NUR ---
NURSE NOTES: asleep hr sb tolerating tube feeding no residual
[2019-08-07] MEDS ORDERED: Albuterol ud Inhalation HHN SCH (07:00)
--- NOTE | 2019-08-07 07:00 | NUR ---
HAND-OFF: Report given to tania case using s bar.
--- NOTE | 2019-08-07 07:15 | NUR ---
NURSE NOTES: Received patient from EMMA Jules. Patient awake and calm at this time. patient answers questions by noding and shaking head. patient showing no sign of acute distress. Patient able to follow simple commands. patient orally intubated with size 7.5cm ET tube with 23cm at the lip line. ventilator setting AC 16, tidal volume 400, FiO2 40%, and PEEP 5. Patient tolerating setting with RR 20 and SpO2 98%. Patient showing sinus rhythm on the color television console monitor. Patient has NGT of the left nares that is patent, asymptomatic, and running tube feeding of vital AF at 75cc/hr at this time with no residual noted. Patient has suprapubic mena catheter that is patent and asymptomatic at this time. Patient putting out a large amount of clear, yellow urine. Patient has left upper arm PICC line that is patent, asymptomatic, and dressing dry and intact. IV saline locked at this time. Patient has sacral old/healed wound related to her spinal bifida. No open wound noted. patient has some weeping noted on her right upper arm with mild edema and no erythema noted. Patient has order for ventilator weaning trial this morning. Will follow up with respiratory therapist. Patient bed in low position with bed alarm on and call light in reach. Oral care and repositioning performed. Will continue to monitor. Addendum: 08/07/19 at 0814 by Vanda Flores RN Patient on low air loss mattress for skin protection.
[2019-08-07] MEDS: Albuterol/Ipratropium 3ml neb HHN SCH ×5 (07:36→22:58)
--- NOTE | 2019-08-07 09:00 | Pulmonolgy Critical Care Note ---
Critical Care - Asmt/Plan Assessment/Plan: (1) Pneumonia of both lower lobes Assessment & Plan: VDRF, intubated 07/12/19, S/P FOB 07/12/19; Reintubated (2) Catheter-associated urinary tract infection Assessment & Plan: PsA and proteus (3) Respiratory failure with hypoxia Assessment & Plan: Acute on chronic hypercapnic and hypoxemic RF 2/2 PNA VDRF as able Duplex neg, minimally elevated d-dimer, unlikely VTE and already on a NOAC (4) HCAP (healthcare-associated pneumonia) (5) Paraplegia (6) Sepsis (7) Suprapubic catheter (8) Restrictive lung disease due to kyphoscoliosis (9) Decubitus skin ulcer (10) Spina bifida (11) Anemia, acute Plan: * cont mechanical ventilatory support, wean as tolerated * PS trials, start at 12 and down as tolerated * Monitor ABG * Abx per ID * Good pulmonary hygiene: duonebs and mucomyst q4 * Replete electrolytes as neded * cont to hold eliquis given drop in H/H, monitor, f/u stool occult blood * given the recurrent nature of this patient's respiratory failure, immobile status, impaired swallow mechanisim, may need tracheostomy * needs PEG tube * Unclear if will be able to transfer to [facility] as no bed available there Respiratory: monitor respiratory rate, ABG Cardiac: continue to monitor HR/BP Renal: F/U I&O Infectious Disease: continue antibiotics Neurologic: keep patient comfortable Time Spent (Minutes): 40 - cc Critical Care - Objective Last 24 Hour Vital Signs Date Time Temp Pulse Resp B/P (MAP) Pulse Ox O2 Delivery O2 Flow Rate FiO2 08/07/19 08:00 40 08/07/19 08:00 98.4 54 16 95/46 (62) 99 08/07/19 08:00 Mechanical Ventilator Mechanical Ventilator 08/07/19 07:36 59 19 100 Mechanical Ventilator 40 58 16 40 08/07/19 07:00 63 21 124/52 (76) 97 08/07/19 06:36 68 16 08/07/19 06:00 57 16 104/55 (71) 97 08/07/19 05:01 62 17 40 08/07/19 05:00 63 19 112/60 (77) 98 08/07/19 04:00 98.8 64 19 99/48 (65) 97 08/07/19 04:00 40 08/07/19 04:00 Mechanical Ventilator Mechanical Ventilator 08/07/19 04:00 56 08/07/19 03:17 62 16 100 Mechanical Ventilator 40 62 16 40 08/07/19 03:00 62 16 97/49 (65) 97 08/07/19 02:00 55 16 94/49 (64) 98 08/07/19 01:00 60 18 129/64 (85) 99 08/07/19 00:52 60 18 40 08/07/19 00:00 Mechanical Ventilator Mechanical Ventilator 08/07/19 00:00 60 08/07/19 00:00 40 08/07/19 00:00 98.6 65 13 110/68 (82) 97 08/06/19 23:00 64 16 111/56 (74) 97 08/06/19 22:37 67 18 99 Mechanical Ventilator 40 61 16 40 08/06/19 22:00 67 18 118/70 (86) 99 08/06/19 21:00 63 16 126/59 (81) 98 08/06/19 20:42 63 20 40 08/06/19 20:00 99.1 73 19 131/68 (89) 100 08/06/19 20:00 63 08/06/19 20:00 40 08/06/19 20:00 Mechanical Ventilator Mechanical Ventilator 08/06/19 19:07 55 16 100 Mechanical Ventilator 40 56 16 40 08/06/19 19:00 60 16 121/59 (79) 100 08/06/19 18:00 63 20 108/57 (74) 100 08/06/19 17:24 63 16 40 08/06/19 17:00 71 18 110/53 (72) 99 08/06/19 16:00 Mechanical Ventilator Mechanical Ventilator 08/06/19 16:00 57 08/06/19 16:00 40 08/06/19 16:00 99.1 65 17 120/69 (86) 99 08/06/19 15:07 64 19 99 Mechanical Ventilator 40 61 20 40 08/06/19 15:06 62 19 97 Mechanical Ventilator 40 08/06/19 15:00 60 18 120/61 (80) 100 08/06/19 14:00 63 18 120/58 (78) 99 08/06/19 13:40 70 22 40 08/06/19 13:00 65 17 116/57 (76) 99 08/06/19 12:00 59 08/06/19 12:00 Mechanical Ventilator Mechanical Ventilator 08/06/19 12:00 40 08/06/19 12:00 98.6 61 16 126/72 (90) 98 08/06/19 11:12 68 22 100 Mechanical Ventilator 40 72 23 40 08/06/19 11:11 92 08/06/19 11:05 66 24 40 40 08/06/19 11:00 60 16 116/58 (77) 99 08/06/19 10:00 65 19 125/67 (86) 100 08/06/19 09:01 60 16 40 08/06/19 09:00 63 16 97/58 (71) 97 Status: sedated Condition: improving HEENT: atraumatic Lungs: rales Heart: HR/BP stable Abdomen: soft, non-tender Extremities: no C/C/E Accucheck: 114 Critical Care - Subjective ROS Limited/Unobtainable: Yes Interval Events: Minimal secretions. Failed weaning yesterday. No acute events. FI02: 40 Vent Support Breath Rate: 16 Vent Support Mode: AC Vent Tidal Volume: 400 Sputum Amount: Small PEEP: 5.0 PIP: 21 Tube Feeding Amount: 45 I&O: Intake and Output 08/06/19 08/07/19 19:00 07:00 Intake Total 1170 ml 990 ml Output Total 835 ml 1780 ml Balance 335 ml -790 ml Intake Free Water 100 ml IV Total 630 ml 300 ml Tube Feeding 540 ml 540 ml Blood Product 50 ml Output Urine Total 835 ml 1780 ml # Bowel Movements 4 4 ET-Tube: 7.5 ET Position: 24 Walker Bonilla MD Aug 07, 2019 09:00
[2019-08-07] MEDS: Pantoprazole Inj IV SCH (09:36)
[2019-08-07] MEDS: Heparin 5000 units/ml inj SUBQ SCH ×2 (09:37→20:49)
--- NOTE | 2019-08-07 09:55 | NUR ---
NURSE NOTES: Patient weaning at this time on CPAP pressure support 12 with FiO2 35%. Patient tolerating weaning trial with no sign of resp distress. RR 24. SpO2 96%. Will continue to monitor.
--- NOTE | 2019-08-07 11:19 | General Progress Note ---
Assessment/Plan Problem List: (1) Spina bifida ICD Codes: Q05.9 - Spina bifida, unspecified SNOMED: 75704690 Qualifiers: Qualified Codes: Q05.4 - Unspecified spina bifida with hydrocephalus (2) Respiratory failure with hypoxia ICD Codes: J96.91 - Respiratory failure, unspecified with hypoxia SNOMED: 40637310774988796 Qualifiers: Qualified Codes: J96.21 - Acute and chronic respiratory failure with hypoxia (3) Dysphagia ICD Codes: R13.10 - Dysphagia, unspecified SNOMED: 33232980, 455387130 Status: not improved Assessment/Plan: NOW INTUBATED IN THE icu needs PEG trying to get hold of family for consent for PEG ppi repeat labs fu H&H NGTF for now s/p unit PRBC this week stool ob neg x1 reglan family wants to transfer the patient to [facility] and refusing PEG here at [place] Subjective ROS Limited/Unobtainable: No Allergies: Coded Allergies: PENICILLIN G (Verified Allergy, Unknown, 12/02/18) Tolerates cabapenem, cephalosporin PENICILLINS (Unverified Allergy, Unknown, 12/02/18) Objective Last 24 Hour Vital Signs Date Time Temp Pulse Resp B/P (MAP) Pulse Ox O2 Delivery O2 Flow Rate FiO2 08/07/19 11:00 63 20 100 Mechanical Ventilator 40 57 16 35 08/07/19 10:00 70 21 102/53 (69) 97 08/07/19 09:10 98 08/07/19 09:10 66 19 35 40 08/07/19 09:00 63 17 119/60 (79) 90 08/07/19 08:00 40 08/07/19 08:00 98.4 54 16 95/46 (62) 99 08/07/19 08:00 Mechanical Ventilator Mechanical Ventilator 08/07/19 08:00 56 08/07/19 07:36 59 19 100 Mechanical Ventilator 40 58 16 40 08/07/19 07:00 63 21 124/52 (76) 97 08/07/19 06:36 68 16 08/07/19 06:00 57 16 104/55 (71) 97 08/07/19 05:01 62 17 40 08/07/19 05:00 63 19 112/60 (77) 98 08/07/19 04:00 98.8 64 19 99/48 (65) 97 08/07/19 04:00 40 08/07/19 04:00 Mechanical Ventilator Mechanical Ventilator 08/07/19 04:00 56 08/07/19 03:17 62 16 100 Mechanical Ventilator 40 62 16 40 08/07/19 03:00 62 16 97/49 (65) 97 08/07/19 02:00 55 16 94/49 (64) 98 08/07/19 01:00 60 18 129/64 (85) 99 08/07/19 00:52 60 18 40 08/07/19 00:00 Mechanical Ventilator Mechanical Ventilator 08/07/19 00:00 60 08/07/19 00:00 40 08/07/19 00:00 98.6 65 13 110/68 (82) 97 08/06/19 23:00 64 16 111/56 (74) 97 08/06/19 22:37 67 18 99 Mechanical Ventilator 40 61 16 40 08/06/19 22:00 67 18 118/70 (86) 99 08/06/19 21:00 63 16 126/59 (81) 98 08/06/19 20:42 63 20 40 08/06/19 20:00 99.1 73 19 131/68 (89) 100 08/06/19 20:00 63 08/06/19 20:00 40 08/06/19 20:00 Mechanical Ventilator Mechanical Ventilator 08/06/19 19:07 55 16 100 Mechanical Ventilator 40 56 16 40 08/06/19 19:00 60 16 121/59 (79) 100 08/06/19 18:00 63 20 108/57 (74) 100 08/06/19 17:24 63 16 40 08/06/19 17:00 71 18 110/53 (72) 99 08/06/19 16:00 Mechanical Ventilator Mechanical Ventilator 08/06/19 16:00 57 08/06/19 16:00 40 08/06/19 16:00 99.1 65 17 120/69 (86) 99 08/06/19 15:07 64 19 99 Mechanical Ventilator 40 61 20 40 08/06/19 15:06 62 19 97 Mechanical Ventilator 40 08/06/19 15:00 60 18 120/61 (80) 100 08/06/19 14:00 63 18 120/58 (78) 99 08/06/19 13:40 70 22 40 08/06/19 13:00 65 17 116/57 (76) 99 08/06/19 12:00 59 08/06/19 12:00 Mechanical Ventilator Mechanical Ventilator 08/06/19 12:00 40 08/06/19 12:00 98.6 61 16 126/72 (90) 98 Intake and Output 08/06/19 08/07/19 19:00 07:00 Intake Total 1170 ml 990 ml Output Total 835 ml 1780 ml Balance 335 ml -790 ml Intake Free Water 100 ml IV Total 630 ml 300 ml Tube Feeding 540 ml 540 ml Blood Product 50 ml Output Urine Total 835 ml 1780 ml # Bowel Movements 4 4 Laboratory Tests 08/07/19 04:00: Arterial Blood pH 7.429, Arterial Blood Partial Pressure CO2 42.9, Arterial Blood Partial Pressure O2 115.5H, Arterial Blood HCO3 27.8H, Arterial Blood Oxygen Saturation 97.5, Arterial Blood Base Excess 3.1H, Gerard Test Positive 08/07/19 04:50: White Blood Count 9.7, Red Blood Count 4.09L, Hemoglobin 9.5L, Hematocrit 30.0L , Mean Corpuscular Volume 73L, Mean Corpuscular Hemoglobin 23.2L, Mean Corpuscular Hemoglobin Concent 31.7L, Red Cell Distribution Width 20.3H, Platelet Count 337, Mean Platelet Volume 5.1L, Neutrophils (%) (Auto) 63.5, Lymphocytes (%) (Auto) 21.9, Monocytes (%) (Auto) 7.1, Eosinophils (%) (Auto) 6.8H, Basophils (%) (Auto) 0.7, Sodium Level 139, Potassium Level 3.8, Chloride Level 103, Carbon Dioxide Level 30, Anion Gap 6, Blood Urea Nitrogen 10, Creatinine 0.4L, Estimat Glomerular Filtration Rate > 60, Glucose Level 108H, Calcium Level 8.4L Height (Feet): 4 Height (Inches): 10.00 Weight (Pounds): 148 General Appearance: lethargic EENT: normal ENT inspection Neck: normal alignment Cardiovascular: normal peripheral pulses Respiratory/Chest: decreased breath sounds Abdomen: normal bowel sounds, non tender, soft Extremities: non-tender Tim Davis MD Aug 07, 2019 11:19
--- NOTE | 2019-08-07 12:00 | NUR ---
NURSE NOTES: Patient awake and calm at this time. Patient mentation remains the same. Patient able to follow simple commands. Patient remains orally intubated. Patient on CPAP pressure support 10 with FiO2 35%. Patient tolerating setting with RR 17 and SpO2 97%. Patient showing sinus rhythm on the library monitor. Vital signs stable. NGT of the left nares remain patent, asymptomatic, and running tube feeding of vital AF at 75mL/hr. Suprapubic mena catheter remains patent and asymptomatic at this time. urine output 140mL/hr. Left upper arm PICC line remains patent, asymptomatic with dressing dry and intact. IV remains saline locked at this time. Patient continues to have weeping of her right arm with mild edema and no erythema noted. Will follow up with respiratory therapist. Patient bed in low position with bed alarm on and call light in reach. Oral care and repositioning performed. Will continue to monitor. Addendum: 08/07/19 at 1929 by Vanda Flores RN Dr Sanabria reported that the suprapubic catheter should be changed. Will leave a message for the urologist.
--- NOTE | 2019-08-07 14:00 | NUR ---
NURSE NOTES: Vital signs stable. No sign of acute distress. bed bath performed. Restraints removed as patient not reaching for ET tube and following commands. will continue to monitor. Patient bed in low position with bed alarm on and call light in reach.
--- NOTE | 2019-08-07 14:05 | Infectious Diseases Prog Note ---
Assessment/Plan Problems: (1) Pneumonia of both lower lobes Assessment & Plan: with B/L infiltrates worse on the right with hypoxemia , suspect recurrent aspiration , continue meropenem and zyvox coverage for two weeks , repeated sputum culture on 07/31 and 08/01 are negative for any pathogens. aspiration precaution, monitor CXR , may need tube feeding and tracheostomy . EOT 08/11/19 (2) Sepsis Assessment & Plan: with streptococcus alpha hemolytic , resolved , on zyvox for pneumonia coverage too , repeated blood culture is negative so far on 07/29 which confirm clearance , may need to remove the central line and put a new one if repeated culture in the future turns positive again , will treat with antibiotics for 2 weeks . EOT 08/11/19 (3) Decubitus skin ulcer Assessment & Plan: of the sacrum, continue off loading and local wound care as per hospital protocol (4) Respiratory failure with hypoxia Assessment & Plan: got worse again , with low O2 on ABG, was reintubated again and started on mechanical ventilation , monitor ABG and CXR as per pulmonary , aspiration precaution and keep HOB > 30 DEGREE (5) At risk for aspiration pneumonia Assessment & Plan: aspiration precaution, may benefit from tube feeding , since weak oral phase (6) Diarrhea Assessment & Plan: rule out C diff , will order stool for C diff toxin , keep contact isolation (7) Anemia Assessment & Plan: recurrent , rule out GI source VS alveolar hemorrhage, close monitor of H/H, and transfusion as needed . GI work up (8) Catheter-associated urinary tract infection Assessment & Plan: now with yeast , suspect catheter colonization, recommend to change suprapubic catheter , D/W nurse , will D/W urology Assessment/Plan D/W consultants Subjective Constitutional: Reports: no symptoms HEENT: Reports: no symptoms Respiratory: Reports: no symptoms Breasts: Reports: no symptoms Cardiovascular: Reports: no symptoms Gastrointestinal/Abdominal: Reports: no symptoms Genitourinary: Reports: no symptoms Neurologic: Reports: no symptoms Psychiatric: Reports: no symptoms Skin: Reports: no symptoms Endocrine: Reports: no symptoms Hematologic: Reports: no symptoms Musculoskeletal: Reports: no symptoms Allergies: Coded Allergies: PENICILLIN G (Verified Allergy, Unknown, 12/02/18) Tolerates cabapenem, cephalosporin PENICILLINS (Unverified Allergy, Unknown, 12/02/18) Subjective she was still in ICU intubated , on mechanical ventilation due to respiratory distress , has no secretions from her ET tube as per the nurse , fully awake and responsive , still congested with mild wheezing , no more fever today , no chills , has small bowel movement today with no diarrhea Objective Vital Signs Last 24 Hour Vital Signs Date Time Temp Pulse Resp B/P (MAP) Pulse Ox O2 Delivery O2 Flow Rate FiO2 08/07/19 13:00 80 19 104/55 (71) 99 08/07/19 12:49 72 17 35 08/07/19 12:00 98.6 70 17 123/65 (84) 97 08/07/19 12:00 73 08/07/19 12:00 40 08/07/19 12:00 Mechanical Ventilator Mechanical Ventilator 08/07/19 11:00 69 25 110/52 (71) 100 08/07/19 11:00 63 20 100 Mechanical Ventilator 40 57 16 35 08/07/19 10:00 70 21 102/53 (69) 97 08/07/19 09:10 98 08/07/19 09:10 66 19 35 40 08/07/19 09:00 63 17 119/60 (79) 90 08/07/19 08:00 40 08/07/19 08:00 98.4 54 16 95/46 (62) 99 08/07/19 08:00 Mechanical Ventilator Mechanical Ventilator 08/07/19 08:00 56 08/07/19 07:36 59 19 100 Mechanical Ventilator 40 58 16 40 08/07/19 07:00 63 21 124/52 (76) 97 08/07/19 06:36 68 16 08/07/19 06:00 57 16 104/55 (71) 97 08/07/19 05:01 62 17 40 08/07/19 05:00 63 19 112/60 (77) 98 08/07/19 04:00 98.8 64 19 99/48 (65) 97 08/07/19 04:00 40 08/07/19 04:00 Mechanical Ventilator Mechanical Ventilator 08/07/19 04:00 56 08/07/19 03:17 62 16 100 Mechanical Ventilator 40 62 16 40 08/07/19 03:00 62 16 97/49 (65) 97 08/07/19 02:00 55 16 94/49 (64) 98 08/07/19 01:00 60 18 129/64 (85) 99 08/07/19 00:52 60 18 40 08/07/19 00:00 Mechanical Ventilator Mechanical Ventilator 08/07/19 00:00 60 08/07/19 00:00 40 08/07/19 00:00 98.6 65 13 110/68 (82) 97 08/06/19 23:00 64 16 111/56 (74) 97 08/06/19 22:37 67 18 99 Mechanical Ventilator 40 61 16 40 08/06/19 22:00 67 18 118/70 (86) 99 08/06/19 21:00 63 16 126/59 (81) 98 08/06/19 20:42 63 20 40 08/06/19 20:00 99.1 73 19 131/68 (89) 100 08/06/19 20:00 63 08/06/19 20:00 40 08/06/19 20:00 Mechanical Ventilator Mechanical Ventilator 08/06/19 19:07 55 16 100 Mechanical Ventilator 40 56 16 40 08/06/19 19:00 60 16 121/59 (79) 100 08/06/19 18:00 63 20 108/57 (74) 100 08/06/19 17:24 63 16 40 08/06/19 17:00 71 18 110/53 (72) 99 08/06/19 16:00 Mechanical Ventilator Mechanical Ventilator 08/06/19 16:00 57 08/06/19 16:00 40 08/06/19 16:00 99.1 65 17 120/69 (86) 99 08/06/19 15:07 64 19 99 Mechanical Ventilator 40 61 20 40 08/06/19 15:06 62 19 97 Mechanical Ventilator 40 08/06/19 15:00 60 18 120/61 (80) 100 08/06/19 14:00 63 18 120/58 (78) 99 Height (Feet): 4 Height (Inches): 10.00 Weight (Pounds): 148 General Appearance: WD/WN, no acute distress HEENT: normocephalic, atraumatic, anicteric, mucous membranes moist, PERRL Respiratory/Chest: chest wall non-tender, lungs clear, normal breath sounds, no respiratory distress, no accessory muscle use, decreased breath sounds, crackles/rales Cardiovascular: normal peripheral pulses, normal rate, regular rhythm, no gallop/murmur, no JVD Abdomen: normal bowel sounds, soft, non tender, no organomegaly, non distended , no mass, no scars Extremities: no cyanosis, no clubbing Skin: no rash, no lesions, no ulcers Neurologic/Psychiatric: alert, oriented x 3, responsive Lymphatic: no neck adenopathy, no groin adenopathy Musculoskeletal: normal muscle bulk, no effusion Laboratory Tests Test 08/07/19 04:00 08/07/19 04:50 Arterial Blood pH 7.429 (7.350-7.450) Arterial Blood Partial Pressure CO2 42.9 mmHg (35.0-45.0) Arterial Blood Partial Pressure O2 115.5 mmHg (75.0-100.0) H Arterial Blood HCO3 27.8 mmol/L (22.0-26.0) H Arterial Blood Oxygen Saturation 97.5 % (95-100) Arterial Blood Base Excess 3.1 (-2-2) H Gerard Test Positive White Blood Count 9.7 K/UL (4.8-10.8) Red Blood Count 4.09 M/UL (4.20-5.40) L Hemoglobin 9.5 G/DL (12.0-16.0) L Hematocrit 30.0 % (37.0-47.0) L Mean Corpuscular Volume 73 FL (80-99) L Mean Corpuscular Hemoglobin 23.2 PG (27.0-31.0) L Mean Corpuscular Hemoglobin Concent 31.7 G/DL (32.0-36.0) L Red Cell Distribution Width 20.3 % (11.6-14.8) H Platelet Count 337 K/UL (150-450) Mean Platelet Volume 5.1 FL (6.5-10.1) L Neutrophils (%) (Auto) 63.5 % (45.0-75.0) Lymphocytes (%) (Auto) 21.9 % (20.0-45.0) Monocytes (%) (Auto) 7.1 % (1.0-10.0) Eosinophils (%) (Auto) 6.8 % (0.0-3.0) H Basophils (%) (Auto) 0.7 % (0.0-2.0) Sodium Level 139 MMOL/L (136-145) Potassium Level 3.8 MMOL/L (3.5-5.1) Chloride Level 103 MMOL/L (98-107) Carbon Dioxide Level 30 MMOL/L (21-32) Anion Gap 6 mmol/L (5-15) Blood Urea Nitrogen 10 mg/dL (7-18) Creatinine 0.4 MG/DL (0.55-1.30) L Estimat Glomerular Filtration Rate > 60 mL/min (>60) Glucose Level 108 MG/DL (74-106) H Calcium Level 8.4 MG/DL (8.5-10.1) L Current Medications Medications (Trade) Dose Ordered Sig/Sandeep Route PRN Reason Start Time Stop Time Status Last Admin Dose Admin Acetaminophen (Tylenol) 650 mg Q6H PRN GT Mild Pain/Temp > 100.5 07/31/19 12:45 08/11/19 12:43 08/03/19 09:32 Acetylcysteine (Mucomyst) 400 mg Q4HRT N 08/01/19 11:00 08/16/19 18:59 08/07/19 11:00 Albuterol/ Ipratropium (Albuterol/ Ipratropium) 3 ml Q4HRT N 08/07/19 07:00 08/12/19 06:59 08/07/19 10:59 Chlorhexidine Gluconate (Debora-Hex 2%) 1 applic DAILY@2000 TOPIC 07/31/19 20:00 08/13/19 19:59 08/06/19 20:19 Heparin Sodium (Porcine) (Heparin 5000 units/ml) 5,000 units EVERY 12 HOURS SUBQ 08/04/19 21:00 09/03/19 20:59 08/07/19 09:37 Linezolid 300 ml @ 300 mls/hr Q12HR@0500,1700 IVPB 07/31/19 17:00 08/11/19 23:59 08/07/19 04:51 Lorazepam (Ativan 2mg/ml 1ml) 2 mg Q4H PRN IV For Anxiety 07/31/19 14:00 08/07/19 13:59 Meropenem 1 gm/ Sodium Chloride 55 ml @ 110 mls/hr Q8H IVPB 07/31/19 18:00 08/11/19 23:59 08/07/19 09:35 Metoclopramide HCl (Reglan) 5 mg Q6H PRN IVP Nausea & Vomiting 08/04/19 10:00 09/03/19 09:59 Morphine Sulfate (Morphine Sulfate) 4 mg Q4H PRN IVP Severe Pain (Pain Scale 7-10) 07/31/19 14:00 08/07/19 13:59 Pantoprazole (Protonix) 40 mg DAILY IV 08/01/19 09:00 08/31/19 08:59 08/07/19 09:36 Gigi Sanabria M.D. Aug 07, 2019 14:05
--- NOTE | 2019-08-07 15:59 | NUR ---
NURSE NOTES: Notified Dr Bonilla at 1505 that patient has been on weaning trial since this morning. Patient now on CPAP with pressure support 10 with RR 17 and SpO2 97% and no sign of acute distress. Notified him that the Nif is 10 and RSBI 41. Received order for ABG. Reported ABG lab results at [address] Bonilla. Placed patient back on AC 16, tidal volume 400, FiO2 40% and PEEP 5 in response to ABG. No new orders received.
--- NOTE | 2019-08-07 16:00 | NUR ---
NURSE NOTES: Patient awake and calm at this time. Patient mentation remains the same. Patient able to follow simple commands. Patient remains orally intubated. Patient on CPAP pressure support 10 with FiO2 35%. Patient tolerating setting with RR 17 and SpO2 97%. 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 Vital signs stable. NGT of the left nares remain patent, asymptomatic, and running tube feeding of vital AF at 75mL/hr. Suprapubic mena catheter remains patent and asymptomatic at this time. urine output 140mL/hr. Left upper arm PICC line remains patent, asymptomatic with dressing dry and intact. IV remains saline locked at this time. Patient continues to have weeping of her right arm with mild edema and no erythema noted. Patient bed in low position with bed alarm on and call light in reach. Oral care and repositioning performed. Will continue to monitor. Addendum: 08/07/19 at 1846 by Vanda Flores RN Patient on ventilator with setting of AC 16, TV 500, FiO2 40%, and PEEP 5. Weaning trial complete at this time. Dr Bonilla aware of ABG result post weaning trial.
--- NOTE | 2019-08-07 18:00 | NUR ---
NURSE NOTES: Vital signs stable. Will continue to monitor. No sign of acute distress.
--- NOTE | 2019-08-07 19:26 | Internal Med Progress Note ---
Subjective Date of Service: Aug 07, 2019 Physician Name Nirja Teixeira Attending Physician Wil Masters MD Current Medications Medications (Trade) Dose Ordered Sig/Sandeep Route PRN Reason Start Time Stop Time Status Last Admin Dose Admin Acetaminophen (Tylenol) 650 mg Q6H PRN GT Mild Pain/Temp > 100.5 07/31/19 12:45 08/11/19 12:43 08/03/19 09:32 Acetylcysteine (Mucomyst) 400 mg Q4HRT HHN 08/01/19 11:00 08/16/19 18:59 08/07/19 11:00 Albuterol/ Ipratropium (Albuterol/ Ipratropium) 3 ml Q4HRT HHN 08/07/19 07:00 08/12/19 06:59 08/07/19 10:59 Chlorhexidine Gluconate (Debora-Hex 2%) 1 applic DAILY@2000 TOPIC 07/31/19 20:00 08/13/19 19:59 08/06/19 20:19 Heparin Sodium (Porcine) (Heparin 5000 units/ml) 5,000 units EVERY 12 HOURS SUBQ 08/04/19 21:00 09/03/19 20:59 08/07/19 09:37 Linezolid 300 ml @ 300 mls/hr Q12HR@0500,1700 IVPB 07/31/19 17:00 08/11/19 23:59 08/07/19 16:44 Meropenem 1 gm/ Sodium Chloride 55 ml @ 110 mls/hr Q8H IVPB 07/31/19 18:00 08/11/19 23:59 08/07/19 17:48 Metoclopramide HCl (Reglan) 5 mg Q6H PRN IVP Nausea & Vomiting 08/04/19 10:00 09/03/19 09:59 Pantoprazole (Protonix) 40 mg DAILY IV 08/01/19 09:00 08/31/19 08:59 08/07/19 09:36 Allergies: Coded Allergies: PENICILLIN G (Verified Allergy, Unknown, 12/02/18) Tolerates cabapenem, cephalosporin PENICILLINS (Unverified Allergy, Unknown, 12/02/18) ROS Limited/Unobtainable: Yes Subjective 49 YO F with pneumonia and respiratory failure. Intubated and sedated. Cover for Int Med-DR Guerrero. ICU Objective Last Vital Signs Date Time Temp Pulse Resp B/P (MAP) Pulse Ox O2 Delivery O2 Flow Rate FiO2 08/07/19 18:00 69 20 110/64 (79) 100 08/07/19 17:35 40 08/07/19 16:00 Mechanical Ventilator Mechanical Ventilator 08/07/19 16:00 98.4 Laboratory Tests Test 08/07/19 04:00 08/07/19 04:50 Arterial Blood pH 7.429 (7.350-7.450) Arterial Blood Partial Pressure CO2 42.9 mmHg (35.0-45.0) Arterial Blood Partial Pressure O2 115.5 mmHg (75.0-100.0) H Arterial Blood HCO3 27.8 mmol/L (22.0-26.0) H Arterial Blood Oxygen Saturation 97.5 % (95-100) Arterial Blood Base Excess 3.1 (-2-2) H Gerard Test Positive White Blood Count 9.7 K/UL (4.8-10.8) Red Blood Count 4.09 M/UL (4.20-5.40) L Hemoglobin 9.5 G/DL (12.0-16.0) L Hematocrit 30.0 % (37.0-47.0) L Mean Corpuscular Volume 73 FL (80-99) L Mean Corpuscular Hemoglobin 23.2 PG (27.0-31.0) L Mean Corpuscular Hemoglobin Concent 31.7 G/DL (32.0-36.0) L Red Cell Distribution Width 20.3 % (11.6-14.8) H Platelet Count 337 K/UL (150-450) Mean Platelet Volume 5.1 FL (6.5-10.1) L Neutrophils (%) (Auto) 63.5 % (45.0-75.0) Lymphocytes (%) (Auto) 21.9 % (20.0-45.0) Monocytes (%) (Auto) 7.1 % (1.0-10.0) Eosinophils (%) (Auto) 6.8 % (0.0-3.0) H Basophils (%) (Auto) 0.7 % (0.0-2.0) Sodium Level 139 MMOL/L (136-145) Potassium Level 3.8 MMOL/L (3.5-5.1) Chloride Level 103 MMOL/L (98-107) Carbon Dioxide Level 30 MMOL/L (21-32) Anion Gap 6 mmol/L (5-15) Blood Urea Nitrogen 10 mg/dL (7-18) Creatinine 0.4 MG/DL (0.55-1.30) L Estimat Glomerular Filtration Rate > 60 mL/min (>60) Glucose Level 108 MG/DL (74-106) H Calcium Level 8.4 MG/DL (8.5-10.1) L Intake and Output 08/06/19 08/07/19 19:00 07:00 Intake Total 1170 ml 990 ml Output Total 835 ml 1780 ml Balance 335 ml -790 ml Intake Free Water 100 ml IV Total 630 ml 300 ml Tube Feeding 540 ml 540 ml Blood Product 50 ml Output Urine Total 835 ml 1780 ml # Bowel Movements 4 4 Objective General Appearance: WD/WN, moderate distress EENT: PERRL/EOMI, normal ENT inspection Neck: non-tender, normal alignment, supple Cardiovascular: normal peripheral pulses, normal rate, regular rhythm, no gallop/murmur, no JVD Respiratory/Chest: Mech Vent; crackles/rales, rhonchi - bilaterally, expiratory wheezing Abdomen: normal bowel sounds, non tender, soft, no organomegaly, no mass Skin: normal pigmentation, warm/dry Assessment/Plan Problem List: (1) Respiratory failure with hypoxia Assessment & Plan: Mechanical vent per pulmonary=Dr Bonilla (2) Pneumonia of both lower lobes Assessment & Plan: See ID note. Continue meropenem and zyvox (3) UTI (urinary tract infection) Assessment & Plan: Pseudamonas, ESBL E. Coli, and vanco resistant enterococcus. See ID=Dr Sanabria. Continue meropenem, linezolid and micafugin (4) Sepsis (5) Paraplegia (6) Spina bifida Niraj Teixeira MD Aug 07, 2019 19:26
--- NOTE | 2019-08-07 19:28 | NUR ---
HAND-OFF: Report given to EMMA Walsh. Patient vital signs stable. Endorsed to follow up and monitor. Addendum: 08/07/19 at 1932 by Vanda Flores RN Was not able to leave a message for urologist. Endorsed to follow up.
--- NOTE | 2019-08-07 19:29 | NUR ---
NURSE NOTES: Received patient from Vanda Flores RN. Will continue plan of care.
--- NOTE | 2019-08-07 20:00 | NUR ---
NURSE NOTES: Patient is awake and alert, eyes tracking. Intubated ETT 7.5 @ 23cm at the left side lip. Vent settings: AC:16, TV:400, FiO2:40%, PEEP:5. Vital signs are stable at the moment. Suprapubic catheter intact, patent and draining. On left nares NGT running Vital AF @ 75ml/hr. Left upper arm PICC TKO. Bed low, locked and alarm is on. Family members at bedside. Will continue to monitor.
[2019-08-07] MEDS: Dyna-Hex 2% Top Sol 2oz TOPIC SCH (20:48)
--- NOTE | 2019-08-07 22:00 | NUR ---
NURSE NOTES: Patient is awake and alert. Vital signs are stable. BP:112/58, HR:70, O2:100%, Resp:20. All needs are met. Safety measures in place.
[2019-08-08] VITALS (24 sets, daily range): BP systolic 88–159; BP diastolic 45–76
--- NOTE | 2019-08-08 | NUR ---
NURSE NOTES: Patient is sleeping comfortably. Turned and repositioned. Vital signs are stable. Bed low, locked and alarm is on. Will continue to monitor.
[2019-08-08] MEDS: Meropenem 1 GM in NS 55 ML IVPB SCH ×3 (01:30→17:02)
--- NOTE | 2019-08-08 02:00 | NUR ---
NURSE NOTES: Patient is sleeping comfortably. Vital signs are stable. Safety measures in place. Will continue to monitor.
[2019-08-08] MEDS: Acetylcysteine 20% Soln 4ml HHN SCH ×6 (03:46→23:09)
[2019-08-08] MEDS: Albuterol/Ipratropium 3ml neb HHN SCH ×6 (03:46→23:09)
--- NOTE | 2019-08-08 04:00 | NUR ---
NURSE NOTES: Patient is awake and alert. Bed bath provided with deangelo-hex. Linens changed, optifoam and calazime cream provided to back for protection. Suctioning and oral care done. Turned and repositioned. Patient is comfortable. Bed low, locked and alarm is on.
--- NOTE | 2019-08-08 06:00 | NUR ---
NURSE NOTES: Patient is sleeping comfortably. Vital signs are stable. Turned and repositioned. Will continue to monitor.
--- NOTE | 2019-08-08 07:20 | NUR ---
HAND-OFF: Report given to EMMA Romo.
--- NOTE | 2019-08-08 07:21 | NUR ---
NURSE NOTES: Received report from EMMA Walsh. Patient awake and responsive to verbal and able to answer simple closed questions. ETT 7.5/23cm at lip line with vent setting AC 16, VT 400, Peep 5 and FiO2 40%. NGT intact and running with Vital AF 1.2 @ 45ml/hr. Suprapubic cath intact and draining with yellow color urine. Left upper arm PICC intact and clean with TKO. Kept dry, clean, comfortable and HOB>30. Will continue plan of care.
[2019-08-08] MEDS: Pantoprazole Inj IV SCH (08:26)
[2019-08-08] MEDS: Heparin 5000 units/ml inj SUBQ SCH ×2 (08:27→21:16)
--- NOTE | 2019-08-08 09:06 | NUR ---
RD ASSESSMENT & RECOMMENDATIONS SEE CARE ACTIVITY FOR COMPLETE ASSESSMENT DAILY ESTIMATED NEEDS: Needs based on wound, critical care/ 47.6kg abw 25-30 kcals/kg 8405-8490 total kcals 1.25-2 g protein/kg 60-95 g total protein 25-30 mL/kg 5723-2915 total fluid mLs NUTRITION DIAGNOSIS: * Increased kcal/pro needs r/t wound healing as evidenced by h/o spina bifida, adm w/ full thickness wound @ sacrum and resolving pressure injurty @ R-ischium. * Swallowing difficulty R/T respiratory status as evidenced by re-intubated, on NGT feeding. CURRENT TF:Vital 1.2 @ 45ml/hr x 24 hrs ENTERAL NUTRITION RECOMMENDATIONS: Vital AF 1.2 @ 45ml/hr x 24 hrs to provide 1080ml, 1296kcal, 81g prot, 875ml free water - Maintain current TF: meets 100% est kcal/prot needs - Without IVF: water flush of 140ml q 6hrs - HOB over 30 degrees. ADDITIONAL RECOMMENDATIONS: 1) Wound care: add GREGG in 4oz H2O BID via NGT Add VIT C 500mg daily 2) Maintain calibrated bed scale wts 3) NISS for BG control on TF 4) Monitor lytes daily, replete as needed (low K, phos, mag) 5) Add Probiotics w/ continued diarrhea. .
--- NOTE | 2019-08-08 09:07 | NUR ---
NURSE NOTES: Called Dr. Masters since no labs for today. New orders carried out.
--- NOTE | 2019-08-08 09:40 | NUR ---
NURSE NOTES: Called lab if someone can come for blood draw. Annamaria said she will send someone.
--- NOTE | 2019-08-08 10:30 | NUR ---
NURSE NOTES: Seen by Wound Care Nurse and Tx given. Bed bath given and brown soft moderate BM noted. Will continue plan of care.
--- NOTE | 2019-08-08 10:42 | NUR ---
NURSE NOTES: Called lab if blood was collected. Charlene said someone will come.
--- NOTE | 2019-08-08 11:20 | NUR ---
NURSE NOTES: Seen by Dr. Bonilla and assessed patient. Trach suction given. Will try weaning him afternoon again.
[2019-08-08 11:54] LABS: BASOPHILS % (AUTO) 0.7 % (0.0-2.0); EOSINOPHILS % (AUTO) 5.3 % (0.0-3.0); HEMATOCRIT 31.7 % (37.0-47.0); HEMOGLOBIN 9.9 G/DL (12.0-16.0); MEAN CORPUSCULAR VOLUME 74 FL (80-99); MONOCYTES % (AUTO) 5.1 % (1.0-10.0); NEUTROPHILS % (AUTO) 68.9 % (45.0-75.0); PLATELET COUNT 361 K/UL (150-450); RED CELL DISTRIBUTION WIDTH 21.1 % (11.6-14.8); WHITE BLOOD COUNT 10.8 K/UL (4.8-10.8)
[2019-08-08 12:11] LABS: ALANINE AMINOTRANSFERASE 16 U/L (12-78); ALBUMIN 2.6 G/DL (3.4-5.0); ALBUMIN/GLOBULIN RATIO 0.5 (1.0-2.7); ALKALINE PHOSPHATASE 61 U/L (46-116); ANION GAP 5 mmol/L (5-15); ASPARTATE AMINO TRANSFERASE 15 U/L (15-37); BILIRUBIN,TOTAL 0.2 MG/DL (0.2-1.0); BLOOD UREA NITROGEN 16 mg/dL (7-18); CALCIUM 8.5 MG/DL (8.5-10.1); CARBON DIOXIDE 30 MMOL/L (21-32); CHLORIDE 103 MMOL/L (98-107); CREATININE 0.3 MG/DL (0.55-1.30); PHOSPHORUS 3.5 MG/DL (2.5-4.9); POTASSIUM 3.8 MMOL/L (3.5-5.1); SODIUM 138 MMOL/L (136-145)
--- NOTE | 2019-08-08 12:14 | GI Progress Note ---
Assessment/Plan Problems: (1) Paraplegia ICD Codes: G82.20 - Paraplegia, unspecified SNOMED: 46417358 (2) At risk for aspiration pneumonia ICD Codes: Z91.89 - Other specified personal risk factors, not elsewhere classified SNOMED: 888967585 Status: unchanged Status Narrative Discussed with Dr. Davis. Assessment/Plan NOW INTUBATED IN THE ICU needs PEG family wants to transfer the patient [facility] and refusing PEG here at [facility] repeat labs fu H&H NGTF for now s/p unit PRBC this week stool ob neg x1 reglan The patient was seen and examined at bedside and all new and available data was reviewed in the patients chart. I agree with the above findings, impression and plan. (Patient seen earlier today. Signature stamp does not reflect patient encounter time.). - Tim Davis MD Subjective Subjective SOB Objective Last 24 Hour Vital Signs Date Time Temp Pulse Resp B/P (MAP) Pulse Ox O2 Delivery O2 Flow Rate FiO2 08/08/19 12:00 40 08/08/19 11:15 65 18 40 08/08/19 11:00 69 18 114/58 (76) 99 08/08/19 10:00 63 17 102/58 (73) 97 08/08/19 09:07 68 19 40 08/08/19 09:00 67 20 118/67 (84) 100 08/08/19 08:00 98.7 62 16 95/56 (69) 97 08/08/19 08:00 40 08/08/19 08:00 Mechanical Ventilator Mechanical Ventilator 08/08/19 07:09 66 22 Mechanical Ventilator 40 08/08/19 07:00 67 18 88/55 (66) 98 08/08/19 06:30 61 17 08/08/19 06:00 64 17 110/55 (73) 99 08/08/19 05:00 67 17 101/57 (72) 100 08/08/19 04:51 67 16 40 08/08/19 04:00 Mechanical Ventilator Mechanical Ventilator 08/08/19 04:00 35 08/08/19 04:00 99.0 71 19 109/62 (78) 100 08/08/19 03:47 72 18 100 Mechanical Ventilator 40 75 18 40 08/08/19 03:11 65 08/08/19 03:00 71 21 109/67 (81) 100 08/08/19 02:00 64 17 93/55 (68) 100 08/08/19 01:24 65 16 40 08/08/19 01:00 69 17 100/58 (72) 95 08/08/19 00:19 64 08/08/19 00:00 Mechanical Ventilator Mechanical Ventilator 08/08/19 00:00 99.1 73 16 90/55 (67) 92 08/07/19 23:00 75 19 95/54 (68) 96 08/07/19 22:58 75 22 100 Mechanical Ventilator 40 77 22 40 08/07/19 22:00 73 18 112/58 (76) 100 08/07/19 21:00 76 20 108/64 (79) 100 08/07/19 20:35 70 19 40 08/07/19 20:00 98.4 68 17 110/62 (78) 100 08/07/19 20:00 Mechanical Ventilator Mechanical Ventilator 08/07/19 20:00 35 08/07/19 19:54 68 08/07/19 19:29 65 18 100 Mechanical Ventilator 40 68 18 40 08/07/19 19:00 67 18 104/60 (75) 100 08/07/19 18:00 69 20 110/64 (79) 100 08/07/19 17:35 68 20 40 08/07/19 17:00 74 21 107/64 (78) 100 08/07/19 16:00 Mechanical Ventilator Mechanical Ventilator 08/07/19 16:00 35 08/07/19 16:00 75 08/07/19 16:00 98.4 85 23 114/68 (83) 98 08/07/19 15:10 79 22 40 08/07/19 15:00 82 21 103/71 (82) 95 08/07/19 14:00 76 20 118/64 (82) 100 08/07/19 13:00 80 19 104/55 (71) 99 08/07/19 12:49 72 17 35 Intake and Output 08/07/19 08/08/19 19:00 07:00 Intake Total 1000 ml 955 ml Output Total 1890 ml 970 ml Balance -890 ml -15 ml Intake Free Water 0 ml 60 ml IV Total 410 ml 355 ml Tube Feeding 540 ml 540 ml Blood Product 50 ml Output Urine Total 1890 ml 970 ml # Bowel Movements 2 1 Laboratory Tests Test 08/08/19 11:30 White Blood Count 10.8 K/UL (4.8-10.8) Red Blood Count 4.30 M/UL (4.20-5.40) Hemoglobin 9.9 G/DL (12.0-16.0) L Hematocrit 31.7 % (37.0-47.0) L Mean Corpuscular Volume 74 FL (80-99) L Mean Corpuscular Hemoglobin 23.1 PG (27.0-31.0) L Mean Corpuscular Hemoglobin Concent 31.2 G/DL (32.0-36.0) L Red Cell Distribution Width 21.1 % (11.6-14.8) H Platelet Count 361 K/UL (150-450) Mean Platelet Volume 4.8 FL (6.5-10.1) L Neutrophils (%) (Auto) 68.9 % (45.0-75.0) Lymphocytes (%) (Auto) 20.0 % (20.0-45.0) Monocytes (%) (Auto) 5.1 % (1.0-10.0) Eosinophils (%) (Auto) 5.3 % (0.0-3.0) H Basophils (%) (Auto) 0.7 % (0.0-2.0) Sodium Level 138 MMOL/L (136-145) Potassium Level 3.8 MMOL/L (3.5-5.1) Chloride Level 103 MMOL/L (98-107) Carbon Dioxide Level 30 MMOL/L (21-32) Anion Gap 5 mmol/L (5-15) Blood Urea Nitrogen 16 mg/dL (7-18) Creatinine 0.3 MG/DL (0.55-1.30) L Estimat Glomerular Filtration Rate > 60 mL/min (>60) Glucose Level 116 MG/DL (74-106) H Calcium Level 8.5 MG/DL (8.5-10.1) Phosphorus Level 3.5 MG/DL (2.5-4.9) Magnesium Level 1.9 MG/DL (1.8-2.4) Total Bilirubin 0.2 MG/DL (0.2-1.0) Aspartate Amino Transf (AST/SGOT) 15 U/L (15-37) Alanine Aminotransferase (ALT/SGPT) 16 U/L (12-78) Alkaline Phosphatase 61 U/L (46-116) Total Protein 7.5 G/DL (6.4-8.2) Albumin 2.6 G/DL (3.4-5.0) L Globulin 4.9 g/dL Albumin/Globulin Ratio 0.5 (1.0-2.7) L HIV (1&2) Antibody Rapid Pending Height (Feet): 4 Height (Inches): 10.00 Weight (Pounds): 151 General Appearance: no apparent distress, alert Cardiovascular: normal rate Respiratory/Chest: normal breath sounds, no respiratory distress, other - intubated Abdominal Exam: normal bowel sounds, non tender, soft Extremities: non-tender Edu Coates NP Aug 08, 2019 12:14
--- NOTE | 2019-08-08 13:19 | NUR ---
NURSE NOTES: Seen by Dr. Sanabria and assessed patient. No new order at this time. Will continue plan of care.
--- NOTE | 2019-08-08 13:34 | NUR ---
JEWEL BEARING MAKERSHIFT COORDINATOR SI: RESP FAILURE ETT/VENT SUPPORT T. 98.3 HR 65 RR 17 B/P 114/45 AC 16 TV 400 FIO2 40% PEEP 5 IS: MEROPENEM IV PROTONIX IV MUCOMYST INLINE TX HEPARIN SUBC ALB HHN ICU STATUS
--- NOTE | 2019-08-08 14:08 | NUR ---
NURSE NOTES: Repositioned patient.
--- NOTE | 2019-08-08 14:15 | Infectious Diseases Prog Note ---
Assessment/Plan Problems: (1) Pneumonia of both lower lobes Assessment & Plan: with B/L infiltrates worse on the right with hypoxemia , suspect recurrent aspiration , continue meropenem and zyvox coverage for two weeks , repeated sputum culture on 07/31 and 08/01 are negative for any pathogens. aspiration precaution, monitor CXR , may need tube feeding and tracheostomy in the future if continue to fail weaning trials and unable to protect her airway , D/W family . EOT 08/11/19 (2) Sepsis Assessment & Plan: with streptococcus alpha hemolytic , resolved , on zyvox for pneumonia coverage too , repeated blood culture is negative so far on 07/29 which confirm clearance , may need to remove the central line and put a new one if repeated culture in the future turns positive again , will treat with antibiotics for 2 weeks . EOT 08/11/19 (3) Decubitus skin ulcer Assessment & Plan: of the sacrum, continue off loading and local wound care as per hospital protocol (4) Respiratory failure with hypoxia Assessment & Plan: got worse again , now reintubated again and on mechanical ventilation , monitor ABG and CXR as per pulmonary , aspiration precaution and keep HOB > 30 DEGREE (5) At risk for aspiration pneumonia Assessment & Plan: aspiration precaution, may benefit from tube feeding , since weak oral phase (6) Anemia Assessment & Plan: recurrent , rule out GI source VS alveolar hemorrhage, close monitor of H/H, and transfusion as needed . GI work up (7) Catheter-associated urinary tract infection Assessment & Plan: now with yeast , suspect catheter colonization, recommend to change suprapubic catheter , D/W nurse and with urology, no need for antifungal treatment at this point Assessment/Plan D/W consultants Subjective Constitutional: Reports: no symptoms HEENT: Reports: no symptoms Respiratory: Reports: no symptoms Breasts: Reports: no symptoms Cardiovascular: Reports: no symptoms Gastrointestinal/Abdominal: Reports: no symptoms Genitourinary: Reports: no symptoms Neurologic: Reports: no symptoms Psychiatric: Reports: no symptoms Skin: Reports: no symptoms Endocrine: Reports: no symptoms Hematologic: Reports: no symptoms Musculoskeletal: Reports: no symptoms Allergies: Coded Allergies: PENICILLIN G (Verified Allergy, Unknown, 12/02/18) Tolerates cabapenem, cephalosporin PENICILLINS (Unverified Allergy, Unknown, 12/02/18) Subjective she was still intubated , on mechanical ventilation due to respiratory distress in ICU , has no significant secretions from her ET tube as per the nurse , fully awake and responsive , still congested with mild wheezing , no more fever today , no chills , has small bowel movement today with no diarrhea Objective Vital Signs Last 24 Hour Vital Signs Date Time Temp Pulse Resp B/P (MAP) Pulse Ox O2 Delivery O2 Flow Rate FiO2 08/08/19 12:00 Mechanical Ventilator Mechanical Ventilator 08/08/19 12:00 40 08/08/19 12:00 98.3 65 17 114/45 (68) 99 08/08/19 12:00 61 08/08/19 11:15 65 18 40 08/08/19 11:00 69 18 114/58 (76) 99 08/08/19 10:00 63 17 102/58 (73) 97 08/08/19 09:07 68 19 40 08/08/19 09:00 67 20 118/67 (84) 100 08/08/19 08:00 98.7 62 16 95/56 (69) 97 08/08/19 08:00 66 08/08/19 08:00 40 08/08/19 08:00 Mechanical Ventilator Mechanical Ventilator 08/08/19 07:09 66 22 Mechanical Ventilator 40 08/08/19 07:00 67 18 88/55 (66) 98 08/08/19 06:30 61 17 08/08/19 06:00 64 17 110/55 (73) 99 08/08/19 05:00 67 17 101/57 (72) 100 08/08/19 04:51 67 16 40 08/08/19 04:00 Mechanical Ventilator Mechanical Ventilator 08/08/19 04:00 35 08/08/19 04:00 99.0 71 19 109/62 (78) 100 08/08/19 03:47 72 18 100 Mechanical Ventilator 40 75 18 40 08/08/19 03:11 65 08/08/19 03:00 71 21 109/67 (81) 100 08/08/19 02:00 64 17 93/55 (68) 100 08/08/19 01:24 65 16 40 08/08/19 01:00 69 17 100/58 (72) 95 08/08/19 00:19 64 08/08/19 00:00 Mechanical Ventilator Mechanical Ventilator 08/08/19 00:00 99.1 73 16 90/55 (67) 92 1/16/20 23:00 75 19 95/54 (68) 96 08/07/19 22:58 75 22 100 Mechanical Ventilator 40 77 22 40 08/07/19 22:00 73 18 112/58 (76) 100 08/07/19 21:00 76 20 108/64 (79) 100 08/07/19 20:35 70 19 40 08/07/19 20:00 98.4 68 17 110/62 (78) 100 08/07/19 20:00 Mechanical Ventilator Mechanical Ventilator 08/07/19 20:00 35 08/07/19 19:54 68 08/07/19 19:29 65 18 100 Mechanical Ventilator 40 68 18 40 08/07/19 19:00 67 18 104/60 (75) 100 08/07/19 18:00 69 20 110/64 (79) 100 08/07/19 17:35 68 20 40 08/07/19 17:00 74 21 107/64 (78) 100 08/07/19 16:00 Mechanical Ventilator Mechanical Ventilator 08/07/19 16:00 35 08/07/19 16:00 75 08/07/19 16:00 98.4 85 23 114/68 (83) 98 08/07/19 15:10 79 22 40 08/07/19 15:00 82 21 103/71 (82) 95 Height (Feet): 4 Height (Inches): 10.00 Weight (Pounds): 151 General Appearance: WD/WN, no acute distress HEENT: normocephalic, atraumatic, anicteric, mucous membranes moist, PERRL, EOMI, supple, no JVD Respiratory/Chest: chest wall non-tender, no respiratory distress, no accessory muscle use, decreased breath sounds, crackles/rales Cardiovascular: normal peripheral pulses, normal rate, regular rhythm, no gallop/murmur, no JVD Abdomen: normal bowel sounds, soft, non tender, no organomegaly, non distended , no mass, no scars Extremities: no cyanosis, no clubbing Skin: no rash, no lesions, no ulcers Neurologic/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: 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 grossly normal, alert, responsive Lymphatic: no neck adenopathy, no groin adenopathy Musculoskeletal: normal muscle bulk, no effusion Laboratory Tests Test 08/08/19 11:30 White Blood Count 10.8 K/UL (4.8-10.8) Red Blood Count 4.30 M/UL (4.20-5.40) Hemoglobin 9.9 G/DL (12.0-16.0) L Hematocrit 31.7 % (37.0-47.0) L Mean Corpuscular Volume 74 FL (80-99) L Mean Corpuscular Hemoglobin 23.1 PG (27.0-31.0) L Mean Corpuscular Hemoglobin Concent 31.2 G/DL (32.0-36.0) L Red Cell Distribution Width 21.1 % (11.6-14.8) H Platelet Count 361 K/UL (150-450) Mean Platelet Volume 4.8 FL (6.5-10.1) L Neutrophils (%) (Auto) 68.9 % (45.0-75.0) Lymphocytes (%) (Auto) 20.0 % (20.0-45.0) Monocytes (%) (Auto) 5.1 % (1.0-10.0) Eosinophils (%) (Auto) 5.3 % (0.0-3.0) H Basophils (%) (Auto) 0.7 % (0.0-2.0) Sodium Level 138 MMOL/L (136-145) Potassium Level 3.8 MMOL/L (3.5-5.1) Chloride Level 103 MMOL/L (98-107) Carbon Dioxide Level 30 MMOL/L (21-32) Anion Gap 5 mmol/L (5-15) Blood Urea Nitrogen 16 mg/dL (7-18) Creatinine 0.3 MG/DL (0.55-1.30) L Estimat Glomerular Filtration Rate > 60 mL/min (>60) Glucose Level 116 MG/DL (74-106) H Calcium Level 8.5 MG/DL (8.5-10.1) Phosphorus Level 3.5 MG/DL (2.5-4.9) Magnesium Level 1.9 MG/DL (1.8-2.4) Total Bilirubin 0.2 MG/DL (0.2-1.0) Aspartate Amino Transf (AST/SGOT) 15 U/L (15-37) Alanine Aminotransferase (ALT/SGPT) 16 U/L (12-78) Alkaline Phosphatase 61 U/L (46-116) Total Protein 7.5 G/DL (6.4-8.2) Albumin 2.6 G/DL (3.4-5.0) L Globulin 4.9 g/dL Albumin/Globulin Ratio 0.5 (1.0-2.7) L HIV (1&2) Antibody Rapid Negative (NEGATIVE) Current Medications Medications (Trade) Dose Ordered Sig/Sandeep Route PRN Reason Start Time Stop Time Status Last Admin Dose Admin Acetaminophen (Tylenol) 650 mg Q6H PRN GT Mild Pain/Temp > 100.5 07/31/19 12:45 08/11/19 12:43 08/03/19 09:32 Acetylcysteine (Mucomyst) 400 mg Q4HRT N 08/01/19 11:00 08/16/19 18:59 08/08/19 11:37 Albuterol/ Ipratropium (Albuterol/ Ipratropium) 3 ml Q4HRT HHN 08/07/19 07:00 08/12/19 06:59 08/08/19 11:37 Chlorhexidine Gluconate (Debora-Hex 2%) 1 applic DAILY@2000 TOPIC 07/31/19 20:00 08/13/19 19:59 08/07/19 20:48 Heparin Sodium (Porcine) (Heparin 5000 units/ml) 5,000 units EVERY 12 HOURS SUBQ 08/04/19 21:00 09/03/19 20:59 08/08/19 08:27 Linezolid 300 ml @ 300 mls/hr Q12HR@0500,1700 IVPB 07/31/19 17:00 08/11/19 23:59 08/08/19 04:22 Meropenem 1 gm/ Sodium Chloride 55 ml @ 110 mls/hr Q8H IVPB 07/31/19 18:00 08/11/19 23:59 08/08/19 10:06 Metoclopramide HCl (Reglan) 5 mg Q6H PRN IVP Nausea & Vomiting 08/04/19 10:00 09/03/19 09:59 Pantoprazole (Protonix) 40 mg DAILY IV 08/01/19 09:00 08/31/19 08:59 08/08/19 08:26 Gigi Sanabria M.D. Aug 08, 2019 14:15
--- NOTE | 2019-08-08 14:31 | Pulmonolgy Critical Care Note ---
Critical Care - Asmt/Plan Assessment/Plan: (1) Pneumonia of both lower lobes Assessment & Plan: VDRF, intubated 07/12/19, S/P FOB 07/12/19; Reintubated (2) Catheter-associated urinary tract infection Assessment & Plan: PsA and proteus (3) Respiratory failure with hypoxia Assessment & Plan: Acute on chronic hypercapnic and hypoxemic RF 2/2 PNA VDRF as able Duplex neg, minimally elevated d-dimer, unlikely VTE and already on a NOAC (4) HCAP (healthcare-associated pneumonia) (5) Paraplegia (6) Sepsis (7) Suprapubic catheter (8) Restrictive lung disease due to kyphoscoliosis (9) Decubitus skin ulcer (10) Spina bifida (11) Anemia, acute Plan: * cont mechanical ventilatory support, wean as tolerated * PS trials * Monitor ABG * Abx per ID * Good pulmonary hygiene: duonebs and mucomyst q4 * Replete electrolytes as neded * cont to hold eliquis given drop in H/H, monitor, f/u stool occult blood * given the recurrent nature of this patient's respiratory failure, immobile status, impaired swallow mechanisim, may need tracheostomy * needs PEG tube * Unclear if will be able to transfer to [facility] as no bed available there Respiratory: ABG, weaning trial Cardiac: continue to monitor HR/BP Renal: F/U I&O Gastrointestinal: continue feedings/current rate Hematologic: monitor H/H Time Spent (Minutes): 40 - cc Critical Care - Objective Last 24 Hour Vital Signs Date Time Temp Pulse Resp B/P (MAP) Pulse Ox O2 Delivery O2 Flow Rate FiO2 08/08/19 13:15 61 16 40 08/08/19 12:00 Mechanical Ventilator Mechanical Ventilator 08/08/19 12:00 40 08/08/19 12:00 98.3 65 17 114/45 (68) 99 08/08/19 12:00 61 08/08/19 11:15 65 18 40 08/08/19 11:00 69 18 114/58 (76) 99 08/08/19 10:00 63 17 102/58 (73) 97 08/08/19 09:07 68 19 40 08/08/19 09:00 67 20 118/67 (84) 100 08/08/19 08:00 98.7 62 16 95/56 (69) 97 08/08/19 08:00 66 08/08/19 08:00 40 08/08/19 08:00 Mechanical Ventilator Mechanical Ventilator 08/08/19 07:09 66 22 Mechanical Ventilator 40 08/08/19 07:00 67 18 88/55 (66) 98 08/08/19 06:30 61 17 08/08/19 06:00 64 17 110/55 (73) 99 08/08/19 05:00 67 17 101/57 (72) 100 08/08/19 04:51 67 16 40 08/08/19 04:00 Mechanical Ventilator Mechanical Ventilator 08/08/19 04:00 35 08/08/19 04:00 99.0 71 19 109/62 (78) 100 08/08/19 03:47 72 18 100 Mechanical Ventilator 40 75 18 40 08/08/19 03:11 65 08/08/19 03:00 71 21 109/67 (81) 100 08/08/19 02:00 64 17 93/55 (68) 100 08/08/19 01:24 65 16 40 08/08/19 01:00 69 17 100/58 (72) 95 08/08/19 00:19 64 08/08/19 00:00 Mechanical Ventilator Mechanical Ventilator 08/08/19 00:00 99.1 73 16 90/55 (67) 92 08/07/19 23:00 75 19 95/54 (68) 96 08/07/19 22:58 75 22 100 Mechanical Ventilator 40 77 22 40 08/07/19 22:00 73 18 112/58 (76) 100 08/07/19 21:00 76 20 108/64 (79) 100 08/07/19 20:35 70 19 40 08/07/19 20:00 98.4 68 17 110/62 (78) 100 08/07/19 20:00 Mechanical Ventilator Mechanical Ventilator 08/07/19 20:00 35 08/07/19 19:54 68 08/07/19 19:29 65 18 100 Mechanical Ventilator 40 68 18 40 08/07/19 19:00 67 18 104/60 (75) 100 08/07/19 18:00 69 20 110/64 (79) 100 08/07/19 17:35 68 20 40 08/07/19 17:00 74 21 107/64 (78) 100 08/07/19 16:00 Mechanical Ventilator Mechanical Ventilator 08/07/19 16:00 35 08/07/19 16:00 75 08/07/19 16:00 98.4 85 23 114/68 (83) 98 08/07/19 15:10 79 22 40 08/07/19 15:00 82 21 103/71 (82) 95 Status: awake Condition: improving HEENT: atraumatic Neck: full ROM Lungs: rhonchi Heart: HR/BP stable Abdomen: soft, non-tender Extremities: edema Accucheck: 114 Critical Care - Subjective ROS Limited/Unobtainable: Yes Interval Events: Tolerated PS 10 yesterday. Noted to fail SBT today but unclear why. Seems comfortable. Mild secretions. Condition: stable EKG Rhythm: Sinus Rhythm FI02: 40 Vent Support Breath Rate: 16 Vent Support Mode: AC Vent Tidal Volume: 400 Sputum Amount: Small PEEP: 5.0 PIP: 22 Tube Feeding Amount: 45 I&O: Intake and Output 08/07/19 08/08/19 19:00 07:00 Intake Total 1000 ml 955 ml Output Total 1890 ml 970 ml Balance -890 ml -15 ml Intake Free Water 0 ml 60 ml IV Total 410 ml 355 ml Tube Feeding 540 ml 540 ml Blood Product 50 ml Output Urine Total 1890 ml 970 ml # Bowel Movements 2 1 ET-Tube: 7.5 ET Position: 23 Walker Bonilla MD Aug 08, 2019 14:30
--- NOTE | 2019-08-08 16:05 | NUR ---
NURSE NOTES: Repositioned patient. Provided oral care. bed bath given.
--- NOTE | 2019-08-08 18:07 | NUR ---
NURSE NOTES: Repositioned patient. Oral care provided.
--- NOTE | 2019-08-08 18:53 | NUR ---
RESPIRATORY NOTE: Switched patient back to AC mode
--- NOTE | 2019-08-08 19:15 | NUR ---
NURSE NOTES: Seen by Dr. Lui and replaced suprapubic cath 22fr/30cc. Noted with yellow urine.
--- NOTE | 2019-08-08 19:30 | NUR ---
NURSE NOTES: Received pt awake and alert, followed simple commands, orally intubated back to ac mode at this time, SR on the monitor, Bp stable afebrile, Tolerating NGT fdg at 45ml/hr, residuals 4-6ml. HOB kept elevated. On aspiration precaution. Pt has pressure sores sacral area covered with optifoam drsg. On p200 mattress. Turned q 2hrs with good skin care done. will continue to monitor.
--- NOTE | 2019-08-08 19:30 | NUR ---
HAND-OFF: Report given to [facility]. Endorsed plan of care.
[2019-08-08] MEDS: Dyna-Hex 2% Top Sol 2oz TOPIC SCH (20:09)
--- NOTE | 2019-08-08 20:15 | Consultation ---
DATE OF CONSULTATION: 08/08/2019 UROLOGY CONSULTATION CONSULTING PHYSICIAN: Waldemar Lui M.D. REFERRING PHYSICIAN: Gigi Sanabria M.D. CHIEF COMPLAINT/HISTORY OF PRESENT ILLNESS: I was asked by Dr. Sanabria to evaluate this unfortunate 49-year-old female regarding a history of an SP tube and need of changing in the setting of infection. Briefly, the patient has a history of spina bifida. She has undergone multiple previous procedures including SIGNAL PERSON shunt, bilateral renal stents, and placement of suprapubic catheter. She presented to the hospital with shortness of breath and was found to have healthcare-associated pneumonia with respiratory failure and hypoxia. She was also found to have evidence of urinary tract infection. She was initially placed on nasal cannula and then BiPAP. A decision was then later made to intubate the patient. The patient was placed in the ICU after intubation. Given her urinary tract infection and chronic suprapubic catheter, I was asked to exchange her tube. The patient cannot provide any information. Most of the information is gathered from the chart. PAST MEDICAL HISTORY: 1. Spina bifida. 2. Neurogenic bladder secondary to same. 3. Urinary tract infections. PAST SURGICAL HISTORY: 1. SIGNAL PERSON shunt placement. 2. Bilateral renal stents. 3. SP tube placement. 4. Bronchoscopy. MEDICATIONS: Please see the chart for current medications administration details. ALLERGIES: Include penicillin. SOCIAL HISTORY: Unobtainable. FAMILY HISTORY: Unobtainable. REVIEW OF SYSTEMS: A 14-system review of systems cannot be done as the patient cannot cooperate with questioning. PHYSICAL EXAMINATION: GENERAL: The patient is a middle-aged female, intubated, in no obvious distress. HEENT: NC/AT. Oropharynx intubated. NECK: Supple. CHEST: Within normal limits. ABDOMEN: Soft, somewhat obese. SP tube site clean, dry and intact. EXTREMITIES: Warm and well perfused. No cyanosis, clubbing, or edema. NEUROLOGIC: Deferred as the patient cannot cooperate with the exam. LABORATORY DATA: White blood cell count 10.8, hematocrit 31.7, and platelets 361,000. PT, PTT, and INR within normal limits. Sodium 138, potassium 3.8, chloride 103, bicarbonate 30, BUN 16, and creatinine 0.3. Glucose 116. Calcium 8.5. LFTs within normal limits. Urinalysis, specific gravity 1.010, pH 7.0. Dip test is notable for 2+ protein, 3+ occult blood, 3+ leukocyte esterase. Microanalysis - 2 to 4 red and too numerous to count white blood cells per high-power field and many bacteria seen. HIV negative. Urine culture with Marbella parapsilosis. Blood cultures no growth. Previous urine culture in June with Pseudomonas. DIAGNOSTIC IMAGING: Abdominal x-ray with NG tube and tip in the body of the stomach. There is opacification of the left hemithorax. There are bilateral nephroureteral tubes. There is a superiorly dislocated right femur with intramedullary alysha and wires. Other findings as noted. ASSESSMENT AND PLAN: In summary, the patient is a 49-year-old with a history of neurogenic bladder secondary to spina bifida. She is managed with a suprapubic catheter. She presents to the hospital with respiratory distress and has been intubated. She has evidence of pneumonia. She also has evidence of urinary tract infection and her SP tube is in need of changing. Physical exam reveals a debilitated middle-aged female, intubated and sedated with an SP tube. Laboratory data is notable for evidence of urinary tract infection and culture has grown Marb[place]. Diagnostic imaging reveals the stents described above. Today, at the bedside, I removed and replaced the patient's suprapubic catheter. It was irrigated and irrigated easily indicating good position within the bladder. It can be kept in place as necessary. Thank you for allowing me to participate in the care of this unfortunate lady. Please do not hesitate to contact me with any questions that you may further have regarding her care. I will see her with you as needed. Waldemar Lui M.D. DR: FIELMON JOB#: [id number] CC:
--- NOTE | 2019-08-08 21:30 | NUR ---
NURSE NOTES: Suctioned pt orally with lg amt of mucoid secretions.02 sat 98%
--- NOTE | 2019-08-08 22:00 | NUR ---
NURSE NOTES: Family at bedside- updated with pts condition. = verbalized understanding.
--- NOTE | 2019-08-08 22:34 | Internal Med Progress Note ---
Subjective Physician Name Wil Masters Attending Physician Wil Masters MD Current Medications Medications (Trade) Dose Ordered Sig/Sandeep Route PRN Reason Start Time Stop Time Status Last Admin Dose Admin Acetaminophen (Tylenol) 650 mg Q6H PRN GT Mild Pain/Temp > 100.5 07/31/19 12:45 08/11/19 12:43 08/03/19 09:32 Acetylcysteine (Mucomyst) 400 mg Q4HRT HHN 08/01/19 11:00 08/16/19 18:59 08/08/19 18:55 Albuterol/ Ipratropium (Albuterol/ Ipratropium) 3 ml Q4HRT HHN 08/07/19 07:00 08/12/19 06:59 08/08/19 18:55 Chlorhexidine Gluconate (Debora-Hex 2%) 1 applic DAILY@2000 TOPIC 07/31/19 20:00 08/13/19 19:59 08/08/19 20:09 Heparin Sodium (Porcine) (Heparin 5000 units/ml) 5,000 units EVERY 12 HOURS SUBQ 08/04/19 21:00 09/03/19 20:59 08/08/19 21:16 Linezolid 300 ml @ 300 mls/hr Q12HR@0500,1700 IVPB 07/31/19 17:00 08/11/19 23:59 08/08/19 17:02 Meropenem 1 gm/ Sodium Chloride 55 ml @ 110 mls/hr Q8H IVPB 07/31/19 18:00 08/11/19 23:59 08/08/19 17:02 Metoclopramide HCl (Reglan) 5 mg Q6H PRN IVP Nausea & Vomiting 08/04/19 10:00 09/03/19 09:59 Pantoprazole (Protonix) 40 mg DAILY IV 08/01/19 09:00 08/31/19 08:59 08/08/19 08:26 Allergies: Coded Allergies: PENICILLIN G (Verified Allergy, Unknown, 12/02/18) Tolerates cabapenem, cephalosporin PENICILLINS (Unverified Allergy, Unknown, 12/02/18) Subjective IN ICU, Intubated, awake, responsive, able to F/U with commands. Hgb: 9.9. Objective Last Vital Signs Date Time Temp Pulse Resp B/P (MAP) Pulse Ox O2 Delivery O2 Flow Rate FiO2 08/08/19 21:04 73 18 40 08/08/19 19:00 124/63 (83) 100 08/08/19 18:55 Mechanical Ventilator 08/08/19 16:00 98.8 Laboratory Tests Test 08/08/19 11:30 White Blood Count 10.8 K/UL (4.8-10.8) Red Blood Count 4.30 M/UL (4.20-5.40) Hemoglobin 9.9 G/DL (12.0-16.0) L Hematocrit 31.7 % (37.0-47.0) L Mean Corpuscular Volume 74 FL (80-99) L Mean Corpuscular Hemoglobin 23.1 PG (27.0-31.0) L Mean Corpuscular Hemoglobin Concent 31.2 G/DL (32.0-36.0) L Red Cell Distribution Width 21.1 % (11.6-14.8) H Platelet Count 361 K/UL (150-450) Mean Platelet Volume 4.8 FL (6.5-10.1) L Neutrophils (%) (Auto) 68.9 % (45.0-75.0) Lymphocytes (%) (Auto) 20.0 % (20.0-45.0) Monocytes (%) (Auto) 5.1 % (1.0-10.0) Eosinophils (%) (Auto) 5.3 % (0.0-3.0) H Basophils (%) (Auto) 0.7 % (0.0-2.0) Sodium Level 138 MMOL/L (136-145) Potassium Level 3.8 MMOL/L (3.5-5.1) Chloride Level 103 MMOL/L (98-107) Carbon Dioxide Level 30 MMOL/L (21-32) Anion Gap 5 mmol/L (5-15) Blood Urea Nitrogen 16 mg/dL (7-18) Creatinine 0.3 MG/DL (0.55-1.30) L Estimat Glomerular Filtration Rate > 60 mL/min (>60) Glucose Level 116 MG/DL (74-106) H Calcium Level 8.5 MG/DL (8.5-10.1) Phosphorus Level 3.5 MG/DL (2.5-4.9) Magnesium Level 1.9 MG/DL (1.8-2.4) Total Bilirubin 0.2 MG/DL (0.2-1.0) Aspartate Amino Transf (AST/SGOT) 15 U/L (15-37) Alanine Aminotransferase (ALT/SGPT) 16 U/L (12-78) Alkaline Phosphatase 61 U/L (46-116) Total Protein 7.5 G/DL (6.4-8.2) Albumin 2.6 G/DL (3.4-5.0) L Globulin 4.9 g/dL Albumin/Globulin Ratio 0.5 (1.0-2.7) L HIV (1&2) Antibody Rapid Negative (NEGATIVE) Intake and Output 08/07/19 08/08/19 19:00 07:00 Intake Total 1000 ml 955 ml Output Total 1890 ml 970 ml Balance -890 ml -15 ml Intake Free Water 0 ml 60 ml IV Total 410 ml 355 ml Tube Feeding 540 ml 540 ml Blood Product 50 ml Output Urine Total 1890 ml 970 ml # Bowel Movements 2 1 Objective General: Intubated, awake, responsive. HEENT: NCAT, sclera anicteric, PERRL, EOMI, ET tube intact, NG Tube. Neck: Supple, no significant jugular venous distention, Lungs: Mechanical breath sound, scattered rhonchi, no Wheeze. Heart: Regular rate and rhythm, normal S1/S2, no murmurs/gallops Abdomen: soft, nontender, nondistended. Normoactive bowel sounds, morbid obesity. / Rectal: suprapubic cath. Extremities: No Cyanosis , clubbing or edema. Left upper extremity PICC line Neuro: A&O x 3, Able to move Upper extremities, unable to move LE's. Paraplegic. Skin: warm, no rash. Assessment/Plan Assessment/Plan 1) Pneumonia of both lower lobes Assessment & Plan: VDRF, intubated 07/12/19, S/P FOB 07/12/19; Reintubated (2) Catheter-associated urinary tract infection Assessment & Plan: PsA and proteus (3) Acute Respiratory failure with hypoxia Assessment & Plan: Acute on chronic hypercapnic and hypoxemic RF 2/2 PNA VDRF as able Duplex neg, minimally elevated d-dimer, unlikely VTE On Eliquis. (4) HCAP (healthcare-associated pneumonia) (5) Paraplegia (6) Sepsis (7) Suprapubic catheter (8) Restrictive lung disease due to kyphoscoliosis (9) Decubitus skin ulcer (10) Spina bifida Plan: * cont mechanical ventilatory support, wean as tolerated * Check ABG * Monitor Labs * F/U tracheal aspirate * Good pulmonary hygiene: Duonebs and Mucomyst q4 * given the recurrent nature of this patient's respiratory failure, if not able to get extubated quickly, may need tracheostomy * Tolerated tube feeding at 45 cc/hr * Unclear if will be able to transfer to [facility] as no bed available there * Abx: Zyvox and Meropenem Wil Masters MD Aug 08, 2019 22:34
[2019-08-09] VITALS (27 sets, daily range): BP systolic 72–127; BP diastolic 34–91
--- NOTE | 2019-08-09 | NUR ---
NURSE NOTES: Dozing on and off with vss.
--- NOTE | 2019-08-09 01:00 | NUR ---
NURSE NOTES: Pt pulled out NGT, reinserted NGT, orally. placement was verified by head chargerEMMA Rodriguez and its in the stomache. Fdg was resumed.
[2019-08-09] MEDS: Meropenem 1 GM in NS 55 ML IVPB SCH ×3 (01:48→17:23)
--- NOTE | 2019-08-09 03:00 | NUR ---
NURSE NOTES: Complete bath with bed changed was done.
[2019-08-09] MEDS: Albuterol/Ipratropium 3ml neb HHN SCH ×6 (03:07→22:58)
[2019-08-09] MEDS: Acetylcysteine 20% Soln 4ml HHN SCH ×6 (03:08→22:58)
--- NOTE | 2019-08-09 05:00 | NUR ---
NURSE NOTES: Sleeping well at this time with vss.
[2019-08-09 05:40] LABS: BASOPHILS % (AUTO) 0.6 % (0.0-2.0); EOSINOPHILS % (AUTO) 3.2 % (0.0-3.0); HEMATOCRIT 33.9 % (37.0-47.0); HEMOGLOBIN 10.8 G/DL (12.0-16.0); LYMPHOCYTES % (AUTO) 11.9 % (20.0-45.0); MEAN CORPUSCULAR VOLUME 74 FL (80-99); MONOCYTES % (AUTO) 4.7 % (1.0-10.0); NEUTROPHILS % (AUTO) 79.6 % (45.0-75.0); PLATELET COUNT 352 K/UL (150-450); RED CELL DISTRIBUTION WIDTH 21.3 % (11.6-14.8); WHITE BLOOD COUNT 13.7 K/UL (4.8-10.8)
[2019-08-09 06:00] LABS: ALANINE AMINOTRANSFERASE 18 U/L (12-78); ALBUMIN 2.7 G/DL (3.4-5.0); ALBUMIN/GLOBULIN RATIO 0.5 (1.0-2.7); ALKALINE PHOSPHATASE 61 U/L (46-116); ANION GAP 6 mmol/L (5-15); ASPARTATE AMINO TRANSFERASE 13 U/L (15-37); BILIRUBIN,TOTAL 0.2 MG/DL (0.2-1.0); BLOOD UREA NITROGEN 15 mg/dL (7-18); CALCIUM 8.9 MG/DL (8.5-10.1); CARBON DIOXIDE 30 MMOL/L (21-32); CHLORIDE 104 MMOL/L (98-107); CREATININE 0.4 MG/DL (0.55-1.30); POTASSIUM 3.6 MMOL/L (3.5-5.1); SODIUM 140 MMOL/L (136-145)
--- NOTE | 2019-08-09 07:18 | NUR ---
HAND-OFF: Report given to Demetrius CARTER for continuity of care..
--- NOTE | 2019-08-09 07:20 | NUR ---
NURSE NOTES: Received report from EMMA [place]. Patient asleep and responsive to verbal, open eyes with tracking. Able to follow simple commands. ETT 7.5/23cm at lip line with vent setting AC 16, VT 400, Peep 5 and FiO2 40%. OGT intact and running with Vital AF 1.2 @ 45ml/hr. Suprapubic intact and draining with yellow color urine. Left upper arm PICC intact and clean with TKO. Kept dry, clean, comfortable and HOB>30. Will continue plan of care.
[2019-08-09] MEDS: Pantoprazole Inj IV SCH (08:25)
[2019-08-09] MEDS: Heparin 5000 units/ml inj SUBQ SCH ×2 (08:26→20:50)
--- NOTE | 2019-08-09 08:40 | NUR ---
RESPIRATORY NOTE: Pt placed on CPAP [address] Bonilla. No signs of distress. RSBI 58, NIF -26. RN Demetrius aware.
--- NOTE | 2019-08-09 08:42 | NUR ---
NURSE NOTES: Seen by Dr. Bonilla and assessed patient. RT is at the bedside. Started weaning.
--- NOTE | 2019-08-09 10:05 | NUR ---
NURSE NOTES: Repositioned patient. Provided oral care.
--- NOTE | 2019-08-09 13:25 | Pulmonolgy Critical Care Note ---
Critical Care - Asmt/Plan Assessment/Plan: (1) Pneumonia of both lower lobes Assessment & Plan: VDRF, intubated 07/12/19, S/P FOB 07/12/19; Reintubated (2) Catheter-associated urinary tract infection Assessment & Plan: PsA and proteus (3) Respiratory failure with hypoxia Assessment & Plan: Acute on chronic hypercapnic and hypoxemic RF 2/2 PNA VDRF as able Duplex neg, minimally elevated d-dimer, unlikely VTE and already on a NOAC (4) HCAP (healthcare-associated pneumonia) (5) Paraplegia (6) Sepsis (7) Suprapubic catheter (8) Restrictive lung disease due to kyphoscoliosis (9) Decubitus skin ulcer (10) Spina bifida (11) Anemia, acute Plan: * cont mechanical ventilatory support, wean as tolerated * PS trials * Monitor ABG * Abx per ID, ?stop date * Good pulmonary hygiene: duonebs and mucomyst q4 * Replete electrolytes as neded * cont to hold eliquis given drop in H/H, monitor, f/u stool occult blood * given the recurrent nature of this patient's respiratory failure, immobile status, impaired swallow mechanisim, may need tracheostomy * needs PEG tube * Unclear if will be able to transfer to [facility] as no bed available there Respiratory: weaning trial Renal: F/U I&O Hematologic: monitor H/H Time Spent (Minutes): 40 - cc Critical Care - Objective Last 24 Hour Vital Signs Date Time Temp Pulse Resp B/P (MAP) Pulse Ox O2 Delivery O2 Flow Rate FiO2 08/09/19 12:00 40 08/09/19 12:00 Mechanical Ventilator Mechanical Ventilator 08/09/19 12:00 60 08/09/19 12:00 99.2 62 16 95/43 (60) 99 08/09/19 11:00 67 17 90/43 (59) 93 08/09/19 10:50 61 16 100 Mechanical Ventilator 40 08/09/19 10:30 76 20 40 08/09/19 10:00 71 22 115/63 (80) 100 08/09/19 09:00 83 18 96/68 (77) 100 08/09/19 08:40 40 08/09/19 08:40 100 08/09/19 08:40 77 22 40 40 08/09/19 08:00 69 08/09/19 08:00 Mechanical Ventilator Mechanical Ventilator 08/09/19 08:00 98.8 73 17 98/46 (63) 100 08/09/19 07:22 83 18 100 Mechanical Ventilator 40 79 24 40 08/09/19 07:00 81 18 106/53 (70) 97 08/09/19 06:30 79 18 08/09/19 06:00 82 18 107/53 (71) 97 08/09/19 05:00 87 17 110/53 (72) 97 08/09/19 04:47 86 16 40 08/09/19 04:00 98.4 87 17 106/50 (68) 96 08/09/19 04:00 40 08/09/19 04:00 94 08/09/19 04:00 Mechanical Ventilator Mechanical Ventilator 08/09/19 03:08 103 17 100 Mechanical Ventilator 40 106 16 40 08/09/19 03:00 93 20 96/60 (72) 99 08/09/19 02:00 109 20 124/80 (95) 99 08/09/19 01:09 83 17 40 08/09/19 01:00 78 17 105/60 (75) 99 08/09/19 00:00 74 08/09/19 00:00 40 08/09/19 00:00 98.2 71 17 113/49 (70) 98 08/09/19 00:00 Mechanical Ventilator Mechanical Ventilator 08/08/19 23:09 75 18 100 Mechanical Ventilator 40 76 19 40 08/08/19 23:00 72 20 114/60 (78) 100 08/08/19 22:00 75 19 106/62 (77) 100 08/08/19 21:04 73 18 40 08/08/19 21:00 72 21 115/60 (78) 100 08/08/19 20:00 40 08/08/19 20:00 98.6 59 16 120/63 (82) 100 08/08/19 20:00 Mechanical Ventilator Mechanical Ventilator 08/08/19 19:00 59 16 124/63 (83) 100 08/08/19 18:55 62 21 100 Mechanical Ventilator 40 65 21 40 08/08/19 18:00 63 19 129/56 (80) 97 08/08/19 17:00 65 21 159/75 (103) 100 08/08/19 16:56 69 25 40 08/08/19 16:00 61 08/08/19 16:00 Mechanical Ventilator Mechanical Ventilator 08/08/19 16:00 98.8 64 16 119/76 (90) 100 08/08/19 15:30 40 08/08/19 15:06 59 20 100 40 08/08/19 15:00 59 12 115/54 (74) 100 08/08/19 14:51 54 19 40 08/08/19 14:00 58 18 119/69 (86) 100 Status: sedated Condition: improving HEENT: atraumatic Lungs: rales Heart: HR/BP stable Abdomen: soft, non-tender Extremities: edema Accucheck: 114 Critical Care - Subjective Interval Events: PS 12 for several hours yesterday, back on vent. Not tried yet today. Mild but thick secretions. FI02: 40 Vent Support Breath Rate: 16 Vent Support Mode: AC Vent Tidal Volume: 400 Sputum Amount: Small PEEP: 5.0 PIP: 33 Tube Feeding Amount: 45 I&O: Intake and Output 08/08/19 08/09/19 19:00 07:00 Intake Total 1045 ml 985 ml Output Total 755 ml 1000 ml Balance 290 ml -15 ml Intake Free Water 150 ml 90 ml IV Total 355 ml 355 ml Tube Feeding 540 ml 540 ml Output Urine Total 755 ml 1000 ml # Bowel Movements 2 2 ET-Tube: 7.5 ET Position: 23 Walker Bonilla MD Aug 09, 2019 13:25
--- NOTE | 2019-08-09 13:30 | NUR ---
NURSE NOTES: Seen by Dr. Sanabria and assessed patient.
--- NOTE | 2019-08-09 13:49 | Infectious Diseases Prog Note ---
Assessment/Plan Problems: (1) Pneumonia of both lower lobes Assessment & Plan: with B/L infiltrates worse on the right with hypoxemia , suspect recurrent aspiration , continue meropenem and zyvox coverage for two weeks , repeated sputum culture on 07/31 and 08/01 are negative for any pathogens. aspiration precaution, monitor CXR , may need tube feeding and tracheostomy in the future if continue to fail weaning trials and unable to protect her airway , D/W family . EOT 08/11/19 (2) Sepsis Assessment & Plan: with streptococcus alpha hemolytic , resolved , on zyvox for pneumonia coverage too , repeated blood culture is negative so far on 07/29 which confirm clearance , may need to remove the central line and put a new one if repeated culture in the future turns positive again , will treat with antibiotics for 2 weeks . EOT 08/11/19 (3) Decubitus skin ulcer Assessment & Plan: of the sacrum, continue off loading and local wound care as per hospital protocol (4) Respiratory failure with hypoxia Assessment & Plan: got worse again , now reintubated again and on mechanical ventilation , monitor ABG and CXR as per pulmonary , aspiration precaution and keep HOB > 30 DEGREE (5) At risk for aspiration pneumonia Assessment & Plan: Patient is unable to protect her airway and continues to aspirate , and requires aggressive suctioning due to high volum secretions from her throat . Family refused tracheostomy and tube feeding on multiple discussion I had with them , and they are aware of the risk and benefits . 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 recommend aspiration precaution, tracheostomy and tube feeding . D/W other consultants and primary (6) Anemia Assessment & Plan: recurrent , rule out GI source VS alveolar hemorrhage, close monitor of H/H, and transfusion as needed . GI work up (7) Catheter-associated urinary tract infection Assessment & Plan: now with yeast , suspect catheter colonization, S/P suprapubic catheter change , no need for antifungal treatment at this point Assessment/Plan D/W consultants Subjective Constitutional: Reports: no symptoms HEENT: Reports: no symptoms, congestion Respiratory: Reports: other Breasts: Reports: no symptoms Cardiovascular: Reports: no symptoms Gastrointestinal/Abdominal: Reports: diarrhea Genitourinary: Reports: no symptoms Neurologic: Reports: no symptoms Psychiatric: Reports: anxiety Skin: Reports: ulcer Endocrine: Reports: no symptoms Hematologic: Reports: no symptoms Musculoskeletal: Reports: no symptoms Allergies: Coded Allergies: PENICILLIN G (Verified Allergy, Unknown, 12/02/18) Tolerates cabapenem, cephalosporin PENICILLINS (Unverified Allergy, Unknown, 12/02/18) Subjective she was still intubated , on mechanical ventilation due to respiratory distress in ICU , has no significant secretions from her ET tube as per the nurse , fully awake and responsive , still congested with mild wheezing , no fever today , no chills , has TWO bowel movements since last night loose Objective Vital Signs Last 24 Hour Vital Signs Date Time Temp Pulse Resp B/P (MAP) Pulse Ox O2 Delivery O2 Flow Rate FiO2 08/09/19 12:00 40 08/09/19 12:00 Mechanical Ventilator Mechanical Ventilator 08/09/19 12:00 60 08/09/19 12:00 99.2 62 16 95/43 (60) 99 08/09/19 11:00 67 17 90/43 (59) 93 08/09/19 10:50 61 16 100 Mechanical Ventilator 40 08/09/19 10:30 76 20 40 08/09/19 10:00 71 22 115/63 (80) 100 08/09/19 09:00 83 18 96/68 (77) 100 08/09/19 08:40 40 08/09/19 08:40 100 08/09/19 08:40 77 22 40 40 08/09/19 08:00 69 08/09/19 08:00 Mechanical Ventilator Mechanical Ventilator 08/09/19 08:00 98.8 73 17 98/46 (63) 100 08/09/19 07:22 83 18 100 Mechanical Ventilator 40 79 24 40 08/09/19 07:00 81 18 106/53 (70) 97 08/09/19 06:30 79 18 08/09/19 06:00 82 18 107/53 (71) 97 08/09/19 05:00 87 17 110/53 (72) 97 08/09/19 04:47 86 16 40 08/09/19 04:00 98.4 87 17 106/50 (68) 96 08/09/19 04:00 40 08/09/19 04:00 94 08/09/19 04:00 Mechanical Ventilator Mechanical Ventilator 08/09/19 03:08 103 17 100 Mechanical Ventilator 40 106 16 40 08/09/19 03:00 93 20 96/60 (72) 99 08/09/19 02:00 109 20 124/80 (95) 99 08/09/19 01:09 83 17 40 08/09/19 01:00 78 17 105/60 (75) 99 08/09/19 00:00 74 08/09/19 00:00 40 08/09/19 00:00 98.2 71 17 113/49 (70) 98 08/09/19 00:00 Mechanical Ventilator Mechanical Ventilator 08/08/19 23:09 75 18 100 Mechanical Ventilator 40 76 19 40 08/08/19 23:00 72 20 114/60 (78) 100 08/08/19 22:00 75 19 106/62 (77) 100 08/08/19 21:04 73 18 40 08/08/19 21:00 72 21 115/60 (78) 100 08/08/19 20:00 40 08/08/19 20:00 98.6 59 16 120/63 (82) 100 08/08/19 20:00 Mechanical Ventilator Mechanical Ventilator 08/08/19 19:00 59 16 124/63 (83) 100 08/08/19 18:55 62 21 100 Mechanical Ventilator 40 65 21 40 08/08/19 18:00 63 19 129/56 (80) 97 08/08/19 17:00 65 21 159/75 (103) 100 08/08/19 16:56 69 25 40 08/08/19 16:00 61 08/08/19 16:00 Mechanical Ventilator Mechanical Ventilator 08/08/19 16:00 98.8 64 16 119/76 (90) 100 08/08/19 15:30 40 08/08/19 15:06 59 20 100 40 08/08/19 15:00 59 12 115/54 (74) 100 08/08/19 14:51 54 19 40 08/08/19 14:00 58 18 119/69 (86) 100 Height (Feet): 4 Height (Inches): 10.00 Weight (Pounds): 156 General Appearance: WD/WN, no acute distress HEENT: normocephalic, atraumatic, anicteric, mucous membranes moist, PERRL, EOMI, pharynx normal, supple Respiratory/Chest: chest wall non-tender, lungs clear, normal breath sounds, no respiratory distress, no accessory muscle use Cardiovascular: normal peripheral pulses, normal rate, regular rhythm, no gallop/murmur, no JVD Abdomen: normal bowel sounds, soft, non tender, no organomegaly, non distended , no mass, no scars Genitourinary: normal external genitalia, other Extremities: no cyanosis, no clubbing Skin: no rash, no lesions, no ulcers 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, alert, responsive Lymphatic: no neck adenopathy, no groin adenopathy Musculoskeletal: normal muscle bulk, no effusion Laboratory Tests Test 08/09/19 05:09 08/09/19 09:53 White Blood Count 13.7 K/UL (4.8-10.8) H Red Blood Count 4.60 M/UL (4.20-5.40) Hemoglobin 10.8 G/DL (12.0-16.0) L Hematocrit 33.9 % (37.0-47.0) L Mean Corpuscular Volume 74 FL (80-99) L Mean Corpuscular Hemoglobin 23.4 PG (27.0-31.0) L Mean Corpuscular Hemoglobin Concent 31.8 G/DL (32.0-36.0) L Red Cell Distribution Width 21.3 % (11.6-14.8) H Platelet Count 352 K/UL (150-450) Mean Platelet Volume 4.8 FL (6.5-10.1) L Neutrophils (%) (Auto) 79.6 % (45.0-75.0) H Lymphocytes (%) (Auto) 11.9 % (20.0-45.0) L Monocytes (%) (Auto) 4.7 % (1.0-10.0) Eosinophils (%) (Auto) 3.2 % (0.0-3.0) H Basophils (%) (Auto) 0.6 % (0.0-2.0) Prothrombin Time 10.8 SEC (9.30-11.50) Prothromb Time International Ratio 1.0 (0.9-1.1) Activated Partial Thromboplast Time 30 SEC (23-33) Sodium Level 140 MMOL/L (136-145) Potassium Level 3.6 MMOL/L (3.5-5.1) Chloride Level 104 MMOL/L (98-107) Carbon Dioxide Level 30 MMOL/L (21-32) Anion Gap 6 mmol/L (5-15) Blood Urea Nitrogen 15 mg/dL (7-18) Creatinine 0.4 MG/DL (0.55-1.30) L Estimat Glomerular Filtration Rate > 60 mL/min (>60) Glucose Level 134 MG/DL (74-106) H Calcium Level 8.9 MG/DL (8.5-10.1) Total Bilirubin 0.2 MG/DL (0.2-1.0) Aspartate Amino Transf (AST/SGOT) 13 U/L (15-37) L Alanine Aminotransferase (ALT/SGPT) 18 U/L (12-78) Alkaline Phosphatase 61 U/L (46-116) Total Protein 7.7 G/DL (6.4-8.2) Albumin 2.7 G/DL (3.4-5.0) L Globulin 5.0 g/dL Albumin/Globulin Ratio 0.5 (1.0-2.7) L Arterial Blood pH 7.392 (7.350-7.450) Arterial Blood Partial Pressure CO2 49.8 mmHg (35.0-45.0) H Arterial Blood Partial Pressure O2 100.5 mmHg (75.0-100.0) H Arterial Blood HCO3 29.6 mmol/L (22.0-26.0) H Arterial Blood Oxygen Saturation 96.8 % (95-100) Arterial Blood Base Excess 3.9 (-2-2) H Gerard Test Positive Current Medications Medications (Trade) Dose Ordered Sig/Sandeep Route PRN Reason Start Time Stop Time Status Last Admin Dose Admin Acetaminophen (Tylenol) 650 mg Q6H PRN GT Mild Pain/Temp > 100.5 07/31/19 12:45 08/11/19 12:43 08/03/19 09:32 Acetylcysteine (Mucomyst) 400 mg Q4HRT [facility] 08/01/19 11:00 08/16/19 18:59 08/09/19 10:53 Albuterol/ Ipratropium (Albuterol/ Ipratropium) 3 ml Q4HRT N 08/07/19 07:00 08/12/19 06:59 08/09/19 10:53 Chlorhexidine Gluconate (Debora-Hex 2%) 1 applic DAILY@2000 TOPIC 07/31/19 20:00 08/13/19 19:59 08/08/19 20:09 Heparin Sodium (Porcine) (Heparin 5000 units/ml) 5,000 units EVERY 12 HOURS SUBQ 08/04/19 21:00 09/03/19 20:59 08/09/19 08:26 Linezolid 300 ml @ 300 mls/hr Q12HR@0500,1700 IVPB 07/31/19 17:00 08/11/19 23:59 08/09/19 05:21 Meropenem 1 gm/ Sodium Chloride 55 ml @ 110 mls/hr Q8H IVPB 07/31/19 18:00 08/11/19 23:59 08/09/19 09:16 Metoclopramide HCl (Reglan) 5 mg Q6H PRN IVP Nausea & Vomiting 08/04/19 10:00 09/03/19 09:59 Pantoprazole (Protonix) 40 mg DAILY IV 08/01/19 09:00 08/31/19 08:59 08/09/19 08:25 Gigi Sanabria M.D. Aug 09, 2019 13:49
--- NOTE | 2019-08-09 14:02 | NUR ---
NURSE NOTES: Bed bath given and changed sacral wound dressing, taken picture.
--- NOTE | 2019-08-09 16:02 | NUR ---
NURSE NOTES: Repositioned patient and oral care provided.
--- NOTE | 2019-08-09 17:37 | NUR ---
NURSE NOTES: Father/Quinn Mueller visited and explained necessity of PEG and Trach. He agreed PEG and Trach placement here and he stated he will discuss with son and daughter then let us know as soon as possible. Updated facesheet. Quinn Mueller/Father
--- NOTE | 2019-08-09 18:39 | Internal Med Progress Note ---
Subjective Date of Service: Aug 09, 2019 Physician Name Niraj Teixeira Attending Physician Wil Masters MD Current Medications Medications (Trade) Dose Ordered Sig/Sandeep Route PRN Reason Start Time Stop Time Status Last Admin Dose Admin Acetaminophen (Tylenol) 650 mg Q6H PRN GT Mild Pain/Temp > 100.5 07/31/19 12:45 08/11/19 12:43 08/03/19 09:32 Acetylcysteine (Mucomyst) 400 mg Q4HRT HHN 08/01/19 11:00 08/16/19 18:59 08/09/19 15:48 Albuterol/ Ipratropium (Albuterol/ Ipratropium) 3 ml Q4HRT HHN 08/07/19 07:00 08/12/19 06:59 08/09/19 15:48 Chlorhexidine Gluconate (Debora-Hex 2%) 1 applic DAILY@2000 TOPIC 07/31/19 20:00 08/13/19 19:59 08/08/19 20:09 Heparin Sodium (Porcine) (Heparin 5000 units/ml) 5,000 units EVERY 12 HOURS SUBQ 08/04/19 21:00 09/03/19 20:59 08/09/19 08:26 Linezolid 300 ml @ 300 mls/hr Q12HR@0500,1700 IVPB 07/31/19 17:00 08/11/19 23:59 08/09/19 17:23 Meropenem 1 gm/ Sodium Chloride 55 ml @ 110 mls/hr Q8H IVPB 07/31/19 18:00 08/11/19 23:59 08/09/19 17:23 Metoclopramide HCl (Reglan) 5 mg Q6H PRN IVP Nausea & Vomiting 08/04/19 10:00 09/03/19 09:59 Pantoprazole (Protonix) 40 mg DAILY IV 08/01/19 09:00 08/31/19 08:59 08/09/19 08:25 Allergies: Coded Allergies: PENICILLIN G (Verified Allergy, Unknown, 12/02/18) Tolerates cabapenem, cephalosporin PENICILLINS (Unverified Allergy, Unknown, 12/02/18) ROS Limited/Unobtainable: Yes Subjective 49 YO F with pneumonia and respiratory failure. Intubated and sedated. Cover for Int Med-DR Guerrero. ICU Objective Last Vital Signs Date Time Temp Pulse Resp B/P (MAP) Pulse Ox O2 Delivery O2 Flow Rate FiO2 08/09/19 18:00 68 20 116/61 (79) 100 08/09/19 17:00 Mechanical Ventilator 40 08/09/19 16:00 99.0 Laboratory Tests Test 08/09/19 05:09 08/09/19 09:53 White Blood Count 13.7 K/UL (4.8-10.8) H Red Blood Count 4.60 M/UL (4.20-5.40) Hemoglobin 10.8 G/DL (12.0-16.0) L Hematocrit 33.9 % (37.0-47.0) L Mean Corpuscular Volume 74 FL (80-99) L Mean Corpuscular Hemoglobin 23.4 PG (27.0-31.0) L Mean Corpuscular Hemoglobin Concent 31.8 G/DL (32.0-36.0) L Red Cell Distribution Width 21.3 % (11.6-14.8) H Platelet Count 352 K/UL (150-450) Mean Platelet Volume 4.8 FL (6.5-10.1) L Neutrophils (%) (Auto) 79.6 % (45.0-75.0) H Lymphocytes (%) (Auto) 11.9 % (20.0-45.0) L Monocytes (%) (Auto) 4.7 % (1.0-10.0) Eosinophils (%) (Auto) 3.2 % (0.0-3.0) H Basophils (%) (Auto) 0.6 % (0.0-2.0) Prothrombin Time 10.8 SEC (9.30-11.50) Prothromb Time International Ratio 1.0 (0.9-1.1) Activated Partial Thromboplast Time 30 SEC (23-33) Sodium Level 140 MMOL/L (136-145) Potassium Level 3.6 MMOL/L (3.5-5.1) Chloride Level 104 MMOL/L (98-107) Carbon Dioxide Level 30 MMOL/L (21-32) Anion Gap 6 mmol/L (5-15) Blood Urea Nitrogen 15 mg/dL (7-18) Creatinine 0.4 MG/DL (0.55-1.30) L Estimat Glomerular Filtration Rate > 60 mL/min (>60) Glucose Level 134 MG/DL (74-106) H Calcium Level 8.9 MG/DL (8.5-10.1) Total Bilirubin 0.2 MG/DL (0.2-1.0) Aspartate Amino Transf (AST/SGOT) 13 U/L (15-37) L Alanine Aminotransferase (ALT/SGPT) 18 U/L (12-78) Alkaline Phosphatase 61 U/L (46-116) Total Protein 7.7 G/DL (6.4-8.2) Albumin 2.7 G/DL (3.4-5.0) L Globulin 5.0 g/dL Albumin/Globulin Ratio 0.5 (1.0-2.7) L Arterial Blood pH 7.392 (7.350-7.450) Arterial Blood Partial Pressure CO2 49.8 mmHg (35.0-45.0) H Arterial Blood Partial Pressure O2 100.5 mmHg (75.0-100.0) H Arterial Blood HCO3 29.6 mmol/L (22.0-26.0) H Arterial Blood Oxygen Saturation 96.8 % (95-100) Arterial Blood Base Excess 3.9 (-2-2) H Gerard Test Positive Intake and Output 08/08/19 08/09/19 19:00 07:00 Intake Total 1045 ml 985 ml Output Total 755 ml 1000 ml Balance 290 ml -15 ml Intake Free Water 150 ml 90 ml IV Total 355 ml 355 ml Tube Feeding 540 ml 540 ml Output Urine Total 755 ml 1000 ml # Bowel Movements 2 2 Objective General Appearance: WD/WN, moderate distress EENT: PERRL/EOMI, normal ENT inspection Neck: non-tender, normal alignment, supple Cardiovascular: normal peripheral pulses, normal rate, regular rhythm, no gallop/murmur, no JVD Respiratory/Chest: Mech Vent; crackles/rales, rhonchi - bilaterally, expiratory wheezing Abdomen: normal bowel sounds, non tender, soft, no organomegaly, no mass Skin: normal pigmentation, warm/dry Assessment/Plan Problem List: (1) Respiratory failure with hypoxia Assessment & Plan: Mechanical vent per pulmonary=Dr Bonilla (2) Pneumonia of both lower lobes Assessment & Plan: See ID note. Continue meropenem and zyvox (3) UTI (urinary tract infection) Assessment & Plan: Pseudamonas, ESBL E. Coli, and vanco resistant enterococcus. See ID=Dr Sanabria. Continue meropenem, linezolid and micafugin (4) Sepsis (5) Paraplegia (6) Spina bifida Niraj Teixeira MD Aug 09, 2019 18:39
--- NOTE | 2019-08-09 19:17 | NUR ---
HAND-OFF: Report given to [facility]. Endorsed plan of care.
--- NOTE | 2019-08-09 19:30 | NUR ---
NURSE NOTES: Receved pt awake , followed simple command, lower extremities unable to move but with sensation per family. orally intubated on ac mode. Pt drooling a lot of salivafrom the mouth and its being suctioned. SR on the monitor , Bp stable afebrile, Tolerated OGT fdg with residuals 4-6ml HOB kept elevated. On aspiration precaution. Pt with pressure sores sacral area. pls see pictures , covered with optifoam drsg. On p 200 mattress. turned q 2 hrs PRN with good skin care done. Will continue to monitor.
[2019-08-09] MEDS: Dyna-Hex 2% Top Sol 2oz TOPIC SCH (20:02)
--- NOTE | 2019-08-09 21:30 | NUR ---
NURSE NOTES: Turned q 2hrs prn with good skin care done.
--- NOTE | 2019-08-09 23:00 | NUR ---
NURSE NOTES: Suctioned tk mucoid secretions from mouth. Oral care done.
--- NOTE | 2019-08-09 23:40 | NUR ---
NURSE NOTES: Family at bedside , updated with pts condition.
[2019-08-10] VITALS (24 sets, daily range): BP systolic 107–146; BP diastolic 51–97
[2019-08-10] MEDS: Meropenem 1 GM in NS 55 ML IVPB SCH ×3 (02:52→17:17)
[2019-08-10] MEDS: Albuterol/Ipratropium 3ml neb HHN SCH ×6 (03:05→23:16)
[2019-08-10] MEDS: Acetylcysteine 20% Soln 4ml HHN SCH ×6 (03:05→23:16)
--- NOTE | 2019-08-10 04:00 | NUR ---
NURSE NOTES: Complete bath with bed changed done,
--- NOTE | 2019-08-10 05:00 | NUR ---
NURSE NOTES: Pt had another stool, cleaned up and sacral drsg was changed.
--- NOTE | 2019-08-10 06:00 | NUR ---
NURSE NOTES: Tolerated OGt fdg. HOB kept elevated. On aspirastion precaution.
--- NOTE | 2019-08-10 07:05 | NUR ---
NURSE NOTES: RECEIVED PT, A/OX3, NODS YES OR NO FOR SIMPLE QUESTIONS. ORALLY INTUBATED ETT 7.5/23CM AT LIP LINE, AC 16/ TV400/FIO2 40%/P5, SPO2 100%. SR ON DIESEL TRACTOR OPERATOR. OGT RUNNING VITAL AF 1.2@45ML/HR, NO RESIDUAL, HOB 35 DEGREES. ABD NON-DISTENDED. JASON PICC CONNECTED TO TKO. SUPRAPUBIC CATHETER INTACT AND DRAINING TO GRAVITY. BED LOCKED, ALARMED AND IN LOWEST POSITION. CALL LIGHT WITHIN REACH. DENIES ANY DISTRESS OR PAIN AT THIS TIME. WILL CONTINUE PLAN OF CARE.
--- NOTE | 2019-08-10 07:15 | NUR ---
HAND-OFF: Report given to Vanda Yung RN.
--- NOTE | 2019-08-10 07:25 | NUR ---
RESPIRATORY NOTE: Patient received mechanically ventilated on PB 840 with current ordered vent settings. Patient is orally intubated with ETT size 7.5 with 23cm at the lip line that is secured with a commercial holster. Vent alarms are functional and audible. There is an ambu bag and a spare trach available at the bedside. The vent is connected to a red outlet. Will continue to monitor.
--- NOTE | 2019-08-10 08:10 | NUR ---
NURSE NOTES: PATIENT IS ON CPAP WITH PS 12, TOLERATING WELL. NO SIGNS OF RESP DISTRESS. SPO2 95-100%, RR 20. CLOSE MONITORING CONTINUED.
[2019-08-10] MEDS ORDERED: Etomidate 40mg/20ml Inj IV ONE (08:14)
[2019-08-10] MEDS: Pantoprazole Inj IV SCH (08:42)
[2019-08-10] MEDS: Heparin 5000 units/ml inj SUBQ SCH ×2 (08:44→21:18)
[2019-08-10 10:25] LABS: BASOPHILS % (AUTO) 0.6 % (0.0-2.0); HEMATOCRIT 35.8 % (37.0-47.0); HEMOGLOBIN 11.3 G/DL (12.0-16.0); LYMPHOCYTES % (AUTO) 13.4 % (20.0-45.0); MEAN CORPUSCULAR VOLUME 75 FL (80-99); MONOCYTES % (AUTO) 3.5 % (1.0-10.0); NEUTROPHILS % (AUTO) 79.5 % (45.0-75.0); PLATELET COUNT 362 K/UL (150-450); RED BLOOD COUNT 4.79 M/UL (4.20-5.40); WHITE BLOOD COUNT 14.5 K/UL (4.8-10.8)
[2019-08-10 10:47] LABS: ALANINE AMINOTRANSFERASE 21 U/L (12-78); ALBUMIN 2.9 G/DL (3.4-5.0); ALBUMIN/GLOBULIN RATIO 0.5 (1.0-2.7); ALKALINE PHOSPHATASE 74 U/L (46-116); ANION GAP 7 mmol/L (5-15); ASPARTATE AMINO TRANSFERASE 17 U/L (15-37); BILIRUBIN,TOTAL 0.2 MG/DL (0.2-1.0); BLOOD UREA NITROGEN 16 mg/dL (7-18); CALCIUM 8.7 MG/DL (8.5-10.1); CARBON DIOXIDE 30 MMOL/L (21-32); CHLORIDE 101 MMOL/L (98-107); CREATININE 0.3 MG/DL (0.55-1.30); SODIUM 138 MMOL/L (136-145)
--- NOTE | 2019-08-10 11:20 | NUR ---
NURSE NOTES: Turned and repositioned. Oral care done. Tolerating weaning well on CPAP/PS 12.
--- NOTE | 2019-08-10 13:03 | Pulmonolgy Critical Care Note ---
Critical Care - Asmt/Plan Assessment/Plan: (1) Pneumonia of both lower lobes Assessment & Plan: VDRF, intubated 07/12/19, S/P FOB 07/12/19; Reintubated (2) Catheter-associated urinary tract infection Assessment & Plan: PsA and proteus (3) Respiratory failure with hypoxia Assessment & Plan: Acute on chronic hypercapnic and hypoxemic RF 2/2 PNA VDRF as able Duplex neg, minimally elevated d-dimer, unlikely VTE and already on a NOAC (4) HCAP (healthcare-associated pneumonia) (5) Paraplegia (6) Sepsis (7) Suprapubic catheter (8) Restrictive lung disease due to kyphoscoliosis (9) Decubitus skin ulcer (10) Spina bifida (11) Anemia, acute Plan: * cont mechanical ventilatory support, wean as tolerated * PS trials but has not been responding * Recommended the patient undergo tracheostomy placement but they continue to want transfer to [facility] * Monitor ABG * Abx per ID, * Good pulmonary hygiene: duonebs and mucomyst q4 * Replete electrolytes as neded * resume eliquis * Unclear if will be able to transfer to [facility] as no bed available there Respiratory: CXR, weaning trial Cardiac: continue to monitor HR/BP Renal: F/U I&O Infectious Disease: continue antibiotics Gastrointestinal: continue feedings/current rate Hematologic: monitor H/H Neurologic: keep patient comfortable Time Spent (Minutes): 40 - cc Critical Care - Objective Last 24 Hour Vital Signs Date Time Temp Pulse Resp B/P (MAP) Pulse Ox O2 Delivery O2 Flow Rate FiO2 08/10/19 12:30 59 17 40 08/10/19 11:00 66 20 119/54 (75) 98 08/10/19 10:45 79 24 40 08/10/19 10:00 74 21 115/61 (79) 87 08/10/19 09:00 71 19 118/56 (76) 97 08/10/19 08:37 97 08/10/19 08:36 66 18 40 08/10/19 08:00 Mechanical Ventilator Mechanical Ventilator 08/10/19 08:00 65 16 122/58 (79) 99 08/10/19 08:00 75 08/10/19 08:00 40 08/10/19 07:20 66 17 100 Mechanical Ventilator 40 68 16 40 08/10/19 07:00 97.7 72 20 114/72 (86) 100 08/10/19 06:30 79 18 08/10/19 06:00 70 20 132/60 (84) 100 08/10/19 05:04 67 18 40 08/10/19 05:00 64 19 120/94 (103) 100 08/10/19 04:00 98.8 69 19 124/51 (75) 100 08/10/19 04:00 40 08/10/19 04:00 Mechanical Ventilator Mechanical Ventilator 08/10/19 04:00 70 08/10/19 03:04 68 18 100 Mechanical Ventilator 40 74 19 40 08/10/19 03:00 71 19 119/66 (83) 99 08/10/19 02:00 78 21 118/79 (92) 94 08/10/19 01:15 69 19 40 08/10/19 01:00 70 18 125/60 (81) 98 08/10/19 00:00 99.0 81 22 123/73 (90) 95 08/10/19 00:00 40 08/10/19 00:00 60 08/10/19 00:00 Mechanical Ventilator Mechanical Ventilator 08/09/19 23:00 73 13 105/70 (82) 97 08/09/19 22:57 75 18 100 Mechanical Ventilator 40 71 19 40 08/09/19 22:00 74 20 127/54 (78) 100 08/09/19 21:10 64 21 40 08/09/19 21:08 77 22 115/62 (79) 70 08/09/19 21:00 73 18 77/46 (56) 96 08/09/19 20:04 76 23 124/75 (91) 97 08/09/19 20:00 73 08/09/19 20:00 40 08/09/19 20:00 99.4 72 22 104/65 (78) 99 08/09/19 20:00 Mechanical Ventilator Mechanical Ventilator 08/09/19 19:23 62 18 100 Mechanical Ventilator 40 64 19 40 08/09/19 19:00 64 20 108/60 (76) 100 08/09/19 18:00 68 20 116/61 (79) 100 08/09/19 17:00 63 20 118/45 (69) 98 08/09/19 17:00 79 22 Mechanical Ventilator 40 08/09/19 16:00 40 08/09/19 16:00 99.0 70 19 119/91 (100) 100 08/09/19 16:00 60 08/09/19 16:00 Mechanical Ventilator Mechanical Ventilator 08/09/19 15:48 61 19 100 Mechanical Ventilator 40 66 21 40 08/09/19 15:00 67 18 100/58 (72) 93 08/09/19 14:04 71 16 93/51 (65) 100 08/09/19 14:00 73 21 72/52 (59) 99 08/09/19 13:09 71 23 40 08/09/19 13:00 61 16 96/34 (54) 100 Status: awake Condition: other - unchanged Lungs: rales Heart: HR/BP stable Abdomen: soft, non-tender Extremities: edema Accucheck: 114 Critical Care - Subjective ROS Limited/Unobtainable: Yes Interval Events: Cont trial of PS but apparently desaturates and placed back on full vent. Secretions improved. FI02: 40 Vent Support Breath Rate: 16 Vent Support Mode: AC Vent Tidal Volume: 400 Sputum Amount: Small PEEP: 5.0 PIP: 25 Tube Feeding Amount: 45 I&O: Intake and Output 08/09/19 08/10/19 19:00 07:00 Intake Total 965 ml 630 ml Output Total 510 ml 672 ml Balance 455 ml -42 ml Intake Free Water 150 ml 90 ml IV Total 410 ml Tube Feeding 405 ml 540 ml Output Urine Total 510 ml 670 ml Stool Total 2 ml # Bowel Movements 2 ET-Tube: 7.5 ET Position: 23 Walker Bonilla MD Aug 10, 2019 13:03
[2019-08-10] MEDS ORDERED: D5NS 1000ml IV ONE (13:46)
[2019-08-10] MEDS ORDERED: Tubing IV Secondary IV ONE (13:46)
[2019-08-10] MEDS ORDERED: NS 275ml ONE (13:46)
--- NOTE | 2019-08-10 13:54 | NUR ---
NURSE NOTES: Per Dr. Bonilla, titrate PS as tolerated while on CPAP during weaning. Turned and repositioned. Afebrile. Reinforced breathing techniques during weaning. Will closely monitor.
--- NOTE | 2019-08-10 15:09 | NUR ---
NURSE NOTES: Tolerating well on CPAP/PS 8. Will draw ABG in an hour per Dr. Bonilla.
--- NOTE | 2019-08-10 15:22 | Internal Med Progress Note ---
Subjective Date of Service: Aug 10, 2019 Physician Name Niraj Teixeira Attending Physician Wil Masters MD Current Medications Medications (Trade) Dose Ordered Sig/Sandeep Route PRN Reason Start Time Stop Time Status Last Admin Dose Admin Acetaminophen (Tylenol) 650 mg Q6H PRN GT Mild Pain/Temp > 100.5 07/31/19 12:45 08/11/19 12:43 08/03/19 09:32 Acetylcysteine (Mucomyst) 400 mg Q4HRT HHN 08/01/19 11:00 08/16/19 18:59 08/10/19 15:08 Albuterol/ Ipratropium (Albuterol/ Ipratropium) 3 ml Q4HRT HHN 08/07/19 07:00 08/12/19 06:59 08/10/19 15:08 Chlorhexidine Gluconate (Debora-Hex 2%) 1 applic DAILY@2000 TOPIC 07/31/19 20:00 08/13/19 19:59 08/09/19 20:02 Heparin Sodium (Porcine) (Heparin 5000 units/ml) 5,000 units EVERY 12 HOURS SUBQ 08/04/19 21:00 09/03/19 20:59 08/10/19 08:44 Linezolid 300 ml @ 300 mls/hr Q12HR@0500,1700 IVPB 07/31/19 17:00 08/11/19 23:59 08/10/19 04:57 Meropenem 1 gm/ Sodium Chloride 55 ml @ 110 mls/hr Q8H IVPB 07/31/19 18:00 08/11/19 23:59 08/10/19 10:21 Metoclopramide HCl (Reglan) 5 mg Q6H PRN IVP Nausea & Vomiting 08/04/19 10:00 09/03/19 09:59 Pantoprazole (Protonix) 40 mg DAILY IV 08/01/19 09:00 08/31/19 08:59 08/10/19 08:42 Allergies: Coded Allergies: PENICILLIN G (Verified Allergy, Unknown, 12/02/18) Tolerates cabapenem, cephalosporin PENICILLINS (Unverified Allergy, Unknown, 12/02/18) ROS Limited/Unobtainable: Yes Subjective 49 YO F with pneumonia and respiratory failure. Intubated and sedated. Cover for Int Med-DR Guerrero. ICU Objective Last Vital Signs Date Time Temp Pulse Resp B/P (MAP) Pulse Ox O2 Delivery O2 Flow Rate FiO2 08/10/19 15:08 73 23 40 08/10/19 13:00 140/97 (111) 99 08/10/19 12:00 Mechanical Ventilator Mechanical Ventilator 08/10/19 12:00 98.1 Laboratory Tests Test 08/10/19 09:20 White Blood Count 14.5 K/UL (4.8-10.8) H Red Blood Count 4.79 M/UL (4.20-5.40) Hemoglobin 11.3 G/DL (12.0-16.0) L Hematocrit 35.8 % (37.0-47.0) L Mean Corpuscular Volume 75 FL (80-99) L Mean Corpuscular Hemoglobin 23.7 PG (27.0-31.0) L Mean Corpuscular Hemoglobin Concent 31.7 G/DL (32.0-36.0) L Red Cell Distribution Width 22.0 % (11.6-14.8) H Platelet Count 362 K/UL (150-450) Mean Platelet Volume 4.9 FL (6.5-10.1) L Neutrophils (%) (Auto) 79.5 % (45.0-75.0) H Lymphocytes (%) (Auto) 13.4 % (20.0-45.0) L Monocytes (%) (Auto) 3.5 % (1.0-10.0) Eosinophils (%) (Auto) 3.0 % (0.0-3.0) Basophils (%) (Auto) 0.6 % (0.0-2.0) Sodium Level 138 MMOL/L (136-145) Potassium Level 4.0 MMOL/L (3.5-5.1) Chloride Level 101 MMOL/L (98-107) Carbon Dioxide Level 30 MMOL/L (21-32) Anion Gap 7 mmol/L (5-15) Blood Urea Nitrogen 16 mg/dL (7-18) Creatinine 0.3 MG/DL (0.55-1.30) L Estimat Glomerular Filtration Rate > 60 mL/min (>60) Glucose Level 116 MG/DL (74-106) H Calcium Level 8.7 MG/DL (8.5-10.1) Total Bilirubin 0.2 MG/DL (0.2-1.0) Aspartate Amino Transf (AST/SGOT) 17 U/L (15-37) Alanine Aminotransferase (ALT/SGPT) 21 U/L (12-78) Alkaline Phosphatase 74 U/L (46-116) Total Protein 8.2 G/DL (6.4-8.2) Albumin 2.9 G/DL (3.4-5.0) L Globulin 5.3 g/dL Albumin/Globulin Ratio 0.5 (1.0-2.7) L Intake and Output 08/09/19 08/10/19 19:00 07:00 Intake Total 965 ml 630 ml Output Total 510 ml 672 ml Balance 455 ml -42 ml Intake Free Water 150 ml 90 ml IV Total 410 ml Tube Feeding 405 ml 540 ml Output Urine Total 510 ml 670 ml Stool Total 2 ml # Bowel Movements 2 Objective General Appearance: WD/WN, moderate distress EENT: PERRL/EOMI, normal ENT inspection Neck: non-tender, normal alignment, supple Cardiovascular: normal peripheral pulses, normal rate, regular rhythm, no gallop/murmur, no JVD Respiratory/Chest: Mech Vent; crackles/rales, rhonchi - bilaterally, expiratory wheezing Abdomen: normal bowel sounds, non tender, soft, no organomegaly, no mass Skin: normal pigmentation, warm/dry Assessment/Plan Problem List: (1) Respiratory failure with hypoxia Assessment & Plan: Mechanical vent per pulmonary=Dr Bonilla (2) Pneumonia of both lower lobes Assessment & Plan: See ID note. Continue meropenem and zyvox (3) UTI (urinary tract infection) Assessment & Plan: Pseudamonas, ESBL E. Coli, and vanco resistant enterococcus. See ID=Dr Sanabria. Continue meropenem, linezolid and micafugin (4) Sepsis (5) Paraplegia (6) Spina bifida Niraj Teixeira MD Aug 10, 2019 15:22
--- NOTE | 2019-08-10 17:00 | NUR ---
NURSE NOTES: Turned and repositioned. placed patient back on AC mode as patient reports feeling tired. ABG drawn and left message for Dr. Bonilla with results. Awaiting for reply. x1 yellow soft BM. Dressings changed on sacral and suprapubic catheter.
--- NOTE | 2019-08-10 17:12 | NUR ---
NURSE NOTES: Per Dr. Bonilla, place patient tomorrow AM for weaning on CPAP/PS 8 and draw ABG after 2 hours, keep patient on CPAP as tolerated.
--- NOTE | 2019-08-10 19:07 | NUR ---
NURSE NOTES: Received pt awake and alert Orally intubated on ac mode,Sr-ST low 100s on the monitor. Bp stable afebrile, pt keep on holding ETT tubings and keep taking off , instructed not to pull out ETT and other therapeutic devices. pt compliant at times.needs to be reminded all the time, Pt tolerated OGT fdg with 4ml residuals only. HOB kept elevated on aspiration precaution. Pt has pressure sore sacral area covered with optifoam. On p200 mattress. Turned q 2hrs prn with good skin care done. suprapubic cath to gravity with moderate amt of yellowish urine, monitor I and O. Monitor lytes. Will continue to monitor.
--- NOTE | 2019-08-10 19:07 | NUR ---
HAND-OFF: Report given to EMMA Mesa.
--- NOTE | 2019-08-10 19:23 | Infectious Diseases Prog Note ---
Assessment/Plan Problems: (1) Pneumonia of both lower lobes Assessment & Plan: with B/L infiltrates worse on the right with hypoxemia , suspect recurrent aspiration , continue meropenem and zyvox coverage for two weeks , repeated sputum culture on 07/31 and 08/01 are negative for any pathogens. aspiration precaution, monitor CXR , may need tube feeding and tracheostomy in the future if continue to fail weaning trials and unable to protect her airway , D/W family . EOT 08/11/19 (2) Sepsis Assessment & Plan: with streptococcus alpha hemolytic , resolved , on zyvox for pneumonia coverage too , repeated blood culture is negative so far on 07/29 which confirm clearance , may need to remove the central line and put a new one if repeated culture in the future turns positive again , will treat with antibiotics for 2 weeks . EOT 08/11/19 (3) Decubitus skin ulcer Assessment & Plan: of the sacrum, continue off loading and local wound care as per hospital protocol (4) Respiratory failure with hypoxia Assessment & Plan: got worse again , now reintubated again and on mechanical ventilation , monitor ABG and CXR as per pulmonary , aspiration precaution and keep HOB > 30 DEGREE (5) At risk for aspiration pneumonia Assessment & Plan: aspiration precaution, may benefit from tube feeding , since weak oral phase (6) Anemia Assessment & Plan: recurrent , rule out GI source VS alveolar hemorrhage, close monitor of H/H, and transfusion as needed . GI work up (7) Catheter-associated urinary tract infection Assessment & Plan: now with yeast , suspect catheter colonization, S/P suprapubic catheter change , no need for antifungal treatment at this point (8) Leukocytosis Assessment & Plan: suspect dehydration related, recommend hydration since hemoconcentrated, already on wide spectrum antibiotics Assessment/Plan D/W consultants Subjective Constitutional: Reports: no symptoms HEENT: Reports: no symptoms Respiratory: Reports: no symptoms Breasts: Reports: no symptoms Cardiovascular: Reports: no symptoms Gastrointestinal/Abdominal: Reports: no symptoms Genitourinary: Reports: no symptoms Neurologic: Reports: no symptoms Psychiatric: Reports: no symptoms Skin: Reports: no symptoms Endocrine: Reports: no symptoms Hematologic: Reports: no symptoms Musculoskeletal: Reports: no symptoms Allergies: Coded Allergies: PENICILLIN G (Verified Allergy, Unknown, 12/02/18) Tolerates cabapenem, cephalosporin PENICILLINS (Unverified Allergy, Unknown, 12/02/18) Subjective she was still intubated , on mechanical ventilation due to respiratory distress in ICU , has no significant secretions from her ET tube as per the nurse , fully awake and responsive , still congested with mild wheezing , no fever today , no chills , has TWO bowel movements since last night loose Objective Vital Signs Last 24 Hour Vital Signs Date Time Temp Pulse Resp B/P (MAP) Pulse Ox O2 Delivery O2 Flow Rate FiO2 08/10/19 19:13 98 24 100 Mechanical Ventilator 30 101 23 08/10/19 19:00 109 22 146/81 (102) 95 08/10/19 18:00 79 17 120/61 (80) 93 08/10/19 17:00 72 16 108/58 (75) 98 08/10/19 16:37 86 20 30 08/10/19 16:00 40 08/10/19 16:00 Mechanical Ventilator Mechanical Ventilator 08/10/19 16:00 72 08/10/19 16:00 98.6 80 15 107/57 (74) 100 08/10/19 15:08 73 23 100 Mechanical Ventilator 40 77 24 08/10/19 15:00 75 17 128/85 (99) 100 08/10/19 14:00 80 17 118/76 (90) 100 08/10/19 13:00 81 21 140/97 (111) 99 08/10/19 12:30 59 17 40 08/10/19 12:00 Mechanical Ventilator Mechanical Ventilator 08/10/19 12:00 98.1 61 16 121/61 (81) 99 08/10/19 12:00 62 08/10/19 12:00 40 08/10/19 11:00 66 20 119/54 (75) 98 08/10/19 10:45 79 24 100 Mechanical Ventilator 40 82 22 08/10/19 10:00 74 21 115/61 (79) 87 08/10/19 09:00 71 19 118/56 (76) 97 08/10/19 08:37 97 08/10/19 08:36 66 18 40 08/10/19 08:00 Mechanical Ventilator Mechanical Ventilator 08/10/19 08:00 65 16 122/58 (79) 99 08/10/19 08:00 75 08/10/19 08:00 40 08/10/19 07:20 66 17 100 Mechanical Ventilator 40 68 16 40 08/10/19 07:00 97.7 72 20 114/72 (86) 100 08/10/19 06:30 79 18 08/10/19 06:00 70 20 132/60 (84) 100 08/10/19 05:04 67 18 40 08/10/19 05:00 64 19 120/94 (103) 100 08/10/19 04:00 98.8 69 19 124/51 (75) 100 08/10/19 04:00 40 08/10/19 04:00 Mechanical Ventilator Mechanical Ventilator 08/10/19 04:00 70 08/10/19 03:04 68 18 100 Mechanical Ventilator 40 74 19 40 08/10/19 03:00 71 19 119/66 (83) 99 08/10/19 02:00 78 21 118/79 (92) 94 08/10/19 01:15 69 19 40 08/10/19 01:00 70 18 125/60 (81) 98 08/10/19 00:00 99.0 81 22 123/73 (90) 95 08/10/19 00:00 40 08/10/19 00:00 60 08/10/19 00:00 Mechanical Ventilator Mechanical Ventilator 08/09/19 23:00 73 13 105/70 (82) 97 08/09/19 22:57 75 18 100 Mechanical Ventilator 40 71 19 40 08/09/19 22:00 74 20 127/54 (78) 100 08/09/19 21:10 64 21 40 08/09/19 21:08 77 22 115/62 (79) 70 08/09/19 21:00 73 18 77/46 (56) 96 08/09/19 20:04 76 23 124/75 (91) 97 08/09/19 20:00 73 08/09/19 20:00 40 08/09/19 20:00 99.4 72 22 104/65 (78) 99 08/09/19 20:00 Mechanical Ventilator Mechanical Ventilator 08/09/19 19:23 62 18 100 Mechanical Ventilator 40 64 19 40 Height (Feet): 4 Height (Inches): 10.00 Weight (Pounds): 147 General Appearance: WD/WN, no acute distress HEENT: normocephalic, atraumatic, anicteric, mucous membranes moist, PERRL Respiratory/Chest: chest wall non-tender, normal breath sounds, no respiratory distress, no accessory muscle use, decreased breath sounds Cardiovascular: normal peripheral pulses, normal rate, regular rhythm, no gallop/murmur, no JVD Abdomen: normal bowel sounds, soft, non tender, no organomegaly, non distended , no mass, no scars Extremities: no cyanosis, no clubbing Skin: no rash, no lesions Neurologic/Psychiatric: alert, responsive Lymphatic: no neck adenopathy, no groin adenopathy Musculoskeletal: normal muscle bulk, no effusion Laboratory Tests Test 08/10/19 09:20 08/10/19 15:25 White Blood Count 14.5 K/UL (4.8-10.8) H Red Blood Count 4.79 M/UL (4.20-5.40) Hemoglobin 11.3 G/DL (12.0-16.0) L Hematocrit 35.8 % (37.0-47.0) L Mean Corpuscular Volume 75 FL (80-99) L Mean Corpuscular Hemoglobin 23.7 PG (27.0-31.0) L Mean Corpuscular Hemoglobin Concent 31.7 G/DL (32.0-36.0) L Red Cell Distribution Width 22.0 % (11.6-14.8) H Platelet Count 362 K/UL (150-450) Mean Platelet Volume 4.9 FL (6.5-10.1) L Neutrophils (%) (Auto) 79.5 % (45.0-75.0) H Lymphocytes (%) (Auto) 13.4 % (20.0-45.0) L Monocytes (%) (Auto) 3.5 % (1.0-10.0) Eosinophils (%) (Auto) 3.0 % (0.0-3.0) Basophils (%) (Auto) 0.6 % (0.0-2.0) Sodium Level 138 MMOL/L (136-145) Potassium Level 4.0 MMOL/L (3.5-5.1) Chloride Level 101 MMOL/L (98-107) Carbon Dioxide Level 30 MMOL/L (21-32) Anion Gap 7 mmol/L (5-15) Blood Urea Nitrogen 16 mg/dL (7-18) Creatinine 0.3 MG/DL (0.55-1.30) L Estimat Glomerular Filtration Rate > 60 mL/min (>60) Glucose Level 116 MG/DL (74-106) H Calcium Level 8.7 MG/DL (8.5-10.1) Total Bilirubin 0.2 MG/DL (0.2-1.0) Aspartate Amino Transf (AST/SGOT) 17 U/L (15-37) Alanine Aminotransferase (ALT/SGPT) 21 U/L (12-78) Alkaline Phosphatase 74 U/L (46-116) Total Protein 8.2 G/DL (6.4-8.2) Albumin 2.9 G/DL (3.4-5.0) L Globulin 5.3 g/dL Albumin/Globulin Ratio 0.5 (1.0-2.7) L Arterial Blood pH 7.408 (7.350-7.450) Arterial Blood Partial Pressure CO2 46.3 mmHg (35.0-45.0) H Arterial Blood Partial Pressure O2 73.9 mmHg (75.0-100.0) L Arterial Blood HCO3 28.6 mmol/L (22.0-26.0) H Arterial Blood Oxygen Saturation 93.2 % (95-100) L Arterial Blood Base Excess 3.3 (-2-2) H Gerard Test Positive Current Medications Medications (Trade) Dose Ordered Sig/Sandeep Route PRN Reason Start Time Stop Time Status Last Admin Dose Admin Acetaminophen (Tylenol) 650 mg Q6H PRN GT Mild Pain/Temp > 100.5 07/31/19 12:45 08/11/19 12:43 08/03/19 09:32 Acetylcysteine (Mucomyst) 400 mg Q4HRT [facility] 08/01/19 11:00 08/16/19 18:59 08/10/19 19:13 Albuterol/ Ipratropium (Albuterol/ Ipratropium) 3 ml Q4HRT N 08/07/19 07:00 08/12/19 06:59 08/10/19 19:13 Chlorhexidine Gluconate (Debora-Hex 2%) 1 applic DAILY@1999 TOPIC 07/31/19 20:00 08/13/19 19:59 08/09/19 20:02 Heparin Sodium (Porcine) (Heparin 5000 units/ml) 5,000 units EVERY 12 HOURS SUBQ 08/04/19 21:00 09/03/19 20:59 08/10/19 08:44 Linezolid 300 ml @ 300 mls/hr Q12HR@0500,1700 IVPB 07/31/19 17:00 08/11/19 23:59 08/10/19 17:16 Meropenem 1 gm/ Sodium Chloride 55 ml @ 110 mls/hr Q8H IVPB 07/31/19 18:00 08/11/19 23:59 08/10/19 17:17 Metoclopramide HCl (Reglan) 5 mg Q6H PRN IVP Nausea & Vomiting 08/04/19 10:00 09/03/19 09:59 Pantoprazole (Protonix) 40 mg DAILY IV 08/01/19 09:00 08/31/19 08:59 08/10/19 08:42 Gigi Sanabria M.D. Aug 10, 2019 19:23
[2019-08-10] MEDS: Dyna-Hex 2% Top Sol 2oz TOPIC SCH (20:15)
[2019-08-11] VITALS (24 sets, daily range): BP systolic 41–125; BP diastolic 14–86
[2019-08-11] MEDS: Meropenem 1 GM in NS 55 ML IVPB SCH ×2 (01:34→09:31)
[2019-08-11] MEDS: Albuterol/Ipratropium 3ml neb HHN SCH ×6 (02:59→23:04)
[2019-08-11] MEDS: Acetylcysteine 20% Soln 4ml HHN SCH ×6 (02:59→23:04)
--- NOTE | 2019-08-11 04:00 | NUR ---
NURSE NOTES: Complete bed bath with bed change done.
[2019-08-11 05:57] LABS: BASOPHILS % (AUTO) 6.8 % (0.0-2.0); EOSINOPHILS % (AUTO) 7.2 % (0.0-3.0); HEMOGLOBIN 9.6 G/DL (12.0-16.0); LYMPHOCYTES % (AUTO) 13.9 % (20.0-45.0); MEAN CORPUSCULAR VOLUME 74 FL (80-99); MONOCYTES % (AUTO) 6.8 % (1.0-10.0); NEUTROPHILS % (AUTO) 65.2 % (45.0-75.0); PLATELET COUNT 336 K/UL (150-450); RED BLOOD COUNT 4.17 M/UL (4.20-5.40); RED CELL DISTRIBUTION WIDTH 21.8 % (11.6-14.8); WHITE BLOOD COUNT 8.3 K/UL (4.8-10.8)
[2019-08-11 06:16] LABS: ANION GAP 8 mmol/L (5-15); BLOOD UREA NITROGEN 18 mg/dL (7-18); CALCIUM 8.9 MG/DL (8.5-10.1); CARBON DIOXIDE 27 MMOL/L (21-32); CHLORIDE 102 MMOL/L (98-107); CREATININE 0.3 MG/DL (0.55-1.30); POTASSIUM 4.2 MMOL/L (3.5-5.1); SODIUM 137 MMOL/L (136-145)
--- NOTE | 2019-08-11 07:33 | NUR ---
HAND-OFF: Report given to Tiana Lerner RN.
--- NOTE | 2019-08-11 07:35 | NUR ---
NURSE NOTES: Report received from Kitty Giles RN.Pt resting qietly in bed awake,alert able to follow simple commands,no signs of resp distress,with ETT 7.5 lip line 23,on current ordered vent settings ,tolerating well,no signs of pain or discomfort SR on the monitor,OGT feeding Vital AF 1.2 at 45ml /hr in placed per auscultation,no residual noted,with Supra pubic cath draining yellow urine,,skin warm and dry, IV site to JASON PICC line intact ,SR up x2 HOB elevated,bed lock in lowest position will continue with plans of care.
--- NOTE | 2019-08-11 08:00 | NUR ---
NURSE NOTES: Weaning process started,RT placed pt on CPAP PS of 8,appears tolerated.no signs of resp distress presented.
[2019-08-11] MEDS: Pantoprazole Inj IV SCH (09:31)
[2019-08-11] MEDS: Heparin 5000 units/ml inj SUBQ SCH ×2 (09:34→20:47)
--- NOTE | 2019-08-11 10:00 | NUR ---
NURSE NOTES: ABG done after 2 hrs on CPAP,called results to DR Bonilla,left message on answering machine.awaiting return of call.
--- NOTE | 2019-08-11 10:54 | General Progress Note ---
Assessment/Plan Problem List: (1) Spina bifida ICD Codes: Q05.9 - Spina bifida, unspecified SNOMED: 93518256 Qualifiers: Qualified Codes: Q05.4 - Unspecified spina bifida with hydrocephalus (2) Respiratory failure with hypoxia ICD Codes: J96.91 - Respiratory failure, unspecified with hypoxia SNOMED: 20811178015328848 Qualifiers: Qualified Codes: J96.21 - Acute and chronic respiratory failure with hypoxia (3) Dysphagia ICD Codes: R13.10 - Dysphagia, unspecified SNOMED: 19020607, 841149063 Status: unchanged Assessment/Plan: NOW INTUBATED IN THE icu needs PEG trying to get hold of family for consent for PEG ppi repeat labs fu H&H NGTF for now s/p unit PRBC this week stool ob neg x1 reglan family wants to transfer the patient to [facility] and refusing PEG here at [facility] Subjective ROS Limited/Unobtainable: No Allergies: Coded Allergies: PENICILLIN G (Verified Allergy, Unknown, 12/02/18) Tolerates cabapenem, cephalosporin PENICILLINS (Unverified Allergy, Unknown, 12/02/18) Objective Last 24 Hour Vital Signs Date Time Temp Pulse Resp B/P (MAP) Pulse Ox O2 Delivery O2 Flow Rate FiO2 08/11/19 09:10 92 25 30 30 08/11/19 08:00 Mechanical Ventilator Mechanical Ventilator 08/11/19 08:00 95 08/11/19 08:00 30 08/11/19 08:00 99.0 93 18 120/61 (80) 93 08/11/19 08:00 91 08/11/19 07:15 88 18 99 Mechanical Ventilator 30 88 18 08/11/19 07:00 91 19 100/72 (81) 98 08/11/19 06:30 90 18 08/11/19 06:00 86 19 111/64 (80) 98 08/11/19 05:18 100 25 30 08/11/19 05:00 98.4 86 17 109/47 (67) 98 08/11/19 04:00 30 08/11/19 04:00 Mechanical Ventilator Mechanical Ventilator 08/11/19 04:00 70 08/11/19 04:00 72 16 114/54 (74) 99 08/11/19 03:00 81 18 118/85 (96) 97 08/11/19 03:00 80 17 99 Mechanical Ventilator 30 81 17 08/11/19 02:00 93 19 116/64 (81) 94 08/11/19 01:05 74 16 30 08/11/19 01:00 92 19 114/65 (81) 96 08/11/19 00:00 98.8 71 16 118/68 (85) 99 08/11/19 00:00 30 08/11/19 00:00 Mechanical Ventilator Mechanical Ventilator 08/11/19 00:00 75 08/10/19 23:17 90 24 100 Mechanical Ventilator 30 91 16 08/10/19 23:00 92 20 124/80 (95) 96 08/10/19 22:00 86 18 116/65 (82) 97 08/10/19 21:30 84 17 30 08/10/19 21:00 86 17 113/71 (85) 95 08/10/19 20:00 89 08/10/19 20:00 30 08/10/19 20:00 98.6 85 15 120/56 (77) 100 08/10/19 20:00 Mechanical Ventilator Mechanical Ventilator 08/10/19 19:13 98 24 100 Mechanical Ventilator 30 101 23 08/10/19 19:00 109 22 146/81 (102) 95 08/10/19 18:00 79 17 120/61 (80) 93 08/10/19 17:00 72 16 108/58 (75) 98 08/10/19 16:37 86 20 30 08/10/19 16:00 40 08/10/19 16:00 Mechanical Ventilator Mechanical Ventilator 08/10/19 16:00 72 08/10/19 16:00 98.6 80 15 107/57 (74) 100 08/10/19 15:08 73 23 100 Mechanical Ventilator 40 77 24 08/10/19 15:00 75 17 128/85 (99) 100 08/10/19 14:00 80 17 118/76 (90) 100 08/10/19 13:00 81 21 140/97 (111) 99 08/10/19 12:30 59 17 40 08/10/19 12:00 Mechanical Ventilator Mechanical Ventilator 08/10/19 12:00 98.1 61 16 121/61 (81) 99 08/10/19 12:00 62 08/10/19 12:00 40 08/10/19 11:00 66 20 119/54 (75) 98 Intake and Output 08/10/19 08/11/19 19:00 07:00 Intake Total 660 ml 630 ml Output Total 550 ml 670 ml Balance 110 ml -40 ml Intake Free Water 120 ml 90 ml Tube Feeding 540 ml 540 ml Output Urine Total 550 ml 670 ml # Bowel Movements 2 3 Laboratory Tests 08/10/19 15:25: Arterial Blood pH 7.408, Arterial Blood Partial Pressure CO2 46.3H, Arterial Blood Partial Pressure O2 73.9L, Arterial Blood HCO3 28.6H, Arterial Blood Oxygen Saturation 93.2L, Arterial Blood Base Excess 3.3H, Gerard Test Positive 08/11/19 05:15: White Blood Count 8.3, Red Blood Count 4.17L, Hemoglobin 9.6L, Hematocrit 31.0L , Mean Corpuscular Volume 74L, Mean Corpuscular Hemoglobin 23.1L, Mean Corpuscular Hemoglobin Concent 31.1L, Red Cell Distribution Width 21.8H, Platelet Count 336, Mean Platelet Volume 4.4L, Neutrophils (%) (Auto) 65.2, Lymphocytes (%) (Auto) 13.9L, Monocytes (%) (Auto) 6.8, Eosinophils (%) (Auto) 7.2H, Basophils (%) (Auto) 6.8H, Sodium Level 137, Potassium Level 4.2, Chloride Level 102, Carbon Dioxide Level 27, Anion Gap 8, Blood Urea Nitrogen 18 , Creatinine 0.3L, Estimat Glomerular Filtration Rate > 60, Glucose Level 178H, Calcium Level 8.9 08/11/19 10:00: Arterial Blood pH 7.445, Arterial Blood Partial Pressure CO2 39.3, Arterial Blood Partial Pressure O2 86.2, Arterial Blood HCO3 26.4H, Arterial Blood Oxygen Saturation 95.8, Arterial Blood Base Excess 2.2H, Gerard Test Positive Height (Feet): 4 Height (Inches): 10.00 Weight (Pounds): 150 General Appearance: lethargic EENT: PERRL/EOMI Neck: supple Cardiovascular: normal rate Respiratory/Chest: decreased breath sounds Abdomen: normal bowel sounds, non tender, soft Extremities: non-tender Tim Davis MD Aug 11, 2019 10:53
--- NOTE | 2019-08-11 11:15 | NUR ---
NURSE NOTES: Pt appears tired,switched back to AC on vent by RT.
--- NOTE | 2019-08-11 11:28 | NUR ---
RD ASSESSMENT & RECOMMENDATIONS SEE CARE ACTIVITY FOR COMPLETE ASSESSMENT DAILY ESTIMATED NEEDS: Needs based on wound, critical care/ 47.6kg abw 25-30 kcals/kg 0586-6263 total kcals 1.25-2 g protein/kg 60-95 g total protein 25-30 mL/kg 0730-6573 total fluid mLs NUTRITION DIAGNOSIS: * Increased kcal/pro needs r/t wound healing as evidenced by h/o spina bifida, adm w/ full thickness wound @ sacrum and resolving pressure injury @ R-ischium. * Swallowing difficulty R/T respiratory status as evidenced by re-intubated, on OGT feeding. CURRENT TF:Vital 1.2 @ 45ml/hr x 24 hrs ENTERAL NUTRITION RECOMMENDATIONS: Vital AF 1.2 @ 45ml/hr x 24 hrs to provide 1080ml, 1296kcal, 81g prot, 875ml free water - Maintain current TF: meets 100% est kcal/prot needs - Without IVF: water flush of 140ml q 6hrs - HOB over 30 degrees. ADDITIONAL RECOMMENDATIONS: 1) Wound care: add GREGG in 4oz H2O BID via NGT Add VIT C 500mg daily 2) Maintain calibrated bed scale wts 3) NISS for BG control on TF 4) Monitor lytes daily, replete as needed. 5) Add Probiotics with continued diarrhea. .
--- NOTE | 2019-08-11 12:00 | NUR ---
NURSE NOTES: Dr Bonilla at bedside,ordered to hold feeding x 4 hrs prior to extubating pt.ordered to extubate pt after 3 hrs on AC and 1 hr on pressure support.starting at 1230.Ordered to place pt on Bipap post extubation and call him.
--- NOTE | 2019-08-11 12:22 | Pulmonolgy Critical Care Note ---
Critical Care - Asmt/Plan Assessment/Plan: (1) Pneumonia of both lower lobes Assessment & Plan: VDRF, intubated 07/12/19, S/P FOB 07/12/19; Reintubated (2) Catheter-associated urinary tract infection Assessment & Plan: PsA and proteus (3) Respiratory failure with hypoxia Assessment & Plan: Acute on chronic hypercapnic and hypoxemic RF 2/2 PNA VDRF as able Duplex neg, minimally elevated d-dimer, unlikely VTE and already on a NOAC (4) HCAP (healthcare-associated pneumonia) (5) Paraplegia (6) Sepsis (7) Suprapubic catheter (8) Restrictive lung disease due to kyphoscoliosis (9) Decubitus skin ulcer (10) Spina bifida (11) Anemia, acute Plan: * cont mechanical ventilatory support, wean as tolerated * Tolerating PS 8, if continues to do well will extubate to BiPAP 16/8 qhs and prn, monitor ABG closely * High risk for recurrent respiratory failure and reintubation and discussed with the patiet's family. They did not wish to proceed with tracheostomy and prefer to try extubation first. * Abx per ID, probably end today. CXR has cleared. * Good pulmonary hygiene: duonebs and mucomyst q4 * Replete electrolytes as neded * Unclear why was on eliquis, did have drop in H/H while on it and has risen off it. No afib, no DVT, no hx of PE that we know. Will cont heparin SQ for now * Unclear if will be able to transfer to [facility] as no bed available there Respiratory: monitor respiratory rate Cardiac: continue to monitor HR/BP Renal: F/U I&O Gastrointestinal: continue feedings/current rate, hold feedings - in anticipation of extubation Hematologic: monitor H/H Time Spent (Minutes): 40 - cc Discussed with: nurses Critical Care - Objective Last 24 Hour Vital Signs Date Time Temp Pulse Resp B/P (MAP) Pulse Ox O2 Delivery O2 Flow Rate FiO2 08/11/19 12:03 Mechanical Ventilator Mechanical Ventilator 08/11/19 12:03 30 08/11/19 11:14 94 20 99 Mechanical Ventilator 30 81 17 08/11/19 11:00 82 21 119/51 (73) 84 08/11/19 10:00 89 24 113/64 (80) 85 1/20/20 10:00 30 08/11/19 09:10 92 25 30 30 08/11/19 09:00 96 22 113/64 (80) 95 08/11/19 08:00 Mechanical Ventilator Mechanical Ventilator 08/11/19 08:00 95 08/11/19 08:00 30 08/11/19 08:00 99.0 93 18 120/61 (80) 93 08/11/19 08:00 91 08/11/19 07:15 88 18 99 Mechanical Ventilator 30 88 18 08/11/19 07:00 91 19 100/72 (81) 98 08/11/19 06:30 90 18 08/11/19 06:00 86 19 111/64 (80) 98 08/11/19 05:18 100 25 30 08/11/19 05:00 98.4 86 17 109/47 (67) 98 08/11/19 04:00 30 08/11/19 04:00 Mechanical Ventilator Mechanical Ventilator 08/11/19 04:00 70 08/11/19 04:00 72 16 114/54 (74) 99 08/11/19 03:00 81 18 118/85 (96) 97 08/11/19 03:00 80 17 99 Mechanical Ventilator 30 81 17 08/11/19 02:00 93 19 116/64 (81) 94 08/11/19 01:05 74 16 30 08/11/19 01:00 92 19 114/65 (81) 96 08/11/19 00:00 98.8 71 16 118/68 (85) 99 08/11/19 00:00 30 08/11/19 00:00 Mechanical Ventilator Mechanical Ventilator 08/11/19 00:00 75 08/10/19 23:17 90 24 100 Mechanical Ventilator 30 91 16 08/10/19 23:00 92 20 124/80 (95) 96 08/10/19 22:00 86 18 116/65 (82) 97 08/10/19 21:30 84 17 30 08/10/19 21:00 86 17 113/71 (85) 95 08/10/19 20:00 89 08/10/19 20:00 30 08/10/19 20:00 98.6 85 15 120/56 (77) 100 08/10/19 20:00 Mechanical Ventilator Mechanical Ventilator 08/10/19 19:13 98 24 100 Mechanical Ventilator 30 101 23 08/10/19 19:00 109 22 146/81 (102) 95 08/10/19 18:00 79 17 120/61 (80) 93 08/10/19 17:00 72 16 108/58 (75) 98 08/10/19 16:37 86 20 30 08/10/19 16:00 40 08/10/19 16:00 Mechanical Ventilator Mechanical Ventilator 08/10/19 16:00 72 08/10/19 16:00 98.6 80 15 107/57 (74) 100 08/10/19 15:08 73 23 100 Mechanical Ventilator 40 77 24 08/10/19 15:00 75 17 128/85 (99) 100 08/10/19 14:00 80 17 118/76 (90) 100 08/10/19 13:00 81 21 140/97 (111) 99 08/10/19 12:30 59 17 40 Status: awake HEENT: atraumatic, normocephalic Neck: full ROM Lungs: clear Heart: HR/BP stable Abdomen: soft, non-tender Extremities: no C/C/E Accucheck: 114 Critical Care - Subjective ROS Limited/Unobtainable: Yes Interval Events: PS 8 for 3 hours yesterday. PS 8 for 2 hours today and switched back to vent as patient stated it was difficult but RT does not feel failed PS 8. CXR significantly improved from prior to intubation. No fevers. WBC down. Condition: improving EKG Rhythm: Sinus Rhythm FI02: 30 Vent Support Breath Rate: 16 Vent Support Mode: AC Vent Tidal Volume: 400 Sputum Amount: Small PEEP: 5.0 PIP: 28 Tube Feeding Amount: 45 I&O: Intake and Output 08/10/19 08/11/19 19:00 07:00 Intake Total 660 ml 630 ml Output Total 550 ml 670 ml Balance 110 ml -40 ml Intake Free Water 120 ml 90 ml Tube Feeding 540 ml 540 ml Output Urine Total 550 ml 670 ml # Bowel Movements 2 3 ET-Tube: 7.5 ET Position: 23 Walker Bonilla MD Aug 11, 2019 12:22
--- NOTE | 2019-08-11 13:41 | Diagnostic Imaging Report ---
Indication: Dyspnea Comparison: 08/05/2019 A single view chest radiograph was obtained. Findings: Mild pulmonary vascular prominence demonstrated without change. Cardiomegaly is stable. Endotracheal tube again noted in good position. NG tube in good position. Right-sided catheter likely a [employer] shunt again demonstrated. IMPRESSION: No change from the prior examination. Mild pulmonary vascular congestion may be present. Correlate clinically
--- NOTE | 2019-08-11 14:36 | Internal Med Progress Note ---
Subjective Date of Service: Aug 11, 2019 Physician Name Niraj Teixeira Attending Physician Wil Masters MD Current Medications Medications (Trade) Dose Ordered Sig/Sandeep Route PRN Reason Start Time Stop Time Status Last Admin Dose Admin Acetylcysteine (Mucomyst) 400 mg Q4HRT N 08/01/19 11:00 08/16/19 18:59 08/11/19 11:14 Albuterol/ Ipratropium (Albuterol/ Ipratropium) 3 ml Q4HRT N 08/07/19 07:00 08/12/19 06:59 08/11/19 11:14 Chlorhexidine Gluconate (Debora-Hex 2%) 1 applic DAILY@1999 TOPIC 07/31/19 20:00 08/13/19 19:59 08/10/19 20:15 Heparin Sodium (Porcine) (Heparin 5000 units/ml) 5,000 units EVERY 12 HOURS SUBQ 08/04/19 21:00 09/03/19 20:59 08/11/19 09:34 Metoclopramide HCl (Reglan) 5 mg Q6H PRN IVP Nausea & Vomiting 08/04/19 10:00 09/03/19 09:59 Pantoprazole (Protonix) 40 mg DAILY IV 08/01/19 09:00 08/31/19 08:59 08/11/19 09:31 Allergies: Coded Allergies: PENICILLIN G (Verified Allergy, Unknown, 12/02/18) Tolerates cabapenem, cephalosporin PENICILLINS (Unverified Allergy, Unknown, 12/02/18) ROS Limited/Unobtainable: Yes Subjective 49 YO F with pneumonia and respiratory failure. Intubated and sedated. Cover for Int Med-DR Masters. ICU Objective Last Vital Signs Date Time Temp Pulse Resp B/P (MAP) Pulse Ox O2 Delivery O2 Flow Rate FiO2 08/11/19 13:05 79 19 112/57 (75) 95 08/11/19 12:03 Mechanical Ventilator Mechanical Ventilator 08/11/19 12:03 30 08/11/19 12:00 98.9 Laboratory Tests Test 08/10/19 15:25 08/11/19 05:15 08/11/19 10:00 Arterial Blood pH 7.408 (7.350-7.450) 7.445 (7.350-7.450) Arterial Blood Partial Pressure CO2 46.3 mmHg (35.0-45.0) H 39.3 mmHg (35.0-45.0) Arterial Blood Partial Pressure O2 73.9 mmHg (75.0-100.0) L 86.2 mmHg (75.0-100.0) Arterial Blood HCO3 28.6 mmol/L (22.0-26.0) H 26.4 mmol/L (22.0-26.0) H Arterial Blood Oxygen Saturation 93.2 % (95-100) L 95.8 % (95-100) Arterial Blood Base Excess 3.3 (-2-2) H 2.2 (-2-2) H Gerard Test Positive Positive White Blood Count 8.3 K/UL (4.8-10.8) Red Blood Count 4.17 M/UL (4.20-5.40) L Hemoglobin 9.6 G/DL (12.0-16.0) L Hematocrit 31.0 % (37.0-47.0) L Mean Corpuscular Volume 74 FL (80-99) L Mean Corpuscular Hemoglobin 23.1 PG (27.0-31.0) L Mean Corpuscular Hemoglobin Concent 31.1 G/DL (32.0-36.0) L Red Cell Distribution Width 21.8 % (11.6-14.8) H Platelet Count 336 K/UL (150-450) Mean Platelet Volume 4.4 FL (6.5-10.1) L Neutrophils (%) (Auto) 65.2 % (45.0-75.0) Lymphocytes (%) (Auto) 13.9 % (20.0-45.0) L Monocytes (%) (Auto) 6.8 % (1.0-10.0) Eosinophils (%) (Auto) 7.2 % (0.0-3.0) H Basophils (%) (Auto) 6.8 % (0.0-2.0) H Sodium Level 137 MMOL/L (136-145) Potassium Level 4.2 MMOL/L (3.5-5.1) Chloride Level 102 MMOL/L (98-107) Carbon Dioxide Level 27 MMOL/L (21-32) Anion Gap 8 mmol/L (5-15) Blood Urea Nitrogen 18 mg/dL (7-18) Creatinine 0.3 MG/DL (0.55-1.30) L Estimat Glomerular Filtration Rate > 60 mL/min (>60) Glucose Level 178 MG/DL (74-106) H Calcium Level 8.9 MG/DL (8.5-10.1) Intake and Output 08/10/19 08/11/19 19:00 07:00 Intake Total 660 ml 630 ml Output Total 550 ml 670 ml Balance 110 ml -40 ml Intake Free Water 120 ml 90 ml Tube Feeding 540 ml 540 ml Output Urine Total 550 ml 670 ml # Bowel Movements 2 3 Objective General Appearance: WD/WN, moderate distress EENT: PERRL/EOMI, normal ENT inspection Neck: non-tender, normal alignment, supple Cardiovascular: normal peripheral pulses, normal rate, regular rhythm, no gallop/murmur, no JVD Respiratory/Chest: Mech Vent; crackles/rales, rhonchi - bilaterally, expiratory wheezing Abdomen: normal bowel sounds, non tender, soft, no organomegaly, no mass Skin: normal pigmentation, warm/dry Assessment/Plan Problem List: (1) Respiratory failure with hypoxia Assessment & Plan: Mechanical vent per pulmonary=Dr Bonilla (2) Pneumonia of both lower lobes Assessment & Plan: See ID note. Continue meropenem and zyvox (3) UTI (urinary tract infection) Assessment & Plan: Pseudamonas, ESBL E. Coli, and vanco resistant enterococcus. See ID=Dr Sanabria. Continue meropenem, linezolid and micafugin (4) Sepsis (5) Paraplegia (6) Spina bifida Niraj Teixeira MD Aug 11, 2019 14:36
--- NOTE | 2019-08-11 15:25 | Infectious Diseases Prog Note ---
Assessment/Plan Problems: (1) Pneumonia of both lower lobes Assessment & Plan: with B/L infiltrates worse on the right with hypoxemia , suspect recurrent aspiration , s/p meropenem and zyvox coverage for another two weeks , repeated sputum culture on 07/31 and 08/01 are negative for any pathogens. aspiration precaution, monitor CXR , may need tube feeding and tracheostomy in the future if continue to fail weaning trials and unable to protect her airway , D/W family . (2) Sepsis Assessment & Plan: with streptococcus alpha hemolytic , resolved , S/P Zyvox FOR TWO WEEKS for pneumonia coverage too , repeated blood culture is negative so far on 07/29 which confirm clearance , may need to remove the central line and put a new one if repeated culture in the future turns positive again. (3) Decubitus skin ulcer Assessment & Plan: of the sacrum, continue off loading and local wound care as per hospital protocol (4) Respiratory failure with hypoxia Assessment & Plan: was reintubated again and on mechanical ventilation , tolerating weaning trials , monitor ABG and CXR as per pulmonary , aspiration precaution and keep HOB > 30 DEGREE (5) At risk for aspiration pneumonia Assessment & Plan: aspiration precaution, may benefit from tube feeding , since weak oral phase (6) Catheter-associated urinary tract infection Assessment & Plan: now with yeast , suspect catheter colonization, S/P suprapubic catheter change , no need for antifungal treatment at this point (7) Leukocytosis Assessment & Plan: suspect dehydration related, recommend hydration since hemoconcentrated, already on wide spectrum antibiotics Assessment/Plan D/W consultants ID will sign off, please call with question Subjective Constitutional: Reports: no symptoms HEENT: Reports: no symptoms Respiratory: Reports: no symptoms Breasts: Reports: no symptoms Cardiovascular: Reports: no symptoms Gastrointestinal/Abdominal: Reports: no symptoms Genitourinary: Reports: no symptoms Neurologic: Reports: no symptoms Psychiatric: Reports: no symptoms Skin: Reports: no symptoms Endocrine: Reports: no symptoms Hematologic: Reports: no symptoms Musculoskeletal: Reports: no symptoms Allergies: Coded Allergies: PENICILLIN G (Verified Allergy, Unknown, 12/02/18) Tolerates cabapenem, cephalosporin PENICILLINS (Unverified Allergy, Unknown, 12/02/18) Subjective she was still intubated , on mechanical ventilation in ICU , tolerating weaning trials well today , has no secretions from her ET tube as per the nurse , fully awake and responsive , no fever today , no chills , has one bowel movements since last night loose. Objective Vital Signs Last 24 Hour Vital Signs Date Time Temp Pulse Resp B/P (MAP) Pulse Ox O2 Delivery O2 Flow Rate FiO2 08/11/19 13:05 79 19 112/57 (75) 95 08/11/19 12:03 Mechanical Ventilator Mechanical Ventilator 08/11/19 12:03 30 08/11/19 12:00 98.9 85 20 105/51 (69) 95 08/11/19 12:00 91 08/11/19 11:14 94 20 99 Mechanical Ventilator 30 81 17 08/11/19 11:00 82 21 119/51 (73) 84 08/11/19 10:00 89 24 113/64 (80) 85 08/11/19 10:00 30 08/11/19 09:10 92 25 30 30 08/11/19 09:00 96 22 113/64 (80) 95 08/11/19 08:00 Mechanical Ventilator Mechanical Ventilator 08/11/19 08:00 95 08/11/19 08:00 30 08/11/19 08:00 99.0 93 18 120/61 (80) 93 08/11/19 08:00 91 08/11/19 07:15 88 18 99 Mechanical Ventilator 30 88 18 08/11/19 07:00 91 19 100/72 (81) 98 08/11/19 06:30 90 18 08/11/19 06:00 86 19 111/64 (80) 98 08/11/19 05:18 100 25 30 08/11/19 05:00 98.4 86 17 109/47 (67) 98 08/11/19 04:00 30 08/11/19 04:00 Mechanical Ventilator Mechanical Ventilator 08/11/19 04:00 70 08/11/19 04:00 72 16 114/54 (74) 99 08/11/19 03:00 81 18 118/85 (96) 97 08/11/19 03:00 80 17 99 Mechanical Ventilator 30 81 17 08/11/19 02:00 93 19 116/64 (81) 94 08/11/19 01:05 74 16 30 08/11/19 01:00 92 19 114/65 (81) 96 08/11/19 00:00 98.8 71 16 118/68 (85) 99 08/11/19 00:00 30 08/11/19 00:00 Mechanical Ventilator Mechanical Ventilator 08/11/19 00:00 75 08/10/19 23:17 90 24 100 Mechanical Ventilator 30 91 16 08/10/19 23:00 92 20 124/80 (95) 96 08/10/19 22:00 86 18 116/65 (82) 97 08/10/19 21:30 84 17 30 08/10/19 21:00 86 17 113/71 (85) 95 08/10/19 20:00 89 08/10/19 20:00 30 08/10/19 20:00 98.6 85 15 120/56 (77) 100 08/10/19 20:00 Mechanical Ventilator Mechanical Ventilator 08/10/19 19:13 98 24 100 Mechanical Ventilator 30 101 23 08/10/19 19:00 109 22 146/81 (102) 95 08/10/19 18:00 79 17 120/61 (80) 93 08/10/19 17:00 72 16 108/58 (75) 98 08/10/19 16:37 86 20 30 08/10/19 16:00 40 08/10/19 16:00 Mechanical Ventilator Mechanical Ventilator 08/10/19 16:00 72 08/10/19 16:00 98.6 80 15 107/57 (74) 100 Height (Feet): 4 Height (Inches): 10.00 Weight (Pounds): 150 General Appearance: WD/WN, no acute distress HEENT: normocephalic, atraumatic, anicteric, mucous membranes moist, PERRL Respiratory/Chest: chest wall non-tender, lungs clear, normal breath sounds, no respiratory distress, no accessory muscle use Cardiovascular: normal peripheral pulses, normal rate, regular rhythm, no gallop/murmur, no JVD Abdomen: normal bowel sounds, soft, non tender, no organomegaly, non distended , no mass, no scars Extremities: no cyanosis, no clubbing Skin: no rash, no lesions, no ulcers 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, alert, responsive Lymphatic: no neck adenopathy, no groin adenopathy Musculoskeletal: normal muscle bulk, no effusion Laboratory Tests Test 08/10/19 15:25 08/11/19 05:15 08/11/19 10:00 Arterial Blood pH 7.408 (7.350-7.450) 7.445 (7.350-7.450) Arterial Blood Partial Pressure CO2 46.3 mmHg (35.0-45.0) H 39.3 mmHg (35.0-45.0) Arterial Blood Partial Pressure O2 73.9 mmHg (75.0-100.0) L 86.2 mmHg (75.0-100.0) Arterial Blood HCO3 28.6 mmol/L (22.0-26.0) H 26.4 mmol/L (22.0-26.0) H Arterial Blood Oxygen Saturation 93.2 % (95-100) L 95.8 % (95-100) Arterial Blood Base Excess 3.3 (-2-2) H 2.2 (-2-2) H Gerard Test Positive Positive White Blood Count 8.3 K/UL (4.8-10.8) Red Blood Count 4.17 M/UL (4.20-5.40) L Hemoglobin 9.6 G/DL (12.0-16.0) L Hematocrit 31.0 % (37.0-47.0) L Mean Corpuscular Volume 74 FL (80-99) L Mean Corpuscular Hemoglobin 23.1 PG (27.0-31.0) L Mean Corpuscular Hemoglobin Concent 31.1 G/DL (32.0-36.0) L Red Cell Distribution Width 21.8 % (11.6-14.8) H Platelet Count 336 K/UL (150-450) Mean Platelet Volume 4.4 FL (6.5-10.1) L Neutrophils (%) (Auto) 65.2 % (45.0-75.0) Lymphocytes (%) (Auto) 13.9 % (20.0-45.0) L Monocytes (%) (Auto) 6.8 % (1.0-10.0) Eosinophils (%) (Auto) 7.2 % (0.0-3.0) H Basophils (%) (Auto) 6.8 % (0.0-2.0) H Sodium Level 137 MMOL/L (136-145) Potassium Level 4.2 MMOL/L (3.5-5.1) Chloride Level 102 MMOL/L (98-107) Carbon Dioxide Level 27 MMOL/L (21-32) Anion Gap 8 mmol/L (5-15) Blood Urea Nitrogen 18 mg/dL (7-18) Creatinine 0.3 MG/DL (0.55-1.30) L Estimat Glomerular Filtration Rate > 60 mL/min (>60) Glucose Level 178 MG/DL (74-106) H Calcium Level 8.9 MG/DL (8.5-10.1) Current Medications Medications (Trade) Dose Ordered Sig/Sandeep Route PRN Reason Start Time Stop Time Status Last Admin Dose Admin Acetylcysteine (Mucomyst) 400 mg Q4HRT HHN 08/01/19 11:00 08/16/19 18:59 08/11/19 14:37 Albuterol/ Ipratropium (Albuterol/ Ipratropium) 3 ml Q4HRT N 08/07/19 07:00 08/12/19 06:59 08/11/19 14:37 Chlorhexidine Gluconate (Debora-Hex 2%) 1 applic DAILY@2000 TOPIC 07/31/19 20:00 08/13/19 19:59 08/10/19 20:15 Heparin Sodium (Porcine) (Heparin 5000 units/ml) 5,000 units EVERY 12 HOURS SUBQ 08/04/19 21:00 09/03/19 20:59 08/11/19 09:34 Metoclopramide HCl (Reglan) 5 mg Q6H PRN IVP Nausea & Vomiting 08/04/19 10:00 09/03/19 09:59 Pantoprazole (Protonix) 40 mg DAILY IV 08/01/19 09:00 08/31/19 08:59 08/11/19 09:31 Gigi Sanabria M.D. Aug 11, 2019 15:25
--- NOTE | 2019-08-11 16:50 | NUR ---
Pt extubated and placed on ordered BiPAP settings per MD order. Pt sandra BiPAP well. Will monitor pt progress.
--- NOTE | 2019-08-11 17:15 | NUR ---
RESPIRATORY NOTE: Received pt on ordered vent settings. Pt airway is patent and secured. Vent alarms are on and audible. Vent is plugged wero red outlet. Will monitor pt progress. Addendum: 08/11/19 at 1910 by PAULINE SALGADO RT RESPIRATORY NOTE: At 0715, received pt on ordered vent settings. Pt airway is patent and secured. Vent alarms are on and audible. Vent is plugged wero red outlet. Will monitor pt progress.
--- NOTE | 2019-08-11 18:00 | NUR ---
NURSE NOTES: Called Dr Bonilla ,informed re pt's tolerating extubation and Bipap .ordered to keep pt NPO while on Bipap.,order carried out.
[2019-08-11] MEDS ORDERED: NS 275ml ONE ×2 (19:22→19:31)
--- NOTE | 2019-08-11 19:25 | NUR ---
HAND-OFF: Report given to Pasquale nunez RN,pt resting quietly in bed no resp distress presented on Bipap 15/8 Fio2 100%.
--- NOTE | 2019-08-11 19:30 | NUR ---
NURSE NOTES: SBAR received from Yann RN. Patient extubated today and currently on continuous BIPAP 15/8 and on 100% FiO2. Upon assessment patient is able to follow commands but is non-verbal. Patient can knod head for simples yes and no's. 105/65, HR is 79 NSR, SpO2 is 100%, RR is 20. Patient is afebrile and cool to the touch. OGT is noted, patient is NPO for now while on BIPAP. Suprapubic catheter is noted. P200 mattress noted, wounds noted, JASON PICC line noted NS TKO. No acute distress at this time, patient is currently tolerating BIPAP at this time, will continue to monitor.
[2019-08-11] MEDS ORDERED: Tubing IV Secondary IV ONE (19:31)
[2019-08-11] MEDS: Dyna-Hex 2% Top Sol 2oz TOPIC SCH (20:00)
--- NOTE | 2019-08-11 20:00 | NUR ---
NURSE NOTES: Patient repositioned Oral care provided NAD at this time. Spo2 is 100%, Fio2 is 30% Respiratory rate 22. Work of breathing is normal BP stable, afebrile.
--- NOTE | 2019-08-11 20:33 | NUR ---
NURSE NOTES: Family at bedside. Family updated on plan of care. Patient remains stable at this time.
--- NOTE | 2019-08-11 21:09 | NUR ---
NURSE NOTES: titrated down FiO2 to 85%. HR os NSR. SpO2 95%
--- NOTE | 2019-08-11 22:00 | NUR ---
NURSE NOTES: Repositioned and given oral care Vitals are stable at this time. NAD. Is awake and follows commands. Afebrile Remains on 85% FiO2 Spo2 95%
[2019-08-12] VITALS (24 sets, daily range): BP systolic 84–130; BP diastolic 51–80
--- NOTE | 2019-08-12 | NUR ---
NURSE NOTES: Repositioned and oral care performed titrated down Fio2 to 75% SpO2 staying above 95% HR 80 NSR BP is stable Respiratory pattern normal NAD will continue to monitor.
--- NOTE | 2019-08-12 02:00 | NUR ---
NURSE NOTES: Repositioned and oral care performed titrated down Fio2 to 65% SpO2 staying above 95% HR 78 NSR BP is stable Respiratory pattern normal NAD afebrile will continue to monitor
[2019-08-12] MEDS: Albuterol/Ipratropium 3ml neb HHN SCH ×6 (02:55→23:06)
[2019-08-12] MEDS: Acetylcysteine 20% Soln 4ml HHN SCH ×6 (02:55→23:06)
--- NOTE | 2019-08-12 04:00 | NUR ---
NURSE NOTES: Repositioned and oral care performed Sponge bath given titrated down Fio2 to 65% SpO2 staying above 95% HR 77 NSR BP is stable Patient is awake and following somple commands Blood drawn, sent to lab Respiratory pattern normal Remains on BIPAP, tolerating well. NAD will continue to monitor
[2019-08-12 05:37] LABS: BASOPHILS % (AUTO) 0.7 % (0.0-2.0); EOSINOPHILS % (AUTO) 3.6 % (0.0-3.0); HEMATOCRIT 34.7 % (37.0-47.0); HEMOGLOBIN 11.1 G/DL (12.0-16.0); LYMPHOCYTES % (AUTO) 18.3 % (20.0-45.0); MEAN CORPUSCULAR VOLUME 75 FL (80-99); MONOCYTES % (AUTO) 5.1 % (1.0-10.0); NEUTROPHILS % (AUTO) 72.2 % (45.0-75.0); PLATELET COUNT 392 K/UL (150-450); RED BLOOD COUNT 4.65 M/UL (4.20-5.40); WHITE BLOOD COUNT 13.5 K/UL (4.8-10.8)
--- NOTE | 2019-08-12 06:00 | NUR ---
NURSE NOTES: Repositioned Oral care given Vitals remains stable titrated down FiO2 to 40%. SpO2 remaining above 92% Tolerating BIPAP well Normal breathing pattern No new changes.
[2019-08-12 06:19] LABS: ALANINE AMINOTRANSFERASE 27 U/L (12-78); ALBUMIN 3.1 G/DL (3.4-5.0); ALBUMIN/GLOBULIN RATIO 0.6 (1.0-2.7); ALKALINE PHOSPHATASE 83 U/L (46-116); ANION GAP 9 mmol/L (5-15); ASPARTATE AMINO TRANSFERASE 41 U/L (15-37); BILIRUBIN,TOTAL 0.5 MG/DL (0.2-1.0); BLOOD UREA NITROGEN 19 mg/dL (7-18); CALCIUM 9.1 MG/DL (8.5-10.1); CARBON DIOXIDE 29 MMOL/L (21-32); CHLORIDE 101 MMOL/L (98-107); CREATININE 0.2 MG/DL (0.55-1.30); POTASSIUM 5.3 MMOL/L (3.5-5.1); SODIUM 139 MMOL/L (136-145)
--- NOTE | 2019-08-12 07:06 | NUR ---
RESPIRATORY NOTE: received pt on current bipap settings. pt has full face mask with foam barrier in place. switched to partial mask and w+ith no visible redness or skin irritation. alarms are audible with bipap plugged into the red outlet. ABG to be drawn later this AM and cont to monitor.
--- NOTE | 2019-08-12 07:30 | NUR ---
NURSE NOTES: Report received from Pasquale CARTER. Patient received on continuous BIPAP 15/8 and on 40% FiO2, O2Sat 96%. Patient is non-verbal; however, able to follow simple commands, nods head to simple questions. 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 OGT is noted, patient is NPO while on BIPAP. Suprapubic catheter is noted and draining urine to urometer. P200 mattress noted, wounds noted. JASON PICC line intact and patent, dressing clean, dry and intact. No acute distress noted, will resume plan of care.
[2019-08-12] MEDS: Pantoprazole Inj IV SCH (08:05)
[2019-08-12] MEDS: Heparin 5000 units/ml inj SUBQ SCH (08:06)
--- NOTE | 2019-08-12 08:45 | NUR ---
NURSE NOTES: Pt refused ABG, per RT.
--- NOTE | 2019-08-12 08:59 | NUR ---
RESPIRATORY NOTE: pt refusing ABG. no blood drawn. RN notified. pt now on 2L NC. current spo2 97% no signs of resp distress.
--- NOTE | 2019-08-12 09:00 | NUR ---
NURSE NOTES: Pt placed on 2L NC. Tolerating well- O2Sat 96%.
--- NOTE | 2019-08-12 09:39 | General Progress Note ---
Assessment/Plan Problem List: (1) Spina bifida ICD Codes: Q05.9 - Spina bifida, unspecified SNOMED: 79299306 Qualifiers: Qualified Codes: Q05.4 - Unspecified spina bifida with hydrocephalus (2) Respiratory failure with hypoxia ICD Codes: J96.91 - Respiratory failure, unspecified with hypoxia SNOMED: 82886315671480592 Qualifiers: Qualified Codes: J96.21 - Acute and chronic respiratory failure with hypoxia (3) Dysphagia ICD Codes: R13.10 - Dysphagia, unspecified SNOMED: 49233549, [id number] Status: unchanged Assessment/Plan: extubated ppi repeat labs fu H&H NGTF on hold s/p unit PRBC this week stool ob neg x1 reglan family wants to transfer the patient to [facility] and refusing PEG here at [facility] pending repeat swallow eval for today Subjective ROS Limited/Unobtainable: No Allergies: Coded Allergies: PENICILLIN G (Verified Allergy, Unknown, 12/02/18) Tolerates cabapenem, cephalosporin PENICILLINS (Unverified Allergy, Unknown, 12/02/18) Objective Last 24 Hour Vital Signs Date Time Temp Pulse Resp B/P (MAP) Pulse Ox O2 Delivery O2 Flow Rate FiO2 08/12/19 09:00 85 23 120/73 (89) 97 08/12/19 08:44 81 19 94 Full Face 40 08/12/19 08:09 75 08/12/19 08:00 Bi-pap Bi-pap 08/12/19 08:00 98.8 72 14 119/67 (84) 95 08/12/19 07:00 82 20 98 Full Face 40 81 21 99 Bi-Pap 40 08/12/19 07:00 73 15 84/51 (62) 98 08/12/19 06:00 74 14 90/56 (67) 91 08/12/19 06:00 45 08/12/19 05:29 79 16 95 Full Face 30 08/12/19 05:00 79 20 103/61 (75) 95 08/12/19 04:00 55 08/12/19 04:00 78 08/12/19 04:00 99.0 83 22 127/78 (94) 99 08/12/19 04:00 Bi-pap Bi-pap 08/12/19 03:09 78 16 100 Full Face 50 74 14 99 Bi-Pap 08/12/19 03:00 73 17 86/52 (63) 96 08/12/19 02:00 74 14 103/62 (76) 95 08/12/19 02:00 65 08/12/19 01:10 85 23 95 Full Face 60 08/12/19 01:00 87 14 117/75 (89) 92 08/12/19 00:00 75 08/12/19 00:00 Bi-pap Bi-pap 08/12/19 00:00 83 08/12/19 00:00 98.9 88 20 114/62 (79) 96 08/11/19 23:17 88 16 99 Full Face 85 92 17 100 08/11/19 23:00 91 21 107/65 (79) 100 08/11/19 22:00 95 21 92/65 (74) 100 08/11/19 21:26 88 17 95 Facial 85 08/11/19 21:00 90 20 103/63 (76) 94 08/11/19 21:00 85 08/11/19 20:00 Bi-pap Bi-pap 08/11/19 20:00 87 08/11/19 20:00 100 08/11/19 20:00 99.3 86 21 112/71 (85) 100 08/11/19 19:14 76 20 99 Facial 100 95 20 99 Bi-Pap 100 08/11/19 19:00 77 20 105/69 (81) 100 08/11/19 18:00 87 20 121/82 (95) 93 08/11/19 17:00 112 18 117/71 (86) 96 08/11/19 17:00 116 20 100 Facial 30 08/11/19 16:50 Bi-pap 30 08/11/19 16:00 Mechanical Ventilator Mechanical Ventilator 08/11/19 16:00 98.5 125 22 125/86 (99) 96 08/11/19 16:00 125 08/11/19 15:13 85 19 107/71 (83) 98 08/11/19 14:37 91 24 99 Mechanical Ventilator 30 91 22 08/11/19 14:37 91 22 98 Mechanical Ventilator 30 08/11/19 14:00 79 16 41/14 (23) 08/11/19 13:05 79 19 112/57 (75) 95 08/11/19 12:56 94 20 Mechanical Ventilator 30 08/11/19 12:03 30 08/11/19 12:00 98.9 85 20 105/51 (69) 95 08/11/19 12:00 91 08/11/19 12:00 Mechanical Ventilator Mechanical Ventilator 08/11/19 11:14 94 20 99 Mechanical Ventilator 30 81 17 08/11/19 11:00 82 21 119/51 (73) 84 08/11/19 10:00 89 24 113/64 (80) 85 08/11/19 10:00 30 Intake and Output 08/11/19 08/12/19 19:00 07:00 Intake Total 290 ml 355 ml Output Total 735 ml 640 ml Balance -445 ml -285 ml Intake Free Water 110 ml IV Total 355 ml Tube Feeding 180 ml Output Urine Total 735 ml 640 ml Laboratory Tests 08/11/19 10:00: Arterial Blood pH 7.445, Arterial Blood Partial Pressure CO2 39.3, Arterial Blood Partial Pressure O2 86.2, Arterial Blood HCO3 26.4H, Arterial Blood Oxygen Saturation 95.8, Arterial Blood Base Excess 2.2H, Gerard Test Positive 08/12/19 04:00: White Blood Count 13.5#H, Red Blood Count 4.65, Hemoglobin 11.1L, Hematocrit 34.7L, Mean Corpuscular Volume 75L, Mean Corpuscular Hemoglobin 23.9L, Mean Corpuscular Hemoglobin Concent 32.0, Red Cell Distribution Width 22.0H, Platelet Count 392, Mean Platelet Volume 5.3L, Neutrophils (%) (Auto) 72.2, Lymphocytes (%) (Auto) 18.3L, Monocytes (%) (Auto) 5.1, Eosinophils (%) (Auto) 3.6H, Basophils (%) (Auto) 0.7, Sodium Level 139, Potassium Level 5.3H, Chloride Level 101, Carbon Dioxide Level 29, Anion Gap 9, Blood Urea Nitrogen 19H, Creatinine 0.2L, Estimat Glomerular Filtration Rate > 60, Glucose Level 90 , Calcium Level 9.1, Total Bilirubin 0.5, Aspartate Amino Transf (AST/SGOT) 41H , Alanine Aminotransferase (ALT/SGPT) 27, Alkaline Phosphatase 83, Total Protein 8.4H, Albumin 3.1L, Globulin 5.3, Albumin/Globulin Ratio 0.6L Height (Feet): 4 Height (Inches): 10.00 Weight (Pounds): 149 General Appearance: lethargic EENT: normal ENT inspection Neck: supple Cardiovascular: tachycardia Respiratory/Chest: decreased breath sounds Abdomen: normal bowel sounds, non tender, soft Extremities: non-tender Tim Davis MD Aug 12, 2019 09:39
--- NOTE | 2019-08-12 12:30 | NUR ---
NURSE NOTES: Pt repositioned and oral care completed. Pt tolerating 2L NC well, SpO2 remaining above 92%. No new orders and no changes in pt status at this time.
--- NOTE | 2019-08-12 14:25 | NUR ---
NURSE NOTES: Spoke to [facility] and was told video swallow would take place tomorrow, as pt is too high risk of aspiration to do a bedside swallow eval. Family at bedside, passed along this information to them. Dr. Sanabria was also at bedside, assessing pt, and updated pt's family on her current condition. No new orders noted. Will continue to monitor.
--- NOTE | 2019-08-12 15:23 | Infectious Diseases Prog Note ---
Assessment/Plan Problems: (1) Pneumonia of both lower lobes Assessment & Plan: suspect due to recurrent aspiration , s/p meropenem and zyvox coverage for another two weeks , repeated sputum culture on 07/31 and 08/01 are negative for any pathogens. aspiration precaution, monitor CXR , may need tube feeding and tracheostomy in the future if continue to fail weaning trials and unable to protect her airway , D/W family . (2) Sepsis Assessment & Plan: with streptococcus alpha hemolytic , resolved , S/P Zyvox FOR TWO WEEKS for pneumonia coverage too , repeated blood culture is negative so far on 07/29 which confirm clearance , may need to remove the central line and put a new one if repeated culture in the future turns positive again. (3) Decubitus skin ulcer Assessment & Plan: of the sacrum, continue off loading and local wound care as per hospital protocol (4) Respiratory failure with hypoxia Assessment & Plan: was reintubated again and then extubated on 08/11/19 , may need trach if intubated again . aspiration precaution and keep HOB > 30 DEGREE (5) At risk for aspiration pneumonia Assessment & Plan: aspiration precaution, may benefit from tube feeding , since weak oral phase (6) Catheter-associated urinary tract infection Assessment & Plan: now with yeast , suspect catheter colonization, S/P suprapubic catheter change , no need for antifungal treatment at this point (7) Leukocytosis Assessment & Plan: suspect dehydration related, recommend hydration since hemoconcentrated, already on wide spectrum antibiotics Assessment/Plan D/W consultants ID will sign off, please call with question Subjective Constitutional: Reports: no symptoms HEENT: Reports: congestion Respiratory: Reports: dry cough Breasts: Reports: no symptoms Cardiovascular: Reports: no symptoms Gastrointestinal/Abdominal: Reports: no symptoms Genitourinary: Reports: no symptoms Neurologic: Reports: no symptoms Psychiatric: Reports: no symptoms Skin: Reports: no symptoms Endocrine: Reports: no symptoms Hematologic: Reports: no symptoms Musculoskeletal: Reports: no symptoms Allergies: Coded Allergies: PENICILLIN G (Verified Allergy, Unknown, 12/02/18) Tolerates cabapenem, cephalosporin PENICILLINS (Unverified Allergy, Unknown, 12/02/18) Subjective she was successfully extubated , still in ICU , fully awake and responsive , no fever today , no chills , no phlegm, family at the bedside Objective Vital Signs Last 24 Hour Vital Signs Date Time Temp Pulse Resp B/P (MAP) Pulse Ox O2 Delivery O2 Flow Rate FiO2 08/12/19 15:11 95 23 99 Nasal Cannula 4.0 36 95 25 95 08/12/19 15:00 92 22 114/75 (88) 94 08/12/19 14:00 93 22 110/78 (89) 96 08/12/19 13:00 94 22 103/63 (76) 90 08/12/19 12:00 2.0 08/12/19 12:00 99.2 93 21 106/62 (77) 94 08/12/19 12:00 Nasal Cannula 2.0 Bi-pap 08/12/19 11:32 97 08/12/19 11:15 95 24 95 Nasal Cannula 4.0 36 86 26 94 08/12/19 11:00 86 22 116/74 (88) 93 08/12/19 10:00 79 20 119/69 (86) 97 08/12/19 09:00 85 23 120/73 (89) 97 08/12/19 08:44 81 19 94 Full Face 40 08/12/19 08:09 75 08/12/19 08:00 45 08/12/19 08:00 Bi-pap Bi-pap 08/12/19 08:00 98.8 72 14 119/67 (84) 95 08/12/19 07:00 82 20 98 Full Face 40 81 21 99 Bi-Pap 40 08/12/19 07:00 73 15 84/51 (62) 98 08/12/19 06:00 74 14 90/56 (67) 91 08/12/19 06:00 45 08/12/19 05:29 79 16 95 Full Face 30 08/12/19 05:00 79 20 103/61 (75) 95 08/12/19 04:00 55 08/12/19 04:00 78 08/12/19 04:00 99.0 83 22 127/78 (94) 99 08/12/19 04:00 Bi-pap Bi-pap 08/12/19 03:09 78 16 100 Full Face 50 74 14 99 Bi-Pap 08/12/19 03:00 73 17 86/52 (63) 96 08/12/19 02:00 74 14 103/62 (76) 95 08/12/19 02:00 65 08/12/19 01:10 85 23 95 Full Face 60 08/12/19 01:00 87 14 117/75 (89) 92 08/12/19 00:00 75 08/12/19 00:00 Bi-pap Bi-pap 08/12/19 00:00 83 08/12/19 00:00 98.9 88 20 114/62 (79) 96 08/11/19 23:17 88 16 99 Full Face 85 92 17 100 08/11/19 23:00 91 21 107/65 (79) 100 08/11/19 22:00 95 21 92/65 (74) 100 08/11/19 21:26 88 17 95 Facial 85 08/11/19 21:00 90 20 103/63 (76) 94 08/11/19 21:00 85 08/11/19 20:00 Bi-pap Bi-pap 08/11/19 20:00 87 08/11/19 20:00 100 08/11/19 20:00 99.3 86 21 112/71 (85) 100 08/11/19 19:14 76 20 99 Facial 100 95 20 99 Bi-Pap 100 08/11/19 19:00 77 20 105/69 (81) 100 08/11/19 18:00 87 20 121/82 (95) 93 08/11/19 17:00 112 18 117/71 (86) 96 08/11/19 17:00 116 20 100 Facial 30 08/11/19 16:50 Bi-pap 30 08/11/19 16:00 Mechanical Ventilator Mechanical Ventilator 08/11/19 16:00 98.5 125 22 125/86 (99) 96 08/11/19 16:00 125 Height (Feet): 4 Height (Inches): 10.00 Weight (Pounds): 149 General Appearance: WD/WN, no acute distress HEENT: normocephalic, atraumatic, anicteric, mucous membranes moist, PERRL Respiratory/Chest: chest wall non-tender, no respiratory distress, no accessory muscle use, decreased breath sounds, crackles/rales Cardiovascular: normal peripheral pulses, normal rate, regular rhythm, no gallop/murmur, no JVD Abdomen: normal bowel sounds, soft, non tender, no organomegaly, non distended , no mass, no scars Extremities: no cyanosis, no clubbing Skin: no rash, no lesions Neurologic/Psychiatric: alert, responsive Lymphatic: no neck adenopathy, no groin adenopathy Musculoskeletal: normal muscle bulk, no effusion Laboratory Tests Test 08/12/19 04:00 White Blood Count 13.5 K/UL (4.8-10.8) #H Red Blood Count 4.65 M/UL (4.20-5.40) Hemoglobin 11.1 G/DL (12.0-16.0) L Hematocrit 34.7 % (37.0-47.0) L Mean Corpuscular Volume 75 FL (80-99) L Mean Corpuscular Hemoglobin 23.9 PG (27.0-31.0) L Mean Corpuscular Hemoglobin Concent 32.0 G/DL (32.0-36.0) Red Cell Distribution Width 22.0 % (11.6-14.8) H Platelet Count 392 K/UL (150-450) Mean Platelet Volume 5.3 FL (6.5-10.1) L Neutrophils (%) (Auto) 72.2 % (45.0-75.0) Lymphocytes (%) (Auto) 18.3 % (20.0-45.0) L Monocytes (%) (Auto) 5.1 % (1.0-10.0) Eosinophils (%) (Auto) 3.6 % (0.0-3.0) H Basophils (%) (Auto) 0.7 % (0.0-2.0) Sodium Level 139 MMOL/L (136-145) Potassium Level 5.3 MMOL/L (3.5-5.1) H Chloride Level 101 MMOL/L (98-107) Carbon Dioxide Level 29 MMOL/L (21-32) Anion Gap 9 mmol/L (5-15) Blood Urea Nitrogen 19 mg/dL (7-18) H Creatinine 0.2 MG/DL (0.55-1.30) L Estimat Glomerular Filtration Rate > 60 mL/min (>60) Glucose Level 90 MG/DL (74-106) Calcium Level 9.1 MG/DL (8.5-10.1) Total Bilirubin 0.5 MG/DL (0.2-1.0) Aspartate Amino Transf (AST/SGOT) 41 U/L (15-37) H Alanine Aminotransferase (ALT/SGPT) 27 U/L (12-78) Alkaline Phosphatase 83 U/L (46-116) Total Protein 8.4 G/DL (6.4-8.2) H Albumin 3.1 G/DL (3.4-5.0) L Globulin 5.3 g/dL Albumin/Globulin Ratio 0.6 (1.0-2.7) L Current Medications Medications (Trade) Dose Ordered Sig/Sandeep Route PRN Reason Start Time Stop Time Status Last Admin Dose Admin Acetylcysteine (Mucomyst) 400 mg Q4HRT N 08/01/19 11:00 08/16/19 18:59 08/12/19 15:11 Albuterol/ Ipratropium (Albuterol/ Ipratropium) 3 ml Q4HRT N 08/12/19 11:00 08/17/19 10:59 08/12/19 15:11 Chlorhexidine Gluconate (Debora-Hex 2%) 1 applic DAILY@2000 TOPIC 07/31/19 20:00 08/13/19 19:59 08/11/19 20:00 Heparin Sodium (Porcine) (Heparin 5000 units/ml) 5,000 units EVERY 12 HOURS SUBQ 08/04/19 21:00 09/03/19 20:59 08/12/19 08:06 Metoclopramide HCl (Reglan) 5 mg Q6H PRN IVP Nausea & Vomiting 08/04/19 10:00 09/03/19 09:59 Pantoprazole (Protonix) 40 mg DAILY IV 08/01/19 09:00 08/31/19 08:59 08/12/19 08:05 Gigi Sanabria M.D. Aug 12, 2019 15:23
--- NOTE | 2019-08-12 15:47 | Internal Med Progress Note ---
Subjective Date of Service: Aug 12, 2019 Physician Name Niraj Teixeira Attending Physician Wil Masters MD Current Medications Medications (Trade) Dose Ordered Sig/Sandeep Route PRN Reason Start Time Stop Time Status Last Admin Dose Admin Acetylcysteine (Mucomyst) 400 mg Q4HRT N 08/01/19 11:00 08/16/19 18:59 08/12/19 15:11 Albuterol/ Ipratropium (Albuterol/ Ipratropium) 3 ml Q4HRT N 08/12/19 11:00 08/17/19 10:59 08/12/19 15:11 Chlorhexidine Gluconate (Debora-Hex 2%) 1 applic DAILY@1999 TOPIC 07/31/19 20:00 08/13/19 19:59 08/11/19 20:00 Heparin Sodium (Porcine) (Heparin 5000 units/ml) 5,000 units EVERY 12 HOURS SUBQ 08/04/19 21:00 09/03/19 20:59 08/12/19 08:06 Metoclopramide HCl (Reglan) 5 mg Q6H PRN IVP Nausea & Vomiting 08/04/19 10:00 09/03/19 09:59 Pantoprazole (Protonix) 40 mg DAILY IV 08/01/19 09:00 08/31/19 08:59 08/12/19 08:05 Allergies: Coded Allergies: PENICILLIN G (Verified Allergy, Unknown, 12/02/18) Tolerates cabapenem, cephalosporin PENICILLINS (Unverified Allergy, Unknown, 12/02/18) ROS Limited/Unobtainable: Yes Subjective 49 YO F with pneumonia and respiratory failure. Extubated 08/11/19. Cover for Int Med-DR Masters. ICU. Tolerating nasal canula Objective Last Vital Signs Date Time Temp Pulse Resp B/P (MAP) Pulse Ox O2 Delivery O2 Flow Rate FiO2 08/12/19 15:11 95 23 99 Nasal Cannula 4.0 36 95 25 95 08/12/19 15:00 114/75 (88) 08/12/19 12:00 99.2 Laboratory Tests Test 08/12/19 04:00 White Blood Count 13.5 K/UL (4.8-10.8) #H Red Blood Count 4.65 M/UL (4.20-5.40) Hemoglobin 11.1 G/DL (12.0-16.0) L Hematocrit 34.7 % (37.0-47.0) L Mean Corpuscular Volume 75 FL (80-99) L Mean Corpuscular Hemoglobin 23.9 PG (27.0-31.0) L Mean Corpuscular Hemoglobin Concent 32.0 G/DL (32.0-36.0) Red Cell Distribution Width 22.0 % (11.6-14.8) H Platelet Count 392 K/UL (150-450) Mean Platelet Volume 5.3 FL (6.5-10.1) L Neutrophils (%) (Auto) 72.2 % (45.0-75.0) Lymphocytes (%) (Auto) 18.3 % (20.0-45.0) L Monocytes (%) (Auto) 5.1 % (1.0-10.0) Eosinophils (%) (Auto) 3.6 % (0.0-3.0) H Basophils (%) (Auto) 0.7 % (0.0-2.0) Sodium Level 139 MMOL/L (136-145) Potassium Level 5.3 MMOL/L (3.5-5.1) H Chloride Level 101 MMOL/L (98-107) Carbon Dioxide Level 29 MMOL/L (21-32) Anion Gap 9 mmol/L (5-15) Blood Urea Nitrogen 19 mg/dL (7-18) H Creatinine 0.2 MG/DL (0.55-1.30) L Estimat Glomerular Filtration Rate > 60 mL/min (>60) Glucose Level 90 MG/DL (74-106) Calcium Level 9.1 MG/DL (8.5-10.1) Total Bilirubin 0.5 MG/DL (0.2-1.0) Aspartate Amino Transf (AST/SGOT) 41 U/L (15-37) H Alanine Aminotransferase (ALT/SGPT) 27 U/L (12-78) Alkaline Phosphatase 83 U/L (46-116) Total Protein 8.4 G/DL (6.4-8.2) H Albumin 3.1 G/DL (3.4-5.0) L Globulin 5.3 g/dL Albumin/Globulin Ratio 0.6 (1.0-2.7) L Intake and Output 08/11/19 08/12/19 19:00 07:00 Intake Total 290 ml 355 ml Output Total 735 ml 640 ml Balance -445 ml -285 ml Intake Free Water 110 ml IV Total 355 ml Tube Feeding 180 ml Output Urine Total 735 ml 640 ml Objective General Appearance: WD/WN, moderate distress EENT: PERRL/EOMI, normal ENT inspection Neck: non-tender, normal alignment, supple Cardiovascular: normal peripheral pulses, normal rate, regular rhythm, no gallop/murmur, no JVD Respiratory/Chest: Nasal canula; crackles/rales, rhonchi - bilaterally, expiratory wheezing Abdomen: normal bowel sounds, non tender, soft, no organomegaly, no mass Skin: normal pigmentation, warm/dry Assessment/Plan Problem List: (1) Respiratory failure with hypoxia Assessment & Plan: S/P extubation 08/11/19 per pulmonary=Dr Bonilla (2) Pneumonia of both lower lobes Assessment & Plan: See ID note. Continue meropenem and zyvox (3) UTI (urinary tract infection) Assessment & Plan: Pseudamonas, ESBL E. Coli, and vanco resistant enterococcus. See ID=Dr Sanabria. Continue meropenem, linezolid and micafugin (4) Sepsis (5) Paraplegia (6) Spina bifida Niraj Teixeira MD Aug 12, 2019 15:47
--- NOTE | 2019-08-12 16:03 | NUR ---
NURSE NOTES: ST Nav[facility], came to speak to family at bedside. O2sat in the 80's, changed pulse ox; however O2sat remains the same. Pt is on 4L NC. RT will do ABG and place pt back on biPAP if necessary. No respiratory distress noted. Pt appears to be breathing with no issue. Will continue to monitor.
--- NOTE | 2019-08-12 16:20 | NUR ---
NURSE NOTES: RT deep suctioned with commercial underwriter at bedside. O2Sat back up to the 90's. ABG collected.
--- NOTE | 2019-08-12 16:20 | NUR ---
SWALLOW/SPEECH THERAPY NOTE: PATIENT REFERRED FOR A REPEAT SWALLOW EVALUATION, SEE INITIAL SWALLOW EVAL ON 07/21/19. AT THAT TIME, THE PATIENT WAS REFUSING MOST PO TRIALS AND WAS HIGH RISK FOR SILENT ASPIRATION. SHE ALSO HAD A SIGNIFICANT DYSPHAGIA FOR HER OROPHARYNGEAL SECRETIONS AND NEEDED FREQUENT SUCTIONING. AT THAT TIME IT WAS RECOMMENDED THAT SHE CONTINUE WITH NONORAL (NGT) FEEDINGS UNTIL SHE WAS READY FOR A MODIFIED BARIUM SWALLOW STUDY TO FURTHER ASSESS SWALLOW, DETERMINE SILENT ASPIRATION RISK, AND ATTEMPT TRIAL TX TECHNIQUES. SHE WAS LATER D/C ON 08/01/19 SINCE SHE WAS TRANSFERRED TO ICU DUE TO CHANGE IN MEDICAL STATUS AND REQUIRED THE BIPAP. PER RN, THE PATIENT STILL HAS PERIODS OF NEEDING THE BIPAP. THE PATIENT IS CURRENTLY ON 4 LITERS 02 NC BUT SOUNDS VERY CONGESTED IN HER THROAT. RT TO DEEP NASAL SUCTION PATIENT SHE IS UNABLE TO COUGH OUT HER SECRETIONS. COLOR FINISHER ABLE TO GET MILD AMOUNT OF CLEAR SALIVA ON BOTH SIDES OF HER MOUTH AND THICKER YELLOWISH SECRETIONS FROM THE BACK OF HER THROAT. THE PATIENT IS ABLE TO PROTRUDE HER TONGUE BUT IT DEVIATES TO THE LEFT AND SHE CANNOT MOVE IT WELL TO THE LEFT SIDE NOR TO THE LEFT CHEEK. BETTER ROM TO THE RIGHT. REDUCED ELEVATION AND DEPRESSION NOTED AND APPEARS TO HAVE REDUCED STRENGTH TO RESISTANCE ON THE RIGHT. LIP CLOSURE APPEARS FUNCTIONAL. SHE IS MOSTLY NONVERBAL. WILL HOLD ON PO TRIALS FOR NOW PATIENT HAS A HIGH RISK FOR SILENT ASPIRATION. HER BROTHER IS NOT RECEPTIVE TO PEG AT THIS TIME. HE WOULD LIKE HER TO HAVE PO INTAKE ONLY IF IT IS SAFE AND SHE IS NOT ASPIRATING. PLAN: F/UP TOMORROW TO SEE IF SHE IS READY FOR A MODIFIED BARIUM SWALLOW STUDY. CONTINUE WITH NONORAL FEEDINGS (NGT) WHICH SHE HAD YESTERDAY AND ORAL CARE/SUCTION PRN. WILL ALSO TRY TO SPEAK WITH HER SISTER, HAMMAD, REGARDING ABOVE ISSUES. D/W RN, NADER, ABOVE INFORMATION
--- NOTE | 2019-08-12 17:35 | NUR ---
NURSE NOTES: Spoke to Dr. Bonilla, who resumed tube feeding (Vital AF 1.2 @45mL/hr) when pt not on BiPAP.
[2019-08-12] MEDS ORDERED: Sodium Polystyrene Sulfonate 15gm Powder ORAL SCH (18:00)
--- NOTE | 2019-08-12 18:00 | Pulmonolgy Critical Care Note ---
Critical Care - Asmt/Plan Assessment/Plan: (1) Pneumonia of both lower lobes Assessment & Plan: VDRF, intubated 07/12/19, S/P FOB 07/12/19; Reintubated ; extubated 08/11/19 (2) Catheter-associated urinary tract infection Assessment & Plan: PsA and proteus - s/p treatment (3) Respiratory failure with hypoxia Assessment & Plan: Acute on chronic hypercapnic and hypoxemic RF 2/2 PNA Duplex neg, minimally elevated d-dimer, unlikely VTE and already on a NOAC (4) HCAP (healthcare-associated pneumonia) (5) Paraplegia (6) Sepsis (7) Suprapubic catheter (8) Restrictive lung disease due to kyphoscoliosis (9) Decubitus skin ulcer (10) Spina bifida (11) Anemia, acute (12) hx recurrent PE on eliquis Plan: * Monitor respiratory status s/p extubation * BiPAP qhs and prn * High risk for recurrent respiratory failure and reintubation and discussed with the patiet's family. * Monitor off abx * Good pulmonary hygiene: duonebs and mucomyst q4 * Discussed with patient's outpatient primary, Dr. Oliveros. She had recurrent PE as outpatient. Will resume eliquis 5 mg bid and monitor H/H * VSS tomorrow * Unclear if will be able to transfer to [facility] as no bed available there Respiratory: monitor respiratory rate Cardiac: continue to monitor HR/BP Renal: F/U I&O Gastrointestinal: continue feedings/current rate Hematologic: monitor H/H Disposition: keep in ICU Time Spent (Minutes): 40 - cc Discussed with: nurses Critical Care - Objective Last 24 Hour Vital Signs Date Time Temp Pulse Resp B/P (MAP) Pulse Ox O2 Delivery O2 Flow Rate FiO2 08/12/19 17:00 102 23 113/64 (80) 98 08/12/19 16:00 Nasal Cannula 4.0 Nasal Cannula 4.0 08/12/19 16:00 99.7 104 23 104/61 (75) 80 08/12/19 16:00 4.0 08/12/19 15:49 103 08/12/19 15:11 95 23 99 Nasal Cannula 4.0 36 95 25 95 08/12/19 15:00 92 22 114/75 (88) 94 08/12/19 14:00 93 22 110/78 (89) 96 08/12/19 13:00 94 22 103/63 (76) 90 08/12/19 12:00 2.0 08/12/19 12:00 99.2 93 21 106/62 (77) 94 08/12/19 12:00 Nasal Cannula 2.0 Bi-pap 08/12/19 11:32 97 08/12/19 11:15 95 24 95 Nasal Cannula 4.0 36 86 26 94 08/12/19 11:00 86 22 116/74 (88) 93 08/12/19 10:00 79 20 119/69 (86) 97 08/12/19 09:00 85 23 120/73 (89) 97 08/12/19 08:44 81 19 94 Full Face 40 08/12/19 08:09 75 08/12/19 08:00 45 08/12/19 08:00 Bi-pap Bi-pap 08/12/19 08:00 98.8 72 14 119/67 (84) 95 08/12/19 07:00 82 20 98 Full Face 40 81 21 99 Bi-Pap 40 08/12/19 07:00 73 15 84/51 (62) 98 08/12/19 06:00 74 14 90/56 (67) 91 08/12/19 06:00 45 08/12/19 05:29 79 16 95 Full Face 30 08/12/19 05:00 79 20 103/61 (75) 95 08/12/19 04:00 55 08/12/19 04:00 78 08/12/19 04:00 99.0 83 22 127/78 (94) 99 08/12/19 04:00 Bi-pap Bi-pap 08/12/19 03:09 78 16 100 Full Face 50 74 14 99 Bi-Pap 08/12/19 03:00 73 17 86/52 (63) 96 08/12/19 02:00 74 14 103/62 (76) 95 08/12/19 02:00 65 08/12/19 01:10 85 23 95 Full Face 60 08/12/19 01:00 87 14 117/75 (89) 92 08/12/19 00:00 75 08/12/19 00:00 Bi-pap Bi-pap 08/12/19 00:00 83 08/12/19 00:00 98.9 88 20 114/62 (79) 96 08/11/19 23:17 88 16 99 Full Face 85 92 17 100 08/11/19 23:00 91 21 107/65 (79) 100 08/11/19 22:00 95 21 92/65 (74) 100 08/11/19 21:26 88 17 95 Facial 85 08/11/19 21:00 90 20 103/63 (76) 94 08/11/19 21:00 85 08/11/19 20:00 Bi-pap Bi-pap 08/11/19 20:00 87 08/11/19 20:00 100 08/11/19 20:00 99.3 86 21 112/71 (85) 100 08/11/19 19:14 76 20 99 Facial 100 95 20 99 Bi-Pap 100 08/11/19 19:00 77 20 105/69 (81) 100 08/11/19 18:00 87 20 121/82 (95) 93 Status: awake Condition: improving HEENT: atraumatic Lungs: clear Heart: HR/BP stable Abdomen: soft, non-tender Extremities: no C/C/E Accucheck: 114 Critical Care - Subjective ROS Limited/Unobtainable: Yes Interval Events: Extubated yesterday afternoon, bipap overnight. Tolerating nasal cannula during the day with normal pH and pCO2 on ABG. VSS planned tomorrow. FI02: 40 Vent Support Breath Rate: 16 Vent Support Mode: BiLevel Vent Tidal Volume: 400 Sputum Amount: None PEEP: 5.0 PIP: 22 Tube Feeding Amount: 45 I&O: Intake and Output 08/11/19 08/12/19 19:00 07:00 Intake Total 290 ml 355 ml Output Total 735 ml 640 ml Balance -445 ml -285 ml Intake Free Water 110 ml IV Total 355 ml Tube Feeding 180 ml Output Urine Total 735 ml 640 ml ET-Tube: 7.5 ET Position: 23 Walker Bonilla MD Aug 12, 2019 18:00
[2019-08-12] MEDS: Eliquis 5mg tablet ORAL SCH (18:53)
--- NOTE | 2019-08-12 19:05 | NUR ---
HAND-OFF: Report given to EMMA Giordano.
--- NOTE | 2019-08-12 19:24 | NUR ---
NURSE NOTES: SBAR from Caitlin CARTER. Patient is awake and able to follow simple commands. Patient is verbal sometimes. Vitals are stable at this time. Patient is currently on nasal cannula at 4L with Spo2 of >95%, breathing pattern in normal and patient is able to cough and expectorate sputum spontaneously . JASON PICC line noted, NS TKO. p200 mattress noted. Vital AF at 45ml/hr, via OGT, suprapubic catheter noted.No respiratory distress at this time.
--- NOTE | 2019-08-12 20:00 | NUR ---
NURSE NOTES: Repositioned naso and oral suctioned Patient is congested Is able to follow commands Alert and oriented Tolerating feeds.
[2019-08-12] MEDS: Dyna-Hex 2% Top Sol 2oz TOPIC SCH (20:26)
--- NOTE | 2019-08-12 22:00 | NUR ---
NURSE NOTES: Repositioned oral and nasal suctioned Vitals remains stable afebrile NAD Awake and following commands
--- NOTE | 2019-08-12 22:17 | NUR ---
RESPIRATORY NOTE:placed pt on bipap settings 15/8 bur 14, FiO2 40%. pt tolerating so far. no s/s of respiratory distress noted. pt has full facial mask , no s/s of redness noted. bipap is plugged into red outlet, alarms are on and audible. will continue to monitor pt. EMMA Giordano notified.
--- NOTE | 2019-08-12 23:00 | NUR ---
NURSE NOTES: Feeds held while on BIPAP.
[2019-08-13] VITALS (24 sets, daily range): BP systolic 103–132; BP diastolic 59–92
--- NOTE | 2019-08-13 | NUR ---
NURSE NOTES: Repositioned On bipap saturating > 95% No acute distress No BM yet. Remains awake and alert.
--- NOTE | 2019-08-13 02:00 | NUR ---
NURSE NOTES: Repositioned Vitals stable On bipap SpO2 remaining above 93% Normal work of breathing
[2019-08-13] MEDS: Albuterol/Ipratropium 3ml neb HHN SCH ×6 (03:26→22:26)
[2019-08-13] MEDS: Acetylcysteine 20% Soln 4ml HHN SCH ×6 (03:26→22:26)
--- NOTE | 2019-08-13 04:00 | NUR ---
NURSE NOTES: Bathed Oral care given PICC dressing changed On Bipap Work of breathing normal Oral and nasal suctioned No distress at this time VSS.
--- NOTE | 2019-08-13 06:00 | NUR ---
NURSE NOTES: Restarted Feeds NC at 4L SpO2 >03% Breathing pattern normal NAD, VSS, Afebrile
[2019-08-13 06:49] LABS: ANION GAP 9 mmol/L (5-15); BLOOD UREA NITROGEN 20 mg/dL (7-18); CALCIUM 8.9 MG/DL (8.5-10.1); CARBON DIOXIDE 31 MMOL/L (21-32); CHLORIDE 102 MMOL/L (98-107); CREATININE 0.3 MG/DL (0.55-1.30); POTASSIUM 3.1 MMOL/L (3.5-5.1); SODIUM 142 MMOL/L (136-145)
--- NOTE | 2019-08-13 07:09 | NUR ---
HAND-OFF: Report given to Leilani CARTER.
--- NOTE | 2019-08-13 07:10 | NUR ---
NURSE NOTES: Received patient in bed. In no apparent distress. RT at bedside. On continuous OGT per order, on nasal cannula at 4LPM. Suprapubic cath noted. Bed in lowest position. Left upper PICC inplace. Contact isolation observed. Will continue plan of care.
[2019-08-13] MEDS: Eliquis 5mg tablet ORAL SCH ×2 (08:36→18:00)
[2019-08-13] MEDS: Pantoprazole Inj IV SCH (08:36)
--- NOTE | 2019-08-13 10:08 | General Progress Note ---
Assessment/Plan Problem List: (1) Spina bifida ICD Codes: Q05.9 - Spina bifida, unspecified SNOMED: [id number] Qualifiers: Qualified Codes: Q05.4 - Unspecified spina bifida with hydrocephalus (2) Respiratory failure with hypoxia ICD Codes: J96.91 - Respiratory failure, unspecified with hypoxia SNOMED: [id number] Qualifiers: Qualified Codes: J96.21 - Acute and chronic respiratory failure with hypoxia (3) Dysphagia ICD Codes: R13.10 - Dysphagia, unspecified SNOMED: 22528847, [id number] Status: unchanged Assessment/Plan: extubated ppi repeat labs fu H&H NGTF on hold s/p unit PRBC this week stool ob neg x1 reglan family wants to transfer the patient to [facility] and refusing PEG here at [facility] pending repeat swallow eval for today Subjective ROS Limited/Unobtainable: No Allergies: Coded Allergies: PENICILLIN G (Verified Allergy, Unknown, 12/02/18) Tolerates cabapenem, cephalosporin PENICILLINS (Unverified Allergy, Unknown, 12/02/18) Objective Last 24 Hour Vital Signs Date Time Temp Pulse Resp B/P (MAP) Pulse Ox O2 Delivery O2 Flow Rate FiO2 08/13/19 08:00 Nasal Cannula 4.0 Nasal Cannula 4.0 08/13/19 08:00 98.7 106 16 106/65 (79) 89 08/13/19 08:00 4.0 08/13/19 07:27 110 08/13/19 07:18 105 24 97 Nasal Cannula 4.0 36 105 24 97 08/13/19 07:00 96 15 106/72 (83) 97 08/13/19 06:00 98 16 103/59 (74) 94 08/13/19 05:15 101 22 96 36 08/13/19 05:00 102 20 132/78 (96) 79 08/13/19 04:00 40 08/13/19 04:00 93 08/13/19 04:00 Bi-pap Bi-pap 08/13/19 04:00 98.6 87 20 125/85 (98) 93 08/13/19 03:27 85 15 95 Full Face 40 85 16 95 Bi-Pap 40 08/13/19 03:00 87 19 122/75 (91) 93 08/13/19 02:00 87 16 110/70 (83) 90 08/13/19 01:15 87 19 93 Full Face 40 08/13/19 01:00 89 20 115/74 (88) 93 08/13/19 00:00 Bi-pap Bi-pap 08/13/19 00:00 90 08/13/19 00:00 40 08/13/19 00:00 99.1 90 22 110/76 (87) 95 08/12/19 23:00 84 15 101/61 (74) 97 08/12/19 23:00 84 16 95 Full Face 40 87 16 95 Bi-Pap 40 08/12/19 22:30 40 08/12/19 22:13 97 20 95 Full Face 40 08/12/19 22:00 97 23 115/78 (90) 95 08/12/19 21:00 96 26 120/77 (91) 96 08/12/19 20:00 98.3 96 20 103/64 (77) 94 08/12/19 20:00 Nasal Cannula 4.0 Nasal Cannula 4.0 08/12/19 20:00 95 08/12/19 20:00 4.0 08/12/19 19:38 96 21 97 Nasal Cannula 4.0 36 97 22 92 08/12/19 19:00 96 23 130/80 (97) 94 08/12/19 18:00 100 23 100/58 (72) 94 08/12/19 17:00 102 23 113/64 (80) 98 08/12/19 16:00 Nasal Cannula 4.0 Nasal Cannula 4.0 08/12/19 16:00 99.7 104 23 104/61 (75) 80 08/12/19 16:00 4.0 08/12/19 15:49 103 08/12/19 15:11 95 23 99 Nasal Cannula 4.0 36 95 25 95 08/12/19 15:00 92 22 114/75 (88) 94 08/12/19 14:00 93 22 110/78 (89) 96 08/12/19 13:00 94 22 103/63 (76) 90 08/12/19 12:00 2.0 08/12/19 12:00 99.2 93 21 106/62 (77) 94 08/12/19 12:00 Nasal Cannula 2.0 Bi-pap 08/12/19 11:32 97 1/21/20 11:15 95 24 95 Nasal Cannula 4.0 36 86 26 94 08/12/19 11:00 86 22 116/74 (88) 93 Intake and Output 08/12/19 08/13/19 19:00 07:00 Intake Total 265 ml 225 ml Output Total 545 ml 485 ml Balance -280 ml -260 ml Tube Feeding 45 ml 225 ml Other 220 ml Output Urine Total 545 ml 485 ml Laboratory Tests 08/12/19 16:05: Arterial Blood pH 7.382, Arterial Blood Partial Pressure CO2 42.4, Arterial Blood Partial Pressure O2 71.4L, Arterial Blood HCO3 24.6, Arterial Blood Oxygen Saturation 91.9L, Arterial Blood Base Excess -0.5, Gerard Test Positive 08/13/19 04:00: White Blood Count [Pending], Red Blood Count [Pending], Hemoglobin [Pending], Hematocrit [Pending], Mean Corpuscular Volume [Pending], Mean Corpuscular Hemoglobin [Pending], Mean Corpuscular Hemoglobin Concent [Pending], Red Cell Distribution Width [Pending], Platelet Count [Pending], Mean Platelet Volume [ Pending], Neutrophils (%) (Auto) [Pending], Lymphocytes (%) (Auto) [Pending], Monocytes (%) (Auto) [Pending], Eosinophils (%) (Auto) [Pending], Basophils (%) (Auto) [Pending], Sodium Level 142, Potassium Level 3.1L, Chloride Level 102, Carbon Dioxide Level 31, Anion Gap 9, Blood Urea Nitrogen 20H, Creatinine 0.3L, Estimat Glomerular Filtration Rate > 60, Glucose Level 91, Calcium Level 8.9 Height (Feet): 4 Height (Inches): 10.00 Weight (Pounds): 135 General Appearance: lethargic EENT: normal ENT inspection Neck: supple Cardiovascular: normal rate Respiratory/Chest: decreased breath sounds Abdomen: normal bowel sounds, non tender, soft Extremities: non-tender Tim Davis MD Aug 13, 2019 10:08
--- NOTE | 2019-08-13 11:55 | NUR ---
NURSE NOTES: RT at bedside. Patient refused to be suctioned. Risk and benefits explained.
--- NOTE | 2019-08-13 12:00 | NUR ---
NURSE NOTES: Patient pulled out OGT. Informed Dr. Davis, awaiting for response.
--- NOTE | 2019-08-13 12:55 | NUR ---
NURSE NOTES: Dr. Davis in the unit. Informed him again that patient pulled our OGT. And refusing suction. No new order at this time.
--- NOTE | 2019-08-13 15:26 | NUR ---
NURSE NOTES: Dr. Bonilla came to see patient- updated with patient's condition - aware of lab. results- with new order give.He spoke with patient's family members regarding patient's status and discussed plan of care
--- NOTE | 2019-08-13 15:33 | Pulmonolgy Critical Care Note ---
Critical Care - Asmt/Plan Assessment/Plan: (1) Pneumonia of both lower lobes Assessment & Plan: VDRF, intubated 07/12/19, S/P FOB 07/12/19; Reintubated ; extubated 08/11/19 (2) Catheter-associated urinary tract infection Assessment & Plan: PsA and proteus - s/p treatment (3) Respiratory failure with hypoxia Assessment & Plan: Acute on chronic hypercapnic and hypoxemic RF 2/2 PNA Duplex neg, minimally elevated d-dimer, unlikely VTE and already on a NOAC (4) HCAP (healthcare-associated pneumonia) (5) Paraplegia (6) Sepsis (7) Suprapubic catheter (8) Restrictive lung disease due to kyphoscoliosis (9) Decubitus skin ulcer (10) Spina bifida (11) Anemia, acute (12) hx recurrent PE on eliquis Plan: * BiPAP qhs and prn * High risk for recurrent respiratory failure and reintubation and discussed with the patiet's family. * Monitor off abx * Good pulmonary hygiene: duonebs and mucomyst q4 * Replete electrolytes * Discussed with patient's outpatient primary, Dr. Oliveros. She had recurrent PE as outpatient. Cont eliquis 5 mg bid and monitor H/H * VSS pending Time Spent (Minutes): 40 - cc Critical Care - Objective Last 24 Hour Vital Signs Date Time Temp Pulse Resp B/P (MAP) Pulse Ox O2 Delivery O2 Flow Rate FiO2 08/13/19 15:00 94 19 107/67 (80) 95 08/13/19 14:00 103 20 115/71 (86) 93 08/13/19 13:00 106 19 112/67 (82) 93 08/13/19 12:05 112 08/13/19 12:00 Nasal Cannula 4.0 Nasal Cannula 4.0 08/13/19 12:00 4.0 08/13/19 12:00 98.6 110 20 114/81 (92) 90 08/13/19 11:32 107 23 98 Nasal Cannula 4.0 36 105 23 100 08/13/19 11:00 100 19 111/68 (82) 95 08/13/19 10:00 102 21 112/69 (83) 92 08/13/19 09:00 104 17 112/69 (83) 89 08/13/19 08:00 Nasal Cannula 4.0 Nasal Cannula 4.0 08/13/19 08:00 98.7 106 16 106/65 (79) 89 08/13/19 08:00 4.0 08/13/19 07:27 110 08/13/19 07:18 105 24 97 Nasal Cannula 4.0 36 105 24 97 08/13/19 07:00 96 15 106/72 (83) 97 08/13/19 06:00 98 16 103/59 (74) 94 08/13/19 05:15 101 22 96 36 08/13/19 05:00 102 20 132/78 (96) 79 08/13/19 04:00 40 08/13/19 04:00 93 08/13/19 04:00 Bi-pap Bi-pap 08/13/19 04:00 98.6 87 20 125/85 (98) 93 08/13/19 03:27 85 15 95 Full Face 40 85 16 95 Bi-Pap 40 08/13/19 03:00 87 19 122/75 (91) 93 08/13/19 02:00 87 16 110/70 (83) 90 08/13/19 01:15 87 19 93 Full Face 40 08/13/19 01:00 89 20 115/74 (88) 93 08/13/19 00:00 Bi-pap Bi-pap 08/13/19 00:00 90 08/13/19 00:00 40 08/13/19 00:00 99.1 90 22 110/76 (87) 95 08/12/19 23:00 84 15 101/61 (74) 97 08/12/19 23:00 84 16 95 Full Face 40 87 16 95 Bi-Pap 40 08/12/19 22:30 40 08/12/19 22:13 97 20 95 Full Face 40 08/12/19 22:00 97 23 115/78 (90) 95 08/12/19 21:00 96 26 120/77 (91) 96 08/12/19 20:00 98.3 96 20 103/64 (77) 94 08/12/19 20:00 Nasal Cannula 4.0 Nasal Cannula 4.0 08/12/19 20:00 95 08/12/19 20:00 4.0 08/12/19 19:38 96 21 97 Nasal Cannula 4.0 36 97 22 92 08/12/19 19:00 96 23 130/80 (97) 94 08/12/19 18:00 100 23 100/58 (72) 94 08/12/19 17:00 102 23 113/64 (80) 98 08/12/19 16:00 Nasal Cannula 4.0 Nasal Cannula 4.0 08/12/19 16:00 99.7 104 23 104/61 (75) 80 08/12/19 16:00 4.0 08/12/19 15:49 103 Status: awake Condition: improving HEENT: atraumatic Neck: full ROM Lungs: clear Heart: HR/BP stable Abdomen: soft, non-tender Extremities: other - contracted extremities Accucheck: 114 Critical Care - Subjective ROS Limited/Unobtainable: Yes Interval Events: Pulled out OG tube. Waiting on VSS. 4L nasal cannula. FI02: 36 Vent Support Breath Rate: 16 Vent Support Mode: BiLevel Vent Tidal Volume: 400 Sputum Amount: None PEEP: 5.0 PIP: 22 I&O: Intake and Output 08/12/19 08/13/19 19:00 07:00 Intake Total 265 ml 225 ml Output Total 545 ml 485 ml Balance -280 ml -260 ml Tube Feeding 45 ml 225 ml Other 220 ml Output Urine Total 545 ml 485 ml ET-Tube: 7.5 ET Position: 23 Walker Bonilla MD Aug 13, 2019 15:33
[2019-08-13 16:35] LABS: HEMOGLOBIN 10.7 G/DL (12.0-16.0); RED BLOOD COUNT 4.62 M/UL (4.20-5.40); WHITE BLOOD COUNT 12.4 K/UL (4.8-10.8)
[2019-08-13 16:36] LABS: MEAN CORPUSCULAR VOLUME 80 FL (80-99); PLATELET COUNT 387 K/UL (150-450); RED CELL DISTRIBUTION WIDTH 24.7 % (11.6-14.8)
[2019-08-13 16:37] LABS: EOSINOPHILS % (AUTO) 3.5 % (0.0-3.0); LYMPHOCYTES % (AUTO) 17.2 % (20.0-45.0); MONOCYTES % (AUTO) 5.3 % (1.0-10.0)
--- NOTE | 2019-08-13 16:37 | NUR ---
ST NOTES: SWALLOW STATUS: PER RN, THE PATIENT IS VERY CONGESTED AND NEEDS DEEP NASAL SUCTION FROM THE RTS (SHE IS REFUSING THIS). THE PATIENT IS NOT STABLE FOR MODIFIED BARIUM SWALLOW STUDY TODAY. PLAN: F/UP FOR MBSS READINESS
--- NOTE | 2019-08-13 19:10 | NUR ---
HAND-OFF: Report given to Jillian Thomas RN.
--- NOTE | 2019-08-13 19:11 | NUR ---
NURSE NOTES: Received patient from EMMA [facility]. Will continue plan of care.
--- NOTE | 2019-08-13 19:27 | Internal Med Progress Note ---
Subjective Date of Service: Aug 13, 2019 Physician Name LluviaNiraj Attending Physician Wil Masters MD Current Medications Medications (Trade) Dose Ordered Sig/Sandeep Route PRN Reason Start Time Stop Time Status Last Admin Dose Admin Acetylcysteine (Mucomyst) 400 mg Q4HRT [facility] 08/01/19 11:00 08/16/19 18:59 08/13/19 19:15 Albuterol/ Ipratropium (Albuterol/ Ipratropium) 3 ml Q4HRT N 08/12/19 11:00 08/17/19 10:59 08/13/19 19:15 Apixaban (Eliquis) 5 mg BID ORAL 08/12/19 18:00 09/11/19 17:59 08/13/19 08:36 Chlorhexidine Gluconate (Debora-Hex 2%) 1 applic DAILY@1999 TOPIC 07/31/19 20:00 08/13/19 19:59 08/12/19 20:26 Metoclopramide HCl (Reglan) 5 mg Q6H PRN IVP Nausea & Vomiting 08/04/19 10:00 09/03/19 09:59 Pantoprazole (Protonix) 40 mg DAILY IV 08/01/19 09:00 08/31/19 08:59 08/13/19 08:36 Potassium Chloride 100 ml @ 50 mls/hr Q2H IVPB 08/13/19 18:00 08/13/19 21:59 08/13/19 18:08 Allergies: Coded Allergies: PENICILLIN G (Verified Allergy, Unknown, 12/02/18) Tolerates cabapenem, cephalosporin PENICILLINS (Unverified Allergy, Unknown, 12/02/18) ROS Limited/Unobtainable: Yes Subjective 49 YO F with pneumonia and respiratory failure. Extubated 08/11/19. Cover for Int Med-DR Mastres. ICU. Tolerating nasal canula Objective Last Vital Signs Date Time Temp Pulse Resp B/P (MAP) Pulse Ox O2 Delivery O2 Flow Rate FiO2 08/13/19 19:15 104 22 97 Nasal Cannula 4.0 36 106 22 94 08/13/19 19:00 120/92 (101) 08/13/19 16:00 98.5 Laboratory Tests Test 08/13/19 04:00 White Blood Count 12.4 K/UL (4.8-10.8) H Red Blood Count 4.62 M/UL (4.20-5.40) Hemoglobin 10.7 G/DL (12.0-16.0) L Hematocrit 37.0 % (37.0-47.0) Mean Corpuscular Volume 80 FL (80-99) Mean Corpuscular Hemoglobin 23.2 PG (27.0-31.0) L Mean Corpuscular Hemoglobin Concent 28.9 G/DL (32.0-36.0) L Red Cell Distribution Width 24.7 % (11.6-14.8) H Platelet Count 387 K/UL (150-450) Mean Platelet Volume Pending Neutrophils (%) (Auto) 73.0 % (45.0-75.0) Lymphocytes (%) (Auto) 17.2 % (20.0-45.0) L Monocytes (%) (Auto) 5.3 % (1.0-10.0) Eosinophils (%) (Auto) 3.5 % (0.0-3.0) H Basophils (%) (Auto) % (0.0-2.0) Sodium Level 142 MMOL/L (136-145) Potassium Level 3.1 MMOL/L (3.5-5.1) L Chloride Level 102 MMOL/L (98-107) Carbon Dioxide Level 31 MMOL/L (21-32) Anion Gap 9 mmol/L (5-15) Blood Urea Nitrogen 20 mg/dL (7-18) H Creatinine 0.3 MG/DL (0.55-1.30) L Estimat Glomerular Filtration Rate > 60 mL/min (>60) Glucose Level 91 MG/DL (74-106) Calcium Level 8.9 MG/DL (8.5-10.1) Magnesium Level 2.0 MG/DL (1.8-2.4) Intake and Output 08/12/19 08/13/19 19:00 07:00 Intake Total 265 ml 225 ml Output Total 545 ml 485 ml Balance -280 ml -260 ml Tube Feeding 45 ml 225 ml Other 220 ml Output Urine Total 545 ml 485 ml Objective General Appearance: WD/WN, moderate distress EENT: PERRL/EOMI, normal ENT inspection Neck: non-tender, normal alignment, supple Cardiovascular: normal peripheral pulses, normal rate, regular rhythm, no gallop/murmur, no JVD Respiratory/Chest: Nasal canula; crackles/rales, rhonchi - bilaterally, expiratory wheezing Abdomen: normal bowel sounds, non tender, soft, no organomegaly, no mass Skin: normal pigmentation, warm/dry Assessment/Plan Problem List: (1) Respiratory failure with hypoxia Assessment & Plan: S/P extubation 08/11/19 per pulmonary=Dr Bonilla (2) Pneumonia of both lower lobes Assessment & Plan: See ID note. Continue meropenem and zyvox (3) UTI (urinary tract infection) Assessment & Plan: Pseudamonas, ESBL E. Coli, and vanco resistant enterococcus. See ID=Dr Sanabria. S/P meropenem, linezolid and micafugin (4) Sepsis (5) Paraplegia (6) Spina bifida Niraj Teixeira MD Aug 13, 2019 19:27
--- NOTE | 2019-08-13 20:00 | NUR ---
NURSE NOTES: Patient is awake, alert and oriented x2. On 2L nasal cannula O2 saturating at 92%. NPO at the moment, preparing for video swallow in the AM. Patient is tachycardic at 111bpm but has been tachy throughout the day. Otherwise vital signs are stable. Currently 20meq kcl running via left upper arm PICC, will infuse another 20meq kcl when 1st bag is finished. Safety measures in place; bed low, locked and alarm is on. Will continue plan of care.
[2019-08-13] MEDS: Dyna-Hex 2% Top Sol 2oz TOPIC SCH (20:32)
--- NOTE | 2019-08-13 22:00 | NUR ---
NURSE NOTES: Patient is sleeping comfortably. Remains on 4L nasal cannula and saturating well at 98%. Vital signs are stable, HR at 101bpm at the moment. 40meq kcl infused via left upper arm PICC. No signs of distress. Safety measures in place. Will continue to monitor.
[2019-08-14] VITALS (24 sets, daily range): BP systolic 107–140; BP diastolic 49–90
--- NOTE | 2019-08-14 | NUR ---
NURSE NOTES: Patient placed on BiPAP 15/8 40% O2 saturation of 92%. Tachycardic HR of 103bmp. Turned and repositioned. Will continue plan of care.
--- NOTE | 2019-08-14 02:00 | NUR ---
NURSE NOTES: Patient is sleeping comfortably on BiPAP. O2 saturating at 98%. Shows no signs of pain or distress. Safety measures in place. Will continue plan of care.
[2019-08-14] MEDS: Acetylcysteine 20% Soln 4ml HHN SCH ×6 (02:44→23:46)
[2019-08-14] MEDS: Albuterol/Ipratropium 3ml neb HHN SCH ×6 (02:44→23:46)
--- NOTE | 2019-08-14 04:00 | NUR ---
NURSE NOTES: Patient remains on BiPAP 15/8 40% comfortably. Turned and repositioned. Will continue plan of care.
--- NOTE | 2019-08-14 06:00 | NUR ---
NURSE NOTES: Patient placed back on 4L nasal cannula. O2 saturating 96%. No signs of distress.
--- NOTE | 2019-08-14 06:20 | NUR ---
NURSE NOTES: Patient's brother Quinn called for update. Also request to be called when patient's is to have video swallow. Will endorse to incoming nurse.
--- NOTE | 2019-08-14 07:10 | NUR ---
HAND-OFF: Report given to EMMA [facility].
--- NOTE | 2019-08-14 07:11 | NUR ---
NURSE NOTES: Late entry: PT and report received from EMMA [facility]; PT A/O x 2; quality assurance monitor final shows ST; received on 4L-NC saturating @ 91%; no S/S of respiratory distress noted during morning rounds with PM shift nurse; at times follows commands, observed removing oxygen; reorientation given; no restraints implemented; place oxygen back on; reported PT removed NGT yesterday, CN Arabella aware; PT received on NPO status; JASON-PICC remains patent flushes well intact; suprapubic catheter intact draining well; PT has swallow eval today requested by PT brother to call when swallow eval is to be done. Will continue with plan of care for PT.
[2019-08-14 07:17] LABS: ANION GAP 8 mmol/L (5-15); BLOOD UREA NITROGEN 20 mg/dL (7-18); CALCIUM 8.7 MG/DL (8.5-10.1); CARBON DIOXIDE 32 MMOL/L (21-32); CHLORIDE 108 MMOL/L (98-107); CREATININE 0.4 MG/DL (0.55-1.30); POTASSIUM 3.5 MMOL/L (3.5-5.1); SODIUM 148 MMOL/L (136-145)
[2019-08-14 07:59] LABS: EOSINOPHILS % (AUTO) 1.7 % (0.0-3.0); HEMATOCRIT 34.2 % (37.0-47.0); HEMOGLOBIN 10.8 G/DL (12.0-16.0); LYMPHOCYTES % (AUTO) 17.6 % (20.0-45.0); MEAN CORPUSCULAR VOLUME 76 FL (80-99); MONOCYTES % (AUTO) 6.6 % (1.0-10.0); NEUTROPHILS % (AUTO) 73.2 % (45.0-75.0); PLATELET COUNT 362 K/UL (150-450); RED BLOOD COUNT 4.52 M/UL (4.20-5.40); RED CELL DISTRIBUTION WIDTH 21.6 % (11.6-14.8); WHITE BLOOD COUNT 10.6 K/UL (4.8-10.8)
[2019-08-14] MEDS: Eliquis 5mg tablet ORAL SCH ×2 (09:00→18:00)
--- NOTE | 2019-08-14 09:00 | NUR ---
ST NOTES: REFERRED BY DR MAE FOR SWALLOW EVALUATION, SEE FULL REPORT. DYSPHAGIA RISK FACTORS FOR THIS 49 Y.O. ALBANIAN AND WELSH-SPEAKING FEMALE: ACUTE ISSUES: BILATERAL (LL) PNA AND (HCAP VERUS ASPIRATION RELATED), SEPSIS, RESP FAILURE WITH HYPOXIA DESAT TO 88%, INTUBATED 07/13-07/20/19, COPIOUS SECRETIONS NEEDS FREQUENT DEEP NASAL SUCTION (DISLIKES),RESP RATE RAPID TO ABOVE 25 BPM AND NEEDS BIPAP AT NIGHT (CPAP FOR SLEEP APNEA BEFORE). 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 DIABETES, SPINA BIFIDA, SCI AND PARAPLEGIA, H/O OROPHARYNGEAL DYSPHAGIA SINCE DID NOT EAT UNTIL SHE WAS 12 YEARS OLD, PNA (2 YEARS AGO HAD PNA IN 10/2016 AND PNEUMONITIS 02/2017, 07/11/19 AND 07/07/19 POSSIBLE PNA). LIVES AT HOME ? DIET. LAST ADMIT NOT SEEN BY MILL MACHINIST [place] [facility] [place]18 DOWNGRADED TO MECH SOFT CHOPPED AND THIN LIQUIDS. WHEN SEEN BY MILL MACHINIST 2 YEARS AGO 03/05/17 HAD PNEUMONITIS AND APPEARED TO HAVE A MILD OROPHARYNGEAL DYSPHAGIA AND CLEARED ON MECH SOFT FINELY CHOPPED. FAMILY NOT IN FAVOR OF NONORAL FEEDINGS AND UNABLE TO HAVE MOD BARIUM SWALLOW STUDY DUE TO SCHEDULE CONFLICTS. PATIENT NPO NOW AND HAS NGT FEEDINGS (12 FR NGT) WITH MILD ORAL SECRETIONS THAT REQUIRE SUCTIONING WHICH SHE DISLIKES. LATER HAD OGT AND PULLED 2 DAYS AGO. HAS DIABETES AND NEEDS NGT 12 STATELESS. ALERT AND ABLE TO COMMUNICATE SOME NEEDS IN ALBANIAN BUT MOD-SEVERE DYSPHONIA (VOICE BREATHY HOARSE) AND VERY DYSARTHRIC (IMPRECISE ARTICULATION). FOLLOWED SOME COMMANDS BUT SOMETIMES REFUSES PO TRIALS WITH MILL MACHINIST EVEN WHEN SPOKEN TO IN ALBANIAN. WILL HOLD ON PO TRIALS DUE TO FREQUENT NEED FOR OROPHARYNGEAL SUCTION. INITIAL IMPRESSIONS: HIGH RISK FOR PERSISTENT AND WORSENED OROPHARYNGEAL DYSPHAGIA WITH HIGH RISK FOR SILENT ASPIRATION GIVEN NEUROLOGICAL DX. HIGH RISK FOR POOR PO INTAKE (SOMETIMES REFUSING PO TRIALS) DYSPHAGIA FOR ORAL SECRETIONS AND NEEDED ORAL SUCTION OF MILD AMOUNTS OF SALIVA FROM BILATERAL CHEEKS AND BACK OF THROAT (PER STAFF PT NEEDS TRACH BUT FAMILY NOT RECEPTIVE TO TRACH) TONGUE SPEED MODERATELY SLOW AND WEAK AND POOR ROM FOR ELEVATION AND DEPRESSION. TONGUE DEVIATES SLIGHTLY LEFT WITH PROTRUSION. VOICE/COUGH WEAK AND LIPS ARE GROSSLY FUNCTIONAL (MILD RIGHT ASYMMETRY AND POSSIBLE WEAKNESS WITH RETRACTION). DIFFICULT TO VISUALIZE VELUM. GOOD DENTITION. RECOMMENDATIONS: CONTINUE WITH NPO AND NONORAL FEEDINGS (NGT) FOR NOW CONSIDER PEG NONORAL FEEDINGS (FAMILY NOT RECEPTIVE AT THIS TIME) SHE WILL LIKELY NOT TAKE IN ENOUGH OR WILL REFUSE PO (ADULT FTT) IRRELEVANT OF ASPIRATION AND SWALLOWING ISSUES. CONTINUE WITH ORAL CARE/SUCTION AND ASPIRATION PRECAUTIONS WITH NGT FEEDINGS PRN CONTINUE WITH SKILLED DYSPHAGIA MANAGEMENT AND TX AND [facility] EVAL/TX FOR COMMUNICATION TIPS EDUCATED/TRAINED CARDIOLOGY CONSULTANTS KEVIN IN POSTED ASP PREC WITH TF AND ORAL CARE AND OROPHARYNGEAL SUCTION NEEDS. CONSIDER MOD BARIUM SWALLOW STUDY ONLY WHEN PT RECEPTIVE TO PO TRIALS AND STABLE. PER RN, PATIENT NOT STABLE TO GO DOWN FOR MBSS AND STILL HAS COPIOUS SECRETIONS THAT SHE CANNOT CLEAR ON HER OWN. EMMA TUCKER TO TALK TO DR MONDRAGON REGARDING NEED FOR NGT AND HOLD ON MBSS FOR NOW. D/W PATIENT'S BROTHER THAT PATIENT MAY NOT BE STABLE FOR THIS PROCEDURE AND SHOULD HAVE NGT PLACED AT THIS TIME. Addendum: 08/19/19 at 1625 by JOSÉ JAMES MILL MACHINIST Addendum: 08/14/19 at 1021 by JOSÉ JAMES MILL MACHINIST PATIENT'S SISTER, HAMMAD, EXPLAINED THAT THE PATIENT LIKELY ASPIRATED WHEN SHE WAS AT THE SNF AND THE RETAIL SALES REPRESENTATIVE DID NOT FEED NOR POSITION HER APPROPRIATELY DURING HER MEALS. THE PT LATER CAME DOWN WITH A PNA. THE PATIENT HAD A MOD BARIUM SWALLOW STUDY AT [facility] LAST SUMMER 2018 BUT HER SISTER DID NOT RELAY THE RESULTS WHICH ARE NOT VALID REGARDING HER SWALLOWING ABILITIES NOW. HER SISTER WAS TOLD THAT THE PATIENT IS NOT YET READY FOR A REPEAT MBSS SINCE SHE CANNOT HANDLE HER OWN SECRETIONS. Addendum: 08/19/19 at 1623 by JOSÉ GIMENEZ
--- NOTE | 2019-08-14 09:30 | NUR ---
NURSE NOTES: Current Temp 100.5. Cooling measures initiated. Will continue to monitor.
--- NOTE | 2019-08-14 09:30 | NUR ---
NURSE NOTES: PT prior to breathing treatment no secretions or gurgling noted; post breathing treatment; gurgling is very pronounced. Called Sunni RT for suctioning and ABG orders. Will continue to monitor.
--- NOTE | 2019-08-14 09:43 | Pulmonolgy Critical Care Note ---
Critical Care - Asmt/Plan Assessment/Plan: (1) Pneumonia of both lower lobes Assessment & Plan: VDRF, intubated 07/12/19, S/P FOB 07/12/19; Reintubated ; extubated 08/11/19 (2) Catheter-associated urinary tract infection Assessment & Plan: PsA and proteus - s/p treatment (3) Respiratory failure with hypoxia Assessment & Plan: Acute on chronic hypercapnic and hypoxemic RF 2/2 PNA Duplex neg, minimally elevated d-dimer, unlikely VTE and already on a NOAC (4) HCAP (healthcare-associated pneumonia) (5) Paraplegia (6) Sepsis (7) Suprapubic catheter (8) Restrictive lung disease due to kyphoscoliosis (9) Decubitus skin ulcer (10) Spina bifida (11) Anemia, acute (12) hx recurrent PE on eliquis Plan: * NT suctionining important * NGT for feeds if possible * ABG and CXR now * Concern about reaspiration * Not able to have video swallow now due to above and refusing even bedside PO assessment * BiPAP qhs and prn * High risk for recurrent respiratory failure and reintubation and discussed with the patiet's family previously * Monitor off abx * Good pulmonary hygiene: duonebs and mucomyst q4 * Discussed with patient's outpatient primary, Dr. Oliveros. She had recurrent PE as outpatient. Cont eliquis 5 mg bid and monitor H/H Respiratory: CXR, ABG Cardiac: continue to monitor HR/BP Renal: F/U I&O Hematologic: monitor H/H Time Spent (Minutes): 40 - cc Discussed with: nurses Critical Care - Objective Last 24 Hour Vital Signs Date Time Temp Pulse Resp B/P (MAP) Pulse Ox O2 Delivery O2 Flow Rate FiO2 08/14/19 07:37 101 18 99 Bi-Pap 40 114 26 94 08/14/19 07:00 105 14 111/65 (80) 89 08/14/19 06:00 102 23 123/60 (81) 96 08/14/19 05:00 93 19 117/65 (82) 98 08/14/19 04:00 40 08/14/19 04:00 98.8 94 15 107/66 (80) 97 08/14/19 04:00 Bi-pap 4.0 Nasal Cannula 08/14/19 03:18 102 08/14/19 03:00 105 17 111/68 (82) 92 08/14/19 02:45 99 17 98 Facial 40 99 17 98 Bi-Pap 40 08/14/19 02:44 101 18 99 Bi-Pap 40 99 17 98 08/14/19 02:00 108 18 122/81 (95) 98 08/14/19 01:14 102 18 96 Facial 40 08/14/19 01:00 102 18 111/70 (84) 92 08/14/19 00:00 99.9 105 24 136/67 (90) 92 08/14/19 00:00 Bi-pap 4.0 Nasal Cannula 08/13/19 23:21 103 08/13/19 23:00 105 19 127/78 (94) 88 08/13/19 22:40 106 22 94 Full Face 40 08/13/19 22:26 103 23 99 Nasal Cannula 4.0 36 104 22 95 08/13/19 22:00 103 24 115/68 (84) 99 08/13/19 21:00 105 23 114/77 (89) 92 08/13/19 20:00 99.3 112 17 122/61 (81) 92 08/13/19 20:00 Nasal Cannula 4.0 Nasal Cannula 4.0 08/13/19 20:00 4.0 08/13/19 19:47 113 08/13/19 19:15 104 22 97 Nasal Cannula 4.0 36 106 22 94 08/13/19 19:00 108 20 120/92 (101) 94 08/13/19 18:00 103 25 111/72 (85) 95 08/13/19 17:00 111 25 114/70 (85) 94 08/13/19 16:00 4.0 08/13/19 16:00 Nasal Cannula 4.0 Nasal Cannula 4.0 08/13/19 16:00 98.5 100 24 119/72 (88) 93 08/13/19 15:44 100 08/13/19 15:00 94 19 107/67 (80) 95 08/13/19 14:00 103 20 115/71 (86) 93 08/13/19 13:00 106 19 112/67 (82) 93 08/13/19 12:05 112 08/13/19 12:00 Nasal Cannula 4.0 Nasal Cannula 4.0 08/13/19 12:00 4.0 08/13/19 12:00 98.6 110 20 114/81 (92) 90 08/13/19 11:32 107 23 98 Nasal Cannula 4.0 36 105 23 100 08/13/19 11:00 100 19 111/68 (82) 95 08/13/19 10:00 102 21 112/69 (83) 92 Status: awake HEENT: atraumatic Lungs: rales Heart: HR/BP stable Abdomen: soft, non-tender Extremities: other - no edema Accucheck: 114 Critical Care - Subjective ROS Limited/Unobtainable: Yes Interval Events: Increased secretions. Refusing NT suctioning. Increased oxygen needs. Refusing PO trials. No video swallow now due to these issues. Condition: other - some deterioration EKG Rhythm: Sinus Rhythm FI02: 40 Vent Support Breath Rate: 16 Vent Support Mode: BiLevel Vent Tidal Volume: 400 Sputum Amount: Small PEEP: 5.0 PIP: 22 I&O: Intake and Output 08/13/19 08/14/19 19:00 07:00 Intake Total 180 ml 50 ml Output Total 410 ml 600 ml Balance -230 ml -550 ml IV Total 50 ml Tube Feeding 180 ml Output Urine Total 410 ml 600 ml ET-Tube: 7.5 ET Position: 23 Walker Bonilla MD Aug 14, 2019 09:43
--- NOTE | 2019-08-14 09:45 | NUR ---
NURSE NOTES: NURSE NOTES: MD Irene made rounds, updates given in regards to PT; requested ABG & CXR results to be reported back once results are up. Will continue to monitor PT.
[2019-08-14] MEDS: Pantoprazole Inj IV SCH (10:12)
--- NOTE | 2019-08-14 10:52 | NUR ---
RADIOLOGY DEPT., CHEST X-RAY DONE.-P.DYE
--- NOTE | 2019-08-14 11:39 | NUR ---
NURSE NOTES: PT on bipap 15/8 @ 55% fio2 saturating at 94%. Will continue to monitor PT.
--- NOTE | 2019-08-14 12:05 | NUR ---
NURSE NOTES: Report received from EMMA Singh. Patient received on continuous BIPAP 15/8 and on 55% FiO2, O2Sat 94%. Patient is repetitive when speaking; however, able to follow simple commands. Suprapubic catheter is noted and draining urine to urometer. P200 mattress noted, wounds noted. JASON PICC line intact and patent, dressing clean, dry and intact. No acute distress noted, will resume plan of care.
--- NOTE | 2019-08-14 12:10 | GI Progress Note ---
Assessment/Plan Problems: (1) Paraplegia ICD Codes: G82.20 - Paraplegia, unspecified SNOMED: 38127316 (2) At risk for aspiration pneumonia ICD Codes: Z91.89 - Other specified personal risk factors, not elsewhere classified SNOMED: 246024324 Status: unchanged Status Narrative Discussed with Dr. Davis. Assessment/Plan extubated, bipap ppi repeat labs fu H&H NGTF on hold s/p unit PRBC this week stool ob neg x1 reglan family wants to transfer the patient to [facility] and refusing PEG here at [place] pending repeat swallow eval for today The patient was seen and examined at bedside and all new and available data was reviewed in the patients chart. I agree with the above findings, impression and plan. (Patient seen earlier today. Signature stamp does not reflect patient encounter time.). - Tim Davis MD Subjective Subjective SOB Objective Last 24 Hour Vital Signs Date Time Temp Pulse Resp B/P (MAP) Pulse Ox O2 Delivery O2 Flow Rate FiO2 08/14/19 11:00 101 15 98 Bi-Pap 50 113 20 93 08/14/19 11:00 104 17 112/52 (72) 91 08/14/19 10:39 112 19 93 Facial 50 08/14/19 10:00 114 25 122/81 (95) 95 08/14/19 09:00 114 21 118/70 (86) 91 08/14/19 08:00 4.0 08/14/19 08:00 100.5 124 20 122/49 (73) 90 08/14/19 08:00 Nasal Cannula 4.0 Nasal Cannula 4.0 08/14/19 08:00 118 08/14/19 07:37 101 18 99 Bi-Pap 40 114 26 94 08/14/19 07:00 105 14 111/65 (80) 89 08/14/19 06:00 102 23 123/60 (81) 96 08/14/19 05:00 93 19 117/65 (82) 98 08/14/19 04:00 40 08/14/19 04:00 98.8 94 15 107/66 (80) 97 08/14/19 04:00 Bi-pap 4.0 Nasal Cannula 08/14/19 03:18 102 08/14/19 03:00 105 17 111/68 (82) 92 08/14/19 02:45 99 17 98 Facial 40 99 17 98 Bi-Pap 40 08/14/19 02:44 101 18 99 Bi-Pap 40 99 17 98 08/14/19 02:00 108 18 122/81 (95) 98 08/14/19 01:14 102 18 96 Facial 40 08/14/19 01:00 102 18 111/70 (84) 92 08/14/19 00:00 99.9 105 24 136/67 (90) 92 08/14/19 00:00 Bi-pap 4.0 Nasal Cannula 08/13/19 23:21 103 08/13/19 23:00 105 19 127/78 (94) 88 08/13/19 22:40 106 22 94 Full Face 40 08/13/19 22:26 103 23 99 Nasal Cannula 4.0 36 104 22 95 08/13/19 22:00 103 24 115/68 (84) 99 08/13/19 21:00 105 23 114/77 (89) 92 08/13/19 20:00 99.3 112 17 122/61 (81) 92 08/13/19 20:00 Nasal Cannula 4.0 Nasal Cannula 4.0 08/13/19 20:00 4.0 08/13/19 19:47 113 08/13/19 19:15 104 22 97 Nasal Cannula 4.0 36 106 22 94 08/13/19 19:00 108 20 120/92 (101) 94 08/13/19 18:00 103 25 111/72 (85) 95 08/13/19 17:00 111 25 114/70 (85) 94 08/13/19 16:00 4.0 08/13/19 16:00 Nasal Cannula 4.0 Nasal Cannula 4.0 08/13/19 16:00 98.5 100 24 119/72 (88) 93 08/13/19 15:44 100 08/13/19 15:00 94 19 107/67 (80) 95 08/13/19 14:00 103 20 115/71 (86) 93 08/13/19 13:00 106 19 112/67 (82) 93 Intake and Output 08/13/19 08/14/19 19:00 07:00 Intake Total 180 ml 50 ml Output Total 410 ml 600 ml Balance -230 ml -550 ml IV Total 50 ml Tube Feeding 180 ml Output Urine Total 410 ml 600 ml Laboratory Tests Test 08/14/19 04:00 08/14/19 09:54 White Blood Count 10.6 K/UL (4.8-10.8) Red Blood Count 4.52 M/UL (4.20-5.40) Hemoglobin 10.8 G/DL (12.0-16.0) L Hematocrit 34.2 % (37.0-47.0) L Mean Corpuscular Volume 76 FL (80-99) L Mean Corpuscular Hemoglobin 23.9 PG (27.0-31.0) L Mean Corpuscular Hemoglobin Concent 31.7 G/DL (32.0-36.0) L Red Cell Distribution Width 21.6 % (11.6-14.8) H Platelet Count 362 K/UL (150-450) Mean Platelet Volume 5.2 FL (6.5-10.1) L Neutrophils (%) (Auto) 73.2 % (45.0-75.0) Lymphocytes (%) (Auto) 17.6 % (20.0-45.0) L Monocytes (%) (Auto) 6.6 % (1.0-10.0) Eosinophils (%) (Auto) 1.7 % (0.0-3.0) Basophils (%) (Auto) 1.0 % (0.0-2.0) Sodium Level 148 MMOL/L (136-145) H Potassium Level 3.5 MMOL/L (3.5-5.1) Chloride Level 108 MMOL/L (98-107) H Carbon Dioxide Level 32 MMOL/L (21-32) Anion Gap 8 mmol/L (5-15) Blood Urea Nitrogen 20 mg/dL (7-18) H Creatinine 0.4 MG/DL (0.55-1.30) L Estimat Glomerular Filtration Rate > 60 mL/min (>60) Glucose Level 108 MG/DL (74-106) H Calcium Level 8.7 MG/DL (8.5-10.1) Arterial Blood pH 7.360 (7.350-7.450) Arterial Blood Partial Pressure CO2 52.3 mmHg (35.0-45.0) H Arterial Blood Partial Pressure O2 76.8 mmHg (75.0-100.0) Arterial Blood HCO3 28.9 mmol/L (22.0-26.0) H Arterial Blood Oxygen Saturation 92.9 % (95-100) L Arterial Blood Base Excess 2.6 (-2-2) H Gerard Test Positive Height (Feet): 4 Height (Inches): 10.00 Weight (Pounds): 143 General Appearance: alert Cardiovascular: normal rate Respiratory/Chest: normal breath sounds, no respiratory distress, other - Bibap Abdominal Exam: soft Edu Coates NP Aug 14, 2019 12:10
--- NOTE | 2019-08-14 13:42 | Diagnostic Imaging Report ---
Indication: Chest pain Technique: One view of the chest Comparison: 08/11/2019 Findings: Interim removal of endotracheal and nasogastric tubes. There is mild interstitial congestion, unchanged. Definite infiltrates. Left arm PICC, right-sided ventriculoperitoneal shunt tubing, spinal fusion hardware is again demonstrated. The heart is enlarged. Impression: Cardiomegaly. Mild interstitial congestion, unchanged over 3 days Interim endotracheal and nasogastric extubation Other stable findings as described
--- NOTE | 2019-08-14 14:00 | NUR ---
NURSE NOTES: Updated Dr Bonilla with ABG results and CXRAY. New BiPAP settings are 15/10, as pt's O2Sat the 80's. No distress noted at this time. Pt repositioned. Will continue to monitor.
--- NOTE | 2019-08-14 16:24 | Internal Med Progress Note ---
Subjective Date of Service: Aug 14, 2019 Physician Name Niraj Teixeira Attending Physician Wil Masters MD Current Medications Medications (Trade) Dose Ordered Sig/Sandeep Route PRN Reason Start Time Stop Time Status Last Admin Dose Admin Acetylcysteine (Mucomyst) 400 mg Q4HRT [facility] 08/01/19 11:00 08/16/19 18:59 08/14/19 11:00 Albuterol/ Ipratropium (Albuterol/ Ipratropium) 3 ml Q4HRT [facility] 08/12/19 11:00 08/17/19 10:59 08/14/19 11:00 Apixaban (Eliquis) 5 mg BID ORAL 08/12/19 18:00 09/11/19 17:59 08/13/19 08:36 Chlorhexidine Gluconate (Debora-Hex 2%) 1 applic DAILY@1999 TOPIC 08/13/19 20:00 09/12/19 19:59 08/13/19 20:32 Metoclopramide HCl (Reglan) 5 mg Q6H PRN IVP Nausea & Vomiting 08/04/19 10:00 09/03/19 09:59 Pantoprazole (Protonix) 40 mg DAILY IV 08/01/19 09:00 08/31/19 08:59 08/14/19 10:12 Allergies: Coded Allergies: PENICILLIN G (Verified Allergy, Unknown, 12/02/18) Tolerates cabapenem, cephalosporin PENICILLINS (Unverified Allergy, Unknown, 12/02/18) ROS Limited/Unobtainable: Yes Subjective 49 YO F with pneumonia and respiratory failure. Extubated 08/11/19. Cover for Int Med-DR Masters. ICU. On BIPAP Objective Last Vital Signs Date Time Temp Pulse Resp B/P (MAP) Pulse Ox O2 Delivery O2 Flow Rate FiO2 08/14/19 16:00 85 08/14/19 16:00 99.2 98 18 120/76 (91) 98 08/14/19 16:00 Bi-pap Bi-pap 08/14/19 08:00 4.0 Laboratory Tests Test 08/14/19 04:00 08/14/19 09:54 White Blood Count 10.6 K/UL (4.8-10.8) Red Blood Count 4.52 M/UL (4.20-5.40) Hemoglobin 10.8 G/DL (12.0-16.0) L Hematocrit 34.2 % (37.0-47.0) L Mean Corpuscular Volume 76 FL (80-99) L Mean Corpuscular Hemoglobin 23.9 PG (27.0-31.0) L Mean Corpuscular Hemoglobin Concent 31.7 G/DL (32.0-36.0) L Red Cell Distribution Width 21.6 % (11.6-14.8) H Platelet Count 362 K/UL (150-450) Mean Platelet Volume 5.2 FL (6.5-10.1) L Neutrophils (%) (Auto) 73.2 % (45.0-75.0) Lymphocytes (%) (Auto) 17.6 % (20.0-45.0) L Monocytes (%) (Auto) 6.6 % (1.0-10.0) Eosinophils (%) (Auto) 1.7 % (0.0-3.0) Basophils (%) (Auto) 1.0 % (0.0-2.0) Sodium Level 148 MMOL/L (136-145) H Potassium Level 3.5 MMOL/L (3.5-5.1) Chloride Level 108 MMOL/L (98-107) H Carbon Dioxide Level 32 MMOL/L (21-32) Anion Gap 8 mmol/L (5-15) Blood Urea Nitrogen 20 mg/dL (7-18) H Creatinine 0.4 MG/DL (0.55-1.30) L Estimat Glomerular Filtration Rate > 60 mL/min (>60) Glucose Level 108 MG/DL (74-106) H Calcium Level 8.7 MG/DL (8.5-10.1) Arterial Blood pH 7.360 (7.350-7.450) Arterial Blood Partial Pressure CO2 52.3 mmHg (35.0-45.0) H Arterial Blood Partial Pressure O2 76.8 mmHg (75.0-100.0) Arterial Blood HCO3 28.9 mmol/L (22.0-26.0) H Arterial Blood Oxygen Saturation 92.9 % (95-100) L Arterial Blood Base Excess 2.6 (-2-2) H Gerard Test Positive Intake and Output 08/13/19 08/14/19 19:00 07:00 Intake Total 180 ml 50 ml Output Total 410 ml 600 ml Balance -230 ml -550 ml IV Total 50 ml Tube Feeding 180 ml Output Urine Total 410 ml 600 ml Objective General Appearance: WD/WN, moderate distress EENT: PERRL/EOMI, normal ENT inspection Neck: non-tender, normal alignment, supple Cardiovascular: normal peripheral pulses, normal rate, regular rhythm, no gallop/murmur, no JVD Respiratory/Chest: BIPAP; crackles/rales, rhonchi - bilaterally, expiratory wheezing Abdomen: normal bowel sounds, non tender, soft, no organomegaly, no mass Skin: normal pigmentation, warm/dry Assessment/Plan Problem List: (1) Respiratory failure with hypoxia Assessment & Plan: BIPAP. S/P extubation 08/11/19 per pulmonary=Dr Bonilla (2) Pneumonia of both lower lobes Assessment & Plan: See ID note. S/P meropenem and zyvox (3) UTI (urinary tract infection) Assessment & Plan: Pseudamonas, ESBL E. Coli, and vanco resistant enterococcus. See ID=Dr Sanabria. S/P meropenem, linezolid and micafugin (4) Sepsis (5) Paraplegia (6) Spina bifida Niraj Teixeira MD Aug 14, 2019 16:24
--- NOTE | 2019-08-14 17:00 | NUR ---
NURSE NOTES: Pt's family at bedside. Updated them on pt's current condition. No distress noted at this time.
--- NOTE | 2019-08-14 17:40 | NUR ---
NURSE NOTES: Pt cleaned and repositioned. Pt remains on the BiPAP. 06/05 65%
--- NOTE | 2019-08-14 19:10 | NUR ---
NURSE NOTES: Received patient from EMMA Tucker. patient is observed in bed, AO X1-2, able to follow simple commands, no s/sx of pain noted at this time. patient is currently on BiPAP with following settings: 15/10; FiO2: 65%. saturation fluctuates between mid 80s-98%, will continue to monitor. suprapubic catheter patent and intact, draining christy urine. JASON PICC line noted, running NS at TKO. dressing dry and intact. bed in lowest position and locked, siderails up X3, call light within reach. will continue to monitor.
--- NOTE | 2019-08-14 19:15 | NUR ---
HAND-OFF: Report given to EMMA Barker.
--- NOTE | 2019-08-14 19:45 | NUR ---
NURSE NOTES: patient's saturation noted to be fluctuating between high 70s-mid 80s. respiratory therapist was called. saturation reassessed and FiO2 was increased to 80%. saturation fluctuating between 89-97%. will continue to monitor.
--- NOTE | 2019-08-14 20:05 | NUR ---
NURSE NOTES: hypoactive bowel sounds heard upon auscultation X 4 quadrants. patient's saturation is currently at 97%. no s/sx of respiratory distress noted. bounding radial pulses present upon palpatation. will continue to monitor.
[2019-08-14] MEDS: Dyna-Hex 2% Top Sol 2oz TOPIC SCH (20:16)
--- NOTE | 2019-08-14 22:20 | NUR ---
NURSE NOTES: patient removed BiAP; patient was deep suctioned, BiPAP reapplied. pt tolerated well. saturation at 93%. will continue to monitor.
--- NOTE | 2019-08-14 22:40 | NUR ---
HAND-OFF: Report given to EMMA Triplett. endorsed plan of care. pt is in stable condition.
--- NOTE | 2019-08-14 23:00 | NUR ---
NURSE NOTES: Received report from Lucero CARTER. Patient in bed resting. no s/s of acute distress noted. on BIPAP 06/05 fi02 80% satting 96%. patient teaching provided to keep the BIPAP on to prevent sob, desat, explained the importance v/s risk and benefits per patient stated okay. NPO. Suprapubic cath intact draining. JASON PICC intact dressing dry and intact. contact isolation maintained and observed. bed alarm on. bed locked and in low position. will continue plan of care.
[2019-08-15] VITALS (24 sets, daily range): BP systolic 92–128; BP diastolic 57–98
--- NOTE | 2019-08-15 01:00 | NUR ---
NURSE NOTES: Patient in bed sleeping comfortably. no moaning no facial grimaces. HOB elevated. Continue on BIPAP 06/05 Fi02 80% satting 100%. turned and repositioned patient in bed. on P200 mattress for skin management. Frequent visual checks continued. will continue plan of care.
[2019-08-15] MEDS: Acetylcysteine 20% Soln 4ml HHN SCH ×6 (03:00→22:49)
--- NOTE | 2019-08-15 03:00 | NUR ---
NURSE NOTES: Bed bath given tolerated well. repositioned patient. patient continue on BIPAP fi02 80% satting 100%. denies any pain or discomfort. Temp 99.2 axillary. no s/s of acute distress noted. frequent visual checks continued. will continue plan of care.
[2019-08-15] MEDS: Albuterol/Ipratropium 3ml neb HHN SCH ×6 (04:07→22:49)
[2019-08-15 06:25] LABS: BASOPHILS % (AUTO) 0.7 % (0.0-2.0); EOSINOPHILS % (AUTO) 1.2 % (0.0-3.0); HEMATOCRIT 33.4 % (37.0-47.0); HEMOGLOBIN 10.5 G/DL (12.0-16.0); LYMPHOCYTES % (AUTO) 14.3 % (20.0-45.0); MEAN CORPUSCULAR VOLUME 76 FL (80-99); MONOCYTES % (AUTO) 5.6 % (1.0-10.0); NEUTROPHILS % (AUTO) 78.3 % (45.0-75.0); PLATELET COUNT 371 K/UL (150-450); RED BLOOD COUNT 4.38 M/UL (4.20-5.40); RED CELL DISTRIBUTION WIDTH 21.5 % (11.6-14.8); WHITE BLOOD COUNT 16.2 K/UL (4.8-10.8)
[2019-08-15 06:56] LABS: ALANINE AMINOTRANSFERASE 26 U/L (12-78); ALBUMIN/GLOBULIN RATIO 0.5 (1.0-2.7); ALKALINE PHOSPHATASE 90 U/L (46-116); ANION GAP 8 mmol/L (5-15); ASPARTATE AMINO TRANSFERASE 14 U/L (15-37); BILIRUBIN,TOTAL 0.5 MG/DL (0.2-1.0); BLOOD UREA NITROGEN 24 mg/dL (7-18); CARBON DIOXIDE 32 MMOL/L (21-32); CHLORIDE 111 MMOL/L (98-107); CREATININE 0.4 MG/DL (0.55-1.30); POTASSIUM 2.8 MMOL/L (3.5-5.1); SODIUM 151 MMOL/L (136-145)
--- NOTE | 2019-08-15 06:59 | General Progress Note ---
Assessment/Plan Problem List: (1) Spina bifida ICD Codes: Q05.9 - Spina bifida, unspecified SNOMED: 49860001 Qualifiers: Qualified Codes: Q05.4 - Unspecified spina bifida with hydrocephalus (2) Respiratory failure with hypoxia ICD Codes: J96.91 - Respiratory failure, unspecified with hypoxia SNOMED: [id number] Qualifiers: Qualified Codes: J96.21 - Acute and chronic respiratory failure with hypoxia (3) Dysphagia ICD Codes: R13.10 - Dysphagia, unspecified SNOMED: 03548852, [id number] Status: unchanged Assessment/Plan: extubated still on BIPAP ppi repeat labs fu H&H stool ob neg x1 reglan family wants to transfer the patient to [facility] and refusing PEG here at [place] failed swallow eval needs either NGT or GT feeding NGt placement on hold given patient still on BIPAP will fu Subjective ROS Limited/Unobtainable: No Allergies: Coded Allergies: PENICILLIN G (Verified Allergy, Unknown, 12/02/18) Tolerates cabapenem, cephalosporin PENICILLINS (Unverified Allergy, Unknown, 12/02/18) Objective Last 24 Hour Vital Signs Date Time Temp Pulse Resp B/P (MAP) Pulse Ox O2 Delivery O2 Flow Rate FiO2 08/15/19 06:00 102 19 106/71 (83) 100 08/15/19 05:00 88 15 92/58 (69) 100 08/15/19 04:47 106 16 98 Facial 60 08/15/19 04:14 101 21 98 Facial 60 08/15/19 04:00 99 08/15/19 04:00 80 08/15/19 04:00 Bi-pap Bi-pap 08/15/19 04:00 99.2 97 19 114/67 (83) 100 08/15/19 03:00 97 18 128/73 (91) 97 08/15/19 03:00 99 20 100 Facial 60 99 20 100 Bi-Pap 80 08/15/19 02:00 92 15 112/77 (89) 100 08/15/19 01:00 97 15 126/75 (92) 100 08/15/19 00:00 99.3 104 20 128/78 (95) 98 08/15/19 00:00 Bi-pap Bi-pap 08/15/19 00:00 108 08/14/19 23:47 105 19 95 Facial 80 107 21 97 Bi-Pap 80 08/14/19 23:00 107 19 130/74 (92) 97 08/14/19 22:00 104 23 131/79 (96) 100 08/14/19 21:06 107 23 93 Facial 80 08/14/19 21:00 101 19 133/86 (102) 100 08/14/19 20:00 108 08/14/19 20:00 Bi-pap Bi-pap 08/14/19 20:00 80 08/14/19 20:00 99.3 106 21 126/76 (93) 98 08/14/19 19:35 105 23 90 Full Face 65 107 22 92 Bi-Pap 65 08/14/19 19:00 107 19 129/78 (95) 84 08/14/19 18:00 102 20 125/75 (92) 98 08/14/19 17:41 103 17 100 Facial 65 08/14/19 17:00 100 19 120/90 (100) 95 08/14/19 16:27 99 17 98 Facial 75 104 24 95 Bi-Pap 75 08/14/19 16:00 85 08/14/19 16:00 99.2 98 18 120/76 (91) 98 08/14/19 16:00 Bi-pap Bi-pap 08/14/19 15:34 95 08/14/19 15:00 100 25 127/83 (98) 95 08/14/19 14:00 101 19 133/88 (103) 100 08/14/19 13:02 112 19 93 Facial 50 08/14/19 13:00 101 20 140/87 (104) 84 08/14/19 12:42 95 08/14/19 12:00 Bi-pap Bi-pap 08/14/19 12:00 98.0 98 22 128/78 (95) 96 08/14/19 12:00 55 08/14/19 11:00 101 15 98 Bi-Pap 50 113 20 93 08/14/19 11:00 104 17 112/52 (72) 91 08/14/19 10:39 112 19 93 Facial 50 08/14/19 10:00 114 25 122/81 (95) 95 08/14/19 09:00 114 21 118/70 (86) 91 08/14/19 08:00 4.0 08/14/19 08:00 100.5 124 20 122/49 (73) 90 08/14/19 08:00 Nasal Cannula 4.0 Nasal Cannula 4.0 08/14/19 08:00 118 08/14/19 07:37 101 18 99 Bi-Pap 40 114 26 94 08/14/19 07:00 105 14 111/65 (80) 89 Intake and Output 08/14/19 08/15/19 19:00 07:00 Output Total 585 ml 275 ml Balance -585 ml -275 ml Output Urine Total 585 ml 275 ml # Bowel Movements 1 Laboratory Tests 08/14/19 09:54: Arterial Blood pH 7.360, Arterial Blood Partial Pressure CO2 52.3H, Arterial Blood Partial Pressure O2 76.8, Arterial Blood HCO3 28.9H, Arterial Blood Oxygen Saturation 92.9L, Arterial Blood Base Excess 2.6H, Gerard Test Positive 08/15/19 04:00: White Blood Count 16.2#H, Red Blood Count 4.38, Hemoglobin 10.5L, Hematocrit 33.4L, Mean Corpuscular Volume 76L, Mean Corpuscular Hemoglobin 24.0L, Mean Corpuscular Hemoglobin Concent 31.4L, Red Cell Distribution Width 21.5H, Platelet Count 371, Mean Platelet Volume 5.4L, Neutrophils (%) (Auto) 78.3H, Lymphocytes (%) (Auto) 14.3L, Monocytes (%) (Auto) 5.6, Eosinophils (%) (Auto) 1.2, Basophils (%) (Auto) 0.7, Sodium Level [Pending], Potassium Level [Pending] , Chloride Level [Pending], Carbon Dioxide Level [Pending], Blood Urea Nitrogen [Pending], Creatinine [Pending], Estimat Glomerular Filtration Rate [Pending], Glucose Level [Pending], Calcium Level [Pending], Total Bilirubin [Pending], Aspartate Amino Transf (AST/SGOT) [Pending], Alanine Aminotransferase (ALT/SGPT ) [Pending], Alkaline Phosphatase [Pending], Total Protein [Pending], Albumin [ Pending], Globulin [Pending] Height (Feet): 4 Height (Inches): 10.00 Weight (Pounds): 143 General Appearance: lethargic EENT: normal ENT inspection Neck: supple Cardiovascular: tachycardia Respiratory/Chest: decreased breath sounds Abdomen: normal bowel sounds, non tender, soft Extremities: non-tender Tim Davis MD Aug 15, 2019 06:59
--- NOTE | 2019-08-15 07:30 | NUR ---
HAND-OFF: Report given to Yasmine CARTER.
--- NOTE | 2019-08-15 07:38 | NUR ---
NURSE NOTES: REPORT RECEIVED FROM EMMA VANEGAS
--- NOTE | 2019-08-15 08:01 | NUR ---
NURSE NOTES: Awake when received, episode of restlessness. Responsive to verbal and tactile stimuli.On bipap 15/10 at 80% and saturate at 96%. Abdomen soft and non distended, noted with low grade fever and cooling measure applied.Huber catheter in place with low urine out put yellowish in color.NPO at this time, Dr Bonilla made aware NPO status with glucose 80, K 2.8, Na 151. Awaiting call back.Call light within easy reach, mouth care done and suctioned as tolerated. Turned and repositioned for comfort and skin management.HOB elevated to prevent aspiration but patient noted to scroll back down.Education provided and reinforcement needed. Will continue same care plan.
[2019-08-15] MEDS: Pantoprazole Inj IV SCH (08:13)
[2019-08-15] MEDS: Eliquis 5mg tablet ORAL SCH ×2 (08:13→18:34)
[2019-08-15] MEDS ORDERED: Depakote 500mg tab ORAL SCH (09:00)
--- NOTE | 2019-08-15 09:28 | Pulmonolgy Critical Care Note ---
Critical Care - Asmt/Plan Assessment/Plan: (1) Pneumonia of both lower lobes Assessment & Plan: VDRF, intubated 07/12/19, S/P FOB 07/12/19; Reintubated ; extubated 08/11/19 (2) Catheter-associated urinary tract infection Assessment & Plan: PsA and proteus - s/p treatment (3) Respiratory failure with hypoxia Assessment & Plan: Acute on chronic hypercapnic and hypoxemic RF 2/2 PNA Duplex neg, minimally elevated d-dimer, unlikely VTE and already on a NOAC (4) HCAP (healthcare-associated pneumonia) (5) Paraplegia (6) Sepsis (7) Suprapubic catheter (8) Restrictive lung disease due to kyphoscoliosis (9) Decubitus skin ulcer (10) Spina bifida (11) Anemia, acute (12) hx recurrent PE on eliquis Plan: * Does not seem to be protecting airway well with development of infiltrates, ronchi, leukocytosis, and worsening hypercapnic respiratory failure * Needing more and more bipap, will try to wean off to oxygen and focus on pulmonary hygiene * concern about potential need to reintubate if does not improve * NT suctionining important * NGT for feeds if possible * ABG * Repeat CXR tomorrow * Concern about reaspiration * Not able to have video swallow now due to above and refusing even bedside PO assessment earlier * BiPAP qhs and prn * High risk for recurrent respiratory failure and reintubation and discussed with the patiet's family previously * If gets reintubated, will need trach placement * May need to resume abx, will discuss with Dr. Sanabria * Good pulmonary hygiene: duonebs and mucomyst q4 * Discussed with patient's outpatient primary, Dr. Oliveros. She had recurrent PE as outpatient. Cont eliquis 5 mg bid and monitor H/H Respiratory: monitor respiratory rate, ABG Cardiac: continue to monitor HR/BP Renal: F/U I&O Hematologic: monitor H/H Disposition: keep in ICU Time Spent (Minutes): 40 - cc Discussed with: nurses Critical Care - Objective Last 24 Hour Vital Signs Date Time Temp Pulse Resp B/P (MAP) Pulse Ox O2 Delivery O2 Flow Rate FiO2 08/15/19 06:50 107 23 93 Facial 80 08/15/19 06:50 101 18 99 Bi-Pap 40 99 17 98 08/15/19 06:00 102 19 106/71 (83) 100 08/15/19 05:00 88 15 92/58 (69) 100 08/15/19 04:47 106 16 98 Facial 60 08/15/19 04:14 101 21 98 Facial 60 08/15/19 04:00 99 08/15/19 04:00 80 08/15/19 04:00 Bi-pap Bi-pap 08/15/19 04:00 99.2 97 19 114/67 (83) 100 08/15/19 03:00 97 18 128/73 (91) 97 08/15/19 03:00 99 20 100 Facial 60 99 20 100 Bi-Pap 80 08/15/19 02:00 92 15 112/77 (89) 100 08/15/19 01:00 97 15 126/75 (92) 100 08/15/19 00:00 99.3 104 20 128/78 (95) 98 08/15/19 00:00 Bi-pap Bi-pap 08/15/19 00:00 108 08/14/19 23:47 105 19 95 Facial 80 107 21 97 Bi-Pap 80 08/14/19 23:00 107 19 130/74 (92) 97 08/14/19 22:00 104 23 131/79 (96) 100 08/14/19 21:06 107 23 93 Facial 80 08/14/19 21:00 101 19 133/86 (102) 100 08/14/19 20:00 108 08/14/19 20:00 Bi-pap Bi-pap 08/14/19 20:00 80 08/14/19 20:00 99.3 106 21 126/76 (93) 98 08/14/19 19:35 105 23 90 Full Face 65 107 22 92 Bi-Pap 65 08/14/19 19:00 107 19 129/78 (95) 84 08/14/19 18:00 102 20 125/75 (92) 98 08/14/19 17:41 103 17 100 Facial 65 08/14/19 17:00 100 19 120/90 (100) 95 08/14/19 16:27 99 17 98 Facial 75 104 24 95 Bi-Pap 75 08/14/19 16:00 85 08/14/19 16:00 99.2 98 18 120/76 (91) 98 08/14/19 16:00 Bi-pap Bi-pap 08/14/19 15:34 95 08/14/19 15:00 100 25 127/83 (98) 95 08/14/19 14:00 101 19 133/88 (103) 100 08/14/19 13:02 112 19 93 Facial 50 08/14/19 13:00 101 20 140/87 (104) 84 08/14/19 12:42 95 08/14/19 12:00 Bi-pap Bi-pap 08/14/19 12:00 98.0 98 22 128/78 (95) 96 08/14/19 12:00 55 08/14/19 11:00 101 15 98 Bi-Pap 50 113 20 93 08/14/19 11:00 104 17 112/52 (72) 91 08/14/19 10:39 112 19 93 Facial 50 08/14/19 10:00 114 25 122/81 (95) 95 Status: awake Condition: other - respiratory deterioration HEENT: atraumatic Neck: full ROM Lungs: rhonchi Heart: HR/BP stable Abdomen: soft, non-tender Extremities: no C/C/E Accucheck: 114 Critical Care - Subjective ROS Limited/Unobtainable: Yes Interval Events: Noted low grade fevers. WBC higher. CXR getting worse. ABG with rising CO2 but compensated. Ronchorous and getting up secretions on deep suctioning. NGT not placed yesterday for unclear reason. FI02: 80 Vent Support Breath Rate: 16 Vent Support Mode: BiLevel Vent Tidal Volume: 400 Sputum Amount: Small PEEP: 5.0 PIP: 22 I&O: Intake and Output 08/14/19 08/15/19 18:59 06:59 Output Total 620 ml 290 ml Balance -620 ml -290 ml Output Urine Total 620 ml 290 ml # Bowel Movements 1 ET-Tube: 7.5 ET Position: 23 Walker Bonilla MD Aug 15, 2019 09:28
--- NOTE | 2019-08-15 10:12 | NUR ---
NURSE NOTES: Patient was seen by Dr Bonilla with order to insert NGT and resume previous feeding.Order to put pt on 4 L nasal canula.Noted and carried out.Turned and repositioned for comfort and skin management.Optifoam applied sacral area and bilateral foam dressing for protection.Call light within easy reach, will continue same care plan
--- NOTE | 2019-08-15 11:15 | Progress Note ---
DATE: 08/14/2019 SUBJECTIVE: The patient has a history of DT. The patient is aggressive towards the staff. She is very agitated, not able to be engaged medical history. tends to have agitation. MENTAL STATUS EXAMINATION: The patient is confused and disoriented. Mood is agitated. Affect is flat. Thought process, there is a paucity of thought content. Thought content, no suicidal or homicidal ideation. ASSESSMENT: DT with aggressive behaviors. PLAN: We will discharge the patient on Depakote 500 mg b.i.d. Kobi Reyes M.D. DR: MISBAH JOB#: [id number] CC:
--- NOTE | 2019-08-15 12:09 | NUR ---
NURSE NOTES: Received call from Dr Davis, with ok to use NGT. Pt turned and repositioned, suctioned as tolerated.HOB elevated to prevent aspiration.Mouth care done and lubricant applied.call light within easy reach
--- NOTE | 2019-08-15 12:13 | NUR ---
RD ASSESSMENT & RECOMMENDATIONS SEE CARE ACTIVITY FOR COMPLETE ASSESSMENT DAILY ESTIMATED NEEDS: Needs based on wound, Pulmonary/ 47.6kg abw 25-30 kcals/kg 7633-9411 total kcals 1.25-2 g protein/kg 60-95 g total protein 25-30 mL/kg 8855-4877 total fluid mLs NUTRITION DIAGNOSIS: * Increased kcal/pro needs r/t wound healing as evidenced by h/o spina bifida, adm w/ full thickness wound @ sacrum and resolving pressure injury @ R-ischium. * Swallowing difficulty R/T respiratory status as evidenced by re-intubated, now extubated, on and off BIPAP, w/ an order for NGT insertion + NGT feeds. CURRENT TF:Vital 1.2 @ 45ml/hr x 24 hrs PO DIET RECOMMENDATIONS: WHEN SAFE FOR ORAL DIET-> REGULAR, texture per BREAKER LAYER ENTERAL NUTRITION RECOMMENDATIONS: Glucerna 1.2 @ 45ml/hr x 24 hrs to provide 1080ml, 1296kcal, 65g prot, 875ml free water - Initiate Glucerna 1.2 @ 25ml/hr x 6 hrs - Advance 10ml q 4-6 hrs as tolerated to goal rate. - Water flush per MD/ HOB over 30 degrees. ADDITIONAL RECOMMENDATIONS: 1) Wound care: add GREGG in 4oz H2O BID via NGT Add VIT C 500mg daily 2) Maintain calibrated bed scale wts 3) NISS for BG control on TF - h/o DM 4) Monitor lytes daily, replete as needed. (low K) 5) Monitor BIPAP usage and ability to feed -> w/ an order for NGT insertion 08/15
--- NOTE | 2019-08-15 12:28 | Diagnostic Imaging Report ---
Indication: Nasogastric tube placement Technique: Supine view of the abdomen Comparison: 07/16/2019 Findings: Nasogastric tube tip projects at the level gastric antrum. Spinal fusion hardware, bilateral nephroureteral stents, ventriculoperitoneal shunt tubing, chronic right hip dislocation, femoral hardware are again demonstrated., Gas pattern is unremarkable Impression: Satisfactory nasogastric intubation. ICU nurse notified at the time of interpretation Other stable findings as described
--- NOTE | 2019-08-15 13:32 | NUR ---
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 99.2 HR 108 RR 22 B/P 109/61 4L NC O2 SAT 2 98% WBC 16.2 NA 151 K 2.8 BUN 24 IS: DEPAKOTE NGT K-DUR NGT ELIQUISE NGT ALB HHN ICU STATUS
--- NOTE | 2019-08-15 14:11 | NUR ---
NURSE NOTES: Patient awake, no acute distress.Tolerate well feeding.HOB elevated to prevent aspiration. Turned and repositioned for skin management and comfort.Call light within easy reach. will continue same care plan, no significant change at this time
--- NOTE | 2019-08-15 16:04 | NUR ---
NURSE NOTES: Adls done, family at bedside and update given.Turned and repositioned,on P200 mattress , mouth care done and suctioned as tolerated.Tolerate well feeding.HOB elevated at 35 degree to prevent aspiration. Call light within easy reach. Will continue same care plan, no significant change at this time
--- NOTE | 2019-08-15 18:04 | NUR ---
NURSE NOTES: Patient turned and repositioned for skin management and comfort.HOB elevated at 35 degree to prevent aspiration, GT placement intact and flushed as ordered. Call light within easy reach. Will continue same care plan, no significant change at this time
--- NOTE | 2019-08-15 19:12 | NUR ---
HAND-OFF: Report given to EMMA Triplett.
--- NOTE | 2019-08-15 19:15 | NUR ---
NURSE NOTES: Received report from Yasmine CARTER. Patient in awake,alert verbally responsive. Watching TV. no s/s of acute distress noted. On 4L oxygen via N/C satting 100%. NGT intact no residual infusing Vital AF 1.2 at 20cc/hr. HOB. Suprapubic cath intact draining. JASON PICC intact dressing dry and intact. Instructed patient to use call light for assistance. bed alarm on. bed locked and in low position. contact isolation maintained and observed. bed alarm on. bed locked and in low position. will continue plan of care.
--- NOTE | 2019-08-15 20:46 | NUR ---
NURSE NOTES: Spoke with Eli Pharmacist to change the Keppera Addendum: 08/15/19 at 204 by GUILHERME HOLDER RN to change Keppra extended release tablet due to patient on NGT cannot crush Keppra per protocol, per Pharmacist she will change it to sprinkles
[2019-08-15] MEDS: Depakote 125mg Sprinkles NG SCH (21:03)
[2019-08-15] MEDS: Dyna-Hex 2% Top Sol 2oz TOPIC SCH (21:07)
--- NOTE | 2019-08-15 22:46 | NUR ---
NURSE NOTES: Patient in bed awake,alert suctioned orally and Nasal with thick phlegm. HOB elevated. oral care provided. RT at bedside, patient currently receiving HHN. call light within easy reach. will continue plan of care.
[2019-08-16] VITALS (24 sets, daily range): BP systolic 91–123; BP diastolic 51–91
--- NOTE | 2019-08-16 00:46 | NUR ---
NURSE NOTES: Patient in bed sleeping comfortably. HOB elevated. no s/s of acute distress noted. tolerating oxygen 4L via N/C satting 97-100%. frequent Suctioned and oral care provided. NGT intact no residual on Vital af 1.2 at 30cc/hr tolerated well. call light within easy reach.will continue plan of care.
--- NOTE | 2019-08-16 02:30 | NUR ---
NURSE NOTES: Bed bath given tolerated well. repositioned patient. denies any pain or discomfort. Temp 99.2 axillary. no s/s of acute distress noted. frequent visual checks continued. will continue plan of care.
[2019-08-16] MEDS: Acetylcysteine 20% Soln 4ml HHN SCH ×6 (03:07→22:53)
[2019-08-16] MEDS: Albuterol/Ipratropium 3ml neb HHN SCH ×6 (03:07→22:53)
--- NOTE | 2019-08-16 04:30 | NUR ---
NURSE NOTES: Patient in bed awake,alert able to verbalize needs to staff. Tolerating 4L oxygen via N/C satting 100%. patient watching TV, able to use call light for assistance. frequent visual checks continued. Contact isolation maintained and observed. will continue plan of care.
--- NOTE | 2019-08-16 07:27 | NUR ---
HAND-OFF: Report given to Ricardo CARTER.
--- NOTE | 2019-08-16 07:28 | NUR ---
NURSE NOTES: Report received from EMMA Triplett. Pt is awake and alert. Able to answer for simple questions and verbalize needs at times with mental delay. Spinal bifida noted. 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 On N/C 4L. O2 sat 98-100%. Thick secretion noted and suctioned as needed. Right nare NGT in place receiving Vital AF 1.2 at 40cc/hr. No residual noted. Suprapubic catheter in place draining to gravity. JASON PICC line patent and asymptomatic. Bed in lowest position. Side rails up x3. Call light within reach. Will resume plan of care.
--- NOTE | 2019-08-16 08:15 | General Progress Note ---
Assessment/Plan Problem List: (1) Spina bifida ICD Codes: Q05.9 - Spina bifida, unspecified SNOMED: 90303258 Qualifiers: Qualified Codes: Q05.4 - Unspecified spina bifida with hydrocephalus (2) Respiratory failure with hypoxia ICD Codes: J96.91 - Respiratory failure, unspecified with hypoxia SNOMED: 34196256459344046 Qualifiers: Qualified Codes: J96.21 - Acute and chronic respiratory failure with hypoxia (3) Dysphagia ICD Codes: R13.10 - Dysphagia, unspecified SNOMED: 98269218, 624349963 Status: unchanged Assessment/Plan: extubated ppi repeat labs fu H&H stool ob neg x1 samanlan family wants to transfer the patient to [facility] and refusing PEG here at [facility] failed swallow eval pending VAS on Sunday NGTF for now will fu Subjective ROS Limited/Unobtainable: No Allergies: Coded Allergies: PENICILLIN G (Verified Allergy, Unknown, 12/02/18) Tolerates cabapenem, cephalosporin PENICILLINS (Unverified Allergy, Unknown, 12/02/18) Objective Last 24 Hour Vital Signs Date Time Temp Pulse Resp B/P (MAP) Pulse Ox O2 Delivery O2 Flow Rate FiO2 08/16/19 07:20 91 20 100 Nasal Cannula 4.0 36 87 20 97 08/16/19 07:00 89 14 102/60 (74) 100 08/16/19 06:00 89 17 116/67 (83) 99 08/16/19 05:00 94 20 107/65 (79) 99 08/16/19 04:00 99.4 108 19 100/69 (79) 100 08/16/19 04:00 105 08/16/19 04:00 Nasal Cannula 4.0 Nasal Cannula 4.0 08/16/19 04:00 4.0 08/16/19 03:07 94 19 100 Nasal Cannula 40 90 18 97 08/16/19 03:00 91 17 103/62 (76) 100 08/16/19 02:00 91 15 97/58 (71) 100 08/16/19 01:00 105 17 103/65 (78) 99 08/16/19 00:00 99.2 100 17 104/63 (77) 100 08/16/19 00:00 101 08/16/19 00:00 Nasal Cannula 4.0 Nasal Cannula 4.0 1/25/20 00:00 4.0 08/15/19 23:00 95 18 118/75 (89) 08/15/19 22:49 97 20 100 Nasal Cannula 40 93 18 99 08/15/19 22:00 98 18 103/67 (79) 98 08/15/19 21:00 100 19 106/69 (81) 98 08/15/19 20:00 102 08/15/19 20:00 4.0 08/15/19 20:00 Nasal Cannula 4.0 Nasal Cannula 4.0 08/15/19 20:00 99.3 103 19 114/73 (87) 98 08/15/19 19:19 98 20 100 Nasal Cannula 40 97 16 99 08/15/19 19:00 98 22 118/74 (89) 96 08/15/19 18:00 101 18 127/97 (107) 89 08/15/19 18:00 4.0 08/15/19 17:00 106 21 126/84 (98) 91 08/15/19 16:00 99.6 113 20 111/70 (84) 93 08/15/19 16:00 105 08/15/19 16:00 Nasal Cannula 4.0 Nasal Cannula 4.0 08/15/19 15:00 106 24 117/74 (88) 98 08/15/19 14:50 104 18 98 Nasal Cannula 40 98 18 98 08/15/19 14:00 106 15 121/67 (85) 97 08/15/19 13:00 111 18 102/61 (75) 97 08/15/19 12:00 99.2 103 22 109/68 (82) 97 08/15/19 12:00 4.0 08/15/19 12:00 105 08/15/19 12:00 Nasal Cannula 4.0 Nasal Cannula 4.0 08/15/19 11:20 98 18 99 Bi-Pap 40 96 16 98 08/15/19 11:00 104 20 119/71 (87) 90 08/15/19 10:00 4.0 08/15/19 10:00 108 19 118/98 (105) 96 08/15/19 09:00 102 22 112/66 (81) 96 Intake and Output 08/15/19 08/16/19 19:00 07:00 Intake Total 480 ml 840 ml Output Total 350 ml 535 ml Balance 130 ml 305 ml Intake Free Water 400 ml 400 ml Tube Feeding 80 ml 380 ml Other 60 ml Output Urine Total 350 ml 535 ml Laboratory Tests 08/15/19 10:01: Arterial Blood pH 7.573*H, Arterial Blood Partial Pressure CO2 26.4L, Arterial Blood Partial Pressure O2 141.2H, Arterial Blood HCO3 23.8, Arterial Blood Oxygen Saturation 98.7, Arterial Blood Base Excess 2.6H, Gerard Test Positive Height (Feet): 4 Height (Inches): 10.00 Weight (Pounds): 144 General Appearance: alert EENT: normal ENT inspection Neck: supple Cardiovascular: normal rate Respiratory/Chest: decreased breath sounds Abdomen: normal bowel sounds, non tender, soft Extremities: non-tender Tim Davis MD Aug 16, 2019 08:15
[2019-08-16] MEDS: Pantoprazole Inj IV SCH (08:21)
[2019-08-16] MEDS: Eliquis 5mg tablet NGT SCH ×2 (08:22→17:28)
[2019-08-16] MEDS: Depakote 125mg Sprinkles NG SCH ×2 (08:22→20:34)
[2019-08-16 08:29] LABS: BASOPHILS % (AUTO) 0.8 % (0.0-2.0); EOSINOPHILS % (AUTO) 2.3 % (0.0-3.0); HEMOGLOBIN 10.5 G/DL (12.0-16.0); LYMPHOCYTES % (AUTO) 14.5 % (20.0-45.0); MEAN CORPUSCULAR VOLUME 76 FL (80-99); MONOCYTES % (AUTO) 5.3 % (1.0-10.0); NEUTROPHILS % (AUTO) 77.1 % (45.0-75.0); PLATELET COUNT 360 K/UL (150-450); RED CELL DISTRIBUTION WIDTH 21.8 % (11.6-14.8); WHITE BLOOD COUNT 14.9 K/UL (4.8-10.8)
[2019-08-16 08:39] LABS: ANION GAP 6 mmol/L (5-15); BLOOD UREA NITROGEN 18 mg/dL (7-18); CALCIUM 8.4 MG/DL (8.5-10.1); CARBON DIOXIDE 31 MMOL/L (21-32); CHLORIDE 110 MMOL/L (98-107); CREATININE 0.3 MG/DL (0.55-1.30); POTASSIUM 3.6 MMOL/L (3.5-5.1); SODIUM 147 MMOL/L (136-145)
--- NOTE | 2019-08-16 10:00 | NUR ---
NURSE NOTES: No residual noted. Feeding increased to 45cc/hr, which is the goal rate. Pt is sleeping in bed. Tolerating 4L N/C. O2 sat 98-100%. Will continue to monitor.
--- NOTE | 2019-08-16 11:56 | NUR ---
NURSE NOTES: Cleaned pt for large amount of brown pasty BM and repositioned pt. Nasal suction done by RT. O2 sat 95%.
[2019-08-16] MEDS ORDERED: NS 275ml ONE (13:44)
[2019-08-16] MEDS ORDERED: NS 500ML ONE (13:44)
--- NOTE | 2019-08-16 14:10 | NUR ---
NURSE NOTES: Pt is sleeping in bed. Pt is tolerating 4L N/C. O2 sat 100%. Will continue to monitor.
--- NOTE | 2019-08-16 14:52 | Internal Med Progress Note ---
Subjective Date of Service: Aug 16, 2019 Physician Name Niraj Teixeira Attending Physician Wil Masters MD Current Medications Medications (Trade) Dose Ordered Sig/Sandeep Route PRN Reason Start Time Stop Time Status Last Admin Dose Admin Acetylcysteine (Mucomyst) 400 mg Q4HRT [facility] 08/16/19 11:00 09/15/19 10:59 08/16/19 11:20 Albuterol/ Ipratropium (Albuterol/ Ipratropium) 3 ml Q4HRT N 08/12/19 11:00 08/17/19 10:59 08/16/19 11:20 Apixaban (Eliquis) 5 mg BID NGT 08/16/19 09:00 09/11/19 17:59 08/16/19 08:22 Chlorhexidine Gluconate (Debora-Hex 2%) 1 applic DAILY@1999 TOPIC 08/13/19 20:00 09/12/19 19:59 08/15/19 21:07 Divalproex Sodium (Depakote Sprinkles) 500 mg Q12HR NG 08/15/19 21:00 09/14/19 20:59 08/16/19 08:22 Metoclopramide HCl (Reglan) 5 mg Q6H PRN IVP Nausea & Vomiting 08/04/19 10:00 09/03/19 09:59 Pantoprazole (Protonix) 40 mg DAILY IV 08/01/19 09:00 08/31/19 08:59 08/16/19 08:21 Allergies: Coded Allergies: PENICILLIN G (Verified Allergy, Unknown, 12/02/18) Tolerates cabapenem, cephalosporin PENICILLINS (Unverified Allergy, Unknown, 12/02/18) ROS Limited/Unobtainable: No Constitutional: Reports: no symptoms HEENT: Reports: no symptoms Cardiovascular: Reports: no symptoms Respiratory: Reports: no symptoms Gastrointestinal/Abdominal: Reports: no symptoms Genitourinary: Reports: no symptoms Neurologic/Psychiatric: Reports: no symptoms Subjective 49 YO F with pneumonia and respiratory failure. Extubated 08/11/19. Cover for Int Conor-DR Masters. ICU. Tolerating nasal canula Objective Last Vital Signs Date Time Temp Pulse Resp B/P (MAP) Pulse Ox O2 Delivery O2 Flow Rate FiO2 08/16/19 14:00 89 16 92/54 (67) 100 08/16/19 12:00 Nasal Cannula 4.0 Nasal Cannula 4.0 08/16/19 12:00 99.5 08/16/19 11:21 36 Laboratory Tests Test 08/16/19 08:05 White Blood Count 14.9 K/UL (4.8-10.8) H Red Blood Count 4.20 M/UL (4.20-5.40) Hemoglobin 10.5 G/DL (12.0-16.0) L Hematocrit 32.0 % (37.0-47.0) L Mean Corpuscular Volume 76 FL (80-99) L Mean Corpuscular Hemoglobin 24.9 PG (27.0-31.0) L Mean Corpuscular Hemoglobin Concent 32.7 G/DL (32.0-36.0) Red Cell Distribution Width 21.8 % (11.6-14.8) H Platelet Count 360 K/UL (150-450) Mean Platelet Volume 5.5 FL (6.5-10.1) L Neutrophils (%) (Auto) 77.1 % (45.0-75.0) H Lymphocytes (%) (Auto) 14.5 % (20.0-45.0) L Monocytes (%) (Auto) 5.3 % (1.0-10.0) Eosinophils (%) (Auto) 2.3 % (0.0-3.0) Basophils (%) (Auto) 0.8 % (0.0-2.0) Sodium Level 147 MMOL/L (136-145) H Potassium Level 3.6 MMOL/L (3.5-5.1) Chloride Level 110 MMOL/L (98-107) H Carbon Dioxide Level 31 MMOL/L (21-32) Anion Gap 6 mmol/L (5-15) Blood Urea Nitrogen 18 mg/dL (7-18) Creatinine 0.3 MG/DL (0.55-1.30) L Estimat Glomerular Filtration Rate > 60 mL/min (>60) Glucose Level 117 MG/DL (74-106) H Calcium Level 8.4 MG/DL (8.5-10.1) L Intake and Output 08/15/19 08/16/19 19:00 07:00 Intake Total 480 ml 840 ml Output Total 350 ml 535 ml Balance 130 ml 305 ml Intake Free Water 400 ml 400 ml Tube Feeding 80 ml 380 ml Other 60 ml Output Urine Total 350 ml 535 ml Objective General Appearance: WD/WN, moderate distress EENT: PERRL/EOMI, normal ENT inspection Neck: non-tender, normal alignment, supple Cardiovascular: normal peripheral pulses, normal rate, regular rhythm, no gallop/murmur, no JVD Respiratory/Chest: BIPAP; crackles/rales, rhonchi - bilaterally, expiratory wheezing Abdomen: normal bowel sounds, non tender, soft, no organomegaly, no mass Skin: normal pigmentation, warm/dry Assessment/Plan Problem List: (1) Respiratory failure with hypoxia Assessment & Plan: Tolerating nasal canula. S/P extubation 08/11/19 per pulmonary=Dr Bonilla (2) Pneumonia of both lower lobes Assessment & Plan: See ID note. S/P meropenem and zyvox (3) UTI (urinary tract infection) Assessment & Plan: Pseudamonas, ESBL E. Coli, and vanco resistant enterococcus. See ID note; Dr Sanabria signed off. Await ID = Dr Sanabria. S/P meropenem, linezolid and micafugin (4) Sepsis (5) Paraplegia (6) Spina bifida Niraj Teixeira MD Aug 16, 2019 14:52
--- NOTE | 2019-08-16 16:01 | NUR ---
NURSE NOTES: Nasal suction done by RT after breathing treatment. Moderate amount of yellow white thick secretion noted. O2 sat 100% after suction.
--- NOTE | 2019-08-16 19:15 | NUR ---
HAND-OFF: Report given to EMMA Triplett.
--- NOTE | 2019-08-16 19:30 | NUR ---
NURSE NOTES: Received report from Ricardo CARTER. Patient in awake,alert verbally responsive. Watching TV. no s/s of acute distress noted. On 4L oxygen via N/C satting 100%. NGT intact no residual infusing Vital AF 1.2 at 45cc/hr. HOB. Suprapubic cath intact draining. Left upper arm PICC intact dressing dry and intact. Instructed patient to use call light for assistance. bed alarm on. bed locked and in low position. contact isolation maintained and observed. bed alarm on. bed locked and in low position. will continue plan of care.
--- NOTE | 2019-08-16 20:00 | NUR ---
NURSE NOTES: Family at bedside.
[2019-08-16] MEDS: Dyna-Hex 2% Top Sol 2oz TOPIC SCH (20:34)
--- NOTE | 2019-08-16 21:00 | NUR ---
NURSE NOTES: Seen and examined by dr Billingsley no new order at this time.
--- NOTE | 2019-08-16 22:27 | Pulmonolgy Critical Care Note ---
Critical Care - Asmt/Plan Assessment/Plan: Critical Care - Asmt/Plan Assessment/Plan: (1) Pneumonia of both lower lobes Assessment & Plan: VDRF, intubated 07/12/19, S/P FOB 07/12/19; Reintubated ; extubated 08/11/19 (2) Catheter-associated urinary tract infection Assessment & Plan: PsA and proteus - s/p treatment (3) Respiratory failure with hypoxia Assessment & Plan: Acute on chronic hypercapnic and hypoxemic RF 2/2 PNA Duplex neg, minimally elevated d-dimer, unlikely VTE and already on a NOAC (4) HCAP (healthcare-associated pneumonia) (5) Paraplegia (6) Sepsis (7) Suprapubic catheter (8) Restrictive lung disease due to kyphoscoliosis (9) Decubitus skin ulcer (10) Spina bifida (11) Anemia, acute (12) 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 Sanabria * Good pulmonary hygiene: duonebs and mucomyst q4 * She had recurrent PE as outpatient. Cont eliquis 5 mg bid and monitor H/H Respiratory: CXR, ABG Cardiac: stop pressors, continue to monitor HR/BP Renal: F/U I&O Infectious Disease: check cultures Gastrointestinal: adjust feedings Hematologic: transfuse if hgb<8.5 Disposition: keep in ICU Time Spent (Minutes): 50 Notes Reviewed: networker Discussed with: nurses Critical Care - Objective Last 24 Hour Vital Signs Date Time Temp Pulse Resp B/P (MAP) Pulse Ox O2 Delivery O2 Flow Rate FiO2 08/16/19 21:00 99 24 110/76 (87) 98 08/16/19 20:00 4.0 08/16/19 20:00 99.6 104 24 123/91 (102) 98 08/16/19 19:48 95 20 100 Nasal Cannula 4.0 36 08/16/19 19:28 90 20 99 Nasal Cannula 4.0 36 08/16/19 19:28 99 Nasal Cannula 4.0 36 08/16/19 19:00 94 21 113/75 (88) 100 08/16/19 18:00 88 15 100/56 (71) 97 08/16/19 17:00 93 20 101/51 (68) 95 08/16/19 16:19 93 08/16/19 16:00 Nasal Cannula 4.0 Nasal Cannula 4.0 08/16/19 16:00 4.0 08/16/19 16:00 99.2 97 21 110/57 (74) 99 08/16/19 15:54 98 20 98 Mechanical Ventilator 30 08/16/19 15:45 99 20 100 Nasal Cannula 4.0 36 94 20 96 08/16/19 15:00 92 20 108/70 (83) 99 08/16/19 14:00 89 16 92/54 (67) 100 08/16/19 13:00 90 14 92/55 (67) 100 08/16/19 12:00 Nasal Cannula 4.0 Nasal Cannula 4.0 08/16/19 12:00 99.5 100 23 91/60 (70) 99 08/16/19 12:00 93 08/16/19 12:00 4.0 08/16/19 11:33 101 08/16/19 11:21 100 20 100 Nasal Cannula 4.0 36 101 20 97 08/16/19 11:00 91 14 115/78 (90) 97 08/16/19 10:00 89 17 106/62 (77) 99 08/16/19 09:00 93 17 106/67 (80) 91 08/16/19 08:00 99.6 95 17 101/65 (77) 96 08/16/19 08:00 Nasal Cannula 4.0 Nasal Cannula 4.0 08/16/19 08:00 4.0 08/16/19 07:54 100 08/16/19 07:20 91 20 100 Nasal Cannula 4.0 36 87 20 97 08/16/19 07:00 89 14 102/60 (74) 100 08/16/19 06:00 89 17 116/67 (83) 99 08/16/19 05:00 94 20 107/65 (79) 99 1/25/20 04:00 99.4 108 19 100/69 (79) 100 08/16/19 04:00 105 08/16/19 04:00 Nasal Cannula 4.0 Nasal Cannula 4.0 08/16/19 04:00 4.0 08/16/19 03:07 94 19 100 Nasal Cannula 40 90 18 97 08/16/19 03:00 91 17 103/62 (76) 100 08/16/19 02:00 91 15 97/58 (71) 100 08/16/19 01:00 105 17 103/65 (78) 99 08/16/19 00:00 99.2 100 17 104/63 (77) 100 08/16/19 00:00 101 08/16/19 00:00 Nasal Cannula 4.0 Nasal Cannula 4.0 08/16/19 00:00 4.0 08/15/19 23:00 95 18 118/75 (89) 08/15/19 22:49 97 20 100 Nasal Cannula 40 93 18 99 Status: awake Lungs: rhonchi Heart: HR/BP stable Abdomen: soft, non-tender Extremities: edema Accucheck: 114 Critical Care - Subjective ROS Limited/Unobtainable: Yes Condition: improving FI02: 36 Vent Support Breath Rate: 16 Vent Support Mode: BiLevel Vent Tidal Volume: 400 Sputum Amount: Small PEEP: 5.0 PIP: 22 Tube Feeding Amount: 45 I&O: Intake and Output 08/15/19 08/16/19 19:00 07:00 Intake Total 480 ml 840 ml Output Total 350 ml 535 ml Balance 130 ml 305 ml Intake Free Water 400 ml 400 ml Tube Feeding 80 ml 380 ml Other 60 ml Output Urine Total 350 ml 535 ml Subjective: extubated positive secretions cough stronger requriing frequent suctioing q 2 hours though positive uop no fever no distress awake and follows commands wears bipap ET-Tube: 7.5 ET Position: 23 Labs: Current Medications Medications (Trade) Dose Ordered Sig/Sandeep Route PRN Reason Start Time Stop Time Status Last Admin Dose Admin Acetylcysteine (Mucomyst) 400 mg Q4HRT [facility] 08/16/19 11:00 09/15/19 10:59 08/16/19 19:28 Albuterol/ Ipratropium (Albuterol/ Ipratropium) 3 ml Q4HRT [facility] 08/12/19 11:00 08/17/19 10:59 08/16/19 19:28 Apixaban (Eliquis) 5 mg BID NGT 08/16/19 09:00 09/11/19 17:59 08/16/19 17:28 Chlorhexidine Gluconate (Debora-Hex 2%) 1 applic DAILY@2000 TOPIC 08/13/19 20:00 09/12/19 19:59 08/16/19 20:34 Divalproex Sodium (Depakote Sprinkles) 500 mg Q12HR NG 08/15/19 21:00 09/14/19 20:59 08/16/19 20:34 Metoclopramide HCl (Reglan) 5 mg Q6H PRN IVP Nausea & Vomiting 08/04/19 10:00 09/03/19 09:59 Pantoprazole (Protonix) 40 mg DAILY IV 08/01/19 09:00 08/31/19 08:59 08/16/19 08:21 Laboratory Tests Test 08/16/19 08:05 White Blood Count 14.9 K/UL (4.8-10.8) H Red Blood Count 4.20 M/UL (4.20-5.40) Hemoglobin 10.5 G/DL (12.0-16.0) L Hematocrit 32.0 % (37.0-47.0) L Mean Corpuscular Volume 76 FL (80-99) L Mean Corpuscular Hemoglobin 24.9 PG (27.0-31.0) L Mean Corpuscular Hemoglobin Concent 32.7 G/DL (32.0-36.0) Red Cell Distribution Width 21.8 % (11.6-14.8) H Platelet Count 360 K/UL (150-450) Mean Platelet Volume 5.5 FL (6.5-10.1) L Neutrophils (%) (Auto) 77.1 % (45.0-75.0) H Lymphocytes (%) (Auto) 14.5 % (20.0-45.0) L Monocytes (%) (Auto) 5.3 % (1.0-10.0) Eosinophils (%) (Auto) 2.3 % (0.0-3.0) Basophils (%) (Auto) 0.8 % (0.0-2.0) Sodium Level 147 MMOL/L (136-145) H Potassium Level 3.6 MMOL/L (3.5-5.1) Chloride Level 110 MMOL/L (98-107) H Carbon Dioxide Level 31 MMOL/L (21-32) Anion Gap 6 mmol/L (5-15) Blood Urea Nitrogen 18 mg/dL (7-18) Creatinine 0.3 MG/DL (0.55-1.30) L Estimat Glomerular Filtration Rate > 60 mL/min (>60) Glucose Level 117 MG/DL (74-106) H Calcium Level 8.4 MG/DL (8.5-10.1) L Clara Billingsley DO Aug 16, 2019 22:27
--- NOTE | 2019-08-16 23:19 | NUR ---
RESPIRATORY NOTE: Pt placed on BiPAP for nightly use. Pt now on BiPAP 15/10, backup rate 14, 35%. Pt on a Full Face mask, skin intact, no redness/breakdowns noted. Foam tape applied on pt's forehead/cheeks/chin to prevent mask irritations. Pt alert/awake, follows commands. B/S guillermo. rhonchi, sxn small to large amounts of thick, quiroz-brown, bloody secretions. BiPAP plugged into red outlet, alarms on & audible. Pt in no apparent distress at this time. Will continue to monitor pt.
--- NOTE | 2019-08-16 23:20 | NUR ---
NURSE NOTES: Patient on BiPAP full face mask 15/10, 35% satting 100%. HOB elevated. Suctioned patient with small amounts of thick quiroz brownish bloody secretions. patient on Eliquiz medication. Oral care provided. denies any pain or discomfort. skin warm and dry to touch.patient teaching provided regarding BIPAP and to keep bipap on explained the importance v/s risk and benefits. Call light within easy reach. .
[2019-08-17] VITALS (25 sets, daily range): BP systolic 83–115; BP diastolic 52–73
--- NOTE | 2019-08-17 01:20 | NUR ---
NURSE NOTES: patient in bed sleeping comfortably. NO complain of pain or discomfort. skin warm and dry to touch. turned and repositioned. BIPAP on fi02 35% satting 100% tolerated well. frequent visual checks continued. will continue plan of care.
--- NOTE | 2019-08-17 02:45 | Progress Note ---
DATE: 08/16/2019 SUBJECTIVE: The patient has The patient was seen on 08/15/2019. The patient is hitting staff. The patient was started on Depakote. MENTAL STATUS EXAMINATION: The patient is alert. Minimally verbal. Mood is agitated. Affect is flat. Thought process is concrete. Thought content, no suicidal or homicidal ideation. ASSESSMENT: 2. Mood disorder. PLAN: We will continue current psychotropic medications. Kobi Reyes M.D. DR: SAVANNA JOB#: [id number] CC: IZAIAH
[2019-08-17] MEDS: Acetylcysteine 20% Soln 4ml HHN SCH ×6 (03:16→22:33)
[2019-08-17] MEDS: Albuterol/Ipratropium 3ml neb HHN SCH ×5 (03:16→22:33)
--- NOTE | 2019-08-17 03:20 | NUR ---
NURSE NOTES: Bed bath given. patient with x1 large diarrhea, kept clean and dry. comfort measure provided.
--- NOTE | 2019-08-17 05:20 | NUR ---
NURSE NOTES: patient in bed slepping Addendum: 08/17/19 at 0728 by GUILHERME HOLDER RN wrong chart
--- NOTE | 2019-08-17 05:20 | NUR ---
NURSE NOTES: patient in bed sleeping comfortably. no fever. no diarrhea no n/v. HOB elevated. on BIPAP fi02 35% satting 100%. contact isolation maintained and observed. On P200 mattress for wound management. will continue plan of care.
[2019-08-17 07:08] LABS: ALANINE AMINOTRANSFERASE 19 U/L (12-78); ALBUMIN 2.5 G/DL (3.4-5.0); ALBUMIN/GLOBULIN RATIO 0.5 (1.0-2.7); ALKALINE PHOSPHATASE 74 U/L (46-116); ANION GAP 7 mmol/L (5-15); ASPARTATE AMINO TRANSFERASE 7 U/L (15-37); BILIRUBIN,TOTAL 0.4 MG/DL (0.2-1.0); BLOOD UREA NITROGEN 13 mg/dL (7-18); CARBON DIOXIDE 32 MMOL/L (21-32); CHLORIDE 106 MMOL/L (98-107); CREATININE 0.4 MG/DL (0.55-1.30); POTASSIUM 3.1 MMOL/L (3.5-5.1); SODIUM 144 MMOL/L (136-145)
--- NOTE | 2019-08-17 07:15 | NUR ---
HAND-OFF: Report given to Ricardo CARTER.
--- NOTE | 2019-08-17 07:16 | NUR ---
NURSE NOTES: Report received from EMMA Triplett. Pt is awake and alert. Able to answer for simple questions and verbalize needs at times with mental delay. Spinal bifida noted. Sinus tachy 101 on general assignment reporter. On N/C 3L. O2 sat 98-100%. Thick secretion noted and suctioned via nares as needed. Right nare NGT in place receiving Vital AF 1.2 at 45cc/hr. No residual noted. Suprapubic catheter in place draining to gravity. JASON PICC line patent and asymptomatic. Bed in lowest position. Side rails up x3. Call light within reach. Will resume plan of care.
--- NOTE | 2019-08-17 07:25 | General Progress Note ---
Assessment/Plan Problem List: (1) Spina bifida ICD Codes: Q05.9 - Spina bifida, unspecified SNOMED: 70551446 Qualifiers: Qualified Codes: Q05.4 - Unspecified spina bifida with hydrocephalus (2) Respiratory failure with hypoxia ICD Codes: J96.91 - Respiratory failure, unspecified with hypoxia SNOMED: 85057732620240157 Qualifiers: Qualified Codes: J96.21 - Acute and chronic respiratory failure with hypoxia (3) Dysphagia ICD Codes: R13.10 - Dysphagia, unspecified SNOMED: 77215165, [id number] Status: unchanged Assessment/Plan: extubated ppi repeat labs fu H&H stool ob neg x1 reglan family wants to transfer the patient to [facility] and refusing PEG here at [facility] failed swallow eval pending VAS on Sunday NGTF for now add one dose of imodium replace K will fu Subjective ROS Limited/Unobtainable: No Allergies: Coded Allergies: PENICILLIN G (Verified Allergy, Unknown, 12/02/18) Tolerates cabapenem, cephalosporin PENICILLINS (Unverified Allergy, Unknown, 12/02/18) Objective Last 24 Hour Vital Signs Date Time Temp Pulse Resp B/P (MAP) Pulse Ox O2 Delivery O2 Flow Rate FiO2 08/17/19 07:00 91 16 98/58 (71) 94 08/17/19 06:00 96 17 103/63 (76) 87 08/17/19 05:00 96 19 94/58 (70) 95 08/17/19 04:59 95 21 98 Full Face 35 08/17/19 04:00 Bi-pap 35.0 Bi-pap 35.0 08/17/19 04:00 101 18 96/62 (73) 89 08/17/19 04:00 35 08/17/19 04:00 105 08/17/19 03:37 107 26 99 Full Face 35 08/17/19 03:36 107 26 99 Bi-Pap 35 08/17/19 03:16 103 23 99 Bi-Pap 35 08/17/19 03:00 104 18 115/70 (85) 96 08/17/19 02:00 103 26 113/73 (86) 94 08/17/19 01:00 100 22 107/64 (78) 95 08/17/19 01:00 103 23 97 Full Face 35 08/17/19 00:00 97 08/17/19 00:00 99.3 95 16 99/62 (74) 93 08/17/19 00:00 35 08/17/19 00:00 Bi-pap 35.0 Bi-pap 35.0 08/16/19 23:15 101 26 99 Full Face 35 08/16/19 23:13 103 26 99 Bi-Pap 35 08/16/19 23:00 102 19 117/74 (88) 92 08/16/19 22:53 99 20 98 Nasal Cannula 4.0 36 08/16/19 22:00 97 25 111/74 (86) 99 08/16/19 21:00 99 24 110/76 (87) 98 08/16/19 20:00 Nasal Cannula 4.0 Nasal Cannula 4.0 08/16/19 20:00 4.0 08/16/19 20:00 99.6 104 24 123/91 (102) 98 08/16/19 20:00 103 08/16/19 19:48 95 20 100 Nasal Cannula 4.0 36 08/16/19 19:28 90 20 99 Nasal Cannula 4.0 36 08/16/19 19:28 99 Nasal Cannula 4.0 36 08/16/19 19:00 94 21 113/75 (88) 100 08/16/19 18:00 88 15 100/56 (71) 97 08/16/19 17:00 93 20 101/51 (68) 95 08/16/19 16:19 93 08/16/19 16:00 Nasal Cannula 4.0 Nasal Cannula 4.0 08/16/19 16:00 4.0 08/16/19 16:00 99.2 97 21 110/57 (74) 99 08/16/19 15:54 98 20 98 Mechanical Ventilator 30 08/16/19 15:45 99 20 100 Nasal Cannula 4.0 36 94 20 96 08/16/19 15:00 92 20 108/70 (83) 99 08/16/19 14:00 89 16 92/54 (67) 100 08/16/19 13:00 90 14 92/55 (67) 100 08/16/19 12:00 Nasal Cannula 4.0 Nasal Cannula 4.0 08/16/19 12:00 99.5 100 23 91/60 (70) 99 1/25/20 12:00 93 08/16/19 12:00 4.0 08/16/19 11:33 101 08/16/19 11:21 100 20 100 Nasal Cannula 4.0 36 101 20 97 08/16/19 11:00 91 14 115/78 (90) 97 08/16/19 10:00 89 17 106/62 (77) 99 08/16/19 09:00 93 17 106/67 (80) 91 08/16/19 08:00 99.6 95 17 101/65 (77) 96 08/16/19 08:00 Nasal Cannula 4.0 Nasal Cannula 4.0 08/16/19 08:00 4.0 08/16/19 07:54 100 Intake and Output 08/16/19 08/17/19 19:00 07:00 Intake Total 980 ml 940 ml Output Total 615 ml 325 ml Balance 365 ml 615 ml Intake Free Water 450 ml 400 ml Tube Feeding 530 ml 540 ml Output Urine Total 615 ml 325 ml # Bowel Movements 2 1 Laboratory Tests 08/16/19 08:05: White Blood Count 14.9H, Red Blood Count 4.20, Hemoglobin 10.5L, Hematocrit 32.0L, Mean Corpuscular Volume 76L, Mean Corpuscular Hemoglobin 24.9L, Mean Corpuscular Hemoglobin Concent 32.7, Red Cell Distribution Width 21.8H, Platelet Count 360, Mean Platelet Volume 5.5L, Neutrophils (%) (Auto) 77.1H, Lymphocytes (%) (Auto) 14.5L, Monocytes (%) (Auto) 5.3, Eosinophils (%) (Auto) 2.3, Basophils (%) (Auto) 0.8, Sodium Level 147H, Potassium Level 3.6, Chloride Level 110H, Carbon Dioxide Level 31, Anion Gap 6, Blood Urea Nitrogen 18, Creatinine 0.3L, Estimat Glomerular Filtration Rate > 60, Glucose Level 117H, Calcium Level 8.4L 08/17/19 06:00: Sodium Level 144, Potassium Level 3.1L, Chloride Level 106, Carbon Dioxide Level 32, Anion Gap 7, Blood Urea Nitrogen 13, Creatinine 0.4L, Estimat Glomerular Filtration Rate > 60, Glucose Level 103, Calcium Level 8.0L, Total Bilirubin 0.4, Aspartate Amino Transf (AST/SGOT) 7L, Alanine Aminotransferase ( ALT/SGPT) 19, Alkaline Phosphatase 74, Total Protein 7.3, Albumin 2.5L, Globulin 4.8, Albumin/Globulin Ratio 0.5L Height (Feet): 4 Height (Inches): 10.00 Weight (Pounds): 144 General Appearance: lethargic EENT: normal ENT inspection Neck: supple Cardiovascular: normal rate Respiratory/Chest: decreased breath sounds Abdomen: soft Extremities: non-tender Tim Davis MD Aug 17, 2019 07:25
--- NOTE | 2019-08-17 07:30 | NUR ---
NURSE NOTES: Notified Dr Davis regarding low potassium level and large amount of loose pasty BM. Order for Imodium was entered by Doctor. Will carry out the order.
[2019-08-17 08:18] LABS: BASOPHILS % (AUTO) 0.9 % (0.0-2.0); EOSINOPHILS % (AUTO) 1.9 % (0.0-3.0); HEMATOCRIT 31.4 % (37.0-47.0); HEMOGLOBIN 10.1 G/DL (12.0-16.0); MEAN CORPUSCULAR VOLUME 75 FL (80-99); MONOCYTES % (AUTO) 4.9 % (1.0-10.0); NEUTROPHILS % (AUTO) 69.3 % (45.0-75.0); PLATELET COUNT 335 K/UL (150-450); RED BLOOD COUNT 4.17 M/UL (4.20-5.40); RED CELL DISTRIBUTION WIDTH 20.8 % (11.6-14.8); WHITE BLOOD COUNT 13.4 K/UL (4.8-10.8)
[2019-08-17] MEDS: Pantoprazole Inj IV SCH (08:49)
[2019-08-17] MEDS: Eliquis 5mg tablet NGT SCH ×2 (08:49→17:48)
[2019-08-17] MEDS: Depakote 125mg Sprinkles NG SCH ×2 (08:49→20:47)
--- NOTE | 2019-08-17 09:00 | NUR ---
NURSE NOTES: Eliquis held since pt has bloody secretion via nares. Will closely monitor.
--- NOTE | 2019-08-17 09:30 | NUR ---
NURSE NOTES: Turned and repositioned pt. Oral care done. Pt can verbalize simple needs. Mild fever noted. 99.6. Cooling measures initiated. Will continue to monitor.
--- NOTE | 2019-08-17 12:00 | NUR ---
NURSE NOTES: Pt is comfortably sleeping in bed. Pt is tolerating 3L of N/C. O2 sat 95-98%. Will continue to monitor.
--- NOTE | 2019-08-17 14:20 | Internal Med Progress Note ---
Subjective Date of Service: Aug 17, 2019 Physician Name Niraj Teixeira Attending Physician Wil Masters MD Current Medications Medications (Trade) Dose Ordered Sig/Sandeep Route PRN Reason Start Time Stop Time Status Last Admin Dose Admin Acetylcysteine (Mucomyst) 400 mg Q4HRT [facility] 08/16/19 11:00 09/15/19 10:59 08/17/19 07:06 Albuterol/ Ipratropium (Albuterol/ Ipratropium) 3 ml Q4HRT N 08/17/19 15:00 08/22/19 14:59 Apixaban (Eliquis) 5 mg BID NGT 08/16/19 09:00 09/11/19 17:59 08/16/19 17:28 Chlorhexidine Gluconate (Debora-Hex 2%) 1 applic DAILY@1999 TOPIC 08/13/19 20:00 09/12/19 19:59 08/16/19 20:34 Divalproex Sodium (Depakote Sprinkles) 500 mg Q12HR NG 08/15/19 21:00 09/14/19 20:59 08/17/19 08:49 Metoclopramide HCl (Reglan) 5 mg Q6H PRN IVP Nausea & Vomiting 08/04/19 10:00 09/03/19 09:59 Pantoprazole (Protonix) 40 mg DAILY IV 08/01/19 09:00 08/31/19 08:59 08/17/19 08:49 Allergies: Coded Allergies: PENICILLIN G (Verified Allergy, Unknown, 12/02/18) Tolerates cabapenem, cephalosporin PENICILLINS (Unverified Allergy, Unknown, 12/02/18) ROS Limited/Unobtainable: No Constitutional: Reports: no symptoms HEENT: Reports: no symptoms Cardiovascular: Reports: no symptoms Respiratory: Reports: shortness of breath Gastrointestinal/Abdominal: Reports: no symptoms Genitourinary: Reports: no symptoms Neurologic/Psychiatric: Reports: no symptoms Subjective 49 YO F with pneumonia and respiratory failure. Extubated 08/11/19. Cover for Manny Perdomo-DR Masters. ICU. Tolerating nasal canula Objective Last Vital Signs Date Time Temp Pulse Resp B/P (MAP) Pulse Ox O2 Delivery O2 Flow Rate FiO2 08/17/19 13:00 95 20 97/57 (70) 100 08/17/19 12:00 99.9 08/17/19 12:00 3.0 08/17/19 12:00 Nasal Cannula Room Air 08/17/19 07:06 36 Laboratory Tests Test 08/17/19 06:00 08/17/19 07:45 Sodium Level 144 MMOL/L (136-145) Potassium Level 3.1 MMOL/L (3.5-5.1) L Chloride Level 106 MMOL/L (98-107) Carbon Dioxide Level 32 MMOL/L (21-32) Anion Gap 7 mmol/L (5-15) Blood Urea Nitrogen 13 mg/dL (7-18) Creatinine 0.4 MG/DL (0.55-1.30) L Estimat Glomerular Filtration Rate > 60 mL/min (>60) Glucose Level 103 MG/DL (74-106) Calcium Level 8.0 MG/DL (8.5-10.1) L Total Bilirubin 0.4 MG/DL (0.2-1.0) Aspartate Amino Transf (AST/SGOT) 7 U/L (15-37) L Alanine Aminotransferase (ALT/SGPT) 19 U/L (12-78) Alkaline Phosphatase 74 U/L (46-116) Total Protein 7.3 G/DL (6.4-8.2) Albumin 2.5 G/DL (3.4-5.0) L Globulin 4.8 g/dL Albumin/Globulin Ratio 0.5 (1.0-2.7) L White Blood Count 13.4 K/UL (4.8-10.8) H Red Blood Count 4.17 M/UL (4.20-5.40) L Hemoglobin 10.1 G/DL (12.0-16.0) L Hematocrit 31.4 % (37.0-47.0) L Mean Corpuscular Volume 75 FL (80-99) L Mean Corpuscular Hemoglobin 24.1 PG (27.0-31.0) L Mean Corpuscular Hemoglobin Concent 32.1 G/DL (32.0-36.0) Red Cell Distribution Width 20.8 % (11.6-14.8) H Platelet Count 335 K/UL (150-450) Mean Platelet Volume 5.8 FL (6.5-10.1) L Neutrophils (%) (Auto) 69.3 % (45.0-75.0) Lymphocytes (%) (Auto) 23.0 % (20.0-45.0) Monocytes (%) (Auto) 4.9 % (1.0-10.0) Eosinophils (%) (Auto) 1.9 % (0.0-3.0) Basophils (%) (Auto) 0.9 % (0.0-2.0) Intake and Output 08/16/19 08/17/19 19:00 07:00 Intake Total 980 ml 940 ml Output Total 615 ml 325 ml Balance 365 ml 615 ml Intake Free Water 450 ml 400 ml Tube Feeding 530 ml 540 ml Output Urine Total 615 ml 325 ml # Bowel Movements 2 1 Objective General Appearance: WD/WN, moderate distress EENT: PERRL/EOMI, normal ENT inspection Neck: non-tender, normal alignment, supple Cardiovascular: normal peripheral pulses, normal rate, regular rhythm, no gallop/murmur, no JVD Respiratory/Chest: BIPAP; crackles/rales, rhonchi - bilaterally, expiratory wheezing Abdomen: normal bowel sounds, non tender, soft, no organomegaly, no mass Skin: normal pigmentation, warm/dry Assessment/Plan Problem List: (1) Respiratory failure with hypoxia Assessment & Plan: Tolerating nasal canula. S/P extubation 08/11/19 per pulmonary=Dr Bonilla (2) Pneumonia of both lower lobes Assessment & Plan: See ID note. S/P meropenem and zyvox (3) UTI (urinary tract infection) Assessment & Plan: Pseudamonas, ESBL E. Coli, and vanco resistant enterococcus. See ID note; Dr Sanabria signed off. Await new ID consult= Dr Buck/Milly. S/P meropenem, linezolid and micafugin (4) Sepsis (5) Paraplegia (6) Spina bifida Niraj Teixeira MD Aug 17, 2019 14:20
--- NOTE | 2019-08-17 14:25 | NUR ---
NURSE NOTES: Pt is sleeping in bed. Brother and father at bedside. RT is suctioning patient at bedside and giving her breathing treatment. Small amount of yellow thick secretion noted. Will continue to monitor.
--- NOTE | 2019-08-17 16:08 | NUR ---
NURSE NOTES: Nasal suction done by RT. Moderate amount of thick yellow secretion noted. Brother and father at bedside. Turned and repositioned pt.
--- NOTE | 2019-08-17 17:00 | NUR ---
NURSE NOTES: Cleaned and repositioned pt. Pt is able to verbalize needs. No acute distress noted. Will continue to monitor.
--- NOTE | 2019-08-17 19:20 | NUR ---
HAND-OFF: Report given to Modesto Lambert RN.
--- NOTE | 2019-08-17 19:45 | NUR ---
NURSE NOTES: LE:PATIENT AWOKE, ALERT, ORIENTED X2, RESPIRATION REGULAR, DENIED PAIN OR SOB, ON O2 2 LPM VIA NC, O2 SATURATION OVER 97% NOTED, NGT INTACT AND PATENT, ONGOING VITAL AF 1.2 AT 45ML/HR, NO RESIDUE NOTED, ABDOMEN SOFT, NO BM STATUS, SUPRAPUBIC CATHETER INTACT AND PATENT, RYAN COLOR URINE OUTED, PICC LINE TO LEFT UPPER ARM, INTACT AND PATENT, TKO STATUS, KEPT ASPIRATION PRECAUTION, ON P200 BED, ON BED ALARM AND LOCKED, PROVIDED CALL LIGHT WITHIN REACH, MADE LOWER BED POSITION, WILL CONTINUE TO MONITOR.
[2019-08-17] MEDS: Dyna-Hex 2% Top Sol 2oz TOPIC SCH (19:59)
--- NOTE | 2019-08-17 20:14 | Pulmonolgy Critical Care Note ---
Critical Care - Asmt/Plan Assessment/Plan: Critical Care - Asmt/Plan Assessment/Plan: (1) Pneumonia of both lower lobes Assessment & Plan: VDRF, intubated 07/12/19, S/P FOB 07/12/19; Reintubated ; extubated 08/11/19 (2) Catheter-associated urinary tract infection Assessment & Plan: PsA and proteus - s/p treatment (3) Respiratory failure with hypoxia Assessment & Plan: Acute on chronic hypercapnic and hypoxemic RF 2/2 PNA Duplex neg, minimally elevated d-dimer, unlikely VTE and already on a NOAC (4) HCAP (healthcare-associated pneumonia) (5) Paraplegia (6) Sepsis (7) Suprapubic catheter (8) Restrictive lung disease due to kyphoscoliosis (9) Decubitus skin ulcer (10) Spina bifida (11) Anemia, acute (12) 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 Cont eliquis 5 mg bid and monitor H/H Time Spent (Minutes): 40 Notes Reviewed: order packer, cardio Discussed with: nurses Critical Care - Objective Last 24 Hour Vital Signs Date Time Temp Pulse Resp B/P (MAP) Pulse Ox O2 Delivery O2 Flow Rate FiO2 08/17/19 19:00 94 20 96/58 (71) 99 08/17/19 19:00 93 18 95/58 (70) 95 08/17/19 18:58 91 22 100 Nasal Cannula 4.0 36 08/17/19 18:43 91 19 97 Nasal Cannula 4.0 36 08/17/19 18:43 97 Nasal Cannula 4.0 36 08/17/19 18:00 93 18 95/58 (70) 95 08/17/19 17:00 98.6 98 20 96/63 (74) 99 08/17/19 16:17 93 08/17/19 16:00 3.0 08/17/19 16:00 95 19 102/68 (79) 94 08/17/19 16:00 95 22 104/72 (83) 98 08/17/19 16:00 Nasal Cannula 3.0 Room Air 3.0 08/17/19 15:00 95 19 102/68 (79) 94 08/17/19 14:30 92 20 98 Nasal Cannula 3.0 32 90 20 98 08/17/19 14:00 94 16 109/65 (80) 99 08/17/19 13:00 95 20 97/57 (70) 100 08/17/19 12:00 99.9 95 18 83/55 (64) 100 08/17/19 12:00 3.0 08/17/19 12:00 Nasal Cannula 3.0 Room Air 3.0 08/17/19 11:41 103 08/17/19 11:00 99 16 93/55 (68) 99 08/17/19 10:00 101 19 91/52 (65) 99 08/17/19 09:00 97 19 111/61 (78) 94 08/17/19 08:00 99.6 103 23 107/58 (74) 92 08/17/19 08:00 4.0 08/17/19 08:00 Nasal Cannula 4.0 Room Air 4.0 08/17/19 07:39 104 08/17/19 07:06 99 Nasal Cannula 4.0 36 08/17/19 07:06 93 20 99 Nasal Cannula 4.0 36 92 20 97 08/17/19 07:00 91 16 98/58 (71) 94 08/17/19 06:00 96 17 103/63 (76) 87 08/17/19 05:00 96 19 94/58 (70) 95 08/17/19 04:59 95 21 98 Full Face 35 08/17/19 04:00 Bi-pap 35.0 Bi-pap 35.0 08/17/19 04:00 101 18 96/62 (73) 89 08/17/19 04:00 35 08/17/19 04:00 105 08/17/19 03:37 107 26 99 Full Face 35 08/17/19 03:36 107 26 99 Bi-Pap 35 08/17/19 03:16 103 23 99 Bi-Pap 35 08/17/19 03:00 104 18 115/70 (85) 96 08/17/19 02:00 103 26 113/73 (86) 94 08/17/19 01:00 100 22 107/64 (78) 95 08/17/19 01:00 103 23 97 Full Face 35 08/17/19 00:00 97 08/17/19 00:00 99.3 95 16 99/62 (74) 93 08/17/19 00:00 35 08/17/19 00:00 Bi-pap 35.0 Bi-pap 35.0 08/16/19 23:15 101 26 99 Full Face 35 08/16/19 23:13 103 26 99 Bi-Pap 35 08/16/19 23:00 102 19 117/74 (88) 92 08/16/19 22:53 99 20 98 Nasal Cannula 4.0 36 08/16/19 22:00 97 25 111/74 (86) 99 08/16/19 21:00 99 24 110/76 (87) 98 Status: awake Lungs: rhonchi Heart: HR/BP stable Abdomen: soft, non-tender Extremities: edema Accucheck: 114 Critical Care - Subjective ROS Limited/Unobtainable: Yes Condition: improving FI02: 36 Vent Support Breath Rate: 16 Vent Support Mode: BiLevel Vent Tidal Volume: 400 Sputum Amount: Small PEEP: 5.0 PIP: 22 Tube Feeding Amount: 45 I&O: Intake and Output 08/16/19 08/17/19 19:00 07:00 Intake Total 980 ml 940 ml Output Total 615 ml 325 ml Balance 365 ml 615 ml Intake Free Water 450 ml 400 ml Tube Feeding 530 ml 540 ml Output Urine Total 615 ml 325 ml # Bowel Movements 2 1 Subjective: extubated positive secretions cough stronger still requiring frequent suctioing q 2 hours though positive uop no fever no distress awake and follows commands wears bipap at night not requiring to the day CXR: no new cxr ET-Tube: 7.5 ET Position: 23 Labs: Current Medications Medications (Trade) Dose Ordered Sig/Sandeep Route PRN Reason Start Time Stop Time Status Last Admin Dose Admin Acetylcysteine (Mucomyst) 400 mg Q4HRT HHN 08/16/19 11:00 09/15/19 10:59 08/17/19 18:43 Albuterol/ Ipratropium (Albuterol/ Ipratropium) 3 ml Q4HRT HHN 08/17/19 15:00 08/22/19 14:59 08/17/19 18:43 Apixaban (Eliquis) 5 mg BID NGT 08/16/19 09:00 09/11/19 17:59 08/16/19 17:28 Chlorhexidine Gluconate (Debora-Hex 2%) 1 applic DAILY@2000 TOPIC 08/13/19 20:00 09/12/19 19:59 08/17/19 19:59 Divalproex Sodium (Depakote Sprinkles) 500 mg Q12HR NG 08/15/19 21:00 09/14/19 20:59 08/17/19 08:49 Metoclopramide HCl (Reglan) 5 mg Q6H PRN IVP Nausea & Vomiting 08/04/19 10:00 09/03/19 09:59 Pantoprazole (Protonix) 40 mg DAILY IV 08/01/19 09:00 08/31/19 08:59 08/17/19 08:49 Laboratory Tests Test 08/17/19 06:00 08/17/19 07:45 Sodium Level 144 MMOL/L (136-145) Potassium Level 3.1 MMOL/L (3.5-5.1) L Chloride Level 106 MMOL/L (98-107) Carbon Dioxide Level 32 MMOL/L (21-32) Anion Gap 7 mmol/L (5-15) Blood Urea Nitrogen 13 mg/dL (7-18) Creatinine 0.4 MG/DL (0.55-1.30) L Estimat Glomerular Filtration Rate > 60 mL/min (>60) Glucose Level 103 MG/DL (74-106) Calcium Level 8.0 MG/DL (8.5-10.1) L Total Bilirubin 0.4 MG/DL (0.2-1.0) Aspartate Amino Transf (AST/SGOT) 7 U/L (15-37) L Alanine Aminotransferase (ALT/SGPT) 19 U/L (12-78) Alkaline Phosphatase 74 U/L (46-116) Total Protein 7.3 G/DL (6.4-8.2) Albumin 2.5 G/DL (3.4-5.0) L Globulin 4.8 g/dL Albumin/Globulin Ratio 0.5 (1.0-2.7) L White Blood Count 13.4 K/UL (4.8-10.8) H Red Blood Count 4.17 M/UL (4.20-5.40) L Hemoglobin 10.1 G/DL (12.0-16.0) L Hematocrit 31.4 % (37.0-47.0) L Mean Corpuscular Volume 75 FL (80-99) L Mean Corpuscular Hemoglobin 24.1 PG (27.0-31.0) L Mean Corpuscular Hemoglobin Concent 32.1 G/DL (32.0-36.0) Red Cell Distribution Width 20.8 % (11.6-14.8) H Platelet Count 335 K/UL (150-450) Mean Platelet Volume 5.8 FL (6.5-10.1) L Neutrophils (%) (Auto) 69.3 % (45.0-75.0) Lymphocytes (%) (Auto) 23.0 % (20.0-45.0) Monocytes (%) (Auto) 4.9 % (1.0-10.0) Eosinophils (%) (Auto) 1.9 % (0.0-3.0) Basophils (%) (Auto) 0.9 % (0.0-2.0) Clara Billingsley DO Aug 17, 2019 20:14
--- NOTE | 2019-08-17 20:36 | NUR ---
NURSE NOTES: SEEN THE PATIENT BY DR. EVANS, MADE NEW ORDER, WILL FOLLOW UP.
--- NOTE | 2019-08-17 22:25 | NUR ---
NURSE NOTES: PATIENT ASLEEP STATUS, NO PAIN OR SOB NOTED AT THIS TIME.
--- NOTE | 2019-08-17 23:00 | NUR ---
RESPIRATORY NOTE: Pt placed on BiPAP for nightly use. Pt now on BiPAP 15/10, backup rate 14, 35%. Pt on a Full Face mask, skin intact, no redness/breakdowns noted. Foam tape applied on pt's forehead/cheeks/chin to prevent mask irritations. Pt alert/awake, follows commands. B/S guillermo. rhonchi, sxn small to moderate amounts of thick, quiroz-brown secretions. BiPAP plugged into red outlet, alarms on & audible. Pt in no apparent distress at this time. Will continue to monitor pt.
[2019-08-18] VITALS (26 sets, daily range): BP systolic 78–103; BP diastolic 46–74
--- NOTE | 2019-08-18 01:34 | NUR ---
NURSE NOTES: ON BIPAP, I/E 15/10, FIO2 35%, RATE 14, O2 SATURATION OVER 98% NOTED.
--- NOTE | 2019-08-18 02:29 | NUR ---
NURSE NOTES: PATIENT SLEEPING STATUS, NO DISTRESS NOTED.
[2019-08-18] MEDS: Albuterol/Ipratropium 3ml neb HHN SCH ×6 (03:05→23:42)
[2019-08-18] MEDS: Acetylcysteine 20% Soln 4ml HHN SCH ×6 (03:05→23:42)
--- NOTE | 2019-08-18 04:30 | NUR ---
NURSE NOTES: MORNING CARE WAS DONE, NO BM NOTED.
[2019-08-18 05:52] LABS: BASOPHILS % (AUTO) 0.9 % (0.0-2.0); EOSINOPHILS % (AUTO) 2.8 % (0.0-3.0); HEMATOCRIT 29.7 % (37.0-47.0); HEMOGLOBIN 9.4 G/DL (12.0-16.0); LYMPHOCYTES % (AUTO) 21.8 % (20.0-45.0); MEAN CORPUSCULAR VOLUME 76 FL (80-99); MONOCYTES % (AUTO) 4.9 % (1.0-10.0); NEUTROPHILS % (AUTO) 69.6 % (45.0-75.0); PLATELET COUNT 287 K/UL (150-450); RED CELL DISTRIBUTION WIDTH 20.8 % (11.6-14.8); WHITE BLOOD COUNT 11.4 K/UL (4.8-10.8)
--- NOTE | 2019-08-18 06:16 | NUR ---
NURSE NOTES: NO ACUTE DISTRESS NOTED AT THIS SHIFT.
[2019-08-18 06:18] LABS: ALANINE AMINOTRANSFERASE 16 U/L (12-78); ALBUMIN 2.4 G/DL (3.4-5.0); ALBUMIN/GLOBULIN RATIO 0.5 (1.0-2.7); ALKALINE PHOSPHATASE 64 U/L (46-116); ANION GAP 3 mmol/L (5-15); ASPARTATE AMINO TRANSFERASE 8 U/L (15-37); BILIRUBIN,TOTAL 0.4 MG/DL (0.2-1.0); BLOOD UREA NITROGEN 11 mg/dL (7-18); CALCIUM 8.1 MG/DL (8.5-10.1); CARBON DIOXIDE 35 MMOL/L (21-32); CHLORIDE 102 MMOL/L (98-107); CREATININE 0.3 MG/DL (0.55-1.30); POTASSIUM 3.4 MMOL/L (3.5-5.1); SODIUM 139 MMOL/L (136-145)
--- NOTE | 2019-08-18 07:18 | NUR ---
HAND-OFF: Report given to EMMA BOOKER.
--- NOTE | 2019-08-18 07:19 | NUR ---
NURSE NOTES: Pt received from EMMA Salvador in stable condition without cardiopulmonary distress. Pt is awake, AAO x1, able to follow commands, PERRLA+ with 3mm pupils bilaterally. Pt noted SR to cardiac surgeon with HR 89-95 bpm. Radial and dorsalis pedis pulses noted weak 1+ bilaterally. Cap refill 3 sec. No edema noted. Extremities are cold to touch. Pt is receiving breathing tx via simple mask 10 L O2. Right upper lung lobe and bilateral lower lobes noted diminished. upper left lobe noted with rhonchi upon auscultation. Pt has right nares NGT running Vital AF 1.2 at 45 cc/hr with no residuals noted at this time. Bowel sounds noted active on all abd quadrants. abd is round, soft, and non-tender. Suprapubic catheter noted draining yellow urine with small amount of sedimentation. Skin is intact. Pt has a JASON PICC running NS TKO at 10cc/hr. Pt denies pain at this time. Bed in lowest position, alarm on, side rails up x 2, Call light within reach. Will continue to monitor. Addendum: 08/18/19 at 0942 by Mitra Leal RN Amendment: skin alterations noted. Skin is *not intact.
--- NOTE | 2019-08-18 07:35 | NUR ---
NURSE NOTES: Message left for Dr Masters regarding pt's potassium level today of 3.4. Awaiting call back. Breathing Tx complete, pt now on 4L O2 via NC
--- NOTE | 2019-08-18 07:38 | General Progress Note ---
Assessment/Plan Problem List: (1) Spina bifida ICD Codes: Q05.9 - Spina bifida, unspecified SNOMED: 74668234 Qualifiers: Qualified Codes: Q05.4 - Unspecified spina bifida with hydrocephalus (2) Respiratory failure with hypoxia ICD Codes: J96.91 - Respiratory failure, unspecified with hypoxia SNOMED: 70322631350702563 Qualifiers: Qualified Codes: J96.21 - Acute and chronic respiratory failure with hypoxia (3) Dysphagia ICD Codes: R13.10 - Dysphagia, unspecified SNOMED: 02214049, [id number] Status: unchanged Assessment/Plan: extubated ppi repeat labs fu H&H stool ob neg x1 samanlan family wants to transfer the patient to [facility] and refusing PEG here at [place] failed swallow eval pending VAS for today NGTF for now will fu Subjective ROS Limited/Unobtainable: No Allergies: Coded Allergies: PENICILLIN G (Verified Allergy, Unknown, 12/02/18) Tolerates cabapenem, cephalosporin PENICILLINS (Unverified Allergy, Unknown, 12/02/18) Objective Last 24 Hour Vital Signs Date Time Temp Pulse Resp B/P (MAP) Pulse Ox O2 Delivery O2 Flow Rate FiO2 08/18/19 07:25 99 Nasal Cannula 4.0 36 08/18/19 07:23 82 21 100 Nasal Cannula 4.0 36 84 20 99 08/18/19 07:00 76 15 92/53 (66) 100 08/18/19 06:00 79 16 89/57 (68) 100 08/18/19 05:00 84 15 98/61 (73) 100 08/18/19 04:56 86 16 99 Full Face 35 08/18/19 04:21 87 08/18/19 04:08 84 19 91/53 (66) 100 08/18/19 04:00 35 08/18/19 04:00 97.9 91 18 80/50 (60) 96 08/18/19 04:00 Bi-pap 4.0 Bi-pap 4.0 08/18/19 03:21 91 21 99 Full Face 35 08/18/19 03:20 92 23 99 Bi-Pap 35 08/18/19 03:05 78 19 100 Bi-Pap 35 08/18/19 03:00 80 16 95/54 (68) 100 08/18/19 02:00 86 19 88/52 (64) 96 08/18/19 01:12 88 17 99 Full Face 35 08/18/19 01:00 90 18 98/57 (71) 99 08/18/19 00:36 87 16 94/74 (81) 97 08/18/19 00:00 99.3 82 16 87/48 (61) 95 08/18/19 00:00 35 08/18/19 00:00 Bi-pap 4.0 Bi-pap 4.0 08/17/19 23:29 87 08/17/19 23:00 93 15 88/52 (64) 93 08/17/19 22:53 96 22 99 Full Face 35 08/17/19 22:49 95 23 100 Bi-Pap 35 08/17/19 22:33 88 17 100 Nasal Cannula 4.0 36 08/17/19 22:00 85 17 91/53 (66) 100 08/17/19 21:00 94 20 98/59 (72) 99 08/17/19 20:00 99.0 101 23 100/69 (79) 100 08/17/19 20:00 Nasal Cannula 4.0 Nasal Cannula 4.0 08/17/19 20:00 4.0 08/17/19 19:00 97 08/17/19 19:00 94 20 96/58 (71) 99 08/17/19 19:00 93 18 95/58 (70) 95 08/17/19 18:58 91 22 100 Nasal Cannula 4.0 36 08/17/19 18:43 91 19 97 Nasal Cannula 4.0 36 08/17/19 18:43 97 Nasal Cannula 4.0 36 08/17/19 18:00 93 18 95/58 (70) 95 08/17/19 17:00 98.6 98 20 96/63 (74) 99 08/17/19 16:17 93 08/17/19 16:00 3.0 08/17/19 16:00 95 19 102/68 (79) 94 08/17/19 16:00 95 22 104/72 (83) 98 08/17/19 16:00 Nasal Cannula 3.0 Room Air 3.0 08/17/19 15:00 95 19 102/68 (79) 94 08/17/19 14:30 92 20 98 Nasal Cannula 3.0 32 90 20 98 08/17/19 14:00 94 16 109/65 (80) 99 08/17/19 13:00 95 20 97/57 (70) 100 08/17/19 12:00 99.9 95 18 83/55 (64) 100 08/17/19 12:00 3.0 08/17/19 12:00 Nasal Cannula 3.0 Room Air 3.0 08/17/19 11:41 103 08/17/19 11:00 99 16 93/55 (68) 99 08/17/19 10:00 101 19 91/52 (65) 99 08/17/19 09:00 97 19 111/61 (78) 94 08/17/19 08:00 99.6 103 23 107/58 (74) 92 08/17/19 08:00 4.0 08/17/19 08:00 Nasal Cannula 4.0 Room Air 4.0 08/17/19 07:39 104 Intake and Output 08/17/19 08/18/19 19:00 07:00 Intake Total 1190 ml 1020 ml Output Total 810 ml 850 ml Balance 380 ml 170 ml Intake Free Water 400 ml 400 ml IV Total 200 ml Tube Feeding 540 ml 540 ml Other 50 ml 80 ml Output Urine Total 810 ml 850 ml Laboratory Tests 08/17/19 07:45: White Blood Count 13.4H, Red Blood Count 4.17L, Hemoglobin 10.1L, Hematocrit 31.4L, Mean Corpuscular Volume 75L, Mean Corpuscular Hemoglobin 24.1L, Mean Corpuscular Hemoglobin Concent 32.1, Red Cell Distribution Width 20.8H, Platelet Count 335, Mean Platelet Volume 5.8L, Neutrophils (%) (Auto) 69.3, Lymphocytes (%) (Auto) 23.0, Monocytes (%) (Auto) 4.9, Eosinophils (%) (Auto) 1.9, Basophils (%) (Auto) 0.9 08/18/19 03:30: White Blood Count 11.4H, Red Blood Count 3.90L, Hemoglobin 9.4L, Hematocrit 29.7L, Mean Corpuscular Volume 76L, Mean Corpuscular Hemoglobin 24.2L, Mean Corpuscular Hemoglobin Concent 31.8L, Red Cell Distribution Width 20.8H, Platelet Count 287, Mean Platelet Volume 6.1L, Neutrophils (%) (Auto) 69.6, Lymphocytes (%) (Auto) 21.8, Monocytes (%) (Auto) 4.9, Eosinophils (%) (Auto) 2.8, Basophils (%) (Auto) 0.9, Sodium Level 139, Potassium Level 3.4L, Chloride Level 102, Carbon Dioxide Level 35H, Anion Gap 3L, Blood Urea Nitrogen 11, Creatinine 0.3L, Estimat Glomerular Filtration Rate > 60, Glucose Level 109H, Calcium Level 8.1L, Total Bilirubin 0.4, Aspartate Amino Transf (AST/SGOT) 8L, Alanine Aminotransferase (ALT/SGPT) 16, Alkaline Phosphatase 64, Total Protein 7.2, Albumin 2.4L, Globulin 4.8, Albumin/Globulin Ratio 0.5L Height (Feet): 4 Height (Inches): 10.00 Weight (Pounds): 111 General Appearance: lethargic EENT: normal ENT inspection Neck: supple Cardiovascular: normal rate Respiratory/Chest: decreased breath sounds Abdomen: normal bowel sounds, non tender, soft Extremities: non-tender Tim Davis MD Aug 18, 2019 07:38
[2019-08-18] MEDS: Depakote 125mg Sprinkles NG SCH ×2 (08:53→20:31)
[2019-08-18] MEDS: Eliquis 5mg tablet NGT SCH ×2 (08:53→18:00)
[2019-08-18] MEDS: Pantoprazole Inj IV SCH (08:53)
--- NOTE | 2019-08-18 09:00 | NUR ---
NURSE NOTES: Received call back from Dr Masters for 40 meQ K-Dur via NGT once. telephone order read back and verified.
--- NOTE | 2019-08-18 10:00 | NUR ---
NURSE NOTES: Pt repositioned and suctioned, no acute distress noted, oral care provided. Will continue to monitor.
--- NOTE | 2019-08-18 11:07 | NUR ---
RADIOLOGY DEPT., CHEST X-RAY DONE.-P.DYE
--- NOTE | 2019-08-18 11:09 | NUR ---
RD ASSESSMENT & RECOMMENDATIONS SEE CARE ACTIVITY FOR COMPLETE ASSESSMENT DAILY ESTIMATED NEEDS: Needs based on wound, Pulmonary/ 47.6kg abw 25-30 kcals/kg 6057-2104 total kcals 1.25-2 g protein/kg 60-95 g total protein 25-30 mL/kg 5806-5804 total fluid mLs NUTRITION DIAGNOSIS: * Increased kcal/pro needs r/t wound healing as evidenced by h/o spina bifida, adm w/ full thickness wound @ sacrum and resolving pressure injurty @ R-ischium. * Swallowing difficulty R/T respiratory status as evidenced by re-intubated, now extubated, on and off BIPAP, w/ an order for NGT insertion + NGT feeds. CURRENT TF:Vital 1.2 @ 45ml/hr x 24 hrs ENTERAL NUTRITION RECOMMENDATIONS: Glucerna 1.2 @ 45ml/hr x 24 hrs to provide 1080ml, 1296kcal, 65g prot, 875ml free water - Initiate Glucerna 1.2 @ 25ml/hr x 6 hrs - Advance 10ml q 4-6 hrs as tolerated to goal rate. - Water flush per MD/ HOB over 30 degrees. W/ bipap at night, would rec 12 hr daytime feeds: Glucerna 1.2 goal of 90ml /hr x12 hrs, to provide same kcal/ pro as current recs. ADDITIONAL RECOMMENDATIONS: 1) Wound care: add GREGG in 4oz H2O BID via NGT Add VIT C 500mg daily 2) Maintain calibrated bed scale wts 3) NISS for BG control on TF - h/o DM 4) Monitor lytes daily, replete as needed. (low K) 5) Monitor BIPAP usage and ability to feed; consider 12 hrs daytime feeds
--- NOTE | 2019-08-18 11:30 | NUR ---
NURSE NOTES: HIPOLITO Castro at bedside. Per Gloria, pt is indicated for PED placement, recommendation relayed to Dr Davis over phone. Dr Davis to speak with family.
--- NOTE | 2019-08-18 12:00 | NUR ---
HAND-OFF: Report given to EMMA Yanez.
--- NOTE | 2019-08-18 12:05 | Consultation ---
History of Present Illness General Date patient seen: Aug 18, 2019 Chief Complaint: Dyspnea/Respdistress Referring physician: shahana Present Illness HPI 49 y/o F with hx of HTN, Dm2, spina bifida s/p DIRT SHOVELER shunt, decubiti ulcers, wheelchair bound/paraplegic, b/l renal stents, neurogenic bladder s/p suprapubic catheter, recurrent UTIs presented to ED on 07/11/19 with SOB and hypoxia to 88% on RA. She was found to have HAP with respiratory failure and hypoxia and was intubated on 07/12/19. Also was diagnosed with UTI and suprapubic catheter was exchanged on 08/08/19 by urology. Patient has had recurrent episodes of aspiration pneumonia. Speech therapy recommended PEG but family is refusing and requesting transfer to [facility]. Patient was been followed by another ID physician which signed off on 08/12/19. Our group is now consulted for continuation of care as of ID stand point. Patient was extubated on 07/19/19 but required to be re-intubated on 07/31/19 until 08/11/19 due to hypoxia. Patient received 2 weeks of Meropenem and Zyvox. Sp cx on 07/31 and 08/01 are negative. Allergies: Coded Allergies: PENICILLIN G (Verified Allergy, Unknown, 12/02/18) Tolerates cabapenem, cephalosporin PENICILLINS (Unverified Allergy, Unknown, 12/02/18) Medication History Scheduled Apixaban (Eliquis), 5 MG PO BID, (Reported) Apixaban (Eliquis), 5 MG PO BID, (Reported) Ascorbic Acid* (Ascorbic Acid*), 500 MG ORAL TWICE A DAY, (Reported) Ciprofloxacin (Cipro), 500 MG PO EVERY 12 HOURS Docusate Sodium* (Docusate Sodium*), 100 MG ORAL TWICE A DAY, (Reported) Ertapenem Sodium* (INVanz*), 1 GM IVPB Q24H, (Reported) Mirabegron (Myrbetriq), 50 MG PO DAILY, (Reported) Multivitamins* (Multivitamins*), 1 TAB ORAL DAILY, (Reported) Pantoprazole Sodium (Protonix), 40 MG ORAL DAILY, (Reported) Sennosides (Senna), 8.6 MG PO BID, (Reported) Zinc Sulfate (Zinc Sulfate), 220 MG ORAL DAILY, (Reported) Miscellaneous Medications Biotin (Biotin), 1,000 MCG PO, (Reported) Patient History Healthcare decision maker Resuscitation status Full Code Advanced Directive on File Patient History Narrative Pmhx: as above Shx: There is no history of tobacco, alcohol, or drug abuse. The patient lives at home. She is bed ridden with family. Fhx: non contributory Physical Exam Physical Exam Narrative General Appearance: lethargic EENT: normal ENT inspection Neck: supple Cardiovascular: normal rate Respiratory/Chest: decreased breath sounds Abdomen: normal bowel sounds, non tender, soft Extremities: non-tender Last 24 Hour Vital Signs Date Time Temp Pulse Resp B/P (MAP) Pulse Ox O2 Delivery O2 Flow Rate FiO2 08/18/19 10:00 87 20 95/56 (69) 100 08/18/19 09:00 88 19 91/46 (61) 100 08/18/19 08:00 99.3 88 19 90/59 (69) 97 08/18/19 08:00 74 08/18/19 08:00 4.0 08/18/19 08:00 Nasal Cannula 4.0 Nasal Cannula 4.0 Nasal Cannula 4.0 Nasal Cannula 4.0 08/18/19 07:25 99 Nasal Cannula 4.0 36 08/18/19 07:23 82 21 100 Nasal Cannula 4.0 36 84 20 99 08/18/19 07:00 76 15 92/53 (66) 100 08/18/19 06:00 79 16 89/57 (68) 100 08/18/19 05:00 84 15 98/61 (73) 100 08/18/19 04:56 86 16 99 Full Face 35 08/18/19 04:21 87 08/18/19 04:08 84 19 91/53 (66) 100 08/18/19 04:00 35 08/18/19 04:00 97.9 91 18 80/50 (60) 96 08/18/19 04:00 Bi-pap 4.0 Bi-pap 4.0 08/18/19 03:21 91 21 99 Full Face 35 08/18/19 03:20 92 23 99 Bi-Pap 35 08/18/19 03:05 78 19 100 Bi-Pap 35 08/18/19 03:00 80 16 95/54 (68) 100 08/18/19 02:00 86 19 88/52 (64) 96 08/18/19 01:12 88 17 99 Full Face 35 08/18/19 01:00 90 18 98/57 (71) 99 08/18/19 00:36 87 16 94/74 (81) 97 08/18/19 00:00 99.3 82 16 87/48 (61) 95 08/18/19 00:00 35 08/18/19 00:00 Bi-pap 4.0 Bi-pap 4.0 08/17/19 23:29 87 08/17/19 23:00 93 15 88/52 (64) 93 08/17/19 22:53 96 22 99 Full Face 35 08/17/19 22:49 95 23 100 Bi-Pap 35 08/17/19 22:33 88 17 100 Nasal Cannula 4.0 36 08/17/19 22:00 85 17 91/53 (66) 100 08/17/19 21:00 94 20 98/59 (72) 99 08/17/19 20:00 99.0 101 23 100/69 (79) 100 08/17/19 20:00 Nasal Cannula 4.0 Nasal Cannula 4.0 08/17/19 20:00 4.0 08/17/19 19:00 97 08/17/19 19:00 94 20 96/58 (71) 99 08/17/19 19:00 93 18 95/58 (70) 95 08/17/19 18:58 91 22 100 Nasal Cannula 4.0 36 08/17/19 18:43 91 19 97 Nasal Cannula 4.0 36 08/17/19 18:43 97 Nasal Cannula 4.0 36 08/17/19 18:00 93 18 95/58 (70) 95 08/17/19 17:00 98.6 98 20 96/63 (74) 99 08/17/19 16:17 93 08/17/19 16:00 3.0 08/17/19 16:00 95 19 102/68 (79) 94 08/17/19 16:00 95 22 104/72 (83) 98 08/17/19 16:00 Nasal Cannula 3.0 Room Air 3.0 08/17/19 15:00 95 19 102/68 (79) 94 08/17/19 14:30 92 20 98 Nasal Cannula 3.0 32 90 20 98 08/17/19 14:00 94 16 109/65 (80) 99 08/17/19 13:00 95 20 97/57 (70) 100 08/17/19 12:00 99.9 95 18 83/55 (64) 100 08/17/19 12:00 3.0 08/17/19 12:00 Nasal Cannula 3.0 Room Air 3.0 Intake and Output 08/17/19 08/18/19 19:00 07:00 Intake Total 1190 ml 1020 ml Output Total 810 ml 850 ml Balance 380 ml 170 ml Intake Free Water 400 ml 400 ml IV Total 200 ml Tube Feeding 540 ml 540 ml Other 50 ml 80 ml Output Urine Total 810 ml 850 ml Laboratory Tests Test 08/18/19 03:30 White Blood Count 11.4 K/UL (4.8-10.8) H Red Blood Count 3.90 M/UL (4.20-5.40) L Hemoglobin 9.4 G/DL (12.0-16.0) L Hematocrit 29.7 % (37.0-47.0) L Mean Corpuscular Volume 76 FL (80-99) L Mean Corpuscular Hemoglobin 24.2 PG (27.0-31.0) L Mean Corpuscular Hemoglobin Concent 31.8 G/DL (32.0-36.0) L Red Cell Distribution Width 20.8 % (11.6-14.8) H Platelet Count 287 K/UL (150-450) Mean Platelet Volume 6.1 FL (6.5-10.1) L Neutrophils (%) (Auto) 69.6 % (45.0-75.0) Lymphocytes (%) (Auto) 21.8 % (20.0-45.0) Monocytes (%) (Auto) 4.9 % (1.0-10.0) Eosinophils (%) (Auto) 2.8 % (0.0-3.0) Basophils (%) (Auto) 0.9 % (0.0-2.0) Sodium Level 139 MMOL/L (136-145) Potassium Level 3.4 MMOL/L (3.5-5.1) L Chloride Level 102 MMOL/L (98-107) Carbon Dioxide Level 35 MMOL/L (21-32) H Anion Gap 3 mmol/L (5-15) L Blood Urea Nitrogen 11 mg/dL (7-18) Creatinine 0.3 MG/DL (0.55-1.30) L Estimat Glomerular Filtration Rate > 60 mL/min (>60) Glucose Level 109 MG/DL (74-106) H Calcium Level 8.1 MG/DL (8.5-10.1) L Total Bilirubin 0.4 MG/DL (0.2-1.0) Aspartate Amino Transf (AST/SGOT) 8 U/L (15-37) L Alanine Aminotransferase (ALT/SGPT) 16 U/L (12-78) Alkaline Phosphatase 64 U/L (46-116) Total Protein 7.2 G/DL (6.4-8.2) Albumin 2.4 G/DL (3.4-5.0) L Globulin 4.8 g/dL Albumin/Globulin Ratio 0.5 (1.0-2.7) L Height (Feet): 4 Height (Inches): 10.00 Weight (Pounds): 111 Medications Current Medications Medications (Trade) Dose Ordered Sig/Sandeep Route PRN Reason Start Time Stop Time Status Last Admin Dose Admin Acetylcysteine (Mucomyst) 400 mg Q4HRT N 08/16/19 11:00 09/15/19 10:59 08/18/19 07:23 Albuterol/ Ipratropium (Albuterol/ Ipratropium) 3 ml Q4HRT N 08/17/19 15:00 08/22/19 14:59 08/18/19 07:23 Apixaban (Eliquis) 5 mg BID NGT 08/16/19 09:00 09/11/19 17:59 08/18/19 08:53 Chlorhexidine Gluconate (Debora-Hex 2%) 1 applic DAILY@1999 TOPIC 08/13/19 20:00 09/12/19 19:59 08/17/19 19:59 Divalproex Sodium (Depakote Sprinkles) 500 mg Q12HR NG 08/15/19 21:00 09/14/19 20:59 08/18/19 08:53 Metoclopramide HCl (Reglan) 5 mg Q6H PRN IVP Nausea & Vomiting 08/04/19 10:00 09/03/19 09:59 Pantoprazole (Protonix) 40 mg DAILY IV 08/01/19 09:00 08/31/19 08:59 08/18/19 08:53 Assessment/Plan Assessment/Plan: Abx: Micafungin 08/03-08/06 Meropenem 07/28-08/11 Linezolid 07/28-08/11 Assessment: Recurrent aspiration pneumonia, sp rx -08/14 CXR: Cardiomegaly. Mild interstitial congestion, unchanged over 3 days -07/31, 08/01 sp cx normal resp sunny -07/12 sp cx normal -07/12 SP FLEXIBLE FIBEROPTIC BRONCHOSCOPY WITH BRONCHOALVEOLAR LAVAGE AND THERAPEUTIC ASPIRATION OF MUCOUS PLUG LEFT LUNG -07/11/20 CXR: Bilateral pulmonary edema/infiltrates. Possible small pleural effusions. Fever, SP Leukocytosis, recurrent; improving Recurrent hypoxic respiratory failure 2ry to above -sp intubation 07/31/19 and extubation 08/11/19 -s/p intubation 07/12/19 and extubation 07/19/19 UTI ,sp RX -08/11 ucx C. parapsilosis (colinzer) - 07/12 Ucx PsA (R Ceftazidime, levaquin; I Ciprofloxacin; otherwise S), VRE ( S Amp, linezolid) -07/11/19 u/a wbc tntc, nit neg, leuk +3; ucx PsA, ESBL E.coli, P. mirabilis S. mitis bacteremia- likely contaminant -07/28 Bcx 07/26 S. mitis; 07/29, 08/01, 08/03 Bcx neg HTN Dm2 spina bifida s/p DIRT SHOVELER shunt decubiti ulcers wheelchair bound/paraplegic b/l renal stents neurogenic bladder s/p suprapubic catheter recurrent UTIs Plan: -Continue to monitor off antibiotics -08/11 SP Linezolid and Meropenem #15 -08/06 SP Micafungin #4 -f/u cx -Monitor CBC/CMP, temperatures -aspiration precautions -GI, pulm f/u -speech therapy recommending PEG, family is refusing Thank you for this consultation. Will continue to follow along with you. Discussed with Joaquina Dunn M.D. Aug 18, 2019 12:05
--- NOTE | 2019-08-18 12:20 | NUR ---
NURSE NOTES: Report received from EMMA Manriquez. Pt is awake and alert. Able to answer for simple questions and verbalize needs by repeating words. Mental delay noted. Spinal bifida noted. Sinus rhythm 90's on mysql dba. On N/C 4L. O2 sat 98-100%. Moderate amount of thick yellow and quiroz secretion noted and suctioned via nares as needed. Right nare NGT in place receiving Vital AF 1.2 at 45cc/hr. No residual noted. Suprapubic catheter in place draining yellow urine to gravity. JASON PICC line patent and asymptomatic. Bed in lowest position. Side rails up x3. Call light within reach. Will resume plan of care.
--- NOTE | 2019-08-18 12:21 | NUR ---
NOTES: SWALLOW STATUS: DR KIM ASKING FOR A REPEAT SWALLOW EVALUATION. SINCE THE PATIENT HAS A SILENT ASPIRATION RISK, PO TRIALS NOT SAFE AT THE BEDSIDE AND SHE MUST BE EVALUATED WITH A MODIFIED BARIUM SWALLOW STUDY WHEN SHE IS READY. SPOKE WITH RT WHO SAID PATIENT IS UNABLE TO MANAGE HER OWN SECRETIONS. SHE HAS COPIOUS AMOUNTS OF OROPHARYNGEAL SECRETIONS THAT NEED TO BE SUCTIONED EVERY HOUR. IF PATIENT HAS DYSPHAGIA FOR SECRETIONS, SHE IS UNABLE TO SAFELY SWALLOW FOOD/LIQUIDS. AT THIS TIME. IF PO IS GIVEN PREMATURELY, SHE MAY HAVE CONSISTENT ASPIRATION AND SECRETIONS WOULD INCREASE. IRRELEVANT OF HER ASPIRATION RISK, SHE WOULD LIKELY NOT CONSUME 3 MEALS A DAY AT 75% INTAKE SHE IS IN A WEAKENED STATE AND HAS PERIODS OF FTT (REFUSING PO). D/W DR KIM, GI , WHO WILL CALL THE FAMILY. THE PATIENT CURRENTLY HAS A 12 TURKS AND [place] NGT IN FOR NONORAL FEEDINGS. ALTHOUGH SHE IS ON 4 LITERS OF 02 NC, RESP RATE OF 18-22, WITH GOOD 02 SATS 97-100% SHE STILL NEEDS TO BE ON THE BIPAP AT NIGHT PER RN, ADE. PLAN: CONTINUE WITH ORAL CARE AND SUCTION (IF SHE IS RECEPTIVE, SHE DISLIKES SUCTIONING) CONTINUE WITH NONORAL FEEDINGS (12 TURKS AND [place] NGT) MOD BARIUM SWALLOW STUDY ONLY IF SHE IS ABLE TO MANAGE HER OWN SECRETIONS. D/W PATIENT ABOVE AND WILL CALL HER SISTER LATER TODAY. DR KIM ALSO TO CALL THE FAMILY WHO WOULD LIKE TO HOLD OFF ON PEG FOR NOW THEY STILL WANT THEIR SISTER TO TRANSFER TO [facility]. Addendum: 08/18/19 at 1610 by JOSÉ JAMES NATURAL REMEDY CONSULTANT SPOKE THE PATIENT'S SISTER, HAMMAD, REGARDING HOLDING OFF ON PO TRIALS AND THE MODIFIED BARIUM SWALLOW STUDY SINCE THE PATIENT IS STILL NOT ABLE TO MANAGE HER OWN SECRETIONS. SHE WANTED TO SPEAK WITH DR MONTEMAYOR ABOUT WAYS TO MINIMIZE HER SISTER'S SECRETIONS AND SHE WAS REFERRED TO THE NURSE.
--- NOTE | 2019-08-18 12:38 | Pulmonolgy Critical Care Note ---
Critical Care - Asmt/Plan Assessment/Plan: (1) Pneumonia of both lower lobes Assessment & Plan: VDRF, intubated 07/12/19, S/P FOB 07/12/19; Reintubated ; extubated 08/11/19 (2) Catheter-associated urinary tract infection Assessment & Plan: PsA and proteus - s/p treatment (3) Respiratory failure with hypoxia Assessment & Plan: Acute on chronic hypercapnic and hypoxemic RF 2/2 PNA Duplex neg, minimally elevated d-dimer, unlikely VTE and already on a NOAC (4) HCAP (healthcare-associated pneumonia) (5) Paraplegia (6) Sepsis (7) Suprapubic catheter (8) Restrictive lung disease due to kyphoscoliosis (9) Decubitus skin ulcer (10) Spina bifida (11) Anemia, acute (12) hx recurrent PE on eliquis Plan: * Does not seem to be protecting airway well with development of infiltrates, ronchi, leukocytosis, and worsening hypercapnic respiratory failure * Wean oxygen as tolerated, BiPAP at night * NT suctionining important * NGT for feeds, GI to contact family again regarding PEG * Repeat CXR * Concern about reaspiration recurrently * Not able to have video swallow now due to above and refusing even bedside PO assessment earlier * BiPAP qhs and prn * High risk for recurrent respiratory failure and reintubation and discussed with the patiet's family previously * If gets reintubated, will need trach placement * ID 2nd opinion consult pending * Good pulmonary hygiene: duonebs and mucomyst q4 * Discussed with patient's outpatient primary, Dr. Oliveros. She had recurrent PE as outpatient. Cont eliquis 5 mg bid and monitor H/H Respiratory: CXR Renal: F/U I&O Gastrointestinal: continue feedings/current rate Time Spent (Minutes): 40 Critical Care - Objective Last 24 Hour Vital Signs Date Time Temp Pulse Resp B/P (MAP) Pulse Ox O2 Delivery O2 Flow Rate FiO2 08/18/19 12:00 98.0 85 18 101/58 (72) 100 08/18/19 12:00 4.0 08/18/19 12:00 86 08/18/19 12:00 Nasal Cannula 4.0 Nasal Cannula 4.0 Nasal Cannula 4.0 Nasal Cannula 4.0 08/18/19 11:59 90 22 100 Nasal Cannula 4.0 36 87 18 98 08/18/19 11:00 83 21 97/56 (70) 97 08/18/19 10:00 87 20 95/56 (69) 100 08/18/19 09:00 88 19 91/46 (61) 100 08/18/19 08:00 99.3 88 19 90/59 (69) 97 08/18/19 08:00 74 08/18/19 08:00 4.0 08/18/19 08:00 Nasal Cannula 4.0 Nasal Cannula 4.0 Nasal Cannula 4.0 Nasal Cannula 4.0 08/18/19 07:25 99 Nasal Cannula 4.0 36 08/18/19 07:23 82 21 100 Nasal Cannula 4.0 36 84 20 99 08/18/19 07:00 76 15 92/53 (66) 100 08/18/19 06:00 79 16 89/57 (68) 100 08/18/19 05:00 84 15 98/61 (73) 100 08/18/19 04:56 86 16 99 Full Face 35 08/18/19 04:21 87 08/18/19 04:08 84 19 91/53 (66) 100 08/18/19 04:00 35 08/18/19 04:00 97.9 91 18 80/50 (60) 96 08/18/19 04:00 Bi-pap 4.0 Bi-pap 4.0 08/18/19 03:21 91 21 99 Full Face 35 08/18/19 03:20 92 23 99 Bi-Pap 35 08/18/19 03:05 78 19 100 Bi-Pap 35 08/18/19 03:00 80 16 95/54 (68) 100 08/18/19 02:00 86 19 88/52 (64) 96 08/18/19 01:12 88 17 99 Full Face 35 08/18/19 01:00 90 18 98/57 (71) 99 08/18/19 00:36 87 16 94/74 (81) 97 08/18/19 00:00 99.3 82 16 87/48 (61) 95 08/18/19 00:00 35 08/18/19 00:00 Bi-pap 4.0 Bi-pap 4.0 08/17/19 23:29 87 08/17/19 23:00 93 15 88/52 (64) 93 08/17/19 22:53 96 22 99 Full Face 35 08/17/19 22:49 95 23 100 Bi-Pap 35 08/17/19 22:33 88 17 100 Nasal Cannula 4.0 36 08/17/19 22:00 85 17 91/53 (66) 100 08/17/19 21:00 94 20 98/59 (72) 99 08/17/19 20:00 99.0 101 23 100/69 (79) 100 08/17/19 20:00 Nasal Cannula 4.0 Nasal Cannula 4.0 08/17/19 20:00 4.0 08/17/19 19:00 97 08/17/19 19:00 94 20 96/58 (71) 99 08/17/19 19:00 93 18 95/58 (70) 95 08/17/19 18:58 91 22 100 Nasal Cannula 4.0 36 08/17/19 18:43 91 19 97 Nasal Cannula 4.0 36 08/17/19 18:43 97 Nasal Cannula 4.0 36 08/17/19 18:00 93 18 95/58 (70) 95 08/17/19 17:00 98.6 98 20 96/63 (74) 99 08/17/19 16:17 93 08/17/19 16:00 3.0 08/17/19 16:00 95 19 102/68 (79) 94 08/17/19 16:00 95 22 104/72 (83) 98 08/17/19 16:00 Nasal Cannula 3.0 Room Air 3.0 08/17/19 15:00 95 19 102/68 (79) 94 08/17/19 14:30 92 20 98 Nasal Cannula 3.0 32 90 20 98 08/17/19 14:00 94 16 109/65 (80) 99 08/17/19 13:00 95 20 97/57 (70) 100 Status: awake HEENT: atraumatic Neck: full ROM Lungs: rhonchi Heart: HR/BP stable Abdomen: soft, non-tender Extremities: edema Accucheck: 114 Critical Care - Subjective ROS Limited/Unobtainable: Yes Interval Events: Cont thick oral secretions. Needing 3-4L nasal cannula. Unsafe for swallow assessment. GI to contact family regarding PEG again. FI02: 36 Vent Support Breath Rate: 14 Vent Support Mode: BiLevel Vent Tidal Volume: 400 Sputum Amount: Small PEEP: 5.0 PIP: 22 Tube Feeding Amount: 45 I&O: Intake and Output 08/17/19 08/18/19 19:00 07:00 Intake Total 1190 ml 1020 ml Output Total 810 ml 850 ml Balance 380 ml 170 ml Intake Free Water 400 ml 400 ml IV Total 200 ml Tube Feeding 540 ml 540 ml Other 50 ml 80 ml Output Urine Total 810 ml 850 ml ET-Tube: 7.5 ET Position: 23 Walker Bonilla MD Aug 18, 2019 12:38
--- NOTE | 2019-08-18 12:40 | NUR ---
NURSE NOTES: Gloria, speech therapist, at bedside, assessing patient at bedside. She spoke with the sister on the phone.
--- NOTE | 2019-08-18 13:02 | Diagnostic Imaging Report ---
Indication: Dyspnea Comparison: 08/14/2019 A single view chest radiograph was obtained. Findings: The lungs remain clear. There may be some minimal basal atelectasis. The heart is enlarged but stable. A ELECTRICAL CHECKOUT MECHANIC shunt projected over the right side of the chest. A single vertically oriented alysha is projected over the thoracic and lumbar spine for scoliosis therapy. NG tube is present in good position. IMPRESSION: NG tube in good position. No significant change otherwise
--- NOTE | 2019-08-18 13:40 | NUR ---
HELIOTHERAPISTTHEATER SET PRODUCTION DESIGNER SI: RESP FAILURE S/P EXTUBATION,PNA T. 98.0 HR 85 RR 18 B/P 90/59 4L NC O2 SAT @ 98% WBC 11.4 K 3.4 IS: ALB HHN MUCOMYST HHN ELIQUISE NGT SWALLOW EVAL ICU STATUS
--- NOTE | 2019-08-18 15:30 | NUR ---
NURSE NOTES: SisterKarolyn, at bedside. Nasal suctioning done at bedside by RT. Pt tolerated well. Moderate amount of thick yellow tanned secretion noted. Pt sounds clearer.
--- NOTE | 2019-08-18 16:32 | NUR ---
NURSE NOTES: Notified Dr Bonilla regarding pt's sister, Karolyn's concern regarding pt's secretion when she goes down for video swallow eval. Awaiting call back for new orders.
--- NOTE | 2019-08-18 17:51 | NUR ---
NURSE NOTES: Order for CPT with vest a4hr received, noted, and carried out. Notified RT.
--- NOTE | 2019-08-18 18:33 | Internal Med Progress Note ---
Subjective Date of Service: Aug 18, 2019 Physician Name Niraj Teixeira Attending Physician Wil Masters MD Current Medications Medications (Trade) Dose Ordered Sig/Sandeep Route PRN Reason Start Time Stop Time Status Last Admin Dose Admin Acetylcysteine (Mucomyst) 400 mg Q4HRT [facility] 08/16/19 11:00 09/15/19 10:59 08/18/19 16:22 Albuterol/ Ipratropium (Albuterol/ Ipratropium) 3 ml Q4HRT N 08/17/19 15:00 08/22/19 14:59 08/18/19 16:22 Apixaban (Eliquis) 5 mg BID NGT 08/16/19 09:00 09/11/19 17:59 08/18/19 08:53 Chlorhexidine Gluconate (Debora-Hex 2%) 1 applic DAILY@1999 TOPIC 08/13/19 20:00 09/12/19 19:59 08/17/19 19:59 Divalproex Sodium (Depakote Sprinkles) 500 mg Q12HR NG 08/15/19 21:00 09/14/19 20:59 08/18/19 08:53 Metoclopramide HCl (Reglan) 5 mg Q6H PRN IVP Nausea & Vomiting 08/04/19 10:00 09/03/19 09:59 Pantoprazole (Protonix) 40 mg DAILY IV 08/01/19 09:00 08/31/19 08:59 08/18/19 08:53 Allergies: Coded Allergies: PENICILLIN G (Verified Allergy, Unknown, 12/02/18) Tolerates cabapenem, cephalosporin PENICILLINS (Unverified Allergy, Unknown, 12/02/18) ROS Limited/Unobtainable: No Constitutional: Reports: no symptoms HEENT: Reports: no symptoms Cardiovascular: Reports: no symptoms Respiratory: Reports: no symptoms Gastrointestinal/Abdominal: Reports: no symptoms Genitourinary: Reports: no symptoms Neurologic/Psychiatric: Reports: no symptoms Subjective 49 YO F with pneumonia and respiratory failure. Extubated 08/11/19. Cover for Int Conor-DR Masters. ICU. Tolerating nasal canula Objective Last Vital Signs Date Time Temp Pulse Resp B/P (MAP) Pulse Ox O2 Delivery O2 Flow Rate FiO2 08/18/19 18:00 92 24 95/58 (70) 97 08/18/19 16:00 4.0 08/18/19 16:00 98.8 08/18/19 16:00 Nasal Cannula Nasal Cannula 08/18/19 15:59 36 Laboratory Tests Test 08/18/19 03:30 White Blood Count 11.4 K/UL (4.8-10.8) H Red Blood Count 3.90 M/UL (4.20-5.40) L Hemoglobin 9.4 G/DL (12.0-16.0) L Hematocrit 29.7 % (37.0-47.0) L Mean Corpuscular Volume 76 FL (80-99) L Mean Corpuscular Hemoglobin 24.2 PG (27.0-31.0) L Mean Corpuscular Hemoglobin Concent 31.8 G/DL (32.0-36.0) L Red Cell Distribution Width 20.8 % (11.6-14.8) H Platelet Count 287 K/UL (150-450) Mean Platelet Volume 6.1 FL (6.5-10.1) L Neutrophils (%) (Auto) 69.6 % (45.0-75.0) Lymphocytes (%) (Auto) 21.8 % (20.0-45.0) Monocytes (%) (Auto) 4.9 % (1.0-10.0) Eosinophils (%) (Auto) 2.8 % (0.0-3.0) Basophils (%) (Auto) 0.9 % (0.0-2.0) Sodium Level 139 MMOL/L (136-145) Potassium Level 3.4 MMOL/L (3.5-5.1) L Chloride Level 102 MMOL/L (98-107) Carbon Dioxide Level 35 MMOL/L (21-32) H Anion Gap 3 mmol/L (5-15) L Blood Urea Nitrogen 11 mg/dL (7-18) Creatinine 0.3 MG/DL (0.55-1.30) L Estimat Glomerular Filtration Rate > 60 mL/min (>60) Glucose Level 109 MG/DL (74-106) H Calcium Level 8.1 MG/DL (8.5-10.1) L Total Bilirubin 0.4 MG/DL (0.2-1.0) Aspartate Amino Transf (AST/SGOT) 8 U/L (15-37) L Alanine Aminotransferase (ALT/SGPT) 16 U/L (12-78) Alkaline Phosphatase 64 U/L (46-116) Total Protein 7.2 G/DL (6.4-8.2) Albumin 2.4 G/DL (3.4-5.0) L Globulin 4.8 g/dL Albumin/Globulin Ratio 0.5 (1.0-2.7) L Intake and Output 08/17/19 08/18/19 18:59 06:59 Intake Total 1190 ml 1020 ml Output Total 835 ml 800 ml Balance 355 ml 220 ml Intake Free Water 400 ml 400 ml IV Total 200 ml Tube Feeding 540 ml 540 ml Other 50 ml 80 ml Output Urine Total 835 ml 800 ml Objective General Appearance: WD/WN, moderate distress EENT: PERRL/EOMI, normal ENT inspection Neck: non-tender, normal alignment, supple Cardiovascular: normal peripheral pulses, normal rate, regular rhythm, no gallop/murmur, no JVD Respiratory/Chest: nasal canula; crackles/rales, rhonchi - bilaterally, expiratory wheezing Abdomen: normal bowel sounds, non tender, soft, no organomegaly, no mass Skin: normal pigmentation, warm/dry Assessment/Plan Problem List: (1) Respiratory failure with hypoxia Assessment & Plan: Tolerating nasal canula. S/P extubation 08/11/19 per pulmonary=Dr Bonilla (2) Pneumonia of both lower lobes Assessment & Plan: See ID note. S/P meropenem and zyvox (3) UTI (urinary tract infection) Assessment & Plan: Pseudamonas, ESBL E. Coli, and vanco resistant enterococcus. See ID note; Dr Sanabria signed off. Await new ID consult= Dr Buck/Milly. S/P meropenem, linezolid and micafugin (4) Sepsis (5) Paraplegia (6) Spina bifida Niraj Teixeira MD Aug 18, 2019 18:33
--- NOTE | 2019-08-18 19:10 | NUR ---
HAND-OFF: Report given to Modesto Lambert RN.
--- NOTE | 2019-08-18 19:50 | NUR ---
NURSE NOTES: LE:PT'S FAMILY STAYED AT BEDSIDE. PATIENT AWOKE, ALERT, ORIENTED X2, RESPIRATION REGULAR, DENIED PAIN OR SOB, ON O2 4 LPM VIA NC, O2 SATURATION OVER 98% NOTED, NGT INTACT AND PATENT, ONGOING VITAL AF 1.2 AT 45ML/HR, NO RESIDUE NOTED, ABDOMEN SOFT, NO BM STATUS, SUPRAPUBIC CATHETER INTACT AND PATENT, RYAN COLOR URINE OUTED, PICC LINE TO LEFT UPPER ARM, INTACT AND PATENT, TKO STATUS, KEPT ASPIRATION PRECAUTION, ON P200 BED, ON BED ALARM AND LOCKED, PROVIDED CALL LIGHT WITHIN REACH, MADE LOWER BED POSITION, WILL CONTINUE TO MONITOR.
[2019-08-18] MEDS: Dyna-Hex 2% Top Sol 2oz TOPIC SCH (20:30)
--- NOTE | 2019-08-18 22:29 | NUR ---
NURSE NOTES: ORAL CARE WAS DONE, NO PAIN OR SOB NOTED AT THIS TIME.
--- NOTE | 2019-08-18 23:17 | NUR ---
NURSE NOTES: CALLED RT REGARDING CHEST PERCUSSION AND BIPAP AT NIGHT ORDER THAT JUANITO/RT WAS AWARE.
[2019-08-19] VITALS (24 sets, daily range): BP systolic 78–133; BP diastolic 37–115
--- NOTE | 2019-08-19 00:08 | NUR ---
NURSE NOTES: PATIENT ASLEEP WITH FULL FACE MASK BIPAP I/E 15/10, FIO2 80%, RATE 14, O2 SATURATION 95% NOTED, HOLD FEEDING PER PROTOCOLS, WILL CONTINUE TO MONITOR.
--- NOTE | 2019-08-19 01:43 | NUR ---
NURSE NOTES: PATIENT ASLEEP STATUS, ON BIPAP FIO2 70% NOTED, O2 SATURATION 100% NOTED.
[2019-08-19] MEDS: Acetylcysteine 20% Soln 4ml HHN SCH ×6 (03:33→22:14)
[2019-08-19] MEDS: Albuterol/Ipratropium 3ml neb HHN SCH ×6 (03:33→22:13)
--- NOTE | 2019-08-19 04:45 | Progress Note ---
DATE: 08/18/2019 SUBJECTIVE: The patient still has episodes of anxiety. Less agitated and aggressive. Cooperative with care. MENTAL STATUS EXAMINATION: Alert and oriented times self and place. Mood is anxious. Affect is flat. Thought process, concrete. Thought content, no suicidal or homicidal ideation. Cognition is impaired. Insight and judgment are impaired. ASSESSMENT: 1. Developmental disability. 2. Agitation. PLAN: 1. We will continue current psychotropic medications. 2. Discussed with the nurse. Kobi Reyes M.D. DR: MISBAH JOB#: [id number] CC:
--- NOTE | 2019-08-19 04:53 | NUR ---
NURSE NOTES: CALLED BACK FROM PT'S BROTHER WHO IS CHATO, REGARDING PT'S VIDEO SWALLOW EVAL, INFORMED HIM PENDING STATUS AT 0416AM. MORNING CARE AND ORAL CARE WAS DONE, NO BM STATUS.
[2019-08-19 05:53] LABS: BASOPHILS % (AUTO) 0.6 % (0.0-2.0); EOSINOPHILS % (AUTO) 4.6 % (0.0-3.0); HEMATOCRIT 30.2 % (37.0-47.0); HEMOGLOBIN 9.7 G/DL (12.0-16.0); LYMPHOCYTES % (AUTO) 17.3 % (20.0-45.0); MEAN CORPUSCULAR VOLUME 76 FL (80-99); MONOCYTES % (AUTO) 4.6 % (1.0-10.0); NEUTROPHILS % (AUTO) 72.9 % (45.0-75.0); PLATELET COUNT 277 K/UL (150-450); RED BLOOD COUNT 3.99 M/UL (4.20-5.40); RED CELL DISTRIBUTION WIDTH 20.7 % (11.6-14.8); WHITE BLOOD COUNT 11.9 K/UL (4.8-10.8)
[2019-08-19 06:19] LABS: ANION GAP 3 mmol/L (5-15); BLOOD UREA NITROGEN 11 mg/dL (7-18); CALCIUM 8.3 MG/DL (8.5-10.1); CARBON DIOXIDE 35 MMOL/L (21-32); CHLORIDE 102 MMOL/L (98-107); CREATININE 0.3 MG/DL (0.55-1.30); POTASSIUM 3.9 MMOL/L (3.5-5.1); SODIUM 140 MMOL/L (136-145)
--- NOTE | 2019-08-19 06:57 | NUR ---
NURSE NOTES: NO ACUTE DISTRESS NOTED AT THIS SHIFT.
--- NOTE | 2019-08-19 07:20 | NUR ---
NURSE NOTES: Received pt from [facility]MA Salvador. Pt is awake, able to nod for yes or no. A/Ox1. Currently on BIPAP 15/5, Fio2 80% for at night only. Copious thick secretions noted. thick/white and tannish secretions. frequent CP and deep sxn provided. Right NGT clamped during BIPAP. Suprapubic catheter draining to gravity. JASON PICC connected to TKO. Dressing clean and intact. p200. Bed locked, alarmed and lowest position. bedside video swallow scheduled today. Will continue plan of care.
--- NOTE | 2019-08-19 07:24 | NUR ---
HAND-OFF: Report given to Jacquelin AVINA RN.
--- NOTE | 2019-08-19 07:58 | General Progress Note ---
Assessment/Plan Problem List: (1) Spina bifida ICD Codes: Q05.9 - Spina bifida, unspecified SNOMED: 44503738 Qualifiers: Qualified Codes: Q05.4 - Unspecified spina bifida with hydrocephalus (2) Respiratory failure with hypoxia ICD Codes: J96.91 - Respiratory failure, unspecified with hypoxia SNOMED: 74041836589099191 Qualifiers: Qualified Codes: J96.21 - Acute and chronic respiratory failure with hypoxia (3) Dysphagia ICD Codes: R13.10 - Dysphagia, unspecified SNOMED: 13327483, 219326929 Status: unchanged Assessment/Plan: extubated on BIPAP ppi repeat labs fu H&H stool ob neg x1 samanlan family wants to transfer the patient to [facility] and refusing PEG here at [place] failed swallow eval pending VAS for today NGTF for now will fu Subjective ROS Limited/Unobtainable: No Allergies: Coded Allergies: PENICILLIN G (Verified Allergy, Unknown, 12/02/18) Tolerates cabapenem, cephalosporin PENICILLINS (Unverified Allergy, Unknown, 12/02/18) Objective Last 24 Hour Vital Signs Date Time Temp Pulse Resp B/P (MAP) Pulse Ox O2 Delivery O2 Flow Rate FiO2 08/19/19 07:46 24 26 100 Nasal Cannula 4.0 36 91 22 99 08/19/19 07:46 99 Nasal Cannula 4.0 36 08/19/19 07:00 87 16 90/58 (69) 99 08/19/19 06:00 92 16 93/49 (64) 94 08/19/19 05:20 92 18 96 Full Face 60 08/19/19 05:00 96 25 95/57 (70) 95 08/19/19 04:00 99.3 87 26 89/61 (70) 100 08/19/19 04:00 Bi-pap Bi-pap 08/19/19 04:00 80 08/19/19 03:41 82 08/19/19 03:36 88 15 100 Nasal Cannula 4.0 36 87 16 100 08/19/19 03:00 87 24 105/59 (74) 99 08/19/19 02:39 89 18 95 Full Face 50 08/19/19 02:00 81 17 91/56 (68) 100 08/19/19 01:00 83 15 89/55 (66) 100 08/19/19 00:39 90 19 96 Full Face 50 08/19/19 00:00 Bi-pap Bi-pap 08/19/19 00:00 98.4 94 24 92/56 (68) 99 08/19/19 00:00 80 08/19/19 00:00 94 08/18/19 23:46 86 20 100 Nasal Cannula 4.0 36 92 19 98 08/18/19 23:00 92 19 102/63 (76) 95 08/18/19 22:30 92 23 94 Full Face 35 08/18/19 22:00 89 22 103/64 (77) 98 08/18/19 21:00 92 27 92/54 (67) 98 08/18/19 20:00 4.0 08/18/19 20:00 Nasal Cannula 4.0 Nasal Cannula 4.0 08/18/19 20:00 98.3 90 23 95/60 (72) 100 08/18/19 19:56 90 08/18/19 19:30 86 20 100 Nasal Cannula 4.0 36 81 19 99 08/18/19 19:30 99 Nasal Cannula 4.0 36 08/18/19 19:00 90 21 97/60 (72) 100 08/18/19 18:00 92 24 95/58 (70) 97 08/18/19 17:00 94 16 96/57 (70) 94 08/18/19 16:00 4.0 08/18/19 16:00 98.8 87 22 99/60 (73) 98 08/18/19 16:00 Nasal Cannula 4.0 Nasal Cannula 4.0 08/18/19 15:59 88 20 100 Nasal Cannula 4.0 36 83 22 99 08/18/19 15:55 88 08/18/19 15:00 104 20 94/60 (71) 100 08/18/19 14:00 97 19 83/52 (62) 100 08/18/19 13:00 98.8 94 23 78/52 (61) 99 08/18/19 12:20 Nasal Cannula 4.0 Nasal Cannula 4.0 08/18/19 12:00 98.0 85 18 101/58 (72) 100 08/18/19 12:00 4.0 08/18/19 12:00 86 08/18/19 12:00 Nasal Cannula 4.0 Nasal Cannula 4.0 Nasal Cannula 4.0 Nasal Cannula 4.0 08/18/19 11:59 90 22 100 Nasal Cannula 4.0 36 87 18 98 08/18/19 11:00 83 21 97/56 (70) 97 08/18/19 10:00 87 20 95/56 (69) 100 08/18/19 09:00 88 19 91/46 (61) 100 08/18/19 08:00 99.3 88 19 90/59 (69) 97 08/18/19 08:00 74 08/18/19 08:00 4.0 08/18/19 08:00 Nasal Cannula 4.0 Nasal Cannula 4.0 Nasal Cannula 4.0 Nasal Cannula 4.0 Intake and Output 08/18/19 08/19/19 19:00 07:00 Intake Total 940 ml 485 ml Output Total 1370 ml 670 ml Balance -430 ml -185 ml Intake Free Water 400 ml 200 ml Tube Feeding 540 ml 225 ml Other 60 ml Output Urine Total 1370 ml 670 ml Laboratory Tests 08/19/19 03:55: White Blood Count 11.9H, Red Blood Count 3.99L, Hemoglobin 9.7L, Hematocrit 30.2L, Mean Corpuscular Volume 76L, Mean Corpuscular Hemoglobin 24.3L, Mean Corpuscular Hemoglobin Concent 32.0, Red Cell Distribution Width 20.7H, Platelet Count 277, Mean Platelet Volume 6.5, Neutrophils (%) (Auto) 72.9, Lymphocytes (%) (Auto) 17.3L, Monocytes (%) (Auto) 4.6, Eosinophils (%) (Auto) 4.6H, Basophils (%) (Auto) 0.6, Sodium Level 140, Potassium Level 3.9, Chloride Level 102, Carbon Dioxide Level 35H, Anion Gap 3L, Blood Urea Nitrogen 11, Creatinine 0.3L, Estimat Glomerular Filtration Rate > 60, Glucose Level 90, Calcium Level 8.3L Height (Feet): 4 Height (Inches): 10.00 Weight (Pounds): 115 General Appearance: lethargic EENT: normal ENT inspection Neck: supple Cardiovascular: normal rate Respiratory/Chest: decreased breath sounds Abdomen: normal bowel sounds, non tender, soft Extremities: non-tender Tim Davis MD Aug 19, 2019 07:58
[2019-08-19] MEDS: Eliquis 5mg tablet NGT SCH ×2 (09:00→18:00)
--- NOTE | 2019-08-19 09:11 | NUR ---
NURSE NOTES: CP and deep sxn provided x2 by RT and RN.
[2019-08-19] MEDS: Depakote 125mg Sprinkles NG SCH ×2 (10:13→20:36)
[2019-08-19] MEDS: Pantoprazole Inj IV SCH (10:13)
--- NOTE | 2019-08-19 10:37 | NUR ---
NURSE NOTES: Received orders to decrease BIPAP to 12/7 and discharge patient to LTAC per Dr. Bonilla.
--- NOTE | 2019-08-19 10:53 | Infectious Diseases Prog Note ---
Assessment/Plan Assessment/Plan Assessment: Recurrent aspiration pneumonia, sp rx -08/18 cXR: The lungs remain clear. There may be some minimal basal atelectasis -08/14 CXR: Cardiomegaly. Mild interstitial congestion, unchanged over 3 days -07/31, 08/01 sp cx normal resp sunny -07/12 sp cx normal -07/12 SP FLEXIBLE FIBEROPTIC BRONCHOSCOPY WITH BRONCHOALVEOLAR LAVAGE AND THERAPEUTIC ASPIRATION OF MUCOUS PLUG LEFT LUNG -07/11/20 CXR: Bilateral pulmonary edema/infiltrates. Possible small pleural effusions. Fever, SP Leukocytosis, recurrent; improving Recurrent hypoxic respiratory failure 2ry to above -sp intubation 07/31/19 and extubation 08/11/19 -s/p intubation 07/12/19 and extubation 07/19/19 UTI ,sp RX -08/11 ucx C. parapsilosis (colinzer) - 07/12 Ucx PsA (R Ceftazidime, levaquin; I Ciprofloxacin; otherwise S), VRE ( S Amp, linezolid) -07/11/19 u/a wbc tntc, nit neg, leuk +3; ucx PsA, ESBL E.coli, P. mirabilis S. mitis bacteremia- likely contaminant -07/28 Bcx 07/26 S. mitis; 07/29, 08/01, 08/03 Bcx neg HTN Dm2 spina bifida s/p [facility] shunt decubiti ulcers wheelchair bound/paraplegic b/l renal stents neurogenic bladder s/p suprapubic catheter recurrent UTIs Plan: -Continue to monitor off antibiotics -08/11 SP Linezolid and Meropenem #15 -08/06 SP Micafungin #4 -f/u cx -Monitor CBC/CMP, temperatures -aspiration precautions -GI, pulm f/u -speech therapy recommending PEG, family is refusing Thank you for this consultation. Will continue to follow along with you. Discussed with RN Subjective Allergies: Coded Allergies: PENICILLIN G (Verified Allergy, Unknown, 12/02/18) Tolerates cabapenem, cephalosporin PENICILLINS (Unverified Allergy, Unknown, 12/02/18) All Systems: reviewed and negative except above Subjective afebrile mild leukocytosis Objective Vital Signs Last 24 Hour Vital Signs Date Time Temp Pulse Resp B/P (MAP) Pulse Ox O2 Delivery O2 Flow Rate FiO2 08/19/19 10:45 24 26 100 Nasal Cannula 4.0 36 97 13 95 08/19/19 09:00 98 23 133/115 (121) 82 08/19/19 08:00 Nasal Cannula 4.0 Nasal Cannula 4.0 08/19/19 08:00 4.0 08/19/19 08:00 98.6 91 20 78/52 (61) 96 08/19/19 07:46 24 26 100 Nasal Cannula 4.0 36 91 22 99 08/19/19 07:46 99 Nasal Cannula 4.0 36 08/19/19 07:00 87 16 90/58 (69) 99 08/19/19 06:00 92 16 93/49 (64) 94 08/19/19 05:20 92 18 96 Full Face 60 08/19/19 05:00 96 25 95/57 (70) 95 08/19/19 04:00 99.3 87 26 89/61 (70) 100 08/19/19 04:00 Bi-pap Bi-pap 08/19/19 04:00 80 08/19/19 03:41 82 08/19/19 03:36 88 15 100 Nasal Cannula 4.0 36 87 16 100 08/19/19 03:00 87 24 105/59 (74) 99 08/19/19 02:39 89 18 95 Full Face 50 08/19/19 02:00 81 17 91/56 (68) 100 08/19/19 01:00 83 15 89/55 (66) 100 08/19/19 00:39 90 19 96 Full Face 50 08/19/19 00:00 Bi-pap Bi-pap 08/19/19 00:00 98.4 94 24 92/56 (68) 99 08/19/19 00:00 80 08/19/19 00:00 94 08/18/19 23:46 86 20 100 Nasal Cannula 4.0 36 92 19 98 08/18/19 23:00 92 19 102/63 (76) 95 08/18/19 22:30 92 23 94 Full Face 35 08/18/19 22:00 89 22 103/64 (77) 98 08/18/19 21:00 92 27 92/54 (67) 98 08/18/19 20:00 4.0 08/18/19 20:00 Nasal Cannula 4.0 Nasal Cannula 4.0 08/18/19 20:00 98.3 90 23 95/60 (72) 100 08/18/19 19:56 90 08/18/19 19:30 86 20 100 Nasal Cannula 4.0 36 81 19 99 08/18/19 19:30 99 Nasal Cannula 4.0 36 08/18/19 19:00 90 21 97/60 (72) 100 08/18/19 18:00 92 24 95/58 (70) 97 08/18/19 17:00 94 16 96/57 (70) 94 08/18/19 16:00 4.0 08/18/19 16:00 98.8 87 22 99/60 (73) 98 08/18/19 16:00 Nasal Cannula 4.0 Nasal Cannula 4.0 08/18/19 15:59 88 20 100 Nasal Cannula 4.0 36 83 22 99 08/18/19 15:55 88 08/18/19 15:00 104 20 94/60 (71) 100 08/18/19 14:00 97 19 83/52 (62) 100 08/18/19 13:00 98.8 94 23 78/52 (61) 99 08/18/19 12:20 Nasal Cannula 4.0 Nasal Cannula 4.0 08/18/19 12:00 98.0 85 18 101/58 (72) 100 08/18/19 12:00 4.0 08/18/19 12:00 86 08/18/19 12:00 Nasal Cannula 4.0 Nasal Cannula 4.0 Nasal Cannula 4.0 Nasal Cannula 4.0 08/18/19 11:59 90 22 100 Nasal Cannula 4.0 36 87 18 98 08/18/19 11:00 83 21 97/56 (70) 97 Height (Feet): 4 Height (Inches): 10.00 Weight (Pounds): 115 Objective General Appearance: lethargic EENT: normal ENT inspection Neck: supple Cardiovascular: normal rate Respiratory/Chest: decreased breath sounds Abdomen: normal bowel sounds, non tender, soft Extremities: non-tender Laboratory Tests Test 08/19/19 03:55 White Blood Count 11.9 K/UL (4.8-10.8) H Red Blood Count 3.99 M/UL (4.20-5.40) L Hemoglobin 9.7 G/DL (12.0-16.0) L Hematocrit 30.2 % (37.0-47.0) L Mean Corpuscular Volume 76 FL (80-99) L Mean Corpuscular Hemoglobin 24.3 PG (27.0-31.0) L Mean Corpuscular Hemoglobin Concent 32.0 G/DL (32.0-36.0) Red Cell Distribution Width 20.7 % (11.6-14.8) H Platelet Count 277 K/UL (150-450) Mean Platelet Volume 6.5 FL (6.5-10.1) Neutrophils (%) (Auto) 72.9 % (45.0-75.0) Lymphocytes (%) (Auto) 17.3 % (20.0-45.0) L Monocytes (%) (Auto) 4.6 % (1.0-10.0) Eosinophils (%) (Auto) 4.6 % (0.0-3.0) H Basophils (%) (Auto) 0.6 % (0.0-2.0) Sodium Level 140 MMOL/L (136-145) Potassium Level 3.9 MMOL/L (3.5-5.1) Chloride Level 102 MMOL/L (98-107) Carbon Dioxide Level 35 MMOL/L (21-32) H Anion Gap 3 mmol/L (5-15) L Blood Urea Nitrogen 11 mg/dL (7-18) Creatinine 0.3 MG/DL (0.55-1.30) L Estimat Glomerular Filtration Rate > 60 mL/min (>60) Glucose Level 90 MG/DL (74-106) Calcium Level 8.3 MG/DL (8.5-10.1) L Current Medications Medications (Trade) Dose Ordered Sig/Sandeep Route PRN Reason Start Time Stop Time Status Last Admin Dose Admin Acetylcysteine (Mucomyst) 400 mg Q4HRT [facility] 08/16/19 11:00 09/15/19 10:59 08/19/19 10:44 Albuterol/ Ipratropium (Albuterol/ Ipratropium) 3 ml Q4HRT [facility] 08/17/19 15:00 08/22/19 14:59 08/19/19 10:44 Apixaban (Eliquis) 5 mg BID [facility] 08/16/19 09:00 09/11/19 17:59 08/18/19 08:53 Chlorhexidine Gluconate (Debora-Hex 2%) 1 applic DAILY@2000 TOPIC 08/13/19 20:00 09/12/19 19:59 08/18/19 20:30 Divalproex Sodium (Depakote Sprinkles) 500 mg Q12HR NG 08/15/19 21:00 09/14/19 20:59 08/19/19 10:13 Metoclopramide HCl (Reglan) 5 mg Q6H PRN IVP Nausea & Vomiting 08/04/19 10:00 09/03/19 09:59 Pantoprazole (Protonix) 40 mg DAILY IV 08/01/19 09:00 08/31/19 08:59 08/19/19 10:13 Joaquina Hill M.D. Aug 19, 2019 10:53
--- NOTE | 2019-08-19 11:03 | Pulmonolgy Critical Care Note ---
Critical Care - Asmt/Plan Assessment/Plan: (1) Pneumonia of both lower lobes Assessment & Plan: VDRF, intubated 07/12/19, S/P FOB 07/12/19; Reintubated ; extubated 08/11/19 (2) Catheter-associated urinary tract infection Assessment & Plan: PsA and proteus - s/p treatment (3) Respiratory failure with hypoxia Assessment & Plan: Acute on chronic hypercapnic and hypoxemic RF 2/2 PNA Duplex neg, minimally elevated d-dimer, unlikely VTE and already on a NOAC (4) HCAP (healthcare-associated pneumonia) (5) Paraplegia (6) Sepsis (7) Suprapubic catheter (8) Restrictive lung disease due to kyphoscoliosis (9) Decubitus skin ulcer (10) Spina bifida (11) Anemia, acute (12) hx recurrent PE on eliquis Plan: * Wean oxygen as tolerated, BiPAP at night * NT suctionining, VEST therapy * NGT for feeds * Concern about reaspiration recurrently * Not able to have video swallow now due to above and refusing even bedside PO assessment earlier * BiPAP qhs and prn * High risk for recurrent respiratory failure and reintubation and discussed with the patient's family previously * If gets reintubated, will need trach placement * Good pulmonary hygiene: duonebs and mucomyst q4 * Discussed with patient's outpatient primary, Dr. Oliveros. She had recurrent PE as outpatient. Cont eliquis 5 mg bid and monitor H/H * Assess for d/c planning to LTACH Time Spent (Minutes): 30 - cc Critical Care - Objective Last 24 Hour Vital Signs Date Time Temp Pulse Resp B/P (MAP) Pulse Ox O2 Delivery O2 Flow Rate FiO2 08/19/19 10:45 24 26 100 Nasal Cannula 4.0 36 97 13 95 08/19/19 09:00 98 23 133/115 (121) 82 08/19/19 08:00 Nasal Cannula 4.0 Nasal Cannula 4.0 08/19/19 08:00 4.0 08/19/19 08:00 98.6 91 20 78/52 (61) 96 08/19/19 08:00 79 08/19/19 07:46 24 26 100 Nasal Cannula 4.0 36 91 22 99 08/19/19 07:46 99 Nasal Cannula 4.0 36 08/19/19 07:00 87 16 90/58 (69) 99 08/19/19 06:00 92 16 93/49 (64) 94 08/19/19 05:20 92 18 96 Full Face 60 08/19/19 05:00 96 25 95/57 (70) 95 08/19/19 04:00 99.3 87 26 89/61 (70) 100 08/19/19 04:00 Bi-pap Bi-pap 08/19/19 04:00 80 08/19/19 03:41 82 08/19/19 03:36 88 15 100 Nasal Cannula 4.0 36 87 16 100 08/19/19 03:00 87 24 105/59 (74) 99 08/19/19 02:39 89 18 95 Full Face 50 08/19/19 02:00 81 17 91/56 (68) 100 08/19/19 01:00 83 15 89/55 (66) 100 08/19/19 00:39 90 19 96 Full Face 50 08/19/19 00:00 Bi-pap Bi-pap 08/19/19 00:00 98.4 94 24 92/56 (68) 99 08/19/19 00:00 80 08/19/19 00:00 94 08/18/19 23:46 86 20 100 Nasal Cannula 4.0 36 92 19 98 08/18/19 23:00 92 19 102/63 (76) 95 08/18/19 22:30 92 23 94 Full Face 35 08/18/19 22:00 89 22 103/64 (77) 98 08/18/19 21:00 92 27 92/54 (67) 98 08/18/19 20:00 4.0 08/18/19 20:00 Nasal Cannula 4.0 Nasal Cannula 4.0 08/18/19 20:00 98.3 90 23 95/60 (72) 100 08/18/19 19:56 90 08/18/19 19:30 86 20 100 Nasal Cannula 4.0 36 81 19 99 08/18/19 19:30 99 Nasal Cannula 4.0 36 08/18/19 19:00 90 21 97/60 (72) 100 08/18/19 18:00 92 24 95/58 (70) 97 08/18/19 17:00 94 16 96/57 (70) 94 08/18/19 16:00 4.0 08/18/19 16:00 98.8 87 22 99/60 (73) 98 08/18/19 16:00 Nasal Cannula 4.0 Nasal Cannula 4.0 08/18/19 15:59 88 20 100 Nasal Cannula 4.0 36 83 22 99 08/18/19 15:55 88 08/18/19 15:00 104 20 94/60 (71) 100 08/18/19 14:00 97 19 83/52 (62) 100 08/18/19 13:00 98.8 94 23 78/52 (61) 99 08/18/19 12:20 Nasal Cannula 4.0 Nasal Cannula 4.0 08/18/19 12:00 98.0 85 18 101/58 (72) 100 08/18/19 12:00 4.0 08/18/19 12:00 86 08/18/19 12:00 Nasal Cannula 4.0 Nasal Cannula 4.0 Nasal Cannula 4.0 Nasal Cannula 4.0 08/18/19 11:59 90 22 100 Nasal Cannula 4.0 36 87 18 98 Status: awake HEENT: atraumatic Lungs: rhonchi Heart: HR/BP stable Abdomen: soft, non-tender Extremities: edema, other Accucheck: 114 Critical Care - Subjective ROS Limited/Unobtainable: Yes Interval Events: Cont thick secretions needing deep suctioning. VEST therapy started. Condition: unchanged EKG Rhythm: Sinus Rhythm FI02: 36 Vent Support Breath Rate: 14 Vent Support Mode: BiLevel Vent Tidal Volume: 400 Sputum Amount: Large PEEP: 5.0 PIP: 22 Tube Feeding Amount: 25 I&O: Intake and Output 08/18/19 08/19/19 19:00 07:00 Intake Total 940 ml 485 ml Output Total 1370 ml 670 ml Balance -430 ml -185 ml Intake Free Water 400 ml 200 ml Tube Feeding 540 ml 225 ml Other 60 ml Output Urine Total 1370 ml 670 ml ET-Tube: 7.5 ET Position: 23 Walker Bonilla MD Aug 19, 2019 11:03
--- NOTE | 2019-08-19 11:32 | NUR ---
WEEKLY SWALLOW/SPEECH THERAPY SUMMARY: PT SEEN FOR DYSPHAGIA MOSTLY, SEE SWALLOW EVALUATION. PATIENT STILL NOT READY FOR MODIFIED BARIUM SWALLOW STUDY DUE TO SIGNIFICANT OROPHARYNGEAL SECRETIONS THAT NEED TO BE SUCTIONED ALMOST EVERY HOUR PER RT. PATIENT IS DYSPHAGIC FOR ORAL SECRETIONS AND AT HIGH RISK FOR SILENT ASPIRATION. EVEN IF SHE DID NOT ASPIRATE, SHE WOULD NOT BE ABLE TO TOLERATE 3 MEALS A DAY 75% INTAKE SINCE SHE IS VERY WEAK AND MANY TIMES REFUSED PO INTAKE. PER [facility], THE PATIENT MAY TRANSFER TO LTACH SOON. THE FAMILY WANTS HER TO TRANSFER TO [facility]. THE FAMILY IS RECEPTIVE TO PEG ONLY IF THE PT IS TRANSFERRED TO [facility]. GOALS NOT MET FOR INTAKE BUT GOALS MET FOR STAFF EDUCATED/TRAINED IN POSTED ORAL CARE/SUCTION AND ASPIRATION PRECAUTIONS WHEN TUBE FEEDINGS ARE RUNNING. PLAN: CONTINUE TO MONITOR FOR READINESS FOR MBSS CONTINUE WITH ORAL CARE/SUCTION AND NONORAL FEEDINGS (NGT) FOR NOW D/W WITH HER SISTER ABOVE D/W DR KIM (GI REGARDING PEG) ABOVE INFORMATION
--- NOTE | 2019-08-19 12:31 | NUR ---
NURSE NOTES: Turned and repositioned. Deep sxn provided. Oral care done.
--- NOTE | 2019-08-19 13:02 | NUR ---
*-* DISCHARGE PLANNING *-* PATIENT HAS BEEN REFERRED TO: [facility] F: [phone]
--- NOTE | 2019-08-19 14:14 | NUR ---
NURSE NOTES: Turned and repositioned. Pt is unable to tolerate CP vest as oxygen saturation drops to 80's. Manual CP done by RT and deep sxn provided.
--- NOTE | 2019-08-19 16:10 | NUR ---
NURSE NOTES: Deep sxn provided. Sister, Karolyn at bedside. SPo2 94%, still lots of secretions. ST on cardiac potline monitor; HR 105.
--- NOTE | 2019-08-19 17:44 | Internal Med Progress Note ---
Subjective Date of Service: Aug 19, 2019 Physician Name Niraj Teixeira Attending Physician Wil Masters MD Current Medications Medications (Trade) Dose Ordered Sig/Sandeep Route PRN Reason Start Time Stop Time Status Last Admin Dose Admin Acetylcysteine (Mucomyst) 400 mg Q4HRT [facility] 08/16/19 11:00 09/15/19 10:59 08/19/19 15:35 Albuterol/ Ipratropium (Albuterol/ Ipratropium) 3 ml Q4HRT N 08/17/19 15:00 08/22/19 14:59 08/19/19 15:35 Apixaban (Eliquis) 5 mg BID NGT 08/16/19 09:00 09/11/19 17:59 08/18/19 08:53 Chlorhexidine Gluconate (Debora-Hex 2%) 1 applic DAILY@1999 TOPIC 08/13/19 20:00 09/12/19 19:59 08/18/19 20:30 Divalproex Sodium (Depakote Sprinkles) 500 mg Q12HR NG 08/15/19 21:00 09/14/19 20:59 08/19/19 10:13 Metoclopramide HCl (Reglan) 5 mg Q6H PRN IVP Nausea & Vomiting 08/04/19 10:00 09/03/19 09:59 Pantoprazole (Protonix) 40 mg DAILY IV 08/01/19 09:00 08/31/19 08:59 08/19/19 10:13 Allergies: Coded Allergies: PENICILLIN G (Verified Allergy, Unknown, 12/02/18) Tolerates cabapenem, cephalosporin PENICILLINS (Unverified Allergy, Unknown, 12/02/18) ROS Limited/Unobtainable: Yes Subjective 49 YO F with pneumonia and respiratory failure. Extubated 08/11/19. Cover for Int Med-DR Masters. ICU. Back on venturi mask Objective Last Vital Signs Date Time Temp Pulse Resp B/P (MAP) Pulse Ox O2 Delivery O2 Flow Rate FiO2 08/19/19 16:00 98.6 110 24 100/53 (69) 93 08/19/19 16:00 12.0 55 08/19/19 16:00 Venturi Mask Venturi Mask Laboratory Tests Test 08/19/19 03:55 White Blood Count 11.9 K/UL (4.8-10.8) H Red Blood Count 3.99 M/UL (4.20-5.40) L Hemoglobin 9.7 G/DL (12.0-16.0) L Hematocrit 30.2 % (37.0-47.0) L Mean Corpuscular Volume 76 FL (80-99) L Mean Corpuscular Hemoglobin 24.3 PG (27.0-31.0) L Mean Corpuscular Hemoglobin Concent 32.0 G/DL (32.0-36.0) Red Cell Distribution Width 20.7 % (11.6-14.8) H Platelet Count 277 K/UL (150-450) Mean Platelet Volume 6.5 FL (6.5-10.1) Neutrophils (%) (Auto) 72.9 % (45.0-75.0) Lymphocytes (%) (Auto) 17.3 % (20.0-45.0) L Monocytes (%) (Auto) 4.6 % (1.0-10.0) Eosinophils (%) (Auto) 4.6 % (0.0-3.0) H Basophils (%) (Auto) 0.6 % (0.0-2.0) Sodium Level 140 MMOL/L (136-145) Potassium Level 3.9 MMOL/L (3.5-5.1) Chloride Level 102 MMOL/L (98-107) Carbon Dioxide Level 35 MMOL/L (21-32) H Anion Gap 3 mmol/L (5-15) L Blood Urea Nitrogen 11 mg/dL (7-18) Creatinine 0.3 MG/DL (0.55-1.30) L Estimat Glomerular Filtration Rate > 60 mL/min (>60) Glucose Level 90 MG/DL (74-106) Calcium Level 8.3 MG/DL (8.5-10.1) L Intake and Output 08/18/19 08/19/19 19:00 07:00 Intake Total 940 ml 485 ml Output Total 1370 ml 670 ml Balance -430 ml -185 ml Intake Free Water 400 ml 200 ml Tube Feeding 540 ml 225 ml Other 60 ml Output Urine Total 1370 ml 670 ml Objective General Appearance: WD/WN, moderate distress EENT: PERRL/EOMI, normal ENT inspection Neck: non-tender, normal alignment, supple Cardiovascular: normal peripheral pulses, normal rate, regular rhythm, no gallop/murmur, no JVD Respiratory/Chest: venturi mask; crackles/rales, rhonchi - bilaterally, expiratory wheezing Abdomen: normal bowel sounds, non tender, soft, no organomegaly, no mass Skin: normal pigmentation, warm/dry Assessment/Plan Problem List: (1) Respiratory failure with hypoxia Assessment & Plan: Tolerating nasal canula. S/P extubation 08/11/19 per pulmonary=Dr Bonilla (2) Pneumonia of both lower lobes Assessment & Plan: See ID note. S/P meropenem and zyvox (3) UTI (urinary tract infection) Assessment & Plan: Pseudamonas, ESBL E. Coli, and vanco resistant enterococcus. See ID note; Dr Sanabria signed off. Await new ID consult= Dr Buck/Milly. S/P meropenem, linezolid and micafugin (4) Sepsis (5) Paraplegia (6) Spina bifida Niraj Teixeira MD Aug 19, 2019 17:44
--- NOTE | 2019-08-19 19:01 | NUR ---
HAND-OFF: Report given to [facility]MA Salvador.
--- NOTE | 2019-08-19 19:48 | NUR ---
NURSE NOTES: LE:PATIENT AWOKE, ALERT, ORIENTED X2, RESPIRATION REGULAR, DENIED PAIN OR SOB, ON FIO2 50% VENTURI MASK, O2 SATURATION OVER 93% NOTED, NGT INTACT AND PATENT, ONGOING VITAL AF 1.2 AT 25ML/HR, NO RESIDUE NOTED, ABDOMEN SOFT, NO BM STATUS, SUPRAPUBIC CATHETER INTACT AND PATENT, RYAN COLOR URINE OUTED, PICC LINE TO LEFT UPPER ARM, INTACT AND PATENT, TKO STATUS, KEPT ASPIRATION PRECAUTION, ON P200 BED, ON BED ALARM AND LOCKED, PROVIDED CALL LIGHT WITHIN REACH, MADE LOWER BED POSITION, WILL CONTINUE TO MONITOR.
[2019-08-19] MEDS: Dyna-Hex 2% Top Sol 2oz TOPIC SCH (20:00)
--- NOTE | 2019-08-19 21:53 | NUR ---
NURSE NOTES: PATIENT IRRITABLE IN BED, TRIED TO REMOVE MASK THAT FIXED MASK AND ENCOURAGED CALM DOWN, WILL CONTINUE TO MONITOR.
--- NOTE | 2019-08-19 22:48 | NUR ---
NURSE NOTES: ON BIPAP I/E 06/28, FIO2 50%, O2 SATURATION 90% NOTED THAT INFORMED RT, WAS AWARE, WILL CONTINUE TO MONITOR.
[2019-08-20] VITALS (24 sets, daily range): BP systolic 96–133; BP diastolic 21–78
--- NOTE | 2019-08-20 01:17 | NUR ---
NURSE NOTES: PATIENT ASLEEP STATUS, ON BIPAP, NO SOB NOTED AT THIS TIME.
[2019-08-20] MEDS: Acetylcysteine 20% Soln 4ml HHN SCH ×6 (02:57→23:15)
[2019-08-20] MEDS: Albuterol/Ipratropium 3ml neb HHN SCH ×6 (02:57→23:15)
--- NOTE | 2019-08-20 03:30 | NUR ---
NURSE NOTES: PATIENT IRRITABLE IN BED, TRIED TO REMOVE BIPAP MASK, SECURED FULL FACE MASK, WILL CONTINUE TO MONITOR.
--- NOTE | 2019-08-20 04:51 | NUR ---
NURSE NOTES: MORNING CARE AND ORAL CARE WAS DONE, NO BM STATUS.
--- NOTE | 2019-08-20 05:35 | NUR ---
NURSE NOTES: PATIENT IRRITABLE, REMOVED BIPAP MASK SEVERAL TIMES, DID NOT FOLLOW COMMANDS THAT RT CHANGED TO FIO2 50%VENTURI MASK, O2 SATURATION 94% NOTED, WILL CONTINUE TO MONITOR.
--- NOTE | 2019-08-20 06:04 | NUR ---
NURSE NOTES: PATIENT TRIED TO REMOVE VENTURI MASK, DID NOT FOLLOW COMMANDS, PLACE 2 POINT SOFT RESTRAINTS ORDER, WILL CONTINUE TO MONITOR.
--- NOTE | 2019-08-20 06:17 | NUR ---
NURSE NOTES: CALLED RT REGARDING DESATURATION 80%-82% ON FIO2 50% VENTURI MASK THAT WAS AWARE.
--- NOTE | 2019-08-20 06:47 | NUR ---
NURSE NOTES: PATIENT ASLEEP, O2 SATURATION 100% NOTED ON 100% NRB.
--- NOTE | 2019-08-20 07:18 | NUR ---
HAND-OFF: Report given to EMMA AMARO.
--- NOTE | 2019-08-20 07:19 | NUR ---
NURSE NOTES: Report received from Modesto Lambert RN. Pt is awake and alert. Able to answer for simple questions and verbalize needs by repeating words. Pt is on bilateral soft wrist restraints since pt is con-compliant and trying to remove mask. Spinal bifida and mental delay noted. Sinus rhythm 90's on benefits representative. On non-rebreather 100%. O2 sat 98-100%. Left nare NGT in place and feeding held fo now. Suprapubic catheter in place draining yellow urine to gravity. JASON PICC line patent and asymptomatic. Bed in lowest position. Side rails up x3. Call light within reach. Will resume plan of care.
--- NOTE | 2019-08-20 08:26 | NUR ---
NURSE NOTES: Nasal suction done by RT after breathing treatment. Moderate amount of thick yellow bloody secretion noted. Pt is on Ventri 55%. O2 sat 100%. Will hold Eliquis.
[2019-08-20] MEDS: Pantoprazole Inj IV SCH (08:54)
[2019-08-20] MEDS: Eliquis 5mg tablet NGT SCH ×2 (08:54→17:54)
[2019-08-20] MEDS: Depakote 125mg Sprinkles NG SCH ×2 (08:54→20:24)
--- NOTE | 2019-08-20 10:00 | NUR ---
NURSE NOTES: Trial to remove restraints attempted. Patient keeps removing Ventri mask and desaturating x3. Teaching done but pt keeps removing Ventri mask. Will continue restraints on.
--- NOTE | 2019-08-20 10:55 | NUR ---
NURSE NOTES: Dr Davis here to see the patient. Updated him with pt's current condition including no BM for 3 days. Order to resume feeding and give Miralax received, noted, and carried out.
--- NOTE | 2019-08-20 11:21 | Infectious Diseases Prog Note ---
Assessment/Plan Assessment/Plan Assessment: Recurrent aspiration pneumonia, sp rx -08/18 cXR: The lungs remain clear. There may be some minimal basal atelectasis -08/14 CXR: Cardiomegaly. Mild interstitial congestion, unchanged over 3 days -07/31, 08/01 sp cx normal resp sunny -07/12 sp cx normal -07/12 SP FLEXIBLE FIBEROPTIC BRONCHOSCOPY WITH BRONCHOALVEOLAR LAVAGE AND THERAPEUTIC ASPIRATION OF MUCOUS PLUG LEFT LUNG -07/11/20 CXR: Bilateral pulmonary edema/infiltrates. Possible small pleural effusions. Fever, SP Leukocytosis, recurrent; improving Recurrent hypoxic respiratory failure 2ry to above -sp intubation 07/31/19 and extubation 08/11/19 -s/p intubation 07/12/19 and extubation 07/19/19 UTI ,sp RX -08/11 ucx C. parapsilosis (colinzer) - 07/12 Ucx PsA (R Ceftazidime, levaquin; I Ciprofloxacin; otherwise S), VRE ( S Amp, linezolid) -07/11/19 u/a wbc tntc, nit neg, leuk +3; ucx PsA, ESBL E.coli, P. mirabilis S. mitis bacteremia- likely contaminant -07/28 Bcx 07/26 S. 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 Will continue to follow along with you. Discussed with RN Subjective Allergies: Coded Allergies: LATEX (Verified Allergy, Severe, Rash on skin, 08/19/19) PENICILLIN G (Verified Allergy, Unknown, 12/02/18) Tolerates cabapenem, cephalosporin PENICILLINS (Unverified Allergy, Unknown, 12/02/18) Subjective afebrile mild leukocytosis Objective Vital Signs Last 24 Hour Vital Signs Date Time Temp Pulse Resp B/P (MAP) Pulse Ox O2 Delivery O2 Flow Rate FiO2 08/20/19 11:00 105 18 106/60 (75) 100 08/20/19 10:00 101 20 113/71 (85) 100 08/20/19 09:00 100 19 103/59 (74) 97 08/20/19 08:00 98.8 107 18 105/60 (75) 94 08/20/19 08:00 Bi-pap 14.0 Venturi Mask 08/20/19 08:00 14.0 55 08/20/19 07:47 105 26 98 Venturi Mask 14.0 55 101 24 99 08/20/19 07:40 100 Venturi Mask 14.0 55 08/20/19 07:00 97 19 97/64 (75) 100 08/20/19 06:00 101 29 109/66 (80) 90 08/20/19 05:13 97 19 98 Full Face 50 08/20/19 05:00 94 15 99/59 (72) 100 08/20/19 04:00 80 08/20/19 04:00 99.9 100 23 107/66 (80) 98 08/20/19 04:00 100 08/20/19 04:00 Bi-pap Bi-pap 08/20/19 03:00 96 22 101/42 (61) 99 08/20/19 02:59 95 21 97 Facial 50 08/20/19 02:58 98 22 98 Bi-Pap 50 95 21 97 08/20/19 02:00 96 19 96/21 (46) 100 08/20/19 01:00 95 19 105/32 (56) 96 08/20/19 00:51 92 16 98 Facial 50 08/20/19 00:00 Bi-pap Bi-pap 08/20/19 00:00 50 08/20/19 00:00 99.6 96 17 103/67 (79) 98 08/20/19 00:00 96 08/19/19 23:00 98 16 97/53 (68) 96 08/19/19 22:30 50 08/19/19 22:21 104 28 97 Facial 50 08/19/19 22:14 108 25 98 Venturi Mask 14.0 55 105 24 95 08/19/19 22:00 107 20 111/65 (80) 93 08/19/19 21:00 104 20 97/56 (70) 93 08/19/19 20:06 108 08/19/19 20:00 14.0 55 08/19/19 20:00 Venturi Mask 14.0 Venturi Mask 14.0 08/19/19 20:00 98.6 109 25 102/69 (80) 86 08/19/19 19:22 105 25 98 Venturi Mask 14.0 55 103 25 96 08/19/19 19:21 95 Venturi Mask 12.0 50 08/19/19 19:00 108 23 102/57 (72) 94 08/19/19 18:00 107 26 92/52 (65) 92 08/19/19 17:00 108 20 101/57 (72) 91 08/19/19 16:00 98.6 110 24 100/53 (69) 93 08/19/19 16:00 12.0 55 08/19/19 16:00 Venturi Mask Venturi Mask 08/19/19 16:00 101 08/19/19 15:35 24 26 100 Venturi Mask 14.0 55 104 18 98 08/19/19 15:00 103 21 100/37 (58) 96 08/19/19 14:00 100 22 104/69 (81) 97 08/19/19 13:00 100 27 98/67 (77) 99 08/19/19 12:00 98.2 102 22 101/66 (78) 92 08/19/19 12:00 100 08/19/19 12:00 Nasal Cannula 4.0 Nasal Cannula 4.0 08/19/19 12:00 12.0 55 Height (Feet): 4 Height (Inches): 10.00 Weight (Pounds): 114 Objective General Appearance: lethargic EENT: normal ENT inspection Neck: supple Cardiovascular: normal rate Respiratory/Chest: decreased breath sounds Abdomen: normal bowel sounds, non tender, soft Extremities: non-tender Current Medications Medications (Trade) Dose Ordered Sig/Sandeep Route PRN Reason Start Time Stop Time Status Last Admin Dose Admin Acetylcysteine (Mucomyst) 400 mg Q4HRT [facility] 08/16/19 11:00 09/15/19 10:59 08/20/19 07:51 Albuterol/ Ipratropium (Albuterol/ Ipratropium) 3 ml Q4HRT [facility] 08/17/19 15:00 08/22/19 14:59 08/20/19 07:51 Apixaban (Eliquis) 5 mg BID NGT 08/16/19 09:00 09/11/19 17:59 08/18/19 08:53 Chlorhexidine Gluconate (Debora-Hex 2%) 1 applic DAILY@2000 TOPIC 08/13/19 20:00 09/12/19 19:59 08/19/19 20:00 Divalproex Sodium (Depakote Sprinkles) 500 mg Q12HR NG 08/15/19 21:00 09/14/19 20:59 08/20/19 08:54 Metoclopramide HCl (Reglan) 5 mg Q6H PRN IVP Nausea & Vomiting 08/04/19 10:00 09/03/19 09:59 Pantoprazole (Protonix) 40 mg DAILY IV 08/01/19 09:00 08/31/19 08:59 08/20/19 08:54 Polyethylene Glycol (Miralax) 17 gm BEDTIME ORAL 08/20/19 21:00 09/19/19 20:59 Joaquina Hill M.D. Aug 20, 2019 11:21
--- NOTE | 2019-08-20 11:52 | General Progress Note ---
Assessment/Plan Problem List: (1) Spina bifida ICD Codes: Q05.9 - Spina bifida, unspecified SNOMED: 88647606 Qualifiers: Qualified Codes: Q05.4 - Unspecified spina bifida with hydrocephalus (2) Respiratory failure with hypoxia ICD Codes: J96.91 - Respiratory failure, unspecified with hypoxia SNOMED: 19352560647099847 Qualifiers: Qualified Codes: J96.21 - Acute and chronic respiratory failure with hypoxia (3) Dysphagia ICD Codes: R13.10 - Dysphagia, unspecified SNOMED: 32008594, [id number] Status: unchanged Assessment/Plan: extubated on BIPAP ppi repeat labs fu H&H stool ob neg x1 samanlan family wants to transfer the patient to [facility] and refusing PEG here at [place] failed swallow eval pending VAS NGTF for now will fu Subjective ROS Limited/Unobtainable: No Allergies: Coded Allergies: LATEX (Verified Allergy, Severe, Rash on skin, 08/19/19) PENICILLIN G (Verified Allergy, Unknown, 12/02/18) Tolerates cabapenem, cephalosporin PENICILLINS (Unverified Allergy, Unknown, 12/02/18) Objective Last 24 Hour Vital Signs Date Time Temp Pulse Resp B/P (MAP) Pulse Ox O2 Delivery O2 Flow Rate FiO2 08/20/19 11:00 105 18 106/60 (75) 100 08/20/19 10:00 101 20 113/71 (85) 100 08/20/19 09:00 100 19 103/59 (74) 97 08/20/19 08:00 98.8 107 18 105/60 (75) 94 08/20/19 08:00 Bi-pap 14.0 Venturi Mask 08/20/19 08:00 14.0 55 08/20/19 07:47 105 26 98 Venturi Mask 14.0 55 101 24 99 08/20/19 07:40 100 Venturi Mask 14.0 55 08/20/19 07:00 97 19 97/64 (75) 100 08/20/19 06:00 101 29 109/66 (80) 90 08/20/19 05:13 97 19 98 Full Face 50 08/20/19 05:00 94 15 99/59 (72) 100 08/20/19 04:00 80 08/20/19 04:00 99.9 100 23 107/66 (80) 98 08/20/19 04:00 100 08/20/19 04:00 Bi-pap Bi-pap 08/20/19 03:00 96 22 101/42 (61) 99 08/20/19 02:59 95 21 97 Facial 50 08/20/19 02:58 98 22 98 Bi-Pap 50 95 21 97 08/20/19 02:00 96 19 96/21 (46) 100 08/20/19 01:00 95 19 105/32 (56) 96 08/20/19 00:51 92 16 98 Facial 50 08/20/19 00:00 Bi-pap Bi-pap 08/20/19 00:00 50 08/20/19 00:00 99.6 96 17 103/67 (79) 98 08/20/19 00:00 96 08/19/19 23:00 98 16 97/53 (68) 96 08/19/19 22:30 50 08/19/19 22:21 104 28 97 Facial 50 08/19/19 22:14 108 25 98 Venturi Mask 14.0 55 105 24 95 08/19/19 22:00 107 20 111/65 (80) 93 08/19/19 21:00 104 20 97/56 (70) 93 08/19/19 20:06 108 08/19/19 20:00 14.0 55 08/19/19 20:00 Venturi Mask 14.0 Venturi Mask 14.0 08/19/19 20:00 98.6 109 25 102/69 (80) 86 08/19/19 19:22 105 25 98 Venturi Mask 14.0 55 103 25 96 08/19/19 19:21 95 Venturi Mask 12.0 50 08/19/19 19:00 108 23 102/57 (72) 94 08/19/19 18:00 107 26 92/52 (65) 92 08/19/19 17:00 108 20 101/57 (72) 91 08/19/19 16:00 98.6 110 24 100/53 (69) 93 08/19/19 16:00 12.0 55 08/19/19 16:00 Venturi Mask Venturi Mask 08/19/19 16:00 101 08/19/19 15:35 24 26 100 Venturi Mask 14.0 55 104 18 98 08/19/19 15:00 103 21 100/37 (58) 96 08/19/19 14:00 100 22 104/69 (81) 97 08/19/19 13:00 100 27 98/67 (77) 99 08/19/19 12:00 98.2 102 22 101/66 (78) 92 08/19/19 12:00 100 08/19/19 12:00 Nasal Cannula 4.0 Nasal Cannula 4.0 08/19/19 12:00 12.0 55 Intake and Output 08/19/19 08/20/19 19:00 07:00 Intake Total 600 ml 160 ml Output Total 630 ml 630 ml Balance -30 ml -470 ml Intake Free Water 300 ml Tube Feeding 300 ml 100 ml Other 60 ml Output Urine Total 630 ml 630 ml Height (Feet): 4 Height (Inches): 10.00 Weight (Pounds): 114 General Appearance: lethargic EENT: PERRL/EOMI Neck: supple Cardiovascular: normal rate Respiratory/Chest: decreased breath sounds Abdomen: normal bowel sounds, non tender, soft Extremities: non-tender Tim Davis MD Aug 20, 2019 11:52
--- NOTE | 2019-08-20 12:00 | NUR ---
NURSE NOTES: Bilateral soft restraints discontinued since pt is calm and cooperative to care. Will closely monitor pt.
--- NOTE | 2019-08-20 12:03 | Internal Med Progress Note ---
Subjective Date of Service: Aug 20, 2019 Physician Name Niraj Teixeira Attending Physician Wil Masters MD Current Medications Medications (Trade) Dose Ordered Sig/Sandeep Route PRN Reason Start Time Stop Time Status Last Admin Dose Admin Acetylcysteine (Mucomyst) 400 mg Q4HRT [facility] 08/16/19 11:00 09/15/19 10:59 08/20/19 11:59 Albuterol/ Ipratropium (Albuterol/ Ipratropium) 3 ml Q4HRT N 08/17/19 15:00 08/22/19 14:59 08/20/19 11:59 Apixaban (Eliquis) 5 mg BID NGT 08/16/19 09:00 09/11/19 17:59 08/18/19 08:53 Chlorhexidine Gluconate (Debora-Hex 2%) 1 applic DAILY@1999 TOPIC 08/13/19 20:00 09/12/19 19:59 08/19/19 20:00 Divalproex Sodium (Depakote Sprinkles) 500 mg Q12HR NG 08/15/19 21:00 09/14/19 20:59 08/20/19 08:54 Metoclopramide HCl (Reglan) 5 mg Q6H PRN IVP Nausea & Vomiting 08/04/19 10:00 09/03/19 09:59 Pantoprazole (Protonix) 40 mg DAILY IV 08/01/19 09:00 08/31/19 08:59 08/20/19 08:54 Polyethylene Glycol (Miralax) 17 gm BEDTIME ORAL 08/20/19 21:00 09/19/19 20:59 Allergies: Coded Allergies: LATEX (Verified Allergy, Severe, Rash on skin, 08/19/19) PENICILLIN G (Verified Allergy, Unknown, 12/02/18) Tolerates cabapenem, cephalosporin PENICILLINS (Unverified Allergy, Unknown, 12/02/18) ROS Limited/Unobtainable: Yes Subjective 49 YO F with pneumonia and respiratory failure. Extubated 08/11/19. Cover for Manny Perdomo-DR Masters. ICU. Back on venturi mask Objective Last Vital Signs Date Time Temp Pulse Resp B/P (MAP) Pulse Ox O2 Delivery O2 Flow Rate FiO2 08/20/19 11:55 99 19 98 Venturi Mask 14.0 55 98 18 96 08/20/19 11:00 106/60 (75) 08/20/19 08:00 98.8 Intake and Output 08/19/19 08/20/19 19:00 07:00 Intake Total 600 ml 160 ml Output Total 630 ml 630 ml Balance -30 ml -470 ml Intake Free Water 300 ml Tube Feeding 300 ml 100 ml Other 60 ml Output Urine Total 630 ml 630 ml Objective General Appearance: WD/WN, moderate distress EENT: PERRL/EOMI, normal ENT inspection Neck: non-tender, normal alignment, supple Cardiovascular: normal peripheral pulses, normal rate, regular rhythm, no gallop/murmur, no JVD Respiratory/Chest: venturi mask; crackles/rales, rhonchi - bilaterally, expiratory wheezing Abdomen: normal bowel sounds, non tender, soft, no organomegaly, no mass Skin: normal pigmentation, warm/dry Assessment/Plan Problem List: (1) Respiratory failure with hypoxia Assessment & Plan: Tolerating venturi mask. S/P extubation 08/11/19 per pulmonary=Dr Bonilla (2) Pneumonia of both lower lobes Assessment & Plan: See ID note. S/P meropenem and zyvox (3) UTI (urinary tract infection) Assessment & Plan: Pseudamonas, ESBL E. Coli, and vanco resistant enterococcus. See ID note; Dr Sanabria signed off. Await new ID consult= Dr Buck/Milly. S/P meropenem, linezolid and micafugin (4) Sepsis (5) Paraplegia (6) Spina bifida Niraj Teixeira MD Aug 20, 2019 12:03
--- NOTE | 2019-08-20 12:23 | NUR ---
NURSE NOTES: Trial to remove restraints attempted. Patient keeps removing Ventri mask and desaturating x3. Teaching done but pt keeps removing Ventri mask. Will continue restraints on. Addendum: 08/20/19 at 1751 by DEMETRIA HERRMANN RN RN wrong time
--- NOTE | 2019-08-20 12:31 | NUR ---
HOUSEKEEPING ASSOCIATEARTIFICIAL BREAST FABRICATOR SI; RESP FAILURE S/P EXTUBATION T. 98.8 HR 107 RR 20 B/P 103/59 VM 55% IS: JANICE CHANDLER ICU STATUS
--- NOTE | 2019-08-20 14:30 | NUR ---
NURSE NOTES: Pt is still on ventri mask 55%, 14L. Pt desaturates whenever she removes the mask. Risks explained to the patient and teaching done. Call light within reach. Will continue to monitor.
--- NOTE | 2019-08-20 17:00 | NUR ---
NURSE NOTES: Cleaned and repositioned pt. O2 sat 100% on N/C 4L. Will continue to monitor.
--- NOTE | 2019-08-20 19:08 | NUR ---
HAND-OFF: Report given to EMMA Giordano.
--- NOTE | 2019-08-20 19:09 | NUR ---
NURSE NOTES: SBAR from Jamie. Patient is awake and responsive at this time. Able to follow commands. Vitals are stable, temperature is 98.8F. Currently is on nasal cannula at 4L with spo2 of 95%, breathing pattern is normal. NGT noted and receiving Vital AF at 35ml/hr. Suprapubic cath noted and hanging below waist, draining well. JASON PICC line noted, dressing is dry and intact. P200 mattress noted. Old sacral wound noted. Call light is within reach and bed in lowest position, bed alarm on and room closest to nursing station.
--- NOTE | 2019-08-20 20:12 | NUR ---
NURSE NOTES: Repositioned CPT vest for 10 minutes, breathing treatment given, then suctioned via nasally. increased feed to 45ml/hr feed residual of 50ml flushed 200ml H20 Family at bedside, updated them of plan of care
[2019-08-20] MEDS: Dyna-Hex 2% Top Sol 2oz TOPIC SCH (20:24)
[2019-08-20] MEDS: Miralax 17gm pkt ORAL SCH (20:24)
--- NOTE | 2019-08-20 22:13 | NUR ---
NURSE NOTES: Repositioned VSS Breathing effort normal No acute distress NC 4L SpO2 100% No BM yet.
--- NOTE | 2019-08-20 23:30 | NUR ---
NURSE NOTES: CPT vest on for 15minutes, breathing treatment then suctioned nasally. Tolerated well.
--- NOTE | 2019-08-20 23:35 | NUR ---
NURSE NOTES: Placed on bipap 12/, 50%. Feeds held during BIPAP hours
[2019-08-21] VITALS (24 sets, daily range): BP systolic 90–126; BP diastolic 55–73
--- NOTE | 2019-08-21 | NUR ---
NURSE NOTES: Repositioned Oral care VSS 99.3F orally On BIPAP Spo2 96%, FiO2 50%
--- NOTE | 2019-08-21 02:00 | NUR ---
NURSE NOTES: Repositioned VS are stable Asleep Remains on BIPAP Feeds remained on hold Breathing pattern normal
[2019-08-21] MEDS: Albuterol/Ipratropium 3ml neb HHN SCH ×6 (03:27→23:07)
[2019-08-21] MEDS: Acetylcysteine 20% Soln 4ml HHN SCH ×6 (03:27→23:07)
--- NOTE | 2019-08-21 03:40 | NUR ---
NURSE NOTES: CPT vest therapy for 15 minutes, breathing tx and then nasally deep suctioned Placed on NC at 4L 200ml H20 NGT flushed Restarted feeds at 50ml/hr Patient tolerated well awake and alert at this time afebrile, cool to touch
--- NOTE | 2019-08-21 04:00 | NUR ---
NURSE NOTES: Sponge bath given New Optifoam applied Reality reorientation provided Oral care given PICC line flushed, remains patent and intact. Blood drawn and sent to lab
[2019-08-21 04:18] LABS: BASOPHILS % (AUTO) 0.7 % (0.0-2.0); EOSINOPHILS % (AUTO) 1.3 % (0.0-3.0); HEMATOCRIT 31.2 % (37.0-47.0); HEMOGLOBIN 10.1 G/DL (12.0-16.0); LYMPHOCYTES % (AUTO) 18.7 % (20.0-45.0); MEAN CORPUSCULAR VOLUME 75 FL (80-99); MONOCYTES % (AUTO) 6.2 % (1.0-10.0); NEUTROPHILS % (AUTO) 73.1 % (45.0-75.0); PLATELET COUNT 289 K/UL (150-450); RED BLOOD COUNT 4.14 M/UL (4.20-5.40); RED CELL DISTRIBUTION WIDTH 20.2 % (11.6-14.8); WHITE BLOOD COUNT 15.2 K/UL (4.8-10.8)
[2019-08-21 04:19] LABS: ANION GAP 6 mmol/L (5-15); BLOOD UREA NITROGEN 16 mg/dL (7-18); CALCIUM 8.1 MG/DL (8.5-10.1); CARBON DIOXIDE 36 MMOL/L (21-32); CHLORIDE 100 MMOL/L (98-107); CREATININE 0.4 MG/DL (0.55-1.30); POTASSIUM 3.8 MMOL/L (3.5-5.1); SODIUM 142 MMOL/L (136-145)
--- NOTE | 2019-08-21 05:00 | NUR ---
NURSE NOTES: Placed patient back on BIPAP 06/28, 50% FiO2 Feeds held SpO2 96% Patient sleeping at this time.
--- NOTE | 2019-08-21 05:45 | Progress Note ---
DATE: 08/20/2019 SUBJECTIVE: The patient is more awake, responsive, follows command. No behavioral issues. She has episodes of anxiety and improved. The patient is following more directions on soft restraints. MENTAL STATUS EXAMINATION: The patient is alert, disoriented to situation. Mood is neutral. Affect is flat. Thought process is concrete. Thought content, no suicidal or homicidal ideation. ASSESSMENT: 1. Anxiety disorder. 2. Developmental disability. PLAN: We will continue current medication. Kobi Reyes M.D. DR: SOPHIA JOB#: [id number] CC: IZAIAH
--- NOTE | 2019-08-21 06:17 | NUR ---
NURSE NOTES: Repositioned VSS Spo2 98% Remains on BIPAP NAD at this time
[2019-08-21] MEDS ORDERED: NS 500ML ONE (06:23)
[2019-08-21] MEDS ORDERED: Tubing IV Secondary IV ONE (06:23)
[2019-08-21] MEDS ORDERED: NS 275ml ONE (06:23)
--- NOTE | 2019-08-21 06:34 | NUR ---
NURSE NOTES: off bipap now NC at 4L awake and alert SpO2 96% HR 95 NSR cool to touch afebrile other VS stable
--- NOTE | 2019-08-21 07:17 | NUR ---
HAND-OFF: Report given to Mary Whitney RN.
--- NOTE | 2019-08-21 07:18 | NUR ---
NURSE NOTES: RECEIVED PATIENT FROM Tristan STRATTON RN. PATIENT IS LYING IN BED, AWAKE, ALERT AND RESPONSIVE. HOOKED TO CLIENT TECHNOLOGIES ANALYST. ON 4L NC. NO SIGNS OF DISTRESS OF THE MOMENT. NGT ON WITH TF VITAL AF 1.2 AT 50ML/HR. SUPRAPUBIC NOTED CONNECTED TO BAG, PATENT AND DRAINING URINE. NOTED SKIN ALTERATION. ON JOSE MATTRESS. PICC ON L UA, TKO. ONLY 1 LINE DRAWING BLOOD. CALL LIGHT WITHIN REACH. SIDE RAILS UP. BED AT LOWEST POSITION. WILL CONTINUE TO MONITOR.
[2019-08-21] MEDS: Eliquis 5mg tablet NGT SCH ×2 (08:30→18:17)
[2019-08-21] MEDS: Depakote 125mg Sprinkles NG SCH ×2 (08:30→21:04)
[2019-08-21] MEDS: Pantoprazole Inj IV SCH (08:31)
--- NOTE | 2019-08-21 08:58 | Pulmonolgy Critical Care Note ---
Critical Care - Asmt/Plan Assessment/Plan: (1) Pneumonia of both lower lobes Assessment & Plan: VDRF, intubated 07/12/19, S/P FOB 07/12/19; Reintubated ; extubated 08/11/19 (2) Catheter-associated urinary tract infection Assessment & Plan: PsA and proteus - s/p treatment (3) Respiratory failure with hypoxia Assessment & Plan: Acute on chronic hypercapnic and hypoxemic RF 2/2 PNA Duplex neg, minimally elevated d-dimer, unlikely VTE and already on a NOAC (4) HCAP (healthcare-associated pneumonia) (5) Paraplegia (6) Sepsis (7) Suprapubic catheter (8) Restrictive lung disease due to kyphoscoliosis (9) Decubitus skin ulcer (10) Spina bifida (11) Anemia, acute (12) hx recurrent PE on eliquis Plan: * Wean oxygen as tolerated, BiPAP at night * NT suctionining, VEST therapy * NGT for feeds * Not able to have video swallow now due to above and refusing even bedside PO assessment earlier * BiPAP qhs and prn * High risk for recurrent respiratory failure and reintubation and discussed with the patient's family previously * If gets reintubated, will need trach placement * Good pulmonary hygiene: duonebs and mucomyst q4 * Discussed with patient's outpatient primary, Dr. Oliveros. She had recurrent PE as outpatient. Cont eliquis 5 mg bid and monitor H/H * Assess for d/c planning to LTACH or family may take patient AMA Critical Care - Objective Last 24 Hour Vital Signs Date Time Temp Pulse Resp B/P (MAP) Pulse Ox O2 Delivery O2 Flow Rate FiO2 08/21/19 08:00 99.3 101 20 97/57 (70) 96 08/21/19 07:14 97 22 93 Nasal Cannula 3.0 32 95 20 94 08/21/19 07:00 94 24 112/65 (81) 100 08/21/19 06:55 94 08/21/19 06:54 94 Nasal Cannula 3.0 32 08/21/19 06:35 4.0 08/21/19 06:00 50 08/21/19 06:00 91 16 103/63 (76) 98 08/21/19 05:37 98 14 97 Full Face 30 08/21/19 05:00 50 08/21/19 05:00 100 18 90/55 (67) 100 08/21/19 04:00 98.6 96 21 94/57 (69) 94 08/21/19 04:00 Nasal Cannula 4.0 Nasal Cannula 4.0 08/21/19 04:00 95 08/21/19 04:00 4.0 08/21/19 03:45 50 08/21/19 03:27 96 20 100 Nasal Cannula 3.0 32 91 20 95 08/21/19 03:00 50 08/21/19 03:00 91 18 107/67 (80) 98 08/21/19 02:00 50 08/21/19 02:00 105 20 114/69 (84) 99 08/21/19 01:30 107 17 93 Full Face 50 08/21/19 01:00 50 08/21/19 01:00 103 18 111/70 (84) 94 08/21/19 00:00 110 08/21/19 00:00 99.2 110 19 105/62 (76) 93 08/21/19 00:00 Nasal Cannula 4.0 Nasal Cannula 4.0 08/20/19 23:45 111 18 92 Full Face 50 08/20/19 23:30 50 08/20/19 23:18 102 20 100 Nasal Cannula 3.0 32 100 20 99 08/20/19 23:00 97 17 109/70 (83) 95 08/20/19 22:00 105 20 114/69 (84) 99 08/20/19 21:00 109 17 106/64 (78) 93 08/20/19 20:00 106 08/20/19 20:00 Nasal Cannula 4.0 Nasal Cannula 4.0 08/20/19 20:00 4.0 08/20/19 20:00 98.8 106 25 105/71 (82) 91 08/20/19 19:48 100 Nasal Cannula 3.0 32 08/20/19 19:37 96 20 100 Nasal Cannula 3.0 32 93 20 98 08/20/19 19:00 104 24 102/75 (84) 95 08/20/19 18:00 108 17 100/56 (71) 100 08/20/19 17:00 111 25 133/78 (96) 100 08/20/19 16:00 Nasal Cannula 4.0 Nasal Cannula 4.0 08/20/19 16:00 107 25 103/60 (74) 100 08/20/19 16:00 108 08/20/19 16:00 4.0 08/20/19 15:55 100 27 100 Venturi Mask 14.0 55 99 32 99 08/20/19 15:00 101 25 112/67 (82) 95 08/20/19 14:00 105 19 102/57 (72) 98 08/20/19 13:00 99.2 106 18 97/55 (69) 99 08/20/19 12:00 95 20 122/67 (85) 100 08/20/19 12:00 Venturi Mask 14.0 Venturi Mask 14.0 08/20/19 12:00 14.0 55 08/20/19 11:58 96 08/20/19 11:55 99 19 98 Venturi Mask 14.0 55 98 18 96 08/20/19 11:00 105 18 106/60 (75) 100 08/20/19 10:00 101 20 113/71 (85) 100 08/20/19 09:00 100 19 103/59 (74) 97 Status: awake HEENT: atraumatic Lungs: rhonchi Heart: HR/BP stable Abdomen: soft, non-tender Extremities: edema Accucheck: 114 Critical Care - Subjective ROS Limited/Unobtainable: Yes Interval Events: Unchanged. Cont oral secretions. No swallow eval done yet. No fevers FI02: 32 Vent Support Breath Rate: 14 Vent Support Mode: BiLevel Vent Tidal Volume: 400 Sputum Amount: Small PEEP: 5.0 PIP: 22 Tube Feeding Amount: 50 I&O: Intake and Output 08/20/19 08/21/19 19:00 07:00 Intake Total 325 ml 680 ml Output Total 600 ml 555 ml Balance -275 ml 125 ml Intake Free Water 50 ml 400 ml Tube Feeding 275 ml 280 ml Output Urine Total 600 ml 555 ml # Bowel Movements 1 ET-Tube: 7.5 ET Position: 23 Walker Bonilla MD Aug 21, 2019 08:58
--- NOTE | 2019-08-21 08:59 | NUR ---
NURSE NOTES: SEEN AND EXAMINED BY DR MONDRAGON. NNO. WILL CONTINUE TO MONITOR.
--- NOTE | 2019-08-21 10:00 | NUR ---
NURSE NOTES: WOUND CARE DONE. NOTED REDNESS ON LEFT TROCHANTER. WILL CONTINUE TO MONITOR.
--- NOTE | 2019-08-21 10:10 | NUR ---
NURSE NOTES: SPOKE WITH THE SISTER OVER THE PHONE. ALL QUESTIONS ANSWERED. PLAN TO GO AMA BUT AWAITING FOR THE AMBULANCE.
--- NOTE | 2019-08-21 10:42 | NUR ---
INTERNAL CONTROLS SPECIALISTSTRATEGY PLANNING CONSULTANT SI; RESP FAILURE S/P EXTUBATION, SEPSIS T. 99.3 HR 101 RR 20 B/P 97/56 4L N/C PH 7.47 PCO2 49.8 PO2 45.3 HCO3 36.0 O2 SAT 82.2 WBC 15.2 CO2 36 IS: ELIQUISE NGT MIRALAX NGT DEPAKOTE NGT PROTONIX NGT ICU STATUS
--- NOTE | 2019-08-21 10:49 | NUR ---
NURSE NOTES: INFORMED DR MONDRAGON RE ABG RESULT. AWAITING FOR CALL BACK. CPT DONE. SUCTIONED AND REPOSITIONED PATIENT. WILL CONTINUE TO MONITOR PATIENT.
--- NOTE | 2019-08-21 10:50 | NUR ---
NURSE NOTES: INFORMED DR MONDRAGON RE ABG RESULT. AWAITING FOR CALL BACK.
--- NOTE | 2019-08-21 11:00 | NUR ---
NURSE NOTES: CPT DONE. SUCTIONED AND REPOSITIONED PATIENT. PLACED PT ON VENTURI MASK 45% at 10L. NO SIGNS OF DISTRESS OF THE MOMENT. WILL CONTINUE TO MONITOR.
--- NOTE | 2019-08-21 11:03 | NUR ---
ST NOTES: SWALLOW STATUS: PATIENT IS STILL IN ICU AND ON BIPAP AT TIMES. SHE IS STILL HAVING A LOT OF OROPHARYNGEAL SECRETIONS THAT NEED TO BE SUCTIONED FREQUENTLY PER RTs and PER EMMA COTTON. SHE IS STILL NOT READY FOR A MODIFIED BARIUM SWALLOW STUDY (MBSS) IF SHE CANNOT MANAGE HER OWN SECRETIONS. PLAN: CONTINUE WITH NGT FEEDINGS AND ORAL CARE/SUCTION IF RECEPTIVE (SHE REFUSED DEEP NASAL AND ORAL SUCTION MANY TIMES) MONITOR FOR MBSS READINESS RNLULA TO RELAY THIS INFORMATION TO HER SISTER, HAMMAD
--- NOTE | 2019-08-21 11:23 | General Progress Note ---
Assessment/Plan Problem List: (1) Spina bifida ICD Codes: Q05.9 - Spina bifida, unspecified SNOMED: [id number] Qualifiers: Qualified Codes: Q05.4 - Unspecified spina bifida with hydrocephalus (2) Respiratory failure with hypoxia ICD Codes: J96.91 - Respiratory failure, unspecified with hypoxia SNOMED: [id number] Qualifiers: Qualified Codes: J96.21 - Acute and chronic respiratory failure with hypoxia (3) Dysphagia ICD Codes: R13.10 - Dysphagia, unspecified SNOMED: 71600091, [id number] Status: unchanged Assessment/Plan: extubated on BIPAP ppi repeat labs fu H&H stool ob neg x1 reglan family wants to transfer the patient to [facility] and refusing PEG here at [place] failed swallow eval pending VAS NGTF for now will need peg but family refusing will fu Subjective ROS Limited/Unobtainable: No Allergies: Coded Allergies: LATEX (Verified Allergy, Severe, Rash on skin, 08/19/19) PENICILLIN G (Verified Allergy, Unknown, 12/02/18) Tolerates cabapenem, cephalosporin PENICILLINS (Unverified Allergy, Unknown, 12/02/18) Objective Last 24 Hour Vital Signs Date Time Temp Pulse Resp B/P (MAP) Pulse Ox O2 Delivery O2 Flow Rate FiO2 08/21/19 10:29 104 25 94 Venturi Mask 10.0 45 103 22 86 08/21/19 10:00 101 18 97/65 (76) 94 08/21/19 09:00 99 26 105/60 (75) 95 08/21/19 08:00 Nasal Cannula 4.0 Nasal Cannula 4.0 08/21/19 08:00 99.3 101 20 97/57 (70) 96 08/21/19 07:14 97 22 93 Nasal Cannula 3.0 32 95 20 94 08/21/19 07:00 94 24 112/65 (81) 100 08/21/19 06:55 94 08/21/19 06:54 94 Nasal Cannula 3.0 32 08/21/19 06:35 4.0 08/21/19 06:00 50 08/21/19 06:00 91 16 103/63 (76) 98 08/21/19 05:37 98 14 97 Full Face 30 08/21/19 05:00 50 08/21/19 05:00 100 18 90/55 (67) 100 08/21/19 04:00 98.6 96 21 94/57 (69) 94 08/21/19 04:00 Nasal Cannula 4.0 Nasal Cannula 4.0 08/21/19 04:00 95 08/21/19 04:00 4.0 08/21/19 03:45 50 08/21/19 03:27 96 20 100 Nasal Cannula 3.0 32 91 20 95 08/21/19 03:00 50 08/21/19 03:00 91 18 107/67 (80) 98 08/21/19 02:00 50 08/21/19 02:00 105 20 114/69 (84) 99 08/21/19 01:30 107 17 93 Full Face 50 08/21/19 01:00 50 08/21/19 01:00 103 18 111/70 (84) 94 08/21/19 00:00 110 08/21/19 00:00 99.2 110 19 105/62 (76) 93 08/21/19 00:00 Nasal Cannula 4.0 Nasal Cannula 4.0 08/20/19 23:45 111 18 92 Full Face 50 08/20/19 23:30 50 08/20/19 23:18 102 20 100 Nasal Cannula 3.0 32 100 20 99 08/20/19 23:00 97 17 109/70 (83) 95 08/20/19 22:00 105 20 114/69 (84) 99 08/20/19 21:00 109 17 106/64 (78) 93 08/20/19 20:00 106 08/20/19 20:00 Nasal Cannula 4.0 Nasal Cannula 4.0 08/20/19 20:00 4.0 08/20/19 20:00 98.8 106 25 105/71 (82) 91 08/20/19 19:48 100 Nasal Cannula 3.0 32 08/20/19 19:37 96 20 100 Nasal Cannula 3.0 32 93 20 98 08/20/19 19:00 104 24 102/75 (84) 95 08/20/19 18:00 108 17 100/56 (71) 100 08/20/19 17:00 111 25 133/78 (96) 100 08/20/19 16:00 Nasal Cannula 4.0 Nasal Cannula 4.0 08/20/19 16:00 107 25 103/60 (74) 100 08/20/19 16:00 108 08/20/19 16:00 4.0 08/20/19 15:55 100 27 100 Venturi Mask 14.0 55 99 32 99 08/20/19 15:00 101 25 112/67 (82) 95 08/20/19 14:00 105 19 102/57 (72) 98 08/20/19 13:00 99.2 106 18 97/55 (69) 99 08/20/19 12:00 95 20 122/67 (85) 100 08/20/19 12:00 Venturi Mask 14.0 Venturi Mask 14.0 08/20/19 12:00 14.0 55 08/20/19 11:58 96 08/20/19 11:55 99 19 98 Venturi Mask 14.0 55 98 18 96 Intake and Output 08/20/19 08/21/19 19:00 07:00 Intake Total 325 ml 680 ml Output Total 600 ml 555 ml Balance -275 ml 125 ml Intake Free Water 50 ml 400 ml Tube Feeding 275 ml 280 ml Output Urine Total 600 ml 555 ml # Bowel Movements 1 Laboratory Tests 08/21/19 04:00: White Blood Count 15.2H, Red Blood Count 4.14L, Hemoglobin 10.1L, Hematocrit 31.2L, Mean Corpuscular Volume 75L, Mean Corpuscular Hemoglobin 24.3L, Mean Corpuscular Hemoglobin Concent 32.3, Red Cell Distribution Width 20.2H, Platelet Count 289, Mean Platelet Volume 6.2L, Neutrophils (%) (Auto) 73.1, Lymphocytes (%) (Auto) 18.7L, Monocytes (%) (Auto) 6.2, Eosinophils (%) (Auto) 1.3, Basophils (%) (Auto) 0.7, Sodium Level 142, Potassium Level 3.8, Chloride Level 100, Carbon Dioxide Level 36H, Anion Gap 6, Blood Urea Nitrogen 16, Creatinine 0.4L, Estimat Glomerular Filtration Rate > 60, Glucose Level 106, Calcium Level 8.1L 08/21/19 09:24: Arterial Blood pH 7.477H, Arterial Blood Partial Pressure CO2 49.8H, Arterial Blood Partial Pressure O2 45.3*L, Arterial Blood HCO3 36.0H, Arterial Blood Oxygen Saturation 82.2*L, Arterial Blood Base Excess 11.0*H, Gerard Test Positive Height (Feet): 4 Height (Inches): 10.00 Weight (Pounds): 120 General Appearance: lethargic EENT: normal ENT inspection Neck: supple Cardiovascular: normal rate Respiratory/Chest: decreased breath sounds Abdomen: normal bowel sounds, non tender, soft Extremities: non-tender Tim Davis MD Aug 21, 2019 11:23
--- NOTE | 2019-08-21 13:00 | NUR ---
NURSE NOTES: PATIENT KEPT CLEAN AND DRY. CONTINUE TO MONITOR.
--- NOTE | 2019-08-21 13:19 | Infectious Diseases Prog Note ---
Assessment/Plan Assessment/Plan Assessment: Recurrent aspiration pneumonia -08/18 cXR: The lungs remain clear. There may be some minimal basal atelectasis -08/14 CXR: Cardiomegaly. Mild interstitial congestion, unchanged over 3 days -07/31, 08/01 sp cx normal resp sunny -07/12 sp cx normal -07/12 SP FLEXIBLE FIBEROPTIC BRONCHOSCOPY WITH BRONCHOALVEOLAR LAVAGE AND THERAPEUTIC ASPIRATION OF MUCOUS PLUG LEFT LUNG -07/11/20 CXR: Bilateral pulmonary edema/infiltrates. Possible small pleural effusions. Fever, SP Leukocytosis, recurrent; increased Recurrent hypoxic respiratory failure 2ry to above -sp intubation 07/31/19 and extubation 08/11/19 -s/p intubation 07/12/19 and extubation 07/19/19 UTI ,sp RX -08/11 ucx C. parapsilosis (colinzer) - 07/12 Ucx PsA (R Ceftazidime, levaquin; I Ciprofloxacin; otherwise S), VRE ( S Amp, linezolid) -07/11/19 u/a wbc tntc, nit neg, leuk +3; ucx PsA, ESBL E.coli, P. mirabilis S. mitis bacteremia- likely contaminant -07/28 Bcx 07/26 S. 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 Will continue to follow along with you. Discussed with RN Subjective Allergies: Coded Allergies: LATEX (Verified Allergy, Severe, Rash on skin, 08/19/19) PENICILLIN G (Verified Allergy, Unknown, 12/02/18) Tolerates cabapenem, cephalosporin PENICILLINS (Unverified Allergy, Unknown, 5/13/19) Subjective afebrile leukocytosis increased now on Venturi mask due to desaturation family patient signed AMA form Objective Vital Signs Last 24 Hour Vital Signs Date Time Temp Pulse Resp B/P (MAP) Pulse Ox O2 Delivery O2 Flow Rate FiO2 08/21/19 12:00 97 08/21/19 11:00 100 18 126/56 (79) 90 08/21/19 10:29 104 25 94 Venturi Mask 10.0 45 103 22 86 08/21/19 10:00 101 18 97/65 (76) 94 08/21/19 09:00 99 26 105/60 (75) 95 08/21/19 08:00 99 08/21/19 08:00 Nasal Cannula 4.0 Nasal Cannula 4.0 08/21/19 08:00 99.3 101 20 97/57 (70) 96 08/21/19 07:14 97 22 93 Nasal Cannula 3.0 32 95 20 94 08/21/19 07:00 94 24 112/65 (81) 100 08/21/19 06:55 94 08/21/19 06:54 94 Nasal Cannula 3.0 32 08/21/19 06:35 4.0 08/21/19 06:00 50 08/21/19 06:00 91 16 103/63 (76) 98 08/21/19 05:37 98 14 97 Full Face 30 08/21/19 05:00 50 08/21/19 05:00 100 18 90/55 (67) 100 08/21/19 04:00 98.6 96 21 94/57 (69) 94 08/21/19 04:00 Nasal Cannula 4.0 Nasal Cannula 4.0 08/21/19 04:00 95 08/21/19 04:00 4.0 08/21/19 03:45 50 08/21/19 03:27 96 20 100 Nasal Cannula 3.0 32 91 20 95 08/21/19 03:00 50 08/21/19 03:00 91 18 107/67 (80) 98 08/21/19 02:00 50 08/21/19 02:00 105 20 114/69 (84) 99 08/21/19 01:30 107 17 93 Full Face 50 08/21/19 01:00 50 08/21/19 01:00 103 18 111/70 (84) 94 08/21/19 00:00 110 08/21/19 00:00 99.2 110 19 105/62 (76) 93 08/21/19 00:00 Nasal Cannula 4.0 Nasal Cannula 4.0 08/20/19 23:45 111 18 92 Full Face 50 08/20/19 23:30 50 08/20/19 23:18 102 20 100 Nasal Cannula 3.0 32 100 20 99 08/20/19 23:00 97 17 109/70 (83) 95 08/20/19 22:00 105 20 114/69 (84) 99 08/20/19 21:00 109 17 106/64 (78) 93 08/20/19 20:00 106 08/20/19 20:00 Nasal Cannula 4.0 Nasal Cannula 4.0 08/20/19 20:00 4.0 08/20/19 20:00 98.8 106 25 105/71 (82) 91 08/20/19 19:48 100 Nasal Cannula 3.0 32 08/20/19 19:37 96 20 100 Nasal Cannula 3.0 32 93 20 98 08/20/19 19:00 104 24 102/75 (84) 95 08/20/19 18:00 108 17 100/56 (71) 100 08/20/19 17:00 111 25 133/78 (96) 100 08/20/19 16:00 Nasal Cannula 4.0 Nasal Cannula 4.0 08/20/19 16:00 107 25 103/60 (74) 100 08/20/19 16:00 108 08/20/19 16:00 4.0 08/20/19 15:55 100 27 100 Venturi Mask 14.0 55 99 32 99 08/20/19 15:00 101 25 112/67 (82) 95 08/20/19 14:00 105 19 102/57 (72) 98 Height (Feet): 4 Height (Inches): 10.00 Weight (Pounds): 120 Objective General Appearance: lethargic EENT: normal ENT inspection Neck: supple Cardiovascular: normal rate Respiratory/Chest: decreased breath sounds Abdomen: normal bowel sounds, non tender, soft Extremities: non-tender Laboratory Tests Test 08/21/19 04:00 08/21/19 09:24 White Blood Count 15.2 K/UL (4.8-10.8) H Red Blood Count 4.14 M/UL (4.20-5.40) L Hemoglobin 10.1 G/DL (12.0-16.0) L Hematocrit 31.2 % (37.0-47.0) L Mean Corpuscular Volume 75 FL (80-99) L Mean Corpuscular Hemoglobin 24.3 PG (27.0-31.0) L Mean Corpuscular Hemoglobin Concent 32.3 G/DL (32.0-36.0) Red Cell Distribution Width 20.2 % (11.6-14.8) H Platelet Count 289 K/UL (150-450) Mean Platelet Volume 6.2 FL (6.5-10.1) L Neutrophils (%) (Auto) 73.1 % (45.0-75.0) Lymphocytes (%) (Auto) 18.7 % (20.0-45.0) L Monocytes (%) (Auto) 6.2 % (1.0-10.0) Eosinophils (%) (Auto) 1.3 % (0.0-3.0) Basophils (%) (Auto) 0.7 % (0.0-2.0) Sodium Level 142 MMOL/L (136-145) Potassium Level 3.8 MMOL/L (3.5-5.1) Chloride Level 100 MMOL/L (98-107) Carbon Dioxide Level 36 MMOL/L (21-32) H Anion Gap 6 mmol/L (5-15) Blood Urea Nitrogen 16 mg/dL (7-18) Creatinine 0.4 MG/DL (0.55-1.30) L Estimat Glomerular Filtration Rate > 60 mL/min (>60) Glucose Level 106 MG/DL (74-106) Calcium Level 8.1 MG/DL (8.5-10.1) L Arterial Blood pH 7.477 (7.350-7.450) Arterial Blood Partial Pressure CO2 49.8 mmHg (35.0-45.0) H Arterial Blood Partial Pressure O2 45.3 mmHg (75.0-100.0) Arterial Blood HCO3 36.0 mmol/L (22.0-26.0) H Arterial Blood Oxygen Saturation 82.2 % (95-100) *L Arterial Blood Base Excess 11.0 (-2-2) *H Gerard Test Positive Current Medications Medications (Trade) Dose Ordered Sig/Sandeep Route PRN Reason Start Time Stop Time Status Last Admin Dose Admin Acetylcysteine (Mucomyst) 400 mg Q4HRT [facility] 08/16/19 11:00 09/15/19 10:59 08/21/19 10:09 Albuterol/ Ipratropium (Albuterol/ Ipratropium) 3 ml Q4HRT [facility] 08/17/19 15:00 08/22/19 14:59 08/21/19 10:09 Apixaban (Eliquis) 5 mg BID T 08/16/19 09:00 09/11/19 17:59 08/21/19 08:30 Chlorhexidine Gluconate (Debora-Hex 2%) 1 applic DAILY@1999 TOPIC 08/13/19 20:00 09/12/19 19:59 08/20/19 20:24 Divalproex Sodium (Depakote Sprinkles) 500 mg Q12HR 08/15/19 21:00 09/14/19 20:59 08/21/19 08:30 Metoclopramide HCl (Reglan) 5 mg Q6H PRN IVP Nausea & Vomiting 08/04/19 10:00 09/03/19 09:59 Pantoprazole (Protonix) 40 mg DAILY IV 08/01/19 09:00 08/31/19 08:59 08/21/19 08:31 Polyethylene Glycol (Miralax) 17 gm BEDTIME ORAL 08/20/19 21:00 09/19/19 20:59 08/20/19 20:24 Joaquina Hill M.D. Aug 21, 2019 13:19
--- NOTE | 2019-08-21 15:00 | NUR ---
NURSE NOTES: CPT DONE. SUCTIONED AND REPOSITIONED PT. SEEN NIECE AT THE BEDSIDE. WILL CONTINUE TO MONITOR.
[2019-08-21] MEDS: Cefepime HCl 1 GM in D5W 55 ML IVPB SCH (15:06)
[2019-08-21] MEDS: metroNIDAZOLE 500mg tab NG SCH ×2 (15:06→22:02)
--- NOTE | 2019-08-21 15:06 | NUR ---
RD ASSESSMENT & RECOMMENDATIONS SEE CARE ACTIVITY FOR COMPLETE ASSESSMENT DAILY ESTIMATED NEEDS: Needs based on wound, Pulmonary/ 47.6kg abw 25-30 kcals/kg 7832-0861 total kcals 1.25-2 g protein/kg 60-95 g total protein 25-30 mL/kg 4665-1936 total fluid mLs NUTRITION DIAGNOSIS: * Increased kcal/pro needs r/t wound healing as evidenced by h/o spina bifida, adm w/ full thickness wound @ sacrum and resolving pressure injury @ R-ischium. * Swallowing difficulty R/T respiratory status as evidenced by re-intubated, now extubated, on and off BIPAP, w/ an order for NGT insertion + NGT feeds. CURRENT TF:Vital 1.2 @ 50ml/hr x 24 hrs PO DIET RECOMMENDATIONS: WHEN SAFE FOR ORAL DIET-> REGULAR, texture per WEATHERIZATION ADMINISTRATOR ENTERAL NUTRITION RECOMMENDATIONS: Vital 1.2 @ 45ml/hr x 24 hrs to provide 1080ml, 1296 kcal, 81g pro, 876ml free H2O - Goal as above, rec to increase to 50ml only when tolerated at lower rate. - Water flush per MD/ HOB over 30 degrees. W/ bipap at night, would rec 12 hr daytime feeds: VITAL 1.2 goal of 90ml /hr x12 hrs, to provide same kcal/ pro as current recs. ADDITIONAL RECOMMENDATIONS: 1) Wound care: add GREGG in 4oz H2O BID via NGT Add VIT C 500mg daily 2) Maintain calibrated bed scale wts 3) NISS for BG control on TF - h/o DM 4) Monitor lytes daily, replete as needed. 5) Monitor BIPAP usage and ability to feed; consider 12 hrs daytime feeds .
--- NOTE | 2019-08-21 15:07 | NUR ---
NURSE NOTES: SEEN AND EXAMINED BY DR AARON. NEW ORDERS MADE. INFORMED RE ELEVATION OF TEMP. WILL CONTINUE TO MONITOR.
--- NOTE | 2019-08-21 16:14 | NUR ---
NURSE NOTES:WOUND CARE FOLLOW-UP NOTES: Pt noted to scratch at L upper chest causing multiple scratches with bleeding. Pt also noted to have diffused red rash R thigh. Sacral pressure injury wound moist viable with macerated borders (L)0.6cm x (W)1.2cm. No odor or exudate noted. Hyperpigmentation with Keloid scarring periwound ,Lumbar sacral areas and buttocks. An area of non-blanching erythema noted to L trochanter. Scattered areas of excoriation noted in folds of skin posterior R and L upper thighs. Both feet are externally rotated. Both heels and both lateral malleoli are pink and blanchable. All wound Tx are effective and continued as ordered. Wound prevention protocols continued as care-planned. Pt has an APM/JOSE mattress on her bed. Positioned with pillows on her side ,and with both heels floated off mattress.
--- NOTE | 2019-08-21 16:30 | NUR ---
NURSE NOTES: NOTED PT TAKING THE VENTI MASK OFF. SATING AT 70'S ON ROOM AIR. PLACED BACK THE VENTI MASK. WILL CONTINUE TO MONITOR.
[2019-08-21 16:32] LABS: APPEARANCE,URINE CLOUDY; BILIRUBIN, URINE NEGATIVE (NEGATIVE); COLOR,URINE PALE YELLOW; GLUCOSE, URINE (UA) NEGATIVE (NEGATIVE); KETONES,URINE 1+ (NEGATIVE); LEUKOCYTE ESTERASE ,URINE 3+ (NEGATIVE); NITRITE,URINE NEGATIVE (NEGATIVE); PH,URINE 8 (4.5-8.0); PROTEIN,URINE 3+ (NEGATIVE); UROBILINOGEN,URINE 1 MG/DL (0.0-1.0)
--- NOTE | 2019-08-21 18:00 | NUR ---
NURSE NOTES: SEENF FAMILY MEMBER AT THE BEDSIDE. WILL CONTINUE TO MONITOR.
--- NOTE | 2019-08-21 18:31 | Internal Med Progress Note ---
Subjective Date of Service: Aug 21, 2019 Physician Name Niraj Teixeira Attending Physician Wil Masters MD Current Medications Medications (Trade) Dose Ordered Sig/Sandeep Route PRN Reason Start Time Stop Time Status Last Admin Dose Admin Acetylcysteine (Mucomyst) 400 mg Q4HRT [facility] 08/16/19 11:00 09/15/19 10:59 08/21/19 14:17 Albuterol/ Ipratropium (Albuterol/ Ipratropium) 3 ml Q4HRT N 08/17/19 15:00 08/22/19 14:59 08/21/19 14:17 Apixaban (Eliquis) 5 mg BID NGT 08/16/19 09:00 09/11/19 17:59 08/21/19 18:17 Cefepime HCl 1 gm/ Dextrose 55 ml @ 110 mls/hr Q12H IVPB 08/21/19 15:00 08/28/19 14:59 08/21/19 15:06 Chlorhexidine Gluconate (Debora-Hex 2%) 1 applic DAILY@2000 TOPIC 08/13/19 20:00 09/12/19 19:59 08/20/19 20:24 Divalproex Sodium (Depakote Sprinkles) 500 mg Q12HR NG 08/15/19 21:00 09/14/19 20:59 08/21/19 08:30 Metoclopramide HCl (Reglan) 5 mg Q6H PRN IVP Nausea & Vomiting 08/04/19 10:00 09/03/19 09:59 Metronidazole (Flagyl) 500 mg Q8HR NG 08/21/19 14:00 08/28/19 13:59 08/21/19 15:06 Pantoprazole (Protonix) 40 mg DAILY IV 08/01/19 09:00 08/31/19 08:59 08/21/19 08:31 Polyethylene Glycol (Miralax) 17 gm BEDTIME ORAL 08/20/19 21:00 09/19/19 20:59 08/20/19 20:24 Allergies: Coded Allergies: LATEX (Verified Allergy, Severe, Rash on skin, 08/19/19) PENICILLIN G (Verified Allergy, Unknown, 12/02/18) Tolerates cabapenem, cephalosporin PENICILLINS (Unverified Allergy, Unknown, 12/02/18) ROS Limited/Unobtainable: Yes Subjective 49 YO F with pneumonia and respiratory failure. Extubated 08/11/19. Cover for Int Med-DR Masters. ICU. Back on venturi mask Objective Last Vital Signs Date Time Temp Pulse Resp B/P (MAP) Pulse Ox O2 Delivery O2 Flow Rate FiO2 08/21/19 18:00 104 23 106/63 (77) 87 08/21/19 16:00 Venturi Mask 10.0 Venturi Mask 10.0 08/21/19 16:00 97.8 08/21/19 16:00 45 Laboratory Tests Test 08/21/19 04:00 08/21/19 09:24 08/21/19 15:30 White Blood Count 15.2 K/UL (4.8-10.8) H Red Blood Count 4.14 M/UL (4.20-5.40) L Hemoglobin 10.1 G/DL (12.0-16.0) L Hematocrit 31.2 % (37.0-47.0) L Mean Corpuscular Volume 75 FL (80-99) L Mean Corpuscular Hemoglobin 24.3 PG (27.0-31.0) L Mean Corpuscular Hemoglobin Concent 32.3 G/DL (32.0-36.0) Red Cell Distribution Width 20.2 % (11.6-14.8) H Platelet Count 289 K/UL (150-450) Mean Platelet Volume 6.2 FL (6.5-10.1) L Neutrophils (%) (Auto) 73.1 % (45.0-75.0) Lymphocytes (%) (Auto) 18.7 % (20.0-45.0) L Monocytes (%) (Auto) 6.2 % (1.0-10.0) Eosinophils (%) (Auto) 1.3 % (0.0-3.0) Basophils (%) (Auto) 0.7 % (0.0-2.0) Sodium Level 142 MMOL/L (136-145) Potassium Level 3.8 MMOL/L (3.5-5.1) Chloride Level 100 MMOL/L (98-107) Carbon Dioxide Level 36 MMOL/L (21-32) H Anion Gap 6 mmol/L (5-15) Blood Urea Nitrogen 16 mg/dL (7-18) Creatinine 0.4 MG/DL (0.55-1.30) L Estimat Glomerular Filtration Rate > 60 mL/min (>60) Glucose Level 106 MG/DL (74-106) Calcium Level 8.1 MG/DL (8.5-10.1) L Arterial Blood pH 7.477 (7.350-7.450) Arterial Blood Partial Pressure CO2 49.8 mmHg (35.0-45.0) H Arterial Blood Partial Pressure O2 45.3 mmHg (75.0-100.0) Arterial Blood HCO3 36.0 mmol/L (22.0-26.0) H Arterial Blood Oxygen Saturation 82.2 % (95-100) *L Arterial Blood Base Excess 11.0 (-2-2) *H Gerard Test Positive Urine Color Pale yellow Urine Appearance Cloudy Urine pH 8 (4.5-8.0) Urine Specific [employer] [place] 1.010 (1.005-1.035) Urine Protein 3+ (NEGATIVE) H Urine Glucose (UA) Negative (NEGATIVE) Urine Ketones 1+ (NEGATIVE) H Urine Blood 5+ (NEGATIVE) H Urine Nitrite Negative (NEGATIVE) Urine Bilirubin Negative (NEGATIVE) Urine Urobilinogen 1 MG/DL (0.0-1.0) H Urine Leukocyte Esterase 3+ (NEGATIVE) H Urine RBC Tntc /HPF (0 - 2) H Urine WBC Tntc /HPF (0 - 2) H Urine Squamous Epithelial Cells Few /LPF (NONE/OCC) Urine Bacteria Many /HPF (NONE) H Intake and Output 08/20/19 08/21/19 19:00 07:00 Intake Total 325 ml 680 ml Output Total 600 ml 555 ml Balance -275 ml 125 ml Intake Free Water 50 ml 400 ml Tube Feeding 275 ml 280 ml Output Urine Total 600 ml 555 ml # Bowel Movements 1 Objective General Appearance: WD/WN, moderate distress EENT: PERRL/EOMI, normal ENT inspection Neck: non-tender, normal alignment, supple Cardiovascular: normal peripheral pulses, normal rate, regular rhythm, no gallop/murmur, no JVD Respiratory/Chest: venturi mask; crackles/rales, rhonchi - bilaterally, expiratory wheezing Abdomen: normal bowel sounds, non tender, soft, no organomegaly, no mass Skin: normal pigmentation, warm/dry Assessment/Plan Problem List: (1) Respiratory failure with hypoxia Assessment & Plan: Tolerating venturi mask. S/P extubation 08/11/19 per pulmonary=Dr Bnoilla (2) Pneumonia of both lower lobes Assessment & Plan: See ID note. S/P meropenem and zyvox. Continue cefepime and flagyl. (3) UTI (urinary tract infection) Assessment & Plan: Pseudamonas, ESBL E. Coli, and vanco resistant enterococcus. See ID note; Dr Sanabria signed off. Await new ID consult= Dr Buck/Milly. S/P meropenem, linezolid and micafugin (4) Sepsis (5) Paraplegia (6) Spina bifida Niraj Teixeira MD Aug 21, 2019 18:31
--- NOTE | 2019-08-21 18:55 | NUR ---
NURSE NOTES: BLOOD DRAWN. SENT TO LAB. SEEN PT REMOVING VENTI MASK. BROTHER AND FAMILY MEMBER SEEN AT THE BEDSIDE. WILL CONTINUE TO MONITOR.
[2019-08-21 19:03] LABS: BASOPHILS % (AUTO) 0.8 % (0.0-2.0); HEMATOCRIT 31.9 % (37.0-47.0); HEMOGLOBIN 9.7 G/DL (12.0-16.0); LYMPHOCYTES % (AUTO) 11.7 % (20.0-45.0); MEAN CORPUSCULAR VOLUME 79 FL (80-99); MONOCYTES % (AUTO) 6.5 % (1.0-10.0); NEUTROPHILS % (AUTO) 80.1 % (45.0-75.0); PLATELET COUNT 286 K/UL (150-450); RED BLOOD COUNT 4.06 M/UL (4.20-5.40); RED CELL DISTRIBUTION WIDTH 21.6 % (11.6-14.8); WHITE BLOOD COUNT 16.4 K/UL (4.8-10.8)
--- NOTE | 2019-08-21 19:22 | NUR ---
HAND-OFF: Report given to Kitty Giles RN.
--- NOTE | 2019-08-21 19:30 | NUR ---
NURSE NOTES: Received pt awake, with family at bedside , ST on the low 100s 0n the monitor. Bp stable., Febrile 100.8 f. Pt keep on taking off 02 mask , adviced pt not to removed 02 mask, but non compliant. Pts brother Quinn agreed to place pt on soft wrist restraint. Notify Md and got te order. bilateral soft wrist restrained applied for safety . Will continue to monitor.
[2019-08-21] MEDS: Dyna-Hex 2% Top Sol 2oz TOPIC SCH (20:15)
[2019-08-21] MEDS: Miralax 17gm pkt ORAL SCH (21:04)
--- NOTE | 2019-08-21 21:30 | NUR ---
NURSE NOTES: Turned q 2hrs prn with good skin care done.
--- NOTE | 2019-08-21 23:23 | NUR ---
RESPIRATORY NOTE: Pt placed on BiPAP for nightly use. Pt now on BiPAP 06/28, back up rate 14, 45%. Pt on a Full Face mask, skin intact, no redness/breakdowns noted. Foam tape applied on pt's forehead/cheeks/chin to prevent mask irritations. Pt alert/awake, follows commands. B/S guillermo. rhonchi, sxn small to moderate amounts of thick, quiroz-yellow secretions w/ occasional blood. BiPAP plugged into red outlet, alarms on & audible Pt in no apparent distress at this time. Will continue to monitor pt.
--- NOTE | 2019-08-21 23:30 | NUR ---
NURSE NOTES: Back to Bipap machine as previously ordered 06/28 45% fio2.
--- NOTE | 2019-08-21 23:35 | NUR ---
NURSE NOTES: Turned off pts feeding while on Bipap. per .
[2019-08-22] VITALS (26 sets, daily range): BP systolic 81–118; BP diastolic 43–67
--- NOTE | 2019-08-22 02:00 | NUR ---
NURSE NOTES: Pt attempted to pull out o2 mask so many times, adviced not to. Pt non compliant.
[2019-08-22] MEDS: Acetylcysteine 20% Soln 4ml HHN SCH ×6 (03:04→23:44)
[2019-08-22] MEDS: Albuterol/Ipratropium 3ml neb HHN SCH ×6 (03:04→23:44)
[2019-08-22] MEDS: Cefepime HCl 1 GM in D5W 55 ML IVPB SCH ×2 (03:14→14:39)
--- NOTE | 2019-08-22 04:00 | NUR ---
NURSE NOTES: Complete bath with bed changed done, Sacral drsg was changed.
[2019-08-22] MEDS: metroNIDAZOLE 500mg tab NG SCH ×3 (05:33→22:21)
[2019-08-22 06:27] LABS: ANION GAP 2 mmol/L (5-15); BLOOD UREA NITROGEN 17 mg/dL (7-18); CARBON DIOXIDE 37 MMOL/L (21-32); CHLORIDE 101 MMOL/L (98-107); CREATININE 0.4 MG/DL (0.55-1.30); POTASSIUM 3.6 MMOL/L (3.5-5.1); SODIUM 140 MMOL/L (136-145)
--- NOTE | 2019-08-22 06:45 | NUR ---
NURSE NOTES: Back to 40% venti mask. 02 sat >95%
--- NOTE | 2019-08-22 07:27 | NUR ---
HAND-OFF: Report given to Vanda Flores RN.
--- NOTE | 2019-08-22 07:28 | NUR ---
NURSE NOTES: Received report from [facility]. Patient awake and alert to name but confused to time, place, and purpose. Patient restless at this time. Patient on bilateral soft wrist restraints at this time and it appears to be distressing her. One restraint removed at this time as a trial. Patient denies pain. Received report that patient has temp of 100.8 overnight. Will monitor and follow up with JANET ZHANG. Patient on venturi mask with 40% FIO2. Patient has moderate thick secretions and needs to be deep suctioned frequently. Will continue to monitor and suction as needed. Patient has Nasal gastric tube that is patent, asymptomatic, and clamped at this time. Will resume tube feeding after patient completes CPT treatment. Patient has tube feeding vital AF at 50mL/hr. Patient has suprapubic catheter that is patent, asymptomatic, and draining yellow urine with sediment. Will follow up with urine culture taken yesterday. Patient has sacral old wounds and bilateral heel optifoam for protection. All wounds covered and dry/intact. Will replace dressing as needed. Patient has left upper arm PICC that is patent, asymptomatic, and saline locked at this time. Patient bed in low position with bed alarm on and call light in reach at this time. Oral care and repositioning done. Will continue to monitor.
--- NOTE | 2019-08-22 08:33 | NUR ---
RADIOLOGY DEPT., CHEST X-RAY DONE.-P.DYE
[2019-08-22] MEDS: Pantoprazole Inj IV SCH (09:10)
[2019-08-22] MEDS: Depakote 125mg Sprinkles NG SCH ×2 (09:10→20:47)
[2019-08-22] MEDS: Eliquis 5mg tablet NGT SCH ×2 (09:10→17:56)
--- NOTE | 2019-08-22 09:41 | General Progress Note ---
Assessment/Plan Problem List: (1) Spina bifida ICD Codes: Q05.9 - Spina bifida, unspecified SNOMED: 91191735 Qualifiers: Qualified Codes: Q05.4 - Unspecified spina bifida with hydrocephalus (2) Respiratory failure with hypoxia ICD Codes: J96.91 - Respiratory failure, unspecified with hypoxia SNOMED: [id number] Qualifiers: Qualified Codes: J96.21 - Acute and chronic respiratory failure with hypoxia (3) Dysphagia ICD Codes: R13.10 - Dysphagia, unspecified SNOMED: 15348992, [id number] Status: unchanged Assessment/Plan: extubated on BIPAP ppi repeat labs fu H&H stool ob neg x1 reglan family wants to transfer the patient to [facility] and refusing PEG here at [place] failed swallow eval NGTF for now will need peg but family refusing will fu Subjective ROS Limited/Unobtainable: No Allergies: Coded Allergies: LATEX (Verified Allergy, Severe, Rash on skin, 08/19/19) PENICILLIN G (Verified Allergy, Unknown, 12/02/18) Tolerates cabapenem, cephalosporin PENICILLINS (Unverified Allergy, Unknown, 12/02/18) Objective Last 24 Hour Vital Signs Date Time Temp Pulse Resp B/P (MAP) Pulse Ox O2 Delivery O2 Flow Rate FiO2 08/22/19 07:05 93 22 100 Venturi Mask 8.0 40 92 21 95 08/22/19 07:00 100 26 102/63 (76) 99 08/22/19 06:50 95 Venturi Mask 8.0 40 08/22/19 06:00 103 26 91/59 (70) 98 08/22/19 05:20 104 16 100 Full Face 45 08/22/19 05:00 99 17 91/61 (71) 98 08/22/19 04:00 Venturi Mask 10.0 Bi-pap 8.0 08/22/19 04:00 99.8 93 30 94/59 (71) 100 08/22/19 04:00 8.0 40 08/22/19 04:00 10 08/22/19 03:21 102 21 100 Full Face 45 08/22/19 03:20 102 23 100 Bi-Pap 45 08/22/19 03:04 99 23 100 Bi-Pap 45 08/22/19 03:00 102 19 97/60 (72) 100 08/22/19 02:00 100 17 90/52 (65) 08/22/19 01:00 105 19 99/61 (74) 100 08/22/19 01:00 99.7 108 18 103/52 (69) 97 08/22/19 01:00 108 19 100 Full Face 45 08/22/19 00:00 Venturi Mask 10.0 Venturi Mask 10.0 08/22/19 00:00 100.5 108 18 103/52 (69) 97 08/22/19 00:00 10.0 45 08/21/19 23:23 100 18 98 Full Face 45 08/21/19 23:22 105 22 100 Bi-Pap 45 08/21/19 23:07 95 25 99 Venturi Mask 10.0 45 08/21/19 23:00 99 21 98/72 (81) 98 08/21/19 22:00 103 26 100/58 (72) 94 08/21/19 22:00 100 24 106/60 (75) 96 08/21/19 21:00 108 23 100/58 (72) 94 08/21/19 20:00 111 08/21/19 20:00 100.8 111 25 109/68 (82) 96 08/21/19 20:00 Venturi Mask 10.0 Venturi Mask 10.0 08/21/19 20:00 10.0 45 08/21/19 19:39 101 24 100 Venturi Mask 10.0 45 08/21/19 19:24 97 Venturi Mask 10.0 45 08/21/19 19:24 100 21 97 Venturi Mask 10.0 45 08/21/19 19:00 101 17 106/63 (77) 98 08/21/19 18:00 104 23 106/63 (77) 87 08/21/19 17:00 100 25 109/63 (78) 95 08/21/19 16:00 Venturi Mask 10.0 Venturi Mask 10.0 08/21/19 16:00 97.8 105 22 108/73 (85) 98 08/21/19 16:00 105 08/21/19 16:00 10.0 45 08/21/19 15:00 104 19 106/66 (79) 100 08/21/19 14:36 104 20 94 Venturi Mask 10.0 45 105 18 90 08/21/19 14:36 104 22 94 Venturi Mask 10.0 45 08/21/19 14:00 102 22 108/70 (83) 99 08/21/19 13:00 96 21 104/63 (77) 95 08/21/19 12:00 97.7 99 19 97/60 (72) 83 08/21/19 12:00 97 08/21/19 12:00 10.0 45 08/21/19 12:00 Nasal Cannula 4.0 Nasal Cannula 4.0 08/21/19 11:00 10.0 45 08/21/19 11:00 100 18 126/56 (79) 90 08/21/19 10:29 104 25 94 Venturi Mask 10.0 45 103 22 86 08/21/19 10:00 101 18 97/65 (76) 94 Intake and Output 08/21/19 08/22/19 19:00 07:00 Intake Total 770 ml 340 ml Output Total 440 ml 680 ml Balance 330 ml -340 ml Intake Free Water 60 ml 30 ml IV Total 110 ml 110 ml Tube Feeding 600 ml 200 ml Output Urine Total 440 ml 680 ml Laboratory Tests 08/21/19 15:30: Urine Color Pale yellow, Urine Appearance Cloudy, Urine pH 8, Urine Specific [place] 1.010, Urine Protein 3+H, Urine Glucose (UA) Negative, Urine Ketones 1+H , Urine Blood 5+H, Urine Nitrite Negative, Urine Bilirubin Negative, Urine Urobilinogen 1H, Urine Leukocyte Esterase 3+H, Urine RBC TntcH, Urine WBC TntcH , Urine Squamous Epithelial Cells Few, Urine Bacteria ManyH 08/21/19 18:45: White Blood Count 16.4H, Red Blood Count 4.06L, Hemoglobin 9.7L, Hematocrit 31.9L, Mean Corpuscular Volume 79L, Mean Corpuscular Hemoglobin 24.0L, Mean Corpuscular Hemoglobin Concent 30.5L, Red Cell Distribution Width 21.6H, Platelet Count 286, Mean Platelet Volume 7.1, Neutrophils (%) (Auto) 80.1H, Lymphocytes (%) (Auto) 11.7L, Monocytes (%) (Auto) 6.5, Eosinophils (%) (Auto) 1.0, Basophils (%) (Auto) 0.8 08/22/19 05:30: Sodium Level 140, Potassium Level 3.6, Chloride Level 101, Carbon Dioxide Level 37H, Anion Gap 2L, Blood Urea Nitrogen 17, Creatinine 0.4L, Estimat Glomerular Filtration Rate > 60, Glucose Level 137H, Calcium Level 8.0L Height (Feet): 4 Height (Inches): 10.00 Weight (Pounds): 118 General Appearance: lethargic EENT: normal ENT inspection Neck: supple Cardiovascular: normal rate Respiratory/Chest: decreased breath sounds Abdomen: normal bowel sounds, non tender, soft Tim Davis MD Aug 22, 2019 09:41
--- NOTE | 2019-08-22 10:06 | NUR ---
NURSE NOTES: Spoke on the phone with Karolyn, Patient's sister, at 0945. She requested that I ask the MD to discharge the patient so that she can have an ambulance come get the patient and take her to [facility]. I notified her that I would contact the MD and have him call her. Left telephone message for Dr Teixeira to call ICU back as the family would like to speak with him at 1000. Awaiting call back. Called Karolyn back and informed her that I left a message for Dr Teixeira at [phone].
[2019-08-22] MEDS: Acetaminophen 650mg/20.3ml NG PRN (11:02)
--- NOTE | 2019-08-22 11:15 | Pulmonolgy Critical Care Note ---
Critical Care - Asmt/Plan Assessment/Plan: (1) Pneumonia of both lower lobes Assessment & Plan: VDRF, intubated 07/12/19, S/P FOB 07/12/19; Reintubated ; extubated 08/11/19 (2) Catheter-associated urinary tract infection Assessment & Plan: PsA and proteus - s/p treatment (3) Respiratory failure with hypoxia Assessment & Plan: Acute on chronic hypercapnic and hypoxemic RF 2/2 PNA Duplex neg, minimally elevated d-dimer, unlikely VTE and already on a NOAC (4) HCAP (healthcare-associated pneumonia) (5) Paraplegia (6) Sepsis (7) Suprapubic catheter (8) Restrictive lung disease due to kyphoscoliosis (9) Decubitus skin ulcer (10) Spina bifida (11) Anemia, acute (12) hx recurrent PE on eliquis Plan: * Abx per ID * Wean oxygen as tolerated, BiPAP at night * NT suctionining, VEST therapy * NGT for feeds * Not able to have video swallow now due to above and refusing even bedside PO assessment earlier * BiPAP qhs and prn * High risk for recurrent respiratory failure and reintubation and discussed with the patient's family previously * If gets reintubated, will need trach placement * Good pulmonary hygiene: duonebs and mucomyst q4 * Discussed with patient's outpatient primary, Dr. Oliveros. She had recurrent PE as outpatient. Cont eliquis 5 mg bid and monitor H/H * Assess for d/c planning to LTACH or family may take patient AMA Time Spent (Minutes): 40 - cc Critical Care - Objective Last 24 Hour Vital Signs Date Time Temp Pulse Resp B/P (MAP) Pulse Ox O2 Delivery O2 Flow Rate FiO2 08/22/19 11:00 100.3 87 19 105/66 (79) 99 08/22/19 10:00 104 26 93/52 (66) 100 08/22/19 09:00 93 20 111/66 (81) 95 08/22/19 08:00 101.1 92 21 97/55 (69) 95 08/22/19 07:05 93 22 100 Venturi Mask 8.0 40 92 21 95 08/22/19 07:00 100 26 102/63 (76) 99 08/22/19 06:50 95 Venturi Mask 8.0 40 1/31/20 06:00 103 26 91/59 (70) 98 08/22/19 05:20 104 16 100 Full Face 45 08/22/19 05:00 99 17 91/61 (71) 98 08/22/19 04:00 Venturi Mask 10.0 Bi-pap 8.0 08/22/19 04:00 99.8 93 30 94/59 (71) 100 08/22/19 04:00 8.0 40 08/22/19 04:00 10 08/22/19 03:21 102 21 100 Full Face 45 08/22/19 03:20 102 23 100 Bi-Pap 45 08/22/19 03:04 99 23 100 Bi-Pap 45 08/22/19 03:00 102 19 97/60 (72) 100 08/22/19 02:00 100 17 90/52 (65) 08/22/19 01:00 105 19 99/61 (74) 100 08/22/19 01:00 99.7 108 18 103/52 (69) 97 08/22/19 01:00 108 19 100 Full Face 45 08/22/19 00:00 Venturi Mask 10.0 Venturi Mask 10.0 08/22/19 00:00 100.5 108 18 103/52 (69) 97 08/22/19 00:00 10.0 45 08/21/19 23:23 100 18 98 Full Face 45 08/21/19 23:22 105 22 100 Bi-Pap 45 08/21/19 23:07 95 25 99 Venturi Mask 10.0 45 08/21/19 23:00 99 21 98/72 (81) 98 08/21/19 22:00 103 26 100/58 (72) 94 08/21/19 22:00 100 24 106/60 (75) 96 08/21/19 21:00 108 23 100/58 (72) 94 08/21/19 20:00 111 08/21/19 20:00 100.8 111 25 109/68 (82) 96 08/21/19 20:00 Venturi Mask 10.0 Venturi Mask 10.0 08/21/19 20:00 10.0 45 08/21/19 19:39 101 24 100 Venturi Mask 10.0 45 08/21/19 19:24 97 Venturi Mask 10.0 45 08/21/19 19:24 100 21 97 Venturi Mask 10.0 45 08/21/19 19:00 101 17 106/63 (77) 98 08/21/19 18:00 104 23 106/63 (77) 87 08/21/19 17:00 100 25 109/63 (78) 95 08/21/19 16:00 Venturi Mask 10.0 Venturi Mask 10.0 08/21/19 16:00 97.8 105 22 108/73 (85) 98 08/21/19 16:00 105 08/21/19 16:00 10.0 45 08/21/19 15:00 104 19 106/66 (79) 100 08/21/19 14:36 104 20 94 Venturi Mask 10.0 45 105 18 90 08/21/19 14:36 104 22 94 Venturi Mask 10.0 45 08/21/19 14:00 102 22 108/70 (83) 99 08/21/19 13:00 96 21 104/63 (77) 95 08/21/19 12:00 97.7 99 19 97/60 (72) 83 08/21/19 12:00 97 08/21/19 12:00 10.0 45 08/21/19 12:00 Nasal Cannula 4.0 Nasal Cannula 4.0 Status: awake HEENT: atraumatic Lungs: rhonchi Heart: HR/BP stable Abdomen: soft, non-tender Extremities: edema Micro: Microbiology Date/Time Source Procedure Growth Status 08/21/19 15:30 Sputum Induced Gram Stain - Final Resulted 08/21/19 15:30 Sputum Induced Sputum Culture Pending Resulted 08/21/19 15:30 Urine,Clean Catch Urine Culture - Preliminary Gram Negative Bacillus 1 Resulted Accucheck: 114 Critical Care - Subjective ROS Limited/Unobtainable: Yes Interval Events: Cont with thick secretions. Fevers, Abx started. pulling off oxygen and BiPAP FI02: 40 Vent Support Breath Rate: 14 Vent Support Mode: BiLevel Vent Tidal Volume: 400 Sputum Amount: Moderate PEEP: 5.0 PIP: 22 Tube Feeding Amount: 0 I&O: Intake and Output 08/21/19 08/22/19 19:00 07:00 Intake Total 770 ml 340 ml Output Total 440 ml 680 ml Balance 330 ml -340 ml Intake Free Water 60 ml 30 ml IV Total 110 ml 110 ml Tube Feeding 600 ml 200 ml Output Urine Total 440 ml 680 ml ET-Tube: 7.5 ET Position: 23 Walker Bonilla MD Aug 22, 2019 11:15
--- NOTE | 2019-08-22 11:30 | NUR ---
NURSE NOTES: Spoke with Dr Masters in person. He reported that he spoke with the patient's sister, Karolyn, regarding her concerns.
--- NOTE | 2019-08-22 12:00 | NUR ---
NURSE NOTES: Patient asleep and calm/comfortable at this time. Restraints removed at 0900. Patient showing no evidence of pulling on mask or any other tubing. Will monitor. Patient remains on venturi mask with 40% FIO2. Patient continues to have moderate thick secretions. Will continue to monitor and suction as needed. Nasal gastric tube patent, asymptomatic, and running tube feeding vital AF at 50mL/hr. Suprapubic catheter patent, asymptomatic, and draining yellow urine with sediment. All wounds covered and dry/intact. Left upper arm PICC patent, asymptomatic, and saline locked at this time. Patient bed in low position with bed alarm on and call light in reach at this time. Oral care and repositioning done. Will continue to monitor.
--- NOTE | 2019-08-22 12:05 | Diagnostic Imaging Report ---
Indication: Dyspnea Comparison: 08/18/2019 A single view chest radiograph was obtained. Findings: Cardiomegaly is present. There is an NG tube present. Right-sided HOSTAGE NEGOTIATOR shunt again noted. Mild pulmonary vascular congestion may be present but there is no change. IMPRESSION: Possible mild pulmonary vascular congestion. No change from the prior study
--- NOTE | 2019-08-22 14:00 | NUR ---
NURSE NOTES: Vital signs stable. Patient sleeping. Will continue to monitor. Addendum: 08/22/19 at 1721 by Vanda Flores RN Patient repositioned.
--- NOTE | 2019-08-22 14:36 | Internal Med Progress Note ---
Subjective Physician Name Wil Masters Attending Physician Wil Masters MD Current Medications Medications (Trade) Dose Ordered Sig/Sandeep Route PRN Reason Start Time Stop Time Status Last Admin Dose Admin Acetaminophen (Tylenol) 650 mg Q4H PRN NG Mild Pain/Temp > 100.5 08/22/19 10:30 09/21/19 10:29 08/22/19 11:02 Acetylcysteine (Mucomyst) 400 mg Q4HRT N 08/16/19 11:00 09/15/19 10:59 08/22/19 11:08 Albuterol/ Ipratropium (Albuterol/ Ipratropium) 3 ml Q4HRT N 08/17/19 15:00 08/22/19 14:59 08/22/19 11:08 Albuterol/ Ipratropium (Albuterol/ Ipratropium) 3 ml Q4HRT N 08/22/19 15:00 08/27/19 14:59 UNV Apixaban (Eliquis) 5 mg BID NGT 08/16/19 09:00 09/11/19 17:59 08/22/19 09:10 Cefepime HCl 1 gm/ Dextrose 55 ml @ 110 mls/hr Q12H IVPB 08/21/19 15:00 08/28/19 14:59 08/22/19 03:14 Chlorhexidine Gluconate (Debora-Hex 2%) 1 applic DAILY@2000 TOPIC 08/13/19 20:00 09/12/19 19:59 08/21/19 20:15 Divalproex Sodium (Depakote Sprinkles) 500 mg Q12HR NG 08/15/19 21:00 09/14/19 20:59 08/22/19 09:10 Metoclopramide HCl (Reglan) 5 mg Q6H PRN IVP Nausea & Vomiting 08/04/19 10:00 09/03/19 09:59 Metronidazole (Flagyl) 500 mg Q8HR NG 08/21/19 14:00 08/28/19 13:59 08/22/19 05:33 Pantoprazole (Protonix) 40 mg DAILY IV 08/01/19 09:00 08/31/19 08:59 08/22/19 09:10 Polyethylene Glycol (Miralax) 17 gm BEDTIME ORAL 08/20/19 21:00 09/19/19 20:59 08/21/19 21:04 Allergies: Coded Allergies: LATEX (Verified Allergy, Severe, Rash on skin, 08/19/19) PENICILLIN G (Verified Allergy, Unknown, 12/02/18) Tolerates cabapenem, cephalosporin PENICILLINS (Unverified Allergy, Unknown, 12/02/18) Subjective IN ICU, awake, responsive, able to F/U with commands. Chest congestion, WBC: 16.4. Objective Last Vital Signs Date Time Temp Pulse Resp B/P (MAP) Pulse Ox O2 Delivery O2 Flow Rate FiO2 08/22/19 14:00 92 29 107/49 (68) 97 08/22/19 13:00 98.9 08/22/19 12:00 10.0 45 08/22/19 12:00 Venturi Mask Venturi Mask Laboratory Tests Test 08/21/19 15:30 08/21/19 18:45 08/22/19 05:30 Urine Color Pale yellow Urine Appearance Cloudy Urine pH 8 (4.5-8.0) Urine Specific [place] 1.010 (1.005-1.035) Urine Protein 3+ (NEGATIVE) H Urine Glucose (UA) Negative (NEGATIVE) Urine Ketones 1+ (NEGATIVE) H Urine Blood 5+ (NEGATIVE) H Urine Nitrite Negative (NEGATIVE) Urine Bilirubin Negative (NEGATIVE) Urine Urobilinogen 1 MG/DL (0.0-1.0) H Urine Leukocyte Esterase 3+ (NEGATIVE) H Urine RBC Tntc /HPF (0 - 2) H Urine WBC Tntc /HPF (0 - 2) H Urine Squamous Epithelial Cells Few /LPF (NONE/OCC) Urine Bacteria Many /HPF (NONE) H White Blood Count 16.4 K/UL (4.8-10.8) H Red Blood Count 4.06 M/UL (4.20-5.40) L Hemoglobin 9.7 G/DL (12.0-16.0) L Hematocrit 31.9 % (37.0-47.0) L Mean Corpuscular Volume 79 FL (80-99) L Mean Corpuscular Hemoglobin 24.0 PG (27.0-31.0) L Mean Corpuscular Hemoglobin Concent 30.5 G/DL (32.0-36.0) L Red Cell Distribution Width 21.6 % (11.6-14.8) H Platelet Count 286 K/UL (150-450) Mean Platelet Volume 7.1 FL (6.5-10.1) Neutrophils (%) (Auto) 80.1 % (45.0-75.0) H Lymphocytes (%) (Auto) 11.7 % (20.0-45.0) L Monocytes (%) (Auto) 6.5 % (1.0-10.0) Eosinophils (%) (Auto) 1.0 % (0.0-3.0) Basophils (%) (Auto) 0.8 % (0.0-2.0) Sodium Level 140 MMOL/L (136-145) Potassium Level 3.6 MMOL/L (3.5-5.1) Chloride Level 101 MMOL/L (98-107) Carbon Dioxide Level 37 MMOL/L (21-32) H Anion Gap 2 mmol/L (5-15) L Blood Urea Nitrogen 17 mg/dL (7-18) Creatinine 0.4 MG/DL (0.55-1.30) L Estimat Glomerular Filtration Rate > 60 mL/min (>60) Glucose Level 137 MG/DL (74-106) H Calcium Level 8.0 MG/DL (8.5-10.1) L Microbiology Date/Time Source Procedure Growth Status 08/21/19 15:30 Sputum Induced Gram Stain - Final Resulted 08/21/19 15:30 Sputum Induced Sputum Culture Pending Resulted 08/21/19 15:30 Urine,Clean Catch Urine Culture - Preliminary Gram Negative Bacillus 1 Resulted Intake and Output 08/21/19 08/22/19 19:00 07:00 Intake Total 770 ml 340 ml Output Total 440 ml 680 ml Balance 330 ml -340 ml Intake Free Water 60 ml 30 ml IV Total 110 ml 110 ml Tube Feeding 600 ml 200 ml Output Urine Total 440 ml 680 ml Objective General: Awake, More responsive, talking.. HEENT: NCAT, sclera anicteric, PERRL, EOMI,. Neck: Supple, no significant jugular venous distention, Lungs: Decreased air at the bases, mild chest congestion, scattered rhonchi, no Wheeze. Heart: Regular rate and rhythm, normal S1/S2, no murmurs. Abdomen: soft, nontender, nondistended. Normoactive bowel sounds, morbid obesity. / Rectal: suprapubic cath. Extremities: No Cyanosis , clubbing or edema. Left upper extremity PICC line Neuro: A&O x 3, Able to move Upper extremities, unable to move LE's. Paraplegic. Skin: warm, no rash. Assessment/Plan Assessment/Plan 1) Pneumonia of both lower lobes Assessment & Plan: VDRF, intubated 07/12/19, S/P FOB 07/12/19; Reintubated (2) Catheter-associated urinary tract infection Assessment & Plan: PsA and proteus (3) Acute Respiratory failure with hypoxia Assessment & Plan: Acute on chronic hypercapnic and hypoxemic RF 2/2 PNA VDRF as able Duplex neg, minimally elevated d-dimer, unlikely VTE On Eliquis. (4) HCAP (healthcare-associated pneumonia) (5) Paraplegia (6) Sepsis (7) Suprapubic catheter (8) Restrictive lung disease due to kyphoscoliosis (9) Decubitus skin ulcer (10) Spina bifida (11) gram-negative bacilli UTI. Plan: * Monitor Labs and cultures * F/U tracheal aspirate * Good pulmonary hygiene: Duonebs therapy. * given the recurrent nature of this patient's respiratory failure, if not able to get extubated quickly, may need tracheostomy * Tolerated tube feeding at 45 cc/hr * Discussed with sister over the phone with regard to transfer to [facility] for continued medical therapy. * Abx: Cefepime IV and Flagyl IV On Eliquis. Wil Masters MD Aug 22, 2019 14:36
--- NOTE | 2019-08-22 14:53 | Infectious Diseases Prog Note ---
Assessment/Plan Assessment/Plan Assessment: Recurrent aspiration pneumonia -08/22 cXR: Possible mild pulmonary vascular congestion. No change from the prior study -08/21 sp cx p -08/18 cXR: The lungs remain clear. There may be some minimal basal atelectasis -08/14 CXR: Cardiomegaly. Mild interstitial congestion, unchanged over 3 days -07/31, 08/01 sp cx normal resp sunny -07/12 sp cx normal -07/12 SP FLEXIBLE FIBEROPTIC BRONCHOSCOPY WITH BRONCHOALVEOLAR LAVAGE AND THERAPEUTIC ASPIRATION OF MUCOUS PLUG LEFT LUNG -07/11/20 CXR: Bilateral pulmonary edema/infiltrates. Possible small pleural effusions. Fever, recurrent Leukocytosis, recurrent; increased Recurrent hypoxic respiratory failure 2ry to above -sp intubation 07/31/19 and extubation 08/11/19 -s/p intubation 07/12/19 and extubation 07/19/19 UTI , recurrent -08/21 u/a wbc tnct, nit neg, leuk large; ucx >100k GNR -08/11 ucx C. parapsilosis (colinzer) - 07/12 Ucx PsA (R Ceftazidime, levaquin; I Ciprofloxacin; otherwise S), VRE ( S Amp, linezolid) -07/11/19 u/a wbc tntc, nit neg, leuk +3; ucx PsA, ESBL E.coli, P. mirabilis S. mitis bacteremia- likely contaminant -07/28 Bcx 07/26 S. mitis; 07/29, 08/01, 08/03 Bcx neg HTN Dm2 spina bifida s/p POLISH COMPOUNDER shunt decubiti ulcers wheelchair bound/paraplegic b/l renal stents neurogenic bladder s/p suprapubic catheter recurrent UTIs Plan: -Cont Cefepime and Flagyl #2 given increased on O2 requirements and wbc -Add empiric Amikacin pending ucx given increased WBC -08/11 SP Linezolid and Meropenem #15 -08/06 SP Micafungin #4 -f/u cx -Monitor CBC/CMP, temperatures -aspiration precautions -GI, pulm f/u -speech therapy recommending PEG, family is refusing -f/u ucx, sp cx, Bcx x2 Thank you for this consultation. Will continue to follow along with you. Discussed with RN Subjective Allergies: Coded Allergies: LATEX (Verified Allergy, Severe, Rash on skin, 08/19/19) PENICILLIN G (Verified Allergy, Unknown, 12/02/18) Tolerates cabapenem, cephalosporin PENICILLINS (Unverified Allergy, Unknown, 12/02/18) Subjective Tm 101.1 wbc increased Objective Vital Signs Last 24 Hour Vital Signs Date Time Temp Pulse Resp B/P (MAP) Pulse Ox O2 Delivery O2 Flow Rate FiO2 08/22/19 14:00 92 29 107/49 (68) 97 08/22/19 13:00 98.9 94 29 85/54 (64) 93 08/22/19 12:00 10.0 45 08/22/19 12:00 97 08/22/19 12:00 99.3 98 28 85/48 (60) 66 08/22/19 12:00 Venturi Mask 10.0 Venturi Mask 10.0 08/22/19 11:32 99.3 08/22/19 11:15 88 22 100 Venturi Mask 8.0 40 87 24 100 08/22/19 11:00 100.3 87 19 105/66 (79) 99 08/22/19 10:00 104 26 93/52 (66) 100 08/22/19 09:00 93 20 111/66 (81) 95 08/22/19 08:00 10.0 45 08/22/19 08:00 Venturi Mask 10.0 Bi-pap 8.0 08/22/19 08:00 91 08/22/19 08:00 101.1 92 21 97/55 (69) 95 08/22/19 07:05 93 22 100 Venturi Mask 8.0 40 92 21 95 08/22/19 07:00 100 26 102/63 (76) 99 08/22/19 06:50 95 Venturi Mask 8.0 40 08/22/19 06:00 103 26 91/59 (70) 98 08/22/19 05:20 104 16 100 Full Face 45 08/22/19 05:00 99 17 91/61 (71) 98 08/22/19 04:00 Venturi Mask 10.0 Bi-pap 8.0 08/22/19 04:00 99.8 93 30 94/59 (71) 100 08/22/19 04:00 8.0 40 08/22/19 04:00 10 08/22/19 03:21 102 21 100 Full Face 45 08/22/19 03:20 102 23 100 Bi-Pap 45 08/22/19 03:04 99 23 100 Bi-Pap 45 08/22/19 03:00 102 19 97/60 (72) 100 08/22/19 02:00 100 17 90/52 (65) 08/22/19 01:00 105 19 99/61 (74) 100 08/22/19 01:00 99.7 108 18 103/52 (69) 97 08/22/19 01:00 108 19 100 Full Face 45 08/22/19 00:00 Venturi Mask 10.0 Venturi Mask 10.0 08/22/19 00:00 100.5 108 18 103/52 (69) 97 08/22/19 00:00 10.0 45 08/21/19 23:23 100 18 98 Full Face 45 08/21/19 23:22 105 22 100 Bi-Pap 45 08/21/19 23:07 95 25 99 Venturi Mask 10.0 45 08/21/19 23:00 99 21 98/72 (81) 98 08/21/19 22:00 103 26 100/58 (72) 94 08/21/19 22:00 100 24 106/60 (75) 96 08/21/19 21:00 108 23 100/58 (72) 94 08/21/19 20:00 111 08/21/19 20:00 100.8 111 25 109/68 (82) 96 08/21/19 20:00 Venturi Mask 10.0 Venturi Mask 10.0 08/21/19 20:00 10.0 45 08/21/19 19:39 101 24 100 Venturi Mask 10.0 45 08/21/19 19:24 97 Venturi Mask 10.0 45 08/21/19 19:24 100 21 97 Venturi Mask 10.0 45 08/21/19 19:00 101 17 106/63 (77) 98 08/21/19 18:00 104 23 106/63 (77) 87 08/21/19 17:00 100 25 109/63 (78) 95 08/21/19 16:00 Venturi Mask 10.0 Venturi Mask 10.0 08/21/19 16:00 97.8 105 22 108/73 (85) 98 08/21/19 16:00 105 08/21/19 16:00 10.0 45 08/21/19 15:00 104 19 106/66 (79) 100 Height (Feet): 4 Height (Inches): 10.00 Weight (Pounds): 118 Objective General Appearance: lethargic EENT: normal ENT inspection Neck: supple Cardiovascular: normal rate Respiratory/Chest: decreased breath sounds Abdomen: normal bowel sounds, non tender, soft Extremities: non-tender Microbiology Date/Time Source Procedure Growth Status 08/21/19 15:30 Sputum Induced Gram Stain - Final Resulted 08/21/19 15:30 Sputum Induced Sputum Culture Pending Resulted 08/21/19 15:30 Urine,Clean Catch Urine Culture - Preliminary Gram Negative Bacillus 1 Resulted Laboratory Tests Test 08/21/19 15:30 08/21/19 18:45 08/22/19 05:30 Urine Color Pale yellow Urine Appearance Cloudy Urine pH 8 (4.5-8.0) Urine Specific Citra 1.010 (1.005-1.035) Urine Protein 3+ (NEGATIVE) H Urine Glucose (UA) Negative (NEGATIVE) Urine Ketones 1+ (NEGATIVE) H Urine Blood 5+ (NEGATIVE) H Urine Nitrite Negative (NEGATIVE) Urine Bilirubin Negative (NEGATIVE) Urine Urobilinogen 1 MG/DL (0.0-1.0) H Urine Leukocyte Esterase 3+ (NEGATIVE) H Urine RBC Tntc /HPF (0 - 2) H Urine WBC Tntc /HPF (0 - 2) H Urine Squamous Epithelial Cells Few /LPF (NONE/OCC) Urine Bacteria Many /HPF (NONE) H White Blood Count 16.4 K/UL (4.8-10.8) H Red Blood Count 4.06 M/UL (4.20-5.40) L Hemoglobin 9.7 G/DL (12.0-16.0) L Hematocrit 31.9 % (37.0-47.0) L Mean Corpuscular Volume 79 FL (80-99) L Mean Corpuscular Hemoglobin 24.0 PG (27.0-31.0) L Mean Corpuscular Hemoglobin Concent 30.5 G/DL (32.0-36.0) L Red Cell Distribution Width 21.6 % (11.6-14.8) H Platelet Count 286 K/UL (150-450) Mean Platelet Volume 7.1 FL (6.5-10.1) Neutrophils (%) (Auto) 80.1 % (45.0-75.0) H Lymphocytes (%) (Auto) 11.7 % (20.0-45.0) L Monocytes (%) (Auto) 6.5 % (1.0-10.0) Eosinophils (%) (Auto) 1.0 % (0.0-3.0) Basophils (%) (Auto) 0.8 % (0.0-2.0) Sodium Level 140 MMOL/L (136-145) Potassium Level 3.6 MMOL/L (3.5-5.1) Chloride Level 101 MMOL/L (98-107) Carbon Dioxide Level 37 MMOL/L (21-32) H Anion Gap 2 mmol/L (5-15) L Blood Urea Nitrogen 17 mg/dL (7-18) Creatinine 0.4 MG/DL (0.55-1.30) L Estimat Glomerular Filtration Rate > 60 mL/min (>60) Glucose Level 137 MG/DL (74-106) H Calcium Level 8.0 MG/DL (8.5-10.1) L Current Medications Medications (Trade) Dose Ordered Sig/Sandeep Route PRN Reason Start Time Stop Time Status Last Admin Dose Admin Acetaminophen (Tylenol) 650 mg Q4H PRN NG Mild Pain/Temp > 100.5 08/22/19 10:30 09/21/19 10:29 08/22/19 11:02 Acetylcysteine (Mucomyst) 400 mg Q4HRT N 08/16/19 11:00 09/15/19 10:59 08/22/19 14:32 Albuterol/ Ipratropium (Albuterol/ Ipratropium) 3 ml Q4HRT N 08/17/19 15:00 08/22/19 14:59 08/22/19 11:08 Albuterol/ Ipratropium (Albuterol/ Ipratropium) 3 ml Q4HRT N 08/22/19 15:00 08/27/19 14:59 08/22/19 14:32 Apixaban (Eliquis) 5 mg BID NGT 08/16/19 09:00 09/11/19 17:59 08/22/19 09:10 Cefepime HCl 1 gm/ Dextrose 55 ml @ 110 mls/hr Q12H IVPB 08/21/19 15:00 08/28/19 14:59 08/22/19 14:39 Chlorhexidine Gluconate (Debora-Hex 2%) 1 applic DAILY@2000 TOPIC 08/13/19 20:00 09/12/19 19:59 08/21/19 20:15 Divalproex Sodium (Depakote Sprinkles) 500 mg Q12HR NG 08/15/19 21:00 09/14/19 20:59 08/22/19 09:10 Metoclopramide HCl (Reglan) 5 mg Q6H PRN IVP Nausea & Vomiting 08/04/19 10:00 09/03/19 09:59 Metronidazole (Flagyl) 500 mg Q8HR NG 08/21/19 14:00 08/28/19 13:59 08/22/19 05:33 Pantoprazole (Protonix) 40 mg DAILY IV 08/01/19 09:00 08/31/19 08:59 08/22/19 09:10 Polyethylene Glycol (Miralax) 17 gm BEDTIME ORAL 08/20/19 21:00 09/19/19 20:59 08/21/19 21:04 Joaquina Hill M.D. Aug 22, 2019 14:53
[2019-08-22] MEDS ORDERED: Amikacin Rx to dose MISC PRN (15:00)
--- NOTE | 2019-08-22 16:00 | NUR ---
NURSE NOTES: Patient asleep and drowsy at this time. Patient remains on venturi mask with 40% FIO2. Patient continues to have moderate thick secretions. Will continue to monitor and suction as needed. Nasal gastric tube patent, asymptomatic, and running tube feeding vital AF at 50mL/hr. Suprapubic catheter patent, asymptomatic, and draining yellow urine with sediment. All wounds covered and dry/intact. Left upper arm PICC patent, asymptomatic, and saline locked at this time. Patient bed in low position with bed alarm on and call light in reach at this time. Oral care and repositioning done. Will continue to monitor.
--- NOTE | 2019-08-22 16:08 | NUR ---
CASE MANAGEMENT:REVIEW SI;RESP FAILURE S/P EXTUBATION, SEPSIS 101.1 104 29 85/48 66% 10L VENTURI MASK IS;AMIKACIN IV X1 \DUO NEB HHN Q4HRT CEFEPIME IV Q12 HRS FLAGYL NG Q8 HRS MUCOMYST HHN Q4HRT PROTONIX IV QD ICU STATUS
[2019-08-22] MEDS ORDERED: Amikacin 700 MG in NS 110 ML IV ONE (17:00)
--- NOTE | 2019-08-22 17:21 | NUR ---
NURSE NOTES: Vital signs stable. Patient sleeping. Patient bed bath performed at this time. Patient repositioned. Will continue to monitor.
--- NOTE | 2019-08-22 18:45 | Progress Note ---
DATE: 08/22/2019 SUBJECTIVE: The patient is staying in bed. No behavior issues noted at this time. Has anxiety. Continues to pull out O2 mask. Needs redirection. MENTAL STATUS EXAMINATION: The patient is alert, the situation. Mood is anxious. Affect is flat. Thought process is concrete. Thought content, no suicidal or homicidal ideation. Cognition is impaired. ASSESSMENT: 1. Developmental disability. 2. Anxiety disorder. PLAN: 1. We will continue the Depakote to reduce the aggressive behaviors. 2. Provide the patient with reality orientation. Kobi Reyes M.D. DR: TRENTON JOB#: [id number] CC:
--- NOTE | 2019-08-22 19:30 | NUR ---
HAND-OFF: Report given to EMMA Carter. Endorsed to follow up.
--- NOTE | 2019-08-22 19:30 | NUR ---
NURSE NOTES: Received pt in no acute distress, on High Fonseca's position; awake, alert, oriented to person and place, follow commands. Calm and passive at this time with brother and father at the bedside. denies SOB , denies pains but continues on 40%Ventimask with O2 sats ranging from 98-100%. Chest sounds with scattered rhonchi and diminished air entry at the bases. NSR ont he monitor; temp 99 axillary. NGT to right nare in situ [place] sump at the level of 60cm; no TF residuals. Abdomen soft, globular. Noted SPC connected to a drain bag with yellow urine. Paraplegic. On P200 air mattress. Pt currently receiving breathing treatment. Will continue to monitor and plan of care explained to brother.
[2019-08-22] MEDS: Dyna-Hex 2% Top Sol 2oz TOPIC SCH (20:47)
[2019-08-22] MEDS: Miralax 17gm pkt ORAL SCH (20:47)
--- NOTE | 2019-08-22 22:00 | NUR ---
NURSE NOTES: Suctioned via NT by RT, obtained mod amt of white thick secretions. Continues with 40%VM, O2 sat 100%. Pt slept afterwards with HOB elevated.
[2019-08-23] VITALS (24 sets, daily range): BP systolic 98–134; BP diastolic 40–95
--- NOTE | 2019-08-23 | NUR ---
NURSE NOTES: RT placed pt on the Bipap with 12/7 and fiO2 .45. Pt unable to tolerate the whole face mask; RT changed to half face mask. Pt then started to settle down. TF turned off while on Bipap
--- NOTE | 2019-08-23 02:00 | NUR ---
NURSE NOTES: Mildly restless and keeps shaking head making the Bipap mask loose; keeps alarming. HOB elevated. No distress otherwise.
[2019-08-23] MEDS: Cefepime HCl 1 GM in D5W 55 ML IVPB SCH (03:15)
[2019-08-23] MEDS: Acetylcysteine 20% Soln 4ml HHN SCH ×6 (03:37→23:28)
[2019-08-23] MEDS: Albuterol/Ipratropium 3ml neb HHN SCH ×6 (03:37→23:27)
--- NOTE | 2019-08-23 04:00 | NUR ---
NURSE NOTES: Still no BM. Complete bed bath done. Suprapubic cath care done. Retaped NGT. Sacral dressing drya nd intact. JASON PICC line intact, dressing changed 08/20/2019.
--- NOTE | 2019-08-23 04:45 | NUR ---
NURSE NOTES: Sounds congested. Asked RT to do NT suctioning, obtained mod amt of thick white secretions. Bipap dc'd and placed pt back on 40% VM. Pt tired and fell asleep. Afebrile, BP stable
--- NOTE | 2019-08-23 06:00 | NUR ---
NURSE NOTES: sleeping, HOB at high greer's, no distress. VM at 40% continues, O2 sats 95-98%
[2019-08-23 06:03] LABS: BASOPHILS % (AUTO) 0.5 % (0.0-2.0); EOSINOPHILS % (AUTO) 1.6 % (0.0-3.0); HEMATOCRIT 28.8 % (37.0-47.0); HEMOGLOBIN 9.3 G/DL (12.0-16.0); LYMPHOCYTES % (AUTO) 11.7 % (20.0-45.0); MEAN CORPUSCULAR VOLUME 76 FL (80-99); MONOCYTES % (AUTO) 6.4 % (1.0-10.0); NEUTROPHILS % (AUTO) 79.7 % (45.0-75.0); PLATELET COUNT 240 K/UL (150-450); RED CELL DISTRIBUTION WIDTH 20.2 % (11.6-14.8); WHITE BLOOD COUNT 14.6 K/UL (4.8-10.8)
[2019-08-23] MEDS: metroNIDAZOLE 500mg tab NG SCH (06:03)
[2019-08-23 06:30] LABS: ANION GAP -1 mmol/L (5-15); BLOOD UREA NITROGEN 19 mg/dL (7-18); CALCIUM 7.9 MG/DL (8.5-10.1); CARBON DIOXIDE 39 MMOL/L (21-32); CHLORIDE 102 MMOL/L (98-107); CREATININE 0.4 MG/DL (0.55-1.30); SODIUM 140 MMOL/L (136-145)
--- NOTE | 2019-08-23 07:18 | NUR ---
HAND-OFF: Report given to Ana Diallo RN.
--- NOTE | 2019-08-23 08:30 | NUR ---
NURSE NOTES: Patient received from EMMA Carter. Patient is awake and reacts to conversation
--- NOTE | 2019-08-23 08:31 | NUR ---
NURSE NOTES: she is breathing with no distress noted on venti mask at 40%. saturations are around 94-96%, patient has a right nares NG-tube running Vital A.F. at 50ml/hr with no residual noted, she is currently having chest therapy, has loose secretions at grande of throat but has a weak cough. suctioning needed to clear airway.
[2019-08-23] MEDS: Pantoprazole Inj IV SCH (09:36)
[2019-08-23] MEDS: Eliquis 5mg tablet NGT SCH ×2 (09:36→17:55)
[2019-08-23] MEDS: Depakote 125mg Sprinkles NG SCH ×2 (09:36→20:24)
--- NOTE | 2019-08-23 09:48 | Infectious Diseases Prog Note ---
Assessment/Plan Assessment/Plan Assessment: Recurrent aspiration pneumonia -08/22 cXR: Possible mild pulmonary vascular congestion. No change from the prior study -08/21 sp cx S. aureus, GNR -08/18 cXR: The lungs remain clear. There may be some minimal basal atelectasis -08/14 CXR: Cardiomegaly. Mild interstitial congestion, unchanged over 3 days -07/31, 08/01 sp cx normal resp sunny -07/12 sp cx normal -07/12 SP FLEXIBLE FIBEROPTIC BRONCHOSCOPY WITH BRONCHOALVEOLAR LAVAGE AND THERAPEUTIC ASPIRATION OF MUCOUS PLUG LEFT LUNG -07/11/20 CXR: Bilateral pulmonary edema/infiltrates. Possible small pleural effusions. Fever, recurrent Leukocytosis, recurrent; increased Recurrent hypoxic respiratory failure 2ry to above -sp intubation 07/31/19 and extubation 08/11/19 -s/p intubation 07/12/19 and extubation 07/19/19 UTI , recurrent -08/21 u/a wbc tnct, nit neg, leuk large; ucx >100k PsA (I Cefepime, S Imipenem) -08/11 ucx C. parapsilosis (colinzer) - 07/12 Ucx PsA (R Ceftazidime, levaquin; I Ciprofloxacin; otherwise S), VRE ( S Amp, linezolid) -07/11/19 u/a wbc tntc, nit neg, leuk +3; ucx PsA, ESBL E.coli, P. mirabilis S. mitis bacteremia- likely contaminant -07/28 Bcx 07/26 S. 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 aureus PNA -08/11 SP Linezolid and Meropenem #15 -08/06 SP Micafungin #4 -f/u cx -Monitor CBC/CMP, temperatures -aspiration precautions -GI, pulm f/u -speech therapy recommending PEG, family is refusing -f/u ucx, sp cx, Bcx x2 Thank you for this consultation. Will continue to follow along with you. Discussed with RN Subjective Allergies: Coded Allergies: LATEX (Verified Allergy, Severe, Rash on skin, 08/19/19) PENICILLIN G (Verified Allergy, Unknown, 12/02/18) Tolerates cabapenem, cephalosporin PENICILLINS (Unverified Allergy, Unknown, 12/02/18) Subjective afebrile in ~24hrs wbc improving Objective Vital Signs Last 24 Hour Vital Signs Date Time Temp Pulse Resp B/P (MAP) Pulse Ox O2 Delivery O2 Flow Rate FiO2 08/23/19 09:00 91 20 102/54 (70) 94 08/23/19 08:00 8.0 40 08/23/19 08:00 95 08/23/19 08:00 Venturi Mask 8.0 Venturi Mask 8.0 08/23/19 08:00 99.9 96 19 106/57 (73) 93 08/23/19 07:24 99 Venturi Mask 8.0 40 08/23/19 07:23 90 18 100 Venturi Mask 8.0 40 88 16 99 08/23/19 07:00 87 17 104/40 (61) 95 08/23/19 06:00 84 17 103/49 (67) 97 08/23/19 05:00 90 20 101/50 (67) 89 08/23/19 04:00 Bi-pap Bi-pap 08/23/19 04:00 98.9 85 17 112/50 (70) 97 08/23/19 04:00 87 08/23/19 04:00 45 08/23/19 03:41 82 15 96 Full Face 45 08/23/19 03:38 86 19 100 Bi-Pap 45 84 15 96 08/23/19 03:00 83 16 104/52 (69) 88 08/23/19 02:00 86 15 108/53 (71) 99 08/23/19 01:48 84 15 97 Full Face 45 08/23/19 01:00 89 17 105/46 (65) 97 08/23/19 00:18 45 08/23/19 00:05 96 16 96 Full Face 45 08/23/19 00:00 99.0 97 24 104/53 (70) 100 08/23/19 00:00 97 08/23/19 00:00 Bi-pap Bi-pap 08/22/19 23:45 89 23 99 Venturi Mask 8.0 40 86 19 96 08/22/19 23:00 88 16 113/48 (69) 98 08/22/19 22:00 87 28 118/61 (80) 100 08/22/19 21:00 99.0 86 22 111/43 (65) 98 08/22/19 20:00 88 18 110/67 (81) 99 08/22/19 20:00 88 08/22/19 20:00 8.0 40 08/22/19 20:00 Venturi Mask 10.0 Venturi Mask 10.0 08/22/19 19:17 99 Venturi Mask 8.0 40 08/22/19 19:16 81 18 100 Venturi Mask 8.0 40 79 18 99 08/22/19 19:00 79 18 109/55 (73) 99 08/22/19 18:00 87 18 114/59 (77) 100 08/22/19 17:00 89 28 100/54 (69) 100 08/22/19 16:00 8.0 40 08/22/19 16:00 Venturi Mask 10.0 Venturi Mask 10.0 08/22/19 16:00 99.0 94 28 108/50 (69) 94 08/22/19 16:00 96 08/22/19 15:00 91 28 97/52 (67) 94 08/22/19 14:45 90 18 100 Venturi Mask 8.0 40 92 18 100 08/22/19 14:00 92 29 107/49 (68) 97 08/22/19 13:00 98.9 94 29 85/54 (64) 93 08/22/19 12:00 10.0 45 08/22/19 12:00 97 08/22/19 12:00 99.3 98 28 85/48 (60) 66 08/22/19 12:00 Venturi Mask 10.0 Venturi Mask 10.0 08/22/19 11:32 99.3 08/22/19 11:15 88 22 100 Venturi Mask 8.0 40 87 24 100 08/22/19 11:00 100.3 87 19 105/66 (79) 99 08/22/19 10:00 104 26 93/52 (66) 100 Height (Feet): 4 Height (Inches): 10.00 Weight (Pounds): 120 Objective General Appearance: lethargic EENT: normal ENT inspection Neck: supple Cardiovascular: normal rate Respiratory/Chest: decreased breath sounds Abdomen: normal bowel sounds, non tender, soft Extremities: non-tender Microbiology Date/Time Source Procedure Growth Status 08/21/19 15:15 Blood Blood Culture - Preliminary NO GROWTH AFTER 24 HOURS Resulted 08/21/19 15:00 Blood Blood Culture - Preliminary NO GROWTH AFTER 24 HOURS Resulted 08/21/19 15:30 Sputum Induced Gram Stain - Final Resulted 08/21/19 15:30 Sputum Culture - Preliminary Gram Negative Bacillus 1 Staphylococcus Aureus Resulted 08/21/19 15:30 Urine,Clean Catch Urine Culture - Final Pseudomonas Aeruginosa Complete Laboratory Tests Test 08/23/19 04:10 White Blood Count 14.6 K/UL (4.8-10.8) H Red Blood Count 3.80 M/UL (4.20-5.40) L Hemoglobin 9.3 G/DL (12.0-16.0) L Hematocrit 28.8 % (37.0-47.0) L Mean Corpuscular Volume 76 FL (80-99) L Mean Corpuscular Hemoglobin 24.6 PG (27.0-31.0) L Mean Corpuscular Hemoglobin Concent 32.4 G/DL (32.0-36.0) Red Cell Distribution Width 20.2 % (11.6-14.8) H Platelet Count 240 K/UL (150-450) Mean Platelet Volume 5.8 FL (6.5-10.1) L Neutrophils (%) (Auto) 79.7 % (45.0-75.0) H Lymphocytes (%) (Auto) 11.7 % (20.0-45.0) L Monocytes (%) (Auto) 6.4 % (1.0-10.0) Eosinophils (%) (Auto) 1.6 % (0.0-3.0) Basophils (%) (Auto) 0.5 % (0.0-2.0) Sodium Level 140 MMOL/L (136-145) Potassium Level 4.0 MMOL/L (3.5-5.1) Chloride Level 102 MMOL/L (98-107) Carbon Dioxide Level 39 MMOL/L (21-32) H Anion Gap -1 mmol/L (5-15) L Blood Urea Nitrogen 19 mg/dL (7-18) H Creatinine 0.4 MG/DL (0.55-1.30) L Estimat Glomerular Filtration Rate > 60 mL/min (>60) Glucose Level 123 MG/DL (74-106) H Calcium Level 7.9 MG/DL (8.5-10.1) L Random Amikacin Level Pending Current Medications Medications (Trade) Dose Ordered Sig/Sandeep Route PRN Reason Start Time Stop Time Status Last Admin Dose Admin Acetaminophen (Tylenol) 650 mg Q4H PRN NG Mild Pain/Temp > 100.5 08/22/19 10:30 09/21/19 10:29 08/22/19 11:02 Acetylcysteine (Mucomyst) 400 mg Q4HRT N 08/16/19 11:00 09/15/19 10:59 08/23/19 07:23 Albuterol/ Ipratropium (Albuterol/ Ipratropium) 3 ml Q4HRT N 08/22/19 15:00 08/27/19 14:59 08/23/19 07:23 Amikacin Protocol (Amikacin pharmacy to dose) 1 ea DAILY PRN MISC Per rx protocol 08/22/19 15:00 09/21/19 14:59 Apixaban (Eliquis) 5 mg BID NGT 08/16/19 09:00 09/11/19 17:59 08/23/19 09:36 Cefepime HCl 1 gm/ Dextrose 55 ml @ 110 mls/hr Q12H IVPB 08/21/19 15:00 08/28/19 14:59 08/23/19 03:15 Chlorhexidine Gluconate (Debora-Hex 2%) 1 applic DAILY@2000 TOPIC 08/13/19 20:00 09/12/19 19:59 08/22/19 20:47 Divalproex Sodium (Depakote Sprinkles) 500 mg Q12HR NG 08/15/19 21:00 09/14/19 20:59 08/23/19 09:36 Metoclopramide HCl (Reglan) 5 mg Q6H PRN IVP Nausea & Vomiting 08/04/19 10:00 09/03/19 09:59 Metronidazole (Flagyl) 500 mg Q8HR NG 08/21/19 14:00 08/28/19 13:59 08/23/19 06:03 Pantoprazole (Protonix) 40 mg DAILY IV 08/01/19 09:00 08/31/19 08:59 08/23/19 09:36 Polyethylene Glycol (Miralax) 17 gm BEDTIME ORAL 08/20/19 21:00 09/19/19 20:59 08/22/19 20:47 Joaquina Hill M.D. Aug 23, 2019 09:48
--- NOTE | 2019-08-23 11:30 | NUR ---
NURSE NOTES: Dr. Hill updated on patient decrease of WBC count to 14.6, no verbal orders given at this time.
[2019-08-23] MEDS: Meropenem 1 GM in NS 55 ML IVPB SCH ×2 (14:20→20:23)
[2019-08-23] MEDS: Vancomycin 750mg/D5W 275ml IVPB SCH ×2 (14:20)
--- NOTE | 2019-08-23 14:45 | NUR ---
NURSE NOTES: Chest therapy being conducted with breathing therapy, no distress noted with patient remaining awake and alert, patient remains talkative with repeating words difficult to understand.
--- NOTE | 2019-08-23 15:51 | Internal Med Progress Note ---
Subjective Date of Service: Aug 23, 2019 Physician Name Niraj Teixeira Attending Physician Wil Masters MD Current Medications Medications (Trade) Dose Ordered Sig/Sandeep Route PRN Reason Start Time Stop Time Status Last Admin Dose Admin Acetaminophen (Tylenol) 650 mg Q4H PRN NG Mild Pain/Temp > 100.5 08/22/19 10:30 09/21/19 10:29 08/22/19 11:02 Acetylcysteine (Mucomyst) 400 mg Q4HRT N 08/16/19 11:00 09/15/19 10:59 08/23/19 07:23 Albuterol/ Ipratropium (Albuterol/ Ipratropium) 3 ml Q4HRT N 08/22/19 15:00 08/27/19 14:59 08/23/19 07:23 Amikacin Protocol (Amikacin pharmacy to dose) 1 ea DAILY PRN MISC Per rx protocol 08/22/19 15:00 09/21/19 14:59 Amikacin Sulfate 700 mg/Sodium Chloride 112.8 ml @ 112.8 mls/ hr Q24H IV 08/23/19 18:00 08/30/19 17:59 Apixaban (Eliquis) 5 mg BID NGT 08/16/19 09:00 09/11/19 17:59 08/23/19 09:36 Chlorhexidine Gluconate (Debora-Hex 2%) 1 applic DAILY@2000 TOPIC 08/13/19 20:00 09/12/19 19:59 08/22/19 20:47 Divalproex Sodium (Depakote Sprinkles) 500 mg Q12HR NG 08/15/19 21:00 09/14/19 20:59 08/23/19 09:36 Meropenem 1 gm/ Sodium Chloride 55 ml @ 110 mls/hr Q8HR IVPB 08/23/19 14:00 08/28/19 13:59 08/23/19 14:20 Metoclopramide HCl (Reglan) 5 mg Q6H PRN IVP Nausea & Vomiting 08/04/19 10:00 09/03/19 09:59 Pantoprazole (Protonix) 40 mg DAILY IV 08/01/19 09:00 08/31/19 08:59 08/23/19 09:36 Polyethylene Glycol (Miralax) 17 gm BEDTIME ORAL 08/20/19 21:00 09/19/19 20:59 08/22/19 20:47 Vancomycin HCl (Vanco rx to dose) 1 ea DAILY PRN MISC Per rx protocol 08/23/19 09:45 09/22/19 09:44 Vancomycin HCl 750 mg/Dextrose 275 ml @ 183.333 mls/hr Q12H IVPB 08/23/19 12:00 08/28/19 11:59 08/23/19 14:20 Allergies: Coded Allergies: LATEX (Verified Allergy, Severe, Rash on skin, 08/19/19) PENICILLIN G (Verified Allergy, Unknown, 12/02/18) Tolerates cabapenem, cephalosporin PENICILLINS (Unverified Allergy, Unknown, 12/02/18) ROS Limited/Unobtainable: Yes Subjective 49 YO F with pneumonia and respiratory failure. Extubated 08/11/19. Cover for Int Med-DR Mastres. ICU. Back on venturi mask Objective Last Vital Signs Date Time Temp Pulse Resp B/P (MAP) Pulse Ox O2 Delivery O2 Flow Rate FiO2 08/23/19 12:00 95 08/23/19 11:00 23 117/54 (75) 98 08/23/19 08:00 8.0 40 08/23/19 08:00 Venturi Mask Venturi Mask 08/23/19 08:00 99.9 Laboratory Tests Test 08/23/19 04:10 White Blood Count 14.6 K/UL (4.8-10.8) H Red Blood Count 3.80 M/UL (4.20-5.40) L Hemoglobin 9.3 G/DL (12.0-16.0) L Hematocrit 28.8 % (37.0-47.0) L Mean Corpuscular Volume 76 FL (80-99) L Mean Corpuscular Hemoglobin 24.6 PG (27.0-31.0) L Mean Corpuscular Hemoglobin Concent 32.4 G/DL (32.0-36.0) Red Cell Distribution Width 20.2 % (11.6-14.8) H Platelet Count 240 K/UL (150-450) Mean Platelet Volume 5.8 FL (6.5-10.1) L Neutrophils (%) (Auto) 79.7 % (45.0-75.0) H Lymphocytes (%) (Auto) 11.7 % (20.0-45.0) L Monocytes (%) (Auto) 6.4 % (1.0-10.0) Eosinophils (%) (Auto) 1.6 % (0.0-3.0) Basophils (%) (Auto) 0.5 % (0.0-2.0) Sodium Level 140 MMOL/L (136-145) Potassium Level 4.0 MMOL/L (3.5-5.1) Chloride Level 102 MMOL/L (98-107) Carbon Dioxide Level 39 MMOL/L (21-32) H Anion Gap -1 mmol/L (5-15) L Blood Urea Nitrogen 19 mg/dL (7-18) H Creatinine 0.4 MG/DL (0.55-1.30) L Estimat Glomerular Filtration Rate > 60 mL/min (>60) Glucose Level 123 MG/DL (74-106) H Calcium Level 7.9 MG/DL (8.5-10.1) L Random Amikacin Level Pending Microbiology Date/Time Source Procedure Growth Status 08/21/19 15:15 Blood Blood Culture - Preliminary NO GROWTH AFTER 24 HOURS Resulted 08/21/19 15:00 Blood Blood Culture - Preliminary NO GROWTH AFTER 24 HOURS Resulted 08/21/19 15:30 Sputum Induced Gram Stain - Final Resulted 08/21/19 15:30 Sputum Culture - Preliminary Gram Negative Bacillus 1 Staphylococcus Aureus Resulted 08/21/19 15:30 Urine,Clean Catch Urine Culture - Final Pseudomonas Aeruginosa Complete Intake and Output 08/22/19 08/23/19 19:00 07:00 Intake Total 55 ml 417.8 ml Output Total 795 ml 410 ml Balance -740 ml 7.8 ml IV Total 55 ml 167.8 ml Tube Feeding 0 ml 250 ml Output Urine Total 795 ml 410 ml Objective General Appearance: WD/WN, moderate distress EENT: PERRL/EOMI, normal ENT inspection Neck: non-tender, normal alignment, supple Cardiovascular: normal peripheral pulses, normal rate, regular rhythm, no gallop/murmur, no JVD Respiratory/Chest: venturi mask; crackles/rales, rhonchi - bilaterally, expiratory wheezing Abdomen: normal bowel sounds, non tender, soft, no organomegaly, no mass Skin: normal pigmentation, warm/dry Assessment/Plan Problem List: (1) Respiratory failure with hypoxia Assessment & Plan: Tolerating venturi mask. S/P extubation 08/11/19 per pulmonary=Dr Bonilla (2) Pneumonia of both lower lobes Assessment & Plan: See ID note. S/P meropenem and zyvox. Continue cefepime and flagyl. (3) UTI (urinary tract infection) Assessment & Plan: Pseudamonas, ESBL E. Coli, and vanco resistant enterococcus. See ID note; Dr Sanabria signed off. Await new ID consult= Dr Buck/Milly. S/P meropenem, linezolid and micafugin (4) Sepsis (5) Paraplegia (6) Spina bifida Niraj Teixeira MD Aug 23, 2019 15:51
--- NOTE | 2019-08-23 16:35 | NUR ---
NURSE NOTES: Sputum inducement collected with assistance of RT at the bedside, Thick tannish sputum noted from deep suctioning. patient remained saturating around 94-98% with no distress remained alert and oriented to name and place,
[2019-08-23] MEDS ORDERED: Amikacin 700 MG in NS 110 ML IV SCH (18:00)
--- NOTE | 2019-08-23 18:35 | NUR ---
NURSE NOTES: Dr. mcneill updated family at the bedside, explained and reinforced the importance of suctioning using a nasal trumpet, patient remains calm and awake on 40% fio2 using the venti-mask. remains taking breaths with no use of accessory muscles, mena remains draining clear urine. Picc line is flushing with blood return.
--- NOTE | 2019-08-23 18:56 | Pulmonolgy Critical Care Note ---
Critical Care - Asmt/Plan Assessment/Plan: Critical Care - Asmt/Plan Assessment/Plan: (1) Pneumonia of both lower lobes Assessment & Plan: VDRF, intubated 07/12/19, S/P FOB 07/12/19; Reintubated ; extubated 08/11/19 (2) Catheter-associated urinary tract infection Assessment & Plan: PsA and proteus - s/p treatment (3) Respiratory failure with hypoxia Assessment & Plan: Acute on chronic hypercapnic and hypoxemic RF 2/2 PNA Duplex neg, minimally elevated d-dimer, unlikely VTE and already on a NOAC (4) HCAP (healthcare-associated pneumonia) (5) Paraplegia (6) Sepsis (7) Suprapubic catheter (8) Restrictive lung disease due to kyphoscoliosis (9) Decubitus skin ulcer (10) Spina bifida (11) Anemia, acute (12) hx recurrent PE on eliquis Plan: * monitor closely * NT suctionining important q 2 hours monitor for bleeding * may benefir from nasal trumpet to facilitate suctioning * NGT for feeds * ABG prn * Repeat CXR next week * BiPAP qhs and prn * High risk for recurrent respiratory failure and reintubation and discussed with the patiet's family previously * If gets reintubated, will need trach placement * holding abx * Good pulmonary hygiene: duonebs and mucomyst q4 * She had recurrent PE as outpatient. Cont eliquis 5 mg bid and monitor H/H Respiratory: CXR, ABG Cardiac: continue to monitor HR/BP Infectious Disease: check cultures, continue antibiotics Disposition: keep in ICU Time Spent (Minutes): 40 Notes Reviewed: cardio Discussed with: nurses, family member Critical Care - Objective Last 24 Hour Vital Signs Date Time Temp Pulse Resp B/P (MAP) Pulse Ox O2 Delivery O2 Flow Rate FiO2 08/23/19 18:00 98.8 104 21 105/57 (73) 96 08/23/19 17:00 108 26 117/59 (78) 96 08/23/19 16:00 Venturi Mask 8.0 Venturi Mask 8.0 08/23/19 16:00 102 24 98/48 (65) 96 08/23/19 16:00 8.0 40 08/23/19 16:00 107 08/23/19 15:02 95 20 100 Venturi Mask 8.0 40 84 18 97 08/23/19 15:00 96 24 126/73 (90) 96 08/23/19 14:00 95 25 115/95 (102) 98 08/23/19 13:00 91 21 107/44 (65) 98 08/23/19 12:00 Venturi Mask 8.0 Venturi Mask 8.0 08/23/19 12:00 8.0 40 08/23/19 12:00 100.3 93 25 112/59 (76) 98 08/23/19 12:00 95 08/23/19 11:00 91 23 117/54 (75) 98 08/23/19 10:00 100 20 105/51 (69) 94 08/23/19 09:00 91 20 102/54 (70) 94 08/23/19 08:00 8.0 40 08/23/19 08:00 95 08/23/19 08:00 Venturi Mask 8.0 Venturi Mask 8.0 08/23/19 08:00 99.9 96 19 106/57 (73) 93 08/23/19 07:24 99 Venturi Mask 8.0 40 08/23/19 07:23 90 18 100 Venturi Mask 8.0 40 88 16 99 08/23/19 07:00 87 17 104/40 (61) 95 08/23/19 06:00 84 17 103/49 (67) 97 08/23/19 05:00 90 20 101/50 (67) 89 08/23/19 04:00 Bi-pap Bi-pap 08/23/19 04:00 98.9 85 17 112/50 (70) 97 08/23/19 04:00 87 08/23/19 04:00 45 08/23/19 03:41 82 15 96 Full Face 45 08/23/19 03:38 86 19 100 Bi-Pap 45 84 15 96 08/23/19 03:00 83 16 104/52 (69) 88 08/23/19 02:00 86 15 108/53 (71) 99 08/23/19 01:48 84 15 97 Full Face 45 08/23/19 01:00 89 17 105/46 (65) 97 08/23/19 00:18 45 08/23/19 00:05 96 16 96 Full Face 45 08/23/19 00:00 99.0 97 24 104/53 (70) 100 08/23/19 00:00 97 08/23/19 00:00 Bi-pap Bi-pap 08/22/19 23:45 89 23 99 Venturi Mask 8.0 40 86 19 96 08/22/19 23:00 88 16 113/48 (69) 98 08/22/19 22:00 87 28 118/61 (80) 100 08/22/19 21:00 99.0 86 22 111/43 (65) 98 08/22/19 20:00 88 18 110/67 (81) 99 08/22/19 20:00 88 08/22/19 20:00 8.0 40 08/22/19 20:00 Venturi Mask 10.0 Venturi Mask 10.0 08/22/19 19:17 99 Venturi Mask 8.0 40 08/22/19 19:16 81 18 100 Venturi Mask 8.0 40 79 18 99 08/22/19 19:00 79 18 109/55 (73) 99 Lungs: rhonchi Heart: HR/BP stable Abdomen: soft, non-tender Extremities: edema Micro: Microbiology Date/Time Source Procedure Growth Status 08/21/19 15:15 Blood Blood Culture - Preliminary NO GROWTH AFTER 24 HOURS Resulted 08/21/19 15:00 Blood Blood Culture - Preliminary NO GROWTH AFTER 24 HOURS Resulted 08/21/19 15:30 Sputum Induced Gram Stain - Final Resulted 08/21/19 15:30 Sputum Culture - Preliminary Gram Negative Bacillus 1 Staphylococcus Aureus Resulted 08/21/19 15:30 Urine,Clean Catch Urine Culture - Final Pseudomonas Aeruginosa Complete Accucheck: 114 Critical Care - Subjective ROS Limited/Unobtainable: Yes Condition: improving FI02: 40 Vent Support Breath Rate: 14 Vent Support Mode: BiLevel Vent Tidal Volume: 400 Sputum Amount: None PEEP: 5.0 PIP: 22 Tube Feeding Amount: 50 I&O: Intake and Output 08/22/19 08/23/19 19:00 07:00 Intake Total 55 ml 417.8 ml Output Total 795 ml 410 ml Balance -740 ml 7.8 ml IV Total 55 ml 167.8 ml Tube Feeding 0 ml 250 ml Output Urine Total 795 ml 410 ml Subjective: remains extubated positive secretions cough stronger still requiring frequent suctioing q 2 hours though positive uop no fever no distress awake and follows commands wears bipap at night not requiring to the day ET-Tube: 7.5 ET Position: 23 Clara Billingsley DO Aug 23, 2019 18:56
--- NOTE | 2019-08-23 19:36 | NUR ---
HAND-OFF: Report given to EMMA Giordano and endoresed plan of care. family is at the bedside and introduced caustic cresylate shift superintendent nurse.
--- NOTE | 2019-08-23 19:45 | NUR ---
NURSE NOTES: SBAR from Perfecto CARTER. Patient is awake and alert, able to follow commands. Slightly lethargic looking at this time. Patient is on venturi catherine at 8L/40%. SpO2 92%. BP is stable at this time. RR [address] NGT with Vital AF at 50ml/hr. JASON PICC line dressing dry and intact NS TKO. Patient is hot to touch Temperature is 101.4F. Oral care performed and repositioned. Family at bedside. NAD at this moment, safety measures in place.
--- NOTE | 2019-08-23 20:00 | NUR ---
NURSE NOTES: Temp: 101.4F (ax) Cooling measures initiated lightly lethargic Nasotrumpet inserted and suctioned/thick deep secretions 40ml feed residual venturi mask 8L/[address] follows command
[2019-08-23] MEDS: Acetaminophen 650mg/20.3ml NG PRN (20:22)
--- NOTE | 2019-08-23 20:22 | NUR ---
NURSE NOTES: Tylenol given for temp of 101.4 (ax) Cooling measures ongoing VS are stable at this time
[2019-08-23] MEDS: Miralax 17gm pkt ORAL SCH (20:23)
[2019-08-23] MEDS: Dyna-Hex 2% Top Sol 2oz TOPIC SCH (20:23)
--- NOTE | 2019-08-23 22:00 | NUR ---
NURSE NOTES: Repositioned cooling measure ongoing NAD HR 106 ST Still warm to touch low grade fever continues
[2019-08-24] VITALS (24 sets, daily range): BP systolic 97–152; BP diastolic 39–113
--- NOTE | 2019-08-24 | NUR ---
NURSE NOTES: Temp is 100.8F Cooling bath given HR is NSR Repositioned cooling measure ongoing Remains on BIPAP
[2019-08-24] MEDS: Vancomycin 750mg/D5W 275ml IVPB SCH ×4 (00:44→12:47)
--- NOTE | 2019-08-24 01:30 | NUR ---
NURSE NOTES: PTT is > 150 Hold Heparin gtt for one hour per protocol
--- NOTE | 2019-08-24 02:00 | NUR ---
NURSE NOTES: Repositioned Oral care given Remains on BIPAP Spo2 95% on 50% Fio2 Feeds remain on hold during BIPAP hours.
--- NOTE | 2019-08-24 02:45 | NUR ---
NURSE NOTES: Restarted Heparin gtt at 14u/kg/hr Next PTT @ 0845
[2019-08-24] MEDS: Albuterol/Ipratropium 3ml neb HHN SCH ×6 (03:36→23:35)
[2019-08-24] MEDS: Acetylcysteine 20% Soln 4ml HHN SCH ×6 (03:36→23:35)
--- NOTE | 2019-08-24 04:00 | NUR ---
NURSE NOTES: Temperature 99.3F Sponge bath given Oral care provided SpO2 is 100% while on 40% FiO2 Wound dressing changed Blood drawn and sent to lab.
[2019-08-24] MEDS: Meropenem 1 GM in NS 55 ML IVPB SCH ×3 (05:47→21:39)
[2019-08-24 05:56] LABS: BASOPHILS % (AUTO) 0.5 % (0.0-2.0); EOSINOPHILS % (AUTO) 1.1 % (0.0-3.0); HEMATOCRIT 30.5 % (37.0-47.0); HEMOGLOBIN 9.9 G/DL (12.0-16.0); LYMPHOCYTES % (AUTO) 12.4 % (20.0-45.0); MEAN CORPUSCULAR VOLUME 76 FL (80-99); MONOCYTES % (AUTO) 6.6 % (1.0-10.0); NEUTROPHILS % (AUTO) 79.4 % (45.0-75.0); PLATELET COUNT 265 K/UL (150-450); RED BLOOD COUNT 4.02 M/UL (4.20-5.40); RED CELL DISTRIBUTION WIDTH 20.4 % (11.6-14.8); WHITE BLOOD COUNT 15.6 K/UL (4.8-10.8)
--- NOTE | 2019-08-24 06:00 | NUR ---
NURSE NOTES: Repositioned Oral care VSS Afebrile Temp is 99.0F
[2019-08-24 06:11] LABS: ANION GAP 3 mmol/L (5-15); BLOOD UREA NITROGEN 15 mg/dL (7-18); CARBON DIOXIDE 37 MMOL/L (21-32); CHLORIDE 101 MMOL/L (98-107); CREATININE 0.4 MG/DL (0.55-1.30); POTASSIUM 3.7 MMOL/L (3.5-5.1); SODIUM 141 MMOL/L (136-145)
--- NOTE | 2019-08-24 08:00 | NUR ---
NURSE NOTES: Received change of shift report from Pasquale CARTER. Pt is asleep on Bipap 12/7 settings, FIO2 35% at 99% O2Sat. NSR on binding dyer. Left upper arm double lumen PICC, TKO, patent/intact. Temp 99.3F, with cooling measures in place. NGT with feeding Vital AF currently on hold while on Bipap. Suprapubic catheter draining mildly cloudy/dark yellow urine. Skin has sacral healed scar, covered with optifoam dressing. Pt is on pressure releasing mattress. HOB at 30 degrees. Bed locked, three side rails up, and call light within reach. Will continue to monitor pt and follow plan of care per MD orders and protocol.
--- NOTE | 2019-08-24 09:41 | NUR ---
RD ASSESSMENT & RECOMMENDATIONS SEE CARE ACTIVITY FOR COMPLETE ASSESSMENT DAILY ESTIMATED NEEDS: Needs based on wound, Pulmonary/ 47.6kg abw 25-30 kcals/kg 9598-5824 total kcals 1.25-2 g protein/kg 60-95 g total protein 25-30 mL/kg 8286-8800 total fluid mLs NUTRITION DIAGNOSIS: * Increased kcal/pro needs r/t wound healing as evidenced by h/o spina bifida, adm w/ full thickness wound @ sacrum and resolving pressure injury @ R-ischium. * Swallowing difficulty R/T respiratory status as evidenced by re-intubated, now extubated, on and off BIPAP, w/ an order for NGT insertion + NGT feeds. CURRENT TF:Vital 1.2 @ 50ml/hr x 24 hrs ENTERAL NUTRITION RECOMMENDATIONS: Vital 1.2 @ 45ml/hr x 24 hrs to provide 1080ml, 1296 kcal, 81g pro, 876ml free H2O - Goal as above, rec to increase to 50ml only when tolerated at lower rate. - Water flush per MD/ HOB over 30 degrees. W/ bipap at night, would rec 12 hr daytime feeds: VITAL 1.2 goal of 90ml /hr x12 hrs, to provide same kcal/ pro as current recs. ADDITIONAL RECOMMENDATIONS: 1) Wound care: add GREGG in 4oz H2O BID via NGT Add VIT C 500mg daily 2) Maintain calibrated bed scale wts 3) NISS for BG control on TF - h/o DM 4) Monitor lytes daily, replete as needed. 5) Monitor BIPAP usage and ability to feed; consider 12 hrs daytime feeds .
[2019-08-24] MEDS: Eliquis 5mg tablet NGT SCH ×2 (09:42→17:24)
[2019-08-24] MEDS: Pantoprazole Inj IV SCH (09:42)
[2019-08-24] MEDS: Depakote 125mg Sprinkles NG SCH ×2 (09:42→21:25)
[2019-08-24] MEDS ORDERED: NS 275ml ONE (10:00)
[2019-08-24] MEDS ORDERED: Tubing IV Secondary IV ONE (10:00)
--- NOTE | 2019-08-24 10:00 | NUR ---
NURSE NOTES: Pt was cleaned and repositioned. Oral care was done and pt suctioned, output of thick/white secretions. AM meds were administered. Pt has CPT vest for Q4 hour therapy by RT per MD order. VS remain stable. Pt is resting in no apparent distress.
--- NOTE | 2019-08-24 12:00 | NUR ---
NURSE NOTES: VS remain stable. Pt is now on Venturi mask at 8L with 98% O2Sat and no respiratory distress noted. Pt was repositioned and oral care was done. Pt is tolerating NGT feeding with no noted residual.
--- NOTE | 2019-08-24 14:00 | NUR ---
NURSE NOTES: Pt's family is now at bedside, visiting pt. VS remain stable. Suprapubic catheter continues to drain mildly cloudy/dark yellow urine.
--- NOTE | 2019-08-24 15:18 | Internal Med Progress Note ---
Subjective Date of Service: Aug 24, 2019 Physician Name Niraj Teixeira Attending Physician Wil Masters MD Current Medications Medications (Trade) Dose Ordered Sig/Sandeep Route PRN Reason Start Time Stop Time Status Last Admin Dose Admin Acetaminophen (Tylenol) 650 mg Q4H PRN NG Mild Pain/Temp > 100.5 08/22/19 10:30 09/21/19 10:29 08/23/19 20:22 Acetylcysteine (Mucomyst) 400 mg Q4HRT N 08/16/19 11:00 09/15/19 10:59 08/24/19 11:49 Albuterol/ Ipratropium (Albuterol/ Ipratropium) 3 ml Q4HRT N 08/22/19 15:00 08/27/19 14:59 08/24/19 11:49 Amikacin Protocol (Amikacin pharmacy to dose) 1 ea DAILY PRN MISC Per rx protocol 08/22/19 15:00 09/21/19 14:59 Amikacin Sulfate 700 mg/Sodium Chloride 112.8 ml @ 112.8 mls/ hr Q24H IV 08/24/19 18:00 08/31/19 17:59 Apixaban (Eliquis) 5 mg BID NGT 08/16/19 09:00 09/11/19 17:59 08/24/19 09:42 Chlorhexidine Gluconate (Debora-Hex 2%) 1 applic DAILY@2000 TOPIC 08/13/19 20:00 09/12/19 19:59 08/23/19 20:23 Divalproex Sodium (Depakote Sprinkles) 500 mg Q12HR NG 08/15/19 21:00 09/14/19 20:59 08/24/19 09:42 Meropenem 1 gm/ Sodium Chloride 55 ml @ 110 mls/hr Q8HR IVPB 08/23/19 14:00 08/28/19 13:59 08/24/19 12:47 Metoclopramide HCl (Reglan) 5 mg Q6H PRN IVP Nausea & Vomiting 08/04/19 10:00 09/03/19 09:59 Pantoprazole (Protonix) 40 mg DAILY IV 08/01/19 09:00 08/31/19 08:59 08/24/19 09:42 Polyethylene Glycol (Miralax) 17 gm BEDTIME ORAL 08/20/19 21:00 09/19/19 20:59 08/23/19 20:23 Vancomycin HCl (Vanco rx to dose) 1 ea DAILY PRN MISC Per rx protocol 08/23/19 09:45 09/22/19 09:44 Vancomycin HCl 750 mg/Dextrose 275 ml @ 183.333 mls/hr Q12H IVPB 08/23/19 12:00 08/28/19 11:59 08/24/19 12:47 Allergies: Coded Allergies: LATEX (Verified Allergy, Severe, Rash on skin, 08/19/19) PENICILLIN G (Verified Allergy, Unknown, 12/02/18) Tolerates cabapenem, cephalosporin PENICILLINS (Unverified Allergy, Unknown, 12/02/18) ROS Limited/Unobtainable: Yes Subjective 49 YO F with pneumonia and respiratory failure. Extubated 08/11/19. Cover for Int Med-DR Masters. ICU. On BIPAP Objective Last Vital Signs Date Time Temp Pulse Resp B/P (MAP) Pulse Ox O2 Delivery O2 Flow Rate FiO2 08/24/19 15:00 95 22 97/58 (71) 90 08/24/19 12:00 Bi-pap Bi-pap 08/24/19 12:00 8.0 40 08/24/19 08:00 99.3 Laboratory Tests Test 08/24/19 04:40 08/24/19 08:19 White Blood Count 15.6 K/UL (4.8-10.8) H Red Blood Count 4.02 M/UL (4.20-5.40) L Hemoglobin 9.9 G/DL (12.0-16.0) L Hematocrit 30.5 % (37.0-47.0) L Mean Corpuscular Volume 76 FL (80-99) L Mean Corpuscular Hemoglobin 24.6 PG (27.0-31.0) L Mean Corpuscular Hemoglobin Concent 32.4 G/DL (32.0-36.0) Red Cell Distribution Width 20.4 % (11.6-14.8) H Platelet Count 265 K/UL (150-450) Mean Platelet Volume 5.9 FL (6.5-10.1) L Neutrophils (%) (Auto) 79.4 % (45.0-75.0) H Lymphocytes (%) (Auto) 12.4 % (20.0-45.0) L Monocytes (%) (Auto) 6.6 % (1.0-10.0) Eosinophils (%) (Auto) 1.1 % (0.0-3.0) Basophils (%) (Auto) 0.5 % (0.0-2.0) Sodium Level 141 MMOL/L (136-145) Potassium Level 3.7 MMOL/L (3.5-5.1) Chloride Level 101 MMOL/L (98-107) Carbon Dioxide Level 37 MMOL/L (21-32) H Anion Gap 3 mmol/L (5-15) L Blood Urea Nitrogen 15 mg/dL (7-18) Creatinine 0.4 MG/DL (0.55-1.30) L Estimat Glomerular Filtration Rate > 60 mL/min (>60) Glucose Level 122 MG/DL (74-106) H Calcium Level 8.0 MG/DL (8.5-10.1) L Arterial Blood pH 7.497 (7.350-7.450) Arterial Blood Partial Pressure CO2 46.3 mmHg (35.0-45.0) H Arterial Blood Partial Pressure O2 88.2 mmHg (75.0-100.0) Arterial Blood HCO3 35.1 mmol/L (22.0-26.0) H Arterial Blood Oxygen Saturation 96.7 % (95-100) Arterial Blood Base Excess 10.6 (-2-2) *H Gerard Test Positive Microbiology Date/Time Source Procedure Growth Status 08/22/19 11:25 Blood Blood Culture - Preliminary Gram Positive Cocci Resulted 08/22/19 10:43 Blood Blood Culture - Preliminary Gram Positive Cocci Resulted 08/21/19 15:30 Sputum Induced Gram Stain - Final Resulted 08/21/19 15:30 Sputum Culture - Preliminary Pseudomonas Aeruginosa Staphylococcus Aureus - Mrsa Resulted 08/21/19 15:30 Urine,Clean Catch Urine Culture - Final Pseudomonas Aeruginosa Complete Intake and Output 08/23/19 08/24/19 19:00 07:00 Intake Total 1403.133 ml 745 ml Output Total 840 ml 595 ml Balance 563.133 ml 150 ml Intake Free Water 310 ml 210 ml IV Total 443.133 ml 385 ml Tube Feeding 650 ml 150 ml Output Urine Total 840 ml 595 ml # Bowel Movements 1 Objective General Appearance: WD/WN, moderate distress EENT: PERRL/EOMI, normal ENT inspection Neck: non-tender, normal alignment, supple Cardiovascular: normal peripheral pulses, normal rate, regular rhythm, no gallop/murmur, no JVD Respiratory/Chest: BIPAP; crackles/rales, rhonchi - bilaterally, expiratory wheezing Abdomen: normal bowel sounds, non tender, soft, no organomegaly, no mass Skin: normal pigmentation, warm/dry Assessment/Plan Problem List: (1) Respiratory failure with hypoxia Assessment & Plan: Tolerating venturi mask. S/P extubation 08/11/19 per pulmonary=Dr Bonilla (2) Pneumonia of both lower lobes Assessment & Plan: See ID note. S/P meropenem and zyvox. Continue meropenem, amikacin and vanco. (3) UTI (urinary tract infection) Assessment & Plan: Pseudamonas, ESBL E. Coli, and vanco resistant enterococcus. See ID note; Dr Sanabria signed off. Await new ID consult= Dr Buck/Milly. S/P meropenem, linezolid and micafugin (4) Sepsis (5) Paraplegia (6) Spina bifida Niraj Teixeira MD Aug 24, 2019 15:18
--- NOTE | 2019-08-24 16:00 | NUR ---
NURSE NOTES: Pt is resting with stable VS. Pt was repositioned. Tolerating NGT feeding with no noted residual.
--- NOTE | 2019-08-24 17:48 | Pulmonolgy Critical Care Note ---
Critical Care - Asmt/Plan Assessment/Plan: Critical Care - Asmt/Plan Assessment/Plan: (1) Pneumonia of both lower lobes Assessment & Plan: VDRF, intubated 07/12/19, S/P FOB 07/12/19; Reintubated ; extubated 08/11/19 (2) Catheter-associated urinary tract infection Assessment & Plan: PsA and proteus - s/p treatment (3) Respiratory failure with hypoxia Assessment & Plan: Acute on chronic hypercapnic and hypoxemic RF 2/2 PNA Duplex neg, minimally elevated d-dimer, unlikely VTE and already on a NOAC (4) HCAP (healthcare-associated pneumonia) (5) Paraplegia (6) Sepsis (7) Suprapubic catheter (8) Restrictive lung disease due to kyphoscoliosis (9) Decubitus skin ulcer (10) Spina bifida (11) Anemia, acute (12) 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 Cont eliquis 5 mg bid and monitor H/H Respiratory: CXR, ABG Cardiac: continue to monitor HR/BP Time Spent (Minutes): 40 Notes Reviewed: clod puller, cardio Discussed with: nurses Critical Care - Objective Last 24 Hour Vital Signs Date Time Temp Pulse Resp B/P (MAP) Pulse Ox O2 Delivery O2 Flow Rate FiO2 08/24/19 16:00 Bi-pap Bi-pap 08/24/19 16:00 8.0 40 08/24/19 16:00 99.3 95 26 123/68 (86) 97 08/24/19 16:00 94 08/24/19 15:59 91 24 100 Venturi Mask 8.0 40 89 22 100 08/24/19 15:00 95 22 97/58 (71) 90 08/24/19 14:00 88 18 106/47 (66) 96 08/24/19 13:00 90 18 99/47 (64) 96 08/24/19 12:00 Bi-pap Bi-pap 08/24/19 12:00 97 08/24/19 12:00 96 20 136/66 (89) 99 08/24/19 12:00 8.0 40 08/24/19 11:49 99 26 100 Venturi Mask 8.0 40 90 26 96 08/24/19 11:00 94 24 100/75 (83) 99 08/24/19 10:00 90 19 119/62 (81) 98 08/24/19 09:00 88 23 102/59 (73) 94 08/24/19 08:00 Bi-pap Bi-pap 08/24/19 08:00 8.0 40 08/24/19 08:00 99.3 82 16 102/55 (71) 100 08/24/19 08:00 84 08/24/19 07:53 100 Bi-Pap 35 08/24/19 07:52 84 16 100 Facial 40 85 15 100 Bi-Pap 40 08/24/19 07:00 81 15 110/53 (72) 08/24/19 06:00 82 15 113/53 (73) 99 08/24/19 05:00 78 15 101/51 (68) 100 08/24/19 04:00 84 08/24/19 04:00 40 08/24/19 04:00 Bi-pap Bi-pap 08/24/19 04:00 99.3 84 15 111/48 (69) 100 08/24/19 03:36 91 16 98 Facial 40 94 15 100 40 08/24/19 03:00 86 17 107/58 (74) 100 08/24/19 02:00 86 16 100/56 (71) 93 08/24/19 01:00 90 19 104/48 (66) 96 08/24/19 01:00 82 17 100 Facial 40 08/24/19 00:00 92 08/24/19 00:00 100.8 93 18 152/113 (126) 91 08/24/19 00:00 55 08/24/19 00:00 Bi-pap Bi-pap 08/23/19 23:31 115 14 100 Facial 55 112 19 100 Bi-Pap 55 08/23/19 23:00 95 15 116/58 (77) 99 08/23/19 22:00 108 21 121/59 (79) 88 08/23/19 21:00 118 26 118/67 (84) 85 08/23/19 21:00 Bi-pap Bi-pap 08/23/19 21:00 98 16 92 Facial 55 08/23/19 21:00 45 08/23/19 20:52 100.8 08/23/19 20:07 100 Venturi Mask 8.0 40 08/23/19 20:02 120 20 100 Venturi Mask 8.0 40 113 27 99 08/23/19 20:00 Venturi Mask 8.0 Venturi Mask 8.0 08/23/19 20:00 111 08/23/19 20:00 101.4 111 22 134/72 (92) 97 08/23/19 20:00 8.0 40 08/23/19 19:00 105 25 120/60 (80) 90 08/23/19 18:00 98.8 104 21 105/57 (73) 96 Status: awake Lungs: rhonchi Heart: HR/BP stable Abdomen: soft, non-tender Extremities: edema Micro: Microbiology Date/Time Source Procedure Growth Status 08/22/19 11:25 Blood Blood Culture - Preliminary Gram Positive Cocci Resulted 08/22/19 10:43 Blood Blood Culture - Preliminary Gram Positive Cocci Resulted Accucheck: 114 Critical Care - Subjective Condition: improving FI02: 40 Vent Support Breath Rate: 14 Vent Support Mode: BiLevel Vent Tidal Volume: 400 Sputum Amount: None PEEP: 5.0 PIP: 22 Tube Feeding Amount: 50 I&O: Intake and Output 08/23/19 08/24/19 19:00 07:00 Intake Total 1403.133 ml 745 ml Output Total 840 ml 595 ml Balance 563.133 ml 150 ml Intake Free Water 310 ml 210 ml IV Total 443.133 ml 385 ml Tube Feeding 650 ml 150 ml Output Urine Total 840 ml 595 ml # Bowel Movements 1 Subjective: Nasal trumpet with improved suctioning and removal of secretions still requiring frequent suctioing q 2 hours though positive uop no fever no distress awake and follows commands wears bipap at night not requiring to the day ET-Tube: 7.5 ET Position: 23 Labs: Current Medications Medications (Trade) Dose Ordered Sig/Sandeep Route PRN Reason Start Time Stop Time Status Last Admin Dose Admin Acetaminophen (Tylenol) 650 mg Q4H PRN NG Mild Pain/Temp > 100.5 08/22/19 10:30 09/21/19 10:29 08/23/19 20:22 Acetylcysteine (Mucomyst) 400 mg Q4HRT HHN 08/16/19 11:00 09/15/19 10:59 08/24/19 16:03 Albuterol/ Ipratropium (Albuterol/ Ipratropium) 3 ml Q4HRT HHN 08/22/19 15:00 08/27/19 14:59 08/24/19 16:03 Amikacin Protocol (Amikacin pharmacy to dose) 1 ea DAILY PRN MISC Per rx protocol 08/22/19 15:00 09/21/19 14:59 Amikacin Sulfate 700 mg/Sodium Chloride 112.8 ml @ 112.8 mls/ hr Q24H IV 08/24/19 18:00 08/31/19 17:59 08/24/19 17:24 Apixaban (Eliquis) 5 mg BID NGT 08/16/19 09:00 09/11/19 17:59 08/24/19 17:24 Chlorhexidine Gluconate (Debora-Hex 2%) 1 applic DAILY@2000 TOPIC 08/13/19 20:00 09/12/19 19:59 08/23/19 20:23 Divalproex Sodium (Depakote Sprinkles) 500 mg Q12HR NG 08/15/19 21:00 09/14/19 20:59 08/24/19 09:42 Meropenem 1 gm/ Sodium Chloride 55 ml @ 110 mls/hr Q8HR IVPB 08/23/19 14:00 08/28/19 13:59 08/24/19 12:47 Metoclopramide HCl (Reglan) 5 mg Q6H PRN IVP Nausea & Vomiting 08/04/19 10:00 09/03/19 09:59 Pantoprazole (Protonix) 40 mg DAILY IV 08/01/19 09:00 08/31/19 08:59 08/24/19 09:42 Polyethylene Glycol (Miralax) 17 gm BEDTIME ORAL 08/20/19 21:00 09/19/19 20:59 08/23/19 20:23 Vancomycin HCl (Vanco rx to dose) 1 ea DAILY PRN MISC Per rx protocol 08/23/19 09:45 09/22/19 09:44 Vancomycin HCl 750 mg/Dextrose 275 ml @ 183.333 mls/hr Q12H IVPB 08/23/19 12:00 08/28/19 11:59 08/24/19 12:47 Laboratory Tests Test 08/24/19 04:40 08/24/19 08:19 White Blood Count 15.6 K/UL (4.8-10.8) H Red Blood Count 4.02 M/UL (4.20-5.40) L Hemoglobin 9.9 G/DL (12.0-16.0) L Hematocrit 30.5 % (37.0-47.0) L Mean Corpuscular Volume 76 FL (80-99) L Mean Corpuscular Hemoglobin 24.6 PG (27.0-31.0) L Mean Corpuscular Hemoglobin Concent 32.4 G/DL (32.0-36.0) Red Cell Distribution Width 20.4 % (11.6-14.8) H Platelet Count 265 K/UL (150-450) Mean Platelet Volume 5.9 FL (6.5-10.1) L Neutrophils (%) (Auto) 79.4 % (45.0-75.0) H Lymphocytes (%) (Auto) 12.4 % (20.0-45.0) L Monocytes (%) (Auto) 6.6 % (1.0-10.0) Eosinophils (%) (Auto) 1.1 % (0.0-3.0) Basophils (%) (Auto) 0.5 % (0.0-2.0) Sodium Level 141 MMOL/L (136-145) Potassium Level 3.7 MMOL/L (3.5-5.1) Chloride Level 101 MMOL/L (98-107) Carbon Dioxide Level 37 MMOL/L (21-32) H Anion Gap 3 mmol/L (5-15) L Blood Urea Nitrogen 15 mg/dL (7-18) Creatinine 0.4 MG/DL (0.55-1.30) L Estimat Glomerular Filtration Rate > 60 mL/min (>60) Glucose Level 122 MG/DL (74-106) H Calcium Level 8.0 MG/DL (8.5-10.1) L Arterial Blood pH 7.497 (7.350-7.450) Arterial Blood Partial Pressure CO2 46.3 mmHg (35.0-45.0) H Arterial Blood Partial Pressure O2 88.2 mmHg (75.0-100.0) Arterial Blood HCO3 35.1 mmol/L (22.0-26.0) H Arterial Blood Oxygen Saturation 96.7 % (95-100) Arterial Blood Base Excess 10.6 (-2-2) *H Gerard Test Positive Clara Billingsley DO Aug 24, 2019 17:48
[2019-08-24] MEDS ORDERED: Amikacin 700 MG in NS 110 ML IV SCH (18:00)
--- NOTE | 2019-08-24 18:00 | NUR ---
NURSE NOTES: Pt was cleaned and repositioned. VS remain stable. Family is now at bedside.
--- NOTE | 2019-08-24 19:24 | NUR ---
HAND-OFF: Report given to Bonita CARTER. Endorsed plan of care.
--- NOTE | 2019-08-24 19:30 | NUR ---
NURSE NOTES: Received pt awake on 40% ventimask , 02 sat 100%. NSR on the monitor, Bp stable, afebrile, tolerated NGT fdg at this time, no residuals , Pt with skin tear on her old pressure sore, ion p 200 mattress- Will continue to monitor.
[2019-08-24] MEDS: Dyna-Hex 2% Top Sol 2oz TOPIC SCH (20:22)
[2019-08-24] MEDS: Miralax 17gm pkt ORAL SCH (21:26)
--- NOTE | 2019-08-24 21:30 | NUR ---
NURSE NOTES: Turned q 2hrs PRN with good skin care done.
--- NOTE | 2019-08-24 23:20 | NUR ---
NURSE NOTES: Back to BIPAP 06/28 on 35% fio2.
[2019-08-25] VITALS (24 sets, daily range): BP systolic 81–130; BP diastolic 44–84
[2019-08-25] MEDS: Vancomycin 750mg/D5W 275ml IVPB SCH ×6 (01:06→17:07)
--- NOTE | 2019-08-25 02:00 | NUR ---
NURSE NOTES: Suctioned tn tk beige secretions lg in amt. oral care done.
[2019-08-25] MEDS: Albuterol/Ipratropium 3ml neb HHN SCH ×5 (03:08→20:03)
[2019-08-25] MEDS: Acetylcysteine 20% Soln 4ml HHN SCH ×5 (03:09→20:03)
--- NOTE | 2019-08-25 05:00 | NUR ---
NURSE NOTES: Pt had yellowish diarrhea lg in amt. Complete bed bath with bed change was done, sacral drsg was changed.
[2019-08-25 05:25] LABS: BASOPHILS % (AUTO) 0.5 % (0.0-2.0); EOSINOPHILS % (AUTO) 2.9 % (0.0-3.0); HEMATOCRIT 27.9 % (37.0-47.0); HEMOGLOBIN 9.1 G/DL (12.0-16.0); LYMPHOCYTES % (AUTO) 13.5 % (20.0-45.0); MEAN CORPUSCULAR VOLUME 75 FL (80-99); MONOCYTES % (AUTO) 6.3 % (1.0-10.0); NEUTROPHILS % (AUTO) 76.7 % (45.0-75.0); PLATELET COUNT 225 K/UL (150-450); RED BLOOD COUNT 3.71 M/UL (4.20-5.40); RED CELL DISTRIBUTION WIDTH 20.4 % (11.6-14.8); WHITE BLOOD COUNT 11.5 K/UL (4.8-10.8)
[2019-08-25] MEDS: Meropenem 1 GM in NS 55 ML IVPB SCH ×3 (05:41→20:30)
[2019-08-25 06:01] LABS: ANION GAP 5 mmol/L (5-15); BLOOD UREA NITROGEN 12 mg/dL (7-18); CARBON DIOXIDE 36 MMOL/L (21-32); CHLORIDE 103 MMOL/L (98-107); CREATININE 0.3 MG/DL (0.55-1.30); POTASSIUM 3.1 MMOL/L (3.5-5.1); SODIUM 144 MMOL/L (136-145)
--- NOTE | 2019-08-25 06:30 | NUR ---
NURSE NOTES: Fdg still on hold at this time . pt still on BIPAP
--- NOTE | 2019-08-25 07:31 | NUR ---
HAND-OFF: Report given to Vanda CARTER.
--- NOTE | 2019-08-25 07:32 | NUR ---
NURSE NOTES: Received patient from [facility]. Patient vital signs stable at this time. Patient showing sinus rhythm on the radiation monitor with rate of 80 beats per minute. Patient asleep but easily aroused and on BiPAP at this time 12 with 35%. Order is for patient to be on BiPAP at night. Will remove BiPAP when patient more awake. Patient has NGT of the right nares that is patent, asymptomatic, and clamped at this time. Patient has order for tube feeding of Vital AF at 50mL/hr. Feeding will be resumed when patient taken off BiPAP. Residual of 40mL clear/yellow tinged gastric content noted at this time. Patient has suprapubic catheter that is patent, in place, and draining straw yellow urine at this time. Patient has old wound on sacral and back that is covered with triad and optifoam with optifoam on heels for protection. All wound dressing intact and dry at this time. Patient family still requesting transfer for [facility]. WIll follow up with pillowcase sewer. Patient has potassium of 3.1 this morning. Will notify MD when they round on the patient. Oral care and repositioning done at this time. Will continue to monitor.
--- NOTE | 2019-08-25 09:00 | NUR ---
NURSE NOTES: BiPAP removed. Patient placed on venturi mask at 40% FiO2. No sign of resp distress. SpO2 95% and RR 20. Will continue to monitor. Tube feeding resumed. medication flush of 50mL given with medication. Will continue to monitor. Patient repositioned.
[2019-08-25] MEDS: Pantoprazole Inj IV SCH (09:07)
[2019-08-25] MEDS: Eliquis 5mg tablet NGT SCH ×2 (09:08→18:27)
[2019-08-25] MEDS: Depakote 125mg Sprinkles NG SCH ×2 (09:08→20:30)
--- NOTE | 2019-08-25 09:09 | General Progress Note ---
Assessment/Plan Problem List: (1) Spina bifida ICD Codes: Q05.9 - Spina bifida, unspecified SNOMED: [id number] Qualifiers: Qualified Codes: Q05.4 - Unspecified spina bifida with hydrocephalus (2) Respiratory failure with hypoxia ICD Codes: J96.91 - Respiratory failure, unspecified with hypoxia SNOMED: [id number] Qualifiers: Qualified Codes: J96.21 - Acute and chronic respiratory failure with hypoxia (3) Dysphagia ICD Codes: R13.10 - Dysphagia, unspecified SNOMED: 39448432, 474982392 Status: unchanged Assessment/Plan: extubated on BIPAP ppi repeat labs fu H&H stool ob neg x1 reglan family [facility] and refusing PEG here at [place] failed swallow eval NGTF for now will need peg but family refusing will fu Subjective ROS Limited/Unobtainable: No Allergies: Coded Allergies: LATEX (Verified Allergy, Severe, Rash on skin, 08/19/19) PENICILLIN G (Verified Allergy, Unknown, 12/02/18) Tolerates cabapenem, cephalosporin PENICILLINS (Unverified Allergy, Unknown, 12/02/18) Objective Last 24 Hour Vital Signs Date Time Temp Pulse Resp B/P (MAP) Pulse Ox O2 Delivery O2 Flow Rate FiO2 08/25/19 07:00 73 16 113/52 (72) 100 08/25/19 07:00 73 21 99 35 74 29 100 35 08/25/19 06:59 99 Bi-Pap 35 08/25/19 06:00 76 15 102/49 (66) 98 08/25/19 05:00 79 16 120/57 (78) 96 08/25/19 05:00 95 18 100 35 35 08/25/19 04:00 Bi-pap Bi-pap 08/25/19 04:00 99.2 82 17 130/58 (82) 98 08/25/19 04:00 81 20 106/65 (79) 96 08/25/19 04:00 90 08/25/19 04:00 35 08/25/19 03:08 82 20 100 Bi-Pap 35 81 20 98 08/25/19 03:08 81 18 99 Bi-Pap 35 90 18 100 35 08/25/19 03:00 82 17 130/58 (82) 98 08/25/19 02:00 83 16 119/57 (77) 95 08/25/19 01:20 89 18 99 35 35 08/25/19 01:00 92 16 111/51 (71) 91 08/25/19 00:00 Bi-pap Bi-pap 08/25/19 00:00 99.0 95 19 121/63 (82) 99 08/25/19 00:00 96 08/25/19 00:00 35 08/24/19 23:35 92 20 100 Bi-Pap 35 91 20 99 08/24/19 23:35 91 18 99 Facial 35 92 18 100 Bi-Pap 35 08/24/19 23:00 90 23 117/76 (90) 99 08/24/19 22:00 92 16 101/39 (59) 94 08/24/19 21:00 98 21 104/44 (64) 87 08/24/19 20:00 Bi-pap Bi-pap 08/24/19 20:00 98.0 103 22 128/68 (88) 93 08/24/19 20:00 8.0 40 08/24/19 20:00 88 08/24/19 19:27 91 24 100 Venturi Mask 8.0 40 92 20 100 08/24/19 19:27 100 Venturi Mask 8.0 40 08/24/19 19:00 89 23 126/56 (79) 100 08/24/19 18:00 96 23 120/97 (105) 100 08/24/19 17:00 94 18 110/55 (73) 98 08/24/19 16:00 Bi-pap Bi-pap 08/24/19 16:00 8.0 40 08/24/19 16:00 99.3 95 26 123/68 (86) 97 08/24/19 16:00 94 08/24/19 15:59 91 24 100 Venturi Mask 8.0 40 89 22 100 08/24/19 15:00 95 22 97/58 (71) 90 08/24/19 14:00 88 18 106/47 (66) 96 08/24/19 13:00 90 18 99/47 (64) 96 08/24/19 12:00 Bi-pap Bi-pap 08/24/19 12:00 97 08/24/19 12:00 99.0 96 20 136/66 (89) 99 08/24/19 12:00 8.0 40 08/24/19 11:49 99 26 100 Venturi Mask 8.0 40 90 26 96 08/24/19 11:00 94 24 100/75 (83) 99 08/24/19 10:00 90 19 119/62 (81) 98 Intake and Output 08/24/19 08/25/19 19:00 07:00 Intake Total 1389.466 ml 250 ml Output Total 485 ml 725 ml Balance 904.466 ml -475 ml Intake Free Water 200 ml IV Total 589.466 ml Tube Feeding 600 ml 250 ml Output Urine Total 485 ml 725 ml # Bowel Movements 3 3 Laboratory Tests 08/24/19 23:00: Vancomycin Level Trough 7.8 08/25/19 04:00: White Blood Count 11.5H, Red Blood Count 3.71L, Hemoglobin 9.1L, Hematocrit 27.9L, Mean Corpuscular Volume 75L, Mean Corpuscular Hemoglobin 24.7L, Mean Corpuscular Hemoglobin Concent 32.8, Red Cell Distribution Width 20.4H, Platelet Count 225, Mean Platelet Volume 5.7L, Neutrophils (%) (Auto) 76.7H, Lymphocytes (%) (Auto) 13.5L, Monocytes (%) (Auto) 6.3, Eosinophils (%) (Auto) 2.9, Basophils (%) (Auto) 0.5, Sodium Level 144, Potassium Level 3.1L, Chloride Level 103, Carbon Dioxide Level 36H, Anion Gap 5, Blood Urea Nitrogen 12, Creatinine 0.3L, Estimat Glomerular Filtration Rate > 60, Glucose Level 124H, Calcium Level 8.0L Height (Feet): 4 Height (Inches): 10.00 Weight (Pounds): 119 General Appearance: lethargic EENT: normal ENT inspection Neck: supple Cardiovascular: normal rate Respiratory/Chest: decreased breath sounds Abdomen: normal bowel sounds, non tender, soft Extremities: non-tender Tim Davis MD Aug 25, 2019 09:09
--- NOTE | 2019-08-25 09:21 | NUR ---
RADIOLOGY DEPT., CHEST X-RAY DONE.-P.DYE
--- NOTE | 2019-08-25 11:11 | NUR ---
NURSE NOTES: Notified Wilmer Coates COMMUNICATION EQUIPMENT MECHANIC that patient potassium 3.1 this morning. Received order for K-Dur 40mEq PO. Order read back, verified, and placed at this time.
--- NOTE | 2019-08-25 12:00 | NUR ---
NURSE NOTES: Patient vital signs remain stable at this time. Patient showing sinus rhythm on the traffic monitor specialist. Patient on venturi mask at 40% FiO2 at this time. Tube feeding of Vital AF at 50mL/hr on right nares NGT. Residual of 30mL noted. Will continue to monitor. Suprapubic catheter remains patent, in place, and draining straw yellow urine at this time. All wound dressing intact and dry at this time. Oral care and repositioning done at this time. Will continue to monitor.
--- NOTE | 2019-08-25 13:24 | Infectious Diseases Prog Note ---
Assessment/Plan Assessment/Plan Assessment: Sepsis Gram positive bacteremia- suspect PICC line infection -08/22 Bcx 2/4 GPC clusters Recurrent aspiration pneumonia -08/22 cXR: Possible mild pulmonary vascular congestion. No change from the prior study -08/21 sp cx S. aureus, MDR PsA (S Amikacin, Cipro/levo; R Cefepime, Meropenem) -08/18 cXR: The lungs remain clear. There may be some minimal basal atelectasis -08/14 CXR: Cardiomegaly. Mild interstitial congestion, unchanged over 3 days -07/31, 08/01 sp cx normal resp sunny -07/12 sp cx normal -07/12 SP FLEXIBLE FIBEROPTIC BRONCHOSCOPY WITH BRONCHOALVEOLAR LAVAGE AND THERAPEUTIC ASPIRATION OF MUCOUS PLUG LEFT LUNG -07/11/20 CXR: Bilateral pulmonary edema/infiltrates. Possible small pleural effusions. Fever, recurrent; improving Leukocytosis, recurrent; improving Recurrent hypoxic respiratory failure 2ry to above -sp intubation 07/31/19 and extubation 08/11/19 -s/p intubation 07/12/19 and extubation 07/19/19 UTI , recurrent -08/21 u/a wbc tnct, nit neg, leuk large; ucx >100k PsA (I Cefepime, Levaquin ; S Imipenem, Cipro) -08/11 ucx C. parapsilosis (colinzer) - 07/12 Ucx PsA (R Ceftazidime, levaquin; I Ciprofloxacin; otherwise S), VRE ( S Amp, linezolid) -07/11/19 u/a wbc tntc, nit neg, leuk +3; ucx PsA, ESBL E.coli, P. mirabilis S. mitis bacteremia- likely contaminant -07/28 Bcx 07/26 S. mitis; 07/29, 08/01, 08/03 Bcx neg HTN Dm2 spina bifida s/p [employer] shunt decubiti ulcers wheelchair bound/paraplegic b/l renal stents neurogenic bladder s/p suprapubic catheter recurrent UTIs Plan: -Continue Meropenem #09/26- -Switch Amikacin #10/27- to PO Cipro -Continue IV Vancomycin #3 for S. aureus PNA and bacteremia -08/23 SP Cefepime and Flagyl #3 -08/11 SP Linezolid and Meropenem #15 -08/06 SP Micafungin #4 -f/u cx -Monitor CBC/CMP, temperatures -aspiration precautions -GI, pulm f/u -speech therapy recommending PEG, family is refusing -f/u Bcx x2 -Bcx x2 (peripheral and pICC line) -remove PICC line Thank you for this consultation. Will continue to follow along with you. Discussed with RN Subjective Allergies: Coded Allergies: LATEX (Verified Allergy, Severe, Rash on skin, 08/19/19) PENICILLIN G (Verified Allergy, Unknown, 12/02/18) Tolerates cabapenem, cephalosporin PENICILLINS (Unverified Allergy, Unknown, 12/02/18) Subjective afebrile in >24hrs wbc improving Objective Vital Signs Last 24 Hour Vital Signs Date Time Temp Pulse Resp B/P (MAP) Pulse Ox O2 Delivery O2 Flow Rate FiO2 08/25/19 11:14 76 15 99 Venturi Mask 35 75 15 96 08/25/19 11:08 78 15 103/63 (76) 98 08/25/19 10:00 80 18 107/55 (72) 98 08/25/19 09:00 85 18 105/47 (66) 93 08/25/19 08:00 76 08/25/19 08:00 99.5 76 16 110/47 (68) 99 08/25/19 07:00 73 16 113/52 (72) 100 08/25/19 07:00 73 21 99 35 74 29 100 35 08/25/19 06:59 99 Bi-Pap 35 08/25/19 06:00 76 15 102/49 (66) 98 08/25/19 05:00 79 16 120/57 (78) 96 08/25/19 05:00 95 18 100 35 35 08/25/19 04:00 Bi-pap Bi-pap 08/25/19 04:00 99.2 82 17 130/58 (82) 98 08/25/19 04:00 81 20 106/65 (79) 96 08/25/19 04:00 90 08/25/19 04:00 35 08/25/19 03:08 82 20 100 Bi-Pap 35 81 20 98 08/25/19 03:08 81 18 99 Bi-Pap 35 90 18 100 35 08/25/19 03:00 82 17 130/58 (82) 98 08/25/19 02:00 83 16 119/57 (77) 95 08/25/19 01:20 89 18 99 35 35 08/25/19 01:00 92 16 111/51 (71) 91 08/25/19 00:00 Bi-pap Bi-pap 08/25/19 00:00 99.0 95 19 121/63 (82) 99 08/25/19 00:00 96 08/25/19 00:00 35 08/24/19 23:35 92 20 100 Bi-Pap 35 91 20 99 08/24/19 23:35 91 18 99 Facial 35 92 18 100 Bi-Pap 35 08/24/19 23:00 90 23 117/76 (90) 99 08/24/19 22:00 92 16 101/39 (59) 94 08/24/19 21:00 98 21 104/44 (64) 87 08/24/19 20:00 Bi-pap Bi-pap 08/24/19 20:00 98.0 103 22 128/68 (88) 93 08/24/19 20:00 8.0 40 08/24/19 20:00 88 08/24/19 19:27 91 24 100 Venturi Mask 8.0 40 92 20 100 08/24/19 19:27 100 Venturi Mask 8.0 40 08/24/19 19:00 89 23 126/56 (79) 100 08/24/19 18:00 96 23 120/97 (105) 100 08/24/19 17:00 94 18 110/55 (73) 98 08/24/19 16:00 Bi-pap Bi-pap 08/24/19 16:00 8.0 40 08/24/19 16:00 99.3 95 26 123/68 (86) 97 08/24/19 16:00 94 08/24/19 15:59 91 24 100 Venturi Mask 8.0 40 89 22 100 08/24/19 15:00 95 22 97/58 (71) 90 08/24/19 14:00 88 18 106/47 (66) 96 Height (Feet): 4 Height (Inches): 10.00 Weight (Pounds): 119 Objective General Appearance: lethargic EENT: normal ENT inspection Neck: supple Cardiovascular: normal rate Respiratory/Chest: decreased breath sounds Abdomen: normal bowel sounds, non tender, soft Extremities: non-tender Laboratory Tests Test 08/24/19 23:00 08/25/19 04:00 Vancomycin Level Trough 7.8 ug/mL (5.0-12.0) White Blood Count 11.5 K/UL (4.8-10.8) H Red Blood Count 3.71 M/UL (4.20-5.40) L Hemoglobin 9.1 G/DL (12.0-16.0) L Hematocrit 27.9 % (37.0-47.0) L Mean Corpuscular Volume 75 FL (80-99) L Mean Corpuscular Hemoglobin 24.7 PG (27.0-31.0) L Mean Corpuscular Hemoglobin Concent 32.8 G/DL (32.0-36.0) Red Cell Distribution Width 20.4 % (11.6-14.8) H Platelet Count 225 K/UL (150-450) Mean Platelet Volume 5.7 FL (6.5-10.1) L Neutrophils (%) (Auto) 76.7 % (45.0-75.0) H Lymphocytes (%) (Auto) 13.5 % (20.0-45.0) L Monocytes (%) (Auto) 6.3 % (1.0-10.0) Eosinophils (%) (Auto) 2.9 % (0.0-3.0) Basophils (%) (Auto) 0.5 % (0.0-2.0) Sodium Level 144 MMOL/L (136-145) Potassium Level 3.1 MMOL/L (3.5-5.1) L Chloride Level 103 MMOL/L (98-107) Carbon Dioxide Level 36 MMOL/L (21-32) H Anion Gap 5 mmol/L (5-15) Blood Urea Nitrogen 12 mg/dL (7-18) Creatinine 0.3 MG/DL (0.55-1.30) L Estimat Glomerular Filtration Rate > 60 mL/min (>60) Glucose Level 124 MG/DL (74-106) H Calcium Level 8.0 MG/DL (8.5-10.1) L Current Medications Medications (Trade) Dose Ordered Sig/Sandeep Route PRN Reason Start Time Stop Time Status Last Admin Dose Admin Acetaminophen (Tylenol) 650 mg Q4H PRN NG Mild Pain/Temp > 100.5 08/22/19 10:30 09/21/19 10:29 08/23/19 20:22 Acetylcysteine (Mucomyst) 400 mg Q4HRT N 08/16/19 11:00 09/15/19 10:59 08/25/19 11:16 Albuterol/ Ipratropium (Albuterol/ Ipratropium) 3 ml Q4HRT HHN 08/22/19 15:00 08/27/19 14:59 08/25/19 11:16 Amikacin Protocol (Amikacin pharmacy to dose) 1 ea DAILY PRN MISC Per rx protocol 08/22/19 15:00 09/21/19 14:59 Amikacin Sulfate 700 mg/Sodium Chloride 112.8 ml @ 112.8 mls/ hr Q24H IV 08/24/19 18:00 08/31/19 17:59 08/24/19 17:24 Apixaban (Eliquis) 5 mg BID NGT 08/16/19 09:00 09/11/19 17:59 08/25/19 09:08 Chlorhexidine Gluconate (Debora-Hex 2%) 1 applic DAILY@2000 TOPIC 08/13/19 20:00 09/12/19 19:59 08/24/19 20:22 Divalproex Sodium (Depakote Sprinkles) 500 mg Q12HR NG 08/15/19 21:00 09/14/19 20:59 08/25/19 09:08 Meropenem 1 gm/ Sodium Chloride 55 ml @ 110 mls/hr Q8HR IVPB 08/23/19 14:00 08/28/19 13:59 08/25/19 05:41 Metoclopramide HCl (Reglan) 5 mg Q6H PRN IVP Nausea & Vomiting 08/04/19 10:00 09/03/19 09:59 Pantoprazole (Protonix) 40 mg DAILY IV 08/01/19 09:00 08/31/19 08:59 08/25/19 09:07 Polyethylene Glycol (Miralax) 17 gm BEDTIME ORAL 08/20/19 21:00 09/19/19 20:59 08/24/19 21:26 Vancomycin HCl (Vanco rx to dose) 1 ea DAILY PRN MISC Per rx protocol 08/23/19 09:45 09/22/19 09:44 Vancomycin HCl 750 mg/Dextrose 275 ml @ 183.333 mls/hr Q8H IVPB 08/25/19 00:30 08/28/19 11:59 08/25/19 09:07 Joaquina Hill M.D. Aug 25, 2019 13:23
--- NOTE | 2019-08-25 13:55 | NUR ---
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 99.5 HR 76 RR 16 B/P 110/47 VM FIO2 35% WBC 11.5 K 3.1 CO2 36 IS: VANCO IV MEROPENEM IV CIPRO NGT PROTONIX ICU STATUS
--- NOTE | 2019-08-25 14:00 | NUR ---
NURSE NOTES: Patient vital signs stable. Patient repositioned. bed bath done at this time. Will continue to monitor.
--- NOTE | 2019-08-25 15:27 | Pulmonolgy Critical Care Note ---
Critical Care - Asmt/Plan Assessment/Plan: Pulmonary CCM Progress Note Assessment/Plan: (1) Pneumonia of both lower lobes Assessment & Plan: VDRF, intubated 07/12/19, S/P FOB 07/12/19; Reintubated ; extubated 08/11/19 (2) Catheter-associated urinary tract infection Assessment & Plan: PsA and proteus - s/p treatment (3) Respiratory failure with hypoxia Assessment & Plan: Acute on chronic hypercapnic and hypoxemic RF 2/2 PNA Duplex neg, minimally elevated d-dimer, unlikely VTE and already on a NOAC (4) HCAP (healthcare-associated pneumonia) (5) Paraplegia (6) Sepsis (7) Suprapubic catheter (8) Restrictive lung disease due to kyphoscoliosis (9) Decubitus skin ulcer (10) Spina bifida (11) Anemia, acute (12) 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 Cont eliquis 5 mg bid and monitor H/H Respiratory: CXR, ABG Cardiac: continue to monitor HR/BP Time Spent (Minutes): 40 Notes Reviewed: grab driver, cardio Discussed with: nurses Critical Care - Objective Vital Signs Noted Status: awake Lungs: occasional rhonchi Heart: HS1, HS2, RRR Abdomen: soft, non-tender Extremities: edema Micro: Microbiology Date/Time Source Procedure Growth Status 08/22/19 11:25 Blood Blood Culture - Preliminary Gram Positive Cocci Resulted 08/22/19 10:43 Blood Blood Culture - Preliminary Gram Positive Cocci Resulted Subjective: Less SOB, mproved with suctioning and removal of secretions still requiring frequent suctioing no fever no distress awake and follows commands wears bipap at night not requiring to the day ET-Tube: 7.5 ET Position: 23 Labs: Current Medications Medications (Trade) Dose Ordered Sig/Sandeep Route PRN Reason Start Time Stop Time Status Last Admin Dose Admin Acetaminophen (Tylenol) 650 mg Q4H PRN NG Mild Pain/Temp > 100.5 08/22/19 10:30 09/21/19 10:29 08/23/19 20:22 Acetylcysteine (Mucomyst) 400 mg Q4HRT [facility] 08/16/19 11:00 09/15/19 10:59 08/24/19 16:03 Albuterol/ Ipratropium (Albuterol/ Ipratropium) 3 ml Q4HRT N 08/22/19 15:00 08/27/19 14:59 08/24/19 16:03 Amikacin Protocol (Amikacin pharmacy to dose) 1 ea DAILY PRN MISC Per rx protocol 08/22/19 15:00 09/21/19 14:59 Amikacin Sulfate 700 mg/Sodium Chloride 112.8 ml @ 112.8 mls/ hr Q24H IV 08/24/19 18:00 08/31/19 17:59 08/24/19 17:24 Apixaban (Eliquis) 5 mg BID NGT 08/16/19 09:00 09/11/19 17:59 08/24/19 17:24 Chlorhexidine Gluconate (Debora-Hex 2%) 1 applic DAILY@2000 TOPIC 08/13/19 20:00 09/12/19 19:59 08/23/19 20:23 Divalproex Sodium (Depakote Sprinkles) 500 mg Q12HR NG 08/15/19 21:00 09/14/19 20:59 08/24/19 09:42 Meropenem 1 gm/ Sodium Chloride 55 ml @ 110 mls/hr Q8HR IVPB 08/23/19 14:00 08/28/19 13:59 08/24/19 12:47 Metoclopramide HCl (Reglan) 5 mg Q6H PRN IVP Nausea & Vomiting 08/04/19 10:00 09/03/19 09:59 Pantoprazole (Protonix) 40 mg DAILY IV 08/01/19 09:00 08/31/19 08:59 08/24/19 09:42 Polyethylene Glycol (Miralax) 17 gm BEDTIME ORAL 08/20/19 21:00 09/19/19 20:59 08/23/19 20:23 Vancomycin HCl (Vanco rx to dose) 1 ea DAILY PRN MISC Per rx protocol 08/23/19 09:45 09/22/19 09:44 Vancomycin HCl 750 mg/Dextrose 275 ml @ 183.333 mls/hr Q12H IVPB 08/23/19 12:00 08/28/19 11:59 08/24/19 12:47 Laboratory Tests Test 08/24/19 04:40 08/24/19 08:19 White Blood Count 15.6 K/UL (4.8-10.8) H Red Blood Count 4.02 M/UL (4.20-5.40) L Hemoglobin 9.9 G/DL (12.0-16.0) L Hematocrit 30.5 % (37.0-47.0) L Mean Corpuscular Volume 76 FL (80-99) L Mean Corpuscular Hemoglobin 24.6 PG (27.0-31.0) L Mean Corpuscular Hemoglobin Concent 32.4 G/DL (32.0-36.0) Red Cell Distribution Width 20.4 % (11.6-14.8) H Platelet Count 265 K/UL (150-450) Mean Platelet Volume 5.9 FL (6.5-10.1) L Neutrophils (%) (Auto) 79.4 % (45.0-75.0) H Lymphocytes (%) (Auto) 12.4 % (20.0-45.0) L Monocytes (%) (Auto) 6.6 % (1.0-10.0) Eosinophils (%) (Auto) 1.1 % (0.0-3.0) Basophils (%) (Auto) 0.5 % (0.0-2.0) Sodium Level 141 MMOL/L (136-145) Potassium Level 3.7 MMOL/L (3.5-5.1) Chloride Level 101 MMOL/L (98-107) Carbon Dioxide Level 37 MMOL/L (21-32) H Anion Gap 3 mmol/L (5-15) L Blood Urea Nitrogen 15 mg/dL (7-18) Creatinine 0.4 MG/DL (0.55-1.30) L Estimat Glomerular Filtration Rate > 60 mL/min (>60) Glucose Level 122 MG/DL (74-106) H Calcium Level 8.0 MG/DL (8.5-10.1) L Arterial Blood pH 7.497 (7.350-7.450) Arterial Blood Partial Pressure CO2 46.3 mmHg (35.0-45.0) H Arterial Blood Partial Pressure O2 88.2 mmHg (75.0-100.0) Arterial Blood HCO3 35.1 mmol/L (22.0-26.0) H Arterial Blood Oxygen Saturation 96.7 % (95-100) Arterial Blood Base Excess 10.6 (-2-2) *H Gerard Test Positive Critical Care - Objective Last 24 Hour Vital Signs Date Time Temp Pulse Resp B/P (MAP) Pulse Ox O2 Delivery O2 Flow Rate FiO2 08/25/19 15:08 81 16 98 Venturi Mask 35 82 16 97 08/25/19 15:00 81 14 81/46 (58) 98 08/25/19 14:00 99.1 83 16 91/57 (68) 96 08/25/19 13:00 82 20 101/56 (71) 98 08/25/19 12:00 Venturi Mask 8.0 Venturi Mask 8.0 08/25/19 12:00 87 08/25/19 12:00 87 18 108/54 (72) 94 08/25/19 12:00 8.0 40 08/25/19 11:14 76 15 99 Venturi Mask 35 75 15 96 08/25/19 11:08 78 15 103/63 (76) 98 08/25/19 10:00 80 18 107/55 (72) 98 08/25/19 09:00 85 18 105/47 (66) 93 08/25/19 08:00 76 08/25/19 08:00 99.5 76 16 110/47 (68) 99 08/25/19 08:00 Bi-pap Bi-pap 08/25/19 08:00 35 08/25/19 07:00 73 16 113/52 (72) 100 08/25/19 07:00 73 21 99 35 74 29 100 35 08/25/19 06:59 99 Bi-Pap 35 08/25/19 06:00 76 15 102/49 (66) 98 08/25/19 05:00 79 16 120/57 (78) 96 08/25/19 05:00 95 18 100 35 35 2/3/20 04:00 Bi-pap Bi-pap 08/25/19 04:00 99.2 82 17 130/58 (82) 98 08/25/19 04:00 81 20 106/65 (79) 96 08/25/19 04:00 90 08/25/19 04:00 35 08/25/19 03:08 82 20 100 Bi-Pap 35 81 20 98 08/25/19 03:08 81 18 99 Bi-Pap 35 90 18 100 35 08/25/19 03:00 82 17 130/58 (82) 98 08/25/19 02:00 83 16 119/57 (77) 95 08/25/19 01:20 89 18 99 35 35 08/25/19 01:00 92 16 111/51 (71) 91 08/25/19 00:00 Bi-pap Bi-pap 08/25/19 00:00 99.0 95 19 121/63 (82) 99 08/25/19 00:00 96 08/25/19 00:00 35 08/24/19 23:35 92 20 100 Bi-Pap 35 91 20 99 08/24/19 23:35 91 18 99 Facial 35 92 18 100 Bi-Pap 35 08/24/19 23:00 90 23 117/76 (90) 99 08/24/19 22:00 92 16 101/39 (59) 94 08/24/19 21:00 98 21 104/44 (64) 87 08/24/19 20:00 Bi-pap Bi-pap 08/24/19 20:00 98.0 103 22 128/68 (88) 93 08/24/19 20:00 8.0 40 08/24/19 20:00 88 08/24/19 19:27 91 24 100 Venturi Mask 8.0 40 92 20 100 08/24/19 19:27 100 Venturi Mask 8.0 40 08/24/19 19:00 89 23 126/56 (79) 100 08/24/19 18:00 96 23 120/97 (105) 100 08/24/19 17:00 94 18 110/55 (73) 98 08/24/19 16:00 Bi-pap Bi-pap 08/24/19 16:00 8.0 40 08/24/19 16:00 99.3 95 26 123/68 (86) 97 2/2/20 16:00 94 08/24/19 15:59 91 24 100 Venturi Mask 8.0 40 89 22 100 Accucheck: 114 Critical Care - Subjective ROS Limited/Unobtainable: No FI02: 40 Vent Support Breath Rate: 14 Vent Support Mode: BiLevel Vent Tidal Volume: 400 Sputum Amount: None PEEP: 5.0 PIP: 22 Tube Feeding Amount: 50 I&O: Intake and Output 08/24/19 08/25/19 18:59 06:59 Intake Total 1449.466 ml 300 ml Output Total 530 ml 690 ml Balance 919.466 ml -390 ml Intake Free Water 260 ml IV Total 589.466 ml Tube Feeding 600 ml 300 ml Output Urine Total 530 ml 690 ml # Bowel Movements 3 3 ET-Tube: 7.5 ET Position: 23 Perfecto Youngblood MD Aug 25, 2019 15:27
--- NOTE | 2019-08-25 16:00 | NUR ---
NURSE NOTES: Patient vital signs remain stable at this time. 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 Patient on venturi mask at 40% FiO2 at this time. Tube feeding of Vital AF at 50mL/hr on right nares NGT. Residual of 40mL noted. Will continue to monitor. Suprapubic catheter remains patent, in place, and draining straw yellow urine at this time. All wound dressing intact and dry at this time. Oral care and repositioning done at this time. Will continue to monitor.
--- NOTE | 2019-08-25 16:36 | Diagnostic Imaging Report ---
Indication: Dyspnea Comparison: 08/22/2019 A single view chest radiograph was obtained. Findings: Pulmonary vascularity appears slightly more prominent than on the prior occasion. Platelike atelectasis has also developed at both lung bases. The heart is mildly enlarged. No change otherwise. IMPRESSION: Suspicion of slightly worsening CHF
--- NOTE | 2019-08-25 18:00 | NUR ---
NURSE NOTES: Patient vital signs stable. Patient repositioned. Will continue to monitor.
--- NOTE | 2019-08-25 19:24 | Internal Med Progress Note ---
Subjective Date of Service: Aug 25, 2019 Physician Name LluviaNiraj Attending Physician Wil Masters MD Current Medications Medications (Trade) Dose Ordered Sig/Sandeep Route PRN Reason Start Time Stop Time Status Last Admin Dose Admin Acetaminophen (Tylenol) 650 mg Q4H PRN NG Mild Pain/Temp > 100.5 08/22/19 10:30 09/21/19 10:29 08/23/19 20:22 Acetylcysteine (Mucomyst) 400 mg Q4HRT N 08/16/19 11:00 09/15/19 10:59 08/25/19 15:09 Albuterol/ Ipratropium (Albuterol/ Ipratropium) 3 ml Q4HRT HHN 08/22/19 15:00 08/27/19 14:59 08/25/19 15:09 Apixaban (Eliquis) 5 mg BID NGT 08/16/19 09:00 09/11/19 17:59 08/25/19 18:27 Chlorhexidine Gluconate (Debora-Hex 2%) 1 applic DAILY@2000 TOPIC 08/13/19 20:00 09/12/19 19:59 08/24/19 20:22 Ciprofloxacin (Cipro 500mg tab) 500 mg EVERY 12 HOURS NG 08/25/19 21:00 09/01/19 20:59 Divalproex Sodium (Depakote Sprinkles) 500 mg Q12HR NG 08/15/19 21:00 09/14/19 20:59 08/25/19 09:08 Meropenem 1 gm/ Sodium Chloride 55 ml @ 110 mls/hr Q8HR IVPB 08/23/19 14:00 08/28/19 13:59 08/25/19 14:23 Metoclopramide HCl (Reglan) 5 mg Q6H PRN IVP Nausea & Vomiting 08/04/19 10:00 09/03/19 09:59 Pantoprazole (Protonix) 40 mg DAILY IV 08/01/19 09:00 08/31/19 08:59 08/25/19 09:07 Polyethylene Glycol (Miralax) 17 gm BEDTIME ORAL 08/20/19 21:00 09/19/19 20:59 08/24/19 21:26 Vancomycin HCl (Vanco rx to dose) 1 ea DAILY PRN MISC Per rx protocol 2/1/20 09:45 09/22/19 09:44 Vancomycin HCl 750 mg/Dextrose 275 ml @ 183.333 mls/hr Q8H IVPB 08/25/19 00:30 08/28/19 11:59 08/25/19 17:07 Allergies: Coded Allergies: LATEX (Verified Allergy, Severe, Rash on skin, 08/19/19) PENICILLIN G (Verified Allergy, Unknown, 12/02/18) Tolerates cabapenem, cephalosporin PENICILLINS (Unverified Allergy, Unknown, 12/02/18) ROS Limited/Unobtainable: Yes Subjective 49 YO F with pneumonia and respiratory failure. Extubated 08/11/19. Cover for Int Med-DR Masters. ICU. Tolerating venturi mask Objective Last Vital Signs Date Time Temp Pulse Resp B/P (MAP) Pulse Ox O2 Delivery O2 Flow Rate FiO2 08/25/19 19:00 90 20 105/47 (66) 98 08/25/19 18:00 99.6 08/25/19 16:00 Venturi Mask 8.0 Venturi Mask 8.0 08/25/19 16:00 40 Laboratory Tests Test 08/24/19 23:00 08/25/19 04:00 Vancomycin Level Trough 7.8 ug/mL (5.0-12.0) White Blood Count 11.5 K/UL (4.8-10.8) H Red Blood Count 3.71 M/UL (4.20-5.40) L Hemoglobin 9.1 G/DL (12.0-16.0) L Hematocrit 27.9 % (37.0-47.0) L Mean Corpuscular Volume 75 FL (80-99) L Mean Corpuscular Hemoglobin 24.7 PG (27.0-31.0) L Mean Corpuscular Hemoglobin Concent 32.8 G/DL (32.0-36.0) Red Cell Distribution Width 20.4 % (11.6-14.8) H Platelet Count 225 K/UL (150-450) Mean Platelet Volume 5.7 FL (6.5-10.1) L Neutrophils (%) (Auto) 76.7 % (45.0-75.0) H Lymphocytes (%) (Auto) 13.5 % (20.0-45.0) L Monocytes (%) (Auto) 6.3 % (1.0-10.0) Eosinophils (%) (Auto) 2.9 % (0.0-3.0) Basophils (%) (Auto) 0.5 % (0.0-2.0) Sodium Level 144 MMOL/L (136-145) Potassium Level 3.1 MMOL/L (3.5-5.1) L Chloride Level 103 MMOL/L (98-107) Carbon Dioxide Level 36 MMOL/L (21-32) H Anion Gap 5 mmol/L (5-15) Blood Urea Nitrogen 12 mg/dL (7-18) Creatinine 0.3 MG/DL (0.55-1.30) L Estimat Glomerular Filtration Rate > 60 mL/min (>60) Glucose Level 124 MG/DL (74-106) H Calcium Level 8.0 MG/DL (8.5-10.1) L Intake and Output 08/24/19 08/25/19 19:00 07:00 Intake Total 1389.466 ml 250 ml Output Total 485 ml 725 ml Balance 904.466 ml -475 ml Intake Free Water 200 ml IV Total 589.466 ml Tube Feeding 600 ml 250 ml Output Urine Total 485 ml 725 ml # Bowel Movements 3 3 Objective General Appearance: WD/WN, moderate distress EENT: PERRL/EOMI, normal ENT inspection Neck: non-tender, normal alignment, supple Cardiovascular: normal peripheral pulses, normal rate, regular rhythm, no gallop/murmur, no JVD Respiratory/Chest: Venturi mask; crackles/rales, rhonchi - bilaterally, expiratory wheezing Abdomen: normal bowel sounds, non tender, soft, no organomegaly, no mass Skin: normal pigmentation, warm/dry Assessment/Plan Problem List: (1) Respiratory failure with hypoxia Assessment & Plan: Tolerating venturi mask. S/P extubation 08/11/19 per pulmonary=Dr Bonilla (2) Pneumonia of both lower lobes Assessment & Plan: See ID note. S/P meropenem and zyvox. Continue meropenem, amikacin and vanco. (3) UTI (urinary tract infection) Assessment & Plan: Pseudamonas, ESBL E. Coli, and vanco resistant enterococcus. See ID note; Dr Sanabria signed off. Await new ID consult= Dr Buck/Milly. S/P meropenem, linezolid and micafugin (4) Sepsis (5) Paraplegia (6) Spina bifida Niraj Teixeira MD Aug 25, 2019 19:24
--- NOTE | 2019-08-25 19:30 | NUR ---
HAND-OFF: Report given to EMMA Giordano. Vital signs stable.
--- NOTE | 2019-08-25 20:00 | NUR ---
NURSE NOTES: Blood cx collected via peripherally and from PICC line, sent to lab Patient repositioned Oral care was given CPT vest therapy, breathing treatment and then nasally suctioned VSS temp of 100.3F, cooling measures given.
[2019-08-25] MEDS: Miralax 17gm pkt ORAL SCH (20:30)
[2019-08-25] MEDS: Ciprofloxacin 500mg tab NG SCH (20:30)
[2019-08-25] MEDS: Dyna-Hex 2% Top Sol 2oz TOPIC SCH (20:30)
--- NOTE | 2019-08-25 22:00 | NUR ---
NURSE NOTES: repositioned oral care VSS Cooling measure ongoing remains on venturi 8L/4-% FiO2 SpO2 96 Breathing pattern normal Nasally suctioned again via nasal trumpet
--- NOTE | 2019-08-25 23:00 | NUR ---
NURSE NOTES: Vanco trough drawn and sent to lab BIPAP placed 06/28 40% Feeds on hold
[2019-08-26] VITALS (24 sets, daily range): BP systolic 85–121; BP diastolic 32–91
--- NOTE | 2019-08-26 | NUR ---
NURSE NOTES: Repositioned oral care Abx given remains on bipap Feed on hold during BIPAP hours NAD VSS afebrile
[2019-08-26] MEDS: Acetylcysteine 20% Soln 4ml HHN SCH ×7 (00:04→23:06)
[2019-08-26] MEDS: Albuterol/Ipratropium 3ml neb HHN SCH ×7 (00:04→23:06)
[2019-08-26] MEDS: Vancomycin 750mg/D5W 275ml IVPB SCH ×6 (00:41→16:47)
--- NOTE | 2019-08-26 02:00 | NUR ---
NURSE NOTES: repositioned insertions of peripheral IV was attempted unsuccessful, will try again later Vitals remains stable No fever cool to touch No new change
--- NOTE | 2019-08-26 04:00 | NUR ---
NURSE NOTES: Large brown liquid BM Patient cleaned and repositioned temp 99.3Fn (ax) Remains on BIPAP Feeds remains on hold NAD reattempted peripheral IV insertion, unsuccessful Oral care also given Blood drawn and sent to lab
--- NOTE | 2019-08-26 05:15 | Progress Note ---
DATE: 08/25/2019 SUBJECTIVE: The patient is asleep. She was irritable. Continues to have episodes of agitation. The patient is removing the BiPAP and needs redirection. The patient was not combative today. MENTAL STATUS EXAMINATION: The patient is having waxing and waning consciousness. however, follows commands. Mood is neutral to anxious. Affect is flat. Thought process is concrete. Thought content, no suicidal or homicidal ideation. Cognition is impaired. Insight and judgment are impaired. ASSESSMENT: 1. Acute encephalopathy with developmental disability. 2. Agitation. PLAN: No medication changes. Continue current care. Kobi Reyes M.D. DR: JESUS JOB#: [id number] CC:
[2019-08-26] MEDS: Meropenem 1 GM in NS 55 ML IVPB SCH ×3 (05:44→22:31)
--- NOTE | 2019-08-26 06:09 | NUR ---
NURSE NOTES: Repositioned Oral care VSS No new changes
[2019-08-26 06:38] LABS: BASOPHILS % (AUTO) 0.5 % (0.0-2.0); EOSINOPHILS % (AUTO) 2.8 % (0.0-3.0); HEMOGLOBIN 9.2 G/DL (12.0-16.0); LYMPHOCYTES % (AUTO) 12.9 % (20.0-45.0); MEAN CORPUSCULAR VOLUME 76 FL (80-99); MONOCYTES % (AUTO) 5.7 % (1.0-10.0); NEUTROPHILS % (AUTO) 78.2 % (45.0-75.0); PLATELET COUNT 268 K/UL (150-450); RED BLOOD COUNT 3.67 M/UL (4.20-5.40); RED CELL DISTRIBUTION WIDTH 21.2 % (11.6-14.8); WHITE BLOOD COUNT 15.7 K/UL (4.8-10.8)
--- NOTE | 2019-08-26 06:39 | General Progress Note ---
Assessment/Plan Problem List: (1) Spina bifida ICD Codes: Q05.9 - Spina bifida, unspecified SNOMED: 65929324 Qualifiers: Qualified Codes: Q05.4 - Unspecified spina bifida with hydrocephalus (2) Respiratory failure with hypoxia ICD Codes: J96.91 - Respiratory failure, unspecified with hypoxia SNOMED: 45295899168634742 Qualifiers: Qualified Codes: J96.21 - Acute and chronic respiratory failure with hypoxia (3) Dysphagia ICD Codes: R13.10 - Dysphagia, unspecified SNOMED: 56662345, 353717585 (4) UTI (urinary tract infection) ICD Codes: N39.0 - Urinary tract infection, site not specified SNOMED: 34163841, 600792840 Qualifiers: Qualified Codes: N30.00 - Acute cystitis without hematuria (5) Paraplegia ICD Codes: G82.20 - Paraplegia, unspecified SNOMED: 30638334 (6) Anemia ICD Codes: D64.9 - Anemia, unspecified SNOMED: 991489408 Status: unchanged Assessment/Plan: extubated on BIPAP ppi repeat labs fu H&H stool ob neg x1 reglan family wants to transfer the patient to [facility] and refusing PEG here at [facility] NG for now will need peg but family refusing abx per ID fu pulm recs will fu Subjective ROS Limited/Unobtainable: No Allergies: Coded Allergies: LATEX (Verified Allergy, Severe, Rash on skin, 08/19/19) PENICILLIN G (Verified Allergy, Unknown, 12/02/18) Tolerates cabapenem, cephalosporin PENICILLINS (Unverified Allergy, Unknown, 12/02/18) Objective Last 24 Hour Vital Signs Date Time Temp Pulse Resp B/P (MAP) Pulse Ox O2 Delivery O2 Flow Rate FiO2 08/26/19 06:00 75 15 102/58 (73) 100 08/26/19 05:14 79 15 94 Full Face 40 08/26/19 05:00 78 18 85/65 (72) 99 08/26/19 04:00 40 08/26/19 04:00 99.2 73 19 121/65 (83) 100 08/26/19 04:00 88 20 99 Bi-Pap 40 82 20 97 08/26/19 04:00 Bi-pap 8.0 Venturi Mask 08/26/19 04:00 77 08/26/19 03:00 72 16 96/32 (53) 100 08/26/19 03:00 75 18 99 Facial 40 08/26/19 02:00 81 18 104/91 (95) 95 08/26/19 01:00 78 17 100/44 (62) 99 08/26/19 01:00 82 17 98 Full Face 40 08/26/19 00:00 40 08/26/19 00:00 96 20 97 Bi-Pap 40 94 20 95 08/26/19 00:00 90 08/26/19 00:00 Bi-pap 8.0 Venturi Mask 08/26/19 00:00 98.6 77 15 113/54 (73) 88 08/25/19 23:00 40 08/25/19 23:00 87 18 112/58 (76) 99 08/25/19 23:00 81 17 100 Facial 40 08/25/19 22:00 95 21 119/50 (73) 86 08/25/19 21:00 92 19 111/44 (66) 95 08/25/19 20:00 96 20 97 Venturi Mask 8.0 40 94 20 95 08/25/19 20:00 100.3 93 24 108/57 (74) 97 08/25/19 20:00 98 Venturi Mask 8.0 40 08/25/19 20:00 8.0 40 08/25/19 20:00 87 08/25/19 20:00 Venturi Mask 8.0 Venturi Mask 8.0 08/25/19 19:00 90 20 105/47 (66) 98 08/25/19 18:00 99.6 92 22 119/58 (78) 86 08/25/19 17:00 88 17 110/79 (89) 93 08/25/19 16:00 96 08/25/19 16:00 Venturi Mask 8.0 Venturi Mask 8.0 08/25/19 16:00 8.0 40 08/25/19 16:00 91 17 102/84 (90) 85 08/25/19 15:08 81 16 98 Venturi Mask 35 82 16 97 08/25/19 15:00 81 14 81/46 (58) 98 08/25/19 14:00 99.1 83 16 91/57 (68) 96 08/25/19 13:00 82 20 101/56 (71) 98 08/25/19 12:00 Venturi Mask 8.0 Venturi Mask 8.0 08/25/19 12:00 87 08/25/19 12:00 87 18 108/54 (72) 94 08/25/19 12:00 8.0 40 08/25/19 11:14 76 15 99 Venturi Mask 35 75 15 96 08/25/19 11:08 78 15 103/63 (76) 98 08/25/19 10:00 80 18 107/55 (72) 98 08/25/19 09:00 85 18 105/47 (66) 93 08/25/19 08:00 76 08/25/19 08:00 99.5 76 16 110/47 (68) 99 08/25/19 08:00 Bi-pap Bi-pap 08/25/19 08:00 35 08/25/19 07:00 73 16 113/52 (72) 100 08/25/19 07:00 73 21 99 35 74 29 100 35 08/25/19 06:59 99 Bi-Pap 35 Intake and Output 08/25/19 08/26/19 19:00 07:00 Intake Total 1245.000 ml 540 ml Output Total 725 ml 460 ml Balance 520.000 ml 80 ml Intake Free Water 60 ml IV Total 605.000 ml 330 ml Tube Feeding 550 ml 150 ml Other 90 ml Output Urine Total 725 ml 460 ml # Bowel Movements 1 2 Laboratory Tests 08/25/19 23:25: Vancomycin Level Trough 16.5H 08/26/19 04:00: White Blood Count [Pending], Red Blood Count [Pending], Hemoglobin [Pending], Hematocrit [Pending], Mean Corpuscular Volume [Pending], Mean Corpuscular Hemoglobin [Pending], Mean Corpuscular Hemoglobin Concent [Pending], Red Cell Distribution Width [Pending], Platelet Count [Pending], Mean Platelet Volume [ Pending], Neutrophils (%) (Auto) [Pending], Lymphocytes (%) (Auto) [Pending], Monocytes (%) (Auto) [Pending], Eosinophils (%) (Auto) [Pending], Basophils (%) (Auto) [Pending], Sodium Level [Pending], Potassium Level [Pending], Chloride Level [Pending], Carbon Dioxide Level [Pending], Blood Urea Nitrogen [Pending], Creatinine [Pending], Estimat Glomerular Filtration Rate [Pending], Glucose Level [Pending], Calcium Level [Pending] Height (Feet): 4 Height (Inches): 10.00 Weight (Pounds): 115 General Appearance: no apparent distress EENT: normal ENT inspection Neck: supple Cardiovascular: normal rate Respiratory/Chest: decreased breath sounds Abdomen: normal bowel sounds, non tender, soft Extremities: non-tender Tim Davis MD Aug 26, 2019 06:39
[2019-08-26 07:11] LABS: ANION GAP 3 mmol/L (5-15); BLOOD UREA NITROGEN 13 mg/dL (7-18); CALCIUM 8.4 MG/DL (8.5-10.1); CARBON DIOXIDE 38 MMOL/L (21-32); CHLORIDE 101 MMOL/L (98-107); CREATININE 0.3 MG/DL (0.55-1.30); POTASSIUM 3.7 MMOL/L (3.5-5.1); SODIUM 142 MMOL/L (136-145)
--- NOTE | 2019-08-26 07:23 | NUR ---
HAND-OFF: Report given to Tasha CARTER.
--- NOTE | 2019-08-26 07:24 | NUR ---
NURSE NOTES: Report received from EMMA Giordano. Pt is awake and alert. Able to answer for simple questions and verbalize needs by repeating words. Spinal bifida noted. Sinus rhythm 80's on hall monitor. On ventri 40%, 94-98%. Right nare NGT in place and receiving Vital AF 1.2 at 50cc/hr. No residual noted. Suprapubic catheter in place draining yellow urine to gravity. JASON PICC line patent and asymptomatic. Bed in lowest position. Side rails up x3. Call light within reach. Will resume plan of care.
--- NOTE | 2019-08-26 08:00 | NUR ---
NURSE NOTES: Oral care done. No acute distress noted. Will continue to monitor.
[2019-08-26] MEDS: Pantoprazole Inj IV SCH (08:51)
[2019-08-26] MEDS: Depakote 125mg Sprinkles NG SCH ×2 (08:52→21:22)
[2019-08-26] MEDS: Eliquis 5mg tablet NGT SCH ×2 (08:52→17:56)
[2019-08-26] MEDS: Ciprofloxacin 500mg tab NG SCH ×2 (08:52→21:22)
--- NOTE | 2019-08-26 10:03 | Infectious Diseases Prog Note ---
Assessment/Plan Assessment/Plan Assessment: Sepsis Gram positive bacteremia- suspect PICC line infection -08/22 Bcx 2/4 S.epi; 2/3 bcx p Recurrent aspiration pneumonia -08/25 CXR:Suspicion of slightly worsening CHF -08/22 cXR: Possible mild pulmonary vascular congestion. No change from the prior study -08/21 sp cx S. aureus, MDR PsA (S Amikacin, Cipro/levo; R Cefepime, Meropenem) -08/18 cXR: The lungs remain clear. There may be some minimal basal atelectasis -08/14 CXR: Cardiomegaly. Mild interstitial congestion, unchanged over 3 days -07/31, 08/01 sp cx normal resp sunny -07/12 sp cx normal -07/12 SP FLEXIBLE FIBEROPTIC BRONCHOSCOPY WITH BRONCHOALVEOLAR LAVAGE AND THERAPEUTIC ASPIRATION OF MUCOUS PLUG LEFT LUNG -07/11/20 CXR: Bilateral pulmonary edema/infiltrates. Possible small pleural effusions. Fever, recurrent; improving Leukocytosis, recurrent; increased Recurrent hypoxic respiratory failure 2ry to above -sp intubation 07/31/19 and extubation 08/11/19 -s/p intubation 07/12/19 and extubation 07/19/19 UTI , recurrent -08/21 u/a wbc tnct, nit neg, leuk large; ucx >100k PsA (I Cefepime, Levaquin ; S Imipenem, Cipro) -08/11 ucx C. parapsilosis (colinzer) - 07/12 Ucx PsA (R Ceftazidime, levaquin; I Ciprofloxacin; otherwise S), VRE ( S Amp, linezolid) -07/11/19 u/a wbc tntc, nit neg, leuk +3; ucx PsA, ESBL E.coli, P. mirabilis S. mitis bacteremia- likely contaminant -07/28 Bcx 07/26 S. mitis; 07/29, 08/01, 08/03 Bcx neg HTN Dm2 spina bifida s/p DERMATOLOGY NURSE PRACTITIONER shunt decubiti ulcers wheelchair bound/paraplegic b/l renal stents neurogenic bladder s/p suprapubic catheter recurrent UTIs Plan: -Continue Meropenem #4/7-10 and PO Cipro #2 (abx d #5) -Continue IV Vancomycin #4 for S. aureus PNA and bacteremia -08/25 SP Amikacin #4 -2/ SP Cefepime and Flagyl #3 -08/11 SP Linezolid and Meropenem #15 -08/06 SP Micafungin #4 -f/u cx -Monitor CBC/CMP, temperatures -aspiration precautions -GI, pulm f/u -speech therapy recommending PEG, family is refusing -f/uBcx x2 (peripheral and pICC line) -remove PICC line Thank you for this consultation. Will continue to follow along with you. Discussed with RN Subjective Allergies: Coded Allergies: LATEX (Verified Allergy, Severe, Rash on skin, 08/19/19) PENICILLIN G (Verified Allergy, Unknown, 12/02/18) Tolerates cabapenem, cephalosporin PENICILLINS (Unverified Allergy, Unknown, 12/02/18) Subjective Tm 100.3 wbc increased Objective Vital Signs Last 24 Hour Vital Signs Date Time Temp Pulse Resp B/P (MAP) Pulse Ox O2 Delivery O2 Flow Rate FiO2 08/26/19 08:00 98.5 84 14 93/33 (53) 98 08/26/19 07:00 72 20 119/81 (94) 100 08/26/19 06:54 74 16 100 Venturi Mask 8.0 40 76 18 100 08/26/19 06:53 100 Venturi Mask 8.0 40 08/26/19 06:00 75 15 102/58 (73) 100 08/26/19 05:14 79 15 94 Full Face 40 08/26/19 05:00 78 18 85/65 (72) 99 08/26/19 04:00 40 08/26/19 04:00 99.2 73 19 121/65 (83) 100 08/26/19 04:00 88 20 99 Bi-Pap 40 82 20 97 08/26/19 04:00 Bi-pap 8.0 Venturi Mask 08/26/19 04:00 77 08/26/19 03:00 72 16 96/32 (53) 100 08/26/19 03:00 75 18 99 Facial 40 08/26/19 02:00 81 18 104/91 (95) 95 08/26/19 01:00 78 17 100/44 (62) 99 08/26/19 01:00 82 17 98 Full Face 40 08/26/19 00:00 40 08/26/19 00:00 96 20 97 Bi-Pap 40 94 20 95 08/26/19 00:00 90 08/26/19 00:00 Bi-pap 8.0 Venturi Mask 08/26/19 00:00 98.6 77 15 113/54 (73) 88 08/25/19 23:00 40 08/25/19 23:00 87 18 112/58 (76) 99 08/25/19 23:00 81 17 100 Facial 40 08/25/19 22:00 95 21 119/50 (73) 86 08/25/19 21:00 92 19 111/44 (66) 95 08/25/19 20:00 96 20 97 Venturi Mask 8.0 40 94 20 95 08/25/19 20:00 100.3 93 24 108/57 (74) 97 08/25/19 20:00 98 Venturi Mask 8.0 40 08/25/19 20:00 8.0 40 08/25/19 20:00 87 08/25/19 20:00 Venturi Mask 8.0 Venturi Mask 8.0 08/25/19 19:00 90 20 105/47 (66) 98 08/25/19 18:00 99.6 92 22 119/58 (78) 86 08/25/19 17:00 88 17 110/79 (89) 93 08/25/19 16:00 96 08/25/19 16:00 Venturi Mask 8.0 Venturi Mask 8.0 08/25/19 16:00 8.0 40 08/25/19 16:00 91 17 102/84 (90) 85 08/25/19 15:08 81 16 98 Venturi Mask 35 82 16 97 08/25/19 15:00 81 14 81/46 (58) 98 08/25/19 14:00 99.1 83 16 91/57 (68) 96 08/25/19 13:00 82 20 101/56 (71) 98 08/25/19 12:00 Venturi Mask 8.0 Venturi Mask 8.0 08/25/19 12:00 87 08/25/19 12:00 87 18 108/54 (72) 94 08/25/19 12:00 8.0 40 08/25/19 11:14 76 15 99 Venturi Mask 35 75 15 96 08/25/19 11:08 78 15 103/63 (76) 98 2/3/20 10:00 80 18 107/55 (72) 98 Height (Feet): 4 Height (Inches): 10.00 Weight (Pounds): 115 Objective General Appearance: lethargic EENT: normal ENT inspection Neck: supple Cardiovascular: normal rate Respiratory/Chest: decreased breath sounds Abdomen: normal bowel sounds, non tender, soft Extremities: non-tender Laboratory Tests Test 08/25/19 23:25 08/26/19 04:00 Vancomycin Level Trough 16.5 ug/mL (5.0-12.0) H White Blood Count 15.7 K/UL (4.8-10.8) H Red Blood Count 3.67 M/UL (4.20-5.40) L Hemoglobin 9.2 G/DL (12.0-16.0) L Hematocrit 28.0 % (37.0-47.0) L Mean Corpuscular Volume 76 FL (80-99) L Mean Corpuscular Hemoglobin 25.0 PG (27.0-31.0) L Mean Corpuscular Hemoglobin Concent 32.8 G/DL (32.0-36.0) Red Cell Distribution Width 21.2 % (11.6-14.8) H Platelet Count 268 K/UL (150-450) Mean Platelet Volume 5.6 FL (6.5-10.1) L Neutrophils (%) (Auto) 78.2 % (45.0-75.0) H Lymphocytes (%) (Auto) 12.9 % (20.0-45.0) L Monocytes (%) (Auto) 5.7 % (1.0-10.0) Eosinophils (%) (Auto) 2.8 % (0.0-3.0) Basophils (%) (Auto) 0.5 % (0.0-2.0) Sodium Level 142 MMOL/L (136-145) Potassium Level 3.7 MMOL/L (3.5-5.1) Chloride Level 101 MMOL/L (98-107) Carbon Dioxide Level 38 MMOL/L (21-32) H Anion Gap 3 mmol/L (5-15) L Blood Urea Nitrogen 13 mg/dL (7-18) Creatinine 0.3 MG/DL (0.55-1.30) L Estimat Glomerular Filtration Rate > 60 mL/min (>60) Glucose Level 116 MG/DL (74-106) H Calcium Level 8.4 MG/DL (8.5-10.1) L Current Medications Medications (Trade) Dose Ordered Sig/Sandeep Route PRN Reason Start Time Stop Time Status Last Admin Dose Admin Acetaminophen (Tylenol) 650 mg Q4H PRN NG Mild Pain/Temp > 100.5 08/22/19 10:30 09/21/19 10:29 08/23/19 20:22 Acetylcysteine (Mucomyst) 400 mg Q4HRT N 08/16/19 11:00 09/15/19 10:59 08/26/19 06:57 Albuterol/ Ipratropium (Albuterol/ Ipratropium) 3 ml Q4HRT N 08/22/19 15:00 08/27/19 14:59 08/26/19 06:57 Apixaban (Eliquis) 5 mg BID NGT 08/16/19 09:00 09/11/19 17:59 08/26/19 08:52 Chlorhexidine Gluconate (Debora-Hex 2%) 1 applic DAILY@2000 TOPIC 08/13/19 20:00 09/12/19 19:59 08/25/19 20:30 Ciprofloxacin (Cipro 500mg tab) 500 mg EVERY 12 HOURS NG 08/25/19 21:00 09/01/19 20:59 08/26/19 08:52 Divalproex Sodium (Depakote Sprinkles) 500 mg Q12HR NG 08/15/19 21:00 09/14/19 20:59 08/26/19 08:52 Meropenem 1 gm/ Sodium Chloride 55 ml @ 110 mls/hr Q8HR IVPB 08/23/19 14:00 08/28/19 13:59 08/26/19 05:44 Metoclopramide HCl (Reglan) 5 mg Q6H PRN IVP Nausea & Vomiting 08/04/19 10:00 09/03/19 09:59 Pantoprazole (Protonix) 40 mg DAILY IV 08/01/19 09:00 08/31/19 08:59 08/26/19 08:51 Polyethylene Glycol (Miralax) 17 gm BEDTIME ORAL 08/20/19 21:00 09/19/19 20:59 08/25/19 20:30 Vancomycin HCl (Vanco rx to dose) 1 ea DAILY PRN MISC Per rx protocol 08/23/19 09:45 09/22/19 09:44 Vancomycin HCl 750 mg/Dextrose 275 ml @ 183.333 mls/hr Q8H IVPB 08/25/19 00:30 08/28/19 11:59 08/26/19 08:51 Joaquina Hill M.D. Aug 26, 2019 10:03
--- NOTE | 2019-08-26 10:35 | NUR ---
NURSE NOTES: Notified Dr Hill that pt is hard to stick and might need another PICC line to remove the current one. Dr Hill said we will wait for the second blood culture result and keep the current PICC line meanwhile.
--- NOTE | 2019-08-26 12:41 | NUR ---
SWALLOW STATUS/WEEKLY SUMMARY DISCUSSED PATIENTS STATUS WITH [facility]. PER FAMILY : "NO PEG AT [place]", THEY ARE ATTEMPTING TO TRANSFER PATIENT TO [facility]. PATIENT, WHO PRESENTS WITH HX OF RECURRING PNEUMONIA, CONTINUES TO REQUIRE MULTIPLE SUCTIONING PER SHIFT. UNABLE TO INDEPENDENTLY MANAGE HER UPPER AIRWAY SECRETIONS. NOT SAFE FOR PARTICIPATION IN VIDEO SWALLOW STUDY. FOR THE PAST WEEK PATIENTS NUTRITION/HYDRATION NEEDS MET VIA NG TUBE. GOALS PARTIALLY MET RELATIVE TO STAFF TRAINING/RETURN DEMONSTRATION FOR ORAL CARE. D/C PENDING SOON FAMILY CAN ARRANGE TRANSFER, CONTINUE NPO STATUS
--- NOTE | 2019-08-26 12:58 | NUR ---
NURSE NOTES: Turned and repositioned pt. Oral care done. Afebrile. Pt is tolerating Ventri mask 8L, 40%. O2 sat 100%.
[2019-08-26] MEDS ORDERED: NS 275ml ONE (13:12)
[2019-08-26] MEDS ORDERED: Tubing IV Secondary IV ONE (13:12)
--- NOTE | 2019-08-26 15:40 | NUR ---
NURSE NOTES: Pt is receiving CPT with vest. RT at bedside. Pt is tolerating well. No acute distress noted.
--- NOTE | 2019-08-26 17:38 | Internal Med Progress Note ---
Subjective Date of Service: Aug 26, 2019 Physician Name Niraj Teixeira Attending Physician Wil Masters MD Current Medications Medications (Trade) Dose Ordered Sig/Sandeep Route PRN Reason Start Time Stop Time Status Last Admin Dose Admin Acetaminophen (Tylenol) 650 mg Q4H PRN NG Mild Pain/Temp > 100.5 08/22/19 10:30 09/21/19 10:29 08/23/19 20:22 Acetylcysteine (Mucomyst) 400 mg Q4HRT N 08/16/19 11:00 09/15/19 10:59 08/26/19 15:33 Albuterol/ Ipratropium (Albuterol/ Ipratropium) 3 ml Q4HRT HHN 08/22/19 15:00 08/27/19 14:59 08/26/19 15:33 Apixaban (Eliquis) 5 mg BID NGT 08/16/19 09:00 09/11/19 17:59 08/26/19 08:52 Chlorhexidine Gluconate (Debora-Hex 2%) 1 applic DAILY@2000 TOPIC 08/13/19 20:00 09/12/19 19:59 08/25/19 20:30 Ciprofloxacin (Cipro 500mg tab) 500 mg EVERY 12 HOURS NG 08/25/19 21:00 09/01/19 20:59 08/26/19 08:52 Divalproex Sodium (Depakote Sprinkles) 500 mg Q12HR NG 08/15/19 21:00 09/14/19 20:59 08/26/19 08:52 Meropenem 1 gm/ Sodium Chloride 55 ml @ 110 mls/hr Q8HR IVPB 08/23/19 14:00 08/28/19 13:59 08/26/19 14:18 Metoclopramide HCl (Reglan) 5 mg Q6H PRN IVP Nausea & Vomiting 08/04/19 10:00 09/03/19 09:59 Pantoprazole (Protonix) 40 mg DAILY IV 08/01/19 09:00 08/31/19 08:59 08/26/19 08:51 Polyethylene Glycol (Miralax) 17 gm BEDTIME ORAL 08/20/19 21:00 09/19/19 20:59 08/25/19 20:30 Vancomycin HCl (Vanco rx to dose) 1 ea DAILY PRN MISC Per rx protocol 08/23/19 09:45 09/22/19 09:44 Vancomycin HCl 750 mg/Dextrose 275 ml @ 183.333 mls/hr Q8H IVPB 08/25/19 00:30 08/28/19 11:59 08/26/19 16:47 Allergies: Coded Allergies: LATEX (Verified Allergy, Severe, Rash on skin, 08/19/19) PENICILLIN G (Verified Allergy, Unknown, 12/02/18) Tolerates cabapenem, cephalosporin PENICILLINS (Unverified Allergy, Unknown, 12/02/18) ROS Limited/Unobtainable: Yes Subjective 49 YO F with pneumonia and respiratory failure. Extubated 08/11/19. Cover for Int Conor-DR Masters. ICU. Tolerating venturi mask Objective Last Vital Signs Date Time Temp Pulse Resp B/P (MAP) Pulse Ox O2 Delivery O2 Flow Rate FiO2 08/26/19 17:00 98.4 84 16 91/53 (66) 97 08/26/19 16:00 Venturi Mask 8.0 Venturi Mask 8.0 08/26/19 16:00 40 Laboratory Tests Test 08/25/19 23:25 08/26/19 04:00 Vancomycin Level Trough 16.5 ug/mL (5.0-12.0) H White Blood Count 15.7 K/UL (4.8-10.8) H Red Blood Count 3.67 M/UL (4.20-5.40) L Hemoglobin 9.2 G/DL (12.0-16.0) L Hematocrit 28.0 % (37.0-47.0) L Mean Corpuscular Volume 76 FL (80-99) L Mean Corpuscular Hemoglobin 25.0 PG (27.0-31.0) L Mean Corpuscular Hemoglobin Concent 32.8 G/DL (32.0-36.0) Red Cell Distribution Width 21.2 % (11.6-14.8) H Platelet Count 268 K/UL (150-450) Mean Platelet Volume 5.6 FL (6.5-10.1) L Neutrophils (%) (Auto) 78.2 % (45.0-75.0) H Lymphocytes (%) (Auto) 12.9 % (20.0-45.0) L Monocytes (%) (Auto) 5.7 % (1.0-10.0) Eosinophils (%) (Auto) 2.8 % (0.0-3.0) Basophils (%) (Auto) 0.5 % (0.0-2.0) Sodium Level 142 MMOL/L (136-145) Potassium Level 3.7 MMOL/L (3.5-5.1) Chloride Level 101 MMOL/L (98-107) Carbon Dioxide Level 38 MMOL/L (21-32) H Anion Gap 3 mmol/L (5-15) L Blood Urea Nitrogen 13 mg/dL (7-18) Creatinine 0.3 MG/DL (0.55-1.30) L Estimat Glomerular Filtration Rate > 60 mL/min (>60) Glucose Level 116 MG/DL (74-106) H Calcium Level 8.4 MG/DL (8.5-10.1) L Intake and Output 08/25/19 08/26/19 19:00 07:00 Intake Total 1245.000 ml 540 ml Output Total 725 ml 460 ml Balance 520.000 ml 80 ml Intake Free Water 60 ml IV Total 605.000 ml 330 ml Tube Feeding 550 ml 150 ml Other 90 ml Output Urine Total 725 ml 460 ml # Bowel Movements 1 2 Objective General Appearance: WD/WN, moderate distress EENT: PERRL/EOMI, normal ENT inspection Neck: non-tender, normal alignment, supple Cardiovascular: normal peripheral pulses, normal rate, regular rhythm, no gallop/murmur, no JVD Respiratory/Chest: Venturi mask; crackles/rales, rhonchi - bilaterally, expiratory wheezing Abdomen: normal bowel sounds, non tender, soft, no organomegaly, no mass Skin: normal pigmentation, warm/dry Assessment/Plan Problem List: (1) Respiratory failure with hypoxia Assessment & Plan: Tolerating venturi mask. S/P extubation 08/11/19 per pulmonary=Dr Bonilla (2) Pneumonia of both lower lobes Assessment & Plan: See ID note. S/P meropenem and zyvox. Continue meropenem, amikacin and vanco. (3) UTI (urinary tract infection) Assessment & Plan: Pseudamonas, ESBL E. Coli, and vanco resistant enterococcus. See ID note; Dr Sanabria signed off. Await new ID consult= Dr Buck/Milly. S/P meropenem, linezolid and micafugin (4) Sepsis (5) Paraplegia (6) Spina bifida Niraj Teixeira MD Aug 26, 2019 17:38
--- NOTE | 2019-08-26 18:00 | NUR ---
NURSE NOTES: Cleaned and repositioned pt. Pt is reading magazine in bed. Pt is tolerating Ventri mask 8L, 40%. O2 sat 99-100%.
--- NOTE | 2019-08-26 19:25 | NUR ---
HAND-OFF: Report given to EMMA Mesa.
--- NOTE | 2019-08-26 19:30 | NUR ---
NURSE NOTES: Received pt awake alert , AOx3, sR on the monitor, bp stable afebrile.On 40% ventimask 02 sat 100%, not congested at this time, received Resp. tx from RT with CPT.Suprapubic cath at this time,draining moderate amt of yellowish urine. tolerated fdg at this time, residual 10-ml. Hob kept elevated . On aspiration precaution. sacral area with optifoam drsg dry and intact, On p200 mattress , turned q 2hrs prn with good skin care done. Will continue to monitor.
[2019-08-26] MEDS: Dyna-Hex 2% Top Sol 2oz TOPIC SCH (20:22)
[2019-08-26] MEDS: Miralax 17gm pkt ORAL SCH (21:00)
--- NOTE | 2019-08-26 23:16 | NUR ---
NURSE NOTES: Received resp Tx from RT,with cpt after. suctioned tn tk beige secretions lg in amt. 02 sat 100% hoB KEPT ELEVATED. WATCH FOR ANY RESP. DISTRESS.
[2019-08-27] VITALS (23 sets, daily range): BP systolic 91–129; BP diastolic 28–85
[2019-08-27] MEDS: Vancomycin 750mg/D5W 275ml IVPB SCH ×6 (00:24→18:12)
--- NOTE | 2019-08-27 02:00 | NUR ---
NURSE NOTES: had x 1 lg liquid stool. cleaned up pt
[2019-08-27] MEDS: Acetylcysteine 20% Soln 4ml HHN SCH ×6 (03:12→22:53)
[2019-08-27] MEDS: Albuterol/Ipratropium 3ml neb HHN SCH ×6 (03:12→22:53)
--- NOTE | 2019-08-27 04:00 | NUR ---
NURSE NOTES: suctioned and turned for comfort. 02 sat 100%
[2019-08-27 05:26] LABS: ANION GAP 5 mmol/L (5-15); BLOOD UREA NITROGEN 12 mg/dL (7-18); CALCIUM 8.2 MG/DL (8.5-10.1); CARBON DIOXIDE 34 MMOL/L (21-32); CHLORIDE 99 MMOL/L (98-107); CREATININE 0.4 MG/DL (0.55-1.30); POTASSIUM 3.3 MMOL/L (3.5-5.1); SODIUM 138 MMOL/L (136-145)
[2019-08-27 05:35] LABS: BASOPHILS % (AUTO) 0.3 % (0.0-2.0); EOSINOPHILS % (AUTO) 2.7 % (0.0-3.0); HEMATOCRIT 25.4 % (37.0-47.0); HEMOGLOBIN 8.6 G/DL (12.0-16.0); LYMPHOCYTES % (AUTO) 15.8 % (20.0-45.0); MEAN CORPUSCULAR VOLUME 75 FL (80-99); MONOCYTES % (AUTO) 5.4 % (1.0-10.0); NEUTROPHILS % (AUTO) 75.9 % (45.0-75.0); PLATELET COUNT 276 K/UL (150-450); RED CELL DISTRIBUTION WIDTH 20.8 % (11.6-14.8); WHITE BLOOD COUNT 13.6 K/UL (4.8-10.8)
[2019-08-27] MEDS: Meropenem 1 GM in NS 55 ML IVPB SCH ×3 (05:59→22:17)
--- NOTE | 2019-08-27 06:00 | NUR ---
NURSE NOTES: Complete bath with bed changed done. JASON PICC line drsg was changed.
--- NOTE | 2019-08-27 07:15 | NUR ---
NURSE NOTES: Received pt from [facility]. pt is awake, currently on BIPAP 06/28, FIo2 40%. RT to change to venturi mask during day time. A/Ox1-2. 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 Moderate secretions. Left PICC connected to TKO. Suprapubic catheter draining to gravity. Denies pain or discomfort at this time. Bed locked, alarmed and in lowest position.
--- NOTE | 2019-08-27 07:30 | NUR ---
HAND-OFF: Report given to Vanda Albert.
--- NOTE | 2019-08-27 08:58 | Pulmonolgy Critical Care Note ---
Critical Care - Asmt/Plan Assessment/Plan: (1) Pneumonia of both lower lobes Assessment & Plan: VDRF, intubated 07/12/19, S/P FOB 07/12/19; Reintubated ; extubated 08/11/19 (2) Catheter-associated urinary tract infection Assessment & Plan: PsA and proteus - s/p treatment (3) Respiratory failure with hypoxia Assessment & Plan: Acute on chronic hypercapnic and hypoxemic RF 2/2 PNA Duplex neg, minimally elevated d-dimer, unlikely VTE and already on a NOAC (4) HCAP (healthcare-associated pneumonia) (5) Paraplegia (6) Sepsis (7) Suprapubic catheter (8) Restrictive lung disease due to kyphoscoliosis (9) Decubitus skin ulcer (10) Spina bifida (11) Anemia, acute (12) hx recurrent PE on eliquis Plan: * Abx per ID * Wean oxygen as tolerated, BiPAP at night * NT suctionining, VEST therapy * NGT for feeds * Repeat swallow assessment if able to have VSS * CXR and ABG in AM * BiPAP qhs and prn * High risk for recurrent respiratory failure and reintubation and discussed with the patient's family previously * If gets reintubated, will need trach placement * Good pulmonary hygiene: duonebs and mucomyst q4 * Discussed with patient's outpatient primary, Dr. Oliveros. She had recurrent PE as outpatient. Cont eliquis 5 mg bid and monitor H/H * Assess for d/c planning to LTACH vs subacute facility or family may take patient AMA Critical Care - Objective Last 24 Hour Vital Signs Date Time Temp Pulse Resp B/P (MAP) Pulse Ox O2 Delivery O2 Flow Rate FiO2 08/27/19 07:31 84 20 100 Venturi Mask 8.0 40 86 20 98 08/27/19 06:00 75 20 91/57 (68) 08/27/19 05:25 75 25 100 Full Face 40 08/27/19 05:00 78 19 114/52 (72) 70 08/27/19 04:00 Venturi Mask 8.0 Bi-pap 08/27/19 04:00 79 08/27/19 04:00 40 08/27/19 04:00 99.0 79 105/48 (67) 100 2/5/20 03:27 93 21 100 Bi-Pap 40 08/27/19 03:12 85 19 99 Bi-Pap 40 08/27/19 03:11 85 19 99 Full Face 40 08/27/19 03:00 85 98/73 (81) 97 08/27/19 02:00 78 114/44 (67) 100 08/27/19 01:09 83 22 100 Full Face 40 08/27/19 01:00 86 123/75 (91) 99 08/27/19 00:00 40 08/27/19 00:00 99.2 90 19 108/59 (75) 100 08/27/19 00:00 88 08/27/19 00:00 Venturi Mask 8.0 Venturi Mask 8.0 08/26/19 23:25 98 17 99 Full Face 40 08/26/19 23:21 95 17 100 Bi-Pap 40 08/26/19 23:06 94 21 99 Venturi Mask 8.0 40 08/26/19 23:00 83 18 119/74 (89) 99 08/26/19 22:00 86 19 105/58 (74) 95 08/26/19 21:00 88 22 100/62 (75) 100 08/26/19 20:00 89 08/26/19 20:00 99.0 90 22 96/65 (75) 100 08/26/19 20:00 8.0 40 08/26/19 20:00 Venturi Mask 8.0 Venturi Mask 8.0 08/26/19 19:51 80 21 100 Venturi Mask 8.0 40 08/26/19 19:36 100 Venturi Mask 8.0 40 08/26/19 19:36 85 25 100 Venturi Mask 8.0 40 08/26/19 19:00 79 17 108/56 (73) 100 08/26/19 18:00 86 19 101/53 (69) 99 08/26/19 17:00 98.4 84 16 91/53 (66) 97 08/26/19 16:04 89 08/26/19 16:00 Venturi Mask 8.0 Venturi Mask 8.0 08/26/19 16:00 89 19 102/63 (76) 100 08/26/19 16:00 8.0 40 08/26/19 15:30 86 23 100 Venturi Mask 8.0 40 85 19 100 08/26/19 15:29 82 19 100 Venturi Mask 8.0 40 08/26/19 15:00 79 16 92/48 (63) 92 08/26/19 14:00 83 16 97/52 (67) 96 08/26/19 13:00 83 15 99/45 (63) 98 08/26/19 12:00 Venturi Mask 8.0 Venturi Mask 8.0 08/26/19 12:00 98.2 88 23 94/67 (76) 96 08/26/19 12:00 8.0 40 08/26/19 12:00 86 08/26/19 11:00 89 23 105/50 (68) 96 08/26/19 10:51 81 17 100 Venturi Mask 8.0 40 78 19 99 08/26/19 10:00 85 22 91/42 (58) 100 08/26/19 09:00 82 16 94/49 (64) 100 Status: awake Lungs: rhonchi Heart: HR/BP stable Abdomen: soft, non-tender Extremities: edema Micro: Microbiology Date/Time Source Procedure Growth Status 08/25/19 20:20 Blood Blood Culture - Preliminary NO GROWTH AFTER 24 HOURS Resulted 08/25/19 20:00 Blood Blood Culture - Preliminary NO GROWTH AFTER 24 HOURS Resulted Accucheck: 114 Critical Care - Subjective ROS Limited/Unobtainable: Yes Interval Events: Less secretions. Needing venturi mask 40%. No fevers. FI02: 40 Vent Support Breath Rate: 14 Vent Support Mode: BiLevel Vent Tidal Volume: 400 Sputum Amount: None PEEP: 5.0 PIP: 22 Tube Feeding Amount: 0 I&O: Intake and Output 08/26/19 08/27/19 19:00 07:00 Intake Total 1765.000 ml 400 ml Output Total 535 ml 650 ml Balance 1230.000 ml -250 ml Intake Free Water 460 ml 200 ml IV Total 605.000 ml Tube Feeding 650 ml 200 ml Other 50 ml Output Urine Total 535 ml 650 ml ET-Tube: 7.5 ET Position: 23 Walker Bonilla MD Aug 27, 2019 08:58
--- NOTE | 2019-08-27 09:10 | NUR ---
NURSE NOTES: Notified Dr. Masters regarding potassium=3.3, received order for x1 k-due 40meq NGT.
--- NOTE | 2019-08-27 09:10 | General Progress Note ---
Assessment/Plan Problem List: (1) Spina bifida ICD Codes: Q05.9 - Spina bifida, unspecified SNOMED: 24220836 Qualifiers: Qualified Codes: Q05.4 - Unspecified spina bifida with hydrocephalus (2) Respiratory failure with hypoxia ICD Codes: J96.91 - Respiratory failure, unspecified with hypoxia SNOMED: 66835197135755922 Qualifiers: Qualified Codes: J96.21 - Acute and chronic respiratory failure with hypoxia (3) Dysphagia ICD Codes: R13.10 - Dysphagia, unspecified SNOMED: 03177040, 604934545 (4) UTI (urinary tract infection) ICD Codes: N39.0 - Urinary tract infection, site not specified SNOMED: 76543027, 979505950 Qualifiers: Qualified Codes: N30.00 - Acute cystitis without hematuria (5) Paraplegia ICD Codes: G82.20 - Paraplegia, unspecified SNOMED: 81471344 (6) Anemia ICD Codes: D64.9 - Anemia, unspecified SNOMED: 470487360 Status: unchanged Assessment/Plan: extubated on BIPAP at night on venti mask 40% ppi repeat labs fu H&H stool ob neg x1 reglan NGTF for now will need peg but family refusing pending VAS for today abx per ID fu pulm recs will fu Subjective ROS Limited/Unobtainable: No Allergies: Coded Allergies: LATEX (Verified Allergy, Severe, Rash on skin, 08/19/19) PENICILLIN G (Verified Allergy, Unknown, 12/02/18) Tolerates cabapenem, cephalosporin PENICILLINS (Unverified Allergy, Unknown, 12/02/18) Objective Last 24 Hour Vital Signs Date Time Temp Pulse Resp B/P (MAP) Pulse Ox O2 Delivery O2 Flow Rate FiO2 08/27/19 07:31 84 20 100 Venturi Mask 8.0 40 86 20 98 08/27/19 06:00 75 20 91/57 (68) 08/27/19 05:25 75 25 100 Full Face 40 08/27/19 05:00 78 19 114/52 (72) 70 08/27/19 04:00 Venturi Mask 8.0 Bi-pap 08/27/19 04:00 79 08/27/19 04:00 40 08/27/19 04:00 99.0 79 105/48 (67) 100 08/27/19 03:27 93 21 100 Bi-Pap 40 08/27/19 03:12 85 19 99 Bi-Pap 40 08/27/19 03:11 85 19 99 Full Face 40 08/27/19 03:00 85 98/73 (81) 97 08/27/19 02:00 78 114/44 (67) 100 08/27/19 01:09 83 22 100 Full Face 40 08/27/19 01:00 86 123/75 (91) 99 08/27/19 00:00 40 08/27/19 00:00 99.2 90 19 108/59 (75) 100 08/27/19 00:00 88 08/27/19 00:00 Venturi Mask 8.0 Venturi Mask 8.0 08/26/19 23:25 98 17 99 Full Face 40 08/26/19 23:21 95 17 100 Bi-Pap 40 08/26/19 23:06 94 21 99 Venturi Mask 8.0 40 08/26/19 23:00 83 18 119/74 (89) 99 08/26/19 22:00 86 19 105/58 (74) 95 08/26/19 21:00 88 22 100/62 (75) 100 08/26/19 20:00 89 08/26/19 20:00 99.0 90 22 96/65 (75) 100 08/26/19 20:00 8.0 40 08/26/19 20:00 Venturi Mask 8.0 Venturi Mask 8.0 08/26/19 19:51 80 21 100 Venturi Mask 8.0 40 08/26/19 19:36 100 Venturi Mask 8.0 40 08/26/19 19:36 85 25 100 Venturi Mask 8.0 40 08/26/19 19:00 79 17 108/56 (73) 100 08/26/19 18:00 86 19 101/53 (69) 99 08/26/19 17:00 98.4 84 16 91/53 (66) 97 08/26/19 16:04 89 08/26/19 16:00 Venturi Mask 8.0 Venturi Mask 8.0 08/26/19 16:00 89 19 102/63 (76) 100 08/26/19 16:00 8.0 40 08/26/19 15:30 86 23 100 Venturi Mask 8.0 40 85 19 100 08/26/19 15:29 82 19 100 Venturi Mask 8.0 40 08/26/19 15:00 79 16 92/48 (63) 92 08/26/19 14:00 83 16 97/52 (67) 96 08/26/19 13:00 83 15 99/45 (63) 98 08/26/19 12:00 Venturi Mask 8.0 Venturi Mask 8.0 08/26/19 12:00 98.2 88 23 94/67 (76) 96 08/26/19 12:00 8.0 40 08/26/19 12:00 86 08/26/19 11:00 89 23 105/50 (68) 96 08/26/19 10:51 81 17 100 Venturi Mask 8.0 40 78 19 99 08/26/19 10:00 85 22 91/42 (58) 100 Intake and Output 08/26/19 08/27/19 19:00 07:00 Intake Total 1765.000 ml 400 ml Output Total 535 ml 650 ml Balance 1230.000 ml -250 ml Intake Free Water 460 ml 200 ml IV Total 605.000 ml Tube Feeding 650 ml 200 ml Other 50 ml Output Urine Total 535 ml 650 ml Laboratory Tests 08/27/19 04:30: White Blood Count 13.6H, Red Blood Count 3.40L, Hemoglobin 8.6L, Hematocrit 25.4L, Mean Corpuscular Volume 75L, Mean Corpuscular Hemoglobin 25.2L, Mean Corpuscular Hemoglobin Concent 33.7, Red Cell Distribution Width 20.8H, Platelet Count 276, Mean Platelet Volume 5.4L, Neutrophils (%) (Auto) 75.9H, Lymphocytes (%) (Auto) 15.8L, Monocytes (%) (Auto) 5.4, Eosinophils (%) (Auto) 2.7, Basophils (%) (Auto) 0.3, Sodium Level 138, Potassium Level 3.3L, Chloride Level 99, Carbon Dioxide Level 34H, Anion Gap 5, Blood Urea Nitrogen 12, Creatinine 0.4L, Estimat Glomerular Filtration Rate > 60, Glucose Level 109H, Calcium Level 8.2L Height (Feet): 4 Height (Inches): 10.00 Weight (Pounds): 118 General Appearance: lethargic EENT: normal ENT inspection Neck: supple Cardiovascular: normal rate Respiratory/Chest: decreased breath sounds Abdomen: normal bowel sounds, non tender, soft Extremities: non-tender Tim Davis MD Aug 27, 2019 09:10
[2019-08-27] MEDS: Eliquis 5mg tablet NGT SCH ×2 (09:16→18:12)
[2019-08-27] MEDS: Pantoprazole Inj IV SCH (09:16)
[2019-08-27] MEDS: Depakote 125mg Sprinkles NG SCH ×2 (09:16→20:52)
[2019-08-27] MEDS: Ciprofloxacin 500mg tab NG SCH ×2 (09:16→20:51)
[2019-08-27] MEDS ORDERED: NS 275ml ONE (10:17)
--- NOTE | 2019-08-27 10:19 | NUR ---
RD ASSESSMENT & RECOMMENDATIONS SEE CARE ACTIVITY FOR COMPLETE ASSESSMENT DAILY ESTIMATED NEEDS: Needs based on wound, Pulmonary/ 47.6kg abw 25-30 kcals/kg 8643-3103 total kcals 1.25-2 g protein/kg 60-95 g total protein 25-30 mL/kg 6580-3065 total fluid mLs NUTRITION DIAGNOSIS: * Increased kcal/pro needs r/t wound healing as evidenced by h/o spina bifida, adm w/ full thickness wound @ sacrum and resolving pressure injury @ R-ischium. * Swallowing difficulty R/T respiratory status as evidenced by re-intubated, now extubated, on and off BIPAP, w/ an order for NGT insertion + NGT feeds. CURRENT TF:Vital 1.2 @ 50ml/hr x 24 hrs ENTERAL NUTRITION RECOMMENDATIONS: Glucerna 1.5 @ 55ml/hr x 16 hrs to provide 880ml, 1320kcal, 73g prot, 668ml free water - Rec TF change to Glucerna 1.5 to meet est needs during limited time : rec TF to run 16 hrs to account for TF held time during HS BIPAP usage - Initiate Glucerna 1.5 @ 35ml/hr x hrs, advance 10ml q 4-6 hrs as tolerated to goal rate - HOB over 30 degrees. - H20 flush of 200ml q 6hrs ADDITIONAL RECOMMENDATIONS: 1) Wound care: add GREGG in 4oz H2O BID via NGT Add MVI x 1, VIT C 500mg daily 2) Maintain calibrated bed scale wts 3) NISS for BG control on TF - h/o DM 4) Monitor lytes daily, replete as needed. 5) Rec TF change as above- TF to run 16 hrs to account for TF hold time during HS BIPAP usage.
--- NOTE | 2019-08-27 11:32 | NUR ---
NURSE NOTES: Per RD recommendation, changed tube feeding to glucerna 1.5@55ml/hr for 16 hours only. TF to be held while patient is on BIPAP at night, midnight to 0800AM. Discussed with Dr. Bonilla and Dr. Masters.
--- NOTE | 2019-08-27 11:54 | Infectious Diseases Prog Note ---
Assessment/Plan Assessment/Plan Assessment: Sepsis Gram positive bacteremia- suspect PICC line infection -08/22 Bcx 2/4 S.epi; 2/ bcx Picc NTD, peripheral GPC clusters Recurrent aspiration pneumonia -08/25 CXR:Suspicion of slightly worsening CHF -08/22 cXR: Possible mild pulmonary vascular congestion. No change from the prior study -08/21 sp cx S. aureus, MDR PsA (S Amikacin, Cipro/levo; R Cefepime, Meropenem) -08/18 cXR: The lungs remain clear. There may be some minimal basal atelectasis -08/14 CXR: Cardiomegaly. Mild interstitial congestion, unchanged over 3 days -07/31, 08/01 sp cx normal resp sunny -07/12 sp cx normal -07/12 SP FLEXIBLE FIBEROPTIC BRONCHOSCOPY WITH BRONCHOALVEOLAR LAVAGE AND THERAPEUTIC ASPIRATION OF MUCOUS PLUG LEFT LUNG -07/11/20 CXR: Bilateral pulmonary edema/infiltrates. Possible small pleural effusions. Fever, recurrent; improving Leukocytosis, recurrent; improving Recurrent hypoxic respiratory failure 2ry to above -sp intubation 07/31/19 and extubation 08/11/19 -s/p intubation 07/12/19 and extubation 07/19/19 UTI , recurrent -08/21 u/a wbc tnct, nit neg, leuk large; ucx >100k PsA (I Cefepime, Levaquin ; S Imipenem, Cipro) -08/11 ucx C. parapsilosis (colinzer) - 07/12 Ucx PsA (R Ceftazidime, levaquin; I Ciprofloxacin; otherwise S), VRE ( S Amp, linezolid) -07/11/19 u/a wbc tntc, nit neg, leuk +3; ucx PsA, ESBL E.coli, P. mirabilis S. mitis bacteremia- likely contaminant -07/28 Bcx 07/26 S. mitis; 07/29, 08/01, 08/03 Bcx neg HTN Dm2 spina bifida s/p [facility] shunt decubiti ulcers wheelchair bound/paraplegic b/l renal stents neurogenic bladder s/p suprapubic catheter recurrent UTIs Plan: -Continue Meropenem #4/7-10 and PO Cipro #2 (abx d #5) -Continue IV Vancomycin #4 for S. aureus PNA and bacteremia -3 SP Amikacin #4 -2/ SP Cefepime and Flagyl #3 -08/11 SP Linezolid and Meropenem #15 -08/06 SP Micafungin #4 -f/u cx -Monitor CBC/CMP, temperatures -aspiration precautions -GI, pulm f/u -speech therapy recommending PEG, family is refusing -f/u Bcx x2 (peripheral and pICC line) -remove PICC line Thank you for this consultation. Will continue to follow along with you. Discussed with RN Subjective Allergies: Coded Allergies: LATEX (Verified Allergy, Severe, Rash on skin, 08/19/19) PENICILLIN G (Verified Allergy, Unknown, 12/02/18) Tolerates cabapenem, cephalosporin PENICILLINS (Unverified Allergy, Unknown, 12/02/18) Subjective afebrile in 36hrs wbc improving Objective Vital Signs Last 24 Hour Vital Signs Date Time Temp Pulse Resp B/P (MAP) Pulse Ox O2 Delivery O2 Flow Rate FiO2 08/27/19 11:08 87 20 100 Venturi Mask 8.0 40 88 22 96 08/27/19 10:00 85 18 102/82 (89) 92 08/27/19 09:00 77 15 95/43 (60) 98 08/27/19 08:00 80 08/27/19 08:00 8.0 40 08/27/19 08:00 80 21 97/49 (65) 94 08/27/19 08:00 Venturi Mask 8.0 Venturi Mask 8.0 08/27/19 07:31 84 20 100 Venturi Mask 8.0 40 86 20 98 08/27/19 07:15 98 Venturi Mask 8.0 40 08/27/19 07:00 98.6 73 21 101/50 (67) 93 08/27/19 06:00 75 20 91/57 (68) 08/27/19 05:25 75 25 100 Full Face 40 08/27/19 05:00 78 19 114/52 (72) 70 08/27/19 04:00 Venturi Mask 8.0 Bi-pap 08/27/19 04:00 79 08/27/19 04:00 40 08/27/19 04:00 99.0 79 105/48 (67) 100 08/27/19 03:27 93 21 100 Bi-Pap 40 08/27/19 03:12 85 19 99 Bi-Pap 40 08/27/19 03:11 85 19 99 Full Face 40 08/27/19 03:00 85 98/73 (81) 97 08/27/19 02:00 78 114/44 (67) 100 08/27/19 01:09 83 22 100 Full Face 40 08/27/19 01:00 86 123/75 (91) 99 08/27/19 00:00 40 08/27/19 00:00 99.2 90 19 108/59 (75) 100 08/27/19 00:00 88 08/27/19 00:00 Venturi Mask 8.0 Venturi Mask 8.0 08/26/19 23:25 98 17 99 Full Face 40 08/26/19 23:21 95 17 100 Bi-Pap 40 08/26/19 23:06 94 21 99 Venturi Mask 8.0 40 08/26/19 23:00 83 18 119/74 (89) 99 08/26/19 22:00 86 19 105/58 (74) 95 08/26/19 21:00 88 22 100/62 (75) 100 08/26/19 20:00 89 08/26/19 20:00 99.0 90 22 96/65 (75) 100 08/26/19 20:00 8.0 40 08/26/19 20:00 Venturi Mask 8.0 Venturi Mask 8.0 08/26/19 19:51 80 21 100 Venturi Mask 8.0 40 08/26/19 19:36 100 Venturi Mask 8.0 40 08/26/19 19:36 85 25 100 Venturi Mask 8.0 40 08/26/19 19:00 79 17 108/56 (73) 100 08/26/19 18:00 86 19 101/53 (69) 99 08/26/19 17:00 98.4 84 16 91/53 (66) 97 08/26/19 16:04 89 08/26/19 16:00 Venturi Mask 8.0 Venturi Mask 8.0 08/26/19 16:00 89 19 102/63 (76) 100 08/26/19 16:00 8.0 40 08/26/19 15:30 86 23 100 Venturi Mask 8.0 40 85 19 100 08/26/19 15:29 82 19 100 Venturi Mask 8.0 40 08/26/19 15:00 79 16 92/48 (63) 92 08/26/19 14:00 83 16 97/52 (67) 96 08/26/19 13:00 83 15 99/45 (63) 98 08/26/19 12:00 Venturi Mask 8.0 Venturi Mask 8.0 08/26/19 12:00 98.2 88 23 94/67 (76) 96 08/26/19 12:00 8.0 40 08/26/19 12:00 86 Height (Feet): 4 Height (Inches): 10.00 Weight (Pounds): 118 Objective General Appearance: lethargic EENT: normal ENT inspection Neck: supple Cardiovascular: normal rate Respiratory/Chest: decreased breath sounds Abdomen: normal bowel sounds, non tender, soft Extremities: non-tender Microbiology Date/Time Source Procedure Growth Status 08/25/19 20:20 Blood Blood Culture - Preliminary Resulted 08/25/19 20:00 Blood Blood Culture - Preliminary NO GROWTH AFTER 24 HOURS Resulted Laboratory Tests Test 08/27/19 04:30 White Blood Count 13.6 K/UL (4.8-10.8) H Red Blood Count 3.40 M/UL (4.20-5.40) L Hemoglobin 8.6 G/DL (12.0-16.0) L Hematocrit 25.4 % (37.0-47.0) L Mean Corpuscular Volume 75 FL (80-99) L Mean Corpuscular Hemoglobin 25.2 PG (27.0-31.0) L Mean Corpuscular Hemoglobin Concent 33.7 G/DL (32.0-36.0) Red Cell Distribution Width 20.8 % (11.6-14.8) H Platelet Count 276 K/UL (150-450) Mean Platelet Volume 5.4 FL (6.5-10.1) L Neutrophils (%) (Auto) 75.9 % (45.0-75.0) H Lymphocytes (%) (Auto) 15.8 % (20.0-45.0) L Monocytes (%) (Auto) 5.4 % (1.0-10.0) Eosinophils (%) (Auto) 2.7 % (0.0-3.0) Basophils (%) (Auto) 0.3 % (0.0-2.0) Sodium Level 138 MMOL/L (136-145) Potassium Level 3.3 MMOL/L (3.5-5.1) L Chloride Level 99 MMOL/L (98-107) Carbon Dioxide Level 34 MMOL/L (21-32) H Anion Gap 5 mmol/L (5-15) Blood Urea Nitrogen 12 mg/dL (7-18) Creatinine 0.4 MG/DL (0.55-1.30) L Estimat Glomerular Filtration Rate > 60 mL/min (>60) Glucose Level 109 MG/DL (74-106) H Calcium Level 8.2 MG/DL (8.5-10.1) L Current Medications Medications (Trade) Dose Ordered Sig/Sandeep Route PRN Reason Start Time Stop Time Status Last Admin Dose Admin Acetaminophen (Tylenol) 650 mg Q4H PRN NG Mild Pain/Temp > 100.5 08/22/19 10:30 09/21/19 10:29 08/23/19 20:22 Acetylcysteine (Mucomyst) 400 mg Q4HRT [facility] 08/16/19 11:00 09/15/19 10:59 08/27/19 10:53 Albuterol/ Ipratropium (Albuterol/ Ipratropium) 3 ml Q4HRT [facility] 08/22/19 15:00 08/27/19 14:59 08/27/19 10:53 Apixaban (Eliquis) 5 mg BID [facility] 08/16/19 09:00 09/11/19 17:59 08/27/19 09:16 Chlorhexidine Gluconate (Debora-Hex 2%) 1 applic DAILY@1999 TOPIC 08/13/19 20:00 09/12/19 19:59 08/26/19 20:22 Ciprofloxacin (Cipro 500mg tab) 500 mg EVERY 12 HOURS NG 08/25/19 21:00 09/01/19 20:59 08/27/19 09:16 Divalproex Sodium (Depakote Sprinkles) 500 mg Q12HR NG 08/15/19 21:00 09/14/19 20:59 08/27/19 09:16 Meropenem 1 gm/ Sodium Chloride 55 ml @ 110 mls/hr Q8HR IVPB 08/23/19 14:00 09/01/19 13:59 08/27/19 05:59 Metoclopramide HCl (Reglan) 5 mg Q6H PRN IVP Nausea & Vomiting 08/04/19 10:00 09/03/19 09:59 Pantoprazole (Protonix) 40 mg DAILY IV 08/01/19 09:00 08/31/19 08:59 08/27/19 09:16 Polyethylene Glycol (Miralax) 17 gm BEDTIME ORAL 08/20/19 21:00 09/19/19 20:59 08/25/19 20:30 Vancomycin HCl (Vanco rx to dose) 1 ea DAILY PRN MISC Per rx protocol 08/23/19 09:45 09/22/19 09:44 Vancomycin HCl 750 mg/Dextrose 275 ml @ 183.333 mls/hr Q8H IVPB 08/25/19 00:30 09/01/19 00:29 08/27/19 09:16 Joaquina Hill M.D. Aug 27, 2019 11:54
--- NOTE | 2019-08-27 12:35 | NUR ---
NURSE NOTES: Removed PICC on left upper arm as per Dr. Hill and collected catheter tip for culture. Pressure applied for 5 minutes until no bleeding noted, dressings applied. Obtained IV foot access order per Dr. Hill. Inserted new 20G IV on left foot, patent and asymptomatic.
--- NOTE | 2019-08-27 13:10 | Internal Med Progress Note ---
Subjective Date of Service: Aug 27, 2019 Physician Name Niraj Teixeira Attending Physician Wil Masters MD Current Medications Medications (Trade) Dose Ordered Sig/Sandeep Route PRN Reason Start Time Stop Time Status Last Admin Dose Admin Acetaminophen (Tylenol) 650 mg Q4H PRN NG Mild Pain/Temp > 100.5 08/22/19 10:30 09/21/19 10:29 08/23/19 20:22 Acetylcysteine (Mucomyst) 400 mg Q4HRT [facility] 08/16/19 11:00 09/15/19 10:59 08/27/19 10:53 Albuterol/ Ipratropium (Albuterol/ Ipratropium) 3 ml Q4HRT [facility] 08/22/19 15:00 08/27/19 14:59 08/27/19 10:53 Apixaban (Eliquis) 5 mg BID NGT 08/16/19 09:00 09/11/19 17:59 08/27/19 09:16 Chlorhexidine Gluconate (Debora-Hex 2%) 1 applic DAILY@2000 TOPIC 08/13/19 20:00 09/12/19 19:59 08/26/19 20:22 Ciprofloxacin (Cipro 500mg tab) 500 mg EVERY 12 HOURS NG 08/25/19 21:00 09/01/19 20:59 08/27/19 09:16 Divalproex Sodium (Depakote Sprinkles) 500 mg Q12HR NG 08/15/19 21:00 09/14/19 20:59 08/27/19 09:16 Meropenem 1 gm/ Sodium Chloride 55 ml @ 110 mls/hr Q8HR IVPB 08/23/19 14:00 09/01/19 13:59 08/27/19 05:59 Metoclopramide HCl (Reglan) 5 mg Q6H PRN IVP Nausea & Vomiting 08/04/19 10:00 09/03/19 09:59 Pantoprazole (Protonix) 40 mg DAILY IV 08/01/19 09:00 08/31/19 08:59 08/27/19 09:16 Polyethylene Glycol (Miralax) 17 gm BEDTIME ORAL 08/20/19 21:00 09/19/19 20:59 08/25/19 20:30 Potassium Chloride (K-Dur) 40 meq ONCE NG 08/27/19 14:00 08/27/19 15:30 Vancomycin HCl (Vanco rx to dose) 1 ea DAILY PRN MISC Per rx protocol 08/23/19 09:45 09/22/19 09:44 Vancomycin HCl 750 mg/Dextrose 275 ml @ 183.333 mls/hr Q8H IVPB 08/25/19 00:30 09/01/19 00:29 08/27/19 09:16 Allergies: Coded Allergies: LATEX (Verified Allergy, Severe, Rash on skin, 08/19/19) PENICILLIN G (Verified Allergy, Unknown, 12/02/18) Tolerates cabapenem, cephalosporin PENICILLINS (Unverified Allergy, Unknown, 12/02/18) ROS Limited/Unobtainable: Yes Subjective 49 YO F with pneumonia and respiratory failure. Extubated 08/11/19. Cover for Int Conor-DR Masters. ICU. Tolerating venturi mask Objective Last Vital Signs Date Time Temp Pulse Resp B/P (MAP) Pulse Ox O2 Delivery O2 Flow Rate FiO2 08/27/19 11:08 87 20 100 Venturi Mask 8.0 40 88 22 96 08/27/19 10:00 102/82 (89) 08/27/19 07:00 98.6 Laboratory Tests Test 08/27/19 04:30 White Blood Count 13.6 K/UL (4.8-10.8) H Red Blood Count 3.40 M/UL (4.20-5.40) L Hemoglobin 8.6 G/DL (12.0-16.0) L Hematocrit 25.4 % (37.0-47.0) L Mean Corpuscular Volume 75 FL (80-99) L Mean Corpuscular Hemoglobin 25.2 PG (27.0-31.0) L Mean Corpuscular Hemoglobin Concent 33.7 G/DL (32.0-36.0) Red Cell Distribution Width 20.8 % (11.6-14.8) H Platelet Count 276 K/UL (150-450) Mean Platelet Volume 5.4 FL (6.5-10.1) L Neutrophils (%) (Auto) 75.9 % (45.0-75.0) H Lymphocytes (%) (Auto) 15.8 % (20.0-45.0) L Monocytes (%) (Auto) 5.4 % (1.0-10.0) Eosinophils (%) (Auto) 2.7 % (0.0-3.0) Basophils (%) (Auto) 0.3 % (0.0-2.0) Sodium Level 138 MMOL/L (136-145) Potassium Level 3.3 MMOL/L (3.5-5.1) L Chloride Level 99 MMOL/L (98-107) Carbon Dioxide Level 34 MMOL/L (21-32) H Anion Gap 5 mmol/L (5-15) Blood Urea Nitrogen 12 mg/dL (7-18) Creatinine 0.4 MG/DL (0.55-1.30) L Estimat Glomerular Filtration Rate > 60 mL/min (>60) Glucose Level 109 MG/DL (74-106) H Calcium Level 8.2 MG/DL (8.5-10.1) L Microbiology Date/Time Source Procedure Growth Status 08/25/19 20:20 Blood Blood Culture - Preliminary Resulted 08/25/19 20:00 Blood Blood Culture - Preliminary NO GROWTH AFTER 24 HOURS Resulted Intake and Output 08/26/19 08/27/19 19:00 07:00 Intake Total 1765.000 ml 400 ml Output Total 535 ml 650 ml Balance 1230.000 ml -250 ml Intake Free Water 460 ml 200 ml IV Total 605.000 ml Tube Feeding 650 ml 200 ml Other 50 ml Output Urine Total 535 ml 650 ml Objective General Appearance: WD/WN, moderate distress EENT: PERRL/EOMI, normal ENT inspection Neck: non-tender, normal alignment, supple Cardiovascular: normal peripheral pulses, normal rate, regular rhythm, no gallop/murmur, no JVD Respiratory/Chest: Venturi mask; crackles/rales, rhonchi - bilaterally, expiratory wheezing Abdomen: normal bowel sounds, non tender, soft, no organomegaly, no mass Skin: normal pigmentation, warm/dry Assessment/Plan Problem List: (1) Respiratory failure with hypoxia Assessment & Plan: Tolerating venturi mask. S/P extubation 08/11/19 per pulmonary=Dr Bonilla (2) Pneumonia of both lower lobes Assessment & Plan: See ID note. S/P meropenem and zyvox. Continue meropenem, amikacin and vanco. (3) UTI (urinary tract infection) Assessment & Plan: Pseudamonas, ESBL E. Coli, and vanco resistant enterococcus. See ID note; Dr Sanabria signed off. Await new ID consult= Dr Buck/Milly. S/P meropenem, linezolid and micafugin (4) Sepsis (5) Paraplegia (6) Spina bifida Niraj Teixeira MD Aug 27, 2019 13:10
[2019-08-27] MEDS ORDERED: Varibar Honey 250ml MC PRN (13:45)
[2019-08-27] MEDS ORDERED: Varibar Pudding 230ml MC PRN (13:45)
[2019-08-27] MEDS ORDERED: Varibar Nectar 240ml MC PRN (13:45)
--- NOTE | 2019-08-27 14:20 | NUR ---
NURSE NOTES: Video swallow rescheduled for tomorrow AM instead. Dr. Bonilla notified.
--- NOTE | 2019-08-27 14:24 | NUR ---
ST NOTES: PER RN, DR MONDRAGON WANTS PATIENT TO HAVE A MODIFIED BARIUM SWALLOW STUDY TODAY SINCE THE PATIENT HAS LESS OROPHARYNGEAL SECRETIONS. UNABLE TO COMPLETE THE STUDY TODAY DUE TO SCHEDULING CONFLICTS WITH RADIOLOGY. PLAN: CONTINUE WITH NGT AND ORAL CARE/SUCTION PRN MOD BARIUM SWALLOW STUDY TOMORROW IF SCHEDULE ALLOWS. D/W EMMA LEIGH WHO TOLD DR MONDRAGON Addendum: 08/27/19 at 1427 by JOSÉ JAMES CONTINUOUS PICKLING LINE PICKLER HELPER THE PATIENT IS SLEEPY NOW. SHE NEEDS TO HAVE AN XRAY STUDY NOT A BEDSIDE SWALLOW EVAL SINCE SHE HAS A HIGH RISK FOR SILENT ASPIRATION.
--- NOTE | 2019-08-27 16:00 | NUR ---
NURSE NOTES: Turned and repositioned. kept dry and clean. no signs of distress noted.
--- NOTE | 2019-08-27 19:00 | NUR ---
HAND-OFF: Report given to EMMA Mesa.
--- NOTE | 2019-08-27 19:30 | NUR ---
NURSE NOTES: Received pt awake AOx2 on 40% ventimask, Sr on the monitor. Bp stable afebrile. 02 sat 100%. Suctioned tk beige secretions moderate in amt , HOB on semi fowlers position. Watch for any resp. distress.. Pts with healed old wounds but still with small skin tear on the sacral area. covered with optifoam. On P 200 mattress. Turned q 2hrs prn with good skin care done. Tolerated NGT fdg at this time. HOB kept elevated. On aspiration precaution. Will continue to monitor.
[2019-08-27] MEDS: Miralax 17gm pkt ORAL SCH (20:52)
--- NOTE | 2019-08-27 21:00 | NUR ---
NURSE NOTES: Family at bedside, updated with pts condition, verbalized understanding.
--- NOTE | 2019-08-27 23:00 | NUR ---
NURSE NOTES: Pt had yellowish diarrhea , cleaned up pt. sacral drsg was changed.
--- NOTE | 2019-08-27 23:30 | NUR ---
NURSE NOTES: Placed on BIPAP machine by RT. 06/28 and 40% fio2. Instructed not to keep taking off mask. nod for understanding.
[2019-08-28] VITALS (25 sets, daily range): BP systolic 66–120; BP diastolic 37–77
[2019-08-28] MEDS: Vancomycin 750mg/D5W 275ml IVPB SCH ×4 (00:13→09:09)
--- NOTE | 2019-08-28 02:00 | NUR ---
NURSE NOTES: Suctioned tk beige secretions lg in amt. 02 sat 100%
--- NOTE | 2019-08-28 02:15 | Progress Note ---
DATE: 08/27/2019 SUBJECTIVE: The patient is still in intensive care unit. No changes previous encounter. She continues to be having episodes of agitation. MENTAL STATUS EXAMINATION: Alert and oriented x2. Mood is anxious. Affect is flat. Thought process is concrete. Thought content, no suicidal or homicidal ideation. Cognition is impaired. Insight and judgment are impaired. ASSESSMENT: Developmental disability, cognitive impairment, agitation. PLAN: 1. Continue Depakote 500 mg twice a day. 2. Continue to follow and readjust the medications. Kobi Reyes M.D. DR: SAVANNA JOB#: [id number] CC: IZAIAH
[2019-08-28] MEDS: Acetylcysteine 20% Soln 4ml HHN SCH ×6 (03:00→22:14)
[2019-08-28 04:51] LABS: BASOPHILS % (AUTO) 0.4 % (0.0-2.0); EOSINOPHILS % (AUTO) 2.6 % (0.0-3.0); HEMATOCRIT 29.2 % (37.0-47.0); HEMOGLOBIN 9.7 G/DL (12.0-16.0); LYMPHOCYTES % (AUTO) 15.3 % (20.0-45.0); MEAN CORPUSCULAR VOLUME 76 FL (80-99); MONOCYTES % (AUTO) 6.1 % (1.0-10.0); NEUTROPHILS % (AUTO) 75.6 % (45.0-75.0); PLATELET COUNT 310 K/UL (150-450); RED BLOOD COUNT 3.86 M/UL (4.20-5.40); RED CELL DISTRIBUTION WIDTH 20.9 % (11.6-14.8); WHITE BLOOD COUNT 15.5 K/UL (4.8-10.8)
--- NOTE | 2019-08-28 04:57 | NUR ---
NURSE NOTES: Pt keep on taking off BIPAP mask. placed pt back to 40% venti mask
[2019-08-28 05:25] LABS: ANION GAP 4 mmol/L (5-15); BLOOD UREA NITROGEN 13 mg/dL (7-18); CALCIUM 8.7 MG/DL (8.5-10.1); CARBON DIOXIDE 34 MMOL/L (21-32); CHLORIDE 98 MMOL/L (98-107); CREATININE 0.4 MG/DL (0.55-1.30); POTASSIUM 4.2 MMOL/L (3.5-5.1); SODIUM 136 MMOL/L (136-145)
--- NOTE | 2019-08-28 06:00 | NUR ---
NURSE NOTES: Resting comfortably VSS.
[2019-08-28] MEDS: Meropenem 1 GM in NS 55 ML IVPB SCH ×3 (06:22→22:52)
--- NOTE | 2019-08-28 07:30 | NUR ---
NURSE NOTES: LATE ENTRY: RECEIVED REPORT FROM NIC Rodriguez PT IN BED, EYES OPEN BRIEFLY TO SHAKING, PUPILS SLUGGISH 3MM. VS: HR 78, BP 108/54, RR 16. GAG HYPOACTIVE. PT ON VENTURI MASK 40% AT 8L, 02SAT 96%. SECRETIONS SMALL HINDS WITH RED SPECKS. LT NARES NGT. GLUCERNA 1.5 RUNNING AT 55ML/HR. ABDOMEN ROUND, NON TENDER. BOWEL SOUNDS HYPOACTIVE. NO BM AT THIS TIME. KNOTT DRAINING PALE URINE. IV SITE LT FOOT 20G. NO S/S OF PAIN, SOB. . AX TEMP 99, COOLING MEASURES IN PLACE. SKIN- SEE ASSESSMENT. CONTACT PRECAUTIONS IN PLACE. BED LOCKED IN LOW POSITION. WILL CONTINUE TO MONITOR PT.
--- NOTE | 2019-08-28 07:33 | NUR ---
HAND-OFF: Report given to Cheryl CARTER.
[2019-08-28] MEDS: Albuterol/Ipratropium 3ml neb HHN SCH ×5 (08:20→22:14)
--- NOTE | 2019-08-28 08:34 | NUR ---
NURSE NOTES: SNAKE CHARMER HERE TO DO CXR
--- NOTE | 2019-08-28 08:48 | Pulmonolgy Critical Care Note ---
Critical Care - Asmt/Plan Assessment/Plan: (1) Pneumonia of both lower lobes Assessment & Plan: VDRF, intubated 07/12/19, S/P FOB 07/12/19; Reintubated ; extubated 08/11/19 (2) Catheter-associated urinary tract infection Assessment & Plan: PsA and proteus - s/p treatment (3) Respiratory failure with hypoxia Assessment & Plan: Acute on chronic hypercapnic and hypoxemic RF 2/2 PNA Duplex neg, minimally elevated d-dimer, unlikely VTE and already on a NOAC (4) HCAP (healthcare-associated pneumonia) (5) Paraplegia (6) Sepsis (7) Suprapubic catheter (8) Restrictive lung disease due to kyphoscoliosis (9) Decubitus skin ulcer (10) Spina bifida (11) Anemia, acute (12) hx recurrent PE on eliquis Plan: * Abx per ID * Wean oxygen as tolerated, BiPAP at night * NT suctionining, VEST therapy * NGT for feeds * Repeat swallow assessment if able to have VSS today * CXR and ABG pending * BiPAP qhs and prn * High risk for recurrent respiratory failure and reintubation and discussed with the patient's family previously * If gets reintubated, will need trach placement * Good pulmonary hygiene: duonebs and mucomyst q4 * Discussed with patient's outpatient primary, Dr. Oliveros. She had recurrent PE as outpatient. Cont eliquis 5 mg bid and monitor H/H * Assess for d/c planning to LTACH vs subacute facility or family may take patient AMA Critical Care - Objective Last 24 Hour Vital Signs Date Time Temp Pulse Resp B/P (MAP) Pulse Ox O2 Delivery O2 Flow Rate FiO2 08/28/19 08:00 79 16 108/54 (72) 92 08/28/19 08:00 8.0 40 08/28/19 07:00 81 19 93/47 (62) 98 08/28/19 06:00 81 20 104/48 (66) 100 08/28/19 05:00 82 20 106/47 (66) 100 08/28/19 04:00 40 08/28/19 04:00 83 08/28/19 04:00 Venturi Mask 8.0 Bi-pap 08/28/19 04:00 98.0 77 24 101/55 (70) 99 08/28/19 03:33 75 17 100 Full Face 40 08/28/19 03:00 74 20 95/49 (64) 100 08/28/19 02:00 74 20 114/64 (81) 94 08/28/19 01:02 95 17 100 Full Face 40 08/28/19 01:00 75 16 105/58 (74) 100 08/28/19 00:00 40 08/28/19 00:00 78 08/28/19 00:00 98.4 78 16 116/70 (85) 100 08/28/19 00:00 Venturi Mask 2.0 Bi-pap 8.0 08/27/19 23:12 89 15 100 Full Face 40 08/27/19 23:00 86 21 110/73 (85) 100 08/27/19 22:53 87 20 100 Venturi Mask 8.0 40 84 17 98 08/27/19 22:00 84 24 111/59 (76) 100 08/27/19 21:00 90 25 129/85 (100) 98 08/27/19 20:00 Venturi Mask 2.0 Venturi Mask 8.0 08/27/19 20:00 98.0 96 23 119/68 (85) 100 08/27/19 19:21 90 21 100 Venturi Mask 8.0 40 92 18 97 08/27/19 19:20 97 Venturi Mask 8.0 40 08/27/19 18:00 88 16 97/51 (66) 91 08/27/19 17:00 83 16 102/47 (65) 90 08/27/19 16:00 98.2 79 16 97/67 (77) 99 08/27/19 16:00 Venturi Mask 8.0 Venturi Mask 8.0 08/27/19 16:00 74 08/27/19 16:00 8.0 40 08/27/19 15:50 86 21 100 Venturi Mask 8.0 40 82 20 100 08/27/19 15:00 80 16 99/56 (70) 99 08/27/19 14:00 80 16 101/67 (78) 99 08/27/19 13:00 80 22 95/28 (50) 95 08/27/19 12:00 82 08/27/19 12:00 Venturi Mask 8.0 Venturi Mask 8.0 08/27/19 12:00 98.6 84 18 93/58 (70) 99 08/27/19 12:00 8.0 40 08/27/19 11:08 87 20 100 Venturi Mask 8.0 40 88 22 96 08/27/19 11:00 89 17 104/44 (64) 94 08/27/19 10:00 85 18 102/82 (89) 92 08/27/19 09:00 77 15 95/43 (60) 98 Status: awake Neck: full ROM Lungs: rhonchi Heart: HR/BP stable Abdomen: soft, non-tender Extremities: edema Micro: Microbiology Date/Time Source Procedure Growth Status 08/25/19 20:20 Blood Blood Culture - Preliminary Staphylococcus Sp Coag Neg Resulted 08/25/19 20:00 Blood Blood Culture - Preliminary NO GROWTH AFTER 48 HOURS Resulted Accucheck: 114 Critical Care - Subjective Interval Events: Cont venturi mask. Cont secretions. Planned VSS today FI02: 40 Vent Support Breath Rate: 14 Vent Support Mode: BiLevel Vent Tidal Volume: 400 Sputum Amount: None PEEP: 5.0 PIP: 22 Tube Feeding Amount: 55 I&O: Intake and Output 08/27/19 08/28/19 19:00 07:00 Intake Total 750 ml 951 ml Output Total 1340 ml 1110 ml Balance -590 ml -159 ml Intake Free Water 160 ml 200 ml IV Total 421 ml Tube Feeding 590 ml 330 ml Output Urine Total 1340 ml 1110 ml # Bowel Movements 3 ET-Tube: 7.5 ET Position: 23 Walker Bonilla MD Aug 28, 2019 08:48
--- NOTE | 2019-08-28 08:54 | NUR ---
NURSE NOTES: MD MONDRAGON HERE TO SEE PT. INFORMED PT VERY DROWSY THIS AM. DOES NOT STAY AWAKE LONG, CXR TAKEN, VIDEO SWALLOW PENDING PT LOC. RECEIVED ORDER FOR ABG, AND WEAN OFF VENTURI MASK.
[2019-08-28] MEDS: Depakote 125mg Sprinkles NG SCH ×2 (09:09→21:02)
[2019-08-28] MEDS: Pantoprazole Inj IV SCH (09:10)
[2019-08-28] MEDS: Eliquis 5mg tablet NGT SCH ×2 (09:10→17:53)
[2019-08-28] MEDS: Ciprofloxacin 500mg tab NG SCH ×2 (09:10→21:02)
--- NOTE | 2019-08-28 09:30 | NUR ---
NURSE NOTES: LATE ENTRY: SPEECH THERAPIST BRENDON, HERE TO SEE IF PT ABLE TO DO VIDEO SWALLOW. PT DROWSY THIS A.M, NOT FOLLOWING COMMANDS. UNSAFE TO CONDUCT STUDY, WILL HOLD PROCEDURE TILL FURTHER NOTICE. MD MONDRAGON AWARE.
--- NOTE | 2019-08-28 10:03 | NUR ---
ST NOTES: SWALLOW STATUS: PATIENT NOT CONSISTENTLY ALERT FOR MODIFIED BARIUM SWALLOW STUDY TODAY. PATRICIO CARTER, AND DR MONDRAGON AWARE AND AGREE TO HOLD ON THIS STUDY. UNABLE TO COMPLETE STUDY TOMORROW (SUNDAY) AND OVER THE WEEKEND DUE TO SCHEDULE ISSUES. WILL TRY ON SUNDAY OR COMPLETE AT DISCHARGE SETTING (DO NOT HOLD UP D/C FOR THIS STUDY). IT IS NOT RECOMMENDED THAT SHE BE CLEARED FOR PO INTAKE WITH A CLINICAL OR BEDSIDE SWALLOW EVALUATION SHE HAS A HIGH RISK FOR SILENT ASPIRATION. HER NEED FOR SUCTIONING IS DECREASED (ONLY MILD NOW) PER RN. PER RT: BiPAP Support Comment PT OFF BIPAP ON VENTI MASK 40% SPO2 98%. EMMA LUCERO AWARE PER PATRICIO CARTER, IF THE PATIENT IS OFF THE VENTURI MASK, SHE WILL DESATURATE. THIS RESPIRATORY ISSUE ALSO INCREASES HER ASPIRATION RISK. PLAN: CONTINUE WITH PLAN OF CARE
--- NOTE | 2019-08-28 11:30 | Infectious Diseases Prog Note ---
Assessment/Plan Assessment/Plan Assessment: Sepsis Gram positive bacteremia- suspect PICC line infection -08/27 PICC line removed; cath tip cx p Bcx p -08/22 Bcx 2/4 S.epi; 08/25 bcx Picc NTD, peripheral CONS Recurrent aspiration pneumonia -08/25 CXR:Suspicion of slightly worsening CHF -08/22 cXR: Possible mild pulmonary vascular congestion. No change from the prior study -08/21 sp cx S. aureus, MDR PsA (S Amikacin, Cipro/levo; R Cefepime, Meropenem) -08/18 cXR: The lungs remain clear. There may be some minimal basal atelectasis -08/14 CXR: Cardiomegaly. Mild interstitial congestion, unchanged over 3 days -07/31, 08/01 sp cx normal resp sunny -07/12 sp cx normal -07/12 SP FLEXIBLE FIBEROPTIC BRONCHOSCOPY WITH BRONCHOALVEOLAR LAVAGE AND THERAPEUTIC ASPIRATION OF MUCOUS PLUG LEFT LUNG -07/11/20 CXR: Bilateral pulmonary edema/infiltrates. Possible small pleural effusions. Fever, recurrent; SP Leukocytosis, recurrent; fluctuating Recurrent hypoxic respiratory failure 2ry to above -sp intubation 07/31/19 and extubation 08/11/19 -s/p intubation 07/12/19 and extubation 07/19/19 UTI , recurrent -08/21 u/a wbc tnct, nit neg, leuk large; ucx >100k PsA (I Cefepime, Levaquin ; S Imipenem, Cipro) -08/11 ucx C. parapsilosis (colinzer) - 07/12 Ucx PsA (R Ceftazidime, levaquin; I Ciprofloxacin; otherwise S), VRE ( S Amp, linezolid) -07/11/19 u/a wbc tntc, nit neg, leuk +3; ucx PsA, ESBL E.coli, P. mirabilis S. mitis bacteremia- likely contaminant -07/28 Bcx 07/26 S. mitis; 07/29, 08/01, 08/03 Bcx neg HTN Dm2 spina bifida s/p ELIGIBILITY CONSULTANT shunt decubiti ulcers wheelchair bound/paraplegic b/l renal stents neurogenic bladder s/p suprapubic catheter recurrent UTIs Plan: -Continue Meropenem #/-10 and PO Cipro #3 (abx d #4) -Continue IV Vancomycin #5 for S. aureus PNA and CONS bacteremia -2/3 SP Amikacin #4 -2/ SP Cefepime and Flagyl #3 -08/11 SP Linezolid and Meropenem #15 -08/06 SP Micafungin #4 -f/u cx -Monitor CBC/CMP, temperatures -aspiration precautions -GI, pulm f/u -speech therapy recommending PEG, family is refusing -f/u Bcx x2 (peripheral and pICC line), cath tip cx Thank you for this consultation. Will continue to follow along with you. Discussed with RN Subjective Allergies: Coded Allergies: LATEX (Verified Allergy, Severe, Rash on skin, 08/19/19) PENICILLIN G (Verified Allergy, Unknown, 12/02/18) Tolerates cabapenem, cephalosporin PENICILLINS (Unverified Allergy, Unknown, 12/02/18) Subjective afebrile in >48hrs wbc fluctuating repeat BCX P picc line removed yesterday Objective Vital Signs Last 24 Hour Vital Signs Date Time Temp Pulse Resp B/P (MAP) Pulse Ox O2 Delivery O2 Flow Rate FiO2 08/28/19 08:35 85 20 100 Venturi Mask 8.0 40 81 20 99 08/28/19 08:19 97 Venturi Mask 8.0 40 08/28/19 08:00 79 16 108/54 (72) 92 08/28/19 08:00 8.0 40 08/28/19 07:00 81 19 93/47 (62) 98 08/28/19 06:00 81 20 104/48 (66) 100 08/28/19 05:00 82 20 106/47 (66) 100 08/28/19 04:00 40 08/28/19 04:00 83 08/28/19 04:00 Venturi Mask 8.0 Bi-pap 08/28/19 04:00 98.0 77 24 101/55 (70) 99 08/28/19 03:33 75 17 100 Full Face 40 08/28/19 03:00 74 20 95/49 (64) 100 08/28/19 02:00 74 20 114/64 (81) 94 08/28/19 01:02 95 17 100 Full Face 40 08/28/19 01:00 75 16 105/58 (74) 100 08/28/19 00:00 40 08/28/19 00:00 78 08/28/19 00:00 98.4 78 16 116/70 (85) 100 08/28/19 00:00 Venturi Mask 2.0 Bi-pap 8.0 08/27/19 23:12 89 15 100 Full Face 40 08/27/19 23:00 86 21 110/73 (85) 100 08/27/19 22:53 87 20 100 Venturi Mask 8.0 40 84 17 98 08/27/19 22:00 84 24 111/59 (76) 100 08/27/19 21:00 90 25 129/85 (100) 98 08/27/19 20:00 Venturi Mask 2.0 Venturi Mask 8.0 08/27/19 20:00 98.0 96 23 119/68 (85) 100 08/27/19 19:21 90 21 100 Venturi Mask 8.0 40 92 18 97 08/27/19 19:20 97 Venturi Mask 8.0 40 08/27/19 18:00 88 16 97/51 (66) 91 08/27/19 17:00 83 16 102/47 (65) 90 08/27/19 16:00 98.2 79 16 97/67 (77) 99 08/27/19 16:00 Venturi Mask 8.0 Venturi Mask 8.0 08/27/19 16:00 74 08/27/19 16:00 8.0 40 08/27/19 15:50 86 21 100 Venturi Mask 8.0 40 82 20 100 08/27/19 15:00 80 16 99/56 (70) 99 08/27/19 14:00 80 16 101/67 (78) 99 08/27/19 13:00 80 22 95/28 (50) 95 08/27/19 12:00 82 08/27/19 12:00 Venturi Mask 8.0 Venturi Mask 8.0 08/27/19 12:00 98.6 84 18 93/58 (70) 99 08/27/19 12:00 8.0 40 Height (Feet): 4 Height (Inches): 10.00 Weight (Pounds): 120 Objective General Appearance: lethargic EENT: normal ENT inspection Neck: supple Cardiovascular: normal rate Respiratory/Chest: decreased breath sounds Abdomen: normal bowel sounds, non tender, soft Extremities: non-tender Microbiology Date/Time Source Procedure Growth Status 08/25/19 20:20 Blood Blood Culture - Preliminary Staphylococcus Sp Coag Neg Resulted 08/25/19 20:00 Blood Blood Culture - Preliminary NO GROWTH AFTER 48 HOURS Resulted 08/27/19 12:20 Other(Specify in comment) Catheter Tip Culture - Preliminary Resulted Laboratory Tests Test 08/28/19 03:00 White Blood Count 15.5 K/UL (4.8-10.8) H Red Blood Count 3.86 M/UL (4.20-5.40) L Hemoglobin 9.7 G/DL (12.0-16.0) L Hematocrit 29.2 % (37.0-47.0) L Mean Corpuscular Volume 76 FL (80-99) L Mean Corpuscular Hemoglobin 25.1 PG (27.0-31.0) L Mean Corpuscular Hemoglobin Concent 33.2 G/DL (32.0-36.0) Red Cell Distribution Width 20.9 % (11.6-14.8) H Platelet Count 310 K/UL (150-450) Mean Platelet Volume 5.5 FL (6.5-10.1) L Neutrophils (%) (Auto) 75.6 % (45.0-75.0) H Lymphocytes (%) (Auto) 15.3 % (20.0-45.0) L Monocytes (%) (Auto) 6.1 % (1.0-10.0) Eosinophils (%) (Auto) 2.6 % (0.0-3.0) Basophils (%) (Auto) 0.4 % (0.0-2.0) Sodium Level 136 MMOL/L (136-145) Potassium Level 4.2 MMOL/L (3.5-5.1) Chloride Level 98 MMOL/L (98-107) Carbon Dioxide Level 34 MMOL/L (21-32) H Anion Gap 4 mmol/L (5-15) L Blood Urea Nitrogen 13 mg/dL (7-18) Creatinine 0.4 MG/DL (0.55-1.30) L Estimat Glomerular Filtration Rate > 60 mL/min (>60) Glucose Level 96 MG/DL (74-106) Calcium Level 8.7 MG/DL (8.5-10.1) Current Medications Medications (Trade) Dose Ordered Sig/Sandeep Route PRN Reason Start Time Stop Time Status Last Admin Dose Admin Acetaminophen (Tylenol) 650 mg Q4H PRN NG Mild Pain/Temp > 100.5 08/22/19 10:30 09/21/19 10:29 08/23/19 20:22 Acetylcysteine (Mucomyst) 400 mg Q4HRT HHN 08/16/19 11:00 09/15/19 10:59 08/28/19 08:20 Albuterol/ Ipratropium (Albuterol/ Ipratropium) 3 ml Q4HRT HHN 08/27/19 19:00 09/01/19 18:59 08/28/19 08:20 Apixaban (Eliquis) 5 mg BID NGT 08/16/19 09:00 09/11/19 17:59 08/28/19 09:10 Barium Sulfate (Varibar Honey) 250 ml NOW PRN MC RAD 08/27/19 13:45 08/30/19 13:34 Barium Sulfate (Varibar [place]) 240 ml NOW PRN MC RAD 08/27/19 13:45 08/30/19 13:34 Barium Sulfate (Varibar Pudding) 230 ml NOW PRN MC RAD 08/27/19 13:45 08/30/19 13:34 Ciprofloxacin (Cipro 500mg tab) 500 mg EVERY 12 HOURS NG 08/25/19 21:00 09/01/19 20:59 08/28/19 09:10 Divalproex Sodium (Depakote Sprinkles) 500 mg Q12HR NG 08/15/19 21:00 09/14/19 20:59 08/28/19 09:09 Meropenem 1 gm/ Sodium Chloride 55 ml @ 110 mls/hr Q8HR IVPB 08/23/19 14:00 09/01/19 13:59 08/28/19 06:22 Metoclopramide HCl (Reglan) 5 mg Q6H PRN IVP Nausea & Vomiting 08/04/19 10:00 09/03/19 09:59 Pantoprazole (Protonix) 40 mg DAILY IV 08/01/19 09:00 08/31/19 08:59 08/28/19 09:10 Polyethylene Glycol (Miralax) 17 gm BEDTIME ORAL 08/20/19 21:00 09/19/19 20:59 08/25/19 20:30 Vancomycin HCl (Vanco rx to dose) 1 ea DAILY PRN MISC Per rx protocol 08/23/19 09:45 09/22/19 09:44 Vancomycin HCl 750 mg/Dextrose 275 ml @ 183.333 mls/hr Q8H IVPB 08/25/19 00:30 09/01/19 00:29 08/28/19 09:09 Joaquina Hill M.D. Aug 28, 2019 11:30
--- NOTE | 2019-08-28 12:07 | GI Progress Note ---
Assessment/Plan Problems: (1) Paraplegia ICD Codes: G82.20 - Paraplegia, unspecified SNOMED: 11284173 (2) At risk for aspiration pneumonia ICD Codes: Z91.89 - Other specified personal risk factors, not elsewhere classified SNOMED: 884525891 Status: unchanged Status Narrative Discussed with Dr. Davis. Assessment/Plan extubated on BIPAP at night on venti mask 40% stool ob neg x1 reglan NGTF for now will need peg but family refusing abx per ID fu pulm recs ppi repeat labs fu H&H will follow up The patient was seen and examined at bedside and all new and available data was reviewed in the patients chart. I agree with the above findings, impression and plan. (Patient seen earlier today. Signature stamp does not reflect patient encounter time.). - Tim Davis MD Subjective Subjective limited Objective Last 24 Hour Vital Signs Date Time Temp Pulse Resp B/P (MAP) Pulse Ox O2 Delivery O2 Flow Rate FiO2 08/28/19 08:35 85 20 100 Venturi Mask 8.0 40 81 20 99 08/28/19 08:19 97 Venturi Mask 8.0 40 08/28/19 08:00 79 16 108/54 (72) 92 08/28/19 08:00 8.0 40 08/28/19 07:00 81 19 93/47 (62) 98 08/28/19 06:00 81 20 104/48 (66) 100 08/28/19 05:00 82 20 106/47 (66) 100 08/28/19 04:00 40 08/28/19 04:00 83 08/28/19 04:00 Venturi Mask 8.0 Bi-pap 08/28/19 04:00 98.0 77 24 101/55 (70) 99 08/28/19 03:33 75 17 100 Full Face 40 08/28/19 03:00 74 20 95/49 (64) 100 08/28/19 02:00 74 20 114/64 (81) 94 08/28/19 01:02 95 17 100 Full Face 40 08/28/19 01:00 75 16 105/58 (74) 100 08/28/19 00:00 40 08/28/19 00:00 78 08/28/19 00:00 98.4 78 16 116/70 (85) 100 08/28/19 00:00 Venturi Mask 2.0 Bi-pap 8.0 08/27/19 23:12 89 15 100 Full Face 40 08/27/19 23:00 86 21 110/73 (85) 100 08/27/19 22:53 87 20 100 Venturi Mask 8.0 40 84 17 98 08/27/19 22:00 84 24 111/59 (76) 100 08/27/19 21:00 90 25 129/85 (100) 98 08/27/19 20:00 Venturi Mask 2.0 Venturi Mask 8.0 08/27/19 20:00 98.0 96 23 119/68 (85) 100 08/27/19 19:21 90 21 100 Venturi Mask 8.0 40 92 18 97 08/27/19 19:20 97 Venturi Mask 8.0 40 08/27/19 18:00 88 16 97/51 (66) 91 08/27/19 17:00 83 16 102/47 (65) 90 08/27/19 16:00 98.2 79 16 97/67 (77) 99 08/27/19 16:00 Venturi Mask 8.0 Venturi Mask 8.0 08/27/19 16:00 74 08/27/19 16:00 8.0 40 08/27/19 15:50 86 21 100 Venturi Mask 8.0 40 82 20 100 08/27/19 15:00 80 16 99/56 (70) 99 08/27/19 14:00 80 16 101/67 (78) 99 08/27/19 13:00 80 22 95/28 (50) 95 Intake and Output 08/27/19 08/28/19 19:00 07:00 Intake Total 750 ml 951 ml Output Total 1340 ml 1110 ml Balance -590 ml -159 ml Intake Free Water 160 ml 200 ml IV Total 421 ml Tube Feeding 590 ml 330 ml Output Urine Total 1340 ml 1110 ml # Bowel Movements 3 Laboratory Tests Test 08/28/19 03:00 White Blood Count 15.5 K/UL (4.8-10.8) H Red Blood Count 3.86 M/UL (4.20-5.40) L Hemoglobin 9.7 G/DL (12.0-16.0) L Hematocrit 29.2 % (37.0-47.0) L Mean Corpuscular Volume 76 FL (80-99) L Mean Corpuscular Hemoglobin 25.1 PG (27.0-31.0) L Mean Corpuscular Hemoglobin Concent 33.2 G/DL (32.0-36.0) Red Cell Distribution Width 20.9 % (11.6-14.8) H Platelet Count 310 K/UL (150-450) Mean Platelet Volume 5.5 FL (6.5-10.1) L Neutrophils (%) (Auto) 75.6 % (45.0-75.0) H Lymphocytes (%) (Auto) 15.3 % (20.0-45.0) L Monocytes (%) (Auto) 6.1 % (1.0-10.0) Eosinophils (%) (Auto) 2.6 % (0.0-3.0) Basophils (%) (Auto) 0.4 % (0.0-2.0) Sodium Level 136 MMOL/L (136-145) Potassium Level 4.2 MMOL/L (3.5-5.1) Chloride Level 98 MMOL/L (98-107) Carbon Dioxide Level 34 MMOL/L (21-32) H Anion Gap 4 mmol/L (5-15) L Blood Urea Nitrogen 13 mg/dL (7-18) Creatinine 0.4 MG/DL (0.55-1.30) L Estimat Glomerular Filtration Rate > 60 mL/min (>60) Glucose Level 96 MG/DL (74-106) Calcium Level 8.7 MG/DL (8.5-10.1) Microbiology Date/Time Source Procedure Growth Status 08/27/19 12:20 Other(Specify in comment) Catheter Tip Culture - Preliminary Resulted Height (Feet): 4 Height (Inches): 10.00 Weight (Pounds): 120 General Appearance: no apparent distress Cardiovascular: normal rate Respiratory/Chest: normal breath sounds, no respiratory distress, other - venturi Abdominal Exam: normal bowel sounds, non tender, soft Extremities: non-tender Edu Coates NP Aug 28, 2019 12:07
--- NOTE | 2019-08-28 12:12 | NUR ---
NURSE NOTES: LATE ENTRY: PT IN BED. VS: HR 82, BP 101/44, RR 18. PT ON VENTURI MASK 35% AT 8L, 02SAT 95%. SECRETIONS SMALL, HINDS WITH RED SPECKS. LT NARES NGT. GLUCERNA 1.5 RUNNING AT 55ML/HR. HELD 1 HOUR FOR RESIDUAL >100. ABDOMEN NON TENDER. BOWEL SOUNDS HYPOACTIVE. ONE BM, SMALL LOOSE BROWN. KNOTT DRAINING PALE URINE. IV SITE LT FOOT 20G. NO S/S OF PAIN, SOB. PT TURNED AND REPOSITIONED. CONTACT PRECAUTIONS IN PLACE. BED LOCKED IN LOW POSITION. WILL CONTINUE TO MONITOR PT.
--- NOTE | 2019-08-28 13:59 | Diagnostic Imaging Report ---
Indication: Dyspnea Comparison: 08/25/2019 A single view chest radiograph was obtained. Findings: Scoliosis again demonstrated. Cardiomegaly is present and stable. Pulmonary vascular congestion demonstrated. Mild basal atelectasis noted. NG tube is in good position. Right-sided MIME ARTIST shunt again noted. IMPRESSION: No change from the prior exam. Mild CHF
--- NOTE | 2019-08-28 16:10 | NUR ---
NURSE NOTES: DRAFTER DETAIL HERE TO DRAW LABS.
--- NOTE | 2019-08-28 17:00 | NUR ---
NURSE NOTES: Called MD Davis to talk with Karolyn Mark regarding [facility] transfer and PEG concerns. left message, awaiting call back.
--- NOTE | 2019-08-28 17:02 | Internal Med Progress Note ---
Subjective Date of Service: Aug 28, 2019 Physician Name LluviaNiraj Attending Physician Wil Masters MD Current Medications Medications (Trade) Dose Ordered Sig/Sandeep Route PRN Reason Start Time Stop Time Status Last Admin Dose Admin Acetaminophen (Tylenol) 650 mg Q4H PRN NG Mild Pain/Temp > 100.5 08/22/19 10:30 09/21/19 10:29 08/23/19 20:22 Acetylcysteine (Mucomyst) 400 mg Q4HRT HHN 08/16/19 11:00 09/15/19 10:59 08/28/19 16:12 Albuterol/ Ipratropium (Albuterol/ Ipratropium) 3 ml Q4HRT HHN 08/27/19 19:00 09/01/19 18:59 08/28/19 16:12 Apixaban (Eliquis) 5 mg BID NGT 08/16/19 09:00 09/11/19 17:59 08/28/19 09:10 Barium Sulfate (Varibar Honey) 250 ml NOW PRN MC RAD 08/27/19 13:45 08/30/19 13:34 Barium Sulfate (Varibar [place]) 240 ml NOW PRN MC RAD 08/27/19 13:45 08/30/19 13:34 Barium Sulfate (Varibar Pudding) 230 ml NOW PRN MC RAD 08/27/19 13:45 08/30/19 13:34 Ciprofloxacin (Cipro 500mg tab) 500 mg EVERY 12 HOURS NG 08/25/19 21:00 09/01/19 20:59 08/28/19 09:10 Divalproex Sodium (Depakote Sprinkles) 500 mg Q12HR NG 08/15/19 21:00 09/14/19 20:59 08/28/19 09:09 Meropenem 1 gm/ Sodium Chloride 55 ml @ 110 mls/hr Q8HR IVPB 08/23/19 14:00 09/01/19 13:59 08/28/19 14:28 Metoclopramide HCl (Reglan) 5 mg Q6H PRN IVP Nausea & Vomiting 08/04/19 10:00 09/03/19 09:59 Pantoprazole (Protonix) 40 mg DAILY IV 08/01/19 09:00 2/9/20 08:59 08/28/19 09:10 Polyethylene Glycol (Miralax) 17 gm BEDTIME ORAL 08/20/19 21:00 09/19/19 20:59 08/25/19 20:30 Vancomycin HCl (Vanco rx to dose) 1 ea DAILY PRN MISC Per rx protocol 08/23/19 09:45 09/22/19 09:44 Vancomycin HCl 1 gm/Dextrose 275 ml @ 183.708 mls/hr Q8H IVPB 08/28/19 17:00 09/02/19 16:59 Allergies: Coded Allergies: LATEX (Verified Allergy, Severe, Rash on skin, 08/19/19) PENICILLIN G (Verified Allergy, Unknown, 12/02/18) Tolerates cabapenem, cephalosporin PENICILLINS (Unverified Allergy, Unknown, 12/02/18) ROS Limited/Unobtainable: Yes Subjective 49 YO F with pneumonia and respiratory failure. Extubated 08/11/19. Cover for Int Conor-DR Masters. ICU. Tolerating venturi mask Objective Last Vital Signs Date Time Temp Pulse Resp B/P (MAP) Pulse Ox O2 Delivery O2 Flow Rate FiO2 08/28/19 16:12 77 24 96 Venturi Mask 4.0 30 72 20 94 08/28/19 16:00 102/43 (62) 08/28/19 12:00 99.0 Laboratory Tests Test 08/28/19 03:00 08/28/19 15:40 White Blood Count 15.5 K/UL (4.8-10.8) H Red Blood Count 3.86 M/UL (4.20-5.40) L Hemoglobin 9.7 G/DL (12.0-16.0) L Hematocrit 29.2 % (37.0-47.0) L Mean Corpuscular Volume 76 FL (80-99) L Mean Corpuscular Hemoglobin 25.1 PG (27.0-31.0) L Mean Corpuscular Hemoglobin Concent 33.2 G/DL (32.0-36.0) Red Cell Distribution Width 20.9 % (11.6-14.8) H Platelet Count 310 K/UL (150-450) Mean Platelet Volume 5.5 FL (6.5-10.1) L Neutrophils (%) (Auto) 75.6 % (45.0-75.0) H Lymphocytes (%) (Auto) 15.3 % (20.0-45.0) L Monocytes (%) (Auto) 6.1 % (1.0-10.0) Eosinophils (%) (Auto) 2.6 % (0.0-3.0) Basophils (%) (Auto) 0.4 % (0.0-2.0) Sodium Level 136 MMOL/L (136-145) Potassium Level 4.2 MMOL/L (3.5-5.1) Chloride Level 98 MMOL/L (98-107) Carbon Dioxide Level 34 MMOL/L (21-32) H Anion Gap 4 mmol/L (5-15) L Blood Urea Nitrogen 13 mg/dL (7-18) Creatinine 0.4 MG/DL (0.55-1.30) L Estimat Glomerular Filtration Rate > 60 mL/min (>60) Glucose Level 96 MG/DL (74-106) Calcium Level 8.7 MG/DL (8.5-10.1) Vancomycin Level Trough 13.3 ug/mL (5.0-12.0) H Microbiology Date/Time Source Procedure Growth Status 08/25/19 20:20 Blood Blood Culture - Preliminary Staphylococcus Sp Coag Neg Resulted 08/25/19 20:00 Blood Blood Culture - Preliminary NO GROWTH AFTER 48 HOURS Resulted 08/27/19 12:20 Other(Specify in comment) Catheter Tip Culture - Preliminary Resulted Intake and Output 08/27/19 08/28/19 19:00 07:00 Intake Total 750 ml 951 ml Output Total 1340 ml 1110 ml Balance -590 ml -159 ml Intake Free Water 160 ml 200 ml IV Total 421 ml Tube Feeding 590 ml 330 ml Output Urine Total 1340 ml 1110 ml # Bowel Movements 3 Objective General Appearance: WD/WN, moderate distress EENT: PERRL/EOMI, normal ENT inspection Neck: non-tender, normal alignment, supple Cardiovascular: normal peripheral pulses, normal rate, regular rhythm, no gallop/murmur, no JVD Respiratory/Chest: Venturi mask; crackles/rales, rhonchi - bilaterally, expiratory wheezing Abdomen: normal bowel sounds, non tender, soft, no organomegaly, no mass Skin: normal pigmentation, warm/dry Assessment/Plan Problem List: (1) Respiratory failure with hypoxia Assessment & Plan: Tolerating venturi mask. S/P extubation 1/20/20 per pulmonary=Dr Bonilla (2) Pneumonia of both lower lobes Assessment & Plan: See ID note. S/P meropenem and zyvox. Continue meropenem, amikacin and vanco. (3) UTI (urinary tract infection) Assessment & Plan: Pseudamonas, ESBL E. Coli, and vanco resistant enterococcus. See ID note; Dr Sanabria signed off. Await new ID consult= Dr Buck/Milly. S/P meropenem, linezolid and micafugin (4) Sepsis (5) Paraplegia (6) Spina bifida Niraj Teixeira MD Aug 28, 2019 17:02
--- NOTE | 2019-08-28 17:11 | NUR ---
NURSE NOTES:WOUND CARE FOLLOW-UP NOTES:Sacral wound resolving(L00.4cm x (W)0.3cm. Base of wound moist and viable,edges adherent to base of wound. Periwound without evidence of further skin breakdown. R ischium red and excoriated with small amt sanguineous exudate.(L)6.6cm x (W)7.7cm.No other skin breakdown noted. Wound tx are effective and continued as ordered. All wound prevention protocols continued as care-planned.
--- NOTE | 2019-08-28 17:45 | Progress Note ---
DATE: 08/28/2019 SUBJECTIVE: The patient was in bed, in ICU. Confused. Disoriented. Still needs BiPAP. Continues to have episodes of agitation. She is not able to be engaged or provide any meaningful information. MENTAL STATUS EXAMINATION: Waxing and waning consciousness. Mood is agitated. Affect is flat. Thought process, there is a paucity of thought content. Thought content, no suicidal or homicidal ideation. Cognition is impaired. Insight and judgment non-existent. ASSESSMENT: 1. Developmental disability. 2. Acute encephalopathy. PLAN: 1. Continue Depakote 500 b.i.d. 2. Avoid prescribing benzodiazepines and narcotics. Kobi Reyes M.D. DR: TRENTON JOB#: [id number] CC:
[2019-08-28] MEDS: Vancomycin 1gm/D5W 275ml IVPB SCH ×2 (17:52)
--- NOTE | 2019-08-28 19:13 | NUR ---
HAND-OFF: Report given to Ioana Rodriguez pt in no acute distress
--- NOTE | 2019-08-28 19:30 | NUR ---
NURSE NOTES: Received report from [facility]. Patient in awake,alert verbally responsive. Watching TV. no s/s of acute distress noted. On Venturi mask 35% satting 100%. NGT intact with 50cc residual infusing Glucerna 1.5 at 55cc/hr. HOB. Suprapubic cath intact draining. Left foot IV line intact. Instructed patient to use call light for assistance. bed alarm on. bed locked and in low position. contact isolation maintained and observed. bed alarm on. bed locked and in low position. will continue plan of care.
--- NOTE | 2019-08-28 21:00 | NUR ---
NURSE NOTES: Family at bedside
[2019-08-28] MEDS: Miralax 17gm pkt ORAL SCH (21:02)
--- NOTE | 2019-08-28 23:00 | NUR ---
NURSE NOTES: Patient in bed awake,alert suctioned orally and Nasal with thick phlegm. HOB elevated. oral care provided. Placed BIPAP 06/28 fi02 40% satting 100%. HOB elevated. call light within easy reach. will continue plan of care.
[2019-08-29] VITALS (25 sets, daily range): BP systolic 81–121; BP diastolic 54–97
--- NOTE | 2019-08-29 01:00 | NUR ---
NURSE NOTES: Patient in bed sleeping comfortably. no moaning no facial grimaces Continue on BIPAP. HOB elevated. Suprapubic cath intact draining. oral care done. suctioned patient. turned and repositioned patient in bed. On P200 mattress for wound management. call light within easy reach.
[2019-08-29] MEDS: Vancomycin 1gm/D5W 275ml IVPB SCH ×4 (01:19→09:34)
[2019-08-29] MEDS: Albuterol/Ipratropium 3ml neb HHN SCH ×6 (02:19→23:31)
[2019-08-29] MEDS: Acetylcysteine 20% Soln 4ml HHN SCH ×6 (02:19→23:32)
--- NOTE | 2019-08-29 03:00 | NUR ---
NURSE NOTES: Bed bath given tolerated well.
--- NOTE | 2019-08-29 05:00 | NUR ---
NURSE NOTES: Patient in bed watching TV. coloring book placed on the table. denies any pain or discomfort, HOB elevated. will continue to monitor patient.
[2019-08-29 05:11] LABS: BASOPHILS % (AUTO) 0.5 % (0.0-2.0); EOSINOPHILS % (AUTO) 2.6 % (0.0-3.0); HEMATOCRIT 29.8 % (37.0-47.0); HEMOGLOBIN 9.6 G/DL (12.0-16.0); LYMPHOCYTES % (AUTO) 14.9 % (20.0-45.0); MEAN CORPUSCULAR VOLUME 77 FL (80-99); PLATELET COUNT 337 K/UL (150-450); RED BLOOD COUNT 3.87 M/UL (4.20-5.40); WHITE BLOOD COUNT 14.7 K/UL (4.8-10.8)
[2019-08-29 05:28] LABS: ALANINE AMINOTRANSFERASE 10 U/L (12-78); ALBUMIN 2.5 G/DL (3.4-5.0); ALBUMIN/GLOBULIN RATIO 0.5 (1.0-2.7); ALKALINE PHOSPHATASE 60 U/L (46-116); ANION GAP 6 mmol/L (5-15); ASPARTATE AMINO TRANSFERASE 10 U/L (15-37); BILIRUBIN,TOTAL 0.2 MG/DL (0.2-1.0); BLOOD UREA NITROGEN 14 mg/dL (7-18); CALCIUM 8.7 MG/DL (8.5-10.1); CARBON DIOXIDE 35 MMOL/L (21-32); CHLORIDE 98 MMOL/L (98-107); CREATININE 0.4 MG/DL (0.55-1.30); POTASSIUM 3.9 MMOL/L (3.5-5.1); SODIUM 139 MMOL/L (136-145)
[2019-08-29] MEDS: Meropenem 1 GM in NS 55 ML IVPB SCH ×3 (05:36→21:09)
--- NOTE | 2019-08-29 06:16 | NUR ---
NURSE NOTES: 10 MG Hydralazine given for SBP >160 at this time. Patient denies any pain or discomfort at this time. Will continue with plan of care. Addendum: 08/29/19 at 0618 by MAURICE DAVE RN wrong patient.
--- NOTE | 2019-08-29 07:15 | NUR ---
HAND-OFF: Report given to Bacilio CARTER.
--- NOTE | 2019-08-29 07:42 | NUR ---
NURSE NOTES: RECEIVED REPORT FROM GUILHERME Rodriguez PT RESTING IN BED. BIPAP ON 06/28, 40%. VS: HR 76, BP 105/62, RR 16. 02SAT 96%. IN HIGH FOWLERS. LT NARES NGT. TURNED OFF TUBE FEED UNTIL BACK ON VENTURI MASK. ABDOMEN ROUND, NON TENDER. BOWEL SOUNDS HYPOACTIVE. NO BM AT THIS TIME. SUPRAPUBIC CATHETER DRAINING PALE URINE 50-60ML/HR. IV SITE LT FOOT 20G. NO S/S OF PAIN, SOB. AFEBRILE. SKIN-SEE ASSESSMENT. ON P200 AIR MATTRESS. CONTACT PRECAUTIONS IN PLACE. BED LOCKED IN LOW POSITION, BED ALARM ON, CALL LIGHT IN REACH. COLORING BOOK AND BEDSIDE TABLE IN REACH. WILL CONTINUE TO MONITOR PT.
--- NOTE | 2019-08-29 08:50 | Pulmonolgy Critical Care Note ---
Critical Care - Asmt/Plan Assessment/Plan: Pulmonary CCM Progress Note Assessment/Plan: (1) Pneumonia of both lower lobes Assessment & Plan: VDRF, intubated 07/12/19, S/P FOB 07/12/19; Reintubated ; extubated 08/11/19, currently PRN BiPAP (2) Catheter-associated urinary tract infection Assessment & Plan: PsA and proteus - s/p treatment (3) Respiratory failure with hypoxia Assessment & Plan: Acute on chronic hypercapnic and hypoxemic RF 2/2 PNA Duplex neg, minimally elevated d-dimer, unlikely VTE and already on a NOAC (4) HCAP (healthcare-associated pneumonia) (5) Paraplegia (6) Sepsis (7) Suprapubic catheter (8) Restrictive lung disease due to kyphoscoliosis (9) Decubitus skin ulcer (10) Spina bifida (11) Anemia, acute (12) hx recurrent PE on eliquis Plan: * monitor closely * respiratory care * NGT for feeds * ABG prn * Repeat CXR next week * BiPAP qhs and prn * High risk for recurrent respiratory failure and reintubation and discussed with the patiet's family previously * If gets reintubated, will need trach placement * holding abx * Good pulmonary hygiene: duonebs and mucomyst q4 * She had recurrent PE as outpatient. 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 Discussed with: nurses Critical Care - Objective Vital Signs Noted Status: awake Lungs: occasional rhonchi Heart: HS1, HS2, RRR Abdomen: soft, non-tender Extremities: mild edema Labs/Micro: noted Subjective: Less SOB still requiring frequent suctioning no fever no distress awake wears bipap at night and PRN Critical Care - Objective Last 24 Hour Vital Signs Date Time Temp Pulse Resp B/P (MAP) Pulse Ox O2 Delivery O2 Flow Rate FiO2 08/29/19 08:00 40 08/29/19 08:00 Bi-pap 8.0 Bi-pap 08/29/19 08:00 98.8 74 13 100/64 (76) 92 08/29/19 07:23 71 14 99 Facial 40 82 20 100 Bi-Pap 40 2/7/20 07:04 99 Bi-Pap 40 08/29/19 07:00 75 16 105/62 (76) 98 08/29/19 06:00 83 19 101/64 (76) 95 08/29/19 05:54 86 22 98 Facial 40 08/29/19 05:00 85 21 101/74 (83) 98 08/29/19 04:00 98.6 82 20 104/88 (93) 84 08/29/19 04:00 40 08/29/19 04:00 78 08/29/19 04:00 Venturi Mask 8.0 Venturi Mask 8.0 08/29/19 03:18 88 20 112/97 (102) 97 08/29/19 02:45 81 18 110/64 (79) 95 08/29/19 02:21 79 19 100 Full Face 40 08/29/19 02:19 79 18 100 Bi-Pap 4.0 30 78 19 99 08/29/19 01:10 80 20 110/94 (99) 100 08/29/19 01:00 79 20 81/57 (65) 100 08/29/19 00:43 84 15 100 Full Face 40 08/29/19 00:00 76 08/29/19 00:00 Venturi Mask 8.0 Venturi Mask 8.0 08/29/19 00:00 98.9 73 16 108/54 (72) 99 08/29/19 00:00 40 08/28/19 23:00 78 17 99/45 (63) 97 08/28/19 22:24 88 20 100 Full Face 40 08/28/19 22:16 82 22 100 Venturi Mask 4.0 30 77 17 98 08/28/19 22:00 82 23 101/77 (85) 98 08/28/19 21:04 84 20 118/63 (81) 100 08/28/19 20:09 98.8 86 23 91/62 (72) 100 08/28/19 20:00 Venturi Mask 8.0 Venturi Mask 8.0 08/28/19 20:00 8.0 35 08/28/19 20:00 76 08/28/19 19:28 79 24 99 Venturi Mask 4.0 30 75 23 96 08/28/19 19:28 96 Venturi Mask 8.0 40 08/28/19 19:00 79 19 113/60 (77) 83 08/28/19 18:00 81 18 102/62 (75) 95 08/28/19 17:00 83 16 97/41 (59) 94 08/28/19 16:12 77 24 96 Venturi Mask 4.0 30 72 20 94 08/28/19 16:00 99.0 77 17 102/43 (62) 94 08/28/19 16:00 Venturi Mask 8.0 Venturi Mask 8.0 08/28/19 16:00 83 08/28/19 15:03 77 17 92/53 (66) 94 08/28/19 15:00 78 16 66/37 (47) 95 08/28/19 14:00 81 17 96/43 (60) 81 08/28/19 13:00 85 19 120/46 (70) 97 08/28/19 12:40 8.0 35 08/28/19 12:36 86 22 97 Venturi Mask 4.0 30 84 22 96 08/28/19 12:00 79 08/28/19 12:00 Venturi Mask 8.0 Venturi Mask 8.0 08/28/19 12:00 99.0 81 32 101/44 (63) 96 08/28/19 12:00 8.0 40 08/28/19 11:00 85 19 90/69 (76) 100 08/28/19 10:00 85 15 113/53 (73) 88 08/28/19 09:00 99.0 77 16 102/49 (66) 84 Micro: Microbiology Date/Time Source Procedure Growth Status 08/27/19 15:15 Blood Blood Culture - Preliminary NO GROWTH AFTER 24 HOURS Resulted 08/27/19 13:30 Blood Blood Culture - Preliminary NO GROWTH AFTER 24 HOURS Resulted 08/27/19 12:20 Other(Specify in comment) Catheter Tip Culture - Preliminary NO GROWTH AFTER 48 HOURS Resulted Accucheck: 114 Critical Care - Subjective ROS Limited/Unobtainable: No Condition: stable FI02: 40 Vent Support Breath Rate: 14 Vent Support Mode: BiLevel Vent Tidal Volume: 400 Sputum Amount: Small PEEP: 5.0 PIP: 22 Tube Feeding Amount: 55 I&O: Intake and Output 08/28/19 08/29/19 18:59 06:59 Intake Total 1016.666 ml 1360.000 ml Output Total 945 ml 885 ml Balance 71.666 ml 475.000 ml Intake Free Water 100 ml 200 ml IV Total 366.666 ml 385.000 ml Tube Feeding 550 ml 715 ml Other 60 ml Output Urine Total 945 ml 885 ml # Bowel Movements 2 ET-Tube: 7.5 ET Position: 23 Perfecto Youngblood MD Aug 29, 2019 08:50
[2019-08-29] MEDS: Eliquis 5mg tablet NGT SCH ×2 (09:35→17:16)
[2019-08-29] MEDS: Ciprofloxacin 500mg tab NG SCH ×2 (09:35→21:09)
[2019-08-29] MEDS: Pantoprazole Inj IV SCH (09:35)
[2019-08-29] MEDS: Depakote 125mg Sprinkles NG SCH ×2 (09:36→21:09)
[2019-08-29] MEDS: Acetaminophen 650mg/20.3ml NG PRN (09:38)
--- NOTE | 2019-08-29 10:34 | NUR ---
NURSE NOTES: LATE ENTRY: CALLED Steve MANDUJANO TO F/U ON SWALLOW STUDY. WILL BE HERE TO ASSESS PT. INFORMED PT MORE AWAKE AND ALERT THIS AM, SECRETIONS SMALL TO MODERATE.
[2019-08-29] MEDS ORDERED: Varibar Honey 250ml MC PRN (11:00)
[2019-08-29] MEDS ORDERED: Varibar Pudding 230ml MC PRN (11:00)
[2019-08-29] MEDS ORDERED: Varibar Nectar 240ml MC PRN (11:00)
[2019-08-29] MEDS ORDERED: NS 275ml ONE (11:03)
--- NOTE | 2019-08-29 11:23 | General Progress Note ---
Assessment/Plan Problem List: (1) Spina bifida ICD Codes: Q05.9 - Spina bifida, unspecified SNOMED: 30672662 Qualifiers: Qualified Codes: Q05.4 - Unspecified spina bifida with hydrocephalus (2) Respiratory failure with hypoxia ICD Codes: J96.91 - Respiratory failure, unspecified with hypoxia SNOMED: 47335638109928883 Qualifiers: Qualified Codes: J96.21 - Acute and chronic respiratory failure with hypoxia (3) Dysphagia ICD Codes: R13.10 - Dysphagia, unspecified SNOMED: 58081939, 119289253 (4) UTI (urinary tract infection) ICD Codes: N39.0 - Urinary tract infection, site not specified SNOMED: 60517144, 068265911 Qualifiers: Qualified Codes: N30.00 - Acute cystitis without hematuria (5) Paraplegia ICD Codes: G82.20 - Paraplegia, unspecified SNOMED: 75966428 (6) Anemia ICD Codes: D64.9 - Anemia, unspecified SNOMED: 792624741 Status: unchanged Assessment/Plan: extubated on BIPAP at night on venti mask ppi repeat labs fu H&H stool ob neg x1 reglan NGTF for now will need peg but family refusing abx per ID fu pulm recs will fu Subjective ROS Limited/Unobtainable: No Allergies: Coded Allergies: LATEX (Verified Allergy, Severe, Rash on skin, 08/19/19) PENICILLIN G (Verified Allergy, Unknown, 12/02/18) Tolerates cabapenem, cephalosporin PENICILLINS (Unverified Allergy, Unknown, 12/02/18) Objective Last 24 Hour Vital Signs Date Time Temp Pulse Resp B/P (MAP) Pulse Ox O2 Delivery O2 Flow Rate FiO2 08/29/19 10:35 77 22 100 Venturi Mask 8.0 40 73 21 98 08/29/19 08:00 40 08/29/19 08:00 Bi-pap 8.0 Bi-pap 08/29/19 08:00 98.8 74 13 100/64 (76) 92 08/29/19 08:00 76 08/29/19 07:23 71 14 99 Facial 40 82 20 100 Bi-Pap 40 08/29/19 07:04 99 Bi-Pap 40 08/29/19 07:00 75 16 105/62 (76) 98 08/29/19 06:00 83 19 101/64 (76) 95 08/29/19 05:54 86 22 98 Facial 40 08/29/19 05:00 85 21 101/74 (83) 98 08/29/19 04:00 98.6 82 20 104/88 (93) 84 08/29/19 04:00 40 08/29/19 04:00 78 08/29/19 04:00 Venturi Mask 8.0 Venturi Mask 8.0 08/29/19 03:18 88 20 112/97 (102) 97 08/29/19 02:45 81 18 110/64 (79) 95 08/29/19 02:21 79 19 100 Full Face 40 08/29/19 02:19 79 18 100 Bi-Pap 4.0 30 78 19 99 08/29/19 01:10 80 20 110/94 (99) 100 08/29/19 01:00 79 20 81/57 (65) 100 08/29/19 00:43 84 15 100 Full Face 40 08/29/19 00:00 76 08/29/19 00:00 Venturi Mask 8.0 Venturi Mask 8.0 08/29/19 00:00 98.9 73 16 108/54 (72) 99 08/29/19 00:00 40 08/28/19 23:00 78 17 99/45 (63) 97 08/28/19 22:24 88 20 100 Full Face 40 08/28/19 22:16 82 22 100 Venturi Mask 4.0 30 77 17 98 08/28/19 22:00 82 23 101/77 (85) 98 08/28/19 21:04 84 20 118/63 (81) 100 08/28/19 20:09 98.8 86 23 91/62 (72) 100 08/28/19 20:00 Venturi Mask 8.0 Venturi Mask 8.0 08/28/19 20:00 8.0 35 08/28/19 20:00 76 08/28/19 19:28 79 24 99 Venturi Mask 4.0 30 75 23 96 08/28/19 19:28 96 Venturi Mask 8.0 40 08/28/19 19:00 79 19 113/60 (77) 83 08/28/19 18:00 81 18 102/62 (75) 95 08/28/19 17:00 83 16 97/41 (59) 94 08/28/19 16:12 77 24 96 Venturi Mask 4.0 30 72 20 94 08/28/19 16:00 99.0 77 17 102/43 (62) 94 08/28/19 16:00 Venturi Mask 8.0 Venturi Mask 8.0 08/28/19 16:00 83 08/28/19 15:03 77 17 92/53 (66) 94 08/28/19 15:00 78 16 66/37 (47) 95 08/28/19 14:00 81 17 96/43 (60) 81 08/28/19 13:00 85 19 120/46 (70) 97 08/28/19 12:40 8.0 35 08/28/19 12:36 86 22 97 Venturi Mask 4.0 30 84 22 96 08/28/19 12:00 79 08/28/19 12:00 Venturi Mask 8.0 Venturi Mask 8.0 08/28/19 12:00 99.0 81 32 101/44 (63) 96 08/28/19 12:00 8.0 40 Intake and Output 08/28/19 08/29/19 19:00 07:00 Intake Total 1016.666 ml 1360.000 ml Output Total 935 ml 855 ml Balance 81.666 ml 505.000 ml Intake Free Water 100 ml 200 ml IV Total 366.666 ml 385.000 ml Tube Feeding 550 ml 715 ml Other 60 ml Output Urine Total 935 ml 855 ml # Bowel Movements 2 Laboratory Tests 08/28/19 15:40: Vancomycin Level Trough 13.3H 08/29/19 03:15: White Blood Count 14.7H, Red Blood Count 3.87L, Hemoglobin 9.6L, Hematocrit 29.8L, Mean Corpuscular Volume 77L, Mean Corpuscular Hemoglobin 24.9L, Mean Corpuscular Hemoglobin Concent 32.3, Red Cell Distribution Width 21.0H, Platelet Count 337, Mean Platelet Volume 5.4L, Neutrophils (%) (Auto) 76.0H, Lymphocytes (%) (Auto) 14.9L, Monocytes (%) (Auto) 6.0, Eosinophils (%) (Auto) 2.6, Basophils (%) (Auto) 0.5, Sodium Level 139, Potassium Level 3.9, Chloride Level 98, Carbon Dioxide Level 35H, Anion Gap 6, Blood Urea Nitrogen 14, Creatinine 0.4L, Estimat Glomerular Filtration Rate > 60, Glucose Level 114H, Calcium Level 8.7, Total Bilirubin 0.2, Aspartate Amino Transf (AST/SGOT) 10L, Alanine Aminotransferase (ALT/SGPT) 10L, Alkaline Phosphatase 60, Total Protein 7.3, Albumin 2.5L, Globulin 4.8, Albumin/Globulin Ratio 0.5L Height (Feet): 4 Height (Inches): 10.00 Weight (Pounds): 121 General Appearance: lethargic EENT: normal ENT inspection Neck: supple Cardiovascular: normal rate Respiratory/Chest: decreased breath sounds Abdomen: normal bowel sounds, non tender, soft Extremities: non-tender Tim Davis MD Aug 29, 2019 11:23
--- NOTE | 2019-08-29 11:58 | NUR ---
NURSE NOTES: LATE ENTRY: PT RESTING IN BED. VENTURI MASK 40%. IN HIGH FOWLERS. LT NARES NGT. GLUCERNA 1.5 RUNNING AT 55ML/HR. ABDOMEN ROUND, NON TENDER. BOWEL SOUNDS HYPOACTIVE. NO BM AT THIS TIME. SUPRAPUBIC CATHETER DRAINING PALE URINE. IV SITE LT FOOT 20G. NO S/S OF PAIN, SOB. AFEBRILE. PT CLEANED AND REPOSITIONED.CONTACT PRECAUTIONS IN PLACE. BED LOCKED IN LOW POSITION, BED ALARM ON, CALL LIGHT IN REACH. COLORING BOOK AND BEDSIDE TABLE IN REACH. WILL CONTINUE TO MONITOR PT.
--- NOTE | 2019-08-29 12:02 | NUR ---
NURSE NOTES: TRANSPORT HERE TO TAKE PT TO RADIOLOGY FOR VIDEO SWALLOW. IN BED, WITH MONITOR. PT IN NO DISTRESS.
--- NOTE | 2019-08-29 12:17 | NUR ---
RD ASSESSMENT & RECOMMENDATIONS SEE CARE ACTIVITY FOR COMPLETE ASSESSMENT DAILY ESTIMATED NEEDS: Needs based on wound, Pulmonary/ 47.6kg abw 25-30 kcals/kg 8536-1540 total kcals 1.25-2 g protein/kg 60-95 g total protein 25-30 mL/kg 9265-8431 total fluid mLs NUTRITION DIAGNOSIS: * Increased kcal/pro needs r/t wound healing as evidenced by h/o spina bifida, adm w/ full thickness wound @ sacrum-> resolving, and red and excoriated R-ischium. (UPDATED) * Swallowing difficulty R/T respiratory status as evidenced by re-intubated, now extubated, on and off BIPAP, w/ an order for NGT insertion + NGT feeds. CURRENT TF:Glucerna 1.5 @ 55ml/hr x 16 hrs PO DIET RECOMMENDATIONS: WHEN SAFE FOR ORAL DIET-> REGULAR, texture per INKING MACHINE TENDER ENTERAL NUTRITION RECOMMENDATIONS: Glucerna 1.5 @ 55ml/hr x 16 hrs (HOLD FOR 8 HRS DURING HS BIPAP) to provide 880ml, 1320kcal, 73g prot, 668ml free water - Rec TF to run 16 hrs to account for TF held time during HS BIPAP TF TO BE HELD FOR 8 HRS DURING BIPAP USAGE - HOB over 30 degrees. - H20 flush of 200ml q 6hrs ADDITIONAL RECOMMENDATIONS: 1) Wound care: add GREGG in 4oz H2O BID via NGT Add MVI x 1, VIT C 500mg daily 2) Maintain calibrated bed scale wts 3) NISS for BG control on TF - h/o DM 4) Monitor lytes daily, replete as needed. 5) TF to run 16 hrs to account for TF hold time during HS BIPAP usage. .
--- NOTE | 2019-08-29 13:30 | NUR ---
NURSE NOTES: PT BACK ON UNIT. CONNECTED TO MONITOR. VSS. PT ON 4LNC. PT IN NO ACUTE DISTRESS.
--- NOTE | 2019-08-29 14:27 | NUR ---
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 99.0 HR 83 RR 21 B/P 103/61 4L NC O2 SAT @ 98% WBC 14.7 CO2 35 IS: VANCO IV MEROPENEM IV PROTONIX IV CIPRO PO ICU STATUS
--- NOTE | 2019-08-29 17:30 | NUR ---
NURSE NOTES: LATE ENTRY: FAMILY AT BEDSIDE. PT AWAKE, ALERT. LOOKING AT TV AND INTERACTING WITH FAMILY. ON 4LNC, SATING 99%. NO C.O PAIN OR SOB. VSS. WILL CONTINUE TO MONITOR.
--- NOTE | 2019-08-29 18:24 | Infectious Diseases Prog Note ---
Assessment/Plan Assessment/Plan Assessment: Sepsis Persistent Gram positive bacteremia- suspect PICC line infection- persist despite removal picc line- r/o endocarditis -08/27 PICC line removed; cath tip cx NTD Bcx 07/26 GPC clusters -08/22 Bcx 2/4 S.epi; 2/ bcx Picc NTD, peripheral CONS Recurrent aspiration pneumonia -08/25 CXR:Suspicion of slightly worsening CHF -08/22 cXR: Possible mild pulmonary vascular congestion. No change from the prior study -08/21 sp cx S. aureus, MDR PsA (S Amikacin, Cipro/levo; R Cefepime, Meropenem) -08/18 cXR: The lungs remain clear. There may be some minimal basal atelectasis -08/14 CXR: Cardiomegaly. Mild interstitial congestion, unchanged over 3 days -07/31, 08/01 sp cx normal resp sunny -07/12 sp cx normal -07/12 SP FLEXIBLE FIBEROPTIC BRONCHOSCOPY WITH BRONCHOALVEOLAR LAVAGE AND THERAPEUTIC ASPIRATION OF MUCOUS PLUG LEFT LUNG -07/11/20 CXR: Bilateral pulmonary edema/infiltrates. Possible small pleural effusions. Fever, recurrent; SP Leukocytosis, recurrent; fluctuating Recurrent hypoxic respiratory failure 2ry to above -sp intubation 07/31/19 and extubation 08/11/19 -s/p intubation 07/12/19 and extubation 07/19/19 UTI , recurrent -08/21 u/a wbc tnct, nit neg, leuk large; ucx >100k PsA (I Cefepime, Levaquin ; S Imipenem, Cipro) -08/11 ucx C. parapsilosis (colinzer) - 07/12 Ucx PsA (R Ceftazidime, levaquin; I Ciprofloxacin; otherwise S), VRE ( S Amp, linezolid) -07/11/19 u/a wbc tntc, nit neg, leuk +3; ucx PsA, ESBL E.coli, P. mirabilis S. mitis bacteremia- likely contaminant -07/28 Bcx 07/26 S. mitis; 07/29, 08/01, 08/03 Bcx neg HTN Dm2 spina bifida s/p SENIOR WEB DEVELOPER shunt decubiti ulcers wheelchair bound/paraplegic b/l renal stents neurogenic bladder s/p suprapubic catheter recurrent UTIs Plan: -Continue Meropenem #7-10 and PO Cipro #4 (abx d #5) -Continue IV Vancomycin #6 for S. aureus PNA and CONS bacteremia -2/3 SP Amikacin #4 -2/ SP Cefepime and Flagyl #3 -08/11 SP Linezolid and Meropenem #15 -08/06 SP Micafungin #4 -f/u cx -Monitor CBC/CMP, temperatures -aspiration precautions -GI, pulm f/u -speech therapy recommending PEG, family is refusing -f/u Bcx x2 (peripheral and pICC line), cath tip cx -2d echo, may need ADINA Thank you for this consultation. Will continue to follow along with you. Discussed with RN Subjective Allergies: Coded Allergies: LATEX (Verified Allergy, Severe, Rash on skin, 08/19/19) PENICILLIN G (Verified Allergy, Unknown, 12/02/18) Tolerates cabapenem, cephalosporin PENICILLINS (Unverified Allergy, Unknown, 12/02/18) Subjective afebrile in >72hrs wbc fluctuating Objective Vital Signs Last 24 Hour Vital Signs Date Time Temp Pulse Resp B/P (MAP) Pulse Ox O2 Delivery O2 Flow Rate FiO2 08/29/19 16:00 98.8 91 27 108/68 (81) 94 08/29/19 16:00 Nasal Cannula 4.0 Nasal Cannula 4.0 08/29/19 15:00 86 17 108/64 (79) 97 08/29/19 14:30 87 18 98 Nasal Cannula 3.0 32 89 20 95 08/29/19 14:00 87 20 104/66 (79) 94 08/29/19 13:53 4.0 08/29/19 13:23 107/62 (77) 08/29/19 12:00 83 08/29/19 12:00 Nasal Cannula 4.0 Nasal Cannula 4.0 08/29/19 12:00 99.0 83 21 103/61 (75) 99 08/29/19 12:00 40.0 08/29/19 11:00 83 19 109/65 (80) 98 08/29/19 10:35 77 22 100 Venturi Mask 8.0 40 73 21 98 08/29/19 10:00 79 27 121/85 (97) 92 2/7/20 09:00 73 19 100/86 (91) 98 08/29/19 08:00 40 08/29/19 08:00 Bi-pap 8.0 Bi-pap 08/29/19 08:00 98.8 74 13 100/64 (76) 92 08/29/19 08:00 76 08/29/19 07:23 71 14 99 Facial 40 82 20 100 Bi-Pap 40 08/29/19 07:04 99 Bi-Pap 40 08/29/19 07:00 75 16 105/62 (76) 98 08/29/19 06:00 83 19 101/64 (76) 95 08/29/19 05:54 86 22 98 Facial 40 08/29/19 05:00 85 21 101/74 (83) 98 08/29/19 04:00 98.6 82 20 104/88 (93) 84 08/29/19 04:00 40 08/29/19 04:00 78 08/29/19 04:00 Venturi Mask 8.0 Venturi Mask 8.0 08/29/19 03:18 88 20 112/97 (102) 97 08/29/19 02:45 81 18 110/64 (79) 95 08/29/19 02:21 79 19 100 Full Face 40 08/29/19 02:19 79 18 100 Bi-Pap 4.0 30 78 19 99 08/29/19 01:10 80 20 110/94 (99) 100 08/29/19 01:00 79 20 81/57 (65) 100 08/29/19 00:43 84 15 100 Full Face 40 08/29/19 00:00 76 08/29/19 00:00 Venturi Mask 8.0 Venturi Mask 8.0 08/29/19 00:00 98.9 73 16 108/54 (72) 99 08/29/19 00:00 40 08/28/19 23:00 78 17 99/45 (63) 97 08/28/19 22:24 88 20 100 Full Face 40 08/28/19 22:16 82 22 100 Venturi Mask 4.0 30 77 17 98 08/28/19 22:00 82 23 101/77 (85) 98 08/28/19 21:04 84 20 118/63 (81) 100 08/28/19 20:09 98.8 86 23 91/62 (72) 100 08/28/19 20:00 Venturi Mask 8.0 Venturi Mask 8.0 08/28/19 20:00 8.0 35 08/28/19 20:00 76 08/28/19 19:28 79 24 99 Venturi Mask 4.0 30 75 23 96 08/28/19 19:28 96 Venturi Mask 8.0 40 08/28/19 19:00 79 19 113/60 (77) 83 Height (Feet): 4 Height (Inches): 10.00 Weight (Pounds): 121 Objective General Appearance: lethargic EENT: normal ENT inspection Neck: supple Cardiovascular: normal rate Respiratory/Chest: decreased breath sounds Abdomen: normal bowel sounds, non tender, soft Extremities: non-tender Microbiology Date/Time Source Procedure Growth Status 08/27/19 15:15 Blood Blood Culture - Preliminary NO GROWTH AFTER 24 HOURS Resulted 08/27/19 13:30 Blood Blood Culture - Preliminary Resulted 08/27/19 12:20 Other(Specify in comment) Catheter Tip Culture - Preliminary NO GROWTH AFTER 48 HOURS Resulted Laboratory Tests Test 08/29/19 03:15 08/29/19 16:00 White Blood Count 14.7 K/UL (4.8-10.8) H Red Blood Count 3.87 M/UL (4.20-5.40) L Hemoglobin 9.6 G/DL (12.0-16.0) L Hematocrit 29.8 % (37.0-47.0) L Mean Corpuscular Volume 77 FL (80-99) L Mean Corpuscular Hemoglobin 24.9 PG (27.0-31.0) L Mean Corpuscular Hemoglobin Concent 32.3 G/DL (32.0-36.0) Red Cell Distribution Width 21.0 % (11.6-14.8) H Platelet Count 337 K/UL (150-450) Mean Platelet Volume 5.4 FL (6.5-10.1) L Neutrophils (%) (Auto) 76.0 % (45.0-75.0) H Lymphocytes (%) (Auto) 14.9 % (20.0-45.0) L Monocytes (%) (Auto) 6.0 % (1.0-10.0) Eosinophils (%) (Auto) 2.6 % (0.0-3.0) Basophils (%) (Auto) 0.5 % (0.0-2.0) Sodium Level 139 MMOL/L (136-145) Potassium Level 3.9 MMOL/L (3.5-5.1) Chloride Level 98 MMOL/L (98-107) Carbon Dioxide Level 35 MMOL/L (21-32) H Anion Gap 6 mmol/L (5-15) Blood Urea Nitrogen 14 mg/dL (7-18) Creatinine 0.4 MG/DL (0.55-1.30) L Estimat Glomerular Filtration Rate > 60 mL/min (>60) Glucose Level 114 MG/DL (74-106) H Calcium Level 8.7 MG/DL (8.5-10.1) Total Bilirubin 0.2 MG/DL (0.2-1.0) Aspartate Amino Transf (AST/SGOT) 10 U/L (15-37) L Alanine Aminotransferase (ALT/SGPT) 10 U/L (12-78) L Alkaline Phosphatase 60 U/L (46-116) Total Protein 7.3 G/DL (6.4-8.2) Albumin 2.5 G/DL (3.4-5.0) L Globulin 4.8 g/dL Albumin/Globulin Ratio 0.5 (1.0-2.7) L Vancomycin Level Trough 40.8 ug/mL (5.0-12.0) H Current Medications Medications (Trade) Dose Ordered Sig/Sandeep Route PRN Reason Start Time Stop Time Status Last Admin Dose Admin Acetaminophen (Tylenol) 650 mg Q4H PRN NG Mild Pain/Temp > 100.5 08/22/19 10:30 09/21/19 10:29 08/29/19 09:38 Acetylcysteine (Mucomyst) 400 mg Q4HRT HHN 08/16/19 11:00 09/15/19 10:59 08/29/19 14:15 Albuterol/ Ipratropium (Albuterol/ Ipratropium) 3 ml Q4HRT HHN 08/27/19 19:00 09/01/19 18:59 08/29/19 14:15 Apixaban (Eliquis) 5 mg BID NGT 08/16/19 09:00 09/11/19 17:59 08/29/19 17:16 Barium Sulfate (Varibar Honey) 250 ml NOW PRN Radiology Procedure 08/29/19 11:00 09/01/19 10:52 Barium Sulfate (Varibar Kraemer) 230 ml NOW PRN Radiology Procedure 08/29/19 11:00 09/01/19 10:52 Barium Sulfate (Varibar Pudding) 230 ml NOW PRN Radiology Procedure 08/29/19 11:00 09/01/19 10:52 Ciprofloxacin (Cipro 500mg tab) 500 mg EVERY 12 HOURS NG 08/25/19 21:00 09/01/19 20:59 08/29/19 09:35 Divalproex Sodium (Depakote Sprinkles) 500 mg Q12HR NG 08/15/19 21:00 09/14/19 20:59 08/29/19 09:36 Meropenem 1 gm/ Sodium Chloride 55 ml @ 110 mls/hr Q8HR IVPB 08/23/19 14:00 09/01/19 13:59 08/29/19 14:27 Metoclopramide HCl (Reglan) 5 mg Q6H PRN IVP Nausea & Vomiting 08/04/19 10:00 09/03/19 09:59 Pantoprazole (Protonix) 40 mg DAILY IV 08/01/19 09:00 08/31/19 08:59 08/29/19 09:35 Polyethylene Glycol (Miralax) 17 gm BEDTIME ORAL 08/20/19 21:00 09/19/19 20:59 08/28/19 21:02 Vancomycin HCl (Vanco rx to dose) 1 ea DAILY PRN MISC Per rx protocol 08/23/19 09:45 09/22/19 09:44 Joaquina Hill M.D. Aug 29, 2019 18:24
--- NOTE | 2019-08-29 18:53 | Internal Med Progress Note ---
Subjective Physician Name Wil Masters Attending Physician Wil Masters MD Current Medications Medications (Trade) Dose Ordered Sig/Sandeep Route PRN Reason Start Time Stop Time Status Last Admin Dose Admin Acetaminophen (Tylenol) 650 mg Q4H PRN NG Mild Pain/Temp > 100.5 08/22/19 10:30 09/21/19 10:29 08/29/19 09:38 Acetylcysteine (Mucomyst) 400 mg Q4HRT N 08/16/19 11:00 09/15/19 10:59 08/29/19 14:15 Albuterol/ Ipratropium (Albuterol/ Ipratropium) 3 ml Q4HRT HHN 08/27/19 19:00 09/01/19 18:59 08/29/19 14:15 Apixaban (Eliquis) 5 mg BID NGT 08/16/19 09:00 09/11/19 17:59 08/29/19 17:16 Barium Sulfate (Varibar Honey) 250 ml NOW PRN Radiology Procedure 08/29/19 11:00 09/01/19 10:52 Barium Sulfate (Varibar [place]) 230 ml NOW PRN Radiology Procedure 08/29/19 11:00 09/01/19 10:52 Barium Sulfate (Varibar Pudding) 230 ml NOW PRN Radiology Procedure 08/29/19 11:00 09/01/19 10:52 Ciprofloxacin (Cipro 500mg tab) 500 mg EVERY 12 HOURS NG 08/25/19 21:00 09/01/19 20:59 08/29/19 09:35 Divalproex Sodium (Depakote Sprinkles) 500 mg Q12HR NG 08/15/19 21:00 09/14/19 20:59 08/29/19 09:36 Meropenem 1 gm/ Sodium Chloride 55 ml @ 110 mls/hr Q8HR IVPB 08/23/19 14:00 09/01/19 13:59 08/29/19 14:27 Metoclopramide HCl (Reglan) 5 mg Q6H PRN IVP Nausea & Vomiting 08/04/19 10:00 09/03/19 09:59 Pantoprazole (Protonix) 40 mg DAILY IV 08/01/19 09:00 08/31/19 08:59 08/29/19 09:35 Polyethylene Glycol (Miralax) 17 gm BEDTIME ORAL 08/20/19 21:00 09/19/19 20:59 08/28/19 21:02 Vancomycin HCl (Vanco rx to dose) 1 ea DAILY PRN MISC Per rx protocol 08/23/19 09:45 09/22/19 09:44 Allergies: Coded Allergies: LATEX (Verified Allergy, Severe, Rash on skin, 08/19/19) PENICILLIN G (Verified Allergy, Unknown, 12/02/18) Tolerates cabapenem, cephalosporin PENICILLINS (Unverified Allergy, Unknown, 12/02/18) Subjective IN ICU, awake, responsive, able to F/U with commands. less Chest congestion, failed swallow study, WBC: 14.7 Objective Last Vital Signs Date Time Temp Pulse Resp B/P (MAP) Pulse Ox O2 Delivery O2 Flow Rate FiO2 08/29/19 18:00 86 20 103/61 (75) 95 08/29/19 16:00 98.8 08/29/19 16:00 Nasal Cannula 4.0 Nasal Cannula 4.0 08/29/19 14:30 32 Laboratory Tests Test 08/29/19 03:15 08/29/19 16:00 White Blood Count 14.7 K/UL (4.8-10.8) H Red Blood Count 3.87 M/UL (4.20-5.40) L Hemoglobin 9.6 G/DL (12.0-16.0) L Hematocrit 29.8 % (37.0-47.0) L Mean Corpuscular Volume 77 FL (80-99) L Mean Corpuscular Hemoglobin 24.9 PG (27.0-31.0) L Mean Corpuscular Hemoglobin Concent 32.3 G/DL (32.0-36.0) Red Cell Distribution Width 21.0 % (11.6-14.8) H Platelet Count 337 K/UL (150-450) Mean Platelet Volume 5.4 FL (6.5-10.1) L Neutrophils (%) (Auto) 76.0 % (45.0-75.0) H Lymphocytes (%) (Auto) 14.9 % (20.0-45.0) L Monocytes (%) (Auto) 6.0 % (1.0-10.0) Eosinophils (%) (Auto) 2.6 % (0.0-3.0) Basophils (%) (Auto) 0.5 % (0.0-2.0) Sodium Level 139 MMOL/L (136-145) Potassium Level 3.9 MMOL/L (3.5-5.1) Chloride Level 98 MMOL/L (98-107) Carbon Dioxide Level 35 MMOL/L (21-32) H Anion Gap 6 mmol/L (5-15) Blood Urea Nitrogen 14 mg/dL (7-18) Creatinine 0.4 MG/DL (0.55-1.30) L Estimat Glomerular Filtration Rate > 60 mL/min (>60) Glucose Level 114 MG/DL (74-106) H Calcium Level 8.7 MG/DL (8.5-10.1) Total Bilirubin 0.2 MG/DL (0.2-1.0) Aspartate Amino Transf (AST/SGOT) 10 U/L (15-37) L Alanine Aminotransferase (ALT/SGPT) 10 U/L (12-78) L Alkaline Phosphatase 60 U/L (46-116) Total Protein 7.3 G/DL (6.4-8.2) Albumin 2.5 G/DL (3.4-5.0) L Globulin 4.8 g/dL Albumin/Globulin Ratio 0.5 (1.0-2.7) L Vancomycin Level Trough 40.8 ug/mL (5.0-12.0) H Microbiology Date/Time Source Procedure Growth Status 08/27/19 15:15 Blood Blood Culture - Preliminary NO GROWTH AFTER 24 HOURS Resulted 08/27/19 13:30 Blood Blood Culture - Preliminary Resulted 08/27/19 12:20 Other(Specify in comment) Catheter Tip Culture - Preliminary NO GROWTH AFTER 48 HOURS Resulted Intake and Output 08/28/19 08/29/19 19:00 07:00 Intake Total 1016.666 ml 1360.000 ml Output Total 935 ml 855 ml Balance 81.666 ml 505.000 ml Intake Free Water 100 ml 200 ml IV Total 366.666 ml 385.000 ml Tube Feeding 550 ml 715 ml Other 60 ml Output Urine Total 935 ml 855 ml # Bowel Movements 2 Objective General: Awake, More responsive, talking.. HEENT: NCAT, sclera anicteric, PERRL, EOMI, NG Tube. Neck: Supple, no significant jugular venous distention, Lungs: Decreased air at the bases, mild chest congestion, scattered rhonchi, no Wheeze. Heart: Regular rate and rhythm, normal S1/S2, no murmurs. Abdomen: soft, nontender, nondistended. Normoactive bowel sounds, morbid obesity. / Rectal: suprapubic cath. Extremities: No Cyanosis , clubbing or edema. Left upper extremity PICC line Neuro: A&O x 3, Able to move Upper extremities, unable to move LE's. Paraplegic. Skin: warm, no rash. Assessment/Plan Assessment/Plan 1) Pneumonia of both lower lobes Assessment & Plan: VDRF, intubated 07/12/19, S/P FOB 07/12/19; Reintubated (2) Catheter-associated urinary tract infection Assessment & Plan: PsA and proteus (3) Acute Respiratory failure with hypoxia Assessment & Plan: Acute on chronic hypercapnic and hypoxemic RF 2/2 PNA VDRF as able Duplex neg, minimally elevated d-dimer, unlikely VTE On Eliquis. (4) HCAP (healthcare-associated pneumonia) (5) Paraplegia (6) Sepsis (7) Suprapubic catheter (8) Restrictive lung disease due to kyphoscoliosis (9) Decubitus skin ulcer (10) Spina bifida (11) gram-negative bacilli UTI. Plan: * Monitor Labs and cultures * F/U tracheal aspirate * Good pulmonary hygiene: Duonebs therapy. * given the recurrent nature of this patient's respiratory failure, if not able to get extubated quickly, may need tracheostomy * Tolerated tube feeding at 55 cc/hr * Discussed with sister over the phone with regard to transfer to [facility] for continued medical therapy. * Abx: Vancomycin IV, Cipro p.o., meropenem IV. On Eliquis. Wil Masters MD Aug 29, 2019 18:53
--- NOTE | 2019-08-29 19:13 | NUR ---
VIDEO SWALLOW STUDY RESULTS: DYSPHAGIA RISK FACTORS FOR THIS 49 Y.O. FEMALE: HX OF PNEUMONIA, HX OF THICK SECRETIONS WHICH HAVE TO BE SUCTIONED TO BE CLEARED FROM UPPER AIRWAY, DECREASED MENTATION, LETHARGY, MULTIPLE CONGENITAL ANOMALIES, LACK OF HEAD CONTROL DUE TO CHOREA/LIKE CONTINUOUS MOTION (TARDIVE DYSKINESIA?), NON PRODUCTIVE/NON-CLEARING COUGH. INITIAL IMPRESSIONS: PERSISTENT MOD/SEV OROPHARYNGEAL DYSPHAGIA WITH MOD INCREASE IN ORAL PREPARATION AND OROPHARYNGEAL TRANSIT TIMES. WITH THICKER VISCOSITIES, ABSENCE OF ORAL PREPARATION IF GULPING THE ENTIRE BOLUS PREMATURELY. FAIR HYOLARYNGEAL EXCURSION/ELEVATION. NO OVERT S/S OF ASPIRATION WITH THIN LIQUIDS (TSP), NECTAR THICK LIQUIDS (TSP/CUP) DURING THE SWALLOW, BUT HAS SILENT ASPIRATION RISK. IT WAS NOTED THAT THE PATIENT COUGHED POST SWALLOW WITH ALL VISCOSITIES: A NON/PRODUCTIVE, NON/CLEARING COUGH (ALTHOUGH NO YOBANI/OR/CANDID ASPIRATION WAS OBSERVED.) THE PATIENT WAS PERSISTENTLY UNABLE TO ACHIEVE HEAD CONTROL AT MIDLINE, FREQUENT REPOSITIONING AND SUPPORT WERE UNSUCCESSFUL TO KEEP HER HEAD STABLE AND AT MIDLINE. IN LIGHT OF HER DECREASED MENTATION, PULMONARY STATUS, LETHARGY, LACK OF HEAD CONTROL, INABILITY TO IMPLEMENT COMPENSATORY SWALLOW STRATEGIES WITHOUT MAX/REPETITIVE VERBAL CUES, NON/PRODUCTIVE,NON/CLEARING COUGH AND NEED FOR SUCTIONING TO KEEP UPPER AIRWAY CLEAR IT IS RECOMMENDED THAT SHE UNDERGO PEG PLACEMENT FOR [employer]DLE [employer]ER NUTRITION/HYDRATION SUPPORT WITH P.O. IN VERY SMALL AMOUNTS (PUREE/NECTAR THICK LIQUIDS) FOR QUALITY OF LIFE. D/W EMMA CURRY. ATTEMPTED TO CALL PATIENTS SISTER MULTIPLE TIMES: LINE ALWAYS BUSY..
--- NOTE | 2019-08-29 19:26 | NUR ---
NURSE NOTES: CALLED LAB TO F/U ON DRAW FOR BLOOD CULTURES, WILL BE UP SOON.
--- NOTE | 2019-08-29 19:28 | NUR ---
HAND-OFF: Report given to GUILHERME Rodriguez PT IN NO ACUTE DISTRESS.
--- NOTE | 2019-08-29 19:30 | NUR ---
NURSE NOTES: Received report from EMMA Ribera. Patient in awake,alert verbally responsive. Watching TV. no s/s of acute distress noted. On 4L oxygen via N/C satting 100%. NGT intact Glucerna 1.5 at 55cc/hr no residual. HOB. Suprapubic cath intact draining. Left foot IV line intact. Instructed patient to use call light for assistance. bed alarm on. bed locked and in low position. contact isolation maintained and observed. bed alarm on. bed locked and in low position. Call light within easy reach. Coloring book and crayon on the table. Family at bedside. will continue plan of care.
--- NOTE | 2019-08-29 20:15 | NUR ---
NURSE NOTES: Seen and examined by Dr. Hill. Family at bedside.
--- NOTE | 2019-08-29 20:21 | NUR ---
NURSE NOTES: Budget Director came to draw blood culture
[2019-08-29] MEDS: Miralax 17gm pkt ORAL SCH (21:09)
--- NOTE | 2019-08-29 22:00 | NUR ---
NURSE NOTES: [employer] De[employer] Lead unable to draw blood will try again later. family at bedside.
--- NOTE | 2019-08-29 23:30 | Progress Note ---
DATE: 08/29/2019 SUBJECTIVE: The patient is in the ICU, has waxing and waning consciousness, confused with episodes of agitation. Continues to have BiPAP. MENTAL STATUS EXAMINATION: The patient is confused, have waxing and waning consciousness. Mood is agitated. Affect is flat. Thought process, there is a paucity of thought content. Thought content, no suicidal or homicidal ideation. Cognition is impaired. Insight and judgment impaired. ASSESSMENT: 1. Acute encephalopathy. 2. Developmental disability. PLAN: 1. Continue current psychotropic medications. 2. Provide the patient with reality orientation and supportive therapy. Kobi Reyes M.D. DR: Iron JOB#: [id number] CC:
--- NOTE | 2019-08-29 23:35 | NUR ---
NURSE NOTES: Turned and repositioned patient in bed. BIPAP placed by RT 06/28 fi02 40% satting 99%. HOB elevated. Oral care provided and suctioned patient. No s/s of acute distress noted. No Fever. frequent visual checks continued. will continue plan of care.
[2019-08-30] VITALS (29 sets, daily range): BP systolic 78–120; BP diastolic 38–75
--- NOTE | 2019-08-30 03:30 | NUR ---
NURSE NOTES: Bed bath given tolerated well.
[2019-08-30] MEDS: Acetylcysteine 20% Soln 4ml HHN SCH ×6 (03:35→23:23)
[2019-08-30] MEDS: Albuterol/Ipratropium 3ml neb HHN SCH ×6 (03:35→23:23)
--- NOTE | 2019-08-30 05:30 | NUR ---
NURSE NOTES: Patient in bed watching TV. coloring book placed on the table. denies any pain or discomfort, HOB elevated. will continue to monitor patient.
[2019-08-30] MEDS: Meropenem 1 GM in NS 55 ML IVPB SCH ×3 (05:44→22:45)
[2019-08-30 06:27] LABS: BASOPHILS % (AUTO) 0.7 % (0.0-2.0); EOSINOPHILS % (AUTO) 2.4 % (0.0-3.0); HEMATOCRIT 33.5 % (37.0-47.0); HEMOGLOBIN 10.9 G/DL (12.0-16.0); LYMPHOCYTES % (AUTO) 16.1 % (20.0-45.0); MEAN CORPUSCULAR VOLUME 77 FL (80-99); MONOCYTES % (AUTO) 5.9 % (1.0-10.0); PLATELET COUNT 415 K/UL (150-450); RED BLOOD COUNT 4.38 M/UL (4.20-5.40); RED CELL DISTRIBUTION WIDTH 20.9 % (11.6-14.8); WHITE BLOOD COUNT 13.7 K/UL (4.8-10.8)
[2019-08-30 06:44] LABS: ANION GAP 5 mmol/L (5-15); BLOOD UREA NITROGEN 12 mg/dL (7-18); CARBON DIOXIDE 33 MMOL/L (21-32); CHLORIDE 100 MMOL/L (98-107); CREATININE 0.4 MG/DL (0.55-1.30); POTASSIUM 3.7 MMOL/L (3.5-5.1); SODIUM 138 MMOL/L (136-145)
--- NOTE | 2019-08-30 07:13 | General Progress Note ---
Assessment/Plan Problem List: (1) Spina bifida ICD Codes: Q05.9 - Spina bifida, unspecified SNOMED: 01606583 Qualifiers: Qualified Codes: Q05.4 - Unspecified spina bifida with hydrocephalus (2) Respiratory failure with hypoxia ICD Codes: J96.91 - Respiratory failure, unspecified with hypoxia SNOMED: 71129488138410094 Qualifiers: Qualified Codes: J96.21 - Acute and chronic respiratory failure with hypoxia (3) Dysphagia ICD Codes: R13.10 - Dysphagia, unspecified SNOMED: 35740327, 396914576 (4) UTI (urinary tract infection) ICD Codes: N39.0 - Urinary tract infection, site not specified SNOMED: 82335727, 006342036 Qualifiers: Qualified Codes: N30.00 - Acute cystitis without hematuria (5) Paraplegia ICD Codes: G82.20 - Paraplegia, unspecified SNOMED: 57016303 (6) Anemia ICD Codes: D64.9 - Anemia, unspecified SNOMED: 847883958 Status: unchanged Assessment/Plan: extubated on BIPAP at night on venti mask ppi repeat labs fu H&H stool ob neg x1 reglan NGTF for now failed swallow study again will need peg but family refusing abx per ID fu pulm recs will fu Subjective ROS Limited/Unobtainable: No Allergies: Coded Allergies: LATEX (Verified Allergy, Severe, Rash on skin, 08/19/19) PENICILLIN G (Verified Allergy, Unknown, 12/02/18) Tolerates cabapenem, cephalosporin PENICILLINS (Unverified Allergy, Unknown, 12/02/18) Objective Last 24 Hour Vital Signs Date Time Temp Pulse Resp B/P (MAP) Pulse Ox O2 Delivery O2 Flow Rate FiO2 08/30/19 06:00 80 19 113/66 (82) 99 08/30/19 05:00 92 23 91/59 (70) 95 08/30/19 04:00 Bi-pap Bi-pap 08/30/19 04:00 98.4 91 18 95/63 (74) 92 08/30/19 04:00 74 08/30/19 04:00 81 08/30/19 04:00 40 08/30/19 03:35 84 18 98 Nasal Cannula 3.0 32 84 19 80 2/8/20 03:20 79 18 112/75 (87) 100 08/30/19 03:00 75 21 78/38 (51) 98 08/30/19 02:00 77 19 99/65 (76) 98 08/30/19 01:05 78 18 100 Facial 40 08/30/19 01:00 77 14 120/66 (84) 98 08/30/19 00:03 72 14 88/53 (65) 99 08/30/19 00:00 40 08/30/19 00:00 98.8 71 15 88/55 (66) 99 08/30/19 00:00 84 08/30/19 00:00 Bi-pap Bi-pap 08/29/19 23:32 77 14 100 Facial 40 79 13 100 Bi-Pap 40 08/29/19 23:00 84 18 103/64 (77) 100 08/29/19 22:00 90 19 106/64 (78) 96 08/29/19 21:00 91 21 116/59 (78) 100 08/29/19 20:00 Nasal Cannula 4.0 Nasal Cannula 4.0 08/29/19 20:00 98.6 84 20 119/63 (81) 99 08/29/19 20:00 4.0 08/29/19 20:00 90 08/29/19 19:57 87 18 98 Nasal Cannula 3.0 32 88 21 94 08/29/19 19:56 94 Nasal Cannula 3.0 32 08/29/19 19:00 85 20 118/65 (82) 94 08/29/19 18:00 86 20 103/61 (75) 95 08/29/19 17:00 82 21 109/67 (81) 94 08/29/19 16:00 98.8 91 27 108/68 (81) 94 08/29/19 16:00 Nasal Cannula 4.0 Nasal Cannula 4.0 08/29/19 16:00 90 08/29/19 15:00 86 17 108/64 (79) 97 08/29/19 14:30 87 18 98 Nasal Cannula 3.0 32 89 20 95 08/29/19 14:00 87 20 104/66 (79) 94 08/29/19 13:53 4.0 08/29/19 13:23 107/62 (77) 08/29/19 12:00 83 2/7/20 12:00 Nasal Cannula 4.0 Nasal Cannula 4.0 08/29/19 12:00 99.0 83 21 103/61 (75) 99 08/29/19 12:00 40.0 08/29/19 11:00 83 19 109/65 (80) 98 08/29/19 10:35 77 22 100 Venturi Mask 8.0 40 73 21 98 08/29/19 10:00 79 27 121/85 (97) 92 08/29/19 09:00 73 19 100/86 (91) 98 08/29/19 08:00 40 08/29/19 08:00 Bi-pap 8.0 Bi-pap 08/29/19 08:00 98.8 74 13 100/64 (76) 92 08/29/19 08:00 76 08/29/19 07:23 71 14 99 Facial 40 82 20 100 Bi-Pap 40 Intake and Output 08/29/19 08/30/19 19:00 07:00 Intake Total 1072.416 ml 1120 ml Output Total 610 ml 670 ml Balance 462.416 ml 450 ml Intake Free Water 400 ml IV Total 367.416 ml 55 ml Tube Feeding 605 ml 605 ml Other 100 ml 60 ml Output Urine Total 610 ml 670 ml # Bowel Movements 1 2 Laboratory Tests 08/29/19 16:00: Vancomycin Level Trough 40.8H 08/30/19 06:05: White Blood Count 13.7H, Red Blood Count 4.38, Hemoglobin 10.9L, Hematocrit 33.5L, Mean Corpuscular Volume 77L, Mean Corpuscular Hemoglobin 24.8L, Mean Corpuscular Hemoglobin Concent 32.4, Red Cell Distribution Width 20.9H, Platelet Count 415, Mean Platelet Volume 5.1L, Neutrophils (%) (Auto) 75.0, Lymphocytes (%) (Auto) 16.1L, Monocytes (%) (Auto) 5.9, Eosinophils (%) (Auto) 2.4, Basophils (%) (Auto) 0.7, Sodium Level 138, Potassium Level 3.7, Chloride Level 100, Carbon Dioxide Level 33H, Anion Gap 5, Blood Urea Nitrogen 12, Creatinine 0.4L, Estimat Glomerular Filtration Rate > 60, Glucose Level 108H, Calcium Level 9.0, Random Vancomycin Level 9.0 Height (Feet): 4 Height (Inches): 10.00 Weight (Pounds): 119 General Appearance: lethargic EENT: normal ENT inspection Neck: supple Cardiovascular: normal rate Respiratory/Chest: decreased breath sounds Abdomen: normal bowel sounds, non tender, soft Extremities: non-tender Tim Davis MD Aug 30, 2019 07:13
--- NOTE | 2019-08-30 07:33 | NUR ---
NURSE NOTES: RECEIVED REPORT FROM GUILHERME Rodriguez PT A/OX2, WATCHING TV, RECEIVING BREATHING TREATMENT. 4LNC VSS. IN HIGH FOWLERS. LT NARES NGT. GLUCERNA 1.5 RUNNING AT 55ML/HR. ABDOMEN SOFT, NON TENDER. BOWEL SOUNDS PRESENT IN ALL FOUR QUADRANTS. NO BM AT THIS TIME. SUPRAPUBIC CATHETER DRAINING YELLOW URINE, SECURED TO LEG, BELOW BLADDER. IV SITE LT FOOT 20G, PATENT AND INTACT. NO S/S OF PAIN, SOB. AFEBRILE. BILATERAL RADIAL AND PEDAL PULSES WEAK. NO EDEMA NOTED. SKIN-SEE ASSESSMENT. ON P200 AIR MATTRESS. CONTACT PRECAUTIONS IN PLACE. BED LOCKED IN LOW POSITION, BED ALARM ON, CALL LIGHT IN REACH. COLORING BOOK AND BEDSIDE TABLE IN REACH. WILL CONTINUE TO MONITOR PT.
[2019-08-30] MEDS: Eliquis 5mg tablet NGT SCH ×2 (09:46→18:22)
[2019-08-30] MEDS: Ciprofloxacin 500mg tab NG SCH ×2 (09:46→20:17)
[2019-08-30] MEDS: Pantoprazole Inj IV SCH (09:46)
[2019-08-30] MEDS: Depakote 125mg Sprinkles NG SCH ×2 (09:47→20:17)
[2019-08-30] MEDS: Vancomycin 750mg/NS 275ml IVPB SCH ×4 (09:48→20:17)
--- NOTE | 2019-08-30 10:22 | NUR ---
NURSE NOTES: tech here to do 2 d echo. pt in no distress. vss
--- NOTE | 2019-08-30 11:21 | Infectious Diseases Prog Note ---
Assessment/Plan Assessment/Plan Assessment: Sepsis Persistent Gram positive bacteremia- suspect PICC line infection- persist despite removal picc line- r/o endocarditis -08/27 PICC line removed; cath tip cx NTD Bcx 07/26 GPC clusters -2 Bcx: Staph sp -08/22 Bcx 2/4 S.epi; 2/ bcx Picc NTD, peripheral CONS Recurrent aspiration pneumonia -08/25 CXR:Suspicion of slightly worsening CHF -08/22 cXR: Possible mild pulmonary vascular congestion. No change from the prior study -08/21 sp cx S. aureus, MDR PsA (S Amikacin, Cipro/levo; R Cefepime, Meropenem) -08/18 cXR: The lungs remain clear. There may be some minimal basal atelectasis -08/14 CXR: Cardiomegaly. Mild interstitial congestion, unchanged over 3 days -07/31, 08/01 sp cx normal resp sunny -07/12 sp cx normal -07/12 SP FLEXIBLE FIBEROPTIC BRONCHOSCOPY WITH BRONCHOALVEOLAR LAVAGE AND THERAPEUTIC ASPIRATION OF MUCOUS PLUG LEFT LUNG -07/11/20 CXR: Bilateral pulmonary edema/infiltrates. Possible small pleural effusions. Fever, recurrent; SP Leukocytosis, recurrent; improving Recurrent hypoxic respiratory failure 2ry to above -sp intubation 07/31/19 and extubation 08/11/19 -s/p intubation 07/12/19 and extubation 07/19/19 UTI , recurrent -08/21 u/a wbc tnct, nit neg, leuk large; ucx >100k PsA (I Cefepime, Levaquin ; S Imipenem, Cipro) -08/11 ucx C. parapsilosis (colinzer) - 07/12 Ucx PsA (R Ceftazidime, levaquin; I Ciprofloxacin; otherwise S), VRE ( S Amp, linezolid) -07/11/19 u/a wbc tntc, nit neg, leuk +3; ucx PsA, ESBL E.coli, P. mirabilis S. mitis bacteremia- likely contaminant -07/28 Bcx 07/26 S. mitis; 07/29, 08/01, 08/03 Bcx neg HTN Dm2 spina bifida s/p MENTAL HEALTH NURSE PRACTITIONER shunt decubiti ulcers wheelchair bound/paraplegic b/l renal stents neurogenic bladder s/p suprapubic catheter recurrent UTIs Plan: -Continue Meropenem # 7/7-10 and PO Cipro #5 (abx d #6) -Continue IV Vancomycin # 7 for S. aureus PNA and CONS bacteremia -2/3 SP Amikacin #4 -2/ SP Cefepime and Flagyl #3 -08/11 SP Linezolid and Meropenem #15 -08/06 SP Micafungin #4 -f/u cx -Monitor CBC/CMP, temperatures -aspiration precautions -GI, pulm f/u -speech therapy recommending PEG, family is refusing -f/u Bcx x2 (peripheral and pICC line), cath tip cx -2d echo, may need ADINA Thank you for this consultation. Will continue to follow along with you. Discussed with RN Subjective Allergies: Coded Allergies: LATEX (Verified Allergy, Severe, Rash on skin, 08/19/19) PENICILLIN G (Verified Allergy, Unknown, 12/02/18) Tolerates cabapenem, cephalosporin PENICILLINS (Unverified Allergy, Unknown, 12/02/18) Subjective in ICU PICC removed on the afebrile Objective Vital Signs Last 24 Hour Vital Signs Date Time Temp Pulse Resp B/P (MAP) Pulse Ox O2 Delivery O2 Flow Rate FiO2 08/30/19 10:00 78 16 110/69 (83) 99 08/30/19 09:00 80 17 94/57 (69) 96 08/30/19 08:02 87 19 93/59 (70) 88 08/30/19 08:00 86 16 78/47 (57) 90 08/30/19 08:00 4.0 08/30/19 08:00 Nasal Cannula 4.0 Nasal Cannula 4.0 08/30/19 08:00 78 08/30/19 07:49 88 20 97 Nasal Cannula 4.0 36 86 20 94 08/30/19 07:49 96 Nasal Cannula 4.0 36 08/30/19 07:00 86 19 110/72 (85) 98 08/30/19 06:00 80 19 113/66 (82) 99 08/30/19 05:00 92 23 91/59 (70) 95 08/30/19 04:00 Bi-pap Bi-pap 08/30/19 04:00 98.4 91 18 95/63 (74) 92 08/30/19 04:00 74 08/30/19 04:00 81 08/30/19 04:00 40 08/30/19 03:35 84 18 98 Nasal Cannula 3.0 32 84 19 80 08/30/19 03:20 79 18 112/75 (87) 100 08/30/19 03:00 75 21 78/38 (51) 98 08/30/19 02:00 77 19 99/65 (76) 98 08/30/19 01:05 78 18 100 Facial 40 08/30/19 01:00 77 14 120/66 (84) 98 08/30/19 00:03 72 14 88/53 (65) 99 08/30/19 00:00 40 08/30/19 00:00 98.8 71 15 88/55 (66) 99 08/30/19 00:00 84 08/30/19 00:00 Bi-pap Bi-pap 08/29/19 23:32 77 14 100 Facial 40 79 13 100 Bi-Pap 40 08/29/19 23:00 84 18 103/64 (77) 100 08/29/19 22:00 90 19 106/64 (78) 96 08/29/19 21:00 91 21 116/59 (78) 100 08/29/19 20:00 Nasal Cannula 4.0 Nasal Cannula 4.0 08/29/19 20:00 98.6 84 20 119/63 (81) 99 08/29/19 20:00 4.0 08/29/19 20:00 90 08/29/19 19:57 87 18 98 Nasal Cannula 3.0 32 88 21 94 08/29/19 19:56 94 Nasal Cannula 3.0 32 08/29/19 19:00 85 20 118/65 (82) 94 08/29/19 18:00 86 20 103/61 (75) 95 08/29/19 17:00 82 21 109/67 (81) 94 08/29/19 16:00 98.8 91 27 108/68 (81) 94 08/29/19 16:00 Nasal Cannula 4.0 Nasal Cannula 4.0 08/29/19 16:00 90 08/29/19 15:00 86 17 108/64 (79) 97 08/29/19 14:30 87 18 98 Nasal Cannula 3.0 32 89 20 95 08/29/19 14:00 87 20 104/66 (79) 94 08/29/19 13:53 4.0 08/29/19 13:23 107/62 (77) 08/29/19 12:00 83 08/29/19 12:00 Nasal Cannula 4.0 Nasal Cannula 4.0 08/29/19 12:00 99.0 83 21 103/61 (75) 99 08/29/19 12:00 40.0 Height (Feet): 4 Height (Inches): 10.00 Weight (Pounds): 119 Respiratory/Chest: normal breath sounds Cardiovascular: regular rhythm Abdomen: non distended Microbiology Date/Time Source Procedure Growth Status 08/27/19 15:15 Blood Blood Culture - Preliminary NO GROWTH AFTER 48 HOURS Resulted 08/27/19 13:30 Blood Blood Culture - Preliminary Staphylococcus Species Resulted 08/27/19 12:20 Other(Specify in comment) Catheter Tip Culture - Preliminary NO GROWTH AFTER 72 HOURS Resulted Laboratory Tests Test 08/29/19 16:00 08/30/19 06:05 Vancomycin Level Trough 40.8 ug/mL (5.0-12.0) H White Blood Count 13.7 K/UL (4.8-10.8) H Red Blood Count 4.38 M/UL (4.20-5.40) Hemoglobin 10.9 G/DL (12.0-16.0) L Hematocrit 33.5 % (37.0-47.0) L Mean Corpuscular Volume 77 FL (80-99) L Mean Corpuscular Hemoglobin 24.8 PG (27.0-31.0) L Mean Corpuscular Hemoglobin Concent 32.4 G/DL (32.0-36.0) Red Cell Distribution Width 20.9 % (11.6-14.8) H Platelet Count 415 K/UL (150-450) Mean Platelet Volume 5.1 FL (6.5-10.1) L Neutrophils (%) (Auto) 75.0 % (45.0-75.0) Lymphocytes (%) (Auto) 16.1 % (20.0-45.0) L Monocytes (%) (Auto) 5.9 % (1.0-10.0) Eosinophils (%) (Auto) 2.4 % (0.0-3.0) Basophils (%) (Auto) 0.7 % (0.0-2.0) Sodium Level 138 MMOL/L (136-145) Potassium Level 3.7 MMOL/L (3.5-5.1) Chloride Level 100 MMOL/L (98-107) Carbon Dioxide Level 33 MMOL/L (21-32) H Anion Gap 5 mmol/L (5-15) Blood Urea Nitrogen 12 mg/dL (7-18) Creatinine 0.4 MG/DL (0.55-1.30) L Estimat Glomerular Filtration Rate > 60 mL/min (>60) Glucose Level 108 MG/DL (74-106) H Calcium Level 9.0 MG/DL (8.5-10.1) Random Vancomycin Level 9.0 ug/mL Current Medications Medications (Trade) Dose Ordered Sig/Sandeep Route PRN Reason Start Time Stop Time Status Last Admin Dose Admin Acetaminophen (Tylenol) 650 mg Q4H PRN NG Mild Pain/Temp > 100.5 08/22/19 10:30 09/21/19 10:29 08/29/19 09:38 Acetylcysteine (Mucomyst) 400 mg Q4HRT N 08/16/19 11:00 09/15/19 10:59 08/30/19 11:00 Albuterol/ Ipratropium (Albuterol/ Ipratropium) 3 ml Q4HRT N 08/27/19 19:00 09/01/19 18:59 08/30/19 10:59 Apixaban (Eliquis) 5 mg BID NGT 08/16/19 09:00 09/11/19 17:59 08/30/19 09:46 Barium Sulfate (Varibar Honey) 250 ml NOW PRN Radiology Procedure 08/29/19 11:00 09/01/19 10:52 Barium Sulfate (Varibar [place]) 230 ml NOW PRN Radiology Procedure 08/29/19 11:00 09/01/19 10:52 Barium Sulfate (Varibar Pudding) 230 ml NOW PRN Radiology Procedure 08/29/19 11:00 09/01/19 10:52 Ciprofloxacin (Cipro 500mg tab) 500 mg EVERY 12 HOURS NG 08/25/19 21:00 09/01/19 20:59 08/30/19 09:46 Divalproex Sodium (Depakote Sprinkles) 500 mg Q12HR NG 08/15/19 21:00 09/14/19 20:59 08/30/19 09:47 Meropenem 1 gm/ Sodium Chloride 55 ml @ 110 mls/hr Q8HR IVPB 08/23/19 14:00 09/01/19 13:59 08/30/19 05:44 Metoclopramide HCl (Reglan) 5 mg Q6H PRN IVP Nausea & Vomiting 08/04/19 10:00 09/03/19 09:59 Pantoprazole (Protonix) 40 mg DAILY IV 08/01/19 09:00 08/31/19 08:59 08/30/19 09:46 Polyethylene Glycol (Miralax) 17 gm BEDTIME ORAL 08/20/19 21:00 09/19/19 20:59 08/29/19 21:09 Vancomycin HCl (Vanco rx to dose) 1 ea DAILY PRN MISC Per rx protocol 08/23/19 09:45 09/22/19 09:44 Vancomycin HCl 750 mg/Sodium Chloride 275 ml @ 183.333 mls/hr Q12HR IVPB 08/30/19 09:00 09/04/19 08:59 08/30/19 09:48 Serafin Buck MD Aug 30, 2019 11:21
--- NOTE | 2019-08-30 11:35 | NUR ---
NURSE NOTES: MD LIND HERE TO SEE PT. AWARE OF GRAM POSITIVE COCCI IN CLUSTERS. INFORMED THAT 2 D ECHO COMPLETE. [address] PL[address] OWN ORDER FOR BLOOD CULTURE FOR 08/31/2019.
--- NOTE | 2019-08-30 12:30 | NUR ---
NURSE NOTES: LATE ENTRY: PT RESTING IN BED. ON 4L NC. VS: HR 89, BP 88/57, RR 17. 02SAT 95%. IN HIGH FOWLERS. LT NARES NGT. ABDOMEN ROUND, NON TENDER. BOWEL SOUNDS HYPOACTIVE. NO BM AT THIS TIME. SUPRAPUBIC CATHETER DRAINING PALE URINE 50-60ML/HR. IV SITE LT FOOT 20G. NO S/S OF PAIN, SOB. AFEBRILE. SKIN-SEE ASSESSMENT. ON P200 AIR MATTRESS. CONTACT PRECAUTIONS IN PLACE. BED LOCKED IN LOW POSITION, BED ALARM ON, CALL LIGHT IN REACH. WILL CONTINUE TO MONITOR PT.
[2019-08-30] MEDS ORDERED: NS 275ml ONE (13:02)
[2019-08-30] MEDS ORDERED: Tubing IV Secondary IV ONE (13:02)
--- NOTE | 2019-08-30 15:39 | Internal Med Progress Note ---
Subjective Date of Service: Aug 30, 2019 Physician Name TeixeiraNiraj Attending Physician Wil Masters MD Current Medications Medications (Trade) Dose Ordered Sig/Sandeep Route PRN Reason Start Time Stop Time Status Last Admin Dose Admin Acetaminophen (Tylenol) 650 mg Q4H PRN NG Mild Pain/Temp > 100.5 08/22/19 10:30 09/21/19 10:29 08/29/19 09:38 Acetylcysteine (Mucomyst) 400 mg Q4HRT N 08/16/19 11:00 09/15/19 10:59 08/30/19 14:39 Albuterol/ Ipratropium (Albuterol/ Ipratropium) 3 ml Q4HRT HHN 08/27/19 19:00 09/01/19 18:59 08/30/19 14:39 Apixaban (Eliquis) 5 mg BID NGT 08/16/19 09:00 09/11/19 17:59 08/30/19 09:46 Barium Sulfate (Varibar Honey) 250 ml NOW PRN Radiology Procedure 08/29/19 11:00 09/01/19 10:52 Barium Sulfate (Varibar [place]) 230 ml NOW PRN Radiology Procedure 08/29/19 11:00 09/01/19 10:52 Barium Sulfate (Varibar Pudding) 230 ml NOW PRN Radiology Procedure 08/29/19 11:00 09/01/19 10:52 Ciprofloxacin (Cipro 500mg tab) 500 mg EVERY 12 HOURS NG 08/25/19 21:00 09/01/19 20:59 08/30/19 09:46 Divalproex Sodium (Depakote Sprinkles) 500 mg Q12HR NG 08/15/19 21:00 09/14/19 20:59 08/30/19 09:47 Meropenem 1 gm/ Sodium Chloride 55 ml @ 110 mls/hr Q8HR IVPB 08/23/19 14:00 09/01/19 13:59 08/30/19 05:44 Metoclopramide HCl (Reglan) 5 mg Q6H PRN IVP Nausea & Vomiting 08/04/19 10:00 09/03/19 09:59 Pantoprazole (Protonix) 40 mg DAILY IV 08/01/19 09:00 08/31/19 08:59 08/30/19 09:46 Polyethylene Glycol (Miralax) 17 gm BEDTIME ORAL 08/20/19 21:00 09/19/19 20:59 08/29/19 21:09 Vancomycin HCl (Vanco rx to dose) 1 ea DAILY PRN MISC Per rx protocol 08/23/19 09:45 09/22/19 09:44 Vancomycin HCl 750 mg/Sodium Chloride 275 ml @ 183.333 mls/hr Q12HR IVPB 08/30/19 09:00 09/04/19 08:59 08/30/19 09:48 Allergies: Coded Allergies: LATEX (Verified Allergy, Severe, Rash on skin, 08/19/19) PENICILLIN G (Verified Allergy, Unknown, 12/02/18) Tolerates cabapenem, cephalosporin PENICILLINS (Unverified Allergy, Unknown, 12/02/18) Subjective 49 YO F with pneumonia and respiratory failure. Extubated 08/11/19. Cover for Int Conor-DR Masters. ICU. Tolerating nasal canula Objective Last Vital Signs Date Time Temp Pulse Resp B/P (MAP) Pulse Ox O2 Delivery O2 Flow Rate FiO2 08/30/19 15:04 86 20 97 Nasal Cannula 3.0 32 80 20 96 08/30/19 15:00 101/55 (70) 08/30/19 12:00 98.6 Laboratory Tests Test 08/29/19 16:00 08/30/19 06:05 Vancomycin Level Trough 40.8 ug/mL (5.0-12.0) H White Blood Count 13.7 K/UL (4.8-10.8) H Red Blood Count 4.38 M/UL (4.20-5.40) Hemoglobin 10.9 G/DL (12.0-16.0) L Hematocrit 33.5 % (37.0-47.0) L Mean Corpuscular Volume 77 FL (80-99) L Mean Corpuscular Hemoglobin 24.8 PG (27.0-31.0) L Mean Corpuscular Hemoglobin Concent 32.4 G/DL (32.0-36.0) Red Cell Distribution Width 20.9 % (11.6-14.8) H Platelet Count 415 K/UL (150-450) Mean Platelet Volume 5.1 FL (6.5-10.1) L Neutrophils (%) (Auto) 75.0 % (45.0-75.0) Lymphocytes (%) (Auto) 16.1 % (20.0-45.0) L Monocytes (%) (Auto) 5.9 % (1.0-10.0) Eosinophils (%) (Auto) 2.4 % (0.0-3.0) Basophils (%) (Auto) 0.7 % (0.0-2.0) Sodium Level 138 MMOL/L (136-145) Potassium Level 3.7 MMOL/L (3.5-5.1) Chloride Level 100 MMOL/L (98-107) Carbon Dioxide Level 33 MMOL/L (21-32) H Anion Gap 5 mmol/L (5-15) Blood Urea Nitrogen 12 mg/dL (7-18) Creatinine 0.4 MG/DL (0.55-1.30) L Estimat Glomerular Filtration Rate > 60 mL/min (>60) Glucose Level 108 MG/DL (74-106) H Calcium Level 9.0 MG/DL (8.5-10.1) Random Vancomycin Level 9.0 ug/mL Intake and Output 08/29/19 08/30/19 19:00 07:00 Intake Total 1072.416 ml 1175 ml Output Total 610 ml 705 ml Balance 462.416 ml 470 ml Intake Free Water 400 ml IV Total 367.416 ml 55 ml Tube Feeding 605 ml 660 ml Other 100 ml 60 ml Output Urine Total 610 ml 705 ml # Bowel Movements 1 2 Objective General Appearance: WD/WN, moderate distress EENT: PERRL/EOMI, normal ENT inspection Neck: non-tender, normal alignment, supple Cardiovascular: normal peripheral pulses, normal rate, regular rhythm, no gallop/murmur, no JVD Respiratory/Chest: nasal canula; crackles/rales, rhonchi - bilaterally, expiratory wheezing Abdomen: normal bowel sounds, non tender, soft, no organomegaly, no mass Skin: normal pigmentation, warm/dry Assessment/Plan Problem List: (1) Respiratory failure with hypoxia Assessment & Plan: Tolerating venturi mask. S/P extubation 08/11/19 per pulmonary=Dr Bonilla (2) Pneumonia of both lower lobes Assessment & Plan: See ID note. S/P meropenem and zyvox. Continue meropenem, amikacin and vanco. (3) UTI (urinary tract infection) Assessment & Plan: Pseudamonas, ESBL E. Coli, and vanco resistant enterococcus. See ID note; Dr Sanabria signed off. Await new ID consult= Dr Buck/Milly. S/P meropenem, linezolid and micafugin (4) Sepsis (5) Paraplegia (6) Spina bifida Niraj Teixeira MD Aug 30, 2019 15:38
--- NOTE | 2019-08-30 16:00 | NUR ---
NURSE NOTES: PT CLEANED AND REPOSITIONED. HOB>30. AX 99. COOLING MEASURES IN PLACE. SINGLE BLANKET APPLIED. PT ON P200 MATTRESS. EXTREMITIES ELEVATED ON PILLOWS. TV ON FOR INTERACTION. CALL LIGHT IN REACH. BED ALARM ON. CONTACT PRECAUTIONS IN PLACE.
--- NOTE | 2019-08-30 19:00 | NUR ---
HAND-OFF: Report given to GUILHERME Rodriguez [employer]ED [employer] MEASURES.
--- NOTE | 2019-08-30 19:30 | NUR ---
NURSE NOTES: Received report from EMMA Ribera. Patient in awake,alert verbally responsive. Watching TV. no s/s of acute distress noted. On 4L oxygen via N/C satting 100%. NGT intact Glucerna 1.5 at 55cc/hr no residual. HOB. Suprapubic cath intact draining. Left foot IV line intact. Instructed patient to use call light for assistance. bed alarm on. bed locked and in low position. contact isolation maintained and observed. bed alarm on. bed locked and in low position. Call light within easy reach. Coloring book and crayon on the table. will continue plan of care.
--- NOTE | 2019-08-30 19:58 | Pulmonolgy Critical Care Note ---
Critical Care - Asmt/Plan Assessment/Plan: Pulmonary CCM Progress Note Assessment/Plan: (1) Pneumonia of both lower lobes Assessment & Plan: VDRF, intubated 07/12/19, S/P FOB 07/12/19; Reintubated ; extubated 08/11/19, currently PRN BiPAP (2) Catheter-associated urinary tract infection Assessment & Plan: PsA and proteus - s/p treatment (3) Respiratory failure with hypoxia Assessment & Plan: Acute on chronic hypercapnic and hypoxemic RF 2/2 PNA Duplex neg, minimally elevated d-dimer, unlikely VTE and already on a NOAC (4) HCAP (healthcare-associated pneumonia) (5) Paraplegia (6) Sepsis (7) Suprapubic catheter (8) Restrictive lung disease due to kyphoscoliosis (9) Decubitus skin ulcer (10) Spina bifida (11) Anemia, acute (12) hx recurrent PE on eliquis Plan: * monitor closely * respiratory care * NGT for feeds * ABG prn * Repeat CXR next week * BiPAP qhs and prn * High risk for recurrent respiratory failure and reintubation and discussed with the patiet's family previously * If gets reintubated, will need trach placement * holding abx * Good pulmonary hygiene: duonebs and mucomyst q4 * She had recurrent PE as outpatient. Cont AC and monitor H/H Respiratory: CXR, ABG Cardiac: continue to monitor HR/BP Time Spent (Minutes): 45 Notes Reviewed: disability counselor, cardio Discussed with: nurses Critical Care - Objective Vital Signs Noted Status: awake Lungs: occasional rhonchi Heart: HS1, HS2, RRR Abdomen: soft, non-tender Extremities: mild edema Labs/Micro: noted Subjective: Less SOB still requiring frequent suctioning no fever no distress awake wears bipap at night and PRN Critical Care - Objective Last 24 Hour Vital Signs Date Time Temp Pulse Resp B/P (MAP) Pulse Ox O2 Delivery O2 Flow Rate FiO2 08/30/19 19:41 84 21 100 Nasal Cannula 3.0 32 08/30/19 19:26 96 Nasal Cannula 3.0 32 08/30/19 19:26 86 20 96 Nasal Cannula 3.0 32 08/30/19 19:00 87 19 95/60 (72) 95 2/8/20 18:00 83 20 106/70 (82) 93 08/30/19 17:00 82 19 107/71 (83) 91 08/30/19 16:24 79 19 104/59 (74) 87 08/30/19 16:00 3.0 08/30/19 16:00 Nasal Cannula 4.0 Nasal Cannula 4.0 08/30/19 16:00 89 08/30/19 16:00 99.0 95 20 88/58 (68) 94 08/30/19 15:04 86 20 97 Nasal Cannula 3.0 32 80 20 96 08/30/19 15:00 84 17 101/55 (70) 94 08/30/19 14:00 77 18 108/71 (83) 94 08/30/19 13:00 85 18 99/57 (71) 90 08/30/19 12:05 91 16 91/52 (65) 87 08/30/19 12:00 4.0 08/30/19 12:00 Nasal Cannula 4.0 Nasal Cannula 4.0 08/30/19 12:00 83 08/30/19 12:00 98.6 91 18 87/52 (64) 88 08/30/19 11:25 86 20 98 Nasal Cannula 3.0 32 87 20 95 08/30/19 11:00 85 96/62 (73) 98 08/30/19 10:00 78 16 110/69 (83) 99 08/30/19 09:00 80 17 94/57 (69) 96 08/30/19 08:02 87 19 93/59 (70) 88 08/30/19 08:00 98.4 86 16 78/47 (57) 90 08/30/19 08:00 4.0 08/30/19 08:00 Nasal Cannula 4.0 Nasal Cannula 4.0 08/30/19 08:00 78 08/30/19 07:49 88 20 97 Nasal Cannula 4.0 36 86 20 94 08/30/19 07:49 96 Nasal Cannula 4.0 36 08/30/19 07:00 86 19 110/72 (85) 98 08/30/19 06:00 80 19 113/66 (82) 99 08/30/19 05:00 92 23 91/59 (70) 95 08/30/19 04:00 Bi-pap Bi-pap 2/8/20 04:00 98.4 91 18 95/63 (74) 92 08/30/19 04:00 74 08/30/19 04:00 81 08/30/19 04:00 40 08/30/19 03:35 84 18 98 Nasal Cannula 3.0 32 84 19 80 08/30/19 03:20 79 18 112/75 (87) 100 08/30/19 03:00 75 21 78/38 (51) 98 08/30/19 02:00 77 19 99/65 (76) 98 08/30/19 01:05 78 18 100 Facial 40 08/30/19 01:00 77 14 120/66 (84) 98 08/30/19 00:03 72 14 88/53 (65) 99 08/30/19 00:00 40 08/30/19 00:00 98.8 71 15 88/55 (66) 99 08/30/19 00:00 84 08/30/19 00:00 Bi-pap Bi-pap 08/29/19 23:32 77 14 100 Facial 40 79 13 100 Bi-Pap 40 08/29/19 23:00 84 18 103/64 (77) 100 08/29/19 22:00 90 19 106/64 (78) 96 08/29/19 21:00 91 21 116/59 (78) 100 08/29/19 20:00 Nasal Cannula 4.0 Nasal Cannula 4.0 08/29/19 20:00 98.6 84 20 119/63 (81) 99 08/29/19 20:00 4.0 08/29/19 20:00 90 Accucheck: 114 Critical Care - Subjective ROS Limited/Unobtainable: No FI02: 32 Vent Support Breath Rate: 14 Vent Support Mode: BiLevel Vent Tidal Volume: 400 Sputum Amount: Small PEEP: 5.0 PIP: 22 Tube Feeding Amount: 55 I&O: Intake and Output 08/29/19 08/30/19 19:00 07:00 Intake Total 1072.416 ml 1175 ml Output Total 610 ml 705 ml Balance 462.416 ml 470 ml Intake Free Water 400 ml IV Total 367.416 ml 55 ml Tube Feeding 605 ml 660 ml Other 100 ml 60 ml Output Urine Total 610 ml 705 ml # Bowel Movements 1 2 ET-Tube: 7.5 ET Position: 23 Perfecto Youngblood MD Aug 30, 2019 19:58
[2019-08-30] MEDS: Miralax 17gm pkt ORAL SCH (20:17)
[2019-08-30] MEDS: Acetaminophen 650mg/20.3ml NG PRN (20:18)
--- NOTE | 2019-08-30 21:30 | NUR ---
NURSE NOTES: family at bedside
--- NOTE | 2019-08-30 23:45 | NUR ---
NURSE NOTES: Turned and repositioned patient in bed. BIPAP placed by RT 06/28 fi02 35% satting 99%. HOB elevated. Oral care provided and suctioned patient. No s/s of acute distress noted. No Fever. frequent visual checks continued. will continue plan of care.
[2019-08-31] VITALS (24 sets, daily range): BP systolic 83–125; BP diastolic 44–79
--- NOTE | 2019-08-31 01:45 | NUR ---
NURSE NOTES: Patient in bed sleeping comfortably. HOB elevated. oral care provided. continue on BIPAP 06/28 fi02 35% satting 100%. HOB elevated. call light within easy reach. will continue plan of care.
[2019-08-31] MEDS: Acetylcysteine 20% Soln 4ml HHN SCH ×6 (03:19→22:57)
[2019-08-31] MEDS: Albuterol/Ipratropium 3ml neb HHN SCH ×6 (03:19→22:57)
--- NOTE | 2019-08-31 04:00 | NUR ---
NURSE NOTES: Bed bath given tolerated well. with x1 soft yellowish bm. kept clean and dry.
[2019-08-31 05:47] LABS: BASOPHILS % (AUTO) 0.8 % (0.0-2.0); EOSINOPHILS % (AUTO) 3.2 % (0.0-3.0); HEMATOCRIT 34.5 % (37.0-47.0); LYMPHOCYTES % (AUTO) 19.4 % (20.0-45.0); MEAN CORPUSCULAR VOLUME 78 FL (80-99); NEUTROPHILS % (AUTO) 70.5 % (45.0-75.0); PLATELET COUNT 415 K/UL (150-450); RED BLOOD COUNT 4.44 M/UL (4.20-5.40); RED CELL DISTRIBUTION WIDTH 21.2 % (11.6-14.8); WHITE BLOOD COUNT 13.8 K/UL (4.8-10.8)
--- NOTE | 2019-08-31 06:00 | NUR ---
NURSE NOTES: patient in bed watching TV. BIPAP 06/28 fi02 35% satting 100%. HOB elevated. denies any pain or discomfort. no fever no n/v no diarrhea, will continue plan of care. call light within easy reach.
[2019-08-31 06:45] LABS: ANION GAP 6 mmol/L (5-15); BLOOD UREA NITROGEN 16 mg/dL (7-18); CALCIUM 9.5 MG/DL (8.5-10.1); CARBON DIOXIDE 32 MMOL/L (21-32); CHLORIDE 102 MMOL/L (98-107); CREATININE 0.3 MG/DL (0.55-1.30); SODIUM 140 MMOL/L (136-145)
[2019-08-31] MEDS: Meropenem 1 GM in NS 55 ML IVPB SCH ×3 (06:48→21:00)
--- NOTE | 2019-08-31 07:18 | NUR ---
HAND-OFF: Report given to Karlos CARTER.
--- NOTE | 2019-08-31 07:21 | NUR ---
NURSE NOTES: Received patient from Ioana CARTER. Patient is awake, alert and oriented x2. Sinus Rhythm on the monitor, HR 72. Currently eceiving breathing treatment given by RT. Right NGT is intact and receiving Glucerna 1.5 at 50cc/hr. Suprapubic catheter is intact and draining. IV site is Left foot 20g, intact and patent. Bed is locked, placed in lowest position, side rails up x3, bed alarm on, head of bed elevated, call light within reach. Will continue to monitor.
[2019-08-31] MEDS: Depakote 125mg Sprinkles NG SCH ×2 (08:43→20:53)
[2019-08-31] MEDS: Ciprofloxacin 500mg tab NG SCH ×2 (08:43→20:53)
[2019-08-31] MEDS: Eliquis 5mg tablet NGT SCH ×2 (08:43→17:53)
[2019-08-31] MEDS: Vancomycin 750mg/NS 275ml IVPB SCH ×4 (08:44→21:51)
--- NOTE | 2019-08-31 09:20 | General Progress Note ---
Assessment/Plan Problem List: (1) Spina bifida ICD Codes: Q05.9 - Spina bifida, unspecified SNOMED: 56068067 Qualifiers: Qualified Codes: Q05.4 - Unspecified spina bifida with hydrocephalus (2) Respiratory failure with hypoxia ICD Codes: J96.91 - Respiratory failure, unspecified with hypoxia SNOMED: 51848998806740805 Qualifiers: Qualified Codes: J96.21 - Acute and chronic respiratory failure with hypoxia (3) Dysphagia ICD Codes: R13.10 - Dysphagia, unspecified SNOMED: 65104361, 723389716 (4) UTI (urinary tract infection) ICD Codes: N39.0 - Urinary tract infection, site not specified SNOMED: 00766674, 559853245 Qualifiers: Qualified Codes: N30.00 - Acute cystitis without hematuria (5) Paraplegia ICD Codes: G82.20 - Paraplegia, unspecified SNOMED: 95254144 (6) Anemia ICD Codes: D64.9 - Anemia, unspecified SNOMED: 256234604 Status: unchanged Assessment/Plan: extubated on BIPAP at night on venti mask ppi repeat labs fu H&H stool ob neg x1 reglan NGTF for now failed swallow study again will need peg but family refusing>>>d/w again at length again today abx per ID fu pulm recs will fu Subjective ROS Limited/Unobtainable: No Allergies: Coded Allergies: LATEX (Verified Allergy, Severe, Rash on skin, 08/19/19) PENICILLIN G (Verified Allergy, Unknown, 12/02/18) Tolerates cabapenem, cephalosporin PENICILLINS (Unverified Allergy, Unknown, 12/02/18) Objective Last 24 Hour Vital Signs Date Time Temp Pulse Resp B/P (MAP) Pulse Ox O2 Delivery O2 Flow Rate FiO2 08/31/19 08:00 Bi-pap Bi-pap 08/31/19 08:00 98.1 77 17 95/53 (67) 98 08/31/19 08:00 3.0 08/31/19 07:00 74 15 100 Nasal Cannula 3.0 32 74 13 100 08/31/19 07:00 73 16 109/63 (78) 97 08/31/19 06:59 96 Nasal Cannula 3.0 32 08/31/19 06:00 70 16 105/67 (80) 100 08/31/19 05:21 75 23 100 Facial 35 08/31/19 05:00 75 17 98/46 (63) 99 08/31/19 04:00 35 08/31/19 04:00 98.3 73 22 111/68 (82) 100 08/31/19 04:00 Bi-pap Bi-pap 08/31/19 04:00 75 08/31/19 03:34 74 19 100 Bi-Pap 35 08/31/19 03:19 70 17 100 Facial 35 08/31/19 03:19 70 17 100 Bi-Pap 35 08/31/19 03:00 66 15 105/65 (78) 85 08/31/19 02:00 73 15 94/61 (72) 89 08/31/19 01:15 86 17 98 Facial 35 08/31/19 01:00 90 23 112/72 (85) 99 08/31/19 00:00 Bi-pap Bi-pap 08/31/19 00:00 98.8 87 15 102/66 (78) 98 08/31/19 00:00 84 08/30/19 23:47 35 08/30/19 23:40 94 24 100 Facial 35 08/30/19 23:38 89 23 100 Bi-Pap 35 08/30/19 23:23 88 22 98 Nasal Cannula 3.0 32 08/30/19 23:00 88 21 105/65 (78) 98 08/30/19 22:00 85 21 105/67 (80) 98 08/30/19 21:00 99.0 93 19 107/64 (78) 99 08/30/19 20:48 99.0 08/30/19 20:00 98 08/30/19 20:00 100.6 96 20 97/65 (76) 94 08/30/19 20:00 4.0 08/30/19 20:00 Nasal Cannula 4.0 Nasal Cannula 4.0 08/30/19 19:41 84 21 100 Nasal Cannula 3.0 32 08/30/19 19:26 96 Nasal Cannula 3.0 32 08/30/19 19:26 86 20 96 Nasal Cannula 3.0 32 08/30/19 19:00 87 19 95/60 (72) 95 08/30/19 18:00 83 20 106/70 (82) 93 08/30/19 17:00 82 19 107/71 (83) 91 08/30/19 16:24 79 19 104/59 (74) 87 08/30/19 16:00 3.0 08/30/19 16:00 Nasal Cannula 4.0 Nasal Cannula 4.0 08/30/19 16:00 89 08/30/19 16:00 99.0 95 20 88/58 (68) 94 08/30/19 15:04 86 20 97 Nasal Cannula 3.0 32 80 20 96 08/30/19 15:00 84 17 101/55 (70) 94 08/30/19 14:00 77 18 108/71 (83) 94 08/30/19 13:00 85 18 99/57 (71) 90 08/30/19 12:05 91 16 91/52 (65) 87 08/30/19 12:00 4.0 08/30/19 12:00 Nasal Cannula 4.0 Nasal Cannula 4.0 08/30/19 12:00 83 08/30/19 12:00 98.6 91 18 87/52 (64) 88 08/30/19 11:25 86 20 98 Nasal Cannula 3.0 32 87 20 95 08/30/19 11:00 85 96/62 (73) 98 08/30/19 10:00 78 16 110/69 (83) 99 Intake and Output 08/30/19 08/31/19 19:00 07:00 Intake Total 1076.666 ml 1250.000 ml Output Total 490 ml 511 ml Balance 586.666 ml 739.000 ml Intake Free Water 200 ml IV Total 366.666 ml 330.000 ml Tube Feeding 660 ml 660 ml Other 50 ml 60 ml Output Urine Total 490 ml 510 ml Stool Total 1 ml # Bowel Movements 1 Laboratory Tests 08/31/19 04:55: White Blood Count 13.8H, Red Blood Count 4.44, Hemoglobin 11.0L, Hematocrit 34.5L, Mean Corpuscular Volume 78L, Mean Corpuscular Hemoglobin 24.8L, Mean Corpuscular Hemoglobin Concent 31.9L, Red Cell Distribution Width 21.2H, Platelet Count 415, Mean Platelet Volume 5.3L, Neutrophils (%) (Auto) 70.5, Lymphocytes (%) (Auto) 19.4L, Monocytes (%) (Auto) 6.0, Eosinophils (%) (Auto) 3.2H, Basophils (%) (Auto) 0.8, Sodium Level 140, Potassium Level 4.0, Chloride Level 102, Carbon Dioxide Level 32, Anion Gap 6, Blood Urea Nitrogen 16, Creatinine 0.3L, Estimat Glomerular Filtration Rate > 60, Glucose Level 109H, Calcium Level 9.5 Height (Feet): 4 Height (Inches): 10.00 Weight (Pounds): 120 General Appearance: lethargic EENT: normal ENT inspection Neck: supple Cardiovascular: normal rate Respiratory/Chest: decreased breath sounds Abdomen: normal bowel sounds, non tender, soft Extremities: non-tender Tim Davis MD Aug 31, 2019 09:20
--- NOTE | 2019-08-31 10:08 | NUR ---
NURSE NOTES: Patient is resting comfortably in bed, oral care done on patient. No signs of acute distress, will continue to monitor.
--- NOTE | 2019-08-31 12:44 | NUR ---
NURSE NOTES: Repositioned patient, no signs of acute distress. Will continue to monitor.
--- NOTE | 2019-08-31 14:19 | Internal Med Progress Note ---
Subjective Date of Service: Aug 31, 2019 Physician Name TeixeiraNiraj Attending Physician Wil Masters MD Current Medications Medications (Trade) Dose Ordered Sig/Sandeep Route PRN Reason Start Time Stop Time Status Last Admin Dose Admin Acetaminophen (Tylenol) 650 mg Q4H PRN NG Mild Pain/Temp > 100.5 08/22/19 10:30 09/21/19 10:29 08/30/19 20:18 Acetylcysteine (Mucomyst) 400 mg Q4HRT N 08/16/19 11:00 09/15/19 10:59 08/31/19 10:51 Albuterol/ Ipratropium (Albuterol/ Ipratropium) 3 ml Q4HRT HHN 08/27/19 19:00 09/01/19 18:59 08/31/19 10:51 Apixaban (Eliquis) 5 mg BID NGT 08/16/19 09:00 09/11/19 17:59 08/31/19 08:43 Barium Sulfate (Varibar Honey) 250 ml NOW PRN Radiology Procedure 08/29/19 11:00 09/01/19 10:52 Barium Sulfate (Varibar [place]) 230 ml NOW PRN Radiology Procedure 08/29/19 11:00 09/01/19 10:52 Barium Sulfate (Varibar Pud[place]) 230 ml NOW PRN Radiology Procedure 08/29/19 11:00 09/01/19 10:52 Ciprofloxacin (Cipro 500mg tab) 500 mg EVERY 12 HOURS NG 08/25/19 21:00 09/01/19 20:59 08/31/19 08:43 Divalproex Sodium (Depakote Sprinkles) 500 mg Q12HR NG 08/15/19 21:00 09/14/19 20:59 08/31/19 08:43 Meropenem 1 gm/ Sodium Chloride 55 ml @ 110 mls/hr Q8HR IVPB 08/23/19 14:00 09/01/19 13:59 08/31/19 13:48 Metoclopramide HCl (Reglan) 5 mg Q6H PRN IVP Nausea & Vomiting 08/04/19 10:00 09/03/19 09:59 Polyethylene Glycol (Miralax) 17 gm BEDTIME ORAL 08/20/19 21:00 09/19/19 20:59 08/30/19 20:17 Vancomycin HCl (Vanco rx to dose) 1 ea DAILY PRN MISC Per rx protocol 08/23/19 09:45 09/22/19 09:44 Vancomycin HCl 750 mg/Sodium Chloride 275 ml @ 183.333 mls/hr Q12HR IVPB 08/30/19 09:00 09/04/19 08:59 08/31/19 08:44 Allergies: Coded Allergies: LATEX (Verified Allergy, Severe, Rash on skin, 08/19/19) PENICILLIN G (Verified Allergy, Unknown, 12/02/18) Tolerates cabapenem, cephalosporin PENICILLINS (Unverified Allergy, Unknown, 12/02/18) ROS Limited/Unobtainable: Yes Subjective 49 YO F with pneumonia and respiratory failure. Extubated 08/11/19. Cover for Int Med-DR Masters. ICU. BIPAP Objective Last Vital Signs Date Time Temp Pulse Resp B/P (MAP) Pulse Ox O2 Delivery O2 Flow Rate FiO2 08/31/19 14:00 95 20 102/54 (70) 100 08/31/19 12:00 Bi-pap Bi-pap 08/31/19 12:00 98.0 08/31/19 12:00 3.0 08/31/19 10:49 32 Laboratory Tests Test 08/31/19 04:55 White Blood Count 13.8 K/UL (4.8-10.8) H Red Blood Count 4.44 M/UL (4.20-5.40) Hemoglobin 11.0 G/DL (12.0-16.0) L Hematocrit 34.5 % (37.0-47.0) L Mean Corpuscular Volume 78 FL (80-99) L Mean Corpuscular Hemoglobin 24.8 PG (27.0-31.0) L Mean Corpuscular Hemoglobin Concent 31.9 G/DL (32.0-36.0) L Red Cell Distribution Width 21.2 % (11.6-14.8) H Platelet Count 415 K/UL (150-450) Mean Platelet Volume 5.3 FL (6.5-10.1) L Neutrophils (%) (Auto) 70.5 % (45.0-75.0) Lymphocytes (%) (Auto) 19.4 % (20.0-45.0) L Monocytes (%) (Auto) 6.0 % (1.0-10.0) Eosinophils (%) (Auto) 3.2 % (0.0-3.0) H Basophils (%) (Auto) 0.8 % (0.0-2.0) Sodium Level 140 MMOL/L (136-145) Potassium Level 4.0 MMOL/L (3.5-5.1) Chloride Level 102 MMOL/L (98-107) Carbon Dioxide Level 32 MMOL/L (21-32) Anion Gap 6 mmol/L (5-15) Blood Urea Nitrogen 16 mg/dL (7-18) Creatinine 0.3 MG/DL (0.55-1.30) L Estimat Glomerular Filtration Rate > 60 mL/min (>60) Glucose Level 109 MG/DL (74-106) H Calcium Level 9.5 MG/DL (8.5-10.1) Intake and Output 08/30/19 08/31/19 19:00 07:00 Intake Total 1076.666 ml 1250.000 ml Output Total 490 ml 511 ml Balance 586.666 ml 739.000 ml Intake Free Water 200 ml IV Total 366.666 ml 330.000 ml Tube Feeding 660 ml 660 ml Other 50 ml 60 ml Output Urine Total 490 ml 510 ml Stool Total 1 ml # Bowel Movements 1 Objective General Appearance: WD/WN, moderate distress EENT: PERRL/EOMI, normal ENT inspection Neck: non-tender, normal alignment, supple Cardiovascular: normal peripheral pulses, normal rate, regular rhythm, no gallop/murmur, no JVD Respiratory/Chest: BIPAP; crackles/rales, rhonchi - bilaterally, expiratory wheezing Abdomen: normal bowel sounds, non tender, soft, no organomegaly, no mass Skin: normal pigmentation, warm/dry Assessment/Plan Problem List: (1) Respiratory failure with hypoxia Assessment & Plan: Tolerating venturi mask. S/P extubation 08/11/19 per pulmonary=Dr Bonilla (2) Pneumonia of both lower lobes Assessment & Plan: See ID note. Continue meropenem and vanco. (3) UTI (urinary tract infection) Assessment & Plan: Pseudamonas, ESBL E. Coli, and vanco resistant enterococcus. See ID note; Dr Sanabria signed off. Await new ID consult= Dr Buck/Milly. S/P meropenem, linezolid and micafugin (4) Sepsis (5) Paraplegia (6) Spina bifida Niraj Teixeira MD Aug 31, 2019 14:19
--- NOTE | 2019-08-31 14:26 | NUR ---
NURSE NOTES: Patient seen and assessed by Dr. Youngblood.
--- NOTE | 2019-08-31 17:38 | NUR ---
NURSE NOTES: Gave bed bath to patient, bowel movement noted. Patient tolerated well, no signs of acute distress. Will continue to monitor.
--- NOTE | 2019-08-31 18:30 | NUR ---
NURSE NOTES: RN and Charge Nurse spoke with family regarding transferring patient to SDU, family members agreed with transfer.
--- NOTE | 2019-08-31 19:23 | NUR ---
HAND-OFF: Report given to Ioana CARTER.
--- NOTE | 2019-08-31 19:30 | NUR ---
NURSE NOTES: Received report from EMMA [place]. Patient in awake,alert verbally responsive. Watching TV. no s/s of acute distress noted. On 3L oxygen via N/C satting 100%. NGT intact Glucerna 1.5 at 55cc/hr no residual. HOB. Suprapubic cath intact draining. Left foot IV line intact. Family at bedside. Instructed patient to use call light for assistance. bed alarm on. bed locked and in low position. contact isolation maintained and observed. bed alarm on. bed locked and in low position. Call light within easy reach. Coloring book and crayon on the table. will continue plan of care.
[2019-08-31] MEDS: Miralax 17gm pkt ORAL SCH (20:52)
--- NOTE | 2019-08-31 20:58 | Pulmonolgy Critical Care Note ---
Critical Care - Asmt/Plan Assessment/Plan: Pulmonary CCM Progress Note Assessment/Plan: (1) Pneumonia of both lower lobes Assessment & Plan: VDRF, intubated 07/12/19, S/P FOB 07/12/19; Reintubated ; extubated 08/11/19, currently NC O2, PRN BiPAP (2) Catheter-associated urinary tract infection Assessment & Plan: PsA and proteus - s/p treatment (3) Respiratory failure with hypoxia Assessment & Plan: Acute on chronic hypercapnic and hypoxemic RF 2/2 PNA Duplex neg, minimally elevated d-dimer, unlikely VTE and already on a NOAC (4) HCAP (healthcare-associated pneumonia) (5) Paraplegia (6) Sepsis (7) Suprapubic catheter (8) Restrictive lung disease due to kyphoscoliosis (9) Decubitus skin ulcer (10) Spina bifida (11) Anemia, acute (12) hx recurrent PE on eliquis Plan: * monitor closely * respiratory care * NGT for feeds * ABG prn * Repeat CXR next week * BiPAP qhs and prn * High risk for recurrent respiratory failure and reintubation and discussed with the patiet's family previously * If gets reintubated, will need trach placement * holding abx * Good pulmonary hygiene: duonebs and mucomyst q4 * She had recurrent PE as outpatient. Cont AC and monitor H/H Respiratory: CXR, ABG Cardiac: continue to monitor HR/BP Time Spent (Minutes): 45 Notes Reviewed: time study engineer, cardio Discussed with: nurses, PMD Critical Care - Objective Vital Signs Noted Status: awake Lungs: CTA Heart: HS1, HS2, RRR Abdomen: soft, non-tender Extremities: mild edema Labs/Micro: noted Subjective: Less SOB, mainly on NC O2 still requiring frequent suctioning no fever no distress awake wears bipap at night and PRN Critical Care - Objective Last 24 Hour Vital Signs Date Time Temp Pulse Resp B/P (MAP) Pulse Ox O2 Delivery O2 Flow Rate FiO2 08/31/19 19:28 88 21 99 Nasal Cannula 3.0 32 08/31/19 19:13 86 20 97 Nasal Cannula 3.0 32 08/31/19 19:13 97 Nasal Cannula 3.0 32 08/31/19 19:00 85 19 106/79 (88) 100 08/31/19 18:00 87 24 104/56 (72) 93 08/31/19 17:00 Nasal Cannula 3.0 Nasal Cannula 3.0 Bi-pap Bi-pap 08/31/19 17:00 98.0 90 14 107/50 (69) 100 08/31/19 16:00 92 16 112/50 (70) 92 08/31/19 16:00 3.0 08/31/19 16:00 Nasal Cannula 3.0 Nasal Cannula 3.0 Bi-pap Bi-pap 08/31/19 15:33 81 08/31/19 15:00 89 17 111/45 (67) 100 08/31/19 14:41 85 19 98 Nasal Cannula 3.0 32 80 18 96 08/31/19 14:40 80 12 96 Nasal Cannula 3.0 32 08/31/19 14:00 95 20 102/54 (70) 100 08/31/19 13:00 85 14 99/52 (68) 90 08/31/19 12:39 84 08/31/19 12:00 Bi-pap Bi-pap 08/31/19 12:00 98.0 80 15 83/52 (62) 95 08/31/19 12:00 3.0 08/31/19 11:00 74 16 110/56 (74) 98 08/31/19 10:49 74 15 99 Nasal Cannula 3.0 32 75 16 98 08/31/19 10:00 77 14 90/53 (65) 98 08/31/19 09:00 80 17 108/63 (78) 97 08/31/19 08:00 Bi-pap Bi-pap 08/31/19 08:00 98.1 77 17 95/53 (67) 98 08/31/19 08:00 3.0 08/31/19 07:27 82 08/31/19 07:00 74 15 100 Nasal Cannula 3.0 32 74 13 100 08/31/19 07:00 73 16 109/63 (78) 97 08/31/19 06:59 96 Nasal Cannula 3.0 32 08/31/19 06:00 70 16 105/67 (80) 100 08/31/19 05:21 75 23 100 Facial 35 08/31/19 05:00 75 17 98/46 (63) 99 08/31/19 04:00 35 08/31/19 04:00 98.3 73 22 111/68 (82) 100 08/31/19 04:00 Bi-pap Bi-pap 08/31/19 04:00 75 08/31/19 03:34 74 19 100 Bi-Pap 35 08/31/19 03:19 70 17 100 Facial 35 08/31/19 03:19 70 17 100 Bi-Pap 35 08/31/19 03:00 66 15 105/65 (78) 85 08/31/19 02:00 73 15 94/61 (72) 89 08/31/19 01:15 86 17 98 Facial 35 08/31/19 01:00 90 23 112/72 (85) 99 08/31/19 00:00 Bi-pap Bi-pap 08/31/19 00:00 98.8 87 15 102/66 (78) 98 08/31/19 00:00 84 08/30/19 23:47 35 08/30/19 23:40 94 24 100 Facial 35 08/30/19 23:38 89 23 100 Bi-Pap 35 08/30/19 23:23 88 22 98 Nasal Cannula 3.0 32 08/30/19 23:00 88 21 105/65 (78) 98 08/30/19 22:00 85 21 105/67 (80) 98 08/30/19 21:00 99.0 93 19 107/64 (78) 99 Accucheck: 114 Critical Care - Subjective ROS Limited/Unobtainable: No Condition: improving EKG Rhythm: Sinus Rhythm FI02: 32 Vent Support Breath Rate: 14 Vent Support Mode: BiLevel Vent Tidal Volume: 400 Sputum Amount: Small PEEP: 5.0 PIP: 22 Tube Feeding Amount: 55 I&O: Intake and Output 08/30/19 08/31/19 19:00 07:00 Intake Total 1076.666 ml 1250.000 ml Output Total 490 ml 511 ml Balance 586.666 ml 739.000 ml Intake Free Water 200 ml IV Total 366.666 ml 330.000 ml Tube Feeding 660 ml 660 ml Other 50 ml 60 ml Output Urine Total 490 ml 510 ml Stool Total 1 ml # Bowel Movements 1 ET-Tube: 7.5 ET Position: 23 Perfecto Youngblood MD Aug 31, 2019 20:58
--- NOTE | 2019-08-31 22:30 | NUR ---
NURSE NOTES: Patient in bed awake,alert watching TV. Turned and repositioned patient in bed. on 3L oxygen via N/C satting 99%. HOB elevated. Oral care provided and suctioned patient. No s/s of acute distress noted. No Fever. frequent visual checks continued. suprapubic cath intact draining with dark christy urine. will continue plan of care.
[2019-09-01] VITALS (25 sets, daily range): BP systolic 89–116; BP diastolic 35–73
--- NOTE | 2019-09-01 01:30 | NUR ---
NURSE NOTES: Patient in bed sleeping comfortably. on BIPAP 06/28 fi02 35% satting 100%. HOB elevated. no s/s of acute distress noted. call light within easy reach will continue plan of care.
[2019-09-01] MEDS: Albuterol/Ipratropium 3ml neb HHN SCH ×6 (03:08→23:00)
[2019-09-01] MEDS: Acetylcysteine 20% Soln 4ml HHN SCH ×6 (03:08→23:00)
--- NOTE | 2019-09-01 03:30 | NUR ---
NURSE NOTES: Bed bath given. oral care provided. no n/v. no fever. NGT intact infusing Glucerna 1.5 at 55cc/hr. will continue plan of care.
[2019-09-01 06:31] LABS: HEMATOCRIT 32.4 % (37.0-47.0); HEMOGLOBIN 10.5 G/DL (12.0-16.0); MEAN CORPUSCULAR VOLUME 77 FL (80-99); PLATELET COUNT 362 K/UL (150-450); RED BLOOD COUNT 4.21 M/UL (4.20-5.40); RED CELL DISTRIBUTION WIDTH 21.1 % (11.6-14.8); WHITE BLOOD COUNT 20.6 K/UL (4.8-10.8)
[2019-09-01 06:42] LABS: ANION GAP 6 mmol/L (5-15); BLOOD UREA NITROGEN 18 mg/dL (7-18); CALCIUM 9.3 MG/DL (8.5-10.1); CARBON DIOXIDE 30 MMOL/L (21-32); CHLORIDE 104 MMOL/L (98-107); CREATININE 0.2 MG/DL (0.55-1.30); SODIUM 140 MMOL/L (136-145)
--- NOTE | 2019-09-01 07:30 | NUR ---
HAND-OFF: Report given to Tiana CARTER.
--- NOTE | 2019-09-01 07:35 | NUR ---
NURSE NOTES: Report received from Ioana Granado RN.Pt resting quietly in bed eyes closed, on high fowlers easily awakens with verbal command,,on 3 L NC noted no resp distress SR on the monitor,NGT feeding to RT nare Glucerna 1.5 at 55 ml/hr,in placed per auscultation,no residual noted,Supra pubic catheter draining yellow urine skin warm and dry with IV site to RT foot intact,SR up x2 HOB elevated bed lock in lowest position, will continue with plans of care.
[2019-09-01] MEDS: Meropenem 1 GM in NS 55 ML IVPB SCH ×3 (07:42→21:29)
--- NOTE | 2019-09-01 08:50 | General Progress Note ---
Assessment/Plan Problem List: (1) Spina bifida ICD Codes: Q05.9 - Spina bifida, unspecified SNOMED: 37579861 Qualifiers: Qualified Codes: Q05.4 - Unspecified spina bifida with hydrocephalus (2) Respiratory failure with hypoxia ICD Codes: J96.91 - Respiratory failure, unspecified with hypoxia SNOMED: 58953172668195108 Qualifiers: Qualified Codes: J96.21 - Acute and chronic respiratory failure with hypoxia (3) Dysphagia ICD Codes: R13.10 - Dysphagia, unspecified SNOMED: 76823602, 323669240 (4) UTI (urinary tract infection) ICD Codes: N39.0 - Urinary tract infection, site not specified SNOMED: 67378719, 287924729 Qualifiers: Qualified Codes: N30.00 - Acute cystitis without hematuria (5) Paraplegia ICD Codes: G82.20 - Paraplegia, unspecified SNOMED: 75116725 (6) Anemia ICD Codes: D64.9 - Anemia, unspecified SNOMED: 798061317 Status: unchanged Assessment/Plan: extubated on BIPAP at night on venti mask ppi repeat labs fu H&H stool ob neg x1 reglan NGTF for now failed swallow study will need peg but family refusing>>>d/w again at length again yesterday both her sister and brother abx per ID fu pulm recs will fu Subjective ROS Limited/Unobtainable: No Allergies: Coded Allergies: LATEX (Verified Allergy, Severe, Rash on skin, 08/19/19) PENICILLIN G (Verified Allergy, Unknown, 12/02/18) Tolerates cabapenem, cephalosporin PENICILLINS (Unverified Allergy, Unknown, 12/02/18) Objective Last 24 Hour Vital Signs Date Time Temp Pulse Resp B/P (MAP) Pulse Ox O2 Delivery O2 Flow Rate FiO2 09/01/19 08:21 98 Nasal Cannula 3.0 28 09/01/19 08:21 90 20 99 Nasal Cannula 3.0 32 90 22 98 09/01/19 08:18 3.0 09/01/19 08:00 Nasal Cannula 3.0 Nasal Cannula 3.0 Nasal Cannula 3.0 09/01/19 08:00 98.0 87 16 96/59 (71) 97 09/01/19 07:00 91 18 111/66 (81) 89 09/01/19 06:00 96 18 109/66 (80) 92 09/01/19 05:00 94 19 94/65 (75) 100 09/01/19 04:00 35 09/01/19 04:00 91 09/01/19 04:00 98.0 100 21 93/59 (70) 95 09/01/19 04:00 Bi-pap 3.0 Nasal Cannula Bi-pap 09/01/19 03:23 104 23 98 Nasal Cannula 3.0 32 09/01/19 03:08 96 24 97 Nasal Cannula 3.0 32 09/01/19 03:00 94 21 99/60 (73) 96 09/01/19 02:00 93 23 112/71 (85) 92 09/01/19 01:12 95 21 97/67 (77) 84 09/01/19 01:00 95 18 89/35 (53) 91 09/01/19 00:49 95 25 98 Facial 35 09/01/19 00:00 98.6 90 18 104/53 (70) 92 09/01/19 00:00 35 09/01/19 00:00 81 09/01/19 00:00 Bi-pap 3.0 Nasal Cannula Bi-pap 08/31/19 23:12 96 25 99 Facial 35 08/31/19 23:12 96 21 99 Bi-Pap 35 08/31/19 23:00 87 21 125/77 (93) 98 08/31/19 22:57 91 22 96 Nasal Cannula 3.0 32 08/31/19 22:00 91 18 112/68 (83) 90 08/31/19 21:00 90 15 97/44 (61) 90 08/31/19 20:00 86 08/31/19 20:00 3.0 08/31/19 20:00 Nasal Cannula 3.0 Nasal Cannula 3.0 Nasal Cannula 3.0 08/31/19 20:00 98.0 99 16 112/60 (77) 94 08/31/19 19:28 88 21 99 Nasal Cannula 3.0 32 08/31/19 19:13 86 20 97 Nasal Cannula 3.0 32 08/31/19 19:13 97 Nasal Cannula 3.0 32 08/31/19 19:00 85 19 106/79 (88) 100 08/31/19 18:00 87 24 104/56 (72) 93 08/31/19 17:00 Nasal Cannula 3.0 Nasal Cannula 3.0 Bi-pap Bi-pap 08/31/19 17:00 98.0 90 14 107/50 (69) 100 08/31/19 16:00 92 16 112/50 (70) 92 08/31/19 16:00 3.0 08/31/19 16:00 Nasal Cannula 3.0 Nasal Cannula 3.0 Bi-pap Bi-pap 08/31/19 15:33 81 08/31/19 15:00 89 17 111/45 (67) 100 08/31/19 14:41 85 19 98 Nasal Cannula 3.0 32 80 18 96 08/31/19 14:40 80 12 96 Nasal Cannula 3.0 32 08/31/19 14:00 95 20 102/54 (70) 100 08/31/19 13:00 85 14 99/52 (68) 90 08/31/19 12:39 84 08/31/19 12:00 Bi-pap Bi-pap 08/31/19 12:00 98.0 80 15 83/52 (62) 95 08/31/19 12:00 3.0 08/31/19 11:00 74 16 110/56 (74) 98 08/31/19 10:49 74 15 99 Nasal Cannula 3.0 32 75 16 98 08/31/19 10:00 77 14 90/53 (65) 98 08/31/19 09:00 80 17 108/63 (78) 97 Intake and Output 08/31/19 09/01/19 19:00 07:00 Intake Total 1045.000 ml 1650.000 ml Output Total 585 ml 550 ml Balance 460.000 ml 1100.000 ml Intake Free Water 600 ml IV Total 385.000 ml 330.000 ml Tube Feeding 660 ml 660 ml Other 60 ml Output Urine Total 585 ml 550 ml # Bowel Movements 1 2 Laboratory Tests 08/31/19 20:20: Vancomycin Level Trough 12.3H 09/01/19 05:30: White Blood Count 20.6H, Red Blood Count 4.21, Hemoglobin 10.5L, Hematocrit 32.4L, Mean Corpuscular Volume 77L, Mean Corpuscular Hemoglobin 24.8L, Mean Corpuscular Hemoglobin Concent 32.3, Red Cell Distribution Width 21.1H, Platelet Count 362, Mean Platelet Volume 5.3L, Neutrophils (%) (Auto) , Lymphocytes (%) (Auto) , Monocytes (%) (Auto) , Eosinophils (%) (Auto) , Basophils (%) (Auto) , Neutrophils % (Manual) [Pending], Lymphocytes % (Manual) [Pending], Platelet Estimate [Pending], Platelet Morphology [Pending], Sodium Level 140, Potassium Level 4.0, Chloride Level 104, Carbon Dioxide Level 30, Anion Gap 6, Blood Urea Nitrogen 18, Creatinine 0.2L, Estimat Glomerular Filtration Rate > 60, Glucose Level 116H, Calcium Level 9.3 Height (Feet): 4 Height (Inches): 10.00 Weight (Pounds): 119 General Appearance: no apparent distress, lethargic EENT: normal ENT inspection Neck: supple Respiratory/Chest: decreased breath sounds Abdomen: normal bowel sounds, non tender, soft Tim Davis MD Sep 01, 2019 08:50
[2019-09-01] MEDS ORDERED: NS 275ml ONE (09:38)
[2019-09-01] MEDS: Ciprofloxacin 500mg tab NG SCH ×2 (09:38→21:30)
[2019-09-01] MEDS: Vancomycin 750mg/NS 275ml IVPB SCH ×2 (09:38)
[2019-09-01] MEDS ORDERED: Tubing IV Secondary IV ONE (09:38)
[2019-09-01] MEDS: Eliquis 5mg tablet NGT SCH ×2 (09:39→17:48)
[2019-09-01] MEDS: Depakote 125mg Sprinkles NG SCH ×2 (09:39→21:30)
--- NOTE | 2019-09-01 09:42 | Pulmonolgy Critical Care Note ---
Critical Care - Asmt/Plan Assessment/Plan: Pulmonary CCM Progress Note Assessment/Plan: (1) Pneumonia of both lower lobes Assessment & Plan: VDRF, intubated 07/12/19, S/P FOB 07/12/19; Reintubated ; extubated 08/11/19, currently NC O2, PRN BiPAP (2) Catheter-associated urinary tract infection Assessment & Plan: PsA and proteus - s/p treatment (3) Respiratory failure with hypoxia Assessment & Plan: Acute on chronic hypercapnic and hypoxemic RF 2/2 PNA Duplex neg, minimally elevated d-dimer, unlikely VTE and already on a NOAC (4) HCAP (healthcare-associated pneumonia) (5) Paraplegia (6) Sepsis (7) Suprapubic catheter (8) Restrictive lung disease due to kyphoscoliosis (9) Decubitus skin ulcer (10) Spina bifida (11) Anemia, acute (12) hx recurrent PE on eliquis Plan: * monitor closely * respiratory care * NGT for feeds * ABG prn * DW PMD - consider LTACweek * BiPAP qhs and prn * High risk for recurrent respiratory failure and reintubation and discussed with the patiet's family previously * If gets reintubated, will need trach placement * holding abx * Good pulmonary hygiene: duonebs and mucomyst q4 * She had recurrent PE as outpatient. Cont AC and monitor H/H Respiratory: CXR, ABG Cardiac: continue to monitor HR/BP Time Spent (Minutes): 45 Notes Reviewed: district branch manager, cardio Discussed with: nurses, PMD Critical Care - Objective Vital Signs Noted Status: awake Lungs: CTA Heart: HS1, HS2, RRR Abdomen: soft, non-tender Extremities: mild edema Labs/Micro: noted Subjective: Less SOB, mainly on NC O2 still requiring frequent suctioning no fever no distress awake wears bipap at night and PRN Seen earlier Critical Care - Objective Last 24 Hour Vital Signs Date Time Temp Pulse Resp B/P (MAP) Pulse Ox O2 Delivery O2 Flow Rate FiO2 09/01/19 08:21 98 Nasal Cannula 3.0 28 09/01/19 08:21 90 20 99 Nasal Cannula 3.0 32 90 22 98 09/01/19 08:18 3.0 09/01/19 08:00 Nasal Cannula 3.0 Nasal Cannula 3.0 Nasal Cannula 3.0 09/01/19 08:00 87 09/01/19 08:00 98.0 87 16 96/59 (71) 97 09/01/19 07:00 91 18 111/66 (81) 89 09/01/19 06:00 96 18 109/66 (80) 92 09/01/19 05:00 94 19 94/65 (75) 100 09/01/19 04:00 35 09/01/19 04:00 91 09/01/19 04:00 98.0 100 21 93/59 (70) 95 09/01/19 04:00 Bi-pap 3.0 Nasal Cannula Bi-pap 09/01/19 03:23 104 23 98 Nasal Cannula 3.0 32 09/01/19 03:08 96 24 97 Nasal Cannula 3.0 32 09/01/19 03:00 94 21 99/60 (73) 96 09/01/19 02:00 93 23 112/71 (85) 92 09/01/19 01:12 95 21 97/67 (77) 84 09/01/19 01:00 95 18 89/35 (53) 91 09/01/19 00:49 95 25 98 Facial 35 09/01/19 00:00 98.6 90 18 104/53 (70) 92 09/01/19 00:00 35 09/01/19 00:00 81 09/01/19 00:00 Bi-pap 3.0 Nasal Cannula Bi-pap 08/31/19 23:12 96 25 99 Facial 35 08/31/19 23:12 96 21 99 Bi-Pap 35 08/31/19 23:00 87 21 125/77 (93) 98 08/31/19 22:57 91 22 96 Nasal Cannula 3.0 32 08/31/19 22:00 91 18 112/68 (83) 90 08/31/19 21:00 90 15 97/44 (61) 90 08/31/19 20:00 86 08/31/19 20:00 3.0 08/31/19 20:00 Nasal Cannula 3.0 Nasal Cannula 3.0 Nasal Cannula 3.0 08/31/19 20:00 98.0 99 16 112/60 (77) 94 08/31/19 19:28 88 21 99 Nasal Cannula 3.0 32 08/31/19 19:13 86 20 97 Nasal Cannula 3.0 32 08/31/19 19:13 97 Nasal Cannula 3.0 32 08/31/19 19:00 85 19 106/79 (88) 100 08/31/19 18:00 87 24 104/56 (72) 93 08/31/19 17:00 Nasal Cannula 3.0 Nasal Cannula 3.0 Bi-pap Bi-pap 08/31/19 17:00 98.0 90 14 107/50 (69) 100 08/31/19 16:00 92 16 112/50 (70) 92 08/31/19 16:00 3.0 08/31/19 16:00 Nasal Cannula 3.0 Nasal Cannula 3.0 Bi-pap Bi-pap 08/31/19 15:33 81 08/31/19 15:00 89 17 111/45 (67) 100 08/31/19 14:41 85 19 98 Nasal Cannula 3.0 32 80 18 96 08/31/19 14:40 80 12 96 Nasal Cannula 3.0 32 08/31/19 14:00 95 20 102/54 (70) 100 08/31/19 13:00 85 14 99/52 (68) 90 08/31/19 12:39 84 08/31/19 12:00 Bi-pap Bi-pap 08/31/19 12:00 98.0 80 15 83/52 (62) 95 08/31/19 12:00 3.0 08/31/19 11:00 74 16 110/56 (74) 98 08/31/19 10:49 74 15 99 Nasal Cannula 3.0 32 75 16 98 08/31/19 10:00 77 14 90/53 (65) 98 Micro: Microbiology Date/Time Source Procedure Growth Status 08/31/19 05:00 Blood Blood Culture - Preliminary NO GROWTH AFTER 24 HOURS Resulted 08/31/19 04:55 Blood Blood Culture - Preliminary NO GROWTH AFTER 24 HOURS Resulted 08/30/19 06:05 Blood Blood Culture - Preliminary NO GROWTH AFTER 24 HOURS Resulted 08/30/19 06:05 Blood Blood Culture - Preliminary NO GROWTH AFTER 24 HOURS Resulted Accucheck: 114 Critical Care - Subjective ROS Limited/Unobtainable: No Condition: stable FI02: 28 Vent Support Breath Rate: 14 Vent Support Mode: BiLevel Vent Tidal Volume: 400 Sputum Amount: Small PEEP: 5.0 PIP: 22 Tube Feeding Amount: 55 I&O: Intake and Output 08/31/19 09/01/19 18:59 06:59 Intake Total 1045.000 ml 1450.000 ml Output Total 600 ml 530 ml Balance 445.000 ml 920.000 ml Intake Free Water 400 ml IV Total 385.000 ml 330.000 ml Tube Feeding 660 ml 660 ml Other 60 ml Output Urine Total 600 ml 530 ml # Bowel Movements 1 2 ET-Tube: 7.5 ET Position: 23 Perfecto Youngblood MD Sep 01, 2019 09:42
--- NOTE | 2019-09-01 10:00 | NUR ---
NURSE NOTES: Dr Hill called with orders for CT scan Abdomen and Pelvis.will call family member for consent thru phone.
--- NOTE | 2019-09-01 10:11 | Infectious Diseases Prog Note ---
Assessment/Plan Assessment/Plan Assessment: Sepsis Persistent Gram positive bacteremia- suspect PICC line infection- persist despite removal picc line- r/o endocarditis -08/30, Bcx NTD 2d echo: no vegetations notged -08/27 PICC line removed; cath tip cx Neg Bcx 1/4 S. epi -08/22 Bcx 2/4 S.epi; 2/3 bcx Picc NTD, peripheral CONS Recurrent aspiration pneumonia -08/25 CXR:Suspicion of slightly worsening CHF -08/22 cXR: Possible mild pulmonary vascular congestion. No change from the prior study -08/21 sp cx S. aureus, MDR PsA (S Amikacin, Cipro/levo; R Cefepime, Meropenem) -08/18 cXR: The lungs remain clear. There may be some minimal basal atelectasis -08/14 CXR: Cardiomegaly. Mild interstitial congestion, unchanged over 3 days -07/31, 08/01 sp cx normal resp sunny -07/12 sp cx normal -07/12 SP FLEXIBLE FIBEROPTIC BRONCHOSCOPY WITH BRONCHOALVEOLAR LAVAGE AND THERAPEUTIC ASPIRATION OF MUCOUS PLUG LEFT LUNG -07/11/20 CXR: Bilateral pulmonary edema/infiltrates. Possible small pleural effusions. Fever, recurrent Leukocytosis, recurrent; increasing Recurrent hypoxic respiratory failure 2ry to above -sp intubation 07/31/19 and extubation 08/11/19 -s/p intubation 07/12/19 and extubation 07/19/19 UTI , recurrent -08/21 u/a wbc tnct, nit neg, leuk large; ucx >100k PsA (I Cefepime, Levaquin ; S Imipenem, Cipro) -08/11 ucx C. parapsilosis (colinzer) - 07/12 Ucx PsA (R Ceftazidime, levaquin; I Ciprofloxacin; otherwise S), VRE ( S Amp, linezolid) -07/11/19 u/a wbc tntc, nit neg, leuk +3; ucx PsA, ESBL E.coli, P. mirabilis S. mitis bacteremia- likely contaminant -07/28 Bcx 1 S. mitis; 07/29, 08/01, 08/03 Bcx neg HTN Dm2 spina bifida s/p [employer] shunt decubiti ulcers wheelchair bound/paraplegic b/l renal stents neurogenic bladder s/p suprapubic catheter recurrent UTIs Plan: -Continue Meropenem #/-14 and PO Cipro #7 (abx d #03/01-) -Continue IV Vancomycin # 9 for S. aureus PNA and CONS bacteremia -2/3 SP Amikacin #4 -2/ SP Cefepime and Flagyl #3 -08/11 SP Linezolid and Meropenem #15 -08/06 SP Micafungin #4 -f/u cx -Monitor CBC/CMP, temperatures -aspiration precautions -GI, pulm f/u -speech therapy recommending PEG, family is refusing -f/u Bcx x2 (peripheral and pICC line) -May need ADINA if recurrent bacteremia -Cdiff, u/a / reflex -CT c/abd/p w/ to eval for abscess Thank you for this consultation. Will continue to follow along with you. Discussed with RN Subjective Allergies: Coded Allergies: LATEX (Verified Allergy, Severe, Rash on skin, 08/19/19) PENICILLIN G (Verified Allergy, Unknown, 12/02/18) Tolerates cabapenem, cephalosporin PENICILLINS (Unverified Allergy, Unknown, 12/02/18) Subjective afebrile in >36hrs wbc increased repeat Bcx NTD at 3l NC Objective Vital Signs Last 24 Hour Vital Signs Date Time Temp Pulse Resp B/P (MAP) Pulse Ox O2 Delivery O2 Flow Rate FiO2 09/01/19 08:21 98 Nasal Cannula 3.0 28 09/01/19 08:21 90 20 99 Nasal Cannula 3.0 32 90 22 98 09/01/19 08:18 3.0 09/01/19 08:00 Nasal Cannula 3.0 Nasal Cannula 3.0 Nasal Cannula 3.0 09/01/19 08:00 87 09/01/19 08:00 98.0 87 16 96/59 (71) 97 09/01/19 07:00 91 18 111/66 (81) 89 09/01/19 06:00 96 18 109/66 (80) 92 09/01/19 05:00 94 19 94/65 (75) 100 09/01/19 04:00 35 09/01/19 04:00 91 09/01/19 04:00 98.0 100 21 93/59 (70) 95 09/01/19 04:00 Bi-pap 3.0 Nasal Cannula Bi-pap 09/01/19 03:23 104 23 98 Nasal Cannula 3.0 32 09/01/19 03:08 96 24 97 Nasal Cannula 3.0 32 09/01/19 03:00 94 21 99/60 (73) 96 09/01/19 02:00 93 23 112/71 (85) 92 09/01/19 01:12 95 21 97/67 (77) 84 09/01/19 01:00 95 18 89/35 (53) 91 09/01/19 00:49 95 25 98 Facial 35 09/01/19 00:00 98.6 90 18 104/53 (70) 92 09/01/19 00:00 35 09/01/19 00:00 81 09/01/19 00:00 Bi-pap 3.0 Nasal Cannula Bi-pap 08/31/19 23:12 96 25 99 Facial 35 08/31/19 23:12 96 21 99 Bi-Pap 35 08/31/19 23:00 87 21 125/77 (93) 98 08/31/19 22:57 91 22 96 Nasal Cannula 3.0 32 08/31/19 22:00 91 18 112/68 (83) 90 08/31/19 21:00 90 15 97/44 (61) 90 08/31/19 20:00 86 08/31/19 20:00 3.0 08/31/19 20:00 Nasal Cannula 3.0 Nasal Cannula 3.0 Nasal Cannula 3.0 08/31/19 20:00 98.0 99 16 112/60 (77) 94 08/31/19 19:28 88 21 99 Nasal Cannula 3.0 32 08/31/19 19:13 86 20 97 Nasal Cannula 3.0 32 08/31/19 19:13 97 Nasal Cannula 3.0 32 08/31/19 19:00 85 19 106/79 (88) 100 08/31/19 18:00 87 24 104/56 (72) 93 08/31/19 17:00 Nasal Cannula 3.0 Nasal Cannula 3.0 Bi-pap Bi-pap 08/31/19 17:00 98.0 90 14 107/50 (69) 100 08/31/19 16:00 92 16 112/50 (70) 92 08/31/19 16:00 3.0 08/31/19 16:00 Nasal Cannula 3.0 Nasal Cannula 3.0 Bi-pap Bi-pap 08/31/19 15:33 81 08/31/19 15:00 89 17 111/45 (67) 100 08/31/19 14:41 85 19 98 Nasal Cannula 3.0 32 80 18 96 08/31/19 14:40 80 12 96 Nasal Cannula 3.0 32 08/31/19 14:00 95 20 102/54 (70) 100 08/31/19 13:00 85 14 99/52 (68) 90 08/31/19 12:39 84 08/31/19 12:00 Bi-pap Bi-pap 08/31/19 12:00 98.0 80 15 83/52 (62) 95 08/31/19 12:00 3.0 08/31/19 11:00 74 16 110/56 (74) 98 08/31/19 10:49 74 15 99 Nasal Cannula 3.0 32 75 16 98 08/31/19 10:00 77 14 90/53 (65) 98 Height (Feet): 4 Height (Inches): 10.00 Weight (Pounds): 119 Objective General Appearance: lethargic EENT: normal ENT inspection Neck: supple Cardiovascular: normal rate Respiratory/Chest: decreased breath sounds Abdomen: normal bowel sounds, non tender, soft Extremities: non-tender Microbiology Date/Time Source Procedure Growth Status 08/31/19 05:00 Blood Blood Culture - Preliminary NO GROWTH AFTER 24 HOURS Resulted 08/31/19 04:55 Blood Blood Culture - Preliminary NO GROWTH AFTER 24 HOURS Resulted 08/30/19 06:05 Blood Blood Culture - Preliminary NO GROWTH AFTER 24 HOURS Resulted 08/30/19 06:05 Blood Blood Culture - Preliminary NO GROWTH AFTER 24 HOURS Resulted Laboratory Tests Test 08/31/19 20:20 09/01/19 05:30 Vancomycin Level Trough 12.3 ug/mL (5.0-12.0) H White Blood Count 20.6 K/UL (4.8-10.8) H Red Blood Count 4.21 M/UL (4.20-5.40) Hemoglobin 10.5 G/DL (12.0-16.0) L Hematocrit 32.4 % (37.0-47.0) L Mean Corpuscular Volume 77 FL (80-99) L Mean Corpuscular Hemoglobin 24.8 PG (27.0-31.0) L Mean Corpuscular Hemoglobin Concent 32.3 G/DL (32.0-36.0) Red Cell Distribution Width 21.1 % (11.6-14.8) H Platelet Count 362 K/UL (150-450) Mean Platelet Volume 5.3 FL (6.5-10.1) L Neutrophils (%) (Auto) % (45.0-75.0) Lymphocytes (%) (Auto) % (20.0-45.0) Monocytes (%) (Auto) % (1.0-10.0) Eosinophils (%) (Auto) % (0.0-3.0) Basophils (%) (Auto) % (0.0-2.0) Differential Total Cells Counted 100 Neutrophils % (Manual) 80 % (45-75) H Lymphocytes % (Manual) 16 % (20-45) L Monocytes % (Manual) 3 % (1-10) Eosinophils % (Manual) 1 % (0-3) Platelet Estimate Pending Platelet Morphology Pending Hypochromasia 1+ Anisocytosis 2+ Microcytosis 1+ Sodium Level 140 MMOL/L (136-145) Potassium Level 4.0 MMOL/L (3.5-5.1) Chloride Level 104 MMOL/L (98-107) Carbon Dioxide Level 30 MMOL/L (21-32) Anion Gap 6 mmol/L (5-15) Blood Urea Nitrogen 18 mg/dL (7-18) Creatinine 0.2 MG/DL (0.55-1.30) L Estimat Glomerular Filtration Rate > 60 mL/min (>60) Glucose Level 116 MG/DL (74-106) H Calcium Level 9.3 MG/DL (8.5-10.1) Current Medications Medications (Trade) Dose Ordered Sig/Sandeep Route PRN Reason Start Time Stop Time Status Last Admin Dose Admin Acetaminophen (Tylenol) 650 mg Q4H PRN NG Mild Pain/Temp > 100.5 08/22/19 10:30 09/21/19 10:29 08/30/19 20:18 Acetylcysteine (Mucomyst) 400 mg Q4HRT HHN 08/16/19 11:00 09/15/19 10:59 09/01/19 08:21 Albuterol/ Ipratropium (Albuterol/ Ipratropium) 3 ml Q4HRT HHN 08/27/19 19:00 09/01/19 18:59 09/01/19 08:21 Apixaban (Eliquis) 5 mg BID NGT 08/16/19 09:00 09/11/19 17:59 09/01/19 09:39 Barium Sulfate (Varibar Honey) 250 ml NOW PRN Radiology Procedure 08/29/19 11:00 09/01/19 10:52 Barium Sulfate (Varibar [place]) 230 ml NOW PRN Radiology Procedure 08/29/19 11:00 09/01/19 10:52 Barium Sulfate (Varibar Pudding) 230 ml NOW PRN Radiology Procedure 08/29/19 11:00 09/01/19 10:52 Ciprofloxacin (Cipro 500mg tab) 500 mg EVERY 12 HOURS NG 08/25/19 21:00 09/01/19 20:59 09/01/19 09:38 Divalproex Sodium (Depakote Sprinkles) 500 mg Q12HR NG 08/15/19 21:00 09/14/19 20:59 09/01/19 09:39 Meropenem 1 gm/ Sodium Chloride 55 ml @ 110 mls/hr Q8HR IVPB 08/23/19 14:00 09/01/19 13:59 09/01/19 07:42 Metoclopramide HCl (Reglan) 5 mg Q6H PRN IVP Nausea & Vomiting 08/04/19 10:00 09/03/19 09:59 Polyethylene Glycol (Miralax) 17 gm BEDTIME ORAL 08/20/19 21:00 09/19/19 20:59 08/31/19 20:52 Vancomycin HCl (Vanco rx to dose) 1 ea DAILY PRN MISC Per rx protocol 08/23/19 09:45 09/22/19 09:44 Vancomycin HCl 750 mg/Sodium Chloride 275 ml @ 183.333 mls/hr Q12HR IVPB 08/30/19 09:00 09/04/19 08:59 09/01/19 09:38 Joaquina Hill M.D. Sep 01, 2019 10:11
[2019-09-01] MEDS ORDERED: Omnipaque-300 100ml vial INJ ONE (10:15)
--- NOTE | 2019-09-01 10:39 | NUR ---
RD ASSESSMENT & RECOMMENDATIONS SEE CARE ACTIVITY FOR COMPLETE ASSESSMENT DAILY ESTIMATED NEEDS: Needs based on wound, Pulmonary/ 47.6kg abw 25-30 kcals/kg 7849-1183 total kcals 1.25-2 g protein/kg 60-95 g total protein 25-30 mL/kg 1553-8233 total fluid mLs NUTRITION DIAGNOSIS: * Increased kcal/pro needs r/t wound healing as evidenced by h/o spina bifida, adm w/ full thickness wound @ sacrum-> resolving, and red and excoriated R-ischium. (UPDATED) * Swallowing difficulty R/T respiratory status as evidenced by re-intubated, now extubated, on and off Bipap, on NGT feeds. CURRENT TF:Glucerna 1.5 @ 55ml/hr x 16 hrs PO DIET RECOMMENDATIONS: WHEN SAFE FOR ORAL DIET-> REGULAR, texture per THRESHING DEPARTMENT [employer]PER[employer] ENTERAL NUTRITION RECOMMENDATIONS: Glucerna 1.5 @ 55ml/hr x 16 hrs (HOLD FOR 8 HRS DURING HS BIPAP) to provide 880ml, 1320kcal, 73g prot, 668ml free water - Rec TF to run 16 hrs to account for TF held time during HS BIPAP TF TO BE HELD FOR 8 HRS DURING BIPAP USAGE HOLD TF FOR 8 HRS HS EVEN IF OFF BIPAP - HOB over 30 degrees. - H20 flush of 200ml q 6hrs ADDITIONAL RECOMMENDATIONS: 1) Wound care: add GREGG in 4oz H2O BID via NGT Add MVI x 1, VIT C 500mg daily 2) Maintain calibrated bed scale wts 3) NISS for BG control on TF - h/o DM 4) Monitor lytes daily, replete as needed. 5) TF to run 16 hrs to account for TF hold time during HS BIPAP usage. 6) W/ ORAL DIET ADD GLUCERNA TID
--- NOTE | 2019-09-01 12:12 | NUR ---
ST NOTES: SWALLOW STATUS AND PLAN: PATIENT HAD MOD BARIUM SWALLOW STUDY WITH Damian KHAN ON SUNDAY. REVIEWED IMAGES TODAY AND STARTED TO COMPLETE PORTIONS OF THE FORMAL EVALUATION REPORT. WILL COMPLETE TOMORROW. MET WITH PATIENT AND SPOKE TO HER SISTER AND THE RN (HORTENCIA) ABOUT TEST RESULTS. COMPLETED ASPIRATION PRECAUTIONS SHEET TO HAVE PATIENT START WITH SOME PO INTAKE OF A MOIST PUREED DIET AND NECTAR THICK LIQUIDS USING TSP ALESSIO FOR NOW WITH OTHER POSTED ASPIRATION PRECAUTIONS. PER RT, PATIENT HAS MILD TO MODERATE SECRETIONS. THE PATIENT WANTS TO EAT/DRINK SOME PO FOR QUALITY OF LIFE PURPOSES. PER RNHORTENCIA, PATIENT IS NPO FOR ABDOMINAL SCAN FIRST. PLAN: INITIATE SOME PO INTAKE OF MOIST PUREED DIET AND NECTAR THICK LIQUIDS CONSIDER KEEPING IN NGT FOR NOW TO MAKE SURE THE PATIENT IS ABLE TO TOLERATE AT LEAST 75% OF HER MEAL.
[2019-09-01 12:44] LABS: APPEARANCE,URINE SLIGHTLY CLOUDY; BILIRUBIN, URINE NEGATIVE (NEGATIVE); COLOR,URINE PALE YELLOW; GLUCOSE, URINE (UA) NEGATIVE (NEGATIVE); KETONES,URINE 1+ (NEGATIVE); LEUKOCYTE ESTERASE ,URINE 2+ (NEGATIVE); NITRITE,URINE NEGATIVE (NEGATIVE); PH,URINE 8 (4.5-8.0); PROTEIN,URINE 3+ (NEGATIVE); UROBILINOGEN,URINE NORMAL MG/DL (0.0-1.0)
--- NOTE | 2019-09-01 13:18 | NUR ---
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 98.9 HR 91 RR 18 B/P 116/70 3L NC O2 SAT @ 98% WBC 20.6 UA+PROTEIN,KETONES,BLOOD,LEUKOCYTE ESTERASE,SQUAMOUS EPITH CELL, BACTERIA IS: VANCO IV MEROPENEM IV CIPRO ICU STATUS
[2019-09-01] MEDS ORDERED: LORazepam Inj 2mg/ml 1ml IV SCH (16:15)
--- NOTE | 2019-09-01 16:15 | NUR ---
NURSE NOTES: Call placed to DR Masterspt agitated and needed sedation for CT Scan of Abdomen/Pelvis call returned and ordered for Ativan 0.5 mg IV,order done and carried out.
--- NOTE | 2019-09-01 17:00 | NUR ---
NURSE NOTES: Pt out of ICU to CT scan per allison accompanied by transporter and RN drowsy and sedated in no distress. 1730 Pt back to ICU from CT Scan awake at this time,procedure tolerated well.
--- NOTE | 2019-09-01 19:05 | Internal Med Progress Note ---
Subjective Date of Service: Sep 01, 2019 Physician Name LluviaNiraj Attending Physician Wil Masters MD Current Medications Medications (Trade) Dose Ordered Sig/Sandeep Route PRN Reason Start Time Stop Time Status Last Admin Dose Admin Acetaminophen (Tylenol) 650 mg Q4H PRN NG Mild Pain/Temp > 100.5 08/22/19 10:30 09/21/19 10:29 08/30/19 20:18 Acetylcysteine (Mucomyst) 400 mg Q4HRT HHN 08/16/19 11:00 09/15/19 10:59 09/01/19 14:43 Apixaban (Eliquis) 5 mg BID NGT 08/16/19 09:00 09/11/19 17:59 09/01/19 17:48 Barium Sulfate (Readi-Cat 2) 450 ml NOW PRN ORAL Radiology Procedure 09/01/19 10:15 09/03/19 10:06 09/01/19 12:33 Ciprofloxacin (Cipro 500mg tab) 500 mg EVERY 12 HOURS NG 08/25/19 21:00 09/08/19 20:59 09/01/19 09:38 Divalproex Sodium (Depakote Sprinkles) 500 mg Q12HR NG 08/15/19 21:00 09/14/19 20:59 09/01/19 09:39 Meropenem 1 gm/ Sodium Chloride 55 ml @ 110 mls/hr Q8HR IVPB 08/23/19 14:00 09/03/19 23:59 09/01/19 16:16 Metoclopramide HCl (Reglan) 5 mg Q6H PRN IVP Nausea & Vomiting 08/04/19 10:00 09/03/19 09:59 Polyethylene Glycol (Miralax) 17 gm BEDTIME ORAL 08/20/19 21:00 09/19/19 20:59 08/31/19 20:52 Vancomycin HCl (Vanco rx to dose) 1 ea DAILY PRN MISC Per rx protocol 08/23/19 09:45 09/22/19 09:44 Vancomycin HCl 750 mg/Sodium Chloride 275 ml @ 183.333 mls/hr Q12HR IVPB 08/30/19 09:00 09/04/19 08:59 09/01/19 09:38 Allergies: Coded Allergies: LATEX (Verified Allergy, Severe, Rash on skin, 08/19/19) PENICILLIN G (Verified Allergy, Unknown, 12/02/18) Tolerates cabapenem, cephalosporin PENICILLINS (Unverified Allergy, Unknown, 12/02/18) ROS Limited/Unobtainable: Yes Subjective 49 YO F with pneumonia and respiratory failure. Extubated 08/11/19. Cover for Manny Perdomo-DR Masters. ICU. Objective Last Vital Signs Date Time Temp Pulse Resp B/P (MAP) Pulse Ox O2 Delivery O2 Flow Rate FiO2 09/01/19 18:00 78 14 100/59 (73) 93 09/01/19 16:00 98.5 09/01/19 16:00 Nasal Cannula 3.0 Nasal Cannula 3.0 Nasal Cannula 3.0 09/01/19 14:44 32 Laboratory Tests Test 08/31/19 20:20 09/01/19 05:30 09/01/19 11:20 Vancomycin Level Trough 12.3 ug/mL (5.0-12.0) H White Blood Count 20.6 K/UL (4.8-10.8) H Red Blood Count 4.21 M/UL (4.20-5.40) Hemoglobin 10.5 G/DL (12.0-16.0) L Hematocrit 32.4 % (37.0-47.0) L Mean Corpuscular Volume 77 FL (80-99) L Mean Corpuscular Hemoglobin 24.8 PG (27.0-31.0) L Mean Corpuscular Hemoglobin Concent 32.3 G/DL (32.0-36.0) Red Cell Distribution Width 21.1 % (11.6-14.8) H Platelet Count 362 K/UL (150-450) Mean Platelet Volume 5.3 FL (6.5-10.1) L Neutrophils (%) (Auto) % (45.0-75.0) Lymphocytes (%) (Auto) % (20.0-45.0) Monocytes (%) (Auto) % (1.0-10.0) Eosinophils (%) (Auto) % (0.0-3.0) Basophils (%) (Auto) % (0.0-2.0) Differential Total Cells Counted 100 Neutrophils % (Manual) 80 % (45-75) H Lymphocytes % (Manual) 16 % (20-45) L Monocytes % (Manual) 3 % (1-10) Eosinophils % (Manual) 1 % (0-3) Basophils % (Manual) 0 % (0-2) Band Neutrophils 0 % (0-8) Platelet Estimate Adequate Platelet Morphology Normal Hypochromasia 1+ Anisocytosis 2+ Microcytosis 1+ Sodium Level 140 MMOL/L (136-145) Potassium Level 4.0 MMOL/L (3.5-5.1) Chloride Level 104 MMOL/L (98-107) Carbon Dioxide Level 30 MMOL/L (21-32) Anion Gap 6 mmol/L (5-15) Blood Urea Nitrogen 18 mg/dL (7-18) Creatinine 0.2 MG/DL (0.55-1.30) L Estimat Glomerular Filtration Rate > 60 mL/min (>60) Glucose Level 116 MG/DL (74-106) H Calcium Level 9.3 MG/DL (8.5-10.1) Urine Color Pale yellow Urine Appearance Slightly cloudy Urine pH 8 (4.5-8.0) Urine Specific [place] 1.015 (1.005-1.035) Urine Protein 3+ (NEGATIVE) H Urine Glucose (UA) Negative (NEGATIVE) Urine Ketones 1+ (NEGATIVE) H Urine Blood 5+ (NEGATIVE) H Urine Nitrite Negative (NEGATIVE) Urine Bilirubin Negative (NEGATIVE) Urine Urobilinogen Normal MG/DL (0.0-1.0) Urine Leukocyte Esterase 2+ (NEGATIVE) H Urine RBC 30-40 /HPF (0 - 2) H Urine WBC 10-15 /HPF (0 - 2) H Urine Squamous Epithelial Cells Few /LPF (NONE/OCC) Urine Bacteria Few /HPF (NONE) Microbiology Date/Time Source Procedure Growth Status 08/31/19 05:00 Blood Blood Culture - Preliminary NO GROWTH AFTER 24 HOURS Resulted 08/31/19 04:55 Blood Blood Culture - Preliminary NO GROWTH AFTER 24 HOURS Resulted 08/30/19 06:05 Blood Blood Culture - Preliminary NO GROWTH AFTER 24 HOURS Resulted 08/30/19 06:05 Blood Blood Culture - Preliminary NO GROWTH AFTER 24 HOURS Resulted Intake and Output 08/31/19 09/01/19 19:00 07:00 Intake Total 1045.000 ml 1650.000 ml Output Total 585 ml 550 ml Balance 460.000 ml 1100.000 ml Intake Free Water 600 ml IV Total 385.000 ml 330.000 ml Tube Feeding 660 ml 660 ml Other 60 ml Output Urine Total 585 ml 550 ml # Bowel Movements 1 2 Objective General Appearance: WD/WN, moderate distress EENT: PERRL/EOMI, normal ENT inspection Neck: non-tender, normal alignment, supple Cardiovascular: normal peripheral pulses, normal rate, regular rhythm, no gallop/murmur, no JVD Respiratory/Chest: Nasal canula; crackles/rales, rhonchi - bilaterally, expiratory wheezing Abdomen: normal bowel sounds, non tender, soft, no organomegaly, no mass Skin: normal pigmentation, warm/dry Assessment/Plan Problem List: (1) Respiratory failure with hypoxia Assessment & Plan: Tolerating venturi mask. S/P extubation 08/11/19 per pulmonary=Dr Bonilla (2) Pneumonia of both lower lobes Assessment & Plan: See ID note. Continue meropenem and vanco. (3) UTI (urinary tract infection) Assessment & Plan: Pseudamonas, ESBL E. Coli, and vanco resistant enterococcus. See ID note; Dr Sanabria signed off. Await new ID consult= Dr Buck/Milly. S/P meropenem, linezolid and micafugin (4) Sepsis (5) Paraplegia (6) Spina bifida Assessment/Plan Discharge plan: [facility] or [facility] Niraj Teixeira MD Sep 01, 2019 19:05
--- NOTE | 2019-09-01 19:20 | NUR ---
HAND-OFF: Report given to Ioana Granado RN,pt stable,noted no distress family member at bedside.
--- NOTE | 2019-09-01 19:30 | NUR ---
NURSE NOTES: Received report from EMMA Montiel. Patient in awake,alert verbally responsive. no s/s of acute distress noted. On 3L oxygen via N/C satting 100%. NGT intact Glucerna 1.5 at 55cc/hr no residual. HOB. Suprapubic cath intact draining. Left foot IV line intact. Family at bedside. Instructed patient to use call light for assistance. bed alarm on. bed locked and in low position. contact isolation maintained and observed. bed alarm on. bed locked and in low position. Call light within easy reach. Coloring book and crayon on the table. will continue plan of care.
--- NOTE | 2019-09-01 19:58 | Diagnostic Imaging Report ---
CLINICAL INDICATION:Respiratory failure, sepsis, urinary tract infection, leukocytosis TECHNIQUE: Patient ingested oral contrast. IV administration nonionic contrast. Multiphasic spiral acquisitions obtained through the chest, abdomen, and pelvis. Multiplanar reconstructions were generated. Total dose length product 2262 mGycm. CTDIvol(s) 41, 48, 16, 14 mGy. Radiation dose was minimized using automated exposure control COMPARISON: No comparison chest CT scans. Abdomen pelvis compared to 08/23/2018 noncontrast study FINDINGS Chest: There is some image degradation due to respiratory motion artifact. The lungs demonstrate atelectasis and possibly patchy consolidation in the bilateral posterior lower lobes. There is also some groundglass opacity in the bilateral lower lobes which is probably due to atelectasis. No effusions. No definite masses or nodules. There is minimal anterior wall pericardial thickening versus fluid. The heart is borderline enlarged. No mediastinal or hilar mass or adenopathy. There is a nasogastric tube in place, tip of which is in good position in the gastric body. There is a 2.2 cm nodule with a calcification in the lower pole of the right thyroid lobe. There is a heavily calcified 1 cm nodule coming off the lower pole of the left thyroid lobe. No axillary or chest wall mass or adenopathy. There is thoracic scoliotic deformity. There is spinal fusion hardware present.. Abdomen pelvis: Ingested contrast has traversed the entirety of the GI tract. There is marked distortion of the pelvic anatomy due to considerable skeletal deformity. Extensive abnormal soft tissue surrounds the rectum. This has increased since previous study. There is suggestion of a sinus tract extending from the posterior distal rectum posteriorly into the soft tissues, although disc. Just be the normal minus which is unusually position due to the skeletal deformity. Decubitus changes are seen in the retrococcygeal/retrosacral region with evidence of chronic osseous destruction. This does not appear significant change from the prior study, however. No evidence of colonic diverticulosis or diverticulitis. The appendix is unusually lengthy but otherwise normal. No small bowel distention. No free or loculated intraperitoneal gas or fluid is evident. There is ventriculoperitoneal shunt tubing. This is discontinuous, with 5 cm long area of discontinuity in the right upper quadrant anterior abdominal wall. There is a right nephroureteral stent which appears appropriately positioned. However, there is moderate right hydronephrosis and hydroureter despite apparent adequate position of the stent. This appears increased from the previous study. The left kidney appears enlarged. There is also a left nephroureteral stent. No left hydronephrosis is demonstrated. However, as previously, the left kidney is atrophic. Calcifications are seen in both kidneys. Some appear parenchymal and some appear to be within the collecting system. There is a suprapubic catheter again demonstrated. The liver, gallbladder, bile ducts, pancreas, spleen, adrenals are all unremarkable. Uterus and adnexal structures are unremarkable. No pelvic mass or adenopathy. No retroperitoneal or mesenteric mass or adenopathy. There is an unusual round structure superior to the upper pole left kidney and posterior to the spleen, also evident previously. This may represent an area of focal fatty infarction, unusual adrenal lesion, or unusual accessory splenule As mentioned earlier, there is extensive skeletal deformity. There is thoracic and lumbar levoscoliotic deformity. There is fusion hardware extending from the midthoracic spine to the sacrum. There is evidence of failure fusion of the posterior elements of the sacrum. There is marked deformity of the pelvis as well as absence of significant portions of the sacrum and coccyx and left iliac bone. There is chronic dislocation of the right hip. Surgical hardware is seen within the right femur. There is marked deformity of the left femoral head and acetabulum, as well as considerable soft tissue surrounding the femoral head. The skeletal findings are largely unchanged. IMPRESSION: Basilar pulmonary atelectasis and possibly patchy consolidation in the bilateral posterior lower lobes. Borderline cardiomegaly Moderate right hydronephrosis and enlargement of the right kidney, despite apparent satisfactory position of a right nephroureteral stent. Possibility of stent dysfunction should be considered. Atrophic left kidney. Left nephroureteral stent in place, no hydronephrosis Bilateral renal calyceal and parenchymal calcifications, also previously reported Extensive chronic skeletal deformity, with evidence of spinal dysraphism, scoliosis, evidence of prior spinal fusion, and other abnormalities detailed above Unusual round structure superior to the upper pole left kidney posterior to the spleen, also described previously and unchanged, possibly an area of fatty infarction, unusual adrenal lesion, or an unusual accessory splenule. This is also stable since 2017 There is extensive pelvic deformity. There is marked abnormal soft tissue surrounding the rectum. There is a tract extending posteriorly from the distal rectum. Uncertain as whether this represents an otherwise normal but unusually positioned anus versus a fistula tract. Correlate with clinical findings. Extensive chronic appearing pelvic decubitus changes, with evidence of chronic osseous destruction of the sacrum and coccyx, appearing unchanged from prior study 08/23/2018 Discontinuous ventriculoperitoneal shunt tubing is again demonstrated. 2.2 cm calcified right lower pole thyroid nodule. Consider thyroid sonography for further evaluation Minimal anterior wall pericardial thickening versus fluid. The CT scanner at [facility] is accredited by the [employer] and the scans are performed using protocols designed to limit radiation exposure to as low as reasonably achievable to attain images of sufficient resolution adequate for diagnostic evaluation.
[2019-09-01] MEDS: Miralax 17gm pkt ORAL SCH (21:00)
--- NOTE | 2019-09-01 21:30 | NUR ---
NURSE NOTES: Patient on 3L oxygen via N/C satting 98%. HOB elevated. patient in bed sleeping comfortably. call light within easy reach. will continue plan of care.
[2019-09-01] MEDS: Vancomycin 1gm/D5W 275ml IVPB SCH ×2 (22:03)
--- NOTE | 2019-09-01 23:30 | NUR ---
NURSE NOTES: Patient in bed sleeping comfortably. no s/s of acute distress noted. Turned and repositioned in bed. Hob elevated. no fever. no n/v. no s/s of hypo/hyperglycemia. call light within easy reach. will continue to monitor patient.
[2019-09-02] VITALS (24 sets, daily range): BP systolic 82–124; BP diastolic 50–88
--- NOTE | 2019-09-02 00:58 | NUR ---
RESPIRATORY NOTE: Received pt on BiPAP 06/28, backup rate 14, 35%. Pt is on a Facial mask, skin intact, no redness/breakdowns noted. Foam tape applied on pt's nosebridge/cheeks/chin to prevent mask irritations. Pt is alert/awake, follows commands. B/S guillermo. rhonchi, sxn small to moderate amounts of thick, pale-yellow secretions. BiPAP plugged into red outlet, alarms on & audible. Pt resting comfortably, in no apparent distress at this time. Will continue to monitor pt.
--- NOTE | 2019-09-02 01:30 | NUR ---
NURSE NOTES: Bed bath given tolerated well. patient awake,alert able to verbalize needs to staff. currently on BIPAP fi02 35% satting 100%. with large lose BM, kept clean and dry. contact isolation maintained and observed. call light within reach. will continue to monitor patient.
[2019-09-02] MEDS: Albuterol/Ipratropium 3ml neb HHN SCH ×6 (03:29→23:07)
[2019-09-02] MEDS: Acetylcysteine 20% Soln 4ml HHN SCH ×6 (03:29→23:07)
--- NOTE | 2019-09-02 05:07 | NUR ---
NURSE NOTES: Patient in bed sleeping comfortably. on BIPAP 06/28 fi02 35% satting 100%. HOB elevated. no s/s of acute distress noted. on P200 mattress for wound management. Contact isolation maintained and observed.call light within easy reach will continue plan of care.
[2019-09-02] MEDS: Meropenem 1 GM in NS 55 ML IVPB SCH ×3 (05:41→21:00)
--- NOTE | 2019-09-02 07:00 | NUR ---
HAND-OFF: Report given to Lucila CARTER.
[2019-09-02 07:01] LABS: ALANINE AMINOTRANSFERASE 9 U/L (12-78); ALBUMIN 2.5 G/DL (3.4-5.0); ALBUMIN/GLOBULIN RATIO 0.6 (1.0-2.7); ALKALINE PHOSPHATASE 58 U/L (46-116); ANION GAP 5 mmol/L (5-15); ASPARTATE AMINO TRANSFERASE 10 U/L (15-37); BILIRUBIN,TOTAL 0.2 MG/DL (0.2-1.0); BLOOD UREA NITROGEN 12 mg/dL (7-18); CALCIUM 8.8 MG/DL (8.5-10.1); CARBON DIOXIDE 34 MMOL/L (21-32); CHLORIDE 100 MMOL/L (98-107); CREATININE 0.3 MG/DL (0.55-1.30); POTASSIUM 3.6 MMOL/L (3.5-5.1); SODIUM 139 MMOL/L (136-145)
--- NOTE | 2019-09-02 07:01 | NUR ---
NURSE NOTES: Received bedside report from Ioana Mark RN. Observed patient in bed, asleep, arousable to verbal stimuli. On BiPAP with settings 15/7, FiO2 35%. No respiratory distress noted at this time, patient saturating 100%. nurse monitoring shows normal sinus rhythm with HR of 74. NGT on right nare intact and patent with GT feeding infusing at prescribed rate. HOB elevated. Suprapubic catheter intact and draining well. Left foot IV 20g intact and patent. Bed locked, alarmed, and in lowest position, side rails up x3, and call light left within reach. Will continue plan of care and will continue to monitor patient.
[2019-09-02 07:31] LABS: BASOPHILS % (AUTO) 0.6 % (0.0-2.0); EOSINOPHILS % (AUTO) 2.9 % (0.0-3.0); HEMATOCRIT 28.8 % (37.0-47.0); HEMOGLOBIN 9.3 G/DL (12.0-16.0); LYMPHOCYTES % (AUTO) 14.3 % (20.0-45.0); MEAN CORPUSCULAR VOLUME 77 FL (80-99); MONOCYTES % (AUTO) 4.5 % (1.0-10.0); NEUTROPHILS % (AUTO) 77.7 % (45.0-75.0); PLATELET COUNT 359 K/UL (150-450); RED BLOOD COUNT 3.76 M/UL (4.20-5.40); RED CELL DISTRIBUTION WIDTH 21.1 % (11.6-14.8); WHITE BLOOD COUNT 12.9 K/UL (4.8-10.8)
--- NOTE | 2019-09-02 07:48 | General Progress Note ---
Assessment/Plan Problem List: (1) Spina bifida ICD Codes: Q05.9 - Spina bifida, unspecified SNOMED: 17373681 Qualifiers: Qualified Codes: Q05.4 - Unspecified spina bifida with hydrocephalus (2) Respiratory failure with hypoxia ICD Codes: J96.91 - Respiratory failure, unspecified with hypoxia SNOMED: 36850294222578373 Qualifiers: Qualified Codes: J96.21 - Acute and chronic respiratory failure with hypoxia (3) Dysphagia ICD Codes: R13.10 - Dysphagia, unspecified SNOMED: 20525012, 994845629 (4) UTI (urinary tract infection) ICD Codes: N39.0 - Urinary tract infection, site not specified SNOMED: 50116335, 547698187 Qualifiers: Qualified Codes: N30.00 - Acute cystitis without hematuria (5) Paraplegia ICD Codes: G82.20 - Paraplegia, unspecified SNOMED: 77323047 (6) Anemia ICD Codes: D64.9 - Anemia, unspecified SNOMED: 733298877 Status: unchanged Assessment/Plan: extubated on BIPAP at night and NC day time ppi repeat labs fu H&H stool ob neg x1 reglan NGTF for now failed swallow study will need peg but family refusing>>>d/w again at length again both her sister and brother abx per ID fu pulm recs CT reviewed will fu Subjective ROS Limited/Unobtainable: No Allergies: Coded Allergies: LATEX (Verified Allergy, Severe, Rash on skin, 08/19/19) PENICILLIN G (Verified Allergy, Unknown, 12/02/18) Tolerates cabapenem, cephalosporin PENICILLINS (Unverified Allergy, Unknown, 12/02/18) Objective Last 24 Hour Vital Signs Date Time Temp Pulse Resp B/P (MAP) Pulse Ox O2 Delivery O2 Flow Rate FiO2 09/02/19 07:12 72 15 100 Nasal Cannula 3.0 32 75 18 99 09/02/19 07:12 99 Nasal Cannula 3.0 32 09/02/19 07:00 75 16 83/62 (69) 98 09/02/19 06:00 79 18 98/59 (72) 99 09/02/19 05:22 69 17 100 Facial 35 09/02/19 05:00 83 21 107/72 (84) 99 09/02/19 04:00 97.8 76 14 97/61 (73) 100 09/02/19 04:00 Bi-pap Bi-pap Bi-pap 09/02/19 04:00 71 09/02/19 04:00 35 09/02/19 03:44 75 17 100 Nasal Cannula 3.0 32 09/02/19 03:29 74 20 100 Nasal Cannula 3.0 32 09/02/19 03:29 74 20 100 Facial 35 09/02/19 03:00 74 19 104/67 (79) 100 09/02/19 02:00 80 16 105/70 (82) 99 09/02/19 01:00 76 20 103/67 (79) 100 09/02/19 00:56 77 17 100 Facial 35 09/02/19 00:00 35 09/02/19 00:00 98.0 73 19 115/76 (89) 98 09/02/19 00:00 76 09/02/19 00:00 Bi-pap Bi-pap Bi-pap 09/01/19 23:45 70 18 100 Facial 35 09/01/19 23:00 73 17 92/57 (69) 99 09/01/19 22:00 82 19 114/71 (85) 93 09/01/19 21:27 81 21 100 Facial 35 09/01/19 21:00 84 14 107/62 (77) 89 09/01/19 20:00 74 09/01/19 20:00 3.0 09/01/19 20:00 97.9 76 15 114/72 (86) 94 09/01/19 20:00 Nasal Cannula 3.0 Nasal Cannula 3.0 Nasal Cannula 3.0 09/01/19 19:58 99 Nasal Cannula 3.0 28 09/01/19 19:58 87 22 100 Nasal Cannula 3.0 32 74 20 96 09/01/19 19:00 76 13 100/57 (71) 85 09/01/19 18:00 78 14 100/59 (73) 93 09/01/19 17:00 77 16 92/59 (70) 97 09/01/19 16:00 90 09/01/19 16:00 3.0 09/01/19 16:00 98.5 88 16 116/70 (85) 96 09/01/19 16:00 Nasal Cannula 3.0 Nasal Cannula 3.0 Nasal Cannula 3.0 09/01/19 15:00 93 21 109/70 (83) 95 09/01/19 14:44 90 19 99 Nasal Cannula 3.0 32 91 19 97 09/01/19 14:00 93 19 92/59 (70) 97 09/01/19 13:00 94 15 96/62 (73) 93 09/01/19 12:10 91 17 100 Nasal Cannula 3.0 32 91 18 99 09/01/19 12:00 89 09/01/19 12:00 Nasal Cannula 3.0 Nasal Cannula 3.0 Nasal Cannula 3.0 09/01/19 12:00 3.0 09/01/19 12:00 98.9 88 16 116/70 (85) 96 09/01/19 11:00 91 19 114/73 (87) 91 09/01/19 10:00 94 19 95/63 (74) 96 09/01/19 09:00 95 20 95/63 (74) 92 09/01/19 08:21 98 Nasal Cannula 3.0 32 09/01/19 08:21 90 20 99 Nasal Cannula 3.0 32 90 22 98 09/01/19 08:18 3.0 09/01/19 08:00 Nasal Cannula 3.0 Nasal Cannula 3.0 Nasal Cannula 3.0 09/01/19 08:00 87 09/01/19 08:00 98.0 87 16 96/59 (71) 97 Intake and Output 09/01/19 09/02/19 19:00 07:00 Intake Total 515 ml 775 ml Output Total 770 ml 800 ml Balance -255 ml -25 ml IV Total 55 ml Tube Feeding 275 ml 660 ml Other 240 ml 60 ml Output Urine Total 770 ml 800 ml # Bowel Movements 1 4 Laboratory Tests 09/01/19 11:20: Urine Color Pale yellow, Urine Appearance Slightly cloudy, Urine pH 8, Urine Specific Bennett 1.015, Urine Protein 3+H, Urine Glucose (UA) Negative, Urine Ketones 1+H, Urine Blood 5+H, Urine Nitrite Negative, Urine Bilirubin Negative, Urine Urobilinogen Normal, Urine Leukocyte Esterase 2+H, Urine RBC 30-40H, Urine WBC 10-15H, Urine Squamous Epithelial Cells Few, Urine Bacteria Few 09/01/19 20:05: Vancomycin Level Trough 10.5 2/11/20 05:45: White Blood Count 12.9H, Red Blood Count 3.76L, Hemoglobin 9.3L, Hematocrit 28.8L, Mean Corpuscular Volume 77L, Mean Corpuscular Hemoglobin 24.8L, Mean Corpuscular Hemoglobin Concent 32.4, Red Cell Distribution Width 21.1H, Platelet Count 359, Mean Platelet Volume 5.3L, Neutrophils (%) (Auto) 77.7H, Lymphocytes (%) (Auto) 14.3L, Monocytes (%) (Auto) 4.5, Eosinophils (%) (Auto) 2.9, Basophils (%) (Auto) 0.6, Sodium Level 139, Potassium Level 3.6, Chloride Level 100, Carbon Dioxide Level 34H, Anion Gap 5, Blood Urea Nitrogen 12, Creatinine 0.3L, Estimat Glomerular Filtration Rate > 60, Glucose Level 108H, Calcium Level 8.8, Total Bilirubin 0.2, Aspartate Amino Transf (AST/SGOT) 10L, Alanine Aminotransferase (ALT/SGPT) 9L, Alkaline Phosphatase 58, Total Protein 7.0, Albumin 2.5L, Globulin 4.5, Albumin/Globulin Ratio 0.6L Height (Feet): 4 Height (Inches): 10.00 Weight (Pounds): 118 General Appearance: lethargic EENT: normal ENT inspection Neck: supple Cardiovascular: normal rate Respiratory/Chest: decreased breath sounds Abdomen: normal bowel sounds, non tender, soft Extremities: non-tender Tim Davis MD Sep 02, 2019 07:48
--- NOTE | 2019-09-02 08:00 | NUR ---
NURSE NOTES: RT placed patient on oxygen 3L via NC, saturating 99%. Will continue to monitor.
[2019-09-02] MEDS: Depakote 125mg Sprinkles NG SCH ×2 (08:44→20:53)
[2019-09-02] MEDS: Eliquis 5mg tablet NGT SCH ×2 (08:44→18:11)
[2019-09-02] MEDS: Ciprofloxacin 500mg tab NG SCH ×2 (08:44→20:53)
[2019-09-02] MEDS: Vancomycin 1gm/D5W 275ml IVPB SCH ×4 (09:40→21:00)
--- NOTE | 2019-09-02 10:00 | NUR ---
NURSE NOTES: Repositioned patient. No distress at this time, on 3L oxygen via NC. Tube feeding ongoing, tolerating well. HOB elevated. No s/s of pain/discomfort at this time. Bed locked, alarmed, in lowest position.
--- NOTE | 2019-09-02 10:53 | Infectious Diseases Prog Note ---
Assessment/Plan Assessment/Plan Assessment: Sepsis Persistent Gram positive bacteremia- suspect PICC line infection- persist despite removal picc line- r/o endocarditis -08/30, Bcx NTD 2d echo: no vegetations noted -08/27 PICC line removed; cath tip cx Neg Bcx 1/4 S. epi -08/22 Bcx 2/4 S.epi; 2/3 bcx Picc NTD, peripheral CONS Recurrent aspiration pneumonia -08/25 CXR:Suspicion of slightly worsening CHF -08/22 cXR: Possible mild pulmonary vascular congestion. No change from the prior study -08/21 sp cx S. aureus, MDR PsA (S Amikacin, Cipro/levo; R Cefepime, Meropenem) -08/18 cXR: The lungs remain clear. There may be some minimal basal atelectasis -08/14 CXR: Cardiomegaly. Mild interstitial congestion, unchanged over 3 days -07/31, 08/01 sp cx normal resp sunny -07/12 sp cx normal -07/12 SP FLEXIBLE FIBEROPTIC BRONCHOSCOPY WITH BRONCHOALVEOLAR LAVAGE AND THERAPEUTIC ASPIRATION OF MUCOUS PLUG LEFT LUNG -07/11/20 CXR: Bilateral pulmonary edema/infiltrates. Possible small pleural effusions. Fever, recurrent- resolved Leukocytosis, recurrent; increased, now improving -09/[address] c/abd/p w/: Basilar pulmonary atelectasis and possibly patchy consolidation in the bilateral posterior lower lobes. Borderline cardiomegaly. Moderate right hydronephrosis and enlargement of the right kidney, despite apparent satisfactory position of a right nephroureteral stent. Possibility of stent dysfunction should be considered. Atrophic left kidney. Left nephroureteral stent in place, no hydronephrosis. Bilateral renal calyceal and parenchymal calcifications, also previously reported. Extensive chronic skeletal deformity, with evidence of spinal dysraphism, scoliosis, evidence of prior spinal fusion, and other abnormalities detailed above. Unusual round structure superior to the upper pole left kidney posterior to the spleen, also described previously and unchanged, possibly an area of fatty infarction, unusual adrenal lesion, or an unusual accessory splenule. This is also stable since 2017. There is extensive pelvic deformity. There is marked abnormal soft tissue surrounding the rectum. There is a tract extending posteriorly from the distal rectum. Uncertain as whether this represents an otherwise normal but unusually positioned anus versus a fistula tract. Correlate with clinical findings. Extensive chronic appearing pelvic decubitus changes, with evidence of chronic osseous destruction of the sacrum and coccyx, appearing unchanged from prior study 08/23/2018. Discontinuous ventriculoperitoneal shunt tubing is again demonstrated. 2.2 cm calcified right lower pole thyroid nodule. Consider thyroid sonography for further evaluation Minimal anterior wall pericardial thickening versus fluid. Recurrent hypoxic respiratory failure 2ry to above -sp intubation 07/31/19 and extubation 08/11/19 -s/p intubation 07/12/19 and extubation 07/19/19 UTI , recurrent R hydronephrosis -09/01 u/A wbc 10-15, nit neg, leuk +2; Ucx NTD -08/21 u/a wbc tnct, nit neg, leuk large; ucx >100k PsA (I Cefepime, Levaquin ; S Imipenem, Cipro) -08/11 ucx C. parapsilosis (colinzer) - 07/12 Ucx PsA (R Ceftazidime, levaquin; I Ciprofloxacin; otherwise S), VRE ( S Amp, linezolid) -07/11/19 u/a wbc tntc, nit neg, leuk +3; ucx PsA, ESBL E.coli, P. mirabilis S. mitis bacteremia- likely contaminant -07/28 Bcx 07/26 S. mitis; 07/29, 08/01, 08/03 Bcx neg HTN Dm2 spina bifida s/p [employer]GET[employer]OR shunt decubiti ulcers wheelchair bound/paraplegic b/l renal stents neurogenic bladder s/p suprapubic catheter recurrent UTIs Plan: -Continue Meropenem #05/05 and PO Cipro #8 (abx d #04/01-) -Continue IV Vancomycin #10 for S. aureus PNA and CONS bacteremia -2/3 SP Amikacin #4 -2 SP Cefepime and Flagyl #3 -08/11 SP Linezolid and Meropenem #15 -08/06 SP Micafungin #4 -f/u cx -Monitor CBC/CMP, temperatures -aspiration precautions -GI, pulm f/u -speech therapy recommending PEG, family is refusing -f/u Bcx x2 (peripheral and pICC line), ucx -May need ADINA if recurrent bacteremia -URo eval Thank you for this consultation. Will continue to follow along with you. Discussed with RN Subjective Allergies: Coded Allergies: LATEX (Verified Allergy, Severe, Rash on skin, 08/19/19) PENICILLIN G (Verified Allergy, Unknown, 12/02/18) Tolerates cabapenem, cephalosporin PENICILLINS (Unverified Allergy, Unknown, 12/02/18) Subjective afebrile in >48hrs wbc improving repeat Bcx NTD Objective Vital Signs Last 24 Hour Vital Signs Date Time Temp Pulse Resp B/P (MAP) Pulse Ox O2 Delivery O2 Flow Rate FiO2 09/02/19 10:00 84 15 95/50 (65) 98 09/02/19 10:00 76 13 107/60 (76) 99 09/02/19 09:00 84 15 95/50 (65) 98 09/02/19 08:02 75 09/02/19 08:00 Nasal Cannula 3.0 Nasal Cannula 3.0 Nasal Cannula 3.0 09/02/19 08:00 98.7 79 14 82/50 (61) 96 09/02/19 08:00 3.0 09/02/19 07:12 72 15 100 Nasal Cannula 3.0 32 75 18 99 09/02/19 07:12 99 Nasal Cannula 3.0 32 09/02/19 07:00 75 16 83/62 (69) 98 09/02/19 06:00 79 18 98/59 (72) 99 09/02/19 05:22 69 17 100 Facial 35 09/02/19 05:00 83 21 107/72 (84) 99 09/02/19 04:00 97.8 76 14 97/61 (73) 100 09/02/19 04:00 Bi-pap Bi-pap Bi-pap 09/02/19 04:00 71 09/02/19 04:00 35 09/02/19 03:44 75 17 100 Nasal Cannula 3.0 32 09/02/19 03:29 74 20 100 Nasal Cannula 3.0 32 09/02/19 03:29 74 20 100 Facial 35 09/02/19 03:00 74 19 104/67 (79) 100 09/02/19 02:00 80 16 105/70 (82) 99 09/02/19 01:00 76 20 103/67 (79) 100 09/02/19 00:56 77 17 100 Facial 35 09/02/19 00:00 35 09/02/19 00:00 98.0 73 19 115/76 (89) 98 09/02/19 00:00 76 09/02/19 00:00 Bi-pap Bi-pap Bi-pap 09/01/19 23:45 70 18 100 Facial 35 09/01/19 23:00 73 17 92/57 (69) 99 09/01/19 22:00 82 19 114/71 (85) 93 09/01/19 21:27 81 21 100 Facial 35 09/01/19 21:00 84 14 107/62 (77) 89 09/01/19 20:00 74 09/01/19 20:00 3.0 09/01/19 20:00 97.9 76 15 114/72 (86) 94 09/01/19 20:00 Nasal Cannula 3.0 Nasal Cannula 3.0 Nasal Cannula 3.0 09/01/19 19:58 99 Nasal Cannula 3.0 28 09/01/19 19:58 87 22 100 Nasal Cannula 3.0 32 74 20 96 09/01/19 19:00 76 13 100/57 (71) 85 09/01/19 18:00 78 14 100/59 (73) 93 09/01/19 17:00 77 16 92/59 (70) 97 09/01/19 16:00 90 09/01/19 16:00 3.0 09/01/19 16:00 98.5 88 16 116/70 (85) 96 09/01/19 16:00 Nasal Cannula 3.0 Nasal Cannula 3.0 Nasal Cannula 3.0 09/01/19 15:00 93 21 109/70 (83) 95 09/01/19 14:44 90 19 99 Nasal Cannula 3.0 32 91 19 97 09/01/19 14:00 93 19 92/59 (70) 97 09/01/19 13:00 94 15 96/62 (73) 93 09/01/19 12:10 91 17 100 Nasal Cannula 3.0 32 91 18 99 09/01/19 12:00 89 09/01/19 12:00 Nasal Cannula 3.0 Nasal Cannula 3.0 Nasal Cannula 3.0 09/01/19 12:00 3.0 09/01/19 12:00 98.9 88 16 116/70 (85) 96 09/01/19 11:00 91 19 114/73 (87) 91 Height (Feet): 4 Height (Inches): 10.00 Weight (Pounds): 118 Objective General Appearance: not in distress EENT: normal ENT inspection Neck: supple Cardiovascular: normal rate Respiratory/Chest: decreased breath sounds Abdomen: normal bowel sounds, non tender, soft Extremities: non-tender Microbiology Date/Time Source Procedure Growth Status 08/31/19 05:00 Blood Blood Culture - Preliminary NO GROWTH AFTER 24 HOURS Resulted 08/31/19 04:55 Blood Blood Culture - Preliminary NO GROWTH AFTER 24 HOURS Resulted 09/01/19 19:15 Stool Clostridium difficile Toxin Assay - Final Complete 09/01/19 11:20 Urine,Clean Catch Urine Culture - Preliminary NO GROWTH Resulted Laboratory Tests Test 09/01/19 11:20 09/01/19 20:05 09/02/19 05:45 Urine Color Pale yellow Urine Appearance Slightly cloudy Urine pH 8 (4.5-8.0) Urine Specific Hatch 1.015 (1.005-1.035) Urine Protein 3+ (NEGATIVE) H Urine Glucose (UA) Negative (NEGATIVE) Urine Ketones 1+ (NEGATIVE) H Urine Blood 5+ (NEGATIVE) H Urine Nitrite Negative (NEGATIVE) Urine Bilirubin Negative (NEGATIVE) Urine Urobilinogen Normal MG/DL (0.0-1.0) Urine Leukocyte Esterase 2+ (NEGATIVE) H Urine RBC 30-40 /HPF (0 - 2) H Urine WBC 10-15 /HPF (0 - 2) H Urine Squamous Epithelial Cells Few /LPF (NONE/OCC) Urine Bacteria Few /HPF (NONE) Vancomycin Level Trough 10.5 ug/mL (5.0-12.0) White Blood Count 12.9 K/UL (4.8-10.8) H Red Blood Count 3.76 M/UL (4.20-5.40) L Hemoglobin 9.3 G/DL (12.0-16.0) L Hematocrit 28.8 % (37.0-47.0) L Mean Corpuscular Volume 77 FL (80-99) L Mean Corpuscular Hemoglobin 24.8 PG (27.0-31.0) L Mean Corpuscular Hemoglobin Concent 32.4 G/DL (32.0-36.0) Red Cell Distribution Width 21.1 % (11.6-14.8) H Platelet Count 359 K/UL (150-450) Mean Platelet Volume 5.3 FL (6.5-10.1) L Neutrophils (%) (Auto) 77.7 % (45.0-75.0) H Lymphocytes (%) (Auto) 14.3 % (20.0-45.0) L Monocytes (%) (Auto) 4.5 % (1.0-10.0) Eosinophils (%) (Auto) 2.9 % (0.0-3.0) Basophils (%) (Auto) 0.6 % (0.0-2.0) Sodium Level 139 MMOL/L (136-145) Potassium Level 3.6 MMOL/L (3.5-5.1) Chloride Level 100 MMOL/L (98-107) Carbon Dioxide Level 34 MMOL/L (21-32) H Anion Gap 5 mmol/L (5-15) Blood Urea Nitrogen 12 mg/dL (7-18) Creatinine 0.3 MG/DL (0.55-1.30) L Estimat Glomerular Filtration Rate > 60 mL/min (>60) Glucose Level 108 MG/DL (74-106) H Calcium Level 8.8 MG/DL (8.5-10.1) Total Bilirubin 0.2 MG/DL (0.2-1.0) Aspartate Amino Transf (AST/SGOT) 10 U/L (15-37) L Alanine Aminotransferase (ALT/SGPT) 9 U/L (12-78) L Alkaline Phosphatase 58 U/L (46-116) Total Protein 7.0 G/DL (6.4-8.2) Albumin 2.5 G/DL (3.4-5.0) L Globulin 4.5 g/dL Albumin/Globulin Ratio 0.6 (1.0-2.7) L Current Medications Medications (Trade) Dose Ordered Sig/Sandeep Route PRN Reason Start Time Stop Time Status Last Admin Dose Admin Acetaminophen (Tylenol) 650 mg Q4H PRN NG Mild Pain/Temp > 100.5 08/22/19 10:30 09/21/19 10:29 08/30/19 20:18 Acetylcysteine (Mucomyst) 400 mg Q4HRT HHN 08/16/19 11:00 09/15/19 10:59 09/02/19 07:11 Albuterol/ Ipratropium (Albuterol/ Ipratropium) 3 ml Q4HRT HHN 09/01/19 23:00 09/06/19 22:59 09/02/19 07:12 Apixaban (Eliquis) 5 mg BID NGT 08/16/19 09:00 09/11/19 17:59 09/02/19 08:44 Barium Sulfate (Readi-Cat 2) 450 ml NOW PRN ORAL Radiology Procedure 09/01/19 10:15 09/03/19 10:06 09/01/19 12:33 Ciprofloxacin (Cipro 500mg tab) 500 mg EVERY 12 HOURS NG 08/25/19 21:00 09/08/19 20:59 09/02/19 08:44 Divalproex Sodium (Depakote Sprinkles) 500 mg Q12HR NG 08/15/19 21:00 09/14/19 20:59 09/02/19 08:44 Meropenem 1 gm/ Sodium Chloride 55 ml @ 110 mls/hr Q8HR IVPB 08/23/19 14:00 09/03/19 23:59 09/02/19 05:41 Metoclopramide HCl (Reglan) 5 mg Q6H PRN IVP Nausea & Vomiting 08/04/19 10:00 09/03/19 09:59 Polyethylene Glycol (Miralax) 17 gm BEDTIME ORAL 08/20/19 21:00 09/19/19 20:59 08/31/19 20:52 Vancomycin HCl (Vanco rx to dose) 1 ea DAILY PRN MISC Per rx protocol 08/23/19 09:45 09/22/19 09:44 Vancomycin HCl 1 gm/Dextrose 275 ml @ 183.708 mls/hr Q12H IVPB 09/01/19 22:00 09/06/19 21:59 09/02/19 09:40 Joaquina Hill M.D. Sep 02, 2019 10:53
--- NOTE | 2019-09-02 11:05 | NUR ---
ST NOTES: UPDATED SUMMARY ON MODIFIED BARIUM SWALLOW COMPLETED ON 08/29/19: MOD BARIUM SWALLOW STUDY COMPLETED ON 08/29/19 WITH Damian KHAN WHO WROTE SUMMARY OF INITIAL IMPRESSIONS. Ana JAMES, COMPENSATION AGENT, REVIEWED IMAGES ON 09/01/19 AND 09/02/19 AND COMPLETED FORMAL REPORT. PATIENT HAS [address] ON 4 LITERS NC WITH BASELINE RESP RATE AT 20-21 AND UP TO 23-24 WITH SOB, RETURNED TO BASELINE AFTER RESTING A 1-2 MINUTES. 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 LEVEL 4 ON THE DYSPHAGIA OUTCOME SEVERITY SCALE (DYLLAN) THIN LIQUIDS TSP WARMUP SWALLOW (NOT RECORDED) TSP NO ASPIRATION NOR LARYNGEAL PENETRATION (LP) CUP AND STRAW SIP TRACE AND AUDIBLE LP BEFORE THE SWALLOW ABOVE VOCAL FOLDS WITH EJECTION DUE TO DELAYED SWALLOW AND LATE LARYNGEAL VESTIBULE CLOSURE (LVC). NOT GIVEN SEQUENTIAL SIPS SINCE SHE DID NOT FOLLOW COMMANDS FOR SWALLOW STRATEGIES. ADDITIONAL RISK FOR ASP/LP AFTER THE SWALLOW DUE TO OROPHARYNGEAL DYSMOTILITY RESULTING IN RESIDUE. ORAL MORE THAN PHARYNGEAL (VALLECULAE MORE THAN PYRIFORM SINUSES) RESIDUE. NECTAR THICK LIQUIDS TSP NO ASP/LP CUP AND STRAW ONE SIP TRACE AND AUDIBLE LP BEFORE SWALLOW ABOVE VOCAL FOLDS WITH EJECTION DUE TO DELAYED SWALLOW AND LATE LVC. WITH CUP MOVED HEAD UP SPONTANEOUSLY (TENDS TO SPONTANEOUSLY MOVE HER HEAD AROUND AT TIMES) NOT GIVEN SEQUENTIAL SIPS DUE TO HIGHER ASP RISK AND POOR FOLLOWING COMMANDS. ADDITIONAL RISK FOR ASP/LP AFTER THE SWALLOW DUE TO OROPHARYNGEAL DYSMOTILITY RESULTING IN RESIDUE. ORAL MORE THAN PHARYNGEAL (VALLECULAE MORE THAN PYRIFORM SINUSES) RESIDUE. HONEY THICK LIQUID TSP TRACE LP TO ABOVE VOCAL FOLD WITH EJECTION AND AFTER THE SWALLOW DUE TO REDUCED BASE OF TONGUE RETRACTION (MIN/MILD VALLECULAE RESIDUE FELL TO PYRIFORM SINUS). ADDITIONAL ASP/LP AFTER THE SWALLOW DUE POOR BOLUS TRANSPORT (MILD RESIDUE) PUDDING TSP - NO ASPIRATION/PENETRATION BUT HAS RISK AFTER THE SWALLOW DUE TO MILD RESIDUE IN THE VALLECULAE WHICH DID NOT CLEAR WITH MAX VERBAL CUES (PATIENT SOB AND MOVING HEAD AROUND). MASTICATED SOLID (1/2 COOKIE AND 3CC PUDDING) NO ASPIRATION/LP BUT HAS RISK DUE TO OROPHARYNGEAL DYSMOTILITY (ORAL MORE THAN PHARYNGEAL RESIDUE). HIGH RISK FOR ASP/LP AND LESS EFFICIENT SWALLOW DUE TO THE FOLLOWING COMPONENTS: Oral Impairment Tongue Control Bolus prep/mastication Bolus transport/lingual motion Oral residue / sensation (needed max cues to clear mild residue) Init. pharyngeal swallow Pharyngeal Impairment Laryngeal elevation (LE) Ant. hyoid excursion Epiglottic movement Late larynggeal vestibule closure Pharyngeal stripping wave Tongue base retraction Pharyngeal residue Decreased pharyngeal sensation (needed max cues to clear min-mild residue) ESOPHAGEAL PHASE LIMITED IN LATERAL: GROSSLY FUNCTIONAL TRIAL TX: BENEFITS FROM MORE TIME TO SWALLOW, EXTRA AND CUED HARD SWALLOWS, RESTING FOR 1-2 MINS IF RESP RATE GOES UP. COULD NOT FOLLOW COMMANDS FOR CHIN TUCK, EFFORTFUL BREATH HOLD, NOR OTHER STRATEGIES TO PROTECT AIRWAY. COULD BENEFIT FROM LIQUID WASH. RECOMMENDATIONS: CONSERVATIVELY, CONTINUE WITH NONORAL FEEDINGS (NGT) AND ORAL CARE TODAY AND OVER THE WEEKEND. HOLD ON PO INTAKE UNTIL PRIMARY COMPENSATION AGENT (Ana JAMES) REVIEWS IMAGES AND MAKES A DECISION ON PO INTAKE WITH ASPIRATION PRECAUTIONS AND SWALLOWING STRATEGIES. SKILLED DYSPHAGIA MANAGEMENT AND TRIAL TX Addendum: 09/02/19 at 1645 by JOSÉ JAMES COMPENSATION AGENT WEEKLY SUMMARY NOTED ABOVE.
--- NOTE | 2019-09-02 11:34 | NUR ---
ST NOTES: SWALLOW STATUS: PATIENT STILL NOT ON PO INTAKE DUE TO ABDOMINAL PROCEDURE/EXAM YESTERDAY. WILL INITIATE MOIST PUREED DIET AND NECTAR THICK LIQUIDS (TSP ONLY) WITH POSTED ASPIRATION PRECAUTIONS. REVIEWED MODIFIED BARIUM SWALLOW STUDY WITH RN (TONE) WHO WILL FEED PATIENT AT LUNCH TODAY (SEE REPORT FOR SPECIFIC ASPIRATION PRECAUTIONS AND SWALLOWING STRATEGIES. WILL HOLD ON NGT FEEDINGS FOR NOW TO SEE HOW MUCH PATIENT TAKES IN. PATIENT IS TOO SLEEPY NOW FOR PO TRIALS WITH WELDER JOURNEYMAN. PLAN: INITIATE PUREED AND NECTAR THICK LIQUIDS USING STRICT ASPIRATION PRECAUTIONS AND SWALLOWING STRATEGIES AND ONE TO ONE FEEDING. PER STEVEN KINGSTON, SEND REGULAR TYPE DIET AND GLUCERNA TID SUPPLEMENTS. RESP RATE NOT ABOVE 25 BPM AND TSP ONLY. OK TO HAVE FREE WATER TSP LEVEL (NO NEED TO THICKEN HER WATER, ALL OTHER LIQUIDS NECTAR THICK FOR NOW). D/W DR KIM WHO AGREED WITH RECOMMENDATIONS. Addendum: 09/02/19 at 1137 by JOSÉ AJMES WELDER JOURNEYMAN ABOVE NOTE IS THE WEEKLY SWALLOW/SPEECH THERAPY SUMMARY
--- NOTE | 2019-09-02 12:00 | NUR ---
NURSE NOTES: Breathing treatment ongoing as scheduled; RT at bedside. Dr Davis also at bedside, no new orders at this time. Patient asleep, no s/s of pain/discomfort. Will continue to monitor.
--- NOTE | 2019-09-02 13:00 | NUR ---
NURSE NOTES: Patient asleep, unable to feed orally at this time; TF ongoing. Charge nurse notified and made aware.
--- NOTE | 2019-09-02 14:00 | NUR ---
NURSE NOTES: Repositioned patient. TF ongoing, HOB elevated. VSS, patient saturating 94% on 3L via NC. Will continue to monitor. No s/s of pain/distress. Will continue to monitor.
[2019-09-02] MEDS ORDERED: NS 275ml ONE (15:02)
--- NOTE | 2019-09-02 15:28 | NUR ---
NURSE NOTES: RT at bedside for breathing treatment.
--- NOTE | 2019-09-02 16:00 | NUR ---
NURSE NOTES: Family at bedside. Patient is awake, no distress at this time. Will continue to monitor.
--- NOTE | 2019-09-02 18:00 | NUR ---
NURSE NOTES: Fed patient orally, ate 25% of dinner, tolerated well. Patient remains on 3L oxygen via NC, saturating 98% at this time. TF ongoing, HOB elevated. No s/s of pain/discomfort. Bed locked, alarmed, and in lowest position, side rails up x2; will continue to monitor patient.
--- NOTE | 2019-09-02 18:01 | Internal Med Progress Note ---
Subjective Date of Service: Sep 02, 2019 Physician Name Niraj Teixeira Attending Physician Wil Masters MD Current Medications Medications (Trade) Dose Ordered Sig/Sandeep Route PRN Reason Start Time Stop Time Status Last Admin Dose Admin Acetaminophen (Tylenol) 650 mg Q4H PRN NG Mild Pain/Temp > 100.5 08/22/19 10:30 09/21/19 10:29 08/30/19 20:18 Acetylcysteine (Mucomyst) 400 mg Q4HRT HHN 08/16/19 11:00 09/15/19 10:59 09/02/19 15:25 Albuterol/ Ipratropium (Albuterol/ Ipratropium) 3 ml Q4HRT HHN 09/01/19 23:00 09/06/19 22:59 09/02/19 15:25 Apixaban (Eliquis) 5 mg BID NGT 08/16/19 09:00 09/11/19 17:59 09/02/19 08:44 Barium Sulfate (Readi-Cat 2) 450 ml NOW PRN ORAL Radiology Procedure 09/01/19 10:15 09/03/19 10:06 09/01/19 12:33 Ciprofloxacin (Cipro 500mg tab) 500 mg EVERY 12 HOURS NG 08/25/19 21:00 09/08/19 20:59 09/02/19 08:44 Divalproex Sodium (Depakote Sprinkles) 500 mg Q12HR NG 08/15/19 21:00 09/14/19 20:59 09/02/19 08:44 Meropenem 1 gm/ Sodium Chloride 55 ml @ 110 mls/hr Q8HR IVPB 08/23/19 14:00 09/06/19 23:59 09/02/19 14:03 Metoclopramide HCl (Reglan) 5 mg Q6H PRN IVP Nausea & Vomiting 08/04/19 10:00 09/03/19 09:59 Polyethylene Glycol (Miralax) 17 gm BEDTIME ORAL 08/20/19 21:00 09/19/19 20:59 08/31/19 20:52 Vancomycin HCl (Vanco rx to dose) 1 ea DAILY PRN MISC Per rx protocol 08/23/19 09:45 09/22/19 09:44 Vancomycin HCl 1 gm/Dextrose 275 ml @ 183.708 mls/hr Q12H IVPB 09/01/19 22:00 09/06/19 21:59 09/02/19 09:40 Allergies: Coded Allergies: LATEX (Verified Allergy, Severe, Rash on skin, 08/19/19) PENICILLIN G (Verified Allergy, Unknown, 12/02/18) Tolerates cabapenem, cephalosporin PENICILLINS (Unverified Allergy, Unknown, 12/02/18) ROS Limited/Unobtainable: Yes Subjective 49 YO F with pneumonia and respiratory failure. Extubated 08/11/19. Cover for Int Med-DR Masters. ICU. Objective Last Vital Signs Date Time Temp Pulse Resp B/P (MAP) Pulse Ox O2 Delivery O2 Flow Rate FiO2 09/02/19 17:00 86 19 122/88 (99) 95 09/02/19 16:00 3.0 09/02/19 16:00 98.8 09/02/19 16:00 Nasal Cannula Nasal Cannula Nasal Cannula 09/02/19 15:26 32 Laboratory Tests Test 09/01/19 20:05 09/02/19 05:45 Vancomycin Level Trough 10.5 ug/mL (5.0-12.0) White Blood Count 12.9 K/UL (4.8-10.8) H Red Blood Count 3.76 M/UL (4.20-5.40) L Hemoglobin 9.3 G/DL (12.0-16.0) L Hematocrit 28.8 % (37.0-47.0) L Mean Corpuscular Volume 77 FL (80-99) L Mean Corpuscular Hemoglobin 24.8 PG (27.0-31.0) L Mean Corpuscular Hemoglobin Concent 32.4 G/DL (32.0-36.0) Red Cell Distribution Width 21.1 % (11.6-14.8) H Platelet Count 359 K/UL (150-450) Mean Platelet Volume 5.3 FL (6.5-10.1) L Neutrophils (%) (Auto) 77.7 % (45.0-75.0) H Lymphocytes (%) (Auto) 14.3 % (20.0-45.0) L Monocytes (%) (Auto) 4.5 % (1.0-10.0) Eosinophils (%) (Auto) 2.9 % (0.0-3.0) Basophils (%) (Auto) 0.6 % (0.0-2.0) Sodium Level 139 MMOL/L (136-145) Potassium Level 3.6 MMOL/L (3.5-5.1) Chloride Level 100 MMOL/L (98-107) Carbon Dioxide Level 34 MMOL/L (21-32) H Anion Gap 5 mmol/L (5-15) Blood Urea Nitrogen 12 mg/dL (7-18) Creatinine 0.3 MG/DL (0.55-1.30) L Estimat Glomerular Filtration Rate > 60 mL/min (>60) Glucose Level 108 MG/DL (74-106) H Calcium Level 8.8 MG/DL (8.5-10.1) Total Bilirubin 0.2 MG/DL (0.2-1.0) Aspartate Amino Transf (AST/SGOT) 10 U/L (15-37) L Alanine Aminotransferase (ALT/SGPT) 9 U/L (12-78) L Alkaline Phosphatase 58 U/L (46-116) Total Protein 7.0 G/DL (6.4-8.2) Albumin 2.5 G/DL (3.4-5.0) L Globulin 4.5 g/dL Albumin/Globulin Ratio 0.6 (1.0-2.7) L Microbiology Date/Time Source Procedure Growth Status 08/31/19 05:00 Blood Blood Culture - Preliminary NO GROWTH AFTER 24 HOURS Resulted 08/31/19 04:55 Blood Blood Culture - Preliminary NO GROWTH AFTER 24 HOURS Resulted 09/01/19 19:15 Stool Clostridium difficile Toxin Assay - Final Complete 09/01/19 11:20 Urine,Clean Catch Urine Culture - Preliminary NO GROWTH Resulted Intake and Output 09/01/19 09/02/19 19:00 07:00 Intake Total 515 ml 775 ml Output Total 770 ml 800 ml Balance -255 ml -25 ml IV Total 55 ml Tube Feeding 275 ml 660 ml Other 240 ml 60 ml Output Urine Total 770 ml 800 ml # Bowel Movements 1 4 Objective General Appearance: WD/WN, moderate distress EENT: PERRL/EOMI, normal ENT inspection Neck: non-tender, normal alignment, supple Cardiovascular: normal peripheral pulses, normal rate, regular rhythm, no gallop/murmur, no JVD Respiratory/Chest: Nasal canula; crackles/rales, rhonchi - bilaterally, expiratory wheezing Abdomen: normal bowel sounds, non tender, soft, no organomegaly, no mass Skin: normal pigmentation, warm/dry Assessment/Plan Problem List: (1) Respiratory failure with hypoxia Assessment & Plan: Tolerating venturi mask. S/P extubation 08/11/19 per pulmonary=Dr Bonilla (2) Pneumonia of both lower lobes Assessment & Plan: See ID note. Continue meropenem and vanco. (3) UTI (urinary tract infection) Assessment & Plan: Pseudamonas, ESBL E. Coli, and vanco resistant enterococcus. See ID note; Dr Sanabria signed off. Await new ID consult= Dr Buck/Milly. S/P meropenem, linezolid and micafugin (4) Sepsis (5) Paraplegia (6) Spina bifida Assessment/Plan Discharge plan: [facility] Niraj Teixeira MD Sep 02, 2019 18:01
--- NOTE | 2019-09-02 19:08 | NUR ---
HAND-OFF: Report given to Ioana Mark RN. Endorsed plan of care. Patient in stable condition.
--- NOTE | 2019-09-02 19:10 | NUR ---
NURSE NOTES: Received report from EMMA Gaytan. Patient in awake,alert verbally responsive. no s/s of acute distress noted. On 3L oxygen via N/C satting 100%. NGT intact Glucerna 1.5 at 55cc/hr no residual. HOB. Patient with diet order regular pureed moist nectar thick. Suprapubic cath intact draining. Left foot IV line intact. Family at bedside. Instructed patient to use call light for assistance. bed alarm on. bed locked and in low position. contact isolation maintained and observed. bed alarm on. bed locked and in low position. Call light within easy reach. Coloring book and crayon on the table. will continue plan of care.
--- NOTE | 2019-09-02 19:30 | Progress Note ---
DATE: 09/02/2019 SUBJECTIVE: The patient's mental condition is unchanged since previous encounter. She has waxing and waning consciousness and episodes of anxiety. The patient still has cognitive impairment and waxing and waning consciousness. MENTAL STATUS EXAMINATION: The patient is asleep, arousable, dozing off. Mood is neutral to anxious. Affect is flat. Thought process is concrete. Thought content, no suicidal or homicidal ideation. The patient's cognition is impaired. Insight and judgment is impaired. ASSESSMENT: Agitation. PLAN: 1. The patient received a dose of Ativan last night for agitation. 2. Continue the Depakote. 3. She would benefit from Haldol p.r.n. 4. We will discuss with the primary. Kobi Reyes M.D. DR: SIERRA JOB#: [id number] CC:
[2019-09-02] MEDS: Miralax 17gm pkt ORAL SCH (20:53)
--- NOTE | 2019-09-02 21:00 | NUR ---
NURSE NOTES: Patient awake watching TV. no s/s of acute distress noted. on 3L oxygen via N/C satting 100%.frequent visual checks continued.
--- NOTE | 2019-09-02 22:00 | NUR ---
NURSE NOTES: Patient called nurse for help when checked patient found patient NGT accidentally pulled out when the towel fell on the floor. patient refused to reinsert NGT explained the importance v/s risk and benefits still refused. Patient with diet orders. will try again and will follow up with MD if MD still wants NGT insertion. charge nurse aware.
--- NOTE | 2019-09-02 23:08 | NUR ---
RESPIRATORY NOTE: PT PLACED ON BIPAP PER CURRENT RESPIRATORY ORDERS: 06/28, RATE: 14, 35% FIO2. FOAM TAPE WAS PLACED ON PT'S FACE. NO REDNESS OR SKIN BREAKDOWN NOTED UPON FACIAL INSPECTION. BIPAP CIRCUIT AND MASK ARE SECURE AND OUT OF THE WAY. ALARMS ARE ON AND AUDIBLE. NO SOB NOTED. WILL CONTINUE TO MONITOR.
--- NOTE | 2019-09-02 23:16 | Pulmonolgy Critical Care Note ---
Critical Care - Asmt/Plan Assessment/Plan: Pulmonary CCM Progress Note Assessment/Plan: (1) Pneumonia of both lower lobes Assessment & Plan: VDRF, intubated 07/12/19, S/P FOB 07/12/19; Reintubated ; extubated 08/11/19, currently NC O2, PRN BiPAP (2) Catheter-associated urinary tract infection Assessment & Plan: PsA and proteus - s/p treatment (3) Respiratory failure with hypoxia Assessment & Plan: Acute on chronic hypercapnic and hypoxemic RF 2/2 PNA Duplex neg, minimally elevated d-dimer, unlikely VTE and already on a NOAC (4) HCAP (healthcare-associated pneumonia) (5) Paraplegia (6) Sepsis (7) Suprapubic catheter (8) Restrictive lung disease due to kyphoscoliosis (9) Decubitus skin ulcer (10) Spina bifida (11) Anemia, acute (12) hx recurrent PE on eliquis Plan: * monitor closely * respiratory care * NGT for feeds * ABG prn * DW PMD - consider LTACweek * BiPAP qhs and prn * High risk for recurrent respiratory failure and reintubation and discussed with the patiet's family previously * If gets reintubated, will need trach placement * holding abx * Good pulmonary hygiene: duonebs and mucomyst q4 * She had recurrent PE as outpatient. 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 Discussed with: nurses, PMD Critical Care - Objective Vital Signs Noted Status: awake Lungs: CTA Heart: HS1, HS2, RRR Abdomen: soft, non-tender Extremities: mild edema Labs/Micro: noted Subjective: Less SOB, mainly on NC O2 still requiring frequent suctioning no fever no distress awake wears bipap at night and PRN Seen earlier Critical Care - Objective Last 24 Hour Vital Signs Date Time Temp Pulse Resp B/P (MAP) Pulse Ox O2 Delivery O2 Flow Rate FiO2 09/02/19 23:08 Bi-Pap 09/02/19 23:00 86 17 109/71 (84) 96 09/02/19 22:00 90 20 116/76 (89) 96 09/02/19 21:00 95 19 113/71 (85) 96 09/02/19 20:00 99.5 92 19 121/82 (95) 97 09/02/19 20:00 Nasal Cannula 3.0 Nasal Cannula 3.0 Nasal Cannula 3.0 09/02/19 20:00 3.0 09/02/19 19:59 96 Nasal Cannula 3.0 32 09/02/19 19:59 93 18 98 Nasal Cannula 3.0 32 92 20 96 09/02/19 19:00 97 21 108/73 (85) 96 09/02/19 18:00 92 20 124/70 (88) 97 09/02/19 17:00 86 19 122/88 (99) 95 09/02/19 16:00 3.0 09/02/19 16:00 98.8 09/02/19 16:00 Nasal Cannula 3.0 Nasal Cannula 3.0 Nasal Cannula 3.0 09/02/19 16:00 98.8 91 17 101/56 (71) 99 09/02/19 15:48 87 09/02/19 15:26 76 15 100 Nasal Cannula 3.0 32 83 15 97 09/02/19 15:00 83 16 108/65 (79) 96 09/02/19 14:00 91 18 99/63 (75) 94 09/02/19 13:00 87 13 94/54 (67) 97 09/02/19 12:00 3.0 09/02/19 12:00 88 09/02/19 12:00 98.0 84 16 100/63 (75) 100 09/02/19 12:00 Nasal Cannula 3.0 Nasal Cannula 3.0 Nasal Cannula 3.0 09/02/19 11:39 76 15 100 Nasal Cannula 3.0 32 81 12 98 09/02/19 11:00 78 15 106/62 (77) 100 09/02/19 10:00 84 15 95/50 (65) 98 09/02/19 10:00 76 13 107/60 (76) 99 09/02/19 09:00 84 15 95/50 (65) 98 09/02/19 08:02 75 09/02/19 08:00 Nasal Cannula 3.0 Nasal Cannula 3.0 Nasal Cannula 3.0 09/02/19 08:00 98.7 79 14 82/50 (61) 96 09/02/19 08:00 3.0 09/02/19 07:12 72 15 100 Nasal Cannula 3.0 32 75 18 99 09/02/19 07:12 99 Nasal Cannula 3.0 32 09/02/19 07:00 75 16 83/62 (69) 98 09/02/19 06:00 79 18 98/59 (72) 99 09/02/19 05:22 69 17 100 Facial 35 09/02/19 05:00 83 21 107/72 (84) 99 09/02/19 04:00 97.8 76 14 97/61 (73) 100 09/02/19 04:00 Bi-pap Bi-pap Bi-pap 09/02/19 04:00 71 09/02/19 04:00 35 09/02/19 03:44 75 17 100 Nasal Cannula 3.0 32 09/02/19 03:29 74 20 100 Nasal Cannula 3.0 32 09/02/19 03:29 74 20 100 Facial 35 09/02/19 03:00 74 19 104/67 (79) 100 09/02/19 02:00 80 16 105/70 (82) 99 09/02/19 01:00 76 20 103/67 (79) 100 09/02/19 00:56 77 17 100 Facial 35 09/02/19 00:00 35 09/02/19 00:00 98.0 73 19 115/76 (89) 98 09/02/19 00:00 76 09/02/19 00:00 Bi-pap Bi-pap Bi-pap 09/01/19 23:45 70 18 100 Facial 35 Micro: Microbiology Date/Time Source Procedure Growth Status 08/31/19 05:00 Blood Blood Culture - Preliminary NO GROWTH AFTER 24 HOURS Resulted 08/31/19 04:55 Blood Blood Culture - Preliminary NO GROWTH AFTER 24 HOURS Resulted 09/01/19 19:15 Stool Clostridium difficile Toxin Assay - Final Complete 09/01/19 11:20 Urine,Clean Catch Urine Culture - Preliminary NO GROWTH Resulted Accucheck: 114 Critical Care - Subjective ROS Limited/Unobtainable: No FI02: 32 Vent Support Breath Rate: 14 Vent Support Mode: BiLevel Vent Tidal Volume: 400 Sputum Amount: Small PEEP: 5.0 PIP: 22 Tube Feeding Amount: 55 I&O: Intake and Output 09/01/19 09/02/19 19:00 07:00 Intake Total 515 ml 775 ml Output Total 770 ml 800 ml Balance -255 ml -25 ml IV Total 55 ml Tube Feeding 275 ml 660 ml Other 240 ml 60 ml Output Urine Total 770 ml 800 ml # Bowel Movements 1 4 ET-Tube: 7.5 ET Position: 23 Perfecto Youngblood MD Sep 02, 2019 23:16
[2019-09-03] VITALS (23 sets, daily range): BP systolic 91–124; BP diastolic 54–76
--- NOTE | 2019-09-03 01:00 | NUR ---
NURSE NOTES: Patient on BIPAP fi02 35% satting 100%. with large lose BM, kept clean and dry. contact isolation maintained and observed. call light within reach. will continue to monitor patient.
--- NOTE | 2019-09-03 03:00 | NUR ---
NURSE NOTES: Bed bath given tolerated well. currently on BIPAP fi02 35% satting 100%. with large lose BM, kept clean and dry. contact isolation maintained and observed. call light within reach. will continue to monitor patient.
[2019-09-03] MEDS: Acetylcysteine 20% Soln 4ml HHN SCH ×6 (03:19→23:22)
[2019-09-03] MEDS: Albuterol/Ipratropium 3ml neb HHN SCH ×6 (03:19→23:22)
--- NOTE | 2019-09-03 05:10 | NUR ---
RESPIRATORY NOTE: PT REMAINED STABLE ON BIPAP WITH CURRENT ORDERS. TX GIVEN WITH NO ADVERSE REACTION. NO S/S OF RESPIRATORY DISTRESS NOTED AT THIS TIME. BIPAP REMOVED AND PT WAS PLACED ON 3LPM NASAL CANNULA. ALL VS WNL.
--- NOTE | 2019-09-03 05:11 | NUR ---
NURSE NOTES: Patient in bed awake, watching TV. on oxygen 3L via N/C satting 100%. HOB elevated. no s/s of acute distress noted. on P200 mattress for wound management. Contact isolation maintained and observed.call light within easy reach will continue plan of care.
[2019-09-03] MEDS: Meropenem 1 GM in NS 55 ML IVPB SCH ×3 (06:46→22:04)
[2019-09-03 06:57] LABS: BASOPHILS % (AUTO) 0.7 % (0.0-2.0); EOSINOPHILS % (AUTO) 2.8 % (0.0-3.0); HEMATOCRIT 34.4 % (37.0-47.0); LYMPHOCYTES % (AUTO) 18.3 % (20.0-45.0); MEAN CORPUSCULAR VOLUME 77 FL (80-99); MONOCYTES % (AUTO) 4.5 % (1.0-10.0); NEUTROPHILS % (AUTO) 73.7 % (45.0-75.0); PLATELET COUNT 399 K/UL (150-450); RED BLOOD COUNT 4.47 M/UL (4.20-5.40); RED CELL DISTRIBUTION WIDTH 21.1 % (11.6-14.8); WHITE BLOOD COUNT 11.1 K/UL (4.8-10.8)
--- NOTE | 2019-09-03 07:15 | NUR ---
HAND-OFF: Report given to Perfecto CARTER.
[2019-09-03 07:46] LABS: ANION GAP 7 mmol/L (5-15); BLOOD UREA NITROGEN 15 mg/dL (7-18); CALCIUM 9.4 MG/DL (8.5-10.1); CARBON DIOXIDE 32 MMOL/L (21-32); CHLORIDE 99 MMOL/L (98-107); CREATININE 0.3 MG/DL (0.55-1.30); POTASSIUM 3.8 MMOL/L (3.5-5.1); SODIUM 138 MMOL/L (136-145)
[2019-09-03] MEDS: Depakote 125mg Sprinkles NG SCH ×2 (08:41→21:38)
[2019-09-03] MEDS: Ciprofloxacin 500mg tab NG SCH ×2 (08:41→21:38)
[2019-09-03] MEDS: Eliquis 5mg tablet NGT SCH ×2 (08:41→17:59)
--- NOTE | 2019-09-03 08:45 | NUR ---
NURSE NOTES: breakfast eaten with assistance, no problems noted after each swallow, food is cleared with a hard swallow, continued to eat until approximately 85%. patient remains able to formulate simple one worded answers, she is clear with no delay, she is able to move upper arms and draw on coloring book placed on bedside table. morning medication taken with meal.
--- NOTE | 2019-09-03 09:56 | General Progress Note ---
Assessment/Plan Problem List: (1) Spina bifida ICD Codes: Q05.9 - Spina bifida, unspecified SNOMED: 60578170 Qualifiers: Qualified Codes: Q05.4 - Unspecified spina bifida with hydrocephalus (2) Respiratory failure with hypoxia ICD Codes: J96.91 - Respiratory failure, unspecified with hypoxia SNOMED: 38712649708927047 Qualifiers: Qualified Codes: J96.21 - Acute and chronic respiratory failure with hypoxia (3) Dysphagia ICD Codes: R13.10 - Dysphagia, unspecified SNOMED: 03849004, 275018646 (4) UTI (urinary tract infection) ICD Codes: N39.0 - Urinary tract infection, site not specified SNOMED: 08439790, 258974297 Qualifiers: Qualified Codes: N30.00 - Acute cystitis without hematuria (5) Paraplegia ICD Codes: G82.20 - Paraplegia, unspecified SNOMED: 36872815 (6) Anemia ICD Codes: D64.9 - Anemia, unspecified SNOMED: 373001593 Status: unchanged Assessment/Plan: ppi repeat labs fu H&H stool ob neg x1 reglan passed swallow eval push po abx per ID fu pulm recs CT reviewed will fu Subjective ROS Limited/Unobtainable: Yes Allergies: Coded Allergies: LATEX (Verified Allergy, Severe, Rash on skin, 08/19/19) PENICILLIN G (Verified Allergy, Unknown, 12/02/18) Tolerates cabapenem, cephalosporin PENICILLINS (Unverified Allergy, Unknown, 12/02/18) Objective Last 24 Hour Vital Signs Date Time Temp Pulse Resp B/P (MAP) Pulse Ox O2 Delivery O2 Flow Rate FiO2 09/03/19 07:37 72 20 100 Nasal Cannula 3.0 32 75 22 96 09/03/19 07:33 100 Nasal Cannula 3.0 32 09/03/19 06:00 75 18 105/66 (79) 98 09/03/19 05:10 75 22 98 Facial 35 09/03/19 05:00 76 18 109/66 (80) 100 09/03/19 04:00 97.8 75 19 110/72 (85) 100 09/03/19 04:00 95 09/03/19 04:00 Bi-pap Bi-pap 09/03/19 04:00 35 09/03/19 03:14 76 15 98 Facial 35 79 20 99 Bi-Pap 09/03/19 03:14 Bi-Pap 09/03/19 03:00 80 18 103/60 (74) 96 09/03/19 02:00 88 16 111/70 (84) 99 09/03/19 01:05 81 24 99 Facial 35 09/03/19 01:00 83 21 91/55 (67) 95 09/03/19 00:00 Bi-pap Bi-pap 09/03/19 00:00 35 09/03/19 00:00 91 18 105/65 (78) 95 09/03/19 00:00 95 09/02/19 23:08 85 23 96 Facial 35 85 21 99 Bi-Pap 09/02/19 23:08 Bi-Pap 09/02/19 23:00 86 17 109/71 (84) 96 09/02/19 22:00 90 20 116/76 (89) 96 09/02/19 21:00 95 19 113/71 (85) 96 09/02/19 20:00 99.5 92 19 121/82 (95) 97 09/02/19 20:00 Nasal Cannula 3.0 Nasal Cannula 3.0 Nasal Cannula 3.0 09/02/19 20:00 3.0 09/02/19 20:00 95 09/02/19 19:59 96 Nasal Cannula 3.0 32 09/02/19 19:59 93 18 98 Nasal Cannula 3.0 32 92 20 96 09/02/19 19:00 97 21 108/73 (85) 96 09/02/19 18:00 92 20 124/70 (88) 97 09/02/19 17:00 86 19 122/88 (99) 95 09/02/19 16:00 3.0 09/02/19 16:00 98.8 09/02/19 16:00 Nasal Cannula 3.0 Nasal Cannula 3.0 Nasal Cannula 3.0 09/02/19 16:00 98.8 91 17 101/56 (71) 99 09/02/19 15:48 87 09/02/19 15:26 76 15 100 Nasal Cannula 3.0 32 83 15 97 09/02/19 15:00 83 16 108/65 (79) 96 09/02/19 14:00 91 18 99/63 (75) 94 09/02/19 13:00 87 13 94/54 (67) 97 09/02/19 12:00 3.0 09/02/19 12:00 88 09/02/19 12:00 98.0 84 16 100/63 (75) 100 09/02/19 12:00 Nasal Cannula 3.0 Nasal Cannula 3.0 Nasal Cannula 3.0 09/02/19 11:39 76 15 100 Nasal Cannula 3.0 32 81 12 98 09/02/19 11:00 78 15 106/62 (77) 100 09/02/19 10:00 84 15 95/50 (65) 98 09/02/19 10:00 76 13 107/60 (76) 99 Intake and Output 09/02/19 09/03/19 19:00 07:00 Intake Total 1310.000 ml 440.000 ml Output Total 935 ml 690 ml Balance 375.000 ml -250.000 ml Intake Oral 120 ml Free Water 100 ml IV Total 330.000 ml 330.000 ml Tube Feeding 660 ml 110 ml Other 100 ml Output Urine Total 935 ml 690 ml # Bowel Movements 1 2 Laboratory Tests 09/03/19 05:29: White Blood Count 11.1H, Red Blood Count 4.47, Hemoglobin 11.0L, Hematocrit 34.4L, Mean Corpuscular Volume 77L, Mean Corpuscular Hemoglobin 24.7L, Mean Corpuscular Hemoglobin Concent 32.1, Red Cell Distribution Width 21.1H, Platelet Count 399, Mean Platelet Volume 5.5L, Neutrophils (%) (Auto) 73.7, Lymphocytes (%) (Auto) 18.3L, Monocytes (%) (Auto) 4.5, Eosinophils (%) (Auto) 2.8, Basophils (%) (Auto) 0.7, Sodium Level 138, Potassium Level 3.8, Chloride Level 99, Carbon Dioxide Level 32, Anion Gap 7, Blood Urea Nitrogen 15, Creatinine 0.3L, Estimat Glomerular Filtration Rate > 60, Glucose Level 110H, Calcium Level 9.4 09/03/19 08:55: Vancomycin Level Trough 22.6H Height (Feet): 4 Height (Inches): 10.00 Weight (Pounds): 120 General Appearance: alert EENT: normal ENT inspection Neck: supple Cardiovascular: normal peripheral pulses Respiratory/Chest: decreased breath sounds Abdomen: non tender, soft, hypoactive bowel sounds Extremities: non-tender Tim Davis MD Sep 03, 2019 09:56
--- NOTE | 2019-09-03 10:10 | NUR ---
NURSE NOTES: Awaiting for vancomycin trough to result for medication to be given. patient remains calm and responsive to name. remains on nasal cannula at 3L/min with saturations at 93-98%. patient remains able to cough up secretions and clear with direction.
--- NOTE | 2019-09-03 12:04 | Internal Med Progress Note ---
Subjective Date of Service: Sep 03, 2019 Physician Name Niraj Teixeira Attending Physician Wil Masters MD Current Medications Medications (Trade) Dose Ordered Sig/Sandeep Route PRN Reason Start Time Stop Time Status Last Admin Dose Admin Acetaminophen (Tylenol) 650 mg Q4H PRN NG Mild Pain/Temp > 100.5 08/22/19 10:30 09/21/19 10:29 08/30/19 20:18 Acetylcysteine (Mucomyst) 400 mg Q4HRT N 08/16/19 11:00 09/15/19 10:59 09/03/19 11:31 Albuterol/ Ipratropium (Albuterol/ Ipratropium) 3 ml Q4HRT HHN 09/01/19 23:00 09/06/19 22:59 09/03/19 11:31 Apixaban (Eliquis) 5 mg BID NGT 08/16/19 09:00 09/11/19 17:59 09/03/19 08:41 Ciprofloxacin (Cipro 500mg tab) 500 mg EVERY 12 HOURS NG 08/25/19 21:00 09/08/19 20:59 09/03/19 08:41 Divalproex Sodium (Depakote Sprinkles) 500 mg Q12HR NG 08/15/19 21:00 09/14/19 20:59 09/03/19 08:41 Meropenem 1 gm/ Sodium Chloride 55 ml @ 110 mls/hr Q8HR IVPB 08/23/19 14:00 09/06/19 23:59 09/03/19 06:46 Polyethylene Glycol (Miralax) 17 gm BEDTIME ORAL 08/20/19 21:00 09/19/19 20:59 08/31/19 20:52 Vancomycin HCl (Vanco rx to dose) 1 ea DAILY PRN MISC Per rx protocol 08/23/19 09:45 09/22/19 09:44 Vancomycin HCl 750 mg/Sodium Chloride 275 ml @ 183.333 mls/hr Q12HR@1100,2300 IVPB 09/03/19 11:00 09/08/19 10:59 Allergies: Coded Allergies: LATEX (Verified Allergy, Severe, Rash on skin, 08/19/19) PENICILLIN G (Verified Allergy, Unknown, 12/02/18) Tolerates cabapenem, cephalosporin PENICILLINS (Unverified Allergy, Unknown, 12/02/18) ROS Limited/Unobtainable: Yes Subjective 49 YO F with pneumonia and respiratory failure. Extubated 08/11/19. Cover for Int Conor-DR Masters. ICU. Objective Last Vital Signs Date Time Temp Pulse Resp B/P (MAP) Pulse Ox O2 Delivery O2 Flow Rate FiO2 09/03/19 11:29 90 15 100 Nasal Cannula 3.0 32 88 16 99 09/03/19 11:00 98/61 (73) 09/03/19 08:00 98.5 Laboratory Tests Test 09/03/19 05:29 09/03/19 08:55 White Blood Count 11.1 K/UL (4.8-10.8) H Red Blood Count 4.47 M/UL (4.20-5.40) Hemoglobin 11.0 G/DL (12.0-16.0) L Hematocrit 34.4 % (37.0-47.0) L Mean Corpuscular Volume 77 FL (80-99) L Mean Corpuscular Hemoglobin 24.7 PG (27.0-31.0) L Mean Corpuscular Hemoglobin Concent 32.1 G/DL (32.0-36.0) Red Cell Distribution Width 21.1 % (11.6-14.8) H Platelet Count 399 K/UL (150-450) Mean Platelet Volume 5.5 FL (6.5-10.1) L Neutrophils (%) (Auto) 73.7 % (45.0-75.0) Lymphocytes (%) (Auto) 18.3 % (20.0-45.0) L Monocytes (%) (Auto) 4.5 % (1.0-10.0) Eosinophils (%) (Auto) 2.8 % (0.0-3.0) Basophils (%) (Auto) 0.7 % (0.0-2.0) Sodium Level 138 MMOL/L (136-145) Potassium Level 3.8 MMOL/L (3.5-5.1) Chloride Level 99 MMOL/L (98-107) Carbon Dioxide Level 32 MMOL/L (21-32) Anion Gap 7 mmol/L (5-15) Blood Urea Nitrogen 15 mg/dL (7-18) Creatinine 0.3 MG/DL (0.55-1.30) L Estimat Glomerular Filtration Rate > 60 mL/min (>60) Glucose Level 110 MG/DL (74-106) H Calcium Level 9.4 MG/DL (8.5-10.1) Vancomycin Level Trough 22.6 ug/mL (5.0-12.0) H Microbiology Date/Time Source Procedure Growth Status 09/01/19 19:15 Stool Clostridium difficile Toxin Assay - Final Complete 09/01/19 11:20 Urine,Clean Catch Urine Culture - Preliminary YEAST Resulted Intake and Output 09/02/19 09/03/19 19:00 07:00 Intake Total 1310.000 ml 440.000 ml Output Total 935 ml 730 ml Balance 375.000 ml -290.000 ml Intake Oral 120 ml Free Water 100 ml IV Total 330.000 ml 330.000 ml Tube Feeding 660 ml 110 ml Other 100 ml Output Urine Total 935 ml 730 ml # Bowel Movements 1 2 Objective General Appearance: WD/WN, moderate distress EENT: PERRL/EOMI, normal ENT inspection Neck: non-tender, normal alignment, supple Cardiovascular: normal peripheral pulses, normal rate, regular rhythm, no gallop/murmur, no JVD Respiratory/Chest: Nasal canula; crackles/rales, rhonchi - bilaterally, expiratory wheezing Abdomen: normal bowel sounds, non tender, soft, no organomegaly, no mass Skin: normal pigmentation, warm/dry Assessment/Plan Problem List: (1) Respiratory failure with hypoxia Assessment & Plan: Tolerating venturi mask. S/P extubation 08/11/19 per pulmonary=Dr Bonilla (2) Pneumonia of both lower lobes Assessment & Plan: See ID note. Continue meropenem and vanco. (3) UTI (urinary tract infection) Assessment & Plan: Pseudamonas, ESBL E. Coli, and vanco resistant enterococcus. See ID note; Dr Sanabria signed off. Await new ID consult= Dr Buck/Milly. S/P meropenem, linezolid and micafugin (4) Sepsis (5) Paraplegia (6) Spina bifida Assessment/Plan Discharge plan: [facility] Niraj Teixeira MD Sep 03, 2019 12:04
[2019-09-03] MEDS: Vancomycin 750mg/NS 275ml IVPB SCH ×4 (12:05→23:01)
--- NOTE | 2019-09-03 12:45 | NUR ---
NURSE NOTES: Lunch given to patient at the bedside, no problems when swallowing noted or episodes of SOB noted, she remained saturating at 93-98% with no distress, remains on nasal cannula at 3L/min.
--- NOTE | 2019-09-03 13:24 | NUR ---
ST NOTES: SWALLOW STATUS: THE PATIENT NO LONGER HAS HER NGT SINCE INTAKE IS GOOD NOW. SHE IS ON 3 LITERS 02 NC AND BIPAP AT NIGHT. PATIENT'S GOALS MET FOR INTAKE PER RN AND RD (100%) WITH PUREED AND NECTAR THICK LIQUIDS TSP AT A TIME. PATIENT SHOULD NOT HAVE SIP VIA CUP NOR STRAW FOR NOW SINCE SHE TAKES LARGE SIPS AND HAS A HIGHER ASPIRATION RISK. HER FAMILY AND MANGLE ROLL OPERATOR AT [facility] CAN TRY TO GET HER A CUP (PROVALE CUP) OR STRAW THAT DELIVERS TSP AMOUNTS OF LIQUIDS. PATIENT DOES NOT NEED NECTAR THICK WATER AND SHE CAN HAVE FREE WATER TSP AT A TIME. GIVEN PO TRIALS OF NECTAR THICK LIQUID VIA TSP, THE PATIENT ABLE TO SWALLOW X2 (PER TSP) WITH MOD VERBAL CUES. NO OVERT ASPIRATION. EDUCATED/TRAINED NEW STAFF (JOSHUA CARTER) IN POSTED ASPIRATION PRECAUTIONS. PLAN: CONTINUE WITH PLAN OF CARE LEFT INFORMATION ON PROVALE CUP AND STRAWS IN ROOM FOR FAMILY
[2019-09-03] MEDS ORDERED: NS 275ml ONE (13:48)
[2019-09-03] MEDS ORDERED: Tubing IV Secondary IV ONE (13:48)
--- NOTE | 2019-09-03 14:39 | NUR ---
RD ASSESSMENT & RECOMMENDATIONS SEE CARE ACTIVITY FOR COMPLETE ASSESSMENT DAILY ESTIMATED NEEDS: Needs based on wound, Pulmonary/ 47.6kg abw 25-30 kcals/kg 4277-1251 total kcals 1.25-2 g protein/kg 60-95 g total protein 25-30 mL/kg 2952-4000 total fluid mLs NUTRITION DIAGNOSIS: * Increased kcal/pro needs r/t wound healing as evidenced by h/o spina bifida, adm w/ full thickness wound @ sacrum-> resolving, and red and excoriated R-ischium. (UPDATED) * Swallowing difficulty R/T respiratory status as evidenced by re-intubated, now extubated, on and off Bipap, NGT feeds DC'd, pt cleared for puree texture diet w/ NTL. CURRENT DIET: Regular puree w/ NTL Glucerna TID PO DIET RECOMMENDATIONS: WHEN SAFE FOR ORAL DIET-> REGULAR, texture per MAMMOGRAPHY TECHNOLOGIST ADDITIONAL RECOMMENDATIONS: 1) Wound care: add GREGG in 6-8oz H2O BID Add MVI x 1, VIT C 500mg daily 2) Maintain calibrated bed scale wts 3) NISS for BG control on TF - h/o DM 4) Monitor lytes daily, replete as needed. . 6) W/ ORAL DIET ADD GLUCERNA TID
--- NOTE | 2019-09-03 16:42 | Infectious Diseases Prog Note ---
Assessment/Plan Assessment/Plan Assessment: Sepsis Persistent Gram positive bacteremia- suspect PICC line infection- persist despite removal picc line- r/o endocarditis -08/30, Bcx NTD 2d echo: no vegetations noted -08/27 PICC line removed; cath tip cx Neg Bcx 1/4 S. epi -08/22 Bcx 2/4 S.epi; 2/3 bcx Picc NTD, peripheral CONS Recurrent aspiration pneumonia -08/25 CXR:Suspicion of slightly worsening CHF -08/22 cXR: Possible mild pulmonary vascular congestion. No change from the prior study -08/21 sp cx S. aureus, MDR PsA (S Amikacin, Cipro/levo; R Cefepime, Meropenem) -08/18 cXR: The lungs remain clear. There may be some minimal basal atelectasis -08/14 CXR: Cardiomegaly. Mild interstitial congestion, unchanged over 3 days -07/31, 08/01 sp cx normal resp sunny -07/12 sp cx normal -07/12 SP FLEXIBLE FIBEROPTIC BRONCHOSCOPY WITH BRONCHOALVEOLAR LAVAGE AND THERAPEUTIC ASPIRATION OF MUCOUS PLUG LEFT LUNG -07/11/20 CXR: Bilateral pulmonary edema/infiltrates. Possible small pleural effusions. Fever, recurrent- resolved Leukocytosis, recurrent; increased, now improving -09/[address] c/abd/p w/: Basilar pulmonary atelectasis and possibly patchy consolidation in the bilateral posterior lower lobes. Borderline cardiomegaly. Moderate right hydronephrosis and enlargement of the right kidney, despite apparent satisfactory position of a right nephroureteral stent. Possibility of stent dysfunction should be considered. Atrophic left kidney. Left nephroureteral stent in place, no hydronephrosis. Bilateral renal calyceal and parenchymal calcifications, also previously reported. Extensive chronic skeletal deformity, with evidence of spinal dysraphism, scoliosis, evidence of prior spinal fusion, and other abnormalities detailed above. Unusual round structure superior to the upper pole left kidney posterior to the spleen, also described previously and unchanged, possibly an area of fatty infarction, unusual adrenal lesion, or an unusual accessory splenule. This is also stable since 2017. There is extensive pelvic deformity. There is marked abnormal soft tissue surrounding the rectum. There is a tract extending posteriorly from the distal rectum. Uncertain as whether this represents an otherwise normal but unusually positioned anus versus a fistula tract. Correlate with clinical findings. Extensive chronic appearing pelvic decubitus changes, with evidence of chronicosseous destruction of the sacrum and coccyx, appearing unchanged from prior study 08/23/2018. Discontinuous ventriculoperitoneal shunt tubing is again demonstrated. 2.2 cm calcified right lower pole thyroid nodule. Consider thyroid sonography for further evaluation Minimal anterior wall pericardial thickening versus fluid. Recurrent hypoxic respiratory failure 2ry to above -sp intubation 07/31/19 and extubation 08/11/19 -s/p intubation 07/12/19 and extubation 07/19/19 UTI , recurrent R hydronephrosis -09/01 u/A wbc 10-15, nit neg, leuk +2; Ucx 40-50k yeast -08/21 u/a wbc tnct, nit neg, leuk large; ucx >100k PsA (I Cefepime, Levaquin ; S Imipenem, Cipro) -08/11 ucx C. parapsilosis (colinzer) - 07/12 Ucx PsA (R Ceftazidime, levaquin; I Ciprofloxacin; otherwise S), VRE ( S Amp, linezolid) -07/11/19 u/a wbc tntc, nit neg, leuk +3; ucx PsA, ESBL E.coli, P. mirabilis S. mitis bacteremia- likely contaminant -07/28 Bcx 07/26 S. mitis; 07/29, 08/01, 08/03 Bcx neg HTN Dm2 spina bifida s/p MATERIALS PLANNING ANALYST shunt decubiti ulcers wheelchair bound/paraplegic b/l renal stents neurogenic bladder s/p suprapubic catheter recurrent UTIs Plan: -Continue Meropenem #06/05 and PO Cipro #9 (abx d #05/05) -Continue IV Vancomycin #06/05 for S. aureus PNA and CONS bacteremia -2/3 SP Amikacin #4 -2/ SP Cefepime and Flagyl #3 -08/11 SP Linezolid and Meropenem #15 -08/06 SP Micafungin #4 -f/u cx -Monitor CBC/CMP, temperatures -aspiration precautions -GI, pulm f/u -speech therapy recommending PEG, family is refusing -f/u Bcx x2 (peripheral and pICC line), ucx -May need ADINA if recurrent bacteremia -URo eval Thank you for this consultation. Will continue to follow along with you. Discussed with RN Subjective Allergies: Coded Allergies: LATEX (Verified Allergy, Severe, Rash on skin, 08/19/19) PENICILLIN G (Verified Allergy, Unknown, 12/02/18) Tolerates cabapenem, cephalosporin PENICILLINS (Unverified Allergy, Unknown, 12/02/18) Subjective afebrile in >72hrs wbc improving repeat Bcx NTD Objective Vital Signs Last 24 Hour Vital Signs Date Time Temp Pulse Resp B/P (MAP) Pulse Ox O2 Delivery O2 Flow Rate FiO2 09/03/19 16:00 97.8 102 21 96/54 (68) 95 09/03/19 15:00 91 19 99 Nasal Cannula 3.0 32 93 20 97 09/03/19 15:00 99 21 103/76 (85) 94 09/03/19 14:00 98 21 102/67 (79) 97 09/03/19 13:00 94 25 95/68 (77) 94 09/03/19 12:00 97 09/03/19 12:00 Nasal Cannula 3.0 Nasal Cannula 3.0 09/03/19 12:00 97.6 96 16 96/61 (73) 94 09/03/19 12:00 3.0 09/03/19 11:29 90 15 100 Nasal Cannula 3.0 32 88 16 99 09/03/19 11:00 85 12 98/61 (73) 94 09/03/19 10:00 85 14 94/60 (71) 100 09/03/19 09:00 91 16 110/74 (86) 99 09/03/19 08:00 98.5 88 17 102/65 (77) 94 09/03/19 08:00 88 09/03/19 08:00 3.0 09/03/19 08:00 Nasal Cannula 3.0 Nasal Cannula 3.0 09/03/19 07:37 72 20 100 Nasal Cannula 3.0 32 75 22 96 09/03/19 07:33 100 Nasal Cannula 3.0 32 09/03/19 07:00 77 17 101/61 (74) 99 09/03/19 06:00 75 18 105/66 (79) 98 09/03/19 05:10 75 22 98 Facial 35 09/03/19 05:00 76 18 109/66 (80) 100 09/03/19 04:00 97.8 75 19 110/72 (85) 100 09/03/19 04:00 95 09/03/19 04:00 Bi-pap Bi-pap 09/03/19 04:00 35 09/03/19 03:14 76 15 98 Facial 35 79 20 99 Bi-Pap 09/03/19 03:14 Bi-Pap 09/03/19 03:00 80 18 103/60 (74) 96 09/03/19 02:00 88 16 111/70 (84) 99 09/03/19 01:05 81 24 99 Facial 35 09/03/19 01:00 83 21 91/55 (67) 95 09/03/19 00:00 Bi-pap Bi-pap 09/03/19 00:00 35 09/03/19 00:00 91 18 105/65 (78) 95 09/03/19 00:00 95 09/02/19 23:08 85 23 96 Facial 35 85 21 99 Bi-Pap 09/02/19 23:08 Bi-Pap 09/02/19 23:00 86 17 109/71 (84) 96 09/02/19 22:00 90 20 116/76 (89) 96 09/02/19 21:00 95 19 113/71 (85) 96 09/02/19 20:00 99.5 92 19 121/82 (95) 97 09/02/19 20:00 Nasal Cannula 3.0 Nasal Cannula 3.0 Nasal Cannula 3.0 09/02/19 20:00 3.0 09/02/19 20:00 95 09/02/19 19:59 96 Nasal Cannula 3.0 32 09/02/19 19:59 93 18 98 Nasal Cannula 3.0 32 92 20 96 09/02/19 19:00 97 21 108/73 (85) 96 09/02/19 18:00 92 20 124/70 (88) 97 09/02/19 17:00 86 19 122/88 (99) 95 Height (Feet): 4 Height (Inches): 10.00 Weight (Pounds): 120 Objective General Appearance: not in distress EENT: normal ENT inspection Neck: supple Cardiovascular: normal rate Respiratory/Chest: decreased breath sounds Abdomen: normal bowel sounds, non tender, soft Extremities: non-tender Microbiology Date/Time Source Procedure Growth Status 09/01/19 19:15 Stool Clostridium difficile Toxin Assay - Final Complete 09/01/19 11:20 Urine,Clean Catch Urine Culture - Preliminary YEAST Resulted Laboratory Tests Test 09/03/19 05:29 09/03/19 08:55 White Blood Count 11.1 K/UL (4.8-10.8) H Red Blood Count 4.47 M/UL (4.20-5.40) Hemoglobin 11.0 G/DL (12.0-16.0) L Hematocrit 34.4 % (37.0-47.0) L Mean Corpuscular Volume 77 FL (80-99) L Mean Corpuscular Hemoglobin 24.7 PG (27.0-31.0) L Mean Corpuscular Hemoglobin Concent 32.1 G/DL (32.0-36.0) Red Cell Distribution Width 21.1 % (11.6-14.8) H Platelet Count 399 K/UL (150-450) Mean Platelet Volume 5.5 FL (6.5-10.1) L Neutrophils (%) (Auto) 73.7 % (45.0-75.0) Lymphocytes (%) (Auto) 18.3 % (20.0-45.0) L Monocytes (%) (Auto) 4.5 % (1.0-10.0) Eosinophils (%) (Auto) 2.8 % (0.0-3.0) Basophils (%) (Auto) 0.7 % (0.0-2.0) Sodium Level 138 MMOL/L (136-145) Potassium Level 3.8 MMOL/L (3.5-5.1) Chloride Level 99 MMOL/L (98-107) Carbon Dioxide Level 32 MMOL/L (21-32) Anion Gap 7 mmol/L (5-15) Blood Urea Nitrogen 15 mg/dL (7-18) Creatinine 0.3 MG/DL (0.55-1.30) L Estimat Glomerular Filtration Rate > 60 mL/min (>60) Glucose Level 110 MG/DL (74-106) H Calcium Level 9.4 MG/DL (8.5-10.1) Vancomycin Level Trough 22.6 ug/mL (5.0-12.0) H Current Medications Medications (Trade) Dose Ordered Sig/Sandeep Route PRN Reason Start Time Stop Time Status Last Admin Dose Admin Acetaminophen (Tylenol) 650 mg Q4H PRN NG Mild Pain/Temp > 100.5 08/22/19 10:30 09/21/19 10:29 08/30/19 20:18 Acetylcysteine (Mucomyst) 400 mg Q4HRT N 08/16/19 11:00 09/15/19 10:59 09/03/19 15:03 Albuterol/ Ipratropium (Albuterol/ Ipratropium) 3 ml Q4HRT N 09/01/19 23:00 09/06/19 22:59 09/03/19 15:03 Apixaban (Eliquis) 5 mg BID NGT 08/16/19 09:00 09/11/19 17:59 09/03/19 08:41 Ciprofloxacin (Cipro 500mg tab) 500 mg EVERY 12 HOURS NG 08/25/19 21:00 09/08/19 20:59 09/03/19 08:41 Divalproex Sodium (Depakote Sprinkles) 500 mg Q12HR NG 08/15/19 21:00 09/14/19 20:59 09/03/19 08:41 Meropenem 1 gm/ Sodium Chloride 55 ml @ 110 mls/hr Q8HR IVPB 08/23/19 14:00 09/06/19 23:59 09/03/19 15:37 Polyethylene Glycol (Miralax) 17 gm BEDTIME ORAL 08/20/19 21:00 09/19/19 20:59 08/31/19 20:52 Vancomycin HCl (Vanco rx to dose) 1 ea DAILY PRN MISC Per rx protocol 08/23/19 09:45 09/22/19 09:44 Vancomycin HCl 750 mg/Sodium Chloride 275 ml @ 183.333 mls/hr Q12HR@1100,2300 IVPB 09/03/19 11:00 09/08/19 10:59 09/03/19 12:05 Joaquina Hill M.D. Sep 03, 2019 16:42
--- NOTE | 2019-09-03 19:15 | NUR ---
NURSE NOTES: Received report from EMMA Walsh. Pt awake,alert and verbally responsive. No distress noted. On 3L 02 via N/C saturating 100%. Fed and ate 100% of pureed nectar thick dinner. HOB elevated to 45 degrees so pt can color coloring book. SR on threat monitoring analyst. Suprapubic cath intact draining well of hazy christy urine. Left foot IV line intact. Call light w/in reach. Bed alarm engaged. Bed locked and in low position. Call light within reach. Coloring book and crayon on the table. will continue POC.
--- NOTE | 2019-09-03 19:32 | NUR ---
HAND-OFF: Report given to EMMA Walsh.
--- NOTE | 2019-09-03 19:42 | NUR ---
HAND-OFF: Report given to Glenn Singh RN.
[2019-09-03] MEDS: Miralax 17gm pkt ORAL SCH (21:37)
--- NOTE | 2019-09-03 22:00 | NUR ---
NURSE NOTES: Pt awake,alert and verbally responsive. No distress noted. On 3L 02 via N/C saturating 100%. HOB elevated to 45 degrees so pt can color coloring book. SR on engine monitor. Suprapubic cath intact draining well of hazy christy urine. Left foot IV line intact. Call light w/in reach. Bed alarm engaged. Bed locked and in low position. Will continue POC.
--- NOTE | 2019-09-03 22:50 | Psych Consult Progress Note ---
Psychiatry Progress Note Psychiatry Progress Note Medications Current Medications Medications (Trade) Dose Ordered Sig/Sandeep Route PRN Reason Start Time Stop Time Status Last Admin Dose Admin Acetaminophen (Tylenol) 650 mg Q4H PRN NG Mild Pain/Temp > 100.5 08/22/19 10:30 09/21/19 10:29 08/30/19 20:18 Acetylcysteine (Mucomyst) 400 mg Q4HRT N 08/16/19 11:00 09/15/19 10:59 09/03/19 18:56 Albuterol/ Ipratropium (Albuterol/ Ipratropium) 3 ml Q4HRT HHN 09/01/19 23:00 09/06/19 22:59 09/03/19 18:56 Apixaban (Eliquis) 5 mg BID NGT 08/16/19 09:00 09/11/19 17:59 09/03/19 17:59 Ciprofloxacin (Cipro 500mg tab) 500 mg EVERY 12 HOURS NG 08/25/19 21:00 09/08/19 20:59 09/03/19 21:38 Divalproex Sodium (Depakote Sprinkles) 500 mg Q12HR NG 08/15/19 21:00 09/14/19 20:59 09/03/19 21:38 Meropenem 1 gm/ Sodium Chloride 55 ml @ 110 mls/hr Q8HR IVPB 08/23/19 14:00 09/06/19 23:59 09/03/19 22:04 Polyethylene Glycol (Miralax) 17 gm BEDTIME ORAL 08/20/19 21:00 09/19/19 20:59 09/03/19 21:37 Vancomycin HCl (Vanco rx to dose) 1 ea DAILY PRN MISC Per rx protocol 08/23/19 09:45 09/22/19 09:44 Vancomycin HCl 750 mg/Sodium Chloride 275 ml @ 183.333 mls/hr Q12HR@1100,2300 IVPB 09/03/19 11:00 09/08/19 10:59 09/03/19 12:05 Allergies: Coded Allergies: LATEX (Verified Allergy, Severe, Rash on skin, 08/19/19) PENICILLIN G (Verified Allergy, Unknown, 12/02/18) Tolerates cabapenem, cephalosporin PENICILLINS (Unverified Allergy, Unknown, 12/02/18) Objective Data Height (Feet): 4 Height (Inches): 10.00 Weight (Pounds): 120 Assessment/Plan Status: unchanged Kobi Reyes MD Sep 03, 2019 22:50
[2019-09-04] VITALS (23 sets, daily range): BP systolic 87–125; BP diastolic 56–80
--- NOTE | 2019-09-04 | NUR ---
NURSE NOTES: Pt remain awake. Coloring coloring book. No distress noted. On 3L 02 via N/C saturating 98-100%. HOB elevated to 45 degrees so pt can color. SR on monitor worker. Suprapubic cath intact draining well of hazy christy urine. Left foot IV line intact. Call light w/in reach. Bed alarm engaged. Bed locked and in low position. Will continue POC.
--- NOTE | 2019-09-04 02:00 | NUR ---
NURSE NOTES: Pt asleep. Easily awakened. No distress noted. Bipap in place. HOB elevated about 30 degrees. SR on pneudraulic systems mechanic. Suprapubic cath intact draining well of hazy christy urine. Left foot IV line intact. Call light w/in reach. Bed alarm engaged. Bed locked and in low position. Will continue POC.
[2019-09-04] MEDS: Albuterol/Ipratropium 3ml neb HHN SCH ×6 (02:37→22:44)
[2019-09-04] MEDS: Acetylcysteine 20% Soln 4ml HHN SCH ×6 (02:37→22:44)
--- NOTE | 2019-09-04 04:00 | NUR ---
NURSE NOTES: Pt remain asleep. Easily awakened. In no apparent distress. Bipap in place. HOB elevated about 30 degrees. SR on public policy mediator. Suprapubic cath intact draining well. Left foot IV line intact. Call light w/in reach. Bed alarm engaged. Bed locked and in low position. Will continue POC.
[2019-09-04] MEDS: Meropenem 1 GM in NS 55 ML IVPB SCH ×3 (05:14→22:05)
[2019-09-04 06:32] LABS: BASOPHILS % (AUTO) 0.7 % (0.0-2.0); EOSINOPHILS % (AUTO) 1.7 % (0.0-3.0); HEMATOCRIT 32.8 % (37.0-47.0); HEMOGLOBIN 10.7 G/DL (12.0-16.0); LYMPHOCYTES % (AUTO) 16.7 % (20.0-45.0); MEAN CORPUSCULAR VOLUME 77 FL (80-99); MONOCYTES % (AUTO) 3.6 % (1.0-10.0); NEUTROPHILS % (AUTO) 77.2 % (45.0-75.0); PLATELET COUNT 365 K/UL (150-450); RED BLOOD COUNT 4.26 M/UL (4.20-5.40); RED CELL DISTRIBUTION WIDTH 20.8 % (11.6-14.8); WHITE BLOOD COUNT 12.3 K/UL (4.8-10.8)
[2019-09-04 07:04] LABS: ANION GAP 6 mmol/L (5-15); BLOOD UREA NITROGEN 9 mg/dL (7-18); CALCIUM 8.7 MG/DL (8.5-10.1); CARBON DIOXIDE 32 MMOL/L (21-32); CHLORIDE 103 MMOL/L (98-107); CREATININE 0.4 MG/DL (0.55-1.30); POTASSIUM 3.8 MMOL/L (3.5-5.1); SODIUM 140 MMOL/L (136-145)
--- NOTE | 2019-09-04 07:15 | NUR ---
HAND-OFF: Report given to Perfecto Diallo RN.
[2019-09-04] MEDS: Ciprofloxacin 500mg tab NG SCH ×2 (09:13→20:55)
[2019-09-04] MEDS: Depakote 125mg Sprinkles NG SCH ×2 (09:13→20:56)
[2019-09-04] MEDS: Eliquis 5mg tablet NGT SCH ×2 (09:13→18:05)
--- NOTE | 2019-09-04 09:15 | NUR ---
NURSE NOTES: Breakfast given to patient as directed by the swallow evaluation directions. patient eat 100% of the meal with no episodes of desaturating or respiratory distress. she remains awake and talkative with coherent simple one words answers.
--- NOTE | 2019-09-04 09:50 | General Progress Note ---
Assessment/Plan Problem List: (1) Spina bifida ICD Codes: Q05.9 - Spina bifida, unspecified SNOMED: 39804845 Qualifiers: Qualified Codes: Q05.4 - Unspecified spina bifida with hydrocephalus (2) Respiratory failure with hypoxia ICD Codes: J96.91 - Respiratory failure, unspecified with hypoxia SNOMED: 39879820520499811 Qualifiers: Qualified Codes: J96.21 - Acute and chronic respiratory failure with hypoxia (3) Dysphagia ICD Codes: R13.10 - Dysphagia, unspecified SNOMED: 88138412, 870114647 (4) UTI (urinary tract infection) ICD Codes: N39.0 - Urinary tract infection, site not specified SNOMED: 69861823, 723263732 Qualifiers: Qualified Codes: N30.00 - Acute cystitis without hematuria (5) Paraplegia ICD Codes: G82.20 - Paraplegia, unspecified SNOMED: 96348586 (6) Anemia ICD Codes: D64.9 - Anemia, unspecified SNOMED: 569936361 Status: unchanged Assessment/Plan: ppi repeat labs fu H&H stool ob neg x1 reglan passed swallow eval push po abx per ID fu pulm recs CT reviewed will fu Subjective ROS Limited/Unobtainable: No Allergies: Coded Allergies: LATEX (Verified Allergy, Severe, Rash on skin, 08/19/19) PENICILLIN G (Verified Allergy, Unknown, 12/02/18) Tolerates cabapenem, cephalosporin PENICILLINS (Unverified Allergy, Unknown, 12/02/18) Objective Last 24 Hour Vital Signs Date Time Temp Pulse Resp B/P (MAP) Pulse Ox O2 Delivery O2 Flow Rate FiO2 09/04/19 09:00 87 12 97/56 (70) 97 09/04/19 08:00 3.0 09/04/19 08:00 Nasal Cannula 3.0 Nasal Cannula 3.0 09/04/19 08:00 98.7 88 19 95/65 (75) 95 09/04/19 07:16 82 19 99 Nasal Cannula 3.0 32 81 16 99 09/04/19 07:14 99 Nasal Cannula 3.0 32 09/04/19 06:00 98.5 76 18 120/80 (93) 09/04/19 05:31 85 22 96 35 2/13/20 05:00 81 12 93/63 (73) 09/04/19 04:00 81 09/04/19 04:00 3.0 09/04/19 04:00 81 14 96/62 (73) 09/04/19 04:00 Nasal Cannula 3.0 Nasal Cannula 3.0 09/04/19 03:00 85 25 99/66 (77) 09/04/19 02:40 Bi-Pap 09/04/19 02:37 80 18 97 Bi-Pap 35 81 19 100 09/04/19 02:00 83 16 96/64 (75) 09/04/19 01:00 97.9 92 19 95/68 (77) 09/04/19 00:52 87 27 98 35 09/04/19 00:00 Nasal Cannula 3.0 Nasal Cannula 3.0 09/04/19 00:00 91 16 87/57 (67) 09/04/19 00:00 94 09/03/19 23:55 3.0 09/03/19 23:15 88 18 98 Bi-Pap 35 87 20 100 09/03/19 23:15 Bi-Pap 09/03/19 23:00 91 21 112/73 (86) 09/03/19 22:00 95 19 124/71 (88) 86 09/03/19 21:00 101 20 111/75 (87) 95 09/03/19 20:00 Nasal Cannula 3.0 Nasal Cannula 3.0 09/03/19 20:00 98.1 94 21 102/69 (80) 97 09/03/19 20:00 3.0 09/03/19 18:58 92 20 99 Nasal Cannula 3.0 32 91 21 98 09/03/19 18:58 98 Nasal Cannula 3.0 32 09/03/19 18:00 94 21 102/69 (80) 97 09/03/19 17:00 77 16 103/76 (85) 100 09/03/19 16:00 97.8 102 21 96/54 (68) 95 09/03/19 16:00 Nasal Cannula 3.0 Nasal Cannula 3.0 09/03/19 16:00 3.0 09/03/19 16:00 102 09/03/19 15:00 91 19 99 Nasal Cannula 3.0 32 93 20 97 09/03/19 15:00 99 21 103/76 (85) 94 09/03/19 14:00 98 21 102/67 (79) 97 09/03/19 13:00 94 25 95/68 (77) 94 09/03/19 12:00 97 09/03/19 12:00 Nasal Cannula 3.0 Nasal Cannula 3.0 09/03/19 12:00 97.6 96 16 96/61 (73) 94 09/03/19 12:00 3.0 09/03/19 11:29 90 15 100 Nasal Cannula 3.0 32 88 16 99 09/03/19 11:00 85 12 98/61 (73) 94 09/03/19 10:00 85 14 94/60 (71) 100 Intake and Output 09/03/19 09/04/19 19:00 07:00 Intake Total 960 ml 385.000 ml Output Total 695 ml 480 ml Balance 265 ml -95.000 ml Intake Oral 940 ml IV Total 385.000 ml Other 20 ml Output Urine Total 695 ml 480 ml Laboratory Tests 09/04/19 06:10: White Blood Count 12.3H, Red Blood Count 4.26, Hemoglobin 10.7L, Hematocrit 32.8L, Mean Corpuscular Volume 77L, Mean Corpuscular Hemoglobin 25.0L, Mean Corpuscular Hemoglobin Concent 32.4, Red Cell Distribution Width 20.8H, Platelet Count 365, Mean Platelet Volume 5.5L, Neutrophils (%) (Auto) 77.2H, Lymphocytes (%) (Auto) 16.7L, Monocytes (%) (Auto) 3.6, Eosinophils (%) (Auto) 1.7, Basophils (%) (Auto) 0.7, Sodium Level 140, Potassium Level 3.8, Chloride Level 103, Carbon Dioxide Level 32, Anion Gap 6, Blood Urea Nitrogen 9, Creatinine 0.4L, Estimat Glomerular Filtration Rate > 60, Glucose Level 96, Calcium Level 8.7 Height (Feet): 4 Height (Inches): 10.00 Weight (Pounds): 128 General Appearance: alert EENT: normal ENT inspection Neck: supple Cardiovascular: normal rate Respiratory/Chest: decreased breath sounds Abdomen: normal bowel sounds, non tender, soft Extremities: non-tender Tim Davis MD Sep 04, 2019 09:50
--- NOTE | 2019-09-04 10:05 | NUR ---
NURSE NOTES: Dr. Sultana updated on patient gi status, tolerating diet with no episodes of choking. no verbal orders given at this time.
--- NOTE | 2019-09-04 10:05 | Infectious Diseases Prog Note ---
Assessment/Plan Assessment/Plan Assessment: Sepsis Persistent Gram positive bacteremia- suspect PICC line infection- persist despite removal picc line- r/o endocarditis -08/30, Bcx NTD 2d echo: no vegetations noted -08/27 PICC line removed; cath tip cx Neg Bcx 1/4 S. epi -08/22 Bcx 2/4 S.epi; 2/3 bcx Picc NTD, peripheral CONS Recurrent aspiration pneumonia -08/25 CXR:Suspicion of slightly worsening CHF -08/22 cXR: Possible mild pulmonary vascular congestion. No change from the prior study -08/21 sp cx S. aureus, MDR PsA (S Amikacin, Cipro/levo; R Cefepime, Meropenem) -08/18 cXR: The lungs remain clear. There may be some minimal basal atelectasis -08/14 CXR: Cardiomegaly. Mild interstitial congestion, unchanged over 3 days -07/31, 08/01 sp cx normal resp sunny -07/12 sp cx normal -07/12 SP FLEXIBLE FIBEROPTIC BRONCHOSCOPY WITH BRONCHOALVEOLAR LAVAGE AND THERAPEUTIC ASPIRATION OF MUCOUS PLUG LEFT LUNG -07/11/20 CXR: Bilateral pulmonary edema/infiltrates. Possible small pleural effusions. Fever, recurrent- resolved Leukocytosis, recurrent; increased, now improving -09/[address] c/abd/p w/: Basilar pulmonary atelectasis and possibly patchy consolidation in the bilateral posterior lower lobes. Borderline cardiomegaly. Moderate right hydronephrosis and enlargement of the right kidney, despite apparent satisfactory position of a right nephroureteral stent. Possibility of stent dysfunction should be considered. Atrophic left kidney. Left nephroureteral stent in place, no hydronephrosis. Bilateral renal calyceal and parenchymal calcifications, also previously reported. Extensive chronic skeletal deformity, with evidence of spinal dysraphism, scoliosis, evidence of prior spinal fusion, and other abnormalities detailed above. Unusual round structure superior to the upper pole left kidney posterior to the spleen, also described previously and unchanged, possibly an area of fatty infarction, unusual adrenal lesion, or an unusual accessory splenule. This is also stable since 2017. There is extensive pelvic deformity. There is marked abnormal soft tissue surrounding the rectum. There is a tract extending posteriorly from the distal rectum. Uncertain as whether this represents an otherwise normal but unusually positioned anus versus a fistula tract. Correlate with clinical findings. Extensive chronic appearing pelvic decubitus changes, with evidence of chronicosseous destruction of the sacrum and coccyx, appearing unchanged from prior study 08/23/2018. Discontinuous ventriculoperitoneal shunt tubing is again demonstrated. 2.2 cm calcified right lower pole thyroid nodule. Consider thyroid sonography for further evaluation Minimal anterior wall pericardial thickening versus fluid. Recurrent hypoxic respiratory failure 2ry to above -sp intubation 07/31/19 and extubation 08/11/19 -s/p intubation 07/12/19 and extubation 07/19/19 UTI , recurrent R hydronephrosis -09/01 u/A wbc 10-15, nit neg, leuk +2; Ucx 40-50k yeast -08/21 u/a wbc tnct, nit neg, leuk large; ucx >100k PsA (I Cefepime, Levaquin ; S Imipenem, Cipro) -08/11 ucx C. parapsilosis (colinzer) - 07/12 Ucx PsA (R Ceftazidime, levaquin; I Ciprofloxacin; otherwise S), VRE ( S Amp, linezolid) -07/11/19 u/a wbc tntc, nit neg, leuk +3; ucx PsA, ESBL E.coli, P. mirabilis S. mitis bacteremia- likely contaminant -07/28 Bcx 07/26 S. mitis; 07/29, 08/01, 08/03 Bcx neg HTN Dm2 spina bifida s/p [employer] shunt decubiti ulcers wheelchair bound/paraplegic b/l renal stents neurogenic bladder s/p suprapubic catheter recurrent UTIs Plan: -Continue Meropenem #07/05 and PO Cipro #10 (abx d #06/05) -Continue IV Vancomycin #07/05 for S. aureus PNA and CONS bacteremia -2/3 SP Amikacin #4 -2/ SP Cefepime and Flagyl #3 -08/11 SP Linezolid and Meropenem #15 -08/06 SP Micafungin #4 -f/u cx -Monitor CBC/CMP, temperatures -aspiration precautions -GI, pulm f/u -speech therapy recommending PEG, family is refusing -f/u Bcx x2 (peripheral and pICC line), ucx -May need ADINA if recurrent bacteremia -URo eval Thank you for this consultation. Will continue to follow along with you. Discussed with RN Subjective Allergies: Coded Allergies: LATEX (Verified Allergy, Severe, Rash on skin, 08/19/19) PENICILLIN G (Verified Allergy, Unknown, 12/02/18) Tolerates cabapenem, cephalosporin PENICILLINS (Unverified Allergy, Unknown, 12/02/18) Subjective afebrile wbc overall improved repeat Bcx NTD Objective Vital Signs Last 24 Hour Vital Signs Date Time Temp Pulse Resp B/P (MAP) Pulse Ox O2 Delivery O2 Flow Rate FiO2 09/04/19 09:00 87 12 97/56 (70) 97 09/04/19 08:00 3.0 09/04/19 08:00 Nasal Cannula 3.0 Nasal Cannula 3.0 09/04/19 08:00 98.7 88 19 95/65 (75) 95 09/04/19 07:16 82 19 99 Nasal Cannula 3.0 32 81 16 99 09/04/19 07:14 99 Nasal Cannula 3.0 32 09/04/19 06:00 98.5 76 18 120/80 (93) 09/04/19 05:31 85 22 96 35 09/04/19 05:00 81 12 93/63 (73) 09/04/19 04:00 81 09/04/19 04:00 3.0 09/04/19 04:00 81 14 96/62 (73) 09/04/19 04:00 Nasal Cannula 3.0 Nasal Cannula 3.0 09/04/19 03:00 85 25 99/66 (77) 09/04/19 02:40 Bi-Pap 09/04/19 02:37 80 18 97 Bi-Pap 35 81 19 100 09/04/19 02:00 83 16 96/64 (75) 09/04/19 01:00 97.9 92 19 95/68 (77) 09/04/19 00:52 87 27 98 35 09/04/19 00:00 Nasal Cannula 3.0 Nasal Cannula 3.0 09/04/19 00:00 91 16 87/57 (67) 09/04/19 00:00 94 09/03/19 23:55 3.0 09/03/19 23:15 88 18 98 Bi-Pap 35 87 20 100 09/03/19 23:15 Bi-Pap 09/03/19 23:00 91 21 112/73 (86) 09/03/19 22:00 95 19 124/71 (88) 86 09/03/19 21:00 101 20 111/75 (87) 95 09/03/19 20:00 Nasal Cannula 3.0 Nasal Cannula 3.0 09/03/19 20:00 98.1 94 21 102/69 (80) 97 09/03/19 20:00 3.0 09/03/19 18:58 92 20 99 Nasal Cannula 3.0 32 91 21 98 09/03/19 18:58 98 Nasal Cannula 3.0 32 09/03/19 18:00 94 21 102/69 (80) 97 09/03/19 17:00 77 16 103/76 (85) 100 09/03/19 16:00 97.8 102 21 96/54 (68) 95 09/03/19 16:00 Nasal Cannula 3.0 Nasal Cannula 3.0 09/03/19 16:00 3.0 09/03/19 16:00 102 09/03/19 15:00 91 19 99 Nasal Cannula 3.0 32 93 20 97 09/03/19 15:00 99 21 103/76 (85) 94 09/03/19 14:00 98 21 102/67 (79) 97 09/03/19 13:00 94 25 95/68 (77) 94 09/03/19 12:00 97 09/03/19 12:00 Nasal Cannula 3.0 Nasal Cannula 3.0 09/03/19 12:00 97.6 96 16 96/61 (73) 94 09/03/19 12:00 3.0 09/03/19 11:29 90 15 100 Nasal Cannula 3.0 32 88 16 99 09/03/19 11:00 85 12 98/61 (73) 94 Height (Feet): 4 Height (Inches): 10.00 Weight (Pounds): 128 Objective General Appearance: not in distress EENT: normal ENT inspection Neck: supple Cardiovascular: normal rate Respiratory/Chest: decreased breath sounds Abdomen: normal bowel sounds, non tender, soft Extremities: non-tender Microbiology Date/Time Source Procedure Growth Status 09/01/19 19:15 Stool Clostridium difficile Toxin Assay - Final Complete 09/01/19 11:20 Urine,Clean Catch Urine Culture - Final [place] Parapsilosis Complete Laboratory Tests Test 09/04/19 06:10 White Blood Count 12.3 K/UL (4.8-10.8) H Red Blood Count 4.26 M/UL (4.20-5.40) Hemoglobin 10.7 G/DL (12.0-16.0) L Hematocrit 32.8 % (37.0-47.0) L Mean Corpuscular Volume 77 FL (80-99) L Mean Corpuscular Hemoglobin 25.0 PG (27.0-31.0) L Mean Corpuscular Hemoglobin Concent 32.4 G/DL (32.0-36.0) Red Cell Distribution Width 20.8 % (11.6-14.8) H Platelet Count 365 K/UL (150-450) Mean Platelet Volume 5.5 FL (6.5-10.1) L Neutrophils (%) (Auto) 77.2 % (45.0-75.0) H Lymphocytes (%) (Auto) 16.7 % (20.0-45.0) L Monocytes (%) (Auto) 3.6 % (1.0-10.0) Eosinophils (%) (Auto) 1.7 % (0.0-3.0) Basophils (%) (Auto) 0.7 % (0.0-2.0) Sodium Level 140 MMOL/L (136-145) Potassium Level 3.8 MMOL/L (3.5-5.1) Chloride Level 103 MMOL/L (98-107) Carbon Dioxide Level 32 MMOL/L (21-32) Anion Gap 6 mmol/L (5-15) Blood Urea Nitrogen 9 mg/dL (7-18) Creatinine 0.4 MG/DL (0.55-1.30) L Estimat Glomerular Filtration Rate > 60 mL/min (>60) Glucose Level 96 MG/DL (74-106) Calcium Level 8.7 MG/DL (8.5-10.1) Current Medications Medications (Trade) Dose Ordered Sig/Sandeep Route PRN Reason Start Time Stop Time Status Last Admin Dose Admin Acetaminophen (Tylenol) 650 mg Q4H PRN NG Mild Pain/Temp > 100.5 08/22/19 10:30 09/21/19 10:29 08/30/19 20:18 Acetylcysteine (Mucomyst) 400 mg Q4HRT HHN 08/16/19 11:00 09/15/19 10:59 09/04/19 07:22 Albuterol/ Ipratropium (Albuterol/ Ipratropium) 3 ml Q4HRT N 09/01/19 23:00 09/06/19 22:59 09/04/19 07:21 Apixaban (Eliquis) 5 mg BID NGT 08/16/19 09:00 09/11/19 17:59 09/04/19 09:13 Ciprofloxacin (Cipro 500mg tab) 500 mg EVERY 12 HOURS NG 08/25/19 21:00 09/08/19 20:59 09/04/19 09:13 Divalproex Sodium (Depakote Sprinkles) 500 mg Q12HR NG 08/15/19 21:00 09/14/19 20:59 09/04/19 09:13 Meropenem 1 gm/ Sodium Chloride 55 ml @ 110 mls/hr Q8HR IVPB 08/23/19 14:00 09/06/19 23:59 09/04/19 05:14 Polyethylene Glycol (Miralax) 17 gm BEDTIME ORAL 08/20/19 21:00 09/19/19 20:59 09/03/19 21:37 Vancomycin HCl (Vanco rx to dose) 1 ea DAILY PRN MISC Per rx protocol 08/23/19 09:45 09/22/19 09:44 Vancomycin HCl 750 mg/Sodium Chloride 275 ml @ 183.333 mls/hr Q12HR@1100,2300 IVPB 09/03/19 11:00 09/08/19 10:59 09/03/19 23:01 Joaquina Hill M.D. Sep 04, 2019 10:05
[2019-09-04] MEDS: Vancomycin 750mg/NS 275ml IVPB SCH ×4 (11:30→23:07)
--- NOTE | 2019-09-04 13:36 | Pulmonolgy Critical Care Note ---
Critical Care - Asmt/Plan Assessment/Plan: Pulmonary CCM Progress Note Assessment/Plan: (1) Pneumonia of both lower lobes Assessment & Plan: VDRF, intubated 07/12/19, S/P FOB 07/12/19; Reintubated ; extubated 08/11/19, currently NC O2, PRN BiPAP (2) Catheter-associated urinary tract infection Assessment & Plan: PsA and proteus - s/p treatment, persistent Gr positive bacteremia (3) Respiratory failure with hypoxia Assessment & Plan: Acute on chronic hypercapnic and hypoxemic RF 2/2 PNA Duplex neg, minimally elevated d-dimer, unlikely VTE and already on a NOAC (4) HCAP (healthcare-associated pneumonia) (5) Paraplegia (6) Sepsis (7) Suprapubic catheter (8) Restrictive lung disease due to kyphoscoliosis (9) Decubitus skin ulcer (10) Spina bifida (11) Anemia, acute (12) hx recurrent PE on eliquis Plan: * monitor closely * respiratory care * NGT for feeds * ABG prn * DW PMD - consider LTACweek * BiPAP qhs and prn * High risk for recurrent respiratory failure and reintubation and discussed with the patiet's family previously * If gets reintubated, will need trach placement * holding abx * Good pulmonary hygiene: duonebs and mucomyst q4 * She had recurrent PE as outpatient. 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 Discussed with: nurses, PMD Critical Care - Objective Vital Signs Noted Status: awake Lungs: CTA Heart: HS1, HS2, RRR Abdomen: soft, non-tender Extremities: mild edema Labs/Micro: noted Subjective: Less SOB, mainly on NC O2 still requiring frequent suctioning no fever no distress awake wears bipap at night and PRN Seen earlier Critical Care - Objective Last 24 Hour Vital Signs Date Time Temp Pulse Resp B/P (MAP) Pulse Ox O2 Delivery O2 Flow Rate FiO2 09/04/19 12:00 Nasal Cannula 3.0 Nasal Cannula 3.0 09/04/19 12:00 3.0 09/04/19 12:00 96 09/04/19 12:00 98.4 94 23 102/77 (85) 95 2/13/20 11:00 97 14 102/60 (74) 93 09/04/19 10:41 92 24 100 Nasal Cannula 3.0 32 91 18 97 09/04/19 10:00 87 16 101/69 (80) 99 09/04/19 09:00 87 12 97/56 (70) 97 09/04/19 08:00 3.0 09/04/19 08:00 Nasal Cannula 3.0 Nasal Cannula 3.0 09/04/19 08:00 98.7 88 19 95/65 (75) 95 09/04/19 08:00 87 09/04/19 07:16 82 19 99 Nasal Cannula 3.0 32 81 16 99 09/04/19 07:14 99 Nasal Cannula 3.0 32 09/04/19 06:00 98.5 76 18 120/80 (93) 09/04/19 05:31 85 22 96 35 09/04/19 05:00 81 12 93/63 (73) 09/04/19 04:00 81 09/04/19 04:00 3.0 09/04/19 04:00 81 14 96/62 (73) 09/04/19 04:00 Nasal Cannula 3.0 Nasal Cannula 3.0 09/04/19 03:00 85 25 99/66 (77) 09/04/19 02:40 Bi-Pap 09/04/19 02:37 80 18 97 Bi-Pap 35 81 19 100 09/04/19 02:00 83 16 96/64 (75) 09/04/19 01:00 97.9 92 19 95/68 (77) 09/04/19 00:52 87 27 98 35 09/04/19 00:00 Nasal Cannula 3.0 Nasal Cannula 3.0 09/04/19 00:00 91 16 87/57 (67) 09/04/19 00:00 94 09/03/19 23:55 3.0 09/03/19 23:15 88 18 98 Bi-Pap 35 87 20 100 09/03/19 23:15 Bi-Pap 09/03/19 23:00 91 21 112/73 (86) 09/03/19 22:00 95 19 124/71 (88) 86 09/03/19 21:00 101 20 111/75 (87) 95 09/03/19 20:00 Nasal Cannula 3.0 Nasal Cannula 3.0 09/03/19 20:00 98.1 94 21 102/69 (80) 97 09/03/19 20:00 3.0 09/03/19 18:58 92 20 99 Nasal Cannula 3.0 32 91 21 98 09/03/19 18:58 98 Nasal Cannula 3.0 32 09/03/19 18:00 94 21 102/69 (80) 97 09/03/19 17:00 77 16 103/76 (85) 100 09/03/19 16:00 97.8 102 21 96/54 (68) 95 09/03/19 16:00 Nasal Cannula 3.0 Nasal Cannula 3.0 09/03/19 16:00 3.0 09/03/19 16:00 102 09/03/19 15:00 91 19 99 Nasal Cannula 3.0 32 93 20 97 09/03/19 15:00 99 21 103/76 (85) 94 09/03/19 14:00 98 21 102/67 (79) 97 Micro: Microbiology Date/Time Source Procedure Growth Status 09/01/19 19:15 Stool Clostridium difficile Toxin Assay - Final Complete Accucheck: 114 Critical Care - Subjective ROS Limited/Unobtainable: No FI02: 32 Vent Support Breath Rate: 14 Vent Support Mode: BiLevel Vent Tidal Volume: 400 Sputum Amount: Moderate PEEP: 5.0 PIP: 22 I&O: Intake and Output 09/03/19 09/04/19 19:00 07:00 Intake Total 960 ml 385.000 ml Output Total 695 ml 480 ml Balance 265 ml -95.000 ml Intake Oral 940 ml IV Total 385.000 ml Other 20 ml Output Urine Total 695 ml 480 ml ET-Tube: 7.5 ET Position: 23 Perfecto Youngblood MD Sep 04, 2019 13:36
--- NOTE | 2019-09-04 13:42 | NUR ---
HAND-OFF: Report given to EMMA [place]. patient remains stable with RR of 18-22 and saturating at 95-98%. she is awake and responds to commands, repeats one words answers. tolerates diet eating 100% on breakfast,
--- NOTE | 2019-09-04 13:46 | NUR ---
NURSE NOTES: Received patient from Perfecto CARTER. Patient is awake, alert and oriented x2-x3. Sinus Rhythm on the Heart Monitor, HR 84. Receiving oxygen via nasal cannula at 2L/min. Suprapubic catheter is intact and draining. IV site is left foot 20g, patent and intact. Bed is locked, placed in lowest position, side rails up x3, bed alarm on, call light within reach, head of bed elevated. Will continue to monitor.
--- NOTE | 2019-09-04 15:30 | Consultation ---
DATE OF CONSULTATION: 09/04/2019 CONSULTING PHYSICIAN: Eyal Jurado M.D. REASON FOR CONSULTATION: Retained double-J stent, right hydronephrosis. HISTORY OF PRESENT ILLNESS: The patient is a 49-year-old female with severe lung dysfunction in the ICU. She had a CT scan that showed bilateral ureteral stents. No hydronephrosis and atrophic kidney on the left and mild hydronephrosis on the right. She also has a suprapubic tube in place. She has a history of bilateral renal infections and urinary retention. REVIEW OF SYMPTOMS: Cannot be obtained. ALLERGIES: To penicillin. PAST MEDICAL HISTORY: Spina bifida, paraplegia, suprapubic catheter. PHYSICAL EXAMINATION: VITAL SIGNS: Currently, blood pressure is 110/80, temperature is 99, pulse oximeter is 95%. ABDOMEN: Slightly distended, obese. Suprapubic catheter in place, functioning normally. LABORATORY DATA: Evaluated, however, latest white count is 12.3, which is down from 13.8, and her creatinine is 0.4. ASSESSMENT AND PLAN: The patient does have bilateral ureteral stents. She is not a surgical candidate at this point due to her conditions of the lungs and other multiple general issues. Her creatinine is stable and she does not have any signs of acute urinary tract episodes. I would recommend just to follow her and follow with the primary urologist for a planned ureteral stent exchange. No interventions at this point. Eyal Jurado M.D. DR: YUAN JOB#: [id number] CC:
--- NOTE | 2019-09-04 16:38 | NUR ---
CASE MANAGEMENT: REVIEW 09/04/2019 SI:Pneumonia of both lower lobes. Catheter-associated urinary tract infection. VS: T 98.4 HR 94 RR 23 B/P 102/77 SATS 95% ON 3L/NC LABS: WBC 12.3 CR 0.4 IS:CIPRO NG Q12H ELIQUIS NGT BID DEPAKOTE NG Q12H VANCO IV Q12H MEROPENEM IV Q8H ICU PLAN OF CARE: DC PLANNING
--- NOTE | 2019-09-04 17:02 | Diagnostic Imaging Report ---
Indications: Reason For Exam: DYSPHAGIA Technique: Patient ingested multiple substances under the supervision of speech pathology. Video fluoroscopic recording performed. Total fluoroscopy time: 248.8 seconds. Total dose area product 0.91545 mGycm2 Total number of images-11 Comparison: none Findings: Ingestion of thin liquid barium using cup and straw demonstrates laryngeal penetration. No jsoe aspiration. Ingestion of nectar thick liquid barium demonstrates penetration, no aspiration. Ingestion of honey thick liquid barium demonstrates trace penetration. No aspiration or penetration with pudding and masticated solid Impression: Positive for penetration of thin, honey thick, nectar thick liquid barium. Please refer to pathology report for more detailed analysis
--- NOTE | 2019-09-04 17:04 | NUR ---
DISCHARGE PLANNING: NOTE CLINICALS FAXED TO [facility]. AWAITING FAX CONFIRMATION
--- NOTE | 2019-09-04 17:05 | NUR ---
CASE MANAGEMENT: INITIAL REVIEW 49 YO F BIBA FROM HOME CC: DYSPNEA 88% ON RA PMHx: DM, HTN, CAD, COPD SI:HCAP. RESP FAILURE. T 98.2 HR 128 RR 18 B/P 139/74 SATS 92% ON 15L/NRB LABS: WBC 19.8 BUN 26 CR 1.6 GLU 290 AST 65 BNP 43172 IS: DUO NEB HHN X1 ASA PO X1 SOLU MEDROL IV X1 ZOSYN IV X1 LEVAQUIN IV X1 EKG Rate: tachycardiac Rhythm: NSR ST Segments: other - NSST changes. Poor baseline due to tremors CXR Impression: Other - RLL mass vs infiltrate. vasc congestion PATIENT ADMITTED TO ICU 09/03/2019 @ 6555 DCP: DC LOCATION TO BE DETERMINED PLAN OF CARE: RESP SUPPORT Addendum: 09/04/19 at 1713 by Maggie Mcghee CM ENTERED IN ERROR
--- NOTE | 2019-09-04 17:49 | NUR ---
NURSE NOTES: Patient is resting comfortably in bed, eating dinner, being fed by brother. No signs of acute distress. Will continue to monitor.
--- NOTE | 2019-09-04 19:09 | NUR ---
HAND-OFF: Report given to Lore CARTER.
--- NOTE | 2019-09-04 19:42 | Internal Med Progress Note ---
Subjective Date of Service: Sep 04, 2019 Physician Name Niraj Teixeira Attending Physician Wil Masters MD Current Medications Medications (Trade) Dose Ordered Sig/Sandeep Route PRN Reason Start Time Stop Time Status Last Admin Dose Admin Acetaminophen (Tylenol) 650 mg Q4H PRN NG Mild Pain/Temp > 100.5 08/22/19 10:30 09/21/19 10:29 08/30/19 20:18 Acetylcysteine (Mucomyst) 400 mg Q4HRT N 08/16/19 11:00 09/15/19 10:59 09/04/19 19:21 Albuterol/ Ipratropium (Albuterol/ Ipratropium) 3 ml Q4HRT HHN 09/01/19 23:00 09/06/19 22:59 09/04/19 19:21 Apixaban (Eliquis) 5 mg BID NGT 08/16/19 09:00 09/11/19 17:59 09/04/19 18:05 Ciprofloxacin (Cipro 500mg tab) 500 mg EVERY 12 HOURS NG 08/25/19 21:00 09/08/19 20:59 09/04/19 09:13 Divalproex Sodium (Depakote Sprinkles) 500 mg Q12HR NG 08/15/19 21:00 09/14/19 20:59 09/04/19 09:13 Meropenem 1 gm/ Sodium Chloride 55 ml @ 110 mls/hr Q8HR IVPB 08/23/19 14:00 09/06/19 23:59 09/04/19 14:41 Polyethylene Glycol (Miralax) 17 gm BEDTIME ORAL 08/20/19 21:00 09/19/19 20:59 09/03/19 21:37 Vancomycin HCl (Vanco rx to dose) 1 ea DAILY PRN MISC Per rx protocol 08/23/19 09:45 09/22/19 09:44 Vancomycin HCl 750 mg/Sodium Chloride 275 ml @ 183.333 mls/hr Q12HR@1100,2300 IVPB 09/03/19 11:00 09/08/19 10:59 09/04/19 11:30 Allergies: Coded Allergies: LATEX (Verified Allergy, Severe, Rash on skin, 08/19/19) PENICILLIN G (Verified Allergy, Unknown, 12/02/18) Tolerates cabapenem, cephalosporin PENICILLINS (Unverified Allergy, Unknown, 12/02/18) ROS Limited/Unobtainable: Yes Subjective 49 YO F with pneumonia and respiratory failure. Extubated 08/11/19. Cover for Int Med-DR Masters. ICU. Objective Last Vital Signs Date Time Temp Pulse Resp B/P (MAP) Pulse Ox O2 Delivery O2 Flow Rate FiO2 09/04/19 19:21 101 21 98 Nasal Cannula 3.0 32 09/04/19 19:00 113/66 (82) 09/04/19 17:00 97.4 Laboratory Tests Test 09/04/19 06:10 White Blood Count 12.3 K/UL (4.8-10.8) H Red Blood Count 4.26 M/UL (4.20-5.40) Hemoglobin 10.7 G/DL (12.0-16.0) L Hematocrit 32.8 % (37.0-47.0) L Mean Corpuscular Volume 77 FL (80-99) L Mean Corpuscular Hemoglobin 25.0 PG (27.0-31.0) L Mean Corpuscular Hemoglobin Concent 32.4 G/DL (32.0-36.0) Red Cell Distribution Width 20.8 % (11.6-14.8) H Platelet Count 365 K/UL (150-450) Mean Platelet Volume 5.5 FL (6.5-10.1) L Neutrophils (%) (Auto) 77.2 % (45.0-75.0) H Lymphocytes (%) (Auto) 16.7 % (20.0-45.0) L Monocytes (%) (Auto) 3.6 % (1.0-10.0) Eosinophils (%) (Auto) 1.7 % (0.0-3.0) Basophils (%) (Auto) 0.7 % (0.0-2.0) Sodium Level 140 MMOL/L (136-145) Potassium Level 3.8 MMOL/L (3.5-5.1) Chloride Level 103 MMOL/L (98-107) Carbon Dioxide Level 32 MMOL/L (21-32) Anion Gap 6 mmol/L (5-15) Blood Urea Nitrogen 9 mg/dL (7-18) Creatinine 0.4 MG/DL (0.55-1.30) L Estimat Glomerular Filtration Rate > 60 mL/min (>60) Glucose Level 96 MG/DL (74-106) Calcium Level 8.7 MG/DL (8.5-10.1) Intake and Output 09/03/19 09/04/19 19:00 07:00 Intake Total 960 ml 385.000 ml Output Total 695 ml 480 ml Balance 265 ml -95.000 ml Intake Oral 940 ml IV Total 385.000 ml Other 20 ml Output Urine Total 695 ml 480 ml Objective General Appearance: WD/WN, moderate distress EENT: PERRL/EOMI, normal ENT inspection Neck: non-tender, normal alignment, supple Cardiovascular: normal peripheral pulses, normal rate, regular rhythm, no gallop/murmur, no JVD Respiratory/Chest: Nasal canula; crackles/rales, rhonchi - bilaterally, expiratory wheezing Abdomen: normal bowel sounds, non tender, soft, no organomegaly, no mass Skin: normal pigmentation, warm/dry Assessment/Plan Problem List: (1) Respiratory failure with hypoxia Assessment & Plan: Tolerating venturi mask. S/P extubation 08/11/19 per pulmonary=Dr Bonilla (2) Pneumonia of both lower lobes Assessment & Plan: See ID note. Continue meropenem and vanco. (3) UTI (urinary tract infection) Assessment & Plan: Pseudamonas, ESBL E. Coli, and vanco resistant enterococcus. See ID note; Dr Sanabria signed off. Await new ID consult= Dr Buck/Milly. S/P meropenem, linezolid and micafugin (4) Sepsis (5) Paraplegia (6) Spina bifida Assessment/Plan Discharge plan: [facility] Niraj Teixeira MD Sep 04, 2019 19:42
--- NOTE | 2019-09-04 19:59 | NUR ---
NURSE NOTES: received report from osmany rn on 3ln/c pt received awake and alert receiving cpt and tolerated will repositionand suction
[2019-09-04] MEDS: Miralax 17gm pkt ORAL SCH (20:55)
--- NOTE | 2019-09-04 22:00 | NUR ---
NURSE NOTES: reposition and suction on b-pap 06/28 rate 14 36 o/o fio2
--- NOTE | 2019-09-04 22:47 | NUR ---
RESPIRATORY NOTE: Pt placed on BiPAP for nightly use. Pt now on BiPAP 06/28, backup rate 14, 35%. Pt is on a Facial mask, skin intact, no redness/breakdowns noted. Foam tape applied on pt's nosebridge/cheeks/chin to prevent mask irritations. Pt is alert/awake, follows commands. B/S guillermo. rhonchi, sxn small amounts of thick/thin/frothy, clear-white to pale-yellow secretions. BiPAP plugged into red outlet, alarms on & audible. Pt resting comfortably, in no apparent distress at this time. Will continue to monitor pt.
[2019-09-05] VITALS (24 sets, daily range): BP systolic 92–136; BP diastolic 47–92
--- NOTE | 2019-09-05 | NUR ---
NURSE NOTES:tolerating b-pap 06/28 rate 14 36 0/o fio2
--- NOTE | 2019-09-05 02:00 | NUR ---
NURSE NOTES: reposition AND SUCTION ASLEEP
[2019-09-05] MEDS: Acetylcysteine 20% Soln 4ml HHN SCH ×6 (02:56→23:30)
[2019-09-05] MEDS: Albuterol/Ipratropium 3ml neb HHN SCH ×6 (02:56→23:30)
--- NOTE | 2019-09-05 04:00 | NUR ---
NURSE NOTES: COMPLETE BED BATH AND ORAL CARE DONE
[2019-09-05 05:37] LABS: BASOPHILS % (AUTO) 0.7 % (0.0-2.0); EOSINOPHILS % (AUTO) 2.2 % (0.0-3.0); HEMATOCRIT 31.8 % (37.0-47.0); LYMPHOCYTES % (AUTO) 17.6 % (20.0-45.0); MEAN CORPUSCULAR VOLUME 78 FL (80-99); NEUTROPHILS % (AUTO) 75.5 % (45.0-75.0); PLATELET COUNT 324 K/UL (150-450); RED CELL DISTRIBUTION WIDTH 20.5 % (11.6-14.8)
[2019-09-05] MEDS: Meropenem 1 GM in NS 55 ML IVPB SCH ×3 (05:39→21:51)
--- NOTE | 2019-09-05 06:00 | NUR ---
NURSE NOTES: B-PAP OFF ON 3L N/C TOLERATED WELL
[2019-09-05 06:24] LABS: ANION GAP 5 mmol/L (5-15); BLOOD UREA NITROGEN 10 mg/dL (7-18); CARBON DIOXIDE 31 MMOL/L (21-32); CHLORIDE 103 MMOL/L (98-107); CREATININE 0.3 MG/DL (0.55-1.30); POTASSIUM 4.1 MMOL/L (3.5-5.1); SODIUM 139 MMOL/L (136-145)
--- NOTE | 2019-09-05 07:22 | NUR ---
HAND-OFF: Report given to ZAIRA RN USING S BAR.
--- NOTE | 2019-09-05 07:23 | NUR ---
NURSE NOTES: Received patient from Lore CARTER. Patient is awake, alert and oriented x2-x3. Sinus Rhythm on the Heart Monitor, HR 64. Receiving oxygen via nasal cannula at 2L/min, O2 Sat 100%, no signs of respiratory distress.. Suprapubic catheter is intact and draining. IV site is left foot 20g, patent and intact. Bed is locked, placed in lowest position, side rails up x3, bed alarm on, call light within reach, head of bed elevated. Will continue to monitor.
[2019-09-05] MEDS: Ciprofloxacin 500mg tab NG SCH ×2 (08:46→21:50)
[2019-09-05] MEDS: Depakote 125mg Sprinkles NG SCH ×2 (08:47→21:51)
[2019-09-05] MEDS: Eliquis 5mg tablet NGT SCH ×2 (08:47→18:12)
--- NOTE | 2019-09-05 09:07 | NUR ---
NURSE NOTES: Patient was fed breakfast by Nurse, 100% of breakfast consumed. Medications given as ordered. Patient tolerated well, no signs of acute distress. Will continue to monitor.
[2019-09-05] MEDS: Vancomycin 750mg/NS 275ml IVPB SCH ×2 (11:01)
--- NOTE | 2019-09-05 11:01 | Pulmonology Progress Note ---
Assessment/Plan Assessment/Plan Pulmonary Progress Note Assessment/Plan Problems: (1) Pneumonia/atelectasis of both lower lobes (2) Respiratory failure with hypoxia improving (3) UTI (urinary tract infection) (4) Paraplegia (5) Restrictive lung disease due to kyphoscoliosis (6) Pulmonary edema (7) Spina bifida (8) Sacral Decubitus Assessment/Plan Less SOB Optimize pulmonary hygiene/mobilize as tolerated Titrate O2 HHN's and NAC Abx (OTILIA/Zyvox) per ID NPO, NGTF's, [employer] therapy Monitor volumes and renal function DVT Px: Eliquis FC Subjective Allergies: Coded Allergies: PENICILLIN G (Verified Allergy, Unknown, 12/02/18) Tolerates cabapenem, cephalosporin PENICILLINS (Unverified Allergy, Unknown, 12/02/18) Subjective TTtele AFVSS O2 needs stable CXR worse + cough + SOB no FC Objective Vital Signs Noted General Appearance: no acute distress, cachetic HEENT: normocephalic, atraumatic, anicteric, mucous membranes moist Respiratory/Chest: rhonchi Cardiovascular: normal peripheral pulses, normal rate, regular rhythm Abdomen: normal bowel sounds, soft, non tender, no organomegaly, non distended Extremities: no cyanosis, no clubbing, no edema CAT Abdomen/Chest Basilar pulmonary atelectasis and possibly patchy consolidation in the bilateral posterior lower lobes. Borderline cardiomegaly Moderate right hydronephrosis and enlargement of the right kidney, despite apparent satisfactory position of a right nephroureteral stent. Possibility of stent dysfunction should be considered. Atrophic left kidney. Left nephroureteral stent in place, no hydronephrosis Bilateral renal calyceal and parenchymal calcifications, also previously reported Extensive chronic skeletal deformity, with evidence of spinal dysraphism, scoliosis, evidence of prior spinal fusion, and other abnormalities detailed above Unusual round structure superior to the upper pole left kidney posterior to the spleen, also described previously and unchanged, possibly an area of fatty infarction, unusual adrenal lesion, or an unusual accessory splenule. This is also stable since 2017 There is extensive pelvic deformity. There is marked abnormal soft tissue surrounding the rectum. There is a tract extending posteriorly from the distal rectum. Uncertain as whether this represents an otherwise normal but unusually positioned anus versus a fistula tract. Correlate with clinical findings. Extensive chronic appearing pelvic decubitus changes, with evidence of chronic osseous destruction of the sacrum and coccyx, appearing unchanged from prior study 08/23/2018 Discontinuous ventriculoperitoneal shunt tubing is again demonstrated. 2.2 cm calcified right lower pole thyroid nodule. Consider thyroid sonography for further evaluation Minimal anterior wall pericardial thickening versus fluid. Subjective ROS Limited/Unobtainable: No Allergies: Coded Allergies: LATEX (Verified Allergy, Severe, Rash on skin, 08/19/19) PENICILLIN G (Verified Allergy, Unknown, 12/02/18) Tolerates cabapenem, cephalosporin PENICILLINS (Unverified Allergy, Unknown, 12/02/18) Objective Last 24 Hour Vital Signs Date Time Temp Pulse Resp B/P (MAP) Pulse Ox O2 Delivery O2 Flow Rate FiO2 09/05/19 10:00 103 20 107/72 (84) 98 09/05/19 09:00 100 17 108/77 (87) 95 09/05/19 08:00 99.1 96 15 92/57 (69) 98 09/05/19 08:00 Nasal Cannula 3.0 Nasal Cannula 3.0 09/05/19 08:00 3.0 09/05/19 07:34 91 20 100 Nasal Cannula 3.0 32 88 22 99 09/05/19 07:21 95 09/05/19 07:05 99 Nasal Cannula 3.0 32 09/05/19 07:00 84 14 107/64 (78) 09/05/19 06:00 85 18 117/74 (88) 09/05/19 06:00 3.0 09/05/19 05:00 85 19 100/72 (81) 97 09/05/19 04:00 86 09/05/19 04:00 36.0 09/05/19 04:00 99.0 84 18 107/66 (80) 97 09/05/19 04:00 Nasal Cannula 3.0 Nasal Cannula 3.0 09/05/19 03:11 84 22 99 Bi-Pap 35 09/05/19 03:00 76 129/83 (98) 90 09/05/19 02:56 79 19 99 35 09/05/19 02:56 79 19 99 Bi-Pap 35 09/05/19 02:00 83 109/75 (86) 99 09/05/19 01:33 84 25 97 35 09/05/19 01:00 86 112/47 (68) 93 09/05/19 00:00 98.4 89 25 118/67 (84) 99 09/05/19 00:00 36.0 09/05/19 00:00 Nasal Cannula 3.0 Nasal Cannula 3.0 09/05/19 00:00 86 09/04/19 23:00 87 19 125/73 (90) 100 09/04/19 22:59 94 19 100 Bi-Pap 35 09/04/19 22:44 86 17 97 Bi-Pap 35 09/04/19 22:44 86 17 97 35 09/04/19 22:00 99 19 114/74 (87) 98 09/04/19 21:00 107 19 110/74 (86) 93 09/04/19 21:00 95 09/04/19 20:00 3.0 09/04/19 20:00 Nasal Cannula 3.0 Nasal Cannula 3.0 09/04/19 20:00 98.0 109 19 114/74 (87) 87 09/04/19 19:36 103 23 99 Nasal Cannula 3.0 32 09/04/19 19:21 101 21 98 Nasal Cannula 3.0 32 09/04/19 19:21 98 Nasal Cannula 3.0 32 09/04/19 19:00 102 20 113/66 (82) 98 09/04/19 18:00 103 22 125/76 (92) 95 09/04/19 18:00 101 21 125/76 (92) 89 09/04/19 17:00 99 20 117/69 (85) 95 09/04/19 17:00 97.4 98 20 117/69 (85) 96 09/04/19 16:00 3.0 09/04/19 16:00 103 20 109/63 (78) 94 09/04/19 16:00 Nasal Cannula 3.0 Nasal Cannula 3.0 09/04/19 15:31 96 09/04/19 15:16 97 20 100 Nasal Cannula 3.0 32 93 24 98 09/04/19 15:00 95 18 105/73 (84) 96 09/04/19 14:05 94 14 105/70 (82) 97 09/04/19 13:00 91 14 106/62 (77) 97 09/04/19 12:00 Nasal Cannula 3.0 Nasal Cannula 3.0 09/04/19 12:00 3.0 09/04/19 12:00 96 09/04/19 12:00 98.4 94 23 102/77 (85) 95 09/04/19 11:00 97 14 102/60 (74) 93 Intake and Output 09/04/19 09/05/19 19:00 07:00 Intake Total 530.00 ml 330.000 ml Output Total 1145 ml 1090 ml Balance -615.00 ml -760.000 ml Intake Oral 200 ml IV Total 330.00 ml 330.000 ml Output Urine Total 1145 ml 1090 ml # Bowel Movements 2 Laboratory Tests 09/05/19 04:45: White Blood Count 11.0H, Red Blood Count 4.10L, Hemoglobin 10.0L, Hematocrit 31.8L, Mean Corpuscular Volume 78L, Mean Corpuscular Hemoglobin 24.5L, Mean Corpuscular Hemoglobin Concent 31.6L, Red Cell Distribution Width 20.5H, Platelet Count 324, Mean Platelet Volume 5.6L, Neutrophils (%) (Auto) 75.5H, Lymphocytes (%) (Auto) 17.6L, Monocytes (%) (Auto) 4.0, Eosinophils (%) (Auto) 2.2, Basophils (%) (Auto) 0.7, Sodium Level 139, Potassium Level 4.1, Chloride Level 103, Carbon Dioxide Level 31, Anion Gap 5, Blood Urea Nitrogen 10, Creatinine 0.3L, Estimat Glomerular Filtration Rate > 60, Glucose Level 107H, Calcium Level 9.0 09/05/19 10:15: Vancomycin Level Trough [Pending] Current Medications Medications (Trade) Dose Ordered Sig/Sandeep Route PRN Reason Start Time Stop Time Status Last Admin Dose Admin Acetaminophen (Tylenol) 650 mg Q4H PRN NG Mild Pain/Temp > 100.5 08/22/19 10:30 09/21/19 10:29 08/30/19 20:18 Acetylcysteine (Mucomyst) 400 mg Q4HRT N 08/16/19 11:00 09/15/19 10:59 09/05/19 10:58 Albuterol/ Ipratropium (Albuterol/ Ipratropium) 3 ml Q4HRT N 09/01/19 23:00 09/06/19 22:59 09/05/19 10:58 Apixaban (Eliquis) 5 mg BID NGT 08/16/19 09:00 09/11/19 17:59 09/05/19 08:47 Ciprofloxacin (Cipro 500mg tab) 500 mg EVERY 12 HOURS NG 08/25/19 21:00 09/08/19 20:59 09/05/19 08:46 Divalproex Sodium (Depakote Sprinkles) 500 mg Q12HR NG 08/15/19 21:00 09/14/19 20:59 09/05/19 08:47 Meropenem 1 gm/ Sodium Chloride 55 ml @ 110 mls/hr Q8HR IVPB 08/23/19 14:00 09/06/19 23:59 09/05/19 05:39 Vancomycin HCl (Vanco rx to dose) 1 ea DAILY PRN MISC Per rx protocol 08/23/19 09:45 09/22/19 09:44 Vancomycin HCl 750 mg/Sodium Chloride 275 ml @ 183.333 mls/hr Q12HR@1100,2300 IVPB 09/03/19 11:00 09/08/19 10:59 09/04/19 23:07 Perfecto Youngblood MD Sep 05, 2019 11:01
--- NOTE | 2019-09-05 11:06 | General Progress Note ---
Assessment/Plan Problem List: (1) Spina bifida ICD Codes: Q05.9 - Spina bifida, unspecified SNOMED: 70368278 Qualifiers: Qualified Codes: Q05.4 - Unspecified spina bifida with hydrocephalus (2) Respiratory failure with hypoxia ICD Codes: J96.91 - Respiratory failure, unspecified with hypoxia SNOMED: 95318971471103295 Qualifiers: Qualified Codes: J96.21 - Acute and chronic respiratory failure with hypoxia (3) Dysphagia ICD Codes: R13.10 - Dysphagia, unspecified SNOMED: 49734732, 222079377 (4) UTI (urinary tract infection) ICD Codes: N39.0 - Urinary tract infection, site not specified SNOMED: 57624657, 566557373 Qualifiers: Qualified Codes: N30.00 - Acute cystitis without hematuria (5) Paraplegia ICD Codes: G82.20 - Paraplegia, unspecified SNOMED: 35170923 (6) Anemia ICD Codes: D64.9 - Anemia, unspecified SNOMED: 924117480 Status: unchanged Assessment/Plan: ppi repeat labs fu H&H stool ob neg x1 reglan passed swallow eval tolerating diet dc miralax given loose stools abx per ID fu pulm recs CT reviewed will fu Subjective ROS Limited/Unobtainable: No Allergies: Coded Allergies: LATEX (Verified Allergy, Severe, Rash on skin, 08/19/19) PENICILLIN G (Verified Allergy, Unknown, 12/02/18) Tolerates cabapenem, cephalosporin PENICILLINS (Unverified Allergy, Unknown, 12/02/18) Objective Last 24 Hour Vital Signs Date Time Temp Pulse Resp B/P (MAP) Pulse Ox O2 Delivery O2 Flow Rate FiO2 09/05/19 10:00 103 20 107/72 (84) 98 09/05/19 09:00 100 17 108/77 (87) 95 09/05/19 08:00 99.1 96 15 92/57 (69) 98 09/05/19 08:00 Nasal Cannula 3.0 Nasal Cannula 3.0 09/05/19 08:00 3.0 09/05/19 07:34 91 20 100 Nasal Cannula 3.0 32 88 22 99 09/05/19 07:21 95 09/05/19 07:05 99 Nasal Cannula 3.0 32 09/05/19 07:00 84 14 107/64 (78) 09/05/19 06:00 85 18 117/74 (88) 09/05/19 06:00 3.0 09/05/19 05:00 85 19 100/72 (81) 97 09/05/19 04:00 86 09/05/19 04:00 36.0 09/05/19 04:00 99.0 84 18 107/66 (80) 97 09/05/19 04:00 Nasal Cannula 3.0 Nasal Cannula 3.0 09/05/19 03:11 84 22 99 Bi-Pap 35 09/05/19 03:00 76 129/83 (98) 90 09/05/19 02:56 79 19 99 35 09/05/19 02:56 79 19 99 Bi-Pap 35 09/05/19 02:00 83 109/75 (86) 99 09/05/19 01:33 84 25 97 35 09/05/19 01:00 86 112/47 (68) 93 09/05/19 00:00 98.4 89 25 118/67 (84) 99 09/05/19 00:00 36.0 09/05/19 00:00 Nasal Cannula 3.0 Nasal Cannula 3.0 09/05/19 00:00 86 09/04/19 23:00 87 19 125/73 (90) 100 09/04/19 22:59 94 19 100 Bi-Pap 35 09/04/19 22:44 86 17 97 Bi-Pap 35 09/04/19 22:44 86 17 97 35 09/04/19 22:00 99 19 114/74 (87) 98 09/04/19 21:00 107 19 110/74 (86) 93 09/04/19 21:00 95 09/04/19 20:00 3.0 09/04/19 20:00 Nasal Cannula 3.0 Nasal Cannula 3.0 09/04/19 20:00 98.0 109 19 114/74 (87) 87 09/04/19 19:36 103 23 99 Nasal Cannula 3.0 32 09/04/19 19:21 101 21 98 Nasal Cannula 3.0 32 09/04/19 19:21 98 Nasal Cannula 3.0 32 09/04/19 19:00 102 20 113/66 (82) 98 09/04/19 18:00 103 22 125/76 (92) 95 09/04/19 18:00 101 21 125/76 (92) 89 09/04/19 17:00 99 20 117/69 (85) 95 09/04/19 17:00 97.4 98 20 117/69 (85) 96 09/04/19 16:00 3.0 09/04/19 16:00 103 20 109/63 (78) 94 09/04/19 16:00 Nasal Cannula 3.0 Nasal Cannula 3.0 09/04/19 15:31 96 09/04/19 15:16 97 20 100 Nasal Cannula 3.0 32 93 24 98 09/04/19 15:00 95 18 105/73 (84) 96 09/04/19 14:05 94 14 105/70 (82) 97 09/04/19 13:00 91 14 106/62 (77) 97 09/04/19 12:00 Nasal Cannula 3.0 Nasal Cannula 3.0 09/04/19 12:00 3.0 09/04/19 12:00 96 09/04/19 12:00 98.4 94 23 102/77 (85) 95 Intake and Output 09/04/19 09/05/19 19:00 07:00 Intake Total 530.00 ml 330.000 ml Output Total 1145 ml 1090 ml Balance -615.00 ml -760.000 ml Intake Oral 200 ml IV Total 330.00 ml 330.000 ml Output Urine Total 1145 ml 1090 ml # Bowel Movements 2 Laboratory Tests 09/05/19 04:45: White Blood Count 11.0H, Red Blood Count 4.10L, Hemoglobin 10.0L, Hematocrit 31.8L, Mean Corpuscular Volume 78L, Mean Corpuscular Hemoglobin 24.5L, Mean Corpuscular Hemoglobin Concent 31.6L, Red Cell Distribution Width 20.5H, Platelet Count 324, Mean Platelet Volume 5.6L, Neutrophils (%) (Auto) 75.5H, Lymphocytes (%) (Auto) 17.6L, Monocytes (%) (Auto) 4.0, Eosinophils (%) (Auto) 2.2, Basophils (%) (Auto) 0.7, Sodium Level 139, Potassium Level 4.1, Chloride Level 103, Carbon Dioxide Level 31, Anion Gap 5, Blood Urea Nitrogen 10, Creatinine 0.3L, Estimat Glomerular Filtration Rate > 60, Glucose Level 107H, Calcium Level 9.0 09/05/19 10:15: Vancomycin Level Trough [Pending] Height (Feet): 4 Height (Inches): 10.00 Weight (Pounds): 120 General Appearance: lethargic EENT: normal ENT inspection Neck: supple Cardiovascular: normal rate Respiratory/Chest: decreased breath sounds Abdomen: normal bowel sounds, non tender, soft Extremities: non-tender Tim Davis MD Sep 05, 2019 11:06
--- NOTE | 2019-09-05 11:11 | Infectious Diseases Prog Note ---
Assessment/Plan Assessment/Plan Assessment: Sepsis Persistent Gram positive bacteremia- suspect PICC line infection- persist despite removal picc line- r/o endocarditis -08/30, Bcx NTD 2d echo: no vegetations noted -08/27 PICC line removed; cath tip cx Neg Bcx 1/4 S. epi -08/22 Bcx 2/4 S.epi; 2/3 bcx Picc NTD, peripheral CONS Recurrent aspiration pneumonia -08/29 video swallow:Positive for penetration of thin, honey thick, nectar thick liquid barium. -08/25 CXR:Suspicion of slightly worsening CHF -08/22 cXR: Possible mild pulmonary vascular congestion. No change from the prior study -08/21 sp cx S. aureus, MDR PsA (S Amikacin, Cipro/levo; R Cefepime, Meropenem) -08/18 cXR: The lungs remain clear. There may be some minimal basal atelectasis -08/14 CXR: Cardiomegaly. Mild interstitial congestion, unchanged over 3 days -07/31, 08/01 sp cx normal resp sunny -07/12 sp cx normal -07/12 SP FLEXIBLE FIBEROPTIC BRONCHOSCOPY WITH BRONCHOALVEOLAR LAVAGE AND THERAPEUTIC ASPIRATION OF MUCOUS PLUG LEFT LUNG -07/11/20 CXR: Bilateral pulmonary edema/infiltrates. Possible small pleural effusions. Fever, recurrent- resolved Leukocytosis, recurrent; increased, now improving -09/[address] c/abd/p w/: Basilar pulmonary atelectasis and possibly patchy consolidation in the bilateral posterior lower lobes. Borderline cardiomegaly. Moderate right hydronephrosis and enlargement of the right kidney, despite apparent satisfactory position of a right nephroureteral stent. Possibility of stent dysfunction should be considered. Atrophic left kidney. Left nephroureteral stent in place, no hydronephrosis. Bilateral renal calyceal and parenchymal calcifications, also previously reported. Extensive chronic skeletal deformity, with evidence of spinal dysraphism, scoliosis, evidence of prior spinal fusion, and other abnormalities detailed above. Unusual round structure superior to the upper pole left kidney posterior to the spleen, also described previously and unchanged, possibly an area of fatty infarction, unusual adrenal lesion, or an unusual accessory splenule. This is also stable since 2017. There is extensive pelvic deformity. There is marked abnormal soft tissue surrounding the rectum. There is a tract extending posteriorly from the distal rectum. Uncertain as whether this represents an otherwise normal but unusually positioned anus versus a fistula tract. Correlate with clinical findings. Extensive chronic appearing pelvic decubitus changes, with evidence of chronicosseous destruction of the sacrum and coccyx, appearing unchanged from prior study 08/23/2018. Discontinuous ventriculoperitoneal shunt tubing is again demonstrated. 2.2 cm calcified right lower pole thyroid nodule. Consider thyroid sonography for further evaluation Minimal anterior wall pericardial thickening versus fluid. Recurrent hypoxic respiratory failure 2ry to above -sp intubation 07/31/19 and extubation 08/11/19 -s/p intubation 07/12/19 and extubation 07/19/19 UTI , recurrent R hydronephrosis -09/01 u/A wbc 10-15, nit neg, leuk +2; Ucx 40-50k yeast -08/21 u/a wbc tnct, nit neg, leuk large; ucx >100k PsA (I Cefepime, Levaquin ; S Imipenem, Cipro) -08/11 ucx C. parapsilosis (colinzer) - 07/12 Ucx PsA (R Ceftazidime, levaquin; I Ciprofloxacin; otherwise S), VRE ( S Amp, linezolid) -07/11/19 u/a wbc tntc, nit neg, leuk +3; ucx PsA, ESBL E.coli, P. mirabilis S. mitis bacteremia- likely contaminant -07/28 Bcx 07/26 S. mitis; 07/29, 08/01, 08/03 Bcx neg HTN Dm2 spina bifida s/p [employer]ATE shunt decubiti ulcers wheelchair bound/paraplegic b/l renal stents neurogenic bladder s/p suprapubic catheter recurrent UTIs Plan: -Continue Meropenem #13/14 and PO Cipro #11 (abx d #07/05) -Continue IV Vancomycin #13/14 for S. aureus PNA and CONS bacteremia -2/3 SP Amikacin #4 -/ SP Cefepime and Flagyl #3 -08/11 SP Linezolid and Meropenem #15 -08/06 SP Micafungin #4 -f/u cx -Monitor CBC/CMP, temperatures -aspiration precautions -GI, pulm f/u -speech therapy recommending PEG, family is refusing -f/u Bcx x2 (peripheral and pICC line), ucx -May need ADINA if recurrent bacteremia -URo eval Thank you for this consultation. Will continue to follow along with you. Discussed with RN Subjective Allergies: Coded Allergies: LATEX (Verified Allergy, Severe, Rash on skin, 08/19/19) PENICILLIN G (Verified Allergy, Unknown, 12/02/18) Tolerates cabapenem, cephalosporin PENICILLINS (Unverified Allergy, Unknown, 12/02/18) Subjective afebrile wbc improved repeat Bcx NTD Objective Vital Signs Last 24 Hour Vital Signs Date Time Temp Pulse Resp B/P (MAP) Pulse Ox O2 Delivery O2 Flow Rate FiO2 09/05/19 10:00 103 20 107/72 (84) 98 09/05/19 09:00 100 17 108/77 (87) 95 09/05/19 08:00 99.1 96 15 92/57 (69) 98 09/05/19 08:00 Nasal Cannula 3.0 Nasal Cannula 3.0 09/05/19 08:00 3.0 09/05/19 07:34 91 20 100 Nasal Cannula 3.0 32 88 22 99 09/05/19 07:21 95 09/05/19 07:05 99 Nasal Cannula 3.0 32 09/05/19 07:00 84 14 107/64 (78) 09/05/19 06:00 85 18 117/74 (88) 09/05/19 06:00 3.0 09/05/19 05:00 85 19 100/72 (81) 97 09/05/19 04:00 86 09/05/19 04:00 36.0 09/05/19 04:00 99.0 84 18 107/66 (80) 97 09/05/19 04:00 Nasal Cannula 3.0 Nasal Cannula 3.0 09/05/19 03:11 84 22 99 Bi-Pap 35 09/05/19 03:00 76 129/83 (98) 90 09/05/19 02:56 79 19 99 35 09/05/19 02:56 79 19 99 Bi-Pap 35 09/05/19 02:00 83 109/75 (86) 99 09/05/19 01:33 84 25 97 35 09/05/19 01:00 86 112/47 (68) 93 09/05/19 00:00 98.4 89 25 118/67 (84) 99 09/05/19 00:00 36.0 09/05/19 00:00 Nasal Cannula 3.0 Nasal Cannula 3.0 09/05/19 00:00 86 09/04/19 23:00 87 19 125/73 (90) 100 09/04/19 22:59 94 19 100 Bi-Pap 35 09/04/19 22:44 86 17 97 Bi-Pap 35 09/04/19 22:44 86 17 97 35 09/04/19 22:00 99 19 114/74 (87) 98 09/04/19 21:00 107 19 110/74 (86) 93 09/04/19 21:00 95 09/04/19 20:00 3.0 09/04/19 20:00 Nasal Cannula 3.0 Nasal Cannula 3.0 09/04/19 20:00 98.0 109 19 114/74 (87) 87 09/04/19 19:36 103 23 99 Nasal Cannula 3.0 32 09/04/19 19:21 101 21 98 Nasal Cannula 3.0 32 09/04/19 19:21 98 Nasal Cannula 3.0 32 09/04/19 19:00 102 20 113/66 (82) 98 09/04/19 18:00 103 22 125/76 (92) 95 09/04/19 18:00 101 21 125/76 (92) 89 09/04/19 17:00 99 20 117/69 (85) 95 09/04/19 17:00 97.4 98 20 117/69 (85) 96 09/04/19 16:00 3.0 09/04/19 16:00 103 20 109/63 (78) 94 09/04/19 16:00 Nasal Cannula 3.0 Nasal Cannula 3.0 09/04/19 15:31 96 09/04/19 15:16 97 20 100 Nasal Cannula 3.0 32 93 24 98 09/04/19 15:00 95 18 105/73 (84) 96 09/04/19 14:05 94 14 105/70 (82) 97 09/04/19 13:00 91 14 106/62 (77) 97 09/04/19 12:00 Nasal Cannula 3.0 Nasal Cannula 3.0 09/04/19 12:00 3.0 09/04/19 12:00 96 09/04/19 12:00 98.4 94 23 102/77 (85) 95 Height (Feet): 4 Height (Inches): 10.00 Weight (Pounds): 120 Objective General Appearance: not in distress, awake EENT: normal ENT inspection Neck: supple Cardiovascular: normal rate Respiratory/Chest: decreased breath sounds Abdomen: normal bowel sounds, non tender, soft, non distended Extremities: non-tender Laboratory Tests Test 09/05/19 04:45 09/05/19 10:15 White Blood Count 11.0 K/UL (4.8-10.8) H Red Blood Count 4.10 M/UL (4.20-5.40) L Hemoglobin 10.0 G/DL (12.0-16.0) L Hematocrit 31.8 % (37.0-47.0) L Mean Corpuscular Volume 78 FL (80-99) L Mean Corpuscular Hemoglobin 24.5 PG (27.0-31.0) L Mean Corpuscular Hemoglobin Concent 31.6 G/DL (32.0-36.0) L Red Cell Distribution Width 20.5 % (11.6-14.8) H Platelet Count 324 K/UL (150-450) Mean Platelet Volume 5.6 FL (6.5-10.1) L Neutrophils (%) (Auto) 75.5 % (45.0-75.0) H Lymphocytes (%) (Auto) 17.6 % (20.0-45.0) L Monocytes (%) (Auto) 4.0 % (1.0-10.0) Eosinophils (%) (Auto) 2.2 % (0.0-3.0) Basophils (%) (Auto) 0.7 % (0.0-2.0) Sodium Level 139 MMOL/L (136-145) Potassium Level 4.1 MMOL/L (3.5-5.1) Chloride Level 103 MMOL/L (98-107) Carbon Dioxide Level 31 MMOL/L (21-32) Anion Gap 5 mmol/L (5-15) Blood Urea Nitrogen 10 mg/dL (7-18) Creatinine 0.3 MG/DL (0.55-1.30) L Estimat Glomerular Filtration Rate > 60 mL/min (>60) Glucose Level 107 MG/DL (74-106) H Calcium Level 9.0 MG/DL (8.5-10.1) Vancomycin Level Trough Pending Current Medications Medications (Trade) Dose Ordered Sig/Sandeep Route PRN Reason Start Time Stop Time Status Last Admin Dose Admin Acetaminophen (Tylenol) 650 mg Q4H PRN NG Mild Pain/Temp > 100.5 08/22/19 10:30 09/21/19 10:29 08/30/19 20:18 Acetylcysteine (Mucomyst) 400 mg Q4HRT HHN 08/16/19 11:00 09/15/19 10:59 09/05/19 10:58 Albuterol/ Ipratropium (Albuterol/ Ipratropium) 3 ml Q4HRT HHN 09/01/19 23:00 09/06/19 22:59 09/05/19 10:58 Apixaban (Eliquis) 5 mg BID NGT 08/16/19 09:00 09/11/19 17:59 09/05/19 08:47 Ciprofloxacin (Cipro 500mg tab) 500 mg EVERY 12 HOURS NG 08/25/19 21:00 09/08/19 20:59 09/05/19 08:46 Divalproex Sodium (Depakote Sprinkles) 500 mg Q12HR NG 08/15/19 21:00 09/14/19 20:59 09/05/19 08:47 Meropenem 1 gm/ Sodium Chloride 55 ml @ 110 mls/hr Q8HR IVPB 08/23/19 14:00 09/06/19 23:59 09/05/19 05:39 Vancomycin HCl (Vanco rx to dose) 1 ea DAILY PRN MISC Per rx protocol 08/23/19 09:45 09/22/19 09:44 Vancomycin HCl 750 mg/Sodium Chloride 275 ml @ 183.333 mls/hr Q12HR@1100,2300 IVPB 09/03/19 11:00 09/08/19 10:59 09/05/19 11:01 Joaquina Hill M.D. Sep 05, 2019 11:11
--- NOTE | 2019-09-05 13:58 | NUR ---
BEHAVIORAL PSYCHOLOGIST NOTES SPOKE WITH PT'S SISTER HAMMAD. HAMMAD IS DECLINING LTACH PLACEMENT AT THIS TIME.REQUESTING PT TO RETURN HOME. NO NEEDS FOR HOME AT THIS TIME PER HAMMAD PT HAS BIPAP MACHINE AND OXYGEN AT HOME. FAMILY WILL PROVIDE CARE FOR PT ONCE SHE GETS HOME. MD HAWLEY.
--- NOTE | 2019-09-05 13:59 | NUR ---
NURSE NOTES: Patient is resting comfortably in bed, no signs of acute distress.
--- NOTE | 2019-09-05 14:39 | NUR ---
NURSE NOTES: Patient seen and assessed by Dr. Youngblood
--- NOTE | 2019-09-05 14:39 | NUR ---
NURSE NOTES: Patient seen and assessed by Dr. Hill.
--- NOTE | 2019-09-05 14:55 | NUR ---
NURSE NOTES: Patient seen assessed by Dr. Masters.
--- NOTE | 2019-09-05 15:07 | Internal Med Progress Note ---
Subjective Physician Name Wil Masters Attending Physician Wil Masters MD Current Medications Medications (Trade) Dose Ordered Sig/Sandeep Route PRN Reason Start Time Stop Time Status Last Admin Dose Admin Acetaminophen (Tylenol) 650 mg Q4H PRN NG Mild Pain/Temp > 100.5 08/22/19 10:30 09/21/19 10:29 08/30/19 20:18 Acetylcysteine (Mucomyst) 400 mg Q4HRT N 08/16/19 11:00 09/15/19 10:59 09/05/19 14:43 Albuterol/ Ipratropium (Albuterol/ Ipratropium) 3 ml Q4HRT N 09/01/19 23:00 09/06/19 22:59 09/05/19 14:43 Apixaban (Eliquis) 5 mg BID NGT 08/16/19 09:00 09/11/19 17:59 09/05/19 08:47 Ciprofloxacin (Cipro 500mg tab) 500 mg EVERY 12 HOURS NG 08/25/19 21:00 09/08/19 20:59 09/05/19 08:46 Divalproex Sodium (Depakote Sprinkles) 500 mg Q12HR NG 08/15/19 21:00 09/14/19 20:59 09/05/19 08:47 Meropenem 1 gm/ Sodium Chloride 55 ml @ 110 mls/hr Q8HR IVPB 08/23/19 14:00 09/06/19 23:59 09/05/19 14:09 Vancomycin HCl (Vanco rx to dose) 1 ea DAILY PRN MISC Per rx protocol 08/23/19 09:45 09/22/19 09:44 Vancomycin HCl 1 gm/Sodium Chloride 275 ml @ 183.333 mls/hr Q12HR IVPB 09/05/19 21:00 09/10/19 20:59 Allergies: Coded Allergies: LATEX (Verified Allergy, Severe, Rash on skin, 08/19/19) PENICILLIN G (Verified Allergy, Unknown, 12/02/18) Tolerates cabapenem, cephalosporin PENICILLINS (Unverified Allergy, Unknown, 12/02/18) Subjective IN ICU, awake, alert, responsive, able to F/U with commands, WBC: 11.0 Objective Last Vital Signs Date Time Temp Pulse Resp B/P (MAP) Pulse Ox O2 Delivery O2 Flow Rate FiO2 09/05/19 14:58 84 22 100 Nasal Cannula 3.0 32 88 22 98 09/05/19 14:00 101/59 (73) 09/05/19 12:00 99.2 Laboratory Tests Test 09/05/19 04:45 09/05/19 10:15 White Blood Count 11.0 K/UL (4.8-10.8) H Red Blood Count 4.10 M/UL (4.20-5.40) L Hemoglobin 10.0 G/DL (12.0-16.0) L Hematocrit 31.8 % (37.0-47.0) L Mean Corpuscular Volume 78 FL (80-99) L Mean Corpuscular Hemoglobin 24.5 PG (27.0-31.0) L Mean Corpuscular Hemoglobin Concent 31.6 G/DL (32.0-36.0) L Red Cell Distribution Width 20.5 % (11.6-14.8) H Platelet Count 324 K/UL (150-450) Mean Platelet Volume 5.6 FL (6.5-10.1) L Neutrophils (%) (Auto) 75.5 % (45.0-75.0) H Lymphocytes (%) (Auto) 17.6 % (20.0-45.0) L Monocytes (%) (Auto) 4.0 % (1.0-10.0) Eosinophils (%) (Auto) 2.2 % (0.0-3.0) Basophils (%) (Auto) 0.7 % (0.0-2.0) Sodium Level 139 MMOL/L (136-145) Potassium Level 4.1 MMOL/L (3.5-5.1) Chloride Level 103 MMOL/L (98-107) Carbon Dioxide Level 31 MMOL/L (21-32) Anion Gap 5 mmol/L (5-15) Blood Urea Nitrogen 10 mg/dL (7-18) Creatinine 0.3 MG/DL (0.55-1.30) L Estimat Glomerular Filtration Rate > 60 mL/min (>60) Glucose Level 107 MG/DL (74-106) H Calcium Level 9.0 MG/DL (8.5-10.1) Vancomycin Level Trough 9.3 ug/mL (5.0-12.0) Intake and Output 09/04/19 09/05/19 19:00 07:00 Intake Total 530.00 ml 330.000 ml Output Total 1145 ml 1090 ml Balance -615.00 ml -760.000 ml Intake Oral 200 ml IV Total 330.00 ml 330.000 ml Output Urine Total 1145 ml 1090 ml # Bowel Movements 2 Objective General: Awake, alert, responsive, talking.. HEENT: NCAT, sclera anicteric, PERRL, EOMI, NG Neck: Supple, no significant jugular venous distention, Lungs: Decreased air at the bases, not chest congestion, minimal rhonchi, no Wheeze. Heart: Regular rate and rhythm, normal S1/S2, no murmurs. Abdomen: soft, nontender, nondistended. Normoactive bowel sounds, morbid obesity. / Rectal: suprapubic cath. Extremities: No Cyanosis , clubbing or edema. Left upper extremity PICC line Neuro: A&O x 3, Able to move Upper extremities, unable to move LE's. Paraplegic. Skin: warm, no rash. Assessment/Plan Assessment/Plan 1) Pneumonia of both lower lobes Assessment & Plan: VDRF, intubated 07/12/19, S/P FOB 07/12/19; Reintubated (2) Catheter-associated urinary tract infection Assessment & Plan: PsA and proteus (3) Acute Respiratory failure with hypoxia Assessment & Plan: Acute on chronic hypercapnic and hypoxemic RF 2/2 PNA VDRF as able Duplex neg, minimally elevated d-dimer, unlikely VTE On Eliquis. (4) HCAP (healthcare-associated pneumonia) (5) Paraplegia (6) Sepsis (7) Suprapubic catheter (8) Restrictive lung disease due to kyphoscoliosis (9) Decubitus skin ulcer (10) Spina bifida (11) gram-negative bacilli UTI. Plan: * Monitor Labs and cultures * On Eliquis * Good pulmonary hygiene: DuoNeb therapy. * Transfer to [facility] * Eating well. * Discharge planning. * Abx: Vancomycin IV, Cipro p.o., meropenem IV. Wil Masters MD Sep 05, 2019 15:07
--- NOTE | 2019-09-05 19:25 | NUR ---
HAND-OFF: Report given to Lore CARTER.
--- NOTE | 2019-09-05 19:37 | NUR ---
NURSE NOTES: received report from osmany rn pt awake and alert follows command move all extremities on 3l n/c o2 sat 95 0/0reposition and suction hr s tachy no acute resp distress noted
[2019-09-05] MEDS ORDERED: Vancomycin 750 MG in NS 275 ML IVPB SCH (21:00)
[2019-09-05] MEDS: Vancomycin 1 GM in NS 275 ML IVPB SCH (21:53)
--- NOTE | 2019-09-05 22:00 | NUR ---
NURSE NOTES: reposition and suction iv infusing well site good
[2019-09-06] VITALS (26 sets, daily range): BP systolic 76–120; BP diastolic 46–98
--- NOTE | 2019-09-06 | NUR ---
NURSE NOTES: tolerating bi-pap no acute distress note
[2019-09-06] MEDS: Meropenem 1 GM in NS 55 ML IVPB SCH ×3 (06:03→22:22)
--- NOTE | 2019-09-06 07:00 | Infectious Diseases Prog Note ---
Assessment/Plan Assessment/Plan Assessment: Sepsis Persistent Gram positive bacteremia- suspect PICC line infection- persist despite removal picc line- r/o endocarditis -08/30, Bcx NTD 2d echo: no vegetations noted -08/27 PICC line removed; cath tip cx Neg Bcx 1/4 S. epi -08/22 Bcx 2/4 S.epi; 2/3 bcx Picc NTD, peripheral CONS Recurrent aspiration pneumonia -08/29 video swallow: Positive for penetration of thin, honey thick, nectar thick liquid barium. -08/25 CXR:Suspicion of slightly worsening CHF -08/22 cXR: Possible mild pulmonary vascular congestion. No change from the prior study -08/21 sp cx S. aureus, MDR PsA (S Amikacin, Cipro/levo; R Cefepime, Meropenem) -08/18 cXR: The lungs remain clear. There may be some minimal basal atelectasis -08/14 CXR: Cardiomegaly. Mild interstitial congestion, unchanged over 3 days -07/31, 08/01 sp cx normal resp sunny -07/12 sp cx normal -07/12 SP FLEXIBLE FIBEROPTIC BRONCHOSCOPY WITH BRONCHOALVEOLAR LAVAGE AND THERAPEUTIC ASPIRATION OF MUCOUS PLUG LEFT LUNG -07/11/20 CXR: Bilateral pulmonary edema/infiltrates. Possible small pleural effusions. Fever, recurrent- resolved Leukocytosis, recurrent; increased, now improving -09/[address] c/abd/p w/: Basilar pulmonary atelectasis and possibly patchy consolidation in the bilateral posterior lower lobes. Borderline cardiomegaly. Moderate right hydronephrosis and enlargement of the right kidney, despite apparent satisfactory position of a right nephroureteral stent. Possibility of stent dysfunction should be considered. Atrophic left kidney. Left nephroureteral stent in place, no hydronephrosis. Bilateral renal calyceal and parenchymal calcifications, also previously reported. Extensive chronic skeletal deformity, with evidence of spinal dysraphism, scoliosis, evidence of prior spinal fusion, and other abnormalities detailed above. Unusual round structure superior to the upper pole left kidney posterior to the spleen, also described previously and unchanged, possibly an area of fatty infarction, unusual adrenal lesion, or an unusual accessory splenule. This is also stable since 2017. There is extensive pelvic deformity. There is marked abnormal soft tissue surrounding the rectum. There is a tract extending posteriorly from the distal rectum. Uncertain as whether this represents an otherwise normal but unusually positioned anus versus a fistula tract. Correlate with clinical findings. Extensive chronic appearing pelvic decubitus changes, with evidence of chronicosseous destruction of the sacrum and coccyx, appearing unchanged from prior study 08/23/2018. Discontinuous ventriculoperitoneal shunt tubing is again demonstrated. 2.2 cm calcified right lower pole thyroid nodule. Consider thyroid sonography for further evaluation Minimal anterior wall pericardial thickening versus fluid. Recurrent hypoxic respiratory failure 2ry to above -sp intubation 07/31/19 and extubation 08/11/19 -s/p intubation 07/12/19 and extubation 07/19/19 UTI , recurrent R hydronephrosis -09/01 u/A wbc 10-15, nit neg, leuk +2; Ucx 40-50k yeast -08/21 u/a wbc tnct, nit neg, leuk large; ucx >100k PsA (I Cefepime, Levaquin ; S Imipenem, Cipro) -08/11 ucx C. parapsilosis (colinzer) - 07/12 Ucx PsA (R Ceftazidime, levaquin; I Ciprofloxacin; otherwise S), VRE ( S Amp, linezolid) -07/11/19 u/a wbc tntc, nit neg, leuk +3; ucx PsA, ESBL E.coli, P. mirabilis S. mitis bacteremia- likely contaminant -07/28 Bcx 07/26 S. mitis; 07/29, 08/01, 08/03 Bcx neg HTN Dm2 spina bifida s/p TECHNICAL SUPPORT CONSULTANT shunt decubitis ulcers wheelchair bound/paraplegic b/l renal stents neurogenic bladder s/p suprapubic catheter recurrent UTIs Plan: -Continue Meropenem #14/ and PO Cipro #12 (abx d #13/) -Continue IV Vancomycin #14/ for S. aureus PNA and CONS bacteremia -2/3 SP Amikacin #4 -/ SP Cefepime and Flagyl #3 -08/11 SP Linezolid and Meropenem #15 -08/06 SP Micafungin #4 -f/u cx -Monitor CBC/CMP, temperatures -aspiration precautions -GI, pulm f/u -speech therapy recommending PEG, family is refusing -f/u Bcx x2 (peripheral and pICC line), ucx -May need ADINA if recurrent bacteremia -URo eval Thank you for this consultation. Will continue to follow along with you. Subjective Allergies: Coded Allergies: LATEX (Verified Allergy, Severe, Rash on skin, 08/19/19) PENICILLIN G (Verified Allergy, Unknown, 12/02/18) Tolerates cabapenem, cephalosporin PENICILLINS (Unverified Allergy, Unknown, 12/02/18) Subjective Afebrile. Stable on 3L NC denies sob Objective Vital Signs Last 24 Hour Vital Signs Date Time Temp Pulse Resp B/P (MAP) Pulse Ox O2 Delivery O2 Flow Rate FiO2 09/06/19 06:00 88 16 113/72 (86) 100 09/06/19 05:00 91 24 118/71 (87) 100 09/06/19 04:00 97.4 94 22 120/78 (92) 100 09/06/19 04:00 3.0 09/06/19 04:00 Nasal Cannula 3.0 Nasal Cannula 3.0 Nasal Cannula 3.0 09/06/19 04:00 84 09/06/19 03:00 77 23 107/56 (73) 100 09/06/19 02:00 73 20 119/64 (82) 86 09/06/19 01:00 84 17 104/60 (75) 100 09/06/19 00:57 88 18 100 35 09/06/19 00:00 36.0 09/06/19 00:00 Nasal Cannula 3.0 Nasal Cannula 3.0 Nasal Cannula 3.0 09/06/19 00:00 98.8 83 15 94/60 (71) 93 09/06/19 00:00 91 09/05/19 23:30 92 17 100 Bi-Pap 35 94 19 100 09/05/19 23:00 90 20 124/72 (89) 09/05/19 22:00 36.0 09/05/19 22:00 91 19 115/67 (83) 99 09/05/19 21:00 98.4 94 23 123/76 (92) 09/05/19 20:00 3.0 09/05/19 20:00 101 19 113/76 (88) 100 09/05/19 20:00 Nasal Cannula 3.0 Nasal Cannula 3.0 Nasal Cannula 3.0 09/05/19 20:00 101 09/05/19 19:48 106 18 100 Nasal Cannula 3.0 32 102 18 96 09/05/19 19:48 96 Nasal Cannula 3.0 32 09/05/19 19:00 105 136/80 (98) 94 09/05/19 18:00 99 17 119/67 (84) 94 09/05/19 17:00 98 18 112/60 (77) 84 09/05/19 16:00 3.0 09/05/19 16:00 102 21 111/71 (84) 94 09/05/19 16:00 Nasal Cannula 3.0 Nasal Cannula 3.0 Nasal Cannula 3.0 09/05/19 15:37 100 09/05/19 15:00 96 20 114/68 (83) 100 09/05/19 14:58 84 22 100 Nasal Cannula 3.0 32 88 22 98 09/05/19 14:52 98 24 98 Nasal Cannula 3.0 32 09/05/19 14:00 100 21 101/59 (73) 94 09/05/19 13:00 94 17 97/51 (66) 96 09/05/19 12:00 99.2 97 18 105/66 (79) 97 09/05/19 12:00 Nasal Cannula 3.0 Nasal Cannula 3.0 09/05/19 12:00 3.0 09/05/19 11:56 96 09/05/19 11:18 94 20 100 Nasal Cannula 3.0 32 92 20 96 09/05/19 11:00 93 22 109/92 (98) 100 09/05/19 10:00 103 20 107/72 (84) 98 09/05/19 09:00 100 17 108/77 (87) 95 09/05/19 08:00 99.1 96 15 92/57 (69) 98 09/05/19 08:00 Nasal Cannula 3.0 Nasal Cannula 3.0 09/05/19 08:00 3.0 09/05/19 07:34 91 20 100 Nasal Cannula 3.0 32 88 22 99 09/05/19 07:21 95 09/05/19 07:05 99 Nasal Cannula 3.0 32 09/05/19 07:00 84 14 107/64 (78) Height (Feet): 4 Height (Inches): 10.00 Weight (Pounds): 127 Objective General Appearance: not in distress, awake EENT: normal ENT inspection Neck: supple Cardiovascular: normal rate Respiratory/Chest: decreased breath sounds Abdomen: normal bowel sounds, non tender, soft, non distended Extremities: non-tender Laboratory Tests Test 09/05/19 10:15 Vancomycin Level Trough 9.3 ug/mL (5.0-12.0) Current Medications Medications (Trade) Dose Ordered Sig/Sandeep Route PRN Reason Start Time Stop Time Status Last Admin Dose Admin Acetaminophen (Tylenol) 650 mg Q4H PRN NG Mild Pain/Temp > 100.5 08/22/19 10:30 09/21/19 10:29 08/30/19 20:18 Acetylcysteine (Mucomyst) 400 mg Q4HRT N 08/16/19 11:00 09/15/19 10:59 09/05/19 23:30 Albuterol/ Ipratropium (Albuterol/ Ipratropium) 3 ml Q4HRT HHN 09/01/19 23:00 09/06/19 22:59 09/05/19 23:30 Apixaban (Eliquis) 5 mg BID NGT 08/16/19 09:00 09/11/19 17:59 09/05/19 18:12 Ciprofloxacin (Cipro 500mg tab) 500 mg EVERY 12 HOURS NG 08/25/19 21:00 09/08/19 20:59 09/05/19 21:50 Divalproex Sodium (Depakote Sprinkles) 500 mg Q12HR NG 08/15/19 21:00 09/14/19 20:59 09/05/19 21:51 Meropenem 1 gm/ Sodium Chloride 55 ml @ 110 mls/hr Q8HR IVPB 08/23/19 14:00 09/06/19 23:59 09/06/19 06:03 Vancomycin HCl (Vanco rx to dose) 1 ea DAILY PRN MISC Per rx protocol 08/23/19 09:45 09/22/19 09:44 Vancomycin HCl 1 gm/Sodium Chloride 275 ml @ 183.333 mls/hr Q12HR IVPB 09/05/19 21:00 09/10/19 20:59 09/05/19 21:53 Clemente Sanchez MD Sep 06, 2019 07:00
[2019-09-06] MEDS: Albuterol/Ipratropium 3ml neb HHN SCH ×5 (07:04→22:50)
[2019-09-06] MEDS: Acetylcysteine 20% Soln 4ml HHN SCH ×5 (07:04→22:50)
--- NOTE | 2019-09-06 07:40 | NUR ---
HAND-OFF: Report given to jamie case using sbar.
--- NOTE | 2019-09-06 08:00 | NUR ---
NURSE NOTES: Received change of shift report from Lore CARTER. Pt is awake, alert, oriented to name, follows basic commands. Pt is currently on 3L of oxygen via nasal cannula with O2Sat fluctuating from 98-90%. Bilateral rhonchi noted with diminished lung sounds. NSR on bellows filler. Left foot peripheral IV access is present, TKO, patent/intact. Abdomen is large, round, soft, nontender to touch with hypoactive bowel sounds. Suprapubic catheter is present, draining, mildly cloudy/with sediments yellow urine. Skin has sacral/bilateral buttocks optifoam dressings, dry/intact. Pt is on P200, pressure releasing mattress, with bilateral extremities elevated on pillows. HOB elevated to 30degrees, bed locked, in lowest position, and three side rails up, call light within reach. Will continue with plan of care.
--- NOTE | 2019-09-06 10:00 | NUR ---
NURSE NOTES: Pt was fed breakfast, consumed 100% of meal. AM meds were administered. Pt was repositioned, oral care was done. VS remain stable.
[2019-09-06] MEDS: Depakote 125mg Sprinkles NG SCH ×2 (10:11→21:09)
[2019-09-06] MEDS: Vancomycin 1 GM in NS 275 ML IVPB SCH ×2 (10:12→21:08)
[2019-09-06] MEDS: Ciprofloxacin 500mg tab NG SCH ×2 (10:12→21:08)
[2019-09-06] MEDS: Eliquis 5mg tablet NGT SCH ×2 (10:12→18:51)
--- NOTE | 2019-09-06 12:00 | NUR ---
NURSE NOTES: Pt was seen by Dr Youngblood. No new orders were received at this time. Order is in place to transfer pt to [facility]. Awaiting for bed availability/placement. Pt is resting with stable VS. Pt was repositioned.
--- NOTE | 2019-09-06 14:00 | NUR ---
NURSE NOTES: Spoke with pt's next of kin/brother on the phone and updated on pt's status. Pt is currently asleep, with stable VS, and in no apparent distress.
--- NOTE | 2019-09-06 16:00 | NUR ---
NURSE NOTES: VS remain stable. Pt is afebrile. Pt was repositioned and in now watching TV. Denies any pain or discomfort at this time.
--- NOTE | 2019-09-06 18:00 | NUR ---
NURSE NOTES: Pt was cleaned, and repositioned. VS remain stable. Pt is watching TV, in no apparent distress, denies any pain or discomfort at this time.
--- NOTE | 2019-09-06 18:18 | Pulmonolgy Critical Care Note ---
Critical Care - Asmt/Plan Assessment/Plan: Pulmonary CCM Progress Note Assessment/Plan: (1) Pneumonia of both lower lobes Assessment & Plan: VDRF, intubated 07/12/19, S/P FOB 07/12/19; Reintubated ; extubated 08/11/19, currently NC O2, PRN BiPAP, remains stable (2) Catheter-associated urinary tract infection Assessment & Plan: PsA and proteus - s/p treatment, persistent Gr positive bacteremia (3) Respiratory failure with hypoxia Assessment & Plan: Acute on chronic hypercapnic and hypoxemic RF 2/2 PNA Duplex neg, minimally elevated d-dimer, unlikely VTE and already on a NOAC (4) HCAP (healthcare-associated pneumonia) (5) Paraplegia (6) Sepsis (7) Suprapubic catheter (8) Restrictive lung disease due to kyphoscoliosis (9) Decubitus skin ulcer (10) Spina bifida (11) Anemia, acute (12) hx recurrent PE on eliquis Plan: * monitor closely * respiratory care * NGT for feeds * ABG prn * DW PMD - consider LTACweek * BiPAP qhs and prn * High risk for recurrent respiratory failure and reintubation and discussed with the patiet's family previously * If gets reintubated, will need trach placement * holding abx * Good pulmonary hygiene: duonebs and mucomyst q4 * She had recurrent PE as outpatient. Cont AC and monitor H/H Respiratory: CXR, ABG PRN Cardiac: continue to monitor HR/BP Time Spent (Minutes): 45 Notes Reviewed: contract management specialist, cardio Discussed with: nurses, PMD Critical Care - Objective Vital Signs Noted Status: awake Lungs: CTA Heart: HS1, HS2, RRR Abdomen: soft, non-tender Extremities: mild edema Labs/Micro: noted Subjective: Less SOB, mainly on NC O2 still requiring frequent suctioning no fever no distress awake wears bipap at night and PRN Seen earlier Critical Care - Objective Last 24 Hour Vital Signs Date Time Temp Pulse Resp B/P (MAP) Pulse Ox O2 Delivery O2 Flow Rate FiO2 09/06/19 16:00 Nasal Cannula 3.0 Nasal Cannula 3.0 Nasal Cannula 3.0 09/06/19 16:00 98 13 109/55 (73) 97 09/06/19 16:00 3.0 09/06/19 15:21 96 16 100 Nasal Cannula 3.0 32 94 14 98 09/06/19 15:07 100 16 96/59 (71) 94 09/06/19 15:00 102 16 76/46 (56) 94 09/06/19 14:00 99 14 85/48 (60) 86 09/06/19 13:07 107 15 96/62 (73) 87 09/06/19 13:00 102 14 83/50 (61) 88 09/06/19 12:00 3.0 09/06/19 12:00 98.6 106 19 101/68 (79) 94 09/06/19 12:00 98 09/06/19 12:00 Nasal Cannula 3.0 Nasal Cannula 3.0 Nasal Cannula 3.0 09/06/19 11:08 85 17 100 Nasal Cannula 3.0 32 97 17 96 09/06/19 11:00 99 20 98/62 (74) 93 09/06/19 10:00 94 15 109/69 (82) 92 09/06/19 09:00 92 16 88/56 (67) 84 09/06/19 08:00 91 09/06/19 08:00 Nasal Cannula 3.0 Nasal Cannula 3.0 Nasal Cannula 3.0 09/06/19 08:00 98.3 94 20 108/75 (86) 88 09/06/19 08:00 3.0 09/06/19 07:07 85 17 100 Nasal Cannula 3.0 32 85 20 100 09/06/19 07:07 100 Nasal Cannula 3.0 32 09/06/19 07:00 86 25 113/67 (82) 100 09/06/19 06:00 88 16 113/72 (86) 100 09/06/19 05:00 91 24 118/71 (87) 100 09/06/19 04:00 97.4 94 22 120/78 (92) 100 09/06/19 04:00 3.0 09/06/19 04:00 Nasal Cannula 3.0 Nasal Cannula 3.0 Nasal Cannula 3.0 09/06/19 04:00 84 09/06/19 03:00 77 23 107/56 (73) 100 09/06/19 02:00 73 20 119/64 (82) 86 09/06/19 01:00 84 17 104/60 (75) 100 09/06/19 00:57 88 18 100 35 09/06/19 00:00 36.0 09/06/19 00:00 Nasal Cannula 3.0 Nasal Cannula 3.0 Nasal Cannula 3.0 09/06/19 00:00 98.8 83 15 94/60 (71) 93 09/06/19 00:00 91 09/05/19 23:30 92 17 100 Bi-Pap 35 94 19 100 09/05/19 23:00 90 20 124/72 (89) 09/05/19 22:00 36.0 09/05/19 22:00 91 19 115/67 (83) 99 09/05/19 21:00 98.4 94 23 123/76 (92) 09/05/19 20:00 3.0 09/05/19 20:00 101 19 113/76 (88) 100 09/05/19 20:00 Nasal Cannula 3.0 Nasal Cannula 3.0 Nasal Cannula 3.0 09/05/19 20:00 101 09/05/19 19:48 106 18 100 Nasal Cannula 3.0 32 102 18 96 09/05/19 19:48 96 Nasal Cannula 3.0 32 09/05/19 19:00 105 136/80 (98) 94 Accucheck: 114 Critical Care - Subjective ROS Limited/Unobtainable: No FI02: 32 Vent Support Breath Rate: 14 Vent Support Mode: BiLevel Vent Tidal Volume: 400 Sputum Amount: Small PEEP: 5.0 PIP: 22 I&O: Intake and Output 09/05/19 09/06/19 19:00 07:00 Intake Total 838.333 ml 385.000 ml Output Total 1150 ml 1480 ml Balance -311.667 ml -1095.000 ml Intake Oral 600 ml IV Total 238.333 ml 385.000 ml Output Urine Total 1150 ml 1480 ml # Bowel Movements 1 ET-Tube: 7.5 ET Position: 23 Perfecto Youngblood MD Sep 06, 2019 18:18
--- NOTE | 2019-09-06 18:27 | Internal Med Progress Note ---
Subjective Date of Service: Sep 06, 2019 Physician Name Niraj Teixeira Attending Physician Wil Masters MD Current Medications Medications (Trade) Dose Ordered Sig/Sandeep Route PRN Reason Start Time Stop Time Status Last Admin Dose Admin Acetaminophen (Tylenol) 650 mg Q4H PRN NG Mild Pain/Temp > 100.5 08/22/19 10:30 09/21/19 10:29 08/30/19 20:18 Acetylcysteine (Mucomyst) 400 mg Q4HRT HHN 08/16/19 11:00 09/15/19 10:59 09/06/19 15:21 Albuterol/ Ipratropium (Albuterol/ Ipratropium) 3 ml Q4HRT HHN 09/01/19 23:00 09/06/19 22:59 09/06/19 15:21 Apixaban (Eliquis) 5 mg BID NGT 08/16/19 09:00 09/11/19 17:59 09/06/19 10:12 Ciprofloxacin (Cipro 500mg tab) 500 mg EVERY 12 HOURS NG 08/25/19 21:00 09/08/19 20:59 09/06/19 10:12 Divalproex Sodium (Depakote Sprinkles) 500 mg Q12HR NG 08/15/19 21:00 09/14/19 20:59 09/06/19 10:11 Meropenem 1 gm/ Sodium Chloride 55 ml @ 110 mls/hr Q8HR IVPB 08/23/19 14:00 09/06/19 23:59 09/06/19 15:10 Vancomycin HCl (Vanco rx to dose) 1 ea DAILY PRN MISC Per rx protocol 09/06/19 07:00 09/06/19 23:55 Vancomycin HCl 1 gm/Sodium Chloride 275 ml @ 183.333 mls/hr Q12HR IVPB 09/05/19 21:00 09/10/19 20:59 09/06/19 10:12 Allergies: Coded Allergies: LATEX (Verified Allergy, Severe, Rash on skin, 08/19/19) PENICILLIN G (Verified Allergy, Unknown, 12/02/18) Tolerates cabapenem, cephalosporin PENICILLINS (Unverified Allergy, Unknown, 12/02/18) ROS Limited/Unobtainable: Yes Subjective 49 YO F with pneumonia and respiratory failure. Extubated 1/20/20. Cover for Int Med-DR Masters. ICU. Objective Last Vital Signs Date Time Temp Pulse Resp B/P (MAP) Pulse Ox O2 Delivery O2 Flow Rate FiO2 09/06/19 16:00 Nasal Cannula 3.0 Nasal Cannula 3.0 Nasal Cannula 3.0 09/06/19 16:00 98 13 109/55 (73) 97 09/06/19 15:21 32 09/06/19 12:00 98.6 Intake and Output 09/05/19 09/06/19 19:00 07:00 Intake Total 838.333 ml 385.000 ml Output Total 1150 ml 1480 ml Balance -311.667 ml -1095.000 ml Intake Oral 600 ml IV Total 238.333 ml 385.000 ml Output Urine Total 1150 ml 1480 ml # Bowel Movements 1 Objective General Appearance: WD/WN, moderate distress EENT: PERRL/EOMI, normal ENT inspection Neck: non-tender, normal alignment, supple Cardiovascular: normal peripheral pulses, normal rate, regular rhythm, no gallop/murmur, no JVD Respiratory/Chest: Nasal canula; crackles/rales, rhonchi - bilaterally, expiratory wheezing Abdomen: normal bowel sounds, non tender, soft, no organomegaly, no mass Skin: normal pigmentation, warm/dry Assessment/Plan Problem List: (1) Respiratory failure with hypoxia Assessment & Plan: Tolerating venturi mask. S/P extubation 08/11/19 per pulmonary=Dr Bonilla (2) Pneumonia of both lower lobes Assessment & Plan: See ID note. Continue meropenem and vanco. (3) UTI (urinary tract infection) Assessment & Plan: Pseudamonas, ESBL E. Coli, and vanco resistant enterococcus. See ID note; Dr Sanabria signed off. Await new ID consult= Dr Buck/Milly. S/P meropenem, linezolid and micafugin (4) Sepsis (5) Paraplegia (6) Spina bifida Assessment/Plan Discharge plan: Family refused [facility]. See discharge planning note Niraj Teixeira MD Sep 06, 2019 18:27
--- NOTE | 2019-09-06 19:33 | NUR ---
HAND-OFF: Report given to Lore CARTER. Endorsed plan of care.
--- NOTE | 2019-09-06 20:00 | NUR ---
NURSE NOTES: received pt report from jamie case pt awake and alert response to command no c/o pain or sob on 3l n/c o2 sat 100 o/o feed her dinner and consumed 100 o/o iv infusing tko at left foot good urinary output reposition and suction family at bedside
--- NOTE | 2019-09-06 22:00 | NUR ---
NURSE NOTES: ON BI-PAP 06/28 RATE 14 40 %FIO2
[2019-09-07] VITALS (14 sets, daily range): BP systolic 90–136; BP diastolic 56–81
--- NOTE | 2019-09-07 | NUR ---
NURSE NOTES: ASLEEP REPOSITION AND SUCTION
--- NOTE | 2019-09-07 02:00 | NUR ---
NURSE NOTES: KEEP TAKING OFF BI-PAP CHANGE TO 3L N/C 02 SAT 99% NO ACUTE DISTRESS NOTED
[2019-09-07] MEDS: Acetylcysteine 20% Soln 4ml HHN SCH ×6 (03:00→23:00)
--- NOTE | 2019-09-07 04:00 | NUR ---
NURSE NOTES:BED BATH ORAL CARE WOUND CARE DONE
--- NOTE | 2019-09-07 06:00 | NUR ---
NURSE NOTES: asleep no acute resp distress noted
--- NOTE | 2019-09-07 07:17 | NUR ---
HAND-OFF: Report given to jamie case using s bar.
[2019-09-07 07:36] LABS: BASOPHILS % (AUTO) 0.8 % (0.0-2.0); EOSINOPHILS % (AUTO) 2.4 % (0.0-3.0); HEMATOCRIT 29.4 % (37.0-47.0); HEMOGLOBIN 9.7 G/DL (12.0-16.0); LYMPHOCYTES % (AUTO) 17.9 % (20.0-45.0); MEAN CORPUSCULAR VOLUME 78 FL (80-99); MONOCYTES % (AUTO) 3.8 % (1.0-10.0); NEUTROPHILS % (AUTO) 75.1 % (45.0-75.0); PLATELET COUNT 305 K/UL (150-450); RED BLOOD COUNT 3.78 M/UL (4.20-5.40); RED CELL DISTRIBUTION WIDTH 20.5 % (11.6-14.8)
--- NOTE | 2019-09-07 08:00 | NUR ---
NURSE NOTES: Received change of shift report from Lore CARTER. Pt is awake, alert, oriented to name, able to follow basic commands. Pt is currently on 3L of oxygen via nasal cannula at 100% O2Sat with bilateral rhonchi and diminished lung sounds on auscultation. NSR on surveillance system monitor. Temp 98.8F axillary. Peripheral IV access #20G, saline locked. Pt has suprapubic catheter, draining yellow urine with sediments. Skin has sacral and buttocks pressure healing/wounds covered with optifoam dressings, dry/intact. Pt is on P200 pressure releasing mattress with bilateral extremities elevated on pillows. HOB is at 30degrees, three side rails up, bed locked, and call light is placed within easy reach. Will continue to monitor pt and follow plan of care.
[2019-09-07 08:22] LABS: ANION GAP 10 mmol/L (5-15); BLOOD UREA NITROGEN 12 mg/dL (7-18); CARBON DIOXIDE 29 MMOL/L (21-32); CHLORIDE 102 MMOL/L (98-107); CREATININE 0.3 MG/DL (0.55-1.30); POTASSIUM 3.9 MMOL/L (3.5-5.1); SODIUM 141 MMOL/L (136-145)
[2019-09-07] MEDS: Ciprofloxacin 500mg tab NG SCH ×2 (09:19→20:27)
[2019-09-07] MEDS: Depakote 125mg Sprinkles NG SCH ×2 (09:19→20:27)
[2019-09-07] MEDS: Eliquis 5mg tablet NGT SCH ×2 (09:19→17:21)
--- NOTE | 2019-09-07 10:00 | NUR ---
NURSE NOTES: AM meds were administered. Pt was fed breakfast, consumed 100% of meal. VS remain stable. Pt will now be transferred to [facility] per MD order.
--- NOTE | 2019-09-07 10:10 | NUR ---
TRANSFER TO FLOOR: Patient transferred to [facility] per MD order. Tele monitor was placed on pt. Hand off report was given to Lucila CARTER. Pt's belonging's list was checked and signed with the receiving nurse in front of the pt. Pt was transferred with stable VS. Endorsed plan of care.
--- NOTE | 2019-09-07 10:15 | NUR ---
NURSE NOTES: Received patient via hospital bed, bedside report received from EMMA Aguilera. Patient receiving oxygen via NC at 4LPM. No respiratory distress noted at this time. Placed on ekg monitor, shows SR with HR of 92. IV on left foot noted, intact, patent, and asymptomatic. Suprapubic catheter intact, draining well to gravity. Bed locked, alarmed, and in lowest position, side rails up x3, and call light left within reach. All needs attended to. Will continue plan of care and will continue to monitor patient.
[2019-09-07] MEDS ORDERED: NS 275ml ONE ×2 (10:22→10:29)
[2019-09-07] MEDS ORDERED: Tubing IV Secondary IV ONE (10:29)
[2019-09-07] MEDS ORDERED: Acetaminophen 650mg/20.3ml NG PRN (10:30)
[2019-09-07] MEDS ORDERED: Albuterol/Ipratropium 3ml neb HHN SCH (11:00)
--- NOTE | 2019-09-07 11:27 | NUR ---
NURSE NOTES: Spoke with patient's brother, Quinn via telephone, informed and made aware of patient's transfer from ICU to SDU. Will continue to monitor patient.
[2019-09-07] MEDS: Albuterol/Ipratropium 3ml neb HHN SCH ×4 (12:05→23:28)
--- NOTE | 2019-09-07 16:40 | Internal Med Progress Note ---
Subjective Date of Service: Sep 07, 2019 Physician Name Niraj Teixeira Attending Physician Wil Masters MD Current Medications Medications (Trade) Dose Ordered Sig/Sandeep Route PRN Reason Start Time Stop Time Status Last Admin Dose Admin Acetaminophen (Tylenol) 650 mg Q4H PRN NG Mild Pain/Temp > 100.5 09/07/19 10:30 09/21/19 10:29 Acetylcysteine (Mucomyst) 400 mg Q4HRT N 09/07/19 11:00 09/15/19 10:59 09/07/19 15:00 Albuterol/ Ipratropium (Albuterol/ Ipratropium) 3 ml Q4HRT N 09/07/19 11:00 09/12/19 10:59 09/07/19 15:57 Apixaban (Eliquis) 5 mg BID NGT 09/07/19 18:00 09/11/19 17:59 Ciprofloxacin (Cipro 500mg tab) 500 mg EVERY 12 HOURS NG 09/07/19 21:00 09/08/19 20:59 Divalproex Sodium (Depakote Sprinkles) 500 mg Q12HR NG 09/07/19 21:00 09/14/19 20:59 Allergies: Coded Allergies: LATEX (Verified Allergy, Severe, Rash on skin, 08/19/19) PENICILLIN G (Verified Allergy, Unknown, 12/02/18) Tolerates cabapenem, cephalosporin PENICILLINS (Unverified Allergy, Unknown, 12/02/18) ROS Limited/Unobtainable: Yes Subjective 49 YO F with pneumonia and respiratory failure. Extubated 08/11/19. Cover for Int Med-DR Masters. [facility]. Objective Last Vital Signs Date Time Temp Pulse Resp B/P (MAP) Pulse Ox O2 Delivery O2 Flow Rate FiO2 09/07/19 16:00 3.0 09/07/19 16:00 Nasal Cannula Nasal Cannula Nasal Cannula 09/07/19 15:57 93 18 100 32 90 20 100 09/07/19 12:00 98.0 122/81 (95) Laboratory Tests Test 09/06/19 20:00 09/07/19 06:13 Vancomycin Level Trough 17.1 ug/mL (5.0-12.0) H White Blood Count 13.0 K/UL (4.8-10.8) H Red Blood Count 3.78 M/UL (4.20-5.40) L Hemoglobin 9.7 G/DL (12.0-16.0) L Hematocrit 29.4 % (37.0-47.0) L Mean Corpuscular Volume 78 FL (80-99) L Mean Corpuscular Hemoglobin 25.8 PG (27.0-31.0) L Mean Corpuscular Hemoglobin Concent 33.2 G/DL (32.0-36.0) Red Cell Distribution Width 20.5 % (11.6-14.8) H Platelet Count 305 K/UL (150-450) Mean Platelet Volume 6.0 FL (6.5-10.1) L Neutrophils (%) (Auto) 75.1 % (45.0-75.0) H Lymphocytes (%) (Auto) 17.9 % (20.0-45.0) L Monocytes (%) (Auto) 3.8 % (1.0-10.0) Eosinophils (%) (Auto) 2.4 % (0.0-3.0) Basophils (%) (Auto) 0.8 % (0.0-2.0) Sodium Level 141 MMOL/L (136-145) Potassium Level 3.9 MMOL/L (3.5-5.1) Chloride Level 102 MMOL/L (98-107) Carbon Dioxide Level 29 MMOL/L (21-32) Anion Gap 10 mmol/L (5-15) Blood Urea Nitrogen 12 mg/dL (7-18) Creatinine 0.3 MG/DL (0.55-1.30) L Estimat Glomerular Filtration Rate > 60 mL/min (>60) Glucose Level 88 MG/DL (74-106) Calcium Level 9.0 MG/DL (8.5-10.1) Intake and Output 09/06/19 09/07/19 19:00 07:00 Intake Total 716.666 ml 580.000 ml Output Total 1330 ml 1250 ml Balance -613.334 ml -670.000 ml Intake Oral 240 ml 250 ml IV Total 476.666 ml 330.000 ml Output Urine Total 1330 ml 1250 ml # Bowel Movements 1 Objective General Appearance: WD/WN, moderate distress EENT: PERRL/EOMI, normal ENT inspection Neck: non-tender, normal alignment, supple Cardiovascular: normal peripheral pulses, normal rate, regular rhythm, no gallop/murmur, no JVD Respiratory/Chest: Nasal canula; crackles/rales, rhonchi - bilaterally, expiratory wheezing Abdomen: normal bowel sounds, non tender, soft, no organomegaly, no mass Skin: normal pigmentation, warm/dry Assessment/Plan Problem List: (1) Respiratory failure with hypoxia Assessment & Plan: Tolerating venturi mask. S/P extubation 08/11/19 per pulmonary=Dr Bonilla (2) Pneumonia of both lower lobes Assessment & Plan: See ID note. Continue meropenem and vanco. (3) UTI (urinary tract infection) Assessment & Plan: Pseudamonas, ESBL E. Coli, and vanco resistant enterococcus. See ID note; Dr Sanabria signed off. Await new ID consult= Dr Buck/Milly. S/P meropenem, linezolid and micafugin (4) Sepsis (5) Paraplegia (6) Spina bifida Assessment/Plan Discharge plan: Family refused [facility]. See discharge planning note Niraj Teixeira MD Sep 07, 2019 16:40
--- NOTE | 2019-09-07 17:05 | Pulmonolgy Critical Care Note ---
Critical Care - Asmt/Plan Assessment/Plan: Pulmonary CCM Progress Note Assessment/Plan: (1) Pneumonia of both lower lobes Assessment & Plan: VDRF, intubated 07/12/19, S/P FOB 07/12/19; Reintubated ; extubated 08/11/19, currently NC O2, PRN BiPAP, remains stable (2) Catheter-associated urinary tract infection Assessment & Plan: PsA and proteus - s/p treatment, persistent Gr positive bacteremia, WCC remains elevated (3) Respiratory failure with hypoxia Assessment & Plan: Acute on chronic hypercapnic and hypoxemic RF 2/2 PNA Duplex neg, minimally elevated d-dimer, unlikely VTE and already on a NOAC (4) HCAP (healthcare-associated pneumonia) (5) Paraplegia (6) Sepsis (7) Suprapubic catheter (8) Restrictive lung disease due to kyphoscoliosis (9) Decubitus skin ulcer (10) Spina bifida (11) Anemia, acute (12) hx recurrent PE on eliquis Plan: * monitor closely * respiratory care * NGT for feeds * ABG prn * DW PMD - consider LTACweek * BiPAP qhs and prn * High risk for recurrent respiratory failure and reintubation and discussed with the patiet's family previously * If gets reintubated, will need trach placement * holding abx * Good pulmonary hygiene: duonebs and mucomyst q4 * She had recurrent PE as outpatient. Cont AC and monitor H/H Respiratory: CXR, ABG PRN Cardiac: continue to monitor HR/BP Time Spent (Minutes): 45 Notes Reviewed: immigration lawyer, cardio Discussed with: nurses, PMD Critical Care - Objective Vital Signs Noted Status: awake Lungs: CTA Heart: HS1, HS2, RRR Abdomen: soft, non-tender Extremities: mild edema Labs/Micro: noted Subjective: Less SOB, mainly on NC O2 still requiring frequent suctioning no fever no distress awake wears bipap at night and PRN Seen earlier Critical Care - Objective Last 24 Hour Vital Signs Date Time Temp Pulse Resp B/P (MAP) Pulse Ox O2 Delivery O2 Flow Rate FiO2 09/07/19 16:00 3.0 09/07/19 16:00 Nasal Cannula 3.0 Nasal Cannula 3.0 Nasal Cannula 3.0 09/07/19 15:57 93 18 100 Nasal Cannula 3.0 32 90 20 100 09/07/19 12:00 Nasal Cannula 3.0 Nasal Cannula 3.0 Nasal Cannula 3.0 09/07/19 12:00 98.0 61 22 122/81 (95) 100 09/07/19 12:00 3.0 09/07/19 11:55 99 20 100 Nasal Cannula 3.0 32 98 22 97 09/07/19 11:49 89 09/07/19 10:27 91 09/07/19 10:00 90 17 100/70 (80) 100 09/07/19 09:00 91 14 104/71 (82) 100 09/07/19 09:00 98.8 92 17 104/71 (82) 100 09/07/19 08:00 3.0 09/07/19 08:00 81 18 95/61 (72) 96 09/07/19 08:00 3.0 09/07/19 08:00 81 09/07/19 08:00 Nasal Cannula 3.0 Nasal Cannula 3.0 Nasal Cannula 3.0 09/07/19 07:26 100 Nasal Cannula 3.0 32 09/07/19 07:00 81 19 97/63 (74) 84 09/07/19 06:00 99.0 79 16 101/59 (73) 84 09/07/19 05:00 86 21 101/65 (77) 97 09/07/19 04:00 3.0 09/07/19 04:00 Nasal Cannula 3.0 Nasal Cannula 3.0 Nasal Cannula 3.0 09/07/19 04:00 85 20 100/56 (71) 100 09/07/19 04:00 78 09/07/19 03:00 86 18 97/64 (75) 100 09/07/19 02:00 85 22 105/64 (78) 100 09/07/19 01:10 94 19 100 35 09/07/19 01:00 88 22 102/69 (80) 99 09/07/19 00:00 Nasal Cannula 3.0 Nasal Cannula 3.0 Nasal Cannula 3.0 09/07/19 00:00 36.0 09/07/19 00:00 98.6 87 16 90/59 (69) 100 09/07/19 00:00 97 09/06/19 23:16 93 18 100 35 09/06/19 23:00 91 17 115/92 (100) 99 09/06/19 22:51 94 22 100 Nasal Cannula 3.0 32 96 24 99 09/06/19 22:00 100 20 112/74 (87) 85 09/06/19 22:00 36.0 09/06/19 21:00 101 21 100/64 (76) 96 09/06/19 20:00 98.4 96 21 120/98 (105) 95 09/06/19 20:00 3.0 09/06/19 20:00 98 09/06/19 20:00 Nasal Cannula 3.0 Nasal Cannula 3.0 Nasal Cannula 3.0 09/06/19 19:21 100 Nasal Cannula 3.0 32 09/06/19 19:21 88 22 100 Nasal Cannula 3.0 32 89 24 100 09/06/19 19:00 94 15 111/77 (88) 97 09/06/19 18:00 94 23 118/74 (89) 99 Accucheck: 114 Critical Care - Subjective ROS Limited/Unobtainable: Yes Condition: stable EKG Rhythm: Sinus Rhythm FI02: 32 Vent Support Breath Rate: 14 Vent Support Mode: BiLevel Vent Tidal Volume: 400 Sputum Amount: Small PEEP: 5.0 PIP: 22 I&O: Intake and Output 09/06/19 09/07/19 19:00 07:00 Intake Total 716.666 ml 580.000 ml Output Total 1330 ml 1250 ml Balance -613.334 ml -670.000 ml Intake Oral 240 ml 250 ml IV Total 476.666 ml 330.000 ml Output Urine Total 1330 ml 1250 ml # Bowel Movements 1 ET-Tube: 7.5 ET Position: 23 Perfecto Youngblood MD Sep 07, 2019 17:05
--- NOTE | 2019-09-07 19:15 | NUR ---
HAND-OFF: Report given to EMMA Hays. Endorsed plan of care. Patient in stable condition.
--- NOTE | 2019-09-07 19:30 | NUR ---
NURSE NOTES: Received report from EMMA Gaytan. Pt is resting on the bed and awake and confused. On O2 3L via nasal cannula and SaO2 95% noted. On tele monitor with SR. Iv site intact and no sign of infiltration noted. Pt has Supra pubic cath and drainage well. Repositioned. Placed fall precaution. Will continue to care plan.
[2019-09-08] VITALS: BP 122/70
[2019-09-08] MEDS: Albuterol/Ipratropium 3ml neb HHN SCH ×6 (03:00→23:31)
[2019-09-08] MEDS: Acetylcysteine 20% Soln 4ml HHN SCH ×6 (03:00→23:30)
[2019-09-08 04:00] VITALS: BP 119/57
--- NOTE | 2019-09-08 07:05 | NUR ---
NURSE NOTES: Received report from Lis Amaro RN. Observed patient in bed, asleep, opens eyes to verbal stimuli. Patient receiving oxygen via NC at 4LPM, patient is saturating 97%. No respiratory distress noted at this time. bus driver/monitor, shows SR with HR of 82. IV on the left foot noted, intact, patent, and asymptomatic. Suprapubic catheter intact, draining well to gravity with pale yellow urine output noted. No apparent signs of pain/discomfort at this time. Bed locked, alarmed, and in lowest position, side rails up x3, and call light left within reach. All needs attended to. Will continue plan of care and will continue to monitor patient.
--- NOTE | 2019-09-08 07:10 | NUR ---
HAND-OFF: Report given to EMMA Gaytan. Pt is sleeping on the bed and no sign of acute distress noted.
[2019-09-08 08:00] VITALS: BP 118/58
[2019-09-08] MEDS: Depakote 125mg Sprinkles NG SCH ×2 (08:47→21:59)
[2019-09-08] MEDS: Ciprofloxacin 500mg tab NG SCH (08:48)
[2019-09-08] MEDS: Eliquis 5mg tablet NGT SCH ×2 (08:48→17:20)
--- NOTE | 2019-09-08 08:53 | Pulmonology Progress Note ---
Assessment/Plan Assessment/Plan 1) Pneumonia of both lower lobes - improved (2) Respiratory failure with hypoxia - improved (3) UTI (urinary tract infection) - improved (4) Paraplegia (5) Restrictive lung disease due to kyphoscoliosis (6) Pulmonary edema (7) Spina bifida Assessment/Plan Nasal cannula as tolerated, wean Check ABG to assess nocturnal BIPAP need PO intake as tolerated Duonebs and mucomyst q4 Chest PT suction as needed DVT Px: Eliquis FC d/c planning Subjective ROS Limited/Unobtainable: Yes Interval Events: transferred out of ICU. Was off BiPAP overnight. Less secretions. PO ok Allergies: Coded Allergies: LATEX (Verified Allergy, Severe, Rash on skin, 08/19/19) PENICILLIN G (Verified Allergy, Unknown, 12/02/18) Tolerates cabapenem, cephalosporin PENICILLINS (Unverified Allergy, Unknown, 12/02/18) All Systems: reviewed and negative except above Objective Last 24 Hour Vital Signs Date Time Temp Pulse Resp B/P (MAP) Pulse Ox O2 Delivery O2 Flow Rate FiO2 09/08/19 08:00 3.0 09/08/19 08:00 Nasal Cannula 3.0 Nasal Cannula 3.0 Nasal Cannula 3.0 09/08/19 08:00 97.7 98 20 118/58 (78) 98 09/08/19 07:17 82 20 100 Nasal Cannula 3.0 32 80 20 100 09/08/19 07:16 100 Nasal Cannula 3.0 32 09/08/19 04:00 97.8 86 20 119/57 (77) 98 09/08/19 04:00 Nasal Cannula 3.0 Nasal Cannula 3.0 Nasal Cannula 3.0 09/08/19 04:00 85 09/08/19 04:00 3.0 09/08/19 02:59 89 18 100 Nasal Cannula 3.0 32 88 20 96 09/08/19 00:00 3.0 09/08/19 00:00 98 09/08/19 00:00 97.7 94 20 122/70 (87) 98 09/08/19 00:00 Nasal Cannula 3.0 Nasal Cannula 3.0 Nasal Cannula 3.0 09/07/19 23:30 98 20 100 35 09/07/19 23:30 98 18 100 Nasal Cannula 3.0 32 99 20 98 09/07/19 20:00 102 2/16/20 20:00 98.7 104 20 136/60 (85) 97 09/07/19 20:00 Nasal Cannula 3.0 Nasal Cannula 3.0 Nasal Cannula 3.0 09/07/19 20:00 3.0 09/07/19 19:48 100 Nasal Cannula 3.0 32 09/07/19 19:48 98 18 100 Nasal Cannula 3.0 32 101 20 99 09/07/19 16:00 98.8 101 21 122/81 (95) 100 09/07/19 16:00 3.0 09/07/19 16:00 Nasal Cannula 3.0 Nasal Cannula 3.0 Nasal Cannula 3.0 09/07/19 15:57 93 18 100 Nasal Cannula 3.0 32 90 20 100 09/07/19 15:24 98 09/07/19 12:00 Nasal Cannula 3.0 Nasal Cannula 3.0 Nasal Cannula 3.0 09/07/19 12:00 98.0 61 22 122/81 (95) 100 09/07/19 12:00 3.0 09/07/19 11:55 99 20 100 Nasal Cannula 3.0 32 98 22 97 09/07/19 11:49 89 09/07/19 10:27 91 09/07/19 10:00 90 17 100/70 (80) 100 09/07/19 09:00 91 14 104/71 (82) 100 09/07/19 09:00 98.8 92 17 104/71 (82) 100 Intake and Output 09/07/19 09/08/19 19:00 07:00 Intake Total 1040 ml 500 ml Output Total 870 ml 110 ml Balance 170 ml 390 ml Intake Oral 1040 ml 500 ml Output Urine Total 870 ml 110 ml # Bowel Movements 2 General Appearance: no acute distress HEENT: normocephalic, mucous membranes moist Respiratory/Chest: lungs clear Cardiovascular: normal rate, regular rhythm Abdomen: soft, non tender Neurologic/Psychiatric: alert Current Medications Medications (Trade) Dose Ordered Sig/Sandeep Route PRN Reason Start Time Stop Time Status Last Admin Dose Admin Acetaminophen (Tylenol) 650 mg Q4H PRN NG Mild Pain/Temp > 100.5 09/07/19 10:30 09/21/19 10:29 Acetylcysteine (Mucomyst) 400 mg Q4HRT HHN 09/07/19 11:00 09/15/19 10:59 09/08/19 06:57 Albuterol/ Ipratropium (Albuterol/ Ipratropium) [address] [facility] 09/07/19 11:00 09/12/19 10:59 09/08/19 06:56 Apixaban (Eliquis) 5 mg BID NGT 09/07/19 18:00 09/11/19 17:59 09/08/19 08:48 Ciprofloxacin (Cipro 500mg tab) 500 mg EVERY 12 HOURS 09/07/19 21:00 09/08/19 20:59 09/08/19 08:48 Divalproex Sodium (Depakote Sprinkles) 500 mg Q12HR 09/07/19 21:00 09/14/19 20:59 09/08/19 08:47 Walker Bonilla MD Sep 08, 2019 08:53
--- NOTE | 2019-09-08 09:03 | General Progress Note ---
Assessment/Plan Problem List: (1) Spina bifida ICD Codes: Q05.9 - Spina bifida, unspecified SNOMED: 73410661 Qualifiers: Qualified Codes: Q05.4 - Unspecified spina bifida with hydrocephalus (2) Respiratory failure with hypoxia ICD Codes: J96.91 - Respiratory failure, unspecified with hypoxia SNOMED: 86745003339741750 Qualifiers: Qualified Codes: J96.21 - Acute and chronic respiratory failure with hypoxia (3) Dysphagia ICD Codes: R13.10 - Dysphagia, unspecified SNOMED: 85082006, 242577543 (4) UTI (urinary tract infection) ICD Codes: N39.0 - Urinary tract infection, site not specified SNOMED: 93765289, 368058198 Qualifiers: Qualified Codes: N30.00 - Acute cystitis without hematuria (5) Paraplegia ICD Codes: G82.20 - Paraplegia, unspecified SNOMED: 10102362 (6) Anemia ICD Codes: D64.9 - Anemia, unspecified SNOMED: 475482913 Status: unchanged Assessment/Plan: ppi repeat labs fu H&H stool ob neg x1 reglan passed swallow eval tolerating diet abx per ID fu pulm recs CT reviewed will fu Subjective ROS Limited/Unobtainable: No Allergies: Coded Allergies: LATEX (Verified Allergy, Severe, Rash on skin, 08/19/19) PENICILLIN G (Verified Allergy, Unknown, 12/02/18) Tolerates cabapenem, cephalosporin PENICILLINS (Unverified Allergy, Unknown, 12/02/18) Objective Last 24 Hour Vital Signs Date Time Temp Pulse Resp B/P (MAP) Pulse Ox O2 Delivery O2 Flow Rate FiO2 09/08/19 08:00 3.0 09/08/19 08:00 Nasal Cannula 3.0 Nasal Cannula 3.0 Nasal Cannula 3.0 09/08/19 08:00 97.7 98 20 118/58 (78) 98 09/08/19 07:17 82 20 100 Nasal Cannula 3.0 32 80 20 100 09/08/19 07:16 100 Nasal Cannula 3.0 32 09/08/19 04:00 97.8 86 20 119/57 (77) 98 09/08/19 04:00 Nasal Cannula 3.0 Nasal Cannula 3.0 Nasal Cannula 3.0 09/08/19 04:00 85 09/08/19 04:00 3.0 09/08/19 02:59 89 18 100 Nasal Cannula 3.0 32 88 20 96 09/08/19 00:00 3.0 09/08/19 00:00 98 09/08/19 00:00 97.7 94 20 122/70 (87) 98 09/08/19 00:00 Nasal Cannula 3.0 Nasal Cannula 3.0 Nasal Cannula 3.0 09/07/19 23:30 98 20 100 35 09/07/19 23:30 98 18 100 Nasal Cannula 3.0 32 99 20 98 09/07/19 20:00 102 09/07/19 20:00 98.7 104 20 136/60 (85) 97 09/07/19 20:00 Nasal Cannula 3.0 Nasal Cannula 3.0 Nasal Cannula 3.0 09/07/19 20:00 3.0 09/07/19 19:48 100 Nasal Cannula 3.0 32 09/07/19 19:48 98 18 100 Nasal Cannula 3.0 32 101 20 99 09/07/19 16:00 98.8 101 21 122/81 (95) 100 09/07/19 16:00 3.0 09/07/19 16:00 Nasal Cannula 3.0 Nasal Cannula 3.0 Nasal Cannula 3.0 09/07/19 15:57 93 18 100 Nasal Cannula 3.0 32 90 20 100 09/07/19 15:24 98 09/07/19 12:00 Nasal Cannula 3.0 Nasal Cannula 3.0 Nasal Cannula 3.0 09/07/19 12:00 98.0 61 22 122/81 (95) 100 09/07/19 12:00 3.0 09/07/19 11:55 99 20 100 Nasal Cannula 3.0 32 98 22 97 09/07/19 11:49 89 09/07/19 10:27 91 09/07/19 10:00 90 17 100/70 (80) 100 Intake and Output 09/07/19 09/08/19 19:00 07:00 Intake Total 1040 ml 500 ml Output Total 870 ml 110 ml Balance 170 ml 390 ml Intake Oral 1040 ml 500 ml Output Urine Total 870 ml 110 ml # Bowel Movements 2 Height (Feet): 4 Height (Inches): 10.00 Weight (Pounds): 128 General Appearance: no apparent distress EENT: normal ENT inspection Neck: supple Cardiovascular: normal rate Respiratory/Chest: decreased breath sounds Abdomen: normal bowel sounds, non tender, soft Extremities: non-tender Tmi Davis MD Sep 08, 2019 09:02
--- NOTE | 2019-09-08 10:37 | NUR ---
NURSE NOTES: Acute Dialysis Nurse and charge nurse was notified by RT Vitale about ABG results. Called and left message for Dr Bonilla regarding ABG results. Awaiting for call back.
--- NOTE | 2019-09-08 10:41 | NUR ---
NURSE NOTES: Spoke with Dr Pearson, covering doctor, notified and made aware of ABG results; no new orders received at this time. Will continue to monitor.
[2019-09-08 12:00] VITALS: BP 115/54
--- NOTE | 2019-09-08 12:19 | Infectious Diseases Prog Note ---
Assessment/Plan Assessment/Plan Assessment: Sepsis Persistent Gram positive bacteremia- suspect PICC line infection- persist despite removal picc line- - Bcx Neg 2d echo: no vegetations noted -08/27 PICC line removed; cath tip cx Neg Bcx 1/4 S. epi -08/22 Bcx 2/4 S.epi; 2/ bcx Picc NTD, peripheral CONS Recurrent aspiration pneumonia -08/29 video swallow: Positive for penetration of thin, honey thick, nectar thick liquid barium. -08/25 CXR:Suspicion of slightly worsening CHF -08/22 cXR: Possible mild pulmonary vascular congestion. No change from the prior study -08/21 sp cx S. aureus, MDR PsA (S Amikacin, Cipro/levo; R Cefepime, Meropenem) -08/18 cXR: The lungs remain clear. There may be some minimal basal atelectasis -08/14 CXR: Cardiomegaly. Mild interstitial congestion, unchanged over 3 days -07/31, 08/01 sp cx normal resp sunny -07/12 sp cx normal -07/12 SP FLEXIBLE FIBEROPTIC BRONCHOSCOPY WITH BRONCHOALVEOLAR LAVAGE AND THERAPEUTIC ASPIRATION OF MUCOUS PLUG LEFT LUNG -07/11/20 CXR: Bilateral pulmonary edema/infiltrates. Possible small pleural effusions. Fever, recurrent- resolved Leukocytosis, recurrent; increased, now improving -09/[address] c/abd/p w/: Basilar pulmonary atelectasis and possibly patchy consolidation in the bilateral posterior lower lobes. Borderline cardiomegaly. Moderate right hydronephrosis and enlargement of the right kidney, despite apparent satisfactory position of a right nephroureteral stent. Possibility of stent dysfunction should be considered. Atrophic left kidney. Left nephroureteral stent in place, no hydronephrosis. Bilateral renal calyceal and parenchymal calcifications, also previously reported. Extensive chronic skeletal deformity, with evidence of spinal dysraphism, scoliosis, evidence of prior spinal fusion, and other abnormalities detailed above. Unusual round structure superior to the upper pole left kidney posterior to the spleen, also described previously and unchanged, possibly an area of fatty infarction, unusual adrenal lesion, or an unusual accessory splenule. This is also stable since 2017. There is extensive pelvic deformity. There is marked abnormal soft tissue surrounding the rectum. There is a tract extending posteriorly from the distal rectum. Uncertain as whether this represents an otherwise normal but unusually positioned anus versus a fistula tract. Correlate with clinical findings. Extensive chronic appearing pelvic decubitus changes, with evidence of chronicosseous destruction of the sacrum and coccyx, appearing unchanged from prior study 08/23/2018. Discontinuous ventriculoperitoneal shunt tubing is again demonstrated. 2.2 cm calcified right lower pole thyroid nodule. Consider thyroid sonography for further evaluation Minimal anterior wall pericardial thickening versus fluid. Recurrent hypoxic respiratory failure 2ry to above -sp intubation 07/31/19 and extubation 08/11/19 -s/p intubation 07/12/19 and extubation 07/19/19 UTI , recurrent R hydronephrosis -09/01 u/A wbc 10-15, nit neg, leuk +2; Ucx 40-50k yeast -08/21 u/a wbc tnct, nit neg, leuk large; ucx >100k PsA (I Cefepime, Levaquin ; S Imipenem, Cipro) -08/11 ucx C. parapsilosis (colinzer) - 07/12 Ucx PsA (R Ceftazidime, levaquin; I Ciprofloxacin; otherwise S), VRE ( S Amp, linezolid) -07/11/19 u/a wbc tntc, nit neg, leuk +3; ucx PsA, ESBL E.coli, P. mirabilis S. mitis bacteremia- likely contaminant -07/28 Bcx 07/26 S. mitis; 07/29, 08/01, 08/03 Bcx neg HTN Dm2 spina bifida s/p STUD MASTER/MISTRESS shunt decubitis ulcers wheelchair bound/paraplegic b/l renal stents neurogenic bladder s/p suprapubic catheter recurrent UTIs Plan: -D/c PO Cipro #14 (abx d #15/) and monitor off abx -09/07 SP IV Vancomycin #15 09/06 SP Meropenem #14 -2/3 SP Amikacin #4 -2/ SP Cefepime and Flagyl #3 -08/11 SP Linezolid and Meropenem #15 -08/06 SP Micafungin #4 -f/u cx -Monitor CBC/CMP, temperatures -aspiration precautions -GI, pulm f/u -speech therapy recommending PEG, family is refusing -May need ADINA if recurrent bacteremia -URo eval -CXR Thank you for this consultation. Will continue to follow along with you. Subjective Allergies: Coded Allergies: LATEX (Verified Allergy, Severe, Rash on skin, 08/19/19) PENICILLIN G (Verified Allergy, Unknown, 12/02/18) Tolerates cabapenem, cephalosporin PENICILLINS (Unverified Allergy, Unknown, 12/02/18) Subjective afebrile mild leukocytosis Objective Vital Signs Last 24 Hour Vital Signs Date Time Temp Pulse Resp B/P (MAP) Pulse Ox O2 Delivery O2 Flow Rate FiO2 09/08/19 12:00 Nasal Cannula 3.0 Nasal Cannula 3.0 Nasal Cannula 3.0 09/08/19 12:00 3.0 09/08/19 11:29 96 18 100 Nasal Cannula 3.0 32 91 18 96 09/08/19 08:00 3.0 09/08/19 08:00 Nasal Cannula 3.0 Nasal Cannula 3.0 Nasal Cannula 3.0 09/08/19 08:00 97.7 98 20 118/58 (78) 98 09/08/19 07:39 97 09/08/19 07:17 82 20 100 Nasal Cannula 3.0 32 80 20 100 09/08/19 07:16 100 Nasal Cannula 3.0 32 09/08/19 04:00 97.8 86 20 119/57 (77) 98 09/08/19 04:00 Nasal Cannula 3.0 Nasal Cannula 3.0 Nasal Cannula 3.0 09/08/19 04:00 85 09/08/19 04:00 3.0 09/08/19 02:59 89 18 100 Nasal Cannula 3.0 32 88 20 96 09/08/19 00:00 3.0 09/08/19 00:00 98 09/08/19 00:00 97.7 94 20 122/70 (87) 98 09/08/19 00:00 Nasal Cannula 3.0 Nasal Cannula 3.0 Nasal Cannula 3.0 09/07/19 23:30 98 20 100 35 09/07/19 23:30 98 18 100 Nasal Cannula 3.0 32 99 20 98 09/07/19 20:00 102 09/07/19 20:00 98.7 104 20 136/60 (85) 97 09/07/19 20:00 Nasal Cannula 3.0 Nasal Cannula 3.0 Nasal Cannula 3.0 09/07/19 20:00 3.0 09/07/19 19:48 100 Nasal Cannula 3.0 32 09/07/19 19:48 98 18 100 Nasal Cannula 3.0 32 101 20 99 09/07/19 16:00 98.8 101 21 122/81 (95) 100 09/07/19 16:00 3.0 09/07/19 16:00 Nasal Cannula 3.0 Nasal Cannula 3.0 Nasal Cannula 3.0 09/07/19 15:57 93 18 100 Nasal Cannula 3.0 32 90 20 100 09/07/19 15:24 98 Height (Feet): 4 Height (Inches): 10.00 Weight (Pounds): 128 Objective General Appearance: not in distress, awake EENT: normal ENT inspection Neck: supple Cardiovascular: normal rate Respiratory/Chest: decreased breath sounds Abdomen: normal bowel sounds, non tender, soft, non distended Extremities: non-tender Laboratory Tests Test 09/08/19 10:14 Arterial Blood pH 7.437 (7.350-7.450) Arterial Blood Partial Pressure CO2 58.7 mmHg (35.0-45.0) *H Arterial Blood Partial Pressure O2 63.9 mmHg (75.0-100.0) L Arterial Blood HCO3 38.7 mmol/L (22.0-26.0) H Arterial Blood Oxygen Saturation 92.3 % (95-100) L Arterial Blood Base Excess 12.5 (-2-2) *H Gerard Test Positive Current Medications Medications (Trade) Dose Ordered Sig/Sandeep Route PRN Reason Start Time Stop Time Status Last Admin Dose Admin Acetaminophen (Tylenol) 650 mg Q4H PRN NG Mild Pain/Temp > 100.5 09/07/19 10:30 09/21/19 10:29 Acetylcysteine (Mucomyst) 400 mg Q4HRT N 09/07/19 11:00 09/15/19 10:59 09/08/19 11:17 Albuterol/ Ipratropium (Albuterol/ Ipratropium) 3 ml Q4HRT N 09/07/19 11:00 09/12/19 10:59 09/08/19 11:17 Apixaban (Eliquis) 5 mg BID NGT 09/07/19 18:00 09/11/19 17:59 09/08/19 08:48 Ciprofloxacin (Cipro 500mg tab) 500 mg EVERY 12 HOURS NG 09/07/19 21:00 09/08/19 20:59 09/08/19 08:48 Divalproex Sodium (Depakote Sprinkles) 500 mg Q12HR NG 09/07/19 21:00 09/14/19 20:59 09/08/19 08:47 Joaquina Hill M.D. Sep 08, 2019 12:19
--- NOTE | 2019-09-08 14:00 | NUR ---
NURSE NOTES: Called patient's next of kin on file twice: Karolyn and Quinn Rowe, no answer at this time.
--- NOTE | 2019-09-08 14:08 | Diagnostic Imaging Report ---
Indication: Cough Technique: One view of the chest Comparison: 08/28/2019 Findings: Again demonstrated is spinal fusion hardware and ventriculoperitoneal shunt tubing traversing the right chest and neck. There appears to be interim improvement of and airspace edema with minimal residual. The heart remains enlarged. Impression: Improving interstitial and airspace edema as compared to prior exam of 08/28/2019 with minimal residual Cardiomegaly Other stable findings as described
[2019-09-08 16:00] VITALS: BP 100/51
--- NOTE | 2019-09-08 17:09 | NUR ---
OXYGEN EQUIPMENT AIDE NOTES SPOKE WITH HAMMAD PT'S SISTER MADE AWARE THIS AM OF DC ORDER GIVEN. [facility] REQUESTED FOR ADDITIONAL MEDICAL EQUIPMENT AND HOME TRILOGY BIBAP SERVICED. PLACED A CALL TO [facility] MEDICAL OFFICE CLOSED TODAY DUE TO HOLIDAY, WILL FOLLOW UP IN AM. [facility] [phone]
--- NOTE | 2019-09-08 17:09 | Internal Med Progress Note ---
Subjective Date of Service: Sep 08, 2019 Physician Name Niraj Teixeira Attending Physician Wil Masters MD Current Medications Medications (Trade) Dose Ordered Sig/Sandeep Route PRN Reason Start Time Stop Time Status Last Admin Dose Admin Acetaminophen (Tylenol) 650 mg Q4H PRN NG Mild Pain/Temp > 100.5 09/07/19 10:30 09/21/19 10:29 Acetylcysteine (Mucomyst) 400 mg Q4HRT N 09/07/19 11:00 09/15/19 10:59 09/08/19 16:34 Albuterol/ Ipratropium (Albuterol/ Ipratropium) 3 ml Q4HRT HHN 09/07/19 11:00 09/12/19 10:59 09/08/19 16:34 Apixaban (Eliquis) 5 mg BID NGT 09/07/19 18:00 09/11/19 17:59 09/08/19 08:48 Divalproex Sodium (Depakote Sprinkles) 500 mg Q12HR NG 09/07/19 21:00 09/14/19 20:59 09/08/19 08:47 Allergies: Coded Allergies: LATEX (Verified Allergy, Severe, Rash on skin, 08/19/19) PENICILLIN G (Verified Allergy, Unknown, 12/02/18) Tolerates cabapenem, cephalosporin PENICILLINS (Unverified Allergy, Unknown, 12/02/18) ROS Limited/Unobtainable: Yes Subjective 49 YO F with pneumonia and respiratory failure. Extubated 08/11/19. Cover for Int Med-DR Masters. NICHOLE. Objective Last Vital Signs Date Time Temp Pulse Resp B/P (MAP) Pulse Ox O2 Delivery O2 Flow Rate FiO2 09/08/19 16:00 Nasal Cannula 3.0 Nasal Cannula 3.0 Nasal Cannula 3.0 09/08/19 16:00 97.7 90 16 100/51 (67) 95 09/08/19 11:29 32 Laboratory Tests Test 09/08/19 10:14 Arterial Blood pH 7.437 (7.350-7.450) Arterial Blood Partial Pressure CO2 58.7 mmHg (35.0-45.0) *H Arterial Blood Partial Pressure O2 63.9 mmHg (75.0-100.0) L Arterial Blood HCO3 38.7 mmol/L (22.0-26.0) H Arterial Blood Oxygen Saturation 92.3 % (95-100) L Arterial Blood Base Excess 12.5 (-2-2) *H Gerard Test Positive Intake and Output 09/07/19 09/08/19 19:00 07:00 Intake Total 1040 ml 500 ml Output Total 870 ml 110 ml Balance 170 ml 390 ml Intake Oral 1040 ml 500 ml Output Urine Total 870 ml 110 ml # Bowel Movements 2 Objective General Appearance: WD/WN, moderate distress EENT: PERRL/EOMI, normal ENT inspection Neck: non-tender, normal alignment, supple Cardiovascular: normal peripheral pulses, normal rate, regular rhythm, no gallop/murmur, no JVD Respiratory/Chest: Nasal canula; crackles/rales, rhonchi - bilaterally, expiratory wheezing Abdomen: normal bowel sounds, non tender, soft, no organomegaly, no mass Skin: normal pigmentation, warm/dry Assessment/Plan Problem List: (1) Respiratory failure with hypoxia Assessment & Plan: Tolerating venturi mask. S/P extubation 08/11/19 per pulmonary=Dr Bonilla (2) Pneumonia of both lower lobes Assessment & Plan: See ID note. Continue meropenem and vanco. (3) UTI (urinary tract infection) Assessment & Plan: Pseudamonas, ESBL E. Coli, and vanco resistant enterococcus. See ID note; Dr Sanabria signed off. Await new ID consult= Dr Buck/Milly. S/P meropenem, linezolid and micafugin (4) Sepsis (5) Paraplegia (6) Spina bifida Assessment/Plan Discharge plan: Family refused [facility]. Discharge home today- See discharge planning note Nriaj Teixeira MD Sep 08, 2019 17:09
--- NOTE | 2019-09-08 19:02 | NUR ---
HAND-OFF: Report given to EMMA Vallejo. Endorsed plan of care. Patient in stable condition.
--- NOTE | 2019-09-08 19:26 | NUR ---
NURSE NOTES: Report received from EMMA Gaytan. Observed pt lying in the bed, awake, A/O x1-2. SR on manager monitoring. On 3L with no SOB. No acute distress noted at this time. IV on L lower leg 22G, SL. Bed in the lowest position. Side rails up x3. Will continue to monitor.
[2019-09-08 20:00] VITALS: BP 119/78
--- NOTE | 2019-09-08 23:20 | NUR ---
NURSE NOTES: Pt report received from LAN RN SDU. Pt remains stable. pt is alert and oriented times 2, able to use call light or call fiore if need for assistance. pt is on bipap, satting at 100%, no acute resp distress noted. 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 pt bed is low, locked, armed, bed rails up times 3, call light and call fiore within reach. will follow plan of care.
--- NOTE | 2019-09-08 23:27 | NUR ---
HAND-OFF: Report given to EMMA Elizabeth. No distress noted at this time.
[2019-09-09] VITALS: BP 115/56
--- NOTE | 2019-09-09 00:05 | NUR ---
HAND-OFF: Report given to SO RI RN SDU. Pt remains stable.
--- NOTE | 2019-09-09 00:06 | NUR ---
NURSE NOTES: received pt from Glenn CARTER., pt is awake and AOx1, pt is currently on bipap 12/7 50% and O2 sat is at 97% without SOB. pt is Sinus rythm at this moment. suprapubic cath is in place and draining well with gravity. left leg 22G IV is intact, clean, and patent. call light within reach. bed at the lowest position, alarmed, and locked. will continue to monitor pt with plan of care.
--- NOTE | 2019-09-09 01:12 | NUR ---
NURSE NOTES: received pt from Glenn CARTER., pt is awake and AOx1, pt is currently on bipap / 50% and O2 sat is at 97% without SOB. pt is Sinus rythm at this moment. suprapubic cath is in place and draining well with gravity. left leg 22G IV is intact, clean, and patent. call light within reach. bed at the lowest position, alarmed, and locked. will continue to monitor pt with plan of care. Addendum: 09/09/19 at 0116 by ANA ROSA BRADLEY RN wrong time
[2019-09-09] MEDS: Acetylcysteine 20% Soln 4ml HHN SCH ×4 (03:00→14:39)
[2019-09-09] MEDS: Albuterol/Ipratropium 3ml neb HHN SCH ×4 (03:49→14:39)
[2019-09-09 04:00] VITALS: BP 130/81
[2019-09-09 05:07] LABS: ANION GAP 5 mmol/L (5-15); BLOOD UREA NITROGEN 12 mg/dL (7-18); CALCIUM 8.9 MG/DL (8.5-10.1); CARBON DIOXIDE 34 MMOL/L (21-32); CHLORIDE 104 MMOL/L (98-107); CREATININE 0.3 MG/DL (0.55-1.30); SODIUM 143 MMOL/L (136-145)
[2019-09-09 05:08] LABS: BASOPHILS % (AUTO) 0.7 % (0.0-2.0); EOSINOPHILS % (AUTO) 2.1 % (0.0-3.0); HEMATOCRIT 32.9 % (37.0-47.0); HEMOGLOBIN 10.5 G/DL (12.0-16.0); LYMPHOCYTES % (AUTO) 18.5 % (20.0-45.0); MEAN CORPUSCULAR VOLUME 78 FL (80-99); MONOCYTES % (AUTO) 3.8 % (1.0-10.0); NEUTROPHILS % (AUTO) 74.8 % (45.0-75.0); PLATELET COUNT 262 K/UL (150-450); RED BLOOD COUNT 4.21 M/UL (4.20-5.40); RED CELL DISTRIBUTION WIDTH 20.2 % (11.6-14.8); WHITE BLOOD COUNT 10.4 K/UL (4.8-10.8)
--- NOTE | 2019-09-09 06:00 | NUR ---
NURSE NOTES: provided oral care, provided new gown, repositioned Q 2hrs. no SOB noted. call light within reach.
--- NOTE | 2019-09-09 07:10 | NUR ---
HAND-OFF: Report given to Karlos RN. pt is in stable condition.
--- NOTE | 2019-09-09 07:11 | NUR ---
NURSE NOTES: Received patient from So Ri RN. Patient is awake, alert and oriented x3. Receiving oxygen via nasal cannula at 3L/min, patient showing no signs of respiratory distress. Suprapubic catheter is intact and draining. IV site is left leg 22g patent and asymptomatic. Bed is locked, placed in lowest position, side rails up x3, bed alarm on, call light within reach. Will continue to monitor.
[2019-09-09 08:00] VITALS: BP 124/82
--- NOTE | 2019-09-09 09:00 | NUR ---
RD ASSESSMENT & RECOMMENDATIONS SEE CARE ACTIVITY FOR COMPLETE ASSESSMENT DAILY ESTIMATED NEEDS: Needs based on wound, Pulmonary/ 47.6kg abw 25-30 kcals/kg 2461-7838 total kcals 1.25-2 g protein/kg 60-95 g total protein 25-30 mL/kg 8751-8959 total fluid mLs NUTRITION DIAGNOSIS: * Increased kcal/pro needs r/t wound healing as evidenced by h/o spina bifida, adm w/ full thickness wound @ sacrum-> resolving, and red and excoriated R-ischium. (UPDATED) * Swallowing difficulty R/T respiratory status as evidenced by re-intubated, now extubated, on and off Bipap, NGT feeds DC'd, pt cleared for puree texture diet w/ NTL. CURRENT DIET: Regular puree w/ NTL Glucerna TID PO DIET RECOMMENDATIONS: REGULAR, texture per APARTMENT COMMUNITY MANAGER ADDITIONAL RECOMMENDATIONS: 1) Wound care: add GREGG in 4oz H2O BID via NGT Add MVI x 1, VIT C 500mg daily 2) Maintain calibrated bed scale wts 3) NISS for BG control on TF - h/o DM 4) Monitor lytes daily, replete as needed. 5) W/ ORAL DIET ADD GLUCERNA TID
[2019-09-09] MEDS: Depakote 125mg Sprinkles NG SCH (09:07)
[2019-09-09] MEDS: Eliquis 5mg tablet NGT SCH (09:10)
--- NOTE | 2019-09-09 09:47 | NUR ---
NURSE NOTES: Late note: patient seen and assessed by Dr. Pearson approximately at 0930.
--- NOTE | 2019-09-09 10:00 | NUR ---
NURSE NOTES: Patient is resting comfortably in bed, denies any pain, no signs of acute distress. Will continue to monitor.
--- NOTE | 2019-09-09 10:14 | General Progress Note ---
Assessment/Plan Problem List: (1) Spina bifida ICD Codes: Q05.9 - Spina bifida, unspecified SNOMED: 82276117 Qualifiers: Qualified Codes: Q05.4 - Unspecified spina bifida with hydrocephalus (2) Respiratory failure with hypoxia ICD Codes: J96.91 - Respiratory failure, unspecified with hypoxia SNOMED: 99600997976772892 Qualifiers: Qualified Codes: J96.21 - Acute and chronic respiratory failure with hypoxia (3) Dysphagia ICD Codes: R13.10 - Dysphagia, unspecified SNOMED: 06896548, 721045283 (4) UTI (urinary tract infection) ICD Codes: N39.0 - Urinary tract infection, site not specified SNOMED: 27126467, 079616092 Qualifiers: Qualified Codes: N30.00 - Acute cystitis without hematuria (5) Paraplegia ICD Codes: G82.20 - Paraplegia, unspecified SNOMED: 93163917 (6) Anemia ICD Codes: D64.9 - Anemia, unspecified SNOMED: 726155914 Status: unchanged Assessment/Plan: ppi repeat labs fu H&H stool ob neg x1 reglan passed swallow eval tolerating diet abx per ID fu pulm recs CT reviewed will fu Subjective ROS Limited/Unobtainable: No Allergies: Coded Allergies: LATEX (Verified Allergy, Severe, Rash on skin, 08/19/19) PENICILLIN G (Verified Allergy, Unknown, 12/02/18) Tolerates cabapenem, cephalosporin PENICILLINS (Unverified Allergy, Unknown, 12/02/18) Objective Last 24 Hour Vital Signs Date Time Temp Pulse Resp B/P (MAP) Pulse Ox O2 Delivery O2 Flow Rate FiO2 09/09/19 08:00 93 09/09/19 07:01 80 18 100 Nasal Cannula 2.0 28 81 18 100 09/09/19 07:01 100 Nasal Cannula 2.0 28 09/09/19 04:00 98.0 93 22 130/81 (97) 98 09/09/19 04:00 3.0 09/09/19 04:00 Nasal Cannula 3.0 Nasal Cannula 3.0 Nasal Cannula 3.0 09/09/19 03:50 84 18 98 Nasal Cannula 3.0 32 82 18 95 09/09/19 03:18 87 09/09/19 00:00 50 09/09/19 00:00 98.7 92 16 115/56 (75) 94 09/09/19 00:00 Bi-pap Bi-pap Bi-pap 09/08/19 23:26 88 18 98 Nasal Cannula 3.0 32 86 18 94 09/08/19 23:03 87 09/08/19 22:45 89 17 97 35 09/08/19 20:00 100 Nasal Cannula 3.0 32 09/08/19 20:00 Nasal Cannula 3.0 Nasal Cannula 3.0 Nasal Cannula 3.0 09/08/19 20:00 3.0 09/08/19 20:00 86 18 99 Nasal Cannula 3.0 32 84 18 98 09/08/19 20:00 98.0 96 16 119/78 (92) 95 09/08/19 20:00 98 09/08/19 16:54 91 18 97 Nasal Cannula 3.0 32 92 18 94 09/08/19 16:00 Nasal Cannula 3.0 Nasal Cannula 3.0 Nasal Cannula 3.0 09/08/19 16:00 3.0 09/08/19 16:00 97.7 90 16 100/51 (67) 95 09/08/19 15:42 89 09/08/19 12:00 Nasal Cannula 3.0 Nasal Cannula 3.0 Nasal Cannula 3.0 09/08/19 12:00 98.7 104 20 115/54 (74) 97 09/08/19 12:00 3.0 09/08/19 11:30 101 09/08/19 11:29 96 18 100 Nasal Cannula 3.0 32 91 18 96 Intake and Output 09/08/19 09/09/19 19:00 07:00 Intake Total 600 ml 100 ml Output Total 1000 ml 600 ml Balance -400 ml -500 ml Intake Oral 600 ml 100 ml Output Urine Total 1000 ml 600 ml # Bowel Movements 2 4 Laboratory Tests 09/08/19 10:14: Arterial Blood pH 7.437, Arterial Blood Partial Pressure CO2 58.7*H, Arterial Blood Partial Pressure O2 63.9L, Arterial Blood HCO3 38.7H, Arterial Blood Oxygen Saturation 92.3L, Arterial Blood Base Excess 12.5*H, Gerard Test Positive 09/09/19 03:30: White Blood Count 10.4, Red Blood Count 4.21, Hemoglobin 10.5L, Hematocrit 32.9L , Mean Corpuscular Volume 78L, Mean Corpuscular Hemoglobin 24.9L, Mean Corpuscular Hemoglobin Concent 31.9L, Red Cell Distribution Width 20.2H, Platelet Count 262, Mean Platelet Volume 5.6L, Neutrophils (%) (Auto) 74.8, Lymphocytes (%) (Auto) 18.5L, Monocytes (%) (Auto) 3.8, Eosinophils (%) (Auto) 2.1, Basophils (%) (Auto) 0.7, Sodium Level 143, Potassium Level 4.0, Chloride Level 104, Carbon Dioxide Level 34H, Anion Gap 5, Blood Urea Nitrogen 12, Creatinine 0.3L, Estimat Glomerular Filtration Rate > 60, Glucose Level 97, Calcium Level 8.9 Height (Feet): 4 Height (Inches): 10.00 Weight (Pounds): 133 General Appearance: lethargic EENT: normal ENT inspection Neck: supple Cardiovascular: normal rate Respiratory/Chest: decreased breath sounds Abdomen: normal bowel sounds, non tender, soft Tim Davis MD Sep 09, 2019 10:14
--- NOTE | 2019-09-09 11:57 | NUR ---
MANGLE TENDER CLOTH NOTES SPOKE WITH RAH FROM [facility], PULSE OX MACHINE IS NOT A COVERED BENEFIT, FAMILY MUST PAY OUT OF POCKET.TRILOGY WAS SERVICED IN MAY, PT VISITS [facility] CL[facility] FOR MAINTENANCE. CALLED PT SISTER HAMMAD UNABLE TO LEAVE A MESSAGE, WILL FOLLOW UP WITH PHONE CALLS. PLACED A CALL TO PT'S BROTHER CHATO UNABLE TO LEAVE A MESSAGE WILL FOLLOW UP. HAMMAD [phone] CHATO [phone] [facility] [phone] Addendum: 09/09/19 at 1431 by CARLOS DELA CRUZ RN RN SPOKE WITH HAMMAD UPDATED ON REQUESTED INFORMATION ON THE PULSE OX MACHINE. PER HAMMAD SHE WILL BE HOME AFTER FIVE, NOTIFIED H[facility] WILL BE CALLING HER FOR AN APPOINTMENT. NURSE TO SET UP TRANSPORTATION FOR A ELECTROTYPER APPRENTICE @ 1700. ADDRESS VERIFIED.
[2019-09-09 12:00] VITALS: BP 117/60
--- NOTE | 2019-09-09 12:01 | Infectious Diseases Prog Note ---
Assessment/Plan Assessment/Plan Assessment: Sepsis, SP Persistent Gram positive bacteremia- suspect PICC line infection- persist despite removal picc line- -08/30, Bcx Neg 2d echo: no vegetations noted -08/27 PICC line removed; cath tip cx Neg Bcx 1/4 S. epi -08/22 Bcx 2/4 S.epi; 2/3 bcx Picc NTD, peripheral CONS Recurrent aspiration pneumonia -09/08 CXR: Improving interstitial and airspace edema as compared to prior exam of 08/28/2019 with minimal residual. Cardiomegaly. Other stable findings as described -08/29 video swallow: Positive for penetration of thin, honey thick, nectar thick liquid barium. -08/25 CXR:Suspicion of slightly worsening CHF -08/22 cXR: Possible mild pulmonary vascular congestion. No change from the prior study -08/21 sp cx S. aureus, MDR PsA (S Amikacin, Cipro/levo; R Cefepime, Meropenem) -08/18 cXR: The lungs remain clear. There may be some minimal basal atelectasis -08/14 CXR: Cardiomegaly. Mild interstitial congestion, unchanged over 3 days -07/31, 08/01 sp cx normal resp sunny -07/12 sp cx normal -07/12 SP FLEXIBLE FIBEROPTIC BRONCHOSCOPY WITH BRONCHOALVEOLAR LAVAGE AND THERAPEUTIC ASPIRATION OF MUCOUS PLUG LEFT LUNG -07/11/20 CXR: Bilateral pulmonary edema/infiltrates. Possible small pleural effusions. Fever, recurrent- resolved Leukocytosis, recurrent; SP -09/[address] c/abd/p w/: Basilar pulmonary atelectasis and possibly patchy consolidation in the bilateral posterior lower lobes. Borderline cardiomegaly. Moderate right hydronephrosis and enlargement of the right kidney, despite apparent satisfactory position of a right nephroureteral stent. Possibility of stent dysfunction should be considered. Atrophic left kidney. Left nephroureteral stent in place, no hydronephrosis. Bilateral renal calyceal and parenchymal calcifications, also previously reported. Extensive chronic skeletal deformity, with evidence of spinal dysraphism, scoliosis, evidence of prior spinal fusion, and other abnormalities detailed above. Unusual round structure superior to the upper pole left kidney posterior to the spleen, also described previously and unchanged, possibly an area of fatty infarction, unusual adrenal lesion, or an unusual accessory splenule. This is also stable since 2017. There is extensive pelvic deformity. There is marked abnormal soft tissue surrounding the rectum. There is a tract extending posteriorly from the distal rectum. Uncertain as whether this represents an otherwise normal but unusually positioned anus versus a fistula tract. Correlate with clinical findings. Extensive chronic appearing pelvic decubitus changes, with evidence of chronicosseous destruction of the sacrum and coccyx, appearing unchanged from prior study 08/23/2018. Discontinuous ventriculoperitoneal shunt tubing is again demonstrated. 2.2 cm calcified right lower pole thyroid nodule. Consider thyroid sonography for further evaluation Minimal anterior wall pericardial thickening versus fluid. Recurrent hypoxic respiratory failure 2ry to above -sp intubation 07/31/19 and extubation 08/11/19 -s/p intubation 07/12/19 and extubation 07/19/19 UTI , recurrent, sp rx R hydronephrosis -09/01 u/A wbc 10-15, nit neg, leuk +2; Ucx 40-50k yeast -08/21 u/a wbc tnct, nit neg, leuk large; ucx >100k PsA (I Cefepime, Levaquin ; S Imipenem, Cipro) -08/11 ucx C. parapsilosis (colinzer) - 07/12 Ucx PsA (R Ceftazidime, levaquin; I Ciprofloxacin; otherwise S), VRE ( S Amp, linezolid) -07/11/19 u/a wbc tntc, nit neg, leuk +3; ucx PsA, ESBL E.coli, P. mirabilis S. mitis bacteremia- likely contaminant -07/28 Bcx 07/26 S. mitis; 07/29, 08/01, 08/03 Bcx neg HTN Dm2 spina bifida s/p CRTTS shunt decubitis ulcers wheelchair bound/paraplegic b/l renal stents neurogenic bladder s/p suprapubic catheter recurrent UTIs Plan: -Cont to monitor off abx -09/08 SP Cipero #14 -09/07 SP IV Vancomycin #15 09/06 SP Meropenem #14 -2/ SP Amikacin #4 -2/ SP Cefepime and Flagyl #3 -08/11 SP Linezolid and Meropenem #15 -08/06 SP Micafungin #4 -f/u cx -Monitor CBC/CMP, temperatures -aspiration precautions -GI, pulm f/u -speech therapy recommending PEG, family is refusing -May need ADINA if recurrent bacteremia -URof/u Thank you for this consultation. Will continue to follow along with you. Subjective Allergies: Coded Allergies: LATEX (Verified Allergy, Severe, Rash on skin, 08/19/19) PENICILLIN G (Verified Allergy, Unknown, 12/02/18) Tolerates cabapenem, cephalosporin PENICILLINS (Unverified Allergy, Unknown, 12/02/18) Subjective afebrile mild leukocytosis resolved Objective Vital Signs Last 24 Hour Vital Signs Date Time Temp Pulse Resp B/P (MAP) Pulse Ox O2 Delivery O2 Flow Rate FiO2 09/09/19 10:31 87 18 99 Nasal Cannula 3.0 32 86 18 99 09/09/19 08:00 3.0 09/09/19 08:00 93 09/09/19 08:00 Nasal Cannula 3.0 Nasal Cannula 3.0 Nasal Cannula 3.0 09/09/19 08:00 98.1 90 16 124/82 (96) 97 09/09/19 07:01 80 18 100 Nasal Cannula 2.0 28 81 18 100 09/09/19 07:01 100 Nasal Cannula 2.0 28 09/09/19 04:00 98.0 93 22 130/81 (97) 98 09/09/19 04:00 3.0 09/09/19 04:00 Nasal Cannula 3.0 Nasal Cannula 3.0 Nasal Cannula 3.0 09/09/19 03:50 84 18 98 Nasal Cannula 3.0 32 82 18 95 09/09/19 03:18 87 09/09/19 00:00 50 09/09/19 00:00 98.7 92 16 115/56 (75) 94 09/09/19 00:00 Bi-pap Bi-pap Bi-pap 09/08/19 23:26 88 18 98 Nasal Cannula 3.0 32 86 18 94 09/08/19 23:03 87 09/08/19 22:45 89 17 97 35 09/08/19 20:00 100 Nasal Cannula 3.0 32 09/08/19 20:00 Nasal Cannula 3.0 Nasal Cannula 3.0 Nasal Cannula 3.0 09/08/19 20:00 3.0 09/08/19 20:00 86 18 99 Nasal Cannula 3.0 32 84 18 98 2/17/20 20:00 98.0 96 16 119/78 (92) 95 09/08/19 20:00 98 09/08/19 16:54 91 18 97 Nasal Cannula 3.0 32 92 18 94 09/08/19 16:00 Nasal Cannula 3.0 Nasal Cannula 3.0 Nasal Cannula 3.0 09/08/19 16:00 3.0 09/08/19 16:00 97.7 90 16 100/51 (67) 95 09/08/19 15:42 89 09/08/19 12:00 Nasal Cannula 3.0 Nasal Cannula 3.0 Nasal Cannula 3.0 09/08/19 12:00 98.7 104 20 115/54 (74) 97 09/08/19 12:00 3.0 Height (Feet): 4 Height (Inches): 10.00 Weight (Pounds): 133 Objective General Appearance: not in distress, awake EENT: normal ENT inspection Neck: supple Cardiovascular: normal rate, normal S1, S2 Respiratory/Chest: decreased breath sounds Abdomen: normal bowel sounds, non tender, soft, non distended Extremities: non-tender Laboratory Tests Test 09/09/19 03:30 White Blood Count 10.4 K/UL (4.8-10.8) Red Blood Count 4.21 M/UL (4.20-5.40) Hemoglobin 10.5 G/DL (12.0-16.0) L Hematocrit 32.9 % (37.0-47.0) L Mean Corpuscular Volume 78 FL (80-99) L Mean Corpuscular Hemoglobin 24.9 PG (27.0-31.0) L Mean Corpuscular Hemoglobin Concent 31.9 G/DL (32.0-36.0) L Red Cell Distribution Width 20.2 % (11.6-14.8) H Platelet Count 262 K/UL (150-450) Mean Platelet Volume 5.6 FL (6.5-10.1) L Neutrophils (%) (Auto) 74.8 % (45.0-75.0) Lymphocytes (%) (Auto) 18.5 % (20.0-45.0) L Monocytes (%) (Auto) 3.8 % (1.0-10.0) Eosinophils (%) (Auto) 2.1 % (0.0-3.0) Basophils (%) (Auto) 0.7 % (0.0-2.0) Sodium Level 143 MMOL/L (136-145) Potassium Level 4.0 MMOL/L (3.5-5.1) Chloride Level 104 MMOL/L (98-107) Carbon Dioxide Level 34 MMOL/L (21-32) H Anion Gap 5 mmol/L (5-15) Blood Urea Nitrogen 12 mg/dL (7-18) Creatinine 0.3 MG/DL (0.55-1.30) L Estimat Glomerular Filtration Rate > 60 mL/min (>60) Glucose Level 97 MG/DL (74-106) Calcium Level 8.9 MG/DL (8.5-10.1) Current Medications Medications (Trade) Dose Ordered Sig/Sandeep Route PRN Reason Start Time Stop Time Status Last Admin Dose Admin Acetaminophen (Tylenol) 650 mg Q4H PRN NG Mild Pain/Temp > 100.5 09/07/19 10:30 09/21/19 10:29 Acetylcysteine (Mucomyst) 400 mg Q4HRT N 09/07/19 11:00 09/15/19 10:59 09/09/19 10:35 Albuterol/ Ipratropium (Albuterol/ Ipratropium) 3 ml Q4HRT N 09/07/19 11:00 09/12/19 10:59 09/09/19 10:35 Apixaban (Eliquis) 5 mg BID NGT 09/07/19 18:00 09/11/19 17:59 09/09/19 09:10 Divalproex Sodium (Depakote Sprinkles) 500 mg Q12HR NG 09/07/19 21:00 09/14/19 20:59 09/09/19 09:07 Joaquina Hill M.D. Sep 09, 2019 12:01
--- NOTE | 2019-09-09 12:43 | Pulmonology Progress Note ---
Assessment/Plan Problems: (1) Pneumonia of both lower lobes (2) Respiratory failure with hypoxia (3) UTI (urinary tract infection) (4) Paraplegia (5) Restrictive lung disease due to kyphoscoliosis (6) Pulmonary edema (7) Spina bifida Assessment/Plan Optimize pulmonary hygiene/mobilize as tolerated Titrate O2 Nocturnal NIPPV HHN's and NAC Off Abx per ID NPO, NGTF's, CHANGE OF ADDRESS CLERK therapy Monitor volumes and renal function DVT Px: Eliquis FC Subjective Allergies: Coded Allergies: LATEX (Verified Allergy, Severe, Rash on skin, 08/19/19) PENICILLIN G (Verified Allergy, Unknown, 12/02/18) Tolerates cabapenem, cephalosporin PENICILLINS (Unverified Allergy, Unknown, 12/02/18) Subjective AFVSS O2 needs stable + CO2 retention used BiPAP ON cough stable denies SOB Objective Last 24 Hour Vital Signs Date Time Temp Pulse Resp B/P (MAP) Pulse Ox O2 Delivery O2 Flow Rate FiO2 09/09/19 10:31 87 18 99 Nasal Cannula 3.0 32 86 18 99 09/09/19 08:00 3.0 09/09/19 08:00 93 09/09/19 08:00 Nasal Cannula 3.0 Nasal Cannula 3.0 Nasal Cannula 3.0 09/09/19 08:00 98.1 90 16 124/82 (96) 97 09/09/19 07:01 80 18 100 Nasal Cannula 2.0 28 81 18 100 09/09/19 07:01 100 Nasal Cannula 2.0 28 09/09/19 04:00 98.0 93 22 130/81 (97) 98 09/09/19 04:00 3.0 09/09/19 04:00 Nasal Cannula 3.0 Nasal Cannula 3.0 Nasal Cannula 3.0 09/09/19 03:50 84 18 98 Nasal Cannula 3.0 32 82 18 95 09/09/19 03:18 87 09/09/19 00:00 50 09/09/19 00:00 98.7 92 16 115/56 (75) 94 09/09/19 00:00 Bi-pap Bi-pap Bi-pap 09/08/19 23:26 88 18 98 Nasal Cannula 3.0 32 86 18 94 09/08/19 23:03 87 09/08/19 22:45 89 17 97 35 09/08/19 20:00 100 Nasal Cannula 3.0 32 09/08/19 20:00 Nasal Cannula 3.0 Nasal Cannula 3.0 Nasal Cannula 3.0 09/08/19 20:00 3.0 09/08/19 20:00 86 18 99 Nasal Cannula 3.0 32 84 18 98 09/08/19 20:00 98.0 96 16 119/78 (92) 95 09/08/19 20:00 98 09/08/19 16:54 91 18 97 Nasal Cannula 3.0 32 92 18 94 09/08/19 16:00 Nasal Cannula 3.0 Nasal Cannula 3.0 Nasal Cannula 3.0 09/08/19 16:00 3.0 09/08/19 16:00 97.7 90 16 100/51 (67) 95 09/08/19 15:42 89 Intake and Output 09/08/19 09/09/19 19:00 07:00 Intake Total 600 ml 100 ml Output Total 1000 ml 600 ml Balance -400 ml -500 ml Intake Oral 600 ml 100 ml Output Urine Total 1000 ml 600 ml # Bowel Movements 2 4 General Appearance: no acute distress HEENT: normocephalic, atraumatic Respiratory/Chest: rhonchi Cardiovascular: normal peripheral pulses, normal rate, regular rhythm Abdomen: normal bowel sounds, soft, non tender, no organomegaly, non distended , no mass Extremities: no cyanosis, no clubbing, no edema Laboratory Tests 09/09/19 03:30: White Blood Count 10.4, Red Blood Count 4.21, Hemoglobin 10.5L, Hematocrit 32.9L , Mean Corpuscular Volume 78L, Mean Corpuscular Hemoglobin 24.9L, Mean Corpuscular Hemoglobin Concent 31.9L, Red Cell Distribution Width 20.2H, Platelet Count 262, Mean Platelet Volume 5.6L, Neutrophils (%) (Auto) 74.8, Lymphocytes (%) (Auto) 18.5L, Monocytes (%) (Auto) 3.8, Eosinophils (%) (Auto) 2.1, Basophils (%) (Auto) 0.7, Sodium Level 143, Potassium Level 4.0, Chloride Level 104, Carbon Dioxide Level 34H, Anion Gap 5, Blood Urea Nitrogen 12, Creatinine 0.3L, Estimat Glomerular Filtration Rate > 60, Glucose Level 97, Calcium Level 8.9 Current Medications Medications (Trade) Dose Ordered Sig/Sandeep Route PRN Reason Start Time Stop Time Status Last Admin Dose Admin Acetaminophen (Tylenol) 650 mg Q4H PRN NG Mild Pain/Temp > 100.5 09/07/19 10:30 09/21/19 10:29 Acetylcysteine (Mucomyst) 400 mg Q4HRT N 09/07/19 11:00 09/15/19 10:59 09/09/19 10:35 Albuterol/ Ipratropium (Albuterol/ Ipratropium) 3 ml Q4HRT N 09/07/19 11:00 09/12/19 10:59 09/09/19 10:35 Apixaban (Eliquis) 5 mg BID NGT 09/07/19 18:00 09/11/19 17:59 09/09/19 09:10 Divalproex Sodium (Depakote Sprinkles) 500 mg Q12HR NG 09/07/19 21:00 09/14/19 20:59 09/09/19 09:07 Regino Pearson MD Sep 09, 2019 12:43
--- NOTE | 2019-09-09 14:54 | NUR ---
NURSE NOTES: Fed patient lunch, patient ate 100% of lunch. Denies any pain, no signs of acute distress. Will continue to monitor.
[2019-09-09 16:00] VITALS: BP 107/69
[2019-09-09] MEDS ORDERED: NS 275ml ONE (18:16)
--- NOTE | 2019-09-09 19:15 | Progress Note ---
DATE: 09/09/2019 SUBJECTIVE: The patient is in step-down now. Sleep and appetite is adequate. No behavior issues noted. Calm and no acute distress. Has episodes of anxiety. MENTAL STATUS EXAMINATION: Alert and oriented times self 2 to 3. Mood is anxious. Affect is constricted, congruent with mood. Thought process is concrete. Thought content, no suicidal or homicidal ideation. Cognition is impaired. Insight and judgment is impaired. PLAN: 1. Depakote 500 mg twice a day. 2. She may benefit from Ativan as needed if anxiety gets worse. Kobi Reyes M.D. DR: SAMANTHA JOB#: [id number] CC:
--- NOTE | 2019-09-10 21:21 | Discharge Summary ---
Discharge Summary Discharge Summary _ DATE OF ADMISSION: 07/11/2019 DATE OF DISCHARGE: 09/09/2019 DISCHARGED BY: Dr. Herron REASON FOR ADMISSION: 49 years old female with history of spina bifida, status post SHIRT MARKER shunt, wheelchair-bound, paraplegia, status post bilateral renal stents and suprapubic catheter, presented with omplaint of shortness of breath with onset of symptoms just prior to arrival. Patient appeared to be choking and pale per paramedics. Pulse oximetry was 88% on room air. Patient was placed on supplemental oxygen and brought for evaluation to emergency department. Upon evaluation patient was in respiratory distress. Laboratory work-up was unremarkable. Patient received nebulizing treatment with bronchodilator. Chest x-ray demonstrated bilateral pulmonary edema/infiltrate and possible small pleural effusion. Patient started on empiric antibiotic and admitted for further management. CONSULTANTS: pulmonary ID specialist Dr. Hill urologist Dr. Devi, Dr Jurado, GI specialist Dr. Davis psychiatrist [facility] COURSE: Patient admitted and started on IV fluids and empiric antibiotics. Patient initially was placed on nasal cannula . ABG revealed respiratory failure and hypercapnia. Patient was subsequently placed on the BiPAP. Repeated ABG showed worsening CO2 retention. Emergency room doctor was called for intubation , and patient subsequently undergone oral intubation on 07/12. Ventilator support and pulmonary toilet provided. Patient was followed-up with ABG and chest x-ray. Chest x-ray on 07/12 revealed persistent diffuse hazy opacity throughout the lungs, slightly decreased in the right lung , possible small bilateral pleural effusion and confirmed placement of ET tube . Patient undergone 07/12 flexible fiberoptic bronchoscopy with bronchoalveolar lavage and therapeutic aspiration of mucous plug left lung. /Patient tolerated procedure well. Patient started on weaning protocol. Hemodynamic status was closely monitored. Patient continued on IV fluid. Patient started on empiric antibiotic as per ID specialist recommendation. NG tube was inserted , and patient started on tube feeding. Anticoagulation with Eliquis and Protonix continued. Urine culture revealed Proteus Pseudomonas and E. coli ESBL. Blood culture was negative. Repeated urine culture revealed Pseudomonas and Enterococcus faecalis . Antibiotic optimized as per ID recommendation. PICC line was placed by interventional radiology. Patient was followed-up with a chest x-ray. Patient was able to be extubated on 07/19. Supplemental oxygen provided and titrated to keep pulse oximetry above 92%. Pulmonary toilet provided. Urology seen patient upon admission . Suprapubic catheter was recently up-sized recently changed. Urologist recommended change suprapubic catheter every 4 to 6 weeks. Patient failed bedside and video swallow evaluation. Patient with a high risk for silent aspiration. Speech therapist recommended NG tube and diet for quality of life . Diet texture provided as per speech therapist recommendation with strict aspiration precautions and 1 to 1 feeding. On 07/31 emergency room physician was called to ICU for intubation. Patient at that time was on the BiPAP and appeared to be in moderate respiratory distress with pulse oximetry in the 80s. Patient subsequently was intubated. Chest x-ray confirmed placement of chest tube; noted left-sided opacification. Ventilator support and pulmonary toilet provided. Patient was followed -up with ABG and chest x-ray. Patient was recultured at that time. Sputum culture was negative ; blood cultures were negative, and urine culture revealed [place]. Suprapubic catheter was changed by urologist 08/08. Patient started on weaning protocol and was able to be extubated on 08/11. Noted minimally elevated d-dimer. Unlikely VTE since patient was already on NOAC /Eliquis. Venous duplex bilateral lower extremity was however ordered, and was negative for acute DVT. GI specialist consulted for dysphagia and possible placement of G tube. Family refused G-tube placement. Patient received feeding via NG tube. Strict aspiration /reflux precaution maintained. Tube feeding formula with goal rate and protein supplements provided as per travel registered nurse pacu recommendation. Patient was continued to have leukocytosis , patient recultured again . Patient continued to show recurrent aspiration pneumonia. Sputum culture on 08/21 revealed Pseudomonas and MRSA. Urine culture on 08/21 revealed Pseudomonas aeruginosa . Blood culture revealed Staph epidermidis. Repeated blood culture on 08/25 revealed Staph coagulase negative, probably contaminant. PICC line was removed and culture of the catheter tip revealed no evidence of growth. Repeated blood culture on 08/27 showed Staph epidermidis . Patient continue antibiotic as per ID recommendation. Blood culture on 08/30 and 08/31 revealed no evidence of growth. Stool for C. difficile was negative. Last urine culture revealed [place]. Leukocytosis eventually resolved. Patient afebrile. Patient completed antibiotics while in the hospital. ID specialist recommended to monitor patient off antibiotics. During the stay patient had multiply courses of antibiotics. Aspiration precaution were strictly maintained. Atmospheric Physics Professor recommended nocturnal NIPPV. GI prophylaxis provided. Hemoglobin and hematocrit were closely monitored with goal to keep hemoglobin above 7. Stool for occult blood was negative. Patient may need PEG, however the family was refusing, as mentioned above. Symptomatic care provided. Another swallow evaluation was done after patient stabilized , and patient was able to pass it. Diet texture provided as per speech therapist recommendation with strict aspiration /reflux precaution and one-to-one supervision. CT scan of the abdomen and pelvis revealed no GI pathology Urologist evaluated patient for double-J stent and right hydronephrosis. Per urologist patient indeed had a bilateral ureteral stent. Patient was not a surgical candidate at this point due to her condition of the lungs and other multiply general issues. Creatinine remained stable. Patient had no signs of acute renal failure . Urologist recommended follow-up with primary urologist for planned ureteral stent exchange. No intervention at this point was recommended. Psychiatrist followed. Psychiatric medication regimen was optimized. Recurrent fevers and leukocytosis resolved. Last chest x-ray revealed improved interstitial and airspace edema. Patient clinically stabilized and was ready for discharge home with home health services. FINAL DIAGNOSES: Sepsis Persistent gram-positive bacteremia Recurrent aspiration pneumonia Bilateral pneumonia Acute on chronic recurrent hypercapnic and hypoxemic respiratory failure requiring intubation x 2, status post successful extubation Catheter associated urinary tract infection Spina bifida Chronic suprapubic catheter Neurogenic bladder secondary to spina bifida Paraplegia Restrictive lung disease due to kyphoscoliosis Decubitus skin ulcer Bilateral ureteral J stent Right hydronephrosis Anxiety disorder Developmental disability DISCHARGE MEDICATIONS: See Medication Reconciliation list. DISCHARGE INSTRUCTIONS: Patient was discharged home with home health services. Follow up with primary care provider in one week. I have been assigned to dictate discharge summary for this account. I was not involved in the patient's management. Trinh Muñiz NP Sep 10, 2019 21:21
== END 2019-09-09 18:17 | disposition home health service (06) | DRG 853 ==
LOC: EDBD 21:27 → EMR 21:50 → 2E 23:04 → EDBEDREQ 23:44 → 2E 07-12 02:32 → ICU 07-12 12:01 → 2E 07-20 12:10 → 2W 07-27 21:45 → ICU 07-31 12:32 → 2E 08-22 18:42 → ICU 08-22 19:11 → 2W 09-07 10:23
PROC: 0BH17EZ Insertion of Endotracheal Airway into Trachea, Via Natural or Artificial Opening (ICD-10-PCS; principal; 2019-07-12)
PROC: 0B9L8ZX Drainage of Left Lung, Via Natural or Artificial Opening Endoscopic, Diagnostic (ICD-10-PCS; principal; 2019-07-12)
PROC: 5A1955Z Respiratory Ventilation, Greater than 96 Consecutive Hours (ICD-10-PCS; principal; 2019-07-12)
PROC: 0WCQ8ZZ Extirpation of Matter from Respiratory Tract, Via Natural or Artificial Opening Endoscopic (ICD-10-PCS; principal; 2019-07-12)
PROC: B548ZZA Ultrasonography of Superior Vena Cava, Guidance (ICD-10-PCS; 2019-07-14)
PROC: 02HV33Z Insertion of Infusion Device into Superior Vena Cava, Percutaneous Approach (ICD-10-PCS; 2019-07-14)
PROC: 0BH17EZ Insertion of Endotracheal Airway into Trachea, Via Natural or Artificial Opening (ICD-10-PCS; 2019-07-31)
PROC: 5A1955Z Respiratory Ventilation, Greater than 96 Consecutive Hours (ICD-10-PCS; 2019-07-31)
DX: A41.9 Sepsis, unspecified organism (principal); J69.0 Pneumonitis due to inhalation of food and vomit; J18.9 Pneumonia, unspecified organism; J96.22 Acute and chronic respiratory failure with hypercapnia; J96.21 Acute and chronic respiratory failure with hypoxia; T83.510A Infection and inflammatory reaction due to cystostomy catheter, initial encounter; G82.20 Paraplegia, unspecified; N13.30 Unspecified hydronephrosis; Z99.11 Dependence on respirator [ventilator] status; Q05.9 Spina bifida, unspecified; Z74.01 Bed confinement status; Z99.3 Dependence on wheelchair; N31.9 Neuromuscular dysfunction of bladder, unspecified; M41.9 Scoliosis, unspecified; L89.159 Pressure ulcer of sacral region, unspecified stage; F89 Unspecified disorder of psychological development; R13.10 Dysphagia, unspecified; Z86.711 Personal history of pulmonary embolism; Z79.01 Long term (current) use of anticoagulants
CPT/HCPCS: 36415; 36569; 36600; 71045; 71260; 74018; 74177; 74230; 76937; 80048; 80053; 80061; 80150; 80202; 81003; 82270; 82553; 82803; 82962; 83036; 83540; 83550; 83605; 83735; 83880; 84100; 84443; 84484; 85007; 85025; 85379; 85610; 85730; 86703; 86850; 86900; 86901; 86920; 87040; 87070; 87081; 87086; 87181; 87205; 87324; 92610; 93005; 93306; 93970; 94002; 94003; 94640; 94660; 94664; 96361; 96365; 96367; 99285; J7030; J7620; J8499